=== PATIENT | male | born 1950 | race Caucasian/White ===

== ENCOUNTER 2020-03-17 13:43 | Outpatient (CLI) | payer MEDICARE, OTHER, SELFPAY ==
--- NOTE | ~2020-03-17 | CT_ITS ---
EXAMINATION: CT chest abdomen pelvis wo con DATE: 03/17/2020 14:45 INDICATION: Shortness of breath, cough, weight loss. Generalized abdominal pain. Smoker. History of COPD. History of lung and laryngeal cancer. TECHNIQUE: Computed tomography (CT) of the chest, abdomen, and pelvis was performed without intraveno us contrast. Automated exposure control and iterative reconstruction technique were employed. Exam do se: 721.17 mGy-cm total exam DLP. COMPARISON: 09/21/2018 CTA abdomen 02/15/2018 two-view chest FINDINGS: CHEST CT: Status post sternotomy. Aortic, great vessel and coronary artery calcifications. The ascending aorta measures up to approximately 4.2 cm diameter. The aortic arch and descending tho racic aorta measure 2.9 cm diameter. There is old pulmonary granulomatous disease, including calcified pulmonary, hepatic and splenic gran ulomas, calcified left hilar and mediastinal nodes. No hilar or mediastinal mass lesion or lymphadenopathy is detected. Mild right apical scarring. Mild emphysema. There is mild discoid scarring or less likely atelectasis in the left upper lobe. No pulmonary infilt rate or consolidation or suspicious pulmonary mass lesion is evident. ABDOMEN/PELVIS CT: Status post cholecystectomy. No hepatic, splenic, pancreatic, and adrenal or renal space-occupying mass lesion is evident on this limited noncontrast examination. Nonobstructing 3 mm right renal calculus. No ureteral calculus or hydroureteronephrosis. There is prominent prostate enlargement as well as some prostate calcification. There is diffuse prom inent thickening of the urinary bladder wall, likely due to prostatomegaly and associated bladder out let obstruction. The infrarenal abdominal aorta measures up to 3.7 cm diameter. There is extensive calcification of th e abdominal aorta and iliac and femoral arteries. There is prominent celiac and superior mesenteric a rtery calcification and prominent calcification of the proximal renal arteries. No intraperitoneal or retroperitoneal or pelvic mass lesion or adenopathy or ascites is evident. There is mild proximal small bowel dilatation, measuring up to 3.4 cm diameter. There is gaseous dist ention of multiple small bowel segments and some fluid levels in the mid to distal small bowel. There is a prominent amount of fecal material throughout the colon. Diffuse idiopathic skeletal hyperostosis of the thoracic spine. There is severe multilevel degenerati ve disc disease of the lumbar spine IMPRESSION: Status post sternotomy Status post cholecystectomy 4.2 cm diameter ascending aorta Mild emphysema Mild discoid atelectasis or more likely scarring Nonobstructing 3 mm right renal calculus Prostate enlargement and calcification with associated bladder wall thickening 3.7 cm infrarenal abdominal aortic aneurysm Nonspecific mild small bowel dilatation and air-fluid levels Prominent amount of fecal material throughout the colon Reviewed, dictated and finalized at [facility]. Reviewed, dictated and finalized at location B. ICAL QUALITY RN
--- NOTE | ~2020-03-17 | US_ITS ---
EXAMINATION: US venous doppler LE EXAM DATE: 03/17/2020 14:35 INDICATION: Localized left leg edema. TECHNIQUE: Multiple grayscale, color flow and Doppler images of the lower extremity deep venous syste ms bilaterally were obtained and reviewed. There is no prior study for comparison. FINDINGS: Right side: The right common femoral, femoral and profunda veins demonstrate normal color flow, respi ratory variation, augmentation and compressibility. Compressibility, color flow confirmed within the right popliteal, posterior tibial, peroneal, and greater saphenous veins. Left side: The left common femoral, femoral and profunda veins demonstrate normal color flow, respira tory variation, augmentation and compressibility. Compressibility, color flow confirmed within the l eft popliteal, posterior tibial, peroneal, and greater saphenous veins. IMPRESSION: 1. No lower extremity deep venous thrombosis bilaterally. Reviewed, dictated and finalized at location A. ORATOR OPERATOR OIL WELL
== END 2020-03-17 13:44 | disposition home or self-care (01) ==
PROVIDERS: PCP Nurse Practitioner Adult Health; Visit Provider Nurse Practitioner Adult Health
DX: R10.9 Unspecified abdominal pain (principal); R63.4 Abnormal weight loss; R60.0 Localized edema; Z90.49 Acquired absence of other specified parts of digestive tract; J43.9 Emphysema, unspecified; N20.0 Calculus of kidney; I71.4 Abdominal aortic aneurysm, without rupture; N40.0 Benign prostatic hyperplasia without lower urinary tract symptoms
CPT/HCPCS: 71250; 74176; 93971

== ENCOUNTER → 2020-08-02 05:41 | Outpatient (CLI) | payer MEDICARE, OTHER, SELFPAY ==
[2020-08-02 19:34] LABS: SARS-CoV-2 RNA PCR Negative
== END ==
PROVIDERS: PCP Nurse Practitioner Adult Health; Visit Provider Surgery
DX: Z01.812 Encounter for preprocedural laboratory examination (principal); Z20.822 Contact with and (suspected) exposure to COVID-19
CPT/HCPCS: C9803; U0003; U0005

== ENCOUNTER 2020-08-02 09:31 | Outpatient (CLI) | payer MEDICARE, OTHER, SELFPAY ==
--- NOTE | 2020-08-02 09:51 | ECG_ITS ---
Measurements Intervals [place] Rate: 71 P: 64 DE: 178 QRS: 21 QRSD: 106 T: 81 QT: 382 QTc: 416 Interpretive Statements SINUS RHYTHM ATRIAL PREMATURE COMPLEXES NONSPECIFIC T-WAVE ABNORMALITY- LAT/HIGH LAT LEADS BASELINE ARTIFACT- I, II, V5 BORDERLINE ECG Electronically Signed On 08-02-2020 11:32:56 CDT by Shady Reyes D.O.
== END 2020-08-02 09:32 | disposition home or self-care (01) ==
PROVIDERS: PCP Nurse Practitioner Adult Health; Visit Provider Anesthesiology
DX: I51.9 Heart disease, unspecified (principal); R94.31 Abnormal electrocardiogram [ECG] [EKG]
CPT/HCPCS: 93005; C9803; U0003; U0005

== ENCOUNTER 2020-08-06 01:45 | Day surgery (SDC) | payer MEDICARE, OTHER, SELFPAY ==
[2020-07-30 13:29] VITALS: BMI 22.4
--- NOTE | 2020-08-06 07:02 | WPDHPUPDATE1 ---
History and Physical Update Update Date/Time: 08/06/20 07:02 History and Physical has been reviewed, including an updated exam of the patient. There are NO changes in the patient's condition. Risks, benefits, and alternatives have been discussed and questions answered. Patient agrees to proceed with procedure.
[2020-08-06 10:27] VITALS: BP 93/53; PULSE 83; RESP 18; TEMP 37.7; O2SAT 99
[2020-08-06] MEDS: ACETAMINOPHEN 500 MG TABLET 1000 MG PO (10:55)
[2020-08-06] MEDS: KETOROLAC 15 MG/ML VIAL (*BKC) IV PUSH (11:02)
[2020-08-06] MEDS: LACTATED RINGERS 1,000 ML 30 ML IV CONT ×2 (11:03→16:23)
[2020-08-06 11:33] LABS: Hematocrit 37.3 % (42.0-52.0); Mean Corpuscular HGB Conc 34.9 g/dl (32-36); Mean Corpuscular Hemoglobin 30.8 pg (26-34); Mean Corpuscular Volume 88.4 fl (80-100); Platelet Count Result 191 k/mm3 (150-375); Red Blood Count 4.22 M/mm3 (4.6-6.20); Red Cell Distribution Width 14.3 % (11.5-14.5); White Blood Count 5.6 K/mm3 (4.5-10.0)
--- NOTE | 2020-08-06 11:35 | WPDANESEPPF ---
Anes - Initial Pre Proc Eval Procedure: Operation Date: 08/06/20 12:00 Proposed Procedures p Right Inguinal Hernia Repair - Raghav Stapleton MD Date/Time: 08/06/20 11:36 Surgeon: Raghav Stapleton MD Pre Op Diagnosis: right inguinal hernia Patient Data Age: 69 Gender: M Height: 5 ft 10 in Weight: 68.9 kg Last Vital Signs Temp 37.7 C H 08/06/20 10:27 Pulse 83 08/06/20 10:27 Resp 18 08/06/20 10:27 BP 93/53 L 08/06/20 10:27 Pulse Ox 99 08/06/20 10:27 Allergies Allergy/AdvReac Type Severity Reaction Status Date / Time atorvastatin Allergy Mild MADE ME Verified 08/06/20 10:39 SICK terbinafine Allergy Mild MADE ME Verified 08/06/20 10:39 SICK methocarbamol AdvReac Mild MADE ME Verified 08/06/20 10:39 SICK Home Medications Medication Instructions Recorded Confirmed Type acetaminophen 650 mg 650 mg PO Q12H 07/21/20 08/06/20 History tablet,extended release albuterol sulfate 90 mcg/actuation 1 inh INHALATION Q4H 07/21/20 08/06/20 History aerosol inhaler alprazolam 1 mg tablet 1 mg PO BID 07/21/20 08/06/20 History aspirin 81 mg chewable tablet 2 tablet PO DAILY 07/21/20 08/06/20 History baclofen 10 mg tablet 10 mg PO DAILY 07/21/20 08/06/20 History carvedilol 3.125 mg tablet 3.125 mg PO Q12H 07/21/20 08/06/20 History cholecalciferol (vitamin D3) 50 50 mcg PO DAILY 07/21/20 08/06/20 History mcg (2,000 unit) capsule escitalopram oxalate 20 mg tablet 20 mg PO HS 07/21/20 08/06/20 History esomeprazole magnesium 40 mg 40 mg PO DAILY 07/21/20 08/06/20 History granules delayed release for susp fluticasone fur. 100 mcg-umeclid 1 inh INHALATION DAILY 07/21/20 08/06/20 History 62.5 mcg-vilant 25 mcg inhalat.powder hydrocodone 10 mg-acetaminophen 1 tablet PO QHS PRN 07/21/20 08/06/20 History 325 mg tablet isosorbide mononitrate 60 mg 60 mg PO QAM 07/21/20 08/06/20 History tablet,extended release 24 hr levothyroxine 125 mcg capsule 125 mcg PO DAILY 07/21/20 08/06/20 History lisinopril 5 mg tablet 5 mg PO QAM 07/21/20 08/06/20 History mecobalamin (vitamin B12) 1,000 1,000 mcg PO DAILY 07/21/20 08/06/20 History mcg chewable tablet multivitamin 1 tablet PO DAILY 07/21/20 08/06/20 History nitroglycerin 400 mcg/spray 1 spray TRANSLINGUAL Q5M PRN 07/21/20 08/06/20 History translingual simvastatin 20 mg tablet 20 mg PO DAILY 07/21/20 08/06/20 History tramadol 50 mg tablet 50 mg PO Q6H PRN 07/21/20 08/06/20 History Laboratory Tests 08/06/20 11:21 WBC 5.6 K/mm3 K/mm3 (4.5-10.0) RBC 4.22 M/mm3 L M/mm3 (4.6-6.20) Hgb 13.0 g/dL L g/dL (14.0-18.0) Hct 37.3 % L % (42.0-52.0) MCV 88.4 fl fl (80-100) MCH 30.8 pg pg (26-34) MCHC 34.9 g/dl g/dl (32-36) RDW 14.3 % % (11.5-14.5) Plt Count 191 k/mm3 k/mm3 (150-375) MPV 9.0 fl fl (7.4-10.4) Patient hx anesthesia problems: none Family hx anesthesia problems: none PMFSH Past Medical History Medical History COPD (chronic obstructive pulmonary disease) GERD (gastroesophageal reflux disease) Heart disease High cholesterol History of thyroid cancer Hypertension Surgical History Surgical History History of colonoscopy History of esophagogastroduodenoscopy (EGD) History of left inguinal hernia repair [address] Dr. Stapleton Family History Family History Other Heart disease Other Family history of cardiovascular disease Social History Social History Years smoked: 40 Smoking status: Current every day smoker Tobacco type: cigarettes Second hand tobacco smoke exposure: Yes Additional smoking assessment comments: STATES 1PK/DAY/40+YRS - NOW DOWN TO 4-5 CIGARETTES/DAY Alcohol intake: former Alcohol use details: STA
--- NOTE | 2020-08-06 11:56 | SUR.PREOP ---
dr olivera aware of temp 99.9 ,ordered cbc drawn and sent.
--- NOTE | 2020-08-06 13:27 | SUR.PREOP ---
pt informed of delay of procedure.
[2020-08-06] MEDS: ceFAZolin 2 GM/D5W 50 ML 2 GM/50 ML BAG IVPB (13:47)
[2020-08-06] MEDS: BUPIVACAINE HCL 0.5% PF 30 ML VIAL 10 ML INFILTRATE (14:07)
--- NOTE | 2020-08-06 15:09 | PM.PROC ---
Procedure Note - Detailed Date of procedure: 08/06/20 Pre-op diagnosis: right inguinal hernia Right inguinal hernia Post-op diagnosis: other (Indirect hernia) Procedure performed: Repair of right inguinal hernia with 6 cm Parietex hernia mesh system Description of procedure: The patient was taken to surgery and IV sedation was administered. The right groin and genitalia were prepped and draped. Proposed incision was marked on the skin. Local was infiltrated into the skin and the deeper subcutaneous tissues. Incision was made and deepened through the subcutaneous. Crossing veins were cauterized and divided. Dissection was carried through Chris's fascia down to the external oblique aponeurosis. The aponeurosis was exposed as was the external ring. Additional local anesthesia was infiltrated deep to the aponeurosis in the area of the spermatic cord and inguinal canal contents. The aponeurosis was opened laterally and extended medially through the external ring. The leaves of the aponeurosis were dissected free from the spermatic cord. The ileoinguinal nerve was carefully preserved throughout the dissection and was left attached to the spermatic cord. The cord was then mobilized medially on a [place] drain. The cord was dissected back to the internal ring. Dissection was then carried out in the anteromedial spermatic cord. The hernia sac was found and dissected free. The sac was then dissected back to a high dissection. It was dunked into the retroperitoneum. A 6 centimeter Parietex manzanita was chosen. It was folded to form a plug. It was placed in the defect. The edges were sutured to the transversalis fascia with interrupted 3 0 Vicryl suture. The hernia defect was then partially closed with some additional 3 0 Vicryl suture. Patch was then cut to the appropriate size and placed over the inguinal canal floor. The lateral leaves were passed beyond the cord. The cord and ileoinguinal nerve were then laid over the patch. The external oblique aponeurosis was closed with interrupted 3 0 Vicryl suture. Chris's fascia was closed with interrupted 3 0 Vicryl suture. The subcutaneous was closed with interrupted 4 0 Vicryl suture. Four 0 Vicryl subcuticular skin sutures were placed. The skin was closed finally with a running 4 0 Monocryl skin suture. The wound was dressed with Exofin surgical adhesive. The patient was awakened and taken to recovery in good condition. Sponge and needle counts were correct x2. Anesthesia: MAC and local (0.5% Marcaine with Exparel) Surgeon: Raghav Stapleton MD Internet Marketing Specialist: Jimena KELLY Estimated blood loss (mL): 5 Drains: No Packing: No Pathology: none sent Complications: None Condition: stable Disposition: PACU Findings: Indirect inguinal hernia. No sliding hernia was noted.
[2020-08-06 15:10] VITALS: BP 138/70; PULSE 60; RESP 16; O2SAT 97
[2020-08-06 15:40] VITALS: BP 116/80; PULSE 58; RESP 20
[2020-08-06 16:10] VITALS: BP 114/63; PULSE 54; RESP 20
[2020-08-06] MEDS: oxyCODONE HCL (*CRX) 5 MG TAB IR PO (16:33)
[2020-08-06 16:40] VITALS: BP 122/72; PULSE 58; RESP 20
[2020-08-06 17:10] VITALS: PULSE 78; RESP 20
--- NOTE | 2020-08-06 17:20 | SUR.PHASEII ---
1715 - pt voided without difficulty
--- NOTE | 2020-08-06 18:27 | SUR.PHASEII ---
1738 - pt fall in room. dr. olivera notified. pt sent to ER
== END 2020-08-06 17:54 | disposition home or self-care (01) ==
PROVIDERS: PCP Nurse Practitioner Adult Health; Visit Provider Surgery
PROC: (CPT 49505; principal; 2020-08-06 12:00)
DX: K40.90 Unilateral inguinal hernia, without obstruction or gangrene, not specified as recurrent (principal); I11.9 Hypertensive heart disease without heart failure; E78.00 Pure hypercholesterolemia, unspecified; J44.9 Chronic obstructive pulmonary disease, unspecified; K21.9 Gastro-esophageal reflux disease without esophagitis; Z85.850 Personal history of malignant neoplasm of thyroid; F17.210 Nicotine dependence, cigarettes, uncomplicated; Z79.51 Long term (current) use of inhaled steroids; Z79.82 Long term (current) use of aspirin; Z79.891 Long term (current) use of opiate analgesic
CPT/HCPCS: 49505; 36415; 71101; 85027; 96372; 99283; A9270; C1781; C9290; J0690; J1100; J1170; J1885; J2250; J2270; J2405; J2704; J7120

== ENCOUNTER 2020-08-06 18:01 | Emergency (ER) | payer MEDICARE, OTHER, SELFPAY ==
--- NOTE | ~2020-08-06 | XR_ITS ---
EXAMINATION: [id number] INDICATION: Left chest and rib pain TECHNIQUE: A frontal view of the chest and 3 views of the left ribs were obtained. COMPARISON: None. FINDINGS: The lungs are free of acute opacities. There is no pleural effusion or pneumothorax. The he art size is normal. Median sternotomy wires and mediastinal surgical clips are seen, likely from prio r coronary artery bypass grafting. There is a minimally displaced fracture at the lateral aspect of t he left seventh rib. IMPRESSION: 1. Minimally displaced left seventh rib fracture. 2. No acute cardiopulmonary abnormality. Reviewed, dictated and finalized at location A.
[2020-08-06 18:15] VITALS: BP 173/90; PULSE 65; RESP 16; TEMP 36.6; O2SAT 98
[2020-08-06 18:22] VITALS: PULSE 66; RESP 22
[2020-08-06 18:30] VITALS: PULSE 71; RESP 29
--- NOTE | 2020-08-06 18:46 | ED.GENADULT ---
HPI - General Adult General Chief complaint: Fall Stated complaint: Fall Time Seen by Provider: 08/06/20 18:21 History of Present Illness HPI narrative: Patient is a 69-year-old male who comes to the ED today complaining of pain in left lower rib cage after a mechanical fall patient had right inguinal hernia repair earlier today. He was in the process of leaving the hospital, he was transitioning to get into his wheelchair when he slipped and fell backwards. He hit the left lower rib cage on part of the wheelchair. He did not hit his head or lose consciousness. Denies any numbness or tingling or radiating pain. The pain is made worse whenever he moves his trunk, takes deep breaths and coughs. He says his chronic shortness of breath is a little bit worse since the fall. Denies any nausea or vomiting or any other symptoms or concerns. Related Data Home Medications Medication Instructions Recorded Confirmed acetaminophen 650 mg 650 mg PO Q12H 07/21/20 08/06/20 tablet,extended release albuterol sulfate 90 mcg/actuation 1 inh INHALATION Q4H 07/21/20 08/06/20 aerosol inhaler alprazolam 1 mg tablet 1 mg PO BID 07/21/20 08/06/20 aspirin 81 mg chewable tablet 2 tablet PO DAILY 07/21/20 08/06/20 baclofen 10 mg tablet 10 mg PO DAILY 07/21/20 08/06/20 carvedilol 3.125 mg tablet 3.125 mg PO Q12H 07/21/20 08/06/20 cholecalciferol (vitamin D3) 50 50 mcg PO DAILY 07/21/20 08/06/20 mcg (2,000 unit) capsule escitalopram oxalate 20 mg tablet 20 mg PO HS 07/21/20 08/06/20 esomeprazole magnesium 40 mg 40 mg PO DAILY 07/21/20 08/06/20 granules delayed release for susp fluticasone fur. 100 mcg-umeclid 1 inh INHALATION DAILY 07/21/20 08/06/20 62.5 mcg-vilant 25 mcg inhalat.powder hydrocodone 10 mg-acetaminophen 1 tablet PO QHS PRN 07/21/20 08/06/20 325 mg tablet isosorbide mononitrate 60 mg 60 mg PO QAM 07/21/20 08/06/20 tablet,extended release 24 hr levothyroxine 125 mcg capsule 125 mcg PO DAILY 07/21/20 08/06/20 lisinopril 5 mg tablet 5 mg PO QAM 07/21/20 08/06/20 mecobalamin (vitamin B12) 1,000 1,000 mcg PO DAILY 07/21/20 08/06/20 mcg chewable tablet multivitamin 1 tablet PO DAILY 07/21/20 08/06/20 nitroglycerin 400 mcg/spray 1 spray TRANSLINGUAL Q5M PRN 07/21/20 08/06/20 translingual simvastatin 20 mg tablet 20 mg PO DAILY 07/21/20 08/06/20 tramadol 50 mg tablet 50 mg PO Q6H PRN 07/21/20 08/06/20 Allergies Allergy/AdvReac Type Severity Reaction Status Date / Time atorvastatin Allergy Mild MADE ME Verified 08/06/20 18:59 SICK terbinafine Allergy Mild MADE ME Verified 08/06/20 18:59 SICK methocarbamol AdvReac Mild MADE ME Verified 08/06/20 18:59 SICK Review of Systems Constitutional: Constitutional: Reports as per HPI, Denies fever(s), Denies night sweats and Denies weakness Cardiovascular: Cardiovascular: Denies chest pain, Denies edema, Denies leg edema, Denies dyspnea and Denies orthopnea Respiratory: Respiratory: Denies cough and Denies dyspnea Gastrointestinal: Gastrointestinal: Denies abdominal pain, Denies constipation, Denies diarrhea, Denies nausea and Denies vomiting Musculoskeletal: Musculoskeletal: Reports as per HPI Comments: See HPI for left lower rib pain Neurologic: Denies Abnormal speech present, Denies abnormal gait, Denies numbness, Denies tingling and Denies weakness Psychiatric: Psychiatric: Denies homicidal ideation and Denies suicidal ideation [facility] Past Medical History Medical History COPD (chronic obstructive pulmonary disease) GERD (gastroesophageal reflux disease) Heart disease High cholesterol History of thyroid cancer Hypertension Surgical History Surgical History History of colonoscopy History of esophagogastroduodenoscopy (EGD) History of left inguinal hernia repair 2019 Dr. Stapleton Family History Family History (Reviewed 08/06/20 @ 1
[2020-08-06 18:59] VITALS: PULSE 66; RESP 17
[2020-08-06 19:15] VITALS: BP 138/98; PULSE 75; RESP 16; O2SAT 93
[2020-08-06] MEDS: MORPHINE SULFATE (*CRX) 4 MG/ML INJ IM (19:15)
[2020-08-06 20:41] VITALS: BP 125/88; PULSE 74; RESP 20; O2SAT 98
== END 2020-08-06 20:41 | disposition home or self-care (01) ==
PROVIDERS: Emergency Provider Emergency Medicine; PCP Nurse Practitioner Adult Health
DX: S22.32XA Fracture of one rib, left side, initial encounter for closed fracture (principal); J44.9 Chronic obstructive pulmonary disease, unspecified; I11.9 Hypertensive heart disease without heart failure; K21.9 Gastro-esophageal reflux disease without esophagitis; E78.00 Pure hypercholesterolemia, unspecified; Z85.850 Personal history of malignant neoplasm of thyroid; F17.210 Nicotine dependence, cigarettes, uncomplicated; Z79.82 Long term (current) use of aspirin; Z98.890 Other specified postprocedural states; W01.198A Fall on same level from slipping, tripping and stumbling with subsequent striking against other object, initial encounter
CPT/HCPCS: 99283; 71101; 96372; J2270

== ENCOUNTER 2020-08-18 14:52 | Outpatient (CLI) | payer MEDICARE, OTHER, SELFPAY ==
--- NOTE | ~2020-08-18 | XR_ITS ---
XR forearm RT 2V DATE: 08/18/2020 15:18 INDICATION: Injury 2 weeks ago. Right wrist pain. TECHNIQUE: AP and lateral views COMPARISON: None FINDINGS: There is diffuse osteopenia. No fracture or dislocation, periosteal reaction or bone destr uction. Prominent osteoarthritis at the first carpometacarpal joint. IMPRESSION: Osteopenia No fracture or dislocation ]Osteoarthritis at first carpometacarpal joint Reviewed, dictated and finalized at location A.
--- NOTE | ~2020-08-18 | XR_ITS ---
XR wrist RT 2V DATE: 08/18/2020 15:18 INDICATION: Injury 2 weeks ago. Right wrist pain. TECHNIQUE: AP and lateral views COMPARISON: 08/18/2020 right forearm FINDINGS: Diffuse osteopenia. There is prominent osteoarthritic change at the first carpometacarpal joint. There is suspicion of distal radial metaphyseal nondisplaced fracture. Complete 4 view right wrist ra diographic examination is recommended. IMPRESSION: Nondisplaced distal radial metaphyseal fracture is suspected Full 4 view right wrist radiographic examination is recommended, with immediate radiologist review Reviewed, dictated and finalized at location A.
== END 2020-08-18 14:53 | disposition home or self-care (01) ==
PROVIDERS: PCP Nurse Practitioner Adult Health; Visit Provider Surgery
DX: S52.591A Other fractures of lower end of right radius, initial encounter for closed fracture (principal); X58.XXXA Exposure to other specified factors, initial encounter; M85.831 Other specified disorders of bone density and structure, right forearm
CPT/HCPCS: 73090; 73100

== ENCOUNTER 2020-08-21 16:33 | Outpatient (CLI) | payer MEDICARE, OTHER, SELFPAY ==
--- NOTE | ~2020-08-21 | XR_ITS ---
EXAMINATION: XR wrist RT min 3V DATE: 08/21/2020 16:53 INDICATION: Right wrist pain at the base of the thumb post fall a few weeks prior. TECHNIQUE: Posteroanterior, ulnar deviation, oblique, and lateral views of the right wrist were obtai stan. COMPARISON: 08/18/2020 FINDINGS: There is slight dorsal tilt of the distal articular surface of the radius without evident acute fract ure line which suggests this represents sequela of an old healed fracture. Alignment is otherwise nor mal. No other lesions suspicious for fracture identified. Moderate osteoarthritis at the first carpom etacarpal joint with prominent subchondral cystic change at the base of the first metacarpal. Mild os teoarthritis at the wrist, first carpometacarpal and first metacarpophalangeal joints. IMPRESSION: 1. Moderate osteoarthritis with prominent likely degenerative subchondral cystic change at the base o f the first metacarpal. No acute osseous abnormality. Reviewed, dictated and finalized at location A. IMPRESSION: 1. Moderate osteoarthritis with prominent likely degenerative subchondral cysti c change at the base of the first metacarpal. No acute osseous abnormality.
== END 2020-08-21 16:34 | disposition home or self-care (01) ==
LOC: ANHIMG 16:37
PROVIDERS: PCP Nurse Practitioner Adult Health; Visit Provider Surgery
DX: M19.031 Primary osteoarthritis, right wrist (principal)
CPT/HCPCS: 73110

== ENCOUNTER 2021-03-20 21:09 | Inpatient (IN) | payer MEDICARE, OTHER, SELFPAY ==
--- NOTE | ~2021-03-20 | CT_ITS ---
EXAMINATION: CTA chest PE protocol DATE: 03/20/2021 22:33 INDICATION: Shortness of breath and weakness TECHNIQUE: Computed tomography (CT) pulmonary angiogram of the chest was performed with 100 mL Omnipa que-350 intravenous contrast. Additional 3D reconstructions utilizing coronal maximum intensity proje ction (MIP) were performed. Automated exposure control and iterative reconstruction technique were em ployed. The dose-length product was 219.61 mGy-cm. COMPARISON: None FINDINGS: Excellent contrast opacification of the pulmonary arteries. There is mild streak artifact from dense contrast in the superior vena cava and right atrium. Mild scattered respiratory motion artifact. Over all this only mildly decreases sensitivity in some of the smaller subsegmental pulmonary arteries. No pulmonary embolism. Mild emphysema. Subtle tree-in-bud opacities in the superior segment of the righ t lower lobe consistent with endobronchial spread of disease. There is mucous plugging within several bilateral lower lobar bronchi. No pulmonary edema, pleural effusion or pneumothorax. Heart size is n ormal. Atherosclerotic coronary artery calcifications. Postoperative change of prior median sternotom y and coronary artery bypass grafting. Fusiform ascending thoracic aortic aneurysm measuring 4.2 x 4. 1 cm in maximal diameter. No aortic dissection. A few calcified mediastinal lymph nodes consistent wi th old granulomatous disease. No pathologically enlarged thoracic lymphadenopathy. Cholecystectomy cl ips at the gallbladder fossa. A few hepatic and splenic calcific lesions consistent with old granulom atous disease. Gaseous distention of the visualized transverse and sigmoid colon. There are bridging osteophytes at multiple levels in the spine, consistent with diffuse idiopathic skeletal hyperostosis (DISH). IMPRESSION: 1. No pulmonary embolism. 2. Emphysema with it is supporting the bilateral lower lobe bronchi and tree-in-bud opacities in the superior segment of the right lower lobe consistent with bronchiolitis/early pneumonia. 3. 4.2 cm ascending thoracic aortic aneurysm. Reviewed, dictated and finalized at location A. [employer] IMPRESSION: 1. No pulmonary embolism. 2. Emphysema with it is supporting the bilateral lower lobe bronchi and tree-in -bud opacities in the superior segment of the right lower lobe consistent with bronchiolitis/early pneumonia. 3. 4.2 cm ascending thoracic aortic aneurysm.
[2021-03-20 21:10] VITALS: BP 154/89; PULSE 82; RESP 18; TEMP 37; O2SAT 100
--- NOTE | 2021-03-20 21:17 | ECG_ITS ---
Measurements Intervals [place] Rate: 75 P: 72 [place]: 184 QRS: 28 QRSD: 102 T: 80 QT: 422 QTc: 472 Interpretive Statements SINUS RHYTHM FREQUENT ATRIAL PREMATURE COMPLEXES BORDERLINE T WAVE ABNORMALITY- ANTEROLAT/HIGH LAT LEADS BASELINE ARTIFACT- AVR, AVF, V1-V5 ABNORMAL ECG Electronically Signed On 03-21-2021 7:57:51 STEWARDESS SUPERVISOR by Shady Reyes D.O.
[2021-03-20 21:30] LABS: Basophils Percent Auto 0.4 % (0.2-1.2); Eosinophils Absolute Auto 0.1 K/mm3 (0-0.3); Eosinophils Percent Auto 1.1 % (0-4.4); Hematocrit 40.8 % (42.0-52.0); Hemoglobin 14.5 g/dL (14.0-18.0); Immature Granulocyte Absolute 0.01 K/mm3 (0.00-0.031); Immature Granulocyte Percent A 0.1 % (0-0.5); Lymphocytes Absolute Auto 1.25 K/mm3 (0.9-3.2); Lymphocytes Percent Auto 17.6 % (18.3-44.2); Mean Corpuscular HGB Conc 35.5 g/dl (32-36); Mean Corpuscular Hemoglobin 30.6 pg (26-34); Mean Corpuscular Volume 86.1 fl (80-100); Mean Platelet Volume 8.7 fl (7.4-10.4); Monocytes Absolute Auto 0.6 K/mm3 (0.1-0.6); Monocytes Percent Auto 8.7 % (2.6-8.5); Neutrophils Absolute Auto 5.1 K/mm3 (1.3-6.7); Neutrophils Percent Auto 72.1 % (45.5-73.1); Platelet Count Result 219 k/mm3 (150-375); Red Blood Count 4.74 M/mm3 (4.6-6.20); Red Cell Distribution Width 14.8 % (11.5-14.5); White Blood Count 7.1 K/mm3 (4.5-10.0)
--- NOTE | 2021-03-20 21:38 | ED.SOB ---
HPI - SOB/Dyspnea General Chief Complaint: Shortness of Breath/Dyspnea Stated Complaint: ?COPD Time Seen by Provider: 03/20/21 21:20 Source: patient History of Present Illness HPI Narrative: Patient Reed with shortness of breath and cough. Reports he always has shortness of breath and cough her pills worse over the past couple days. Reports he has not been using his COPD inhaler as he has been running low. Reports sensation of not getting enough air. He has not noted fevers at home he does report mild chest pain with deep inspiration but no chest pain at rest. Ports he gets short of breath with physical activity. His cough is nonproductive. Denies abdominal pain, nausea, vomiting. Does not have known sick contacts. Related Data Home Medications Medication Instructions Recorded Confirmed acetaminophen 650 mg 650 mg PO Q12H 07/21/20 09/04/20 tablet,extended release albuterol sulfate 90 mcg/actuation 1 inh INHALATION Q4H 07/21/20 09/04/20 aerosol inhaler alprazolam 1 mg tablet 1 mg PO BID 07/21/20 09/04/20 aspirin 81 mg chewable tablet 2 tablet PO DAILY 07/21/20 09/04/20 baclofen 10 mg tablet 10 mg PO DAILY 07/21/20 09/04/20 cholecalciferol (vitamin D3) 50 50 mcg PO DAILY 07/21/20 09/04/20 mcg (2,000 unit) capsule escitalopram oxalate 20 mg tablet 20 mg PO HS 07/21/20 09/04/20 esomeprazole magnesium 40 mg 40 mg PO DAILY 07/21/20 09/04/20 granules delayed release for susp fluticasone fur. 100 mcg-umeclid 1 inh INHALATION DAILY 07/21/20 09/04/20 62.5 mcg-vilant 25 mcg inhalat.powder levothyroxine 125 mcg capsule 125 mcg PO DAILY 07/21/20 09/04/20 mecobalamin (vitamin B12) 1,000 1,000 mcg PO DAILY 07/21/20 09/04/20 mcg chewable tablet multivitamin 1 tablet PO DAILY 07/21/20 09/04/20 nitroglycerin 400 mcg/spray 1 spray TRANSLINGUAL Q5M PRN 07/21/20 09/04/20 translingual simvastatin 20 mg tablet 20 mg PO DAILY 07/21/20 09/04/20 tramadol 50 mg tablet 50 mg PO Q6H PRN 07/21/20 09/04/20 Allergies Allergy/AdvReac Type Severity Reaction Status Date / Time atorvastatin Allergy Mild MADE ME Verified 03/20/21 21:17 SICK terbinafine Allergy Mild MADE ME Verified 03/20/21 21:17 SICK methocarbamol AdvReac Mild MADE ME Verified 03/20/21 21:17 SICK Review of Systems Review of Systems: CONSTITUTIONAL: Denies fever, chills, or sweats. EYES: Denies visual changes, redness, or discharge. ENT: Denies rhinorrhea, congestion, sore throat, or otalgia. CARDIOVASCULAR: Denies palpitations, or edema. RESPIRATORY: Reports shortness of breath and cough GASTROINTESTINAL: Denies abdominal pain, nausea, vomiting, or diarrhea. GENITOURINARY: Denies dysuria or hematuria. SKIN: Denies rash or itching. MUSCULOSKELETAL: Denies back pain, joint pain, or myalgia. NEUROLOGIC: Denies headache, numbness, dizziness, or weakness. PSYCHIATRIC: Denies anxiety or depression. All systems reviewed & are unremarkable except as noted in HPI and below PMFSH Past Medical History Medical History COPD (chronic obstructive pulmonary disease) GERD (gastroesophageal reflux disease) Heart disease High cholesterol History of thyroid cancer Hypertension Surgical History Surgical History H/O right inguinal hernia repair Repair of right inguinal hernia with 6 cm Parietex hernia mesh system History of colonoscopy History of esophagogastroduodenoscopy (EGD) History of left inguinal hernia repair 2019 Dr. Stapleton Family History Family History Other Heart disease Other Family history of cardiovascular disease Social History Social History Years smoked: 40 Smoking status: Current every day smoker Tobacco type: cigarettes Second hand tobacco smoke exposure: Yes Additional smoking assessment comments: STAT
[2021-03-20 21:40] LABS: Alanine Aminotransferase 22 U/L (4-50); Albumin Level 4.4 g/dL (3.5-5.1); Alkaline Phosphatase 87 U/L (38-126); Anion Gap 4 mmol/L (8-16); Aspartate Amino Transferase 31 U/L (17-59); Bilirubin,Total 0.9 mg/dL (0.2-1.3); Blood Urea Nitrogen 6 mg/dL (9-20); Calcium 9.4 mg/dL (8.4-10.2); Carbon Dioxide 31 mmol/L (22-30); Chloride 89 mmol/L (98-107); Estimated Glomerular Filt Rate > 60; Glucose 117 mg/dL (65-110); Potassium 3.6 mmol/L (3.4-5.0); Sodium 124 mmol/L (137-145)
[2021-03-20] MEDS: methylPREDNISolone SOD SUCC 125 MG VIAL IV PUSH (21:49)
[2021-03-20 22:02] VITALS: PULSE 80; RESP 15
[2021-03-20 22:02] LABS: NT Pro B Type Natriuretic Pept 96 pg/mL (5-100); Troponin I < 0.012 ng/mL (0.000-0.034)
[2021-03-20] MEDS: ALBUTEROL SULFATE NEB 2.5 MG/0.5 ML INH 5 MG INHALATION ×2 (22:02→23:01)
[2021-03-20] MEDS: IPRATROPIUM BR 0.02% INH SOLN 0.5 MG/2.5 ML VIAL INHALATION ×2 (22:02→23:01)
[2021-03-20 22:08] LABS: Alveolar/Arterial O2 Gradient 41.2 mmHg; Base Excess ABG 1.8 mEq/l (+/-2.0); Device ROOM AIR; Fractional Inspired Oxygen 21 %; HCO3 ABG 25.7 mEq/l (22.0-26.0); Modified Allen's Test Pass; Oxygen Content ABG 18.4 %vol (16.0-22.0); Oxygen Saturation ABG 93.3 % (95.0-100.0); Oxyhemoglobin 91.1 % THb (90.0-100.0); PCO2 ABG 37.7 mmHg (35.0-45.0); PO2 ABG 63.4 mmHg (80.0-100.0); PO2 FiO2 Ratio Arterial Blood 3.02 %; Site Drawn RIGHT RADIAL; Total Hemoglobin 14.4 g/dL (12.0-18.0); pH ABG 7.451 (7.350-7.450)
[2021-03-20 22:09] VITALS: PULSE 85; RESP 20
[2021-03-20] MEDS: ALBUTEROL SULFATE NEB 2.5 MG/0.5 ML INH (23:01)
[2021-03-20 23:07] VITALS: PULSE 74; RESP 16
[2021-03-20 23:12] VITALS: PULSE 73; RESP 12
[2021-03-20 23:31] VITALS: BP 125/86; PULSE 82; RESP 20; O2SAT 100
[2021-03-21] VITALS (9 sets, daily range): BP systolic 104–127; BP diastolic 63–79; PULSE 70–90; RESP 16–20; TEMP 36.6–37.1; O2SAT 94–100; BMI 22.1
[2021-03-21] MEDS: SODIUM CHLORIDE 0.9% IV 500 ML 999 ML IV CONT (00:41)
[2021-03-21] MEDS: SODIUM CHLORIDE 0.9% IV 1,000 ML 125 ML IV CONT ×3 (02:48→20:39)
[2021-03-21] MEDS: ALPRAZolam (*CRX) 0.5 MG TABLET 1 MG PO ×2 (02:48→08:18)
--- NOTE | 2021-03-21 03:10 | ADMGEN ---
This patient, Cecilio Bergeron, was admitted to Medical Room 241-01. Patient/family oriented to hospital policies and general routines including ID bracelet, bed and alarms, visiting hours, pain management, procedures, bathroom and other care routines, personal items, smoking policy, room service/diet, and visiting hours. Information on how to activate the Rapid Response Team has been discussed. Patient/Family are encouraged to report perceived risks to care and to ask questions if they do not understand what they are told or what they should do.
--- NOTE | 2021-03-21 05:25 | PM.IMHP ---
H&P: HPI History of Present Illness Date/Time: 03/21/21 05:25 Chief Complaint: Shortness of breath and weakness Narrative: 70-year-old male with past medical history of coronary artery disease status post CABG, lung cancer status post resection, thyroid cancer status post chemo and radiation and COPD with continued tobacco use who presented to the ER from home via EMS with cough and shortness of breath. He reports that he always has fluctuating symptoms of being cold and hot. Over the last 3 days he has had increasing symptoms of feeling overwhelmingly warm and having trouble breathing. It is been accompanied by increasing cough. On EMS arrival to the patient's home he was satting 88% on room air however when he arrived to the ER he is actually satting 96% on room air and has not required any oxygen since that time. He reports that usually his cough he is able to produce sputum especially if he stands up. He has developed such as dry mouth and is mucus has become so thick that he cannot cough the sputum up like he usually can. He reports that his mouth is severely dry. He does admit that he does not make food the way he should and has not been eating and drinking enough nutritious meals. He also has not been using his inhalers as directed as he has been running low on them. His shortness of breath is worse with activity. He has a sensation of not being able to get enough air. He does have some chest tightness when he tries to take a deep inspiration. He reports feeling that when he eats his stomach will get full and push up into his lungs and he has trouble breathing. He will often have to stand up to finished his his meal so he has room for the food. He reports that a couple of years ago he weighed 170 lb. When he last went to his senior administrative support a couple of months ago he weighed 152 lb which is approximately with patient is weighing currently. While in the ER the patient initially agreed to be discharged home with oral antibiotics as the patient was on room air in it was in no distress. But prior to being discharged from the ER the patient's son-in-law mention and concerned that the patient is having a hard time getting around. The patient has been progressively weaker for several months. He has frequently been cancelling physician appointments cuts he does not feel up to going. He feels unsafe at home alone even with his Life Alert button. He states does not get many visitors. He reports that he had hates to call any family members or friends to ask for assistance. The patient admits that he is depressed. The patient reports that he ambulates with a walker due to his chronic neck and back pain. Review of Systems Review of Systems: 12 systems were reviewed with pertinent positives and negatives per HPI. Except as documented in the HPI, all other systems were reviewed and are negative. [facility] Past Medical History Medical History (Updated 03/21/21 @ 07:19 by Milly Lazaro DO) Basal cell carcinoma COPD (chronic obstructive pulmonary disease) Coronary artery disease Dr. Mane GERD (gastroesophageal reflux disease) High cholesterol History of thyroid cancer Treated with chemotherapy and radiation Hypertension Hypothyroidism Lung cancer Status post right upper lobe pneumonectomy Peripheral neuropathy Surgical History Surgical History (Updated 03/21/21 @ 05:33 by Milly Lazaro DO) H/O right inguinal hernia repair (08/06/20) Repair of right inguinal hernia with 6 cm Parietex hernia mesh system History of bilateral carpal tunnel release History of colonoscopy History of coronary angioplasty History of esophagogastroduodenoscopy (EGD) 2006 History of hemorrhoidectomy History of left inguinal hernia repair (11/2018) With 8 cm of [address]ex mesh dr. Stapleton History of medial meniscus repair of right knee (~2005) History of pneumonectomy (~2014) Right upper lobe due to lung cancer History of ventral hernia repair (~06/2006) Ga
[2021-03-21] MEDS: LEVOTHYROXINE SODIUM 125 MCG TABLET PO (06:57)
[2021-03-21 07:07] LABS: Add Urine Microscopic? YES; Appearance Urine Cloudy (Clear); Bilirubin Urine Negative (Negative); Blood Urine Negative (Negative); Color Urine Yellow (Yellow); Glucose Urine UA Negative (Negative); Ketones Urine Trace mg/dL (Negative); Leukocyte Esterase Ur Negative LEU/UL (Negative); Nitrate Urine Negative (Negative); Protein Urine Negative (Negative); Specific Grav Ur 1.023 (1.001-1.035); Urobilinogen Urine Negative mg/dL (<2.0); WBC Urine 0-3 /hpf
[2021-03-21 07:20] LABS: Hematocrit 35.4 % (42.0-52.0); Hemoglobin 12.7 g/dL (14.0-18.0); Mean Corpuscular HGB Conc 35.9 g/dl (32-36); Mean Corpuscular Hemoglobin 30.6 pg (26-34); Mean Corpuscular Volume 85.3 fl (80-100); Platelet Count Result 195 k/mm3 (150-375); Red Blood Count 4.15 M/mm3 (4.6-6.20); Red Cell Distribution Width 14.8 % (11.5-14.5); White Blood Count 4.4 K/mm3 (4.5-10.0)
[2021-03-21 07:33] LABS: Anion Gap 6 mmol/L (8-16); Blood Urea Nitrogen 6 mg/dL (9-20); Carbon Dioxide 26 mmol/L (22-30); Chloride 93 mmol/L (98-107); Estimated CRCL calculation 117 ml/min; Estimated Glomerular Filt Rate > 60; Glucose 128 mg/dL (65-110); Potassium 3.5 mmol/L (3.4-5.0); Sodium 125 mmol/L (137-145)
[2021-03-21] MEDS: SIMVASTATIN 20 MG TABLET PO (08:18)
[2021-03-21] MEDS: BACLOFEN 10 MG TABLET PO (08:18)
--- NOTE | 2021-03-21 09:34 | PC.NURSE ---
[facility] called & asked re: Pt Rx for Azithromycin & Prednisone that transmitted to them last night. They requested to hold these prescriptions for now since patient is currently admitted and getting them inpatient. They will await discharge to reassess the need to fill the medications that will be ordered in the future.
--- NOTE | 2021-03-21 10:00 | PM.IMPN ---
Progress Note: A&P Assessment and Plan (1) Right lower lobe pneumonia: Code(s): J18.9 - Pneumonia, unspecified organism Status: Acute Assessment and Plan: Community acquired pneumonia likely due to most common organisms S. pneumonia, H. influenzae, M. catarrhalis, S. aureus, Klebsiella, mycoplasma, etc. Will give coverage for typical and atypical organisms augmentin (due to COPD) and azithromycin. -Augmentin 875 mg BID day 1/5 -Azithromycin 500 mg daily day 1/3 -Mucomyst for secretions at bases per RT (2) Hyponatremia: Code(s): E87.1 - Hypo-osmolality and hyponatremia Status: Acute Assessment and Plan: Likely due to pneumonia w/ no lesions noted on CTA chest. Urine sodium and osms are pending. -F/U urine studies (3) Anemia: Code(s): D64.9 - Anemia, unspecified Status: Acute Assessment and Plan: Persistent since last hospital visit. Likely due to dietary reasons. -Iron studies -Vitamin b12 and folate (4) Self-care deficit in patient living alone: Code(s): Z78.9 - Other specified health status Status: Acute Assessment and Plan: Patient has difficult time managing alone, especially with a poor diet due to lack of transportation. -Appreciate care coordination -PT/OT (5) Weakness: Code(s): R53.1 - Weakness Status: Acute Assessment and Plan: Likely due to hyponatremia as well as poor conditioning and poor diet. TSH within range and CBC w/ anemia. Low suspicion but will rule out autoimmune causes. -Creatine Kinase -DARIN -CRP -ESR -aldolase -anti Ro/SSA, anti-La/SSB, anti rodriguez, anti MUD GRINDER (6) Protein calorie malnutrition: Code(s): E46 - Unspecified protein-calorie malnutrition Status: Acute Assessment and Plan: As noted patient has difficulty accessing nutritious foods. -Dietary consult Subjective Date/time seen: 03/21/21 10:00 Date of Service 03/21/2021 Patient says he feels better overall. Denies shortness of breath or worsening difficulty breathing. Endorses some urinary hesitancy. Says he does still feel weak and has not been maintaining a good diet since his niece who used to bring him food of COVID 19 in June. He has difficulty chewing meats and says his brother mainly brings him soups. Denies financial difficulty getting groceries but says he does not have transportation. Review of Systems Constitutional: Constitutional: Denies poor appetite and Reports weakness Respiratory: Respiratory: Reports cough, Denies dyspnea and Denies wheezing Exam Narrative: GENERAL: NAD, cooperative HEENT: Normocephalic, atraumatic, anicteric, nares clear, oropharynx moist and clear, partial dentures on bottom and complete on top. NECK: Supple CV: Normal S1, S2, RRR, No MRG RESP: Rhonchi throughout. Poor air movement. No wheezes or crackles. Abdomen: Soft, non-tender, non-distended, +BS EXTREMITIES: Warm and well perfused, no clubbing, cyanosis, or edema. SKIN: warm, dry and intact. NEURO:CN 2-12 grossly intact. Objective Data Vital Signs Vital Signs: Vital Signs - 24 hr 03/20/21 21:10 03/20/21 22:02 03/20/21 22:09 Temperature 98.6 F Pulse Rate 82 80 85 Respiratory Rate 18 15 20 Blood Pressure 154/89 H Pulse Oximetry 100 03/20/21 23:07 03/20/21 23:12 03/20/21 23:31 Temperature Pulse Rate 74 73 82 Respiratory Rate 16 12 20 Blood Pressure 125/86 Pulse Oximetry 100 03/21/21 00:34 03/21/21 01:47 03/21/21 02:54 Temperature Pulse Rate 86 85 86 Respiratory Rate 18 18 18 Blood Pressure 125/79 127/78 118/75 Pulse Oximetry 94 97 100 03/21/21 03:51 Temperature 98.8 F Pulse Rate 90 Respiratory Rate 20 Blood Pressure 123/70 Pulse Oximetry 98 Intake/Output Intake/Output: Intake & Output 03/18/21 03/19/21 03/20/21 03/21/21 23:59 23:59 23:59 23:59 Intake Total 1000 Output Total 900 Balance 100 Meds/Results Medications: Ac
[2021-03-21] MEDS: AMOXICILLIN/CLAVULANATE K 875-125 MG TAB 1 TABLET PO ×2 (10:32→20:40)
[2021-03-21] MEDS: FLUTICASONE/UMECLIDIN/VILANTER 100-62.5-25 MCG ELLIPTA 1 PUFF INHALATION (10:33)
[2021-03-21] MEDS: ASPIRIN 81 MG CHEWABLE TABLET 162 MG PO (10:33)
[2021-03-21] MEDS: ALBUTEROL SULFATE NEB 2.5 MG/0.5 ML INH 5 MG INHALATION (18:04)
[2021-03-21] MEDS: IPRATROPIUM BR 0.02% INH SOLN 0.5 MG/2.5 ML VIAL INHALATION (18:04)
[2021-03-21] MEDS: ACETYLCYSTEINE 20% INHAL SOLN 800 MG/4 ML VIAL 200 MG INHALATION (18:04)
[2021-03-21 20:08] LABS: Anion Gap 2 mmol/L (8-16); Blood Urea Nitrogen 8 mg/dL (9-20); Calcium 9.3 mg/dL (8.4-10.2); Carbon Dioxide 29 mmol/L (22-30); Chloride 98 mmol/L (98-107); Estimated CRCL calculation 117 ml/min; Estimated Glomerular Filt Rate > 60; Glucose 104 mg/dL (65-110); Potassium 3.3 mmol/L (3.4-5.0); Sodium 129 mmol/L (137-145)
[2021-03-21] MEDS: AZITHROMYCIN 250 MG TABLET 500 MG PO (20:40)
[2021-03-21] MEDS: ESCITALOPRAM OXALATE 10 MG TABLET 20 MG PO (20:40)
[2021-03-22] VITALS (11 sets, daily range): BP systolic 116–134; BP diastolic 60–72; PULSE 58–76; RESP 16–22; TEMP 36.3–36.9; O2SAT 93–97
[2021-03-22] MEDS: ACETYLCYSTEINE 20% INHAL SOLN 800 MG/4 ML VIAL 200 MG INHALATION ×4 (02:01→21:43)
[2021-03-22] MEDS: ALBUTEROL SULFATE NEB 2.5 MG/0.5 ML INH 5 MG INHALATION ×3 (02:02→21:44)
[2021-03-22] MEDS: IPRATROPIUM BR 0.02% INH SOLN 0.5 MG/2.5 ML VIAL INHALATION ×3 (02:02→21:44)
[2021-03-22 06:21] LABS: Anion Gap 4 mmol/L (8-16); Blood Urea Nitrogen 9 mg/dL (9-20); CRP < 0.5 mg/dL (<1.0); Calcium 8.7 mg/dL (8.4-10.2); Carbon Dioxide 26 mmol/L (22-30); Chloride 100 mmol/L (98-107); Creatine Kinase 159 U/L (55-170); Estimated CRCL calculation 117 ml/min; Estimated Glomerular Filt Rate > 60; Glucose 95 mg/dL (65-110); Potassium 3.4 mmol/L (3.4-5.0); Sodium 130 mmol/L (137-145)
[2021-03-22] MEDS: SODIUM CHLORIDE 0.9% IV 1,000 ML 125 ML IV CONT (06:30)
[2021-03-22] MEDS: LEVOTHYROXINE SODIUM 125 MCG TABLET PO (06:30)
[2021-03-22 06:32] LABS: Iron 51 ug/dL (49-181)
[2021-03-22 06:42] LABS: Percent Iron Saturation 16 % (20-50)
[2021-03-22 07:21] LABS: Erythrocyte Sedimentation Rate 14 mm/hr (0-20)
[2021-03-22 07:32] LABS: Folic Acid 13.2 ng/mL (2.76->20); Vitamin B12 > 1000.0 pg/mL (239-931)
--- NOTE | 2021-03-22 07:47 | PM.IMPN ---
Progress Note: A&P Assessment and Plan (1) Right lower lobe pneumonia: Code(s): J18.9 - Pneumonia, unspecified organism Status: Acute Assessment and Plan: Community acquired pneumonia likely due to most common organisms S. pneumonia, H. influenzae, M. catarrhalis, S. aureus, Klebsiella, mycoplasma, etc. Will give coverage for typical and atypical organisms augmentin (due to COPD) and azithromycin. -Augmentin 875 mg BID day 2/5 -Azithromycin 500 mg daily day 2/3 -Mucomyst for secretions at bases per RT (2) Hyponatremia: Code(s): E87.1 - Hypo-osmolality and hyponatremia Status: Acute Assessment and Plan: Overall this is improving. Likely due to pneumonia vs poor nutrition. No lesions noted on CTA chest. Urine sodium 18. Urine osmolality are pending as a send out. -F/U urine studies (3) Anemia: Code(s): D64.9 - Anemia, unspecified Status: Acute Assessment and Plan: Iron studies c/w iron deficiency anemia. Folate normal and b12 elevated. -Ferrous gluconate 324 mg q24h (4) Self-care deficit in patient living alone: Code(s): Z78.9 - Other specified health status Status: Acute Assessment and Plan: Patient has difficult time managing alone, especially with a poor diet due to lack of transportation. Has been accepted for home health, which will be initiated mid week. -PT/OT (5) Weakness: Code(s): R53.1 - Weakness Status: Acute Assessment and Plan: Likely due to hyponatremia as well as poor conditioning and poor diet. TSH within range and CBC w/ anemia. Inflammatory markers normal. Autoimmune labs pending. -F/U pending autoimmune labs. (6) Protein calorie malnutrition: Code(s): E46 - Unspecified protein-calorie malnutrition Status: Acute Assessment and Plan: As noted patient has difficulty accessing nutritious foods. -Ensure with meals Subjective Date/time seen: Date of service 03/22/21 07:47 Patient expresses that he is uncomfortable as he accidentally urinated on the clothes he would need to wear when discharged. Patient says he does not want to go home today as he will have difficulty arranging transportation and getting clean clothes. Patient denies shortness of breath, chest pain or difficulty breathing. Exam Narrative: GENERAL: NAD, cooperative HEENT: Normocephalic, atraumatic, anicteric, nares clear, oropharynx moist and clear, partial dentures on bottom and complete on top. NECK: Supple CV: Normal S1, S2, RRR, No MRG RESP: Poor air movement but otherwise clear. Abdomen: Soft, non-tender, non-distended, +BS EXTREMITIES: Warm and well perfused, no clubbing, cyanosis, or edema. SKIN: warm, dry and intact. NEURO:CN 2-12 grossly intact. Objective Data Vital Signs Vital Signs: Vital Signs - 24 hr 03/21/21 14:00 03/21/21 18:07 03/21/21 18:09 Temperature 98 F Pulse Rate 70 72 Respiratory Rate 16 20 Blood Pressure 126/63 Pulse Oximetry 94 94 03/21/21 18:15 03/21/21 22:00 03/22/21 02:06 Temperature 98.3 F Pulse Rate 80 74 74 Respiratory Rate 18 16 18 Blood Pressure 104/74 Pulse Oximetry 94 Intake/Output Intake/Output: Intake & Output 03/19/21 03/20/21 03/21/21 03/22/21 23:59 23:59 23:59 23:59 Intake Total 3560 1000 Output Total 1800 550 Balance 1760 450 Meds/Results Medications: Active Medications Generic Name Dose Route Start Last Admin Trade Name Freq PRN Reason Stop Dose Admin Acetaminophen 650 mg 03/21/21 05:09 Acetaminophen 325 Mg Tablet PO Q6H PRN Fever or pain 1-3 Hydrocodone Bitart/Acetaminophen 1 tab 03/21/21 05:09 Hydrocodone/Acetaminophen (*Crx) 5-325 Mg Tablet PO Q6H PRN pain 7-10 Acetylcysteine 200 mg 03/21/21 20:00 03/22/21 02:01 Acetylcysteine 20% Inhal Soln 800 Mg/4 Ml Vial INHALATION 200 mg Q6HRT CARYL Administration Albuterol 5 mg 03/21/21 05:09 03/22/21 02:02 Al
[2021-03-22] MEDS: RANOLAZINE 500 MG TAB.ER.12H PO ×2 (08:10→21:06)
[2021-03-22] MEDS: SIMVASTATIN 20 MG TABLET PO (08:10)
[2021-03-22] MEDS: ASPIRIN 81 MG CHEWABLE TABLET 162 MG PO (08:10)
[2021-03-22] MEDS: BACLOFEN 10 MG TABLET PO (08:10)
[2021-03-22] MEDS: AMOXICILLIN/CLAVULANATE K 875-125 MG TAB 1 TABLET PO ×2 (08:10→21:06)
[2021-03-22] MEDS: HYDROcodone/acetaminophen (*CRX) 5-325 MG TABLET 1 TAB PO (08:16)
[2021-03-22] MEDS: FLUTICASONE/UMECLIDIN/VILANTER 100-62.5-25 MCG ELLIPTA 1 PUFF INHALATION (08:24)
[2021-03-22] MEDS: POTASSIUM CHLORIDE 20 MEQ PACKET (FOR LIQUID) 40 MEQ PO (11:46)
[2021-03-22 11:51] LABS: Creatinine Urine 41.9 mg/dL
[2021-03-22 11:56] LABS: Sodium Urine Random 18 meq/L
[2021-03-22] MEDS: ALPRAZolam (*CRX) 0.5 MG TABLET 1 MG PO (17:10)
[2021-03-22] MEDS: FERROUS GLUCONATE 324 MG TABLET PO (17:41)
[2021-03-22] MEDS: ESCITALOPRAM OXALATE 10 MG TABLET 20 MG PO (21:06)
[2021-03-22] MEDS: AZITHROMYCIN 250 MG TABLET 500 MG PO (21:06)
[2021-03-23] VITALS (12 sets, daily range): BP systolic 106–124; BP diastolic 65–71; PULSE 68–81; RESP 16–20; TEMP 36.6–36.8; O2SAT 95–98
[2021-03-23] MEDS: ACETYLCYSTEINE 20% INHAL SOLN 800 MG/4 ML VIAL 200 MG INHALATION ×4 (03:00→19:55)
[2021-03-23] MEDS: ALBUTEROL SULFATE NEB 2.5 MG/0.5 ML INH 5 MG INHALATION ×3 (03:30→19:55)
[2021-03-23 05:16] LABS: Anion Gap 4 mmol/L (8-16); Blood Urea Nitrogen 5 mg/dL (9-20); Calcium 8.9 mg/dL (8.4-10.2); Carbon Dioxide 29 mmol/L (22-30); Chloride 96 mmol/L (98-107); Estimated CRCL calculation 117 ml/min; Estimated Glomerular Filt Rate > 60; Glucose 98 mg/dL (65-110); Potassium 3.5 mmol/L (3.4-5.0); Sodium 129 mmol/L (137-145)
[2021-03-23] MEDS: ALPRAZolam (*CRX) 0.5 MG TABLET 1 MG PO (06:19)
[2021-03-23] MEDS: LEVOTHYROXINE SODIUM 125 MCG TABLET PO (06:19)
[2021-03-23] MEDS: SODIUM CHLORIDE 0.9% IV 1,000 ML 75 ML IV CONT (07:58)
[2021-03-23] MEDS: FLUTICASONE/UMECLIDIN/VILANTER 100-62.5-25 MCG ELLIPTA 1 PUFF INHALATION (08:01)
[2021-03-23] MEDS: RANOLAZINE 500 MG TAB.ER.12H PO ×2 (08:34→20:31)
[2021-03-23] MEDS: ASPIRIN 81 MG CHEWABLE TABLET 162 MG PO (08:34)
[2021-03-23] MEDS: BACLOFEN 10 MG TABLET PO (08:34)
[2021-03-23] MEDS: AMOXICILLIN/CLAVULANATE K 875-125 MG TAB 1 TABLET PO ×2 (08:34→20:32)
[2021-03-23] MEDS: SIMVASTATIN 20 MG TABLET PO (08:35)
[2021-03-23 13:02] LABS: Sodium 131 mmol/L (137-145)
--- NOTE | 2021-03-23 13:28 | PM.IMPN ---
Progress Note: A&P Assessment and Plan (1) Right lower lobe pneumonia: Code(s): J18.9 - Pneumonia, unspecified organism Status: Acute Assessment and Plan: Community acquired pneumonia likely due to most common organisms S. pneumonia, H. influenzae, M. catarrhalis, S. aureus, Klebsiella, mycoplasma, etc. Will give coverage for typical and atypical organisms due to COPD with Augmentin and azithromycin. -Augmentin 875 mg BID day 07/04 -Azithromycin 500 mg daily day 3 -Mucomyst for secretions at bases per RT (2) Hyponatremia: Code(s): E87.1 - Hypo-osmolality and hyponatremia Status: Acute Assessment and Plan: Sodium low at 124 on admisison but improved to 129-131 range. Likely due to pneumonia vs poor nutrition. No lesions noted on CTA chest. Urine sodium 18 with FENa 0.07% to suggest poor intake. Continue NS for 1Liter (3) Anemia: Code(s): D64.9 - Anemia, unspecified Status: Acute Assessment and Plan: Iron studies c/w iron deficiency anemia. Folate normal and b12 elevated. Contunue Ferrous gluconate 324 mg q24h (4) Self-care deficit in patient living alone: Code(s): Z78.9 - Other specified health status Status: Acute Assessment and Plan: Patient has difficult time managing alone, especially with a poor diet due to lack of transportation. Has been accepted for home health but placement being considered. Continue PT/OT (5) Weakness: Code(s): R53.1 - Weakness Status: Acute Assessment and Plan: Likely due to hyponatremia, poor oral intake and poor conditioning. B12, Folate and TSH normal. Inflammatory markers normal. Autoimmune labs pending. -F/U pending autoimmune labs. (6) Protein calorie malnutrition: Code(s): E46 - Unspecified protein-calorie malnutrition Status: Acute Assessment and Plan: As noted patient has difficulty accessing nutritious foods. -Ensure with meals (7) Tobacco abuse: Code(s): Z72.0 - Tobacco use Status: Acute Assessment and Plan: Patient was educated about the benefits of smoking cessation. (8) DVT prophylaxis: Code(s): Z29.9 - Encounter for prophylactic measures, unspecified Status: Acute Assessment and Plan: SCDs Subjective Date/time seen: 03/23/21 13:28 Interval history: 70yo male with hx of lung cancer, thyroid cancer, COPD and ongoing tobacco use here for SOB, weakness and cough. Assuming care. Chart reviewed. Patient complains of dry mouth. The dry mouth is chronic due to XRT for thyroid CA treatment. Cough is better. Up with a walker with therapy. Eating normally. No nausea vomiting. He cannot sit in a chair for prolonged periods because of chronic right hip pain from osteoarthritis. Exam Narrative: AF 97.9 124/71 80 20 95% ra Gen - NARD Lying semi recumbent in bed asleep Chest - inspiratory crackles appreciated in the right base otherwise distant. no wheezing. CV - RRR S1/S2 Abd - Soft, NT/ND, Positive BS Ext - No pedal edema Psych - Nml mood and affect Skin - Warm and dry Objective Data Vital Signs Vital Signs: Vital Signs - 24 hr 03/22/21 13:29 03/22/21 14:00 03/22/21 21:50 Temperature 97.5 F L Pulse Rate 72 58 L 69 Respiratory Rate 20 16 20 Blood Pressure 121/72 Pulse Oximetry 97 03/22/21 21:52 03/22/21 21:59 03/22/21 22:00 Temperature 97.4 F L Pulse Rate 69 71 63 Respiratory Rate 20 18 Blood Pressure 134/72 Pulse Oximetry 93 97 03/23/21 03:03 03/23/21 03:20 03/23/21 06:00 Temperature 97.9 F Pulse Rate 73 72 72 Respiratory Rate 20 20 18 Blood Pressure 124/71 Pulse Oximetry 96 03/23/21 07:55 03/23/21 08:01 03/23/21 08:06 Temperature Pulse Rate 77 77 80 Respiratory Rate 20 20 20 Blood Pressure Pulse Oximetry 95 Intake/Output Intake/Output: Intake & Output 03/20/21 03/21/21 03/22/21 03/23/21 23:59 23
[2021-03-23] MEDS: IPRATROPIUM BR 0.02% INH SOLN 0.5 MG/2.5 ML VIAL INHALATION (13:29)
[2021-03-23] MEDS: HYDROcodone/acetaminophen (*CRX) 5-325 MG TABLET 1 TAB PO (15:48)
[2021-03-23] MEDS: ESCITALOPRAM OXALATE 10 MG TABLET 20 MG PO (20:31)
[2021-03-23] MEDS: AZITHROMYCIN 250 MG TABLET 500 MG PO (20:31)
[2021-03-24] VITALS (8 sets, daily range): BP systolic 103–120; BP diastolic 60–67; PULSE 63–72; RESP 16–20; TEMP 36.1–37.1; O2SAT 93–98
[2021-03-24] MEDS: ALBUTEROL SULFATE NEB 2.5 MG/0.5 ML INH 5 MG INHALATION (02:01)
[2021-03-24] MEDS: ACETYLCYSTEINE 20% INHAL SOLN 800 MG/4 ML VIAL 200 MG INHALATION (02:02)
[2021-03-24 06:15] LABS: Anion Gap 4 mmol/L (8-16); Blood Urea Nitrogen 8 mg/dL (9-20); Carbon Dioxide 30 mmol/L (22-30); Chloride 93 mmol/L (98-107); Estimated CRCL calculation 117 ml/min; Estimated Glomerular Filt Rate > 60; Glucose 91 mg/dL (65-110); Potassium 3.8 mmol/L (3.4-5.0); Sodium 127 mmol/L (137-145)
[2021-03-24] MEDS: LEVOTHYROXINE SODIUM 125 MCG TABLET PO (06:28)
[2021-03-24] MEDS: FLUTICASONE/UMECLIDIN/VILANTER 100-62.5-25 MCG ELLIPTA 1 PUFF INHALATION (08:03)
[2021-03-24] MEDS: SIMVASTATIN 20 MG TABLET PO (08:16)
[2021-03-24] MEDS: BACLOFEN 10 MG TABLET PO (08:16)
[2021-03-24] MEDS: SODIUM CHLORIDE 500 MG TABLET PO ×2 (08:16→16:31)
[2021-03-24] MEDS: ASPIRIN 81 MG CHEWABLE TABLET 162 MG PO (08:16)
[2021-03-24] MEDS: AMOXICILLIN/CLAVULANATE K 875-125 MG TAB 1 TABLET PO ×2 (08:17→21:10)
[2021-03-24] MEDS: FERROUS GLUCONATE 324 MG TABLET PO (08:17)
[2021-03-24] MEDS: RANOLAZINE 500 MG TAB.ER.12H PO ×2 (08:17→21:10)
[2021-03-24 10:21] LABS: JO 1 Antibody <1.0
[2021-03-24] MEDS: HYDROcodone/acetaminophen (*CRX) 5-325 MG TABLET 1 TAB PO (11:37)
[2021-03-24 12:13] LABS: Sodium 127 mmol/L (137-145)
[2021-03-24] MEDS: ALPRAZolam (*CRX) 0.5 MG TABLET 1 MG PO ×2 (14:21→21:14)
--- NOTE | 2021-03-24 15:33 | PCOTNOTE ---
On 03/24/21, the student, Angela De Dios, provided care and completed [facility] documentation on this patient. I have reviewed the student's documentation and agree with the findings.
--- NOTE | 2021-03-24 15:44 | PM.IMPN ---
Progress Note: A&P Assessment and Plan (1) Right lower lobe pneumonia: Code(s): J18.9 - Pneumonia, unspecified organism Status: Acute Assessment and Plan: Community acquired pneumonia likely due to most common organisms S. pneumonia, H. influenzae, M. catarrhalis, S. aureus, Klebsiella, mycoplasma, etc. Will continue coverage for typical and atypical organisms due to COPD with Augmentin and azithromycin. Stop Mucomyst. (2) Hyponatremia: Code(s): E87.1 - Hypo-osmolality and hyponatremia Status: Acute Assessment and Plan: Sodium low at 124 on admisison but improved to 129-131 range. Likely due to pneumonia vs poor nutrition. No lesions noted on CTA chest. Urine sodium 18 with FENa 0.07% to suggest poor intake. Treated with NS as well. Na back down to 127 possibly related to the Lexapro and/or excessive free water intake. Fluid restrict. Hold Lexapro. Add NaCl tablets. (3) Anemia: Code(s): D64.9 - Anemia, unspecified Status: Acute Assessment and Plan: Iron studies c/w iron deficiency anemia. Folate normal and B12 elevated due to his supplements. Continue Ferrous gluconate 324 mg q24h (4) Self-care deficit in patient living alone: Code(s): Z78.9 - Other specified health status Status: Acute Assessment and Plan: Patient has difficulty managing alone with a poor diet due to lack of transportation. SNF placement being arranged. Continue PT/OT (5) Weakness: Code(s): R53.1 - Weakness Status: Acute Assessment and Plan: Likely due to hyponatremia, poor oral intake and poor conditioning. B12, Folate and TSH normal. Inflammatory markers normal. (6) Protein calorie malnutrition: Code(s): E46 - Unspecified protein-calorie malnutrition Status: Acute Assessment and Plan: As noted. Patient has difficulty accessing nutritious foods. Continue Ensure with meals (7) Tobacco abuse: Code(s): Z72.0 - Tobacco use Status: Acute Assessment and Plan: Patient was educated about the benefits of smoking cessation. (8) DVT prophylaxis: Code(s): Z29.9 - Encounter for prophylactic measures, unspecified Status: Acute Assessment and Plan: Lovenox Subjective Date/time seen: 03/24/21 15:44 Interval history: 70yo male with hx of lung cancer, thyroid cancer, COPD and ongoing tobacco use here for SOB, weakness and cough. Walking to the BR. Feels better. Eating okay. He has chronic thirst and drinks 3-4 20oz containers of free water per day. Exam Narrative: AF 98.1 103/60 67 18 98% ra Gen - NARD Chest - bibasilar inspiratory crackles CV - RRR S1/S2 Abd - Soft, NT/ND, Positive BS Ext - No pedal edema Psych - Nml mood and affect Skin - Warm and dry Objective Data Vital Signs Vital Signs: Vital Signs - 24 hr 03/23/21 19:57 03/23/21 20:08 03/23/21 22:00 Temperature 98.0 F Pulse Rate 68 74 72 Respiratory Rate 16 16 20 Blood Pressure 106/66 Pulse Oximetry 96 98 03/24/21 02:02 03/24/21 02:08 03/24/21 06:00 Temperature 97.0 F L Pulse Rate 66 64 68 Respiratory Rate 18 18 20 Blood Pressure 120/67 Pulse Oximetry 98 03/24/21 08:06 03/24/21 14:00 Temperature 98.1 F Pulse Rate 72 67 Respiratory Rate 16 18 Blood Pressure 103/60 Pulse Oximetry 96 98 Intake/Output Intake/Output: Intake & Output 03/21/21 03/22/21 03/23/21 03/24/21 23:59 23:59 23:59 23:59 Intake Total 3560 3502 2990 980 Output Total 1800 2650 1650 2150 Balance 5110 237 [id number] -[id number] Meds/Results Medications: Active Medications Generic Name Dose Route Start Last Admin Trade Name Crystal PRN Reason Stop Dose Admin Acetaminophen 650 mg 03/21/21 05:09 Acetaminophen 325 Mg Tablet PO Q6H PRN Fever or pain 1-3 Hydrocodone Bitart/Acetaminophen 1 tab 03/21/21 05:09 03/24/21 11:37 Hydrocodone/Acetaminophen (*Crx) 5-325 Mg Tablet PO 1 tab
[2021-03-24 16:21] LABS: Sodium 127 mmol/L (137-145)
[2021-03-24] MEDS: ENOXAPARIN 40 MG/0.4 ML SYRINGE SUB-Q (16:31)
[2021-03-24] MEDS: BENZOCAINE/MENTHOL (*BKC) 18 EA LOZENGE 1 LOZENGE PO (16:34)
[2021-03-24 17:54] LABS: SM Antibody <1.0; SM/RNP Antibody <1.0
[2021-03-24] MEDS: AZITHROMYCIN 250 MG TABLET 500 MG PO (21:10)
[2021-03-24 23:53] LABS: Sodium 129 mmol/L (137-145)
[2021-03-25 04:42] LABS: Aldolase 5.2 U/L (<=8.1)
[2021-03-25 05:01] VITALS: BP 106/67; PULSE 68; RESP 18; TEMP 36.4; O2SAT 96
[2021-03-25] MEDS: LEVOTHYROXINE SODIUM 125 MCG TABLET PO (05:31)
[2021-03-25] MEDS: HYDROcodone/acetaminophen (*CRX) 5-325 MG TABLET 1 TAB PO (05:33)
[2021-03-25 06:05] LABS: Anion Gap 6 mmol/L (8-16); Blood Urea Nitrogen 11 mg/dL (9-20); Calcium 9.2 mg/dL (8.4-10.2); Carbon Dioxide 30 mmol/L (22-30); Chloride 98 mmol/L (98-107); Estimated CRCL calculation 117 ml/min; Estimated Glomerular Filt Rate > 60; Glucose 102 mg/dL (65-110); Potassium 3.8 mmol/L (3.4-5.0); Sodium 134 mmol/L (137-145)
[2021-03-25] MEDS: FLUTICASONE/UMECLIDIN/VILANTER 100-62.5-25 MCG ELLIPTA 1 PUFF INHALATION (09:00)
[2021-03-25 09:09] VITALS: O2SAT 94
[2021-03-25] MEDS: AMOXICILLIN/CLAVULANATE K 875-125 MG TAB 1 TABLET PO (09:40)
[2021-03-25] MEDS: SODIUM CHLORIDE 500 MG TABLET PO ×2 (09:40→16:21)
[2021-03-25] MEDS: BACLOFEN 10 MG TABLET PO (09:40)
[2021-03-25] MEDS: SIMVASTATIN 20 MG TABLET PO (09:40)
[2021-03-25] MEDS: ENOXAPARIN 40 MG/0.4 ML SYRINGE SUB-Q (09:41)
[2021-03-25] MEDS: ASPIRIN 81 MG CHEWABLE TABLET 162 MG PO (09:41)
[2021-03-25] MEDS: RANOLAZINE 500 MG TAB.ER.12H PO (09:41)
[2021-03-25 09:51] LABS: Legionella pneumophila Ag Ur Not Detected (Not Detected)
[2021-03-25 11:04] LABS: EDCOVIDSCREEN Negative (Negative)
[2021-03-25 14:29] VITALS: BP 101/58; PULSE 66; RESP 16; TEMP 36.6; O2SAT 94
--- NOTE | 2021-03-25 15:23 | PM.DS ---
DS: Admitting Diagnosis Discharge Date 03/25/21 Admitting Diagnosis Shortness of breath and weakness DS: Discharge Diagnosis Discharge Diagnosis (1) Right lower lobe pneumonia: Code(s): J18.9 - Pneumonia, unspecified organism Status: Acute Assessment and Plan: Patient present with SOB. CTA Chest on admission showing no PE but with emphysema with it is supporting the bilateral lower lobe bronchi and tree-in-bud opacities in the superior segment of the right lower lobe consistent with bronchiolitis/early pneumonia c/w CAP. Treated with Solu-Medrol and nebs in the ED. Also started on Azithromycin and completed 5 days. Also started on Augmentin with course completed tonight (2) Hyponatremia: Code(s): E87.1 - Hypo-osmolality and hyponatremia Status: Acute Assessment and Plan: Sodium low at 124 on admisison but improved to 129-131 range. Likely due to pneumonia vs poor nutrition. No lesions noted on CTA chest. Urine sodium 18 with FENa 0.07% to suggest poor intake. Treated with NS with improvement but then sodium dropped again. Possibly related to the Lexapro and/or excessive free water intake. We fluid restricted, held Lexapro and added NaCl tablets. Sodium improved to 134 now. Will resume Lexapro but continue the fluid restriction. (3) Anemia: Code(s): D64.9 - Anemia, unspecified Status: Acute Assessment and Plan: Hgb normal on admission but dropped to 12.7 on recheck. Iron level and TIBC normal with TSat at 16%. Ferritin 30. Possible low iron stores related to poor oral intake. Folate normal and B12 elevated due to his supplements. Started on Ferrous gluconate (4) Self-care deficit in patient living alone: Code(s): Z78.9 - Other specified health status Status: Acute Assessment and Plan: Patient has difficulty managing alone with a poor diet due to lack of transportation. SNF placement being arranged. He worked with PT/OT (5) Weakness: Code(s): R53.1 - Weakness Status: Acute Assessment and Plan: Likely due to hyponatremia, poor oral intake and poor conditioning. B12, Folate and TSH normal. Inflammatory markers normal. (6) Protein calorie malnutrition: Code(s): E46 - Unspecified protein-calorie malnutrition Status: Acute Assessment and Plan: As noted. Patient has difficulty accessing nutritious foods. Treated with Ensure with meals (7) Tobacco abuse: Code(s): Z72.0 - Tobacco use Status: Acute Assessment and Plan: Patient was educated about the benefits of smoking cessation. (8) Thoracic aortic aneurysm: Code(s): I71.2 - Thoracic aortic aneurysm, without rupture Status: Acute Assessment and Plan: CTA chest also showed a 4.2 cm ascending thoracic aortic aneurysm. CT chest from 03/2020 showing similar findings with the ascending aorta measuring 4.2 cm diameter. No significant supervisor records change the past year. Plan for repeat image in 6-12 months. DS: Summary Hospital Course Reason for hospitalization: 70yo male with hx of lung cancer, thyroid cancer, COPD and ongoing tobacco use here for SOB, weakness and cough. Please see H&P for details Hospital Course: Please see above for details of hospital course. Status at Discharge Cognitive/behavioral status at discharge: stable Time Spent with Patient Time attestation: Total time spent providing and/or coordinating discharge services: 35 minutes Time spent: Greater than 30 minutes Exam Narrative: AF 97.9 101/58 66 16 94% ra Gen - NARD lying semi-recumbent in bed Chest - bibasilar R>L inspiratory crackles CV - RRR S1/S2 Abd - Soft, NT/ND, Positive BS Ext - No pedal edema Psych - Nml mood and affect Skin - Warm and dry DS: Data Data Completed and Pending Labs on day of discharge: Labs from last 24 hours 03/25/21 03/25/21 03/24/21 10:39 05:17 23:36 Sodium 134 L 129 L
== END 2021-03-25 17:23 | DRG 194 ==
LOC: ANHED 03-21 00:43 → ANH2MED 03-21 02:16
PROVIDERS: Family Medicine; Admitting Provider Internal Medicine; Emergency Provider Emergency Medicine; PCP Nurse Practitioner Adult Health; Visit Provider Internal Medicine
DX: J18.9 Pneumonia, unspecified organism (principal); E87.1 Hypo-osmolality and hyponatremia; E46 Unspecified protein-calorie malnutrition; Z68.22 Body mass index [BMI] 22.0-22.9, adult; Z20.822 Contact with and (suspected) exposure to COVID-19; I71.2 Thoracic aortic aneurysm, without rupture; J43.9 Emphysema, unspecified; R53.1 Weakness; D64.9 Anemia, unspecified; I10 Essential (primary) hypertension; E78.00 Pure hypercholesterolemia, unspecified; K21.9 Gastro-esophageal reflux disease without esophagitis; F17.210 Nicotine dependence, cigarettes, uncomplicated; I25.10 Atherosclerotic heart disease of native coronary artery without angina pectoris; E03.9 Hypothyroidism, unspecified; G62.9 Polyneuropathy, unspecified; Z78.9 Other specified health status; Z79.82 Long term (current) use of aspirin; Z79.899 Other long term (current) drug therapy; Z85.118 Personal history of other malignant neoplasm of bronchus and lung; Z85.850 Personal history of malignant neoplasm of thyroid; Z95.1 Presence of aortocoronary bypass graft; Z98.42 Cataract extraction status, left eye; Z98.41 Cataract extraction status, right eye; Z96.1 Presence of intraocular lens
CPT/HCPCS: 36415; 36600; 71275; 80048; 80053; 81001; 82085; 82550; 82570; 82607; 82728; 82746; 82805; 83540; 83550; 83880; 83935; 84295; 84300; 84443; 84484; 85025; 85027; 85652; 86140; 86235; 87426; 87449; 93005; 94640; 96361; 96365; 96375; 97110; 97161; 97165; 97530; 97535; 99285; A9270; C1751; C9803; G0378; J0456; J1650; J2930; J7030; J7040; Q9967

== ENCOUNTER 2021-09-16 10:42 | Emergency (ER) | payer MEDICARE, OTHER, SELFPAY ==
[2021-09-16] VITALS (7 sets, daily range): BP systolic 90–133; BP diastolic 55–86; PULSE 67–84; RESP 14–22; TEMP 36.8; O2SAT 94–100
--- NOTE | ~2021-09-16 | CT_ITS ---
EXAMINATION: CTA chest PE protocol DATE: 09/16/2021 14:27 INDICATION: PE TECHNIQUE: Computed tomography angiography (CTA) of the chest was performed with 100 mL Omnipaque-350 intravenous contrast timed to evaluate the pulmonary arteries. Coronal maximum intensity projection 3D-reconstructions were created by the technologist. The dose-length product (DLP) was 389.47 mGy-cm. Automated exposure control and iterative reconstruction technique were employed. COMPARISON: 03/20/2021. FINDINGS: Study quality: . Pulmonary arteries: No pulmonary emboli detected. Thoracic aorta: Ectasia, root dilated up to 4.3 cm and stable by my measurements, atherosclerosis. Lung parenchyma and airways: Emphysematous change. Stable benign subcentimeter right lower lobe nodul e. Thoracic inlet, axillae and chest wall: Unremarkable. Intact sternotomy wires. Mediastinum: Patulous esophagus. Heart and pericardium: Prior CABG. Coronary artery calcifications: Heavy. Pleura: Unremarkable. Upper abdomen: Cholecystectomy. Bones: No acute osseous finding. IMPRESSION: No CT evidence of acute pulmonary embolus. 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 Reviewed, dictated and finalized at location K. IMPRESSION: No CT evidence of acute pulmonary embolus. 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
--- NOTE | ~2021-09-16 | XR_ITS ---
EXAMINATION: XR chest 2V DATE: 09/16/2021 12:04 INDICATION: Shortness of breath. TECHNIQUE: Frontal and lateral views of the chest were obtained. COMPARISON: Chest CT 03/20/2021 FINDINGS: There are surgical clips from right upper lobectomy. There is mild atelectasis in left liliya hilar region. Calcified left lung nodules and calcified left hilar lymph nodes are consistent with ol d granulomatous disease. No pleural effusion or pneumothorax. The heart size is normal. Median sterno aline wires and mediastinal surgical clips are seen, likely from prior coronary artery bypass grafting . There are surgical clips in the abdomen. IMPRESSION: 1. Mild atelectasis in left perihilar region. Reviewed, dictated and finalized at location B.
--- NOTE | 2021-09-16 11:04 | ECG_ITS ---
Measurements Intervals [place] Rate: 79 P: 82 NC: 172 QRS: 18 QRSD: 101 T: 80 QT: 402 QTc: 462 Interpretive Statements SINUS RHYTHM ATRIAL PREMATURE COMPLEXES CONSIDER INFERIOR INFARCT, AGE INDETERMINATE NONSPECIFIC T-WAVE ABNORMALITY- HIGH LATERAL LEADS BASELINE ARTIFACT- II, AVR ABNORMAL ECG Electronically Signed On 09-16-2021 12:09:02 CDT by Shady Reyes D.O.
[2021-09-16 11:21] LABS: Basophils Percent Auto 0.6 % (0.2-1.2); Eosinophils Absolute Auto 0.2 K/mm3 (0-0.3); Eosinophils Percent Auto 2.2 % (0-4.4); Hematocrit 44.9 % (42.0-52.0); Hemoglobin 15.3 g/dL (14.0-18.0); Immature Granulocyte Absolute 0.02 K/mm3 (0.00-0.031); Immature Granulocyte Percent A 0.3 % (0-0.5); Lymphocytes Absolute Auto 0.73 K/mm3 (0.9-3.2); Lymphocytes Percent Auto 10.7 % (18.3-44.2); Mean Corpuscular HGB Conc 34.1 g/dl (32-36); Mean Corpuscular Hemoglobin 29.8 pg (26-34); Mean Corpuscular Volume 87.5 fl (80-100); Monocytes Absolute Auto 0.7 K/mm3 (0.1-0.6); Monocytes Percent Auto 9.8 % (2.6-8.5); Neutrophils Absolute Auto 5.2 K/mm3 (1.3-6.7); Neutrophils Percent Auto 76.4 % (45.5-73.1); Platelet Count Result 222 k/mm3 (150-375); Red Blood Count 5.13 M/mm3 (4.6-6.20); Red Cell Distribution Width 14.8 % (11.5-14.5); White Blood Count 6.8 K/mm3 (4.5-10.0)
[2021-09-16 11:33] LABS: Alanine Aminotransferase 22 U/L (6-50); Albumin Level 4.5 g/dL (3.5-5.1); Alkaline Phosphatase 93 U/L (38-126); Anion Gap 10 mmol/L (8-16); Aspartate Amino Transferase 33 U/L (17-59); Bilirubin,Total 2.1 mg/dL (0.2-1.3); Blood Urea Nitrogen 5 mg/dL (9-20); Calcium 8.8 mg/dL (8.4-10.2); Carbon Dioxide 28 mmol/L (22-30); Chloride 91 mmol/L (98-107); Estimated CRCL calculation 89 ml/min; Estimated Glomerular Filt Rate > 60; Glucose 98 mg/dL (65-110); Potassium 3.6 mmol/L (3.4-5.0); Sodium 129 mmol/L (137-145)
--- NOTE | 2021-09-16 14:19 | ED.GENADULT ---
HPI - General Adult General Chief complaint: Shortness of Breath/Dyspnea Stated complaint: dyspnea Time Seen by Provider: 09/16/21 14:07 Source: RN notes reviewed History of Present Illness HPI narrative: Patient presents emergency room from home for shortness of breath. Patient states has been feeling short of breath for the proximately the past 1 week. States has been associated with a cough that has been nonproductive. States that with this he has a very dry mouth. He denies any fevers or chills, chest pain abdominal pain nausea vomiting or any other symptoms patient states does have a history of throat cancer but is in remission currently on no chemotherapy Related Data Home Medications Medication Instructions Recorded Confirmed aspirin 81 mg chewable tablet 2 tablet PO DAILY 07/21/20 03/21/21 baclofen 10 mg tablet 10 mg PO DAILY 07/21/20 03/21/21 cholecalciferol (vitamin D3) 50 50 mcg PO DAILY 07/21/20 03/21/21 mcg (2,000 unit) capsule escitalopram oxalate 20 mg tablet 20 mg PO HS 07/21/20 03/21/21 fluticasone fur. 100 mcg-umeclid 1 inh INHALATION DAILY 07/21/20 03/21/21 62.5 mcg-vilant 25 mcg inhalat.powder levothyroxine 125 mcg capsule 125 mcg PO DAILY 07/21/20 03/21/21 mecobalamin (vitamin B12) 1,000 1,000 mcg PO DAILY 07/21/20 03/21/21 mcg chewable tablet multivitamin 1 tablet PO DAILY 07/21/20 03/21/21 nitroglycerin 400 mcg/spray 1 spray TRANSLINGUAL Q5M PRN 07/21/20 03/21/21 translingual simvastatin 20 mg tablet 20 mg PO DAILY 07/21/20 03/21/21 tramadol 50 mg tablet 50 mg PO Q6H PRN 07/21/20 03/21/21 esomeprazole magnesium 40 mg PO DAILY 03/22/21 03/22/21 ranolazine 500 mg PO Q12H 03/22/21 03/22/21 Allergies Allergy/AdvReac Type Severity Reaction Status Date / Time atorvastatin Allergy Mild MADE ME Verified 09/16/21 14:10 SICK terbinafine Allergy Mild MADE ME Verified 09/16/21 14:10 SICK methocarbamol AdvReac Mild MADE ME Verified 09/16/21 14:10 SICK Review of Systems Review of Systems: Gen.: Denies fevers or chills Eyes: Denies eye pain or visual change ENT: Denies congestion reports dry throat Respiratory: See HPI CV: Denies chest pain or palpitations GI: Denies abdominal pain nausea, emesis or diarrhea Musculoskeletal: Denies back pain or muscle pain Neuro: Denies numbness, tingling, weakness or focal weakness Skin: Denies rash Except as documented, all other systems reviewed and negative [facility] Past Medical History Medical History Basal cell carcinoma COPD (chronic obstructive pulmonary disease) Coronary artery disease Dr. Mane GERD (gastroesophageal reflux disease) High cholesterol History of thyroid cancer Treated with chemotherapy and radiation Hypertension Hypothyroidism Lung cancer Status post right upper lobe pneumonectomy Peripheral neuropathy Surgical History Surgical History (Updated 03/21/21 @ 05:33 by Milly Lazaro DO) H/O right inguinal hernia repair (08/06/20) Repair of right inguinal hernia with 6 cm Parietex hernia mesh system History of bilateral carpal tunnel release History of colonoscopy History of coronary angioplasty History of esophagogastroduodenoscopy (EGD) 2006 History of hemorrhoidectomy History of left inguinal hernia repair (11/2018) With 8 cm of Parietex mesh dr. Stapleton History of medial meniscus repair of right knee (~2005) History of pneumonectomy (~2014) Right upper lobe due to lung cancer History of ventral hernia repair (~06/2006) Gastric volvulus with ventral hernia repair Hx of CABG (~09/2002) 4 vessel CABG Hx of cholecystectomy Status post cataract extraction of both eyes with insertion of intraocular lens (~2015) Family History Family History (Updated 03/21/21 @ 05:25 by Milly Lazaro DO) Mother MVA (motor vehicle accident) Father Gunshot wound Sibling Heart disease Other Family history of cardiovascular disease Social History
[2021-09-16 14:49] LABS: INR 1.1; Prothrombin Time 13.6 Seconds (11.1-14.7)
[2021-09-16 14:50] LABS: Partial Thromboplastin Time 35.3 SECONDS (22.3-36.8)
[2021-09-16] MEDS: SODIUM CHLORIDE 0.9% IV 1,000 ML 999 ML IV CONT (14:53)
[2021-09-16 15:13] LABS: NT Pro B Type Natriuretic Pept 100 pg/mL (5-100); Troponin I < 0.012 ng/mL (0.000-0.034)
[2021-09-16 15:51] LABS: SARS-CoV-2 RNA PCR Negative
[2021-09-16] MEDS: IPRATROPIUM BR 0.02% INH SOLN 0.5 MG/2.5 ML VIAL INHALATION (16:10)
[2021-09-16] MEDS: ALBUTEROL SULFATE NEB 2.5 MG/3 ML INH 5 MG INHALATION (16:10)
== END 2021-09-16 17:40 | disposition home or self-care (01) ==
PROVIDERS: Emergency Medicine; Emergency Provider Emergency Medicine; PCP Nurse Practitioner Adult Health
DX: J44.9 Chronic obstructive pulmonary disease, unspecified (principal); J06.9 Acute upper respiratory infection, unspecified; I25.10 Atherosclerotic heart disease of native coronary artery without angina pectoris; I10 Essential (primary) hypertension; E03.9 Hypothyroidism, unspecified; F17.210 Nicotine dependence, cigarettes, uncomplicated; Z85.118 Personal history of other malignant neoplasm of bronchus and lung; Z20.822 Contact with and (suspected) exposure to COVID-19
CPT/HCPCS: 36415; 71046; 71275; 80053; 83880; 84484; 85025; 85610; 85730; 93005; 94640; 96360; 99284; C9803; J7030; Q9967; U0003; U0005

== ENCOUNTER 2022-06-23 16:21 | Emergency (ER) | payer MEDICARE, OTHER, SELFPAY ==
[2022-06-23] VITALS (11 sets, daily range): BP systolic 95–127; BP diastolic 61–95; PULSE 58–63; RESP 7–22; TEMP 36.6; O2SAT 91–96
--- NOTE | ~2022-06-23 | CT_ITS ---
EXAMINATION: CT brain wo con DATE: 06/23/2022 17:32 INDICATION: head injury . TECHNIQUE: Computed tomography (CT) of the head was performed without intravenous contrast. The mA wa s adjusted according to patient size. Iterative reconstruction technique was employed. The dose-lengt h product was 681.00 mGy-cm. COMPARISON: 05/03/2014. FINDINGS: No acute intracranial hemorrhage or extra-axial fluid collection. No hydrocephalus, mass, or herniation. No acute ischemic infarct. Unremarkable dural venous sinus attenuation. No acute osseous abnormality. Air-fluid level in the left frontal sinus, mucosal thickening in the left frontal sinus and multiple ethmoid air cells, the remaining aerated spaces are clear. Mild atrophy and moderate chronic white matter change. Atherosclerotic intracranial calcification. Fo pa[place] chronic infarct in the right sandoval radiata. Bilateral lens replacements. IMPRESSION: No acute intracranial process. Left frontal sinus findings may represent acute sinusitis in the appro priate clinical context. Reviewed, dictated and finalized at location K. D MARKETING COORDINATOR IMPRESSION: No acute intracranial process. Left frontal sinus findings may represent acute sinusitis in the appropriate clinical context.
--- NOTE | ~2022-06-23 | XR_ITS ---
EXAM: XR humerus RT, XR shoulder RT min 2V DATE: 06/23/2022 17:46 HISTORY: fall . COMPARISON: 06/23/2022, images only. FINDINGS: Fractured superior sternotomy wires. Mediastinal vascular clips. Decreased mineralization. Comminuted proximal right humeral fracture with 7 mm lateral displacement and 1 cm anterior displacem ent. No lytic or blastic lesion. Degenerative changes in the shoulder. No erosion or periosteal adelr e. Vascular calcifications. IMPRESSION: Comminuted, mildly displaced proximal right humeral fracture. Reviewed, dictated and finalized at location K. MILLING MACHINE OPERATOR IMPRESSION: Comminuted, mildly displaced proximal right humeral fracture.
[2022-06-23] MEDS: MORPHINE SULFATE (*CRX) 4 MG/ML INJ IV PUSH (17:08)
[2022-06-23] MEDS: ONDANSETRON INJ 4 MG/2 ML VIAL IV PUSH (17:08)
--- NOTE | 2022-06-23 18:49 | ED.UPPEXIN ---
HPI - Extremity Injury (Upper) General Chief Complaint: Extremity Injury, Upper Stated Complaint: R shoulder pain Time Seen by Provider: 06/23/22 16:46 Source: patient and family Mode of arrival: EMS Limitations: no limitations History of Present Illness HPI narrative: 71-year-old with a history of COPD was brought in by EMS with complaints of fall patient fell in [employer] parking lot landed on his right shoulder. He states that he might have hit his head no loss of consciousness. No other injuries MD complaint: injury to: right and shoulder Other Extremity Injury: Right: arm Other injuries: none Handedness: right Place: outdoors ([employer] parking lot) and other Severity: moderate Severity scale (1-10): 8 Relieving factors: none Exacerbating factors: movement of extremity Context: fall Associated symptoms: denies other symptoms Related Data Home Medications Medication Instructions Recorded Confirmed aspirin 81 mg chewable tablet 2 tablet PO DAILY 07/21/20 03/21/21 baclofen 10 mg tablet 10 mg PO DAILY 07/21/20 03/21/21 cholecalciferol (vitamin D3) 50 50 mcg PO DAILY 07/21/20 03/21/21 mcg (2,000 unit) capsule escitalopram oxalate 20 mg tablet 20 mg PO HS 07/21/20 03/21/21 fluticasone fur. 100 mcg-umeclid 1 inh inhalation DAILY 07/21/20 03/21/21 62.5 mcg-vilant 25 mcg inhalat.powder (Trelegy Ellipta) levothyroxine 125 mcg capsule 125 mcg PO DAILY 07/21/20 03/21/21 mecobalamin (vitamin B12) 1,000 1,000 mcg PO DAILY 07/21/20 03/21/21 mcg chewable tablet (B12 Active) multivitamin 1 tablet PO DAILY 07/21/20 03/21/21 nitroglycerin 400 mcg/spray 1 spray translingual Q5M PRN Chest 07/21/20 03/21/21 translingual Pain simvastatin 20 mg tablet 20 mg PO DAILY 07/21/20 03/21/21 tramadol 50 mg tablet 50 mg PO Q6H PRN Pain 07/21/20 03/21/21 esomeprazole magnesium 40 mg 40 mg PO DAILY 03/22/21 03/22/21 capsule,delayed release ranolazine 500 mg tablet,extended 500 mg PO Q12H 03/22/21 03/22/21 release,12 hr Allergies Allergy/AdvReac Type Severity Reaction Status Date / Time atorvastatin Allergy Mild MADE ME Verified 09/16/21 14:10 SICK terbinafine Allergy Mild MADE ME Verified 09/16/21 14:10 SICK methocarbamol AdvReac Mild MADE ME Verified 09/16/21 14:10 SICK Review of Systems Review of Systems: All systems reviewed & are unremarkable except as noted in HPI and below Constitutional: Constitutional: Reports no additional constitutional complaints Eyes: Eyes: Reports no additional eye complaints ENT: Reports system reviewed and no additional complaints, except as documented Cardiovascular: Cardiovascular: Reports no additional cardiovascular complaints Respiratory: Respiratory: Reports no additional respiratory complaints Musculoskeletal: Musculoskeletal: Reports as per HPI Neurologic: Reports system reviewed and no additional complaints, except as documented Psychiatric: Psychiatric: Reports no additional psychiatric complaints [facility] Past Medical History Medical History Basal cell carcinoma COPD (chronic obstructive pulmonary disease) Coronary artery disease Dr. Mane GERD (gastroesophageal reflux disease) High cholesterol History of thyroid cancer Treated with chemotherapy and radiation Hypertension Hypothyroidism Lung cancer Status post right upper lobe pneumonectomy Peripheral neuropathy Surgical History Surgical History (Updated 03/21/21 @ 05:33 by Milly Lazaro DO) H/O right inguinal hernia repair (08/06/20) Repair of right inguinal hernia with 6 cm Parietex hernia mesh system History of bilateral carpal tunnel release History of colonoscopy History of coronary angioplasty History of esophagogastroduodenoscopy (EGD) 2006 History of hemorrhoidectomy History of left inguinal hernia repair (11/2018) With 8 cm of Pari[address]ex mesh dr. Stapleton History of medial meniscus repair of right knee (~2005) History of pneu
== END 2022-06-23 19:53 | disposition home or self-care (01) ==
PROVIDERS: Emergency Provider Family Medicine; PCP Nurse Practitioner Adult Health
DX: S42.291A Other displaced fracture of upper end of right humerus, initial encounter for closed fracture (principal); S51.801A Unspecified open wound of right forearm, initial encounter; F17.210 Nicotine dependence, cigarettes, uncomplicated; J44.9 Chronic obstructive pulmonary disease, unspecified; I25.10 Atherosclerotic heart disease of native coronary artery without angina pectoris; K21.9 Gastro-esophageal reflux disease without esophagitis; E78.5 Hyperlipidemia, unspecified; I10 Essential (primary) hypertension; E03.9 Hypothyroidism, unspecified; Z85.118 Personal history of other malignant neoplasm of bronchus and lung; W01.0XXA Fall on same level from slipping, tripping and stumbling without subsequent striking against object, initial encounter
CPT/HCPCS: 70450; 73030; 73060; 96374; 96375; 99284; A4565; J2270; J2405

== ENCOUNTER 2022-07-01 13:34 | Inpatient (IN) | payer MEDICARE, OTHER, SELFPAY ==
[2022-07-01] VITALS (22 sets, daily range): BP systolic 92–143; BP diastolic 56–84; PULSE 60–70; RESP 14–24; TEMP 36.1–36.7; O2SAT 91–100; BMI 26.9
--- NOTE | ~2022-07-01 | XR_ITS ---
EXAMINATION: XR barium swallow modified DATE: 07/09/2022 10:53 INDICATION: Aspiration pneumonia. TECHNIQUE: The patient was given barium-containing material of multiple consistencies to swallow by t [place] speech pathologist while I performed fluoroscopy. Fluoroscopy exposure time was 2.8 minutes. The n umber of fluoroscopy images saved to the PACS was 1. Dose-area product was 2.604 Gy-cm^2. FINDINGS: There is increased oral transit time. There is reduced laryngeal elevation, reduced tongue base retra ction, and moderate to severe vallecular residue. There is laryngeal penetration with uncontrolled th in liquids. IMPRESSION: 1. Laryngeal penetration with uncontrolled thin liquids. 2. Please refer to the speech therapy report for recommendations. Reviewed, dictated and finalized at location A. PACKER
--- NOTE | ~2022-07-01 | US_ITS ---
Limited Abdominal Sonogram: Real-time sonographic imaging of the right upper quadrant was performed. Clinical History: Hyperbilirubinemia Findings: The liver appears normal with no evidence of mass lesion or bile duct dilatation. Main por pan vein demonstrates normal direction of flow. The gallbladder is absent, compatible prior cholecyst ectomy. The common bile duct measures 4 mm. The visualized pancreas, aorta, and IVC are unremarkable . There is a 9 mm coarse calcification with shadowing along the margin of the right hepatic lobe, pre dominantly interposed between the right hepatic lobe and right kidney. Impression: 9 mm shadowing presumed calcification along the margin of the right hepatic lobe. This is of uncertai n clinical significance, without definite correlate seen on prior CT scan of 07/06/2022. Dropped gallst one is a potential consideration, but there is no surrounding fluid collection. Reviewed, dictated and finalized at [facility]. Impression: 9 mm shadowing presumed calcification along the margin of the right hepatic lob e. This is of uncertain clinical significance, without definite correlate seen on prior CT scan of 07/06/2022. Dropped gallstone is a potential consideration, b ut there is no surrounding fluid collection.
--- NOTE | ~2022-07-01 | CT_ITS ---
EXAMINATION: CT brain wo con DATE: 07/01/2022 14:45 INDICATION: Head injury. TECHNIQUE: Computed tomography (CT) of the head was performed without intravenous contrast. The mA wa s adjusted according to patient size. Iterative reconstruction technique was employed. The dose-lengt h product was 605.33 mGy-cm. COMPARISON: Head CT 06/23/2022 FINDINGS: There are scattered areas of low attenuation in the cerebral white matter. There is no intr acranial hemorrhage, acute infarction, or abnormal intracranial mass lesion. The ventricles are leandro l in size. There is mild mucosal thickening in the paranasal sinuses. There are likely changes of ocu lar lens replacement surgeries. The mastoid air cells are normal. IMPRESSION: 1. Stable moderate nonspecific cerebral white matter disease, which likely represents chronic small v essel ischemic disease. Reviewed, dictated and finalized at location A. SEAM ENVELOPE MACHINE OPERATOR IMPRESSION: 1. Stable moderate nonspecific cerebral white matter disease, which likely repr esents chronic small vessel ischemic disease.
--- NOTE | ~2022-07-01 | CT_ITS ---
EXAMINATION: CT chest abdomen pelvis w con DATE: 07/01/2022 15:59 INDICATION: Shortness of breath, elevated liver enzymes TECHNIQUE: Transaxial computed tomographic images of the chest, abdomen, and pelvis were obtained aft er the administration of 100 cc of Omnipaque 350 intravenous contrast. The dose-length product (DLP) was 1101.59 mGy-cm. Automated exposure control and iterative reconstruction technique were employed. COMPARISON: 09/16/2021 FINDINGS: CHEST CT: There are airspace opacities in the upper lobes, left greater than right. There is mild dependent ate lectasis. No pleural effusion or pneumothorax. No pathologically enlarged thoracic lymph nodes are id entified. The heart size is normal. There is a comminuted and displaced fracture in the proximal neck of the right humerus. Changes of coronary artery bypass grafting are noted. There is moderate thorac ic spondylosis. ABDOMEN/PELVIS CT: The gallbladder is surgically absent. Punctate calcifications in an otherwise normal spleen likely re present healed granulomatous disease. The liver, pancreas, and adrenal glands are normal. The kidneys are unremarkable. No pathologically enlarged abdominal or pelvic lymph nodes are identified. There i s no free intraperitoneal gas. There is mild focal dilatation of the third portion of the duodenum of unclear etiology. There is a 3.2 cm fusiform infrarenal abdominal aortic aneurysm. There is mild dis tention of the urinary bladder. A large volume of stool is present in the rectum. There is severe lum bar spondylosis. IMPRESSION: 1. Minimal airspace opacities of the upper lobes, likely pneumonia. 2. Mild focal dilatation of the third portion of the duodenum of unclear etiology, likely ileus. 3. 3.2 cm fusiform infrarenal abdominal aortic aneurysm. 4. Comminuted and displaced fracture of the proximal right humerus. Reviewed, dictated and finalized at location F. MACHINE REPAIRER IMPRESSION: 1. Minimal airspace opacities of the upper lobes, likely pneumonia. 2. Mild focal dilatation of the third portion of the duodenum of unclear etiolo gy, likely ileus. 3. 3.2 cm fusiform infrarenal abdominal aortic aneurysm. 4. Comminuted and displaced fracture of the proximal right humerus.
--- NOTE | ~2022-07-01 | XR_ITS ---
EXAMINATION: XR chest 2V DATE: 07/19/2022 09:28 INDICATION: Cough TECHNIQUE: frontal and lateral views of the chest were obtained. COMPARISON: Chest radiograph dated 07/14/2022 FINDINGS: Persistent scattered bilateral patchy airspace opacities. Bilateral small pleural effusions with blun ting at the posterior sulci but not the costophrenic angles. The cardiomediastinal silhouette is norm al. Median sternotomy wires and mediastinal surgical clips are seen, likely from prior coronary arter y bypass grafting. Internal fixation of a comminuted extra articular fracture at the neck of the prox imal right humerus. Cholecystectomy clips in the right upper quadrant. IMPRESSION: 1. No significant change in patchy bilateral airspace opacities which could represent pneumonia or pu lmonary edema. 2. Small bilateral pleural effusions. Reviewed, dictated and finalized at location A. IMPRESSION: 1. No significant change in patchy bilateral airspace opacities which could rep resent pneumonia or pulmonary edema. 2. Small bilateral pleural effusions.
--- NOTE | ~2022-07-01 | XR_ITS ---
EXAMINATION: XR chest 1V portable INDICATION: Wheezing TECHNIQUE: Portable AP chest at 1917 hours COMPARISON: 07/01/2022 FINDINGS: There are airspace opacities in the left mid and upper lung zones without significant adler e. No pleural effusion or pneumothorax. The cardiomediastinal silhouette is stable. Median sternotomy wires and mediastinal surgical clips are seen, likely from prior coronary artery bypass grafting. A comminuted fracture of the proximal right humerus is noted. IMPRESSION: 1. Stable airspace opacities of the left mid and upper lung zones, consistent with pneumonia. Reviewed, dictated and finalized at location F. PICKER IMPRESSION: 1. Stable airspace opacities of the left mid and upper lung zones, consistent w ith pneumonia.
--- NOTE | ~2022-07-01 | XR_ITS ---
EXAMINATION: XR surgery orthopedic DATE: 07/12/2022 14:23 INDICATION: ORIF right humeral fracture TECHNIQUE: 3 fluoroscopic images of the proximal right humerus were obtained during procedure perform ed by Dr. Collins. Radiologist was not present for the imaging or procedure. The amount of fluoroscopy t antoinette used during this procedure was 0.5 minutes. COMPARISON: None. FINDINGS: Comminuted fracture at the surgical neck of the proximal right humerus which has been fixed with bimal g the U-shaped antegrade intramedullary pin which extends distally from the humeral head into the mid diaphysis. Alignment post fixation appears near anatomic. No other fractures identified. IMPRESSION: 1. Near-anatomic alignment post internal fixation of a comminuted surgical neck fracture of the proxi mal right humerus. See procedure note for further detail. Reviewed, dictated and finalized at location B. IMPRESSION: 1. Near-anatomic alignment post internal fixation of a comminuted surgical neck fracture of the proximal right humerus. See procedure note for further detail.
--- NOTE | ~2022-07-01 | XR_ITS ---
XR chest 1V 07/01/2022 14:54 Indication: Cough and wheezing. Recent fall. Procedure: AP view of the chest Comparison: Comparison to multiple prior studies sequentially, with oldest reviewed study dated 07/26. Findings: Status post median sternotomy for CABG. Borderline heart size. There are perihilar infiltra abram with peribronchial thickening which may represent mild edema or atypical pneumonia. There is a co mminuted displaced right humeral neck fracture. No significant effusion or pneumothorax. Impression: 1: Bilateral perihilar interstitial infiltrates with peribronchial thickening, edema versus atypical pneumonia. 2: Comminuted displaced right humeral neck fracture. Reviewed, dictated and finalized at location L. K SETTER OPERATOR Impression: 1: Bilateral perihilar interstitial infiltrates with peribronchial thickening, edema versus atypical pneumonia. 2: Comminuted displaced right humeral neck fracture.
--- NOTE | ~2022-07-01 | XR_ITS ---
EXAMINATION: XR chest 1V portable Exam Date/Time: 07/13/2022 20:50 CDT HISTORY: sob Comparison: 07/08/2022. RESULT: Lines, tubes, and devices: Median sternotomy wires. One wire is fractured and remains in stable posi tion. A left upper extremity PICC terminating in the SVC. Mediastinal surgical clips. Lungs and pleura: Improving airspace disease. Worsening diffuse reticular opacities. Cardiomediastinal silhouette: Stable. Other: No acute osseous or upper abdominal finding. IMPRESSION: Worsening reticular opacities may represent worsening interstitial edema. Improving airspace disease previously described as pneumonia.. Reviewed, dictated and finalized at location K. IMPRESSION: Worsening reticular opacities may represent worsening interstitial edema. Impro ving airspace disease previously described as pneumonia..
--- NOTE | ~2022-07-01 | CT_ITS ---
EXAMINATION: CT brain wo con DATE: 07/20/2022 14:14 INDICATION: Confusion. TECHNIQUE: Computed tomography (CT) of the head was performed without intravenous contrast. The mA wa s adjusted according to patient size. Iterative reconstruction technique was employed. The dose-lengt h product was 605.33 mGy-cm. COMPARISON: 07/01/2022. FINDINGS: No acute intracranial hemorrhage or extra-axial fluid collection. No hydrocephalus, mass, or herniation. No acute ischemic infarct. Unremarkable dural venous sinus attenuation. No acute osseous abnormality. The aerated spaces are clear. Mild atrophy and moderate chronic white matter change. Atherosclerotic intracranial calcification. Bi lateral lens replacements. IMPRESSION: No acute intracranial process. Reviewed, dictated and finalized at location K.
--- NOTE | ~2022-07-01 | XR_ITS ---
EXAMINATION: XR barium swallow modified DATE: 07/16/2022 13:54 INDICATION: Dysphagia. TECHNIQUE: The patient was given barium-containing material of multiple consistencies to swallow by t he speech pathologist while I performed fluoroscopy. Fluoroscopy exposure time was 0.7 minutes. The n umber of fluoroscopy images saved to the PACS was 1. Dose-area product was 0.747 Gy-cm^2. FINDINGS: There is reduced laryngeal elevation, reduced tongue base retraction, and mild piriform sinus residue . There is laryngeal penetration with thin liquids. IMPRESSION: 1. Laryngeal penetration with thin liquids. 2. Please refer to the speech therapy report for recommendations. Reviewed, dictated and finalized at location A.
--- NOTE | ~2022-07-01 | XR_ITS ---
EXAMINATION: XR chest 1V portable DATE: 07/08/2022 17:21 INDICATION: Congestive heart failure and pneumonia. TECHNIQUE: AP view of the chest was obtained. COMPARISON: Chest radiograph dated 07/07/2022 FINDINGS: Increase in patchy airspace opacities in the right mid and lower lung zone consistent with worsening pneumonia. No change in subtle patchy airspace opacities in the left mid and lower lung zones. No pne umothorax or pleural effusion. The cardiomediastinal silhouette is normal. Median sternotomy wires an d mediastinal surgical clips are seen, likely from prior coronary artery bypass grafting. IMPRESSION: 1. Patchy airspace opacities in the bilateral mid and lower lung zones with prominent callus signific ant interval increase on the right consistent with worsening multifocal pneumonia. Reviewed, dictated and finalized at location A. STITCHER IMPRESSION: 1. Patchy airspace opacities in the bilateral mid and lower lung zones with pro minent callus significant interval increase on the right consistent with worsen ing multifocal pneumonia.
--- NOTE | ~2022-07-01 | XR_ITS ---
EXAMINATION: XR shoulder RT min 2V INDICATION: Right shoulder pain after fall TECHNIQUE: Three views of the right shoulder are submitted. COMPARISON: 06/23/2022 FINDINGS: Again seen is a transverse neck fracture of the proximal humerus. The distal fracture fragm ent now demonstrates anterior and medial displacement with respect to the proximal humerus. No additi onal fracture is identified. There is soft tissue swelling of the shoulder. Median sternotomy wires a nd mediastinal surgical clips are seen, likely from prior coronary artery bypass grafting. IMPRESSION: 1. Interval displacement of the previously described proximal humerus fracture. Reviewed, dictated and finalized at location F. ORDER HAND
--- NOTE | ~2022-07-01 | XR_ITS ---
EXAMINATION: XR chest 1V portable DATE: 07/14/2022 13:22 INDICATION: Hypoxia TECHNIQUE: frontal view of the chest was obtained. COMPARISON: Chest radiograph dated 07/13/2022 FINDINGS: Left upper extremity peripherally inserted central venous catheter (PICC) tip at the superior cavoat rial junction. Again seen are bilateral perihilar predominant airspace opacities. No pleural effusion or pneumothorax. Borderline heart size accounting for AP technique. Median sternotomy wires and medi astinal surgical clips are seen, likely from prior coronary artery bypass grafting. Cholecystectomy clips in right upper quadrant. Small amount of residual oral contrast at the splenic flexure of the c olon. Internally fixed comminuted fracture of the proximal right humeral neck. IMPRESSION: 1. No significant change in perihilar predominant bilateral airspace opacities which could represent pneumonia or pulmonary edema. 2. Borderline heart size. Reviewed, dictated and finalized at location B.
--- NOTE | ~2022-07-01 | US_ITS ---
EXAMINATION: US abdomen limited DATE: 07/01/2022 16:55 INDICATION: Abnormal liver function tests. TECHNIQUE: Multiple grayscale and Doppler ultrasound images of the abdomen were obtained. COMPARISON: CT abdomen and pelvis 07/01/2022 FINDINGS: The visualized portion of the body of the pancreas is normal. The liver is normal without f ocal lesion. There is normal flow in main portal vein. The gallbladder is absent. The common duct is normal and measures 4 mm. IMPRESSION: 1. Normal right upper quadrant ultrasound status post cholecystectomy. Reviewed, dictated and finalized at location A. E AND LIGHTING DESIGN LECTURER
--- NOTE | ~2022-07-01 | XR_ITS ---
EXAMINATION: XR chest 1V portable DATE: 07/07/2022 03:26 INDICATION: Shortness of breath TECHNIQUE: frontal view of the chest was obtained. COMPARISON: Chest radiograph dated 07/04/2022 FINDINGS: Increasing mild patchy airspace opacities throughout the left lung and in the right lower lung zone. No pleural effusion or pneumothorax. Cardiomegaly. Median sternotomy wires and mediastinal surgical c lips are seen, likely from prior coronary artery bypass grafting. Enlargement of the central pulmonar y arteries consistent with pulmonary arterial hypertension. IMPRESSION: 1. Increasing opacity scattered throughout the left lung and in the right lower lung zone consistent with worsening pneumonia versus less likely pulmonary edema. Reviewed, dictated and finalized at location A. UNICATIONS SENIOR ASSOCIATE IMPRESSION: 1. Increasing opacity scattered throughout the left lung and in the right lower lung zone consistent with worsening pneumonia versus less likely pulmonary sandip
--- NOTE | ~2022-07-01 | XR_ITS ---
EXAMINATION: XR hip RT 2V w AP pelvis INDICATION: Right hip pain TECHNIQUE: AP view the pelvis and two views of the right hip are obtained. COMPARISON: None available FINDINGS: Bone alignment is normal. There is no fracture. Calcified atherosclerosis is noted. 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 Contrast from earlier CT opacifies the urinary bladder. IMPRESSION: 1. No acute osseous abnormality. Reviewed, dictated and finalized at location F. P FOLDING MACHINE OPERATOR
--- NOTE | ~2022-07-01 | CT_ITS ---
EXAMINATION: CT abdomen pelvis w con DATE: 07/06/2022 15:02 INDICATION: New onset anemia TECHNIQUE: Computed tomography (CT) of the abdomen and pelvis was performed with 100 CC Omnipaque 350 intravenous contrast. Automated exposure control and iterative reconstruction technique were employe d. Exam dose: 1450.48 mGy-cm total exam DLP. COMPARISON: 07/01/2022 CT chest abdomen pelvis FINDINGS: Status post sternotomy. New bilateral pleural effusions with associated mild bilateral lowe r lobe dependent atelectasis. There is edema of the chest and abdominal and pelvic finney addition to to proximal thighs. There are patchy bilateral pulmonary infiltrates which may be due to pneumonia or pulmonary edema. Heart size is within normal range. Prominent coronary calcification. No pericardial effusion. Status post cholecystectomy. Calcified hepatic and splenic granulomas. No hepatic, pancreatic, spleni c, adrenal or renal space occupying mass lesion is detected. Normal splenic size. There is an infrarenal up to 3.2 cm infrarenal fusiform abdominal aortic aneurysm. There is extensive calcification of the abdominal aorta, iliac and femoral arteries. There is calcification of the micky l arteries as well, especially on the left. Celiac and superior mesenteric artery calcifications. No intraperitoneal or retroperitoneal or pelvic mass lesion or adenopathy. Minimal ascites is noted in the abdomen around the liver, spleen, paracolic gutters and dependent pel vis. There is a Cheek catheter in the urinary bladder. The bladder is evacuated. Prostate calcifications. Air-fluid levels of the stomach, small bowel and:. No bowel obstruction, bowel wall thickening, pneum atosis or intraperitoneal free air is detected. Prominent of fecal material in the rectum and colon. Small fat-containing left inguinal hernia. Osteopenia. Prominent degenerative spurring of the thoracic spine. There is multilevel severe degener ative disc disease of the lumbar spine. IMPRESSION: Interval bilateral mild pleural effusions, mild ascites and prominent edema of the chest, abdominal a nd pelvic finney and proximal thighs since 07/01/2022 (5 days ago) Interval prominent air-fluid levels of the stomach and involving the small and large bowel, new since 5 days ago Reviewed, dictated and finalized at [facility]. Reviewed, dictated and finalized at [facility]. ACCOUNTANT IMPRESSION: Interval bilateral mild pleural effusions, mild ascites and prominent edema of the chest, abdominal and pelvic finney and proximal thighs since 07/01/2022 (5 day s ago) Interval prominent air-fluid levels of the stomach and involving the small and large bowel, new since 5 days ago
--- NOTE | 2022-07-01 14:22 | ECG_ITS ---
Measurements Intervals [place] Rate: 63 P: 74 IN: 197 QRS: 54 QRSD: 114 T: 0 QT: 436 QTc: 449 Interpretive Statements SINUS RHYTHM INTRAVENTRICULAR CONDUCTION DELAY BORDERLINE ST-T WAVE ABNORMALITY- DIFFUSE LEADS BASELINE ARTIFACT- I, II, III, AVR, AVL, AVF, V1-V4 BORDERLINE ECG COMPARED TO ECG 09/16/2021 11:11:32 INTRAVENTRICULAR CONDUCTION DELAY NOW PRESENT Electronically Signed On 07-01-2022 15:47:04 BIOMEDICAL PHOTOGRAPHER by Shady Reyes D.O.
[2022-07-01] MEDS: NALOXONE HCL 0.4 MG/ML VIAL IV PUSH (14:35)
--- NOTE | 2022-07-01 14:36 | ED.GENADULT ---
HPI - General Adult General Chief complaint: Weakness Stated complaint: falls, weakness Time Seen by Provider: 07/01/22 14:18 History of Present Illness HPI narrative: 71-year-old male with history of previous arm fracture presenting the emergency department for evaluation after being found on the ground. Patient's brother went to check on him and found the patient lying on the ground, patient states he been on the floor for approximately 9 hours. Patient's brother states that the patient does take a lot of pain medications as well, he was concerned that the patient may be abusing Xanax and Vicodin. Patient had a fall last Tuesday resulting in a fracture of the proximal humerus. Patient had a fall on Tuesday resulting in no new injury and patient had the fall today. Patient states he is a smoker and has history of COPD. Patient denies being on oxygen at home. Patient denies any new falls or injuries Related Data Home Medications Medication Instructions Recorded Confirmed aspirin 81 mg chewable tablet 2 tablet PO DAILY 07/21/20 03/21/21 baclofen 10 mg tablet 10 mg PO DAILY 07/21/20 07/01/22 cholecalciferol (vitamin D3) 50 50 mcg PO DAILY 07/21/20 03/21/21 mcg (2,000 unit) capsule escitalopram oxalate 20 mg tablet 20 mg PO HS 07/21/20 03/21/21 fluticasone fur. 100 mcg-umeclid 1 inh inhalation DAILY 07/21/20 03/21/21 62.5 mcg-vilant 25 mcg inhalat.powder (Trelegy Ellipta) levothyroxine 125 mcg capsule 125 mcg PO DAILY 07/21/20 03/21/21 mecobalamin (vitamin B12) 1,000 1,000 mcg PO DAILY 07/21/20 03/21/21 mcg chewable tablet (B12 Active) multivitamin 1 tablet PO DAILY 07/21/20 03/21/21 nitroglycerin 400 mcg/spray 1 spray translingual Q5M PRN Chest 07/21/20 03/21/21 translingual Pain simvastatin 20 mg tablet 20 mg PO DAILY 07/21/20 03/21/21 tramadol 50 mg tablet 50 mg PO Q6H PRN Pain 07/21/20 03/21/21 esomeprazole magnesium 40 mg 40 mg PO DAILY 11/21/21 11/21/21 capsule,delayed release ranolazine 500 mg tablet,extended 500 mg PO Q12H 03/22/21 03/22/21 release,12 hr Allergies Allergy/AdvReac Type Severity Reaction Status Date / Time atorvastatin Allergy Mild MADE ME Verified 09/16/21 14:10 SICK terbinafine Allergy Mild MADE ME Verified 09/16/21 14:10 SICK methocarbamol AdvReac Mild MADE ME Verified 09/16/21 14:10 SICK Review of Systems Review of Systems: CONSTITUTIONAL: Ill-appearing EYES: Denies visual changes, redness, or discharge. ENT: Denies rhinorrhea, congestion, sore throat, or otalgia. CARDIOVASCULAR: Denies chest pain, palpitations, or edema. RESPIRATORY: Cough and congestion GASTROINTESTINAL: Denies abdominal pain, nausea, vomiting, or diarrhea. GENITOURINARY: Denies dysuria or hematuria. SKIN: Ecchymosis of right shoulder and jaundice of face MUSCULOSKELETAL: Denies back pain, joint pain, or myalgia. NEUROLOGIC: Denies headache, numbness, or weakness. [facility] Past Medical History Medical History Basal cell carcinoma COPD (chronic obstructive pulmonary disease) Coronary artery disease Dr. Alhaji ALCANTAR (gastroesophageal reflux disease) High cholesterol History of thyroid cancer Treated with chemotherapy and radiation Hypertension Hypothyroidism Lung cancer Status post right upper lobe pneumonectomy Peripheral neuropathy Surgical History Surgical History H/O right inguinal hernia repair (08/06/20) Repair of right inguinal hernia with 6 cm Parietex hernia mesh system History of bilateral carpal tunnel release History of colonoscopy History of coronary angioplasty History of esophagogastroduodenoscopy (EGD) 2006 History of hemorrhoidectomy History of left inguinal hernia repair (11/2018) With 8 cm of [address]ex mesh dr. Stapleton History of medial meniscus repair of right knee (~2005) History of pneumonectomy (~2014) Right upper lobe due to lung cancer History
[2022-07-01 14:46] LABS: Basophils Percent Auto 0.3 % (0.2-1.2); Eosinophils Percent Auto 0.1 % (0-4.4); Hematocrit 25.9 % (42.0-52.0); Hemoglobin 8.8 g/dL (14.0-18.0); Immature Granulocyte Absolute 0.16 K/mm3 (0.00-0.031); Immature Granulocyte Percent A 1.7 % (0-0.5); Lymphocytes Percent Auto 4.2 % (18.3-44.2); Mean Corpuscular Hemoglobin 30.9 pg (26-34); Mean Corpuscular Volume 90.9 fl (80-100); Mean Platelet Volume 9.5 fl (7.4-10.4); Monocytes Absolute Auto 0.5 K/mm3 (0.1-0.6); Monocytes Percent Auto 5.4 % (2.6-8.5); Neutrophils Absolute Auto 8.4 K/mm3 (1.3-6.7); Neutrophils Percent Auto 88.3 % (45.5-73.1); Nucleated Red Blood Cells Absolute Auto 0.1 K/mm3 (0.0-0.012); Nucleated Red Blood Cells Perc 0.5 % (0.0-0.2); Platelet Count Result 217 k/mm3 (150-375); Red Blood Count 2.85 M/mm3 (4.6-6.20); Red Cell Distribution Width 16.5 % (11.5-14.5); White Blood Count 9.6 K/mm3 (4.5-10.0)
[2022-07-01 14:54] LABS: INR 1.1; Partial Thromboplastin Time 34.2 SECONDS (22.3-36.8); Prothrombin Time 13.3 Seconds (11.1-14.7)
[2022-07-01 14:55] LABS: Alanine Aminotransferase 61 U/L (6-50); Albumin Level 4.5 g/dL (3.5-5.1); Alkaline Phosphatase 101 U/L (38-126); Anion Gap 8 mmol/L (8-16); Aspartate Amino Transferase 197 U/L (17-59); Bilirubin,Total 2.5 mg/dL (0.2-1.3); Blood Urea Nitrogen 17 mg/dL (9-20); Calcium 8.6 mg/dL (8.4-10.2); Carbon Dioxide 32 mmol/L (22-30); Chloride 90 mmol/L (98-107); Estimated Glomerular Filt Rate > 60; Glucose 101 mg/dL (65-110); Potassium 3.8 mmol/L (3.4-5.0); Sodium 130 mmol/L (137-145)
[2022-07-01 15:09] LABS: Anisocytosis 1+ (NORMAL); Ovalocytes 1+ (NORMAL); Platelet Estimate Adequate (Adequate); Schistocytes None Seen (NORMAL); Target Cells 1+ (NORMAL)
[2022-07-01 15:45] LABS: Appearance Urine Clear (Clear); Bacteria Urine None Seen /hpf; Bilirubin Urine 1+ (Negative); Blood Urine Negative (Negative); Color Urine Dark Yellow (Yellow); Glucose Urine UA Negative (Negative); Ketones Urine Negative (Negative); Leukocyte Esterase Ur Trace LEU/UL (Negative); Nitrate Urine Negative (Negative); Non Pathogenic Casts 0-2; Protein Urine Trace mg/dL (Negative); RBC Urine 0-2 /hpf (0-2); Specific Grav Ur 1.016 (1.001-1.035); Squamous Epithelial Cell Urine None seen /hpf (Few); WBC Urine 0-5 /hpf; pH Urine 6.5 (5.0-9.0)
[2022-07-01 15:47] LABS: Add Urine Microscopic? YES
[2022-07-01 15:55] LABS: Creatine Kinase 10555 U/L (55-170)
[2022-07-01] MEDS: SODIUM CHLORIDE 0.9% IV 1,000 ML 999 ML IV CONT (16:11)
--- NOTE | 2022-07-01 16:27 | PC.NURSE ---
A relative called for an update. Confirmed with patient that we have permission to speak with relative about the patients care.
--- NOTE | 2022-07-01 17:32 | PM.IMHP ---
H&P: HPI History of Present Illness Date/Time: 07/01/22 17:32 Chief Complaint: weakness and fall Narrative: this is a 71-year-old male patient who has a history of having multiple falls. The patient was seen in the emergency room on 06/23/2022 when he fell in the parking lot at [employer] landed on his right shoulder. At the time Dr. Collins was notified of patient's injuries and the patient was recommended a sling and follow-up in the orthopedic office. The patient had a skin tear on the right arm and Steri-Strips were applied to approximate the skin tear. On that day a humerus x-ray shows comminuted mildly displaced proximal right femoral fracture. Shoulder x-ray shows comminuted mildly displaced proximal right femoral fracture. Head CT was read as no acute intracranial process.the patient lives home alone and takes care of himself. However today the patient came in to the emergency room to be evaluated after being found on the ground. The patient's brother checked on him today and found the patient lying on the ground. The patient states that he has been on the ground for approximately 9 hours. The patient has been taking multiple medications such as Xanax and Vicodin. The patient also is wheezing. The patient has a hematoma on the top of his head he has severe extensive purple bruising to the right arm and the left arm. Patient has purple bruising to his flank area as well as the right hip. His hip x-ray was read as no acute osseous abnormality. His liver enzymes were elevated and his abdominal ultrasound shows normal right upper quadrant ultrasound status post Cholecystectomy. CT of the chest abdomen and pelvis was read as1. Minimal airspace opacities of the upper lobes, likely pneumonia. 2. Mild focal dilatation of the third portion of the duodenum of unclear etiology, likely ileus. 3. 3.2 cm fusiform infrarenal abdominal aortic aneurysm. 4. Comminuted and displaced fracture of the proximal right humerus. shoulder x-ray was read as1. Minimal airspace opacities of the upper lobes, likely pneumonia. 2. Mild focal dilatation of the third portion of the duodenum of unclear etiology, likely ileus. 3. 3.2 cm fusiform infrarenal abdominal aortic aneurysm. 4. Comminuted and displaced fracture of the proximal right humerus. head CT was read as stable moderate nonspecific cerebral white matter disease which likely represents chronic small vessel ischemic disease. The patient was started on Zosyn for the possibility of aspiration pneumonia. Patient's chest x-ray was read as: Bilateral perihilar interstitial infiltrates with peribronchial thickening, edema versus atypical pneumonia. 2: Comminuted displaced right humeral neck fracture. His H&H is 8.8 and 25.9. He was previously 15.3 and 44.9 on 09/16/2021. Sodium levels 130. Total bilirubin is 2.5 AST is 197 ALT 61 and total creatinine kinase 10,555.the patient is being admitted to inpatient status on the date of service of 07/01/2022. Review of Systems Review of Systems: See HPI. The family members were answering the questions for him. All systems reviewed & are unremarkable except as noted in HPI and below Constitutional: Constitutional: Reports as per HPI and Reports no additional constitutional complaints Eyes: Eyes: Reports as per HPI and Reports no additional eye complaints ENT: Reports system reviewed and no additional complaints, except as documented and Reports Normal hearing present Cardiovascular: Cardiovascular: Reports no additional cardiovascular complaints Respiratory: Respiratory: Reports no additional respiratory complaints and Reports no additional respiratory complaints Gastrointestinal: Gastrointestinal: Reports as per HPI and Reports no additional gastrointestinal complaints Musculoskeletal: Musculoskeletal: Reports no additional musculoskeletal complaints Integumentary/Breasts: Skin/Breast: Reports system reviewed and no additional complaints, except as docu and
--- NOTE | 2022-07-01 18:40 | ADMGEN ---
This patient, Cecilio Bergeron, was admitted to IMU Room 231-01. Patient/family oriented to hospital policies and general routines including ID bracelet, bed and alarms, visiting hours, pain management, procedures, bathroom and other care routines, personal items, smoking policy, room service/diet, and visiting hours. Information on how to activate the Rapid Response Team has been discussed. Patient/Family are encouraged to report perceived risks to care and to ask questions if they do not understand what they are told or what they should do.
[2022-07-01] MEDS: SODIUM CHLORIDE 0.9% IV 1,000 ML 125 ML IV CONT (19:04)
[2022-07-01] MEDS: ALBUTEROL SULFATE NEB 2.5 MG/3 ML INH INHALATION (19:42)
[2022-07-01] MEDS: IPRATROPIUM BR 0.02% INH SOLN 0.5 MG/2.5 ML VIAL INHALATION (19:42)
[2022-07-01] MEDS: PIPERACILLIN/TAZOBACTAM SOD 4.5 GM in SODIUM CHLORIDE 0.9% IV 100 ML 200 ML IVPB (20:05)
[2022-07-01] MEDS: SCOPOLAMINE 1.5 MG PATCH TRANSDERM (20:17)
[2022-07-01 20:25] LABS: Hematocrit 22.5 % (42.0-52.0); Hemoglobin 7.4 g/dL (14.0-18.0)
[2022-07-01] MEDS: FUROSEMIDE INJ 40 MG/4 ML VIAL 20 MG IV PUSH (21:20)
[2022-07-01] MEDS: methylPREDNISolone SOD SUCC 125 MG VIAL 60 MG IV PUSH (21:21)
[2022-07-01] MEDS: SODIUM CHLORIDE 0.9% IV 250 ML 30 ML IV CONT (23:00)
[2022-07-01] MEDS: TUBING, BLOOD PLUM PUMP TUBING 1 EACH XX (23:00)
[2022-07-02] VITALS (26 sets, daily range): BP systolic 96–131; BP diastolic 52–70; PULSE 61–96; RESP 16–23; TEMP 36.5–36.8; O2SAT 86–100; BMI 27.6
[2022-07-02] MEDS: IPRATROPIUM BR 0.02% INH SOLN 0.5 MG/2.5 ML VIAL INHALATION ×4 (02:45→21:37)
[2022-07-02] MEDS: ALBUTEROL SULFATE NEB 2.5 MG/3 ML INH INHALATION ×4 (02:45→21:37)
[2022-07-02] MEDS: PIPERACILLIN/TAZOBACTAM SOD 4.5 GM in SODIUM CHLORIDE 0.9% IV 100 ML 200 ML IVPB ×4 (03:26→20:47)
[2022-07-02] MEDS: SODIUM CHLORIDE 0.9% IV 1,000 ML 125 ML IV CONT ×3 (04:00→22:14)
--- NOTE | 2022-07-02 04:38 | PC.NURSE ---
Give one time 20 Lasix IVP after second unit of blood is complete if blood pressure is 110/60 or greater per Makeda Copeland.
[2022-07-02] MEDS: FUROSEMIDE INJ 40 MG/4 ML VIAL 20 MG IV PUSH (04:53)
[2022-07-02] MEDS: methylPREDNISolone SOD SUCC 125 MG VIAL 60 MG IV PUSH ×3 (05:22→21:07)
[2022-07-02 06:30] LABS: Hematocrit 28.5 % (42.0-52.0); Hemoglobin 9.7 g/dL (14.0-18.0); Mean Corpuscular Volume 88.2 fl (80-100); Mean Platelet Volume 9.3 fl (7.4-10.4); Platelet Count Result 183 k/mm3 (150-375); Red Blood Count 3.23 M/mm3 (4.6-6.20); Red Cell Distribution Width 15.9 % (11.5-14.5); White Blood Count 7.7 K/mm3 (4.5-10.0)
[2022-07-02 06:38] LABS: Lactic Acid Reflex 0.9 mmol/L (0.7-2.0)
[2022-07-02 06:51] LABS: Alanine Aminotransferase 51 U/L (6-50); Albumin Level 3.6 g/dL (3.5-5.1); Alkaline Phosphatase 81 U/L (38-126); Anion Gap 6 mmol/L (8-16); Aspartate Amino Transferase 131 U/L (17-59); Bilirubin,Total 2.1 mg/dL (0.2-1.3); Blood Urea Nitrogen 13 mg/dL (9-20); Calcium 7.4 mg/dL (8.4-10.2); Carbon Dioxide 27 mmol/L (22-30); Chloride 95 mmol/L (98-107); Estimated CRCL calculation 120 ml/min; Estimated Glomerular Filt Rate > 60; Glucose 110 mg/dL (65-110); Lipase 23 U/L (23-300); Magnesium 1.7 mg/dL (1.6-2.3); Potassium 3.4 mmol/L (3.4-5.0); Sodium 128 mmol/L (137-145)
[2022-07-02 08:30] LABS: Band Neutrophils Percent 7 % (0-6); Lymphocytes Absolute Manual 0.15 K/mm3 (1.1-4.5); Monocytes Absolute Manual 0.15 K/mm3 (0.1-0.90); Monocytes Percent Manual 2 % (3-9); Neutrophils Absolute Manual 7.39 K/mm3 (1.3-6.7); Neutrophils Percent Manual 89 % (46-73); Total Cells Counted 100
[2022-07-02 08:31] LABS: Anisocytosis 1+ (NORMAL); Platelet Estimate Adequate (Adequate); Schistocytes 1+ (NORMAL)
--- NOTE | 2022-07-02 11:48 | PM.CNOR ---
Assessment and Plan Assessment and plan (1) Closed fracture of right proximal humerus: Qualifiers: Encounter type: initial encounter Fracture morphology: other fracture Fracture alignment: displaced Qualified Code(s): S42.291A - Other displaced fracture of upper end of right humerus, initial encounter for closed fracture Code(s): S42.201A - Unspecified fracture of upper end of right humerus, initial encounter for closed fracture Status: Acute Assessment and Plan: 71-year-old male with a displaced right proximal humerus fracture. In an ideal world this be stabilized surgically. He has a ways to go before he would be ready medically for this. I will follow along while he is in the hospital. Hopefully in the early part of this coming week he will be in good enough shape to be able to stabilize this. I will review this with the hospitalist group. Thank you for the consultation. History of Present Illness HPI Consult date: 07/02/22 Consult reason: fracture Chief complaint: Rhabdomyolysis,Pneumonia,Anemia,Shoulder Fracture Narrative: This document created with [id number] technology and is subject to internal combustion engineer irregularities. 71-year-old male who is last week fell suffering a right proximal humerus fracture. This was mildly angulated and impacted but was in decent position. He fell again apparently yesterday and was down for while. He is admited with rhabdomyolysis but also he has got displacement of the right proximal humerus fracture . In addition to the rhabdomyolysis he has got pneumonia. Review of Systems Constitutional: Constitutional: Reports no additional constitutional complaints, Denies excessive sweating and Denies fatigue PMFSH Past Medical History Medical History (Updated 07/02/22 @ 11:55 by Leonel Collins MD) Basal cell carcinoma Closed fracture of right proximal humerus COPD (chronic obstructive pulmonary disease) Coronary artery disease Dr. Mane GERD (gastroesophageal reflux disease) High cholesterol History of thyroid cancer Treated with chemotherapy and radiation Hypertension Hypothyroidism Lung cancer Status post right upper lobe pneumonectomy Peripheral neuropathy Surgical History Surgical History H/O right inguinal hernia repair (08/06/20) Repair of right inguinal hernia with 6 cm Parietex hernia mesh system History of bilateral carpal tunnel release History of colonoscopy History of coronary angioplasty History of esophagogastroduodenoscopy (EGD) 2006 History of hemorrhoidectomy History of left inguinal hernia repair (11/2018) With 8 cm of Parietex mesh dr. Stapleton History of medial meniscus repair of right knee (~2005) History of pneumonectomy (~2014) Right upper lobe due to lung cancer History of ventral hernia repair (~06/2006) Gastric volvulus with ventral hernia repair Hx of CABG (~09/2002) 4 vessel CABG Hx of cholecystectomy Status post cataract extraction of both eyes with insertion of intraocular lens (~2015) Family History Family History Mother MVA (motor vehicle accident) Father Gunshot wound Sibling Heart disease Other Family history of cardiovascular disease Social History Social History (Updated 07/01/22 @ 20:31 by Makeda Copeland NP) Social History: He lives alone. He has smoked as much as a pack of cigarettes per day since he was 20 years old. He is now down to 4-5 cigarettes a day. 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 code status full code Smoking packs per day: 1 Smoking cigarettes per day: 20.0 Years smoked: 50 Smoking pack-years: 50.00 Smoking status: Current every day smoker Tobacco type: cigarettes Second hand tobacco smoke exposure: Yes Alcohol intake: never Drinks per week
[2022-07-02] MEDS: traMADol HCL (*CRX) 50 MG TABLET PO (11:51)
[2022-07-02 12:21] LABS: Free T4 Free Thyroxine Reflex 0.17 ng/dL (0.78-2.19)
[2022-07-02 12:23] LABS: Hematocrit 28.2 % (42.0-52.0); Hemoglobin 9.5 g/dL (14.0-18.0)
[2022-07-02 13:00] LABS: Creatine Kinase 6314 U/L (55-170)
--- NOTE | 2022-07-02 13:01 | PM.IMPN ---
Progress Note: A&P Assessment and Plan (1) Rhabdomyolysis: Code(s): M62.82 - Rhabdomyolysis Status: Acute Assessment and Plan: The patient was laying on the floor in his home for approximately 9 hours. Is felt that perhaps the patient had overmedicated himself was Xanax and Vicodin. CK is 10,555. continue with IV fluids. c/w IV fluid Continue to monitor CK and renal panel the patient has multiple bruising on his right cheek both arms his upper chest right flank right hip. skin laceration of right arm (2) Pneumonia: Code(s): J18.9 - Pneumonia, unspecified organism Status: Acute Assessment and Plan: - started the patient on Zosyn for the possibility of aspiration pneumonia. - tailor antibiotics to culture and sensitivity reports. - sputum and blood cultures are pending. (3) Anemia: Code(s): D64.9 - Anemia, unspecified Status: Acute Assessment and Plan: H&H every 6 hours. His H&H initially was 8.8 and 25.9 compared with his last H&H of 15.3 and 44.9 on 09/16/2021. At this point repeat H&H is 7.42 And 2.5. patient's coags are within normal limit. Type and crossmatch for 2 units of packed red blood cells. Give Lasix in between the 2 units (4) Fracture, humerus: Code(s): S42.309A - Unspecified fracture of shaft of humerus, unspecified arm, initial encounter for closed fracture Status: Deleted Assessment and Plan: Dr. Collins has been consulted. medical management now, may need surgical treatment later f/u recommedations (5) Hyperbilirubinemia: Code(s): E80.6 - Other disorders of bilirubin metabolism Status: Acute Assessment and Plan: Related to the rhabdomyolysis (6) COPD (chronic obstructive pulmonary disease): Qualifiers: COPD type: unspecified COPD Qualified Code(s): J44.9 - Chronic obstructive pulmonary disease, unspecified Code(s): J44.9 - Chronic obstructive pulmonary disease, unspecified Status: Acute Assessment and Plan: possible COPD exacerbation due to pneumonia -continue with nebulizer treatment -continue Solu-Medrol (7) Closed fracture of right proximal humerus: Qualifiers: Encounter type: initial encounter Fracture alignment: displaced Fracture morphology: other fracture Qualified Code(s): S42.291A - Other displaced fracture of upper end of right humerus, initial encounter for closed fracture Code(s): S42.201A - Unspecified fracture of upper end of right humerus, initial encounter for closed fracture Status: Acute (8) Acute respiratory failure with hypoxemia: Code(s): J96.01 - Acute respiratory failure with hypoxia Status: Acute Assessment and Plan: resulting from COPD exacerbation and pneumonia Start O2 therapy to keep pulse ox above 92 Subjective Date/time seen: 07/02/22 13:01 Review of Systems Review of Systems: I saw the patient today, patient is lethargic, able answer questions, felt short of breath and cough Exam Narrative: GENERAL: ill-appearing in no acute distress. Well-nourished. - EYES: EOMI. Anicteric. - HENT: Moist mucous membranes. - LUNGS: Clear to auscultation bilaterally, no wheezing, rhonchi, or rales. - CARDIOVASCULAR: Regular rate and rhythm. No murmur. No JVD. - ABDOMEN: Soft, non-tender and non-distended. No palpable masses. - EXTREMITIES: No edema. Peripheral pulses 2+. tender over right upper arm - NEUROLOGIC: No focal neurological deficits. CN II-XII grossly intact. - PSYCHIATRIC: Awake, Alert and oriented x 3. Appropriate mood and affect. - SKIN: bruises ecchymosis of right chest, upper right arm and broken skin of right arm - LYMPH: No cervical lymphadenopathy. Objective Data Vital Signs Vital Signs: Vital Signs - 24 hr 07/01/22 14:13 07/01/22 14:22 07/01/22 14:29 Temperature Pulse Rate 65 64 Respiratory Rate 16 Blood Pressure 143/84 H Pulse Oximetry 9
[2022-07-02] MEDS: HYDROcodone/acetaminophen (*CRX) 5-325 MG TABLET 1 TAB PO ×2 (13:45→22:02)
[2022-07-02] MEDS: SILVERGEL (ELTA) 45 ML 1 APPLIC TOPICAL (13:45)
[2022-07-02 18:20] LABS: Hematocrit 28.1 % (42.0-52.0); Hemoglobin 9.6 g/dL (14.0-18.0)
[2022-07-03] VITALS (26 sets, daily range): BP systolic 96–140; BP diastolic 56–77; PULSE 61–81; RESP 12–20; TEMP 36.4–36.7; O2SAT 93–100
[2022-07-03] MEDS: PIPERACILLIN/TAZOBACTAM SOD 4.5 GM in SODIUM CHLORIDE 0.9% IV 100 ML 200 ML IVPB ×4 (02:33→21:00)
[2022-07-03] MEDS: ALBUTEROL SULFATE NEB 2.5 MG/3 ML INH INHALATION ×4 (02:47→22:29)
[2022-07-03] MEDS: IPRATROPIUM BR 0.02% INH SOLN 0.5 MG/2.5 ML VIAL INHALATION ×4 (02:47→22:29)
[2022-07-03 04:30] LABS: Basophils Percent Auto 0.2 % (0.2-1.2); Hematocrit 23.8 % (42.0-52.0); Hemoglobin 8.3 g/dL (14.0-18.0); Immature Granulocyte Absolute 0.41 K/mm3 (0.00-0.031); Immature Granulocyte Percent A 3.7 % (0-0.5); Lymphocytes Absolute Auto 0.54 K/mm3 (0.9-3.2); Lymphocytes Percent Auto 4.8 % (18.3-44.2); Mean Corpuscular HGB Conc 34.9 g/dl (32-36); Mean Corpuscular Hemoglobin 30.1 pg (26-34); Mean Corpuscular Volume 86.2 fl (80-100); Mean Platelet Volume 9.1 fl (7.4-10.4); Monocytes Absolute Auto 0.6 K/mm3 (0.1-0.6); Monocytes Percent Auto 4.9 % (2.6-8.5); Neutrophils Absolute Auto 9.7 K/mm3 (1.3-6.7); Neutrophils Percent Auto 86.4 % (45.5-73.1); Nucleated Red Blood Cells Absolute Auto 0.1 K/mm3 (0.0-0.012); Nucleated Red Blood Cells Perc 0.7 % (0.0-0.2); Platelet Count Result 156 k/mm3 (150-375); Red Blood Count 2.76 M/mm3 (4.6-6.20); Red Cell Distribution Width 16.5 % (11.5-14.5); White Blood Count 11.2 K/mm3 (4.5-10.0)
[2022-07-03 04:52] LABS: Alanine Aminotransferase 42 U/L (6-50); Albumin Level 3.3 g/dL (3.5-5.1); Alkaline Phosphatase 69 U/L (38-126); Anion Gap 3 mmol/L (8-16); Aspartate Amino Transferase 82 U/L (17-59); Bilirubin,Total 1.5 mg/dL (0.2-1.3); Blood Urea Nitrogen 18 mg/dL (9-20); Calcium 7.4 mg/dL (8.4-10.2); Carbon Dioxide 29 mmol/L (22-30); Chloride 96 mmol/L (98-107); Creatine Kinase 2489 U/L (55-170); Estimated CRCL calculation 102 ml/min; Estimated Glomerular Filt Rate > 60; Glucose 136 mg/dL (65-110); Potassium 3.4 mmol/L (3.4-5.0); Sodium 128 mmol/L (137-145)
[2022-07-03] MEDS: methylPREDNISolone SOD SUCC 125 MG VIAL 60 MG IV PUSH ×3 (05:28→21:01)
[2022-07-03] MEDS: SODIUM CHLORIDE 0.9% IV 1,000 ML 125 ML IV CONT (06:52)
--- NOTE | 2022-07-03 07:19 | PC.NURSE ---
Received blood culture results from lab at 0657 on 07/03/22. Results: Preliminary gram + and clusters from aerobic bottle only. No answer from hospitalist. Passed on to dayshift RN.
[2022-07-03] MEDS: SILVERGEL (ELTA) 45 ML 1 APPLIC TOPICAL (08:38)
[2022-07-03] MEDS: HYDROcodone/acetaminophen (*CRX) 5-325 MG TABLET 1 TAB PO (08:47)
--- NOTE | 2022-07-03 13:49 | PM.IMPN ---
Progress Note: A&P Assessment and Plan (1) Rhabdomyolysis: Code(s): M62.82 - Rhabdomyolysis Status: Acute Assessment and Plan: The patient was laying on the floor in his home for approximately 9 hours. Is felt that perhaps the patient had overmedicated himself was Xanax and Vicodin. CK is 10,555. continue with IV fluids. c/w IV fluid Continue to monitor CK and renal panel the patient has multiple bruising on his right cheek both arms his upper chest right flank right hip. skin laceration of right arm CPK is trending down c/w NS iv 100 ml/h (2) Pneumonia: Code(s): J18.9 - Pneumonia, unspecified organism Status: Acute Assessment and Plan: - started the patient on Zosyn for the possibility of aspiration pneumonia. - tailor antibiotics to culture and sensitivity reports. - sputum and blood cultures are pending. (3) Anemia: Code(s): D64.9 - Anemia, unspecified Status: Acute Assessment and Plan: H&H every 6 hours. His H&H initially was 8.8 and 25.9 compared with his last H&H of 15.3 and 44.9 on 09/16/2021. At this point repeat H&H is 7.42 And 2.5. patient's coags are within normal limit. Type and crossmatch for 2 units of packed red blood cells. Give Lasix in between the 2 units (4) Fracture, humerus: Code(s): S42.309A - Unspecified fracture of shaft of humerus, unspecified arm, initial encounter for closed fracture Status: Deleted Assessment and Plan: Dr. Collins has been consulted. medical management now, may need surgical treatment later f/u recommedations (5) Hyperbilirubinemia: Code(s): E80.6 - Other disorders of bilirubin metabolism Status: Acute Assessment and Plan: Related to the rhabdomyolysis (6) COPD (chronic obstructive pulmonary disease): Qualifiers: COPD type: unspecified COPD Qualified Code(s): J44.9 - Chronic obstructive pulmonary disease, unspecified Code(s): J44.9 - Chronic obstructive pulmonary disease, unspecified Status: Acute Assessment and Plan: possible COPD exacerbation due to pneumonia -continue with nebulizer treatment -continue Solu-Medrol (7) Closed fracture of right proximal humerus: Qualifiers: Encounter type: initial encounter Fracture alignment: displaced Fracture morphology: other fracture Qualified Code(s): S42.291A - Other displaced fracture of upper end of right humerus, initial encounter for closed fracture Code(s): S42.201A - Unspecified fracture of upper end of right humerus, initial encounter for closed fracture Status: Acute (8) Acute respiratory failure with hypoxemia: Code(s): J96.01 - Acute respiratory failure with hypoxia Status: Acute Assessment and Plan: resulting from COPD exacerbation and pneumonia Start O2 therapy to keep pulse ox above 92 (9) Hyponatremia: Code(s): E87.1 - Hypo-osmolality and hyponatremia Status: Acute Assessment and Plan: on NS iv s/w sodium chloride 1 g t.i.d. po f/u BMP (10) Hypothyroidism: Code(s): E03.9 - Hypothyroidism, unspecified Status: Acute Assessment and Plan: Patient has history of hypothyroidism. not on meds TSH 39, free T4 0.17 Started synthroid 1.6 microgram/kilos, 150 mcg daily po f/u TSH and T4 per PCP Subjective Date/time seen: 07/03/22 13:49 Interval history: I saw and examined patient today. Patient mental status is improving. Patient engaged conversations. Patient feels tired. Denies chest pain, shortness of breath, still has body ache. CPK is trending down, renal function is normal. Elevated TSH and low free T4 Exam Narrative: GENERAL: ill-appearing in no acute distress. Well-nourished. - EYES: EOMI. Anicteric. - HENT: Moist mucous membranes. - LUNGS: Clear to auscultation bilaterally, no wheezing, rhonchi, or rales. - CARDIOVASCULAR: Regular rate and rhythm. No murm
[2022-07-03] MEDS: LEVOTHYROXINE SODIUM 150 MCG TABLET PO (15:03)
[2022-07-03] MEDS: SIMVASTATIN 20 MG TABLET PO (15:04)
[2022-07-03] MEDS: ASPIRIN 81 MG CHEWABLE TABLET 162 MG PO (15:05)
[2022-07-03] MEDS: PANTOPRAZOLE 40 MG TABLET PO (15:06)
[2022-07-03 16:08] LABS: Hemoglobin 8.7 g/dL (14.0-18.0)
[2022-07-03 16:31] LABS: Anion Gap 2 mmol/L (8-16); Blood Urea Nitrogen 18 mg/dL (9-20); Calcium 7.8 mg/dL (8.4-10.2); Carbon Dioxide 29 mmol/L (22-30); Chloride 97 mmol/L (98-107); Estimated CRCL calculation 102 ml/min; Estimated Glomerular Filt Rate > 60; Glucose 125 mg/dL (65-110); Potassium 3.5 mmol/L (3.4-5.0); Sodium 128 mmol/L (137-145)
[2022-07-03 16:40] LABS: NT Pro B Type Natriuretic Pept 1110 pg/mL (19.9-100)
[2022-07-03] MEDS: SODIUM CHLORIDE 0.9% IV 1,000 ML 100 ML IV CONT (17:40)
[2022-07-03] MEDS: SODIUM CHLORIDE 1 GM TABLET PO (17:40)
[2022-07-03] MEDS: ESCITALOPRAM OXALATE 10 MG TABLET 20 MG PO (21:00)
[2022-07-03] MEDS: RANOLAZINE 500 MG TAB.ER.12H PO (21:00)
[2022-07-04] VITALS (22 sets, daily range): BP systolic 123–176; BP diastolic 69–82; PULSE 61–73; RESP 16–20; TEMP 36.5–36.9; O2SAT 94–98
[2022-07-04] MEDS: IPRATROPIUM BR 0.02% INH SOLN 0.5 MG/2.5 ML VIAL INHALATION ×4 (02:30→21:11)
[2022-07-04] MEDS: ALBUTEROL SULFATE NEB 2.5 MG/3 ML INH INHALATION ×3 (02:30→13:09)
[2022-07-04] MEDS: PIPERACILLIN/TAZOBACTAM SOD 4.5 GM in SODIUM CHLORIDE 0.9% IV 100 ML 200 ML IVPB ×4 (04:00→20:13)
[2022-07-04 04:56] LABS: Creatine Kinase 1065 U/L (55-170)
[2022-07-04] MEDS: HYDROcodone/acetaminophen (*CRX) 5-325 MG TABLET 1 TAB PO ×2 (04:57→20:25)
[2022-07-04] MEDS: methylPREDNISolone SOD SUCC 125 MG VIAL 60 MG IV PUSH ×3 (05:00→21:20)
[2022-07-04] MEDS: LEVOTHYROXINE SODIUM 150 MCG TABLET PO (05:56)
[2022-07-04 09:51] LABS: Hemoglobin 9.5 g/dL (14.0-18.0); Mean Corpuscular HGB Conc 33.9 g/dl (32-36); Mean Corpuscular Hemoglobin 30.5 pg (26-34); Mean Platelet Volume 8.7 fl (7.4-10.4); Platelet Count Result 153 k/mm3 (150-375); Red Blood Count 3.11 M/mm3 (4.6-6.20); Red Cell Distribution Width 17.2 % (11.5-14.5); White Blood Count 15.1 K/mm3 (4.5-10.0)
[2022-07-04 10:03] LABS: Alanine Aminotransferase 46 U/L (6-50); Albumin Level 3.8 g/dL (3.5-5.1); Alkaline Phosphatase 73 U/L (38-126); Anion Gap 2 mmol/L (8-16); Aspartate Amino Transferase 75 U/L (17-59); Bilirubin,Total 1.4 mg/dL (0.2-1.3); Blood Urea Nitrogen 19 mg/dL (9-20); Calcium 8.3 mg/dL (8.4-10.2); Carbon Dioxide 29 mmol/L (22-30); Chloride 95 mmol/L (98-107); Estimated CRCL calculation 120 ml/min; Estimated Glomerular Filt Rate > 60; Glucose 120 mg/dL (65-110); Potassium 3.7 mmol/L (3.4-5.0); Sodium 126 mmol/L (137-145)
--- NOTE | 2022-07-04 10:23 | PM.IMPN ---
Progress Note: A&P Assessment and Plan (1) Rhabdomyolysis: Code(s): M62.82 - Rhabdomyolysis Status: Acute Assessment and Plan: The patient was laying on the floor in his home for approximately 9 hours. Is felt that perhaps the patient had overmedicated himself was Xanax and Vicodin. CK 10,555 POA down to 1065 receive IV fluids. dc IV fluid today CPK is trending down, renal function is normal (2) Pneumonia: Code(s): J18.9 - Pneumonia, unspecified organism Status: Acute Assessment and Plan: - started the patient on Zosyn for the possibility of aspiration pneumonia. - tailor antibiotics to culture and sensitivity reports. - 07/01 one of the blood cultures grows Staphylococcus aureus. Repeat blood culture today Continue antibiotics (3) Anemia: Code(s): D64.9 - Anemia, unspecified Status: Acute Assessment and Plan: His H&H initially was 8.8 and 25.9 compared with his last H&H of 15.3 and 44.9 on 09/16/2021. At this point repeat H&H is 7.42 Type and crossmatch for 2 units of packed red blood cells. Hemoglobin stable now (4) Fracture, humerus: Code(s): S42.309A - Unspecified fracture of shaft of humerus, unspecified arm, initial encounter for closed fracture Status: Deleted Assessment and Plan: Dr. Collins has been consulted. medical management now, may need surgical treatment later f/u recommedations (5) Hyperbilirubinemia: Code(s): E80.6 - Other disorders of bilirubin metabolism Status: Acute Assessment and Plan: Related to the rhabdomyolysis (6) COPD (chronic obstructive pulmonary disease): Qualifiers: COPD type: unspecified COPD Qualified Code(s): J44.9 - Chronic obstructive pulmonary disease, unspecified Code(s): J44.9 - Chronic obstructive pulmonary disease, unspecified Status: Acute Assessment and Plan: possible COPD exacerbation due to pneumonia -continue with nebulizer treatment -continue Solu-Medrol (7) Closed fracture of right proximal humerus: Qualifiers: Encounter type: initial encounter Fracture morphology: other fracture Fracture alignment: displaced Qualified Code(s): S42.291A - Other displaced fracture of upper end of right humerus, initial encounter for closed fracture Code(s): S42.201A - Unspecified fracture of upper end of right humerus, initial encounter for closed fracture Status: Acute (8) Acute respiratory failure with hypoxemia: Code(s): J96.01 - Acute respiratory failure with hypoxia Status: Acute Assessment and Plan: resulting from COPD exacerbation and pneumonia Start O2 therapy to keep pulse ox above 92 (9) Hyponatremia: Code(s): E87.1 - Hypo-osmolality and hyponatremia Status: Acute Assessment and Plan: Has history chronic hyponatremia Sodium is below the baseline received NS iv s/w sodium chloride 1 g t.i.d. po f/u BMP May concern her renal consultation if hyponatremia persists (10) Hypothyroidism: Code(s): E03.9 - Hypothyroidism, unspecified Status: Acute Assessment and Plan: Patient has history of hypothyroidism. not on meds TSH 39, free T4 0.17 Started synthroid 1.6 microgram/kilos, 150 mcg daily po f/u TSH and T4 per PCP Subjective Date/time seen: 07/04/22 10:23 Interval history: I saw and examined patient today. Patient condition continued to improve today, mentally clear,, denies denies chest pain, shortness of breath, still has body ache. CPK is trending down, renal function is normal. Exam Narrative: GENERAL: ill-appearing in no acute distress. Well-nourished. - EYES: EOMI. Anicteric. - HENT: Moist mucous membranes. - LUNGS: Clear to auscultation bilaterally, no wheezing, rhonchi, or rales. - CARDIOVASCULAR: Regular rate and rhythm. No murmur. No JVD. - ABDOMEN: Soft, non-tender and non-distended. No palpable masses. - EXTREMITIE
--- NOTE | 2022-07-04 10:36 | PCPTNOTE ---
attempted evaluation, but patient with nursing confused to where he is saying he has to go to the kitchen, because he knows he is in the hospital, but it is layed out like his trailer and so he just need to go around the back wall in case someone needs to find him. Will attempt to see him when he is more alert.
[2022-07-04] MEDS: RANOLAZINE 500 MG TAB.ER.12H PO ×2 (10:44→20:13)
[2022-07-04] MEDS: SODIUM CHLORIDE 1 GM TABLET PO ×3 (10:44→17:55)
[2022-07-04] MEDS: PANTOPRAZOLE 40 MG TABLET PO (10:44)
[2022-07-04] MEDS: SIMVASTATIN 20 MG TABLET PO (10:45)
[2022-07-04] MEDS: SCOPOLAMINE 1.5 MG PATCH TRANSDERM (10:46)
[2022-07-04] MEDS: SILVERGEL (ELTA) 45 ML 1 APPLIC TOPICAL (10:46)
[2022-07-04] MEDS: ASPIRIN 81 MG CHEWABLE TABLET 162 MG PO (10:49)
--- NOTE | 2022-07-04 11:37 | PC.NURSE ---
Dr. Sanchez ordered to stop Normal Saline fluids. Confirmed order read back.
--- NOTE | 2022-07-04 19:18 | PC.NURSE ---
Contacted Dr. Lazaro regarding Patient increased work of breathing and wheezing. Stat chest xray ordered.
[2022-07-04] MEDS: ESCITALOPRAM OXALATE 10 MG TABLET 20 MG PO (20:13)
[2022-07-04] MEDS: ALBUTEROL SULFATE NEB 2.5 MG/3 ML INH 5 MG INHALATION (21:11)
[2022-07-05] VITALS (21 sets, daily range): BP systolic 112–144; BP diastolic 60–89; PULSE 71–84; RESP 18–24; TEMP 36.4–37.2; O2SAT 95–99
--- NOTE | 2022-07-05 | ECHO_ITS ---
Patient Info Name: Cecilio Bergeron Age: 71 years : 1950 Gender: Male Ht: 70 in Wt: 204 lbs BSA: 2.16 m2 HR: 77 bpm BP: 139 / 75 mmHg Exam Date: 07/05/2022 2:51 PM Exam Location: [facility] Patient Status: Inpatient Admit Date: 07/01/2022 Staff Ordering Physician: Torri Pinto MD Creative Writing Teacher: Khoa Vidal, FARZANEH, RT Attending Provider: Abby Sanchez MD Exam Type: CA echo dop color flow w con Study Info Indications - Bacteremia Complete two-dimensional, color flow and Doppler transthoracic echocardiogram is performed with contrast to opacify the left ventricle and to improve the deliniation of the left ventricle endocardial borders. Summary 1. Left ventricular chamber dimension is normal. 2. Left ventricular systolic function is normal, estimated at 50-55%. 3. There is mildly increased left ventricular wall thickness. 4. Right ventricular systolic function is normal. 5. There is trace aortic valve regurgitation. 6. There is trace mitral valve regurgitation. 7. There is trace tricuspid valve regurgitation. 8. The aortic root size at the sinus of Valsalva is dilated. 9. Reason for study was bacteremia. Cannot rule out valvular vegetations on this study. Consider ANA MARÍA if clinically appropriate. Left Ventricle Left ventricular chamber dimension is normal. Left ventricular systolic function is normal, estimated at 50-55%. There is mildly increased left ventricular wall thickness. Right Ventricle Right ventricular chamber dimension is normal. Right ventricular systolic function is normal. Left Atria Left atrial chamber dimension is normal. Right Atria Right atrial chamber dimension is normal. Atrial Septum Intact interatrial septum visualized by color flow imaging. Aortic Valve The aortic valve is not well visualized. There is no aortic valve stenosis. There is trace aortic valve regurgitation. Pulmonic Valve The pulmonic valve is not well visualized. Mitral Valve There is trace mitral valve regurgitation. Tricuspid Valve The tricuspid valve leaflets are not well visualized. There is trace tricuspid valve regurgitation. Pericardium/Pleural There is no pericardial effusion. Aorta The aortic root size at the sinus of Valsalva is dilated. Left Ventricular Outflow Tract Name Value Normal LVOT 2D LVOT Diameter 2.19 cm LVOT Doppler LVOT Peak Gradient 3 mmHg LVOT Mean Gradient 2 mmHg LVOT VTI 20.09 cm LVOT VTI/AV VTI Ratio 0.81 LVOT Stroke Volume 75.64 ml LVOT CO 5.74 l/min LVOT CI 2.66 L/min/m2 Mitral Valve Name Value Normal MV Doppler MV Decel [place] 400.48 cm/s2 MV PHT
[2022-07-05] MEDS: ALBUTEROL SULFATE NEB 2.5 MG/3 ML INH 5 MG INHALATION ×4 (02:30→21:54)
[2022-07-05] MEDS: IPRATROPIUM BR 0.02% INH SOLN 0.5 MG/2.5 ML VIAL INHALATION ×4 (02:30→21:51)
[2022-07-05] MEDS: PIPERACILLIN/TAZOBACTAM SOD 4.5 GM in SODIUM CHLORIDE 0.9% IV 100 ML 200 ML IVPB ×3 (02:40→15:37)
[2022-07-05] MEDS: methylPREDNISolone SOD SUCC 125 MG VIAL 60 MG IV PUSH ×3 (06:23→21:07)
[2022-07-05] MEDS: LEVOTHYROXINE SODIUM 150 MCG TABLET PO (06:24)
[2022-07-05] MEDS: HYDROcodone/acetaminophen (*CRX) 5-325 MG TABLET 1 TAB PO ×2 (07:19→20:41)
--- NOTE | 2022-07-05 07:59 | PM.PNORT ---
Progress Note: A&P Assessment and Plan (1) Closed fracture of right proximal humerus: Qualifiers: Encounter type: subsequent encounter Fracture morphology: other fracture Fracture alignment: displaced Code(s): S42.201A - Unspecified fracture of upper end of right humerus, initial encounter for closed fracture Status: Acute Assessment and Plan: 71-year-old male with displaced right proximal humerus fracture. It gets to the point where he could tolerate a surgical procedure may consider internal fixation. Following. Subjective Subjective Date/Time Seen: 07/05/22 07:59 Principal diagnosis: Dx: Interval history: 71-year-old male was admitted with rhabdomyolysis. He has got a displaced right proximal humerus fracture. Chart reviewed. Overall situation seems to be improving somewhat. Review of Systems Review of Systems: ROS unobtainable: Yes unobtainable due to medical condition (Is quite weak and has labored speaking) Exam Const: General: cooperative HENMT: Head: normal to inspection Ears: hearing grossly normal bilaterally Resp: Effort & Inspection: able to speak in complete sentences (Very short sentences) GI: Inspection: non-distended GI Palp: No abdominal tenderness Extrem: Other: Exam of right upper extremity shows extensive bruising which is starting to resolve a little bit. Still has large hematoma overlying the anterolateral aspect of the deltoid. Moderate amount of swelling in upper extremities, not as much in the lower extremities. Objective Data Vital Signs Vital Signs: Vital Signs - 24 hr 07/04/22 08:00 07/04/22 08:30 07/04/22 08:30 Temperature 98.5 F Pulse Rate 61 62 62 Respiratory Rate 16 18 18 Blood Pressure 176/78 H Pulse Oximetry 94 95 Oxygen Delivery Nasal Cannula Oxygen Flow Rate 2 Fraction of Inspired Oxygen 28 07/04/22 08:45 07/04/22 12:00 07/04/22 13:10 Temperature 97.7 F Pulse Rate 66 68 69 Respiratory Rate 18 20 18 Blood Pressure 153/78 H Pulse Oximetry 98 Oxygen Delivery Oxygen Flow Rate Fraction of Inspired Oxygen 07/04/22 13:23 07/04/22 16:00 07/04/22 08:00 Temperature 98.3 F Pulse Rate 68 67 Respiratory Rate 18 16 Blood Pressure 154/82 H Pulse Oximetry 97 97 Oxygen Delivery Nasal Cannula Oxygen Flow Rate 2 Fraction of Inspired Oxygen 07/04/22 12:00 07/04/22 16:00 07/04/22 08:00 Temperature Pulse Rate 66 Respiratory Rate Blood Pressure Pulse Oximetry 97 97 Oxygen Delivery Nasal Cannula Nasal Cannula Oxygen Flow Rate 2 2 Fraction of Inspired Oxygen 07/04/22 10:00 07/04/22 12:00 07/04/22 14:00 Temperature Pulse Rate 67 67 69 Respiratory Rate Blood Pressure Pulse Oximetry Oxygen Delivery Oxygen Flow Rate Fraction of Inspired Oxygen 07/04/22 16:00 07/04/22 18:00 07/04/22 20:00 Temperature 97.7 F Pulse Rate 68 71 71 Respiratory Rate 20 Blood Pressure 142/71 H Pulse Oximetry 97 Oxygen Delivery Oxygen Flow Rate Fraction of Inspired Oxygen 07/04/22 21:12 07/04/22 21:26 07/04/22 21:27 Temperature Pulse Rate 69 70 69 Respiratory Rate 20 18 Blood Pressure Pulse Oximetry 97 Oxygen Delivery Nasal Cannula Oxygen Flow Rate 2 Fraction of Inspired Oxygen 07/04/22 20:00 07/04/22 20:00 07/04/22 22:00 Temperature Pulse Rate 73 70 Respiratory Rate Blood Pressure Pulse Oximetry 97 Oxygen Delivery Nasal Cannula Oxygen Flow Rate 2 Fraction of Inspired Oxygen 07/04/22 23:07 07/05/22 02:30 07/05/22 02:40 Temperature 98.0 F Pulse Rate 72 74 73 Respiratory Rate 18 18 18 Blood Pressure 139/78 Pulse Oximetry 96 Oxygen Delivery Oxygen Flow Rate Fraction of Inspired Oxygen 07/05/22 00:00 07/05/22 00:00 07/05/22 02:00 Temperature Pulse Rate 72 75 Respiratory Rate Blood Pressure Pulse Oximetry 96 Oxygen Delivery Nasal Cannula Oxygen F
[2022-07-05] MEDS: CLINDAMYCIN 600 MG/D5W 50 ML 600 MG/50 ML PIGGYBACK 100 MG IVPB ×2 (09:34→15:37)
[2022-07-05] MEDS: ASPIRIN 81 MG CHEWABLE TABLET 162 MG PO (09:34)
[2022-07-05] MEDS: RANOLAZINE 500 MG TAB.ER.12H PO ×2 (09:34→20:41)
[2022-07-05] MEDS: SODIUM CHLORIDE 1 GM TABLET PO ×3 (09:34→17:06)
[2022-07-05] MEDS: PANTOPRAZOLE 40 MG TABLET PO (09:35)
[2022-07-05] MEDS: SIMVASTATIN 20 MG TABLET PO (09:35)
[2022-07-05] MEDS: SILVERGEL (ELTA) 45 ML 1 APPLIC TOPICAL (09:35)
[2022-07-05] MEDS: FLUTICASONE/UMECLIDIN/VILANTER 100-62.5-25 MCG ELLIPTA 1 PUFF INHALATION (09:48)
--- NOTE | 2022-07-05 10:16 | P.CONNP_ITS ---
Assessment and Plan Assessment and plan (1) Hyponatremia: Code(s): E87.1 - Hypo-osmolality and hyponatremia Status: Acute Assessment and Plan: * acute on chronic issue * baseline sodium seems to run around 129 - 134 at best * worsening noted during this hospitalization * multiple risk factors for hyponatremia: * pneumonia * lung disease (COPD) * SSRI use (lexapro) * PPI use (nexium) * pain (from recent fall/trauma/fractures) * previous aggressive IVFs (to treat rhabdo) * hypothyroidism (restarted treatment on this admission) * check SPEP. UPEP, serum/urine osmo, and urine electrolytes * hold off on checking cortisol - already on steroids * started on salt tablets already * follow trend of repeat sodium levels (2) Rhabdomyolysis: Code(s): M62.82 - Rhabdomyolysis Status: Acute Assessment and Plan: * CPK quite elevated on admission * s/p aggressive IVF resusciation * CPK better and renal function stable * follow CPK levels (3) Pneumonia: Code(s): J18.9 - Pneumonia, unspecified organism Status: Acute Assessment and Plan: * as noted by admission imaging * on antibiotics * follow culture data (4) COPD (chronic obstructive pulmonary disease): Qualifiers: COPD type: unspecified COPD Qualified Code(s): J44.9 - Chronic obstructive pulmonary disease, unspecified Code(s): J44.9 - Chronic obstructive pulmonary disease, unspecified Status: Acute Assessment and Plan: * exacerbated by #3 * on nebulizer treatments, steroids, supplemental oxygen * continues supportive therapy (5) Closed fracture of right proximal humerus: Qualifiers: Encounter type: subsequent encounter Fracture alignment: displaced Fracture morphology: other fracture Code(s): S42.201A - Unspecified fracture of upper end of right humerus, initial encounter for closed fracture Status: Acute Assessment and Plan: * displaced right proximal humerus fracture as noted by imaging * Orthopedics following * possible surgical intervention once medically optimized Will continue to follow. History of Present Illness Reason for Consult Consult date: 07/05/22 Reason for consult: hyponatremia Chief Complaint Chief complaint: Rhabdomyolysis,Pneumonia,Anemia,Shoulder Fracture History of Present Illness Narrative: The patient is a 71-year-old male with a past medical history as outli stan below who presented to [facility] Emergency Room after sustaining a fall. The patient apparently has a history of multiple falls and was recently saw at [facility] Emergency Room approximately 2 weeks ago after he sustained a fall where he landed on his right shoulder. At that time, he was arranged for outpatient follow-up with orthopedic surgeon as x-rays at that time demonstrated a mildly displaced proximal right arm fracture. His head CT at that time was negative and a sling was applied and he was discharged from the emergency room. He returned again to the emergency room a few days ago after suffering another fall. Apparently, on the day of admission, the patient's brother went to check on the patient and found him on the ground. He reported that he was on the ground for about 9 hours after he sustained a fall prior to that. It was felt that medications may have played a role with this fall as he was taking Xanax as well as Vicodin for pain control. He was subsequently brought to the ER for further assessment Workup and evaluation in the emergency
--- NOTE | 2022-07-05 10:16 | PM.CNNEP ---
Assessment and Plan Assessment and plan (1) Hyponatremia: Code(s): E87.1 - Hypo-osmolality and hyponatremia Status: Acute Assessment and Plan: acute on chronic issue baseline sodium seems to run around 129 - 134 at best worsening noted during this hospitalization multiple risk factors for hyponatremia: pneumonia lung disease (COPD) SSRI use (lexapro) PPI use (nexium) pain (from recent fall/trauma/fractures) previous aggressive IVFs (to treat rhabdo) hypothyroidism (restarted treatment on this admission) check SPEP. UPEP, serum/urine osmo, and urine electrolytes hold off on checking cortisol - already on steroids started on salt tablets already follow trend of repeat sodium levels (2) Rhabdomyolysis: Code(s): M62.82 - Rhabdomyolysis Status: Acute Assessment and Plan: CPK quite elevated on admission s/p aggressive IVF resusciation CPK better and renal function stable follow CPK levels (3) Pneumonia: Code(s): J18.9 - Pneumonia, unspecified organism Status: Acute Assessment and Plan: as noted by admission imaging on antibiotics follow culture data (4) COPD (chronic obstructive pulmonary disease): Qualifiers: COPD type: unspecified COPD Qualified Code(s): J44.9 - Chronic obstructive pulmonary disease, unspecified Code(s): J44.9 - Chronic obstructive pulmonary disease, unspecified Status: Acute Assessment and Plan: exacerbated by #3 on nebulizer treatments, steroids, supplemental oxygen continues supportive therapy (5) Closed fracture of right proximal humerus: Qualifiers: Encounter type: subsequent encounter Fracture alignment: displaced Fracture morphology: other fracture Code(s): S42.201A - Unspecified fracture of upper end of right humerus, initial encounter for closed fracture Status: Acute Assessment and Plan: displaced right proximal humerus fracture as noted by imaging Orthopedics following possible surgical intervention once medically optimized Will continue to follow. History of Present Illness Reason for Consult Consult date: 07/05/22 Reason for consult: hyponatremia Chief Complaint Chief complaint: Rhabdomyolysis,Pneumonia,Anemia,Shoulder Fracture History of Present Illness Narrative: The patient is a 71-year-old male with a past medical history as outlined below who presented to [facility] after sustaining a fall. The patient apparently has a history of multiple falls and was recently saw at [facility] approximately 2 weeks ago after he sustained a fall where he landed on his right shoulder. At that time, he was arranged for outpatient follow-up with orthopedic surgeon as x-rays at that time demonstrated a mildly displaced proximal right arm fracture. His head CT at that time was negative and a sling was applied and he was discharged from the emergency room. He returned again to the emergency room a few days ago after suffering another fall. Apparently, on the day of admission, the patient's brother went to check on the patient and found him on the ground. He reported that he was on the ground for about 9 hours after he sustained a fall prior to that. It was felt that medications may have played a role with this fall as he was taking Xanax as well as Vicodin for pain control. He was subsequently brought to the ER for further assessment Workup and evaluation in the emergency room demonstrated significant and extensive bruising to his flank area right hip, right arm, and left arm. Routine blood tests were significant for chronic hyponatremia, low hemoglobin and hematocrit, and a significantly elevated CPK level. CT scan of the chest abdomen pelvis were done given the extensive bruising which demonstrated pneumonia, commuted and displaced fracture of the proximal right humerus. His chest x-ray
--- NOTE | 2022-07-05 10:17 | PCNFU ---
Nutrition Follow-Up Complete: Mild malnutrition related to acute illness as evidenced by poor intake, reduced functional status Goal:Improved PO intake to at least 50% meals and supplements - Progressing toward goal Pt current nutrition is Regular diet. Intakes 75-95% with 1 instance of 0. Drinks Ensure Clear, will add order Nutrition recommendation: Ensure Clear BID for additional 240 kcals and 8 g protein each. Last recorded weight is 92.8 kg. Bowel Motility: No BMs recorded Labs Reviewed: Hgb 9.5, Hct 28, Na 126, Cre 0.5 Meds Noted: Solumedrol, protonix Skin: Skin tears to arms Additional Notes: Intakes have improved. Agree with current diet order. Monitor intakes, weights, labs, supplement tolerance, plan of care Follow up in 5 days
[2022-07-05 11:52] LABS: Creatine Kinase 1389 U/L (55-170)
--- NOTE | 2022-07-05 13:30 | PCPTNOTE ---
Attempted PT evaluation. The patient's RN was a lunch at time of attempted eval. The RN covering for pt's RN during lunch recommending coming back at later time due to concerns of R UE. Will follow
[2022-07-05] MEDS: PERFLUTREN LIPID MICROSPHERES 1.5 ML VIAL DILUTED TO 10 ML TOTAL VOLUME IV PUSH (14:59)
--- NOTE | 2022-07-05 14:59 | IVDEFINITY ---
Prior to administration of IV Definity the patient was educated on the risks and benefits of the imaging enhancing agent including potential adverse side effects. The patient verbalized understanding. Allergies were verified. No exclusion criteria were identified and at least one of the following inclusion criteria were met: 1) physician request, 2) patient technically difficult to image (per the [place] [employer] guidelines of two or more segments not discernable within the apical view), or 3) questionable left ventricular function. ?
--- NOTE | 2022-07-05 15:47 | PM.IMPN ---
Progress Note: A&P Assessment and Plan (1) Acute respiratory failure with hypoxemia: Code(s): J96.01 - Acute respiratory failure with hypoxia Status: Acute (2) Closed fracture of right proximal humerus: Qualifiers: Encounter type: subsequent encounter Fracture morphology: other fracture Fracture alignment: displaced Code(s): S42.201A - Unspecified fracture of upper end of right humerus, initial encounter for closed fracture Status: Acute (3) Rhabdomyolysis: Code(s): M62.82 - Rhabdomyolysis Status: Acute (4) Pneumonia: Code(s): J18.9 - Pneumonia, unspecified organism Status: Acute Plan ?71-year-old male patient who has a history of having multiple falls.? The patient was seen in the emergency room on 06/23/2022 when he fell in the parking lot at [employer] landed on his right shoulder.Patient presented again on 07/01/22 after being found down, found to have rhabdomyolysis. 1)Rhabdomyolysis: CPK still elevated Renal Function WNL C/w IV fluids 2)Hyponatremia: Renal Consult 3)MSSA Bacteremia: Switch to Unsayn Monitor Blood culture 4)?Aspiration PNA: On RA C/w Unasyn /w bronchodilators c/w solumderol 5)Right Humerus Fracture: Appreciate Ortho help Likely Surgical intervention once stable 6)DVT ppx:Hep SQ 7)Anemia:S/p 2 units of PRBC while in hospital 8)Code:Full 9)Dispo:pending improvement Time Spent With Patient Time with patient: 25 - 35 minutes Subjective Date/time seen: 07/05/22 15:47 Interval history: no acute events overnight Review of Systems Review of Systems: All systems reviewed & are unremarkable except as noted in HPI and below Exam Narrative: ?GENERAL:? ill-appearing - EYES: EOMI. Anicteric. - HENT: Moist mucous membranes. - LUNGS: Clear to auscultation bilaterally, no wheezing, rhonchi, or rales. - CARDIOVASCULAR: Regular rate and rhythm. No murmur. No JVD. - ABDOMEN: Soft, non-tender and non-distended. No palpable masses. - EXTREMITIES: No edema. Peripheral pulses 2+. tender over right? upper arm - NEUROLOGIC: No focal neurological deficits. - PSYCHIATRIC: Awake, Alert - SKIN: ? bruises ecchymosis of right chest, upper right arm and broken skin of right arm.? Ecchymosis is subsiding - LYMPH: No cervical lymphadenopathy. Objective Data Vital Signs Vital Signs: Vital Signs - 24 hr 07/04/22 16:00 07/04/22 16:00 07/04/22 16:00 Temperature 98.3 F Pulse Rate 67 68 Respiratory Rate 16 Blood Pressure 154/82 H Pulse Oximetry 97 97 Oxygen Delivery Nasal Cannula Oxygen Flow Rate 2 07/04/22 18:00 07/04/22 20:00 07/04/22 21:12 Temperature 97.7 F Pulse Rate 71 71 69 Respiratory Rate 20 20 Blood Pressure 142/71 H Pulse Oximetry 97 Oxygen Delivery Oxygen Flow Rate 07/04/22 21:26 07/04/22 21:27 07/04/22 20:00 Temperature Pulse Rate 70 69 73 Respiratory Rate 18 Blood Pressure Pulse Oximetry 97 Oxygen Delivery Nasal Cannula Oxygen Flow Rate 2 07/04/22 20:00 07/04/22 22:00 07/04/22 23:07 Temperature 98.0 F Pulse Rate 70 72 Respiratory Rate 18 Blood Pressure 139/78 Pulse Oximetry 97 96 Oxygen Delivery Nasal Cannula Oxygen Flow Rate 2 07/05/22 02:30 07/05/22 02:40 07/05/22 00:00 Temperature Pulse Rate 74 73 72 Respiratory Rate 18 18 Blood Pressure Pulse Oximetry Oxygen Delivery Oxygen Flow Rate 07/05/22 00:00 07/05/22 02:00 07/05/22 04:00 Temperature Pulse Rate 75 71 Respiratory Rate Blood Pressure Pulse Oximetry 96 Oxygen Delivery Nasal Cannula Oxygen Flow Rate 2 07/05/22 04:00 07/05/22 04:00 07/05/22 06:00 Temperature 98 F Pulse Rate 78 76 Respiratory Rate 20 Blood Pressure 139/75 Pulse Oximetry 99 96 Oxygen Delivery Nasal Cannula Oxygen Flow Rate 2 07/05/22 08:00 07/05/22 09:45 07/05/22 08:00 Temperature 98.4 F Pulse Rate 80 74 77 Respiratory Rate 22 H 18 Blood
[2022-07-05] MEDS: SODIUM CHLORIDE 0.9% IV 1,000 ML 100 ML IV CONT (17:05)
[2022-07-05 18:04] LABS: Sodium 130 mmol/L (137-145)
[2022-07-05] MEDS: HEPARIN SODIUM 5,000 UNITS/ML VIAL 5000 UNITS SUB-Q (20:40)
[2022-07-05] MEDS: ESCITALOPRAM OXALATE 10 MG TABLET 20 MG PO (20:41)
[2022-07-05] MEDS: ALPRAZolam (*CRX) 0.5 MG TABLET 1 MG PO (20:45)
[2022-07-05 21:23] LABS: Creatinine Urine 64.3 mg/dL; Total Protein Urine Random 18 mg/dL; Ur Ttl Prot Creatinine Ratio 0.28 mg/mg (0-0.20); Urea Random Urine 1060 MG/DL
[2022-07-05 21:27] LABS: Sodium Urine Random 74 meq/L
[2022-07-05 22:11] LABS: Eosinophil Urine None Seen % (None Seen); Urine Eos QC 2nd Tech Confirmed
[2022-07-06] VITALS (30 sets, daily range): BP systolic 109–152; BP diastolic 58–88; PULSE 68–86; RESP 16–24; TEMP 36.2–37; O2SAT 93–99
[2022-07-06] MEDS: AMPICILLIN SULB 3 GM/NS 100 ML 3 GM/100 ML VIAL IVPB ×7 (01:07→23:53)
[2022-07-06] MEDS: SODIUM CHLORIDE 0.9% IV 1,000 ML 100 ML IV CONT ×2 (03:44→16:25)
[2022-07-06 05:05] LABS: Anion Gap 1 mmol/L (8-16); Blood Urea Nitrogen 18 mg/dL (9-20); Calcium 7.4 mg/dL (8.4-10.2); Carbon Dioxide 31 mmol/L (22-30); Chloride 98 mmol/L (98-107); Estimated CRCL calculation 102 ml/min; Estimated Glomerular Filt Rate > 60; Glucose 101 mg/dL (65-110); Potassium 3.6 mmol/L (3.4-5.0); Sodium 130 mmol/L (137-145)
[2022-07-06] MEDS: LEVOTHYROXINE SODIUM 150 MCG TABLET PO (05:13)
[2022-07-06] MEDS: methylPREDNISolone SOD SUCC 125 MG VIAL 60 MG IV PUSH ×3 (05:13→20:54)
[2022-07-06 05:25] LABS: Creatine Kinase 2239 U/L (55-170)
[2022-07-06 06:23] LABS: Mean Corpuscular HGB Conc 33.1 g/dl (32-36); Mean Corpuscular Hemoglobin 29.9 pg (26-34); Mean Corpuscular Volume 90.2 fl (80-100); Mean Platelet Volume 9.7 fl (7.4-10.4); Platelet Count Result 124 k/mm3 (150-375); Red Blood Count 1.84 M/mm3 (4.6-6.20); Red Cell Distribution Width 17.1 % (11.5-14.5); White Blood Count 11.1 K/mm3 (4.5-10.0)
[2022-07-06 06:43] LABS: Hematocrit 16.6 % (42.0-52.0)
[2022-07-06 06:49] LABS: Hemoglobin 5.5 g/dL (14.0-18.0); Hypochromasia 2+ (NORMAL)
[2022-07-06 06:50] LABS: Anisocytosis 2+ (NORMAL); Poikilocytosis 1+ (NORMAL)
[2022-07-06 06:51] LABS: Schistocytes 1+ (NORMAL); Target Cells 1+ (NORMAL)
[2022-07-06 06:52] LABS: Band Neutrophils Percent 5 % (0-6); Lymphocytes Absolute Manual 0.44 K/mm3 (1.1-4.5); Lymphocytes Percent Manual 4 % (18-44); Metamyelocytes Percent 1 %; Monocytes Absolute Manual 0.33 K/mm3 (0.1-0.90); Monocytes Percent Manual 3 % (3-9); Neutrophils Absolute Manual 10.21 K/mm3 (1.3-6.7); Neutrophils Percent Manual 87 % (46-73); Nucleated Red Blood Cells 2 %; Smudge Cells PRESENT; Total Cells Counted 100
[2022-07-06] MEDS: IPRATROPIUM BR 0.02% INH SOLN 0.5 MG/2.5 ML VIAL INHALATION ×3 (07:11→21:11)
[2022-07-06] MEDS: ALBUTEROL SULFATE NEB 2.5 MG/3 ML INH 5 MG INHALATION ×3 (07:11→21:10)
[2022-07-06] MEDS: FLUTICASONE/UMECLIDIN/VILANTER 100-62.5-25 MCG ELLIPTA 1 PUFF INHALATION (07:11)
--- NOTE | 2022-07-06 08:19 | PCPTNOTE ---
Attempted PT evaluation, pt hemoglobin 5.5 this AM. Per RN, pt to get blood today. Will see pt when medically stable. Will follow.
[2022-07-06] MEDS: PANTOPRAZOLE 40 MG TABLET PO (08:35)
[2022-07-06] MEDS: RANOLAZINE 500 MG TAB.ER.12H PO ×2 (08:35→20:53)
[2022-07-06] MEDS: ASPIRIN 81 MG CHEWABLE TABLET 162 MG PO (08:35)
[2022-07-06] MEDS: SIMVASTATIN 20 MG TABLET PO (08:35)
[2022-07-06] MEDS: SODIUM CHLORIDE 1 GM TABLET PO ×3 (08:35→16:44)
[2022-07-06] MEDS: SILVERGEL (ELTA) 45 ML 1 APPLIC TOPICAL (08:36)
--- NOTE | 2022-07-06 09:02 | P.PNNP_ITS ---
Progress Note: A&P Assessment and Plan (1) Hyponatremia: Code(s): E87.1 - Hypo-osmolality and hyponatremia Status: Acute Assessment and Plan: * better/improving at this time * acute on chronic issue * baseline sodium seems to run around 129 - 134 at best * worsening noted during this hospitalization * multiple risk factors for hyponatremia: * pneumonia * lung disease (COPD) * SSRI use (lexapro) * PPI use (nexium) * pain (from recent fall/trauma/fractures) * hypothyroidism (restarted treatment on this admission) * cSPEP. UPEP, serum/urine osmo pending * urine electrolytes not prerenal * hold off on checking cortisol - already on steroids * on salt tablets already * follow trend of repeat sodium levels (2) Rhabdomyolysis: Code(s): M62.82 - Rhabdomyolysis Status: Acute Assessment and Plan: * CPK quite elevated on admission * continue IVF hydration * CPK better (but not normal) and renal function stable * follow/trend CPK levels (3) Anemia: Code(s): D64.9 - Anemia, unspecified Status: Acute Assessment and Plan: * significant drop in H/H this AM * PRBC transfusion ordered * GI loss versus due to trauma? * follow trend of H/H (4) Pneumonia: Code(s): J18.9 - Pneumonia, unspecified organism Status: Acute Assessment and Plan: * as noted by admission imaging * on antibiotics * follow culture data (5) COPD (chronic obstructive pulmonary disease): Qualifiers: COPD type: unspecified COPD Qualified Code(s): J44.9 - Chronic obstructive pulmonary disease, unspecified Code(s): J44.9 - Chronic obstructive pulmonary disease, unspecified Status: Acute Assessment and Plan: * exacerbated by #3 * on nebulizer treatments, steroids, supplemental oxygen * continues supportive therapy (6) Closed fracture of right proximal humerus: Qualifiers: Encounter type: subsequent encounter Fracture alignment: displaced Fracture morphology: other fracture Code(s): S42.201A - Unspecified fracture of upper end of right humerus, initial encounter for closed fracture Status: Acute Assessment and Plan: * displaced right proximal humerus fracture as noted by imaging * Orthopedics following * possible surgical intervention once medically optimized Will continue to follow. Subjective Date/time seen: 07/06/22 09:02 Restarted on IVFs due to creatinine kinase still being elevated; repeat sodium yesterday afternoon and this AM better at this time; significant drop in H/H by AM labs and PRBC transfusion ordered; still states that he just does not feel well. Exam Narrative: General: ill appearing male in NAD Heart: normal S1 and S2; no rub Lungs: clear to auscultation Abdomen: soft, nontender, nondistended, positive bowel sounds Extremities: no cyanosis or clubbing; no edema; right sling in place Skin: resolving ecchymoses on right chest and right upper arm Objective Data Vital Signs Vital Signs: Vital Signs Temp Pulse Resp BP Pulse Ox O2 Del Method O2 Flow Rate 07/06/22 09:00 97.6 F 68 22 H 135/75 97 07/06/22 08:00 98.6 F 73 16 117/71 07/06/22 07:32 68 18 07/06/22 07:11 70 16 07/06/22 05:58 82 07/06/22 04:00 97.6 F 80 20 109/59 L 97
--- NOTE | 2022-07-06 09:02 | PM.PNNEP ---
Progress Note: A&P Assessment and Plan (1) Hyponatremia: Code(s): E87.1 - Hypo-osmolality and hyponatremia Status: Acute Assessment and Plan: better/improving at this time acute on chronic issue baseline sodium seems to run around 129 - 134 at best worsening noted during this hospitalization multiple risk factors for hyponatremia: pneumonia lung disease (COPD) SSRI use (lexapro) PPI use (nexium) pain (from recent fall/trauma/fractures) hypothyroidism (restarted treatment on this admission) cSPEP. UPEP, serum/urine osmo pending urine electrolytes not prerenal hold off on checking cortisol - already on steroids on salt tablets already follow trend of repeat sodium levels (2) Rhabdomyolysis: Code(s): M62.82 - Rhabdomyolysis Status: Acute Assessment and Plan: CPK quite elevated on admission continue IVF hydration CPK better (but not normal) and renal function stable follow/trend CPK levels (3) Anemia: Code(s): D64.9 - Anemia, unspecified Status: Acute Assessment and Plan: significant drop in H/H this AM PRBC transfusion ordered GI loss versus due to trauma? follow trend of H/H (4) Pneumonia: Code(s): J18.9 - Pneumonia, unspecified organism Status: Acute Assessment and Plan: as noted by admission imaging on antibiotics follow culture data (5) COPD (chronic obstructive pulmonary disease): Qualifiers: COPD type: unspecified COPD Qualified Code(s): J44.9 - Chronic obstructive pulmonary disease, unspecified Code(s): J44.9 - Chronic obstructive pulmonary disease, unspecified Status: Acute Assessment and Plan: exacerbated by #3 on nebulizer treatments, steroids, supplemental oxygen continues supportive therapy (6) Closed fracture of right proximal humerus: Qualifiers: Encounter type: subsequent encounter Fracture alignment: displaced Fracture morphology: other fracture Code(s): S42.201A - Unspecified fracture of upper end of right humerus, initial encounter for closed fracture Status: Acute Assessment and Plan: displaced right proximal humerus fracture as noted by imaging Orthopedics following possible surgical intervention once medically optimized Will continue to follow. Subjective Date/time seen: 07/06/22 09:02 Restarted on IVFs due to creatinine kinase still being elevated; repeat sodium yesterday afternoon and this AM better at this time; significant drop in H/H by AM labs and PRBC transfusion ordered; still states that he just does not feel well. Exam Narrative: General: ill appearing male in NAD Heart: normal S1 and S2; no rub Lungs: clear to auscultation Abdomen: soft, nontender, nondistended, positive bowel sounds Extremities: no cyanosis or clubbing; no edema; right sling in place Skin: resolving ecchymoses on right chest and right upper arm Objective Data Vital Signs Vital Signs: Vital Signs Temp Pulse Resp BP Pulse Ox O2 Del Method O2 Flow Rate 07/06/22 09:00 97.6 F 68 22 H 135/75 97 07/06/22 08:00 98.6 F 73 16 117/71 07/06/22 07:32 68 18 07/06/22 07:11 70 16 07/06/22 05:58 82 07/06/22 04:00 97.6 F 80 20 109/59 L 97 07/06/22 04:00 78 20 96 Room Air 07/06/22 04:00 78 07/06/22 01:54 86 07/06/22 00:00 84 20 96 Room Air 07/06/22 00:00 84 07/05/22 23:01 97.6 F 72 20 120/60 96 07/05/22 22:00 76 07/05/22 22:01 75 20 07/05/22 21:56 96 Nasal Cannula 2 07/05/22 21:54 73 20 07/05/22 20:00 77 20 95 Room Air 07/05/22 20:00 77 07/05/22 20:00 97.9 F 84 20 144/87 H 95 07/05/22 18:00 75 07/05/22 16:00 76 07/05/22 16:00 Room Air 07/05/22 16:00 97.5 F L 74 24 H 123/70 95 07/05/22 15:20 75 18 07/05/22 15:15
[2022-07-06] MEDS: SODIUM CHLORIDE 0.9% IV 250 ML 30 ML IV CONT (11:08)
[2022-07-06] MEDS: TUBING, BLOOD PLUM PUMP TUBING 1 EACH XX ×2 (11:08→15:19)
--- NOTE | 2022-07-06 11:50 | PCOTNOTE ---
Attempted OT treatment, treatment not completed due to RN reporting patient received blood but needs hemiglobin to be rechecked prior to getting out of bed at this time, will follow.
[2022-07-06 13:13] LABS: IFOB Positive Control Positive; Immunochemical Fecal Occult Bl Negative (N)
--- NOTE | 2022-07-06 14:27 | PM.IMPN ---
Progress Note: A&P Assessment and Plan (1) Acute respiratory failure with hypoxemia: Code(s): J96.01 - Acute respiratory failure with hypoxia Status: Acute (2) Closed fracture of right proximal humerus: Qualifiers: Encounter type: subsequent encounter Fracture morphology: other fracture Fracture alignment: displaced Code(s): S42.201A - Unspecified fracture of upper end of right humerus, initial encounter for closed fracture Status: Acute (3) Rhabdomyolysis: Code(s): M62.82 - Rhabdomyolysis Status: Acute (4) Pneumonia: Code(s): J18.9 - Pneumonia, unspecified organism Status: Acute Plan ?71-year-old male patient who has a history of having multiple falls.? The patient was seen in the emergency room on 06/23/2022 when he fell in the parking lot at [email or web address] landed on his right shoulder.Patient presented again on 07/01/22 after being found down, found to have rhabdomyolysis. 1)Rhabdomyolysis: CPK still elevated Renal Function WNL C/w IV fluids 2)Hyponatremia: Renal Consult appreciated 3)MSSA Bacteremia: c/w ampicillin Monitor Blood culture 4)?Aspiration PNA: On RA C/w ampicilin /w bronchodilators c/w solumderol Yeast isolated in sputum, ?colonization 5)Right Humerus Fracture: Appreciate Ortho help Likely Surgical intervention once stable 6)Acute Anemia: ?Etiology Obtain CT abdomen/pelvis Transfuse 2 units of PRBC Obtain fecal occult blood Hold ASA, hep SQ Has recieved 2 units before 7)Acute Encephalopathy: Obtain Neuro consult 8)DVT ppx:SCD 9)Code:Full 10)Dispo:pending improvement, critically sick Time Spent With Patient Time with patient: 25 - 35 minutes Subjective Date/time seen: 07/06/22 14:27 Interval history: Drop in H/H noted Remains very confused Review of Systems Review of Systems: ROS unobtainable: Yes unobtainable due to medical condition and unobtainable due to mental status Exam Narrative: ?GENERAL:? ill-appearing - EYES: EOMI. Anicteric. - HENT: Moist mucous membranes. - LUNGS: Clear to auscultation bilaterally, no wheezing, rhonchi, or rales. - CARDIOVASCULAR: Regular rate and rhythm. No murmur. No JVD. - ABDOMEN: Soft, non-tender and non-distended. No palpable masses. - EXTREMITIES: No edema. Peripheral pulses 2+. tender over right? upper arm - NEUROLOGIC: No focal neurological deficits. - PSYCHIATRIC: Awake, Alert - SKIN: ? bruises ecchymosis of right chest, upper right arm and broken skin of right arm.? Ecchymosis is subsiding - LYMPH: No cervical lymphadenopathy. Objective Data Vital Signs Vital Signs: Vital Signs - 24 hr 07/05/22 15:15 07/05/22 15:20 07/05/22 16:00 Temperature 97.5 F L Pulse Rate 76 75 74 Respiratory Rate 18 18 24 H Blood Pressure 123/70 Pulse Oximetry 95 Oxygen Delivery Oxygen Flow Rate Fraction of Inspired Oxygen 07/05/22 16:00 07/05/22 16:00 07/05/22 18:00 Temperature Pulse Rate 76 75 Respiratory Rate Blood Pressure Pulse Oximetry Oxygen Delivery Room Air Oxygen Flow Rate Fraction of Inspired Oxygen 07/05/22 20:00 07/05/22 20:00 07/05/22 20:00 Temperature 97.9 F Pulse Rate 84 77 77 Respiratory Rate 20 20 Blood Pressure 144/87 H Pulse Oximetry 95 95 Oxygen Delivery Room Air Oxygen Flow Rate Fraction of Inspired Oxygen 07/05/22 21:54 07/05/22 21:56 07/05/22 22:01 Temperature Pulse Rate 73 75 Respiratory Rate 20 20 Blood Pressure Pulse Oximetry 96 Oxygen Delivery Nasal Cannula Oxygen Flow Rate 2 Fraction of Inspired Oxygen 07/05/22 22:00 07/05/22 23:01 07/06/22 00:00 Temperature 97.6 F Pulse Rate 76 72 84 Respiratory Rate 20 Blood Pressure 120/60 Pulse Oximetry 96 Oxygen Delivery Oxygen Flow Rate Fraction of Inspired Oxygen 07/06/22 00:00 07/06/22 01:54 07/06/22 04:00 Temperature Pulse Rate 84 86 78 Respiratory Rate 20 Blood Pressure Pu
[2022-07-06] MEDS: SODIUM CHLORIDE 0.9% IV 250 ML 30 ML (15:19)
[2022-07-06] MEDS: ESCITALOPRAM OXALATE 10 MG TABLET 20 MG PO (20:53)
[2022-07-06] MEDS: HYDROcodone/acetaminophen (*CRX) 5-325 MG TABLET 1 TAB PO (20:53)
[2022-07-06] MEDS: PANTOPRAZOLE SODIUM IV 40 MG VIAL IV PUSH (22:37)
[2022-07-07] VITALS (32 sets, daily range): BP systolic 98–154; BP diastolic 50–67; PULSE 67–107; RESP 16–107; TEMP 36.3–36.7; O2SAT 93–100
[2022-07-07] MEDS: IPRATROPIUM BR 0.02% INH SOLN 0.5 MG/2.5 ML VIAL INHALATION ×4 (02:45→21:13)
[2022-07-07] MEDS: ALBUTEROL SULFATE NEB 2.5 MG/3 ML INH 5 MG INHALATION ×4 (02:48→21:13)
[2022-07-07 03:18] LABS: pH ABG 7.108 (7.350-7.450)
[2022-07-07 03:19] LABS: Base Excess ABG -1.3 mEq/l (+/-2.0); HCO3 ABG 29.6 mEq/l (22.0-26.0); Oxygen Content ABG 13.6 %vol (16.0-22.0); Oxygen Saturation ABG 99.1 % (95.0-100.0); PCO2 ABG 95.6 mmHg (35.0-45.0); PO2 ABG 222.7 mmHg (80.0-100.0); Total Hemoglobin 9.6 g/dL (12.0-18.0)
[2022-07-07 03:20] LABS: Alveolar/Arterial O2 Gradient 394.7 mmHg; Device NON-REBREATHER MASK; Fractional Inspired Oxygen 100 %; Modified Allen's Test Unable to perform; Oxyhemoglobin 96.9 % THb (90.0-100.0); PO2 FiO2 Ratio Arterial Blood 2.23 %; Site Drawn RIGHT RADIAL
--- NOTE | 2022-07-07 03:28 | ECG_ITS ---
Measurements Intervals [place] Rate: 97 P: CO: 0 QRS: 18 QRSD: 114 T: 0 QT: 337 QTc: 428 Interpretive Statements SINUS RHYTHM ATRIAL AND VENTRICULAR PREMATURE COMPLEXES INTRAVENTRICULAR CONDUCTION DELAY NONSPECIFIC ST & T-WAVE ABNORMALITY ABNORMAL RHYTHM ECG- DIFFUSE LEADS BASELINE ARTIFACT- I, II, III, AVR, AVL, AVF, V1, V4-V6 ABNORMAL ECG COMPARED TO ECG 07/01/2022 14:17:47 ATRIAL AND VENTRICULAR PREMATURE COMPLEXES NOW PRESENT Electronically Signed On 07-08-2022 13:29:38 [employer] by Shady Reyes D.O.
[2022-07-07] MEDS: FUROSEMIDE INJ 40 MG/4 ML VIAL 60 MG IV PUSH (03:30)
[2022-07-07] MEDS: methylPREDNISolone SOD SUCC 125 MG VIAL 80 MG IV PUSH (03:30)
--- NOTE | 2022-07-07 03:42 | PM.IMPN ---
Progress Note: A&P Assessment and Plan (1) Acute respiratory failure with hypoxemia: Code(s): J96.01 - Acute respiratory failure with hypoxia Status: Acute Assessment and Plan: Acute hypoxemic hypercapnic respiratory failure multifactorial most likely related to pulmonary edema secondary to fluid overload cannot rule out underlying pneumonia IV antibiotics IV Lasix Hold IV fluid Check CBC CMP troponin EKG echo Repeat ABG after 1 hour Start BiPAP Continue tele monitor Subjective Date/time seen: 07/07/22 03:42 Interval history: Rapid response was called patient was short of breath requiring OxyMask patient had episode of hypoxia and 50s as patient removed his oxygen was short of breath patient has anasarca patient at baseline mental status according to the nurse stat chest x-ray was ordered concern for pulmonary edema concern for pneumonia ABG was ordered showed respiratory acidosis secondary to CO2 retention was given IV Lasix IV antibiotics BiPAP was started will repeat ABG in 1 hour Review of Systems Review of Systems: Lying in bed test neck has anasarca Chest bilateral wheezing crackles Abdomen nontender nondistended CVS S1 + S2 Plus three lower extremity edema Objective Data Vital Signs Vital Signs: Vital Signs - 24 hr 07/06/22 04:00 07/06/22 04:00 07/06/22 04:00 Temperature 97.6 F Pulse Rate 78 78 80 Respiratory Rate 20 20 Blood Pressure 109/59 L Pulse Oximetry 96 97 Oxygen Delivery Room Air Oxygen Flow Rate Fraction of Inspired Oxygen 07/06/22 05:58 07/06/22 07:11 07/06/22 07:32 Temperature Pulse Rate 82 70 68 Respiratory Rate 16 18 Blood Pressure Pulse Oximetry Oxygen Delivery Oxygen Flow Rate Fraction of Inspired Oxygen 07/06/22 08:00 07/06/22 09:57 07/06/22 08:00 Temperature 98.6 F 97.6 F Pulse Rate 73 68 Respiratory Rate 16 22 H Blood Pressure 117/71 135/75 Pulse Oximetry 97 Oxygen Delivery Room Air Oxygen Flow Rate Fraction of Inspired Oxygen 07/06/22 10:10 07/06/22 08:00 07/06/22 10:00 Temperature 97.7 F Pulse Rate 70 69 74 Respiratory Rate 22 H Blood Pressure 114/88 Pulse Oximetry 93 Oxygen Delivery Oxygen Flow Rate Fraction of Inspired Oxygen 07/06/22 11:10 07/06/22 12:02 07/06/22 12:10 Temperature 97.6 F 97.7 F 97.7 F Pulse Rate 69 71 71 Respiratory Rate 20 22 H 22 H Blood Pressure 124/87 144/72 H 144/72 H Pulse Oximetry 95 96 99 Oxygen Delivery Oxygen Flow Rate Fraction of Inspired Oxygen 07/06/22 12:29 07/06/22 12:00 07/06/22 12:47 Temperature 97.7 F 98.1 F Pulse Rate 69 70 Respiratory Rate 22 H 20 Blood Pressure 137/76 131/88 Pulse Oximetry 98 96 Oxygen Delivery Room Air Oxygen Flow Rate Fraction of Inspired Oxygen 07/06/22 12:00 07/06/22 13:47 07/06/22 14:05 Temperature 97.4 F L Pulse Rate 70 68 69 Respiratory Rate 20 18 Blood Pressure 144/70 H Pulse Oximetry 96 Oxygen Delivery Oxygen Flow Rate Fraction of Inspired Oxygen 07/06/22 14:25 07/06/22 14:00 07/06/22 14:47 Temperature 97.1 F L Pulse Rate 76 75 77 Respiratory Rate 18 22 H Blood Pressure 149/83 H Pulse Oximetry 95 Oxygen Delivery Oxygen Flow Rate Fraction of Inspired Oxygen 07/06/22 15:59 07/06/22 16:00 07/06/22 16:00 Temperature 97.1 F L Pulse Rate 72 72 Respiratory Rate 22 H Blood Pressure 136/82 Pulse Oximetry 96 Oxygen Delivery Room Air Oxygen Flow Rate Fraction of Inspired Oxygen 07/06/22 18:00 07/06/22 20:00 07/06/22 21:11 Temperature 98.0 F Pulse Rate 73 70 77 Respiratory Rate 20 24 H Blood Pressure 152/58 H Pulse Oximetry 99 Oxygen Delivery Oxygen Flow Rate Fraction of Inspired Oxygen 07/06/22 21:12 07/06/22 21:25 07/06/22 20:00 Temperature Pulse Rate 79 75 Respiratory Rate 22 H Blood Pressure Pulse Oximetry 96 Oxygen Delivery Nasal Cannula Oxygen Flow Rate
[2022-07-07 03:53] LABS: Hematocrit 26.2 % (42.0-52.0); Hemoglobin 8.7 g/dL (14.0-18.0); Mean Corpuscular HGB Conc 33.2 g/dl (32-36); Mean Corpuscular Hemoglobin 30.3 pg (26-34); Mean Corpuscular Volume 91.3 fl (80-100); Mean Platelet Volume 9.3 fl (7.4-10.4); Platelet Count Result 178 k/mm3 (150-375); Red Blood Count 2.87 M/mm3 (4.6-6.20); Red Cell Distribution Width 17.3 % (11.5-14.5); White Blood Count 26.5 K/mm3 (4.5-10.0)
[2022-07-07 04:10] LABS: Anion Gap 3 mmol/L (8-16); Blood Urea Nitrogen 19 mg/dL (9-20); Calcium 7.6 mg/dL (8.4-10.2); Carbon Dioxide 33 mmol/L (22-30); Chloride 93 mmol/L (98-107); Estimated CRCL calculation 78 ml/min; Estimated Glomerular Filt Rate > 60; Glucose 152 mg/dL (65-110); Potassium 3.7 mmol/L (3.4-5.0); Sodium 129 mmol/L (137-145)
[2022-07-07 04:11] LABS: Ammonia 23 umol/L (9-30)
[2022-07-07 04:19] LABS: Creatine Kinase 2699 U/L (55-170)
[2022-07-07 04:27] LABS: Glucose Point of Care 199 mg/dl (65-105)
[2022-07-07 04:28] LABS: Troponin I 0.099 ng/mL (0.000-0.034)
[2022-07-07 04:29] LABS: Anisocytosis 1+ (NORMAL); Band Neutrophils Percent 11 % (0-6); Hypersegmented Neutrophils Present; Hypochromasia 2+ (NORMAL); Lymphocytes Absolute Manual 2.12 K/mm3 (1.1-4.5); Macrocytosis 1+ (NORMAL); Metamyelocytes Percent 1 %; Microcytosis 1+ (NORMAL); Monocytes Absolute Manual 0.26 K/mm3 (0.1-0.90); Monocytes Percent Manual 1 % (3-9); Myelocytes Percent 1 %; Neutrophils Absolute Manual 23.58 K/mm3 (1.3-6.7); Neutrophils Percent Manual 78 % (46-73); Nucleated Red Blood Cells 2 %; Ovalocytes 1+ (NORMAL); Platelet Estimate Adequate (Adequate); Poikilocytosis 1+ (NORMAL); Schistocytes None Seen (NORMAL); Total Cells Counted 100
[2022-07-07 04:30] LABS: Atypical Lymphocytes Present; Burr Cells 1+ (NORMAL); Crenated RBC 1+ (NORMAL)
[2022-07-07 05:10] LABS: Alanine Aminotransferase 55 U/L (6-50); Albumin Level 3.9 g/dL (3.5-5.1); Alkaline Phosphatase 72 U/L (38-126); Aspartate Amino Transferase 96 U/L (17-59); Bilirubin,Total 1.9 mg/dL (0.2-1.3)
[2022-07-07 06:19] LABS: Base Excess ABG 4.7 mEq/l (+/-2.0); Fractional Inspired Oxygen 50 %; HCO3 ABG 30.1 mEq/l (22.0-26.0); Oxygen Content ABG 10.3 %vol (16.0-22.0); Oxygen Saturation ABG 95.2 % (95.0-100.0); PCO2 ABG 50.2 mmHg (35.0-45.0); PO2 FiO2 Ratio Arterial Blood 1.54 %; pH ABG 7.396 (7.350-7.450)
[2022-07-07] MEDS: AMPICILLIN SULB 3 GM/NS 100 ML 3 GM/100 ML VIAL IVPB ×3 (06:21→11:13)
[2022-07-07] MEDS: methylPREDNISolone SOD SUCC 125 MG VIAL 60 MG IV PUSH (06:22)
[2022-07-07 06:23] LABS: Device BIPAP; Modified Allen's Test Pass; Site Drawn RIGHT RADIAL; Total Hemoglobin 7.8 g/dL (12.0-18.0)
[2022-07-07 06:24] LABS: Expiratory Pressure 5 cmH2O; Inspiratory Pressure 15 cmH2O
[2022-07-07 07:15] LABS: Iron 143 ug/dL (49-181)
[2022-07-07 07:25] LABS: Percent Iron Saturation 38 % (20-50)
[2022-07-07 07:27] LABS: Troponin I 0.293 ng/mL (0.000-0.034)
[2022-07-07] MEDS: PANTOPRAZOLE SODIUM IV 40 MG VIAL IV PUSH ×2 (08:15→21:17)
[2022-07-07] MEDS: SCOPOLAMINE 1.5 MG PATCH TRANSDERM (08:15)
[2022-07-07] MEDS: RANOLAZINE 500 MG TAB.ER.12H PO ×2 (08:16→21:18)
[2022-07-07] MEDS: SODIUM CHLORIDE 1 GM TABLET PO ×3 (08:16→17:16)
[2022-07-07] MEDS: SIMVASTATIN 20 MG TABLET PO (08:17)
--- NOTE | 2022-07-07 08:30 | PM.IMPN ---
Progress Note: A&P Assessment and Plan (1) Acute respiratory failure with hypoxemia: Code(s): J96.01 - Acute respiratory failure with hypoxia Status: Acute (2) Closed fracture of right proximal humerus: Qualifiers: Encounter type: subsequent encounter Fracture alignment: displaced Fracture morphology: other fracture Code(s): S42.201A - Unspecified fracture of upper end of right humerus, initial encounter for closed fracture Status: Acute (3) Rhabdomyolysis: Code(s): M62.82 - Rhabdomyolysis Status: Acute (4) Pneumonia: Code(s): J18.9 - Pneumonia, unspecified organism Status: Acute Plan 71-year-old male patient who has a history of having multiple falls.? The patient was seen in the emergency room on 06/23/2022 when he fell in the parking lot at [employer] landed on his right shoulder. Patient presented again on 07/01/22 after being found down, found to have rhabdomyolysis. 1)Rhabdomyolysis: CK trending up the last few days, appreciate renal consult Renal Function WNL IVF d/c d/t anasarca w/gut edema noted on CT and resp failure o/n May need gentle IVF + IV lasix, defer to nephro for now, monitor 2)Hyponatremia: Renal Consult appreciated IVF d/c On sodium chloride tabs 1g TID 3)MSSA Bacteremia vs contaminant: 05/05 bld cx positive to MSSA Abx noted below Monitor repeat blood cultures 4)?Aspiration PNA with h/o COPD: On BIPAP, ABGs improving Worsened resp failure overnight, broadened abx to vanc + cefepime, hold off on atypical coverage for now, recheck cbc this afternoon C/w bronchodilators De-escalate steroids, completed 7 day course 07/07/22, do not suspect COPD exac at this time Yeast isolated in sputum, ?colonization, monitor, consider micafungin if decompensation on abx, hold off for now Consider pulm consult if he does not improve as expected ABGs improving 5)Right Humerus Fracture: Appreciate Ortho help Likely Surgical intervention once stable 6)Acute Anemia: ?Etiology CT abdomen/pelvis remarkable for anasarca, no source of bleeding noted Hgb resolved s/p 2 units, monitor FOBT negative Hold ASA, hep SQ Consult hematology pending 7)Acute Encephalopathy: neuro consult pending 8) Hypocalcemia: unsure of etiology, contine IVF replace calcium gluconate 1 g and recheck 9)DVT ppx:SCD 10)Code:Full 11)Dispo:pending improvement, critically ill Time Spent With Patient Time with patient: 25 - 35 minutes Subjective Date/time seen: 07/07/22 08:30 Interval history: Overnight events noted. Rapid response called due to resp failure, given lasix, IVF d/c, started on BIPAP, abx broadened. Patient comfortable on BiPAP at this time, much less confused. Review of Systems Review of Systems: ROS unobtainable: Yes unobtainable due to mental status Exam Narrative: General: No acute distress, comfortable on BiPAP, a little confused, alert HEENT: Atraumatic, normocephalic, mucous membranes dry CV: Regular rate and rhythm, S1, S2 Lungs: Coarse and diminished breath sounds throughout, no wheezes noted, crackles at bases Abdomen: Soft, nontender, nondistended Extremities: Significant bruising noted over right upper extremity, bandaged Psych: Unable to assess Objective Data Vital Signs Vital Signs: Vital Signs - 24 hr 07/06/22 09:57 07/06/22 10:10 07/06/22 10:00 Temperature 97.6 F 97.7 F Pulse Rate 68 70 74 Respiratory Rate 22 H 22 H Blood Pressure 135/75 114/88 Pulse Oximetry 97 93 Oxygen Delivery Oxygen Flow Rate Fraction of Inspired Oxygen 07/06/22 11:10 07/06/22 12:02 07/06/22 12:10 Temperature 97.6 F 97.7 F 97.7 F Pulse Rate 69 71 71 Respiratory Rate 20 22 H 22 H Blood Pressure 124/87 144/72 H 144/72 H Pulse Oximetry 95 96 99 Oxygen Delivery Oxygen Flow Rate Fraction of Inspired Oxygen 07/06/22 12:29 07/06/22 12:00 07/06/22 12:47 Temperature 97.7 F 98.1 F Pulse Rate 69 70 Respiratory Ra
--- NOTE | 2022-07-07 08:40 | PCOTNOTE ---
Attempted to see Patient at this time. Per RN, Patient having a PICC line placed right now and is BIPAP at this time. Per RN, try to check back at a later time.
[2022-07-07] MEDS: LIDOCAINE HCL 1% PF INJ 5 ML VIAL INFILTRATE (08:45)
--- NOTE | 2022-07-07 09:26 | PCPTNOTE ---
Addendum entered by Aggie Damian, PT 07/08/22 07:49: Spoke with RN about pt being able to tolerate working with PT at 0930 on 07/07/22. RN reports pt may do better in afternoon given pt started on bipap. At 1604 on 07/07/22, pt was getting bed bath with nursing staff. Original Note: Called hospitalist to confirm pt being appropriate for therapy this date. Per Dr. Patterson, pt ok to mobilize this morning.
[2022-07-07] MEDS: SILVERGEL (ELTA) 45 ML 1 APPLIC TOPICAL (10:32)
[2022-07-07 10:56] LABS: Alveolar/Arterial O2 Gradient 232.1 mmHg; Base Excess ABG 5.4 mEq/l (+/-2.0); Fractional Inspired Oxygen 50 %; HCO3 ABG 29.3 mEq/l (22.0-26.0); Modified Allen's Test Pass; Oxygen Content ABG 10.8 %vol (16.0-22.0); Oxygen Saturation ABG 96.4 % (95.0-100.0); Oxyhemoglobin 93.8 % THb (90.0-100.0); PCO2 ABG 40.4 mmHg (35.0-45.0); PO2 FiO2 Ratio Arterial Blood 1.58 %; Site Drawn LEFT RADIAL; Total Hemoglobin 8.1 g/dL (12.0-18.0); pH ABG 7.479 (7.350-7.450)
[2022-07-07 10:57] LABS: Device BIPAP; Expiratory Pressure 5 cmH2O; Inspiratory Pressure 15 cmH2O
[2022-07-07 11:07] LABS: Troponin I 0.256 ng/mL (0.000-0.034)
[2022-07-07] MEDS: CALCIUM GLUC 1,000 MG/NS 50 ML 1,000 MG/50 ML BAG 100 MG IVPB (12:02)
--- NOTE | 2022-07-07 12:28 | P.PNNP_ITS ---
Progress Note: A&P Assessment and Plan (1) Hyponatremia: Code(s): E87.1 - Hypo-osmolality and hyponatremia Status: Acute Assessment and Plan: * better/improving at this time * acute on chronic issue * baseline sodium seems to run around 129 - 134 at best * worsening noted during this hospitalization * multiple risk factors for hyponatremia: * pneumonia * lung disease (COPD) * SSRI use (lexapro) * PPI use (nexium) * pain (from recent fall/trauma/fractures) * hypothyroidism (restarted treatment on this admission) * cSPEP. UPEP, serum/urine osmo pending * urine electrolytes not prerenal * hold off on checking cortisol - already on steroids * on salt tablets already * follow trend of repeat sodium levels (2) Acute respiratory failure with hypoxemia: Code(s): J96.01 - Acute respiratory failure with hypoxia Status: Acute Assessment and Plan: * as evidence by events overnight * imaging consistent (CXR and CT scan) with fluid/volume overload * IV diureis * follow respiratory status (3) Rhabdomyolysis: Code(s): M62.82 - Rhabdomyolysis Status: Acute Assessment and Plan: * CPK quite elevated on admission * off IVF hydration due to #2 * CPK still mildly elevated but renal function stable * follow/trend CPK levels (4) Anemia: Code(s): D64.9 - Anemia, unspecified Status: Acute Assessment and Plan: * significant drop in H/H previously * s/p PRBC transfusion * GI loss versus due to trauma? * follow trend of H/H (5) Pneumonia: Code(s): J18.9 - Pneumonia, unspecified organism Status: Acute Assessment and Plan: * as noted by admission imaging * on antibiotics * follow culture data (6) COPD (chronic obstructive pulmonary disease): Qualifiers: COPD type: unspecified COPD Qualified Code(s): J44.9 - Chronic obstructive pulmonary disease, unspecified Code(s): J44.9 - Chronic obstructive pulmonary disease, unspecified Status: Acute Assessment and Plan: * exacerbated by #5 * on nebulizer treatments, steroids, supplemental oxygen * continues supportive therapy (7) Closed fracture of right proximal humerus: Qualifiers: Encounter type: subsequent encounter Fracture alignment: displaced Fracture morphology: other fracture Code(s): S42.201A - Unspecified fracture of upper end of right humerus, initial encounter for closed fracture Status: Acute Assessment and Plan: * displaced right proximal humerus fracture as noted by imaging * Orthopedics following * possible surgical intervention once medically optimized Will continue to follow. Subjective Date/time seen: 07/07/22 12:28 Events noted overnight; rapid response called worsening respiratory status/hypoxia; CXR with evidence of volume overload/pulmonary edema so IVFs stopped and given IV diuretics; started on BiPAP therapy which appears to help and respiratory status seems a bitter at this time. Exam Narrative: General: ill appearing male in NAD, on BIPAP Heart: normal S1 and S2; no rub Lungs: clear to auscultation Abdomen: soft, nontender, nondistended, positive bowel sounds Extremities: no cyanosis or clubbing; no edema; right sling in place Skin: resolving ecchymoses on right chest and right upper arm Objective Data Vital Signs Vital Signs:
--- NOTE | 2022-07-07 12:28 | PM.PNNEP ---
Progress Note: A&P Assessment and Plan (1) Hyponatremia: Code(s): E87.1 - Hypo-osmolality and hyponatremia Status: Acute Assessment and Plan: better/improving at this time acute on chronic issue baseline sodium seems to run around 129 - 134 at best worsening noted during this hospitalization multiple risk factors for hyponatremia: pneumonia lung disease (COPD) SSRI use (lexapro) PPI use (nexium) pain (from recent fall/trauma/fractures) hypothyroidism (restarted treatment on this admission) cSPEP. UPEP, serum/urine osmo pending urine electrolytes not prerenal hold off on checking cortisol - already on steroids on salt tablets already follow trend of repeat sodium levels (2) Acute respiratory failure with hypoxemia: Code(s): J96.01 - Acute respiratory failure with hypoxia Status: Acute Assessment and Plan: as evidence by events overnight imaging consistent (CXR and CT scan) with fluid/volume overload IV diureis follow respiratory status (3) Rhabdomyolysis: Code(s): M62.82 - Rhabdomyolysis Status: Acute Assessment and Plan: CPK quite elevated on admission off IVF hydration due to #2 CPK still mildly elevated but renal function stable follow/trend CPK levels (4) Anemia: Code(s): D64.9 - Anemia, unspecified Status: Acute Assessment and Plan: significant drop in H/H previously s/p PRBC transfusion GI loss versus due to trauma? follow trend of H/H (5) Pneumonia: Code(s): J18.9 - Pneumonia, unspecified organism Status: Acute Assessment and Plan: as noted by admission imaging on antibiotics follow culture data (6) COPD (chronic obstructive pulmonary disease): Qualifiers: COPD type: unspecified COPD Qualified Code(s): J44.9 - Chronic obstructive pulmonary disease, unspecified Code(s): J44.9 - Chronic obstructive pulmonary disease, unspecified Status: Acute Assessment and Plan: exacerbated by #5 on nebulizer treatments, steroids, supplemental oxygen continues supportive therapy (7) Closed fracture of right proximal humerus: Qualifiers: Encounter type: subsequent encounter Fracture alignment: displaced Fracture morphology: other fracture Code(s): S42.201A - Unspecified fracture of upper end of right humerus, initial encounter for closed fracture Status: Acute Assessment and Plan: displaced right proximal humerus fracture as noted by imaging Orthopedics following possible surgical intervention once medically optimized Will continue to follow. Subjective Date/time seen: 07/07/22 12:28 Events noted overnight; rapid response called worsening respiratory status/hypoxia; CXR with evidence of volume overload/pulmonary edema so IVFs stopped and given IV diuretics; started on BiPAP therapy which appears to help and respiratory status seems a bitter at this time. Exam Narrative: General: ill appearing male in NAD, on BIPAP Heart: normal S1 and S2; no rub Lungs: clear to auscultation Abdomen: soft, nontender, nondistended, positive bowel sounds Extremities: no cyanosis or clubbing; no edema; right sling in place Skin: resolving ecchymoses on right chest and right upper arm Objective Data Vital Signs Vital Signs: Vital Signs Temp Pulse Resp BP Pulse Ox O2 Del Method O2 Flow Rate 07/07/22 12:00 100 BiPAP 07/07/22 12:18 98.1 F 75 25 H 129/65 100 07/07/22 10:59 74 23 H 94 BiPAP 07/07/22 10:00 76 07/07/22 08:00 74 07/07/22 08:00 100 BiPAP 07/07/22 08:32 77 30 H 07/07/22 08:29 76 28 H 100 BiPAP 07/07/22 08:28 76 30 H 100 BiPAP 07/07/22 08:20 76 28 H 07/07/22 07:37 98 F 72 16 98/52 L 99 07/07/22 04:00 93 24 H 95 BiPAP 07/07/22 04:00 98 07/07/22 02:00 88 07/07/22 04:00 9
--- NOTE | 2022-07-07 12:56 | WPDNEURCNPN ---
Assessment and Plan Assessment and plan (1) Encephalopathy: Code(s): G93.40 - Encephalopathy, unspecified Status: Acute Plan encephalopathy with stormy course patient is being treated with the antibiotics will obtain the EEG and also if necessary his spinal fluid studies while he is being continued on all these medications rule out the possibility of meningitis encephalitis Consult date: 07/07/22 HPI: Cecilio Bergeron is a 71 year old male admitted to the hospital through the emergency room on July 01, 2022 for the complaints of previous upper extremity fracture when he was found on the ground at home where he had been lying at least 9 hours and with the information that he takes lot of pain medication and Xanax other medications include aspirin 81 mg baclofen 10 mg E site aloe prime 20 mg tramadol 50 mg q.6 hours p.r.n. also being allergic to atorvastatin turban of fine methocarbamol, history of COPD, coronary artery disease, hyper cholesterolemia, history of thyroid cancer which has been treated with chemotherapy and radiation treatment and also history of right upper lobe pneumonectomy for the cancer of the lung history of smoking 50 years 50 smoking pack years currently everyday smoker and drinks alcohol but last drink in August of 1984 initial vital signs in a routine lab not significant except hyponatremia investigation documented normal CT scan of the head for the bleed and tumor, displaced comminuted right humeral neck fracture focal dilatation of the 3rd portion of duodenum in addition 3.2cm fusiform infrarenal abdominal aortic aneurysm on the CT scan patient is being followed by the [facility] as well for the hyponatremia has been documented elevated CPK has been receiving cefepime 2 g IV piggyback q.8 hours in addition to vancomycin . At present being treated for the execute respiratory failure of multi factorial nature. carries the code status and neuro consult has been obtained because of the encephalopathy [facility] Past Medical History Medical History (Updated 07/07/22 @ 13:07 by Satish Byers MD) Basal cell carcinoma Closed fracture of right proximal humerus COPD (chronic obstructive pulmonary disease) Coronary artery disease Dr. Mane GERD (gastroesophageal reflux disease) High cholesterol History of thyroid cancer Treated with chemotherapy and radiation Hypertension Hypothyroidism Lung cancer Status post right upper lobe pneumonectomy Peripheral neuropathy Surgical History Surgical History H/O right inguinal hernia repair (04/07/21) Repair of right inguinal hernia with 6 cm Parietex hernia mesh system History of bilateral carpal tunnel release History of colonoscopy History of coronary angioplasty History of esophagogastroduodenoscopy (EGD) 2006 History of hemorrhoidectomy History of left inguinal hernia repair (11/2018) With 8 cm of [address]ari[address]ex mesh dr. Stapleton History of medial meniscus repair of right knee (~2005) History of pneumonectomy (~2014) Right upper lobe due to lung cancer History of ventral hernia repair (~06/2006) Gastric volvulus with ventral hernia repair Hx of CABG (~09/2002) 4 vessel CABG Hx of cholecystectomy Status post cataract extraction of both eyes with insertion of intraocular lens (~2015) Family History Family History Mother MVA (motor vehicle accident) Father Gunshot wound Sibling Heart disease Other Family history of cardiovascular disease Social History Social History (Updated 07/01/22 @ 20:31 by Makeda Copeland NP) Social History: He lives alone. He has smoked as much as a pack of cigarettes per day since he was 20 years old. He is now down to 4-5 cigarettes a day. 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 code status full code Smoking packs per d
[2022-07-07 14:58] LABS: Hematocrit 21.2 % (42.0-52.0); Hemoglobin 7.2 g/dL (14.0-18.0); Mean Corpuscular Hemoglobin 30.4 pg (26-34); Mean Corpuscular Volume 89.5 fl (80-100); Mean Platelet Volume 10.2 fl (7.4-10.4); Platelet Count Result 128 k/mm3 (150-375); Red Blood Count 2.37 M/mm3 (4.6-6.20); Red Cell Distribution Width 17.2 % (11.5-14.5); White Blood Count 22.1 K/mm3 (4.5-10.0)
[2022-07-07] MEDS: CENTRAL LINE FLUSH 10 ML IV PUSH ×2 (15:11→21:25)
[2022-07-07] MEDS: CEFEPIME 2 GM/NS 50 ML 2 GM/50 ML BAG IVPB ×2 (15:21→21:23)
[2022-07-07] MEDS: ALPRAZolam (*CRX) 0.5 MG TABLET 1 MG PO (15:26)
[2022-07-07 15:33] LABS: Band Neutrophils Percent 3 % (0-6); Lymphocytes Absolute Manual 0.22 K/mm3 (1.1-4.5); Monocytes Absolute Manual 0.44 K/mm3 (0.1-0.90); Monocytes Percent Manual 2 % (3-9); Neutrophils Absolute Manual 21.43 K/mm3 (1.3-6.7); Neutrophils Percent Manual 94 % (46-73); Nucleated Red Blood Cells 2 %; Platelet Estimate Decreased (Adequate); Total Cells Counted 100
[2022-07-07 15:34] LABS: Anisocytosis 3+ (NORMAL); Schistocytes None Seen (NORMAL)
--- NOTE | 2022-07-07 18:58 | PDONCCN ---
HPI - Date of Consult Date/Time: 07/07/22 18:58 Requesting Physician: Abby Sanchez MD Primary Care Provider: Elodia Shoemaker, DIGITAL FOR[employer]IC ANALYST - Consult Narrative Reason for consult: Leukocytosis and normocytic anemia Narrative: Cecilio Bergeron is a 71 year old male with history of coronary artery disease, thyroid cancer status post chemotherapy and radiation therapy, lung cancer status post right upper lung lobe pneumonectomy and COPD came to the hospital with generalized weakness and recurrent falls. Patient had a TR skin on the right arm. On the x-ray he was found to have mildly displaced proximal right femoral fracture. He was brought into the ER after being found on the ground. CT scan chest abdomen pelvis were performed that showed likely upper lobe pneumonia and dilation of the 3rd portion of duodenum likely I ileus. Patient was started on Zosyn for aspiration pneumonia. Labs on admission showed normal WBC count of 7.7 now is up to 22.1. Hemoglobin was 8.8 then dropped to 5.5. Patient is also mildly thrombocytopenic with platelet of [id number]. Patient has received 4 units of packed red blood cells so far. Patient was also found to have elevated CK suggesting rhabdomyolysis. He is currently being treated for MSSA bacteremia and aspiration pneumonia. Hemoccult stool was negative. Review of Systems - Review of Systems All systems reviewed & are unremarkable except as noted in HPI and bel - Neurologic Reports system reviewed and no additional complaints, except as documented, Reports hearing normal [facility] Medical History: Medical History (Last Updated 07/03/22 @ 13:53 by Abby Sacnhez MD) Basal cell carcinoma Closed fracture of right proximal humerus COPD (chronic obstructive pulmonary disease) Coronary artery disease Dr. Mane GERD (gastroesophageal reflux disease) High cholesterol History of thyroid cancer Treated with chemotherapy and radiation Hypertension Hypothyroidism Lung cancer Status post right upper lobe pneumonectomy Peripheral neuropathy Surgical History: Surgical History (Last Reviewed 07/01/22 @ 17:33 by Makeda Copeland NP) H/O right inguinal hernia repair Onset Date: 08/06/20 Repair of right inguinal hernia with 6 cm Parietex hernia mesh system History of bilateral carpal tunnel release History of colonoscopy History of coronary angioplasty History of esophagogastroduodenoscopy (EGD) 2006 History of hemorrhoidectomy History of left inguinal hernia repair Onset Date: 11/2018 With 8 cm of Parietex mesh dr. Stapleton History of medial meniscus repair of right knee Onset Date: ~2005 History of pneumonectomy Onset Date: ~2014 Right upper lobe due to lung cancer History of ventral hernia repair Onset Date: ~06/2006 Gastric volvulus with ventral hernia repair Hx of CABG Onset Date: ~09/2002 4 vessel CABG Hx of cholecystectomy Status post cataract extraction of both eyes with insertion of intraocular lens Onset Date: ~2015 Family History: Family History (Last Reviewed 07/01/22 @ 20:31 by Makeda Copeland NP) Mother MVA (motor vehicle accident) Father Gunshot wound Sibling Heart disease Other Family history of cardiovascular disease - Social History Social History: Social History (Last Updated 07/01/22 @ 20:31 by Makeda Copeland NP) Alcohol Use: Alcohol intake: never Drinks per week: 7 Alcohol use details: STATES LAST DRINK AUGUST 31, 1984 Substance Use: Substance use: never Substance use type: does not use Other substance usage details: hydrocodone, tylenol arthritis Others: Spiritual care concerns: No Living Arrangements: Living arrangements: alone Oppucation/Education: Occupation/Education: retired Smoking Status: Smoking status: Current every day smoker Tobacco type: cigarettes Second hand tobacco smoke exposure: Yes Smoking Pack-years: Smoking packs per day: 1 Smoking cigarettes
[2022-07-07 20:55] LABS: Folic Acid 9.2 ng/mL (2.76->20)
[2022-07-07] MEDS: HYDROcodone/acetaminophen (*CRX) 5-325 MG TABLET 1 TAB PO (21:18)
[2022-07-07] MEDS: ESCITALOPRAM OXALATE 10 MG TABLET 20 MG PO (21:18)
[2022-07-08] VITALS (31 sets, daily range): BP systolic 101–122; BP diastolic 48–63; PULSE 58–71; RESP 16–25; TEMP 36.1–37.4; O2SAT 91–100
[2022-07-08] MEDS: IPRATROPIUM BR 0.02% INH SOLN 0.5 MG/2.5 ML VIAL INHALATION ×4 (02:00→20:22)
[2022-07-08] MEDS: ALBUTEROL SULFATE NEB 2.5 MG/3 ML INH 5 MG INHALATION ×4 (02:00→20:21)
[2022-07-08] MEDS: CEFEPIME 2 GM/NS 50 ML 2 GM/50 ML BAG IVPB ×3 (05:20→21:39)
[2022-07-08] MEDS: LEVOTHYROXINE SODIUM 150 MCG TABLET PO (05:21)
[2022-07-08] MEDS: CENTRAL LINE FLUSH 10 ML IV PUSH ×3 (05:24→21:46)
[2022-07-08 06:57] LABS: Basophils Percent Auto 0.1 % (0.2-1.2); Immature Granulocyte Absolute 0.24 K/mm3 (0.00-0.031); Immature Granulocyte Percent A 1.5 % (0-0.5); Immature Platelet Fraction Pct 4.5 % (0.9-11.2); Lymphocytes Percent Auto 2.5 % (18.3-44.2); Mean Corpuscular HGB Conc 33.5 g/dl (32-36); Mean Corpuscular Hemoglobin 29.8 pg (26-34); Mean Corpuscular Volume 88.9 fl (80-100); Mean Platelet Volume 10.1 fl (7.4-10.4); Monocytes Absolute Auto 0.6 K/mm3 (0.1-0.6); Monocytes Percent Auto 3.8 % (2.6-8.5); Neutrophils Absolute Auto 14.6 K/mm3 (1.3-6.7); Neutrophils Percent Auto 92.1 % (45.5-73.1); Nucleated Red Blood Cells Absolute Auto 0.1 K/mm3 (0.0-0.012); Nucleated Red Blood Cells Perc 0.9 % (0.0-0.2); Platelet Count Result 104 k/mm3 (150-375); Red Blood Count 2.08 M/mm3 (4.6-6.20); Red Cell Distribution Width 16.9 % (11.5-14.5); White Blood Count 15.8 K/mm3 (4.5-10.0)
[2022-07-08 07:10] LABS: Alanine Aminotransferase 39 U/L (6-50); Albumin Level 2.5 g/dL (3.5-5.1); Alkaline Phosphatase 49 U/L (38-126); Anion Gap -3 mmol/L (8-16); Aspartate Amino Transferase 60 U/L (17-59); Bilirubin,Total 1.7 mg/dL (0.2-1.3); Blood Urea Nitrogen 17 mg/dL (9-20); Calcium 6.9 mg/dL (8.4-10.2); Carbon Dioxide 36 mmol/L (22-30); Chloride 96 mmol/L (98-107); Estimated CRCL calculation 102 ml/min; Estimated Glomerular Filt Rate > 60; Glucose 112 mg/dL (65-110); Sodium 129 mmol/L (137-145)
[2022-07-08 07:15] LABS: Hematocrit 18.5 % (42.0-52.0)
[2022-07-08 07:19] LABS: Hemoglobin 6.2 g/dL (14.0-18.0)
[2022-07-08 07:21] LABS: Anisocytosis 1+ (NORMAL); Hypochromasia 2+ (NORMAL); Macrocytosis 1+ (NORMAL)
[2022-07-08 07:25] LABS: Poikilocytosis 1+ (NORMAL)
[2022-07-08 07:26] LABS: Burr Cells 1+ (NORMAL); Schistocytes Rare (NORMAL)
[2022-07-08] MEDS: TUBING, BLOOD PLUM PUMP TUBING 1 EACH XX ×2 (08:41→13:18)
[2022-07-08] MEDS: SODIUM CHLORIDE 0.9% IV 250 ML 30 ML IV CONT (08:42)
[2022-07-08] MEDS: FLUTICASONE/UMECLIDIN/VILANTER 100-62.5-25 MCG ELLIPTA 1 PUFF INHALATION (09:06)
[2022-07-08] MEDS: PANTOPRAZOLE SODIUM IV 40 MG VIAL IV PUSH ×2 (09:18→20:34)
[2022-07-08] MEDS: SILVERGEL (ELTA) 45 ML 1 APPLIC TOPICAL (09:19)
--- NOTE | 2022-07-08 11:16 | PCPTNOTE ---
Attempted PT evaluation with approval from hospitalist given pt's current medical condition, Pt refused. Pt reporting being too tired to participate. RN aware. Will follow.
--- NOTE | 2022-07-08 11:51 | PM.PNORT ---
Progress Note: A&P Assessment and Plan (1) Closed fracture of right proximal humerus: Qualifiers: Encounter type: subsequent encounter Fracture morphology: other fracture Fracture alignment: displaced Code(s): S42.201A - Unspecified fracture of upper end of right humerus, initial encounter for closed fracture Status: Acute Plan Did discuss with the patient that we may and is treating this nonsurgically and except what ever we could get in terms of position. Following. Subjective Subjective Date/Time Seen: 07/08/22 11:51 Principal diagnosis: Dx: Interval history: 71-year-old who has got a right proximal humerus fracture. Multiple medical issues with some setbacks noted in the chart. Exam Const: General: cooperative HENMT: Head: normal to inspection Ears: hearing grossly normal bilaterally Resp: Other: Speaks but weakly Extrem: Other: Exam of right upper extremity shows extensive bruising still. Hematoma anterior deltoid not as prominent. Objective Data Vital Signs Vital Signs: Vital Signs - 24 hr 07/07/22 12:18 07/07/22 12:00 07/07/22 12:53 Temperature 98.1 F Pulse Rate 75 73 Respiratory Rate 25 H Blood Pressure 129/65 Pulse Oximetry 100 100 Oxygen Delivery BiPAP Oxygen Flow Rate Fraction of Inspired Oxygen 50 07/07/22 14:12 07/07/22 14:19 07/07/22 15:46 Temperature 97.4 F L Pulse Rate 77 77 72 Respiratory Rate 25 H 25 H 25 H Blood Pressure 119/67 Pulse Oximetry 95 98 Oxygen Delivery BiPAP Oxygen Flow Rate Fraction of Inspired Oxygen 07/07/22 15:48 07/07/22 16:00 07/07/22 16:39 Temperature Pulse Rate 74 95 Respiratory Rate 22 H Blood Pressure Pulse Oximetry 93 93 Oxygen Delivery BiPAP BiPAP Oxygen Flow Rate Fraction of Inspired Oxygen 50 07/07/22 18:06 07/07/22 20:00 07/07/22 21:14 Temperature 97.6 F Pulse Rate 69 68 73 Respiratory Rate 23 H 28 H Blood Pressure 120/55 L Pulse Oximetry 100 Oxygen Delivery Oxygen Flow Rate Fraction of Inspired Oxygen 07/07/22 21:28 07/07/22 21:31 07/07/22 22:11 Temperature Pulse Rate 73 69 70 Respiratory Rate 28 H 24 H 23 H Blood Pressure Pulse Oximetry 100 100 Oxygen Delivery BiPAP BiPAP Oxygen Flow Rate Fraction of Inspired Oxygen 07/07/22 20:00 07/07/22 23:48 07/08/22 00:00 Temperature 97.8 F Pulse Rate 69 67 67 Respiratory Rate 23 H 25 H 25 H Blood Pressure 108/50 L Pulse Oximetry 100 100 98 Oxygen Delivery BiPAP BiPAP Oxygen Flow Rate Fraction of Inspired Oxygen 45 45 07/07/22 20:00 07/07/22 22:00 07/08/22 00:00 Temperature Pulse Rate 69 74 61 Respiratory Rate Blood Pressure Pulse Oximetry Oxygen Delivery Oxygen Flow Rate Fraction of Inspired Oxygen 07/08/22 02:00 07/08/22 02:02 07/08/22 02:10 Temperature Pulse Rate 58 L 58 L 63 Respiratory Rate 22 H 22 H 22 H Blood Pressure Pulse Oximetry 99 Oxygen Delivery BiPAP Oxygen Flow Rate Fraction of Inspired Oxygen 07/08/22 02:00 07/08/22 04:00 07/08/22 04:00 Temperature Pulse Rate 64 62 64 Respiratory Rate 22 H Blood Pressure Pulse Oximetry 99 Oxygen Delivery BiPAP Oxygen Flow Rate Fraction of Inspired Oxygen 45 07/08/22 04:00 07/08/22 06:00 07/08/22 08:07 Temperature 97.7 F 96.9 F L Pulse Rate 63 62 62 Respiratory Rate 20 22 H Blood Pressure 105/56 L 104/58 L Pulse Oximetry 100 100 Oxygen Delivery Oxygen Flow Rate Fraction of Inspired Oxygen 07/08/22 09:00 07/08/22 09:05 07/08/22 09:05 Temperature 98.2 F Pulse Rate 63 63 63 Respiratory Rate 20 24 H Blood Pressure 112/61 Pulse Oximetry 91 91 Oxygen Delivery Nasal Cannula Oxygen Flow Rate 3 Fraction of Inspired Oxygen 07/08/22 09:26 07/08/22 09:29 07/08/22 10:26 Temperature 97.7 F 98.1 F Pulse Rate 60 60 65 Respiratory Rate 20 20 18 Blood Pressure 117/59 L 115/60 Pulse Oximet
--- NOTE | 2022-07-08 12:26 | P.PNNP_ITS ---
Progress Note: A&P Assessment and Plan (1) Hyponatremia: Code(s): E87.1 - Hypo-osmolality and hyponatremia Status: Acute Assessment and Plan: * better/improving at this time * acute on chronic issue * baseline sodium seems to run around 129 - 134 at best * worsening noted during this hospitalization * multiple risk factors for hyponatremia: * pneumonia * lung disease (COPD) * SSRI use (lexapro) * PPI use (nexium) * pain (from recent fall/trauma/fractures) * hypothyroidism (restarted treatment on this admission) * cSPEP. UPEP, serum/urine osmo pending * urine electrolytes not prerenal * hold off on checking cortisol - already on steroids * on salt tablets already * follow trend of repeat sodium levels (2) Acute respiratory failure with hypoxemia: Code(s): J96.01 - Acute respiratory failure with hypoxia Status: Acute Assessment and Plan: * as evidence by events overnight * imaging consistent (CXR and CT scan) with fluid/volume overload +/- pneumonia * IV diuresis as tolerated * on antibiotics * follow respiratory status (3) Rhabdomyolysis: Code(s): M62.82 - Rhabdomyolysis Status: Acute Assessment and Plan: * CPK quite elevated on admission * holding IVF hydration due to #2 * CPK still mildly elevated but renal function stable * follow/trend CPK levels (4) Anemia: Code(s): D64.9 - Anemia, unspecified Status: Acute Assessment and Plan: * significant drop in H/H previously * s/p PRBC transfusion * GI loss versus due to trauma? * follow trend of H/H (5) Pneumonia: Code(s): J18.9 - Pneumonia, unspecified organism Status: Acute Assessment and Plan: * as noted by admission imaging * on antibiotics * follow culture data (6) COPD (chronic obstructive pulmonary disease): Qualifiers: COPD type: unspecified COPD Qualified Code(s): J44.9 - Chronic obstructive pulmonary disease, unspecified Code(s): J44.9 - Chronic obstructive pulmonary disease, unspecified Status: Acute Assessment and Plan: * exacerbated by #5 * on nebulizer treatments, steroids, supplemental oxygen * continues supportive therapy (7) Closed fracture of right proximal humerus: Qualifiers: Encounter type: subsequent encounter Fracture morphology: other fracture Fracture alignment: displaced Code(s): S42.201A - Unspecified fracture of upper end of right humerus, initial encounter for closed fracture Status: Acute Assessment and Plan: * displaced right proximal humerus fracture as noted by imaging * Orthopedics following * possible surgical intervention once medically optimized Will continue to follow. Subjective Date/time seen: 07/08/22 12:26 Respiratory status seems better if not relatively stable (on/off 3L nasal cannula as well as BiPAP therapy); drop in H/H noted again by AM labs with PRBC transfusion ordered; Hem/Onc recommendations noted as well; sodium has remained relatively stable with current therapy. Exam Narrative: General: ill appearing male in NAD, on/off BIPAP Heart: normal S1 and S2; no rub Lungs: coarse breath sounds Abdomen: soft, nontender, nondistended, positive bowel sounds Extremities: no cyanosis or clubbing; no edema; right sling in place Skin: resolving ecchymoses on right chest and right upper arm Objective Data Vital Signs Vital Signs:
--- NOTE | 2022-07-08 12:26 | PM.PNNEP ---
Progress Note: A&P Assessment and Plan (1) Hyponatremia: Code(s): E87.1 - Hypo-osmolality and hyponatremia Status: Acute Assessment and Plan: better/improving at this time acute on chronic issue baseline sodium seems to run around 129 - 134 at best worsening noted during this hospitalization multiple risk factors for hyponatremia: pneumonia lung disease (COPD) SSRI use (lexapro) PPI use (nexium) pain (from recent fall/trauma/fractures) hypothyroidism (restarted treatment on this admission) cSPEP. UPEP, serum/urine osmo pending urine electrolytes not prerenal hold off on checking cortisol - already on steroids on salt tablets already follow trend of repeat sodium levels (2) Acute respiratory failure with hypoxemia: Code(s): J96.01 - Acute respiratory failure with hypoxia Status: Acute Assessment and Plan: as evidence by events overnight imaging consistent (CXR and CT scan) with fluid/volume overload +/- pneumonia IV diuresis as tolerated on antibiotics follow respiratory status (3) Rhabdomyolysis: Code(s): M62.82 - Rhabdomyolysis Status: Acute Assessment and Plan: CPK quite elevated on admission holding IVF hydration due to #2 CPK still mildly elevated but renal function stable follow/trend CPK levels (4) Anemia: Code(s): D64.9 - Anemia, unspecified Status: Acute Assessment and Plan: significant drop in H/H previously s/p PRBC transfusion GI loss versus due to trauma? follow trend of H/H (5) Pneumonia: Code(s): J18.9 - Pneumonia, unspecified organism Status: Acute Assessment and Plan: as noted by admission imaging on antibiotics follow culture data (6) COPD (chronic obstructive pulmonary disease): Qualifiers: COPD type: unspecified COPD Qualified Code(s): J44.9 - Chronic obstructive pulmonary disease, unspecified Code(s): J44.9 - Chronic obstructive pulmonary disease, unspecified Status: Acute Assessment and Plan: exacerbated by #5 on nebulizer treatments, steroids, supplemental oxygen continues supportive therapy (7) Closed fracture of right proximal humerus: Qualifiers: Encounter type: subsequent encounter Fracture morphology: other fracture Fracture alignment: displaced Code(s): S42.201A - Unspecified fracture of upper end of right humerus, initial encounter for closed fracture Status: Acute Assessment and Plan: displaced right proximal humerus fracture as noted by imaging Orthopedics following possible surgical intervention once medically optimized Will continue to follow. Subjective Date/time seen: 07/08/22 12:26 Respiratory status seems better if not relatively stable (on/off 3L nasal cannula as well as BiPAP therapy); drop in H/H noted again by AM labs with PRBC transfusion ordered; Hem/Onc recommendations noted as well; sodium has remained relatively stable with current therapy. Exam Narrative: General: ill appearing male in NAD, on/off BIPAP Heart: normal S1 and S2; no rub Lungs: coarse breath sounds Abdomen: soft, nontender, nondistended, positive bowel sounds Extremities: no cyanosis or clubbing; no edema; right sling in place Skin: resolving ecchymoses on right chest and right upper arm Objective Data Vital Signs Vital Signs: Vital Signs Temp Pulse Resp BP Pulse Ox O2 Del Method O2 Flow Rate 07/08/22 12:16 97.4 F L 62 20 104/56 L 97 07/08/22 10:26 98.1 F 65 18 115/60 100 07/08/22 09:29 60 20 07/08/22 09:26 97.7 F 60 20 117/59 L 100 07/08/22 09:05 63 24 H 07/08/22 09:05 63 91 Nasal Cannula 3 07/08/22 09:00 98.2 F 63 20 112/61 91 07/08/22 08:07 96.9 F L 62 22 H 104/58 L 100 07/08/22 06:00 62 07/08/22 04:00 97.7 F 63 20 105/56 L 100 07/08/22 04:00 64 22 H 99 BiP
[2022-07-08] MEDS: SODIUM CHLORIDE 0.9% IV 250 ML 30 ML (13:19)
--- NOTE | 2022-07-08 14:57 | PM.IMPN ---
Progress Note: A&P Assessment and Plan (1) Acute respiratory failure with hypoxemia: Code(s): J96.01 - Acute respiratory failure with hypoxia Status: Acute (2) Closed fracture of right proximal humerus: Qualifiers: Encounter type: subsequent encounter Fracture alignment: displaced Fracture morphology: other fracture Code(s): S42.201A - Unspecified fracture of upper end of right humerus, initial encounter for closed fracture Status: Acute (3) Rhabdomyolysis: Code(s): M62.82 - Rhabdomyolysis Status: Acute (4) Pneumonia: Code(s): J18.9 - Pneumonia, unspecified organism Status: Acute Plan 71-year-old male patient who has a history of having multiple falls.? The patient was seen in the emergency room on 06/23/2022 when he fell in the parking lot at [employer] landed on his right shoulder. Patient presented again on 07/01/22 after being found down, found to have rhabdomyolysis. 1)Rhabdomyolysis: Significantly improved, down to 1100 today Renal Function WNL IVF d/c d/t anasarca w/gut edema noted on CT and resp failure o/n 2)Hyponatremia: Renal Consult appreciated IVF d/c On sodium chloride tabs 1g TID 3)MSSA Bacteremia vs contaminant: 05/05 bld cx positive to MSSA Abx noted below Monitor repeat blood cultures Leuk improving 4)?Aspiration PNA with h/o COPD: Weaned off BIPAP, down to 2L nc Worsened resp failure 07/06, concerning for HAP, broadened abx to vanc + cefepime, now improving C/w bronchodilators De-escalate steroids, completed 7 day course 07/07/22, do not suspect COPD exac at this time Yeast isolated in sputum, ?colonization 5)Right Humerus Fracture: Appreciate Ortho help Plan is for OR on Tuesday if patient stable 6)Acute Anemia: ?Etiology, could be retroperitoneal bleed versus bleeding into the shoulder joint versus? CT abdomen/pelvis remarkable for anasarca, no source of bleeding noted s/p 4 units, now low again, another 2 units ordered, recheck pending FOBT negative Hold ASA, hep SQ Appreciate hem/onc consult 7)Acute Encephalopathy: Resolved 8) Hypocalcemia: Resolved 9)DVT ppx:SCD 10)Code:Full 11)Dispo:pending improvement, critically ill Subjective Date/time seen: 07/08/22 14:57 Interval history: Patient weaned to 2 L nasal cannula today off the BiPAP. No overnight events noted. No chest pain or shortness of breath. No nausea, vomiting or diarrhea. No fevers or chills. Still with shoulder pain. Review of Systems Review of Systems: 12 point review of systems was assessed and was negative except as noted in the HPI Exam Narrative: General: No acute distress, alert and oriented per baseline HEENT: Atraumatic, normocephalic, mucous membranes dry CV: Regular rate and rhythm, S1, S2 Lungs: Moderate air entry, no wheeze Abdomen: Soft, nontender, nondistended Extremities: Significant bruising noted over right upper extremity, bandaged Psych: Euthymic Objective Data Vital Signs Vital Signs: Vital Signs - 24 hr 07/07/22 15:46 07/07/22 15:48 07/07/22 16:00 Temperature 97.4 F L Pulse Rate 72 74 Respiratory Rate 25 H 22 H Blood Pressure 119/67 Pulse Oximetry 98 93 93 Oxygen Delivery BiPAP BiPAP Oxygen Flow Rate Fraction of Inspired Oxygen 50 07/07/22 16:39 07/07/22 18:06 07/07/22 20:00 Temperature 97.6 F Pulse Rate 95 69 68 Respiratory Rate 23 H Blood Pressure 120/55 L Pulse Oximetry 100 Oxygen Delivery Oxygen Flow Rate Fraction of Inspired Oxygen 07/07/22 21:14 07/07/22 21:28 07/07/22 21:31 Temperature Pulse Rate 73 73 69 Respiratory Rate 28 H 28 H 24 H Blood Pressure Pulse Oximetry 100 Oxygen Delivery BiPAP Oxygen Flow Rate Fraction of Inspired Oxygen 07/07/22 22:11 07/07/22 20:00 07/07/22 23:48 Temperature 97.8 F Pulse Rate 70 69 67 Respiratory Rate 23 H 23 H 25 H Blood Pressure 108/50 L Pulse Oximetry 100 100 100 Oxygen De
[2022-07-08 16:31] LABS: Basophils Percent Auto 0.1 % (0.2-1.2); Hematocrit 24.9 % (42.0-52.0); Hemoglobin 8.3 g/dL (14.0-18.0); Immature Granulocyte Absolute 0.34 K/mm3 (0.00-0.031); Immature Granulocyte Percent A 2.2 % (0-0.5); Lymphocytes Absolute Auto 0.32 K/mm3 (0.9-3.2); Lymphocytes Percent Auto 2.1 % (18.3-44.2); Mean Corpuscular HGB Conc 33.3 g/dl (32-36); Mean Corpuscular Hemoglobin 30.6 pg (26-34); Mean Corpuscular Volume 91.9 fl (80-100); Mean Platelet Volume 9.9 fl (7.4-10.4); Monocytes Absolute Auto 0.6 K/mm3 (0.1-0.6); Monocytes Percent Auto 3.7 % (2.6-8.5); Neutrophils Absolute Auto 14.1 K/mm3 (1.3-6.7); Neutrophils Percent Auto 91.9 % (45.5-73.1); Nucleated Red Blood Cells Absolute Auto 0.2 K/mm3 (0.0-0.012); Platelet Count Result 100 k/mm3 (150-375); Red Blood Count 2.71 M/mm3 (4.6-6.20); Red Cell Distribution Width 17.2 % (11.5-14.5); White Blood Count 15.3 K/mm3 (4.5-10.0)
[2022-07-08 16:45] LABS: Platelet Estimate Decreased (Adequate)
[2022-07-08] MEDS: SODIUM CHLORIDE 1 GM TABLET PO (16:45)
[2022-07-08] MEDS: POTASSIUM CHLORIDE 20 MEQ TABLET 40 MEQ PO (16:45)
[2022-07-08 16:46] LABS: Ovalocytes 1+ (NORMAL); Schistocytes None Seen (NORMAL)
[2022-07-08 16:47] LABS: Creatine Kinase 1119 U/L (55-170)
[2022-07-08] MEDS: HYDROmorphone HCL INJ (*CRX) 1 MG/ML SYR 0.5 MG IV PUSH (20:34)
[2022-07-08 21:23] LABS: Osmolality, Urine 643 mOsm/kg (50-1200)
[2022-07-08 21:39] LABS: Alpha 1 Globulin 0.3 g/dL (0.2-0.3); Alpha 2 Globulin 0.4 g/dL (0.5-0.9); Beta 1 Globulin 0.4 g/dL (0.4-0.6); Gamma Globulin 0.6 g/dL (0.8-1.7); Protein, Total 4.9 g/dL (6.1-8.1)
[2022-07-08] MEDS: HYDROcodone/acetaminophen (*CRX) 5-325 MG TABLET 1 TAB PO (23:40)
[2022-07-09] VITALS (24 sets, daily range): BP systolic 114–129; BP diastolic 48–67; PULSE 66–707; RESP 14–22; TEMP 36.3–37.3; O2SAT 90–100
[2022-07-09 00:28] LABS: Vancomycin Trough 6.2 ug/mL (10.0-20.0)
[2022-07-09] MEDS: ALBUTEROL SULFATE NEB 2.5 MG/3 ML INH 5 MG INHALATION ×4 (02:12→20:32)
[2022-07-09] MEDS: IPRATROPIUM BR 0.02% INH SOLN 0.5 MG/2.5 ML VIAL INHALATION ×4 (02:12→20:29)
[2022-07-09] MEDS: CEFEPIME 2 GM/NS 50 ML 2 GM/50 ML BAG IVPB ×3 (05:48→22:52)
[2022-07-09] MEDS: HYDROmorphone HCL INJ (*CRX) 1 MG/ML SYR 0.5 MG IV PUSH ×2 (05:49→10:10)
[2022-07-09] MEDS: CENTRAL LINE FLUSH 10 ML IV PUSH ×3 (05:49→22:58)
[2022-07-09 06:09] LABS: Basophils Percent Auto 0.1 % (0.2-1.2); Eosinophils Percent Auto 0.1 % (0-4.4); Hematocrit 25.3 % (42.0-52.0); Hemoglobin 8.3 g/dL (14.0-18.0); Immature Granulocyte Absolute 0.27 K/mm3 (0.00-0.031); Lymphocytes Absolute Auto 0.25 K/mm3 (0.9-3.2); Lymphocytes Percent Auto 1.8 % (18.3-44.2); Mean Corpuscular HGB Conc 32.8 g/dl (32-36); Mean Corpuscular Hemoglobin 29.6 pg (26-34); Mean Corpuscular Volume 90.4 fl (80-100); Mean Platelet Volume 10.1 fl (7.4-10.4); Monocytes Absolute Auto 0.5 K/mm3 (0.1-0.6); Monocytes Percent Auto 3.8 % (2.6-8.5); Neutrophils Absolute Auto 12.5 K/mm3 (1.3-6.7); Neutrophils Percent Auto 92.2 % (45.5-73.1); Nucleated Red Blood Cells Absolute Auto 0.1 K/mm3 (0.0-0.012); Platelet Count Result 111 k/mm3 (150-375); Red Cell Distribution Width 17.4 % (11.5-14.5); White Blood Count 13.5 K/mm3 (4.5-10.0)
[2022-07-09 06:23] LABS: Alanine Aminotransferase 38 U/L (6-50); Albumin Level 2.7 g/dL (3.5-5.1); Alkaline Phosphatase 61 U/L (38-126); Anion Gap -1 mmol/L (8-16); Aspartate Amino Transferase 52 U/L (17-59); Bilirubin,Total 1.7 mg/dL (0.2-1.3); Blood Urea Nitrogen 13 mg/dL (9-20); Calcium 7.1 mg/dL (8.4-10.2); Carbon Dioxide 36 mmol/L (22-30); Chloride 93 mmol/L (98-107); Creatine Kinase 814 U/L (55-170); Estimated CRCL calculation 120 ml/min; Estimated Glomerular Filt Rate > 60; Glucose 85 mg/dL (65-110); Potassium 3.1 mmol/L (3.4-5.0); Sodium 128 mmol/L (137-145)
[2022-07-09 06:58] LABS: Anisocytosis 1+ (NORMAL); Polychromasia 1+ (NORMAL); Schistocytes None Seen (NORMAL)
[2022-07-09] MEDS: FLUTICASONE/UMECLIDIN/VILANTER 100-62.5-25 MCG ELLIPTA 1 PUFF INHALATION (07:49)
[2022-07-09 08:20] LABS: Reference Lab Test Result 5.6
[2022-07-09 10:05] LABS: Kappa\\Lambda Light Chains 0.92 (0.26-1.65); Lambda Light Chain 7.6 mg/L (5.7-26.3)
[2022-07-09] MEDS: PANTOPRAZOLE SODIUM IV 40 MG VIAL IV PUSH ×2 (10:15→20:12)
[2022-07-09] MEDS: SILVERGEL (ELTA) 45 ML 1 APPLIC TOPICAL (10:20)
--- NOTE | 2022-07-09 10:32 | P.PNNP_ITS ---
Progress Note: A&P Assessment and Plan (1) Hyponatremia: Code(s): E87.1 - Hypo-osmolality and hyponatremia Status: Acute Assessment and Plan: * better/improving at this time * acute on chronic issue * baseline sodium seems to run around 129 - 134 at best * worsening noted during this hospitalization * multiple risk factors for hyponatremia: * pneumonia * lung disease (COPD) * SSRI use (lexapro) * PPI use (nexium) * pain (from recent fall/trauma/fractures) And narcotics * hypothyroidism (restarted treatment on this admission) * cSPEP. UPEP, serum/urine osmo pending * urine electrolytes not prerenal * hold off on checking cortisol - already on steroids * on salt tablets already and he is NPO because of swallowing. * follow trend of repeat sodium levels (2) Acute respiratory failure with hypoxemia: Code(s): J96.01 - Acute respiratory failure with hypoxia Status: Acute Assessment and Plan: * as evidence by events overnight * imaging consistent (CXR and CT scan) with fluid/volume overload +/- pneumonia * IV diuresis as tolerated * on antibiotics * follow respiratory status (3) Rhabdomyolysis: Code(s): M62.82 - Rhabdomyolysis Status: Acute Assessment and Plan: * CPK quite elevated on admission * holding IVF hydration due to #2 * CPK still mildly elevated . Way below the level where it usually involves the kidneys. CK has dropped 814 * follow/trend CPK levels (4) Anemia: Code(s): D64.9 - Anemia, unspecified Status: Acute Assessment and Plan: * significant drop in H/H previously * s/p PRBC transfusion * GI loss versus due to trauma? * hemoglobin 8.3, same as yesterday. (5) Pneumonia: Code(s): J18.9 - Pneumonia, unspecified organism Status: Acute Assessment and Plan: * as noted by admission imaging * on antibiotics * Blood cultures no growth today. Sputum shows yeast (6) COPD (chronic obstructive pulmonary disease): Qualifiers: COPD type: unspecified COPD Qualified Code(s): J44.9 - Chronic obstructive pulmonary disease, unspecified Code(s): J44.9 - Chronic obstructive pulmonary disease, unspecified Status: Acute Assessment and Plan: * exacerbated by #5 * on nebulizer treatments, steroids, supplemental oxygen * continues supportive therapy (7) Closed fracture of right proximal humerus: Qualifiers: Encounter type: subsequent encounter Fracture morphology: other fracture Fracture alignment: displaced Code(s): S42.201A - Unspecified fracture of upper end of right humerus, initial encounter for closed fracture Status: Acute Assessment and Plan: * displaced right proximal humerus fracture as noted by imaging * Orthopedics following * possible surgical intervention once medically optimized * sodium level is relatively stable in the high 120s and low 130s. Okay for surgery Will continue to follow. Subjective Date/time seen: 07/09/22 10:32 Interval history: Patient is feeling about the same. Coughing with posterior pharyngeal secretions. NPO and speech therapy is going to evaluate him. Exam Narrative: General: ill appearing male in NAD, on/off BIPAP Heart: normal S1 and S2; no rub or gallop Lungs: coarse breath sounds Abdomen: soft, nontender, nondistended, positive bowel sounds Extremities: no cyanosis or clubbing; no edema; right sling in place S
--- NOTE | 2022-07-09 10:32 | PM.PNNEP ---
Progress Note: A&P Assessment and Plan (1) Hyponatremia: Code(s): E87.1 - Hypo-osmolality and hyponatremia Status: Acute Assessment and Plan: better/improving at this time acute on chronic issue baseline sodium seems to run around 129 - 134 at best worsening noted during this hospitalization multiple risk factors for hyponatremia: pneumonia lung disease (COPD) SSRI use (lexapro) PPI use (nexium) pain (from recent fall/trauma/fractures) And narcotics hypothyroidism (restarted treatment on this admission) cSPEP. UPEP, serum/urine osmo pending urine electrolytes not prerenal hold off on checking cortisol - already on steroids on salt tablets already and he is NPO because of swallowing. follow trend of repeat sodium levels (2) Acute respiratory failure with hypoxemia: Code(s): J96.01 - Acute respiratory failure with hypoxia Status: Acute Assessment and Plan: as evidence by events overnight imaging consistent (CXR and CT scan) with fluid/volume overload +/- pneumonia IV diuresis as tolerated on antibiotics follow respiratory status (3) Rhabdomyolysis: Code(s): M62.82 - Rhabdomyolysis Status: Acute Assessment and Plan: CPK quite elevated on admission holding IVF hydration due to #2 CPK still mildly elevated . Way below the level where it usually involves the kidneys. CK has dropped 814 follow/trend CPK levels (4) Anemia: Code(s): D64.9 - Anemia, unspecified Status: Acute Assessment and Plan: significant drop in H/H previously s/p PRBC transfusion GI loss versus due to trauma? hemoglobin 8.3, same as yesterday. (5) Pneumonia: Code(s): J18.9 - Pneumonia, unspecified organism Status: Acute Assessment and Plan: as noted by admission imaging on antibiotics Blood cultures no growth today. Sputum shows yeast (6) COPD (chronic obstructive pulmonary disease): Qualifiers: COPD type: unspecified COPD Qualified Code(s): J44.9 - Chronic obstructive pulmonary disease, unspecified Code(s): J44.9 - Chronic obstructive pulmonary disease, unspecified Status: Acute Assessment and Plan: exacerbated by #5 on nebulizer treatments, steroids, supplemental oxygen continues supportive therapy (7) Closed fracture of right proximal humerus: Qualifiers: Encounter type: subsequent encounter Fracture morphology: other fracture Fracture alignment: displaced Code(s): S42.201A - Unspecified fracture of upper end of right humerus, initial encounter for closed fracture Status: Acute Assessment and Plan: displaced right proximal humerus fracture as noted by imaging Orthopedics following possible surgical intervention once medically optimized sodium level is relatively stable in the high 120s and low 130s. Okay for surgery Will continue to follow. Subjective Date/time seen: 07/09/22 10:32 Interval history: Patient is feeling about the same. Coughing with posterior pharyngeal secretions. NPO and speech therapy is going to evaluate him. Exam Narrative: General: ill appearing male in NAD, on/off BIPAP Heart: normal S1 and S2; no rub or gallop Lungs: coarse breath sounds Abdomen: soft, nontender, nondistended, positive bowel sounds Extremities: no cyanosis or clubbing; no edema; right sling in place Skin: resolving ecchymoses on right chest and right upper arm. No acute rash. Objective Data Vital Signs Vital Signs: Vital Signs - 24 hr 07/08/22 11:26 07/08/22 12:11 07/08/22 12:24 Temperature 97.4 F L 97.4 F L 97.5 F L Pulse Rate 62 62 66 Respiratory Rate 20 20 20 Blood Pressure 104/56 L 104/56 L 122/59 L Pulse Oximetry 97 97 98 Oxygen Delivery Oxygen Flow Rate Fraction of Inspired Oxygen 07/08/22 12:25 07/08/22 13:10 07/08/22 13:32 Temperature 97.5 F L 98.1 F 98 F Pu
--- NOTE | 2022-07-09 11:39 | PCNFU ---
Nutrition Follow-Up Complete: Mild malnutrition related to acute illness as evidenced by poor intake, reduced functional status Goal: Improved PO intake to at least 50% meals and supplements - Progressing toward goal Pt current nutrition is Level 5 minced & moist, thickened liquids. Nutrition recommendation: Diet as ordered. Thickened Ensure Clear TID per patient request Last recorded weight is 90 kg. Bowel Motility: Last BM _1 07/07/22 Labs Reviewed: Hgb 9.5, Hct 28, Na 126, Cre 0.5 Meds Noted: Solumedrol, Protonix Skin: Skin tear arm Additional Notes: Had MBSS this morning due to increased phlegm. Results of laryngeal penetration. Placed on moderately thick liquids with minced & moist diet. Pt prefers Ensure Clear. Intakes on previous were 0-80% Monitor intakes, weights, labs, supplement tolerance, plan of care Follow up in 3 days
--- NOTE | 2022-07-09 12:04 | PCSTNOTE ---
Please refer to the Bedside Swallow Evaluation in the EMR. Please note, silent aspiration cannot be ruled out at bedside.
--- NOTE | 2022-07-09 12:04 | PCSTNOTE ---
Please refer to the Modified Barium Swallow Evaluation in the EMR.
--- NOTE | 2022-07-09 12:43 | PM.PNORT ---
Progress Note: A&P Assessment and Plan (1) Closed fracture of right proximal humerus: Qualifiers: Encounter type: subsequent encounter Fracture morphology: other fracture Fracture alignment: displaced Code(s): S42.201A - Unspecified fracture of upper end of right humerus, initial encounter for closed fracture Status: Acute Plan 71-year-old male with a closed right proximal humerus fracture. His labs seem to be trending in the right direction so I informed him surgery Tuesday may be a possibility. We will make the final decision on this tomorrow. Time Spent With Patient Time with patient: less than 15 minutes Subjective Subjective Date/Time Seen: 07/09/22 12:43 Principal diagnosis: Right proximal humerus fracture Interval history: 71-year-old who has got a right proximal humerus fracture. Continues to have significant pain in the arm. He is using the sling for comfort. Review of Systems Review of Systems: All systems reviewed & are unremarkable except as noted in HPI and below Constitutional: Constitutional: Reports as per HPI and Reports no additional constitutional complaints Musculoskeletal: Musculoskeletal: Reports as per HPI Exam Const: General: comfortable and no acute distress HENMT: Head: normal to inspection Ears: hearing grossly normal bilaterally Resp: Effort & Inspection: able to speak in complete sentences and Actively coughing productive Skin: General skin exam: ecchymosis ( right upper extremity, hematoma right lateral deltoid) Neuro: Speech: normal speech Extrem: Other: Exam of right upper extremity shows that he is using the sling for comfort. Psych: Mental Status: mental status grossly normal Objective Data Vital Signs Vital Signs: Vital Signs - 24 hr 07/08/22 13:10 07/08/22 13:32 07/08/22 14:18 Temperature 98.1 F 98 F Pulse Rate 61 62 64 Respiratory Rate 20 22 H 20 Blood Pressure 114/58 L 117/57 L Pulse Oximetry 96 97 Oxygen Delivery Oxygen Flow Rate Fraction of Inspired Oxygen 07/08/22 14:32 07/08/22 15:32 07/08/22 15:32 Temperature 97.5 F L 97.7 F 97.7 F Pulse Rate 63 64 64 Respiratory Rate 20 20 20 Blood Pressure 117/56 L 101/63 101/63 Pulse Oximetry 98 100 100 Oxygen Delivery Oxygen Flow Rate Fraction of Inspired Oxygen 07/08/22 16:32 07/08/22 14:00 07/08/22 18:00 Temperature 98 F Pulse Rate 62 62 64 Respiratory Rate 18 Blood Pressure 122/48 L Pulse Oximetry 100 Oxygen Delivery Oxygen Flow Rate Fraction of Inspired Oxygen 07/08/22 16:00 07/08/22 16:00 07/08/22 20:24 Temperature Pulse Rate 68 71 Respiratory Rate 16 Blood Pressure Pulse Oximetry 100 Oxygen Delivery Nasal Cannula Oxygen Flow Rate 2 Fraction of Inspired Oxygen 07/08/22 20:00 07/08/22 20:00 07/08/22 22:00 Temperature 99.3 F Pulse Rate 66 65 67 Respiratory Rate 20 Blood Pressure 112/54 L Pulse Oximetry 94 Oxygen Delivery Oxygen Flow Rate Fraction of Inspired Oxygen 07/09/22 00:00 07/09/22 00:00 07/08/22 20:00 Temperature 99.1 F Pulse Rate 68 66 Respiratory Rate 22 H Blood Pressure 114/67 Pulse Oximetry 90 98 Oxygen Delivery Nasal Cannula Oxygen Flow Rate 2 Fraction of Inspired Oxygen 07/09/22 00:00 07/09/22 02:13 07/09/22 02:14 Temperature Pulse Rate 73 72 Respiratory Rate 14 Blood Pressure Pulse Oximetry 99 95 Oxygen Delivery Nasal Cannula Nasal Cannula Oxygen Flow Rate 2 2 Fraction of Inspired Oxygen 07/09/22 02:00 07/09/22 04:00 07/09/22 04:00 Temperature Pulse Rate 66 70 Respiratory Rate Blood Pressure Pulse Oximetry 99 Oxygen Delivery Nasal Cannula Oxygen Flow Rate 2 Fraction of Inspired Oxygen 07/09/22 04:00 07/09/22 06:00 07/09/22 07:27 Temperature 99 F Pulse Rate 707 H 68 75 Respiratory Rate 20 18 Blood Pressure 121/48 L Pulse Oximetry 100 92 Oxygen Delivery Nasal Cannula Ox
--- NOTE | 2022-07-09 12:46 | PM.IMPN ---
Progress Note: A&P Assessment and Plan (1) Acute respiratory failure with hypoxemia: Code(s): J96.01 - Acute respiratory failure with hypoxia Status: Acute (2) Closed fracture of right proximal humerus: Qualifiers: Encounter type: subsequent encounter Fracture alignment: displaced Fracture morphology: other fracture Code(s): S42.201A - Unspecified fracture of upper end of right humerus, initial encounter for closed fracture Status: Acute (3) Rhabdomyolysis: Code(s): M62.82 - Rhabdomyolysis Status: Acute (4) Pneumonia: Code(s): J18.9 - Pneumonia, unspecified organism Status: Acute Plan 71-year-old male patient who has a history of having multiple falls.? The patient was seen in the emergency room on 06/23/2022 when he fell in the parking lot at [employer] landed on his right shoulder. Patient presented again on 07/01/22 after being found down, found to have rhabdomyolysis. 1)Rhabdomyolysis: Essentially resolved, down to 814 today Renal Function WNL 2)Hyponatremia: Renal Consult appreciated On sodium chloride tabs 1g TID relatively stable, baseline 129-134 3)MSSA Bacteremia vs contaminant: 05/05 bld cx positive to MSSA Abx noted below Monitor repeat blood cultures Leuk improving MRSA cx negative 4)?Aspiration PNA with h/o COPD: Weaned off BIPAP, down to 2L nc Worsened resp failure 07/06, concerning for HAP, broadened abx to vanc + cefepime, now improving C/w bronchodilators De-escalate steroids, completed 7 day course 07/07/22, do not suspect COPD exac at this time Yeast isolated in sputum, ?colonization/contaminant, species identification pending, hold off on treatment at this time unless patient acutely decompensates 5)Right Humerus Fracture: Appreciate Ortho help Up to chair, in sling Plan is for OR on Tuesday if patient stable 6)Acute Anemia: ?Etiology, could be retroperitoneal bleed versus bleeding into the shoulder joint versus? CT abdomen/pelvis remarkable for anasarca, no source of bleeding noted s/p 4 units, now low again, another 2 units ordered, recheck pending FOBT negative Hold ASA, hep SQ Appreciate hem/onc consult stable today at 8.3 3/10 7)Acute Encephalopathy: Resolved 8) Hypocalcemia: Resolved 9) Hypokalemia: replace and recheck 10)DVT ppx:SCD 11)Code:Full 12)Dispo:pending improvement, critically ill Subjective Date/time seen: 07/09/22 12:46 Interval history: Patient weaned to 2 L nasal cannula. No overnight events noted. No chest pain or shortness of breath. No nausea, vomiting or diarrhea. No fevers or chills. Still with shoulder pain, improved, sitting up in chair with sling. Review of Systems Review of Systems: 12 point review of systems was assessed and was negative except as noted in the HPI Exam Narrative: General: No acute distress, alert and oriented per baseline, up to chair, eating HEENT: Atraumatic, normocephalic, mucous membranes dry CV: Regular rate and rhythm, S1, S2 Lungs: Good air entry, no wheezes or rhonchi noted, somewhat diminished at bases Abdomen: Soft, nontender, nondistended Extremities: Significant bruising noted over right upper extremity, bandaged, in sling Psych: Euthymic, appropriate affect Objective Data Vital Signs Vital Signs: Vital Signs - 24 hr 07/08/22 13:10 07/08/22 13:32 07/08/22 14:18 Temperature 98.1 F 98 F Pulse Rate 61 62 64 Respiratory Rate 20 22 H 20 Blood Pressure 114/58 L 117/57 L Pulse Oximetry 96 97 Oxygen Delivery Oxygen Flow Rate Fraction of Inspired Oxygen 07/08/22 14:32 07/08/22 15:32 07/08/22 15:32 Temperature 97.5 F L 97.7 F 97.7 F Pulse Rate 63 64 64 Respiratory Rate 20 20 20 Blood Pressure 117/56 L 101/63 101/63 Pulse Oximetry 98 100 100 Oxygen Delivery Oxygen Flow Rate Fraction of Inspired Oxygen 07/08/22 16:32 07/08/22 14:00 07/08/22 18:00 Temperature 98 F Pulse Rate 62 62 64 Respirat
[2022-07-09] MEDS: SODIUM CHLORIDE 1 GM TABLET PO ×2 (13:06→17:25)
[2022-07-09] MEDS: HYDROcodone/acetaminophen (*CRX) 5-325 MG TABLET 1 TAB PO ×2 (13:07→19:49)
[2022-07-09] MEDS: BACLOFEN 10 MG TABLET PO (13:07)
[2022-07-09] MEDS: SIMVASTATIN 20 MG TABLET PO (13:07)
[2022-07-09] MEDS: RANOLAZINE 500 MG TAB.ER.12H PO ×2 (13:08→20:13)
[2022-07-09] MEDS: POTASSIUM CHLORIDE INJ 40 MEQ in SODIUM CHLORIDE 0.9% IV 500 ML 130 MEQ IVPB (14:18)
[2022-07-09] MEDS: ESCITALOPRAM OXALATE 10 MG TABLET 20 MG PO (20:12)
[2022-07-10] VITALS (25 sets, daily range): BP systolic 122–150; BP diastolic 49–80; PULSE 65–78; RESP 18–24; TEMP 36.1–37; O2SAT 95–98
[2022-07-10 01:27] LABS: Vancomycin Trough 18.6 ug/mL (10.0-20.0)
[2022-07-10] MEDS: ALBUTEROL SULFATE NEB 2.5 MG/3 ML INH 5 MG INHALATION ×4 (01:37→21:09)
[2022-07-10 04:43] LABS: Basophils Percent Auto 0.2 % (0.2-1.2); Eosinophils Absolute Auto 0.1 K/mm3 (0-0.3); Eosinophils Percent Auto 1.2 % (0-4.4); Hematocrit 25.2 % (42.0-52.0); Hemoglobin 8.4 g/dL (14.0-18.0); Immature Granulocyte Absolute 0.19 K/mm3 (0.00-0.031); Immature Granulocyte Percent A 1.7 % (0-0.5); Lymphocytes Absolute Auto 0.22 K/mm3 (0.9-3.2); Lymphocytes Percent Auto 1.9 % (18.3-44.2); Mean Corpuscular HGB Conc 33.3 g/dl (32-36); Mean Corpuscular Hemoglobin 30.5 pg (26-34); Mean Corpuscular Volume 91.6 fl (80-100); Monocytes Absolute Auto 0.4 K/mm3 (0.1-0.6); Monocytes Percent Auto 3.4 % (2.6-8.5); Neutrophils Absolute Auto 10.4 K/mm3 (1.3-6.7); Neutrophils Percent Auto 91.6 % (45.5-73.1); Nucleated Red Blood Cells Absolute Auto 0.1 K/mm3 (0.0-0.012); Nucleated Red Blood Cells Perc 0.4 % (0.0-0.2); Platelet Count Result 111 k/mm3 (150-375); Red Blood Count 2.75 M/mm3 (4.6-6.20); Red Cell Distribution Width 18.2 % (11.5-14.5); White Blood Count 11.3 K/mm3 (4.5-10.0)
[2022-07-10 04:56] LABS: Alanine Aminotransferase 34 U/L (6-50); Albumin Level 2.7 g/dL (3.5-5.1); Alkaline Phosphatase 59 U/L (38-126); Anion Gap -2 mmol/L (8-16); Aspartate Amino Transferase 43 U/L (17-59); Bilirubin,Total 1.7 mg/dL (0.2-1.3); Blood Urea Nitrogen 10 mg/dL (9-20); Calcium 7.3 mg/dL (8.4-10.2); Carbon Dioxide 37 mmol/L (22-30); Chloride 92 mmol/L (98-107); Creatine Kinase 509 U/L (55-170); Estimated CRCL calculation 120 ml/min; Estimated Glomerular Filt Rate > 60; Glucose 132 mg/dL (65-110); Potassium 3.1 mmol/L (3.4-5.0); Sodium 127 mmol/L (137-145)
[2022-07-10] MEDS: CEFEPIME 2 GM/NS 50 ML 2 GM/50 ML BAG IVPB ×3 (05:12→21:01)
[2022-07-10] MEDS: CENTRAL LINE FLUSH 10 ML IV PUSH ×3 (05:13→20:39)
[2022-07-10] MEDS: LEVOTHYROXINE SODIUM 150 MCG TABLET PO (05:48)
[2022-07-10] MEDS: FLUTICASONE/UMECLIDIN/VILANTER 100-62.5-25 MCG ELLIPTA 1 PUFF INHALATION (08:22)
[2022-07-10] MEDS: IPRATROPIUM BR 0.02% INH SOLN 0.5 MG/2.5 ML VIAL INHALATION ×3 (08:22→21:08)
[2022-07-10] MEDS: SODIUM CHLORIDE 1 GM TABLET PO ×3 (09:52→17:29)
[2022-07-10] MEDS: RANOLAZINE 500 MG TAB.ER.12H PO ×2 (09:52→20:38)
[2022-07-10] MEDS: SIMVASTATIN 20 MG TABLET PO (09:52)
[2022-07-10] MEDS: PANTOPRAZOLE SODIUM IV 40 MG VIAL IV PUSH ×2 (09:53→20:40)
[2022-07-10] MEDS: SILVERGEL (ELTA) 45 ML 1 APPLIC TOPICAL (09:54)
--- NOTE | 2022-07-10 11:01 | P.PNNP_ITS ---
Progress Note: A&P Assessment and Plan (1) Hyponatremia: Code(s): E87.1 - Hypo-osmolality and hyponatremia Status: Acute Assessment and Plan: * better/improving at this time * acute on chronic issue * baseline sodium seems to run around 129 - 134 at best * multiple risk factors for hyponatremia: * pneumonia * lung disease (COPD) * SSRI use (lexapro) * PPI use (nexium) * pain (from recent fall/trauma/fractures) And narcotics * hypothyroidism (restarted treatment on this admission) * Serum osmolality similar to calculated. 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 * He is on thickened liquid and so free water intake is fairly low. * sodium is stable. * Okay for surgery from the sodium standpoint. (2) Acute respiratory failure with hypoxemia: Code(s): J96.01 - Acute respiratory failure with hypoxia Status: Acute Assessment and Plan: * as evidence by events overnight * imaging consistent (CXR and CT scan) with fluid/volume overload +/- pneumonia * On no diuretics right now. * on antibiotics * He looks better today. (3) Rhabdomyolysis: Code(s): M62.82 - Rhabdomyolysis Status: Acute Assessment and Plan: * CPK quite elevated on admission * holding IVF hydration due to #2 * CPK still mildly elevated . Way below the level where it usually involves the kidneys. CK has dropped Five hundred nine * check a level tomorrow (4) Anemia: Code(s): D64.9 - Anemia, unspecified Status: Acute Assessment and Plan: * significant drop in H/H previously * s/p PRBC transfusion * GI loss versus due to trauma? * hemoglobin stable the last 3 days (5) Pneumonia: Code(s): J18.9 - Pneumonia, unspecified organism Status: Acute Assessment and Plan: * as noted by admission imaging * on antibiotics * Blood cultures no growth to date. Sputum shows yeast (6) COPD (chronic obstructive pulmonary disease): Qualifiers: COPD type: unspecified COPD Qualified Code(s): J44.9 - Chronic obstructive pulmonary disease, unspecified Code(s): J44.9 - Chronic obstructive pulmonary disease, unspecified Status: Acute Assessment and Plan: * exacerbated by #5 * on nebulizer treatments, steroids, supplemental oxygen * continues supportive therapy (7) Closed fracture of right proximal humerus: Qualifiers: Encounter type: subsequent encounter Fracture morphology: other fracture Fracture alignment: displaced Code(s): S42.201A - Unspecified fracture of upper end of right humerus, initial encounter for closed fracture Status: Acute Assessment and Plan: * displaced right proximal humerus fracture as noted by imaging * Orthopedics following * possible surgical intervention once medically optimized * sodium level is relatively stable in the high 120s and low 130s. Okay for surgery Will continue to follow. Subjective Date/time seen: 07/10/22 11:01 Interval history: Patient is feeling about the same. Coughing with posterior pharyngeal secretions. he is on thickened liquids now. Exam Narrative: General: Well-developed well-nourished male NAD Heart: normal S1 and S2; no rub or gallop Lungs: coarse breath sounds bilaterally but better than yesterday
--- NOTE | 2022-07-10 11:01 | PM.PNNEP ---
Progress Note: A&P Assessment and Plan (1) Hyponatremia: Code(s): E87.1 - Hypo-osmolality and hyponatremia Status: Acute Assessment and Plan: better/improving at this time acute on chronic issue baseline sodium seems to run around 129 - 134 at best multiple risk factors for hyponatremia: pneumonia lung disease (COPD) SSRI use (lexapro) PPI use (nexium) pain (from recent fall/trauma/fractures) And narcotics hypothyroidism (restarted treatment on this admission) Serum osmolality similar to calculated. 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 He is on thickened liquid and so free water intake is fairly low. sodium is stable. Okay for surgery from the sodium standpoint. (2) Acute respiratory failure with hypoxemia: Code(s): J96.01 - Acute respiratory failure with hypoxia Status: Acute Assessment and Plan: as evidence by events overnight imaging consistent (CXR and CT scan) with fluid/volume overload +/- pneumonia On no diuretics right now. on antibiotics He looks better today. (3) Rhabdomyolysis: Code(s): M62.82 - Rhabdomyolysis Status: Acute Assessment and Plan: CPK quite elevated on admission holding IVF hydration due to #2 CPK still mildly elevated . Way below the level where it usually involves the kidneys. CK has dropped Five hundred nine check a level tomorrow (4) Anemia: Code(s): D64.9 - Anemia, unspecified Status: Acute Assessment and Plan: significant drop in H/H previously s/p PRBC transfusion GI loss versus due to trauma? hemoglobin stable the last 3 days (5) Pneumonia: Code(s): J18.9 - Pneumonia, unspecified organism Status: Acute Assessment and Plan: as noted by admission imaging on antibiotics Blood cultures no growth to date. Sputum shows yeast (6) COPD (chronic obstructive pulmonary disease): Qualifiers: COPD type: unspecified COPD Qualified Code(s): J44.9 - Chronic obstructive pulmonary disease, unspecified Code(s): J44.9 - Chronic obstructive pulmonary disease, unspecified Status: Acute Assessment and Plan: exacerbated by #5 on nebulizer treatments, steroids, supplemental oxygen continues supportive therapy (7) Closed fracture of right proximal humerus: Qualifiers: Encounter type: subsequent encounter Fracture morphology: other fracture Fracture alignment: displaced Code(s): S42.201A - Unspecified fracture of upper end of right humerus, initial encounter for closed fracture Status: Acute Assessment and Plan: displaced right proximal humerus fracture as noted by imaging Orthopedics following possible surgical intervention once medically optimized sodium level is relatively stable in the high 120s and low 130s. Okay for surgery Will continue to follow. Subjective Date/time seen: 07/10/22 11:01 Interval history: Patient is feeling about the same. Coughing with posterior pharyngeal secretions. he is on thickened liquids now. Exam Narrative: General: Well-developed well-nourished male NAD Heart: normal S1 and S2; no rub or gallop Lungs: coarse breath sounds bilaterally but better than yesterday. Abdomen: soft, nontender, nondistended, positive bowel sounds Extremities: no cyanosis or clubbing; no edema; right sling in place Skin: resolving ecchymoses on right chest and right upper arm. No acute rash. Objective Data Vital Signs Vital Signs: Vital Signs - 24 hr 07/09/22 11:59 07/09/22 12:00 07/09/22 13:39 Temperature 97.4 F L Pulse Rate 70 69 76 Respiratory Rate 20 20 Blood Pressure 118/58 L Pulse Oximetry 100 Oxygen Delivery Oxygen Flow Rate 07/09/22 14:00
--- NOTE | 2022-07-10 11:15 | PM.IMPN ---
Progress Note: A&P Assessment and Plan (1) Acute respiratory failure with hypoxemia: Code(s): J96.01 - Acute respiratory failure with hypoxia Status: Acute (2) Closed fracture of right proximal humerus: Qualifiers: Encounter type: subsequent encounter Fracture alignment: displaced Fracture morphology: other fracture Code(s): S42.201A - Unspecified fracture of upper end of right humerus, initial encounter for closed fracture Status: Acute (3) Rhabdomyolysis: Code(s): M62.82 - Rhabdomyolysis Status: Acute (4) Pneumonia: Code(s): J18.9 - Pneumonia, unspecified organism Status: Acute Plan 71-year-old male patient who has a history of having multiple falls.? The patient was seen in the emergency room on 06/23/2022 when he fell in the parking lot at [employer] landed on his right shoulder. Patient presented again on 07/01/22 after being found down, found to have rhabdomyolysis. Rhabdomyolysis: Resolved Renal Function WNL Hyponatremia: Renal Consult appreciated On sodium chloride tabs 1g TID slowly dropping, down to 127 today, baseline 129-134 MSSA Bacteremia vs contaminant: 05/05 bld cx positive to MSSA Abx noted below Monitor repeat blood cultures Leuk cont to improve MRSA cx negative ?Aspiration PNA with h/o COPD: Weaned off BIPAP, down to 2L nc Worsened resp failure 07/06, concerning for HAP, broadened abx to vanc + cefepime, now improving C/w bronchodilators De-escalate steroids, completed 7 day course 07/07/22, do not suspect COPD exac at this time Yeast isolated in sputum, ?colonization/contaminant, species identification pending, hold off on treatment at this time unless patient acutely decompensates Right Humerus Fracture: Appreciate Ortho help Up to chair, in sling Plan is for OR on Tuesday if patient stable Acute Anemia: ?Etiology, could be retroperitoneal bleed versus bleeding into the shoulder joint versus? CT abdomen/pelvis remarkable for anasarca, no source of bleeding noted s/p 4 units, now low again, another 2 units ordered, recheck pending FOBT negative Hold ASA, hep SQ Appreciate hem/onc consult stable today at 8.4 07/10 Hypertension BP reviewed 07/10, cont to monitor, slightly elevated Acute Encephalopathy: Resolved Hypocalcemia: Resolved Hypokalemia: replace and recheck DVT ppx:SCD Code:Full Dispo:pending improvement Subjective Date/time seen: 07/10/22 11:15 Interval history: Patient weaned to 2 L nasal cannula. No overnight events noted. No chest pain or shortness of breath. No nausea, vomiting or diarrhea. No fevers or chills. Shoulder pain continues, somewhat improved since yesterday. He is eager to go to the OR on Tuesday. Review of Systems Review of Systems: 12 point review of systems was assessed and was negative except as noted in the HPI Exam Narrative: General: No acute distress, alert and oriented per baseline, up to chair, eating HEENT: Atraumatic, normocephalic, mucous membranes dry CV: Regular rate and rhythm, S1, S2 Lungs: Good air entry, no wheezes or rhonchi noted, somewhat diminished at bases Abdomen: Soft, nontender, nondistended Extremities: Significant bruising noted over right upper extremity, bandaged, in sling, sitting up in bed Psych: Euthymic, appropriate affect Objective Data Vital Signs Vital Signs: Vital Signs - 24 hr 07/09/22 11:59 07/09/22 12:00 07/09/22 13:39 Temperature 97.4 F L Pulse Rate 70 69 76 Respiratory Rate 20 20 Blood Pressure 118/58 L Pulse Oximetry 100 Oxygen Delivery Oxygen Flow Rate 07/09/22 14:00 07/09/22 16:17 07/09/22 12:00 Temperature 98.1 F Pulse Rate 77 71 Respiratory Rate 20 20 Blood Pressure 129/62 Pulse Oximetry 93 99 Oxygen Delivery Nasal Cannula Oxygen Flow Rate 2 07/09/22 14:00 07/09/22 16:00 07/09/22 15:15 Temperature Pulse Rate 70 72 Respiratory Rate Blood Pressure Pulse Oxim
[2022-07-10] MEDS: SCOPOLAMINE 1.5 MG PATCH TRANSDERM (11:28)
[2022-07-10] MEDS: HYDROcodone/acetaminophen (*CRX) 5-325 MG TABLET 1 TAB PO ×2 (11:29→17:28)
--- NOTE | 2022-07-10 12:57 | PM.PNORT ---
Progress Note: A&P Assessment and Plan (1) Closed fracture of right proximal humerus: Qualifiers: Encounter type: subsequent encounter Fracture morphology: other fracture Fracture alignment: displaced Code(s): S42.201A - Unspecified fracture of upper end of right humerus, initial encounter for closed fracture Status: Acute Plan 71-year-old male with subacute right proximal humerus fracture. From medical standpoint he has improved considerably over the past several days. At this point we are planning on ORIF right proximal humerus fracture on Tuesday the . Risks and potential complications were discussed in detail and questions answered previously. With his pre surgical course I fully expect that he is going to have issues postop and we will do our best to keep him moving forward. Plan on NPO after midnight tomorrow night. Order submitted for consent. Subjective Subjective Date/Time Seen: 07/10/22 12:57 Principal diagnosis: Dx: Interval history: Right proximal humerus fracture. Medical status has improved considerably. He noted that when he saw his outside orthopedist after his original fall the plan was to let this heal which I agree with however with the new fall he has had significant displacement of the fracture so that changes the plan. Stabilization of the humerus will make it easier to care for him and for him to care for himself. He understands this. Exam Narrative: Mr. Bergeron is doing much better. Answers questions appropriately. Is still a little rattly but is able to clear the secretions with a cough. Right shoulder extensively bruised. He has pain in the upper portion of the humerus which is flail at this point. Appears to have intact motor function right upper extremity but exam obviously limited. Objective Data Vital Signs Vital Signs: Vital Signs - 24 hr 07/09/22 13:39 07/09/22 14:00 07/09/22 16:17 Temperature 98.1 F Pulse Rate 76 77 71 Respiratory Rate 20 20 20 Blood Pressure 129/62 Pulse Oximetry 93 Oxygen Delivery Oxygen Flow Rate 07/09/22 14:00 07/09/22 16:00 07/09/22 15:15 Temperature Pulse Rate 70 72 Respiratory Rate Blood Pressure Pulse Oximetry 99 Oxygen Delivery Nasal Cannula Oxygen Flow Rate 2 07/09/22 18:00 07/09/22 20:32 07/09/22 20:00 Temperature 97.9 F Pulse Rate 87 71 Respiratory Rate 20 Blood Pressure 126/62 Pulse Oximetry 99 98 Oxygen Delivery Nasal Cannula Oxygen Flow Rate 2 07/09/22 20:00 07/09/22 20:00 07/09/22 22:00 Temperature Pulse Rate 73 67 Respiratory Rate Blood Pressure Pulse Oximetry 98 Oxygen Delivery Nasal Cannula Oxygen Flow Rate 2 07/10/22 00:00 07/10/22 00:00 07/10/22 00:00 Temperature 98.5 F Pulse Rate 66 71 Respiratory Rate 20 Blood Pressure 122/66 Pulse Oximetry 97 97 Oxygen Delivery Nasal Cannula Oxygen Flow Rate 2 07/09/22 20:30 07/09/22 20:42 07/10/22 01:40 Temperature Pulse Rate 66 69 65 Respiratory Rate 20 20 20 Blood Pressure Pulse Oximetry Oxygen Delivery Oxygen Flow Rate 07/10/22 02:00 07/10/22 04:00 07/10/22 04:00 Temperature 98.6 F Pulse Rate 68 69 Respiratory Rate 18 Blood Pressure 144/62 H Pulse Oximetry 95 95 Oxygen Delivery Nasal Cannula Oxygen Flow Rate 2 07/10/22 04:00 07/10/22 06:00 07/10/22 01:52 Temperature Pulse Rate 69 69 69 Respiratory Rate 20 Blood Pressure Pulse Oximetry Oxygen Delivery Oxygen Flow Rate 07/10/22 08:11 07/10/22 08:25 07/10/22 08:25 Temperature 97.0 F L Pulse Rate 70 74 74 Respiratory Rate 20 18 20 Blood Pressure 150/49 H Pulse Oximetry 96 95 Oxygen Delivery Nasal Cannula Oxygen Flow Rate 2 07/10/22 08:47 07/10/22 08:00 07/10/22 10:00 Temperature Pulse Rate 75 73 73 Respiratory Rate 20 Blood Pressure Pulse Oximetry Oxygen Delivery Oxygen Flow Rate 07/10/22 08:00 03
[2022-07-10 15:18] LABS: Chloride Rand Ur 73 mmol/L (32-290); Chloride/Creatinine Rand Ur 135 (23-275); Creatinine Random Urine 54 mg/dL (20-320)
[2022-07-10] MEDS: POTASSIUM CHLORIDE INJ 40 MEQ in SODIUM CHLORIDE 0.9% IV 500 ML 130 MEQ IVPB (17:28)
[2022-07-10] MEDS: POTASSIUM CHLORIDE 20 MEQ TABLET 40 MEQ PO (17:29)
[2022-07-10] MEDS: ESCITALOPRAM OXALATE 10 MG TABLET 20 MG PO (20:38)
[2022-07-10 21:42] LABS: Creatinine, Random Urine 60 mg/dL (20-320); Total Protein/Creatinine Ratio 267 mg/g creat (25-148)
[2022-07-11] VITALS (23 sets, daily range): BP systolic 129–152; BP diastolic 60–85; PULSE 68–100; RESP 14–24; TEMP 36.5–36.9; O2SAT 90–100
[2022-07-11] MEDS: HYDROcodone/acetaminophen (*CRX) 5-325 MG TABLET 1 TAB PO ×2 (01:11→10:51)
[2022-07-11] MEDS: IPRATROPIUM BR 0.02% INH SOLN 0.5 MG/2.5 ML VIAL INHALATION ×3 (03:39→14:29)
[2022-07-11] MEDS: ALBUTEROL SULFATE NEB 2.5 MG/3 ML INH 5 MG INHALATION ×3 (03:40→14:32)
--- NOTE | 2022-07-11 05:10 | PC.NURSE ---
Daylight Savings Time For Daylight Savings Time Ending in the Fall - Clocks are moved back. For Daylight Savings Time Beginning in the Spring - Clocks are moved ahead. For [facility], the time of change occurs at 0200 hrs. Time is taken from the linux server administrator. This entry on the patient's chart recognizes the change in time reflected during documentation. Example: 2 entries for vital signs may be charted for 0200 hrs.
[2022-07-11] MEDS: LEVOTHYROXINE SODIUM 150 MCG TABLET PO (06:03)
[2022-07-11] MEDS: CEFEPIME 2 GM/NS 50 ML 2 GM/50 ML BAG IVPB ×3 (06:03→21:00)
[2022-07-11] MEDS: CENTRAL LINE FLUSH 10 ML IV PUSH ×3 (06:04→21:00)
[2022-07-11 06:22] LABS: Basophils Percent Auto 0.1 % (0.2-1.2); Eosinophils Absolute Auto 0.2 K/mm3 (0-0.3); Eosinophils Percent Auto 1.9 % (0-4.4); Hematocrit 24.9 % (42.0-52.0); Hemoglobin 8.1 g/dL (14.0-18.0); Immature Granulocyte Percent A 2.4 % (0-0.5); Lymphocytes Absolute Auto 0.26 K/mm3 (0.9-3.2); Lymphocytes Percent Auto 3.1 % (18.3-44.2); Mean Corpuscular HGB Conc 32.5 g/dl (32-36); Mean Corpuscular Hemoglobin 30.5 pg (26-34); Mean Corpuscular Volume 93.6 fl (80-100); Mean Platelet Volume 9.6 fl (7.4-10.4); Monocytes Absolute Auto 0.4 K/mm3 (0.1-0.6); Monocytes Percent Auto 4.8 % (2.6-8.5); Neutrophils Absolute Auto 7.3 K/mm3 (1.3-6.7); Neutrophils Percent Auto 87.7 % (45.5-73.1); Nucleated Red Blood Cells Perc 0.2 % (0.0-0.2); Platelet Count Result 109 k/mm3 (150-375); Red Blood Count 2.66 M/mm3 (4.6-6.20); Red Cell Distribution Width 18.5 % (11.5-14.5); White Blood Count 8.4 K/mm3 (4.5-10.0)
[2022-07-11 06:32] LABS: Alanine Aminotransferase 35 U/L (6-50); Albumin Level 2.6 g/dL (3.5-5.1); Alkaline Phosphatase 62 U/L (38-126); Anion Gap -3 mmol/L (8-16); Aspartate Amino Transferase 47 U/L (17-59); Bilirubin,Total 1.8 mg/dL (0.2-1.3); Blood Urea Nitrogen 8 mg/dL (9-20); Calcium 7.3 mg/dL (8.4-10.2); Carbon Dioxide 37 mmol/L (22-30); Chloride 92 mmol/L (98-107); Creatine Kinase 402 U/L (55-170); Estimated CRCL calculation 146 ml/min; Estimated Glomerular Filt Rate > 60; Glucose 89 mg/dL (65-110); Potassium 3.7 mmol/L (3.4-5.0); Sodium 126 mmol/L (137-145)
[2022-07-11 07:21] LABS: Hypochromasia 1+ (NORMAL); Poikilocytosis 1+ (NORMAL)
[2022-07-11 07:22] LABS: Anisocytosis 2+ (NORMAL); Macrocytosis 1+ (NORMAL); Ovalocytes 1+ (NORMAL); Schistocytes None Seen (NORMAL)
[2022-07-11] MEDS: FLUTICASONE/UMECLIDIN/VILANTER 100-62.5-25 MCG ELLIPTA 1 PUFF INHALATION (09:19)
--- NOTE | 2022-07-11 10:17 | P.PNNP_ITS ---
Progress Note: A&P Assessment and Plan (1) Hyponatremia: Code(s): E87.1 - Hypo-osmolality and hyponatremia Status: Acute Assessment and Plan: * better/improving at this time * acute on chronic issue * baseline sodium seems to run around 129 - 134 at best * multiple risk factors for hyponatremia: * pneumonia * lung disease (COPD) * SSRI use (lexapro) * PPI use (nexium) * pain (from recent fall/trauma/fractures) And narcotics * hypothyroidism (restarted treatment on this admission) * Serum osmolality similar to calculated. Urine osmolality is high respiratory therapy assistant with SIADH.cSPEP. UPEP Are still pending * urine electrolytes not prerenal * hold off on checking cortisol - already on steroids * on salt tablets And thickened liquids. * He was getting IV fluids but these have been discontinued. * Sodium is slightly lower today than yesterday. * Will check a sodium this afternoon. Consider a tiny dose of 3% just to keep sodium stable for surgery tomorrow. (2) Acute respiratory failure with hypoxemia: Code(s): J96.01 - Acute respiratory failure with hypoxia Status: Acute Assessment and Plan: * Improved. He is on 2L of oxygen. (3) Rhabdomyolysis: Code(s): M62.82 - Rhabdomyolysis Status: Acute Assessment and Plan: * CPK quite elevated on admission * holding IVF hydration due to #2 * CPK still mildly elevated . Way below the level where it usually involves the kidneys. CK has dropped Five hundred nine * check a level tomorrow (4) Anemia: Code(s): D64.9 - Anemia, unspecified Status: Acute Assessment and Plan: * significant drop in H/H previously * Hemoglobin has been in the low 8s for 4 days in a row. (5) Pneumonia: Code(s): J18.9 - Pneumonia, unspecified organism Status: Acute Assessment and Plan: * as noted by admission imaging * on antibiotics * Blood cultures no growth to date. Sputum shows yeast (6) COPD (chronic obstructive pulmonary disease): Qualifiers: COPD type: unspecified COPD Qualified Code(s): J44.9 - Chronic obstructive pulmonary disease, unspecified Code(s): J44.9 - Chronic obstructive pulmonary disease, unspecified Status: Acute Assessment and Plan: * exacerbated by #5 * on nebulizer treatments, steroids, supplemental oxygen * continues supportive therapy (7) Closed fracture of right proximal humerus: Qualifiers: Encounter type: subsequent encounter Fracture morphology: other fracture Fracture alignment: displaced Code(s): S42.201A - Unspecified fracture of upper end of right humerus, initial encounter for closed fracture Status: Acute Assessment and Plan: * displaced right proximal humerus fracture as noted by imaging * Orthopedics following * possible surgical intervention once medically optimized * sodium level is relatively stable in the high 120s and low 130s. Okay for surgery Subjective Date/time seen: 07/11/22 10:17 Interval history: Patient is feeling about the same. Getting a breathing treatment. Voice seems stronger.. he is on thickened liquids now. Exam Narrative: General: Well-developed well-nourished male NAD Heart: normal S1 and S2; no rub or gallop Lungs: Clear than yesterday. Abdomen: soft, nontender, nondistended, positive bowel sounds Extremities: no cyanosis or clubbing; no edema; right sling in place Ski
--- NOTE | 2022-07-11 10:17 | PM.PNNEP ---
Progress Note: A&P Assessment and Plan (1) Hyponatremia: Code(s): E87.1 - Hypo-osmolality and hyponatremia Status: Acute Assessment and Plan: better/improving at this time acute on chronic issue baseline sodium seems to run around 129 - 134 at best multiple risk factors for hyponatremia: pneumonia lung disease (COPD) SSRI use (lexapro) PPI use (nexium) pain (from recent fall/trauma/fractures) And narcotics hypothyroidism (restarted treatment on this admission) Serum osmolality similar to calculated. 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 UPEP Are still pending urine electrolytes not prerenal hold off on checking cortisol - already on steroids on salt tablets And thickened liquids. He was getting IV fluids but these have been discontinued. Sodium is slightly lower today than yesterday. Will check a sodium this afternoon. Consider a tiny dose of 3% just to keep sodium stable for surgery tomorrow. (2) Acute respiratory failure with hypoxemia: Code(s): J96.01 - Acute respiratory failure with hypoxia Status: Acute Assessment and Plan: Improved. He is on 2L of oxygen. (3) Rhabdomyolysis: Code(s): M62.82 - Rhabdomyolysis Status: Acute Assessment and Plan: CPK quite elevated on admission holding IVF hydration due to #2 CPK still mildly elevated . Way below the level where it usually involves the kidneys. CK has dropped Five hundred nine check a level tomorrow (4) Anemia: Code(s): D64.9 - Anemia, unspecified Status: Acute Assessment and Plan: significant drop in H/H previously Hemoglobin has been in the low 8s for 4 days in a row. (5) Pneumonia: Code(s): J18.9 - Pneumonia, unspecified organism Status: Acute Assessment and Plan: as noted by admission imaging on antibiotics Blood cultures no growth to date. Sputum shows yeast (6) COPD (chronic obstructive pulmonary disease): Qualifiers: COPD type: unspecified COPD Qualified Code(s): J44.9 - Chronic obstructive pulmonary disease, unspecified Code(s): J44.9 - Chronic obstructive pulmonary disease, unspecified Status: Acute Assessment and Plan: exacerbated by #5 on nebulizer treatments, steroids, supplemental oxygen continues supportive therapy (7) Closed fracture of right proximal humerus: Qualifiers: Encounter type: subsequent encounter Fracture morphology: other fracture Fracture alignment: displaced Code(s): S42.201A - Unspecified fracture of upper end of right humerus, initial encounter for closed fracture Status: Acute Assessment and Plan: displaced right proximal humerus fracture as noted by imaging Orthopedics following possible surgical intervention once medically optimized sodium level is relatively stable in the high 120s and low 130s. Okay for surgery Subjective Date/time seen: 07/11/22 10:17 Interval history: Patient is feeling about the same. Getting a breathing treatment. Voice seems stronger.. he is on thickened liquids now. Exam Narrative: General: Well-developed well-nourished male NAD Heart: normal S1 and S2; no rub or gallop Lungs: Clear than yesterday. Abdomen: soft, nontender, nondistended, positive bowel sounds Extremities: no cyanosis or clubbing; no edema; right sling in place Skin: resolving ecchymoses on right chest and right upper arm. No acute rash. Objective Data Vital Signs Vital Signs: Vital Signs - 24 hr 07/10/22 10:00 07/10/22 11:44 07/10/22 12:00 Temperature 98.6 F Pulse Rate 73 74 77 Respiratory Rate 24 H Blood Pressure 139/66 Pulse Oximetry 98 Oxygen Delivery Oxygen Flow Rate Fraction of Inspired Oxygen 07/10/22 12:00 07/10/22 14:21 07/10/22 14:44 Temperature Pulse Rate 74 74 78 Respiratory Rate 20 20 20 Blood
--- NOTE | 2022-07-11 10:26 | PM.IMPN ---
Progress Note: A&P Assessment and Plan (1) Acute respiratory failure with hypoxemia: Code(s): J96.01 - Acute respiratory failure with hypoxia Status: Acute (2) Closed fracture of right proximal humerus: Qualifiers: Encounter type: subsequent encounter Fracture alignment: displaced Fracture morphology: other fracture Code(s): S42.201A - Unspecified fracture of upper end of right humerus, initial encounter for closed fracture Status: Acute (3) Rhabdomyolysis: Code(s): M62.82 - Rhabdomyolysis Status: Acute (4) Pneumonia: Code(s): J18.9 - Pneumonia, unspecified organism Status: Acute Plan 71-year-old male patient who has a history of having multiple falls.? The patient was seen in the emergency room on 06/23/2022 when he fell in the parking lot at [email or web address] landed on his right shoulder. Patient presented again on 07/01/22 after being found down, found to have rhabdomyolysis. 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: Appreciate nephrology consultation, defer further management to their recs On sodium chloride tabs 1g TID slowly dropping, down to 126 today, baseline 129-134 recheck this afternoon and possible 3% per nephro MSSA Bacteremia vs contaminant: 05/05 bld cx positive for MSSA Abx noted below Monitor repeat blood cultures Leuk resolved at this point MRSA cx negative ?Aspiration PNA with h/o COPD: Weaned off BIPAP, down to 2L nc Zosyn given 07/01, switched to unasyn 07/05, worsened resp failure 07/06, concerning for HAP, broadened abx to vanc + cefepime, now improving, day 11 total of antibiotics, likely day 6 of appropriate antibiotic coverage, will d/c vanc 07/11, and end date for cefepime will be 07/15 to complete a 10 day course of appropriate abx therapy, possible pseudomonas since he worsened on unasyn? would avoid fluoroquinolones due to shoulder surgery and inc risk of tendon rupture C/w bronchodilators, completed 7 day course 07/07/22, do not suspect COPD exac Yeast isolated in sputum, suspect colonization, species came back Rosa albicans and tropicalis, will defer treatment at this time, no signs of fungal infection as patient is improving, no sign of abscess/empyema on CT chest Right Humerus Fracture: Appreciate Ortho help Up to chair, in sling Plan is for OR on Wednesday 07/12 if patient stable npo after midnight, hold a/c, hold off on IVF due to resp failure and hyponatremia, may get 3% NS and is being transfused 1 unit pRBCs Acute Anemia: ?Etiology, could be retroperitoneal bleed versus bleeding into the shoulder joint versus? CT abdomen/pelvis remarkable for anasarca, no source of bleeding noted s/p 6 units pRBCs total FOBT negative Hold ASA, hep SQ Appreciate hem/onc consult Monitor closely, especially post operatively, administer 1 unit preoperatively for goal of 9 prior to surgery stable today at 8.1 07/11 Hypertension BP reviewed 07/11, cont to monitor, slightly elevated, defer to outpatient management Range acceptable, 118-150/50-75 DVT ppx:SCD Code:Full Dispo:pending improvement Subjective Date/time seen: 07/11/22 10:26 Interval history: 71-year-old male with past medical history significant for COPD, history of lung cancer status post right upper lobe pneumonectomy, heart disease, thyroid cancer status post chemo and radiation, GERD is presenting with multiple falls recently resulting in rhabdomyolysis, now resolved, also found to have aspiration pneumonia that appeared to progress to a HAP, improving, anemia of unknown etiology status post 6 units this admission, stool occult negative. Additionally, patient was noted to have a displaced right humerus fracture s/p one of his falls, plan for OR 07/12 when stable from respiratory standpoint. No overnight events noted. No chest pain or shortness of breath. No nausea, vomiting or diarrhea. No fevers or chills. He continues to complain of shoulder pain, stable. Review of Systems Review of Systems: 12 poi
[2022-07-11] MEDS: SODIUM CHLORIDE 1 GM TABLET PO ×3 (10:51→18:36)
[2022-07-11] MEDS: RANOLAZINE 500 MG TAB.ER.12H PO ×2 (10:51→20:53)
[2022-07-11] MEDS: SIMVASTATIN 20 MG TABLET PO (10:51)
[2022-07-11] MEDS: PANTOPRAZOLE SODIUM IV 40 MG VIAL IV PUSH ×2 (10:52→20:53)
[2022-07-11] MEDS: SILVERGEL (ELTA) 45 ML 1 APPLIC TOPICAL (10:52)
[2022-07-11 14:14] LABS: Hematocrit 25.3 % (42.0-52.0); Hemoglobin 8.1 g/dL (14.0-18.0)
[2022-07-11] MEDS: oxyCODONE HCL (*CRX) 5 MG TAB IR PO ×2 (14:17→18:36)
[2022-07-11] MEDS: SODIUM CHLORIDE 0.9% IV 250 ML 30 ML IV CONT (14:18)
--- NOTE | 2022-07-11 15:37 | PCOTNOTE ---
Attempted to see pt for Occupational Therapy treatment. Pt is unavailable at this time due to visiting with doctor. Will continue per POC duration/frequency tomorrow.
[2022-07-11] MEDS: BACLOFEN 10 MG TABLET PO (16:17)
[2022-07-11] MEDS: TUBING, BLOOD PLUM PUMP TUBING 1 EACH XX (16:37)
[2022-07-11 16:39] LABS: Sodium 129 mmol/L (137-145)
[2022-07-11] MEDS: ESCITALOPRAM OXALATE 10 MG TABLET 20 MG PO (20:53)
--- NOTE | 2022-07-11 22:11 | PCRCNOTE ---
Window of time for administration has passed. See next scheduled administration.
[2022-07-11] MEDS: HYDROmorphone HCL INJ (*CRX) 1 MG/ML SYR 0.5 MG IV PUSH (23:02)
[2022-07-12] VITALS (26 sets, daily range): BP systolic 107–152; BP diastolic 50–82; PULSE 61–78; RESP 13–22; TEMP 36.2–37.3; O2SAT 92–100
[2022-07-12] MEDS: ALBUTEROL SULFATE NEB 2.5 MG/3 ML INH 5 MG INHALATION ×3 (02:41→18:33)
[2022-07-12] MEDS: IPRATROPIUM BR 0.02% INH SOLN 0.5 MG/2.5 ML VIAL INHALATION ×3 (02:42→18:33)
[2022-07-12] MEDS: LEVOTHYROXINE SODIUM 150 MCG TABLET PO (05:56)
[2022-07-12] MEDS: CEFEPIME 2 GM/NS 50 ML 2 GM/50 ML BAG IVPB ×3 (05:57→21:16)
[2022-07-12] MEDS: CENTRAL LINE FLUSH 10 ML IV PUSH ×3 (05:57→21:17)
[2022-07-12 06:02] LABS: Basophils Percent Auto 0.1 % (0.2-1.2); Eosinophils Absolute Auto 0.1 K/mm3 (0-0.3); Eosinophils Percent Auto 1.7 % (0-4.4); Hemoglobin 8.8 g/dL (14.0-18.0); Immature Granulocyte Absolute 0.15 K/mm3 (0.00-0.031); Immature Granulocyte Percent A 1.8 % (0-0.5); Lymphocytes Absolute Auto 0.34 K/mm3 (0.9-3.2); Lymphocytes Percent Auto 4.2 % (18.3-44.2); Mean Corpuscular HGB Conc 32.6 g/dl (32-36); Mean Corpuscular Hemoglobin 30.3 pg (26-34); Mean Corpuscular Volume 93.1 fl (80-100); Mean Platelet Volume 9.9 fl (7.4-10.4); Monocytes Absolute Auto 0.7 K/mm3 (0.1-0.6); Neutrophils Absolute Auto 6.9 K/mm3 (1.3-6.7); Neutrophils Percent Auto 84.2 % (45.5-73.1); Platelet Count Result 104 k/mm3 (150-375); Red Cell Distribution Width 18.1 % (11.5-14.5); White Blood Count 8.2 K/mm3 (4.5-10.0)
[2022-07-12 06:24] LABS: Alanine Aminotransferase 34 U/L (6-50); Albumin Level 2.6 g/dL (3.5-5.1); Alkaline Phosphatase 69 U/L (38-126); Anion Gap -2 mmol/L (8-16); Aspartate Amino Transferase 53 U/L (17-59); Bilirubin,Total 2.2 mg/dL (0.2-1.3); Blood Urea Nitrogen 9 mg/dL (9-20); Calcium 7.2 mg/dL (8.4-10.2); Carbon Dioxide 38 mmol/L (22-30); Chloride 93 mmol/L (98-107); Creatine Kinase 477 U/L (55-170); Estimated CRCL calculation 120 ml/min; Estimated Glomerular Filt Rate > 60; Glucose 84 mg/dL (65-110); Phosphorus 2.3 mg/dL (2.5-4.5); Potassium 3.8 mmol/L (3.4-5.0); Sodium 129 mmol/L (137-145)
--- NOTE | 2022-07-12 08:36 | PM.PNNEP ---
Progress Note: A&P Assessment and Plan (1) Hyponatremia: Code(s): E87.1 - Hypo-osmolality and hyponatremia Status: Acute Assessment and Plan: better/improving at this time acute on chronic issue baseline sodium seems to run around 129 - 134 at best multiple risk factors for hyponatremia: pneumonia lung disease (COPD) SSRI use (lexapro) PPI use (nexium) pain (from recent fall/trauma/fractures)? And narcotics hypothyroidism (restarted treatment on this admission) ? Serum osmolality similar to calculated.? 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 UPEP ? Are still pending urine electrolytes not prerenal hold off on checking cortisol - already on steroids on salt tablets ? And thickened liquids. ? He was getting IV fluids but these have been discontinued. sodium is stable. 129 today okay for surgery from the sodium standpoint. (2) Acute respiratory failure with hypoxemia: Code(s): J96.01 - Acute respiratory failure with hypoxia Status: Acute Assessment and Plan: off oxygen (3) Rhabdomyolysis: Code(s): M62.82 - Rhabdomyolysis Status: Acute Assessment and Plan: ck 477. (4) Anemia: Code(s): D64.9 - Anemia, unspecified Status: Acute Assessment and Plan: Hb stable in the 8s. (5) Pneumonia: Code(s): J18.9 - Pneumonia, unspecified organism Status: Acute Assessment and Plan: on atbs (6) COPD (chronic obstructive pulmonary disease): Qualifiers: COPD type: unspecified COPD Qualified Code(s): J44.9 - Chronic obstructive pulmonary disease, unspecified Code(s): J44.9 - Chronic obstructive pulmonary disease, unspecified Status: Acute Assessment and Plan: aspiration precautions off oxygen (7) Closed fracture of right proximal humerus: Qualifiers: Encounter type: subsequent encounter Fracture morphology: other fracture Fracture alignment: displaced Code(s): S42.201A - Unspecified fracture of upper end of right humerus, initial encounter for closed fracture Status: Acute Assessment and Plan: ortho following Subjective Date/time seen: 07/12/22 08:36 Interval history: patient is feeling okay Exam Narrative: WDWN in NAD skin no rash head ncat lungs clear to ausculation cor reg no rub or gallop abd BS+ nontender and soft ext no edema. Objective Data Vital Signs Vital Signs: Vital Signs - 24 hr 07/11/22 09:10 07/11/22 09:10 07/11/22 10:00 Temperature Pulse Rate 71 71 77 Respiratory Rate 18 Blood Pressure Pulse Oximetry 97 Oxygen Delivery Nasal Cannula Oxygen Flow Rate 2 Fraction of Inspired Oxygen 07/11/22 12:00 07/11/22 12:00 07/11/22 12:00 Temperature 98.2 F Pulse Rate 74 73 73 Respiratory Rate 20 16 Blood Pressure 133/66 Pulse Oximetry 100 100 Oxygen Delivery Nasal Cannula Oxygen Flow Rate 1 Fraction of Inspired Oxygen 07/11/22 14:00 07/11/22 16:40 07/11/22 16:59 Temperature 97.7 F 98.2 F Pulse Rate 100 71 70 Respiratory Rate 24 H 24 H Blood Pressure 151/73 H 143/60 H Pulse Oximetry 97 94 Oxygen Delivery Oxygen Flow Rate Fraction of Inspired Oxygen 07/11/22 09:23 07/11/22 14:29 07/11/22 14:46 Temperature Pulse Rate 71 74 74 Respiratory Rate 18 18 18 Blood Pressure Pulse Oximetry Oxygen Delivery Oxygen Flow Rate Fraction of Inspired Oxygen 07/11/22 16:00 07/11/22 17:59 07/11/22 19:28 Temperature 97.9 F 98.1 F 98.4 F Pulse Rate 77 72 73 Respiratory Rate 20 16 20 Blood Pressure 151/73 H 136/85 142/76 H Pulse Oximetry 90 93 96 Oxygen Delivery Oxygen Flow Rate Fraction of Inspired Oxygen 07/11/22 16:00 07/11/22 18:00 07/11/22 16:00 Temperature Pulse Rate 73 73 72 Respiratory Rate 20 Blood Pressure Pulse Oximetry 95 Oxygen Delivery Nasal Cannula Oxygen Flow Rate 1 Fraction of Inspir
--- NOTE | 2022-07-12 08:54 | PM.IMPN ---
Progress Note: A&P Assessment and Plan (1) Acute respiratory failure with hypoxemia: Code(s): J96.01 - Acute respiratory failure with hypoxia Status: Acute (2) Closed fracture of right proximal humerus: Qualifiers: Encounter type: subsequent encounter Fracture alignment: displaced Fracture morphology: other fracture Code(s): S42.201A - Unspecified fracture of upper end of right humerus, initial encounter for closed fracture Status: Acute (3) Rhabdomyolysis: Code(s): M62.82 - Rhabdomyolysis Status: Acute (4) Pneumonia: Code(s): J18.9 - Pneumonia, unspecified organism Status: Acute Plan 71-year-old male patient who has a history of having multiple falls.? The patient was seen in the emergency room on 06/23/2022 when he fell in the parking lot at [employer] and landed on his right shoulder. Patient presented again on 07/01/22 after being found down, noted to have rhabdomyolysis, now resolved. 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: Appreciate nephrology consultation, defer further management to their recs On sodium chloride tabs 1g TID improved to 129 today, baseline 129-134 MSSA Bacteremia vs contaminant: 05/05 bld cx positive for MSSA Abx noted below repeat bld cx neg Leuk resolved at this point MRSA cx negative ?Aspiration PNA with h/o COPD: Weaned off BIPAP, down to 2L nc Zosyn given 07/01, switched to unasyn 07/05, worsened resp failure 07/06, concerning for HAP, broadened abx to vanc + cefepime, now improving, d/c vanc 07/11 end date for cefepime will be 07/15 to complete a 10 day course of appropriate abx therapy, possible pseudomonas since he worsened on unasyn? would avoid fluoroquinolones due to shoulder surgery and inc risk of tendon rupture COPD, not in exacerbation: C/w bronchodilators, completed 7 day course 07/07/22, do not suspect COPD exac Yeast isolated in sputum, suspect colonization, species came back Rosa albicans and tropicalis, will defer treatment at this time, no signs of fungal infection as patient is improving, no sign of abscess/empyema on CT chest Right Humerus Fracture: Appreciate Ortho help Up to chair, in sling Plan is for OR Wednesday 07/12 if patient stable s/p transfusion 1 unit pRBC prior to OR Acute Anemia: ?Etiology, could be retroperitoneal bleed versus bleeding into the shoulder joint versus? CT abdomen/pelvis remarkable for anasarca, no source of bleeding noted s/p 7 units pRBCs total FOBT negative Hold ASA, hep SQ Appreciate hem/onc consult Monitor closely, especially post operatively, administer 1 unit preoperatively for goal of 9 prior to surgery hgb 8.8 07/12 Hypertension BP reviewed 07/11, cont to monitor, slightly elevated, defer to outpatient management Range acceptable, 118-150/50-75 DVT ppx:SCD Code:Full Dispo:pending improvement Subjective Date/time seen: 07/12/22 08:54 Interval history: 71-year-old male with past medical history significant for COPD, history of lung cancer status post right upper lobe pneumonectomy, heart disease, thyroid cancer status post chemo and radiation, GERD is presenting with multiple falls recently resulting in rhabdomyolysis, now resolved, also found to have aspiration pneumonia that appeared to progress to a HAP, improving, anemia of unknown etiology status post 6 units this admission, stool occult negative. Additionally, patient was noted to have a displaced right humerus fracture s/p one of his falls, plan for OR 07/12 when stable from respiratory standpoint. In the OR today Objective Data Vital Signs Vital Signs: Vital Signs - 24 hr 07/11/22 09:10 07/11/22 09:10 07/11/22 10:00 Temperature Pulse Rate 71 71 77 Respiratory Rate 18 Blood Pressure Pulse Oximetry 97 Oxygen Delivery Nasal Cannula Oxygen Flow Rate 2 Fraction of Inspired Oxygen 07/11/22 12:00 07/11/22 12:00 07/11/22 12:00 Temperature 98.2 F Pulse Rate 74 73 73 Respiratory Rate 20 16 [place]
[2022-07-12] MEDS: FLUTICASONE/UMECLIDIN/VILANTER 100-62.5-25 MCG ELLIPTA 1 PUFF INHALATION (08:56)
[2022-07-12] MEDS: SIMVASTATIN 20 MG TABLET PO (09:54)
[2022-07-12] MEDS: SILVERGEL (ELTA) 45 ML 1 APPLIC TOPICAL (09:54)
[2022-07-12] MEDS: SODIUM CHLORIDE 1 GM TABLET PO ×2 (09:54→18:21)
[2022-07-12] MEDS: PANTOPRAZOLE SODIUM IV 40 MG VIAL IV PUSH ×2 (09:54→20:51)
[2022-07-12] MEDS: RANOLAZINE 500 MG TAB.ER.12H PO ×2 (09:54→20:51)
--- NOTE | 2022-07-12 11:49 | WPDANESEPPF ---
Anes - Initial Pre Proc Eval Procedure: Operation Date: 07/12/22 14:00 Proposed Procedures p Open Reduction Internal Fixation with Patiño Staple Right Shoulder - Leonel Collins MD Date/Time: 07/12/22 11:49 Surgeon: Abby Sanchez MD Pre Op Diagnosis: Rhabdomyolysis,Pneumonia,Anemia,Shoulder Fracture Patient Data Age: 71 Gender: M Height: 1.78 m Weight: 92.9 kg Last Vital Signs Temp 36.4 C 07/12/22 08:07 Pulse 71 07/12/22 09:11 Resp 22 H 07/12/22 09:11 BP 127/64 07/12/22 08:07 Pulse Ox 94 07/12/22 09:14 O2 Del Method Nasal Cannula 07/12/22 09:14 O2 Flow Rate 3 07/12/22 09:14 FiO2 28 07/12/22 04:00 Allergies Allergy/AdvReac Type Severity Reaction Status Date / Time atorvastatin Allergy Mild MADE ME Verified 09/16/21 14:10 SICK terbinafine Allergy Mild MADE ME Verified 09/16/21 14:10 SICK methocarbamol AdvReac Mild MADE ME Verified 09/16/21 14:10 SICK Home Medications Medication Instructions Recorded Confirmed Type aspirin 81 mg chewable tablet 2 tablet PO DAILY 07/21/20 07/01/22 History baclofen 10 mg tablet 10 mg PO TID PRN Pain 07/21/20 07/02/22 History escitalopram oxalate 20 mg tablet 20 mg PO HS 07/21/20 07/01/22 History fluticasone fur. 100 mcg-umeclid 1 inh inhalation DAILY 07/21/20 07/01/22 History 62.5 mcg-vilant 25 mcg inhalat.powder (Trelegy Ellipta) nitroglycerin 400 mcg/spray 1 spray translingual Q5M PRN Chest 07/21/20 07/01/22 History translingual Pain simvastatin 20 mg tablet 20 mg PO DAILY 07/21/20 07/01/22 History esomeprazole magnesium 40 mg 40 mg PO DAILY 03/22/21 07/01/22 History capsule,delayed release ranolazine 500 mg tablet,extended 500 mg PO Q12H 03/22/21 07/01/22 History release,12 hr albuterol sulfate 90 mcg/actuation 1 inh inhalation Q4H PRN Shortness 03/25/21 07/01/22 Rx aerosol inhaler (ProAir HFA) Of Breath Or Wheezing #0 grams alprazolam 1 mg tablet (Xanax) 1 mg PO TID PRN Anxiety #10 tabs 03/25/21 07/01/22 Rx hydrocodone 5 mg-acetaminophen 325 1 tablet PO Q6H PRN pain #10 tabs 03/25/21 07/01/22 Rx mg tablet Laboratory Tests 07/11/22 07/11/22 07/11/22 13:52 13:52 16:27 WBC RBC Hgb 8.1 g/dL L g/dL (14.0-18.0) Hct 25.3 % L % (42.0-52.0) MCV MCH MCHC RDW Plt Count MPV Immature Gran % (Auto) Neut % (Auto) Lymph % (Auto) [place] % (Auto) Eos % (Auto) Baso % (Auto) Lymph # (Auto) [place] # (Auto) Eos # (Auto) Baso # (Auto) Abs Immat Gran (auto) Absolute Neuts (auto) Absolute Nucleated RBC Nucleated RBC % Sodium 129 mmol/L L mmol/L (137-145) Potassium Chloride Carbon Dioxide Anion Gap BUN Creatinine Estim Creat Clear Calc Estimated GFR Glucose Calcium Phosphorus Total Bilirubin AST ALT Alkaline Phosphatase Total Creatine Kinase Total Protein Albumin Blood Type O Positive Antibody Screen Negative Crossmatch See Detail 07/12/22 07/12/22 05:44 05:44 WBC 8.2 K/mm3 K/mm3 (4.5-10.0) RBC 2.90 M/mm3 L M/mm3 (4.6-6.20) Hgb 8.8 g/dL L g/dL (14.0-18.0) Hct 27.0 % L % (42.0-52.0) MCV 93.1 fl fl (80-100) MCH 30.3 pg pg (26-34) MCHC 32.6 g/dl g/dl (32-36) RDW 18.1 % H % (11.5-14.5) Plt Count 104 k/mm3 L k/mm3 (150-375) MPV 9.9 fl fl (7.4-10.4) Immature Gran % (Auto) 1.8 % H % (0-0.5) Neut % (Auto) 84.2 % H % (45.5-73.1) Lymph % (Auto) 4.2
[2022-07-12] MEDS: SODIUM CHLORIDE 0.9% IV 1,000 ML 30 ML IV CONT (12:30)
--- NOTE | 2022-07-12 12:30 | PCOTNOTE ---
Attempted to see patient this pm, however patient was off floor for surgery.
--- NOTE | 2022-07-12 12:58 | WPDHPUPDATE1 ---
History and Physical Update Update Date/Time: 07/12/22 12:58 History and Physical has been reviewed, including an updated exam of the patient. There are NO changes in the patient's condition. Risks, benefits, and alternatives have been discussed and questions answered. Patient agrees to proceed with procedure.
--- NOTE | 2022-07-12 13:41 | PCRCNOTE ---
1400 UPD NOT GIVEN; PT IN SURGERY
[2022-07-12] MEDS: BUPIVACAINE/EPINEPHRINE 0.25% 50 ML VIAL 7 ML INFILTRATE (13:50)
--- NOTE | 2022-07-12 14:40 | P.OP_ITS ---
Procedure Note - Detailed Date of Procedure 07/12/22 Pre-op Diagnosis displaced right proximal humeral surgical neck fracture Post-op Diagnosis Same Procedure Performed ORIF right proximal humerus fracture Surgeon Leonel Collins MD Director Strategic Account Management Juan Bhatti Anesthesia General Description of Procedure the patient was identified and proper site identified. He was taken to the operating room and after general anesthetic induction with intubation, he was transferred over to the OR table positioning him in the usual manner for fixation of a right proximal humerus fracture. Care was taken to properly pad position his torso extremities. Right upper extremity was prepped and draped free in usual sterile fashion. The fracture was examined fluoroscopically and was noted that with some traction and rotation that a reasonable reduction could be obtained. Longitudinal incision was made over the junction of the middle and anterior thirds the deltoid. Subcutaneous tissue sharply dissected down to the deltoid which was then divided for distance of about 3.5 centimeters between the anterior middle thirds exposing the proximal humerus. Most of the rotator cuff was absent. Using the tuberosity as landmark to holes were made in the greater tuberosity/articular surface junction. The Patiño staple device was then passed using fluoroscopic assistance from the proximal fragment into the distal fragment ensuring intramedullary position. This provided angular and rotational stability to the fracture site that was marked overall alignment was satisfactory. Three 2. Ethibond sutures were passed through the hole in the top portion the staple to secure it to the greater tuberosity. The deltoid was reapproximated with 2. Vicryl interrupted sutures. Subcu reapproximated with 3- 0 V lock and then 3-0 nylon horizontal mattresses. Sterile dressing was applied. At the completion of the procedure the patient's forearm was redressed as well. He tolerated the procedure well. He was awakened, extubated and then transferred to the bed take him to recovery room in stable condition. There were no known intraoperative complications. Estimated blood loss 30 milliliters. He was already receiving perioperative antibiotics. Estimated Blood Loss 30 Drains No Packing No Pathology None sent Complications No immediate complications Condition Stable Disposition PACU [facility] Billing Surgery - Charge Forward: Surgery Billing (38577 - Fracture repair; 57092 - intraoperative fluoroscopy for decision making)
--- NOTE | 2022-07-12 14:57 | SUR.OPER ---
total u/a 450ml kristin and clear via arguelles patient came with.
--- NOTE | 2022-07-12 14:59 | SUR.OPER ---
left arm kenia wrap patient arrived with remained intact.
[2022-07-12] MEDS: HYDROcodone/acetaminophen (*CRX) 5-325 MG TABLET 1 TAB PO (18:21)
[2022-07-12] MEDS: HEPARIN SODIUM 5,000 UNITS/ML VIAL 5000 UNITS SUB-Q (20:50)
[2022-07-12] MEDS: ESCITALOPRAM OXALATE 10 MG TABLET 20 MG PO (20:51)
[2022-07-13] VITALS (27 sets, daily range): BP systolic 110–148; BP diastolic 43–82; PULSE 60–80; RESP 18–22; TEMP 36–37; O2SAT 92–100
[2022-07-13] MEDS: IPRATROPIUM BR 0.02% INH SOLN 0.5 MG/2.5 ML VIAL INHALATION ×4 (02:05→20:15)
[2022-07-13] MEDS: ALBUTEROL SULFATE NEB 2.5 MG/3 ML INH 5 MG INHALATION ×4 (02:05→20:15)
[2022-07-13] MEDS: CEFEPIME 2 GM/NS 50 ML 2 GM/50 ML BAG IVPB ×3 (05:44→21:27)
[2022-07-13 05:45] LABS: Basophils Percent Auto 0.1 % (0.2-1.2); Eosinophils Percent Auto 0.1 % (0-4.4); Hematocrit 26.2 % (42.0-52.0); Hemoglobin 8.3 g/dL (14.0-18.0); Immature Granulocyte Absolute 0.14 K/mm3 (0.00-0.031); Immature Granulocyte Percent A 1.9 % (0-0.5); Lymphocytes Absolute Auto 0.55 K/mm3 (0.9-3.2); Lymphocytes Percent Auto 7.6 % (18.3-44.2); Mean Corpuscular HGB Conc 31.7 g/dl (32-36); Mean Corpuscular Hemoglobin 30.2 pg (26-34); Mean Corpuscular Volume 95.3 fl (80-100); Mean Platelet Volume 9.3 fl (7.4-10.4); Monocytes Absolute Auto 0.6 K/mm3 (0.1-0.6); Monocytes Percent Auto 8.7 % (2.6-8.5); Neutrophils Absolute Auto 5.9 K/mm3 (1.3-6.7); Neutrophils Percent Auto 81.6 % (45.5-73.1); Platelet Count Result 118 k/mm3 (150-375); Red Blood Count 2.75 M/mm3 (4.6-6.20); Red Cell Distribution Width 18.1 % (11.5-14.5); White Blood Count 7.2 K/mm3 (4.5-10.0)
[2022-07-13] MEDS: LEVOTHYROXINE SODIUM 150 MCG TABLET PO ×2 (05:45→21:28)
[2022-07-13] MEDS: CENTRAL LINE FLUSH 10 ML IV PUSH ×3 (05:45→21:29)
[2022-07-13 06:00] LABS: Alanine Aminotransferase 31 U/L (6-50); Albumin Level 2.5 g/dL (3.5-5.1); Alkaline Phosphatase 72 U/L (38-126); Anion Gap 2 mmol/L (8-16); Aspartate Amino Transferase 42 U/L (17-59); Bilirubin,Total 1.9 mg/dL (0.2-1.3); Blood Urea Nitrogen 14 mg/dL (9-20); Calcium 6.9 mg/dL (8.4-10.2); Carbon Dioxide 34 mmol/L (22-30); Chloride 95 mmol/L (98-107); Creatine Kinase 326 U/L (55-170); Estimated CRCL calculation 120 ml/min; Estimated Glomerular Filt Rate > 60; Glucose 82 mg/dL (65-110); Potassium 3.6 mmol/L (3.4-5.0); Sodium 131 mmol/L (137-145)
[2022-07-13] MEDS: FLUTICASONE/UMECLIDIN/VILANTER 100-62.5-25 MCG ELLIPTA 1 PUFF INHALATION (07:47)
[2022-07-13] MEDS: SODIUM CHLORIDE 1 GM TABLET PO ×3 (09:14→17:36)
[2022-07-13] MEDS: SILVERGEL (ELTA) 45 ML 1 APPLIC TOPICAL (09:15)
[2022-07-13] MEDS: SIMVASTATIN 20 MG TABLET PO (09:15)
[2022-07-13] MEDS: PANTOPRAZOLE SODIUM IV 40 MG VIAL IV PUSH ×2 (09:16→21:27)
[2022-07-13] MEDS: RANOLAZINE 500 MG TAB.ER.12H PO ×2 (09:16→21:28)
[2022-07-13] MEDS: SCOPOLAMINE 1.5 MG PATCH TRANSDERM (09:16)
[2022-07-13] MEDS: HEPARIN SODIUM 5,000 UNITS/ML VIAL 5000 UNITS SUB-Q ×2 (09:17→21:27)
[2022-07-13] MEDS: HYDROcodone/acetaminophen (*CRX) 5-325 MG TABLET 2 TAB PO ×2 (09:30→15:04)
--- NOTE | 2022-07-13 12:06 | PM.IMPN ---
Progress Note: A&P Assessment and Plan (1) Acute respiratory failure with hypoxemia: Code(s): J96.01 - Acute respiratory failure with hypoxia Status: Acute (2) Closed fracture of right proximal humerus: Qualifiers: Encounter type: subsequent encounter Fracture alignment: displaced Fracture morphology: other fracture Code(s): S42.201A - Unspecified fracture of upper end of right humerus, initial encounter for closed fracture Status: Acute (3) Rhabdomyolysis: Code(s): M62.82 - Rhabdomyolysis Status: Acute (4) Pneumonia: Code(s): J18.9 - Pneumonia, unspecified organism Status: Acute Plan 71-year-old male patient who has a history of having multiple falls.? The patient was seen in the emergency room on 06/23/2022 when he fell in the parking lot at [employer] and landed on his right shoulder. Patient presented again on 07/01/22 after being found down, noted to have rhabdomyolysis, now resolved. 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: Appreciate nephrology consultation, defer further management to their recs On sodium chloride tabs 1g TID improved to 131 today, baseline 129-134 MSSA Bacteremia vs contaminant: 05/05 bld cx positive for MSSA Abx noted below repeat bld cx neg Leuk resolved at this point MRSA cx negative ?Aspiration PNA with h/o COPD: Weaned off BIPAP, down to 1L nc Zosyn started 07/01, de-escalated to unasyn 07/05, worsened resp failure 07/06 concerning for HAP, broadened abx to vanc + cefepime, now improving, d/c vanc 07/11 end date for cefepime will be 07/15 to complete a 10 day course of appropriate abx therapy, possible pseudomonas since he worsened on unasyn? would avoid fluoroquinolones due to shoulder surgery and inc risk of tendon rupture COPD, not in exacerbation: C/w bronchodilators, completed 7 day course 07/07/22, do not suspect COPD exac Yeast isolated in sputum, suspect colonization, species came back Rosa albicans and tropicalis, will defer treatment at this time, no signs of fungal infection as patient is improving, no sign of abscess/empyema on CT chest Right Humerus Fracture: Appreciate Ortho help Up to chair, in sling POD#1 ORIF humerus Acute Anemia: ?Etiology, could be retroperitoneal bleed versus bleeding into the shoulder joint versus? CT abdomen/pelvis 07/06 remarkable for anasarca, no source of bleeding noted s/p 7 units pRBCs total FOBT negative Hold ASA, hep SQ until ok with surgery Appreciate hem/onc consult 07/07, flow cytometric analysis is pending, f/u outpatient Monitor closely, especially post operatively, administered 1 unit preoperatively for goal of approx 9 prior to surgery hgb 8.3 07/13 Hypertension: BP reviewed 07/13, cont to monitor, slightly elevated, defer to outpatient management Range acceptable, 118-148/50-82 Frequent falls: ?orthostatic hypotension, check orth VS qshift could also be 2/2 uncontrolled hypothyroidism cont PT/OT Hypothyroidism: elevated TSH noted, increase levothyroxine from 150 to 175 mcg and recheck in 4-6 weeks outpatient f/u FT4 + FT3 DVT ppx:SCD Code:Full Dispo:pending improvement Subjective Date/time seen: 07/13/22 12:06 Interval history: 71-year-old male with past medical history significant for COPD, history of lung cancer status post right upper lobe pneumonectomy, heart disease, thyroid cancer status post chemo and radiation, GERD is presenting with multiple falls recently resulting in rhabdomyolysis, now resolved, also found to have aspiration pneumonia that appeared to progress to a HAP, improving, anemia of unknown etiology status post 6 units this admission, stool occult negative. Additionally, patient was noted to have a displaced right humerus fracture s/p one of his falls, OR 07/12 for ORIF humerus. No overnight events noted. No chest pain or shortness of breath. No nausea, vomiting or diarrhea. No fevers or chills. Pain controlled. Friend is in
--- NOTE | 2022-07-13 15:57 | PM.PNORT ---
Progress Note: A&P Assessment and Plan (1) Closed fracture of right proximal humerus: Qualifiers: Encounter type: subsequent encounter Fracture morphology: other fracture Fracture alignment: displaced Code(s): S42.201A - Unspecified fracture of upper end of right humerus, initial encounter for closed fracture Status: Acute Plan Can start to try and mobilize. Not going to do much therapy with the right arm at this point. 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 We will have to balance fracture healing with tenriism of mobility. Following. Subjective Subjective Date/Time Seen: 07/13/22 15:57 Post Op day: 1 Principal diagnosis: Dx: ORIF right proximal humerus fracture Interval history: 71-year-old male who is postop day one ORIF right proximal humerus fracture. Is in the chair and seems to be tolerating it reasonably well. Does complain of pain in the right shoulder. Exam Const: General: cooperative, alert and awake Extrem: Other: Exam of Right shoulder shows some drainage in the dressing. No new additional bruising. Grossly motor and sensory function right upper extremity intact exam however is limited secondary to discomfort. Objective Data Vital Signs Vital Signs: Vital Signs - 24 hr 07/12/22 16:00 07/12/22 16:00 07/12/22 16:27 Temperature 97.1 F L Pulse Rate 61 61 Respiratory Rate 16 20 Blood Pressure 118/75 119/60 Pulse Oximetry 95 100 94 Oxygen Delivery Nasal Cannula Nasal Cannula Oxygen Flow Rate 2 2 Fraction of Inspired Oxygen 07/12/22 18:33 07/12/22 18:00 07/12/22 20:00 Temperature 97.7 F Pulse Rate 64 64 68 Respiratory Rate 20 20 Blood Pressure 108/50 L Pulse Oximetry 100 Oxygen Delivery Oxygen Flow Rate Fraction of Inspired Oxygen 07/12/22 23:56 07/12/22 20:00 07/12/22 20:00 Temperature 97.8 F Pulse Rate 67 71 71 Respiratory Rate 20 20 Blood Pressure 121/50 L Pulse Oximetry 93 93 Oxygen Delivery Nasal Cannula Oxygen Flow Rate 1 Fraction of Inspired Oxygen 07/12/22 22:00 07/13/22 00:00 07/13/22 00:00 Temperature Pulse Rate 64 64 64 Respiratory Rate 20 Blood Pressure Pulse Oximetry 93 Oxygen Delivery Nasal Cannula Oxygen Flow Rate 2 Fraction of Inspired Oxygen 07/13/22 02:00 07/13/22 02:05 07/13/22 02:16 Temperature Pulse Rate 64 72 75 Respiratory Rate 18 18 Blood Pressure Pulse Oximetry Oxygen Delivery Oxygen Flow Rate Fraction of Inspired Oxygen 07/13/22 04:00 07/13/22 04:00 07/13/22 05:00 Temperature 97.8 F Pulse Rate 70 70 60 Respiratory Rate 18 20 Blood Pressure 118/77 Pulse Oximetry 93 96 Oxygen Delivery Nasal Cannula Oxygen Flow Rate 1 Fraction of Inspired Oxygen 28 07/13/22 06:00 07/13/22 07:47 07/13/22 07:51 Temperature Pulse Rate 70 70 70 Respiratory Rate 20 18 Blood Pressure Pulse Oximetry 93 Oxygen Delivery Nasal Cannula Oxygen Flow Rate 1 Fraction of Inspired Oxygen 07/13/22 08:10 07/13/22 08:27 07/13/22 08:00 Temperature 98.6 F Pulse Rate 77 72 Respiratory Rate 18 20 Blood Pressure 148/82 H Pulse Oximetry 100 100 Oxygen Delivery Nasal Cannula Oxygen Flow Rate 1 Fraction of Inspired Oxygen 07/13/22 08:00 07/13/22 10:00 07/13/22 11:50 Temperature Pulse Rate 73 72 Respiratory Rate Blood Pressure Pulse Oximetry Oxygen Delivery Nasal Cannula Oxygen Flow Rate 1 Fraction of Inspired Oxygen 07/13/22 12:22 07/13/22 11:31 07/13/22 13:57 Temperature 97.3 F L Pulse Rate 71 69 Respiratory Rate 20 18 Blood Pressure 110/75 Pulse Oximetry 95 Oxygen Delivery Nasal Cannula Oxygen Flow Rate 2 Fraction of Inspired Oxygen 07/13/22 14:00 07/13/22 14:13 07/13/22 12:00 Temperature Pulse Rate 67 Respiratory Rate 18 Blood Pressure Pulse
--- NOTE | 2022-07-13 16:08 | PM.PNNEP ---
Progress Note: A&P Assessment and Plan (1) Hyponatremia: Code(s): E87.1 - Hypo-osmolality and hyponatremia Status: Acute Assessment and Plan: better/improving at this time acute on chronic issue baseline sodium seems to run around 129 - 134 at best multiple risk factors for hyponatremia: pneumonia lung disease (COPD) SSRI use (lexapro) PPI use (nexium) pain (from recent fall/trauma/fractures)? And narcotics hypothyroidism (restarted treatment on this admission) ? Serum osmolality similar to calculated.? 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 UPEP ? Are still pending urine electrolytes not prerenal hold off on checking cortisol - already on steroids on salt tablets and thickened liquids. sodium is stable. 131 today Continue same management (2) Acute respiratory failure with hypoxemia: Code(s): J96.01 - Acute respiratory failure with hypoxia Status: Acute Assessment and Plan: off oxygen (3) Rhabdomyolysis: Code(s): M62.82 - Rhabdomyolysis Status: Acute Assessment and Plan: ck 477. (4) Anemia: Code(s): D64.9 - Anemia, unspecified Status: Acute Assessment and Plan: Hb stable in the 8s. (5) Pneumonia: Code(s): J18.9 - Pneumonia, unspecified organism Status: Acute Assessment and Plan: on atbs (6) COPD (chronic obstructive pulmonary disease): Qualifiers: COPD type: unspecified COPD Qualified Code(s): J44.9 - Chronic obstructive pulmonary disease, unspecified Code(s): J44.9 - Chronic obstructive pulmonary disease, unspecified Status: Acute Assessment and Plan: aspiration precautions off oxygen (7) Closed fracture of right proximal humerus: Qualifiers: Encounter type: subsequent encounter Fracture morphology: other fracture Fracture alignment: displaced Code(s): S42.201A - Unspecified fracture of upper end of right humerus, initial encounter for closed fracture Status: Acute Assessment and Plan: ortho following status post surgery Subjective Date/time seen: 07/13/22 16:08 Interval history: Patient is lying flat in bed. Breathing comfortably. He has ice bags on his right shoulder. Exam Narrative: WDWN in NAD skin no rash head ncat lungs clear to ausculation cor reg no rub or gallop abd BS+ nontender and soft ext no edema. Ice bags on the right shoulder, status post surgery. Objective Data Vital Signs Vital Signs: Vital Signs - 24 hr 07/12/22 16:27 07/12/22 18:33 07/12/22 18:00 Temperature 97.1 F L Pulse Rate 61 64 64 Respiratory Rate 20 20 Blood Pressure 119/60 Pulse Oximetry 94 Oxygen Delivery Oxygen Flow Rate Fraction of Inspired Oxygen 07/12/22 20:00 07/12/22 23:56 07/12/22 20:00 Temperature 97.7 F 97.8 F Pulse Rate 68 67 71 Respiratory Rate 20 20 Blood Pressure 108/50 L 121/50 L Pulse Oximetry 100 93 Oxygen Delivery Oxygen Flow Rate Fraction of Inspired Oxygen 07/12/22 20:00 07/12/22 22:00 07/13/22 00:00 Temperature Pulse Rate 71 64 64 Respiratory Rate 20 Blood Pressure Pulse Oximetry 93 Oxygen Delivery Nasal Cannula Oxygen Flow Rate 1 Fraction of Inspired Oxygen 07/13/22 00:00 07/13/22 02:00 07/13/22 02:05 Temperature Pulse Rate 64 64 72 Respiratory Rate 20 18 Blood Pressure Pulse Oximetry 93 Oxygen Delivery Nasal Cannula Oxygen Flow Rate 2 Fraction of Inspired Oxygen 07/13/22 02:16 07/13/22 04:00 07/13/22 04:00 Temperature Pulse Rate 75 70 70 Respiratory Rate 18 18 Blood Pressure Pulse Oximetry 93 Oxygen Delivery Nasal Cannula Oxygen Flow Rate 1 Fraction of Inspired Oxygen 07/13/22 05:00 07/13/22 06:00 07/13/22 07:47 Temperature 97.8 F Pulse Rate 60 70 70 Respiratory Rate 20 20 Blood Pressure 118/77 Pulse Oximetry 96 Oxygen Delivery Ox
[2022-07-13] MEDS: HYDROcodone/acetaminophen (*CRX) 5-325 MG TABLET 1 TAB PO (21:00)
[2022-07-13] MEDS: ESCITALOPRAM OXALATE 10 MG TABLET 20 MG PO (21:27)
[2022-07-13] MEDS: LEVOTHYROXINE SODIUM 25 MCG TABLET PO (21:28)
--- NOTE | 2022-07-13 22:59 | PC.NURSE ---
pain med was scanned by rn but did not appear on mar as scanned when rn looked at the mar later,
[2022-07-14] VITALS (27 sets, daily range): BP systolic 102–125; BP diastolic 49–61; PULSE 65–79; RESP 18–69; TEMP 36.3–37.3; O2SAT 93–99
[2022-07-14] MEDS: ALBUTEROL SULFATE NEB 2.5 MG/3 ML INH 5 MG INHALATION ×4 (02:47→21:35)
[2022-07-14] MEDS: IPRATROPIUM BR 0.02% INH SOLN 0.5 MG/2.5 ML VIAL INHALATION ×4 (02:47→21:35)
[2022-07-14] MEDS: CEFEPIME 2 GM/NS 50 ML 2 GM/50 ML BAG IVPB ×3 (05:16→20:48)
[2022-07-14] MEDS: LEVOTHYROXINE SODIUM 25 MCG TABLET PO (05:16)
[2022-07-14] MEDS: CENTRAL LINE FLUSH 10 ML IV PUSH ×3 (05:16→20:49)
[2022-07-14] MEDS: LEVOTHYROXINE SODIUM 150 MCG TABLET PO (05:16)
[2022-07-14 05:29] LABS: Alanine Aminotransferase 32 U/L (6-50); Albumin Level 2.8 g/dL (3.5-5.1); Alkaline Phosphatase 81 U/L (38-126); Anion Gap -4 mmol/L (8-16); Aspartate Amino Transferase 49 U/L (17-59); Bilirubin,Total 2.5 mg/dL (0.2-1.3); Blood Urea Nitrogen 14 mg/dL (9-20); Calcium 7.2 mg/dL (8.4-10.2); Carbon Dioxide 39 mmol/L (22-30); Chloride 94 mmol/L (98-107); Estimated CRCL calculation 120 ml/min; Estimated Glomerular Filt Rate > 60; Glucose 85 mg/dL (65-110); Sodium 129 mmol/L (137-145)
[2022-07-14 05:30] LABS: Basophils Percent Auto 0.2 % (0.2-1.2); Eosinophils Absolute Auto 0.1 K/mm3 (0-0.3); Eosinophils Percent Auto 1.1 % (0-4.4); Hematocrit 27.6 % (42.0-52.0); Hemoglobin 8.9 g/dL (14.0-18.0); Immature Granulocyte Absolute 0.11 K/mm3 (0.00-0.031); Immature Granulocyte Percent A 1.7 % (0-0.5); Immature Platelet Fraction Pct 3.2 % (0.9-11.2); Lymphocytes Absolute Auto 0.56 K/mm3 (0.9-3.2); Lymphocytes Percent Auto 8.5 % (18.3-44.2); Mean Corpuscular HGB Conc 32.2 g/dl (32-36); Mean Corpuscular Hemoglobin 30.6 pg (26-34); Mean Corpuscular Volume 94.8 fl (80-100); Mean Platelet Volume 9.7 fl (7.4-10.4); Monocytes Absolute Auto 0.6 K/mm3 (0.1-0.6); Monocytes Percent Auto 8.8 % (2.6-8.5); Neutrophils Absolute Auto 5.2 K/mm3 (1.3-6.7); Neutrophils Percent Auto 79.7 % (45.5-73.1); Platelet Count Result 105 k/mm3 (150-375); Red Blood Count 2.91 M/mm3 (4.6-6.20); Red Cell Distribution Width 17.7 % (11.5-14.5); White Blood Count 6.6 K/mm3 (4.5-10.0)
[2022-07-14] MEDS: FLUTICASONE/UMECLIDIN/VILANTER 100-62.5-25 MCG ELLIPTA 1 PUFF INHALATION (09:16)
[2022-07-14] MEDS: SIMVASTATIN 20 MG TABLET PO (09:31)
[2022-07-14] MEDS: SILVERGEL (ELTA) 45 ML 1 APPLIC TOPICAL (09:31)
[2022-07-14] MEDS: PANTOPRAZOLE SODIUM IV 40 MG VIAL IV PUSH ×2 (09:31→20:48)
[2022-07-14] MEDS: SODIUM CHLORIDE 1 GM TABLET PO ×3 (09:31→16:57)
[2022-07-14] MEDS: RANOLAZINE 500 MG TAB.ER.12H PO ×2 (09:31→20:48)
[2022-07-14] MEDS: HEPARIN SODIUM 5,000 UNITS/ML VIAL 5000 UNITS SUB-Q ×2 (09:34→20:48)
--- NOTE | 2022-07-14 10:21 | PM.PNNEP ---
Progress Note: A&P Assessment and Plan (1) Hyponatremia: Code(s): E87.1 - Hypo-osmolality and hyponatremia Status: Acute Assessment and Plan: better/improving at this time acute on chronic issue baseline sodium seems to run around 129 - 134 at best multiple risk factors for hyponatremia: pneumonia lung disease (COPD) SSRI use (lexapro) PPI use (nexium) pain (from recent fall/trauma/fractures)? And narcotics hypothyroidism (restarted treatment on this admission) ? Serum osmolality similar to calculated.? 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 UPEP ? Are normal urine electrolytes not prerenal hold off on checking cortisol - already on steroids on salt tablets and thickened liquids. sodium is stable. 129 today Continue same management (2) Acute respiratory failure with hypoxemia: Code(s): J96.01 - Acute respiratory failure with hypoxia Status: Acute Assessment and Plan: off oxygen (3) Rhabdomyolysis: Code(s): M62.82 - Rhabdomyolysis Status: Acute Assessment and Plan: ck improved at 326 (4) Anemia: Code(s): D64.9 - Anemia, unspecified Status: Acute Assessment and Plan: Hb stable in the 8s. (5) Pneumonia: Code(s): J18.9 - Pneumonia, unspecified organism Status: Acute Assessment and Plan: on atbs (6) COPD (chronic obstructive pulmonary disease): Qualifiers: COPD type: unspecified COPD Qualified Code(s): J44.9 - Chronic obstructive pulmonary disease, unspecified Code(s): J44.9 - Chronic obstructive pulmonary disease, unspecified Status: Acute Assessment and Plan: aspiration precautions off oxygen (7) Closed fracture of right proximal humerus: Qualifiers: Encounter type: subsequent encounter Fracture morphology: other fracture Fracture alignment: displaced Code(s): S42.201A - Unspecified fracture of upper end of right humerus, initial encounter for closed fracture Status: Acute Assessment and Plan: ortho following status post surgery Subjective Date/time seen: 07/14/22 10:21 Interval history: Patient is lying flat in bed. He is comfortable. His thickened liquid breakfast is in front of him. Exam Narrative: WDWN in NAD skin no rash head ncat lungs clear bilaterally cor reg no rub or gallop abd BS+ nontender and soft ext no edema. Objective Data Vital Signs Vital Signs: Vital Signs - 24 hr 07/13/22 11:50 07/13/22 12:22 07/13/22 11:31 Temperature 97.3 F L Pulse Rate 71 Respiratory Rate 20 Blood Pressure 110/75 Pulse Oximetry 95 Oxygen Delivery Nasal Cannula Nasal Cannula Oxygen Flow Rate 1 2 Fraction of Inspired Oxygen 07/13/22 13:57 07/13/22 14:00 07/13/22 14:13 Temperature Pulse Rate 69 67 Respiratory Rate 18 18 Blood Pressure Pulse Oximetry 92 Oxygen Delivery Nasal Cannula Oxygen Flow Rate 1 Fraction of Inspired Oxygen 07/13/22 12:00 07/13/22 12:00 07/13/22 14:00 Temperature Pulse Rate 80 67 Respiratory Rate Blood Pressure Pulse Oximetry 100 Oxygen Delivery Nasal Cannula Oxygen Flow Rate 1 Fraction of Inspired Oxygen 07/13/22 15:50 07/13/22 16:00 07/13/22 18:00 Temperature 97.5 F L Pulse Rate 67 67 66 Respiratory Rate 22 H Blood Pressure 114/43 L Pulse Oximetry 93 Oxygen Delivery Oxygen Flow Rate Fraction of Inspired Oxygen 07/13/22 16:00 07/13/22 20:18 07/13/22 20:15 Temperature Pulse Rate 65 Respiratory Rate 18 Blood Pressure Pulse Oximetry 93 94 Oxygen Delivery Nasal Cannula Nasal Cannula Oxygen Flow Rate 1 2 Fraction of Inspired Oxygen 07/13/22 20:00 07/13/22 20:00 07/13/22 20:00 Temperature 97.6 F Pulse Rate 65 62 62 Respiratory Rate 20 18 Blood Pressure 119/55 L Pulse Oximetry 97 94 Oxygen Delivery Nasal Cannula Oxygen Flow Rate 3
--- NOTE | 2022-07-14 11:27 | PM.PNORT ---
Progress Note: A&P Assessment and Plan (1) Closed fracture of right proximal humerus: Qualifiers: Encounter type: subsequent encounter Fracture morphology: other fracture Fracture alignment: displaced Code(s): S42.201A - Unspecified fracture of upper end of right humerus, initial encounter for closed fracture Status: Acute Plan Remain nonweightbearing of the right upper extremity but can mobilize. Balance fracture healing with mormon of mobility. He can use the right hand to feed himself. He will need suture removal and new x-ray of the right shoulder in 2 weeks. Following. Subjective Subjective Date/Time Seen: 07/14/22 11:27 Post Op day: 2 Principal diagnosis: Dx: ORIF right proximal humerus fracture Interval history: 71-year-old male who is postop day 2 ORIF right proximal humerus fracture. Laying in bed and resting, quite tired today. He did tolerate therapy yesterday. No new complaints regarding the right shoulder, still has pain. Review of Systems Constitutional: Constitutional: Reports as per HPI and Reports no additional constitutional complaints Musculoskeletal: Musculoskeletal: Reports no additional musculoskeletal complaints and Reports as per HPI Exam Const: General: cooperative, alert and tired appearing Skin: General skin exam: ecchymosis ( Ecchymosis throughout the entire right upper extremity, unchanged) Extrem: Other: Exam of right shoulder shows non purulent drainage of the dressing. 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 Capillary refill less than 2 seconds. Objective Data Vital Signs Vital Signs: Vital Signs - 24 hr 07/13/22 11:50 07/13/22 12:22 07/13/22 11:31 Temperature 97.3 F L Pulse Rate 71 Respiratory Rate 20 Blood Pressure 110/75 Pulse Oximetry 95 Oxygen Delivery Nasal Cannula Nasal Cannula Oxygen Flow Rate 1 2 Fraction of Inspired Oxygen 07/13/22 13:57 07/13/22 14:00 07/13/22 14:13 Temperature Pulse Rate 69 67 Respiratory Rate 18 18 Blood Pressure Pulse Oximetry 92 Oxygen Delivery Nasal Cannula Oxygen Flow Rate 1 Fraction of Inspired Oxygen 07/13/22 12:00 07/13/22 12:00 07/13/22 14:00 Temperature Pulse Rate 80 67 Respiratory Rate Blood Pressure Pulse Oximetry 100 Oxygen Delivery Nasal Cannula Oxygen Flow Rate 1 Fraction of Inspired Oxygen 07/13/22 15:50 07/13/22 16:00 07/13/22 18:00 Temperature 97.5 F L Pulse Rate 67 67 66 Respiratory Rate 22 H Blood Pressure 114/43 L Pulse Oximetry 93 Oxygen Delivery Oxygen Flow Rate Fraction of Inspired Oxygen 07/13/22 16:00 07/13/22 20:18 07/13/22 20:15 Temperature Pulse Rate 65 Respiratory Rate 18 Blood Pressure Pulse Oximetry 93 94 Oxygen Delivery Nasal Cannula Nasal Cannula Oxygen Flow Rate 1 2 Fraction of Inspired Oxygen 07/13/22 20:00 07/13/22 20:00 07/13/22 20:00 Temperature 97.6 F Pulse Rate 65 62 62 Respiratory Rate 20 18 Blood Pressure 119/55 L Pulse Oximetry 97 94 Oxygen Delivery Nasal Cannula Oxygen Flow Rate 3 Fraction of Inspired Oxygen 28 07/13/22 22:00 07/13/22 23:30 07/14/22 00:00 Temperature 96.8 F L Pulse Rate 68 69 71 Respiratory Rate 20 Blood Pressure 138/52 L Pulse Oximetry 95 Oxygen Delivery Oxygen Flow Rate Fraction of Inspired Oxygen 07/14/22 00:00 07/14/22 02:50 07/14/22 02:51 Temperature Pulse Rate 69 69 69 Respiratory Rate 20 22 H 22 H Blood Pressure Pulse Oximetry 93 95 Oxygen Delivery Nasal Cannula BiPAP Oxygen Flow Rate 3 Fraction of Inspired Oxygen 28 07/13/22 20:32 07/14/22 02:00 07/14/22 02:00 Temperature Pulse Rate 69 68 68 Respiratory Rate 18 22 H Blood Pressure Pulse Oximetry 95 Oxygen Delivery BiPAP Oxygen Flow Rate Fraction of Inspired Oxygen 07/14/22 05:26 07/14/22 04:00 07/14/22 04:00 Temperature 97.8 F Pulse Rate 68 66 68 Respiratory R
--- NOTE | 2022-07-14 12:44 | PM.IMPN ---
Progress Note: A&P Assessment and Plan (1) Acute respiratory failure with hypoxemia: Code(s): J96.01 - Acute respiratory failure with hypoxia Status: Acute (2) Closed fracture of right proximal humerus: Qualifiers: Encounter type: subsequent encounter Fracture morphology: other fracture Fracture alignment: displaced Code(s): S42.201A - Unspecified fracture of upper end of right humerus, initial encounter for closed fracture Status: Acute (3) Rhabdomyolysis: Code(s): M62.82 - Rhabdomyolysis Status: Acute (4) Pneumonia: Code(s): J18.9 - Pneumonia, unspecified organism Status: Acute (5) Hypothyroidism: Code(s): E03.9 - Hypothyroidism, unspecified Status: Acute (6) Anemia: Code(s): D64.9 - Anemia, unspecified Status: Acute (7) Hyponatremia: Code(s): E87.1 - Hypo-osmolality and hyponatremia Status: Acute Plan 71-year-old male patient who has a history of having multiple falls.? The patient was seen in the emergency room on 06/23/2022 when [facility] and landed on his right shoulder sustaining a right humeral fracture. Patient presented again on 07/01/22 after being found down, noted to have rhabdomyolysis, now resolved. 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 Today, Na 129 MSSA Bacteremia: Unlikely that this is a contaminant / bld cx positive for MSSA Abx noted below repeat bld cx neg Leuk resolved MRSA cx negative Acute Respiratory Failure: Better overall. Able to wean off BIPAP Remains on 6L. Wean off O2 as tolerated Fluid in the flanks but no pedal edema. Check CXR. Aspiration PNA: Zosyn started 07/01, de-escalated to unasyn 07/05, worsened resp failure 07/06 concerning for HAP, broadened abx to vanc + cefepime, now improving, d/c vanc 07/11 End date for cefepime will be 07/15 to complete a 10 day course of appropriate abx therapy, possible pseudomonas since he worsened on unasyn? would avoid fluoroquinolones due to shoulder surgery and inc risk of tendon rupture. Remains on 6L. Wean off O2 as toelrated. COPD, not in exacerbation: C/w bronchodilators, completed 7 day course 07/07/22, do not suspect COPD exac Yeast isolated in sputum, suspect colonization, species came back Rosa albicans and tropicalis, will defer treatment at this time, no signs of fungal infection as patient is improving, no sign of abscess/empyema on CT chest Right Humerus Fracture: Appreciate Ortho help Up to chair, in sling POD ORIF humerus 07/12 Acute Anemia: Etiology probably related to the extensive bruising noted on exam. No obvious retroperitoneal bleed by CT CT abdomen/pelvis 07/06 remarkable for anasarca, no source of bleeding noted s/p 7 units pRBCs total; Last unit was 07/11 FOBT negative Holding ASA Appreciate hem/onc consult 07/07, flow cytometric analysis is negative Monitor closely Thrombocytopenia: Plt count low and up/down Monitor closely on Heparin Hypertension: Patient's blood pressure was reviewed on 07/14 Blood pressure remains well controlled. Will continue to monitor Frequent falls: ?orthostatic hypotension could also be 2/2 uncontrolled hypothyroidism cont PT/OT Hypothyroidism: elevated TSH noted, increased levothyroxine from 150 to 175 mcg. Recheck in 4-6 weeks outpatient Normally, TSH should be undetectable with hx of thyroid cancer. DVT ppx:SCD Code:Full Dispo:pending improvement Subjective Date/time seen: 07/14/22 12:44 Interval history: 71yo male with COPD, HTN, CAD, lung CA and thyroid CA here for weaknees and fall. He had fallen on 06/23 sustaining a right humeral fracture. Assuming care. Chart reviewed. Complains of right shoulder/arm pain. Currently on 6L - he does not wear O2 at home. States he was recently started on
[2022-07-14] MEDS: ESCITALOPRAM OXALATE 10 MG TABLET 20 MG PO (20:48)
[2022-07-15] VITALS (25 sets, daily range): BP systolic 107–154; BP diastolic 51–114; PULSE 64–79; RESP 18–28; TEMP 35.9–37.1; O2SAT 92–100
[2022-07-15] MEDS: ALBUTEROL SULFATE NEB 2.5 MG/3 ML INH 5 MG INHALATION ×4 (02:30→19:49)
[2022-07-15] MEDS: IPRATROPIUM BR 0.02% INH SOLN 0.5 MG/2.5 ML VIAL INHALATION ×4 (02:30→19:49)
[2022-07-15] MEDS: CENTRAL LINE FLUSH 10 ML IV PUSH ×3 (05:48→20:14)
[2022-07-15] MEDS: CEFEPIME 2 GM/NS 50 ML 2 GM/50 ML BAG IVPB (05:48)
[2022-07-15] MEDS: LEVOTHYROXINE SODIUM 150 MCG TABLET PO (05:49)
[2022-07-15] MEDS: LEVOTHYROXINE SODIUM 25 MCG TABLET PO (05:49)
[2022-07-15 06:34] LABS: Basophils Percent Auto 0.2 % (0.2-1.2); Eosinophils Percent Auto 0.7 % (0-4.4); Hematocrit 26.6 % (42.0-52.0); Hemoglobin 8.5 g/dL (14.0-18.0); Immature Granulocyte Percent A 1.6 % (0-0.5); Immature Platelet Fraction Pct 3.7 % (0.9-11.2); Lymphocytes Absolute Auto 0.42 K/mm3 (0.9-3.2); Lymphocytes Percent Auto 6.9 % (18.3-44.2); Mean Corpuscular Hemoglobin 29.8 pg (26-34); Mean Corpuscular Volume 93.3 fl (80-100); Mean Platelet Volume 9.6 fl (7.4-10.4); Monocytes Absolute Auto 0.5 K/mm3 (0.1-0.6); Monocytes Percent Auto 7.5 % (2.6-8.5); Neutrophils Absolute Auto 5.1 K/mm3 (1.3-6.7); Neutrophils Percent Auto 83.1 % (45.5-73.1); Platelet Count Result 102 k/mm3 (150-375); Red Blood Count 2.85 M/mm3 (4.6-6.20); Red Cell Distribution Width 17.8 % (11.5-14.5); White Blood Count 6.1 K/mm3 (4.5-10.0)
[2022-07-15 06:48] LABS: Alanine Aminotransferase 29 U/L (6-50); Albumin Level 2.8 g/dL (3.5-5.1); Alkaline Phosphatase 84 U/L (38-126); Anion Gap -4 mmol/L (8-16); Aspartate Amino Transferase 45 U/L (17-59); Bilirubin,Total 2.5 mg/dL (0.2-1.3); Blood Urea Nitrogen 9 mg/dL (9-20); Calcium 7.4 mg/dL (8.4-10.2); Carbon Dioxide 38 mmol/L (22-30); Chloride 92 mmol/L (98-107); Estimated CRCL calculation 146 ml/min; Estimated Glomerular Filt Rate > 60; Glucose 93 mg/dL (65-110); Magnesium 1.9 mg/dL (1.6-2.3); Phosphorus 2.4 mg/dL (2.5-4.5); Potassium 3.5 mmol/L (3.4-5.0); Sodium 126 mmol/L (137-145)
[2022-07-15] MEDS: FLUTICASONE/UMECLIDIN/VILANTER 100-62.5-25 MCG ELLIPTA 1 PUFF INHALATION (07:20)
[2022-07-15] MEDS: SIMVASTATIN 20 MG TABLET PO (10:15)
[2022-07-15] MEDS: SODIUM CHLORIDE 1 GM TABLET PO ×3 (10:19→17:03)
[2022-07-15] MEDS: PANTOPRAZOLE SODIUM IV 40 MG VIAL IV PUSH ×2 (10:22→20:13)
[2022-07-15] MEDS: RANOLAZINE 500 MG TAB.ER.12H PO ×2 (11:02→20:13)
[2022-07-15] MEDS: SILVERGEL (ELTA) 45 ML 1 APPLIC TOPICAL (11:30)
--- NOTE | 2022-07-15 12:05 | PM.PNORT ---
Progress Note: A&P Assessment and Plan (1) Closed fracture of right proximal humerus: Qualifiers: Encounter type: subsequent encounter Fracture morphology: other fracture Fracture alignment: displaced Code(s): S42.201A - Unspecified fracture of upper end of right humerus, initial encounter for closed fracture Status: Acute Plan 71-year-old male postop day three right proximal humerus fracture ORIF persistent serosanguineous drainage from the wound. Will change to a little bit bulkier dressing. Following. No change in orthopedic orders. Subjective Subjective Date/Time Seen: 07/15/22 12:05 Post Op day: 3 Principal diagnosis: Dx:Status post ORIF right proximal humerus fracture Interval history: 71-year-old male postop day three ORIF right proximal humerus fracture. Exam Const: General: cooperative, alert and awake Orientation/consciousness: patient oriented x3 Extrem: Other: Exam of Right shoulder wound shows moderate bloody drainage on the dressing. Bruising starting to resolve. No erythema. Grossly neurovascular status intact about the right shoulder. Objective Data Vital Signs Vital Signs: Vital Signs - 24 hr 07/14/22 14:00 07/14/22 14:50 07/14/22 14:53 Temperature Pulse Rate 68 68 68 Respiratory Rate 20 18 Blood Pressure Pulse Oximetry 95 Oxygen Delivery High Flow Nasal Cannula Oxygen Flow Rate 4 Fraction of Inspired Oxygen 07/14/22 15:00 07/14/22 15:58 07/14/22 16:00 Temperature 98.2 F Pulse Rate 66 66 69 Respiratory Rate 20 69 H Blood Pressure 110/49 L Pulse Oximetry 96 Oxygen Delivery Oxygen Flow Rate Fraction of Inspired Oxygen 07/14/22 16:00 07/14/22 18:00 07/14/22 16:32 Temperature Pulse Rate 69 Respiratory Rate Blood Pressure Pulse Oximetry 93 94 Oxygen Delivery High Flow Nasal Cannula High Flow Nasal Cannula Oxygen Flow Rate 6 4 Fraction of Inspired Oxygen 07/14/22 20:00 07/14/22 21:35 07/14/22 21:41 Temperature 97.9 F Pulse Rate 67 66 66 Respiratory Rate 26 H 20 Blood Pressure 125/61 Pulse Oximetry 96 95 Oxygen Delivery High Flow Nasal Cannula Oxygen Flow Rate 4 Fraction of Inspired Oxygen 07/14/22 21:48 07/14/22 20:00 07/14/22 20:00 Temperature Pulse Rate 65 68 Respiratory Rate 20 Blood Pressure Pulse Oximetry 93 Oxygen Delivery High Flow Nasal Cannula Oxygen Flow Rate 4 Fraction of Inspired Oxygen 07/15/22 00:00 07/15/22 00:00 07/15/22 02:30 Temperature Pulse Rate 64 71 Respiratory Rate 18 Blood Pressure Pulse Oximetry 94 Oxygen Delivery High Flow Nasal Cannula Oxygen Flow Rate 4 Fraction of Inspired Oxygen 07/15/22 02:18 07/15/22 02:40 07/15/22 04:00 Temperature Pulse Rate 67 69 66 Respiratory Rate 18 20 Blood Pressure Pulse Oximetry 94 97 Oxygen Delivery BiPAP BiPAP Oxygen Flow Rate Fraction of Inspired Oxygen 45 07/15/22 04:00 07/15/22 05:11 07/15/22 00:00 Temperature 97.7 F Pulse Rate 65 66 65 Respiratory Rate 18 20 Blood Pressure 136/58 L Pulse Oximetry 95 93 Oxygen Delivery BiPAP Oxygen Flow Rate Fraction of Inspired Oxygen 07/15/22 04:00 07/15/22 07:20 07/15/22 07:20 Temperature 97.6 F Pulse Rate 69 65 65 Respiratory Rate 18 18 18 Blood Pressure 138/77 Pulse Oximetry 95 92 Oxygen Delivery High Flow Nasal Cannula Oxygen Flow Rate 4 Fraction of Inspired Oxygen 07/15/22 07:30 07/15/22 08:00 07/15/22 08:00 Temperature 98.8 F 98.8 F Pulse Rate 68 68 68 Respiratory Rate 18 18 18 Blood Pressure 125/51 L 125/51 L Pulse Oximetry 94 94 Oxygen Delivery Oxygen Flow Rate Fraction of Inspired Oxygen 07/15/22 08:00 07/15/22 08:00 07/15/22 10:00 Temperature Pulse Rate 72 73 Respiratory Rate Blood Pressure Pulse Oximetry 94 Oxygen Delivery High Flow Nasal Cannula Oxygen Flow Rate 4 Fraction of Inspired Oxygen
[2022-07-15] MEDS: HYDROcodone/acetaminophen (*CRX) 5-325 MG TABLET 1 TAB PO ×2 (13:34→20:24)
--- NOTE | 2022-07-15 15:02 | PM.PNNEP ---
Progress Note: A&P Assessment and Plan (1) Hyponatremia: Code(s): E87.1 - Hypo-osmolality and hyponatremia Status: Acute Assessment and Plan: better/improving at this time acute on chronic issue baseline sodium seems to run around 129 - 134 at best multiple risk factors for hyponatremia: pneumonia lung disease (COPD) SSRI use (lexapro) PPI use (nexium) pain (from recent fall/trauma/fractures)? And narcotics hypothyroidism (restarted treatment on this admission) ? Serum osmolality similar to calculated.? Urine osmolality is high speech language pathology assistant with SIADH.cSPEP. UPEP ? Are normal urine electrolytes not prerenal hold off on checking cortisol - already on steroids on salt tablets and thickened liquids. sodium is down a little more at 126 He only had 800cc in yesterday. Recheck again tomorrow Continue same management (2) Acute respiratory failure with hypoxemia: Code(s): J96.01 - Acute respiratory failure with hypoxia Status: Acute Assessment and Plan: back on some oxygen. (3) Rhabdomyolysis: Code(s): M62.82 - Rhabdomyolysis Status: Acute Assessment and Plan: Improving (4) Anemia: Code(s): D64.9 - Anemia, unspecified Status: Acute Assessment and Plan: Hb stable in the 8s. (5) Pneumonia: Code(s): J18.9 - Pneumonia, unspecified organism Status: Acute Assessment and Plan: on atbs (6) COPD (chronic obstructive pulmonary disease): Qualifiers: COPD type: unspecified COPD Qualified Code(s): J44.9 - Chronic obstructive pulmonary disease, unspecified Code(s): J44.9 - Chronic obstructive pulmonary disease, unspecified Status: Acute Assessment and Plan: aspiration precautions (7) Closed fracture of right proximal humerus: Qualifiers: Encounter type: subsequent encounter Fracture morphology: other fracture Fracture alignment: displaced Code(s): S42.201A - Unspecified fracture of upper end of right humerus, initial encounter for closed fracture Status: Acute Assessment and Plan: ortho following status post surgery Subjective Date/time seen: 07/15/22 15:02 Interval history: Patient is lying flat in bed. he still has a cough. He is on some oxygen still. Exam Narrative: WDWN in NAD skin no rash head ncat lungs Mildly coarse upper airway noise cor reg no rub or gallop abd BS+ nontender and soft ext no edema or cyanosis. Objective Data Vital Signs Vital Signs: Vital Signs - 24 hr 07/14/22 15:58 07/14/22 16:00 07/14/22 16:00 Temperature 98.2 F Pulse Rate 66 69 Respiratory Rate 69 H Blood Pressure 110/49 L Pulse Oximetry 96 93 Oxygen Delivery High Flow Nasal Cannula Oxygen Flow Rate 6 Fraction of Inspired Oxygen 07/14/22 18:00 07/14/22 16:32 07/14/22 20:00 Temperature 97.9 F Pulse Rate 69 67 Respiratory Rate 26 H Blood Pressure 125/61 Pulse Oximetry 94 96 Oxygen Delivery High Flow Nasal Cannula Oxygen Flow Rate 4 Fraction of Inspired Oxygen 07/14/22 21:35 07/14/22 21:41 07/14/22 21:48 Temperature Pulse Rate 66 66 65 Respiratory Rate 20 20 Blood Pressure Pulse Oximetry 95 Oxygen Delivery High Flow Nasal Cannula Oxygen Flow Rate 4 Fraction of Inspired Oxygen 07/14/22 20:00 07/14/22 20:00 07/15/22 00:00 Temperature Pulse Rate 68 Respiratory Rate Blood Pressure Pulse Oximetry 93 94 Oxygen Delivery High Flow Nasal Cannula High Flow Nasal Cannula Oxygen Flow Rate 4 4 Fraction of Inspired Oxygen 07/15/22 00:00 07/15/22 02:30 07/15/22 02:18 Temperature Pulse Rate 64 71 67 Respiratory Rate 18 18 Blood Pressure Pulse Oximetry 94 Oxygen Delivery BiPAP Oxygen Flow Rate Fraction of Inspired Oxygen 07/15/22 02:40 07/15/22 04:00 07/15/22 04:00 Temperature Pulse Rate 69 66 65 Respiratory Rate
--- NOTE | 2022-07-15 15:58 | PM.IMPN ---
Progress Note: A&P Assessment and Plan (1) Acute respiratory failure with hypoxemia: Code(s): J96.01 - Acute respiratory failure with hypoxia Status: Acute (2) Closed fracture of right proximal humerus: Qualifiers: Encounter type: subsequent encounter Fracture morphology: other fracture Fracture alignment: displaced Code(s): S42.201A - Unspecified fracture of upper end of right humerus, initial encounter for closed fracture Status: Acute (3) Rhabdomyolysis: Code(s): M62.82 - Rhabdomyolysis Status: Acute (4) Pneumonia: Code(s): J18.9 - Pneumonia, unspecified organism Status: Acute (5) Hypothyroidism: Code(s): E03.9 - Hypothyroidism, unspecified Status: Acute (6) Anemia: Code(s): D64.9 - Anemia, unspecified Status: Acute (7) Hyponatremia: Code(s): E87.1 - Hypo-osmolality and hyponatremia Status: Acute Plan 71-year-old male patient who has a history of having multiple falls.? The patient was seen in the emergency room on 06/23/2022 when he fell in the parking lot at [employer] and landed on his right shoulder sustaining a right humeral fracture. Patient presented again on 07/01/22 after being found down, noted to have rhabdomyolysis. Right Humerus Fracture: Post-op ORIF R humerus fracture 07/12. Continue current wound care. Therapy ordered. 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 Currently on sodium chloride tabs 1g TID Baseline 129-134. Today, Na 126. Related to fluid overload? MSSA Bacteremia: Unlikely that this is a contaminant with 1/ bld cx positive for MSSA Abx noted below. Repeat bld cx negative. WBC normal now. MRSA cx negative. Abx have been completed. Acute Respiratory Failure: Better overall. Able to wean off BIPAP during the day. [place] related to PNA. Fluid in the flanks. BNP 1100 on admission. CXR 07/14 showing perihilar bilateral airspace opacities. O2 requirement improving and now down to 4L. Continue BiPAP at night and with naps. Wean off O2 as tolerated Lasix once. Aspiration PNA: Zosyn started 07/01, de-escalated to unasyn 07/05, worsened resp failure 07/06 concerning for HAP so broadened abx to vanc + cefepime, now improving, d/c vanc 07/11. Completed cefepime 07/15 to complete a 10 day course Wean off O2 as tolerated. Remains on 4L COPD, not in exacerbation: C/w bronchodilators, completed 7 day course 07/07/22, do not suspect COPD exac Yeast isolated in sputum, suspect colonization, species came back Rosa albicans and tropicalis, will defer treatment at this time, no signs of fungal infection as patient is improving, no sign of abscess/empyema on CT chest Acute Anemia: Etiology probably related to the extensive bruising noted on exam. No obvious retroperitoneal bleed by CT CT abdomen/pelvis 07/06 remarkable for anasarca, no source of bleeding noted s/p 7 units pRBCs total; Last unit was 07/11 FOBT negative Holding ASA Appreciate hem/onc consult 07/07, flow cytometric analysis is negative Monitor closely Thrombocytopenia: Plt count low and up/down Monitor closely on Heparin Hypertension: Patient's blood pressure was reviewed on 07/15 Blood pressure remains well controlled. Will continue to monitor Frequent falls: ?orthostatic hypotension could also be 2/2 uncontrolled hypothyroidism cont PT/OT Hypothyroidism: elevated TSH noted, increased levothyroxine from 150 to 175 mcg. Recheck in 4-6 weeks outpatient Normally, TSH should be undetectable with hx of thyroid cancer. DVT ppx:SCD Code:Full Dispo:pending improvement Subjective Date/time seen: 07/15/22 15:58 Interval history: 71yo male with COPD, HTN, CAD, lung CA and thyroid CA here for weakness and fall. He had fallen on 06/23 sustaining a right humeral fracture. Tolerated the bipap last night. Was able to get out of bed to the chair today. He feels short of arie
[2022-07-15] MEDS: FUROSEMIDE INJ 40 MG/4 ML VIAL IV PUSH (17:03)
[2022-07-15] MEDS: POTASSIUM/PHOSPHORUS/SODIUM 1.5 GM PACKET 1 PACKET PO (17:03)
[2022-07-15] MEDS: HEPARIN SODIUM 5,000 UNITS/ML VIAL 5000 UNITS SUB-Q (20:12)
[2022-07-15] MEDS: ESCITALOPRAM OXALATE 10 MG TABLET 20 MG PO (20:13)
[2022-07-15] MEDS: CENTRAL LINE FLUSH 20 ML IV PUSH (20:14)
[2022-07-16] VITALS (24 sets, daily range): BP systolic 123–193; BP diastolic 62–156; PULSE 63–94; RESP 16–22; TEMP 36.2–36.9; O2SAT 92–98
[2022-07-16] MEDS: IPRATROPIUM BR 0.02% INH SOLN 0.5 MG/2.5 ML VIAL INHALATION ×4 (02:33→20:44)
[2022-07-16] MEDS: ALBUTEROL SULFATE NEB 2.5 MG/3 ML INH 5 MG INHALATION ×4 (02:33→20:44)
[2022-07-16] MEDS: LEVOTHYROXINE SODIUM 150 MCG TABLET PO (05:41)
[2022-07-16] MEDS: LEVOTHYROXINE SODIUM 25 MCG TABLET PO (05:41)
[2022-07-16] MEDS: CENTRAL LINE FLUSH 10 ML IV PUSH ×3 (05:42→22:05)
[2022-07-16 07:17] LABS: Basophils Percent Auto 0.2 % (0.2-1.2); Eosinophils Absolute Auto 0.1 K/mm3 (0-0.3); Eosinophils Percent Auto 1.4 % (0-4.4); Hematocrit 27.1 % (42.0-52.0); Hemoglobin 8.8 g/dL (14.0-18.0); Immature Granulocyte Absolute 0.04 K/mm3 (0.00-0.031); Immature Granulocyte Percent A 0.7 % (0-0.5); Lymphocytes Absolute Auto 0.43 K/mm3 (0.9-3.2); Lymphocytes Percent Auto 7.3 % (18.3-44.2); Mean Corpuscular HGB Conc 32.5 g/dl (32-36); Mean Corpuscular Hemoglobin 30.8 pg (26-34); Mean Corpuscular Volume 94.8 fl (80-100); Mean Platelet Volume 10.1 fl (7.4-10.4); Monocytes Absolute Auto 0.3 K/mm3 (0.1-0.6); Monocytes Percent Auto 5.1 % (2.6-8.5); Neutrophils Percent Auto 85.3 % (45.5-73.1); Platelet Count Result 104 k/mm3 (150-375); Red Blood Count 2.86 M/mm3 (4.6-6.20); Red Cell Distribution Width 17.9 % (11.5-14.5); White Blood Count 5.9 K/mm3 (4.5-10.0)
[2022-07-16 07:24] LABS: Alanine Aminotransferase 30 U/L (6-50); Albumin Level 2.8 g/dL (3.5-5.1); Alkaline Phosphatase 94 U/L (38-126); Anion Gap -2 mmol/L (8-16); Aspartate Amino Transferase 41 U/L (17-59); Bilirubin,Total 3.5 mg/dL (0.2-1.3); Blood Urea Nitrogen 8 mg/dL (9-20); Calcium 7.2 mg/dL (8.4-10.2); Carbon Dioxide 39 mmol/L (22-30); Chloride 93 mmol/L (98-107); Estimated CRCL calculation 120 ml/min; Estimated Glomerular Filt Rate > 60; Glucose 104 mg/dL (65-110); Magnesium 1.8 mg/dL (1.6-2.3); Phosphorus 2.5 mg/dL (2.5-4.5); Potassium 2.9 mmol/L (3.4-5.0); Sodium 130 mmol/L (137-145)
--- NOTE | 2022-07-16 07:56 | PC.NURSE ---
K 2.9, NA 130, Mag 1.[address] Yu.
[2022-07-16] MEDS: FLUTICASONE/UMECLIDIN/VILANTER 100-62.5-25 MCG ELLIPTA 1 PUFF INHALATION (09:05)
--- NOTE | 2022-07-16 09:19 | PM.PNNEP ---
Progress Note: A&P Assessment and Plan (1) Hyponatremia: Code(s): E87.1 - Hypo-osmolality and hyponatremia Status: Acute Assessment and Plan: acute on chronic issue baseline sodium seems to run around 129 - 134 at best multiple risk factors for hyponatremia: pneumonia lung disease (COPD) SSRI use (lexapro) PPI use (nexium) pain (from recent fall/trauma/fractures)? And narcotics hypothyroidism (restarted treatment on this admission) ? Serum osmolality similar to calculated.? Urine osmolality is high diet assistant with SIADH.cSPEP. UPEP ? Are normal urine electrolytes not prerenal hold off on checking cortisol - already on steroids on salt tablets and thickened liquids. sodium is up and down. Today it is 130. No changes on approach, i.e. will continue fluid restriction. He is on some oxygen now. He did receive dose of furosemide last night will go ahead and give routine po furosemide plus salt tablets to try to get rid of the oxygen. (2) Acute respiratory failure with hypoxemia: Code(s): J96.01 - Acute respiratory failure with hypoxia Status: Acute Assessment and Plan: back on some oxygen. He receives some IV diuretics yesterday He looks a little better today. But still coughing. Will give p.o. Lasix possible tablets to diurese and hopefully the sodium low stay in the current range with the salt tablets. (3) Rhabdomyolysis: Code(s): M62.82 - Rhabdomyolysis Status: Acute Assessment and Plan: Improving (4) Anemia: Code(s): D64.9 - Anemia, unspecified Status: Acute Assessment and Plan: Hb stable in the 8s. (5) Pneumonia: Code(s): J18.9 - Pneumonia, unspecified organism Status: Acute Assessment and Plan: on atbs (6) COPD (chronic obstructive pulmonary disease): Qualifiers: COPD type: unspecified COPD Qualified Code(s): J44.9 - Chronic obstructive pulmonary disease, unspecified Code(s): J44.9 - Chronic obstructive pulmonary disease, unspecified Status: Acute Assessment and Plan: aspiration precautions (7) Closed fracture of right proximal humerus: Qualifiers: Encounter type: subsequent encounter Fracture morphology: other fracture Fracture alignment: displaced Code(s): S42.201A - Unspecified fracture of upper end of right humerus, initial encounter for closed fracture Status: Acute Assessment and Plan: ortho following status post surgery Subjective Date/time seen: 07/16/22 09:19 Interval history: Patient is lying flat in bed. he still has a cough. He is on some oxygen still. Exam Narrative: WDWN in NAD skin no rash head ncat lungs Mildly coarse upper airway noise cor reg no rub abd BS+ nontender ext no edema or cyanosis. Objective Data Vital Signs Vital Signs: Vital Signs - 24 hr 07/15/22 10:00 07/15/22 11:50 07/15/22 12:00 Temperature 98.7 F Pulse Rate 73 71 Respiratory Rate 18 Blood Pressure 126/57 L Pulse Oximetry 95 94 Oxygen Delivery High Flow Nasal Cannula Oxygen Flow Rate 4 07/15/22 12:00 07/15/22 13:10 07/15/22 13:20 Temperature Pulse Rate 74 65 67 Respiratory Rate 18 18 Blood Pressure Pulse Oximetry Oxygen Delivery Oxygen Flow Rate 07/15/22 14:00 07/15/22 16:41 07/15/22 18:20 Temperature 98.5 F 96.9 F L Pulse Rate 79 67 70 Respiratory Rate 20 22 H Blood Pressure 118/71 137/82 Pulse Oximetry 99 96 Oxygen Delivery Oxygen Flow Rate 07/15/22 16:00 07/15/22 18:21 07/15/22 18:21 Temperature Pulse Rate 69 71 Respiratory Rate Blood Pressure 107/70 154/114 H Pulse Oximetry 94 96 95 Oxygen Delivery High Flow Nasal Cannula Oxygen Flow Rate 2 07/15/22 16:00 07/15/22 18:00 07/15/22 19:49 Temperature Pulse Rate 67 68 70 Respiratory Rate Blood Pressure Pulse Oximetry 95 Oxygen Delivery High Flow Nasal
[2022-07-16] MEDS: MAGNESIUM SULF 2 GM/WATER 50ML 2 GM/50 ML BAG IVPB (09:26)
[2022-07-16] MEDS: PANTOPRAZOLE SODIUM IV 40 MG VIAL IV PUSH ×2 (09:38→22:05)
[2022-07-16] MEDS: RANOLAZINE 500 MG TAB.ER.12H PO ×2 (09:49→22:05)
[2022-07-16] MEDS: SCOPOLAMINE 1.5 MG PATCH TRANSDERM (09:54)
[2022-07-16] MEDS: SIMVASTATIN 20 MG TABLET PO (09:56)
[2022-07-16] MEDS: SODIUM CHLORIDE 1 GM TABLET PO ×4 (10:00→16:21)
--- NOTE | 2022-07-16 10:59 | PCNFU ---
Nutrition Follow-Up Complete: Mild malnutrition related to acute illness as evidenced by poor intake, reduced functional status Goal: Improved PO intake to at least 50% meals and supplements - Goal being met Pt current nutrition is Heart healthy, minced& moist, mildly thick liquids. Intakes are 50-100% Nutrition recommendation: Continue current nutrition care plan and monitoring Last recorded weight is 82.9 kg. Bowel Motility: Last BM 07/07/22. RN will address with MD Labs Reviewed: Hgb 8.8, Hct 27.1, Alb 2.8, Na 130, K+ 2.9, Cr 0.5 Meds Noted: Protonix, [place], Lasix, Zofran Skin: Skin tears Additional Notes: Intakes improving. On thickened liquids for swallowing. Progressing toward goals. Keep same goals. Agree with orders. Monitor intakes, weights, labs, supplement tolerance, plan of care Follow up in 3 days
--- NOTE | 2022-07-16 11:05 | PM.PNORT ---
Progress Note: A&P Assessment and Plan (1) Closed fracture of right proximal humerus: Qualifiers: Encounter type: subsequent encounter Fracture morphology: other fracture Fracture alignment: displaced Code(s): S42.201A - Unspecified fracture of upper end of right humerus, initial encounter for closed fracture Status: Acute Plan 71-year-old male postop day 4 right proximal humerus fracture . Serosanguineous drainage from the wound is much improved today. Continue nonweightbearing status of the right upper extremity. He will need suture removal with new x-ray of the right shoulder in 2 weeks. if this can be done at the rehab facility, they can certainly do that there. If not we will need to schedule appointment for follow-up in 2 weeks. Following. Subjective Subjective Date/Time Seen: 07/16/22 11:05 Post Op day: 4 Principal diagnosis: Status post ORIF right proximal humerus fracture Interval history: 71-year-old male postop day 4 ORIF right proximal humerus fracture. no new complaints. Still has pain into the right shoulder. He continues to use the sling without difficulty. Review of Systems Constitutional: Constitutional: Reports as per HPI and Reports no additional constitutional complaints Musculoskeletal: Musculoskeletal: Reports no additional musculoskeletal complaints and Reports as per HPI Exam Const: General: cooperative, alert and awake Orientation/consciousness: patient oriented x3 Resp: Effort & Inspection: normal respiratory effort Skin: General skin exam: ecchymosis ( Ecchymosis throughout the entire right upper extremity, Improving) Extrem: Other: Exam of the right shoulder demonstrates mild drainage through the dressing. much improved from yesterday. No erythema. 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 Neurovascular status right upper extremity intact. Psych: Mental Status: mental status grossly normal Objective Data Vital Signs Vital Signs: Vital Signs - 24 hr 07/15/22 11:50 07/15/22 12:00 07/15/22 12:00 Temperature 98.7 F Pulse Rate 71 74 Respiratory Rate 18 Blood Pressure 126/57 L Pulse Oximetry 95 94 Oxygen Delivery High Flow Nasal Cannula Oxygen Flow Rate 4 07/15/22 13:10 07/15/22 13:20 07/15/22 14:00 Temperature Pulse Rate 65 67 79 Respiratory Rate 18 18 Blood Pressure Pulse Oximetry Oxygen Delivery Oxygen Flow Rate 07/15/22 16:41 07/15/22 18:20 07/15/22 16:00 Temperature 98.5 F 96.9 F L Pulse Rate 67 70 Respiratory Rate 20 22 H Blood Pressure 118/71 137/82 Pulse Oximetry 99 96 94 Oxygen Delivery High Flow Nasal Cannula Oxygen Flow Rate 2 07/15/22 18:21 07/15/22 18:21 07/15/22 16:00 Temperature Pulse Rate 69 71 67 Respiratory Rate Blood Pressure 107/70 154/114 H Pulse Oximetry 96 95 Oxygen Delivery Oxygen Flow Rate 07/15/22 18:00 07/15/22 19:49 07/15/22 19:49 Temperature Pulse Rate 68 70 70 Respiratory Rate 28 H Blood Pressure Pulse Oximetry 95 Oxygen Delivery High Flow Nasal Cannula Oxygen Flow Rate 2 07/15/22 20:19 07/15/22 20:00 07/15/22 20:00 Temperature 97.4 F L Pulse Rate 71 67 65 Respiratory Rate 22 H 20 Blood Pressure 113/58 L Pulse Oximetry 100 Oxygen Delivery Oxygen Flow Rate 07/15/22 20:00 07/15/22 22:00 07/15/22 23:54 Temperature 96.7 F L Pulse Rate 70 69 Respiratory Rate 20 Blood Pressure 117/54 L Pulse Oximetry 95 97 Oxygen Delivery High Flow Nasal Cannula Oxygen Flow Rate 2 07/16/22 02:30 07/16/22 02:46 07/16/22 04:00 Temperature 98.4 F Pulse Rate 64 63 67 Respiratory Rate 20 20 20 Blood Pressure 123/63 Pulse Oximetry 92 Oxygen Delivery Oxygen Flow Rate 07/16/22 00:00 07/16/22 00:00 07/16/22 04:00 Temperature Pulse Rate 67 65 Respiratory Rate Blood Pressure Pulse Oximetry 95 Oxygen Delivery High Flow Nasal Cannula Oxygen Flow Ra
[2022-07-16] MEDS: SILVERGEL (ELTA) 45 ML 1 APPLIC TOPICAL (11:49)
[2022-07-16] MEDS: HYDROcodone/acetaminophen (*CRX) 5-325 MG TABLET 1 TAB PO ×3 (11:56→22:04)
[2022-07-16] MEDS: FUROSEMIDE 40 MG TABLET PO (12:08)
[2022-07-16] MEDS: HEPARIN SODIUM 5,000 UNITS/ML VIAL 5000 UNITS SUB-Q ×2 (12:12→22:05)
[2022-07-16] MEDS: POTASSIUM CHLORIDE 20 MEQ PACKET (FOR LIQUID) 40 MEQ PO ×2 (12:40→16:21)
--- NOTE | 2022-07-16 13:41 | PCPTNOTE ---
Attempted to see patient for PT, however patient was out of room for a procedure.
--- NOTE | 2022-07-16 16:58 | PM.IMPN ---
Progress Note: A&P Assessment and Plan (1) Acute respiratory failure with hypoxemia: Code(s): J96.01 - Acute respiratory failure with hypoxia Status: Acute (2) Closed fracture of right proximal humerus: Qualifiers: Encounter type: subsequent encounter Fracture alignment: displaced Fracture morphology: other fracture Code(s): S42.201A - Unspecified fracture of upper end of right humerus, initial encounter for closed fracture Status: Acute (3) Rhabdomyolysis: Code(s): M62.82 - Rhabdomyolysis Status: Acute (4) Pneumonia: Code(s): J18.9 - Pneumonia, unspecified organism Status: Acute (5) Hypothyroidism: Code(s): E03.9 - Hypothyroidism, unspecified Status: Acute (6) Anemia: Code(s): D64.9 - Anemia, unspecified Status: Acute (7) Hyponatremia: Code(s): E87.1 - Hypo-osmolality and hyponatremia Status: Acute Plan 71-year-old male patient who has a history of having multiple falls.? The patient was seen in the emergency room on 06/23/2022 when he fell in the parking lot at [employer] and landed on his right shoulder sustaining a right humeral fracture. Patient presented again on 07/01/22 after being found down, noted to have rhabdomyolysis. Odd mentation could be related to narcotics will push to have him use Tylenol more often Right Humerus Fracture: Post-op ORIF R humerus fracture 07/12. Continue current wound care. Therapy ordered. 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 Currently on sodium chloride tabs 1g TID; extra 1gm added today Baseline 129-134. Today, Na better at 130 felt related to fluid overload MSSA Bacteremia: Unlikely that this is a contaminant with 1/4 bld cx positive for MSSA Abx noted below. Repeat bld cx negative. WBC normal now. MRSA cx negative. Abx have been completed. Acute Respiratory Failure: Better overall. Able to wean off BIPAP during the day. [place] related to PNA. Fluid in the flanks. BNP 1100 on admission. CXR 07/14 showing perihilar bilateral airspace opacities. O2 requirement improving and now down to 2L. Continue BiPAP at night and with naps. Wean off O2 as tolerated Lasix started Aspiration PNA: Zosyn started 07/01, de-escalated to unasyn 07/05, worsened resp failure 07/06 concerning for HAP so broadened abx to vanc + cefepime, now improving, d/c vanc 07/11. Completed cefepime 07/15 to complete a 10 day course Wean off O2 as tolerated. Remains on 2L Repeat MBS noted. Continue thickened liquids. COPD, not in exacerbation: C/w bronchodilators, completed 7 day course 07/07/22, do not suspect COPD exac Yeast isolated in sputum, suspect colonization, species came back Roas albicans and tropicalis, will defer treatment at this time, no signs of fungal infection as patient is improving, no sign of abscess/empyema on CT chest Acute Anemia: Etiology probably related to the extensive bruising noted on exam. No obvious retroperitoneal bleed by CT CT abdomen/pelvis 07/06 remarkable for anasarca, no source of bleeding noted s/p 7 units pRBCs total; Last unit was 07/11 FOBT negative Holding ASA Appreciate hem/onc consult 07/07, flow cytometric analysis is negative Monitor closely Thrombocytopenia: Plt count low and up/down Monitor closely on Heparin Hypertension: Patient's blood pressure was reviewed on 07/16 Blood pressure remains well controlled. Will continue to monitor Frequent falls: ?orthostatic hypotension could also be 2/2 uncontrolled hypothyroidism cont PT/OT Hypothyroidism: elevated TSH noted, increased levothyroxine from 150 to 175 mcg. Recheck in 4-6 weeks outpatient Normally, TSH should be undetectable with hx of thyroid cancer. DVT ppx: Heparin Code:Full Dispo: okay for discharge to SNF when okay with others Subjective Date/time seen: 07/16/22 16:58 Interval history: 71yo male with COPD, HTN, CAD, lung
[2022-07-16] MEDS: polyethylene glycoL 3350 17 GM POWD.PACK PO (22:04)
[2022-07-16] MEDS: ESCITALOPRAM OXALATE 10 MG TABLET 20 MG PO (22:04)
[2022-07-17] VITALS (16 sets, daily range): BP systolic 129–154; BP diastolic 57–75; PULSE 62–121; RESP 16–20; TEMP 36.4–37.1; O2SAT 94–98
[2022-07-17] MEDS: ALBUTEROL SULFATE NEB 2.5 MG/3 ML INH 5 MG INHALATION ×2 (02:01→21:29)
[2022-07-17] MEDS: IPRATROPIUM BR 0.02% INH SOLN 0.5 MG/2.5 ML VIAL INHALATION ×2 (02:01→21:28)
[2022-07-17] MEDS: CENTRAL LINE FLUSH 10 ML IV PUSH ×3 (04:20→21:42)
[2022-07-17 04:35] LABS: Alanine Aminotransferase 28 U/L (6-50); Albumin Level 2.8 g/dL (3.5-5.1); Alkaline Phosphatase 92 U/L (38-126); Anion Gap -2 mmol/L (8-16); Aspartate Amino Transferase 37 U/L (17-59); Bilirubin,Total 3.1 mg/dL (0.2-1.3); Blood Urea Nitrogen 6 mg/dL (9-20); Calcium 7.1 mg/dL (8.4-10.2); Carbon Dioxide 36 mmol/L (22-30); Chloride 93 mmol/L (98-107); Estimated CRCL calculation 146 ml/min; Estimated Glomerular Filt Rate > 60; Glucose 89 mg/dL (65-110); Potassium 3.5 mmol/L (3.4-5.0); Sodium 127 mmol/L (137-145)
[2022-07-17 05:07] LABS: Basophils Percent Auto 0.3 % (0.2-1.2); Eosinophils Absolute Auto 0.1 K/mm3 (0-0.3); Eosinophils Percent Auto 1.3 % (0-4.4); Hematocrit 25.7 % (42.0-52.0); Hemoglobin 8.3 g/dL (14.0-18.0); Immature Granulocyte Absolute 0.06 K/mm3 (0.00-0.031); Immature Platelet Fraction Pct 5.1 % (0.9-11.2); Lymphocytes Absolute Auto 0.62 K/mm3 (0.9-3.2); Lymphocytes Percent Auto 10.3 % (18.3-44.2); Mean Corpuscular HGB Conc 32.3 g/dl (32-36); Mean Corpuscular Hemoglobin 30.5 pg (26-34); Mean Corpuscular Volume 94.5 fl (80-100); Mean Platelet Volume 10.4 fl (7.4-10.4); Monocytes Absolute Auto 0.4 K/mm3 (0.1-0.6); Monocytes Percent Auto 5.8 % (2.6-8.5); Neutrophils Absolute Auto 4.9 K/mm3 (1.3-6.7); Neutrophils Percent Auto 81.3 % (45.5-73.1); Platelet Count Result 82 k/mm3 (150-375); Red Blood Count 2.72 M/mm3 (4.6-6.20); Red Cell Distribution Width 18.6 % (11.5-14.5)
[2022-07-17] MEDS: ALTEPLASE 2 MG VIAL (CATHFLO) IV PUSH (05:31)
[2022-07-17] MEDS: LEVOTHYROXINE SODIUM 150 MCG TABLET PO (05:41)
[2022-07-17] MEDS: LEVOTHYROXINE SODIUM 25 MCG TABLET PO (05:41)
--- NOTE | 2022-07-17 09:20 | PM.PNNEP ---
Progress Note: A&P Assessment and Plan (1) Hyponatremia: Code(s): E87.1 - Hypo-osmolality and hyponatremia Status: Acute Assessment and Plan: Sodium level 127 today. Will continue Lasix plus salt tablet with each dose of Lasix. Discontinue the other doses. (2) Acute respiratory failure with hypoxemia: Code(s): J96.01 - Acute respiratory failure with hypoxia Status: Acute Assessment and Plan: This is looking better. He has some swelling. Continue diuretics. (3) Rhabdomyolysis: Code(s): M62.82 - Rhabdomyolysis Status: Acute Assessment and Plan: CK has been improving (4) Anemia: Code(s): D64.9 - Anemia, unspecified Status: Acute Assessment and Plan: Hemoglobin ranging in the 8s. (5) Pneumonia: Code(s): J18.9 - Pneumonia, unspecified organism Status: Acute Assessment and Plan: Antibiotics ran their course (6) COPD (chronic obstructive pulmonary disease): Qualifiers: COPD type: unspecified COPD Qualified Code(s): J44.9 - Chronic obstructive pulmonary disease, unspecified Code(s): J44.9 - Chronic obstructive pulmonary disease, unspecified Status: Acute Assessment and Plan: Compensated (7) Closed fracture of right proximal humerus: Qualifiers: Encounter type: subsequent encounter Fracture morphology: other fracture Fracture alignment: displaced Code(s): S42.201A - Unspecified fracture of upper end of right humerus, initial encounter for closed fracture Status: Acute Assessment and Plan: Status post surgery Subjective Date/time seen: 07/17/22 09:20 Interval history: Patient is a little confused. No shortness of breath. Review of Systems Cardiovascular: Cardiovascular: Reports no additional cardiovascular complaints Respiratory: Respiratory: Reports no additional respiratory complaints Gastrointestinal: Gastrointestinal: Reports no additional gastrointestinal complaints Genitourinary: Genitourinary: Reports no additional male genitourinary complaints Exam Narrative: WDWN in NAD skin no rash head ncat lungs decreased breath sounds at the bases cor reg no rub abd BS+ nontender and soft ext 1+ presacral edema. Objective Data Vital Signs Vital Signs: Vital Signs - 24 hr 07/16/22 12:00 07/16/22 14:03 07/16/22 14:20 Temperature 98.2 F Pulse Rate 68 73 69 Respiratory Rate 22 H 18 18 Blood Pressure 136/68 Pulse Oximetry 96 Oxygen Delivery Oxygen Flow Rate 07/16/22 16:00 07/16/22 12:00 07/16/22 16:00 Temperature 98.1 F Pulse Rate 66 Respiratory Rate 20 Blood Pressure 137/67 Pulse Oximetry 98 97 98 Oxygen Delivery High Flow Nasal Cannula High Flow Nasal Cannula Oxygen Flow Rate 2 2 07/16/22 10:00 07/16/22 12:00 07/16/22 14:00 Temperature Pulse Rate 71 68 75 Respiratory Rate Blood Pressure Pulse Oximetry Oxygen Delivery Oxygen Flow Rate 07/16/22 16:00 07/16/22 18:00 07/16/22 20:00 Temperature 97.2 F L Pulse Rate 69 94 66 Respiratory Rate 20 Blood Pressure 127/62 Pulse Oximetry 93 Oxygen Delivery Oxygen Flow Rate 07/16/22 20:00 07/16/22 20:02 07/16/22 20:04 Temperature Pulse Rate Respiratory Rate Blood Pressure 127/62 169/105 H 193/156 H Pulse Oximetry Oxygen Delivery Oxygen Flow Rate 07/16/22 20:00 07/16/22 22:00 07/17/22 00:00 Temperature Pulse Rate 66 67 62 Respiratory Rate Blood Pressure Pulse Oximetry Oxygen Delivery Oxygen Flow Rate 07/17/22 00:00 07/16/22 20:00 07/17/22 00:00 Temperature 97.7 F Pulse Rate 66 Respiratory Rate 16 Blood Pressure 137/75 Pulse Oximetry 96 96 96 Oxygen Delivery High Flow Nasal Cannula High Flow Nasal Cannula Oxygen Flow Rate 2 2 07/16/22 20:46 07/16/22 20:56 07/16/22 20:56 Temperature Pulse Rate 68 65 65 Respiratory Rate 16 18 16
[2022-07-17] MEDS: RANOLAZINE 500 MG TAB.ER.12H PO ×2 (09:57→21:41)
[2022-07-17] MEDS: SODIUM CHLORIDE 1 GM TABLET PO (09:57)
[2022-07-17] MEDS: polyethylene glycoL 3350 17 GM POWD.PACK PO (09:57)
[2022-07-17] MEDS: PANTOPRAZOLE SODIUM IV 40 MG VIAL IV PUSH ×2 (09:57→21:40)
[2022-07-17] MEDS: SIMVASTATIN 20 MG TABLET PO (09:57)
[2022-07-17] MEDS: FUROSEMIDE 40 MG TABLET PO (10:00)
[2022-07-17] MEDS: SILVERGEL (ELTA) 45 ML 1 APPLIC TOPICAL (10:02)
[2022-07-17 10:56] LABS: Bilirubin Indirect 2.8 mg/dL (0-1.1)
--- NOTE | 2022-07-17 12:14 | PM.PNORT ---
Progress Note: A&P Assessment and Plan (1) Closed fracture of right proximal humerus: Qualifiers: Encounter type: subsequent encounter Fracture morphology: other fracture Fracture alignment: displaced Code(s): S42.201A - Unspecified fracture of upper end of right humerus, initial encounter for closed fracture Status: Acute Assessment and Plan: 71-year-old male postop day five ORIF right proximal humerus fracture. I had her stand he is going to be discharged soon. His sutures can be removed in the nursing facility on 07/27. No change in his activity orders with respect to the right upper extremity. Will have them get humerus x-rays in a couple of weeks when the sutures are out. We will give further recommendations based on with those x-rays show. Subjective Subjective Date/Time Seen: 07/17/22 12:14 Post Op day: 5 Principal diagnosis: Dx: ORIF right proximal humerus fracture Interval history: 71-year-old male postop day five ORIF right proximal humerus fracture. Exam Const: General: cooperative, alert and awake Orientation/consciousness: patient oriented x3 HENMT: Head: normal to inspection Ears: hearing grossly normal bilaterally Resp: Effort & Inspection: able to speak in complete sentences Neuro: General: patient oriented x3 Extrem: Other: Exam of the right shoulder shows dry incision. Still has extensive bruising but is slowly resolving. Grossly motor and sensory function right upper extremity is intact. Psych: Mental Status: mental status grossly normal Objective Data Vital Signs Vital Signs: Vital Signs - 24 hr 07/16/22 14:03 07/16/22 14:20 07/16/22 16:00 Temperature 98.1 F Pulse Rate 73 69 66 Respiratory Rate 18 18 20 Blood Pressure 137/67 Pulse Oximetry 98 Oxygen Delivery Oxygen Flow Rate 07/16/22 16:00 07/16/22 14:00 07/16/22 16:00 Temperature Pulse Rate 75 69 Respiratory Rate Blood Pressure Pulse Oximetry 98 Oxygen Delivery High Flow Nasal Cannula Oxygen Flow Rate 2 07/16/22 18:00 07/16/22 20:00 07/16/22 20:00 Temperature 97.2 F L Pulse Rate 94 66 Respiratory Rate 20 Blood Pressure 127/62 127/62 Pulse Oximetry 93 Oxygen Delivery Oxygen Flow Rate 07/16/22 20:02 07/16/22 20:04 07/16/22 20:00 Temperature Pulse Rate 66 Respiratory Rate Blood Pressure 169/105 H 193/156 H Pulse Oximetry Oxygen Delivery Oxygen Flow Rate 07/16/22 22:00 07/17/22 00:00 07/17/22 00:00 Temperature 97.7 F Pulse Rate 67 62 66 Respiratory Rate 16 Blood Pressure 137/75 Pulse Oximetry 96 Oxygen Delivery Oxygen Flow Rate 07/16/22 20:00 07/17/22 00:00 07/16/22 20:46 Temperature Pulse Rate 68 Respiratory Rate 16 Blood Pressure Pulse Oximetry 96 96 Oxygen Delivery High Flow Nasal Cannula High Flow Nasal Cannula Oxygen Flow Rate 2 2 07/16/22 20:56 07/16/22 20:56 07/17/22 02:01 Temperature Pulse Rate 65 65 64 Respiratory Rate 18 16 16 Blood Pressure Pulse Oximetry 96 Oxygen Delivery High Flow Nasal Cannula Oxygen Flow Rate 2 07/17/22 02:08 07/17/22 02:00 07/17/22 04:00 Temperature 97.5 F L Pulse Rate 63 64 66 Respiratory Rate 16 18 Blood Pressure 139/63 Pulse Oximetry 94 Oxygen Delivery Oxygen Flow Rate 07/17/22 04:00 07/17/22 04:00 07/17/22 06:00 Temperature Pulse Rate 69 66 Respiratory Rate Blood Pressure Pulse Oximetry 94 Oxygen Delivery High Flow Nasal Cannula Oxygen Flow Rate 2 07/17/22 08:00 07/17/22 08:00 07/17/22 08:00 Temperature 98.2 F 98.2 F Pulse Rate 63 63 63 Respiratory Rate 20 20 20 Blood Pressure 129/57 L 129/57 L Pulse Oximetry 98 98 98 Oxygen Delivery Nasal Cannula Oxygen Flow Rate 2 07/17/22 08:00 07/17/22 11:49 07/17/22 10:00 Temperature Pulse Rate 68 63 67 Respiratory Rate 20 Blood Pressure Pulse Oximetry 98 Oxygen Delivery Nasal Cannula
--- NOTE | 2022-07-17 13:13 | PM.IMPN ---
Progress Note: A&P Assessment and Plan (1) Acute respiratory failure with hypoxemia: Code(s): J96.01 - Acute respiratory failure with hypoxia Status: Acute (2) Closed fracture of right proximal humerus: Qualifiers: Encounter type: subsequent encounter Fracture alignment: displaced Fracture morphology: other fracture Code(s): S42.201A - Unspecified fracture of upper end of right humerus, initial encounter for closed fracture Status: Acute (3) Rhabdomyolysis: Code(s): M62.82 - Rhabdomyolysis Status: Acute (4) Pneumonia: Code(s): J18.9 - Pneumonia, unspecified organism Status: Acute (5) Hypothyroidism: Code(s): E03.9 - Hypothyroidism, unspecified Status: Acute (6) Anemia: Code(s): D64.9 - Anemia, unspecified Status: Acute (7) Hyponatremia: Code(s): E87.1 - Hypo-osmolality and hyponatremia Status: Acute Plan 71-year-old male patient who has a history of having multiple falls.? The patient was seen in the emergency room on 06/23/2022 when he fell in the parking lot at [employer] and landed on his right shoulder sustaining a right humeral fracture. Patient presented again on 07/01/22 after being found down, noted to have rhabdomyolysis. Odd mentation could be related to narcotics. medications adjusted and symptoms improved. Right Humerus Fracture: Post-op ORIF R humerus fracture 07/12. Continue current wound care. Therapy ordered. 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 Currently on sodium chloride tabs 1g daily Baseline 129-134. Today, Na better at 127. Follow MSSA Bacteremia: Unlikely that this is a contaminant with 1/4 bld cx positive for MSSA Abx noted below. Repeat bld cx negative. WBC normal now. MRSA cx negative. Abx have been completed. Acute Respiratory Failure: Better overall. Able to wean off BIPAP during the day. [place] related to PNA. Fluid in the flanks. BNP 1100 on admission. CXR 07/14 showing perihilar bilateral airspace opacities. O2 requirement improving and now down to 2L. Continue BiPAP at night and with naps. Wean off O2 as tolerated Continue Lasix Aspiration PNA: Zosyn started 3/2, de-escalated to unasyn 07/05, worsened resp failure 07/06 concerning for HAP so broadened abx to vanc + cefepime, now improving, d/c vanc 07/11. Completed cefepime 07/15 to complete a 10 day course Wean off O2 as tolerated. Remains on 2L Repeat MBS noted. Continue thickened liquids. COPD, not in exacerbation: C/w bronchodilators, completed 7 day course 07/07/22, do not suspect COPD exac Yeast isolated in sputum, suspect colonization, species came back Rosa albicans and tropicalis, will defer treatment at this time, no signs of fungal infection as patient is improving, no sign of abscess/empyema on CT chest Acute Anemia: Etiology probably related to the extensive bruising noted on exam. B12 normal, not iron deficient. No obvious retroperitoneal bleed by CT CT abdomen/pelvis 07/06 remarkable for anasarca, no source of bleeding noted s/p 7 units pRBCs total; Last unit was 07/11 FOBT negative Holding ASA Appreciate hem/onc consult 07/07, flow cytometric analysis is negative Monitor closely Thrombocytopenia: Plt count low and up/down but now 82K Stop Heparin and check heparin Ab Monitor closely Hypertension: Patient's blood pressure was reviewed on 07/17 Blood pressure remains well controlled. Will continue to monitor Frequent falls: ?orthostatic hypotension could also be 2/2 uncontrolled hypothyroidism cont PT/OT Hypothyroidism: elevated TSH noted, increased levothyroxine from 150 to 175 mcg. Recheck in 4-6 weeks outpatient Normally, TSH should be undetectable with hx of thyroid cancer. DVT ppx: Heparin Code:Full Dispo: okay for discharge to SNF when okay with others Subjective Date/time seen: 07/17/22 13:13 Interval history: 71yo mal
--- NOTE | 2022-07-17 15:31 | PC.NURSE ---
This patient, Cecilio Bergeron, was transferred to [ 247] on 07/17/22 at 1531. Personal belongings sent with patient. Report given to [LUIS Rachel ]. Appropriate documentation sent with patient.
[2022-07-17] MEDS: ESCITALOPRAM OXALATE 10 MG TABLET 20 MG PO (21:41)
[2022-07-18] VITALS (22 sets, daily range): BP systolic 123–153; BP diastolic 55–107; PULSE 60–76; RESP 16–24; TEMP 36.6–37.3; O2SAT 91–98
[2022-07-18 05:28] LABS: Basophils Percent Auto 0.3 % (0.2-1.2); Eosinophils Absolute Auto 0.1 K/mm3 (0-0.3); Eosinophils Percent Auto 0.7 % (0-4.4); Hemoglobin 8.7 g/dL (14.0-18.0); Immature Granulocyte Absolute 0.08 K/mm3 (0.00-0.031); Immature Granulocyte Percent A 1.1 % (0-0.5); Immature Platelet Fraction Pct 4.7 % (0.9-11.2); Lymphocytes Absolute Auto 0.54 K/mm3 (0.9-3.2); Lymphocytes Percent Auto 7.8 % (18.3-44.2); Mean Corpuscular HGB Conc 32.2 g/dl (32-36); Mean Corpuscular Hemoglobin 30.7 pg (26-34); Mean Corpuscular Volume 95.4 fl (80-100); Mean Platelet Volume 9.5 fl (7.4-10.4); Monocytes Absolute Auto 0.5 K/mm3 (0.1-0.6); Monocytes Percent Auto 6.5 % (2.6-8.5); Neutrophils Absolute Auto 5.8 K/mm3 (1.3-6.7); Neutrophils Percent Auto 83.6 % (45.5-73.1); Platelet Count Result 112 k/mm3 (150-375); Red Blood Count 2.83 M/mm3 (4.6-6.20); Red Cell Distribution Width 18.7 % (11.5-14.5)
[2022-07-18 05:35] LABS: Alanine Aminotransferase 28 U/L (6-50); Alkaline Phosphatase 100 U/L (38-126); Anion Gap -1 mmol/L (8-16); Aspartate Amino Transferase 39 U/L (17-59); Bilirubin,Total 3.2 mg/dL (0.2-1.3); Blood Urea Nitrogen 5 mg/dL (9-20); Calcium 7.6 mg/dL (8.4-10.2); Carbon Dioxide 34 mmol/L (22-30); Chloride 96 mmol/L (98-107); Estimated CRCL calculation 146 ml/min; Estimated Glomerular Filt Rate > 60; Glucose 88 mg/dL (65-110); Potassium 3.9 mmol/L (3.4-5.0); Sodium 129 mmol/L (137-145)
[2022-07-18] MEDS: LEVOTHYROXINE SODIUM 150 MCG TABLET PO (06:26)
[2022-07-18] MEDS: CENTRAL LINE FLUSH 10 ML IV PUSH ×3 (06:26→20:37)
[2022-07-18] MEDS: LEVOTHYROXINE SODIUM 25 MCG TABLET PO (06:26)
[2022-07-18] MEDS: ALBUTEROL SULFATE NEB 2.5 MG/3 ML INH 5 MG INHALATION ×2 (08:01→14:16)
[2022-07-18] MEDS: FLUTICASONE/UMECLIDIN/VILANTER 100-62.5-25 MCG ELLIPTA 1 PUFF INHALATION (08:01)
[2022-07-18] MEDS: IPRATROPIUM BR 0.02% INH SOLN 0.5 MG/2.5 ML VIAL INHALATION ×4 (08:02→21:20)
[2022-07-18] MEDS: RANOLAZINE 500 MG TAB.ER.12H PO ×2 (08:34→20:37)
[2022-07-18] MEDS: PANTOPRAZOLE SODIUM IV 40 MG VIAL IV PUSH (08:34)
--- NOTE | 2022-07-18 08:34 | PM.PNNEP ---
Progress Note: A&P Assessment and Plan (1) Hyponatremia: Code(s): E87.1 - Hypo-osmolality and hyponatremia Status: Acute Assessment and Plan: Sodium level 129 today. Will continue Lasix plus salt tablet with each dose of Lasix. He made a lot of urine overnight. Legs look better. Before admission he was not on any diuretics. Will reduce the dose of the furosemide to20mg a day. discussed with Dr Yu yesterday (2) Acute respiratory failure with hypoxemia: Code(s): J96.01 - Acute respiratory failure with hypoxia Status: Acute Assessment and Plan: This is looking better. He has some swelling but better. Continue diuretics. (3) Rhabdomyolysis: Code(s): M62.82 - Rhabdomyolysis Status: Acute Assessment and Plan: CK has been improving (4) Anemia: Code(s): D64.9 - Anemia, unspecified Status: Acute Assessment and Plan: Hemoglobin ranging in the 8s. (5) Pneumonia: Code(s): J18.9 - Pneumonia, unspecified organism Status: Acute Assessment and Plan: Antibiotics ran their course (6) COPD (chronic obstructive pulmonary disease): Qualifiers: COPD type: unspecified COPD Qualified Code(s): J44.9 - Chronic obstructive pulmonary disease, unspecified Code(s): J44.9 - Chronic obstructive pulmonary disease, unspecified Status: Acute Assessment and Plan: Compensated (7) Closed fracture of right proximal humerus: Qualifiers: Encounter type: subsequent encounter Fracture morphology: other fracture Fracture alignment: displaced Code(s): S42.201A - Unspecified fracture of upper end of right humerus, initial encounter for closed fracture Status: Acute Assessment and Plan: Status post surgery Subjective Date/time seen: 07/18/22 08:34 Interval history: Patient is resting comfortably in bed. Cough a little bit better. No shortness of breath. Still on oxygen. O2 sat was 97% on 2L. Respiratory therapy is going to try to wean to1L. Exam Narrative: WDWN in NAD skin no rash head ncat lungs decreased breath sounds at the bases coarse breath sounds before cough, clears with the cough. cor reg no rub or gallop abd BS+ nontender and soft ext trace presacral edema. Objective Data Vital Signs Vital Signs: Vital Signs - 24 hr 07/17/22 11:49 07/17/22 10:00 07/17/22 12:00 Temperature Pulse Rate 63 67 121 H Respiratory Rate 20 Blood Pressure Pulse Oximetry 98 Oxygen Delivery Nasal Cannula Oxygen Flow Rate 2 Fraction of Inspired Oxygen 07/17/22 12:00 07/17/22 14:00 07/17/22 16:00 Temperature 98.0 F Pulse Rate 64 68 64 Respiratory Rate 20 Blood Pressure 154/66 H Pulse Oximetry 97 Oxygen Delivery Oxygen Flow Rate Fraction of Inspired Oxygen 07/17/22 16:00 07/17/22 20:11 07/17/22 21:21 Temperature 98.2 F 98.8 F Pulse Rate 64 63 72 Respiratory Rate 16 16 18 Blood Pressure 142/74 H 139/74 Pulse Oximetry 97 98 Oxygen Delivery Oxygen Flow Rate Fraction of Inspired Oxygen 07/18/22 00:30 07/17/22 20:00 07/17/22 20:00 Temperature 98.0 F Pulse Rate 65 65 64 Respiratory Rate 16 16 Blood Pressure 135/67 Pulse Oximetry 98 98 Oxygen Delivery Nasal Cannula Oxygen Flow Rate 2 Fraction of Inspired Oxygen 45 07/17/22 22:00 07/18/22 00:00 07/18/22 02:00 Temperature Pulse Rate 66 66 64 Respiratory Rate Blood Pressure Pulse Oximetry Oxygen Delivery Oxygen Flow Rate Fraction of Inspired Oxygen 07/18/22 04:00 07/18/22 05:11 07/18/22 06:00 Temperature 97.8 F Pulse Rate 69 60 64 Respiratory Rate 16 Blood Pressure 123/55 L Pulse Oximetry 97 Oxygen Delivery Oxygen Flow Rate Fraction of Inspired Oxygen 07/18/22 08:02 07/18/22 08:06 07/18/22 08:22 Temperature Pulse Rate 68 68 69 Respiratory Rate 18 18 18 Blood Pressure Pulse
[2022-07-18] MEDS: SODIUM CHLORIDE 1 GM TABLET PO (08:35)
[2022-07-18] MEDS: FUROSEMIDE 40 MG TABLET PO (08:35)
[2022-07-18] MEDS: polyethylene glycoL 3350 17 GM POWD.PACK PO (08:35)
[2022-07-18] MEDS: SIMVASTATIN 20 MG TABLET PO (08:35)
[2022-07-18] MEDS: SILVERGEL (ELTA) 45 ML 1 APPLIC TOPICAL (08:36)
[2022-07-18] MEDS: FUROSEMIDE 20 MG TABLET PO (09:42)
--- NOTE | 2022-07-18 19:10 | PM.IMPN ---
Progress Note: A&P Assessment and Plan (1) Acute respiratory failure with hypoxemia: Code(s): J96.01 - Acute respiratory failure with hypoxia Status: Acute (2) Closed fracture of right proximal humerus: Qualifiers: Encounter type: subsequent encounter Fracture morphology: other fracture Fracture alignment: displaced Code(s): S42.201A - Unspecified fracture of upper end of right humerus, initial encounter for closed fracture Status: Acute (3) Rhabdomyolysis: Code(s): M62.82 - Rhabdomyolysis Status: Acute (4) Pneumonia: Code(s): J18.9 - Pneumonia, unspecified organism Status: Acute (5) Hypothyroidism: Code(s): E03.9 - Hypothyroidism, unspecified Status: Acute (6) Anemia: Code(s): D64.9 - Anemia, unspecified Status: Acute (7) Hyponatremia: Code(s): E87.1 - Hypo-osmolality and hyponatremia Status: Acute Plan 71-year-old male patient who has a history of having multiple falls.? The patient was seen in the emergency room on 06/23/2022 after he fell in the parking lot at [employer] and landed on his right shoulder sustaining a right humeral fracture. He was discharged but presented again on 07/01/22 after being found down, noted to have rhabdomyolysis. Odd mentation could be related to narcotics. Narcotics decreased. Right Humerus Fracture: Post-op ORIF R humerus fracture 07/12. Continue current wound care. Therapy ordered. Appreciate Ortho help Up to chair, in sling. Awaiting placement Hyponatremia: Appreciate nephrology consultation. Currently on sodium chloride tabs 1g daily Baseline 129-134. Today, Na better at 129. Follow MSSA Bacteremia: Unlikely that this is a contaminant with / bld cx positive for MSSA Abx noted below. Repeat bld cx negative. WBC normal now. MRSA cx negative. Abx have been completed. Acute Respiratory Failure: Better overall. Able to wean off BIPAP during the day. [place] related to PNA. Fluid in the flanks. BNP 1100 on admission. CXR 07/14 showing perihilar bilateral airspace opacities. O2 requirement improving and now down to 1L. Continue BiPAP at night and with naps. Wean off O2 as tolerated Negative fluid balance. Continue Lasix Aspiration PNA: Zosyn started 07/01, de-escalated to unasyn 07/05, worsened resp failure 07/06 concerning for HAP so broadened abx to vanc + cefepime, now improving, d/c vanc 07/11. Completed cefepime 07/15 to complete a 10 day course Wean off O2 as tolerated. Repeat MBS noted. Continue thickened liquids. COPD, not in exacerbation: C/w bronchodilators, completed 7 day course 07/07/22, do not suspect COPD exac Yeast isolated in sputum, suspect colonization, species came back Rosa albicans and tropicalis, will defer treatment at this time, no signs of fungal infection as patient is improving, no sign of abscess/empyema on CT chest Acute Anemia: Etiology probably related to the extensive bruising noted on exam. B12 normal, not iron deficient. No obvious retroperitoneal bleed by CT CT abdomen/pelvis 07/06 remarkable for anasarca, no source of bleeding noted s/p 7 units pRBCs total; Last unit was 07/11 FOBT negative Holding ASA Appreciate hem/onc consult 07/07, flow cytometric analysis is negative Monitor closely Thrombocytopenia: Plt count low and up/down Probably chronic. Monitor closely Hypertension: Patient's blood pressure was reviewed on 07/18 Blood pressure elevated at times. Will continue to monitor Frequent falls: ?orthostatic hypotension could also be 2/2 uncontrolled hypothyroidism cont PT/OT Hypothyroidism: elevated TSH noted, increased levothyroxine from 150 to 175 mcg. Recheck in 4-6 weeks outpatient Normally, TSH should be undetectable with hx of thyroid cancer. Hyper bili Mostly indirect. Probably [place]. DVT ppx: SCDs Code:Full Dispo: okay for discharge to SNF when okay with others Subjective Date/time seen: 07/18/22 19:10 Interva
[2022-07-18] MEDS: FAMOTIDINE 20 MG TABLET PO (20:37)
[2022-07-18] MEDS: ESCITALOPRAM OXALATE 10 MG TABLET 20 MG PO (20:37)
[2022-07-18] MEDS: ALBUTEROL SULFATE NEB 2.5 MG/3 ML INH INHALATION (21:18)
[2022-07-19] VITALS (17 sets, daily range): BP systolic 111–149; BP diastolic 52–82; PULSE 62–81; RESP 12–20; TEMP 36.1–36.7; O2SAT 92–96
[2022-07-19] MEDS: ALBUTEROL SULFATE NEB 2.5 MG/3 ML INH INHALATION ×4 (03:08→20:57)
[2022-07-19] MEDS: IPRATROPIUM BR 0.02% INH SOLN 0.5 MG/2.5 ML VIAL INHALATION ×4 (03:08→20:57)
[2022-07-19] MEDS: CENTRAL LINE FLUSH 10 ML IV PUSH ×3 (05:27→20:27)
[2022-07-19] MEDS: LEVOTHYROXINE SODIUM 25 MCG TABLET PO (05:28)
[2022-07-19] MEDS: LEVOTHYROXINE SODIUM 150 MCG TABLET PO (05:28)
[2022-07-19 05:47] LABS: Alanine Aminotransferase 29 U/L (6-50); Albumin Level 3.1 g/dL (3.5-5.1); Alkaline Phosphatase 107 U/L (38-126); Anion Gap -1 mmol/L (8-16); Aspartate Amino Transferase 40 U/L (17-59); Bilirubin,Total 3.6 mg/dL (0.2-1.3); Blood Urea Nitrogen 5 mg/dL (9-20); Calcium 7.7 mg/dL (8.4-10.2); Carbon Dioxide 32 mmol/L (22-30); Chloride 96 mmol/L (98-107); Estimated CRCL calculation 146 ml/min; Estimated Glomerular Filt Rate > 60; Glucose 96 mg/dL (65-110); Potassium 3.9 mmol/L (3.4-5.0); Sodium 127 mmol/L (137-145)
[2022-07-19] MEDS: BACLOFEN 10 MG TABLET PO (06:24)
[2022-07-19] MEDS: HYDROcodone/acetaminophen (*CRX) 5-325 MG TABLET 1 TAB PO ×2 (06:24→09:03)
[2022-07-19 06:26] LABS: Basophils Percent Auto 0.2 % (0.2-1.2); Eosinophils Absolute Auto 0.1 K/mm3 (0-0.3); Eosinophils Percent Auto 0.7 % (0-4.4); Hematocrit 29.1 % (42.0-52.0); Hemoglobin 9.7 g/dL (14.0-18.0); Immature Granulocyte Absolute 0.09 K/mm3 (0.00-0.031); Immature Platelet Fraction Pct 5.1 % (0.9-11.2); Lymphocytes Absolute Auto 0.54 K/mm3 (0.9-3.2); Lymphocytes Percent Auto 6.2 % (18.3-44.2); Mean Corpuscular HGB Conc 33.3 g/dl (32-36); Mean Corpuscular Hemoglobin 31.4 pg (26-34); Mean Corpuscular Volume 94.2 fl (80-100); Mean Platelet Volume 9.9 fl (7.4-10.4); Monocytes Absolute Auto 0.7 K/mm3 (0.1-0.6); Monocytes Percent Auto 7.7 % (2.6-8.5); Neutrophils Absolute Auto 7.3 K/mm3 (1.3-6.7); Neutrophils Percent Auto 84.2 % (45.5-73.1); Platelet Count Result 124 k/mm3 (150-375); Red Blood Count 3.09 M/mm3 (4.6-6.20); Red Cell Distribution Width 19.4 % (11.5-14.5); White Blood Count 8.7 K/mm3 (4.5-10.0)
--- NOTE | 2022-07-19 08:24 | PM.IMPN ---
Progress Note: A&P Assessment and Plan (1) Acute respiratory failure with hypoxemia: Code(s): J96.01 - Acute respiratory failure with hypoxia Status: Acute (2) Closed fracture of right proximal humerus: Qualifiers: Encounter type: subsequent encounter Fracture alignment: displaced Fracture morphology: other fracture Code(s): S42.201A - Unspecified fracture of upper end of right humerus, initial encounter for closed fracture Status: Acute (3) Rhabdomyolysis: Code(s): M62.82 - Rhabdomyolysis Status: Acute (4) Pneumonia: Code(s): J18.9 - Pneumonia, unspecified organism Status: Acute (5) Hypothyroidism: Code(s): E03.9 - Hypothyroidism, unspecified Status: Acute (6) Anemia: Code(s): D64.9 - Anemia, unspecified Status: Acute (7) Hyponatremia: Code(s): E87.1 - Hypo-osmolality and hyponatremia Status: Chronic Plan 71-year-old male patient who has a history of having multiple falls.? The patient was seen in the emergency room on 06/23/2022 after he fell in the parking lot at [employer] and landed on his right shoulder sustaining a right humeral fracture. He was discharged but presented again on 07/01/22 after being found down, noted to have rhabdomyolysis. Odd mentation could be related to narcotics. Narcotics decreased but still getting [place]. Follow Right Humerus Fracture: Post-op ORIF R humerus fracture 07/12. Continue current wound care. Therapy ordered. Appreciate Ortho help Up to chair, in sling. Awaiting placement Hyponatremia: Appreciate nephrology consultation. Currently on sodium chloride tabs 1g daily Baseline 129-134. Na mostly 127-129 now. Follow MSSA Bacteremia: Unlikely that this is a contaminant with 1/4 bld cx positive for MSSA Abx started. Repeat bld cx negative. WBC normal MRSA cx negative. Abx have been completed. Acute Respiratory Failure: Better overall. Able to wean off BIPAP during the day. [place] related to PNA and/or fluid overload. He does have fluid in the flanks. BNP 1100 on admission. CXR 07/14 showing perihilar bilateral airspace opacities. O2 requirement improving and now down to 1L. Not wearing BiPAP at night. Wean off O2 as tolerated Negative fluid balance still. Continue Lasix . Check CXR. Check Apnea link. may benefit with at least O2 at night Aspiration PNA: Zosyn started 07/01, de-escalated to unasyn 07/05, worsened resp failure 07/06 concerning for HAP so broadened abx to vanc + cefepime, now improving, d/c vanc 07/11. Completed cefepime 07/15 to complete a 10 day course Wean off O2 as tolerated. Repeat MBS noted. Continue thickened liquids. Added Pulmozyme given his weak cough COPD, not in exacerbation: C/w bronchodilators, completed 7 day course 07/07/22, do not suspect COPD exac Yeast isolated in sputum, suspect colonization, species came back Rosa albicans and tropicalis, will defer treatment at this time, no signs of fungal infection as patient is improving, no sign of abscess/empyema on CT chest Acute Anemia: Etiology probably related to the extensive bruising noted on exam. B12 normal, not iron deficient. No obvious retroperitoneal bleed by CT CT abdomen/pelvis 07/06 remarkable for anasarca, no source of bleeding noted s/p 7 units pRBCs total; Last unit was 07/11 FOBT negative Appreciate hem/onc consult 07/07, flow cytometric analysis is negative ASA resumed. Monitor closely Thrombocytopenia: Plt count low and up/down Probably chronic. Monitor closely Hypertension: Patient's blood pressure was reviewed on 07/19 Blood pressure elevated at times. Will continue to monitor Frequent falls: ?orthostatic hypotension could also be 2/2 uncontrolled hypothyroidism cont PT/OT Hypothyroidism: elevated TSH noted, increased levothyroxine from 150 to 175 mcg. Recheck in 4-6 weeks outpatient Normally, TSH should be undetectable with hx of thyroid cancer. Hyper bili Mostly indirect. Probably
[2022-07-19] MEDS: FUROSEMIDE 20 MG TABLET PO (08:57)
[2022-07-19] MEDS: polyethylene glycoL 3350 17 GM POWD.PACK PO (08:57)
[2022-07-19] MEDS: FAMOTIDINE 20 MG TABLET PO ×2 (08:58→20:26)
[2022-07-19] MEDS: SODIUM CHLORIDE 1 GM TABLET PO (08:58)
[2022-07-19] MEDS: ASPIRIN 81 MG CHEWABLE TABLET PO (08:59)
[2022-07-19] MEDS: RANOLAZINE 500 MG TAB.ER.12H PO ×2 (08:59→20:26)
[2022-07-19] MEDS: SIMVASTATIN 20 MG TABLET PO (08:59)
[2022-07-19] MEDS: SILVERGEL (ELTA) 45 ML 1 APPLIC TOPICAL (09:00)
[2022-07-19] MEDS: DORNASE ALFA INH SOLN 1 MG/ML 2.5 ML AMP 2.5 MG INHALATION ×2 (09:43→20:57)
[2022-07-19] MEDS: FLUTICASONE/UMECLIDIN/VILANTER 100-62.5-25 MCG ELLIPTA 1 PUFF INHALATION (09:50)
--- NOTE | 2022-07-19 11:00 | P.PNNP_ITS ---
Progress Note: A&P Assessment and Plan (1) Hyponatremia: Code(s): E87.1 - Hypo-osmolality and hyponatremia Status: Chronic Assessment and Plan: * better/improving at this time * acute on chronic issue * baseline sodium seems to run around 129 - 134 (at best) * has been running ~ 127 - 129 during this hospitalization * worsening noted during this hospitalization * multiple risk factors for hyponatremia: * pneumonia * lung disease (COPD) * SSRI use (lexapro) * PPI use (nexium) * pain (from recent fall/trauma/fractures) * hypothyroidism (restarted treatment on this admission) * currently on furosemide + salt tabs * follow trend of repeat sodium levels (2) Acute respiratory failure with hypoxemia: Code(s): J96.01 - Acute respiratory failure with hypoxia Status: Acute Assessment and Plan: * doing better * CXR results noted -- may need to increase diuretic therapy * continue current therapy (3) Rhabdomyolysis: Code(s): M62.82 - Rhabdomyolysis Status: Acute Assessment and Plan: * resolving * last CPK 326 about a week ago (4) Anemia: Code(s): D64.9 - Anemia, unspecified Status: Acute Assessment and Plan: * improving * follow trend of H/H * s/p multiple PRBC transfusions during this hospitalization (5) Pneumonia: Code(s): J18.9 - Pneumonia, unspecified organism Status: Acute Assessment and Plan: * complete course of antibiotics * continue supportive therapy (6) Closed fracture of right proximal humerus: Qualifiers: Encounter type: subsequent encounter Fracture alignment: displaced Fracture morphology: other fracture Code(s): S42.201A - Unspecified fracture of upper end of right humerus, initial encounter for closed fracture Status: Acute Assessment and Plan: * s/p ORIF right humerus fracture on 07/12/22 * Orthopedic following Will continue to follow. Subjective Date/time seen: 07/19/22 11:00 Chart reviewed since last seen -- assuming care from Dr. Nam; sodium relatively stable at this time with current interventions; still with pain issues related to right arm but better with pain medications; respiratory status remains stable if not improving; no apparent distress at the time of my visit. Exam Narrative: General: ill appearing male in NAD Heart: normal S1 and S2; no rub Lungs: coarse breath sounds with a few wheezes Abdomen: soft, nontender, nondistended, positive bowel sounds Extremities: no cyanosis or clubbing; trace edema Skin: resolving ecchymoses Objective Data Vital Signs Vital Signs: Vital Signs Temp Pulse Resp BP Pulse Ox O2 Del Method O2 Flow Rate 07/19/22 10:10 71 18 143/78 H 96 07/19/22 10:15 149/82 H 96 07/19/22 10:10 71 18 143/78 H 96 07/19/22 09:38 81 16 07/19/22 09:44 96 Room Air 07/19/22 06:43 98.0 F 74 16 128/70 93 07/19/22 03:30 74 18 07/19/22 03:10 80 18 07/19/22 01:00 97.6 F 68 16 138/74 92 07/18/22 20:00 76 18 91 Room Air 07/18/22 21:31 76 18 07/18/22 21:21 72 18 07/18/22 20:07 67 146/67 H 07/18/22 20:06 98.4 F 67 16 146/67 H 91 07/18/22 18:00 99.1 F 70 24 H
--- NOTE | 2022-07-19 11:00 | PM.PNNEP ---
Progress Note: A&P Assessment and Plan (1) Hyponatremia: Code(s): E87.1 - Hypo-osmolality and hyponatremia Status: Chronic Assessment and Plan: better/improving at this time acute on chronic issue baseline sodium seems to run around 129 - 134 (at best) has been running ~ 127 - 129 during this hospitalization worsening noted during this hospitalization multiple risk factors for hyponatremia: pneumonia lung disease (COPD) SSRI use (lexapro) PPI use (nexium) pain (from recent fall/trauma/fractures) hypothyroidism (restarted treatment on this admission) currently on furosemide + salt tabs follow trend of repeat sodium levels (2) Acute respiratory failure with hypoxemia: Code(s): J96.01 - Acute respiratory failure with hypoxia Status: Acute Assessment and Plan: doing better CXR results noted -- may need to increase diuretic therapy continue current therapy (3) Rhabdomyolysis: Code(s): M62.82 - Rhabdomyolysis Status: Acute Assessment and Plan: resolving last CPK 326 about a week ago (4) Anemia: Code(s): D64.9 - Anemia, unspecified Status: Acute Assessment and Plan: improving follow trend of H/H s/p multiple PRBC transfusions during this hospitalization (5) Pneumonia: Code(s): J18.9 - Pneumonia, unspecified organism Status: Acute Assessment and Plan: complete course of antibiotics continue supportive therapy (6) Closed fracture of right proximal humerus: Qualifiers: Encounter type: subsequent encounter Fracture alignment: displaced Fracture morphology: other fracture Code(s): S42.201A - Unspecified fracture of upper end of right humerus, initial encounter for closed fracture Status: Acute Assessment and Plan: s/p ORIF right humerus fracture on 07/12/22 Orthopedic following Will continue to follow. Subjective Date/time seen: 07/19/22 11:00 Chart reviewed since last seen -- assuming care from Dr. Nam; sodium relatively stable at this time with current interventions; still with pain issues related to right arm but better with pain medications; respiratory status remains stable if not improving; no apparent distress at the time of my visit. Exam Narrative: General: ill appearing male in NAD Heart: normal S1 and S2; no rub Lungs: coarse breath sounds with a few wheezes Abdomen: soft, nontender, nondistended, positive bowel sounds Extremities: no cyanosis or clubbing; trace edema Skin: resolving ecchymoses Objective Data Vital Signs Vital Signs: Vital Signs Temp Pulse Resp BP Pulse Ox O2 Del Method O2 Flow Rate 07/19/22 10:10 71 18 143/78 H 96 07/19/22 10:15 149/82 H 96 07/19/22 10:10 71 18 143/78 H 96 07/19/22 09:38 81 16 07/19/22 09:44 96 Room Air 07/19/22 06:43 98.0 F 74 16 128/70 93 07/19/22 03:30 74 18 07/19/22 03:10 80 18 07/19/22 01:00 97.6 F 68 16 138/74 92 07/18/22 20:00 76 18 91 Room Air 07/18/22 21:31 76 18 07/18/22 21:21 72 18 07/18/22 20:07 67 146/67 H 07/18/22 20:06 98.4 F 67 16 146/67 H 91 07/18/22 18:00 99.1 F 70 24 H 127/67 95 07/18/22 14:31 70 18 07/18/22 14:20 67 18 96 Nasal Cannula 1 07/18/22 14:16 67 18 Intake/Output Intake/Output: Intake & Output 07/16/22 07/17/22 07/18/22 07/19/22 23:59 23:59 23:59 23:59 Intake Total 1250 755 610 390 Output Total 1625 1079 1080 3415 Jphpukt -348 -018 -3040 -1335 Meds/Results Medications: Active Medications Generic Name Dose Route Start Last Admin Trade Name Freq PRN Reason Stop Dose Admin Acetaminophen 650 mg 07/16/22 19:15 Acetaminophen 325 Mg Tablet PO Q6H PRN Pain Rated 1-6 Hydrocodone Bitart/Acetaminophen 1 tab 07/16/22 19:15 07/19/22 09:03 Hydrocodone/Acetaminophen
--- NOTE | 2022-07-19 16:07 | PM.PNORT ---
Progress Note: A&P Assessment and Plan (1) Closed fracture of right proximal humerus: Qualifiers: Encounter type: subsequent encounter Fracture morphology: other fracture Fracture alignment: displaced Code(s): S42.201A - Unspecified fracture of upper end of right humerus, initial encounter for closed fracture Status: Acute Assessment and Plan: 71-year-old male postop day 7 ORIF right proximal humerus fracture. No change in treatment plan. Sutures can be removed in the nursing facility on 07/27. Will have them get humerus x-rays once the sutures are out. We will give further recommendations based on with those x-rays show. Subjective Subjective Date/Time Seen: 07/19/22 16:07 Post Op day: 7 Principal diagnosis: ORIF right proximal humerus fracture Interval history: 71-year-old male postop day 7 ORIF right proximal humerus fracture. Still having pain in the right shoulder but mobilizing with therapy. No new issues at the incision site. Review of Systems Constitutional: Constitutional: Reports as per HPI and Reports no additional constitutional complaints Musculoskeletal: Musculoskeletal: Reports no additional musculoskeletal complaints and Reports as per HPI Exam Const: General: cooperative, alert and tired appearing Orientation/consciousness: patient oriented x3 HENMT: Head: normal to inspection Ears: hearing grossly normal bilaterally Resp: Effort & Inspection: able to speak in complete sentences Neuro: General: patient oriented x3 Extrem: Other: Exam of the right shoulder shows clean and dry incision. Still has extensive bruising to the right upper extremity. Neurovascular status right upper extremity intact. Psych: Mental Status: mental status grossly normal Objective Data Vital Signs Vital Signs: Vital Signs - 24 hr 07/18/22 18:00 07/18/22 20:06 07/18/22 20:07 Temperature 99.1 F 98.4 F Pulse Rate 70 67 67 Respiratory Rate 24 H 16 Blood Pressure 127/67 146/67 H 146/67 H Pulse Oximetry 95 91 Oxygen Delivery 07/18/22 21:21 07/18/22 21:31 07/18/22 20:00 Temperature Pulse Rate 72 76 76 Respiratory Rate 18 18 18 Blood Pressure Pulse Oximetry 91 Oxygen Delivery Room Air 07/19/22 01:00 07/19/22 03:10 07/19/22 03:30 Temperature 97.6 F Pulse Rate 68 80 74 Respiratory Rate 16 18 18 Blood Pressure 138/74 Pulse Oximetry 92 Oxygen Delivery 07/19/22 06:43 07/19/22 09:44 07/19/22 09:38 Temperature 98.0 F Pulse Rate 74 81 Respiratory Rate 16 16 Blood Pressure 128/70 Pulse Oximetry 93 96 Oxygen Delivery Room Air 07/19/22 10:10 07/19/22 10:15 07/19/22 10:10 Temperature Pulse Rate 71 71 Respiratory Rate 18 18 Blood Pressure 143/78 H 149/82 H 143/78 H Pulse Oximetry 96 96 96 Oxygen Delivery 07/19/22 12:00 07/19/22 09:45 07/19/22 09:50 Temperature 97.5 F L Pulse Rate 62 77 Respiratory Rate 12 16 Blood Pressure 111/52 L Pulse Oximetry 95 Oxygen Delivery Room Air 07/19/22 14:20 07/19/22 14:33 07/19/22 16:00 Temperature 97.5 F L Pulse Rate 81 78 66 Respiratory Rate 16 16 20 Blood Pressure 139/62 Pulse Oximetry 93 Oxygen Delivery Intake/Output Intake/Output: Intake & Output 07/16/22 07/17/22 07/18/22 07/19/22 23:59 23:59 23:59 23:59 Intake Total 1250 755 610 850 Output Total 0696 1525 5659 1725 Enrmhwi -375 -770 -3040 -875 Meds/Results Medications: Active Medications Generic Name Dose Route Start Last Admin Trade Name Freq PRN Reason Stop Dose Admin Acetaminophen 650 mg 07/16/22 19:15 Acetaminophen 325 Mg Tablet PO Q6H PRN Pain Rated 1-6 Hydrocodone Bitart/Acetaminophen 1 tab 07/16/22 19:15 07/19/22 09:03 Hydrocodone/Acetaminophen (*Crx) 5-325 Mg Tablet PO 1 tab Q3H PRN Administration Pain Rated 7-10 Albuterol 1 puff 07/03/22 13:54 Albuterol Sulfate (*Sp) Aerosol 1 Puff INHALATION Q4HRT PRN Shortness Of
[2022-07-19 16:34] LABS: NT Pro B Type Natriuretic Pept 1670 pg/mL (19.9-100)
[2022-07-19] MEDS: ESCITALOPRAM OXALATE 10 MG TABLET 20 MG PO (20:26)
[2022-07-20] VITALS (22 sets, daily range): BP systolic 103–132; BP diastolic 62–78; PULSE 62–78; RESP 16–18; TEMP 36.1–36.8; O2SAT 90–97
[2022-07-20] MEDS: ALBUTEROL SULFATE NEB 2.5 MG/3 ML INH INHALATION (02:13)
[2022-07-20] MEDS: IPRATROPIUM BR 0.02% INH SOLN 0.5 MG/2.5 ML VIAL INHALATION (02:13)
--- NOTE | 2022-07-20 04:29 | PCRCNOTE ---
Patient too confused for apnea link to be accomplished. Patient began pulling off the sticky pulse oximeter the moment it was applied. The test was terminated.
[2022-07-20 05:09] LABS: Basophils Percent Auto 0.3 % (0.2-1.2); Eosinophils Absolute Auto 0.1 K/mm3 (0-0.3); Eosinophils Percent Auto 1.4 % (0-4.4); Hematocrit 28.2 % (42.0-52.0); Hemoglobin 9.4 g/dL (14.0-18.0); Immature Granulocyte Absolute 0.07 K/mm3 (0.00-0.031); Immature Platelet Fraction Pct 5.4 % (0.9-11.2); Lymphocytes Absolute Auto 0.58 K/mm3 (0.9-3.2); Lymphocytes Percent Auto 7.9 % (18.3-44.2); Mean Corpuscular HGB Conc 33.3 g/dl (32-36); Mean Corpuscular Hemoglobin 30.8 pg (26-34); Mean Corpuscular Volume 92.5 fl (80-100); Mean Platelet Volume 10.4 fl (7.4-10.4); Monocytes Absolute Auto 0.6 K/mm3 (0.1-0.6); Monocytes Percent Auto 7.9 % (2.6-8.5); Neutrophils Percent Auto 81.5 % (45.5-73.1); Platelet Count Result 144 k/mm3 (150-375); Red Blood Count 3.05 M/mm3 (4.6-6.20); Red Cell Distribution Width 19.2 % (11.5-14.5); White Blood Count 7.4 K/mm3 (4.5-10.0)
[2022-07-20 05:14] LABS: Alanine Aminotransferase 28 U/L (6-50); Albumin Level 3.2 g/dL (3.5-5.1); Alkaline Phosphatase 108 U/L (38-126); Anion Gap 3 mmol/L (8-16); Aspartate Amino Transferase 44 U/L (17-59); Bilirubin,Total 3.8 mg/dL (0.2-1.3); Blood Urea Nitrogen 6 mg/dL (9-20); Calcium 7.7 mg/dL (8.4-10.2); Carbon Dioxide 31 mmol/L (22-30); Chloride 95 mmol/L (98-107); Estimated CRCL calculation 146 ml/min; Estimated Glomerular Filt Rate > 60; Glucose 93 mg/dL (65-110); Potassium 3.5 mmol/L (3.4-5.0); Sodium 129 mmol/L (137-145)
[2022-07-20] MEDS: CENTRAL LINE FLUSH 20 ML IV PUSH (06:26)
[2022-07-20] MEDS: LEVOTHYROXINE SODIUM 25 MCG TABLET PO (06:26)
[2022-07-20] MEDS: LEVOTHYROXINE SODIUM 150 MCG TABLET PO (06:26)
[2022-07-20] MEDS: CENTRAL LINE FLUSH 10 ML IV PUSH ×3 (06:26→21:12)
[2022-07-20] MEDS: FLUTICASONE/UMECLIDIN/VILANTER 100-62.5-25 MCG ELLIPTA 1 PUFF INHALATION (07:55)
[2022-07-20] MEDS: DORNASE ALFA INH SOLN 1 MG/ML 2.5 ML AMP 2.5 MG INHALATION ×2 (07:55→21:51)
[2022-07-20 07:56] LABS: Bilirubin Indirect 3.2 mg/dL (0-1.1)
[2022-07-20] MEDS: polyethylene glycoL 3350 17 GM POWD.PACK PO (09:18)
[2022-07-20] MEDS: FAMOTIDINE 20 MG TABLET PO ×2 (09:20→21:11)
[2022-07-20] MEDS: RANOLAZINE 500 MG TAB.ER.12H PO ×2 (09:20→21:11)
[2022-07-20] MEDS: ASPIRIN 81 MG CHEWABLE TABLET PO (09:20)
[2022-07-20] MEDS: FUROSEMIDE 20 MG TABLET PO (09:20)
[2022-07-20] MEDS: SODIUM CHLORIDE 1 GM TABLET PO (09:21)
[2022-07-20] MEDS: SIMVASTATIN 20 MG TABLET PO (09:21)
[2022-07-20] MEDS: SILVERGEL (ELTA) 45 ML 1 APPLIC TOPICAL (09:21)
--- NOTE | 2022-07-20 11:23 | P.PNNP_ITS ---
Progress Note: A&P Assessment and Plan (1) Hyponatremia: Code(s): E87.1 - Hypo-osmolality and hyponatremia Status: Chronic Assessment and Plan: * better/improving if not stable at this time * acute on chronic issue * baseline sodium seems to run around 129 - 134 (at best) * has been running ~ 127 - 129 during this hospitalization * worsening noted during earlier this hospitalization * multiple risk factors for hyponatremia: * pneumonia * lung disease (COPD) * SSRI use (lexapro) * PPI use (nexium) * pain (from recent fall/trauma/fractures) * hypothyroidism (restarted treatment on this admission) * currently on furosemide + salt tabs * follow trend of repeat sodium levels (2) Acute respiratory failure with hypoxemia: Code(s): J96.01 - Acute respiratory failure with hypoxia Status: Acute Assessment and Plan: * doing better * CXR results noted -- may need to increase diuretic therapy * continue current therapy (3) Rhabdomyolysis: Code(s): M62.82 - Rhabdomyolysis Status: Acute Assessment and Plan: * resolving * last CPK 326 about a week ago (4) Anemia: Code(s): D64.9 - Anemia, unspecified Status: Acute Assessment and Plan: * improving * follow trend of H/H * s/p multiple PRBC transfusions during this hospitalization (5) Pneumonia: Code(s): J18.9 - Pneumonia, unspecified organism Status: Acute Assessment and Plan: * complete course of antibiotics * continue supportive therapy (6) Closed fracture of right proximal humerus: Qualifiers: Encounter type: subsequent encounter Fracture alignment: displaced Fracture morphology: other fracture Code(s): S42.201A - Unspecified fracture of upper end of right humerus, initial encounter for closed fracture Status: Acute Assessment and Plan: * s/p ORIF right humerus fracture on 07/12/22 * Orthopedic following Not much else to add -- will continue to follow intermittently. Subjective Date/time seen: 07/20/22 11:23 Appears to be doing relatively well; sodium remain fairly stable at this time with current interventions; pain seems satisfactory; no issues/events overnight or earlier this AM. Exam Narrative: General: ill appearing male in NAD Heart: normal S1 and S2; no rub Lungs: coarse breath sounds with a few wheezes Abdomen: soft, nontender, nondistended, positive bowel sounds Extremities: no cyanosis or clubbing; trace edema Skin: resolving ecchymoses noted Objective Data Vital Signs Vital Signs: Vital Signs Temp Pulse Resp BP Pulse Ox O2 Del Method 07/20/22 08:05 64 18 07/20/22 07:58 90 Room Air 07/20/22 07:57 62 18 07/20/22 07:59 97.0 F L 64 18 126/66 95 07/20/22 06:05 97.4 F L 63 18 117/78 95 07/20/22 06:00 97.0 F L 64 18 126/66 95 07/20/22 03:27 97.4 F L 66 16 130/68 93 07/20/22 02:25 68 18 07/20/22 02:13 71 18 07/19/22 23:10 97.0 F L 71 16 129/71 93 07/19/22 21:11 73 18 07/19/22 21:03 69 93 Room Air 07/19/22 20:58 69 18 07/19/22 16:00 97.5 F L 66 20 139/62 93 07/19/22 14:33 78 16 07/19/22 14:20 81 16 07/19/22 12:00 97.5 F L
--- NOTE | 2022-07-20 11:23 | PM.PNNEP ---
Progress Note: A&P Assessment and Plan (1) Hyponatremia: Code(s): E87.1 - Hypo-osmolality and hyponatremia Status: Chronic Assessment and Plan: better/improving if not stable at this time acute on chronic issue baseline sodium seems to run around 129 - 134 (at best) has been running ~ 127 - 129 during this hospitalization worsening noted during earlier this hospitalization multiple risk factors for hyponatremia: pneumonia lung disease (COPD) SSRI use (lexapro) PPI use (nexium) pain (from recent fall/trauma/fractures) hypothyroidism (restarted treatment on this admission) currently on furosemide + salt tabs follow trend of repeat sodium levels (2) Acute respiratory failure with hypoxemia: Code(s): J96.01 - Acute respiratory failure with hypoxia Status: Acute Assessment and Plan: doing better CXR results noted -- may need to increase diuretic therapy continue current therapy (3) Rhabdomyolysis: Code(s): M62.82 - Rhabdomyolysis Status: Acute Assessment and Plan: resolving last CPK 326 about a week ago (4) Anemia: Code(s): D64.9 - Anemia, unspecified Status: Acute Assessment and Plan: improving follow trend of H/H s/p multiple PRBC transfusions during this hospitalization (5) Pneumonia: Code(s): J18.9 - Pneumonia, unspecified organism Status: Acute Assessment and Plan: complete course of antibiotics continue supportive therapy (6) Closed fracture of right proximal humerus: Qualifiers: Encounter type: subsequent encounter Fracture alignment: displaced Fracture morphology: other fracture Code(s): S42.201A - Unspecified fracture of upper end of right humerus, initial encounter for closed fracture Status: Acute Assessment and Plan: s/p ORIF right humerus fracture on 07/12/22 Orthopedic following Not much else to add -- will continue to follow intermittently. Subjective Date/time seen: 07/20/22 11:23 Appears to be doing relatively well; sodium remain fairly stable at this time with current interventions; pain seems satisfactory; no issues/events overnight or earlier this AM. Exam Narrative: General: ill appearing male in NAD Heart: normal S1 and S2; no rub Lungs: coarse breath sounds with a few wheezes Abdomen: soft, nontender, nondistended, positive bowel sounds Extremities: no cyanosis or clubbing; trace edema Skin: resolving ecchymoses noted Objective Data Vital Signs Vital Signs: Vital Signs Temp Pulse Resp BP Pulse Ox O2 Del Method 07/20/22 08:05 64 18 07/20/22 07:58 90 Room Air 07/20/22 07:57 62 18 07/20/22 07:59 97.0 F L 64 18 126/66 95 07/20/22 06:05 97.4 F L 63 18 117/78 95 07/20/22 06:00 97.0 F L 64 18 126/66 95 07/20/22 03:27 97.4 F L 66 16 130/68 93 07/20/22 02:25 68 18 07/20/22 02:13 71 18 07/19/22 23:10 97.0 F L 71 16 129/71 93 07/19/22 21:11 73 18 07/19/22 21:03 69 93 Room Air 07/19/22 20:58 69 18 07/19/22 16:00 97.5 F L 66 20 139/62 93 07/19/22 14:33 78 16 07/19/22 14:20 81 16 07/19/22 12:00 97.5 F L 62 12 111/52 L 95 Intake/Output Intake/Output: Intake & Output 07/17/22 07/18/22 07/19/22 07/20/22 23:59 23:59 23:59 23:59 Intake Total 360 718 7484 120 Output Total 1525 3650 2125 1050 [facility] -[phone] Meds/Results Medications: Active Medications Generic Name Dose Route Start Last Admin Trade Name Freq PRN Reason Stop Dose Admin Acetaminophen 650 mg 07/16/22 19:15 Acetaminophen 325 Mg Tablet PO Q6H PRN Pain Rated 1-6 Hydrocodone Bitart/Acetaminophen 1 tab 07/16/22 19:15 07/19/22 09:03 Hydrocodone/Acetaminophen (*Crx) 5-325 Mg Tablet PO 1 tab Q3H PRN Administration Pain Rated 7-10 Albuterol 1 puff 07/03/22 13:54
--- NOTE | 2022-07-20 11:40 | PM.IMPN ---
Progress Note: A&P Assessment and Plan (1) Acute respiratory failure with hypoxemia: Code(s): J96.01 - Acute respiratory failure with hypoxia Status: Acute (2) Closed fracture of right proximal humerus: Qualifiers: Encounter type: subsequent encounter Fracture morphology: other fracture Fracture alignment: displaced Code(s): S42.201A - Unspecified fracture of upper end of right humerus, initial encounter for closed fracture Status: Acute (3) Rhabdomyolysis: Code(s): M62.82 - Rhabdomyolysis Status: Acute (4) Pneumonia: Code(s): J18.9 - Pneumonia, unspecified organism Status: Acute (5) Hypothyroidism: Code(s): E03.9 - Hypothyroidism, unspecified Status: Acute (6) Anemia: Code(s): D64.9 - Anemia, unspecified Status: Acute (7) Hyponatremia: Code(s): E87.1 - Hypo-osmolality and hyponatremia Status: Chronic Plan 71-year-old male patient who has a history of having multiple falls.? The patient was seen in the emergency room on 06/23/2022 after he fell in the parking lot at [employer] and landed on his right shoulder sustaining a right humeral fracture. He was discharged but presented again on 07/01/22 after being found down, noted to have rhabdomyolysis. Odd mentation could be related to narcotics. Narcotics decreased but still getting Brooks. Still confused. Could be delirium from prolonged hospital course. Will stop Baclofen and Brooks now. Check CT brain. Repeat TSH to ensure this is trending down. Follow Right Humerus Fracture: Post-op ORIF R humerus fracture 07/12. Continue current wound care. Continue therapy. Appreciate Ortho input. Up to chair, in sling. Awaiting placement Hyponatremia: Appreciate nephrology consultation. Currently on sodium chloride tabs 1g daily Baseline 129-134. Na mostly 127-129 now. Follow MSSA Bacteremia: Unlikely that this is a contaminant with 1/4 bld cx positive for MSSA Abx were started. Repeat bld cx negative. WBC normal MRSA cx negative. He has completed a course of abx. WBC remains normal and no fevers off the abx Acute Respiratory Failure: Better overall. Able to wean off BIPAP during the day and now he is refusing bipap. [place] related to PNA and/or fluid overload. He does have fluid in the flanks. BNP 1100 on admission. CXR 07/14 showing perihilar bilateral airspace opacities. O2 requirement improved; able to wean to room air Negative fluid balance noted. CXR 07/19 showing patchy bilateral airspace disease. Check Apnea link tonight since not able to do last night; he may benefit with at least O2 at night. Continue oral Lasix. Check BNP. Lasix IV once. Aspiration PNA: Zosyn started 07/01, de-escalated to unasyn 07/05, worsened resp failure 07/06 concerning for HAP so broadened abx to vanc + cefepime, now improving, d/c vanc 07/11. Completed a 10 day course of cefepime on 07/15 Weaned off O2 now. Repeat MBS noted. Continue thickened liquids and advance to moderate since weak cough. Added Pulmozyme given his weak cough. Change nebs to prn to see if he can sleep better at night. COPD, not in exacerbation: Do not suspect COPD exac. Sputum negative on 07/02. Yeast isolated in sputum on 07/03. Sputum cx 07/07 also growing yeast with Rosa albicans and tropicalis. No signs of fungal infection as patient is improving and no sign of abscess/empyema on CT chest so treatment held No wheezing but weak cough. Pulmozyme and CPT to help with sputum production. Make Atrovent prn since this can be drying. Change to Xopenex since Albuterol may be contributing to his inability to sleep. Acute Anemia: B12 normal, not iron deficient. No obvious retroperitoneal bleed by CT. FOBT negative. Etiology probably related to the extensive bruising noted on exam. s/p 7 units pRBCs total; Last unit was 07/11 CT abdomen/pelvis 07/06 remarkable for anasarca, no source of bleeding noted Appreciate hem/onc consult 07/07, flow cytometric analysis is n
--- NOTE | 2022-07-20 11:41 | PCSTNOTE ---
Patient was asleep but awakened when aroused and refused therapy indicating he was not feeling up to it. Dr. Yu notified of request to downgrade to moderately thick liquids from mildly thin liquids due to wet vocal sounds and inspiration/expiration after speaking with LUIS Grajeda, who was concerned.
--- NOTE | 2022-07-20 12:13 | PCNFU ---
Nutrition Follow-Up Complete: Mild malnutrition related to acute illness as evidenced by poor intake, reduced functional status Goal:Improved PO intake to at least 50% meals and supplements Pt current nutrition is Heart healthy, level 5 minced and moist, level 2 liquids. Nutrition recommendation: Add ensure compact BID Last recorded weight is 76.6 kg. Bowel Motility: +BM 07/20 Labs Reviewed: hgb:9.4, HCT:28.2, Alb:3.2, N:129, BUN:6, Cr:0.4 Meds Noted: lasix, zofran, miralax Skin: skin tears Additional Notes: pt continues on a heart healthy minced and moist diet, level 2 liquids. Intake good, appetite good at 50-100% of meals. Pt reports he would benefit from Ensure. Agree with diet orders and supplementation. Will add Ensure compact BID. Monitor intakes, weights, labs, supplement tolerance, plan of care Follow up in 5 days
[2022-07-20 12:14] LABS: Glucose Point of Care 111 mg/dl (65-105)
[2022-07-20 12:49] LABS: NT Pro B Type Natriuretic Pept 1160 pg/mL (19.9-100)
[2022-07-20 13:30] LABS: Heparin Induced Platelet Antib Negative (Negative)
[2022-07-20] MEDS: FUROSEMIDE INJ 40 MG/4 ML VIAL 20 MG IV PUSH (13:40)
[2022-07-20] MEDS: ENOXAPARIN 40 MG/0.4 ML SYRINGE SUB-Q (13:40)
[2022-07-20] MEDS: ESCITALOPRAM OXALATE 10 MG TABLET 20 MG PO (21:11)
[2022-07-21] VITALS (11 sets, daily range): BP systolic 96–141; BP diastolic 55–97; PULSE 63–79; RESP 16–18; TEMP 36.4–36.6; O2SAT 92–97
[2022-07-21] MEDS: CENTRAL LINE FLUSH 10 ML IV PUSH ×2 (06:05→14:08)
[2022-07-21] MEDS: LEVOTHYROXINE SODIUM 150 MCG TABLET PO (06:05)
[2022-07-21] MEDS: LEVOTHYROXINE SODIUM 25 MCG TABLET PO (06:05)
[2022-07-21] MEDS: CENTRAL LINE FLUSH 20 ML IV PUSH (06:05)
[2022-07-21 06:13] LABS: Basophils Percent Auto 0.3 % (0.2-1.2); Eosinophils Absolute Auto 0.1 K/mm3 (0-0.3); Eosinophils Percent Auto 1.3 % (0-4.4); Hematocrit 29.7 % (42.0-52.0); Hemoglobin 9.8 g/dL (14.0-18.0); Immature Granulocyte Absolute 0.08 K/mm3 (0.00-0.031); Immature Granulocyte Percent A 1.2 % (0-0.5); Lymphocytes Absolute Auto 0.65 K/mm3 (0.9-3.2); Lymphocytes Percent Auto 9.4 % (18.3-44.2); Mean Corpuscular Hemoglobin 31.3 pg (26-34); Mean Corpuscular Volume 94.9 fl (80-100); Mean Platelet Volume 9.7 fl (7.4-10.4); Monocytes Absolute Auto 0.7 K/mm3 (0.1-0.6); Monocytes Percent Auto 9.9 % (2.6-8.5); Neutrophils Absolute Auto 5.4 K/mm3 (1.3-6.7); Neutrophils Percent Auto 77.9 % (45.5-73.1); Platelet Count Result 194 k/mm3 (150-375); Red Blood Count 3.13 M/mm3 (4.6-6.20); Red Cell Distribution Width 20.1 % (11.5-14.5); White Blood Count 6.9 K/mm3 (4.5-10.0)
[2022-07-21 06:30] LABS: Alanine Aminotransferase 28 U/L (6-50); Albumin Level 3.3 g/dL (3.5-5.1); Alkaline Phosphatase 114 U/L (38-126); Anion Gap 3 mmol/L (8-16); Aspartate Amino Transferase 40 U/L (17-59); Bilirubin,Total 4.1 mg/dL (0.2-1.3); Blood Urea Nitrogen 7 mg/dL (9-20); Calcium 7.6 mg/dL (8.4-10.2); Carbon Dioxide 30 mmol/L (22-30); Chloride 94 mmol/L (98-107); Estimated CRCL calculation 146 ml/min; Estimated Glomerular Filt Rate > 60; Glucose 90 mg/dL (65-110); Potassium 3.9 mmol/L (3.4-5.0); Sodium 127 mmol/L (137-145)
[2022-07-21] MEDS: DORNASE ALFA INH SOLN 1 MG/ML 2.5 ML AMP 2.5 MG INHALATION (07:38)
[2022-07-21] MEDS: FLUTICASONE/UMECLIDIN/VILANTER 100-62.5-25 MCG ELLIPTA 1 PUFF INHALATION (07:38)
[2022-07-21] MEDS: FAMOTIDINE 20 MG TABLET PO (08:27)
[2022-07-21] MEDS: FUROSEMIDE 20 MG TABLET PO (08:27)
[2022-07-21] MEDS: SODIUM CHLORIDE 1 GM TABLET PO (08:27)
[2022-07-21] MEDS: SIMVASTATIN 20 MG TABLET PO (08:28)
[2022-07-21] MEDS: ASPIRIN 81 MG CHEWABLE TABLET PO (08:28)
[2022-07-21] MEDS: polyethylene glycoL 3350 17 GM POWD.PACK PO (08:28)
[2022-07-21] MEDS: RANOLAZINE 500 MG TAB.ER.12H PO (08:28)
[2022-07-21] MEDS: ENOXAPARIN 40 MG/0.4 ML SYRINGE SUB-Q (12:15)
[2022-07-21] MEDS: SILVERGEL (ELTA) 45 ML 1 APPLIC TOPICAL (12:16)
--- NOTE | 2022-07-21 13:22 | PC.NURSE ---
On 07/21/22, the student, [Ivania Velazquez], provided care and completed [facility] documentation on this patient. I have reviewed the student's documentation and agree with the findings.
[2022-07-21] MEDS: ACETAMINOPHEN 325 MG TABLET 650 MG PO (14:29)
--- NOTE | 2022-07-21 14:49 | PM.DS ---
DS: Admitting Diagnosis Discharge Date 07/21/22 Admitting Diagnosis Multiple falls, shoulder fracture DS: Discharge Diagnosis Discharge Diagnosis (1) Acute respiratory failure with hypoxemia: Code(s): J96.01 - Acute respiratory failure with hypoxia Status: Acute (2) Closed fracture of right proximal humerus: Qualifiers: Encounter type: subsequent encounter Fracture alignment: displaced Fracture morphology: other fracture Code(s): S42.201A - Unspecified fracture of upper end of right humerus, initial encounter for closed fracture Status: Acute (3) Rhabdomyolysis: Code(s): M62.82 - Rhabdomyolysis Status: Acute (4) Pneumonia: Code(s): J18.9 - Pneumonia, unspecified organism Status: Acute (5) Hypothyroidism: Code(s): E03.9 - Hypothyroidism, unspecified Status: Acute (6) Anemia: Code(s): D64.9 - Anemia, unspecified Status: Acute (7) Hyponatremia: Code(s): E87.1 - Hypo-osmolality and hyponatremia Status: Chronic DS: Summary Hospital Course Hospital Course: 71-year-old male patient who has a history of having multiple falls.? The patient was seen in the emergency room on 06/23/2022 after he fell in the parking lot at [employer] and landed on his right shoulder sustaining a right humeral fracture. He was discharged but presented again on 07/01/22 after being found down, noted to have rhabdomyolysis. Odd mentation could be related to narcotics. Narcotics decreased but still getting Randle. Still confused. Could be delirium from prolonged hospital course. Will stop Baclofen and Randle now. Check CT brain. Repeat TSH to ensure this is trending down. Follow Right Humerus Fracture: Post-op ORIF R humerus fracture 07/12. Continue current wound care. Continue therapy. Appreciate Ortho input. Up to chair, in sling. Awaiting placement Hyponatremia: Appreciate nephrology consultation. Currently on sodium chloride tabs 1g daily Baseline 129-134. Na mostly 127-129 now. Follow MSSA Bacteremia: Unlikely that this is a contaminant with 1/4 bld cx positive for MSSA Abx were started. Repeat bld cx negative. WBC normal MRSA cx negative. He has completed a course of abx. WBC remains normal and no fevers off the abx Acute Respiratory Failure: Better overall. Able to wean off BIPAP during the day and now he is refusing bipap. [place] related to PNA and/or fluid overload. He does have fluid in the flanks. BNP 1100 on admission. CXR 07/14 showing perihilar bilateral airspace opacities. O2 requirement improved; able to wean to room air Negative fluid balance noted. CXR 07/19 showing patchy bilateral airspace disease. Check Apnea link tonight since not able to do last night; he may benefit with at least O2 at night. Continue oral Lasix. Check BNP. Lasix IV once. Aspiration PNA: Zosyn started 07/01, de-escalated to unasyn 07/05, worsened resp failure 07/06 concerning for HAP so broadened abx to vanc + cefepime, now improving, d/c vanc 07/11. Completed a 10 day course of cefepime on 07/15 Weaned off O2 now. Repeat MBS noted. Continue thickened liquids and advance to moderate since weak cough. Added Pulmozyme given his weak cough. Change nebs to prn to see if he can sleep better at night. COPD, not in exacerbation: Do not suspect COPD exac. Sputum negative on 07/02. Yeast isolated in sputum on 07/03. Sputum cx 07/07 also growing yeast with Rosa albicans and tropicalis. No signs of fungal infection as patient is improving and no sign of abscess/empyema on CT chest so treatment held No wheezing but weak cough. Pulmozyme and CPT to help with sputum production. Make Atrovent prn since this can be drying. Change to Xopenex since Albuterol may be contributing to his inability to sleep. Acute Anemia: B12 normal, not iron deficient. No obvious retroperitoneal bleed by CT. FOBT negative. Etiology probably related to the extensive bruising noted on exam. s/p 7 units pRBCs total; Last unit was 3
[2022-07-22 14:58] LABS: Platelet Ab,Indirect (IgA) NEGATIVE (NEGATIVE); Platelet Ab,Indirect (IgG) NEGATIVE (NEGATIVE); Platelet Ab,Indirect (IgM) NEGATIVE (NEGATIVE)
== END 2022-07-21 16:55 | DRG 492 ==
LOC: ANHED 15:44 → ANHIMU 17:33 → ANH2MED 07-17 15:00
PROVIDERS: Internal Medicine; Internal Medicine Hematology & Oncology; Internal Medicine Nephrology; Nurse Practitioner; Orthopaedic Surgery; Admitting Provider Hospitalist; Emergency Provider Emergency Medicine; PCP Nurse Practitioner Adult Health; Visit Provider Student in an Organized Health Care Education/Training Program
PROC: 0PSF06Z Reposition Right Humeral Shaft with Intramedullary Internal Fixation Device, Open Approach (ICD-10-PCS; principal; 2022-07-12 14:00)
DX: S42.201A Unspecified fracture of upper end of right humerus, initial encounter for closed fracture (principal); J69.0 Pneumonitis due to inhalation of food and vomit; J96.01 Acute respiratory failure with hypoxia; M62.82 Rhabdomyolysis; E87.1 Hypo-osmolality and hyponatremia; G93.40 Encephalopathy, unspecified; D64.9 Anemia, unspecified; E80.6 Other disorders of bilirubin metabolism; J44.9 Chronic obstructive pulmonary disease, unspecified; E83.51 Hypocalcemia; E03.9 Hypothyroidism, unspecified
CPT/HCPCS: 36415; 36430; 36569; 36600; 70450; 71045; 71046; 71260; 73030; 73502; 74177; 76705; 80048; 80053; 80202; 81001; 81050; 82040; 82140; 82247; 82274; 82436; 82550; 82570; 82607; 82746; 82805; 82948; 83036; 83540; 83550; 83605; 83690; 83735; 83880; 83883; 83930; 83935; 84075; 84100; 84155; 84156; 84165; 84166; 84295; 84300; 84439; 84443; 84450; 84460; 84480; 84484; 84540; 85014; 85018; 85025; 85027; 85055; 85610; 85730; 85999; 86022; 86334; 86335; 86850; 86900; 86901; 86923; 87040; 87070; 87077; 87081; 87186; 87205; 88184; 88185; 92526; 92610; 92611; 93005; 94002; 94003; 94640; 94660; 94667; 94668; 96365; 96375; 97110; 97161; 97162; 97165; 97530; 97535; 99199; 99285; A4565; A9270; C1713; C1751; C8929; C9113; J0295; J0456; J0610; J0692; J0696; J1100; J1170; J1644; J1650; J1940; J2250; J2310; J2370; J2543; J2704; J2710; J2930; J2997; J3010; J3370; J3475; J3480; J7030; J7040; J7050; P9016; Q9957; Q9967

== ENCOUNTER 2022-07-22 13:41 | Inpatient (IN) | payer MEDICARE, OTHER, SELFPAY ==
[2022-07-22] VITALS (19 sets, daily range): BP systolic 92–152; BP diastolic 63–93; PULSE 59–80; RESP 14–27; TEMP 36.4–37; O2SAT 94–100
--- NOTE | ~2022-07-22 | XR_ITS ---
EXAMINATION: XR chest 1V portable INDICATION: Shortness of breath TECHNIQUE: Portable AP chest at 1443 hours COMPARISON: 07/19/2022 FINDINGS: A right upper extremity PICC ends with its tip in the distal superior vena cava. There are stable bilateral airspace and interstitial opacities. No pleural effusion or pneumothorax. Median alison rnotomy wires and mediastinal surgical clips are seen, likely from prior coronary artery bypass graft ing. Surgical clips in the right upper quadrant are likely from prior cholecystectomy. IMPRESSION: 1. Stable diffuse lung disease, consistent with pneumonia and/or pulmonary edema. Reviewed, dictated and finalized at location L. IMPRESSION: 1. Stable diffuse lung disease, consistent with pneumonia and/or pulmonary padmini smith
--- NOTE | ~2022-07-22 | XR_ITS ---
Portable chest x-ray Comparison: 07/22/2022 Clinical History: Shortness of breath Findings: Extensive bilateral pulmonary disease, groundglass and interstitial, similar to prior exam . No pleural effusion or pneumothorax. Cardiomediastinal silhouette is stable. Bones and soft tissue s are unremarkable. Impression: Stable extensive bilateral pulmonary disease. Reviewed, dictated and finalized at location . Impression: Stable extensive bilateral pulmonary disease.
--- NOTE | ~2022-07-22 | CT_ITS ---
EXAMINATION: CTA chest PE protocol DATE: 07/23/2022 13:56 INDICATION: Shortness of breath TECHNIQUE: Computed tomography angiography (CTA) of the chest was performed with 100 mL Omnipaque-350 intravenous contrast timed to evaluate the pulmonary arteries. Coronal maximum intensity projection 3D-reconstructions were created by the technologist. The dose-length product (DLP) was 588.09 mGy-cm. Automated exposure control and iterative reconstruction technique were employed. COMPARISON: 07/01/2022 FINDINGS: The pulmonary arteries are well-opacified. No pulmonary embolism is identified. Diffuse nod ular and airspace opacities are present which have worsened since the recent comparison. There are sm all pleural effusions. No pneumothorax is identified. There is enlargement of the main and central pu lmonary arteries, consistent with pulmonary hypertension. The heart size is normal. There are changes of coronary artery bypass grafting. Bilateral hilar lymphadenopathy is likely reactive. There has be en interval stabilization of the previously described right proximal humerus fracture. There is moder ate thoracic spondylosis. IMPRESSION: 1. No pulmonary embolus identified. 2. Worsening nodular and airspace opacities of the lungs, consistent with pneumonia. Reviewed, dictated and finalized at location B. IMPRESSION: 1. No pulmonary embolus identified. 2. Worsening nodular and airspace opacities of the lungs, consistent with pneum onia.
--- NOTE | ~2022-07-22 | XR_ITS ---
Right Humerus Technique: AP and lateral views were obtained. Clinical History: Pain, history of fracture COMPARISON: 07/01/2022 Findings: There are orthopedic pins transfixing fracture of the surgical neck of the humerus. Alignme nt is markedly improved as compared to prior preoperative radiographs. No new abnormality seen otherw ise. Visualized joint spaces are grossly preserved. Soft tissues are unremarkable. Impression: Status post orthopedic fixation of surgical neck fracture of the proximal right humerus since prior e xam. Reviewed, dictated and finalized at location M. Impression: Status post orthopedic fixation of surgical neck fracture of the proximal right humerus since prior exam.
--- NOTE | ~2022-07-22 | CT_ITS ---
EXAMINATION: CT abdomen pelvis w con DATE: 07/22/2022 20:37 INDICATION: Jaundice TECHNIQUE: Computed tomography (CT) of the abdomen and pelvis was performed with 100 CC Omnipaque 350 intravenous contrast. Automated exposure control and iterative reconstruction technique were employe d. Exam dose: 895.41 mGy-cm total exam DLP. COMPARISON: 07/20/2022 right upper quadrant abdominal ultrasound examination persistent 07/06/2022 CT abdomen pelvis 07/01 CT chest abdomen pelvis 03/17/2020 CT chest abdomen pelvis FINDINGS: There is patchy infiltrate and/atelectasis in the lower lung zones, more prominent in the r ight lower lobe. Status post sternotomy. Prominent coronary artery calcifications. Heart size is normal. No pericardia l or pleural effusion. Status post cholecystectomy. This likely accounts for mild prominence of the intrahepatic bile ducts. The common bile duct appears of normal caliber. No hepatic, splenic, pancreatic mass lesion. No pancreatic duct dilatation. Normal morphology of the adrenal glands. 9 mm calcification at Morison's pouch, of uncertain significance. This was not present on 07/06/2022. No renal mass lesion or hydroureteronephrosis. Prostate enlargement and calcifications. There is moderate diffuse thickening of the urinary bladder, likely due to prostatomegaly. Infrarenal approximately 3.8 cm abdominal aortic aneurysm. There is extensive calcification as well a s ectasia of the iliac arteries and prominent femoral artery calcifications. Small fat-containing left inguinal hernia. Small fat-containing umbilical hernia. There is interval improvement of edema of the abdominal and pelvic finney since 07/06/2022. Interval res olution of bilateral pleural effusions since 07/06/2022. Severe multilevel degenerative disease of the lumbar spine. Diffuse idiopathic skeletal hyperostosis of the thoracic spine. IMPRESSION: Status post cholecystectomy, which likely accounts for mild prominence of the intrahepat ic bile ducts Improvement of edema of the abdominal and pelvic finney and proximal thighs and resolution of bilatera l mild pleural effusions since 07/06/2022 Patchy bilateral lower lung infiltrates, most prominent in the right lower lobe Reviewed, dictated and finalized at Location A. Reviewed, dictated and finalized at location A. IMPRESSION: Status post cholecystectomy, which likely accounts for mild promin ence of the intrahepatic bile ducts Improvement of edema of the abdominal and pelvic finney and proximal thighs and resolution of bilateral mild pleural effusions since 07/06/2022 Patchy bilateral lower lung infiltrates, most prominent in the right lower lobe
--- NOTE | ~2022-07-22 | CT_ITS ---
EXAMINATION:CT chest high resolution wo mi DATE: 07/26/2022 14:02 INDICATION: Acute respiratory failure. TECHNIQUE: Computed tomography (CT) of the chest was performed without intravenous contrast. Automate d exposure control and iterative reconstruction technique were employed. The dose-length product (DLP ) was 384.67 mGy-cm. COMPARISON: Chest CT 07/23/2022, 07/01/2022, 09/16/2021 FINDINGS: There is mild scarring at the lung apices. There are small pleural effusions. There are pat james airspace and groundglass opacities in the upper lobes, right lower lobe, and right middle lobe wi th architectural distortion. There is mild atelectasis in left lower lobe. There is septal thickening bilaterally. The heart size is normal. There are changes of coronary artery bypass grafting. A left upper extremity peripherally inserted central venous catheter (PICC) is seen with tip in the superior vena cava. Calcifications in the liver and spleen are consistent with old granulomatous disease. The re is a comminuted fracture of proximal right humerus with internal fixation. There is mild thoracic spondylosis. IMPRESSION: 1. Stable diffuse lung disease, likely a combination of pneumonia and mild pulmonary edema. 2. Worsened small pleural effusions. Reviewed, dictated and finalized at location A. IMPRESSION: 1. Stable diffuse lung disease, likely a combination of pneumonia and mild pulm onary edema. 2. Worsened small pleural effusions.
--- NOTE | ~2022-07-22 | XR_ITS ---
Portable chest x-ray Comparison: 07/23/2022 Clinical History: Pneumonia Findings: Extensive interstitial disease bilaterally similar to prior exam, probable mild patchy roddy und glass opacity. No pleural effusion or pneumothorax. Cardiomediastinal silhouette is stable. Bone s and soft tissues are unremarkable. Impression: Stable extensive mixed interstitial and groundglass pulmonary disease. Correlate for chronic intersti tial disease and/or superimposed acute pneumonia. Reviewed, dictated and finalized at location . Impression: Stable extensive mixed interstitial and groundglass pulmonary disease. Correlat e for chronic interstitial disease and/or superimposed acute pneumonia.
--- NOTE | 2022-07-22 13:48 | ECG_ITS ---
Measurements Intervals [place] Rate: 62 P: 66 [place]: 195 QRS: 46 QRSD: 99 T: 56 QT: 424 QTc: 433 Interpretive Statements SINUS RHYTHM CANNOT RULE OUT SEPTAL INFARCT, AGE INDETERMINATE BORDERLINE T WAVE ABNORMALITY- ANTERIOR LEADS BASELINE ARTIFACT- II, III, V4-V6 ABNORMAL ECG COMPARED TO ECG 07/07/2022 03:28:38 MYOCARDIAL INFARCT FINDING NOW PRESENT Electronically Signed On 07-22-2022 15:54:24 CDT by Shady Reyes D.O.
--- NOTE | 2022-07-22 14:03 | ED.WEAKNESS ---
HPI - Weakness General Chief complaint: Weakness Stated complaint: LETHARGY, JAUNDICE, DECREASED O2 Time Seen by Provider: 07/22/22 13:48 Source: RN notes reviewed and other (RN phone call from [facility]) Mode of arrival: EMS Limitations: altered mental status and clinical condition History of Present Illness HPI Narrative: Patient is a 71-year-old male with a history of COPD, hypertension, hypothyroidism, anemia, right humeral fracture, recent admission for pneumonia and rhabdomyolysis, returning to the emergency department from [facility] for shortness of breath, low oxygen saturations at rehab facility this morning. Per nursing staff at the facility, they told me and report that his morning oxygen level was 79% on room air. Patient was placed on 3 L oxygen via nasal cannula and monitored throughout the morning and was noted to have increasingly coarse breath sounds and difficulty breathing. Respiratory therapy did respond to the patient he was suctioned twice without much improvement in his symptoms. Patient then transferred via EMS to our facility. My Assessment: Patient is alert and oriented to person, place, and to time. He is fatigued appearing but arousable. No significant tachypnea. He is hypoxic on room air. Pt oxygen titrated to 3L NC. Pt denies pain. Pt reports difficulty breathing overnight and states he did not feel well when they discharged him to the rehabilitation facility yesterday. He reports generalized weakness. He denies chest pain. He denies fever. Pt reports feeling fatigued. I reviewed the patient's recent admission history, hospital course and discharge summary from yesterday. Related Data Home Medications Medication Instructions Recorded Confirmed aspirin 81 mg chewable tablet 2 tablet PO DAILY 07/21/20 07/01/22 baclofen 10 mg tablet 10 mg PO TID PRN Pain 07/21/20 07/02/22 escitalopram oxalate 20 mg tablet 20 mg PO HS 07/21/20 07/01/22 fluticasone fur. 100 mcg-umeclid 1 inh inhalation DAILY 07/21/20 07/01/22 62.5 mcg-vilant 25 mcg inhalat.powder (Trelegy Ellipta) nitroglycerin 400 mcg/spray 1 spray translingual Q5M PRN Chest 07/21/20 07/01/22 translingual Pain simvastatin 20 mg tablet 20 mg PO DAILY 07/21/20 07/01/22 esomeprazole magnesium 40 mg 40 mg PO DAILY 03/22/21 07/01/22 capsule,delayed release ranolazine 500 mg tablet,extended 500 mg PO Q12H 03/22/21 07/01/22 release,12 hr Allergies Allergy/AdvReac Type Severity Reaction Status Date / Time atorvastatin Allergy Mild MADE ME Verified 07/22/22 17:51 SICK terbinafine Allergy Mild MADE ME Verified 07/22/22 17:51 SICK methocarbamol AdvReac Mild MADE ME Verified 07/22/22 17:51 SICK Review of Systems Review of Systems: CONSTITUTIONAL: Denies fever CARDIOVASCULAR: Denies chest pain RESPIRATORY: Patient reports cough and shortness of breath GASTROINTESTINAL: Denies abdominal pain SKIN: Denies rash MUSCULOSKELETAL: Denies back pain NEUROLOGIC: Denies headache, reports fatigue, reports generalized weakness ROS unobtainable: Yes unobtainable due to mental status PMFSH Past Medical History Medical History Basal cell carcinoma Closed fracture of right proximal humerus ORIF July 12, 2022 with Patiño staple device COPD (chronic obstructive pulmonary disease) Coronary artery disease Dr. Alhaji ALCANTAR (gastroesophageal reflux disease) High cholesterol History of thyroid cancer Treated with chemotherapy and radiation Hypertension Hypothyroidism Lung cancer Status post right upper lobe pneumonectomy Peripheral neuropathy Surgical History Surgical History H/O right inguinal hernia repair (08/06/20) Repair of right inguinal hernia with 6 cm Parietex hernia mesh system History of bilateral carpal tunnel release History of colonoscopy History of coronary angioplasty History of esophag
[2022-07-22 14:58] LABS: Basophils Percent Auto 0.3 % (0.2-1.2); Eosinophils Absolute Auto 0.2 K/mm3 (0-0.3); Eosinophils Percent Auto 3.4 % (0-4.4); Hematocrit 32.1 % (42.0-52.0); Hemoglobin 10.4 g/dL (14.0-18.0); Immature Granulocyte Absolute 0.08 K/mm3 (0.00-0.031); Immature Granulocyte Percent A 1.4 % (0-0.5); Lymphocytes Absolute Auto 0.55 K/mm3 (0.9-3.2); Lymphocytes Percent Auto 9.4 % (18.3-44.2); Mean Corpuscular HGB Conc 32.4 g/dl (32-36); Mean Corpuscular Hemoglobin 30.7 pg (26-34); Mean Corpuscular Volume 94.7 fl (80-100); Mean Platelet Volume 9.5 fl (7.4-10.4); Monocytes Absolute Auto 0.8 K/mm3 (0.1-0.6); Monocytes Percent Auto 13.5 % (2.6-8.5); Neutrophils Absolute Auto 4.2 K/mm3 (1.3-6.7); Platelet Count Result 281 k/mm3 (150-375); Red Blood Count 3.39 M/mm3 (4.6-6.20); Red Cell Distribution Width 19.9 % (11.5-14.5); White Blood Count 5.9 K/mm3 (4.5-10.0)
[2022-07-22 15:08] LABS: Alveolar/Arterial O2 Gradient 61.6 mmHg; Base Excess ABG 3.2 mEq/l (+/-2.0); Carboxyhemoglobin 1.9 % THb (0-2.0); Fractional Inspired Oxygen 32 %; HCO3 ABG 30.2 mEq/l (22.0-26.0); Methemoglobin ABG 0.2 %THb (0-1.5); Oxygen Content ABG 15.4 %vol (16.0-22.0); Oxyhemoglobin 94.4 % THb (90.0-100.0); PO2 ABG 98.7 mmHg (80.0-100.0); PO2 FiO2 Ratio Arterial Blood 3.08 %; Reduced Hemoglobin 3.5 %THb (0-5.0); Total Hemoglobin 11.5 g/dL (12.0-18.0); pH ABG 7.334 (7.350-7.450)
[2022-07-22 15:09] LABS: Device NASAL CANNULA; Modified Allen's Test Pass; Site Drawn RIGHT RADIAL
[2022-07-22 15:10] LABS: Partial Thromboplastin Time 24.8 SECONDS (22.3-36.8)
[2022-07-22] MEDS: SODIUM CHLORIDE 0.9% IV 500 ML 999 ML IV CONT (15:16)
[2022-07-22 15:24] LABS: Lactic Acid Reflex 0.5 mmol/L (0.7-2.0)
[2022-07-22 15:33] LABS: NT Pro B Type Natriuretic Pept 580 pg/mL (19.9-100)
[2022-07-22 15:34] LABS: Influenza A QL RT-PCR Negative (Negative); Influenza B QL RT-PCR Negative (Negative); RSV RNA, RT-PCR Negative (Negative); SARS-CoV-2 RNA PCR Negative
[2022-07-22 15:38] LABS: INR 1.1; Prothrombin Time 13.9 Seconds (11.1-14.7)
[2022-07-22 16:13] LABS: Appearance Urine Clear (Clear); Bilirubin Urine Negative (Negative); Blood Urine Negative (Negative); Color Urine Yellow (Yellow); Glucose Urine UA Negative (Negative); Ketones Urine Negative (Negative); Leukocyte Esterase Ur Negative LEU/UL (Negative); Nitrate Urine Negative (Negative); Protein Urine Negative (Negative); Specific Grav Ur 1.008 (1.001-1.035)
[2022-07-22] MEDS: CEFEPIME 2 GM/NS 50 ML 2 GM/50 ML BAG IVPB ×2 (16:15→22:52)
[2022-07-22 16:26] LABS: Add Urine Microscopic? NO
[2022-07-22] MEDS: methylPREDNISolone SOD SUCC 125 MG VIAL IV PUSH (16:53)
[2022-07-22] MEDS: ALBUTEROL SULFATE NEB 2.5 MG/3 ML INH 5 MG INHALATION (16:59)
[2022-07-22] MEDS: IPRATROPIUM BR 0.02% INH SOLN 0.5 MG/2.5 ML VIAL INHALATION (16:59)
[2022-07-22 17:00] LABS: Alveolar/Arterial O2 Gradient 57.4 mmHg; Base Excess ABG 1.9 mEq/l (+/-2.0); Carboxyhemoglobin 1.6 % THb (0-2.0); Device NON-INVASIVE VENT; Fractional Inspired Oxygen 30 %; HCO3 ABG 29.1 mEq/l (22.0-26.0); Methemoglobin ABG 0.4 %THb (0-1.5); Modified Allen's Test Pass; Oxygen Content ABG 14.4 %vol (16.0-22.0); Oxygen Saturation ABG 95.6 % (95.0-100.0); Oxyhemoglobin 92.7 % THb (90.0-100.0); PO2 ABG 87.2 mmHg (80.0-100.0); PO2 FiO2 Ratio Arterial Blood 2.91 %; Reduced Hemoglobin 5.3 %THb (0-5.0); Site Drawn RIGHT RADIAL; pH ABG 7.311 (7.350-7.450)
[2022-07-22 17:01] LABS: Non-Invasive Expiratory Pressure 7 CMH2O; Non-Invasive Inspiratory Pressure 14 CMH2O; Non-Invasive Vent Rate 16 /MIN
--- NOTE | 2022-07-22 18:00 | ADMGEN ---
This patient, Cecilio Bergeron, was admitted to IMU Room 201-01. Patient/family oriented to hospital policies and general routines including ID bracelet, bed and alarms, visiting hours, pain management, procedures, bathroom and other care routines, personal items, smoking policy, room service/diet, and visiting hours. Information on how to activate the Rapid Response Team has been discussed. Patient/Family are encouraged to report perceived risks to care and to ask questions if they do not understand what they are told or what they should do.
[2022-07-22 19:10] LABS: Estimated CRCL calculation 140 ml/min; Estimated Glomerular Filt Rate > 60
[2022-07-22 19:22] LABS: Troponin I < 0.012 ng/mL (0.000-0.034)
--- NOTE | 2022-07-22 19:57 | PM.IMHP ---
H&P: HPI History of Present Illness Date/Time: 07/22/22 19:57 Chief Complaint: Weakness Narrative: This is a 71-year-old male patient has a history of hypothyroidism, COPD and hypertension. The patient was recently admitted here for right humeral fracture and was here for recent admission for pneumonia and rhabdomyolysis. The patient was admitted to rehab facility today and had been on room air. However the patient was noted to be lethargic and had a decreased O2 saturation at the facility. The patient's O2 saturation dropped down to 79%. The patient had been placed on 3 L per nasal cannula and was monitored throughout the morning. The patient had increase in coarse breath sounds and difficulty breathing. Respiratory therapy attempted to suction the patient twice without much improvement in his symptoms. EMS was then activated. His H&H is 10.4 and 32.1 which is above his baseline. ABGs pH 7.334 and repeat is 7.311. The patient was placed on a BiPAP. Troponins negative. The patient has extensive bruising to his right shoulder and sutures are intact to right shoulder status post ORIF of right humerus fracture on 07/12/2022. Abdominal pelvis CT was read astatus post cholecystectomy, which likely accounts for mild prominence of the intrahepatic bile ducts Improvement of edema of the abdominal and pelvic finney and proximal thighs and resolution of bilateral mild pleural effusions since 07/06/2022 Patchy bilateral lower lung infiltrates, most prominent in the right lower lobe Chest x-ray read as stable diffuse lung disease consistent with pneumonia and/or pulmonary edema. Head CT on 07/20/2022 was read as no acute intracranial process. The patient was given IV fluids, vancomycin, cefepime, nebulizer treatment, Solu-Medrol, and vancomycin. The patient is being patient status on the date of service of 07/23/2019 Review of Systems Review of Systems: All systems reviewed & are unremarkable except as noted in HPI and below Constitutional: Constitutional: Reports as per HPI and Reports no additional constitutional complaints Eyes: Eyes: Reports as per HPI and Reports no additional eye complaints ENT: Reports system reviewed and no additional complaints, except as documented and Reports Normal hearing present Cardiovascular: Cardiovascular: Reports no additional cardiovascular complaints Respiratory: Respiratory: Reports no additional respiratory complaints and Reports no additional respiratory complaints Gastrointestinal: Gastrointestinal: Reports as per HPI and Reports no additional gastrointestinal complaints Musculoskeletal: Musculoskeletal: Reports no additional musculoskeletal complaints Integumentary/Breasts: Skin/Breast: Reports system reviewed and no additional complaints, except as docu and Reports as per HPI Neurologic: Reports system reviewed and no additional complaints, except as documented, Reports as per HPI and Reports Normal hearing present Psychiatric: Psychiatric: Reports no additional psychiatric complaints and Reports as per HPI Endocrine: Endocrine: Reports no additional endocrine complaints Hematologic/Lymphatic: Hematologic/Lymphatic: Reports no additional hematologic/lymphatic complaints Allergic/Immunologic: Allergic/Immunologic: Reports no additional allergic/immunologic complaints [facility] Past Medical History Medical History (Updated 07/22/22 @ 18:01 by Gemini Mcguire MD) Basal cell carcinoma Closed fracture of right proximal humerus ORIF July 12, 2022 with Patiño staple device COPD (chronic obstructive pulmonary disease) Coronary artery disease Dr. Mane GERD (gastroesophageal reflux disease) High cholesterol History of thyroid cancer Treated with chemotherapy and radiation Hypertension Hypothyroidism Lung cancer Status post right upper lobe pneumonectomy Peripheral neuropathy Surgical History Surgical History (Updated 07/23/22 @ 00:25 by Makeda Copeland NP) H/O arthroscopic knee surger
[2022-07-22] MEDS: CENTRAL LINE FLUSH 10 ML IV PUSH (20:58)
[2022-07-22 21:04] LABS: Hepatitis B Surface Antigen Negative (Negative)
[2022-07-22 21:10] LABS: HAV RESULT Negative (Negative); Hepatitis B Core IgM Result Negative (Negative)
[2022-07-22 21:19] LABS: Troponin I < 0.012 ng/mL (0.000-0.034)
[2022-07-22 21:21] LABS: Hepatitis C Virus Antibody Negative (Negative)
[2022-07-23] VITALS (24 sets, daily range): BP systolic 95–154; BP diastolic 36–76; PULSE 61–95; RESP 16–24; TEMP 36.3–37.1; O2SAT 94–100; BMI 23.2
[2022-07-23] MEDS: ALBUTEROL SULFATE NEB 2.5 MG/3 ML INH INHALATION ×4 (01:12→22:00)
[2022-07-23 03:39] LABS: Alveolar/Arterial O2 Gradient 71.7 mmHg; Base Excess ABG 1.8 mEq/l (+/-2.0); Device NON-INVASIVE VENT; Fractional Inspired Oxygen 30 %; HCO3 ABG 26.8 mEq/l (22.0-26.0); Modified Allen's Test Pass; Non-Invasive Expiratory Pressure 8 CMH2O; Non-Invasive Inspiratory Pressure 16 CMH2O; Non-Invasive Vent Rate 16 /MIN; Oxygen Content ABG 15.5 %vol (16.0-22.0); Oxyhemoglobin 95.3 % THb (90.0-100.0); PCO2 ABG 43.6 mmHg (35.0-45.0); PO2 FiO2 Ratio Arterial Blood 3.03 %; Site Drawn RIGHT RADIAL; Total Hemoglobin 11.5 g/dL (12.0-18.0); pH ABG 7.406 (7.350-7.450)
[2022-07-23 04:44] LABS: Alanine Aminotransferase 28 U/L (6-50); Albumin Level 3.4 g/dL (3.5-5.1); Alkaline Phosphatase 126 U/L (38-126); Anion Gap 3 mmol/L (8-16); Aspartate Amino Transferase 36 U/L (17-59); Bilirubin,Total 3.8 mg/dL (0.2-1.3); Blood Urea Nitrogen 6 mg/dL (9-20); CRP 3.5 mg/dL (<1.0); Calcium 7.6 mg/dL (8.4-10.2); Carbon Dioxide 31 mmol/L (22-30); Chloride 95 mmol/L (98-107); Estimated CRCL calculation 146 ml/min; Estimated Glomerular Filt Rate > 60; Glucose 79 mg/dL (65-110); Potassium 3.3 mmol/L (3.4-5.0); Sodium 129 mmol/L (137-145)
[2022-07-23 04:58] LABS: Troponin I < 0.012 ng/mL (0.000-0.034)
[2022-07-23] MEDS: methylPREDNISolone SOD SUCC 125 MG VIAL 60 MG IV PUSH ×3 (05:07→21:14)
[2022-07-23] MEDS: CENTRAL LINE FLUSH 10 ML IV PUSH ×3 (05:08→21:15)
[2022-07-23] MEDS: CEFEPIME 2 GM/NS 50 ML 2 GM/50 ML BAG IVPB (05:17)
[2022-07-23] MEDS: LEVOTHYROXINE SODIUM INJ 100 MCG/5 ML VIAL 87.5 MCG IV PUSH (05:34)
[2022-07-23 06:38] LABS: Lactic Acid Reflex 1.2 mmol/L (0.7-2.0)
[2022-07-23 06:39] LABS: Alanine Aminotransferase 29 U/L (6-50); Albumin Level 3.6 g/dL (3.5-5.1); Alkaline Phosphatase 132 U/L (38-126); Anion Gap 4 mmol/L (8-16); Aspartate Amino Transferase 29 U/L (17-59); Bilirubin,Total 2.8 mg/dL (0.2-1.3); Blood Urea Nitrogen 8 mg/dL (9-20); Calcium 7.5 mg/dL (8.4-10.2); Carbon Dioxide 32 mmol/L (22-30); Chloride 96 mmol/L (98-107); Estimated CRCL calculation 120 ml/min; Estimated Glomerular Filt Rate > 60; Glucose 108 mg/dL (65-110); Lactate Dehydrogenase 568 U/L (120-246); Magnesium 2.2 mg/dL (1.6-2.3); Potassium 3.5 mmol/L (3.4-5.0); Sodium 132 mmol/L (137-145)
[2022-07-23] MEDS: FLUTICASONE/UMECLIDIN/VILANTER 100-62.5-25 MCG ELLIPTA 1 PUFF INHALATION (08:41)
[2022-07-23] MEDS: IPRATROPIUM BR 0.02% INH SOLN 0.5 MG/2.5 ML VIAL INHALATION ×4 (08:41→22:00)
[2022-07-23] MEDS: RANOLAZINE 500 MG TAB.ER.12H PO ×2 (09:06→21:14)
[2022-07-23] MEDS: PANTOPRAZOLE SODIUM IV 40 MG VIAL IV PUSH ×2 (09:06→21:14)
[2022-07-23] MEDS: SIMVASTATIN 20 MG TABLET PO (09:06)
[2022-07-23] MEDS: SODIUM CHLORIDE 1 GM TABLET PO (09:06)
[2022-07-23] MEDS: FUROSEMIDE INJ 40 MG/4 ML VIAL 20 MG IV PUSH (09:08)
--- NOTE | 2022-07-23 10:18 | PM.IMPN ---
Progress Note: A&P Assessment and Plan (1) Acute respiratory failure with hypoxemia: Code(s): J96.01 - Acute respiratory failure with hypoxia Status: Acute Assessment and Plan: On BIPAP, uncertain etiology, could be recurrent silent aspiration? PCT was 0, CXR showed some congestion but no definitive PNA, no fevers nor leuk, blood cultures pending, ABG in ER showed hypercapnia, resolved with BIPAP overnight Started on vanc + cefepime in the ER 07/22, these were discontinued 07/23 as the patient just completed a long course of abx and does not appear to infected at this time, PCT=0 on admission, monitor off abx, follow cultures Cont home oral lasix at this time ST eval pending, may need MBS, cont NPO for now Recheck ABG now that he is off BIPAP, check CTA r/o PE (2) Closed fracture of right proximal humerus: Qualifiers: Encounter type: subsequent encounter Fracture alignment: displaced Fracture morphology: other fracture Code(s): S42.201A - Unspecified fracture of upper end of right humerus, initial encounter for closed fracture Status: Acute Assessment and Plan: Post-op ORIF R humerus fracture 07/12. Continue current wound care. Continue therapy. Sutures to be removed 07/27 per ortho. [place] prn pain. (3) Hypothyroidism: Code(s): E03.9 - Hypothyroidism, unspecified Status: Acute Assessment and Plan: Elevated TSH noted on admission. Levothyroxine was increased from 150 to 175 mcg. Normally, TSH should be undetectable with hx of thyroid cancer. Recheck in 4-6 weeks outpatient (4) Anemia: Code(s): D64.9 - Anemia, unspecified Status: Acute Assessment and Plan: Etiology probably related to the extensive bruising noted on exam, resolving from last admission Improving significantly, hgb 11.7 today 07/23, received 7 units pRBCs last admission, monitor (5) Hyponatremia: Code(s): E87.1 - Hypo-osmolality and hyponatremia Status: Chronic Assessment and Plan: Currently on sodium chloride tabs 1g daily Baseline 129-134, 132 today 07/23, at baseline, continue current management (6) Hyperbilirubinemia: Code(s): E80.6 - Other disorders of bilirubin metabolism Status: Acute Assessment and Plan: Mostly indirect. RUQ showing normal liver and no masses of ductal dilitation. Normal portal flow. GB removed. There is a 9mm calcification of unclear significance Hyperbili probably [place], do not suspect insidious etiology, monitor (7) COPD (chronic obstructive pulmonary disease): Qualifiers: COPD type: unspecified COPD Qualified Code(s): J44.9 - Chronic obstructive pulmonary disease, unspecified Code(s): J44.9 - Chronic obstructive pulmonary disease, unspecified Status: Acute Assessment and Plan: Started on solumedrol + nebs for possible COPD exacerbation, repeat CXR stable, hypercapnia resolved with BIPAP, weaned to 2L nc, will obtain pulm consult due to suspected COPD hypercapnia contributing to recurrent desatting episodes Sputum negative on 07/02. Yeast isolated in sputum on 07/03. Sputum cx 07/07 also growing yeast with Rosa albicans and tropicalis. (8) Chronic narcotic dependence: Code(s): F11.20 - Opioid dependence, uncomplicated Status: Acute Assessment and Plan: could be contributing to frequent ams episodes currently on baclofen + xanax + norco, holding baclofen and xanax this admission for now, continue norco (9) Hypertension: Code(s): I10 - Essential (primary) hypertension Status: Acute Assessment and Plan: Patient's blood pressure was reviewed on 07/23 Blood pressure stable. Will continue to monitor (10) Thrombocytopenia: Code(s): D69.6 - Thrombocytopenia, unspecified Status: Acute Assessment and Plan: Resolved from last admission (11) Frequent falls: Code(s): R29.6 - Repeated fa
[2022-07-23 10:36] LABS: Basophils Percent Auto 0.2 % (0.2-1.2); Hematocrit 37.3 % (42.0-52.0); Hemoglobin 11.7 g/dL (14.0-18.0); Immature Granulocyte Absolute 0.05 K/mm3 (0.00-0.031); Immature Granulocyte Percent A 0.9 % (0-0.5); Lymphocytes Absolute Auto 0.36 K/mm3 (0.9-3.2); Lymphocytes Percent Auto 6.8 % (18.3-44.2); Mean Corpuscular HGB Conc 31.4 g/dl (32-36); Mean Corpuscular Volume 98.9 fl (80-100); Mean Platelet Volume 9.3 fl (7.4-10.4); Monocytes Absolute Auto 0.4 K/mm3 (0.1-0.6); Monocytes Percent Auto 7.8 % (2.6-8.5); Neutrophils Absolute Auto 4.5 K/mm3 (1.3-6.7); Neutrophils Percent Auto 84.3 % (45.5-73.1); Platelet Count Result 338 k/mm3 (150-375); Red Blood Count 3.77 M/mm3 (4.6-6.20); Red Cell Distribution Width 19.9 % (11.5-14.5); White Blood Count 5.3 K/mm3 (4.5-10.0)
[2022-07-23 11:10] LABS: CRP 3.1 mg/dL (<1.0)
[2022-07-23 14:38] LABS: D Dimer 2.46 ug/mL (<0.48)
--- NOTE | 2022-07-23 15:08 | PCSTNOTE ---
Please refer to the Bedside Swallow Evaluation in the EMR. Please note, silent aspiration cannot be ruled out at bedside.
[2022-07-23 16:35] LABS: Device NASAL CANNULA; HCO3 VBG 30.7 mEq/l (24.0-30.0); PCO2 VBG 41.8 mmHg (42.0-48.0); PO2 VBG 31.1 mmHg (35.0-45.0); pH VBG 7.484 (7.300-7.400)
[2022-07-23] MEDS: MICAFUNGIN SODIUM 100 MG in SODIUM CHLORIDE 0.9% IV 100 ML IVPB (17:29)
--- NOTE | 2022-07-23 20:00 | PM.CNPUL ---
History of Present Illness History of Present Illness Consult date: 07/25/22 Requesting physician: Nilsa Patterson DO Chief complaint: hypoxic hypercarbic respiratory failure,jaundice,w Narrative: NEW : Cecilio Bergeron is a 71-year-old man with multiple falls. He had a fall 06/[address] [facility], R humerus fracture, was sent home from ER. He returned July 01 with another fall and rhabdomyolysis, pneumonia in the upper lobes, was admitted July 01 through Jul 21, went to rehab. He was there only for a few days when he was transferred back to hospital with increased shortness of breath, cough, sputum production. PMH: COPD, hypertension, CAD, lung cancer 2014 with partial pneumonectomy RUL, thyroid cancer admitted for weakness and fall. DATA * 07/23/2022 CTA : ?No pulmonary embolus identified. 2. Worsening nodular and airspace opacities of the lungs, consistent with pneumonia. [facility] Past Medical History Medical History (Updated 07/23/22 @ 10:36 by Nilsa Patterson DO) Basal cell carcinoma Closed fracture of right proximal humerus ORIF July 12, 2022 with Pat[place]ño staple device COPD (chronic obstructive pulmonary disease) Coronary artery disease Dr. Mane Frequent falls GERD (gastroesophageal reflux disease) High cholesterol History of thyroid cancer Treated with chemotherapy and radiation Hypertension Hypothyroidism Lung cancer Status post right upper lobe pneumonectomy Peripheral neuropathy Thrombocytopenia Surgical History Surgical History (Updated 07/23/22 @ 00:25 by Makeda Copeland NP) H/O arthroscopic knee surgery H/O right inguinal hernia repair (08/06/20) Repair of right inguinal hernia with 6 cm Parietex hernia mesh system History of bilateral carpal tunnel release History of colonoscopy History of coronary angioplasty History of esophagogastroduodenoscopy (EGD) 2006 History of hemorrhoidectomy History of left inguinal hernia repair (11/2018) With 8 cm of [address] mesh [address]. Stapleton History of medial meniscus repair of right knee (~2005) History of pneumonectomy (~2014) Right upper lobe due to lung cancer History of ventral hernia repair (~06/2006) Gastric volvulus with ventral hernia repair Hx of CABG (~09/2002) 4 vessel CABG Hx of cholecystectomy S/P ORIF (open reduction internal fixation) fracture Right shoulder 07/12/2022 Status post cataract extraction of both eyes with insertion of intraocular lens (~2016) Family History Family History Mother MVA (motor vehicle accident) Father Gunshot wound Sibling Heart disease Other Family history of cardiovascular disease Social History Social History (Updated 07/23/22 @ 00:26 by Makeda Copeland NP) Social History: He is [facility]. He lives alone. He has smoked as much as a pack of cigarettes per day since he was 20 years old. He is now down to 4-5 cigarettes a day. 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 code status full code Smoking packs per day: 1 Smoking cigarettes per day: 20.0 Years smoked: 50 Smoking pack-years: 50.00 Smoking status: Former smoker Tobacco type: cigarettes Second hand tobacco smoke exposure: Yes Alcohol intake: former Drinks per week: 7 Alcohol use details: STATES LAST DRINK AUGUST 31, 1984 Substance use: former Substance use type: does not use Other substance usage details: hydrocodone, tylenol arthritis Lack of Transportation: No Lack of Food: Never True Current Housing: I Have Housing Concerned About Future Housing: No Difficulty Paying Gas/Electric Bills: No Difficulty Paying for Meds: No Currently Unemployed: No Education: Don't Know Difficulty w/ Childcare or Family Care: No Living arrangements: alone Occupation/Education: retired Gender identity (if verbalized by the
[2022-07-23] MEDS: ESCITALOPRAM OXALATE 10 MG TABLET 20 MG PO (21:14)
[2022-07-24] VITALS (22 sets, daily range): BP systolic 124–162; BP diastolic 59–72; PULSE 59–72; RESP 18–20; TEMP 36.4–36.9; O2SAT 92–98
[2022-07-24] MEDS: CENTRAL LINE FLUSH 10 ML IV PUSH ×3 (05:56→22:00)
[2022-07-24] MEDS: methylPREDNISolone SOD SUCC 125 MG VIAL 60 MG IV PUSH ×3 (05:56→22:00)
[2022-07-24] MEDS: LEVOTHYROXINE SODIUM 25 MCG TABLET PO (05:57)
[2022-07-24] MEDS: LEVOTHYROXINE SODIUM 150 MCG TABLET PO (05:57)
[2022-07-24] MEDS: IPRATROPIUM BR 0.02% INH SOLN 0.5 MG/2.5 ML VIAL INHALATION ×3 (08:14→21:16)
[2022-07-24] MEDS: ALBUTEROL SULFATE NEB 2.5 MG/3 ML INH INHALATION ×3 (08:15→21:16)
[2022-07-24] MEDS: MICAFUNGIN SODIUM 100 MG in SODIUM CHLORIDE 0.9% IV 100 ML IVPB (08:49)
[2022-07-24] MEDS: SIMVASTATIN 20 MG TABLET PO (08:50)
[2022-07-24] MEDS: SODIUM CHLORIDE 1 GM TABLET PO (08:50)
[2022-07-24] MEDS: PANTOPRAZOLE 40 MG TABLET PO (08:51)
[2022-07-24] MEDS: RANOLAZINE 500 MG TAB.ER.12H PO ×2 (08:51→20:43)
[2022-07-24] MEDS: FUROSEMIDE 20 MG TABLET PO (08:52)
[2022-07-24 08:57] LABS: Hematocrit 30.9 % (42.0-52.0); Immature Granulocyte Absolute 0.07 K/mm3 (0.00-0.031); Lymphocytes Absolute Auto 0.43 K/mm3 (0.9-3.2); Mean Corpuscular HGB Conc 32.4 g/dl (32-36); Mean Corpuscular Hemoglobin 30.3 pg (26-34); Mean Corpuscular Volume 93.6 fl (80-100); Mean Platelet Volume 8.8 fl (7.4-10.4); Monocytes Absolute Auto 0.4 K/mm3 (0.1-0.6); Monocytes Percent Auto 5.2 % (2.6-8.5); Neutrophils Absolute Auto 6.3 K/mm3 (1.3-6.7); Neutrophils Percent Auto 87.8 % (45.5-73.1); Platelet Count Result 376 k/mm3 (150-375); Red Cell Distribution Width 19.9 % (11.5-14.5); White Blood Count 7.2 K/mm3 (4.5-10.0)
[2022-07-24 09:19] LABS: Alanine Aminotransferase 34 U/L (6-50); Albumin Level 3.5 g/dL (3.5-5.1); Alkaline Phosphatase 132 U/L (38-126); Anion Gap 4 mmol/L (8-16); Aspartate Amino Transferase 35 U/L (17-59); Bilirubin,Total 2.1 mg/dL (0.2-1.3); Blood Urea Nitrogen 11 mg/dL (9-20); Calcium 7.7 mg/dL (8.4-10.2); Carbon Dioxide 32 mmol/L (22-30); Chloride 93 mmol/L (98-107); Estimated CRCL calculation 120 ml/min; Estimated Glomerular Filt Rate > 60; Glucose 123 mg/dL (65-110); Potassium 3.5 mmol/L (3.4-5.0); Sodium 129 mmol/L (137-145)
--- NOTE | 2022-07-24 09:34 | PM.IMPN ---
Progress Note: A&P Assessment and Plan (1) Acute respiratory failure with hypoxemia: Code(s): J96.01 - Acute respiratory failure with hypoxia Status: Acute Assessment and Plan: On BIPAP at admission, was weaned to RA and then suddenly had 79% on RA and required BIPAP support, then able to be weaned off within 12 hours, uncertain etiology, could be recurrent silent aspiration? flash pulm edema? hypercapnia? 07/22: PCT was 0, CXR showed some congestion but no definitive PNA, no fevers nor leuk, blood cultures pending, ABG in ER showed hypercapnia, resolved with BIPAP overnight 07/23: Started on vanc + cefepime in the ER 07/22, these were discontinued 07/23 as the patient just completed a long course of abx and does not appear to be infected at this time, hypoxia appears to be hypercapnic and congestion, PCT=0 on admission, monitor off abx, follow cultures, cont home oral lasix at this time, recheck VBG stable, CTA neg for PE, however, concern for PNA with worsening opacities seen, re-initiated on abx + micafungin due to worsening of presentation, vanc + imipenem + azithro + micafungin started 07/23, repeat blood cx pending, sputum cx pending (past sputum cx positive for yeast, left untreated at this time, however, will treat this time due to worsening despite adequate extended abx therapy recently) 07/24: cont current plan with abx + antifungal, follow cx, pulm consult pending, clinically improving (2) Closed fracture of right proximal humerus: Qualifiers: Encounter type: subsequent encounter Fracture alignment: displaced Fracture morphology: other fracture Code(s): S42.201A - Unspecified fracture of upper end of right humerus, initial encounter for closed fracture Status: Acute Assessment and Plan: Post-op ORIF R humerus fracture 07/12. Continue current wound care. Continue therapy. Sutures to be removed 07/27 per ortho. [place] prn pain. (3) Hypothyroidism: Code(s): E03.9 - Hypothyroidism, unspecified Status: Acute Assessment and Plan: Elevated TSH noted on admission. Levothyroxine was increased from 150 to 175 mcg. Normally, TSH should be undetectable with hx of thyroid cancer. Recheck in 4-6 weeks outpatient (4) Anemia: Code(s): D64.9 - Anemia, unspecified Status: Acute Assessment and Plan: Etiology probably related to the extensive bruising noted on exam, resolving from last admission Improving significantly, hgb 11.7 today 07/23, received 7 units pRBCs last admission, monitor (5) Hyponatremia: Code(s): E87.1 - Hypo-osmolality and hyponatremia Status: Chronic Assessment and Plan: Currently on sodium chloride tabs 1g daily Baseline 129-134, at baseline, continue current management (6) Hyperbilirubinemia: Code(s): E80.6 - Other disorders of bilirubin metabolism Status: Acute Assessment and Plan: Mostly indirect. RUQ showing normal liver and no masses of ductal dilitation. Normal portal flow. GB removed. There is a 9mm calcification of unclear significance Hyperbili probably [place], do not suspect insidious etiology, monitor (7) COPD (chronic obstructive pulmonary disease): Qualifiers: COPD type: unspecified COPD Qualified Code(s): J44.9 - Chronic obstructive pulmonary disease, unspecified Code(s): J44.9 - Chronic obstructive pulmonary disease, unspecified Status: Acute Assessment and Plan: Started on solumedrol + nebs for possible COPD exacerbation, repeat CXR stable, hypercapnia resolved with BIPAP, weaned to 2L nc, will obtain pulm consult due to suspected COPD hypercapnia contributing to recurrent desatting episodes Sputum negative on 07/02. Yeast isolated in sputum on 07/03. Sputum cx 07/07 also growing yeast with Rosa albicans and tropicalis. (8) Chronic narcotic dependence: Code(s): F11.20 - Opioid dependence, uncomplicated Status: Acute Ass
[2022-07-24] MEDS: HYDROcodone/acetaminophen (*CRX) 5-325 MG TABLET 1 TAB PO ×2 (09:39→15:50)
[2022-07-24 12:20] LABS: Vancomycin Trough 10.3 ug/mL (10.0-20.0)
[2022-07-24] MEDS: ESCITALOPRAM OXALATE 10 MG TABLET 20 MG PO (20:44)
--- NOTE | 2022-07-24 21:21 | PCRCNOTE ---
RT explained importance of wearing the bipap noc. Patient stated he does get along well with it. RT encouraged pt to try it later, pt agreed.
[2022-07-25] VITALS (23 sets, daily range): BP systolic 133–156; BP diastolic 66–88; PULSE 62–80; RESP 16–20; TEMP 36.6–37.1; O2SAT 90–97
[2022-07-25] MEDS: IPRATROPIUM BR 0.02% INH SOLN 0.5 MG/2.5 ML VIAL INHALATION ×4 (02:20→20:37)
[2022-07-25] MEDS: ALBUTEROL SULFATE NEB 2.5 MG/3 ML INH INHALATION ×4 (02:20→20:38)
[2022-07-25] MEDS: CENTRAL LINE FLUSH 10 ML IV PUSH ×3 (05:19→22:02)
[2022-07-25] MEDS: LEVOTHYROXINE SODIUM 25 MCG TABLET PO (05:19)
[2022-07-25] MEDS: methylPREDNISolone SOD SUCC 125 MG VIAL 60 MG IV PUSH ×3 (05:19→22:01)
[2022-07-25] MEDS: LEVOTHYROXINE SODIUM 150 MCG TABLET PO (05:20)
[2022-07-25 06:35] LABS: Hematocrit 31.3 % (42.0-52.0); Hemoglobin 10.1 g/dL (14.0-18.0); Immature Granulocyte Percent A 1.4 % (0-0.5); Lymphocytes Absolute Auto 0.48 K/mm3 (0.9-3.2); Lymphocytes Percent Auto 6.9 % (18.3-44.2); Mean Corpuscular HGB Conc 32.3 g/dl (32-36); Mean Corpuscular Hemoglobin 30.8 pg (26-34); Mean Corpuscular Volume 95.4 fl (80-100); Monocytes Absolute Auto 0.5 K/mm3 (0.1-0.6); Monocytes Percent Auto 7.1 % (2.6-8.5); Neutrophils Absolute Auto 5.9 K/mm3 (1.3-6.7); Neutrophils Percent Auto 84.6 % (45.5-73.1); Platelet Count Result 376 k/mm3 (150-375); Red Blood Count 3.28 M/mm3 (4.6-6.20); Red Cell Distribution Width 19.7 % (11.5-14.5); White Blood Count 6.9 K/mm3 (4.5-10.0)
[2022-07-25 07:17] LABS: Alanine Aminotransferase 32 U/L (6-50); Albumin Level 3.3 g/dL (3.5-5.1); Alkaline Phosphatase 113 U/L (38-126); Anion Gap 2 mmol/L (8-16); Aspartate Amino Transferase 34 U/L (17-59); Bilirubin,Total 1.8 mg/dL (0.2-1.3); Blood Urea Nitrogen 12 mg/dL (9-20); Calcium 7.7 mg/dL (8.4-10.2); Carbon Dioxide 32 mmol/L (22-30); Chloride 94 mmol/L (98-107); Estimated CRCL calculation 146 ml/min; Estimated Glomerular Filt Rate > 60; Glucose 118 mg/dL (65-110); Potassium 3.5 mmol/L (3.4-5.0); Sodium 128 mmol/L (137-145)
--- NOTE | 2022-07-25 07:41 | PM.IMPN ---
Progress Note: A&P Assessment and Plan (1) Acute respiratory failure with hypoxemia: Code(s): J96.01 - Acute respiratory failure with hypoxia Status: Acute Assessment and Plan: On BIPAP at admission, was weaned to RA and then suddenly had 79% on RA and required BIPAP support, then able to be weaned off within 12 hours, uncertain etiology, could be recurrent silent aspiration? flash pulm edema? hypercapnia? 07/22: PCT was 0, CXR showed some congestion but no definitive PNA, no fevers nor leuk, blood cultures pending, ABG in ER showed hypercapnia, resolved with BIPAP overnight 07/23: Started on vanc + cefepime in the ER 07/22, these were discontinued 07/23 as the patient just completed a long course of abx and does not appear to be infected at this time, hypoxia appears to be hypercapnic and congestion, PCT=0 on admission, monitor off abx, follow cultures, cont home oral lasix at this time, recheck VBG stable, CTA neg for PE, however, concern for PNA with worsening opacities seen, re-initiated on abx + micafungin due to worsening of presentation, vanc + imipenem + azithro + micafungin started 07/23, repeat blood cx pending, sputum cx pending (past sputum cx positive for yeast, left untreated at this time, however, will treat this time due to worsening despite adequate extended abx therapy recently) 07/24: Cont current plan with abx + antifungal, follow cx, pulm consult pending, clinically improving 07/25: Cont current management, improving, suspect underlying candidiasis/fungal PNA due to improvement with micafungin, anticipate de-escalating antibiotics and using diflucan at d/c, awaiting input from pulm and ID pharm (2) Closed fracture of right proximal humerus: Qualifiers: Encounter type: subsequent encounter Fracture alignment: displaced Fracture morphology: other fracture Code(s): S42.201A - Unspecified fracture of upper end of right humerus, initial encounter for closed fracture Status: Acute Assessment and Plan: Post-op ORIF R humerus fracture 07/12. Continue current wound care. Continue therapy. Sutures to be removed 07/27 per ortho. [place] prn pain. (3) Hypothyroidism: Code(s): E03.9 - Hypothyroidism, unspecified Status: Acute Assessment and Plan: Elevated TSH noted on admission. Levothyroxine was increased from 150 to 175 mcg. Normally, TSH should be undetectable with hx of thyroid cancer. Recheck in 4-6 weeks outpatient (4) Anemia: Code(s): D64.9 - Anemia, unspecified Status: Acute Assessment and Plan: Etiology probably related to the extensive bruising noted on exam, resolving from last admission Improving significantly, hgb 11.7 07/23, received 7 units pRBCs last admission, monitor (5) Hyponatremia: Code(s): E87.1 - Hypo-osmolality and hyponatremia Status: Chronic Assessment and Plan: Currently on sodium chloride tabs 1g daily Baseline 129-134, at baseline, continue current management (6) Hyperbilirubinemia: Code(s): E80.6 - Other disorders of bilirubin metabolism Status: Acute Assessment and Plan: Mostly indirect. RUQ showing normal liver and no masses of ductal dilitation. Normal portal flow. GB removed. There is a 9mm calcification of unclear significance Hyperbili probably [place], do not suspect insidious etiology, monitor (7) COPD (chronic obstructive pulmonary disease): Qualifiers: COPD type: unspecified COPD Qualified Code(s): J44.9 - Chronic obstructive pulmonary disease, unspecified Code(s): J44.9 - Chronic obstructive pulmonary disease, unspecified Status: Acute Assessment and Plan: Started on solumedrol + nebs for possible COPD exacerbation, repeat CXR stable, hypercapnia resolved with BIPAP, weaned to 2L nc, will obtain pulm consult due to suspected COPD hypercapnia contributing to recurrent desatting episodes Sputum negative on 07/02. Yeast isolated
[2022-07-25] MEDS: SODIUM CHLORIDE 1 GM TABLET PO (08:14)
[2022-07-25] MEDS: SIMVASTATIN 20 MG TABLET PO (08:14)
[2022-07-25] MEDS: FUROSEMIDE 20 MG TABLET PO (08:15)
[2022-07-25] MEDS: RANOLAZINE 500 MG TAB.ER.12H PO ×2 (08:15→20:20)
[2022-07-25] MEDS: PANTOPRAZOLE 40 MG TABLET PO (08:16)
[2022-07-25] MEDS: MICAFUNGIN SODIUM 100 MG in SODIUM CHLORIDE 0.9% IV 100 ML IVPB (08:16)
[2022-07-25] MEDS: HYDROcodone/acetaminophen (*CRX) 5-325 MG TABLET 1 TAB PO ×2 (12:56→20:28)
[2022-07-25] MEDS: ESCITALOPRAM OXALATE 10 MG TABLET 20 MG PO (20:20)
[2022-07-26] VITALS (18 sets, daily range): BP systolic 132–167; BP diastolic 68–86; PULSE 58–80; RESP 16–20; TEMP 36.4–36.8; O2SAT 94–99
[2022-07-26] MEDS: ALBUTEROL SULFATE NEB 2.5 MG/3 ML INH INHALATION ×4 (02:40→20:17)
[2022-07-26] MEDS: IPRATROPIUM BR 0.02% INH SOLN 0.5 MG/2.5 ML VIAL INHALATION ×6 (02:40→20:17)
[2022-07-26] MEDS: CENTRAL LINE FLUSH 10 ML IV PUSH ×2 (05:16→14:58)
[2022-07-26] MEDS: methylPREDNISolone SOD SUCC 125 MG VIAL 60 MG IV PUSH ×2 (05:16→14:58)
[2022-07-26] MEDS: LEVOTHYROXINE SODIUM 25 MCG TABLET PO (05:45)
[2022-07-26] MEDS: LEVOTHYROXINE SODIUM 150 MCG TABLET PO (05:45)
[2022-07-26 08:07] LABS: Alanine Aminotransferase 30 U/L (6-50); Albumin Level 3.4 g/dL (3.5-5.1); Alkaline Phosphatase 117 U/L (38-126); Anion Gap 5 mmol/L (8-16); Aspartate Amino Transferase 25 U/L (17-59); Bilirubin,Total 1.6 mg/dL (0.2-1.3); Blood Urea Nitrogen 12 mg/dL (9-20); Calcium 7.7 mg/dL (8.4-10.2); Carbon Dioxide 31 mmol/L (22-30); Chloride 93 mmol/L (98-107); Estimated CRCL calculation 120 ml/min; Estimated Glomerular Filt Rate > 60; Glucose 117 mg/dL (65-110); Potassium 3.5 mmol/L (3.4-5.0); Sodium 129 mmol/L (137-145)
[2022-07-26 08:24] LABS: Basophils Percent Auto 0.1 % (0.2-1.2); Hemoglobin 10.7 g/dL (14.0-18.0); Immature Granulocyte Absolute 0.19 K/mm3 (0.00-0.031); Immature Granulocyte Percent A 2.7 % (0-0.5); Lymphocytes Absolute Auto 0.42 K/mm3 (0.9-3.2); Lymphocytes Percent Auto 6.1 % (18.3-44.2); Mean Corpuscular HGB Conc 32.4 g/dl (32-36); Mean Corpuscular Hemoglobin 31.2 pg (26-34); Mean Corpuscular Volume 96.2 fl (80-100); Mean Platelet Volume 8.8 fl (7.4-10.4); Monocytes Absolute Auto 0.4 K/mm3 (0.1-0.6); Monocytes Percent Auto 5.8 % (2.6-8.5); Neutrophils Absolute Auto 5.9 K/mm3 (1.3-6.7); Neutrophils Percent Auto 85.3 % (45.5-73.1); Platelet Count Result 383 k/mm3 (150-375); Red Blood Count 3.43 M/mm3 (4.6-6.20); Red Cell Distribution Width 19.5 % (11.5-14.5); White Blood Count 6.9 K/mm3 (4.5-10.0)
[2022-07-26] MEDS: MICAFUNGIN SODIUM 100 MG in SODIUM CHLORIDE 0.9% IV 100 ML IVPB (08:53)
[2022-07-26] MEDS: SODIUM CHLORIDE 1 GM TABLET PO (08:54)
[2022-07-26] MEDS: FUROSEMIDE 20 MG TABLET PO (08:54)
[2022-07-26] MEDS: PANTOPRAZOLE 40 MG TABLET PO (08:54)
[2022-07-26] MEDS: SIMVASTATIN 20 MG TABLET PO (08:54)
[2022-07-26] MEDS: RANOLAZINE 500 MG TAB.ER.12H PO ×2 (08:54→20:14)
[2022-07-26 08:56] LABS: Vancomycin Trough 16.4 ug/mL (10.0-20.0)
--- NOTE | 2022-07-26 09:32 | PM.IMPN ---
Progress Note: A&P Assessment and Plan (1) Acute respiratory failure with hypoxemia: Code(s): J96.01 - Acute respiratory failure with hypoxia Status: Acute Assessment and Plan: On BIPAP at admission, was weaned to RA and then suddenly had 79% on RA and required BIPAP support, then able to be weaned off within 12 hours, uncertain etiology, could be recurrent silent aspiration? flash pulm edema? hypercapnia? 07/22: PCT was 0, CXR showed some congestion but no definitive PNA, no fevers nor leuk, blood cultures pending, ABG in ER showed hypercapnia, resolved with BIPAP overnight 07/23: Started on vanc + cefepime in the ER 07/22, these were discontinued 07/23 as the patient just completed a long course of abx and does not appear to be infected at this time, hypoxia appears to be hypercapnic and congestion, PCT=0 on admission, monitor off abx, follow cultures, cont home oral lasix at this time, recheck VBG stable Update 07/23: CTA neg for PE, however, concern for PNA with worsening opacities seen, re-initiated on abx + micafungin due to worsening of presentation, vanc + imipenem + azithro + micafungin started 07/23, repeat blood cx pending, sputum cx pending (past sputum cx positive for yeast, left untreated at this time, however, will treat this time due to worsening despite adequate extended abx therapy recently) 07/24: Cont current plan with abx + antifungal, follow cx, pulm consult pending, clinically improving 07/25: Cont current management, improving, suspect underlying candidiasis/fungal PNA due to improvement with micafungin, anticipate de-escalating antibiotics and using diflucan at d/c, awaiting input from pulm and ID pharm 07/26: Cont current management, pulm and ID pharm consults pending, vanc + cefepime 07/22, vanc + imipenem + azithro + micafungin started 07/23, d/c vanc--MRSA swab negative, recheck PCT/CRP, d/c imipenem in favor of oral augmentin, end date 07/28, d/c azithromycin--completed 5 day course, day 4 of micafungin, will transition to oral diflucan 400 mg daily to complete a 14 day course, end date 08/05, repeat CXR today 07/26 stable but severe disease, check CT hi res r/o ILD, check PCT/CRP 07/27 (2) Closed fracture of right proximal humerus: Qualifiers: Encounter type: subsequent encounter Fracture alignment: displaced Fracture morphology: other fracture Code(s): S42.201A - Unspecified fracture of upper end of right humerus, initial encounter for closed fracture Status: Acute Assessment and Plan: Post-op ORIF R humerus fracture 07/12. Continue current wound care. Continue therapy. Sutures to be removed 07/27 per ortho. [place] prn pain. (3) Hypothyroidism: Code(s): E03.9 - Hypothyroidism, unspecified Status: Acute Assessment and Plan: Elevated TSH noted on admission. Levothyroxine was increased from 150 to 175 mcg. Normally, TSH should be undetectable with hx of thyroid cancer. Recheck in 4-6 weeks outpatient (4) Anemia: Code(s): D64.9 - Anemia, unspecified Status: Acute Assessment and Plan: Etiology probably related to the extensive bruising noted on exam, resolving from last admission Improving significantly, hgb 11.7 07/23, received 7 units pRBCs last admission, monitor (5) Hyponatremia: Code(s): E87.1 - Hypo-osmolality and hyponatremia Status: Chronic Assessment and Plan: Currently on sodium chloride tabs 1g daily Baseline 129-134, at baseline, continue current management (6) Hyperbilirubinemia: Code(s): E80.6 - Other disorders of bilirubin metabolism Status: Acute Assessment and Plan: Mostly indirect. RUQ showing normal liver and no masses of ductal dilitation. Normal portal flow. GB removed. There is a 9mm calcification of unclear significance Hyperbili probably [place], do not suspect insidious etiology, monitor (7) COPD (chronic obstructive pulmonary disease): Qualifiers:
--- NOTE | 2022-07-26 09:48 | IDPHARM ---
Subjective Pharmacy was consulted by Kady Patterson regarding infectious diseases for Cecilio Bergeron. Cecilio Bergeron is a 71 year old M with concerns regarding potential rebeka pulmonary infection and pneumonia. Background The patient is currently receiving Imipenem D4, Vancomycin D5, micafungin D4 and had received cefepime for 1 day and azithromycin for 2 days. The patient's PMH includes recent admission and treatment for complicated pulmonary infection and MSSA blood stream infection earlier this month. Additionally, patient had negative MRSA nares on 07/22 and 07/22 and 07/23 blood culture sets are both no growth to date. Noted that 07/23 blood culture sets are 2 sets of aerobic bottle only, no anaerobic. Previous admission also had sputum culture 07/07 positive for 2 rebeka not glabrata species sensitive to fluconazole. Sputum culture ordered thrice this admission by consulting service - never collected. Chest CT showing nodes and worsening pneumonia on 07/23 - the day that fungal coverage was added. Noted pulmonology consulted as well. Patient does not have leukocytosis at this time and a CrCl >100 mL/min. Assessment/Recommendation/Discussion Spoke with consulting provider about this patient and the desire to finish coverage for common pathogens for pneumonia like S. pneumoniae for 7 days and noting MRSA nares as negative. De-escalate carbapenem and vancomycin to Augmentin to finish a 7 day course. Looking to treat for potential fungal infection with fluconazole 400 mg for a total course of 14 days in addition to micafungin. Fungal coverage was not provided during last admission as these are normally normal ronan in the respiratory tract, however, given symptoms will provide. Will sign off at this time, please don't hesitate to reach out or reconsult if I may further assist in any way. Thank you for the interesting consult. Uzair West, PharmD Infectious Disease/Antimicrobial Stewardship Pharmacist 07/26/22; [id number]
[2022-07-26] MEDS: FLUCONAZOLE 100 MG TABLET 400 MG PO (10:22)
[2022-07-26] MEDS: AMOXICILLIN/CLAVULANATE K 875-125 MG TAB 1 TABLET PO ×2 (11:51→20:14)
[2022-07-26] MEDS: HYDROcodone/acetaminophen (*CRX) 5-325 MG TABLET 1 TAB PO (11:55)
--- NOTE | 2022-07-26 13:55 | PM.PNPUL ---
Progress Note: A&P Assessment and Plan (1) Pneumonia: Code(s): J18.9 - Pneumonia, unspecified organism Status: Acute Assessment and Plan: 07/26 patient states that he is feeling normal now he has no cough, phlegm or hemoptysis. White blood cell count is 6.9, creatinine is 0.5, room air saturation 95%. Chest x-ray per my review demonstrates improved right lower lobe, right upper lobe and left perihilar infiltrates over the last 3 days. Patient was previously admitted from and received Zosyn, Unasyn, vancomycin and cefepime. Patient had yeast in his sputum on 07/03 and rosa albican and tropicalis on sputum from 07/07. Is difficult to determine if his nodular infiltrates are related to the Rosa that was isolated in his sputum. This would require tissue biopsy to confirm candidal pneumonia. It appears the patient has clinically responded over the last 4 days and will agree to complete a 14 day course with Diflucan for the unlikely case that this is candidal pneumonia. Plan: Agree with continuation of oral Augmentin to end on 07/28, completed 5 day course of azithromycin, today is day 4 of micafungin and will transition to oral Diflucan 400 a day to complete a 14 day course. Patient should have a repeat CT scan of the chest in 8 weeks to reassess these nodular infiltrates. (2) COPD (chronic obstructive pulmonary disease): Qualifiers: COPD type: unspecified COPD Qualified Code(s): J44.9 - Chronic obstructive pulmonary disease, unspecified Code(s): J44.9 - Chronic obstructive pulmonary disease, unspecified Status: Acute Assessment and Plan: patient has history of 50 year pack tobacco use, mild apical predominant centrilobular and paraseptal emphysema on his CT scan from 03/20/2019. I have no PFTs. patient improved with treatment for COPD exacerbation and pneumonia. Venous blood gas on 07/23 on 2 L demonstrates a pH of 7.48/42/31. He has been off BiPAP since 07/23/2022. 07/26 patient states that he is feeling normal now he has no cough, phlegm or hemoptysis. White blood cell count is 6.9, creatinine is 0.5, room air saturation 95%. He has no wheezes on exam and I will discontinue Solu-Medrol today (received 5 days). Continue albuterol and ipratropium nebulizers Q 6 hours. When patient is ready for discharge would discharge on: trelegy 100-62.5-25 at 1 puff q.day rescue albuterol 2 puffs q.4 hours p.r.n. shortness of breath or wheezing Antibiotics as above Oxygen at rest and with ambulation per home O2 assessment. Overnight oximetry on room air the night prior to discharge to assess his oxygenation at night The patient should have outpatient PFTs once he is back at his baseline to assess the severity of his COPD. Discussed with Dr. Patterson, will sign off, call with questions. Subjective Date/time seen: 07/26/22 13:55 Interval history: 07/23/22 NEW?: Cecilio Bergeron is a 71-year-old man with multiple falls.? He had a fall 06/[address] [facility], R humerus fracture, was sent home from ER. He returned July 01 with another fall and rhabdomyolysis, pneumonia in the upper lobes, was admitted July 01 through Jul 21, went to rehab. He was there only for a few days when he was transferred back to hospital with increased shortness of breath, cough, sputum production. PMH: COPD, hypertension, CAD, lung cancer 2015 with partial pneumonectomy RUL,? thyroid cancer admitted for weakness and fall. 07/26 patient states that he is feeling normal now he has no cough, phlegm or hemoptysis. White blood cell count is 6.9, creatinine is 0.5, room air saturation 95%. DATA * 07/23/2022 CTA :??No pulmonary embolus identified. 2. Worsening nodular and airspace opacities of the lungs, consistent with pneumonia. Review of Systems Constitutional: Constitutional: Reports no additional constitutional complaints Eyes: Eyes: Reports no additional eye complaints ENT: Reports s
--- NOTE | 2022-07-26 16:01 | PCOTNOTE ---
Patient refused treatment this session due to have had therapy treatment today. Feeling exhausted and requesting sevices come back in the A.M. Patient was educated on the importance of getting up several times per day. He verbalized, I really do understand and I will perform tomorrow, just don't have it today.
[2022-07-26] MEDS: ALPRAZolam (*CRX) 0.5 MG TABLET 1 MG PO (20:13)
[2022-07-26] MEDS: ESCITALOPRAM OXALATE 10 MG TABLET 20 MG PO (20:14)
--- NOTE | 2022-07-26 22:02 | PC.NURSE ---
Patient transferred to 3 Med/Surg in stable condition. Report given to receiving nurse. Personal belongings sent with patient.
[2022-07-27] VITALS (10 sets, daily range): BP systolic 138–173; BP diastolic 77–92; PULSE 53–65; RESP 14–18; TEMP 35.8–36.4; O2SAT 93–97
[2022-07-27] MEDS: CENTRAL LINE FLUSH 10 ML IV PUSH ×3 (01:37→20:43)
[2022-07-27] MEDS: methylPREDNISolone SOD SUCC 125 MG VIAL 60 MG IV PUSH ×2 (01:37→06:02)
[2022-07-27] MEDS: IPRATROPIUM BR 0.02% INH SOLN 0.5 MG/2.5 ML VIAL INHALATION ×3 (02:02→14:11)
[2022-07-27] MEDS: ALBUTEROL SULFATE NEB 2.5 MG/3 ML INH INHALATION ×3 (02:02→14:11)
[2022-07-27] MEDS: LEVOTHYROXINE SODIUM 25 MCG TABLET PO (06:02)
[2022-07-27] MEDS: LEVOTHYROXINE SODIUM 150 MCG TABLET PO (06:02)
[2022-07-27 06:17] LABS: Basophils Percent Auto 0.2 % (0.2-1.2); Hematocrit 34.4 % (42.0-52.0); Hemoglobin 11.2 g/dL (14.0-18.0); Immature Granulocyte Absolute 0.23 K/mm3 (0.00-0.031); Immature Granulocyte Percent A 3.9 % (0-0.5); Lymphocytes Percent Auto 6.7 % (18.3-44.2); Mean Corpuscular HGB Conc 32.6 g/dl (32-36); Mean Corpuscular Volume 95.3 fl (80-100); Mean Platelet Volume 8.8 fl (7.4-10.4); Monocytes Absolute Auto 0.4 K/mm3 (0.1-0.6); Neutrophils Percent Auto 83.2 % (45.5-73.1); Platelet Count Result 374 k/mm3 (150-375); Red Blood Count 3.61 M/mm3 (4.6-6.20); Red Cell Distribution Width 19.3 % (11.5-14.5)
[2022-07-27 06:37] LABS: Alanine Aminotransferase 28 U/L (6-50); Albumin Level 3.5 g/dL (3.5-5.1); Alkaline Phosphatase 114 U/L (38-126); Anion Gap 4 mmol/L (8-16); Aspartate Amino Transferase 25 U/L (17-59); Bilirubin,Total 1.6 mg/dL (0.2-1.3); Blood Urea Nitrogen 15 mg/dL (9-20); Calcium 7.9 mg/dL (8.4-10.2); Carbon Dioxide 34 mmol/L (22-30); Chloride 93 mmol/L (98-107); Estimated CRCL calculation 120 ml/min; Estimated Glomerular Filt Rate > 60; Glucose 118 mg/dL (65-110); Potassium 3.7 mmol/L (3.4-5.0); Sodium 131 mmol/L (137-145)
[2022-07-27 06:39] LABS: CRP 0.8 mg/dL (<1.0)
[2022-07-27 08:16] LABS: Procalcitonin < 0.0 ng/mL
[2022-07-27] MEDS: FUROSEMIDE 20 MG TABLET PO (09:10)
[2022-07-27] MEDS: HYDROcodone/acetaminophen (*CRX) 5-325 MG TABLET 1 TAB PO (09:10)
[2022-07-27] MEDS: FLUCONAZOLE 100 MG TABLET 400 MG PO (09:10)
[2022-07-27] MEDS: RANOLAZINE 500 MG TAB.ER.12H PO ×2 (09:11→20:42)
[2022-07-27] MEDS: AMOXICILLIN/CLAVULANATE K 875-125 MG TAB 1 TABLET PO ×2 (09:11→20:42)
[2022-07-27] MEDS: PANTOPRAZOLE 40 MG TABLET PO (09:11)
[2022-07-27] MEDS: SODIUM CHLORIDE 1 GM TABLET PO (09:11)
[2022-07-27] MEDS: SIMVASTATIN 20 MG TABLET PO (09:11)
--- NOTE | 2022-07-27 10:05 | PM.IMPN ---
Progress Note: A&P Assessment and Plan (1) Acute respiratory failure with hypoxemia: Code(s): J96.01 - Acute respiratory failure with hypoxia Status: Acute Assessment and Plan: On BIPAP at admission, was weaned to RA and then suddenly had 79% on RA and required BIPAP support, then able to be weaned off within 12 hours, uncertain etiology, could be recurrent silent aspiration? flash pulm edema? hypercapnia? 07/22: PCT was 0, CXR showed some congestion but no definitive PNA, no fevers nor leuk, blood cultures pending, ABG in ER showed hypercapnia, resolved with BIPAP overnight 07/23: Started on vanc + cefepime in the ER 07/22, these were discontinued 07/23 as the patient just completed a long course of abx and does not appear to be infected at this time, hypoxia appears to be hypercapnic and congestion, PCT=0 on admission, monitor off abx, follow cultures, cont home oral lasix at this time, recheck VBG stable Update 07/23: CTA neg for PE, however, concern for PNA with worsening opacities seen, re-initiated on abx + micafungin due to worsening of presentation, vanc + imipenem + azithro + micafungin started 07/23, repeat blood cx pending, sputum cx pending (past sputum cx positive for yeast, left untreated at this time, however, will treat this time due to worsening despite adequate extended abx therapy recently) 07/24: Cont current plan with abx + antifungal, follow cx, pulm consult pending, clinically improving 07/25: Cont current management, improving, suspect underlying candidiasis/fungal PNA due to improvement with micafungin, anticipate de-escalating antibiotics and using diflucan at d/c, awaiting input from pulm and ID pharm 07/26: Cont current management, pulm and ID pharm consults pending, vanc + cefepime 07/22, vanc + imipenem + azithro + micafungin started 07/23, d/c vanc--MRSA swab negative, recheck PCT/CRP, d/c imipenem in favor of oral augmentin, end date 07/28, d/c azithromycin--completed 5 day course, day 4 of micafungin, will transition to oral diflucan 400 mg daily to complete a 14 day course, end date 08/05, repeat CXR today 07/26 stable but severe disease, check CT hi res r/o ILD, check PCT/CRP 07/27 07/27: stable for d/c today, cont augmentin until 07/28, diflucan until 08/05, PCT + CRP much improved (2) Closed fracture of right proximal humerus: Qualifiers: Encounter type: subsequent encounter Fracture morphology: other fracture Fracture alignment: displaced Code(s): S42.201A - Unspecified fracture of upper end of right humerus, initial encounter for closed fracture Status: Acute Assessment and Plan: Post-op ORIF R humerus fracture 07/12. Continue current wound care. Continue therapy. Sutures to be removed 07/27 per ortho. [place] prn pain. (3) Hypothyroidism: Code(s): E03.9 - Hypothyroidism, unspecified Status: Acute Assessment and Plan: Elevated TSH noted on admission. Levothyroxine was increased from 150 to 175 mcg. Normally, TSH should be undetectable with hx of thyroid cancer. Recheck in 4-6 weeks outpatient (4) Anemia: Code(s): D64.9 - Anemia, unspecified Status: Acute Assessment and Plan: Etiology probably related to the extensive bruising noted on exam, resolving from last admission Improving significantly, hgb 11.7 07/23, received 7 units pRBCs last admission, monitor (5) Hyponatremia: Code(s): E87.1 - Hypo-osmolality and hyponatremia Status: Chronic Assessment and Plan: Currently on sodium chloride tabs 1g daily Baseline 129-134, at baseline, continue current management (6) Hyperbilirubinemia: Code(s): E80.6 - Other disorders of bilirubin metabolism Status: Acute Assessment and Plan: Mostly indirect. RUQ showing normal liver and no masses of ductal dilitation. Normal portal flow. GB removed. There is a 9mm calcification of unclear significance Hyperbili probably [place], do not suspect insidious
--- NOTE | 2022-07-27 10:17 | PM.DS ---
DS: Admitting Diagnosis Discharge Date 07/27/22 Admitting Diagnosis sob DS: Discharge Diagnosis Discharge Diagnosis (1) Acute respiratory failure with hypoxemia: Code(s): J96.01 - Acute respiratory failure with hypoxia Status: Acute Assessment and Plan: On BIPAP at admission, was weaned to RA and then suddenly had 79% on RA and required BIPAP support, then able to be weaned off within 12 hours, uncertain etiology, could be recurrent silent aspiration? flash pulm edema? hypercapnia? 07/22: PCT was 0, CXR showed some congestion but no definitive PNA, no fevers nor leuk, blood cultures pending, ABG in ER showed hypercapnia, resolved with BIPAP overnight 07/23: Started on vanc + cefepime in the ER 07/22, these were discontinued 07/23 as the patient just completed a long course of abx and does not appear to be infected at this time, hypoxia appears to be hypercapnic and congestion, PCT=0 on admission, monitor off abx, follow cultures, cont home oral lasix at this time, recheck VBG stable Update 07/23: CTA neg for PE, however, concern for PNA with worsening opacities seen, re-initiated on abx + micafungin due to worsening of presentation, vanc + imipenem + azithro + micafungin started 07/23, repeat blood cx pending, sputum cx pending (past sputum cx positive for yeast, left untreated at this time, however, will treat this time due to worsening despite adequate extended abx therapy recently) 07/24: Cont current plan with abx + antifungal, follow cx, pulm consult pending, clinically improving 07/25: Cont current management, improving, suspect underlying candidiasis/fungal PNA due to improvement with micafungin, anticipate de-escalating antibiotics and using diflucan at d/c, awaiting input from pulm and ID pharm 07/26: Cont current management, pulm and ID pharm consults pending, vanc + cefepime 07/22, vanc + imipenem + azithro + micafungin started 07/23, d/c vanc--MRSA swab negative, recheck PCT/CRP, d/c imipenem in favor of oral augmentin, end date 07/28, d/c azithromycin--completed 5 day course, day 4 of micafungin, will transition to oral diflucan 400 mg daily to complete a 14 day course, end date 08/05, repeat CXR today 07/26 stable but severe disease, check CT hi res r/o ILD, check PCT/CRP 07/27 07/27: stable for d/c today, cont augmentin until 07/28, diflucan until 08/05, PCT + CRP much improved (2) Closed fracture of right proximal humerus: Qualifiers: Encounter type: subsequent encounter Fracture alignment: displaced Fracture morphology: other fracture Code(s): S42.201A - Unspecified fracture of upper end of right humerus, initial encounter for closed fracture Status: Acute Assessment and Plan: Post-op ORIF R humerus fracture 07/12. Continue current wound care. Continue therapy. Sutures to be removed 07/27 per ortho. [place] prn pain. (3) Hypothyroidism: Code(s): E03.9 - Hypothyroidism, unspecified Status: Acute Assessment and Plan: Elevated TSH noted on admission. Levothyroxine was increased from 150 to 175 mcg. Normally, TSH should be undetectable with hx of thyroid cancer. Recheck in 4-6 weeks outpatient (4) Anemia: Code(s): D64.9 - Anemia, unspecified Status: Acute Assessment and Plan: Etiology probably related to the extensive bruising noted on exam, resolving from last admission Improving significantly, hgb 11.7 07/23, received 7 units pRBCs last admission, monitor (5) Hyponatremia: Code(s): E87.1 - Hypo-osmolality and hyponatremia Status: Chronic Assessment and Plan: Currently on sodium chloride tabs 1g daily Baseline 129-134, at baseline, continue current management (6) Hyperbilirubinemia: Code(s): E80.6 - Other disorders of bilirubin metabolism Status: Acute Assessment and Plan: Mostly indirect. RUQ showing normal liver and no masses of ductal dilitation. Normal portal flow. GB removed. There is a 9mm calcifica
--- NOTE | 2022-07-27 11:30 | PC.NURSE ---
patient returning to room from xray. He went down to xray about 10 minutes ago.
--- NOTE | 2022-07-27 13:44 | PM.CNOR ---
Assessment and Plan Assessment and plan (1) Closed fracture of right proximal humerus: Qualifiers: Encounter type: subsequent encounter Fracture alignment: displaced Fracture morphology: other fracture Code(s): S42.201A - Unspecified fracture of upper end of right humerus, initial encounter for closed fracture Status: Acute Plan 71-year-old male 2 weeks status post ORIF right humerus fracture. Sutures will be removed today. X-rays show the humerus in anatomic alignment with no loss of fixation of the pins. He will remain nonweightbearing of the right upper extremity for at least another 4 weeks. Plan follow-up in our office in 4 weeks, at or around August 24, 2022. He can start to do pendulum type exercises with the right upper extremity to avoid stiffness at the shoulder and elbow. Otherwise, he should remain in the sling. Continue aspirin for DVT prophylaxis. History of Present Illness HPI Consult date: 07/27/22 Consult reason: other (Two weeks status post ORIF right humerus) Chief complaint: hypoxic hypercarbic respiratory failure,jaundice,w Narrative: 71-year-old male now 2 weeks status post ORIF right humerus. Still having pain in the shoulder but has maintained his non weight-bearing status of the right upper extremity very well. He has been using the sling and started to develop some stiffness into the right elbow. Bruising of the right upper extremity remains but does appear to be improving. No drainage from the incision site. He continues to progress and work well with PT/OT. Review of Systems Constitutional: Constitutional: Reports as per HPI and Reports no additional constitutional complaints Musculoskeletal: Musculoskeletal: Reports no additional musculoskeletal complaints and Reports as per HPI [facility] Past Medical History Medical History Basal cell carcinoma Closed fracture of right proximal humerus ORIF July 12, 2022 with [place] staple device COPD (chronic obstructive pulmonary disease) Coronary artery disease Dr. Mane Frequent falls GERD (gastroesophageal reflux disease) High cholesterol History of thyroid cancer Treated with chemotherapy and radiation Hypertension Hypothyroidism Lung cancer Status post right upper lobe pneumonectomy Peripheral neuropathy Thrombocytopenia Surgical History Surgical History H/O arthroscopic knee surgery H/O right inguinal hernia repair (08/06/20) Repair of right inguinal hernia with 6 cm Parietex hernia mesh system History of bilateral carpal tunnel release History of colonoscopy History of coronary angioplasty History of esophagogastroduodenoscopy (EGD) 2006 History of hemorrhoidectomy History of left inguinal hernia repair (11/2018) With 8 cm of Pari[address]ex mesh dr. Stapleton History of medial meniscus repair of right knee (~2005) History of pneumonectomy (~2014) Right upper lobe due to lung cancer History of ventral hernia repair (~06/2006) Gastric volvulus with ventral hernia repair Hx of CABG (~09/2002) 4 vessel CABG Hx of cholecystectomy S/P ORIF (open reduction internal fixation) fracture Right shoulder 07/12/2022 Status post cataract extraction of both eyes with insertion of intraocular lens (~2015) Family History Family History Mother MVA (motor vehicle accident) Father Gunshot wound Sibling Heart disease Other Family history of cardiovascular disease Social History Social History Social History: He is currently at the [facility] facility. He lives alone. He has smoked as much as a pack of cigarettes per day since he was 20 years old. He is now down to 4-5 cigarettes a day. 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
[2022-07-27] MEDS: NEOMYCIN/POLYMYXIN/BACITRACIN OINTMENT PACKET 1 PACKET (17:07)
[2022-07-27 17:15] LABS: EDCOVIDSCREEN Negative (Negative)
[2022-07-27] MEDS: ALPRAZolam (*CRX) 0.5 MG TABLET 1 MG PO (20:42)
[2022-07-27] MEDS: ESCITALOPRAM OXALATE 10 MG TABLET 20 MG PO (20:42)
== END 2022-07-27 20:58 | DRG 193 ==
LOC: ANHED 14:44 → ANHIMU 17:23 → ANH3MEDSUR 07-26 22:12
PROVIDERS: Nurse Practitioner; Admitting Provider Chiropractor; Emergency Provider Emergency Medicine; PCP Nurse Practitioner Adult Health; Visit Provider Student in an Organized Health Care Education/Training Program
DX: J18.9 Pneumonia, unspecified organism (principal); J96.01 Acute respiratory failure with hypoxia; E87.1 Hypo-osmolality and hyponatremia; F11.20 Opioid dependence, uncomplicated; S42.201D Unspecified fracture of upper end of right humerus, subsequent encounter for fracture with routine healing; E03.9 Hypothyroidism, unspecified; D64.9 Anemia, unspecified; E80.6 Other disorders of bilirubin metabolism; I10 Essential (primary) hypertension; D69.6 Thrombocytopenia, unspecified; R29.6 Repeated falls; I25.10 Atherosclerotic heart disease of native coronary artery without angina pectoris; J43.2 Centrilobular emphysema; Z20.822 Contact with and (suspected) exposure to COVID-19; Z85.118 Personal history of other malignant neoplasm of bronchus and lung; Z87.891 Personal history of nicotine dependence; Z79.899 Other long term (current) drug therapy
CPT/HCPCS: 36415; 36600; 71045; 71250; 71275; 73060; 74177; 80053; 80074; 80202; 81003; 82375; 82565; 82803; 82805; 83050; 83605; 83615; 83735; 83880; 84145; 84443; 84484; 85025; 85380; 85610; 85730; 86140; 87040; 87081; 87426; 87637; 92526; 92610; 93005; 94002; 94003; 94640; 96361; 97110; 97162; 97165; 97530; 97535; 99285; A9270; C9113; C9803; J0456; J0692; J0743; J1940; J2248; J2930; J3370; J7040; Q9967

== ENCOUNTER 2022-12-02 01:50 | Day surgery (SDC) | payer MEDICARE, OTHER, SELFPAY ==
[2022-11-29 09:25] VITALS: BMI 22.4
--- NOTE | 2022-12-01 21:01 | PM.HPGS ---
History of Present Illness History of Present Illness Consent: Risks, benefits, and alternatives have been discussed and questions answered. Patient agrees to proceed with procedure. Chief complaint: dysphagia Narrative: Cecilio Bergeron is a 72 year old male has a history of thyroid cancer status post radiation and chemotherapy, right upper lobe lung cancer status post pneumonectomy, GERD, hyperlipidemia, hypertension, peripheral neuropathy, coronary artery disease status post 4 vessel CABG (2002), COPD, basal cell carcinoma, and ventral hernia repair and gastric volvulus repair, cholecystectomy, and multiple orthopedic surgeries.? He reports dysphagia near suprasternal notch to solids and pills the last few months.? He has had previous EGDs with dilations in the past and he states they have always help the similar dysphagia symptoms.? He states he has waited too long this time to get seen for it.? He states his mouth is constantly dry.?? Review of Systems Review of Systems: All systems reviewed & are unremarkable except as noted in HPI and below PMFSH Past Medical History Medical History Basal cell carcinoma Closed fracture of right proximal humerus ORIF July 12, 2022 with Patiño staple device COPD (chronic obstructive pulmonary disease) Coronary artery disease Dr. Mane Dysphonia Frequent falls GERD (gastroesophageal reflux disease) High cholesterol History of thyroid cancer Treated with chemotherapy and radiation Hx of adenomatous colonic polyps Hypertension Hypothyroidism Lung cancer Status post right upper lobe pneumonectomy Peripheral neuropathy Thrombocytopenia Surgical History Surgical History H/O arthroscopic knee surgery H/O right inguinal hernia repair (08/06/20) Repair of right inguinal hernia with 6 cm Parietex hernia mesh system History of bilateral carpal tunnel release History of colonoscopy History of coronary angioplasty History of esophagogastroduodenoscopy (EGD) 2006 History of hemorrhoidectomy History of left inguinal hernia repair (11/2018) With 8 cm of Parietex mesh dr. Stapleton History of medial meniscus repair of right knee (~2005) History of pneumonectomy (~2014) Right upper lobe due to lung cancer History of ventral hernia repair (~06/2006) Gastric volvulus with ventral hernia repair Hx of CABG (~09/2002) 4 vessel CABG Hx of cholecystectomy S/P ORIF (open reduction internal fixation) fracture Right shoulder 07/12/2022 Status post cataract extraction of both eyes with insertion of intraocular lens (~2016) Family History Family History Mother MVA (motor vehicle accident) Father Gunshot wound Sibling Heart disease Other Family history of cardiovascular disease Social History Social History Social History: He is currently at the [facility] facility. He lives alone. He has smoked as much as a pack of cigarettes per day since he was 20 years old. He is now down to 4-5 cigarettes a day. 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 code status full code Years smoked: 50 Smoking status: Current every day smoker Tobacco type: cigarettes Second hand tobacco smoke exposure: Yes Alcohol intake: former Drinks per week: 7 Alcohol use details: STATES LAST DRINK AUGUST 31, 1984 Substance use: never Substance use type: does not use Lack of Transportation: No Lack of Food: Never True Current Housing: I Have Housing Concerned About Future Housing: No Difficulty Paying Gas/Electric Bills: No Difficulty Paying for Meds: No Currently Unemployed: No Education: Don't Know Difficulty w/ Childcare or Family Care: No Living arrangements: alone Occup
--- NOTE | 2022-12-02 13:11 | WPDANESEPPF ---
Anes - Initial Pre Proc Eval Procedure: Operation Date: 12/02/22 14:30 Proposed Procedures p Esophagogastroduodenoscopy - Steve Julian MD Date/Time: 12/02/22 13:11 Surgeon: Steve Julian MD Pre Op Diagnosis: dysphagia Patient Data Age: 72 Gender: M Height: 1.78 m Weight: 70.9 kg Allergies Allergy/AdvReac Type Severity Reaction Status Date / Time atorvastatin AdvReac Mild MADE ME Verified 12/02/22 13:14 SICK methocarbamol AdvReac Mild MADE ME Verified 12/02/22 13:14 SICK terbinafine AdvReac Mild MADE ME Verified 12/02/22 13:14 SICK Home Medications Medication Instructions Recorded Confirmed Type aspirin 81 mg chewable tablet 2 tablet PO DAILY 07/21/20 12/02/22 History baclofen 10 mg tablet 10 mg PO TID PRN Pain 07/21/20 12/02/22 History escitalopram oxalate 20 mg tablet 20 mg PO HS 07/21/20 11/29/22 History fluticasone fur. 100 mcg-umeclid 1 inh inhalation DAILY 07/21/20 11/29/22 History 62.5 mcg-vilant 25 mcg inhalat.powder (Trelegy Ellipta) nitroglycerin 400 mcg/spray 1 spray translingual Q5M PRN Chest 07/21/20 11/29/22 History translingual Pain simvastatin 20 mg tablet 20 mg PO DAILY 07/21/20 11/29/22 History esomeprazole magnesium 40 mg 40 mg PO DAILY 03/22/21 11/29/22 History capsule,delayed release ranolazine 500 mg tablet,extended 500 mg PO Q12H 03/22/21 12/02/22 History release,12 hr albuterol sulfate 90 mcg/actuation 1 inh inhalation Q4H PRN Shortness 03/25/21 11/29/22 Rx aerosol inhaler (ProAir HFA) Of Breath Or Wheezing #0 grams hydrocodone 5 mg-acetaminophen 325 1 tablet PO Q6H PRN pain #10 tabs 03/25/21 11/29/22 Rx mg tablet alprazolam 1 mg tablet 1 mg PO DAILY 11/29/22 11/29/22 History levothyroxine 150 mcg tablet 175 mcg PO DAILY@0630 11/29/22 11/29/22 History (Synthroid) Patient hx anesthesia problems: none Family hx anesthesia problems: none Results Review: All pre-operative results and documents have been reviewed as part of the pre-operative evaluation. REPLACED BY [facility] Past Medical History Medical History (Updated 11/22/22 @ 15:48 by Cristin Armstrong APRN) Basal cell carcinoma Closed fracture of right proximal humerus ORIF July 12, 2022 with Patiño staple device COPD (chronic obstructive pulmonary disease) Coronary artery disease Dr. Mane Dysphonia Frequent falls GERD (gastroesophageal reflux disease) High cholesterol History of thyroid cancer Treated with chemotherapy and radiation Hx of adenomatous colonic polyps Hypertension Hypothyroidism Lung cancer Status post right upper lobe pneumonectomy Peripheral neuropathy Thrombocytopenia Surgical History Surgical History H/O arthroscopic knee surgery H/O right inguinal hernia repair (08/06/20) Repair of right inguinal hernia with 6 cm Parietex hernia mesh system History of bilateral carpal tunnel release History of colonoscopy History of coronary angioplasty History of esophagogastroduodenoscopy (EGD) 2006 History of hemorrhoidectomy History of left inguinal hernia repair (11/2018) With 8 cm of [address]ari[address]ex mesh dr. Stapleton History of medial meniscus repair of right knee (~2005) History of pneumonectomy (~2014) Right upper lobe due to lung cancer History of ventral hernia repair (~06/2006) Gastric volvulus with ventral hernia repair Hx of CABG (~09/2002) 4 vessel CABG Hx of cholecystectomy S/P ORIF (open reduction internal fixation) fracture Right shoulder 07/12/2022 Status post cataract extraction of both eyes with insertion of intraocular lens (~2015) Family History Family History Mother MVA (motor vehicle accident) Father Gunshot wound Sibling Heart disease Other Family history of cardiovascular disease Social History Social History Social History: He is currently at the [facility]
[2022-12-02 13:16] VITALS: BP 133/69; PULSE 63; RESP 18; TEMP 36.9; O2SAT 100
[2022-12-02] MEDS: LACTATED RINGERS 1,000 ML 150 ML IV CONT (13:27)
[2022-12-02 13:58] VITALS: BP 106/65; PULSE 57; RESP 14; O2SAT 100
[2022-12-02 14:08] VITALS: BP 105/61; PULSE 57; RESP 16; O2SAT 99
[2022-12-02 14:18] VITALS: BP 131/82; PULSE 57; RESP 16; O2SAT 98
== END 2022-12-02 14:32 | disposition home or self-care (01) ==
PROVIDERS: PCP Family Medicine; Visit Provider Internal Medicine Gastroenterology
PROC: 0DJ08ZZ Inspection of Upper Intestinal Tract, Via Natural or Artificial Opening Endoscopic (ICD-10-PCS; CPT 43235; principal; 2022-12-02 14:30)
DX: R13.10 Dysphagia, unspecified (principal); K21.00 Gastro-esophageal reflux disease with esophagitis, without bleeding; J44.9 Chronic obstructive pulmonary disease, unspecified; I25.10 Atherosclerotic heart disease of native coronary artery without angina pectoris; E78.00 Pure hypercholesterolemia, unspecified; I10 Essential (primary) hypertension; G62.9 Polyneuropathy, unspecified; E89.0 Postprocedural hypothyroidism; Z92.21 Personal history of antineoplastic chemotherapy; Z92.3 Personal history of irradiation; Z85.118 Personal history of other malignant neoplasm of bronchus and lung; Z90.2 Acquired absence of lung [part of]; Z95.1 Presence of aortocoronary bypass graft; F17.210 Nicotine dependence, cigarettes, uncomplicated; Z79.82 Long term (current) use of aspirin; Z79.51 Long term (current) use of inhaled steroids; Z79.891 Long term (current) use of opiate analgesic
CPT/HCPCS: 43450; 43239; 88305; J2704; J7120

== ENCOUNTER 2023-01-18 20:00 | Emergency (ER) | payer MEDICARE, OTHER, SELFPAY ==
[2023-01-18] VITALS (13 sets, daily range): BP systolic 98–137; BP diastolic 66–84; PULSE 67–85; RESP 14–21; TEMP 36.6; O2SAT 86–100
--- NOTE | ~2023-01-18 | CT_ITS ---
EXAMINATION: CT abdomen pelvis w con DATE: 01/18/2023 23:47 INDICATION: Rectal pain, gastrointestinal bleeding TECHNIQUE: Computed tomography (CT) of the abdomen and pelvis was performed with 100 CC Omnipaque 350 intravenous contrast. Automated exposure control and iterative reconstruction technique were employe d. Exam dose: 328.47 mGy-cm total exam DLP. COMPARISON: None. FINDINGS: There is discoid atelectasis in the posterior dependent left lung base, left lower lobe. Em physematous changes are noted. Status post sternotomy. Coronary artery calcification. Normal heart size. No pericardial or pleural effusion. Status post cholecystectomy. This likely accounts for mild prominence of the bile ducts. No hepatic, splenic, pancreatic, and adrenal or renal space-occupying mass lesion is detected with th e exception of a very small probable cysts cortical cyst of the lateral mid right kidney. 2.5 mm right hilar calcification may be arterial or a small nonobstructing right renal calculus. No u rinary tract calculus or hydroureteronephrosis is noted otherwise. There is prominent prostate enlargement and some prostate calcification. Approximately 3.5 cm infrarenal abdominal aortic aneurysm. There is extensive calcification of the ab dominal aorta and prominent calcification and ectasia of the iliac arteries. There is extensive calci fication of the femoral arteries. There is prominent calcification at the origins of the renal arteries. Calcification noted as well at the celiac and superior mesenteric arteries. No intraperitoneal or retroperitoneal or pelvic mass lesion or adenopathy or ascites is detected. Some calcification is noted at the tip of the appendix but no significant thickening of the appendice al wall or any abnormal dilatation of the appendix or periappendiceal fat stranding is noted. There a re numerous gas containing small bowel and colon segments but no small or large bowel dilatation or o bstruction or bowel wall thickening or pneumatosis or any portal venous gas or pneumoperitoneum is no nixon. Prominent spurring of the lower thoracic spine. Multilevel severe degenerative disc disease of the lumbar spine and transitional lumbosacral vertebra . There is osteopenia. IMPRESSION: Status post sternotomy Status post cholecystectomy No evidence of appendicitis or bowel obstruction Approximately 3.5 cm infrarenal abdominal aortic aneurysm. Reviewed, dictated and finalized at [facility]. Reviewed, dictated and finalized at location [facility].
--- NOTE | 2023-01-18 22:31 | ED.GENADULT ---
HPI - General Adult General Chief complaint: GI Bleed <Gómez Gutierrez PA-C - Last Filed: 01/19/23 01:36> Stated complaint: rectal bleeding <PAUL Valente Last Filed: 01/19/23 01:36> Time Seen by Provider: 01/18/23 22:12 <Gómez Gutierrez PA-C - Last Filed: 01/19/23 01:36> Source: patient <PAUL Valente Last Filed: 01/19/23 01:36> Mode of arrival: ambulatory <PAUL Valente Last Filed: 01/19/23 01:36> Limitations: no limitations <Gómez Gutierrez PA-C - Last Filed: 01/19/23 01:36> History of Present Illness HPI narrative: This is a 72-year-old male who presents to the ED with chief complaint of rectal pain and bleeding for the past week. Reports it feels like there is some swelling in the area of the rectum. Reports history of hemorrhoid surgery 1971 but today does not feel like a hemorrhoid. Reports she is having slight pain with bowel movements but just having generalized pain at the rectum at baseline. Reports seeing bright red blood in the stools and when he wipes. Denies melena. Denies vomiting or hematemesis denies abdominal pain, fevers, chills, chest pain, shortness of breath, urinary problems. <PAUL Valente Last Filed: 01/19/23 01:36> Related Data Home medications: Home Medications Medication Instructions Recorded Confirmed aspirin 81 mg chewable tablet 2 tablet PO DAILY 07/21/20 12/02/22 baclofen 10 mg tablet 10 mg PO TID PRN Pain 07/21/20 12/02/22 escitalopram oxalate 20 mg tablet 20 mg PO HS 07/21/20 11/29/22 fluticasone fur. 100 mcg-umeclid 1 inh inhalation DAILY 07/21/20 11/29/22 62.5 mcg-vilant 25 mcg inhalat.powder (Trelegy Ellipta) nitroglycerin 400 mcg/spray 1 spray translingual Q5M PRN Chest 07/21/20 11/29/22 translingual Pain simvastatin 20 mg tablet 20 mg PO DAILY 07/21/20 11/29/22 esomeprazole magnesium 40 mg 40 mg PO DAILY 03/22/21 11/29/22 capsule,delayed release ranolazine 500 mg tablet,extended 500 mg PO Q12H 03/22/21 12/02/22 release,12 hr alprazolam 1 mg tablet 1 mg PO DAILY 11/29/22 11/29/22 levothyroxine 150 mcg tablet 175 mcg PO DAILY@0630 11/29/22 11/29/22 (Synthroid) <Gómez Gutierrez PA-C - Last Filed: 01/19/23 01:36> Allergies/adverse reactions: Allergies Allergy/AdvReac Type Severity Reaction Status Date / Time atorvastatin AdvReac Mild MADE ME Verified 01/18/23 20:34 SICK methocarbamol AdvReac Mild MADE ME Verified 01/18/23 20:34 SICK terbinafine AdvReac Mild MADE ME Verified 01/18/23 20:34 SICK <Gómez Gutierrez PA-C - Last Filed: 01/19/23 01:36> Review of Systems Review of Systems: All systems as dictated in HPI <Gómez Gutierrez PA-C - Last Filed: 01/19/23 01:36> [facility] Past Medical History Medical History: Medical History Basal cell carcinoma Closed fracture of right proximal humerus ORIF July 12, 2022 with Patiño staple device COPD (chronic obstructive pulmonary disease) Coronary artery disease Dr. Mane Dysphonia Frequent falls GERD (gastroesophageal reflux disease) High cholesterol History of thyroid cancer Treated with chemotherapy and radiation Hx of adenomatous colonic polyps Hypertension Hypothyroidism Lung cancer Status post right upper lobe pneumonectomy Peripheral neuropathy Thrombocytopenia <Gómez Gutierrez PA-C - Last Filed: 01/19/23 01:36> Surgical History Surgical History: Surgical History H/O arthroscopic knee surgery H/O right inguinal hernia repair (08/06/20) Repair of right inguinal hernia with 6 cm Parietex hernia mesh system History of bilateral carpal tunnel release History of colonoscopy History of coronary angioplasty History of esophagogastroduodenoscopy (EGD) 2006 History of hemorrhoidectomy History of left inguinal hernia repair (11/2018) With 8 cm of Parietex mesh dr. Stapleton History of medial
[2023-01-18 22:55] LABS: Basophils Percent Auto 0.4 % (0.2-1.2); Eosinophils Absolute Auto 0.1 K/mm3 (0-0.3); Eosinophils Percent Auto 1.4 % (0-4.4); Hematocrit 41.3 % (42.0-52.0); Hemoglobin 13.6 g/dL (14.0-18.0); Immature Granulocyte Absolute 0.05 K/mm3 (0.00-0.031); Immature Granulocyte Percent A 0.5 % (0-0.5); Lymphocytes Absolute Auto 0.93 K/mm3 (0.9-3.2); Lymphocytes Percent Auto 9.1 % (18.3-44.2); Mean Corpuscular HGB Conc 32.9 g/dl (32-36); Mean Corpuscular Hemoglobin 30.2 pg (26-34); Mean Corpuscular Volume 91.8 fl (80-100); Mean Platelet Volume 9.8 fl (7.4-10.4); Monocytes Absolute Auto 1.2 K/mm3 (0.1-0.6); Monocytes Percent Auto 11.4 % (2.6-8.5); Neutrophils Absolute Auto 7.9 K/mm3 (1.3-6.7); Neutrophils Percent Auto 77.2 % (45.5-73.1); Platelet Count Result 199 k/mm3 (150-375); Red Cell Distribution Width 16.5 % (11.5-14.5); White Blood Count 10.2 K/mm3 (4.5-10.0)
[2023-01-18 23:07] LABS: INR 1.1; Partial Thromboplastin Time 30.8 SECONDS (22.3-36.8); Prothrombin Time 14.6 Seconds (11.1-14.7)
[2023-01-18 23:08] LABS: Alanine Aminotransferase 13 U/L (6-50); Albumin Level 3.9 g/dL (3.5-5.1); Alkaline Phosphatase 87 U/L (38-126); Anion Gap 7 mmol/L (8-16); Aspartate Amino Transferase 18 U/L (17-59); Bilirubin,Total 1.6 mg/dL (0.2-1.3); Blood Urea Nitrogen 12 mg/dL (9-20); Carbon Dioxide 29 mmol/L (22-30); Chloride 97 mmol/L (98-107); Estimated CRCL calculation 108 ml/min; Estimated Glomerular Filt Rate > 60; Glucose 95 mg/dL (65-110); Potassium 3.5 mmol/L (3.4-5.0); Sodium 133 mmol/L (137-145)
[2023-01-19 00:04] VITALS: PULSE 68; RESP 20; O2SAT 99
[2023-01-19 00:05] LABS: Appearance Urine Clear (Clear); Bilirubin Urine Negative (Negative); Blood Urine Negative (Negative); Color Urine Dark Yellow (Yellow); Glucose Urine UA Negative (Negative); Ketones Urine 1+ mg/dL (Negative); Leukocyte Esterase Ur Negative LEU/UL (Negative); Nitrate Urine Negative (Negative); Protein Urine Negative (Negative); Specific Grav Ur 1.012 (1.001-1.035); pH Urine 6.5 (5.0-9.0)
[2023-01-19 00:11] LABS: Add Urine Microscopic? NO
[2023-01-19 00:15] VITALS: PULSE 67; RESP 19; O2SAT 100
[2023-01-19 00:30] VITALS: PULSE 63; RESP 17; O2SAT 100
[2023-01-19 00:45] VITALS: PULSE 68; RESP 21; O2SAT 98
[2023-01-19 01:00] VITALS: PULSE 73; RESP 16; O2SAT 94
[2023-01-19 01:19] VITALS: BP 130/70
== END 2023-01-19 01:28 | disposition home or self-care (01) ==
PROVIDERS: Emergency Medicine; Emergency Provider Physician Assistant; PCP Family Medicine
DX: K62.5 Hemorrhage of anus and rectum (principal); J44.9 Chronic obstructive pulmonary disease, unspecified; I25.10 Atherosclerotic heart disease of native coronary artery without angina pectoris; I10 Essential (primary) hypertension; E78.00 Pure hypercholesterolemia, unspecified; E03.9 Hypothyroidism, unspecified; G62.9 Polyneuropathy, unspecified; K21.9 Gastro-esophageal reflux disease without esophagitis; F17.210 Nicotine dependence, cigarettes, uncomplicated; Z95.1 Presence of aortocoronary bypass graft; Z85.118 Personal history of other malignant neoplasm of bronchus and lung; Z85.850 Personal history of malignant neoplasm of thyroid; Z86.010 Personal history of colon polyps; Z90.2 Acquired absence of lung [part of]; Z90.49 Acquired absence of other specified parts of digestive tract; Z98.42 Cataract extraction status, left eye; Z98.41 Cataract extraction status, right eye; Z96.1 Presence of intraocular lens; Z79.82 Long term (current) use of aspirin; I71.43 Infrarenal abdominal aortic aneurysm, without rupture
CPT/HCPCS: 36415; 74177; 80053; 81003; 85025; 85610; 85730; 86850; 86900; 86901; 99284; Q9967

== ENCOUNTER 2023-02-17 16:27 | Emergency (ER) | payer MEDICARE, OTHER, SELFPAY ==
[2023-02-17] VITALS (9 sets, daily range): BP systolic 124–148; BP diastolic 66–76; PULSE 55–62; RESP 15–22; TEMP 36.6; O2SAT 96–99
--- NOTE | ~2023-02-17 | CT_ITS ---
EXAMINATION: CTA chest PE protocol DATE: 02/17/2023 20:37 INDICATION: Chest pain shortness of breath TECHNIQUE: Computed tomography angiography (CTA) of the chest was performed with 100 mL Omnipaque-350 intravenous contrast timed to evaluate the pulmonary arteries. Coronal maximum intensity projection 3D-reconstructions were created by the technologist. The dose-length product (DLP) was 386.00 mGy-cm. Automated exposure control and iterative reconstruction technique were employed. COMPARISON: 07/26/2022 FINDINGS: The pulmonary arteries are well-opacified. No pulmonary embolism is identified. There is mi ld dependent atelectasis of the lungs. Focal airspace opacities are present in the lower lobes. No pl eural effusion or pneumothorax. Changes of coronary artery bypass grafting are noted. There is a smal l amount of aspirated material in the distal trachea. Changes of right shoulder arthroplasty are note d. There is severe thoracic spondylosis. There is ectasia of the ascending aorta which measures up to 4.1 cm. Changes of cholecystectomy are noted. IMPRESSION: 1. No pulmonary embolus identified. 2. Minimal airspace opacities of the lower lobes, consistent with pneumonia. Reviewed, dictated and finalized at location [facility].
--- NOTE | ~2023-02-17 | XR_ITS ---
EXAMINATION: XR chest 2V DATE: 02/17/2023 16:54 INDICATION: Chest and left sided rib pain. Shortness of breath. TECHNIQUE: PA and lateral views of the chest were obtained. COMPARISON: Chest radiograph and CT dated 07/26/22 FINDINGS: Eventration along the right hemidiaphragm. No focal airspace opacities, pulmonary edema, pleural effu juan daniel or pneumothorax. Heart size is normal. Median sternotomy wires and mediastinal surgical clips ar e seen, likely from prior coronary artery bypass grafting. Reverse right total shoulder arthroplasty. Cholecystectomy clips in right upper quadrant. IMPRESSION: 1. No acute cardiopulmonary disease. Reviewed, dictated and finalized at location [facility].
--- NOTE | 2023-02-17 16:36 | ECG_ITS ---
Measurements Intervals [place] Rate: 55 P: 54 DE: 192 QRS: 21 QRSD: 106 T: 66 QT: 493 QTc: 475 Interpretive Statements SINUS BRADYCARDIA BASELINE ARTIFACT NONSPECIFIC T-WAVE ABNORMALITY PROLONGED QT INTERVAL ABNORMAL ECG COMPARED TO ECG 07/22/2022 14:16:15 SINUS BRADYCARDIA NOW PRESENT T-WAVE ABNORMALITY NOW PRESENT PROLONGED QT INTERVAL NOW PRESENT Electronically Signed On 02-17-2023 17:26:28 CDT by Duarte Clifton M.D.
[2023-02-17 16:52] LABS: Basophils Percent Auto 0.5 % (0.2-1.2); Eosinophils Absolute Auto 0.8 K/mm3 (0-0.3); Eosinophils Percent Auto 10.5 % (0-4.4); Hematocrit 37.3 % (42.0-52.0); Immature Granulocyte Absolute 0.03 K/mm3 (0.00-0.031); Immature Granulocyte Percent A 0.4 % (0-0.5); Lymphocytes Absolute Auto 1.43 K/mm3 (0.9-3.2); Lymphocytes Percent Auto 18.7 % (18.3-44.2); Mean Corpuscular HGB Conc 32.2 g/dl (32-36); Mean Corpuscular Hemoglobin 29.6 pg (26-34); Mean Corpuscular Volume 91.9 fl (80-100); Mean Platelet Volume 9.2 fl (7.4-10.4); Monocytes Absolute Auto 0.6 K/mm3 (0.1-0.6); Monocytes Percent Auto 8.1 % (2.6-8.5); Neutrophils Absolute Auto 4.7 K/mm3 (1.3-6.7); Neutrophils Percent Auto 61.8 % (45.5-73.1); Platelet Count Result 257 k/mm3 (150-375); Red Blood Count 4.06 M/mm3 (4.6-6.20); White Blood Count 7.6 K/mm3 (4.5-10.0)
[2023-02-17 17:02] LABS: INR 0.9
[2023-02-17 17:03] LABS: Partial Thromboplastin Time 30.6 SECONDS (22.3-36.8)
[2023-02-17 17:06] LABS: Alanine Aminotransferase 12 U/L (6-50); Albumin Level 3.8 g/dL (3.5-5.1); Alkaline Phosphatase 76 U/L (38-126); Anion Gap 3 mmol/L (8-16); Aspartate Amino Transferase 22 U/L (17-59); Bilirubin,Total 0.9 mg/dL (0.2-1.3); Blood Urea Nitrogen 8 mg/dL (9-20); Calcium 8.5 mg/dL (8.4-10.2); Carbon Dioxide 31 mmol/L (22-30); Chloride 95 mmol/L (98-107); Estimated CRCL calculation 103 ml/min; Estimated Glomerular Filt Rate > 60; Glucose 82 mg/dL (65-110); Lipase 39 U/L (23-300); Potassium 3.6 mmol/L (3.4-5.0); Sodium 129 mmol/L (137-145)
[2023-02-17 17:17] LABS: Troponin I < 0.012 ng/mL (0.000-0.034)
[2023-02-17] MEDS: MORPHINE SULFATE (*CRX) 2 MG/ML INJ IV PUSH (19:51)
--- NOTE | 2023-02-17 20:01 | ED.GENADULT ---
HPI - General Adult General Chief complaint: Chest Pain Stated complaint: rib pain Time Seen by Provider: 02/17/23 19:37 History of Present Illness HPI narrative: Patient is a 9-year-old male who presents ER with left-sided chest pain/rib pain. It occurred while he was at physical therapy. Sudden onset. He thinks it is from lifting a weight on the left side. He has pain with deep breath. No hemoptysis. No fevers chills or sweats. Recently had right shoulder surgery in the last month. He is on no blood thinners. Related Data Home Medications Medication Instructions Recorded Confirmed aspirin 81 mg chewable tablet 2 tablet PO DAILY 07/21/20 12/02/22 baclofen 10 mg tablet 10 mg PO TID PRN Pain 07/21/20 12/02/22 escitalopram oxalate 20 mg tablet 20 mg PO HS 07/21/20 11/29/22 fluticasone fur. 100 mcg-umeclid 1 inh inhalation DAILY 07/21/20 11/29/22 62.5 mcg-vilant 25 mcg inhalat.powder (Trelegy Ellipta) nitroglycerin 400 mcg/spray 1 spray translingual Q5M PRN Chest 07/21/20 11/29/22 translingual Pain simvastatin 20 mg tablet 20 mg PO DAILY 07/21/20 11/29/22 esomeprazole magnesium 40 mg 40 mg PO DAILY 03/22/21 11/29/22 capsule,delayed release ranolazine 500 mg tablet,extended 500 mg PO Q12H 03/22/21 12/02/22 release,12 hr levothyroxine 150 mcg tablet 175 mcg PO DAILY@0630 11/29/22 11/29/22 (Synthroid) Allergies Allergy/AdvReac Type Severity Reaction Status Date / Time atorvastatin AdvReac Mild MADE ME Verified 02/17/23 19:48 SICK methocarbamol AdvReac Mild MADE ME Verified 02/17/23 19:48 SICK terbinafine AdvReac Mild MADE ME Verified 02/17/23 19:48 SICK Review of Systems Review of Systems: All systems reviewed & are unremarkable except as noted in HPI and below Constitutional: Constitutional: Denies chills, Denies fatigue and Denies fever(s) ENT: Denies nasal congestion and Denies sore throat Cardiovascular: Cardiovascular: Reports chest pain, Denies rapid heart rate and Denies radiating jaw, neck or arm pain Respiratory: Respiratory: Denies cough, Denies dyspnea and Denies wheezing Comments: Pain with inspiration Gastrointestinal: Gastrointestinal: Denies abdominal pain, Denies nausea and Denies vomiting Integumentary/Breasts: Skin/Breast: Reports system reviewed and no additional complaints, except as docu [facility] Past Medical History Medical History Basal cell carcinoma Closed fracture of right proximal humerus ORIF July 12, 2022 with Patiño staple device COPD (chronic obstructive pulmonary disease) Coronary artery disease Dr. Mane Dysphonia Frequent falls GERD (gastroesophageal reflux disease) High cholesterol History of thyroid cancer Treated with chemotherapy and radiation Hx of adenomatous colonic polyps Hypertension Hypothyroidism Lung cancer Status post right upper lobe pneumonectomy Peripheral neuropathy Thrombocytopenia Surgical History Surgical History H/O arthroscopic knee surgery H/O right inguinal hernia repair (08/06/20) Repair of right inguinal hernia with 6 cm Parietex hernia mesh system History of bilateral carpal tunnel release History of colonoscopy History of coronary angioplasty History of esophagogastroduodenoscopy (EGD) 2006 History of hemorrhoidectomy History of left inguinal hernia repair (11/2018) With 8 cm of Parietex mesh dr. Stapleton History of medial meniscus repair of right knee (~2005) History of pneumonectomy (~2014) Right upper lobe due to lung cancer History of ventral hernia repair (~06/2006) Gastric volvulus with ventral hernia repair Hx of CABG (~09/2002) 4 vessel CABG Hx of cholecystectomy S/P ORIF (open reduction internal fixation) fracture Right shoulder 07/12/2022 Status post cataract extraction of both eyes with insertion of intraocular lens (~2015) Family History Family History (Reviewed 12/02
[2023-02-17 20:20] LABS: Troponin I < 0.012 ng/mL (0.000-0.034)
--- NOTE | 2023-02-17 21:27 | PC.NURSE ---
Alexandrea, from [facility] called this RN to receive an update about patient. This RN provided an update to Alexandrea about patient.
== END 2023-02-17 22:20 | disposition home or self-care (01) ==
PROVIDERS: Emergency Provider Emergency Medicine; PCP Family Medicine
DX: R07.89 Other chest pain (principal); J18.9 Pneumonia, unspecified organism; C44.91 Basal cell carcinoma of skin, unspecified; J44.9 Chronic obstructive pulmonary disease, unspecified; I25.10 Atherosclerotic heart disease of native coronary artery without angina pectoris; I10 Essential (primary) hypertension; E78.00 Pure hypercholesterolemia, unspecified; E03.9 Hypothyroidism, unspecified; G62.9 Polyneuropathy, unspecified; K21.9 Gastro-esophageal reflux disease without esophagitis; F17.210 Nicotine dependence, cigarettes, uncomplicated; Z95.1 Presence of aortocoronary bypass graft; Z85.850 Personal history of malignant neoplasm of thyroid; Z92.3 Personal history of irradiation; Z92.21 Personal history of antineoplastic chemotherapy; Z90.49 Acquired absence of other specified parts of digestive tract; Z90.2 Acquired absence of lung [part of]; Z98.42 Cataract extraction status, left eye; Z98.41 Cataract extraction status, right eye; Z96.1 Presence of intraocular lens; Z79.82 Long term (current) use of aspirin; R00.1 Bradycardia, unspecified; R94.31 Abnormal electrocardiogram [ECG] [EKG]
CPT/HCPCS: 36415; 71046; 71275; 80053; 83690; 84484; 85025; 85610; 85730; 93005; 96374; 99284; J2270; Q9967

== ENCOUNTER 2023-04-01 01:29 | Day surgery (SDC) | payer MEDICARE, OTHER, SELFPAY ==
[2023-03-16 15:37] VITALS: BMI 18.9
--- NOTE | 2023-03-30 09:04 | SUR.PREOP ---
Spoke with patient's brother regarding upcoming procedure. Reviewed preop instructions, appointment times, and procedure prep.
--- NOTE | 2023-03-31 13:28 | PM.HPGS ---
History of Present Illness History of Present Illness Consent: Risks, benefits, and alternatives have been discussed and questions answered. Patient agrees to proceed with procedure. Chief complaint: hx of colon polyps,Hemorrhage of anus and rectum Narrative: Cecilio Bergeron is a 72 year old male referred for colon cancer screening. He has had polyps removed by another physician about 6 years ago. Also he had bright red blood seen in his stools for few days in December. A CT scan what is done in the emergency room and was unremarkable. Review of Systems Review of Systems: All systems reviewed & are unremarkable except as noted in HPI and below PMFSH Past Medical History Medical History Basal cell carcinoma Closed fracture of right proximal humerus ORIF July 12, 2022 with Patiño staple device COPD (chronic obstructive pulmonary disease) Coronary artery disease Dr. Mane Dysphonia Frequent falls GERD (gastroesophageal reflux disease) High cholesterol History of thyroid cancer Treated with chemotherapy and radiation Hx of adenomatous colonic polyps Hypertension Hypothyroidism Lung cancer Status post right upper lobe pneumonectomy Lymphocytic esophagitis Nonerosive esophageal reflux disease Peripheral neuropathy Rectal bleeding Thrombocytopenia Surgical History Surgical History H/O arthroscopic knee surgery H/O right inguinal hernia repair (08/06/20) Repair of right inguinal hernia with 6 cm Parietex hernia mesh system History of bilateral carpal tunnel release History of colonoscopy History of coronary angioplasty History of esophagogastroduodenoscopy (EGD) 2006 History of hemorrhoidectomy History of left inguinal hernia repair (11/2018) With [address] mesh [address] Stapleton History of medial meniscus repair of right knee (~2005) History of pneumonectomy (~2014) Right upper lobe due to lung cancer History of ventral hernia repair (~06/2006) Gastric volvulus with ventral hernia repair Hx of CABG (~09/2002) 4 vessel CABG Hx of cholecystectomy S/P ORIF (open reduction internal fixation) fracture Right shoulder 07/12/2022 Status post cataract extraction of both eyes with insertion of intraocular lens (~2015) Status post dilation of esophageal narrowing Family History Family History Mother MVA (motor vehicle accident) Father Gunshot wound Sibling Heart disease Other Family history of cardiovascular disease Social History Social History Social History: He is currently at the [place] re[facility] facility. He lives alone. He has smoked as much as a pack of cigarettes per day since he was 20 years old. He is now down to 4-5 cigarettes a day. 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 code status full code Years smoked: 50 Smoking status: Light tobacco smoker Tobacco type: cigarettes Second hand tobacco smoke exposure: Yes Alcohol intake: former Drinks per week: 7 Alcohol use details: STATES LAST DRINK AUGUST 31, 1984 Substance use: never Substance use type: prescription drug Other substance usage details: hx of oxycodone for pain, currently hydrocodone for pain Lack of Transportation: No Lack of Food: Never True Current Housing: I Have Housing Concerned About Future Housing: No Difficulty Paying Gas/Electric Bills: No Difficulty Paying for Meds: No Currently Unemployed: No Education: Don't Know Difficulty w/ Childcare or Family Care: No Living arrangements: alone Occupation/Education: retired Gender identity (if verbalized by the patient): Male Sexual Orientation (if Verbalized by the Patient): Straight or Heterosexual Spiritual care concerns: No
[2023-04-01 06:47] VITALS: BP 119/66; PULSE 72; RESP 20; TEMP 35.9; O2SAT 93
[2023-04-01] MEDS: LACTATED RINGERS 1,000 ML 150 ML IV CONT (07:01)
--- NOTE | 2023-04-01 07:40 | WPDANESEPPF ---
Anes - Initial Pre Proc Eval Procedure: Operation Date: 04/01/23 08:00 Proposed Procedures p Colonoscopy - Steve Julian MD Date/Time: 04/01/23 07:40 Surgeon: Steve Julian MD Pre Op Diagnosis: hx of colon polyps,Hemorrhage of anus and rectum Patient Data Age: 72 Gender: M Height: 1.78 m Weight: 63.5 kg Last Vital Signs Temp 96.6 F L 04/01/23 06:47 Pulse 72 04/01/23 06:47 Resp 20 04/01/23 06:47 BP 119/66 04/01/23 06:47 Pulse Ox 93 04/01/23 06:47 O2 Del Method Room Air 04/01/23 06:47 Allergies Allergy/AdvReac Type Severity Reaction Status Date / Time atorvastatin AdvReac Mild MADE ME Verified 03/16/23 15:52 SICK methocarbamol AdvReac Mild MADE ME Verified 03/16/23 15:52 SICK terbinafine AdvReac Mild MADE ME Verified 03/16/23 15:52 SICK Home Medications Medication Instructions Recorded Confirmed Type aspirin 81 mg chewable tablet 2 tablet PO DAILY 07/21/20 03/16/23 History baclofen 10 mg tablet 10 mg PO TID PRN Pain 07/21/20 03/16/23 History escitalopram oxalate 20 mg tablet 20 mg PO HS 07/21/20 03/16/23 History fluticasone fur. 100 mcg-umeclid 1 inh inhalation DAILY 07/21/20 03/16/23 History 62.5 mcg-vilant 25 mcg inhalat.powder (Trelegy Ellipta) nitroglycerin 400 mcg/spray 1 spray translingual Q5M PRN Chest 07/21/20 03/16/23 History translingual Pain simvastatin 20 mg tablet 20 mg PO DAILY 07/21/20 03/16/23 History esomeprazole magnesium 40 mg 40 mg PO DAILY 03/22/21 03/16/23 History capsule,delayed release ranolazine 500 mg tablet,extended 500 mg PO Q12H 03/22/21 03/16/23 History release,12 hr albuterol sulfate 90 mcg/actuation 1 inh inhalation Q4H PRN Shortness 03/25/21 03/16/23 Rx aerosol inhaler (ProAir HFA) Of Breath Or Wheezing #0 grams hydrocodone 5 mg-acetaminophen 325 1 tablet PO Q6H PRN pain #10 tabs 03/25/21 03/16/23 Rx mg tablet levothyroxine 150 mcg tablet 175 mcg PO DAILY@0630 11/29/22 03/16/23 History (Synthroid) alprazolam 1 mg tablet 1 mg PO TID PRN anxiety #90 tabs 02/01/23 03/16/23 Rx Patient hx anesthesia problems: none Family hx anesthesia problems: none Results Review: All pre-operative results and documents have been reviewed as part of the pre-operative evaluation. FORMERLY [facility], [facility] Past Medical History Medical History Basal cell carcinoma Closed fracture of right proximal humerus ORIF July 12, 2022 with Patiño staple device COPD (chronic obstructive pulmonary disease) Coronary artery disease Dr. Mane Dysphonia Frequent falls GERD (gastroesophageal reflux disease) High cholesterol History of thyroid cancer Treated with chemotherapy and radiation Hx of adenomatous colonic polyps Hypertension Hypothyroidism Lung cancer Status post right upper lobe pneumonectomy Lymphocytic esophagitis Nonerosive esophageal reflux disease Peripheral neuropathy Rectal bleeding Thrombocytopenia Surgical History Surgical History H/O arthroscopic knee surgery H/O right inguinal hernia repair (08/06/20) Repair of right inguinal hernia with 6 cm Parietex hernia mesh system History of bilateral carpal tunnel release History of colonoscopy History of coronary angioplasty History of esophagogastroduodenoscopy (EGD) 2006 History of hemorrhoidectomy History of left inguinal hernia repair (11/2018) With 8 cm of Parietex mesh dr. Stapleton History of medial meniscus repair of right knee (~2005) History of pneumonectomy (~2014) Right upper lobe due to lung cancer History of ventral hernia repair (~06/2006) Gastric volvulus with ventral hernia repair Hx of CABG (~09/2002) 4 vessel CABG Hx of cholecystectomy S/P ORIF (open reduction internal fixation) fracture Right shoulder 07/12/2022 Status post cataract extraction of both eyes with insertion of intraocular lens (~2015) Status post dilation of esophageal narrowin
[2023-04-01 08:09] VITALS: BP 130/72; PULSE 62; RESP 22; O2SAT 95
[2023-04-01 08:19] VITALS: BP 149/80; PULSE 64; RESP 18; O2SAT 99
[2023-04-01 08:29] VITALS: BP 132/81; PULSE 64; RESP 20; O2SAT 99
== END 2023-04-01 08:40 | disposition home or self-care (01) ==
PROVIDERS: PCP Family Medicine; Visit Provider Internal Medicine Gastroenterology
PROC: 0DJD8ZZ Inspection of Lower Intestinal Tract, Via Natural or Artificial Opening Endoscopic (ICD-10-PCS; CPT 45378; principal; 2023-04-01 08:00)
DX: K92.1 Melena (principal); K64.8 Other hemorrhoids; I10 Essential (primary) hypertension; E03.9 Hypothyroidism, unspecified; E78.00 Pure hypercholesterolemia, unspecified; J44.9 Chronic obstructive pulmonary disease, unspecified; F17.210 Nicotine dependence, cigarettes, uncomplicated; Z79.82 Long term (current) use of aspirin; Z79.51 Long term (current) use of inhaled steroids; Z79.891 Long term (current) use of opiate analgesic; K21.9 Gastro-esophageal reflux disease without esophagitis; Z90.49 Acquired absence of other specified parts of digestive tract; Z90.2 Acquired absence of lung [part of]; Z98.890 Other specified postprocedural states; Z86.010 Personal history of colon polyps; Z85.828 Personal history of other malignant neoplasm of skin; Z86.79 Personal history of other diseases of the circulatory system; Z85.850 Personal history of malignant neoplasm of thyroid; Z85.118 Personal history of other malignant neoplasm of bronchus and lung; Z82.49 Family history of ischemic heart disease and other diseases of the circulatory system
CPT/HCPCS: 45378; J2704; J7120

== ENCOUNTER 2024-02-16 19:10 | Inpatient (IN) | payer MEDICARE, OTHER, SELFPAY ==
[2024-02-16] VITALS (12 sets, daily range): BP systolic 149–174; BP diastolic 82–96; PULSE 71–73; RESP 14–20; TEMP 36.8–36.9; O2SAT 95–100; BMI 20.3
--- NOTE | ~2024-02-16 | CT_ITS ---
CT diagnostic chest wo con Ordering provider: Torri Pinto MD History: 73 years Male with . hypoxia . Comparison: February 17, 2023 Technique: CT chest without IV contrast. Radiation reduction technique utilized. The dose-length product was 425.21 mGy-cm. FINDINGS: VISUALIZED THORACIC INLET: Normal. MEDIASTINUM: Postoperative changes in the mediastinum. Aorta/coronary arteries: Mild atheromatous disease. Ascending aorta measures 4.7 cm. Heart/other: The heart is not enlarged. Lymph nodes: No mediastinal or hilar adenopathy. Calcification the left hilum lymph nodes. Possible prevascular enlarged lymph node is seen in the area anterior to the left pulmonary artery me asuring 2.8 cm. Pericardial recess is possible. LUNGS: Left lower lobe pneumonia. Minimal pneumonia in the left upper lobe posteriorly. Minimal pneum onia in the right lower lobe medially. Underlying fibrotic changes. No pulmonary nodules or masses. N o effusions. No pneumothorax. VISUALIZED UPPER ABDOMEN: Status post cholecystectomy. Tiny stone in the right kidney. Tiny stone in the left kidney upper pole. Vascular calcifications are possible. Otherwise, the visualized upper abd omen is normal. MUSCULOSKELETAL: Soft tissues: The superficial soft tissues are normal. Bones: Age appropriate degenerative changes of the spine. Dextroscoliosis. Old healed fractures in th e left 11th and 12th ribs. IMPRESSION: 1. Ascending aorta measures 4.7 cm. 2. Pneumonia in the left lower lobe. Minimal pneumonic changes in the left upper and right lower lob es posteriorly. Reviewed, dictated and finalized at location A. IMPRESSION: 1. Ascending aorta measures 4.7 cm. 2. Pneumonia in the left lower lobe. Minimal pneumonic changes in the left upp er and right lower lobes posteriorly.
--- NOTE | ~2024-02-16 | XR_ITS ---
EXAMINATION: XR chest 1V portable DATE: 02/21/2024 06:06 INDICATION: Shortness of breath. TECHNIQUE: A single frontal view of the chest was obtained. COMPARISON: Chest single view 02/18/2024, chest CT 02/17/2024 FINDINGS: There is elevation of left hemidiaphragm. There are lucencies and interstitial opacities in the lungs, consistent with emphysema. There are airspace opacities in left mid and lower lung zones and right lower lung zone.. No pleural effusion or pneumothorax. The heart size is normal. Median alison rnotomy wires and mediastinal surgical clips are seen, likely from prior coronary artery bypass graft ing. There is a total right shoulder arthroplasty. IMPRESSION: 1. Stable airspace opacities in left mid and lower lung zones and right lower lung zone, consistent w ith pneumonia. 2. Emphysema. Reviewed, dictated and finalized at location A. IMPRESSION: 1. Stable airspace opacities in left mid and lower lung zones and right lower l jing zone, consistent with pneumonia. 2. Emphysema.
--- NOTE | ~2024-02-16 | XR_ITS ---
EXAMINATION: XR elbow LT min 3V DATE: 02/16/2024 19:52 INDICATION: Left elbow injury. TECHNIQUE: 3 views of left elbow were obtained. COMPARISON: None. FINDINGS: Alignment is normal. No fracture. Joint spaces are normal. No elbow joint effusion. There a re surgical clips in mid forearm. IMPRESSION: 1. No fracture. Reviewed, dictated and finalized at location A. IMPRESSION: 1. No fracture.
--- NOTE | ~2024-02-16 | XR_ITS ---
MODIFIED ESOPHAGRAM HISTORY: Diet modification TECHNIQUE: Modified barium esophagram was performed on 02/20/2024. I administered fluoroscopy and per formed the exam with speech pathologist. Patient was seated for lateral fluoroscopic imaging for ing estion of thin liquids, pudding, solids and quantified amounts, followed by thin liquids in uncontrol led amounts. This was recorded on tape. A single fluoroscopic spot image was also recorded. The DAP f or this procedure was 1.89 Gycm2. The amount of fluoroscopy time used during this procedure was 3.1 m inutes. FINDINGS: Oral stage: Adequate function. Pharyngeal stage: Reduced laryngeal elevation and reduced tongue base retraction. There is vallecular , piriform sinus and pharyngeal wall residue. There is laryngeal penetration with thin liquids with n o aspiration. Cervical/esophageal stage: The cricopharyngeus muscle is prominent but does not appear obstructing. V isualized portion of the more caudal cervical esophagus appears patulous which could be related to a prior nonvisualized esophageal stricture given the patient reported history of prior balloon dilation . Correlate with clinical history. IMPRESSION: Pharyngeal dysphagia with small amount of transient laryngeal penetration without aspirat ion with thin liquids. Please correlate with speech pathologist findings and specific feeding recomm endations. Reviewed, dictated and finalized at location A. IMPRESSION: Pharyngeal dysphagia with small amount of transient laryngeal penet ration without aspiration with thin liquids. Please correlate with speech path ologist findings and specific feeding recommendations.
--- NOTE | ~2024-02-16 | US_ITS ---
BILATERAL LOWER EXTREMITY VENOUS ULTRASOUND Ordering provider: Torri Pinto MD History: . hypoxia, fall . Comparison: March 17, 2020 FINDINGS: RIGHT LOWER EXTREMITY VEINS: --COMMON FEMORAL: Patent and free of thrombus. Normal compressibility, phasic flow and augmentation. --PROXIMAL SUPERFICIAL FEMORAL: Patent and free of thrombus. Normal compressibility, phasic flow and augmentation. --DISTAL SUPERFICIAL FEMORAL: Patent and free of thrombus. Normal compressibility, phasic flow and au gmentation. --POPLITEAL: Patent and free of thrombus. Normal compressibility, phasic flow and augmentation. --POSTERIOR TIBIAL: Patent and free of thrombus. Normal compressibility, phasic flow and augmentation . LEFT LOWER EXTREMITY VEINS: --COMMON FEMORAL: Patent and free of thrombus. Normal compressibility, phasic flow and augmentation. --PROXIMAL SUPERFICIAL FEMORAL: Patent and free of thrombus. Normal compressibility, phasic flow and augmentation. --DISTAL SUPERFICIAL FEMORAL: Patent and free of thrombus. Normal compressibility, phasic flow and au gmentation. --POPLITEAL: Patent and free of thrombus. Normal compressibility, phasic flow and augmentation. --POSTERIOR TIBIAL: Patent and free of thrombus. Normal compressibility, phasic flow and augmentation . IMPRESSION: Negative bilateral lower extremity venous US. No deep vein thrombosis. Reviewed, dictated and finalized at location A.
--- NOTE | ~2024-02-16 | CT_ITS ---
EXAMINATION: CT brain wo con DATE: 02/16/2024 19:40 INDICATION: Head injury. TECHNIQUE: Computed tomography (CT) of the head was performed without intravenous contrast. The mA wa s adjusted according to patient size. Iterative reconstruction technique was employed. The dose-lengt h product was 681.00 mGy-cm. COMPARISON: Head CT 07/20/2022 FINDINGS: There are scattered areas of low attenuation in the cerebral white matter. There is no intr acranial hemorrhage, acute infarction, or abnormal intracranial mass lesion. The ventricles are leandro l in size. There is mild mucosal thickening in the paranasal sinuses. There are likely changes of ocu lar lens replacement surgeries. The mastoid air cells are normal. There is mucosal thickening in the scalp on the left. IMPRESSION: 1. Moderate nonspecific cerebral white matter disease, which likely represents chronic small vessel i schemic disease. Reviewed, dictated and finalized at location A. IMPRESSION: 1. Moderate nonspecific cerebral white matter disease, which likely represents chronic small vessel ischemic disease.
--- NOTE | ~2024-02-16 | XR_ITS ---
EXAMINATION: XR chest 1V DATE: 02/16/2024 19:52 INDICATION: Shortness of breath. TECHNIQUE: A single frontal view of the chest was obtained. COMPARISON: Chest 2 views 02/17/2023, chest CT 02/17/2023 FINDINGS: There is mild atelectasis at left lung base. There is a small left pleural effusion. No pne umothorax. The heart size is normal. Median sternotomy wires and mediastinal surgical clips are seen, likely from prior coronary artery bypass grafting. There is a total right shoulder arthroplasty. IMPRESSION: 1. Small left pleural effusion. 2. Mild atelectasis at left lung base. Reviewed, dictated and finalized at location A.
--- NOTE | ~2024-02-16 | XR_ITS ---
XR chest 1V portable 02/18/2024 11:32 Indication: Difficulty breathing Procedure: AP portable chest Comparison: Comparison to multiple prior studies sequentially, with oldest reviewed study dated 07/23. Findings: Status post median sternotomy for CABG. Cardiomegaly. Asymmetric left-sided airspace diseas e, consistent with pneumonia. The lungs are hyperinflated which is consistent with, but not diagnosti c of chronic obstructive pulmonary disease. Impression: 1: Left basilar airspace disease, consistent with pneumonia. Reviewed, dictated and finalized at location B. Impression: 1: Left basilar airspace disease, consistent with pneumonia.
--- NOTE | ~2024-02-16 | XR_ITS ---
EXAMINATION: XR wrist RT min 3V DATE: 02/16/2024 19:52 INDICATION: Right wrist injury. TECHNIQUE: 3 views of right wrist were obtained. COMPARISON: Right wrist radiographs 08/21/2020 FINDINGS: There is an old healed fracture of distal radius. There is 4 degrees dorsal tilt of the dis pan articular surface. No acute fracture. There is severe osteoarthritis of first carpometacarpal lia nt. IMPRESSION: 1. Severe osteoarthritis of first carpometacarpal joint. Reviewed, dictated and finalized at location A.
--- NOTE | 2024-02-16 19:20 | ECG_ITS ---
Test Date: 2024-02-16 20:15:22 Measurements Intervals [place] Rate: 71 P: 86 [place]: 176 QRS: 37 QRSD: 92 T: 72 QT: 352 QTc: 383 Interpretive Statements SINUS RHYTHM NONSPECIFIC T-WAVE ABNORMALITY No previous ECG available for comparison Electronically Signed On 02-17-2024 13:36:06 CDT by Harika West M.D.
[2024-02-16] MEDS: SODIUM CHLORIDE 0.9% IV 1,000 ML 999 ML IV CONT (19:55)
[2024-02-16 20:14] LABS: Basophils Percent Auto 0.3 % (0.2-1.2); Eosinophils Absolute Auto 0.3 K/mm3 (0-0.3); Eosinophils Percent Auto 2.1 % (0-4.4); Hematocrit 37.2 % (42.0-52.0); Hemoglobin 12.3 g/dL (14.0-18.0); Immature Granulocyte Absolute 0.03 K/mm3 (0.00-0.031); Immature Granulocyte Percent A 0.3 % (0-0.5); Lymphocytes Absolute Auto 0.37 K/mm3 (0.9-3.2); Lymphocytes Percent Auto 3.1 % (18.3-44.2); Mean Corpuscular HGB Conc 33.1 g/dl (32-36); Mean Corpuscular Hemoglobin 28.6 pg (26-34); Mean Corpuscular Volume 86.5 fl (80-100); Mean Platelet Volume 9.6 fl (7.4-10.4); Monocytes Absolute Auto 0.5 K/mm3 (0.1-0.6); Monocytes Percent Auto 4.5 % (2.6-8.5); Neutrophils Absolute Auto 10.7 K/mm3 (1.3-6.7); Neutrophils Percent Auto 89.7 % (45.5-73.1); Platelet Count Result 223 k/mm3 (150-375); White Blood Count 11.9 K/mm3 (4.5-10.0)
--- NOTE | 2024-02-16 20:18 | ED_ITS ---
HPI - Fall General Chief Complaint: Fall Stated Complaint: FALL History of Present Illness HPI Narrative: Male who presents ER after being found down on the ground at his home. He has been on the ground for approximately 18 hours. He did strike his head. No reports of LOC. He has had a cough over last week and has been seen by his PCP. Apparently he had an elevated BNP. Patient clinically looks very dry. He has no complaints of pain. He thinks he was eating oatmeal when he fell. He was found by his brother who provided the majority of the history. Related Data Home Medications Medication Instructions Recorded Confirmed aspirin 81 mg chewable tablet 2 tablet PO DAILY 07/21/20 03/16/23 baclofen 10 mg tablet 10 mg PO TID PRN Pain 07/21/20 03/16/23 escitalopram oxalate 20 mg tablet 20 mg PO HS 07/21/20 03/16/23 fluticasone fur. 100 mcg-umeclid 1 inh inhalation DAILY 07/21/20 03/16/23 62.5 mcg-vilant 25 mcg inhalat.powder (Trelegy Ellipta) nitroglycerin 400 mcg/spray 1 spray translingual Q5M PRN Chest 07/21/20 03/16/23 translingual Pain simvastatin 20 mg tablet 20 mg PO DAILY 07/21/20 03/16/23 esomeprazole magnesium 40 mg 40 mg PO DAILY 03/22/21 03/16/23 capsule,delayed release ranolazine 500 mg tablet,extended 500 mg PO Q12H 03/22/21 03/16/23 release,12 hr levothyroxine 150 mcg tablet 175 mcg PO DAILY@0630 11/29/22 03/16/23 (Synthroid) Allergies Allergy/AdvReac Type Severity Reaction Status Date / Time atorvastatin AdvReac Mild MADE ME Verified 03/16/23 15:52 SICK methocarbamol AdvReac Mild MADE ME Verified 03/16/23 15:52 SICK terbinafine AdvReac Mild MADE ME Verified 03/16/23 15:52 SICK Review of Systems Review of Systems: ROS unobtainable: Yes unobtainable due to medical condition PMFSH Past Medical History Medical History Basal cell carcinoma Closed fracture of right proximal humerus ORIF July 12, 2022 with Patiño staple device COPD (chronic obstructive pulmonary disease) Coronary artery disease Dr. Mane Dysphonia Frequent falls GERD (gastroesophageal reflux disease) High cholesterol History of thyroid cancer Treated with chemotherapy and radiation Hx of adenomatous colonic polyps Hypertension Hypothyroidism Lung cancer Status post right upper lobe pneumonectomy Lymphocytic esophagitis Nonerosive esophageal reflux disease Peripheral neuropathy Rectal bleeding Thrombocytopenia Surgical History Surgical History H/O arthroscopic knee surgery H/O right inguinal hernia repair (08/06/20) Repair of right inguinal hernia with 6 cm Parietex hernia mesh system History of bilateral carpal tunnel release History of colonoscopy History of coronary angioplasty History of esophagogastroduodenoscopy (EGD) 2006 History of hemorrhoidectomy History of left inguinal hernia repair (11/2018) With 8 cm of [address]ex mesh dr. Stapleton History of medial meniscus repair of right knee (~2005) History of pneumonectomy (~2014) Right upper lobe due to lung cancer History of ventral hernia repair (~06/2006) Gastric volvulus with ventral hernia repair Hx of CABG (~09/2002) 4 vessel CABG Hx of cholecystectomy S/P ORIF (open reduction internal fixation) fracture Right shoulder 07/12/2022 Status post cataract extraction of both eyes with insertion of intraocular lens (~2015) Status post dilation of esophageal narrowing Family History Family History Mother MVA (motor vehicle accident) Father Gunshot wound Sibling Heart disease Other Family history of cardiovascular disease Social History Social History Social History: He is currently at the [place] [facility] facility. He lives alone. He has smoked as much as a pack of cigarettes per day since he was 20 years old. He is now down to 4-5 cigarettes a day. 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 code status full code Years smoked: 50 Smoking status: Current every day smoker Tobacco type: cigarettes Second hand tobacco smoke exposure: Yes Alcohol intake: former Drinks per week: 7 Alcohol use details: STATES LAST DRINK AUGUST 31, 1984 Substance use: never Substance use type: prescription drug Other substance usage details: hx of oxycodone for pain, currently hydrocodone for pain Do You Feel Safe in your Home?: Yes Lack of Transportation: No Lack of Food: Never True Current Housing: I Have Housing Concerned About Future Housing: No Difficulty Paying Gas/Electric Bills: No Difficulty Paying for Meds: No Currently Unemployed: No Education: Decline to Answer Difficulty w/ Childcare or Family Care: No Living arrangements: alone Occupation/Education: retired Gender identity (if verbalized by the patient): Male Sexual Orientation (if Verbalized by the Patient): Straight or Heterosexual Spiritual care concerns: No Exam Narrative: GENERAL: chronically ill-appearing, well-nourished, and in no acute distress. HEAD: Normocephalic, atraumatic. ENT: dry mucous membrane. NECK: Supple. CHEST: diffuse rales. No respiratory distress. HEART: Regular rate and rhythm. Normal peripheral pulses. ABDOMEN: Soft, nontender, nondistended. EXTREMITIES: Normal range of motion. No edema. SKIN: Warm, dry, abrasions ease her some skin tears to the right wrist and left elbow. Small abrasions over the upper inner aspect of the chest. NEURO: Alert and oriented x3. PSYCH: Normal mood and affect. Course Course Emergency Course: Admit to hospitalist service. Patient receiving IV fluid for hydration and to treat rhabdomyolysis. Vital Signs Vital signs: Vital Signs Pulse Rate 73 02/16/24 19:04 Respiratory Rate 14 02/16/24 19:04 Blood Pressure 149/96 H 02/16/24 19:04 Pulse Oximetry 98 02/16/24 19:04 Oxygen Delivery Room Air 02/16/24 19:04 Temperature 98.3 F 02/16/24 23:25 Pulse Rate 71 02/16/24 23:25 Respiratory Rate 20 02/16/24 23:25 Blood Pressure 150/84 H 02/16/24 23:25 Pulse Oximetry 95 02/16/24 23:25 Oxygen Delivery Nasal Cannula 02/16/24 22:35 Oxygen Flow Rate 3 02/16/24 22:35 MDM - Fall Lab Data 02/16/24 20:09 02/16/24 20:09 Labs: Lab Results 02/16/24 Range/Units 20:09 WBC 11.9 H (4.5-10.0) K/mm3 RBC 4.30 L (4.6-6.20) M/mm3 Hgb 12.3 L (14.0-18.0) g/dL Hct 37.2 L (42.0-52.0) % MCV 86.5 (80-100) fl MCH 28.6 (26-34) pg MCHC 33.1 (32-36) g/dl RDW 18.0 H (11.5-14.5) % Plt Count 223 (150-375) k/mm3 MPV 9.6 (7.4-10.4) fl Immature Gran % (Auto) 0.3 (0-0.5) % Neut % (Auto) 89.7 H (45.5-73.1) % Lymph % (Auto) 3.1 L (18.3-44.2) % [place] % (Auto) 4.5 (2.6-8.5) % Eos % (Auto) 2.1 (0-4.4) % Baso % (Auto) 0.3 (0.2-1.2) % Lymph # (Auto) 0.37 L (0.9-3.2) K/mm3 [place] # (Auto) 0.5 (0.1-0.6) K/mm3 Eos # (Auto) 0.3 (0-0.3) K/mm3 Baso # (Auto) 0.0 (0.0-0.1) K/mm3 Abs Immat Gran (auto) 0.03 (0.00-0.031) K/mm3 Absolute Neuts (auto) 10.7 H (1.3-6.7) K/mm3 Absolute Nucleated RBC 0.000 (0.0-0.012) K/mm3 Nucleated RBC % 0.0 (0.0-0.2) % Platelet Estimate Adequate (Adequate) Hypochromasia 1+ Anisocytosis 1+ Target Cells 1+ Ovalocytes 1+ Schistocytes None seen PT 14.8 H (11.1-14.7) Seconds INR 1.1 APTT 32.3 (22.3-36.8) Seconds Sodium 134 L (137-145) mmol/L Potassium 3.8 (3.4-5.0) mmol/L Chloride 96 L (98-107) mmol/L Carbon Dioxide 34 H (22-30) mmol/L Anion Gap 4 (4-12) mmol/L BUN 26 H D (9-20) mg/dL Creatinine 0.60 L (0.7-1.3) mg/dL Estim Creat Clear Calc 88 ml/min Estimated GFR > 60 (59 - ) Glucose 67 (65-110) mg/dL Lactic Acid 2.6 H (0.7-2.0) mmol/L Calcium 9.1 (8.4-10.2) mg/dL Total Bilirubin 1.6 H (0.2-1.3) mg/dL AST 111 H (17-59) U/L ALT 22 (6-50) U/L Alkaline Phosphatase 71 (38-126) U/L Total Creatine Kinase 5024 H (55-170) U/L Troponin I < 0.012 (0.000-0.034) ng/mL NT-Pro-B Natriuret Pep 1750 H (19.9-100) pg/mL Total Protein 8.0 (6.3-8.2) g/dL Albumin 4.0 (3.5-5.1) g/dL Influenza A (RT-PCR) Negative (Negative) Influenza B (RT-PCR) Negative (Negative) RSV (RT-PCR) Negative (Negative) SARS-CoV-2 RNA (RT-PCR) Negative (Negative) ECG Data EKG #1: ECG completion date: 02/16/24 ECG completion time: 20:15 EKG Interpretation: normal rate (71), sinus rhythm, no ectopy, non- specific ST changes, normal QRS, normal QT and NL axis Discharge Plan Discharge Clinical Impression: Rhabdomyolysis Patient Disposition: Still a Patient Condition: Improved
[2024-02-16 20:26] LABS: Lactic Acid Reflex 2.6 mmol/L (0.7-2.0)
[2024-02-16 20:30] LABS: INR 1.1; Prothrombin Time 14.8 Seconds (11.1-14.7)
[2024-02-16 20:31] LABS: Partial Thromboplastin Time 32.3 Seconds (22.3-36.8)
[2024-02-16 20:33] LABS: Alanine Aminotransferase 22 U/L (6-50); Alkaline Phosphatase 71 U/L (38-126); Anion Gap 4 mmol/L (4-12); Aspartate Amino Transferase 111 U/L (17-59); Bilirubin,Total 1.6 mg/dL (0.2-1.3); Blood Urea Nitrogen 26 mg/dL (9-20); Calcium 9.1 mg/dL (8.4-10.2); Carbon Dioxide 34 mmol/L (22-30); Chloride 96 mmol/L (98-107); Estimated CRCL calculation 88 ml/min; Estimated Glomerular Filt Rate > 60; Glucose 67 mg/dL (65-110); Potassium 3.8 mmol/L (3.4-5.0); Sodium 134 mmol/L (137-145)
[2024-02-16 20:35] LABS: Anisocytosis 1+; Hypochromasia 1+; Ovalocytes 1+; Platelet Estimate Adequate (Adequate); Target Cells 1+
[2024-02-16 20:36] LABS: Schistocytes None Seen
[2024-02-16 20:39] LABS: NT Pro B Type Natriuretic Pept 1750 pg/mL (19.9-100); Troponin I < 0.012 ng/mL (0.000-0.034)
[2024-02-16 20:49] LABS: Influenza A QL RT-PCR Negative (Negative); Influenza B QL RT-PCR Negative (Negative); RSV RNA, RT-PCR Negative (Negative); SARS-CoV-2 RNA PCR Negative (Negative)
[2024-02-16 20:50] LABS: Creatine Kinase 5024 U/L (55-170)
--- NOTE | 2024-02-16 21:37 | P.HP_ITS ---
H&P: HPI History of Present Illness Date/Time: 02/16/24 21:37 Chief Complaint: fall Narrative: This is a 73-year-old male with past medical history significant for COPD, frequent falls. Patient was brought to the emergency room after having a fall. No loss of consciousness. most of the history has been obtained from brother who is at bedside patient is distraught really unable to give much history denies any nausea, vomiting, diarrhea. Preliminary workup was significant for elevated CPK. Patient has been admitted for further evaluation management and treatment. EXAMINATION: CT brain wo con DATE: 02/16/2024 19:40 INDICATION: Head injury. TECHNIQUE: Computed tomography (CT) of the head was performed without intravenous contrast. The mA was adjusted according to patient size. Iterative reconstruction technique was employed. The dose-length product was 681.00 mGy- cm. COMPARISON: Head CT 07/20/2022 FINDINGS: There are scattered areas of low attenuation in the cerebral white matter. There is no intracranial hemorrhage, acute infarction, or abnormal intracranial mass lesion. The ventricles are normal in size. There is mild mucosal thickening in the paranasal sinuses. There are likely changes of ocular lens replacement surgeries. The mastoid air cells are normal. There is mucosal thickening in the scalp on the left. IMPRESSION: 1. Moderate nonspecific cerebral white matter disease, which likely represents chronic small vessel ischemic disease. EXAMINATION: XR chest 1V DATE: 02/16/2024 19:52 INDICATION: Shortness of breath. TECHNIQUE: A single frontal view of the chest was obtained. COMPARISON: Chest 2 views 02/17/2023, chest CT 02/17/2023 FINDINGS: There is mild atelectasis at left lung base. There is a small left pleural effusion. No pneumothorax. The heart size is normal. Median sternotomy wires and mediastinal surgical clips are seen, likely from prior coronary artery bypass grafting. There is a total right shoulder arthroplasty. IMPRESSION: 1. Small left pleural effusion. 2. Mild atelectasis at left lung base. Review of Systems Review of Systems: fall FORMERLY [facility] Past Medical History Medical History Basal cell carcinoma Closed fracture of right proximal humerus ORIF July 12, 2022 with Patiño staple device COPD (chronic obstructive pulmonary disease) Coronary artery disease Dr. Mane Dysphonia Frequent falls GERD (gastroesophageal reflux disease) High cholesterol History of thyroid cancer Treated with chemotherapy and radiation Hx of adenomatous colonic polyps Hypertension Hypothyroidism Lung cancer Status post right upper lobe pneumonectomy Lymphocytic esophagitis Nonerosive esophageal reflux disease Peripheral neuropathy Rectal bleeding Thrombocytopenia Surgical History Surgical History H/O arthroscopic knee surgery H/O right inguinal hernia repair (08/06/20) Repair of right inguinal hernia with 6 cm Parietex hernia mesh system History of bilateral carpal tunnel release History of colonoscopy History of coronary angioplasty History of esophagogastroduodenoscopy (EGD) 2006 History of hemorrhoidectomy History of left inguinal hernia repair (11/2018) With 8 cm of P[address]ex mesh dr. Stapleton History of medial meniscus repair of right knee (~2005) History of pneumonectomy (~2014) Right upper lobe due to lung cancer History of ventral hernia repair (~06/2006) Gastric volvulus with ventral hernia repair Hx of CABG (~09/2002) 4 vessel CABG Hx of cholecystectomy S/P ORIF (open reduction internal fixation) fracture Right shoulder 07/12/2022 Status post cataract extraction of both eyes with insertion of intraocular lens (~2015) Status post dilation of esophageal narrowing Family History Family History Mother MVA (motor vehicle accident) Father Gunshot wound Sibling Heart disease Other Family history of cardiovascular disease Social History Social History Social History: He is currently at the [facility] facility. He lives alone. He has smoked as much as a pack of cigarettes per day since he was 20 years old. He is now down to 4-5 cigarettes a day. 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 code status full code Years smoked: 50 Smoking status: Current every day smoker Tobacco type: cigarettes Second hand tobacco smoke exposure: Yes Alcohol intake: former Drinks per week: 7 Alcohol use details: STATES LAST DRINK AUGUST 31, 1984 Substance use: never Substance use type: prescription drug Other substance usage details: hx of oxycodone for pain, currently hydrocodone for pain Do You Feel Safe in your Home?: Yes Lack of Transportation: No Lack of Food: Never True Current Housing: I Have Housing Concerned About Future Housing: No Difficulty Paying Gas/Electric Bills: No Difficulty Paying for Meds: No Currently Unemployed: No Education: Decline to Answer Difficulty w/ Childcare or Family Care: No Living arrangements: alone Occupation/Education: retired Gender identity (if verbalized by the patient): Male Sexual Orientation (if Verbalized by the Patient): Straight or Heterosexual Spiritual care concerns: No Meds Home Medications and Allergies Home Medications Medication Instructions Recorded Confirmed Type aspirin 81 mg chewable tablet 2 tablet PO DAILY 07/21/20 02/17/24 History baclofen 10 mg tablet 5 mg PO TID PRN muscle spasms 07/21/20 02/17/24 History escitalopram oxalate 20 mg tablet 20 mg PO HS 07/21/20 02/17/24 History fluticasone fur. 100 mcg-umeclid 1 inh inhalation DAILY 07/21/20 02/17/24 History 62.5 mcg-vilant 25 mcg inhalat.powder (Trelegy Ellipta) nitroglycerin 400 mcg/spray 1 spray translingual Q5M PRN Chest 07/21/20 02/17/24 History translingual Pain simvastatin 20 mg tablet 20 mg PO DAILY 07/21/20 02/17/24 History ranolazine 500 mg tablet,extended 500 mg PO Q12H 03/22/21 02/17/24 History release,12 hr albuterol sulfate 90 mcg/actuation 1 inh inhalation Q4H PRN Shortness 03/25/21 02/17/24 Rx aerosol inhaler (ProAir HFA) Of Breath Or Wheezing #0 grams alprazolam 1 mg tablet 1 mg PO TID PRN anxiety #90 tabs 02/01/23 02/17/24 Rx Allergies Allergy/AdvReac Type Severity Reaction Status Date / Time atorvastatin AdvReac Mild MADE ME Verified 03/16/23 15:52 SICK methocarbamol AdvReac Mild MADE ME Verified 03/16/23 15:52 SICK terbinafine AdvReac Mild MADE ME Verified 03/16/23 15:52 SICK Vital Signs Vital Signs - 24 hr 02/16/24 19:04 02/16/24 20:00 02/16/24 20:15 Pulse Rate 73 71 72 Respiratory Rate 14 18 18 Blood Pressure 149/96 H 173/96 H 174/92 H Pulse Oximetry 98 97 98 Oxygen Delivery Room Air 02/16/24 20:30 02/16/24 20:45 Pulse Rate 73 72 Respiratory Rate 16 18 Blood Pressure 163/87 H 150/89 H Pulse Oximetry 97 Oxygen Delivery Exam Narrative: laying in a stretcher Const: General: comfortable, no acute distress, well developed, alert, awake and average body habitus Nutritional Appearance: thin Orientation/consc iousness: patient oriented x3 Other: patient looks older than stated age HENMT: Head: normal to inspection, normocephalic and atraumatic Ears: hearing grossly normal bilaterally Face/Nose/Sinus: normal facial exam Face and sinus: normal facial exam Eyes: General: appearance normal, both eyes and all related structures Pupils: Equal, round and reactive pupils present EOM: EOMs intact bilaterally Neck: Neck: full ROM, no lymphadenopathy and no JVD Thyroid: thyroid normal Lymphatic: no lymphadenopathy noted Resp: Effort & Inspection: normal respiratory effort and able to speak in complete sentences Auscultation: clear to auscultation bilaterally Cardio: Jugular venous distension: no JVD Rate: regular rate Rhythm: regular rhythm Heart sounds: S1 normal heart sound present and S2 normal heart sound present GI: GI Palp: Yes Soft to palpation and Yes No hepatosplenomegaly present : General: Yes deferred Skin: Rashes: no rashes Wounds: no wounds Neuro: General: patient oriented x3 and CN's II-XI intact bilaterally Cranial nerves: Yes CN's II-XII intact bilaterally and Yes Equal, round and reactive pupils present Cognition (Neuro): normal cognition Speech: normal speech Gait exam (Neuro): Unable to assess gait Motor exam (neuro): 5/5 motor strength present throughout Extrem: General: normal to inspection, full ROM, no joint enlargement and no pedal edema H&P: Results Labs Labs: Short CBC 02/16/24 Range/Units 20:09 WBC 11.9 H (4.5-10.0) K/mm3 Hgb 12.3 L (14.0-18.0) g/dL Hct 37.2 L (42.0-52.0) % Plt Count 223 (150-375) k/mm3 [facility] 02/16/24 20:09 Sodium 134 L Potassium 3.8 Chloride 96 L Carbon Dioxide 34 H BUN 26 H D Creatinine 0.60 L Glucose 67 Calcium 9.1 Cardiac Enzymes 02/16/24 Range/Units 20:09 Total Creatine Kinase 5024 H (55-170) U/L Troponin I < 0.012 (0.000-0.034) ng/mL Liver Function 02/16/24 Range/Units 20:09 Total Bilirubin 1.6 H (0.2-1.3) mg/dL AST 111 H (17-59) U/L ALT 22 (6-50) U/L Alkaline Phosphatase 71 (38-126) U/L Albumin 4.0 (3.5-5.1) g/dL Assessment and Plan Assessment and plan (1) Rhabdomyolysis: Code(s): M62.82 - Rhabdomyolysis Status: Acute Assessment and Plan: admit to IMU patient is started on IV fluids continue to monitor (2) COPD (chronic obstructive pulmonary disease): Code(s): J44.9 - Chronic obstructive pulmonary disease, unspecified Status: Acute Assessment and Plan: breathing treatments (3) Frequent falls: Code(s): R29.6 - Repeated falls Status: Acute Assessment and Plan: PT OT consult (4) Tobacco abuse: Code(s): Z72.0 - Tobacco use Status: Acute Assessment and Plan: nicotine patch as needed (5) GERD (gastroesophageal reflux disease): Code(s): K21.9 - Gastro-esophageal reflux disease without esophagitis Status: Acute Assessment and Plan: PPI Hospitalist [facility] Advance Care Plan I have confirmed that the patient's Advanced Care Plan is present, code status is documented, or surrogate decision maker is listed in patient medical record.: Yes Medication Reconciliation I have utilized all available resources to obtain, update and review the patients current medications (includes all prescriptions, OTC, herbals, brooke abis, and nutritional supplements).: Yes
[2024-02-16] MEDS: SODIUM CHLORIDE 0.9% IV 1,000 ML 125 ML IV CONT (22:04)
--- NOTE | 2024-02-16 23:03 | PC.NURSE ---
cleaned wounds and applied dressings to protect open areas. date and time added.
[2024-02-16 23:12] LABS: Reflex Lactic Acid Yes or No Add Lactic
[2024-02-16] MEDS: HYDROcodone/acetaminophen (*CRX) 5-325 MG TABLET 1 TAB PO (23:40)
--- NOTE | 2024-02-16 23:55 | ADMGEN ---
2325: This patient, Cecilio Bergeron, was admitted to IMU Room 214-01. Patient/family oriented to hospital policies and general routines including ID bracelet, bed and alarms, visiting hours, pain management, procedures, bathroom and other care routines, personal items, smoking policy, room service/diet, and visiting hours. Information on how to activate the Rapid Response Team has been discussed. Patient/Family are encouraged to report perceived risks to care and to ask questions if they do not understand what they are told or what they should do.
[2024-02-17] VITALS (25 sets, daily range): BP systolic 91–113; BP diastolic 48–60; PULSE 50–78; RESP 16–20; TEMP 36.4–36.7; O2SAT 93–100; BMI 20.3
[2024-02-17 00:14] LABS: Lactic Acid 1.6 mmol/L (0.7-2.0)
[2024-02-17] MEDS: AZITHROMYCIN 500 MG/NS 250 ML 500 MG/250 ML BAG 250 MG IVPB ×2 (01:00→23:23)
[2024-02-17] MEDS: cefTRIAXone 2 GM/NS 100 ML 2 GM/100 ML BAG IVPB (01:00)
[2024-02-17] MEDS: IPRATROPIUM 0.5 MG/ALBUTEROL SULFATE 2.5 MG AMPUL.NEB 3 ML INHALATION ×4 (03:00→20:49)
[2024-02-17] MEDS: ACETAMINOPHEN 325 MG TABLET 650 MG PO ×3 (08:52→22:05)
[2024-02-17] MEDS: SODIUM CHLORIDE 0.9% IV 1,000 ML 150 ML IV CONT ×2 (10:47→17:54)
[2024-02-17 10:55] LABS: Basophils Percent Auto 0.1 % (0.2-1.2); Eosinophils Percent Auto 0.1 % (0-4.4); Hematocrit 28.8 % (42.0-52.0); Hemoglobin 9.1 g/dL (14.0-18.0); Immature Granulocyte Absolute 0.03 K/mm3 (0.00-0.031); Immature Granulocyte Percent A 0.3 % (0-0.5); Lymphocytes Percent Auto 6.9 % (18.3-44.2); Mean Corpuscular HGB Conc 31.6 g/dl (32-36); Mean Corpuscular Hemoglobin 28.1 pg (26-34); Mean Corpuscular Volume 88.9 fl (80-100); Mean Platelet Volume 9.3 fl (7.4-10.4); Monocytes Absolute Auto 0.4 K/mm3 (0.1-0.6); Monocytes Percent Auto 4.9 % (2.6-8.5); Neutrophils Absolute Auto 7.6 K/mm3 (1.3-6.7); Neutrophils Percent Auto 87.7 % (45.5-73.1); Platelet Count Result 154 k/mm3 (150-375); Red Blood Count 3.24 M/mm3 (4.6-6.20); Red Cell Distribution Width 18.3 % (11.5-14.5); White Blood Count 8.7 K/mm3 (4.5-10.0)
[2024-02-17 11:06] LABS: Alanine Aminotransferase 16 U/L (6-50); Alkaline Phosphatase 59 U/L (38-126); Anion Gap 3 mmol/L (4-12); Aspartate Amino Transferase 65 U/L (17-59); Bilirubin,Total 0.8 mg/dL (0.2-1.3); Blood Urea Nitrogen 26 mg/dL (9-20); Calcium 8.1 mg/dL (8.4-10.2); Carbon Dioxide 31 mmol/L (22-30); Chloride 99 mmol/L (98-107); Creatine Kinase 1336 U/L (55-170); Estimated CRCL calculation 87 ml/min; Estimated Glomerular Filt Rate > 60; Glucose 77 mg/dL (65-110); Sodium 133 mmol/L (137-145)
[2024-02-17 11:09] LABS: INR 1.2; Prothrombin Time 15.6 Seconds (11.1-14.7)
[2024-02-17] MEDS: RANOLAZINE 500 MG TAB.ER.12H PO ×2 (11:50→21:43)
[2024-02-17] MEDS: SIMVASTATIN 20 MG TABLET PO (11:51)
--- NOTE | 2024-02-17 16:29 | PM.IMPN ---
Progress Note: A&P Assessment and Plan (1) Rhabdomyolysis: Code(s): M62.82 - Rhabdomyolysis Status: Acute (2) Acute hypoxic respiratory failure: Code(s): J96.01 - Acute respiratory failure with hypoxia Status: Acute (3) COPD (chronic obstructive pulmonary disease): Code(s): J44.9 - Chronic obstructive pulmonary disease, unspecified Status: Acute Plan 73-year-old male with past medical history of COPD presented with recurrent falls. Was found to have elevated CPK levels. 1. Rhabdomyolysis: Monitor CPK levels, tending down Continue with IV fluids Monitor kidney function PT/OT as tolerated Drop in hemoglobin noted, may be dilutional Will trend H&H Noted elevation in LFTs, already improving Total bilirubin has normalized 2. Acute hypoxic respiratory failure: Chest x-ray done unremarkable Continue with O2 support Obtain CT chest Will obtain BNP with set of labs Obtain echo C/w ceftriaxone and azithromycin Continue with DuoNeb, fluticasone 3. Hypokalemia: Supplement potassium 4. Code status: Full 5. . DVT prophylaxis: Heparin subQ 6. Disposition: Pending improvement Time Spent With Patient Time with patient: 15 - 25 minutes Subjective Date/time seen: 02/17/24 16:29 Interval history: Continues to be on O2 support, currently on 4 L Review of Systems Review of Systems: All systems reviewed & are unremarkable except as noted in HPI and below Exam Const: General: comfortable HENMT: Mouth: Yes moist mucous membranes Eyes: Sclera: sclerae normal Neck: Neck: supple Resp: Other: Decreased breath sounds bilaterally, no wheezing heard Cardio: Rate: regular rate Rhythm: regular rhythm GI: GI Palp: Yes Soft to palpation Skin: General skin exam: normal color Neuro: Speech: normal speech Psych: Mental Status: mental status grossly normal Objective Data Vital Signs Vital Signs: Vital Signs - 24 hr 02/16/24 19:04 02/16/24 20:00 02/16/24 20:15 Temperature Pulse Rate 73 71 72 Respiratory Rate 14 18 18 Blood Pressure 149/96 H 173/96 H 174/92 H Pulse Oximetry 98 97 98 Oxygen Delivery Room Air Oxygen Flow Rate 02/16/24 20:30 02/16/24 20:45 02/16/24 20:50 Temperature Pulse Rate 73 72 72 Respiratory Rate 16 18 18 Blood Pressure 163/87 H 150/89 H 154/93 H Pulse Oximetry 97 100 Oxygen Delivery Oxygen Flow Rate 02/16/24 21:15 02/16/24 21:45 02/16/24 22:15 Temperature 98.5 F Pulse Rate 72 73 72 Respiratory Rate 18 16 18 Blood Pressure 159/88 H 161/87 H 159/87 H Pulse Oximetry 100 98 95 Oxygen Delivery Oxygen Flow Rate 02/16/24 22:45 02/16/24 22:35 02/16/24 23:25 Temperature 98.3 F Pulse Rate 73 71 Respiratory Rate 17 20 Blood Pressure 150/82 H 150/84 H Pulse Oximetry 95 99 95 Oxygen Delivery Nasal Cannula Oxygen Flow Rate 3 02/17/24 04:00 02/17/24 04:41 02/17/24 00:00 Temperature 98.1 F Pulse Rate 61 Respiratory Rate 16 20 Blood Pressure 113/60 Pulse Oximetry 99 93 Oxygen Delivery Nasal Cannula Oxygen Flow Rate 3 02/17/24 04:00 02/17/24 00:00 02/17/24 02:00 Temperature Pulse Rate 78 65 Respiratory Rate Blood Pressure Pulse Oximetry 95 Oxygen Delivery Nasal Cannula Oxygen Flow Rate 3 02/17/24 04:00 02/17/24 06:00 02/17/24 07:26 Temperature 97.5 F L Pulse Rate 66 61 50 L Respiratory Rate 18 Blood Pressure 98/54 L Pulse Oximetry 93 Oxygen Delivery Oxygen Flow Rate 02/17/24 09:08 02/17/24 09:16 02/17/24 08:00 Temperature Pulse Rate 62 59 L 66 Respiratory Rate 20 20 Blood Pressure Pulse Oximetry Oxygen Delivery Oxygen Flow Rate 02/17/24 10:15 02/17/24 10:00 02/17/24 11:16 Temperature 98.0 F Pulse Rate 64 64 65 Respiratory Rate 18 Blood Pressure 97/52 L Pulse Oximetry 94 Oxygen Delivery Oxygen Flow Rate 02/17/24 12:00 02/17/24 14:03 02/17/24 14:03 Temperature Pulse Rate 69 62 Respiratory Rate 20 Blood Pressure Pulse Oximetry 96 Oxygen Delivery Nasal Cannula Oxygen Flow Rate 4 02/17/24 14:10 02/17/24 14:00 02/17/24 15:23 Temperature 97.6 F Pulse Rate 54 L 63 57 L Respiratory Rate 20 18 Blood Pressure 99/58 L Pulse Oximetry 97 Oxygen Delivery Oxygen Flow Rate Intake/Output Intake/Output: Intake & Output 02/14/24 02/15/24 02/16/24 02/17/24 23:59 23:59 23:59 23:59 Intake Total 1000 1830 Output Total 600 Balance 1000 1230 Meds/Results Medications: Active Medications Generic Name Dose Route Start Last Admin Trade Name Freq PRN Reason Stop Dose Admin Acetaminophen 650 mg 02/16/24 21:45 02/17/24 16:27 Acetaminophen 325 Mg Tablet PO 650 mg Q4H PRN Administration Mild Pain (1-3) or Fever Hydrocodone Bitart/Acetaminophen 1 tab 02/16/24 21:45 02/16/24 23:40 Hydrocodone/Acetaminophen (*Crx) 5-325 Mg Tablet PO 1 tab Q4H PRN Administration Pain Rated 4-6 Albuterol/Ipratropium 3 ml 02/17/24 02:00 02/17/24 14:03 Ipratropium 0.5 Mg/Albuterol Sulfate 2.5 Mg Ampul.Neb 3 Ml INHALATION 3 ml Q6HRT CARYL Administration Alprazolam 1 mg 02/17/24 10:34 Alprazolam (*Crx) 0.5 Mg Tablet PO TID PRN anxiety Escitalopram Oxalate 20 mg 02/17/24 21:00 Escitalopram Oxalate 10 Mg Tablet PO HS CARYL Fluticasone/Umeclidinium/Vilanterol 1 puff 02/17/24 10:40 Fluticasone/Umeclidin/Vilanter 100-62.5-25 Mcg Ellipta INHALATION DAILYRT CARYL Sodium Chloride 1,000 mls @ 150 mls/hr 02/16/24 21:45 02/17/24 10:47 Normal Saline Iv IV CONT 150 mls/hr .Q6H40M CARYL Administration Ceftriaxone Sodium 2 gm in 100 mls @ 200 mls/hr 02/17/24 00:00 02/17/24 05:45 Rocephin 2 Gm/Ns 100 Ml IVPB Infused Q24H CARYL Infusion Azithromycin 500 mg in 250 mls @ 250 mls/hr 02/17/24 00:00 02/17/24 05:45 Zithromax IVPB Infused Q24H CARYL Infusion Ondansetron HCl 4 mg 02/16/24 21:45 Ondansetron Inj 4 Mg/2 Ml Vial IV PUSH Q4H PRN Nausea Potassium Chloride 40 meq 02/17/24 17:00 Potassium Chloride 20 Meq Packet (For Liquid) PO 02/17/24 21:01 Q4HR CARYL Ranolazine 500 mg 02/17/24 10:40 02/17/24 11:50 Ranolazine 500 Mg Tab.Er.12h PO 500 mg Q12HR CARYL Administration Simvastatin 20 mg 02/17/24 10:40 02/17/24 11:51 Simvastatin 20 Mg Tablet PO 20 mg DAILY CARYL Administration Radiology Results: ITS Impressions Head CT 02/16/24 19:47 IMPRESSION: 1. Moderate nonspecific cerebral white matter disease, which likely represents chronic small vessel ischemic disease. Elbow X-Ray 02/16/24 19:58 IMPRESSION: 1. No fracture. Wrist X-Ray 02/16/24 19:59 IMPRESSION: 1. Severe osteoarthritis of first carpometacarpal joint. Chest X-Ray 02/16/24 20:01 IMPRESSION: 1. Small left pleural effusion. 2. Mild atelectasis at left lung base. Labs Labs: Laboratory Results - last 24 hr 02/16/24 02/16/24 02/17/24 20:09 23:51 10:46 WBC 11.9 H 8.7 RBC 4.30 L 3.24 L Hgb 12.3 L 9.1 L D Hct 37.2 L 28.8 L MCV 86.5 88.9 MCH 28.6 28.1 MCHC 33.1 31.6 L RDW 18.0 H 18.3 H Plt Count 223 154 MPV 9.6 9.3 Immature Gran % (Auto) 0.3 0.3 Neut % (Auto) 89.7 H 87.7 H Lymph % (Auto) 3.1 L 6.9 L [place] % (Auto) 4.5 4.9 Eos % (Auto) 2.1 0.1 Baso % (Auto) 0.3 0.1 L Lymph # (Auto) 0.37 L 0.60 L [place] # (Auto) 0.5 0.4 Eos # (Auto) 0.3 0.0 Baso # (Auto) 0.0 0.0 Abs Immat Gran (auto) 0.03 0.03 Absolute Neuts (auto) 10.7 H 7.6 H Absolute Nucleated RBC 0.000 0.000 Nucleated RBC % 0.0 0.0 Platelet Estimate Adequate Hypochromasia 1+ Anisocytosis 1+ Target Cells 1+ Ovalocytes 1+ Schistocytes None seen PT 14.8 H INR 1.1 APTT 32.3 Sodium 134 L 133 L Potassium 3.8 3.0 L Chloride 96 L 99 Carbon Dioxide 34 H 31 H Anion Gap 4 3 L BUN 26 H D 26 H Creatinine 0.60 L 0.60 L Estim Creat Clear Calc 88 87 Estimated GFR > 60 > 60 Glucose 67 77 Lactic Acid 2.6 H 1.6 Calcium 9.1 8.1 L Total Bilirubin 1.6 H 0.8 AST 111 H 65 H ALT 22 16 Alkaline Phosphatase 71 59 Total Creatine Kinase 5024 H 1336 H Troponin I < 0.012 NT-Pro-B Natriuret Pep 1750 H Total Protein 8.0 6.0 L Albumin 4.0 3.0 L Influenza A (RT-PCR) Negative Influenza B (RT-PCR) Negative RSV (RT-PCR) Negative SARS-CoV-2 RNA (RT-PCR) Negative 02/17/24 10:47 WBC RBC Hgb Hct MCV MCH MCHC RDW Plt Count MPV Immature Gran % (Auto) Neut % (Auto) Lymph % (Auto) [place] % (Auto) Eos % (Auto) Baso % (Auto) Lymph # (Auto) [place] # (Auto) Eos # (Auto) Baso # (Auto) Abs Immat Gran (auto) Absolute Neuts (auto) Absolute Nucleated RBC Nucleated RBC % Platelet Estimate Hypochromasia Anisocytosis Target Cells Ovalocytes Schistocytes PT 15.6 H INR 1.2 APTT Sodium Potassium Chloride Carbon Dioxide Anion Gap BUN Creatinine Estim Creat Clear Calc Estimated GFR Glucose Lactic Acid Calcium Total Bilirubin AST ALT Alkaline Phosphatase Total Creatine Kinase Troponin I NT-Pro-B Natriuret Pep Total Protein Albumin Influenza A (RT-PCR) Influenza B (RT-PCR) RSV (RT-PCR) SARS-CoV-2 RNA (RT-PCR) Quality VTE Prophylaxis VTE prophylaxis: pharmacologic ordered
[2024-02-17] MEDS: POTASSIUM CHLORIDE 20 MEQ PACKET (FOR LIQUID) 40 MEQ PO ×2 (17:05→21:43)
[2024-02-17] MEDS: FLUTICASONE/UMECLIDIN/VILANTER 100-62.5-25 MCG ELLIPTA 1 PUFF INHALATION (17:05)
[2024-02-17] MEDS: ESCITALOPRAM OXALATE 10 MG TABLET 20 MG PO (21:42)
[2024-02-17] MEDS: HEPARIN SODIUM 5,000 UNITS/ML VIAL 5000 UNITS SUB-Q (21:45)
[2024-02-17] MEDS: ALPRAZolam (*CRX) 0.5 MG TABLET 1 MG PO (22:06)
--- NOTE | 2024-02-17 23:01 | PC.NURSE ---
Pt. administered Ativan & Tylenol at 2205 due to increased anxiety, generalized pain, & insomnia. Pt. states that his arms and shoulders are causing most of his pain, but that he feels pain from laying in the hospital bed for an extended period of time.
[2024-02-18] VITALS (25 sets, daily range): BP systolic 91–125; BP diastolic 50–60; PULSE 52–70; RESP 12–20; TEMP 36.3–37.3; O2SAT 95–100
--- NOTE | 2024-02-18 | ECHO_ITS ---
Patient Info Name: Cecilio Bergeron Age: 73 years : 1950 Gender: Male Ht: 70 in Wt: 141 lbs BSA: 1.77 m2 HR: 57 bpm BP: 125 / 60 mmHg Heart Rhythm: Sinus Rhythm Technical Quality: Poor Exam Date: 02/18/2024 8:38 AM Exam Location: Echo Lab Patient Status: Inpatient Admit Date: 02/17/2024 Staff Ordering Physician: Torri Pinto MD Drug Safety Associate: Regina Lu RDCS Attending Provider: Andrea High MD Exam Type: CA echo doppler color flow Study Info Indications - hypoxia Complete two-dimensional, color flow and Doppler transthoracic echocardiogram is performed. Reason for Poor Study: poor patient cooperation Summary 1. Complete two-dimensional, color flow and Doppler transthoracic echocardiogram is performed. 2. Normal left ventricular size with normal systolic and diastolic function. 3. Incidentally noted left ventricular false cord. 4. Trivial aortic and pulmonic regurgitation neither of clinical significance. Left Ventricle Left ventricular chamber dimension is normal. Left ventricular systolic function is normal, estimated at 60-65%. The left ventricular diastolic function is normal. Right Ventricle Right ventricular chamber dimension is normal. Left Atria Left atrial chamber dimension is normal. Right Atria Right atrial chamber dimension is normal. Aortic Valve The aortic valve is normal. There is trace aortic valve regurgitation. Pulmonic Valve The pulmonic valve is normal. There is mild pulmonic regurgitation. Mitral Valve The mitral valve has normal leaflets. Tricuspid Valve The tricuspid valve leaflets are normal. Pericardium/Pleural The pericardium appears normal. Aorta The aortic root size at the sinus of Valsalva is normal. Left Ventricular Outflow Tract Name Value Normal LVOT 2D LVOT Diameter 2.1 cm LVOT Doppler LVOT Peak Gradient 4 mmHg LVOT Mean Gradient 2 mmHg LVOT VTI 22 cm LVOT VTI/AV VTI Ratio 1.1 LVOT Stroke Volume 76 ml LVOT CO 4.7 l/min LVOT CI 2.6 l/min/m2 Mitral Valve Name Value Normal MV Doppler MV Decel Rolette 349 cm/s2 MV PHT 69 ms MV Area (PHT) 3.2 cm2 4.0-5.0 MV Diastolic Function MV E Peak Velocity 83 cm/s MV A Peak Velocity 61 cm/s MV E/A 1.4 MV Decel Time 238 ms MV Annular TDI MV E/e' (Septal) 8.8 <=8.0 MV E/e' (Lateral) 8.2 <=8.0 MV E/e' (Average) 8.5 Tricuspid Valve Name Value Normal TV Regurgitation Doppler TR Peak Velocity 204 cm/s TR Peak Gradient 10 mmHg Estimated PAP/RSVP RA Pressure 10 mmHg <=5 PA Systolic Pressure 27 mmHg <36 RV Systolic Pressure 27 mmHg <36 Aortic Valve Name Value Normal AV Doppler AV Peak Velocity 110 cm/s AV Peak Gradient 5 mmHg AV Mean Gradient 3 mmHg AV VTI 20 cm AV Area (Cont Eq VTI) 3.9 cm2 >=3.0 AV Area (Cont Eq Chema) 3.0 cm2 AV Regurgitation 2D LVOT Area 3.5 cm2 Ventricles Name Value Normal LV Dimensions 2D/MM IVS Diastolic Thickness (2D) 1.2 cm 0.6-1.0 LVID Diastole (2D) 4.9 cm 4.2-5.8 LVIW Diastolic Thickness (2D) 1.2 cm 0.6-1.0 LVID Systole (2D) 3.0 cm 2.5-4.0 LVOT Diameter 2.1 cm LV Mass (2D Cubed) 225.12 g 88.00-224.00 LV Mass Index (2D Cubed) 127 g/m2 49-115 Relative Wall Thickness (2D) 0.47 LV Fractional Shortening/Ejection Fraction 2D/MM LV Fractional Shortening (2D) 39 % 25-43 LV EF (2D Teicholz) 69 % 52-72 LV Diastolic Volume (4C MOD) 134 ml LV EF (4C MOD) 66 % LV Diastolic Volume (2C MOD) 112 ml LV EF (2C MOD) 60 % LV Diastolic Volume (BP MOD) 127 ml 62-150 LV Diastolic Volume Index (BP MOD) 71 ml/m2 34-74 LV Systolic Volume (BP MOD) 47 ml 21-61 LV Systolic Volume Index (BP MOD) 26 ml/m2 11-31 LV EF (BP MOD) 63 % 52-72 LV Diastolic Length (4C) 8.5 cm LV Systolic Length (4C) 5.9 cm LV Stroke Volume (4C MOD) 88 ml Atria Name Value Normal LA Dimensions LA Volume (4C A-L) 35 ml LA Volume (BP A-L) 31 ml RA Dimensions RA Area (4C) 10.7 cm2 <=18.0 Report Signatures
[2024-02-18] MEDS: cefTRIAXone 2 GM/NS 100 ML 2 GM/100 ML BAG IVPB ×2 (00:43→23:55)
[2024-02-18] MEDS: SODIUM CHLORIDE 0.9% IV 1,000 ML 150 ML IV CONT (01:49)
[2024-02-18] MEDS: IPRATROPIUM 0.5 MG/ALBUTEROL SULFATE 2.5 MG AMPUL.NEB 3 ML INHALATION ×4 (02:43→20:02)
[2024-02-18 05:03] LABS: Basophils Percent Auto 0.1 % (0.2-1.2); Eosinophils Percent Auto 0.4 % (0-4.4); Hematocrit 25.6 % (42.0-52.0); Hemoglobin 8.2 g/dL (14.0-18.0); Immature Granulocyte Absolute 0.07 K/mm3 (0.00-0.031); Lymphocytes Absolute Auto 0.81 K/mm3 (0.9-3.2); Lymphocytes Percent Auto 11.8 % (18.3-44.2); Mean Corpuscular Hemoglobin 27.9 pg (26-34); Mean Corpuscular Volume 87.1 fl (80-100); Mean Platelet Volume 9.6 fl (7.4-10.4); Monocytes Absolute Auto 0.3 K/mm3 (0.1-0.6); Monocytes Percent Auto 4.8 % (2.6-8.5); Neutrophils Absolute Auto 5.6 K/mm3 (1.3-6.7); Neutrophils Percent Auto 81.9 % (45.5-73.1); Platelet Count Result 154 k/mm3 (150-375); Red Blood Count 2.94 M/mm3 (4.6-6.20); White Blood Count 6.8 K/mm3 (4.5-10.0)
[2024-02-18 05:20] LABS: Alanine Aminotransferase 17 U/L (6-50); Albumin Level 2.7 g/dL (3.5-5.1); Alkaline Phosphatase 53 U/L (38-126); Anion Gap 1 mmol/L (4-12); Aspartate Amino Transferase 59 U/L (17-59); Bilirubin,Total 0.5 mg/dL (0.2-1.3); Blood Urea Nitrogen 20 mg/dL (9-20); Calcium 7.7 mg/dL (8.4-10.2); Carbon Dioxide 30 mmol/L (22-30); Chloride 102 mmol/L (98-107); Creatine Kinase 799 U/L (55-170); Estimated CRCL calculation 103 ml/min; Estimated Glomerular Filt Rate > 60; Glucose 77 mg/dL (65-110); Potassium 3.7 mmol/L (3.4-5.0); Sodium 133 mmol/L (137-145)
[2024-02-18 05:28] LABS: NT Pro B Type Natriuretic Pept 544 pg/mL (19.9-100)
[2024-02-18] MEDS: FLUTICASONE/UMECLIDIN/VILANTER 100-62.5-25 MCG ELLIPTA 1 PUFF INHALATION (06:58)
[2024-02-18] MEDS: RANOLAZINE 500 MG TAB.ER.12H PO ×2 (08:20→20:33)
[2024-02-18] MEDS: SIMVASTATIN 20 MG TABLET PO (08:20)
[2024-02-18] MEDS: HEPARIN SODIUM 5,000 UNITS/ML VIAL 5000 UNITS SUB-Q ×2 (08:20→20:33)
--- NOTE | 2024-02-18 09:13 | P.PNIM_ITS ---
Progress Note: A&P Assessment and Plan (1) Rhabdomyolysis: Code(s): M62.82 - Rhabdomyolysis Status: Acute (2) Acute hypoxic respiratory failure: Code(s): J96.01 - Acute respiratory failure with hypoxia Status: Acute (3) COPD (chronic obstructive pulmonary disease): Code(s): J44.9 - Chronic obstructive pulmonary disease, unspecified Status: Acute Plan 73-year-old male with past medical history of COPD presented with recurrent falls. Was found to have elevated CPK levels. 1. Rhabdomyolysis: Monitor CPK levels,is tending down dc IV fluids Monitor kidney function PT/OT as tolerated anemia Drop in hemoglobin noted, may be dilutional Will trend H&H f/u guaic iron panel and ferritin Noted elevation in LFTs, already improving Total bilirubin has normalized Acute hypoxic respiratory failure: Chest x-ray done unremarkable Continue with O2 support CT chest : Pneumonia in the left lower lobe. Minimal pneumonic changes in the left upper and right lower lobes posteriorly. Will obtain BNP with set of labs Obtain echo C/w ceftriaxone and azithromycin Continue with DuoNeb, fluticasone Community-acquired pneumonia Patient has low-grade fever 99.1 C/w ceftriaxone and azithromycin 3. Hypokalemia: Supplement potassium 4. Code status: Full Subjective Date/time seen: 02/18/24 09:13 Interval history: I saw exam patient today, patient feels generally weak, denies and time, chest pain, dysuria Exam Narrative: GENERAL: Pleasant, in no acute distress. Well-nourished. - EYES: EOMI. Anicteric. - HENT: Moist mucous membranes. - LUNGS: Clear to auscultation bilateral ly, no wheezing, rhonchi, or rales. - CARDIOVASCULAR: Regular rate and rhyth m. No murmur. No JVD. - ABDOMEN: Soft, non-tender and non-dist ended. No palpable masses. - EXTREMITIES: No edema. Peripheral puls es 2+. Non-tender. - NEUROLOGIC: No focal neurological defi cits. CN II-XII grossly intact. General weakness - PSYCHIATRIC: Awake, Alert and oriented x 3. Appropriate mood and affect. - SKIN: No rashes or lesions. Warm. - LYMPH: No cervical lymphadenopathy. Objective Data Vital Signs Vital Signs: Vital Signs - 24 hr 02/17/24 09:16 02/17/24 10:15 02/17/24 10:00 Temperature Pulse Rate 59 L 64 64 Respiratory Rate 20 Blood Pressure Pulse Oximetry Oxygen Delivery Oxygen Flow Rate 02/17/24 11:16 02/17/24 12:00 02/17/24 14:03 Temperature 98.0 F Pulse Rate 65 69 Respiratory Rate 18 Blood Pressure 97/52 L Pulse Oximetry 94 96 Oxygen Delivery Nasal Cannula Oxygen Flow Rate 4 02/17/24 14:03 02/17/24 14:10 02/17/24 14:00 Temperature Pulse Rate 62 54 L 63 Respiratory Rate 20 20 Blood Pressure Pulse Oximetry Oxygen Delivery Oxygen Flow Rate 02/17/24 15:23 02/17/24 16:00 02/17/24 18:00 Temperature 97.6 F Pulse Rate 57 L 54 L 54 L Respiratory Rate 18 Blood Pressure 99/58 L Pulse Oximetry 97 Oxygen Delivery Oxygen Flow Rate 02/17/24 19:40 02/17/24 20:50 02/17/24 20:53 Temperature 97.9 F Pulse Rate 56 L 64 Respiratory Rate 18 20 Blood Pressure 91/48 L Pulse Oximetry 100 96 Oxygen Delivery Nasal Cannula Oxygen Flow Rate 4 02/17/24 21:02 02/17/24 20:00 02/17/24 20:00 Temperature Pulse Rate 60 54 L Respiratory Rate 20 Blood Pressure Pulse Oximetry 95 Oxygen Delivery Nasal Cannula Oxygen Flow Rate 4 02/17/24 22:00 02/18/24 00:00 02/18/24 00:00 Temperature 97.9 F Pulse Rate 53 L 54 L 55 L Respiratory Rate 18 Blood Pressure 93/50 L Pulse Oximetry 98 Oxygen Delivery Oxygen Flow Rate 02/18/24 00:00 02/18/24 02:44 02/18/24 04:00 Temperature 98 F Pulse Rate 69 57 L Respiratory Rate 20 18 Blood Pressure 125/60 Pulse Oximetry 98 99 Oxygen Delivery Nasal Cannula Oxygen Flow Rate 4 02/18/24 02:00 02/18/24 04:00 02/18/24 04:00 Temperature Pulse Rate 61 52 L Respiratory Rate Blood Pressure Pulse Oximetry 99 Oxygen Delivery Nasal Cannula Oxygen Flow Rate 4 02/18/24 06:00 02/18/24 07:00 02/18/24 07:00 Temperature Pulse Rate 58 L 60 60 Respiratory Rate 18 18 Blood Pressure Pulse Oximetry 98 Oxygen Delivery Nasal Cannula Oxygen Flow Rate 4 02/18/24 07:10 02/18/24 08:00 Temperature 99.1 F Pulse Rate 63 61 Respiratory Rate 18 16 Blood Pressure 121/56 L Pulse Oximetry 99 Oxygen Delivery Oxygen Flow Rate Intake/Output Intake/Output: Intake & Output 02/15/24 02/16/24 02/17/24 02/18/24 23:59 23:59 23:59 23:59 Intake Total 1000 3310 1910 Output Total 600 200 Balance 1000 2710 1710 Meds/Results Medications: Active Medications Generic Name Dose Route Start Last Admin Trade Name Freq PRN Reason Stop Dose Admin Acetaminophen 650 mg 02/16/24 21:45 02/17/24 22:05 Acetaminophen 325 Mg Tablet PO 650 mg Q4H PRN Administration Mild Pain (1-3) or Fever Hydrocodone Bitart/Acetaminophen 1 tab 02/16/24 21:45 02/16/24 23:40 Hydrocodone/Acetaminophen (*Crx) 5-325 Mg Tablet PO 1 tab Q4H PRN Administration Pain Rated 4-6 Albuterol/Ipratropium 3 ml 02/17/24 02:00 02/18/24 06:58 Ipratropium 0.5 Mg/Albuterol Sulfate 2.5 Mg Ampul.Neb 3 Ml INHALATION 3 ml Q6HRT CARYL Administration Alprazolam 1 mg 02/17/24 10:34 02/17/24 22:06 Alprazolam (*Crx) 0.5 Mg Tablet PO 1 mg TID PRN Administration anxiety Escitalopram Oxalate 20 mg 02/17/24 21:00 02/17/24 21:42 Escitalopram Oxalate 10 Mg Tablet PO 20 mg HS CARYL Administration Fluticasone/Umeclidinium/Vilanterol 1 puff 02/17/24 10:40 02/18/24 06:58 Fluticasone/Umeclidin/Vilanter 100-62.5-25 Mcg Ellipta INHALATION 1 puff DAILYRT CARYL Administration Heparin Sodium (Porcine) 5,000 units 02/17/24 21:00 02/18/24 08:20 Heparin Sodium 5,000 Units/Ml Vial SUB-Q 5,000 units Q12HR CARYL Administration Sodium Chloride 1,000 mls @ 150 mls/hr 02/16/24 21:45 02/18/24 01:49 Normal Saline Iv IV CONT 150 mls/hr .Q6H40M CARYL Administration Ceftriaxone Sodium 2 gm in 100 mls @ 200 mls/hr 02/17/24 00:00 02/18/24 01:20 Rocephin 2 Gm/Ns 100 Ml IVPB Infused Q24H CARYL Infusion Azithromycin 500 mg in 250 mls @ 250 mls/hr 02/17/24 00:00 02/18/24 00:42 Zithromax IVPB Infused Q24H CARYL Infusion Ondansetron HCl 4 mg 02/16/24 21:45 Ondansetron Inj 4 Mg/2 Ml Vial IV PUSH Q4H PRN Nausea Perflutren Lipid Microsphere 0 ml 02/17/24 16:29 Perflutren Lipid Microspheres 1.5 Ml Vial Diluted To 10 Ml Total Volume IV PUSH 02/20/24 16:29 ONCE PRN adequate visualization Protocol Ranolazine 500 mg 02/17/24 10:40 02/18/24 08:20 Ranolazine 500 Mg Tab.Er.12h PO 500 mg Q12HR CARYL Administration Simvastatin 20 mg 02/17/24 10:40 02/18/24 08:20 Simvastatin 20 Mg Tablet PO 20 mg DAILY CARYL Administration Radiology Results: ITS Impressions Head CT 02/16/24 19:47 IMPRESSION: 1. Moderate nonspecific cerebral white matter disease, which likely represents chronic small vessel ischemic disease. Elbow X-Ray 02/16/24 19:58 IMPRESSION: 1. No fracture. Wrist X-Ray 02/16/24 19:59 IMPRESSION: 1. Severe osteoarthritis of first carpometacarpal joint. Chest X-Ray 02/16/24 20:01 IMPRESSION: 1. Small left pleural effusion. 2. Mild atelectasis at left lung base. Chest CT 02/17/24 17:54 IMPRESSION: 1. Ascending aorta measures 4.7 cm. 2. Pneumonia in the left lower lobe. Minimal pneumonic changes in the left upper and right lower lobes posteriorly. Venous Doppler Study 02/17/24 18:24 IMPRESSION: Negative bilateral lower extremity venous US. No deep vein thrombosis. Labs Labs: Laboratory Results - last 24 hr 02/17/24 02/17/24 02/18/24 10:46 10:47 04:40 WBC 8.7 6.8 RBC 3.24 L 2.94 L Hgb 9.1 L D 8.2 L Hct 28.8 L 25.6 L MCV 88.9 87.1 MCH 28.1 27.9 MCHC 31.6 L 32.0 RDW 18.3 H 18.0 H Plt Count 154 154 MPV 9.3 9.6 Immature Gran % (Auto) 0.3 1.0 H Neut % (Auto) 87.7 H 81.9 H Lymph % (Auto) 6.9 L 11.8 L [place] % (Auto) 4.9 4.8 Eos % (Auto) 0.1 0.4 Baso % (Auto) 0.1 L 0.1 L Lymph # (Auto) 0.60 L 0.81 L [place] # (Auto) 0.4 0.3 Eos # (Auto) 0.0 0.0 Baso # (Auto) 0.0 0.0 Abs Immat Gran (auto) 0.03 0.07 H Absolute Neuts (auto) 7.6 H 5.6 Absolute Nucleated RBC 0.000 0.000 Nucleated RBC % 0.0 0.0 PT 15.6 H INR 1.2 Sodium 133 L 133 L Potassium 3.0 L 3.7 Chloride 99 102 Carbon Dioxide 31 H 30 Anion Gap 3 L 1 L BUN 26 H 20 Creatinine 0.60 L 0.50 L Estim Creat Clear Calc 87 103 Estimated GFR > 60 > 60 Glucose 77 77 Calcium 8.1 L 7.7 L Magnesium 2.0 Total Bilirubin 0.8 0.5 AST 65 H 59 ALT 16 17 Alkaline Phosphatase 59 53 Total Creatine Kinase 1336 H 799 H NT-Pro-B Natriuret Pep 544 H Total Protein 6.0 L 5.0 L Albumin 3.0 L 2.7 L
[2024-02-18] MEDS: ESCITALOPRAM OXALATE 10 MG TABLET 20 MG PO (20:33)
[2024-02-18] MEDS: AZITHROMYCIN 500 MG/NS 250 ML 500 MG/250 ML BAG 250 MG IVPB (23:57)
[2024-02-19] VITALS (21 sets, daily range): BP systolic 102–142; BP diastolic 56–77; PULSE 56–69; RESP 16–24; TEMP 36.7–37.2; O2SAT 90–98
[2024-02-19] MEDS: IPRATROPIUM 0.5 MG/ALBUTEROL SULFATE 2.5 MG AMPUL.NEB 3 ML INHALATION ×4 (02:36→20:57)
[2024-02-19 05:12] LABS: Iron 33 ug/dL (49-181)
[2024-02-19 05:21] LABS: Percent Iron Saturation 15 % (20-50)
[2024-02-19] MEDS: HEPARIN SODIUM 5,000 UNITS/ML VIAL 5000 UNITS SUB-Q ×2 (08:01→20:45)
[2024-02-19] MEDS: SIMVASTATIN 20 MG TABLET PO (08:01)
[2024-02-19] MEDS: RANOLAZINE 500 MG TAB.ER.12H PO ×2 (08:01→20:45)
--- NOTE | 2024-02-19 09:17 | PM.IMPN ---
Progress Note: A&P Assessment and Plan (1) Rhabdomyolysis: Code(s): M62.82 - Rhabdomyolysis Status: Acute (2) Acute hypoxic respiratory failure: Code(s): J96.01 - Acute respiratory failure with hypoxia Status: Acute (3) COPD (chronic obstructive pulmonary disease): Code(s): J44.9 - Chronic obstructive pulmonary disease, unspecified Status: Acute Plan 73-year-old male with past medical history of COPD presented with recurrent falls. Was found to have elevated CPK levels. 1. Rhabdomyolysis: Monitor CPK levels,is tending down dc IV fluids Monitor kidney function PT/OT as tolerated anemia Drop in hemoglobin noted, may be dilutional Will trend H&H f/u guaic iron panel iron 33 low, TIBC 221 low, saturation 15% low Start ferrous sulfate 325 mg bid po Noted elevation in LFTs, already improving Total bilirubin has normalized Acute hypoxic respiratory failure: Chest x-ray done unremarkable Continue with O2 support CT chest : Pneumonia in the left lower lobe. Minimal pneumonic changes in the left upper and right lower lobes posteriorly. Will obtain BNP with set of labs Obtain echo C/w ceftriaxone and azithromycin Continue with DuoNeb, fluticasone Community-acquired pneumonia Patient has low-grade fever 99.1 C/w ceftriaxone and azithromycin Speech eval the patient, recommend modified diet and diarrhea swallowing test 3. Hypokalemia: Supplement potassium 4. Code status: Full Consult PT OT career development specialist for evaluation and assisting placement Subjective Date/time seen: 02/19/24 09:17 Interval history: I saw exam patient today, patient feels generally weak, denies and time, chest pain, dysuria. Exam Narrative: GENERAL: Pleasant, in no acute distress. Well-nourished. - EYES: EOMI. Anicteric. - HENT: Moist mucous membranes. - LUNGS: Clear to auscultation bilaterally, no wheezing, rhonchi, or rales. - CARDIOVASCULAR: Regular rate and rhythm. No murmur. No JVD. - ABDOMEN: Soft, non-tender and non-distended. No palpable masses. - EXTREMITIES: No edema. Peripheral pulses 2+. Non-tender. - NEUROLOGIC: No focal neurological deficits. CN II-XII grossly intact. General weakness - PSYCHIATRIC: Awake, Alert and oriented x 3. Appropriate mood and affect. - SKIN: No rashes or lesions. Warm. - LYMPH: No cervical lymphadenopathy. Objective Data Vital Signs Vital Signs: Vital Signs - 24 hr 02/18/24 10:19 02/18/24 10:00 02/18/24 11:56 Temperature 98.2 F Pulse Rate 63 61 Respiratory Rate 12 Blood Pressure 106/59 L Pulse Oximetry 98 100 Oxygen Delivery Nasal Cannula Oxygen Flow Rate 4 02/18/24 12:00 02/18/24 13:00 02/18/24 13:10 Temperature Pulse Rate 65 68 67 Respiratory Rate 18 18 Blood Pressure Pulse Oximetry Oxygen Delivery Oxygen Flow Rate 02/18/24 14:00 02/18/24 15:43 02/18/24 15:44 Temperature 97.9 F Pulse Rate 62 63 Respiratory Rate 16 Blood Pressure 91/50 L Pulse Oximetry 97 Oxygen Delivery Nasal Cannula Oxygen Flow Rate 3 02/18/24 16:00 02/18/24 18:00 02/18/24 20:04 Temperature Pulse Rate 64 64 66 Respiratory Rate 18 Blood Pressure Pulse Oximetry Oxygen Delivery Oxygen Flow Rate 02/18/24 20:06 02/18/24 20:00 02/18/24 20:00 Temperature 97.4 F L Pulse Rate 65 68 Respiratory Rate 20 Blood Pressure 104/60 Pulse Oximetry 95 100 Oxygen Delivery Nasal Cannula Oxygen Flow Rate 3 02/18/24 22:00 02/18/24 20:30 02/18/24 23:43 Temperature 98.8 F Pulse Rate 67 66 Respiratory Rate 18 Blood Pressure 98/54 L Pulse Oximetry 96 96 Oxygen Delivery Nasal Cannula Oxygen Flow Rate 3 02/19/24 00:00 02/19/24 00:00 02/19/24 02:00 Temperature Pulse Rate 62 63 Respiratory Rate Blood Pressure Pulse Oximetry 93 Oxygen Delivery Nasal Cannula Oxygen Flow Rate 3 02/19/24 02:38 02/18/24 20:14 02/19/24 02:47 Temperature Pulse Rate 62 68 65 Respiratory Rate 18 18 18 Blood Pressure Pulse Oximetry Oxygen Delivery Oxygen Flow Rate 02/19/24 04:00 02/19/24 04:00 02/19/24 06:00 Temperature 98.9 F Pulse Rate 63 59 L 56 L Respiratory Rate 24 H Blood Pressure 108/56 L Pulse Oximetry 96 Oxygen Delivery Oxygen Flow Rate 02/19/24 04:00 02/19/24 07:20 02/19/24 07:20 Temperature Pulse Rate 60 Respiratory Rate 18 Blood Pressure Pulse Oximetry 95 98 Oxygen Delivery Nasal Cannula Nasal Cannula Oxygen Flow Rate 3 3 02/19/24 07:29 02/19/24 08:00 02/19/24 07:55 Temperature 98.2 F Pulse Rate 59 L 58 L Respiratory Rate 20 20 Blood Pressure 111/61 Pulse Oximetry 98 95 Oxygen Delivery Nasal Cannula Oxygen Flow Rate 2 02/19/24 08:32 Temperature Pulse Rate Respiratory Rate Blood Pressure Pulse Oximetry 93 Oxygen Delivery Nasal Cannula Oxygen Flow Rate 1 Intake/Output Intake/Output: Intake & Output 02/16/24 02/17/24 02/18/24 02/19/24 23:59 23:59 23:59 23:59 Intake Total 1000 3310 3790 1070 Output Total 600 850 Balance 1000 2710 2940 1070 Meds/Results Medications: Active Medications Generic Name Dose Route Start Last Admin Trade Name Freq PRN Reason Stop Dose Admin Acetaminophen 650 mg 02/16/24 21:45 02/17/24 22:05 Acetaminophen 325 Mg Tablet PO 650 mg Q4H PRN Administration Mild Pain (1-3) or Fever Hydrocodone Bitart/Acetaminophen 1 tab 02/16/24 21:45 02/16/24 23:40 Hydrocodone/Acetaminophen (*Crx) 5-325 Mg Tablet PO 1 tab Q4H PRN Administration Pain Rated 4-6 Albuterol/Ipratropium 3 ml 02/17/24 02:00 02/19/24 07:18 Ipratropium 0.5 Mg/Albuterol Sulfate 2.5 Mg Ampul.Neb 3 Ml INHALATION 3 ml Q6HRT CARYL Administration Alprazolam 1 mg 02/17/24 10:34 02/17/24 22:06 Alprazolam (*Crx) 0.5 Mg Tablet PO 1 mg TID PRN Administration anxiety Escitalopram Oxalate 20 mg 02/17/24 21:00 02/18/24 20:33 Escitalopram Oxalate 10 Mg Tablet PO 20 mg HS CARYL Administration Fluticasone/Umeclidinium/Vilanterol 1 puff 02/17/24 10:40 02/18/24 06:58 Fluticasone/Umeclidin/Vilanter 100-62.5-25 Mcg Ellipta INHALATION 1 puff DAILYRT CARYL Administration Heparin Sodium (Porcine) 5,000 units 02/17/24 21:00 10/20/24 08:01 Heparin Sodium 5,000 Units/Ml Vial SUB-Q 5,000 units Q12HR CARYL Administration Ceftriaxone Sodium 2 gm in 100 mls @ 200 mls/hr 02/17/24 00:00 02/19/24 00:25 Rocephin 2 Gm/Ns 100 Ml IVPB Infused Q24H CARYL Infusion Azithromycin 500 mg in 250 mls @ 250 mls/hr 02/17/24 00:00 02/19/24 01:05 Zithromax IVPB Infused Q24H CARYL Infusion Ondansetron HCl 4 mg 02/16/24 21:45 Ondansetron Inj 4 Mg/2 Ml Vial IV PUSH Q4H PRN Nausea Perflutren Lipid Microsphere 0 ml 02/17/24 16:29 Perflutren Lipid Microspheres 1.5 Ml Vial Diluted To 10 Ml Total Volume IV PUSH 02/20/24 16:29 ONCE PRN adequate visualization Protocol Ranolazine 500 mg 02/17/24 10:40 02/19/24 08:01 Ranolazine 500 Mg Tab.Er.12h PO 500 mg Q12HR CARYL Administration Simvastatin 20 mg 02/17/24 10:40 02/19/24 08:01 Simvastatin 20 Mg Tablet PO 20 mg DAILY CARYL Administration Radiology Results: ITS Impressions Head CT 02/16/24 19:47 IMPRESSION: 1. Moderate nonspecific cerebral white matter disease, which likely represents chronic small vessel ischemic disease. Elbow X-Ray 02/16/24 19:58 IMPRESSION: 1. No fracture. Wrist X-Ray 02/16/24 19:59 IMPRESSION: 1. Severe osteoarthritis of first carpometacarpal joint. Chest CT 02/17/24 17:54 IMPRESSION: 1. Ascending aorta measures 4.7 cm. 2. Pneumonia in the left lower lobe. Minimal pneumonic changes in the left upper and right lower lobes posteriorly. Venous Doppler Study 02/17/24 18:24 IMPRESSION: Negative bilateral lower extremity venous US. No deep vein thrombosis. Chest X-Ray 02/18/24 11:47 Impression: 1: Left basilar airspace disease, consistent with pneumonia. Labs Labs: Laboratory Results - last 24 hr 02/19/24 04:33 Iron 33 L TIBC 221 L % Saturation 15 L Ferritin 48.30
[2024-02-19 09:38] LABS: Basophils Percent Auto 0.2 % (0.2-1.2); Eosinophils Absolute Auto 0.1 K/mm3 (0-0.3); Eosinophils Percent Auto 1.2 % (0-4.4); Hematocrit 23.8 % (42.0-52.0); Hemoglobin 7.8 g/dL (14.0-18.0); Immature Granulocyte Absolute 0.05 K/mm3 (0.00-0.031); Immature Granulocyte Percent A 0.9 % (0-0.5); Lymphocytes Absolute Auto 0.74 K/mm3 (0.9-3.2); Lymphocytes Percent Auto 12.7 % (18.3-44.2); Mean Corpuscular HGB Conc 32.8 g/dl (32-36); Mean Corpuscular Hemoglobin 28.5 pg (26-34); Mean Corpuscular Volume 86.9 fl (80-100); Mean Platelet Volume 10.1 fl (7.4-10.4); Monocytes Absolute Auto 0.4 K/mm3 (0.1-0.6); Monocytes Percent Auto 6.7 % (2.6-8.5); Neutrophils Absolute Auto 4.6 K/mm3 (1.3-6.7); Neutrophils Percent Auto 78.3 % (45.5-73.1); Platelet Count Result 144 k/mm3 (150-375); Red Blood Count 2.74 M/mm3 (4.6-6.20); Red Cell Distribution Width 18.1 % (11.5-14.5); White Blood Count 5.8 K/mm3 (4.5-10.0)
[2024-02-19 09:49] LABS: Anion Gap 1 mmol/L (4-12); Blood Urea Nitrogen 12 mg/dL (9-20); Calcium 7.9 mg/dL (8.4-10.2); Carbon Dioxide 31 mmol/L (22-30); Chloride 98 mmol/L (98-107); Estimated CRCL calculation 110 ml/min; Estimated Glomerular Filt Rate > 60; Glucose 87 mg/dL (65-110); Potassium 3.2 mmol/L (3.4-5.0); Sodium 130 mmol/L (137-145)
[2024-02-19] MEDS: FERROUS SULFATE 325 MG TABLET DR PO (10:43)
--- NOTE | 2024-02-19 13:06 | PCSTNOTE ---
This 73 year old male patient was evaluated at bedside to ensure swallowing safety during oral intake. The pt was admitted due to a fall, but has a hx of COPD and multiple esophageal stretching procedures as reported by LUIS Allison. Pt verbalized that he has had trouble swallowing for a while now that occurs when swallowing large pills and when eating solids. The pt is missing his lower back teeth, specifically his molars which makes it hard for him to grind food into smaller pieces. The pt presents with a weak/hoarse vocal quality at baseline. An oral motor exam revealed appropriate strength, range of motion, and symmetry for oral intake. Trials of thin liquid, puree, and mixed consistencies were administered at bedside via cup edge, straw, and spoon. Solid consistency was not trialed at bedside d/t the pt stating that he does not eat solid consistencies at home because he is unable to masticate them. Oral transit was timely with no oral residue on thin liquids or puree, but pt demonstrated increased mastication and multiple swallows on the mixed consistency (fruit cocktail). The pt demonstrated a throat clear multiple times between trials and exhibited a delayed cough after a trial of thin liquid and after both trials of the mixed consistency. Laryngeal elevation appeared adequate and timely for all swallows. Please note that silent aspiration cannot be ruled out at bedside. Given the results of the bedside swallow evaluation (BSE), a Modified Barium Swallow Study (MBS) is recommended. The pt is in agreement with diet modifications (Level 5, Minced and Moist; Level 1, Thin Liquids) until further testing is done on 02/20/24 to assess swallowing safety. Pt was educated on his diet modification as well as s/s of aspiration. It is recommended that the pt receive frequent supervision during meals, sit upright during oral intake and remain upright for at least 30 minutes following oral intake, take small bites/sips, minimize distractions, alternate solids/liquids, and do a throat clear as needed. When taking pills, it is recommended that the pt receive them crushed and put into a puree. Daniel, Hospitalist, and LUIS Allison were notified of BSE results and recommendations. Further diet/tx recommendations will be made following the completion of the MBS. Thank you for this referral.
[2024-02-19] MEDS: FLUTICASONE/UMECLIDIN/VILANTER 100-62.5-25 MCG ELLIPTA 1 PUFF INHALATION (14:16)
--- NOTE | 2024-02-19 18:38 | PC.NURSE ---
Report given to Indy.
[2024-02-19] MEDS: ESCITALOPRAM OXALATE 10 MG TABLET 20 MG PO (20:45)
[2024-02-19] MEDS: HYDROcodone/acetaminophen (*CRX) 5-325 MG TABLET 1 TAB PO (20:48)
[2024-02-19] MEDS: cefTRIAXone 2 GM/NS 100 ML 2 GM/100 ML BAG IVPB (23:00)
[2024-02-19] MEDS: AZITHROMYCIN 500 MG/NS 250 ML 500 MG/250 ML BAG 250 MG IVPB (23:38)
[2024-02-20] VITALS (15 sets, daily range): BP systolic 118–188; BP diastolic 67–87; PULSE 53–70; RESP 16–20; TEMP 36.2–36.7; O2SAT 92–98
--- NOTE | 2024-02-20 | PC.NURSE ---
Spo2 on room air 86-87%. Pt reports mild SOB. 2L via NC applied, spo2 up to 92%.
[2024-02-20] MEDS: IPRATROPIUM 0.5 MG/ALBUTEROL SULFATE 2.5 MG AMPUL.NEB 3 ML INHALATION ×4 (02:54→19:16)
--- NOTE | 2024-02-20 07:52 | P.PNIM_ITS ---
Progress Note: A&P Assessment and Plan (1) Rhabdomyolysis: Code(s): M62.82 - Rhabdomyolysis Status: Acute (2) Acute hypoxic respiratory failure: Code(s): J96.01 - Acute respiratory failure with hypoxia Status: Acute (3) COPD (chronic obstructive pulmonary disease): Code(s): J44.9 - Chronic obstructive pulmonary disease, unspecified Status: Acute Plan 73-year-old male with past medical history of COPD presented with recurrent falls. Was found to have elevated CPK levels. Rhabdomyolysis: Monitor CPK levels,is tending down dc IV fluids Monitor kidney function PT/OT as tolerated Resolved Acute on chronic blood-loss anemia Hemoglobin continue to drop, upon arrival hemoglobin 12, today hemoglobin 7.8 Pending guaic iron panel iron 33 low, TIBC 221 low, saturation 15% low Start ferrous sulfate 325 mg bid po Consult GI for evaluation treatment, GI plans EGD and colonoscopy If no GI bleeding, consider to consult cardiology physician assistant Noted elevation in LFTs, already improving Total bilirubin has normalized Acute hypoxic respiratory failure, community-acquired pneumonia Continue with O2 support CT chest : Pneumonia in the left lower lobe. Minimal pneumonic changes in the left upper and right lower lobes posteriorly. Will obtain BNP with set of labs Obtain echo Patient is on ceftriaxone and azithromycin, changed to Augmentin Continue with DuoNeb, fluticasone Community-acquired pneumonia Patient has low-grade fever 99.1 C/w ceftriaxone and azithromycin Speech eval the patient, recommend modified diet and barium swallowing test today 3. Hypokalemia: Supplement potassium 4. Code status: Full Consult PT OT animal daycare provider for evaluation and assisting placement Subjective Date/time seen: 02/20/24 07:52 Interval history: I saw exam patient today, patient still has general weakness, denies nausea vomiting, abdomen pain, afebrile, blood pressure stable, labs reviewed, hemoglobin continue to drop. Hemoglobin 7.8 today, upon arrival in the ED, hemoglobin 12.0 Exam Narrative: GENERAL: Pleasant, in no acute distress. Well-nourished. - EYES: EOMI. Anicteric. - HENT: Moist mucous membranes. - LUNGS: Clear to auscultation bilateral ly, no wheezing, rhonchi, or rales. - CARDIOVASCULAR: Regular rate and rhyth m. No murmur. No JVD. - ABDOMEN: Soft, non-tender and non-dist ended. No palpable masses. - EXTREMITIES: No edema. Peripheral puls es 2+. Non-tender. - NEUROLOGIC: No focal neurological defi cits. CN II-XII grossly intact. General weakness - PSYCHIATRIC: Awake, Alert and oriented x 3. Appropriate mood and affect. - SKIN: No rashes or lesions. Warm. - LYMPH: No cervical lymphadenopathy. Objective Data Vital Signs Vital Signs: Vital Signs - 24 hr 02/19/24 08:00 02/19/24 07:55 02/19/24 08:32 Temperature 98.2 F Pulse Rate 58 L Respiratory Rate 20 Blood Pressure 111/61 Pulse Oximetry 98 95 93 Oxygen Delivery Nasal Cannula Nasal Cannula Oxygen Flow Rate 2 1 Fraction of Inspired Oxygen 02/19/24 08:00 02/19/24 10:00 02/19/24 13:23 Temperature Pulse Rate 63 61 Respiratory Rate Blood Pressure Pulse Oximetry Oxygen Delivery Room Air Oxygen Flow Rate Fraction of Inspired Oxygen 02/19/24 11:55 02/19/24 10:00 02/19/24 12:00 Temperature 98.1 F Pulse Rate 60 59 L Respiratory Rate 16 Blood Pressure 102/60 Pulse Oximetry 97 Oxygen Delivery Room Air Oxygen Flow Rate Fraction of Inspired Oxygen 02/19/24 14:16 02/19/24 14:16 02/19/24 14:26 Temperature Pulse Rate 61 62 Respiratory Rate 20 20 Blood Pressure Pulse Oximetry 95 Oxygen Delivery Room Air Oxygen Flow Rate Fraction of Inspired Oxygen 21 02/19/24 16:00 02/19/24 16:00 02/19/24 19:59 Temperature 98.3 F 98.5 F Pulse Rate 66 63 69 Respiratory Rate 20 18 Blood Pressure 122/60 142/77 H Pulse Oximetry 95 90 Oxygen Delivery Oxygen Flow Rate Fraction of Inspired Oxygen 02/19/24 20:57 02/19/24 20:57 02/19/24 21:08 Temperature Pulse Rate 64 66 Respiratory Rate 20 18 Blood Pressure Pulse Oximetry 90 Oxygen Delivery Room Air Oxygen Flow Rate Fraction of Inspired Oxygen 02/19/24 20:00 02/20/24 00:00 02/20/24 00:00 Temperature 97.9 F Pulse Rate 66 62 63 Respiratory Rate 18 Blood Pressure 126/81 Pulse Oximetry 92 Oxygen Delivery Oxygen Flow Rate Fraction of Inspired Oxygen 02/20/24 02:56 02/20/24 03:04 02/20/24 04:00 Temperature Pulse Rate 64 66 53 L Respiratory Rate 18 18 Blood Pressure Pulse Oximetry Oxygen Delivery Oxygen Flow Rate Fraction of Inspired Oxygen 02/20/24 04:00 02/20/24 06:07 Temperature 98.0 F 97.4 F L Pulse Rate 60 60 Respiratory Rate 18 18 Blood Pressure 139/72 163/79 H Pulse Oximetry 93 98 Oxygen Delivery Oxygen Flow Rate Fraction of Inspired Oxygen Intake/Output Intake/Output: Intake & Output 02/17/24 02/18/24 02/19/24 02/20/24 23:59 23:59 23:59 23:59 Intake Total 3310 3790 1770 250 Output Total 600 850 360 850 Balance 2710 2940 1410 -600 Meds/Results Medications: Active Medications Generic Name Dose Route Start Last Admin Trade Name Freq PRN Reason Stop Dose Admin Acetaminophen 650 mg 02/16/24 21:45 02/17/24 22:05 Acetaminophen 325 Mg Tablet PO 650 mg Q4H PRN Administration Mild Pain (1-3) or Fever Hydrocodone Bitart/Acetaminophen 1 tab 02/16/24 21:45 02/19/24 20:48 Hydrocodone/Acetaminophen (*Crx) 5-325 Mg Tablet PO 1 tab Q4H PRN Administration Pain Rated 4-6 Albuterol/Ipratropium 3 ml 02/17/24 02:00 02/20/24 02:54 Ipratropium 0.5 Mg/Albuterol Sulfate 2.5 Mg Ampul.Neb 3 Ml INHALATION 3 ml Q6HRT CARYL Administration Alprazolam 1 mg 02/17/24 10:34 02/17/24 22:06 Alprazolam (*Crx) 0.5 Mg Tablet PO 1 mg TID PRN Administration anxiety Escitalopram Oxalate 20 mg 02/17/24 21:00 02/19/24 20:45 Escitalopram Oxalate 10 Mg Tablet PO 20 mg HS CARYL Administration Ferrous Sulfate 325 mg 02/19/24 09:25 02/20/24 07:42 Ferrous Sulfate [address] PO Not Given BID CARYL Fluticasone/Umeclidinium/Vilanterol 1 puff 02/17/24 10:40 02/19/24 14:16 Fluticasone/Umeclidin/Vilanter 100-62.5-25 Mcg Ellipta INHALATION 1 puff DAILYRT CARYL Administration Heparin Sodium (Porcine) 5,000 units 02/17/24 21:00 02/19/24 20:45 Heparin Sodium 5,000 Units/Ml Vial SUB-Q 5,000 units Q12HR CARYL Administration Ceftriaxone Sodium 2 gm in 100 mls @ 200 mls/hr 02/17/24 00:00 02/19/24 23:37 Rocephin 2 Gm/Ns 100 Ml IVPB Infused Q24H CARYL Infusion Azithromycin 500 mg in 250 mls @ 250 mls/hr 02/17/24 00:00 02/20/24 00:38 Zithromax IVPB Infused Q24H CARYL Infusion Ondansetron HCl 4 mg 02/16/24 21:45 Ondansetron Inj 4 Mg/2 Ml Vial IV PUSH Q4H PRN Nausea Perflutren Lipid Microsphere 0 ml 02/17/24 16:29 Perflutren Lipid Microspheres 1.5 Ml Vial Diluted To 10 Ml Total Volume IV PUSH 02/20/24 16:29 ONCE PRN adequate visualization Protocol Ranolazine 500 mg 02/17/24 10:40 02/19/24 20:45 Ranolazine 500 Mg Tab.Er.12h PO 500 mg Q12HR CARYL Administration Simvastatin 20 mg 02/17/24 10:40 02/19/24 08:01 Simvastatin 20 Mg Tablet PO 20 mg DAILY CARYL Administration Radiology Results: ITS Impressions Head CT 02/16/24 19:47 IMPRESSION: 1. Moderate nonspecific cerebral white matter disease, which likely represents chronic small vessel ischemic disease. Elbow X-Ray 02/16/24 19:58 IMPRESSION: 1. No fracture. Wrist X-Ray 02/16/24 19:59 IMPRESSION: 1. Severe osteoarthritis of first carpometacarpal joint. Chest CT 02/17/24 17:54 IMPRESSION: 1. Ascending aorta measures 4.7 cm. 2. Pneumonia in the left lower lobe. Minimal pneumonic changes in the left upper and right lower lobes posteriorly. Venous Doppler Study 02/17/24 18:24 IMPRESSION: Negative bilateral lower extremity venous US. No deep vein thrombosis. Chest X-Ray 02/18/24 11:47 Impression: 1: Left basilar airspace disease, consistent with pneumonia. Labs Labs: Laboratory Results - last 24 hr 02/19/24 04:33 WBC 5.8 RBC 2.74 L Hgb 7.8 L Hct 23.8 L MCV 86.9 MCH 28.5 MCHC 32.8 RDW 18.1 H Plt Count 144 L MPV 10.1 Immature Gran % (Auto) 0.9 H Neut % (Auto) 78.3 H Lymph % (Auto) 12.7 L [place] % (Auto) 6.7 Eos % (Auto) 1.2 Baso % (Auto) 0.2 Lymph # (Auto) 0.74 L [place] # (Auto) 0.4 Eos # (Auto) 0.1 Baso # (Auto) 0.0 Abs Immat Gran (auto) 0.05 H Absolute Neuts (auto) 4.6 Absolute Nucleated RBC 0.000 Nucleated RBC % 0.0 Sodium 130 L Potassium 3.2 L Chloride 98 Carbon Dioxide 31 H Anion Gap 1 L BUN 12 D Creatinine 0.50 L Estim Creat Clear Calc 110 Estimated GFR > 60 Glucose 87 Calcium 7.9 L
[2024-02-20] MEDS: FLUTICASONE/UMECLIDIN/VILANTER 100-62.5-25 MCG ELLIPTA 1 PUFF INHALATION (08:56)
--- NOTE | 2024-02-20 09:04 | P.CONGI_ITS ---
I, Saurabh Ga MD, have provided a substantive portion of the care of this patient and discussed the patient with my Nurse Practitioner. I have reviewed any new relevant radiographic and laboratory results including medications. I agree with her documentation as noted below.?I personally performed the medical decision making and much of the history and exam for this encounter. briefly, he was admitted after found on the floor by family member, treated here for rhabdomyolysis and pneumonia, he is recovering but noted that hgb has been trending down from 12 to 8, no overt gib. Had egd in that past that showed lymphocytic esophagitis and narrowing distal esophagus, colonoscopy last year no major findings. Anemia could be multifactorial, wonder if diluted after iv fluids, etc. He is agreeable to have egd and colonoscopy to assess if gi source, if negative then will need hematology consult. Assessment and Plan Assessment and plan (1) ABLA (acute blood loss anemia): Code(s): D62 - Acute posthemorrhagic anemia Status: Acute (2) Iron deficiency: Code(s): E61.1 - Iron deficiency Status: Acute (3) Lymphocytic esophagitis: Code(s): K20.80 - Other esophagitis without bleeding Status: Acute (4) Personal history of colonic polyps: Code(s): Z86.0100 - Personal history of colon polyps, unspecified Status: Acute (5) Rhabdomyolysis: Qualifiers: Rhabdomyolysis type: non-traumatic Qualified Code(s): M62.82 - Rhabdomyolysis Code(s): M62.82 - Rhabdomyolysis Status: Acute (6) Nonerosive esophageal reflux disease: Code(s): K21.9 - Gastro-esophageal reflux disease without esophagitis Status: Acute (7) Hyponatremia: Code(s): E87.1 - Hypo-osmolality and hyponatremia Status: Acute (8) Hypokalemia: Code(s): E87.6 - Hypokalemia Status: Acute (9) Acute hypoxic respiratory failure: Code(s): J96.01 - Acute respiratory failure with hypoxia Status: Acute Plan 1) ABLA/ iron deficiency: Last EGD Nov 2022 and colonoscopy Apr 2023. Patient denies signs of active GI bleeding. 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 H/H trending down since admission with Hgb 12-->8, Hct 37-->24, MCV 87, platelets 144, INR 1.2. Iron 33, TIBC 221, iron sat 15% and ferritin 48.30. Patient on BID oral iron. * FOB pending * plan for colonoscopy and EGD tomorrow to r/o GI source of blood loss * NPO after midnight * bowel prep to start this evening * Primary care team to continue monitoring H/H and transfuse as needed to keep Hgb >7 * Hold AM dose of heparin tomorrow (02/20) 2) Lymphocytic esophagitis / acute respiratory failure secondary to pneumonia: EGD 12/02/2022 showed esophageal narrowing and dilation was performed. Patient was also noted to have NERD and lymphocytic esophagitis. patient admits to occasional difficulty swallowing. Patient admitted for pneumonia, concern for aspiration pneumonia. Barium swallow pending. 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 No Hx of topical steroid use. Vital signs stable. COVID, FLU A and B were negative. Currently on minced food diet. * Start Protonix 40 mg daily * plan for EGD tomorrow, possible dilation * further recs to follow endoscopy 3) Hyponatremia/hypokalemia: Patient with chronically low sodium since 2020. Sodium 143 on admission and now 130. Potassium 3.2. * Primary care team to continue monitoring and correct Thank you very much for allowing me to share in the care of this patient. This report may have been done utilizing a voice recognition system. Attempts have been made to correct errors. However, there may be uncorrected grammatical, spelling, and recognition errors present. GI Consult Note Consult date/time: 02/20/24 09:04 Reason for consult: NATHAN HPI: This is a 73-year-old male with history of 4 vessel CABG, cholecystectomy, frequent falls, COPD, CAD, GERD, HLD, history of thyroid cancer S/P chemotherapy and radiation, HTN, hypothyroidism, lymphocytic esophagitis, history of hemorrhoidectomy, history of gastric volvulus with ventral hernia repair. Patient presented to the emergency room 02/16/2024 after being found on the floor of his house by his brother. Patient admitted for rhabdomyolysis and pneumonia. GI consulted for anemia and concerns for GI bleed. Minimal subjective information was proved by the patient as he was getting a breathing treatment and was a poor historian. He does state that it has been augustin und 3 days since his last BM. Denies any rectal bleeding, diarrhea or melena. Denies abdominal pain, nausea, vomiting, regurgitation, or appetite loss. States that sometimes his has issues with swallowing but was unable to provide any further information. Patient unable to say if he has lost any weight recently. 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 Family Hx negative for CRC or IBD. 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 Daily cigarette smoker. ENDOSCOPY HISTORY: EGD: 12/02/[address] Julian for dysphagia Findings: Non erosive reflux disease was present at the GE junction The stomach at the body, cardia and fundus was examined and was normal with no ulcers or masses The bulb and second portion of duodenum was normal with no ulcers or masses Eosinophilic esophagitis type changes with narrowing in proximal esophagus A alves bougie dilation was performed, 48 FR A few cold forceps Bx were taken from the upper third esophagus to R/O EOE Bx results: Esophagus, proximal, biopsy: - Lymphocytic esophagitis COLONOSCOPY: 04/01/[address] Julian for blood in stool Findings: A few small size internal hemorrhoids were seen in the rectum 10 year repeat colonoscopy recommended LABS AND STOOL STUDIES: Labs 02/19/2024 showed sodium 130, potassium 3.2, BUN 12, creatinine 0.50, GFR > 60. WBC 6, HGB 8, HCT 24, MCV 87, platelets 144. Total bilirubin 0.5, AST 59, ALT 17, alkaline phosphatase 53. Calcium 7.9, magnesium 2.0, albumin 2.7, INR 1.2, total CK 799, BNP 544. Total iron 33, TIBC 221, iron saturation 15%, ferritin 48.30. COVID, FLU A and B all negative. IMAGING: CT abd/pelvis w/contrast 01/18/2023 IMPRESSION: Status post sternotomy Status post cholecystectomy No evidence of appendicitis or bowel obstruction Approximately 3.5 cm infrarenal abdominal aortic aneurysm. Abdominal ultrasound 07/20/2022 Impression: 9 mm shadowing presumed calcification along the margin of the right hepatic lobe. This is of uncertain clinical significance, without definite correlate seen on prior CT scan of 07/06/2022. Dropped gallstone is a potential consideration, but there is no surrounding fluid collection. Review of Systems Review of Systems: ROS unobtainable: Yes unobtainable due to medical condition (minimal information provided by patient ) Constitutional: Constitutional: Reports fatigue and Reports weakness ENT: Reports dysphagia (at times) Cardiovascular: Cardiovascular: Denies leg edema and Denies palpitations Respiratory: Respiratory: Reports chest congestion, Reports cough, Reports dyspnea and Reports dyspnea on exertion Gastrointestinal: Gastrointestinal: Reports as per HPI Genitourinary: Comments: arguelles to suction Neurologic: Denies Abnormal speech present [facility] Past Medical History Medical History Basal cell carcinoma Closed fracture of right proximal humerus ORIF July 12, 2022 with Patiño staple device COPD (chronic obstructive pulmonary disease) Coronary artery disease Dr. Mane Dysphonia Frequent falls GERD (gastroesophageal reflux disease) High cholesterol History of thyroid cancer Treated with chemotherapy and radiation Hx of adenomatous colonic polyps Hypertension Hypothyroidism Lung cancer Status post right upper lobe pneumonectomy Lymphocytic esophagitis Nonerosive esophageal reflux disease Peripheral neuropathy Rectal bleeding Thrombocytopenia Surgical History Surgical History H/O arthroscopic knee surgery H/O right inguinal hernia repair (08/06/20) Repair of right inguinal hernia with 6 cm Parietex hernia mesh system History of bilateral carpal tunnel release History of colonoscopy History of coronary angioplasty History of esophagogastroduodenoscopy (EGD) 2006 History of hemorrhoidectomy History of left inguinal hernia repair (11/2018) With 8 cm of [address]ari[address]ex mesh dr. Stapleton History of medial meniscus repair of right knee (~2005) History of pneumonectomy (~2014) Right upper lobe due to lung cancer History of ventral hernia repair (~06/2006) Gastric volvulus with ventral hernia repair Hx of CABG (~09/2002) 4 vessel CABG Hx of cholecystectomy S/P ORIF (open reduction internal fixation) fracture Right shoulder 07/12/2022 Status post cataract extraction of both eyes with insertion of intraocular lens (~2015) Status post dilation of esophageal narrowing Family History Family History Mother MVA (motor vehicle accident) Father Gunshot wound Sibling Heart disease Other Family history of cardiovascular disease Social History Social History Social History: [facility] He lives alone. He has smoked as much as a pack of cigarettes per day since he was 20 years old. He is now down to 4-5 cigarettes a day. 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 code status full code Years smoked: 50 Smoking status: Current every day smoker Tobacco type: cigarettes Second hand tobacco smoke exposure: Yes Alcohol intake: former Drinks per week: 7 Alcohol use details: STATES LAST DRINK AUGUST 31, 1984 Substance use: never Substance use type: prescription drug Other substance usage details: hx of oxycodone for pain, currently hydrocodone for pain Do You Feel Safe in your Home?: Yes Lack of Transportation: No Lack of Food: Never True Current Housing: I Have Housing Concerned About Future Housing: No Difficulty Paying Gas/Electric Bills: No Difficulty Paying for Meds: No Currently Unemployed: No Education: Decline to Answer Difficulty w/ Childcare or Family Care: No Living arrangements: alone Occupation/Education: retired Gender identity (if verbalized by the patient): Male Sexual Orientation (if Verbalized by the Patient): Straight or Heterosexual Spiritual care concerns: No Meds Home Medications and Allergies Home Medications Medication Instructions Recorded Confirmed Type aspirin 81 mg chewable tablet 2 tablet PO DAILY 07/21/20 02/17/24 History baclofen 10 mg tablet 5 mg PO TID PRN muscle spasms 07/21/20 02/17/24 History escitalopram oxalate 20 mg tablet 20 mg PO HS 07/21/20 02/17/24 History fluticasone fur. 100 mcg-umeclid 1 inh inhalation DAILY 07/21/20 02/17/24 History 62.5 mcg-vilant 25 mcg inhalat.powder (Trelegy Ellipta) nitroglycerin 400 mcg/spray 1 spray translingual Q5M PRN Chest 07/21/20 02/17/24 History translingual Pain simvastatin 20 mg tablet 20 mg PO DAILY 07/21/20 02/17/24 History ranolazine 500 mg tablet,extended 500 mg PO Q12H 03/22/21 02/17/24 History release,12 hr albuterol sulfate 90 mcg/actuation 1 inh inhalation Q4H PRN Shortness 03/25/21 02/17/24 Rx aerosol inhaler (ProAir HFA) Of Breath Or Wheezing #0 grams alprazolam 1 mg tablet 1 mg PO TID PRN anxiety #90 tabs 02/01/23 02/17/24 Rx Allergies Allergy/AdvReac Type Severity Reaction Status Date / Time atorvastatin AdvReac Mild MADE ME Verified 03/16/23 15:52 SICK methocarbamol AdvReac Mild MADE ME Verified 03/16/23 15:52 SICK terbinafine AdvReac Mild MADE ME Verified 03/16/23 15:52 SICK Vital Signs Vital Signs - 24 hr 02/19/24 10:00 02/19/24 13:23 02/19/24 11:55 Temperature 98.1 F Pulse Rate 61 60 Respiratory Rate 16 Blood Pressure 102/60 Pulse Oximetry 97 Oxygen Delivery Room Air Oxygen Flow Rate Fraction of Inspired Oxygen 02/19/24 10:00 02/19/24 12:00 02/19/24 14:16 Temperature Pulse Rate 59 L Respiratory Rate Blood Pressure Pulse Oximetry 95 Oxygen Delivery Room Air Room Air Oxygen Flow Rate Fraction of Inspired Oxygen 21 02/19/24 14:16 02/19/24 14:26 02/19/24 16:00 Temperature Pulse Rate 61 62 66 Respiratory Rate 20 20 Blood Pressure Pulse Oximetry Oxygen Delivery Oxygen Flow Rate Fraction of Inspired Oxygen 02/19/24 16:00 02/19/24 19:59 02/19/24 20:57 Temperature 98.3 F 98.5 F Pulse Rate 63 69 Respiratory Rate 20 18 Blood Pressure 122/60 142/77 H Pulse Oximetry 95 90 90 Oxygen Delivery Room Air Oxygen Flow Rate Fraction of Inspired Oxygen 02/19/24 20:57 02/19/24 21:08 02/19/24 20:00 Temperature Pulse Rate 64 66 66 Respiratory Rate 20 18 Blood Pressure Pulse Oximetry Oxygen Delivery Oxygen Flow Rate Fraction of Inspired Oxygen 02/20/24 00:00 02/20/24 00:00 02/20/24 02:56 Temperature 97.9 F Pulse Rate 62 63 64 Respiratory Rate 18 18 Blood Pressure 126/81 Pulse Oximetry 92 Oxygen Delivery Oxygen Flow Rate Fraction of Inspired Oxygen 02/20/24 03:04 02/20/24 04:00 02/20/24 04:00 Temperature 98.0 F Pulse Rate 66 53 L 60 Respiratory Rate 18 18 Blood Pressure 139/72 Pulse Oximetry 93 Oxygen Delivery Oxygen Flow Rate Fraction of Inspired Oxygen 02/20/24 06:07 02/20/24 08:00 02/20/24 08:43 Temperature 97.4 F L 97.9 F Pulse Rate 60 57 L Respiratory Rate 18 18 Blood Pressure 163/79 H 188/87 H Pulse Oximetry 98 93 95 Oxygen Delivery Nasal Cannula Oxygen Flow Rate 1 Fraction of Inspired Oxygen 02/20/24 08:43 02/20/24 08:56 Temperature Pulse Rate 63 66 Respiratory Rate 16 16 Blood Pressure Pulse Oximetry Oxygen Delivery Oxygen Flow Rate Fraction of Inspired Oxygen Exam Const: General: comfortable and no acute distress HENMT: Mouth: Yes moist mucous membranes Eyes: General: appearance normal, both eyes and all related structures Sclera: sclerae normal Pupils: Equal, round and reactive pupils present Neck: Neck: supple Resp: Auscultation: crackles Other: was receiving breathing treatment at time of exam Cardio: Rate: regular rate Rhythm: regular rhythm GI: Inspection: non-distended GI Palp: Yes Soft to palpation, No Firmness to palpation present (GI), No Tenderness to palpation present (GI) and No Guarding due to palpation present (GI) Auscultation: normal bowel sounds : General: Yes bladder normal to palpation Urinary Catheter: Urinary Catheter: patent and draining Skin: Lesions: lesion noted Wounds: wounds noted Other: bilateral lower arms wrapped with gauze Neuro: General: No gait normal (recent falls, patient was in bed ) Speech: No normal speech Extrem: General: normal to inspection Psych: Mental Status: mental status grossly abnormal (slow to respond to questions) Results Labs 02/19/24 04:33 02/19/24 04:33 Labs: Short CBC 02/19/24 Range/Units 04:33 WBC 5.8 (4.5-10.0) K/mm3 Hgb 7.8 L (14.0-18.0) g/dL Hct 23.8 L (42.0-52.0) % Plt Count 144 L (150-375) k/mm3 BMP 02/19/24 04:33 Sodium 130 L Potassium 3.2 L Chloride 98 Carbon Dioxide 31 H BUN 12 D Creatinine 0.50 L Glucose 87 Calcium 7.9 L
[2024-02-20] MEDS: RANOLAZINE 500 MG TAB.ER.12H PO ×2 (09:07→20:06)
[2024-02-20] MEDS: SIMVASTATIN 20 MG TABLET PO (09:07)
[2024-02-20] MEDS: FERROUS SULFATE 325 MG TABLET DR PO ×2 (09:07→17:23)
[2024-02-20] MEDS: polyethylene glycoL 3350 17 GM POWD.PACK PO (09:07)
[2024-02-20] MEDS: HEPARIN SODIUM 5,000 UNITS/ML VIAL 5000 UNITS SUB-Q ×2 (09:08→20:06)
[2024-02-20 09:20] LABS: Basophils Percent Auto 0.4 % (0.2-1.2); Eosinophils Absolute Auto 0.2 K/mm3 (0-0.3); Eosinophils Percent Auto 2.6 % (0-4.4); Hematocrit 29.1 % (42.0-52.0); Hemoglobin 9.3 g/dL (14.0-18.0); Immature Granulocyte Absolute 0.07 K/mm3 (0.00-0.031); Immature Granulocyte Percent A 1.2 % (0-0.5); Lymphocytes Absolute Auto 0.75 K/mm3 (0.9-3.2); Lymphocytes Percent Auto 13.2 % (18.3-44.2); Mean Corpuscular Hemoglobin 27.6 pg (26-34); Mean Corpuscular Volume 86.4 fl (80-100); Mean Platelet Volume 9.1 fl (7.4-10.4); Monocytes Absolute Auto 0.5 K/mm3 (0.1-0.6); Monocytes Percent Auto 9.5 % (2.6-8.5); Neutrophils Absolute Auto 4.2 K/mm3 (1.3-6.7); Neutrophils Percent Auto 73.1 % (45.5-73.1); Platelet Count Result 160 k/mm3 (150-375); Red Blood Count 3.37 M/mm3 (4.6-6.20); Red Cell Distribution Width 17.7 % (11.5-14.5); White Blood Count 5.7 K/mm3 (4.5-10.0)
[2024-02-20 09:38] LABS: Anion Gap 2 mmol/L (4-12); Blood Urea Nitrogen 7 mg/dL (9-20); Calcium 8.1 mg/dL (8.4-10.2); Carbon Dioxide 35 mmol/L (22-30); Chloride 94 mmol/L (98-107); Estimated CRCL calculation 113 ml/min; Estimated Glomerular Filt Rate > 60; Glucose 87 mg/dL (65-110); Potassium 3.4 mmol/L (3.4-5.0); Sodium 131 mmol/L (137-145)
[2024-02-20] MEDS: PANTOPRAZOLE 40 MG TABLET PO (10:00)
--- NOTE | 2024-02-20 15:00 | PCSTNOTE ---
Please refer to the Bedside Swallow Evaluation in the EMR. Please note, silent aspiration cannot be ruled out at bedside.
[2024-02-20] MEDS: BISACODYL 5 MG TABLET EC 20 MG PO (17:23)
[2024-02-20] MEDS: polyethylene glycoL 3350 238 GM BOTTLE PO (17:23)
[2024-02-20] MEDS: ESCITALOPRAM OXALATE 10 MG TABLET 20 MG PO (20:06)
[2024-02-20] MEDS: AMOXICILLIN/CLAVULANATE K 875-125 MG TAB 1 TABLET PO (20:06)
[2024-02-20] MEDS: AZITHROMYCIN 250 MG TABLET 500 MG PO (20:06)
[2024-02-20] MEDS: HYDROcodone/acetaminophen (*CRX) 5-325 MG TABLET 1 TAB PO (20:10)
[2024-02-21] VITALS (22 sets, daily range): BP systolic 107–146; BP diastolic 57–92; PULSE 60–76; RESP 14–24; TEMP 35.7–36.7; O2SAT 90–100
[2024-02-21] MEDS: MAGNESIUM CITRATE 300 ML BTL PO ×2 (01:12→06:40)
[2024-02-21] MEDS: IPRATROPIUM 0.5 MG/ALBUTEROL SULFATE 2.5 MG AMPUL.NEB 3 ML INHALATION ×4 (02:06→19:32)
[2024-02-21] MEDS: FUROSEMIDE INJ 40 MG/4 ML VIAL 20 MG IV PUSH (05:14)
[2024-02-21] MEDS: FLUTICASONE/UMECLIDIN/VILANTER 100-62.5-25 MCG ELLIPTA 1 PUFF INHALATION (07:51)
--- NOTE | 2024-02-21 08:35 | PCPTNOTE ---
Attempted to see patient for PT, however patient refused. Patient very anxious and reported he did not want to work with PT at this time. Encouraged patient for participation and gave reassurance, patient continued to refuse. RN aware.
[2024-02-21 09:07] LABS: Basophils Percent Auto 0.2 % (0.2-1.2); Eosinophils Absolute Auto 0.1 K/mm3 (0-0.3); Eosinophils Percent Auto 0.9 % (0-4.4); Hematocrit 32.3 % (42.0-52.0); Hemoglobin 10.6 g/dL (14.0-18.0); Immature Granulocyte Percent A 1.2 % (0-0.5); Lymphocytes Absolute Auto 0.59 K/mm3 (0.9-3.2); Lymphocytes Percent Auto 7.4 % (18.3-44.2); Mean Corpuscular HGB Conc 32.8 g/dl (32-36); Mean Corpuscular Hemoglobin 27.8 pg (26-34); Mean Corpuscular Volume 84.8 fl (80-100); Mean Platelet Volume 9.2 fl (7.4-10.4); Monocytes Absolute Auto 0.6 K/mm3 (0.1-0.6); Monocytes Percent Auto 7.9 % (2.6-8.5); Neutrophils Absolute Auto 6.6 K/mm3 (1.3-6.7); Neutrophils Percent Auto 82.4 % (45.5-73.1); Platelet Count Result 214 k/mm3 (150-375); Red Blood Count 3.81 M/mm3 (4.6-6.20); Red Cell Distribution Width 17.4 % (11.5-14.5)
[2024-02-21 09:39] LABS: Anion Gap 6 mmol/L (4-12); Blood Urea Nitrogen 4 mg/dL (9-20); Calcium 8.6 mg/dL (8.4-10.2); Carbon Dioxide 35 mmol/L (22-30); Chloride 91 mmol/L (98-107); Estimated CRCL calculation 96 ml/min; Estimated Glomerular Filt Rate > 60; Glucose 102 mg/dL (65-110); Sodium 132 mmol/L (137-145)
--- NOTE | 2024-02-21 10:11 | PCOTNOTE ---
The patient treatment was not able to be completed. Patient going to leave for EGD and colonoscopy. Will plan to continue treatment per plan of care.
[2024-02-21] MEDS: PANTOPRAZOLE SODIUM IV 40 MG VIAL IV PUSH (10:29)
[2024-02-21] MEDS: LACTATED RINGERS 1,000 ML 150 ML IV CONT (11:02)
--- NOTE | 2024-02-21 11:18 | P.PNAN_ITS ---
Anes - Initial Pre Proc Eval Procedure: Operation Date: 02/21/24 11:00 Proposed Procedures p Esophagogastroduodenoscopy & Colonoscopy - Saurabh Ga MD Date/Time: 02/21/24 11:18 Surgeon: Andrea High MD Pre Op Diagnosis: Rhabdomyolsis Patient Data Age: 73 Gender: M Height: 1.78 m Weight: 71 kg Last Vital Signs Temp 36.5 C 02/21/24 10:38 Pulse 65 02/21/24 10:38 Resp 14 02/21/24 10:38 BP 124/72 02/21/24 10:38 Pulse Ox 97 02/21/24 10:38 O2 Del Method Room Air 02/21/24 10:38 O2 Flow Rate 2 02/21/24 07:50 FiO2 28 02/21/24 07:50 Allergies Allergy/AdvReac Type Severity Reaction Status Date / Time atorvastatin AdvReac Mild MADE ME Verified 02/21/24 10:52 SICK methocarbamol AdvReac Mild MADE ME Verified 02/21/24 10:52 SICK terbinafine AdvReac Mild MADE ME Verified 02/21/24 10:52 SICK Home Medications Medication Instructions Recorded Confirmed Type aspirin 81 mg chewable tablet 2 tablet PO DAILY 07/21/20 02/17/24 History baclofen 10 mg tablet 5 mg PO TID PRN muscle spasms 07/21/20 02/17/24 History escitalopram oxalate 20 mg tablet 20 mg PO HS 07/21/20 02/17/24 History fluticasone fur. 100 mcg-umeclid 1 inh inhalation DAILY 07/21/20 02/17/24 History 62.5 mcg-vilant 25 mcg inhalat.powder (Trelegy Ellipta) nitroglycerin 400 mcg/spray 1 spray translingual Q5M PRN Chest 07/21/20 02/17/24 History translingual Pain simvastatin 20 mg tablet 20 mg PO DAILY 07/21/20 02/17/24 History ranolazine 500 mg tablet,extended 500 mg PO Q12H 03/22/21 02/17/24 History release,12 hr albuterol sulfate 90 mcg/actuation 1 inh inhalation Q4H PRN Shortness 03/25/21 02/17/24 Rx aerosol inhaler (ProAir HFA) Of Breath Or Wheezing #0 grams alprazolam 1 mg tablet 1 mg PO TID PRN anxiety #90 tabs 02/01/23 02/17/24 Rx Laboratory Tests 02/21/24 08:55 WBC 8.0 K/mm3 (4.5-10.0) RBC 3.81 L M/mm3 (4.6-6.20) Hgb 10.6 L g/dL (14.0-18.0) Hct 32.3 L % (42.0-52.0) MCV 84.8 fl (80-100) MCH 27.8 pg (26-34) MCHC 32.8 g/dl (32-36) RDW 17.4 H % (11.5-14.5) Plt Count 214 k/mm3 (150-375) MPV 9.2 fl (7.4-10.4) Immature Gran % (Auto) 1.2 H % (0-0.5) Neut % (Auto) 82.4 H % (45.5-73.1) Lymph % (Auto) 7.4 L % (18.3-44.2) B[place] % (Auto) 7.9 % (2.6-8.5) Eos % (Auto) 0.9 % (0-4.4) Baso % (Auto) 0.2 % (0.2-1.2) Lymph # (Auto) 0.59 L K/mm3 (0.9-3.2) Barrow # (Auto) 0.6 K/mm3 (0.1-0.6) Eos # (Auto) 0.1 K/mm3 (0-0.3) Baso # (Auto) 0.0 K/mm3 (0.0-0.1) Abs Immat Gran (auto) 0.10 H K/mm3 (0.00-0.031) Absolute Neuts (auto) 6.6 K/mm3 (1.3-6.7) Absolute Nucleated RBC 0.000 K/mm3 (0.0-0.012) Nucleated RBC % 0.0 % (0.0-0.2) Sodium 132 L mmol/L (137-145) Potassium 3.0 L mmol/L (3.4-5.0) Chloride 91 L mmol/L (98-107) Carbon Dioxide 35 H mmol/L (22-30) Anion Gap 6 mmol/L (4-12) BUN 4 L mg/dL (9-20) Creatinine 0.60 L mg/dL (0.7-1.3) Estim Creat Clear Calc 96 ml/min Estimated GFR > 60 (59 - ) Glucose 102 mg/dL (65-110) Calcium 8.6 mg/dL (8.4-10.2) Patient hx anesthesia problems: none Family hx anesthesia problems: none Results Review: All pre-operative results and documents have been reviewed as part of the pre- operative evaluation. [facility]LY [facility] Past Medical History Medical History Basal cell carcinoma Closed fracture of right proximal humerus ORIF July 12, 2022 with Patiño staple device COPD (chronic obstructive pulmonary disease) Coronary artery disease Dr. Mane Dysphonia Frequent falls GERD (gastroesophageal reflux disease) High cholesterol History of thyroid cancer Treated with chemotherapy and radiation Hx of adenomatous colonic polyps Hypertension Hypothyroidism Lung cancer Status post right upper lobe pneumonectomy Lymphocytic esophagitis Nonerosive esophageal reflux disease Peripheral neuropathy Rectal bleeding Thrombocytopenia Surgical History Surgical History H/O arthroscopic knee surgery H/O right inguinal hernia repair (08/06/20) Repair of right inguinal hernia with 6 cm Parietex hernia mesh system History of bilateral carpal tunnel release History of colonoscopy History of coronary angioplasty History of esophagogastroduodenoscopy (EGD) 2006 History of hemorrhoidectomy History of left inguinal hernia repair (11/2018) With 8 cm of [address]etex mesh dr. Staplteon History of medial meniscus repair of right knee (~2005) History of pneumonectomy (~2014) Right upper lobe due to lung cancer History of ventral hernia repair (~06/2006) Gastric volvulus with ventral hernia repair Hx of CABG (~09/2002) 4 vessel CABG Hx of cholecystectomy S/P ORIF (open reduction internal fixation) fracture Right shoulder 07/12/2022 Status post cataract extraction of both eyes with insertion of intraocular lens (~2015) Status post dilation of esophageal narrowing Family History Family History Mother MVA (motor vehicle accident) Father Gunshot wound Sibling Heart disease Other Family history of cardiovascular disease Social History Social History Social History: He is currently at the [facility] facility. He lives alone. He has smoked as much as a pack of cigarettes per day since he was 20 years old. He is now down to 4-5 cigarettes a day. 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 code status full code Years smoked: 50 Smoking status: Current every day smoker Tobacco type: cigarettes Second hand tobacco smoke exposure: Yes Alcohol intake: former Drinks per week: 7 Alcohol use details: STATES LAST DRINK AUGUST 31, 1984 Substance use: never Substance use type: prescription drug Other substance usage details: hx of oxycodone for pain, currently hydrocodone for pain Do You Feel Safe in your Home?: Yes Lack of Transportation: No Lack of Food: Never True Current Housing: I Have Housing Concerned About Future Housing: No Difficulty Paying Gas/Electric Bills: No Difficulty Paying for Meds: No Currently Unemployed: No Education: Decline to Answer Difficulty w/ Childcare or Family Care: No Living arrangements: alone Occupation/Education: retired Gender identity (if verbalized by the patient): Male Sexual Orientation (if Verbalized by the Patient): Straight or Heterosexual Spiritual care concerns: No Anes - Eval Final PreProcedure Day of Procedure 02/21/24 11:18 Patient weight: normal Heart: regular rate and rhythm Lungs: clear to auscultation Airway: Mallampati scale class III and special considerations (radiation to neck) poor opening Neurological: alert and oriented Last oral intake: >/= 8 hours ASA classification: IV Emergent: no Anesthetic plan: proceed Anesthesia type and monitoring: general GIVS and standard monitoring Results Review: All pre-operative results and documents have been reviewed as part of the pre- operative evaluation. Informed Consent: The patient's anesthetic plan and its attendant risks and benefits were discussed with the patient/family/POA. Questions were solicited and answers provided to the satisfaction of the patient/family/POA.
--- NOTE | 2024-02-21 11:36 | PM.IMHP ---
H&P: HPI History of Present Illness Date/Time: 02/21/24 11:36 Chief Complaint: Dysphagia and sudden drop of hemoglobin. Narrative: This patient has a history of lymphocytic esophagitis, status post esophageal dilatation in the past. In addition, patient has dropped his hemoglobin from 12 to 8 in the absence of overt GI bleeding. He is currently admitted for pneumonia and rhabdomyolysis and he is now here for EGD and colonoscopy. Review of Systems Review of Systems: All systems reviewed & are unremarkable except as noted in HPI and below PMFSH Past Medical History Medical History Basal cell carcinoma Closed fracture of right proximal humerus ORIF July 12, 2022 with Patiño staple device COPD (chronic obstructive pulmonary disease) Coronary artery disease Dr. Mane Dysphonia Frequent falls GERD (gastroesophageal reflux disease) High cholesterol History of thyroid cancer Treated with chemotherapy and radiation Hx of adenomatous colonic polyps Hypertension Hypothyroidism Lung cancer Status post right upper lobe pneumonectomy Lymphocytic esophagitis Nonerosive esophageal reflux disease Peripheral neuropathy Rectal bleeding Thrombocytopenia Surgical History Surgical History H/O arthroscopic knee surgery H/O right inguinal hernia repair (08/06/20) Repair of right inguinal hernia with 6 cm Parietex hernia mesh system History of bilateral carpal tunnel release History of colonoscopy History of coronary angioplasty History of esophagogastroduodenoscopy (EGD) 2006 History of hemorrhoidectomy History of left inguinal hernia repair (11/2018) With 8 [address] mesh [address] Stapleton History of medial meniscus repair of right knee (~2005) History of pneumonectomy (~2014) Right upper lobe due to lung cancer History of ventral hernia repair (~06/2006) Gastric volvulus with ventral hernia repair Hx of CABG (~09/2002) 4 vessel CABG Hx of cholecystectomy S/P ORIF (open reduction internal fixation) fracture Right shoulder 07/12/2022 Status post cataract extraction of both eyes with insertion of intraocular lens (~2015) Status post dilation of esophageal narrowing Family History Family History Mother MVA (motor vehicle accident) Father Gunshot wound Sibling Heart disease Other Family history of cardiovascular disease Social History Social History Social History: He is currently at the [facility] facility. He lives alone. He has smoked as much as a pack of cigarettes per day since he was 20 years old. He is now down to 4-5 cigarettes a day. 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 code status full code Years smoked: 50 Smoking status: Current every day smoker Tobacco type: cigarettes Second hand tobacco smoke exposure: Yes Alcohol intake: former Drinks per week: 7 Alcohol use details: STATES LAST DRINK AUGUST 31, 1984 Substance use: never Substance use type: prescription drug Other substance usage details: hx of oxycodone for pain, currently hydrocodone for pain Do You Feel Safe in your Home?: Yes Lack of Transportation: No Lack of Food: Never True Current Housing: I Have Housing Concerned About Future Housing: No Difficulty Paying Gas/Electric Bills: No Difficulty Paying for Meds: No Currently Unemployed: No Education: Decline to Answer Difficulty w/ Childcare or Family Care: No Living arrangements: alone Occupation/Education: retired Gender identity (if verbalized by the patient): Male Sexual Orientation (if Verbalized by the Patient): Straight or Heterosexual Spiritual care concerns: No Meds Home Medications and Allergies Home Medications Medication Instructions Recorded Confirmed Type aspirin 81 mg chewable tablet 2 tablet PO DAILY 07/21/20 02/17/24 History baclofen 10 mg tablet 5 mg PO TID PRN muscle spasms 07/21/20 02/17/24 History escitalopram oxalate 20 mg tablet 20 mg PO HS 07/21/20 02/17/24 History fluticasone fur. 100 mcg-umeclid 1 inh inhalation DAILY 07/21/20 02/17/24 History 62.5 mcg-vilant 25 mcg inhalat.powder (Trelegy Ellipta) nitroglycerin 400 mcg/spray 1 spray translingual Q5M PRN Chest 07/21/20 02/17/24 History translingual Pain simvastatin 20 mg tablet 20 mg PO DAILY 07/21/20 02/17/24 History ranolazine 500 mg tablet,extended 500 mg PO Q12H 03/22/21 02/17/24 History release,12 hr albuterol sulfate 90 mcg/actuation 1 inh inhalation Q4H PRN Shortness 03/25/21 02/17/24 Rx aerosol inhaler (ProAir HFA) Of Breath Or Wheezing #0 grams alprazolam 1 mg tablet 1 mg PO TID PRN anxiety #90 tabs 02/01/23 02/17/24 Rx Allergies Allergy/AdvReac Type Severity Reaction Status Date / Time atorvastatin AdvReac Mild MADE ME Verified 02/21/24 10:52 SICK methocarbamol AdvReac Mild MADE ME Verified 02/21/24 10:52 SICK terbinafine AdvReac Mild MADE ME Verified 02/21/24 10:52 SICK Vital Signs Vital Signs - 24 hr 02/20/24 12:00 02/20/24 13:30 02/20/24 13:30 Temperature 97.4 F L Pulse Rate 64 58 L Respiratory Rate 20 20 Blood Pressure 118/72 Pulse Oximetry 94 96 Oxygen Delivery Nasal Cannula Oxygen Flow Rate 1 Fraction of Inspired Oxygen 02/20/24 13:37 02/20/24 12:00 02/20/24 16:00 Temperature 97.2 F L Pulse Rate 67 67 60 Respiratory Rate 20 20 Blood Pressure 152/76 H Pulse Oximetry 98 Oxygen Delivery Oxygen Flow Rate Fraction of Inspired Oxygen 02/20/24 16:00 02/20/24 19:17 02/20/24 19:17 Temperature Pulse Rate 56 L 65 Respiratory Rate 16 Blood Pressure Pulse Oximetry 96 Oxygen Delivery Room Air Oxygen Flow Rate Fraction of Inspired Oxygen 02/20/24 19:43 02/20/24 20:00 02/20/24 20:00 Temperature 97.2 F L Pulse Rate 65 65 Respiratory Rate 18 Blood Pressure 148/67 H Pulse Oximetry 97 Oxygen Delivery Room Air Oxygen Flow Rate Fraction of Inspired Oxygen 02/21/24 00:00 02/21/24 00:00 02/21/24 02:07 Temperature 97.7 F Pulse Rate 60 61 68 Respiratory Rate 18 22 H Blood Pressure 146/85 H Pulse Oximetry 93 Oxygen Delivery Oxygen Flow Rate Fraction of Inspired Oxygen 02/20/24 19:23 02/21/24 03:33 02/21/24 04:57 Temperature 97.8 F Pulse Rate 70 65 61 Respiratory Rate 16 18 20 Blood Pressure 140/92 H 145/79 H Pulse Oximetry 91 97 Oxygen Delivery Oxygen Flow Rate Fraction of Inspired Oxygen 02/21/24 04:00 02/21/24 05:00 02/21/24 07:50 Temperature Pulse Rate 64 Respiratory Rate Blood Pressure Pulse Oximetry 92 95 Oxygen Delivery Nasal Cannula Nasal Cannula Oxygen Flow Rate 2 2 Fraction of Inspired Oxygen 28 02/21/24 07:50 02/21/24 07:59 02/21/24 10:38 Temperature 97.7 F Pulse Rate 65 63 65 Respiratory Rate 20 20 14 Blood Pressure 124/72 Pulse Oximetry 97 Oxygen Delivery Room Air Oxygen Flow Rate Fraction of Inspired Oxygen H&P: Results Labs Labs: Short CBC 02/21/24 Range/Units 08:55 WBC 8.0 (4.5-10.0) K/mm3 Hgb 10.6 L (14.0-18.0) g/dL Hct 32.3 L (42.0-52.0) % Plt Count 214 (150-375) k/mm3 [facility] 02/21/24 08:55 Sodium 132 L Potassium 3.0 L Chloride 91 L Carbon Dioxide 35 H BUN 4 L Creatinine 0.60 L Glucose 102 Calcium 8.6 Assessment and Plan Assessment and plan (1) Personal history of colonic polyps: Code(s): Z86.0100 - Personal history of colon polyps, unspecified Status: Acute (2) Lymphocytic esophagitis: Code(s): K20.80 - Other esophagitis without bleeding Status: Acute Assessment and Plan: The patient is deemed a good candidate for the procedures. Consent signed. Will proceed.
--- NOTE | 2024-02-21 11:40 | PCOTNOTE ---
Patient out of the room for an EGD. Unavailable
[2024-02-21] MEDS: BENZOCAINE (*SP) 60 ML SPRAY CAN (HURRICAINE) 1 SPRAY MUCOUS MEM (11:47)
--- NOTE | 2024-02-21 12:02 | SUR.OPER ---
EGD: [id number] COLON:
--- NOTE | 2024-02-21 12:03 | SUR.OPER ---
EGD: [id number] COLON: [id number]
[2024-02-21] MEDS: AMOXICILLIN/CLAVULANATE K 875-125 MG TAB 1 TABLET PO (13:43)
--- NOTE | 2024-02-21 14:15 | P.PNGI_ITS ---
Progress Note: A&P Assessment and Plan (1) Candidiasis of esophagus: Code(s): B37.81 - Candidal esophagitis Status: Acute Assessment and Plan: Fluconazole 50 mg b.i.d. for 14 days ordered. Normally the dose is 100 mg biD , however there were significant interactions with some other medications the patient is taking, therefore the dose was reduced 50%. Still recommend observing for EKG abnormalities. Plan There are no findings explaining significant and rapid drop in hematocrit based on these findings. Recommend consulting Hematology for alternative causes. Time Spent With Patient Time with patient: less than 15 minutes Subjective Date/time seen: 02/21/24 14:15 Interval history: patient had an EGD today showing massive candidiasis involving from vocal cords throughout the esophagus. There was also bile induced gastritis and some erosions, but no findings explaining significant drop in hemoglobin. Colonoscopy prep was suboptimal, could not assess more than 50% of the mucosa due to retained stools. Exam Const: Other: cachectic, pale Resp: Effort & Inspection: normal respiratory effort and able to speak in complete sentences Auscultation: clear to auscultation bilaterally Cardio: Rate: regular rate Rhythm: regular rhythm GI: Inspection: normal to inspection GI Palp: No No hepatosplenomegaly present Auscultation: normal bowel sounds Rectal Exam: deferred Skin: General skin exam: normal color Psych: Appearance: grossly normal Mental Status: mental status grossly normal Objective Data Vital Signs Vital Signs: Vital Signs - 24 hr 02/20/24 16:00 02/20/24 16:00 02/20/24 19:17 Temperature 97.2 F L Pulse Rate 60 56 L Respiratory Rate 20 Blood Pressure 152/76 H Pulse Oximetry 98 96 Oxygen Delivery Room Air Oxygen Flow Rate Fraction of Inspired Oxygen 02/20/24 19:17 02/20/24 19:43 02/20/24 20:00 Temperature 97.2 F L Pulse Rate 65 65 Respiratory Rate 16 18 Blood Pressure 148/67 H Pulse Oximetry 97 Oxygen Delivery Room Air Oxygen Flow Rate Fraction of Inspired Oxygen 02/20/24 20:00 02/21/24 00:00 02/21/24 00:00 Temperature 97.7 F Pulse Rate 65 60 61 Respiratory Rate 18 Blood Pressure 146/85 H Pulse Oximetry 93 Oxygen Delivery Oxygen Flow Rate Fraction of Inspired Oxygen 02/21/24 02:07 02/20/24 19:23 02/21/24 03:33 Temperature 97.8 F Pulse Rate 68 70 65 Respiratory Rate 22 H 16 18 Blood Pressure 140/92 H Pulse Oximetry 91 Oxygen Delivery Oxygen Flow Rate Fraction of Inspired Oxygen 02/21/24 04:57 02/21/24 04:00 02/21/24 05:00 Temperature Pulse Rate 61 64 Respiratory Rate 20 Blood Pressure 145/79 H Pulse Oximetry 97 92 Oxygen Delivery Nasal Cannula Oxygen Flow Rate 2 Fraction of Inspired Oxygen 02/21/24 07:50 02/21/24 07:50 02/21/24 07:59 Temperature Pulse Rate 65 63 Respiratory Rate 20 20 Blood Pressure Pulse Oximetry 95 Oxygen Delivery Nasal Cannula Oxygen Flow Rate 2 Fraction of Inspired Oxygen 28 02/21/24 10:38 02/21/24 12:30 02/21/24 12:40 Temperature 97.7 F Pulse Rate 65 75 76 Respiratory Rate 14 23 H 24 H Blood Pressure 124/72 115/75 119/57 L Pulse Oximetry 97 93 92 Oxygen Delivery Room Air Nasal Cannula Nasal Cannula Oxygen Flow Rate 4 4 Fraction of Inspired Oxygen 02/21/24 12:50 02/21/24 13:26 02/21/24 13:34 Temperature Pulse Rate 72 62 65 Respiratory Rate 15 18 18 Blood Pressure 107/74 Pulse Oximetry 100 Oxygen Delivery Nasal Cannula Oxygen Flow Rate 4 Fraction of Inspired Oxygen Intake/Output Intake/Output: Intake & Output 02/18/24 02/19/24 02/20/24 02/21/24 23:59 23:59 23:59 23:59 Intake Total 3790 1770 592 207.5 Output Total 633 833 5590 2000 Balance 2940 1410 -1328 1792.5 Meds/Results Medications: Active Medications Generic Name Dose Route Start Last Admin Trade Name Freq PRN Reason Stop Dose Admin Acetaminophen 650 mg 02/16/24 21:45 02/17/24 22:05 Acetaminophen 325 Mg Tablet PO 650 mg Q4H PRN Administration Mild Pain (1-3) or Fever Hydrocodone Bitart/Acetaminophen 1 tab 02/16/24 21:45 02/20/24 20:10 Hydrocodone/Acetaminophen (*Crx) 5-325 Mg Tablet PO 1 tab Q4H PRN Administration Pain Rated 4-6 Albuterol 1 puff 02/21/24 12:52 Albuterol Sulfate (*Sp) Aerosol 1 Puff INHALATION Q4HRT PRN Shortness Of Breath Or Wheezing Albuterol/Ipratropium 3 ml 02/17/24 02:00 02/21/24 13:26 Ipratropium 0.5 Mg/Albuterol Sulfate 2.5 Mg Ampul.Neb 3 Ml INHALATION 3 ml Q6HRT CARYL Administration Alprazolam 1 mg 02/17/24 10:34 02/17/24 22:06 Alprazolam (*Crx) 0.5 Mg Tablet PO 1 mg TID PRN Administration anxiety Aspirin 162 mg 02/22/24 09:00 Aspirin 81 Mg Chewable Tablet PO DAILY CARYL Baclofen 5 mg 02/21/24 12:52 Baclofen 5 Mg Tablet PO TID PRN muscle spasms Escitalopram Oxalate 20 mg 02/17/24 21:00 02/20/24 20:06 Escitalopram Oxalate 10 Mg Tablet PO 20 mg HS CARYL Administration Ferrous Sulfate 325 mg 02/19/24 09:25 02/21/24 09:51 Ferrous Sulfate [address] PO Not Given BID CARYL Fluticasone/Umeclidinium/Vilanterol 1 puff 02/17/24 10:40 02/21/24 07:51 Fluticasone/Umeclidin/Vilanter 100-62.5-25 Mcg Ellipta INHALATION 1 puff DAILYRT CARYL Administration Heparin Sodium (Porcine) 5,000 units 02/17/24 21:00 02/21/24 08:31 Heparin Sodium 5,000 Units/Ml Vial SUB-Q Not Given Q12HR CARYL Nitroglycerin 1 spray 02/21/24 12:52 Nitroglycerin 0.4 Mg/Dora Oral Btl (*Bkc) TRANSLINGU Q5M PRN Chest Pain Ondansetron HCl 4 mg 02/16/24 21:45 Ondansetron Inj 4 Mg/2 Ml Vial IV PUSH Q4H PRN Nausea Pantoprazole Sodium 40 mg 02/21/24 09:00 02/21/24 10:29 Pantoprazole Sodium Iv 40 Mg Vial IV PUSH 40 mg QAM CARYL Administration Polyethylene Glycol 17 gm 02/20/24 09:00 02/21/24 08:33 Polyethylene Glycol 3350 17 Gm Powd.Pack PO Not Given QAM CARYL Ranolazine 500 mg 02/17/24 10:40 02/21/24 09:49 Ranolazine 500 Mg Tab.Er.12h PO Not Given Q12HR CARYL Simvastatin 20 mg 02/17/24 10:40 02/21/24 09:49 Simvastatin 20 Mg Tablet PO Not Given DAILY [facility] Radiology Results: ITS Impressions Head CT 02/16/24 19:47 IMPRESSION: 1. Moderate nonspecific cerebral white matter disease, which likely represents chronic small vessel ischemic disease. Elbow X-Ray 02/16/24 19:58 IMPRESSION: 1. No fracture. Wrist X-Ray 02/16/24 19:59 IMPRESSION: 1. Severe osteoarthritis of first carpometacarpal joint. Chest CT 02/17/24 17:54 IMPRESSION: 1. Ascending aorta measures 4.7 cm. 2. Pneumonia in the left lower lobe. Minimal pneumonic changes in the left upper and right lower lobes posteriorly. Venous Doppler Study 02/17/24 18:24 IMPRESSION: Negative bilateral lower extremity venous US. No deep vein thrombosis. Modified Barium Swallow 02/20/24 15:09 IMPRESSION: Pharyngeal dysphagia with small amount of transient laryngeal penetration without aspiration with thin liquids. Please correlate with speech pathologist findings and specific feeding recommendations. Chest X-Ray 02/21/24 06:14 IMPRESSION: 1. Stable airspace opacities in left mid and lower lung zones and right lower lung zone, consistent with pneumonia. 2. Emphysema. Labs Labs: Laboratory Results - last 24 hr 02/21/24 08:55 WBC 8.0 RBC 3.81 L Hgb 10.6 L Hct 32.3 L MCV 84.8 MCH 27.8 MCHC 32.8 RDW 17.4 H Plt Count 214 MPV 9.2 Immature Gran % (Auto) 1.2 H Neut % (Auto) 82.4 H Lymph % (Auto) 7.4 L [place] % (Auto) 7.9 Eos % (Auto) 0.9 Baso % (Auto) 0.2 Lymph # (Auto) 0.59 L [place] # (Auto) 0.6 Eos # (Auto) 0.1 Baso # (Auto) 0.0 Abs Immat Gran (auto) 0.10 H Absolute Neuts (auto) 6.6 Absolute Nucleated RBC 0.000 Nucleated RBC % 0.0 Sodium 132 L Potassium 3.0 L Chloride 91 L Carbon Dioxide 35 H Anion Gap 6 BUN 4 L Creatinine 0.60 L Estim Creat Clear Calc 96 Estimated GFR > 60 Glucose 102 Calcium 8.6
--- NOTE | 2024-02-21 16:18 | PM.IMPN ---
Progress Note: A&P Assessment and Plan (1) Rhabdomyolysis: Qualifiers: Rhabdomyolysis type: non-traumatic Qualified Code(s): M62.82 - Rhabdomyolysis Code(s): M62.82 - Rhabdomyolysis Status: Acute (2) Acute hypoxic respiratory failure: Code(s): J96.01 - Acute respiratory failure with hypoxia Status: Acute (3) COPD (chronic obstructive pulmonary disease): Code(s): J44.9 - Chronic obstructive pulmonary disease, unspecified Status: Acute Plan 73-year-old male with past medical history of COPD presented with recurrent falls. Was found to have elevated CPK levels. Esophageal Candiasis EGD shows suspected infectious esophagitis, diffuse chronic gastritis seen in the fundus, body and antrum of the stomach. Patient underwent colonoscopy, there is a single small flat polyp was observed in the cecum. Polypectomy was performed. The rest of the colonic mucosa could not be well visualized due to poor prep. 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 possibly the candidiasis due to the steroid treatment but his HIV will be excluded Rhabdomyolysis: Monitor CPK levels,is tending down dc IV fluids Monitor kidney function PT/OT as tolerated Resolved Acute on chronic blood-loss anemia Hemoglobin continue to drop, upon arrival hemoglobin 12, today hemoglobin 7.8 Pending guaic iron panel iron 33 low, TIBC 221 low, saturation 15% low Start ferrous sulfate 325 mg bid po Consult GI for evaluation treatment, GI plans EGD and colonoscopy If no GI bleeding, consider to consult disability advocate Noted elevation in LFTs, already improving Total bilirubin has normalized Acute hypoxic respiratory failure, community-acquired pneumonia Continue with O2 support CT chest : Pneumonia in the left lower lobe. Minimal pneumonic changes in the left upper and right lower lobes posteriorly. Will obtain BNP with set of labs Obtain echo Patient is on ceftriaxone and azithromycin, changed to Augmentin Continue with DuoNeb, fluticasone Community-acquired pneumonia Patient has low-grade fever 99.1 C/w ceftriaxone and azithromycin Speech eval the patient, recommend modified diet and barium swallowing test today 3. Hypokalemia: Supplement potassium 4. Code status: Full Consult PT OT career based intervention coordinator for evaluation and assisting placement Subjective Date/time seen: 02/21/24 16:18 Interval history: Patient underwent colonoscopy, there is a single small flat polyp was observed in the cecum. Polypectomy was performed. The rest of the colonic mucosa could not be well visualized due to poor prep. Patient underwent EGD which shows suspected infectious esophagitis, diffuse chronic gastritis seen in the fundus, body and antrum of the stomach. Patient was initially consulted GI for anemia workup. As mentioned above patient underwent EGD and colonoscopy. Due to this finding the EGD patient will be started on fluconazole and also order HIV test. 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 Well-nourished. - EYES: EOMI. Anicteric. - HENT: Moist mucous membranes. - LUNGS: Clear to auscultation bilaterally, no wheezing, rhonchi, or rales. - CARDIOVASCULAR: Regular rate and rhythm. No murmur. No JVD. - ABDOMEN: Soft, non-tender and non-distended. No palpable masses. - EXTREMITIES: No edema. Peripheral pulses 2+. Non-tender. - NEUROLOGIC: No focal neurological deficits. CN II-XII grossly intact. General weakness - PSYCHIATRIC: Awake, Alert and oriented x 3. Appropriate mood and affect. - SKIN: No rashes or lesions. Warm. - LYMPH: No cervical lymphadenopathy. Const: General: comfortable, no acute distress, well developed, alert, awake, average body habitus and thin Nutritional Appearance: average body habitus and thin Orientation/consciousness: patient oriented x3 Other: patient looks older than stated age HENMT: Head: normal to inspection, normocephalic and atraumatic Ears: hearing grossly normal bilaterally Face/Nose/Sinus: normal facial exam Face and sinus: normal facial exam Mouth: Yes moist mucous membranes Eyes: General: appearance normal, both eyes and all related structures Sclera: sclerae normal Pupils: Equal, round and reactive pupils present EOM: EOMs intact bilaterally Neck: Neck: full ROM, no lymphadenopathy, supple and no JVD Thyroid: thyroid normal Lymphatic: no lymphadenopathy noted Resp: Effort & Inspection: normal respiratory effort and able to speak in complete sentences Auscultation: clear to auscultation bilaterally Other: Decreased breath sounds bilaterally, no wheezing heard Cardio: Jugular venous distension: no JVD Rate: regular rate Rhythm: regular rhythm Heart sounds: S1 normal heart sound present and S2 normal heart sound present : General: Yes deferred Skin: General skin exam: normal color Rashes: no rashes Wounds: no wounds Neuro: General: patient oriented x3, CN's II-XI intact bilaterally and Unable to assess gait Cranial nerves: Yes CN's II-XII intact bilaterally and Yes Equal, round and reactive pupils present Cognition (Neuro): normal cognition Speech: normal speech Gait exam (Neuro): Normal gait present and Unable to assess gait Motor exam (neuro): 5/5 motor strength present throughout Extrem: General: normal to inspection, full ROM, no joint enlargement and no pedal edema Psych: Mental Status: mental status grossly normal Objective Data Vital Signs Vital Signs: Vital Signs - 24 hr 02/20/24 19:17 02/20/24 19:17 02/20/24 19:43 Temperature Pulse Rate 65 Respiratory Rate 16 Blood Pressure Pulse Oximetry 96 Oxygen Delivery Room Air Room Air Oxygen Flow Rate Fraction of Inspired Oxygen 02/20/24 20:00 02/20/24 20:00 02/21/24 00:00 Temperature 97.2 F L Pulse Rate 65 65 60 Respiratory Rate 18 Blood Pressure 148/67 H Pulse Oximetry 97 Oxygen Delivery Oxygen Flow Rate Fraction of Inspired Oxygen 02/21/24 00:00 02/21/24 02:07 02/20/24 19:23 Temperature 97.7 F Pulse Rate 61 68 70 Respiratory Rate 18 22 H 16 Blood Pressure 146/85 H Pulse Oximetry 93 Oxygen Delivery Oxygen Flow Rate Fraction of Inspired Oxygen 02/21/24 03:33 02/21/24 04:57 02/21/24 04:00 Temperature 97.8 F Pulse Rate 65 61 64 Respiratory Rate 18 20 Blood Pressure 140/92 H 145/79 H Pulse Oximetry 91 97 Oxygen Delivery Oxygen Flow Rate Fraction of Inspired Oxygen 02/21/24 05:00 02/21/24 07:50 02/21/24 07:50 Temperature Pulse Rate 65 Respiratory Rate 20 Blood Pressure Pulse Oximetry 92 95 Oxygen Delivery Nasal Cannula Nasal Cannula Oxygen Flow Rate 2 2 Fraction of Inspired Oxygen 28 02/21/24 07:59 02/21/24 10:38 02/21/24 12:30 Temperature 97.7 F Pulse Rate 63 65 75 Respiratory Rate 20 14 23 H Blood Pressure 124/72 115/75 Pulse Oximetry 97 93 Oxygen Delivery Room Air Nasal Cannula Oxygen Flow Rate 4 Fraction of Inspired Oxygen 02/21/24 12:40 02/21/24 12:50 02/21/24 13:26 Temperature Pulse Rate 76 72 62 Respiratory Rate 24 H 15 18 Blood Pressure 119/57 L 107/74 Pulse Oximetry 92 100 Oxygen Delivery Nasal Cannula Nasal Cannula Oxygen Flow Rate 4 4 Fraction of Inspired Oxygen 02/21/24 13:34 02/21/24 08:00 02/21/24 02:00 Temperature 96.3 F L Pulse Rate 65 65 Respiratory Rate 18 14 Blood Pressure 146/77 H Pulse Oximetry 100 100 Oxygen Delivery Nasal Cannula Oxygen Flow Rate 2 Fraction of Inspired Oxygen Intake/Output Intake/Output: Intake & Output 02/18/24 02/19/24 02/20/24 02/21/24 23:59 23:59 23:59 23:59 Intake Total 3790 1770 592 207.5 Output Total 513 074 0842 2000 Balance 2940 2160 -9724 -4742.5 Meds/Results Medications: Active Medications Generic Name Dose Route Start Last Admin Trade Name Freq PRN Reason Stop Dose Admin Acetaminophen 650 mg 02/16/24 21:45 02/17/24 22:05 Acetaminophen 325 Mg Tablet PO 650 mg Q4H PRN Administration Mild Pain (1-3) or Fever Hydrocodone Bitart/Acetaminophen 1 tab 02/16/24 21:45 02/20/24 20:10 Hydrocodone/Acetaminophen (*Crx) 5-325 Mg Tablet PO 1 tab Q4H PRN Administration Pain Rated 4-6 Albuterol 1 puff 02/21/24 12:52 Albuterol Sulfate (*Sp) Aerosol 1 Puff INHALATION Q4HRT PRN Shortness Of Breath Or Wheezing Albuterol/Ipratropium 3 ml 02/17/24 02:00 02/21/24 13:26 Ipratropium 0.5 Mg/Albuterol Sulfate 2.5 Mg Ampul.Neb 3 Ml INHALATION 3 ml Q6HRT CARYL Administration Alprazolam 1 mg 02/17/24 10:34 02/17/24 22:06 Alprazolam (*Crx) 0.5 Mg Tablet PO 1 mg TID PRN Administration anxiety Aspirin 162 mg 02/22/24 09:00 Aspirin 81 Mg Chewable Tablet PO DAILY CARYL Baclofen 5 mg 02/21/24 12:52 Baclofen 5 Mg Tablet PO TID PRN muscle spasms Escitalopram Oxalate 20 mg 02/17/24 21:00 02/20/24 20:06 Escitalopram Oxalate 10 Mg Tablet PO 20 mg HS CARYL Administration Ferrous Sulfate 325 mg 02/19/24 09:25 02/21/24 09:51 Ferrous Sulfate [address] PO Not Given BID CARYL Fluconazole 50 mg 02/21/24 17:00 Fluconazole 50 Mg Tablet PO 03/06/24 16:59 BID CARYL Fluticasone/Umeclidinium/Vilanterol 1 puff 02/17/24 10:40 02/21/24 07:51 Fluticasone/Umeclidin/Vilanter 100-62.5-25 Mcg Ellipta INHALATION 1 puff DAILYRT CARYL Administration Heparin Sodium (Porcine) 5,000 units 02/17/24 21:00 02/21/24 08:31 Heparin Sodium 5,000 Units/Ml Vial SUB-Q Not Given Q12HR CARYL Nitroglycerin 1 spray 02/21/24 12:52 Nitroglycerin 0.4 Mg/[place] Oral Btl (*Bkc) TRANSLINGU Q5M PRN Chest Pain Ondansetron HCl 4 mg 02/16/24 21:45 Ondansetron Inj 4 Mg/2 Ml Vial IV PUSH Q4H PRN Nausea Pantoprazole Sodium 40 mg 02/21/24 09:00 02/21/24 10:29 Pantoprazole Sodium Iv 40 Mg Vial IV PUSH 40 mg QAM CARYL Administration Polyethylene Glycol 17 gm 02/20/24 09:00 02/21/24 08:33 Polyethylene Glycol 3350 17 Gm Powd.Pack PO Not Given QAM [facility] Ranolazine 500 mg 02/17/24 10:40 02/21/24 09:49 Ranolazine 500 Mg Tab.Er.12h PO Not Given Q12HR [facility] Simvastatin 20 mg 02/17/24 10:40 02/21/24 09:49 Simvastatin 20 Mg Tablet PO Not Given DAILY [facility] Radiology Results: ITS Impressions Head CT 02/16/24 19:47 IMPRESSION: 1. Moderate nonspecific cerebral white matter disease, which likely represents chronic small vessel ischemic disease. Elbow X-Ray 02/16/24 19:58 IMPRESSION: 1. No fracture. Wrist X-Ray 02/16/24 19:59 IMPRESSION: 1. Severe osteoarthritis of first carpometacarpal joint. Chest CT 02/17/24 17:54 IMPRESSION: 1. Ascending aorta measures 4.7 cm. 2. Pneumonia in the left lower lobe. Minimal pneumonic changes in the left upper and right lower lobes posteriorly. Venous Doppler Study 02/17/24 18:24 IMPRESSION: Negative bilateral lower extremity venous US. No deep vein thrombosis. Modified Barium Swallow 02/20/24 15:09 IMPRESSION: Pharyngeal dysphagia with small amount of transient laryngeal penetration without aspiration with thin liquids. Please correlate with speech pathologist findings and specific feeding recommendations. Chest X-Ray 02/21/24 06:14 IMPRESSION: 1. Stable airspace opacities in left mid and lower lung zones and right lower lung zone, consistent with pneumonia. 2. Emphysema. Labs Labs: Laboratory Results - last 24 hr 02/21/24 08:55 WBC 8.0 RBC 3.81 L Hgb 10.6 L Hct 32.3 L MCV 84.8 MCH 27.8 MCHC 32.8 RDW 17.4 H Plt Count 214 MPV 9.2 Immature Gran % (Auto) 1.2 H Neut % (Auto) 82.4 H Lymph % (Auto) 7.4 L [place] % (Auto) 7.9 Eos % (Auto) 0.9 Baso % (Auto) 0.2 Lymph # (Auto) 0.59 L [place] # (Auto) 0.6 Eos # (Auto) 0.1 Baso # (Auto) 0.0 Abs Immat Gran (auto) 0.10 H Absolute Neuts (auto) 6.6 Absolute Nucleated RBC 0.000 Nucleated RBC % 0.0 Sodium 132 L Potassium 3.0 L Chloride 91 L Carbon Dioxide 35 H Anion Gap 6 BUN 4 L Creatinine 0.60 L Estim Creat Clear Calc 96 Estimated GFR > 60 Glucose 102 Calcium 8.6 Quality VTE Prophylaxis VTE prophylaxis: pharmacologic ordered Hospitalist [facility] Advance Care Plan I have confirmed that the patient's Advanced Care Plan is present, code status is documented, or surrogate decision maker is listed in patient medical record.: Yes Medication Reconciliation I have utilized all available resources to obtain, update and review the patients current medications (includes all prescriptions, OTC, herbals, cannabis, and nutritional supplements).: Yes
[2024-02-21] MEDS: FLUCONAZOLE 50 MG TABLET PO (17:31)
[2024-02-21] MEDS: FERROUS SULFATE 325 MG TABLET DR PO (17:31)
[2024-02-21] MEDS: RANOLAZINE 500 MG TAB.ER.12H PO (19:48)
[2024-02-21] MEDS: HYDROcodone/acetaminophen (*CRX) 5-325 MG TABLET 1 TAB PO (19:48)
[2024-02-21] MEDS: ESCITALOPRAM OXALATE 10 MG TABLET 20 MG PO (19:48)
[2024-02-21] MEDS: HEPARIN SODIUM 5,000 UNITS/ML VIAL 5000 UNITS SUB-Q (19:49)
[2024-02-21 20:19] LABS: HIV 1/2 Ab P24 Ag Result Negative (Negative)
[2024-02-22] VITALS (15 sets, daily range): BP systolic 109–162; BP diastolic 43–77; PULSE 57–68; RESP 18; TEMP 35.9–36.8; O2SAT 92–100
[2024-02-22] MEDS: IPRATROPIUM 0.5 MG/ALBUTEROL SULFATE 2.5 MG AMPUL.NEB 3 ML INHALATION ×3 (02:08→13:29)
[2024-02-22 05:49] LABS: Hematocrit 29.1 % (42.0-52.0); Hemoglobin 9.7 g/dL (14.0-18.0); Mean Corpuscular HGB Conc 33.3 g/dl (32-36); Mean Corpuscular Hemoglobin 28.7 pg (26-34); Mean Corpuscular Volume 86.1 fl (80-100); Mean Platelet Volume 10.1 fl (7.4-10.4); Platelet Count Result 200 k/mm3 (150-375); Red Blood Count 3.38 M/mm3 (4.6-6.20); Red Cell Distribution Width 17.4 % (11.5-14.5); White Blood Count 11.4 K/mm3 (4.5-10.0)
[2024-02-22 06:01] LABS: Alanine Aminotransferase 23 U/L (6-50); Albumin Level 3.3 g/dL (3.5-5.1); Alkaline Phosphatase 79 U/L (38-126); Anion Gap 3 mmol/L (4-12); Aspartate Amino Transferase 44 U/L (17-59); Bilirubin,Total 0.9 mg/dL (0.2-1.3); Blood Urea Nitrogen 5 mg/dL (9-20); Calcium 8.1 mg/dL (8.4-10.2); Carbon Dioxide 37 mmol/L (22-30); Chloride 91 mmol/L (98-107); Estimated CRCL calculation 103 ml/min; Estimated Glomerular Filt Rate > 60; Glucose 93 mg/dL (65-110); Potassium 3.5 mmol/L (3.4-5.0); Sodium 131 mmol/L (137-145)
[2024-02-22] MEDS: ALPRAZolam (*CRX) 0.5 MG TABLET 1 MG PO (06:20)
[2024-02-22] MEDS: FLUTICASONE/UMECLIDIN/VILANTER 100-62.5-25 MCG ELLIPTA 1 PUFF INHALATION (07:08)
[2024-02-22] MEDS: PANTOPRAZOLE SODIUM IV 40 MG VIAL IV PUSH (09:28)
[2024-02-22] MEDS: HEPARIN SODIUM 5,000 UNITS/ML VIAL 5000 UNITS SUB-Q (09:31)
[2024-02-22] MEDS: polyethylene glycoL 3350 17 GM POWD.PACK PO (09:32)
[2024-02-22] MEDS: FLUCONAZOLE 50 MG TABLET PO ×2 (09:33→17:12)
[2024-02-22] MEDS: FERROUS SULFATE 325 MG TABLET DR PO ×2 (09:33→17:12)
[2024-02-22] MEDS: SIMVASTATIN 20 MG TABLET PO (09:33)
[2024-02-22] MEDS: RANOLAZINE 500 MG TAB.ER.12H PO (09:33)
[2024-02-22] MEDS: ASPIRIN 81 MG CHEWABLE TABLET 162 MG PO (09:36)
--- NOTE | 2024-02-22 14:15 | WPDANESPN ---
Anes - Prog Note Post-Op Date/Time: 02/22/24 14:15 Cardiovascular status: normal Respiratory status: normal Airway patency: baseline Mental status: baseline Post-Op hydration status: normal Vital Signs: Last Vital Signs Temp 35.9 C L 02/22/24 12:00 Pulse 59 L 02/22/24 13:37 Resp 18 02/22/24 13:37 BP 109/43 L 02/22/24 12:00 Pulse Ox 92 02/22/24 12:57 O2 Del Method Nasal Cannula 02/22/24 12:57 O2 Flow Rate 1 02/22/24 12:57 FiO2 28 02/21/24 07:50 Pain Score (VAS): Patient asleep, no nonverbals of pain present at this time. I/O: Intake & Output 02/21/24 02/22/24 02/22/24 23:59 07:59 15:59 Intake Total 222 240 340 Output Total 1400 1100 350 Balance -1178 -860 -10 Laboratory Tests 02/22/24 05:23 02/22/24 05:23 02/21/24 02/22/24 18:58 05:23 WBC 11.4 H RBC 3.38 L Hgb 9.7 L Hct 29.1 L MCV 86.1 MCH 28.7 MCHC 33.3 RDW 17.4 H Plt Count 200 MPV 10.1 Sodium 131 L Potassium 3.5 Chloride 91 L Carbon Dioxide 37 H Anion Gap 3 L BUN 5 L Creatinine 0.50 L Estim Creat Clear Calc 103 Estimated GFR > 60 Glucose 93 Calcium 8.1 L Total Bilirubin 0.9 AST 44 ALT 23 Alkaline Phosphatase 79 Total Protein 7.0 Albumin 3.3 L HIV 1&2 Ab/P24 Ag 4thGn Negative Microbiology 02/16/24 23:57 Blood Blood Culture - Final 02/16/24 23:51 Blood Blood Culture - Final Post-procedural complaints: none Patient Feedback: Patient satisfied with anesthetic care.
--- NOTE | 2024-02-22 14:20 | P.DS_ITS ---
DS: Admitting Diagnosis Discharge Date 02/22/2024 Admitting Diagnosis FALL DS: Discharge Diagnosis Discharge Diagnosis (1) Rhabdomyolysis: Qualifiers: Rhabdomyolysis type: non-traumatic Qualified Code(s): M62.82 - Rhabdomyolysis Code(s): M62.82 - Rhabdomyolysis Status: Acute (2) Acute hypoxic respiratory failure: Code(s): J96.01 - Acute respiratory failure with hypoxia Status: Acute (3) COPD (chronic obstructive pulmonary disease): Code(s): J44.9 - Chronic obstructive pulmonary disease, unspecified Status: Acute Plan 73-year-old male with past medical history of COPD presented with recurrent falls. Was found to have elevated CPK levels. Esophageal Candiasis EGD shows suspected infectious esophagitis, diffuse chronic gastritis seen in the fundus, body and antrum of the stomach. Patient underwent colonoscopy, there is a single small flat polyp was observed in the cecum. Polypectomy was performed. The rest of the colonic mucosa could not be well visualized due to poor prep. 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 possibly the candidiasis due to the steroid treatment but his HIV will be excluded Rhabdomyolysis: Monitor CPK levels,is tending down dc IV fluids Monitor kidney function PT/OT as tolerated Resolved Acute on chronic blood-loss anemia Hemoglobin continue to drop, upon arrival hemoglobin 12, today hemoglobin 7.8 Pending guaic iron panel iron 33 low, TIBC 221 low, saturation 15% low Start ferrous sulfate 325 mg bid po Consult GI for evaluation treatment, GI plans EGD and colonoscopy If no GI bleeding, consider to consult corporate director Noted elevation in LFTs, already improving Total bilirubin has normalized Acute hypoxic respiratory failure, community-acquired pneumonia Continue with O2 support CT chest : Pneumonia in the left lower lobe. Minimal pneumonic changes in the left upper and right lower lobes posteriorly. Will obtain BNP with set of labs Obtain echo Patient is on ceftriaxone and azithromycin, changed to Augmentin Continue with DuoNeb, fluticasone Community-acquired pneumonia Patient has low-grade fever 99.1 C/w ceftriaxone and azithromycin Speech eval the patient, recommend modified diet and barium swallowing test today DS: Summary Hospital Course Hospital Course: This is a 73-year-old male with past medical history significant for COPD, frequent falls. Patient was brought to the emergency room after having a fall. No loss of consciousness. most of the history has been obtained from brother who is at bedside patient is distraught really unable to give much history denies any nausea, vomiting, diarrhea. Preliminary workup was significant for elevated CPK. Patient has been admitted for further evaluation management and treatment. His rhabdomyolysis has been resulted due to the fall. Patient has acute on chronic blood-loss anemia hemoglobin continue to drop upon arrival the hemoglobin is stable but the hemoglobin today 7.8. Iron study shows iron 33, TIBC 221, saturation 16%. Patient started on ferrous sulfate 325 mg p.o. b.i.d.. Patient also developed a pneumonia left lower lobe and was treated with ceftriaxone and azithromycin. He completed a course of antibiotics Patient was consulted GI for anemia workup and underwent EGD and colonoscopy. Patient underwent colonoscopy, there is a single small flat polyp was observed in the cecum. Polypectomy was performed. The rest of the colonic mucosa could not be well visualized due to poor prep. Patient underwent EGD which shows suspected infectious esophagitis, diffuse chronic gastritis seen in the fundus, body and antrum of the stomach. Patient underwent EGD which shows candidiasis and started on fluconazole and also ordered HIV test which was negative. 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 Patient is currently doing well even though he has baseline dementia. Patient is discharged with a 10 days course of fluconazole 50 mg b.i.d.. Patient needs to follow up with the principal solutions architect and primary care physician. Status at Discharge Cognitive/behavioral status at discharge: Stable Time Spent with Patient Time attestation: Total time spent providing and/or coordinating discharge services: 45 minute Exam Narrative: GENERAL: Pleasant, in no acute distress. Well-nourished. - EYES: EOMI. Anicteric. - HENT: Moist mucous membranes. - LUNGS: Clear to auscultation bilateral ly, no wheezing, rhonchi, or rales. - CARDIOVASCULAR: Regular rate and rhyth m. No murmur. No JVD. - ABDOMEN: Soft, non-tender and non-dist ended. No palpable masses. - EXTREMITIES: No edema. Peripheral puls es 2+. Non-tender. - NEUROLOGIC: No focal neurological defi cits. CN II-XII grossly intact. General weakness - PSYCHIATRIC: Awake, Alert and oriented x 3. Appropriate mood and affect. - SKIN: No rashes or lesions. Warm. - LYMPH: No cervical lymphadenopathy. Const: General: comfortable, no acute distress, well developed, alert, awake, average body habitus and thin Nutritional Appearance: average body habitus and thin Orientation/consciousness: patient oriented x3 Other: patient looks older than stated age HENMT: Head: normal to inspection, normocephalic and atraumatic Ears: hearing grossly normal bilaterally Face/Nose/Sinus: normal facial exam Face and sinus: normal facial exam Mouth: Yes moist mucous membranes Eyes: General: appearance normal, both eyes and all related structures Sclera: sclerae normal Pupils: Equal, round and reactive pupils present EOM: EOMs intact bilaterally Neck: Neck: full ROM, no lymphadenopathy, supple and no JVD Thyroid: thyroid normal Lymphatic: no lymphadenopathy noted Resp: Effort & Inspection: normal respiratory effort and able to speak in complete sentences Auscultation: clear to auscultation bilaterally Other: Decreased breath sounds bilaterally, no wheezing heard Cardio: Jugular venous distension: no JVD Rate: regular rate Rhythm: regular rhythm Heart sounds: S1 normal heart sound present and S2 normal heart sound present : General: Yes deferred Skin: General skin exam: normal color Rashes: no rashes Wounds: no wounds Neuro: General: patient oriented x3, CN's II-XI intact bilaterally and Unable to assess gait Cranial nerves: Yes CN's II-XII intact bilaterally and Yes Equal, round and reactive pupils present Cognition (Neuro): normal cognition Speech: normal speech Gait exam (Neuro): Normal gait present and Unable to assess gait Motor exam (neuro): 5/5 motor strength present throughout Extrem: General: normal to inspection, full ROM, no joint enlargement and no pedal edema Psych: Mental Status: mental status grossly normal DS: Data Data Completed and Pending Completed studies during hospitalization: Pending at discharge 02/21/24 12:01 Surgical [PTH] Routine Surgical [PTH] Routine Labs on day of discharge: Labs from last 24 hours 02/22/24 02/21/24 05:23 18:58 WBC 11.4 H RBC 3.38 L Hgb 9.7 L Hct 29.1 L MCV 86.1 MCH 28.7 MCHC 33.3 RDW 17.4 H Plt Count 200 MPV 10.1 Sodium 131 L Potassium 3.5 Chloride 91 L Carbon Dioxide 37 H Anion Gap 3 L BUN 5 L Creatinine 0.50 L Estim Creat Clear Calc 103 Estimated GFR > 60 Glucose 93 Calcium 8.1 L Total Bilirubin 0.9 AST 44 ALT 23 Alkaline Phosphatase 79 Total Protein 7.0 Albumin 3.3 L HIV 1&2 Ab/P24 Ag 4thGn Negative Discharge Plan Discharge Attending physician on discharge: Brendon Douglas Consulting providers: Saurabh Ga Discharging Clinician: Brendon Douglas Anticipated Discharge Date/Time: 02/22/24 14:15 Patient Disposition: SNF Activity: as tolerated and other - see discharge instructions Diet: heart healthy and other - see discharge instructions Discharge Instructions: Fall precaution Diet: Minced and moist,Level 5 diet Please continue Fluconazole 50mg PO BID x 10 days (02/22- 03/03) Pending esophageal biopsy result. Follow up with GI Patient Instructions: Rhabdomyolysis (GEN), Dyspnea (GEN) Stand Alone Forms: General Discharge Information Follow-up/Referrals: Saurabh Ga MD [Physician] - 1 Week (Fluconazole 50 mg b.i.d. for 10 days for Candidiasis of Esophagus .Pending esophageal biopsy result.) Discharge Medications: New ferrous sulfate 325 mg (65 mg iron) Tablet,Delayed Release (Dr/Ec) 325 mg PO BID Qty: 30 0RF fluconazole [Diflucan] 100 mg Tablet 50 mg PO BID Qty: 20 0RF Continued aspirin 81 mg tablet,chewable 2 tablet PO DAILY baclofen 10 mg tablet 5 mg PO TID PRN (Reason: muscle spasms) escitalopram oxalate 20 mg tablet 20 mg PO HS nitroglycerin 400 mcg/spray spray,non-aerosol 1 spray translingual Q5M PRN (Reason: Chest Pain) Rx Instructions: do not exceed 3 doses per episode simvastatin 20 mg tablet 20 mg PO DAILY Trelegy Ellipta 100-62.5-25 mcg blister with device 1 inh inhalation DAILY ranolazine 500 mg tablet extended release 12 hr 500 mg PO Q12H ProAir HFA 90 mcg/actuation HFA aerosol inhaler 1 inh inhalation Q4H PRN (Reason: Shortness Of Breath Or Wheezing) Qty: 0 0RF alprazolam 1 mg tablet 1 mg PO TID PRN (Reason: anxiety) Qty: 90 0RF Date of admission: 02/17/24 06:55 Primary Care Provider: PHYSICIAN NOT ON STAFF,NONSTAFF Admitting Provider: Andrea High V. Attending physician on admission: Andrea High V. Condition: Stable
== END 2024-02-22 18:32 | DRG 557 ==
LOC: ANHED 20:49 → ANHIMU 22:50 → ANH2MED 02-19 19:21
PROVIDERS: Hospitalist; Internal Medicine; Internal Medicine Gastroenterology; Admitting Provider Internal Medicine; Emergency Provider Emergency Medicine; Visit Provider General Practice
PROC: 0DJ08ZZ Inspection of Upper Intestinal Tract, Via Natural or Artificial Opening Endoscopic (ICD-10-PCS; CPT 43235; principal; 2024-02-21 11:00)
DX: M62.82 Rhabdomyolysis (principal); J18.9 Pneumonia, unspecified organism; J96.01 Acute respiratory failure with hypoxia; B37.81 Candidal esophagitis; D62 Acute posthemorrhagic anemia; J44.0 Chronic obstructive pulmonary disease with (acute) lower respiratory infection; E87.1 Hypo-osmolality and hyponatremia; K20.80 Other esophagitis without bleeding; K29.50 Unspecified chronic gastritis without bleeding; E87.6 Hypokalemia; K63.5 Polyp of colon; I25.10 Atherosclerotic heart disease of native coronary artery without angina pectoris; E78.5 Hyperlipidemia, unspecified; R29.6 Repeated falls; G62.9 Polyneuropathy, unspecified; E03.9 Hypothyroidism, unspecified; F17.210 Nicotine dependence, cigarettes, uncomplicated; Z20.822 Contact with and (suspected) exposure to COVID-19; Z86.0100 Personal history of colon polyps, unspecified; Z90.49 Acquired absence of other specified parts of digestive tract; Z95.1 Presence of aortocoronary bypass graft; Z85.850 Personal history of malignant neoplasm of thyroid; Z85.828 Personal history of other malignant neoplasm of skin; Z85.118 Personal history of other malignant neoplasm of bronchus and lung; Z96.1 Presence of intraocular lens; Z98.42 Cataract extraction status, left eye; Z98.41 Cataract extraction status, right eye; Z79.82 Long term (current) use of aspirin; T38.0X5A Adverse effect of glucocorticoids and synthetic analogues, initial encounter
CPT/HCPCS: 36415; 70450; 71045; 71250; 73080; 73110; 80048; 80053; 82550; 82728; 83540; 83550; 83605; 83735; 83880; 84484; 85025; 85027; 85610; 85730; 86703; 87040; 87637; 88305; 92610; 92611; 93005; 93306; 93970; 94640; 96361; 97110; 97162; 97166; 97530; 97535; 99285; A9270; G0378; G0432; J0456; J0696; J1644; J1940; J2371; J2470; J2704; J7030; J7120

== ENCOUNTER 2024-03-01 21:11 | Emergency (ER) | payer MEDICARE, OTHER, SELFPAY ==
[2024-03-01 21:15] VITALS: BP 115/61; PULSE 61; RESP 20; TEMP 36.2; O2SAT 98
[2024-03-01 21:40] LABS: Basophils Percent Auto 0.1 % (0.2-1.2); Eosinophils Percent Auto 0.6 % (0-4.4); Hematocrit 25.1 % (42.0-52.0); Hemoglobin 8.6 g/dL (14.0-18.0); Immature Granulocyte Absolute 0.08 K/mm3 (0.00-0.031); Immature Granulocyte Percent A 1.2 % (0-0.5); Lymphocytes Absolute Auto 0.83 K/mm3 (0.9-3.2); Lymphocytes Percent Auto 12.1 % (18.3-44.2); Mean Corpuscular HGB Conc 34.3 g/dl (32-36); Mean Corpuscular Hemoglobin 28.7 pg (26-34); Mean Corpuscular Volume 83.7 fl (80-100); Mean Platelet Volume 8.8 fl (7.4-10.4); Monocytes Absolute Auto 0.6 K/mm3 (0.1-0.6); Monocytes Percent Auto 8.7 % (2.6-8.5); Neutrophils Absolute Auto 5.3 K/mm3 (1.3-6.7); Neutrophils Percent Auto 77.3 % (45.5-73.1); Platelet Count Result 246 k/mm3 (150-375); Red Cell Distribution Width 18.3 % (11.5-14.5); White Blood Count 6.9 K/mm3 (4.5-10.0)
[2024-03-01 21:50] LABS: Alanine Aminotransferase 18 U/L (6-50); Albumin Level 3.6 g/dL (3.5-5.1); Alkaline Phosphatase 103 U/L (38-126); Anion Gap 7 mmol/L (4-12); Aspartate Amino Transferase 39 U/L (17-59); Bilirubin,Total 0.9 mg/dL (0.2-1.3); Blood Urea Nitrogen 5 mg/dL (9-20); Calcium 8.1 mg/dL (8.4-10.2); Carbon Dioxide 30 mmol/L (22-30); Chloride 87 mmol/L (98-107); Estimated CRCL calculation 98 ml/min; Estimated Glomerular Filt Rate > 60; Glucose 90 mg/dL (65-110); Potassium 4.3 mmol/L (3.4-5.0); Sodium 124 mmol/L (137-145)
[2024-03-02 00:31] VITALS: BP 108/51; PULSE 117; RESP 20; TEMP 36.6
--- NOTE | 2024-03-02 01:38 | ED_ITS ---
HPI - Recheck/Abnormal Lab/Rx General Chief Complaint: Recheck/Abnormal Lab/Rx Stated Complaint: low hgb Time Seen by Provider: 03/02/24 01:37 History of Present Illness HPI narrative: Patient sent here from detention for reported low hemoglobin. Patient denies any complaints, he does not feel weak or dizzy, chest pain or shortness of breath. Has not noticed any blood in his stool. Related Data Home Medications Medication Instructions Recorded Confirmed aspirin 81 mg chewable tablet 2 tablet PO DAILY 07/21/20 02/17/24 baclofen 10 mg tablet 5 mg PO TID PRN muscle spasms 07/21/20 02/17/24 escitalopram oxalate 20 mg tablet 20 mg PO HS 07/21/20 02/17/24 fluticasone fur. 100 mcg-umeclid 1 inh inhalation DAILY 07/21/20 02/17/24 62.5 mcg-vilant 25 mcg inhalat.powder (Trelegy Ellipta) nitroglycerin 400 mcg/spray 1 spray translingual Q5M PRN Chest 07/21/20 02/17/24 translingual Pain simvastatin 20 mg tablet 20 mg PO DAILY 07/21/20 02/17/24 ranolazine 500 mg tablet,extended 500 mg PO Q12H 03/22/21 02/17/24 release,12 hr Allergies Allergy/AdvReac Type Severity Reaction Status Date / Time atorvastatin AdvReac Mild MADE ME Verified 02/21/24 10:52 SICK methocarbamol AdvReac Mild MADE ME Verified 02/21/24 10:52 SICK terbinafine AdvReac Mild MADE ME Verified 02/21/24 10:52 SICK Review of Systems Review of Systems: All systems reviewed & are unremarkable except as noted in HPI and below PMFSH Past Medical History Medical History Basal cell carcinoma Closed fracture of right proximal humerus ORIF July 12, 2022 with Patiño staple device COPD (chronic obstructive pulmonary disease) Coronary artery disease Dr. Mane Dysphonia Frequent falls GERD (gastroesophageal reflux disease) High cholesterol History of thyroid cancer Treated with chemotherapy and radiation Hx of adenomatous colonic polyps Hypertension Hypothyroidism Lung cancer Status post right upper lobe pneumonectomy Lymphocytic esophagitis Nonerosive esophageal reflux disease Peripheral neuropathy Rectal bleeding Thrombocytopenia Surgical History Surgical History H/O arthroscopic knee surgery H/O right inguinal hernia repair (08/06/20) Repair of right inguinal hernia with 6 cm Parietex hernia mesh system History of bilateral carpal tunnel release History of colonoscopy History of coronary angioplasty History of esophagogastroduodenoscopy (EGD) 2006 History of hemorrhoidectomy History of left inguinal hernia repair (11/2018) With 8 cm of Parietex mesh dr. Stapleton History of medial meniscus repair of right knee (~2005) History of pneumonectomy (~2014) Right upper lobe due to lung cancer History of ventral hernia repair (~06/2006) Gastric volvulus with ventral hernia repair Hx of CABG (~09/2002) 4 vessel CABG Hx of cholecystectomy S/P ORIF (open reduction internal fixation) fracture Right shoulder 07/12/2022 Status post cataract extraction of both eyes with insertion of intraocular lens (~2015) Status post dilation of esophageal narrowing Family History Family History Mother MVA (motor vehicle accident) Father Gunshot wound Sibling Heart disease Other Family history of cardiovascular disease Social History Social History Social History: He is currently at the [place] rehab facility. He lives alone. He has smoked as much as a pack of cigarettes per day since he was 20 years old. He is now down to 4-5 cigarettes a day. 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 code status full code Years smoked: 50 Smoking status: Current every day smoker Tobacco type: cigarettes Second hand tobacco smoke exposure: Yes Alcohol intake: former Drinks per week: 7 Alcohol use details: STATES LAST DRINK AUGUST 31, 1984 Substance use: never Substance use type: prescription drug Other substance usage details: hx of oxycodone for pain, currently hydrocodone for pain Do You Feel Safe in your Home?: Yes Lack of Transportation: No Lack of Food: Never True Current Housing: I Have Housing Concerned About Future Housing: No Difficulty Paying Gas/Electric Bills: No Difficulty Paying for Meds: No Currently Unemployed: No Education: Decline to Answer Difficulty w/ Childcare or Family Care: No Living arrangements: alone Occupation/Education: retired Gender identity (if verbalized by the patient): Male Sexual Orientation (if Verbalized by the Patient): Straight or Heterosexual Spiritual care concerns: No Exam Narrative: EXAMINATION OF ORGAN SYSTEMS/BODY AREAS: Constitutional: Vital signs per nursing GENERAL:[No acute distress, non-toxic appearing.] HEAD: Normal with no signs of head trauma. EYES: EOMI, conjunctiva normal ENT: Hearing grossly intact LUNGS: Nonlabored breathing. HEART: [Regular rate and rhythm] ABD: [Soft], [nontender to palpation] EXT: Normal range of motion SKIN: Pale NEURO: [Alert and oriented x 3. No gross focal sensory or strength deficits.] PSYCH: Normal affect Course Vital Signs Vital signs: Vital Signs Temperature 97.1 F L 03/01/24 21:15 Pulse Rate 61 03/01/24 21:15 Respiratory Rate 20 03/01/24 21:15 Blood Pressure 115/61 03/01/24 21:15 Pulse Oximetry 98 03/01/24 21:15 Oxygen Delivery Room Air 03/01/24 21:15 Temperature 97.8 F 03/02/24 00:31 Pulse Rate 117 H 03/02/24 00:31 Respiratory Rate 20 03/02/24 00:31 Blood Pressure 108/51 L 03/02/24 00:31 Pulse Oximetry 98 03/01/24 21:15 Oxygen Delivery Room Air 03/01/24 21:15 MDM - Recheck/Abnormal Lab/Rx MDM Narrative Medical decision making narrative: patient presents here several detention for low hemoglobin. It is repeated here and is normal at 8.6, I did review his EMR and noted that this is around where his baseline is. His sodium is slightly low however he has no altered mental status or anything else concerning that I feel would benefit from treatment at this time. For some reason he has been getting near daily labs(?). patient has no complaints would like to go home and I feel this is quite appropriate. Stable for discharge with return precautions. Lab Data 03/01/24 21:34 03/01/24 21:34 Labs: Lab Results 03/01/24 Range/Units 21:34 WBC 6.9 (4.5-10.0) K/mm3 RBC 3.00 L (4.6-6.20) M/mm3 Hgb 8.6 L (14.0-18.0) g/dL Hct 25.1 L (42.0-52.0) % MCV 83.7 (80-100) fl MCH 28.7 (26-34) pg MCHC 34.3 (32-36) g/dl RDW 18.3 H (11.5-14.5) % Plt Count 246 (150-375) k/mm3 MPV 8.8 (7.4-10.4) fl Immature Gran % (Auto) 1.2 H (0-0.5) % Neut % (Auto) 77.3 H (45.5-73.1) % Lymph % (Auto) 12.1 L (18.3-44.2) % [place] % (Auto) 8.7 H (2.6-8.5) % Eos % (Auto) 0.6 (0-4.4) % Baso % (Auto) 0.1 L (0.2-1.2) % Lymph # (Auto) 0.83 L (0.9-3.2) K/mm3 [place] # (Auto) 0.6 (0.1-0.6) K/mm3 Eos # (Auto) 0.0 (0-0.3) K/mm3 Baso # (Auto) 0.0 (0.0-0.1) K/mm3 Abs Immat Gran (auto) 0.08 H (0.00-0.031) K/mm3 Absolute Neuts (auto) 5.3 (1.3-6.7) K/mm3 Absolute Nucleated RBC 0.000 (0.0-0.012) K/mm3 Nucleated RBC % 0.0 (0.0-0.2) % Sodium 124 L (137-145) mmol/L Potassium 4.3 (3.4-5.0) mmol/L Chloride 87 L (98-107) mmol/L Carbon Dioxide 30 (22-30) mmol/L Anion Gap 7 (4-12) mmol/L BUN 5 L (9-20) mg/dL Creatinine 0.50 L (0.7-1.3) mg/dL Estim Creat Clear Calc 98 ml/min Estimated GFR > 60 (59 - ) Glucose 90 (65-110) mg/dL Calcium 8.1 L (8.4-10.2) mg/dL Total Bilirubin 0.9 (0.2-1.3) mg/dL AST 39 (17-59) U/L ALT 18 (6-50) U/L Alkaline Phosphatase 103 (38-126) U/L Total Protein 7.0 (6.3-8.2) g/dL Albumin 3.6 (3.5-5.1) g/dL Discharge Plan Discharge Clinical Impression: Chronic hyponatremia, Anemia Patient Disposition: NH Shelter/Asst Living Condition: Stable Instructions: Hyponatremia (ED), Anemia (ED) Additional Instructions: Please follow up with your doctor; you can always return for any further issues. Prescriptions: No Action aspirin 81 mg tablet,chewable 2 tablet PO DAILY baclofen 10 mg tablet 5 mg PO TID PRN (Reason: muscle spasms) escitalopram oxalate 20 mg tablet 20 mg PO HS nitroglycerin 400 mcg/spray spray,non-aerosol 1 spray translingual Q5M PRN (Reason: Chest Pain) Rx Instructions: do not exceed 3 doses per episode simvastatin 20 mg tablet 20 mg PO DAILY Trelegy Ellipta 100-62.5-25 mcg blister with device 1 inh inhalation DAILY ranolazine 500 mg tablet extended release 12 hr 500 mg PO Q12H ProAir HFA 90 mcg/actuation HFA aerosol inhaler 1 inh inhalation Q4H PRN (Reason: Shortness Of Breath Or Wheezing) Qty: 0 0RF ferrous sulfate 325 mg (65 mg iron) Tablet,Delayed Release (Dr/Ec) 325 mg PO BID Qty: 30 0RF fluconazole [Diflucan] 100 mg Tablet 50 mg PO BID Qty: 20 0RF alprazolam 1 mg tablet 1 mg PO TID PRN (Reason: anxiety) Qty: 90 0RF Follow-up/Referrals: PHYSICIAN NOT ON STAFF,NONSTAFF [Primary Care Provider] -
[2024-03-02 03:14] VITALS: BP 110/64; PULSE 59; RESP 18; TEMP 36.7; O2SAT 100
== END 2024-03-02 03:58 ==
LOC: ANHED 03-02 01:46
PROVIDERS: Emergency Provider Emergency Medicine
DX: E87.1 Hypo-osmolality and hyponatremia (principal); D64.9 Anemia, unspecified; Z79.82 Long term (current) use of aspirin; J44.9 Chronic obstructive pulmonary disease, unspecified; I25.10 Atherosclerotic heart disease of native coronary artery without angina pectoris; K21.9 Gastro-esophageal reflux disease without esophagitis; Z85.850 Personal history of malignant neoplasm of thyroid; Z85.118 Personal history of other malignant neoplasm of bronchus and lung; I10 Essential (primary) hypertension; E03.9 Hypothyroidism, unspecified; F17.210 Nicotine dependence, cigarettes, uncomplicated
CPT/HCPCS: 36415; 80053; 85025; 99283

== ENCOUNTER 2024-03-07 15:45 | Inpatient (IN) | payer MEDICARE, OTHER, SELFPAY ==
[2024-03-07] VITALS (11 sets, daily range): BP systolic 117–134; BP diastolic 59–86; PULSE 59–64; RESP 13–26; TEMP 36.6–36.7; O2SAT 95–100; BMI 20.2
--- NOTE | ~2024-03-07 | CT_ITS ---
History: Altered mental status PROCEDURE: CT head without contrast. COMPARISON: 02/16/2024 and 07/01/2022 TECHNIQUE: Axial imaging of the head performed from the skull base to the vertex without IV contrast. Sagittal a nd coronal reformations obtained. DLP: 605 mGy-cm FINDINGS: The ventricles are normal in size, shape and position. There is no mass, mass effect or midline shift. There is no abnormal extra-axial fluid collection or intracranial hemorrhage. Visualized paranasal sinuses are clear. The mastoid air cells are well aerated. No acute displaced fractures within the overlying cranium. Impression: No acute intracranial hemorrhage or suspicious mass effect. Reviewed, dictated and finalized at location A. HT PARAMEDIC Impression: No acute intracranial hemorrhage or suspicious mass effect.
--- NOTE | ~2024-03-07 | XR_ITS ---
EXAMINATION: XR barium swallow modified DATE: 03/10/2024 11:25 INDICATION: Dysphagia. TECHNIQUE: The patient was given barium-containing material of multiple consistencies to swallow by t [place] speech pathologist while I performed fluoroscopy. Fluoroscopy exposure time was 1.8 minutes. The n umber of fluoroscopy images saved to the PACS was 1. Dose-area product was 1.017 Gy-cm^2. FINDINGS: There is reduced laryngeal seal/lip tension. There is reduced lingual movement, reduced laryngeal george vation, reduced laryngeal adduction, reduced tongue base retraction, vallecular residue, pyriform sin us residue, and pharyngeal wall residue. There is laryngeal penetration and aspiration. IMPRESSION: 1. Aspiration. 2. Please refer to the speech therapy report for recommendations. Reviewed, dictated and finalized at location A. TIFICATION TECHNICIAN
--- NOTE | ~2024-03-07 | XR_ITS ---
Portable chest x-ray Comparison: 03/07/2024 Clinical History: Cough, shortness of breath Findings: There is mild asymmetry haziness the left lung as compared to the right, similar to prior exam. Probable underlying COPD pattern of the right lung. Probable minimal pleural effusions. Cardio mediastinal silhouette is stable, status post CABG. Bones and soft tissues are unremarkable. Impression: Minimal pleural effusions with possible asymmetric left-sided pulmonary edema versus pneumonia left l jing. Underlying COPD. Reviewed, dictated and finalized at location . IDE DELIVERER Impression: Minimal pleural effusions with possible asymmetric left-sided pulmonary edema v ersus pneumonia left lung. Underlying COPD.
--- NOTE | ~2024-03-07 | XR_ITS ---
EXAMINATION: XR chest 1V portable DATE: 03/17/2024 13:46 INDICATION: Weakness. Crackles on lung auscultation. TECHNIQUE: A single frontal view of the chest was obtained. COMPARISON: Chest single view 03/11/2024, chest CT 02/17/2024 FINDINGS: There are airspace opacities in the mid and lower lung zones. No pleural effusion or pneumo thorax. The heart size is normal. Median sternotomy wires and mediastinal surgical clips are seen, bret malcom from prior coronary artery bypass grafting. There is a total right shoulder arthroplasty. IMPRESSION: 1. Airspace opacities in the mid and lower lung zones with improvement on the left, consistent with p neumonia. Reviewed, dictated and finalized at location A. PER GUN OPERATOR IMPRESSION: 1. Airspace opacities in the mid and lower lung zones with improvement on the l eft, consistent with pneumonia.
--- NOTE | ~2024-03-07 | XR_ITS ---
CHEST RADIOGRAPH CLINICAL HISTORY: AMS, COUGH, WEAKNESS . COMPARISON: 02/21/2024 TECHNIQUE: Single portable view of the chest. FINDINGS Sternal wires and mediastinal clips are identified, the wires are midline and intact. The remainder of the cardiomediastinal silhouette is otherwise unremarkable. Hazy opacification of the left hemithorax, findings consistent with (likely) an early infiltrate bimal g with a left-sided pleural effusion. The right hemithorax is clear. Total prosthetic within the right shoulder IMPRESSION: Early left-sided infiltrate with a large left-sided pleural effusion. Reviewed, dictated and finalized at location A. MATIC DRUM SANDER
--- NOTE | 2024-03-07 15:54 | ECG_ITS ---
Test Date: 2024-03-07 16:01:55 Measurements Intervals [place] Rate: 62 P: 66 [place]: 166 QRS: 23 QRSD: 105 T: 88 QT: 431 QTc: 438 Interpretive Statements SINUS RHYTHM NONSPECIFIC ST & T-WAVE ABNORMALITY- DIFFUSE LEADS BASELINE ARTIFACT- I, II, III, AVR, AVL, AVF, V1-V6 BORDERLINE ECG Compared to ECG 02/16/2024 20:15:22 No significant changes Electronically Signed On 03-07-2024 16:13:57 PAIRER INSPECTOR by Shady Reyes D.O.
[2024-03-07 16:16] LABS: Basophils Percent Auto 0.2 % (0.2-1.2); Eosinophils Percent Auto 0.1 % (0-4.4); Hematocrit 22.8 % (42.0-52.0); Hemoglobin 7.8 g/dL (14.0-18.0); Immature Granulocyte Absolute 0.09 K/mm3 (0.00-0.031); Immature Granulocyte Percent A 1.1 % (0-0.5); Lymphocytes Absolute Auto 0.64 K/mm3 (0.9-3.2); Lymphocytes Percent Auto 7.7 % (18.3-44.2); Mean Corpuscular HGB Conc 34.2 g/dl (32-36); Mean Corpuscular Hemoglobin 28.6 pg (26-34); Mean Corpuscular Volume 83.5 fl (80-100); Mean Platelet Volume 8.6 fl (7.4-10.4); Monocytes Absolute Auto 0.8 K/mm3 (0.1-0.6); Monocytes Percent Auto 9.9 % (2.6-8.5); Neutrophils Absolute Auto 6.7 K/mm3 (1.3-6.7); Platelet Count Result 208 k/mm3 (150-375); Red Blood Count 2.73 M/mm3 (4.6-6.20); White Blood Count 8.3 K/mm3 (4.5-10.0)
[2024-03-07 16:26] LABS: Prothrombin Time 13.6 Seconds (11.1-14.7)
[2024-03-07 16:27] LABS: Partial Thromboplastin Time 39.3 Seconds (22.3-36.8)
[2024-03-07 16:28] LABS: Alanine Aminotransferase 17 U/L (6-50); Albumin Level 3.3 g/dL (3.5-5.1); Alkaline Phosphatase 109 U/L (38-126); Anion Gap 6 mmol/L (4-12); Aspartate Amino Transferase 40 U/L (17-59); Bilirubin,Total 1.1 mg/dL (0.2-1.3); Blood Urea Nitrogen 6 mg/dL (9-20); Calcium 7.7 mg/dL (8.4-10.2); Carbon Dioxide 25 mmol/L (22-30); Chloride 86 mmol/L (98-107); Estimated CRCL calculation 82 ml/min; Estimated Glomerular Filt Rate > 60; Glucose 83 mg/dL (65-110); Potassium 3.9 mmol/L (3.4-5.0); Sodium 117 mmol/L (137-145)
[2024-03-07 16:45] LABS: Add Urine Microscopic? YES; Appearance Urine Cloudy (Clear); Bacteria Urine 4+ /hpf; Bilirubin Urine Negative (Negative); Blood Urine Negative (Negative); Color Urine Yellow (Yellow); Glucose Urine UA Negative (Negative); Ketones Urine Negative (Negative); Leukocyte Esterase Ur Negative LEU/UL (Negative); Nitrate Urine Positive (Negative); Non Pathogenic Casts 0-2; Protein Urine Negative (Negative); RBC Urine 0-2 /hpf (0-2); Specific Grav Ur 1.012 (1.001-1.035); Squamous Epithelial Cell Urine None Seen /hpf (Few); WBC Urine 0-5 /hpf (0-3); pH Urine 6.5 (5.0-9.0)
--- NOTE | 2024-03-07 17:25 | ED_ITS ---
HPI - Altered Mental Status General Chief Complaint: Altered Mental Status Stated Complaint: AMS Time Seen by Provider: 03/07/24 16:27 Source: patient, EMS, RN notes reviewed and other (physician) Mode of arrival: EMS History of Present Illness HPI narrative: Patient presents from [facility] via EMS. Dr. Edita Boo had called notifying me of his arrival in advance. He had previously been admitted here and was discharged to rehab facility. He was sent to the emergency department a few days ago because he was found to have a low hemoglobin and hyponatremia on labs but in the emergency department his hemoglobin is 8.6 and sodium was 124 he was discharged back to the facility. They started him on NaCl and fluid restric tion and reintroduced his levothyroxine which had been omitted from his medication list at some point. Yesterday, his sodium was noted to be 122 and is hemoglobin 7.1 on labs. She notes that he has been more altered, having hallucinations today and hypotensive at 82/56. He is on 3 liters/minute oxygen via nasal cannula which is his baseline. Patient appears alert and oriented my exam. 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 He states his address at the time and the neighbors address. He states he is hungry, he recalls having vegetables and gravy today. Related Data Home Medications Medication Instructions Recorded Confirmed aspirin 81 mg chewable tablet 2 tablet PO DAILY 07/21/20 02/17/24 baclofen 10 mg tablet 5 mg PO TID PRN muscle spasms 07/21/20 02/17/24 escitalopram oxalate 20 mg tablet 20 mg PO HS 07/21/20 02/17/24 fluticasone fur. 100 mcg-umeclid 1 inh inhalation DAILY 07/21/20 02/17/24 62.5 mcg-vilant 25 mcg inhalat.powder (Trelegy Ellipta) nitroglycerin 400 mcg/spray 1 spray translingual Q5M PRN Chest 07/21/20 02/17/24 translingual Pain simvastatin 20 mg tablet 20 mg PO DAILY 07/21/20 02/17/24 ranolazine 500 mg tablet,extended 500 mg PO Q12H 03/22/21 02/17/24 release,12 hr Allergies Allergy/AdvReac Type Severity Reaction Status Date / Time atorvastatin AdvReac Mild MADE ME Verified 02/21/24 10:52 SICK methocarbamol AdvReac Mild MADE ME Verified 02/21/24 10:52 SICK terbinafine AdvReac Mild MADE ME Verified 02/21/24 10:52 SICK PMFSH Past Medical History Medical History Basal cell carcinoma Closed fracture of right proximal humerus ORIF July 12, 2022 with Patiño staple device COPD (chronic obstructive pulmonary disease) Coronary artery disease Dr. Mane Dysphonia Frequent falls GERD (gastroesophageal reflux disease) High cholesterol History of thyroid cancer Treated with chemotherapy and radiation Hx of adenomatous colonic polyps Hypertension Hyponatremia Hypothyroidism Lung cancer Status post right upper lobe pneumonectomy Lymphocytic esophagitis Nonerosive esophageal reflux disease Peripheral neuropathy Rectal bleeding Rhabdomyolysis Thrombocytopenia Surgical History Surgical History H/O arthroscopic knee surgery H/O right inguinal hernia repair (08/06/20) Repair of right inguinal hernia with 6 cm Parietex hernia mesh system History of bilateral carpal tunnel release History of colonoscopy History of coronary angioplasty History of esophagogastroduodenoscopy (EGD) 2006 History of hemorrhoidectomy History of left inguinal hernia repair (11/2018) With 8 cm of [address]ex mesh dr. Stapleton History of medial meniscus repair of right knee (~2005) History of pneumonectomy (~2014) Right upper lobe due to lung cancer History of ventral hernia repair (~06/2006) Gastric volvulus with ventral hernia repair Hx of CABG (~09/2002) 4 vessel CABG Hx of cholecystectomy S/P ORIF (open reduction internal fixation) fracture Right shoulder 07/12/2022 Status post cataract extraction of both eyes with insertion of intraocular lens (~2015) Status post dilation of esophageal narrowing Family History Family History Mother MVA (motor vehicle accident) Father Gunshot wound Sibling Heart disease Other Family history of cardiovascular disease Social History Social History (Updated 03/07/24 @ 17:50 by Payal Lundberg MD) Social History: He lives alone. He has smoked as much as a pack of cigarettes per day since he was 20 years old. He is now down to 4-5 cigarettes a day. 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 code status full code; JAIME is with [place] documentation and signed by 02/02/23 but not dated by patient's brother (although signed by him) Years smoked: 50 Smoking status: Current every day smoker Tobacco type: cigarettes Second hand tobacco smoke exposure: Yes Alcohol intake: former Drinks per week: 7 Alcohol use details: STATES LAST DRINK AUGUST 31, 1984 Substance use: never Substance use type: prescription drug Other substance usage details: hx of oxycodone for pain, currently hydrocodone for pain Do You Feel Safe in your Home?: Yes Lack of Transportation: No Lack of Food: Never True Current Housing: I Have Housing Concerned About Future Housing: No Difficulty Paying Gas/Electric Bills: No Difficulty Paying for Meds: No Currently Unemployed: No Education: Decline to Answer Difficulty w/ Childcare or Family Care: No Living arrangements: alone Additional living arrangements comments: [place] Occupation/Education: retired 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/education comments: [employer]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 Cachectic/thin. HEAD: Normocephalic, atraumatic. EYES: Non injected, non icteric ENT: Nares clear, no rhinorrhea or epistaxis. Dry mucous membranes NECK: Supple. CHEST: Speaking in full sentences. No respiratory distress. Coarse bilateral breath sounds through left greater than right. HEART: Regular rate and rhythm. ABDOMEN: Soft, nondistended. No tenderness to palpation. EXTREMITIES: Normal range of motion. No lower extremity edema. SKIN: Warm, dry, no rash. NEURO: No focal deficits. Alert and oriented. Talkative, engaged. PSYCH: Normal mood and affect. Course Vital Signs Vital signs: Vital Signs Temperature 98.0 F 03/07/24 15:50 Pulse Rate 61 03/07/24 15:50 Respiratory Rate 18 03/07/24 15:50 Blood Pressure 125/72 03/07/24 15:50 Pulse Oximetry 100 11/06/24 15:50 Oxygen Delivery Nasal Cannula 03/07/24 15:50 Oxygen Flow Rate 3 03/07/24 15:50 Temperature 98.0 F 03/07/24 15:50 Pulse Rate 59 L 03/07/24 19:01 Respiratory Rate 20 03/07/24 19:01 Blood Pressure 128/69 03/07/24 19:01 Pulse Oximetry 100 03/07/24 19:01 Oxygen Delivery Room Air 03/07/24 15:56 Oxygen Flow Rate 3 03/07/24 15:50 MDM - Altered Mental Status MDM Narrative Medical decision making narrative: Patient presents with altered mental status and hallucinations per facility who called report. He has had acute on chronic anemia and hyponatremia and they are concerned for worsening processes. In the emergency department they are afebrile with vital signs within normal limits (though on supplemental O2 - he is on at baseline though). Normocytic anemia but >7 without explanation /concerns for acute blood loss due to hemorrhagic process. Hyponatremia 117 today; has chronically been low but this is worse. Patient's hyponatremia has been partially workup previously it appears per brief review of the EMR. No lung nodules in the CT scan obtained in January of 2024. Patient had been diagnosed with a pneumonia though no Legionella antigen had been drawn (since 2020); will order now. Only mild elevation of BNP. Patient discussed with on-call hospitalist Dr. High. She recommends discussing patient with pickling machine operator as well as dive master. Discussed with Dr. Mccarty who agrees with 2L NS and then re-checking BMP. Attempted to consult nephrology, paged twice with no response. Talked with Dr High again who agrees to admit. Unlikely nephrology would recommend alternative regimen (e.g. doubt 3% NS is indicated given this level today is not far off from his most recent and he is not particularly altered and has not had seizures) so will place the consult without speaking with them for them to follow in the morning. IMU for frequent monitoring. Differential Diagnosis Differential diagnosis: Likely altered mental status, hypoglycemia, hyponatremia, subarachnoid hemorrhage, sepsis (/infection) and other (anemia) Lab Data Attestation: I reviewed the patient's lab results. 03/07/24 16:09 03/07/24 16:09 Labs: Lab Results 03/07/24 03/07/24 Range/Units 16:09 16:34 WBC 8.3 (4.5-10.0) K/mm3 RBC 2.73 L (4.6-6.20) M/mm3 Hgb 7.8 L (14.0-18.0) g/dL Hct 22.8 L (42.0-52.0) % MCV 83.5 (80-100) fl MCH 28.6 (26-34) pg MCHC 34.2 (32-36) g/dl RDW 18.0 H (11.5-14.5) % Plt Count 208 (150-375) k/mm3 MPV 8.6 (7.4-10.4) fl Immature Gran % (Auto) 1.1 H (0-0.5) % Neut % (Auto) 81.0 H (45.5-73.1) % Lymph % (Auto) 7.7 L (18.3-44.2) % [place] % (Auto) 9.9 H (2.6-8.5) % Eos % (Auto) 0.1 (0-4.4) % Baso % (Auto) 0.2 (0.2-1.2) % Lymph # (Auto) 0.64 L (0.9-3.2) K/mm3 [place] # (Auto) 0.8 H (0.1-0.6) K/mm3 Eos # (Auto) 0.0 (0-0.3) K/mm3 Baso # (Auto) 0.0 (0.0-0.1) K/mm3 Abs Immat Gran (auto) 0.09 H (0.00-0.031) K/mm3 Absolute Neuts (auto) 6.7 (1.3-6.7) K/mm3 Absolute Nucleated RBC 0.000 (0.0-0.012) K/mm3 Nucleated RBC % 0.0 (0.0-0.2) % PT 13.6 (11.1-14.7) Seconds INR 1.0 APTT 39.3 H (22.3-36.8) Seconds Sodium 117 L* (137-145) mmol/L Potassium 3.9 (3.4-5.0) mmol/L Chloride 86 L (98-107) mmol/L Carbon Dioxide 25 (22-30) mmol/L Anion Gap 6 (4-12) mmol/L BUN 6 L (9-20) mg/dL Creatinine 0.60 L (0.7-1.3) mg/dL Estim Creat Clear Calc 82 ml/min Estimated GFR > 60 (59 - ) Glucose 83 (65-110) mg/dL Calcium 7.7 L (8.4-10.2) mg/dL Magnesium 2.0 (1.6-2.3) mg/dL Total Bilirubin 1.1 (0.2-1.3) mg/dL AST 40 (17-59) U/L ALT 17 (6-50) U/L Alkaline Phosphatase 109 (38-126) U/L NT-Pro-B Natriuret Pep 784 H (19.9-100) pg/mL Total Protein 6.0 L (6.3-8.2) g/dL Albumin 3.3 L (3.5-5.1) g/dL TSH 60.200 H (0.465-4.680) uIU/mL Urine Color Yellow (Yellow) Urine Appearance Cloudy H (Clear) Urine pH 6.5 (5.0-9.0) Ur Specific [place] 1.012 (1.001-1.035) Urine Protein Negative (Negative) mg/dL Urine Glucose (UA) Negative (Negative) mg/dL Urine Ketones Negative (Negative) mg/dL Ur Blood (Man) Negative (Negative) Urine Nitrate Positive H (Negative) Urine Bilirubin Negative (Negative) Urine Urobilinogen 1.0 (<2.0) mg/dL Leukocyte Esterase Rfl Negative (Negative) CHERELLE/UL Urine RBC 0-2 (0-2) /hpf Urine WBC 0-5 (0-3) /hpf Ur Squamous Epith Cells None seen (Few) /hpf Urine Bacteria 4+ H /hpf Urine Casts 0-2 Ur L.pneumophila Ag Pending Imaging Data Attestation: I personally reviewed and interpreted this imaging study as follows: My impression: Large left sided infiltrate on my independent interpretation Radiologist's impression: Impressions Chest X-Ray 03/07/24 19:04 IMPRESSION: Early left-sided infiltrate with a large left-sided pleural effusion. Head CT 03/07/24 19:52 Impression: No acute intracranial hemorrhage or suspicious mass effect. ECG Data EKG #1: Attestation: I personally reviewed and interpreted this ECG as follows: ECG completion date: 03/07/24 ECG completion time: 16:01 Interpretation: Normal sinus rhythm at a rate of 62 beats per minute. [place] interval 166. QRS 1 5. QT/QTC 431/436. T-waves are flat throughout the inferior leads and also to some degree in the lateral precordial leads but no T wave inversions. Good R- wave progression across the precordial leads. Discharge Plan Discharge Clinical Impression: Altered mental status, Normocytic anemia, Hyponatremia, Bacteriuria, Pleural effusion on left Patient Disposition: Still a Patient Condition: Stable Prescriptions: No Action aspirin 81 mg tablet,chewable 2 tablet PO DAILY baclofen 10 mg tablet 5 mg PO TID PRN (Reason: muscle spasms) escitalopram oxalate 20 mg tablet 20 mg PO HS nitroglycerin 400 mcg/spray spray,non-aerosol 1 spray translingual Q5M PRN (Reason: Chest Pain) Rx Instructions: do not exceed 3 doses per episode simvastatin 20 mg tablet 20 mg PO DAILY Trelegy Ellipta 100-62.5-25 mcg blister with device 1 inh inhalation DAILY ranolazine 500 mg tablet extended release 12 hr 500 mg PO Q12H ProAir HFA 90 mcg/actuation HFA aerosol inhaler 1 inh inhalation Q4H PRN (Reason: Shortness Of Breath Or Wheezing) Qty: 0 0RF ferrous sulfate 325 mg (65 mg iron) Tablet,Delayed Release (Dr/Ec) 325 mg PO BID Qty: 30 0RF fluconazole [Diflucan] 100 mg Tablet 50 mg PO BID Qty: 20 0RF alprazolam 1 mg tablet 1 mg PO TID PRN (Reason: anxiety) Qty: 90 0RF Follow-up/Referrals: UNKNOWN,DOCTOR [Primary Care Provider] - Time of Disposition: 20:39
[2024-03-07] MEDS: SODIUM CHLORIDE 0.9% IV 1,000 ML 999 ML IV CONT ×2 (18:16→20:21)
[2024-03-07 20:06] LABS: NT Pro B Type Natriuretic Pept 784 pg/mL (19.9-100)
--- NOTE | 2024-03-07 20:36 | PM.IMHP ---
H&P: HPI History of Present Illness Date/Time: 03/07/24 20:36 Chief Complaint: abnormal lab work Narrative: This is a 73-year-old with past medical history significant for COPD/emphysema, coronary artery disease, protein calorie malnutrition, chronic hyponatremia, esophageal reflux disease, peripheral neuropathy, thrombocytopenia, lymphocytic esophagitis. Patient lives at rehabilitation facility was brought to the emergency room due to abnormal lab work patient was found to have a sodium of 117. Patient is unable to provide much history that is contributing in a meaningful way. Preliminary workup was significant for chest x-ray with left-sided infiltrate and pleural effusion a repeat chemistry panel showed sodium of 117. Patient has been admitted for further evaluation management and treatment. CHEST RADIOGRAPH CLINICAL HISTORY: AMS, COUGH, WEAKNESS . COMPARISON: 02/21/2024 TECHNIQUE: Single portable view of the chest. FINDINGS Sternal wires and mediastinal clips are identified, the wires are midline and intact. The remainder of the cardiomediastinal silhouette is otherwise unremarkable. Hazy opacification of the left hemithorax, findings consistent with (likely) an early infiltrate along with a left-sided pleural effusion. The right hemithorax is clear. Total prosthetic within the right shoulder IMPRESSION: Early left-sided infiltrate with a large left-sided pleural effusion. PROCEDURE: CT head without contrast. COMPARISON: 02/16/2024 and 07/01/2022 TECHNIQUE: Axial imaging of the head performed from the skull base to the vertex without IV contrast. Sagittal and coronal reformations obtained. DLP: 605 mGy-cm FINDINGS: The ventricles are normal in size, shape and position. There is no mass, mass effect or midline shift. There is no abnormal extra-axial fluid collection or intracranial hemorrhage. Visualized paranasal sinuses are clear. The mastoid air cells are well aerated. No acute displaced fractures within the overlying cranium. Impression: No acute intracranial hemorrhage or suspicious mass effect. Review of Systems Review of Systems: ROS unobtainable: Yes unobtainable due to mental status [facility] Past Medical History Medical History Basal cell carcinoma Closed fracture of right proximal humerus ORIF July 12, 2022 with [place]ño staple device COPD (chronic obstructive pulmonary disease) Coronary artery disease Dr. Mane Dysphonia Frequent falls GERD (gastroesophageal reflux disease) High cholesterol History of thyroid cancer Treated with chemotherapy and radiation Hx of adenomatous colonic polyps Hypertension Hyponatremia Hypothyroidism Lung cancer Status post right upper lobe pneumonectomy Lymphocytic esophagitis Nonerosive esophageal reflux disease Peripheral neuropathy Rectal bleeding Rhabdomyolysis Thrombocytopenia Surgical History Surgical History H/O arthroscopic knee surgery H/O right inguinal hernia repair (08/06/20) Repair of right inguinal hernia with 6 cm Parietex hernia mesh system History of bilateral carpal tunnel release History of colonoscopy History of coronary angioplasty History of esophagogastroduodenoscopy (EGD) 2006 History of hemorrhoidectomy History of left inguinal hernia repair (11/2018) With 8 cm of Parietex mesh dr. Stapleton History of medial meniscus repair of right knee (~2005) History of pneumonectomy (~2014) Right upper lobe due to lung cancer History of ventral hernia repair (~06/2006) Gastric volvulus with ventral hernia repair Hx of CABG (~09/2002) 4 vessel CABG Hx of cholecystectomy S/P ORIF (open reduction internal fixation) fracture Right shoulder 07/12/2022 Status post cataract extraction of both eyes with insertion of intraocular lens (~2015) Status post dilation of esophageal narrowing Family History Family History Mother MVA (motor vehicle accident) Father Gunshot wound Sibling Heart disease Other Family history of cardiovascular disease Social History Social History (Updated 03/07/24 @ 17:50 by Payal Lundberg MD) Social History: He lives alone. He has smoked as much as a pack of cigarettes per day since he was 20 years old. He is now down to 4-5 cigarettes a day. 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 code status full code; POLST is with [place] documentation and signed by 02/02/23 but not dated by patient's brother (although signed by him) Years smoked: 50 Smoking status: Current every day smoker Second hand tobacco smoke exposure: Yes Alcohol intake: former Drinks per week: 7 Alcohol use details: STATES LAST DRINK AUGUST 31, 1984 Substance use: never Substance use type: prescription drug Other substance usage details: hx of oxycodone for pain, currently hydrocodone for pain Do You Feel Safe in your Home?: Yes Lack of Transportation: No Lack of Food: Never True Current Housing: I Have Housing Concerned About Future Housing: No Difficulty Paying Gas/Electric Bills: No Difficulty Paying for Meds: No Currently Unemployed: No Education: Decline to Answer Difficulty w/ Childcare or Family Care: No Living arrangements: alone Additional living arrangements comments: [place] Occupation/Education: retired 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 100 mcg-umeclid 1 inh inhalation DAILY 07/21/20 02/17/24 History 62.5 mcg-vilant 25 mcg inhalat.powder (Trelegy Ellipta) nitroglycerin 400 mcg/spray 1 spray translingual Q5M PRN Chest 07/21/20 02/17/24 History translingual Pain simvastatin 20 mg tablet 20 mg PO DAILY 07/21/20 02/17/24 History ranolazine 500 mg tablet,extended 500 mg PO Q12H 03/22/21 02/17/24 History release,12 hr albuterol sulfate 90 mcg/actuation 1 inh inhalation Q4H PRN Shortness 03/25/21 02/17/24 Rx aerosol inhaler (ProAir HFA) Of Breath Or Wheezing #0 grams alprazolam 1 mg tablet 1 mg PO TID PRN anxiety #90 tabs 02/01/23 02/17/24 Rx ferrous sulfate 325 mg (65 mg 325 mg PO BID #30 tabs 02/22/24 Rx iron) tablet,delayed release fluconazole 100 mg tablet 50 mg PO BID #20 tabs 02/22/24 Rx (Diflucan) Allergies Allergy/AdvReac Type Severity Reaction Status Date / Time atorvastatin AdvReac Mild MADE ME Verified 02/21/24 10:52 SICK methocarbamol AdvReac Mild MADE ME Verified 02/21/24 10:52 SICK terbinafine AdvReac Mild MADE ME Verified 02/21/24 10:52 SICK Vital Signs Vital Signs - 24 hr 03/07/24 15:50 03/07/24 15:56 03/07/24 15:56 Temperature 98.0 F Pulse Rate 61 61 Respiratory Rate 18 Blood Pressure 125/72 Pulse Oximetry 100 100 Oxygen Delivery Nasal Cannula Room Air Oxygen Flow Rate 3 03/07/24 16:16 03/07/24 17:01 03/07/24 17:46 Temperature Pulse Rate 62 63 62 Respiratory Rate 18 13 25 H Blood Pressure 125/86 117/74 129/59 L Pulse Oximetry 95 95 98 Oxygen Delivery Oxygen Flow Rate 03/07/24 18:16 03/07/24 18:16 03/07/24 18:31 Temperature Pulse Rate 61 64 63 Respiratory Rate 16 21 H 26 H Blood Pressure 122/69 122/69 124/64 Pulse Oximetry 99 99 99 Oxygen Delivery Oxygen Flow Rate 03/07/24 19:01 Temperature Pulse Rate 59 L Respiratory Rate 20 Blood Pressure 128/69 Pulse Oximetry 100 Oxygen Delivery Oxygen Flow Rate Exam Narrative: lying in stretcher Const: General: comfortable, no acute distress, well developed, alert, awake, ill appearing chronically and underweight Nutritional Appearance: underweight Orientation/consciousness: oriented to person and oriented to place Other: Dry mucosa HENMT: Head: normal to inspection, normocephalic and atraumatic Ears: hearing grossly normal bilaterally Face/Nose/Sinus: normal facial exam Face and sinus: normal facial exam Eyes: General: appearance normal, both eyes and all related structures Pupils: Equal, round and reactive pupils present EOM: EOMs intact bilaterally Neck: Neck: full ROM, no lymphadenopathy and no JVD Thyroid: thyroid normal Lymphatic: no lymphadenopathy noted Resp: Effort & Inspection: normal respiratory effort, able to speak in complete sentences and no respiratory distress Auscultation: clear to auscultation bilaterally and diminished lung sounds on the left in the lower lung nye Cardio: Jugular venous distension: no JVD Rate: regular rate Rhythm: regular rhythm Heart sounds: S1 normal heart sound present and S2 normal heart sound present GI: GI Palp: Yes Soft to palpation and Yes No hepatosplenomegaly present : General: Yes deferred Skin: Rashes: no rashes Wounds: no wounds Neuro: General: oriented to person, oriented to place, no focal motor deficits, CN's II-XI intact bilaterally and Unable to assess gait Cranial nerves: Yes CN's II-XII intact bilaterally and Yes Equal, round and reactive pupils present Cognition (Neuro): normal cognition Speech: normal speech Gait exam (Neuro): Unable to assess gait Motor exam (neuro): 5/5 motor strength present throughout Extrem: General: normal to inspection, full ROM, no joint enlargement and no pedal edema H&P: Results Labs Labs: Short CBC 03/07/24 Range/Units 16:09 WBC 8.3 (4.5-10.0) K/mm3 Hgb 7.8 L (14.0-18.0) g/dL Hct 22.8 L (42.0-52.0) % Plt Count 208 (150-375) k/mm3 BMP 03/07/24 16:09 Sodium 117 L* Potassium 3.9 Chloride 86 L Carbon Dioxide 25 BUN 6 L Creatinine 0.60 L Glucose 83 Calcium 7.7 L Liver Function 03/07/24 Range/Units 16:09 Total Bilirubin 1.1 (0.2-1.3) mg/dL AST 40 (17-59) U/L ALT 17 (6-50) U/L Alkaline Phosphatase 109 (38-126) U/L Albumin 3.3 L (3.5-5.1) g/dL Urine 03/07/24 Range/Units 16:34 Urine Color Yellow (Yellow) Urine Appearance Cloudy H (Clear) Urine pH 6.5 (5.0-9.0) Ur Specific [place] 1.012 (1.001-1.035) Urine Protein Negative (Negative) mg/dL Urine Glucose (UA) Negative (Negative) mg/dL Assessment and Plan Assessment and plan (1) Hyponatremia: Code(s): E87.1 - Hypo-osmolality and hyponatremia Status: Acute Assessment and Plan: Admit to IMU likely to be multifactorial chloride is 80 patient received NS 2 L in emergency room with up trending of the sodium will continue to monitor with serial BMP (2) Pleural effusion on left: Code(s): J90 - Pleural effusion, not elsewhere classified Status: Acute Assessment and Plan: likely to be a parapneumonic effusion as patient with infiltrate will start on vancomycin Zithromax and cefepime due to recent admission as well patient living in rehabilitation center (3) Pneumonia: Code(s): J18.9 - Pneumonia, unspecified organism Status: Acute Assessment and Plan: blood cultures in progress started vancomycin cefepime and Zithromax (4) Altered mental status: Code(s): R41.82 - Altered mental status, unspecified Status: Acute Assessment and Plan: likely of endocrine metabolic etiology related to hyponatremia (5) Acute hypoxic respiratory failure: Code(s): J96.01 - Acute respiratory failure with hypoxia Status: Acute Assessment and Plan: on supplemental oxygen by nasal cannula (6) GERD (gastroesophageal reflux disease): Code(s): K21.9 - Gastro-esophageal reflux disease without esophagitis Status: Acute Assessment and Plan: PPI (7) COPD (chronic obstructive pulmonary disease): Code(s): J44.9 - Chronic obstructive pulmonary disease, unspecified Status: Acute Assessment and Plan: continue home meds not actively wheezing (8) Protein calorie malnutrition: Code(s): E46 - Unspecified protein-calorie malnutrition Status: Acute Assessment and Plan: liberalize diet (9) Tobacco dependence: Code(s): F17.200 - Nicotine dependence, unspecified, uncomplicated Status: Acute Assessment and Plan: nicotine patch as needed (10) Normocytic anemia: Code(s): D64.9 - Anemia, unspecified Status: Acute Assessment and Plan: continue to monitor Hospitalist MIPS Advance Care Plan I have confirmed that the patient's Advanced Care Plan is present, code status is documented, or surrogate decision maker is listed in patient medical record.: Yes Medication Reconciliation I have utilized all available resources to obtain, update and review the patients current medications (includes all prescriptions, OTC, herbals, cannabis, and nutritional supplements).: Yes
--- NOTE | 2024-03-07 21:18 | PC.NURSE ---
RN from [facility] updated on pt's status and that he will be admitted.
[2024-03-07 21:50] LABS: Anion Gap 4 mmol/L (4-12); Blood Urea Nitrogen 5 mg/dL (9-20); Calcium 7.2 mg/dL (8.4-10.2); Carbon Dioxide 24 mmol/L (22-30); Chloride 90 mmol/L (98-107); Estimated CRCL calculation 97 ml/min; Estimated Glomerular Filt Rate > 60; Glucose 76 mg/dL (65-110); Potassium 3.5 mmol/L (3.4-5.0); Sodium 118 mmol/L (137-145)
[2024-03-07] MEDS: AZITHROMYCIN 500 MG/NS 250 ML 500 MG/250 ML BAG 250 MG IVPB (23:13)
[2024-03-07] MEDS: CEFEPIME 1 GM/NS 50 ML 1 GM/50 ML BAG IVPB (23:15)
[2024-03-08] VITALS (17 sets, daily range): BP systolic 88–142; BP diastolic 47–69; PULSE 62–88; RESP 18–24; TEMP 36.3–36.9; O2SAT 95–100; BMI 20.2
[2024-03-08] MEDS: VANCOMYCIN 1,500 MG/NS 500 ML 1,500 MG/500 ML BAG 250 MG IVPB (00:50)
[2024-03-08 03:27] LABS: Sodium 121 mmol/L (137-145)
[2024-03-08 03:42] LABS: Estimated CRCL calculation 102 ml/min; Estimated Glomerular Filt Rate > 60
[2024-03-08 07:32] LABS: Anion Gap 7 mmol/L (4-12); Blood Urea Nitrogen 6 mg/dL (9-20); Calcium 7.8 mg/dL (8.4-10.2); Carbon Dioxide 24 mmol/L (22-30); Chloride 91 mmol/L (98-107); Estimated CRCL calculation 102 ml/min; Estimated Glomerular Filt Rate > 60; Glucose 73 mg/dL (65-110); Sodium 122 mmol/L (137-145)
[2024-03-08 08:10] LABS: MRSA (PCR) NOT DETECTED (NOT DETECTE)
--- NOTE | 2024-03-08 08:37 | PM.IMPN ---
Progress Note: A&P Assessment and Plan (1) Hyponatremia: Code(s): E87.1 - Hypo-osmolality and hyponatremia Status: Acute Assessment and Plan: likely to be multifactorial- appears to be chronic chloride is 80 patient received NS 2 L in emergency room with up trending of the sodium will continue to monitor with serial BMP (2) Pleural effusion on left: Code(s): J90 - Pleural effusion, not elsewhere classified Status: Acute Assessment and Plan: likely to be a parapneumonic effusion as patient with infiltrate will start on vancomycin Zithromax and cefepime due to recent admission as well patient living in rehabilitation center 03/08- mrsa swab neg- stop vanc- downgrade to PO zithromax-- continue cefepime iv antibiotics (3) Pneumonia: Code(s): J18.9 - Pneumonia, unspecified organism Status: Acute Assessment and Plan: blood cultures in progress started vancomycin cefepime and Zithromax see antibiotic plan above (4) Altered mental status: Code(s): R41.82 - Altered mental status, unspecified Status: Acute Assessment and Plan: likely of endocrine metabolic etiology related to hyponatremia (5) Acute hypoxic respiratory failure: Code(s): J96.01 - Acute respiratory failure with hypoxia Status: Acute Assessment and Plan: on supplemental oxygen by nasal cannula (6) GERD (gastroesophageal reflux disease): Code(s): K21.9 - Gastro-esophageal reflux disease without esophagitis Status: Acute Assessment and Plan: PPI (7) COPD (chronic obstructive pulmonary disease): Code(s): J44.9 - Chronic obstructive pulmonary disease, unspecified Status: Acute Assessment and Plan: continue home meds not actively wheezing (8) Protein calorie malnutrition: Code(s): E46 - Unspecified protein-calorie malnutrition Status: Acute Assessment and Plan: liberalize diet (9) Tobacco dependence: Code(s): F17.200 - Nicotine dependence, unspecified, uncomplicated Status: Acute Assessment and Plan: nicotine patch as needed (10) Normocytic anemia: Code(s): D64.9 - Anemia, unspecified Status: Acute Assessment and Plan: continue to monitor (11) Hypothyroidism: Code(s): E03.9 - Hypothyroidism, unspecified Status: Acute Assessment and Plan: h/o thyroid ca, s/p chemo,radiation - levothyroxine 175 mcg urrently tsh 60- repeated 58, low t4 - will increase dose to 200 mcg- will need an outpt f/u with repeated TSH in 6-8 months Time Spent With Patient Time with patient: Greater than 35 minutes Subjective Date/time seen: 03/08/24 08:37 Interval history: Retrieved from H/P: This is a 73-year-old with past medical history significant for COPD/emphysema, coronary artery disease, protein calorie malnutrition, chronic hyponatremia, esophageal reflux disease, peripheral neuropathy, thrombocytopenia, lymphocytic esophagitis. Patient lives at rehabilitation facility was brought to the emergency room due to abnormal lab work patient was found to have a sodium of 117. Patient is unable to provide much history that is contributing in a meaningful way. Preliminary workup was significant for chest x-ray with left-sided infiltrate and pleural effusion a repeat chemistry panel showed sodium of 117. Patient has been admitted for further evaluation management and treatment. 03/08- pt is seen and examined. he is confused, thinks he is at his son house, but re-directable and cooperative, Denies any pain. 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 Review of Systems Review of Systems: ROS unobtainable: Yes unobtainable due to mental status Exam Narrative: lying in stretcher Const: General: comfortable, no acute distress, well developed, alert, awake, ill appearing chronically, average body habitus and underweight Nutritional Appearance: average body habitus and underweight Orientation/consciousness: oriented to person, oriented to place and patient oriented x3 Other: Dry mucosa HENMT: Head: normal to inspection, normocephalic and atraumatic Ears: hearing grossly normal bilaterally Face/Nose/Sinus: normal facial exam Face and sinus: normal facial exam Eyes: General: appearance normal, both eyes and all related structures Pupils: Equal, round and reactive pupils present EOM: EOMs intact bilaterally Neck: Neck: full ROM, no lymphadenopathy and no JVD Thyroid: thyroid normal Lymphatic: no lymphadenopathy noted Resp: Effort & Inspection: normal respiratory effort, able to speak in complete sentences and no respiratory distress Auscultation: clear to auscultation bilaterally and diminished lung sounds on the left in the lower lung nye Cardio: Jugular venous distension: no JVD Rate: regular rate Rhythm: regular rhythm Heart sounds: S1 normal heart sound present and S2 normal heart sound present : General: Yes deferred Skin: Rashes: no rashes Wounds: no wounds Neuro: General: oriented to person, oriented to place, patient oriented x3, no focal motor deficits, CN's II-XI intact bilaterally and Unable to assess gait Cranial nerves: Yes CN's II-XII intact bilaterally and Yes Equal, round and reactive pupils present Cognition (Neuro): normal cognition Speech: normal speech Gait exam (Neuro): Normal gait present and Unable to assess gait Motor exam (neuro): 5/5 motor strength present throughout Extrem: General: normal to inspection, full ROM, no joint enlargement and no pedal edema Objective Data Vital Signs Vital Signs: Vital Signs - 24 hr 03/07/24 15:50 03/07/24 15:56 03/07/24 15:56 Temperature 98.0 F Pulse Rate 61 61 Respiratory Rate 18 Blood Pressure 125/72 Pulse Oximetry 100 100 Oxygen Delivery Nasal Cannula Room Air Oxygen Flow Rate 3 03/07/24 16:16 03/07/24 17:01 03/07/24 17:46 Temperature Pulse Rate 62 63 62 Respiratory Rate 18 13 25 H Blood Pressure 125/86 117/74 129/59 L Pulse Oximetry 95 95 98 Oxygen Delivery Oxygen Flow Rate 03/07/24 18:16 03/07/24 18:16 03/07/24 18:31 Temperature Pulse Rate 61 64 63 Respiratory Rate 16 21 H 26 H Blood Pressure 122/69 122/69 124/64 Pulse Oximetry 99 99 99 Oxygen Delivery Oxygen Flow Rate 03/07/24 19:01 03/07/24 20:52 03/07/24 21:35 Temperature 97.8 F Pulse Rate 59 L 61 61 Respiratory Rate 20 19 24 H Blood Pressure 128/69 134/68 131/71 Pulse Oximetry 100 98 100 Oxygen Delivery Oxygen Flow Rate 03/08/24 00:00 03/07/24 22:00 03/08/24 00:00 Temperature 98.5 F Pulse Rate 62 60 62 Respiratory Rate 22 H Blood Pressure 122/62 Pulse Oximetry 98 Oxygen Delivery Oxygen Flow Rate 03/08/24 00:00 03/08/24 04:00 03/08/24 02:00 Temperature Pulse Rate 67 Respiratory Rate Blood Pressure Pulse Oximetry 98 100 Oxygen Delivery Nasal Cannula Nasal Cannula Oxygen Flow Rate 2 2 03/08/24 04:00 03/08/24 06:00 03/08/24 04:00 Temperature 98.1 F Pulse Rate 65 69 66 Respiratory Rate 22 H Blood Pressure 113/66 Pulse Oximetry 100 Oxygen Delivery Oxygen Flow Rate Intake/Output Intake/Output: Intake & Output 03/05/24 03/06/24 03/07/24 03/08/24 23:59 23:59 23:59 23:59 Intake Total 2050 250 Output Total 300 600 Balance 1750 -350 Meds/Results Medications: Active Medications Generic Name Dose Route Start Last Admin Trade Name Freq PRN Reason Stop Dose Admin Acetaminophen 1,000 mg 03/07/24 21:38 Acetaminophen 500 Mg Tablet PO Q6H PRN Mild Pain (1-3) or Fever Al Hydrox/Mg Hydrox/Simethicone 30 ml 03/07/24 21:44 Mag Hydrox/Al Hydrox/Simeth 30 Ml Udc PO Q6H PRN Indigestion Azithromycin 500 mg in 250 mls @ 250 mls/hr 03/07/24 22:00 03/08/24 00:13 Zithromax IVPB Infused Q24H CARYL Infusion Cefepime HCl 1 gm in 50 mls @ 100 mls/hr 03/07/24 22:00 03/07/24 23:45 Maxipime 1 Gm/Ns 50 Ml IVPB Infused Q12H CARYL Infusion Vancomycin HCl 1,250 mg in 250 mls @ 166.667 mls/hr 03/08/24 12:00 Vancomycin 1,250 Mg/Ns 250 Ml IVPB Q12H CARYL Ondansetron HCl 4 mg 03/07/24 20:36 Ondansetron Inj 4 Mg/2 Ml Vial IV PUSH Q4H PRN Nausea Polyethylene Glycol 17 gm 03/07/24 21:44 Polyethylene Glycol 3350 17 Gm Powd.Pack PO QAM PRN Constipation Radiology Results: ITS Impressions Chest X-Ray 03/07/24 19:04 IMPRESSION: Early left-sided infiltrate with a large left-sided pleural effusion. Head CT 03/07/24 19:52 Impression: No acute intracranial hemorrhage or suspicious mass effect. Labs Labs: Laboratory Results - last 24 hr 03/07/24 03/07/24 03/07/24 16:09 16:34 21:30 WBC 8.3 RBC 2.73 L Hgb 7.8 L Hct 22.8 L MCV 83.5 MCH 28.6 MCHC 34.2 RDW 18.0 H Plt Count 208 MPV 8.6 Immature Gran % (Auto) 1.1 H Neut % (Auto) 81.0 H Lymph % (Auto) 7.7 L [place] % (Auto) 9.9 H Eos % (Auto) 0.1 Baso % (Auto) 0.2 Lymph # (Auto) 0.64 L [place] # (Auto) 0.8 H Eos # (Auto) 0.0 Baso # (Auto) 0.0 Abs Immat Gran (auto) 0.09 H Absolute Neuts (auto) 6.7 Absolute Nucleated RBC 0.000 Nucleated RBC % 0.0 PT 13.6 INR 1.0 APTT 39.3 H Sodium 117 L* 118 L* Potassium 3.9 3.5 Chloride 86 L 90 L Carbon Dioxide 25 24 Anion Gap 6 4 BUN 6 L 5 L Creatinine 0.60 L 0.50 L Estim Creat Clear Calc 82 97 Estimated GFR > 60 > 60 Glucose 83 76 Calcium 7.7 L 7.2 L Magnesium 2.0 Total Bilirubin 1.1 AST 40 ALT 17 Alkaline Phosphatase 109 NT-Pro-B Natriuret Pep 784 H Total Protein 6.0 L Albumin 3.3 L TSH 60.200 H Urine Color Yellow Urine Appearance Cloudy H Urine pH 6.5 Ur Specific [place] 1.012 Urine Protein Negative Urine Glucose (UA) Negative Urine Ketones Negative Ur Blood (Man) Negative Urine Nitrate Positive H Urine Bilirubin Negative Urine Urobilinogen 1.0 Leukocyte Esterase Rfl Negative Urine RBC 0-2 Urine WBC 0-5 Ur Squamous Epith Cells None seen Urine Bacteria 4+ H Urine Casts 0-2 Nasal MRSA (PCR) 03/08/24 03/08/24 03/08/24 02:40 06:34 07:17 WBC RBC Hgb Hct MCV MCH MCHC RDW Plt Count MPV Immature Gran % (Auto) Neut % (Auto) Lymph % (Auto) [place] % (Auto) Eos % (Auto) Baso % (Auto) Lymph # (Auto) [place] # (Auto) Eos # (Auto) Baso # (Auto) Abs Immat Gran (auto) Absolute Neuts (auto) Absolute Nucleated RBC Nucleated RBC % PT INR APTT Sodium 121 L 122 L Potassium 4.0 Chloride 91 L Carbon Dioxide 24 Anion Gap 7 BUN 6 L Creatinine 0.50 L 0.50 L Estim Creat Clear Calc 102 102 Estimated GFR > 60 > 60 Glucose 73 Calcium 7.8 L Magnesium Total Bilirubin AST ALT Alkaline Phosphatase NT-Pro-B Natriuret Pep Total Protein Albumin TSH Urine Color Urine Appearance Urine pH Ur Specific [place] Urine Protein Urine Glucose (UA) Urine Ketones Ur Blood (Man) Urine Nitrate Urine Bilirubin Urine Urobilinogen Leukocyte Esterase Rfl Urine RBC Urine WBC Ur Squamous Epith Cells Urine Bacteria Urine Casts Nasal MRSA (PCR) Not detected Quality VTE Prophylaxis VTE prophylaxis: mechanical ordered
[2024-03-08] MEDS: CEFEPIME 2 GM/NS 50 ML 2 GM/50 ML BAG IVPB ×2 (10:28→22:04)
[2024-03-08 11:27] LABS: Free T4 Free Thyroxine Reflex 0.45 ng/dL (0.78-2.19)
--- NOTE | 2024-03-08 13:25 | P.CONNP_ITS ---
History of Present Illness Reason for Consult Consult date: 03/08/24 Chief Complaint Chief complaint: Hyponatremia, Pleural effusion Review of Systems Review of Systems: As per HPI. [facility] Past Medical History Medical History Basal cell carcinoma Closed fracture of right proximal humerus ORIF July 12, 2022 with [place] staple device COPD (chronic obstructive pulmonary disease) Coronary artery disease Dr. Mane Dysphonia Frequent falls GERD (gastroesophageal reflux disease) High cholesterol History of thyroid cancer Treated with chemotherapy and radiation Hx of adenomatous colonic polyps Hypertension Hyponatremia Hypothyroidism Lung cancer Status post right upper lobe pneumonectomy Lymphocytic esophagitis Nonerosive esophageal reflux disease Peripheral neuropathy Rectal bleeding Rhabdomyolysis Thrombocytopenia Surgical History Surgical History H/O arthroscopic knee surgery H/O right inguinal hernia repair (08/06/20) Repair of right inguinal hernia with 6 cm Parietex hernia mesh system History of bilateral carpal tunnel release History of colonoscopy History of coronary angioplasty History of esophagogastroduodenoscopy (EGD) 2006 History of hemorrhoidectomy History of left inguinal hernia repair (11/2018) With 8 cm of Pari[address]ex mesh dr. Stapleton History of medial meniscus repair of right knee (~2005) History of pneumonectomy (~2014) Right upper lobe due to lung cancer History of ventral hernia repair (~06/2006) Gastric volvulus with ventral hernia repair Hx of CABG (~09/2002) 4 vessel CABG Hx of cholecystectomy S/P ORIF (open reduction internal fixation) fracture Right shoulder 07/12/2022 Status post cataract extraction of both eyes with insertion of intraocular lens (~2015) Status post dilation of esophageal narrowing Family History Family History Mother MVA (motor vehicle accident) Father Gunshot wound Sibling Heart disease Other Family history of cardiovascular disease Social History Social History (Updated 03/07/24 @ 17:50 by Payal Lundberg MD) Social History: He lives alone. He has smoked as much as a pack of cigarettes per day since he was 20 years old. He is now down to 4-5 cigarettes a day. 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 code status full code; JAIME is with MS documentation and signed by 02/02/23 but not dated by patient's brother (although signed by him) Years smoked: 50 Smoking status: Current every day smoker Second hand tobacco smoke exposure: Yes Alcohol intake: former Drinks per week: 7 Alcohol use details: STATES LAST DRINK AUGUST 31, 1984 Substance use: never Substance use type: prescription drug Other substance usage details: hx of oxycodone for pain, currently hydrocodone for pain Do You Feel Safe in your Home?: Yes Lack of Transportation: No Lack of Food: Never True Current Housing: I Have Housing Concerned About Future Housing: No Difficulty Paying Gas/Electric Bills: No Difficulty Paying for Meds: No Currently Unemployed: No Education: Decline to Answer Difficulty w/ Childcare or Family Care: No Living arrangements: alone Additional living arrangements comments: [place] Occupation/Education: retired 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/education 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 Gender identity (if verbalized by the patient): Male Sexual Orientation (if Verbalized by the Patient): Straight or Heterosexual Spiritual care concerns: No Meds Home Medications and Allergies Home Medications Medication Instructions Recorded Confirmed Type baclofen 10 mg tablet 5 mg PO TID PRN muscle spasms 07/21/20 03/08/24 History escitalopram oxalate 20 mg tablet 20 mg PO HS 07/21/20 03/08/24 History nitroglycerin 400 mcg/spray 1 spray translingual Q5M PRN Chest 07/21/20 03/08/24 History translingual Pain simvastatin 20 mg tablet 20 mg PO DAILY 07/21/20 03/08/24 History ranolazine 500 mg tablet,extended 500 mg PO Q12H 03/22/21 03/08/24 History release,12 hr alprazolam 1 mg tablet 1 mg PO TID PRN anxiety #90 tabs 02/01/23 03/08/24 Rx Mucinex 600 mg PO BID 03/08/24 03/08/24 History Niferex 1 tablet PO BID 03/08/24 03/08/24 History acetaminophen 650 mg PO Q6H PRN Pain 03/08/24 03/08/24 History albuterol sulfate See Rx Instructions .Route 03/08/24 03/08/24 History .COMPLEX PRN Shortness Of Breath benzonatate 100 mg PO TID PRN Cough 03/08/24 03/08/24 History fluticasone fur. 100 mcg-umeclid 1 inh inhalation DAILY 03/08/24 03/08/24 History 62.5 mcg-vilant 25 mcg inhalat.powder (Trelegy Ellipta) fluticasone fur. 100 mcg-umeclid 1 inh inhalation DAILY 03/08/24 03/08/24 History 62.5 mcg-vilant 25 mcg inhalat.powder (Trelegy Ellipta) ipratropium-albuterol 1 vial inhalation TID 03/08/24 03/08/24 History levothyroxine 175 mcg tablet 175 mcg PO DAILY 03/08/24 03/08/24 History omeprazole 40 mg PO BID 03/08/24 03/08/24 History potassium chloride 20 meq PO DAILY 03/08/24 03/08/24 History sodium chloride 1,000 mg PO TID 03/08/24 03/08/24 History Allergies Allergy/AdvReac Type Severity Reaction Status Date / Time atorvastatin AdvReac Mild MADE ME Verified 02/21/24 10:52 SICK methocarbamol AdvReac Mild MADE ME Verified 02/21/24 10:52 SICK terbinafine AdvReac Mild MADE ME Verified 02/21/24 10:52 SICK Vital Signs Vital Signs Temp Pulse Resp BP Pulse Ox O2 Del Method O2 Flow Rate 03/08/24 12:00 96 Nasal Cannula 2 03/08/24 12:00 97.6 F 88 22 H 88/47 L 96 03/08/24 10:00 65 03/08/24 08:00 100 Nasal Cannula 2 03/08/24 08:00 71 03/08/24 08:00 98.1 F 66 22 H 142/69 H 100 03/08/24 04:00 98.1 F 66 22 H 113/66 100 03/08/24 06:00 69 03/08/24 04:00 65 03/08/24 02:00 67 03/08/24 04:00 100 Nasal Cannula 2 03/08/24 00:00 98 Nasal Cannula 2 03/08/24 00:00 62 03/07/24 22:00 60 03/08/24 00:00 98.5 F 62 22 H 122/62 98 03/07/24 21:35 97.8 F 61 24 H 131/71 100 03/07/24 20:52 61 19 134/68 98 03/07/24 19:01 59 L 20 128/69 100 03/07/24 18:31 63 26 H 124/64 99 03/07/24 18:16 64 21 H 122/69 99 03/07/24 18:16 61 16 122/69 99 03/07/24 17:46 62 25 H 129/59 L 98 03/07/24 17:01 63 13 117/74 95 Exam Narrative: GENERAL APPEARANCE: thin and cachetic male in no acute distress HEENT: normocephalic, atraumatic, normal conjunctiva and sclera, nares patient NECK: no lymphadenopathy, thyromegaly, or JVD MOUTH: normal lips, teeth, and gums CARDIOVASCULAR: RRR, normal S1 and S2, no rub detected RESPIRATORY: coarse breath sounds ABDOMEN: soft, nontender, nondistended, positive bowel sounds present EXTREMITIES: no evidence of cyanosis, clubbing, or edema NEUROLOGICAL: alert and oriented x 3; CN II - XII intact bilaterally; no focal deficits noted Results Lab Results 03/07/24 16:09 03/08/24 16:08 Lab results: Most recent lab results Calcium 7.8 mg/dL (8.4-10.2) L 03/08/24 07:17 Magnesium 2.0 mg/dL (1.6-2.3) 03/07/24 16:09
[2024-03-08 16:18] LABS: Sodium 121 mmol/L (137-145)
[2024-03-08] MEDS: SODIUM CHLORIDE 1 GM TABLET PO (18:07)
[2024-03-08] MEDS: ALBUTEROL SULFATE NEB 2.5 MG/3 ML INH INHALATION (20:55)
[2024-03-08 21:51] LABS: Sodium 122 mmol/L (137-145)
[2024-03-08] MEDS: RANOLAZINE 500 MG TAB.ER.12H PO (22:04)
[2024-03-08] MEDS: AZITHROMYCIN 250 MG TABLET 500 MG PO (22:04)
[2024-03-08] MEDS: guaiFENesin 12 HR 600 MG TABCR PO (22:05)
[2024-03-09] VITALS (24 sets, daily range): BP systolic 93–117; BP diastolic 59–79; PULSE 59–87; RESP 18–26; TEMP 36.1–37.2; O2SAT 94–100
[2024-03-09] MEDS: SODIUM CHLORIDE 0.9% IV 1,000 ML 75 ML IV CONT (00:10)
[2024-03-09] MEDS: IPRATROPIUM 0.5 MG/ALBUTEROL SULFATE 2.5 MG AMPUL.NEB 3 ML INHALATION ×4 (02:56→20:55)
[2024-03-09 03:19] LABS: Total Protein Urine Random 14 mg/dL; Urea Random Urine 442 MG/DL
[2024-03-09 03:20] LABS: Creatinine Urine 67.7 mg/dL; Total Protein Urine Random 13 mg/dL; Ur Ttl Prot Creatinine Ratio 0.19 mg/mg (0-0.20)
[2024-03-09 04:04] LABS: Creatinine Urine 66.8 mg/dL
[2024-03-09 04:12] LABS: Sodium Urine Random 95 meq/L
[2024-03-09 05:11] LABS: Hematocrit 23.6 % (42.0-52.0); Hemoglobin 7.8 g/dL (14.0-18.0); Mean Corpuscular HGB Conc 33.1 g/dl (32-36); Mean Corpuscular Hemoglobin 28.1 pg (26-34); Mean Corpuscular Volume 84.9 fl (80-100); Mean Platelet Volume 9.2 fl (7.4-10.4); Platelet Count Result 231 k/mm3 (150-375); Red Blood Count 2.78 M/mm3 (4.6-6.20); Red Cell Distribution Width 17.8 % (11.5-14.5); White Blood Count 8.3 K/mm3 (4.5-10.0)
[2024-03-09 05:32] LABS: Anion Gap 5 mmol/L (4-12); Blood Urea Nitrogen 6 mg/dL (9-20); Carbon Dioxide 26 mmol/L (22-30); Chloride 91 mmol/L (98-107); Estimated CRCL calculation 101 ml/min; Estimated Glomerular Filt Rate > 60; Glucose 82 mg/dL (65-110); Potassium 3.4 mmol/L (3.4-5.0); Sodium 122 mmol/L (137-145)
[2024-03-09] MEDS: CEFEPIME 2 GM/NS 50 ML 2 GM/50 ML BAG IVPB ×2 (08:28→20:28)
[2024-03-09] MEDS: RANOLAZINE 500 MG TAB.ER.12H PO ×2 (08:31→20:28)
[2024-03-09] MEDS: guaiFENesin 12 HR 600 MG TABCR PO (08:31)
[2024-03-09] MEDS: SIMVASTATIN 20 MG TABLET PO (08:31)
[2024-03-09] MEDS: SODIUM CHLORIDE 1 GM TABLET PO ×3 (08:31→16:47)
[2024-03-09] MEDS: FLUTICASONE/UMECLIDIN/VILANTER 100-62.5-25 MCG ELLIPTA 1 PUFF INHALATION (08:40)
--- NOTE | 2024-03-09 09:18 | P.PNIM_ITS ---
Progress Note: A&P Assessment and Plan (1) Hyponatremia: Code(s): E87.1 - Hypo-osmolality and hyponatremia Status: Acute Assessment and Plan: likely to be multifactorial- appears to be chronic chloride is 80 patient received NS 2 L in emergency room with up trending of the sodium will continue to monitor with serial BMP -nephrology consulted- appreciate recommendations (2) Pleural effusion on left: Code(s): J90 - Pleural effusion, not elsewhere classified Status: Acute Assessment and Plan: likely to be a parapneumonic effusion as patient with infiltrate will start on vancomycin Zithromax and cefepime due to recent admission as well patient living in rehabilitation center 03/08- mrsa swab neg- stop vanc- downgrade to PO zithromax-- continue cefepime iv antibiotics 03/09- pt is very congested- unable to follow instructions and clear airway well - will order CPT -continue to encourage cought/deep breathing - pt/ot- out of bed-ambulate with assistance- pt is high fall risk (3) Pneumonia: Code(s): J18.9 - Pneumonia, unspecified organism Status: Acute Assessment and Plan: blood cultures in progress was started vancomycin cefepime and Zithromax but downgraded to cefepime and azithromycin see antibiotic plan above (4) Altered mental status: Code(s): R41.82 - Altered mental status, unspecified Status: Acute Assessment and Plan: likely of endocrine metabolic etiology related to hyponatremia (5) Acute hypoxic respiratory failure: Code(s): J96.01 - Acute respiratory failure with hypoxia Status: Acute Assessment and Plan: on supplemental oxygen by nasal cannula (6) GERD (gastroesophageal reflux disease): Code(s): K21.9 - Gastro-esophageal reflux disease without esophagitis Status: Acute Assessment and Plan: PPI (7) COPD (chronic obstructive pulmonary disease): Code(s): J44.9 - Chronic obstructive pulmonary disease, unspecified Status: Acute Assessment and Plan: continue home meds not actively wheezing - encouraged IS if able to follow instructions out of bed for meals work with pt/ot (8) Protein calorie malnutrition: Code(s): E46 - Unspecified protein-calorie malnutrition Status: Acute Assessment and Plan: liberalize diet (9) Tobacco dependence: Code(s): F17.200 - Nicotine dependence, unspecified, uncomplicated Status: Acute Assessment and Plan: nicotine patch as needed (10) Normocytic anemia: Code(s): D64.9 - Anemia, unspecified Status: Acute Assessment and Plan: continue to monitor (11) Hypothyroidism: Code(s): E03.9 - Hypothyroidism, unspecified Status: Acute Assessment and Plan: h/o thyroid ca, s/p chemo,radiation - levothyroxine 175 mcg urrently tsh 60- repeated 58, low t4 - will increase dose to 200 mcg- will need an outpt f/u with repeated TSH in 6-8 months Time Spent With Patient Time with patient: Greater than 35 minutes Subjective Date/time seen: 03/09/24 09:18 Interval history: Retrieved from H/P: This is a 73-year-old with past medical history significant for COPD/emphysema, coronary artery disease, protein calorie malnutrition, chronic hyponatremia, esophageal reflux disease, peripheral neuropathy, thrombocytopenia, lymphocytic esophagitis. Patient lives at rehabilitation facility was brought to the emergency room due to abnormal lab work patient was found to have a sodium of 117. Patient is unable to provide much history that is contributing in a meaningful way. Preliminary workup was significant for chest x-ray with left-sided infiltrate and pleural effusion a repeat chemistry panel showed sodium of 117. Patient has been admitted for further evaluation management and treatment. 03/08- pt is seen and examined. he is confused, thinks he is at his son house, but re-directable and cooperative, Denies any pain. 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 03/09- pt is seen and examined. Na stable. Nephrology following Review of Systems Review of Systems: ROS unobtainable: Yes unobtainable due to mental status Exam Narrative: lying in stretcher Const: General: comfortable, no acute distress, well developed, alert, awake, ill appearing chronically, average body habitus and underweight Nutritional Appearance: average body habitus and underweight Orientation/consciousness: oriented to person, oriented to place and patient oriented x3 Other: Dry mucosa HENMT: Head: normal to inspection, normocephalic and atraumatic Ears: hearing grossly normal bilaterally Face/Nose/Sinus: normal facial exam Face and sinus: normal facial exam Eyes: General: appearance normal, both eyes and all related structures Pupils: Equal, round and reactive pupils present EOM: EOMs intact bilaterally Neck: Neck: full ROM, no lymphadenopathy and no JVD Thyroid: thyroid normal Lymphatic: no lymphadenopathy noted Resp: Effort & Inspection: normal respiratory effort, able to speak in complete sentences and no respiratory distress Auscultation: clear to auscultation bilaterally and diminished lung sounds on the left in the lower lung nye Cardio: Jugular venous distension: no JVD Rate: regular rate Rhythm: regular rhythm Heart sounds: S1 normal heart sound present and S2 normal heart sound present : General: Yes deferred Skin: Rashes: no rashes Wounds: no wounds Neuro: General: oriented to person, oriented to place, patient oriented x3, no focal motor deficits, CN's II-XI intact bilaterally and Unable to assess gait Cranial nerves: Yes CN's II-XII intact bilaterally and Yes Equal, round and reactive pupils present Cognition (Neuro): normal cognition Speech: normal speech Gait exam (Neuro): Normal gait present and Unable to assess gait Motor exam (neuro): 5/5 motor strength present throughout Extrem: General: normal to inspection, full ROM, no joint enlargement and no pedal edema Objective Data Vital Signs Vital Signs: Vital Signs - 24 hr 03/08/24 10:00 03/08/24 12:00 03/08/24 12:00 Temperature 97.6 F Pulse Rate 65 88 Respiratory Rate 22 H Blood Pressure 88/47 L Pulse Oximetry 96 96 Oxygen Delivery Nasal Cannula Oxygen Flow Rate 2 03/08/24 12:00 03/08/24 14:00 03/08/24 16:34 Temperature Pulse Rate 66 67 Respiratory Rate Blood Pressure Pulse Oximetry 95 Oxygen Delivery Nasal Cannula Oxygen Flow Rate 2 03/08/24 16:00 03/08/24 16:00 03/08/24 16:00 Temperature 97.4 F L Pulse Rate 65 66 Respiratory Rate 24 H Blood Pressure 111/56 L Pulse Oximetry 98 100 Oxygen Delivery Nasal Cannula Oxygen Flow Rate 2 03/08/24 18:00 03/08/24 20:30 03/08/24 20:56 Temperature 97.4 F L Pulse Rate 62 71 66 Respiratory Rate 24 H 18 Blood Pressure 113/64 Pulse Oximetry 97 Oxygen Delivery Oxygen Flow Rate 03/08/24 20:00 03/08/24 20:00 03/08/24 22:00 Temperature Pulse Rate 64 66 66 Respiratory Rate 18 Blood Pressure Pulse Oximetry 97 Oxygen Delivery Nasal Cannula Oxygen Flow Rate 2 03/09/24 00:00 03/09/24 00:00 03/09/24 02:00 Temperature 97.6 F Pulse Rate 69 67 Respiratory Rate 24 H 24 H Blood Pressure 117/74 Pulse Oximetry 96 100 Oxygen Delivery Nasal Cannula Oxygen Flow Rate 2 03/09/24 02:57 03/09/24 03:07 03/08/24 21:06 Temperature Pulse Rate 71 74 68 Respiratory Rate 18 18 18 Blood Pressure Pulse Oximetry Oxygen Delivery Oxygen Flow Rate 03/09/24 04:00 03/09/24 04:00 03/09/24 04:15 Temperature 97.7 F Pulse Rate 73 70 68 Respiratory Rate 18 24 H Blood Pressure 112/62 Pulse Oximetry 96 100 Oxygen Delivery Nasal Cannula Oxygen Flow Rate 2 03/08/24 20:55 03/09/24 05:54 03/09/24 07:22 Temperature 98.9 F Pulse Rate 83 66 Respiratory Rate 18 Blood Pressure 93/63 L Pulse Oximetry 97 100 Oxygen Delivery Nasal Cannula Oxygen Flow Rate 2 Intake/Output Intake/Output: Intake & Output 03/06/24 03/07/24 03/08/24 03/09/24 23:59 23:59 23:59 23:59 Intake Total 2050 1040 Output Total 300 600 0 Balance 1750 440 0 Meds/Results Medications: Active Medications Generic Name Dose Route Start Last Admin Trade Name Freq PRN Reason Stop Dose Admin Acetaminophen 650 mg 03/08/24 11:58 Acetaminophen 325 Mg Tablet BY MOUTH Q6H PRN Pain Al Hydrox/Mg Hydrox/Simethicone 30 ml 03/07/24 21:44 Mag Hydrox/Al Hydrox/Simeth 30 Ml Udc PO Q6H PRN Indigestion Albuterol 2.5 mg 03/08/24 16:08 03/08/24 20:55 Albuterol Sulfate Neb 2.5 Mg/3 Ml Inh INHALATION 2.5 mg Q6HRT PRN Administration Shortness Of Breath Albuterol/Ipratropium 3 ml 03/08/24 20:30 03/09/24 08:18 Ipratropium 0.5 Mg/Albuterol Sulfate 2.5 Mg Ampul.Neb 3 Ml INHALATION 3 ml Q6HRT CARYL Administration Alprazolam 1 mg 03/08/24 15:44 Alprazolam (*Crx) 0.5 Mg Tablet PO TID PRN anxiety Azithromycin 500 mg 03/08/24 21:00 03/08/24 22:04 Azithromycin 250 Mg Tablet PO 03/11/24 21:01 500 mg DAILY@2100 CARYL Administration Baclofen 5 mg 03/08/24 15:44 Baclofen 5 Mg Tablet PO TID PRN muscle spasms Benzonatate 100 mg 03/08/24 11:57 Benzonatate 100 Mg Capsule PO TID PRN Cough Fluticasone/Umeclidinium/Vilanterol 1 puff 03/09/24 08:00 03/09/24 08:40 Fluticasone/Umeclidin/Vilanter 100-62.5-25 Mcg Ellipta INHALATION 1 puff DAILYRT CARYL Administration Guaifenesin 600 mg 03/08/24 21:00 03/09/24 08:31 Guaifenesin 12 Hr 600 Mg Tabcr PO 600 mg Q12HR CARYL Administration Cefepime HCl 2 gm in 50 mls @ 100 mls/hr 03/08/24 10:00 03/09/24 08:28 Maxipime 2 Gm/Ns 50 Ml IVPB 100 mls/hr Q12HR CARYL Administration Sodium Chloride 1,000 mls @ 75 mls/hr 03/08/24 23:35 03/09/24 00:10 Normal Saline Iv IV CONT 75 mls/hr .[id number] CARYL Administration Levothyroxine Sodium 150 mcg 03/09/24 06:30 03/09/24 05:54 Levothyroxine Sodium 150 Mcg Tablet PO Not Given DAILY@0630 [facility] Ondansetron HCl 4 mg 03/07/24 20:36 Ondansetron Inj 4 Mg/2 Ml Vial IV PUSH Q4H PRN Nausea Polyethylene Glycol 17 gm 03/07/24 21:44 Polyethylene Glycol 3350 17 Gm Powd.Pack PO QAM PRN Constipation Ranolazine 500 mg 03/08/24 21:00 03/09/24 08:31 Ranolazine 500 Mg Tab.Er.12h PO 500 mg Q12HR CARYL Administration Simvastatin 20 mg 03/09/24 09:00 03/09/24 08:31 Simvastatin 20 Mg Tablet PO 20 mg DAILY CARYL Administration Sodium Chloride 1 gm 03/08/24 17:00 03/09/24 08:31 Sodium Chloride 1 Gm Tablet PO 1 gm TID CARYL Administration Radiology Results: ITS Impressions Chest X-Ray 03/07/24 19:04 IMPRESSION: Early left-sided infiltrate with a large left-sided pleural effusion. Head CT 03/07/24 19:52 Impression: No acute intracranial hemorrhage or suspicious mass effect. Labs Labs: Laboratory Results - last 24 hr 03/08/24 03/08/24 03/08/24 02:37 16:08 21:36 WBC RBC Hgb Hct MCV MCH MCHC RDW Plt Count MPV Sodium 121 L 122 L Potassium Chloride Carbon Dioxide Anion Gap BUN Creatinine Estim Creat Clear Calc Estimated GFR Glucose Calcium TSH (Reflex) 58.300 H Free T4 0.45 L U Random Total Protein Ur Random Sodium Ur Random Urea Urine Creatinine Protein/Creat Ratio 2 03/09/24 03/09/24 03/09/24 03:00 03:00 03:00 WBC RBC Hgb Hct MCV MCH MCHC RDW Plt Count MPV Sodium Potassium Chloride Carbon Dioxide Anion Gap BUN Creatinine Estim Creat Clear Calc Estimated GFR Glucose Calcium TSH (Reflex) Free T4 U Random Total Protein 13 14 Ur Random Sodium 95 Ur Random Urea 442 Urine Creatinine 67.7 66.8 Protein/Creat Ratio 2 0.19 03/09/24 04:22 WBC 8.3 RBC 2.78 L Hgb 7.8 L Hct 23.6 L MCV 84.9 MCH 28.1 MCHC 33.1 RDW 17.8 H Plt Count 231 MPV 9.2 Sodium 122 L Potassium 3.4 Chloride 91 L Carbon Dioxide 26 Anion Gap 5 BUN 6 L Creatinine 0.50 L Estim Creat Clear Calc 101 Estimated GFR > 60 Glucose 82 Calcium 8.0 L TSH (Reflex) Free T4 U Random Total Protein Ur Random Sodium Ur Random Urea Urine Creatinine Protein/Creat Ratio 2 Quality VTE Prophylaxis VTE prophylaxis: mechanical ordered
--- NOTE | 2024-03-09 10:24 | P.PNNP_ITS ---
Progress Note: A&P Assessment and Plan (1) Hyponatremia: Code(s): E87.1 - Hypo-osmolality and hyponatremia Status: Chronic Assessment and Plan: * relatively stable * acute on chronic issue * baseline sodium seems to run around 129 - 134 (at best) * worsening noted on admission (with a sodium of 117) * multiple risk factors for hyponatremia: * pneumonia * underlying lung disease (COPD) * pleural effusion * SSRI use (lexapro) * PPI use (nexium) * hypothyroidism (restarted treatment on this admission) * evalution noted currently and on previous hospitalization: * CXR results noted * CT of head reviwed * urine electrolytes prerenal * TSH quite elevated - levothyroxine adjusted * cortisol okay * SPEP/UPEP in the past negative; repeat testing pending * started on furosemide in addition to home salt tabs * follow trend of repeat sodium levels (2) Pneumonia: Code(s): J18.9 - Pneumonia, unspecified organism Status: Acute Assessment and Plan: * as suggested by admission imaging * on antibiotics * follow culture data * monitor respiratory status (3) Pleural effusion on left: Code(s): J90 - Pleural effusion, not elsewhere classified Status: Acute Assessment and Plan: * as noted by admission imaging * on antibiotics * diuretic therapy may help * consider thoracentesis if persists (4) Altered mental status: Code(s): R41.82 - Altered mental status, unspecified Status: Acute Assessment and Plan: * initially though to be secondary to low sodium * appears closer to baseline at this time * follow mentation (5) COPD (chronic obstructive pulmonary disease): Code(s): J44.9 - Chronic obstructive pulmonary disease, unspecified Status: Acute Assessment and Plan: * no evidence of exacerbation * continue home medications/inhalers Will continue to follow. Subjective Date/time seen: 03/09/24 10:24 Interval history: Follow-up for acute on chronic hyponatremia. Sodium has been relatively stable in the last 24 hours but has not really improved all that much; remains asymptomatic with regard to this issue; no apparent distress noted at the time of my visit. Exam Narrative: General: ill appearing male in NAD Heart: normal S1 and S2; no rub Lungs: coarse breath sounds; decreased on the left Abdomen: soft, nontender, nondistended, positive bowel sounds Extremities: no cyanosis or clubbing; trace edema Skin: warm and dry Objective Data Vital Signs Vital Signs: Vital Signs Temp Pulse Resp BP Pulse Ox O2 Del Method O2 Flow Rate 03/09/24 10:00 65 03/09/24 08:28 68 20 03/09/24 08:18 67 20 03/09/24 08:18 97 Nasal Cannula 2 03/09/24 08:00 68 03/09/24 08:00 100 Nasal Cannula 2 03/09/24 07:22 98.9 F 66 18 93/63 L 100 03/09/24 05:54 83 03/08/24 20:55 97 Nasal Cannula 2 03/09/24 04:15 97.7 F 68 24 H 112/62 100 03/09/24 04:00 70 03/09/24 04:00 73 18 96 Nasal Cannula 2 03/08/24 21:06 68 18 03/09/24 03:07 74 18 03/09/24 02:57 71 18 03/09/24 02:00 67 03/09/24 00:00 97.6 F 24 H 117/74 100 03/09/24 00:00 69 24 H 96 Nasal Cannula 2 03/08/24 22:00 66 03/08/24 20:00 66 03/08/24 20:00 64 18 97 Nasal Cannula 2 03/08/24 20:56 66 18 03/08/24 20:30 97.4 F L 71 24 H 113/64 97 03/08/24 18:00 62 03/08/24 16:34 95 Nasal Cannula 2 Intake/Output Intake/Output: Intake & Output 03/06/24 03/07/24 03/08/24 03/09/24 23:59 23:59 23:59 23:59 Intake Total 2050 1040 410 Output Total 300 600 0 Balance 1750 440 410 Meds/Results Medications: Active Medications Generic Name Dose Route Start Last Admin Trade Name Freq PRN Reason Stop Dose Admin Acetaminophen 650 mg 03/08/24 11:58 Acetaminophen 325 Mg Tablet BY MOUTH Q6H PRN Pain Al Hydrox/Mg Hydrox/Simethicone 30 ml 03/07/24 21:44 Mag Hydrox/Al Hydrox/Simeth 30 Ml Udc PO Q6H PRN Indigestion Albuterol 2.5 mg 03/08/24 16:08 03/08/24 20:55 Albuterol Sulfate Neb 2.5 Mg/3 Ml Inh INHALATION 2.5 mg Q6HRT PRN Administration Shortness Of Breath Albuterol/Ipratropium 3 ml 03/08/24 20:30 03/09/24 14:23 Ipratropium 0.5 Mg/Albuterol Sulfate 2.5 Mg Ampul.Neb 3 Ml INHALATION 3 ml Q6HRT CARYL Administration Alprazolam 1 mg 03/08/24 15:44 Alprazolam (*Crx) 0.5 Mg Tablet PO TID PRN anxiety Azithromycin 500 mg 03/08/24 21:00 03/08/24 22:04 Azithromycin 250 Mg Tablet PO 03/11/24 21:01 500 mg DAILY@2100 [facility] Administration Baclofen 5 mg 03/08/24 15:44 Baclofen 5 Mg Tablet PO TID PRN muscle spasms Benzonatate 100 mg 03/08/24 11:57 Benzonatate 100 Mg Capsule PO TID PRN Cough Fluticasone/Umeclidinium/Vilanterol 1 puff 03/09/24 08:00 03/09/24 08:40 Fluticasone/Umeclidin/Vilanter 100-62.5-25 Mcg Ellipta INHALATION 1 puff DAILYRT CARYL Administration Furosemide 10 mg 03/09/24 13:00 03/09/24 12:33 Furosemide 10 Mg Tablet PO 10 mg TID CARYL Administration Guaifenesin 600 mg 03/08/24 21:00 03/09/24 08:31 Guaifenesin 12 Hr 600 Mg Tabcr PO 600 mg Q12HR CARYL Administration Cefepime HCl 2 gm in 50 mls @ 100 mls/hr 03/08/24 10:00 03/09/24 09:00 Maxipime 2 Gm/Ns 50 Ml IVPB Infused Q12HR [facility] Infusion Levothyroxine Sodium 150 mcg 03/09/24 06:30 03/09/24 05:54 Levothyroxine Sodium 150 Mcg Tablet PO Not Given DAILY@0630 [facility] Ondansetron HCl 4 mg 03/07/24 20:36 Ondansetron Inj 4 Mg/2 Ml Vial IV PUSH Q4H PRN Nausea Polyethylene Glycol 17 gm 03/07/24 21:44 Polyethylene Glycol 3350 17 Gm Powd.Pack PO QAM PRN Constipation Ranolazine 500 mg 03/08/24 21:00 03/09/24 08:31 Ranolazine 500 Mg Tab.Er.12h PO 500 mg Q12HR CARYL Administration Simvastatin 20 mg 03/09/24 09:00 03/09/24 08:31 Simvastatin 20 Mg Tablet PO 20 mg DAILY CARYL Administration Sodium Chloride 1 gm 03/08/24 17:00 03/09/24 12:33 Sodium Chloride 1 Gm Tablet PO 1 gm TID CARYL Administration Radiology Results: ITS Impressions Chest X-Ray 03/07/24 19:04 IMPRESSION: Early left-sided infiltrate with a large left-sided pleural effusion. Head CT 03/07/24 19:52 Impression: No acute intracranial hemorrhage or suspicious mass effect. Labs Labs: Laboratory Tests 03/09/24 04:22 03/09/24 04:22 Microbiology 03/07/24 16:34 Urine Catheterized Urine Culture - Final 03/07/24 23:14 Blood Blood Culture - Preliminary 03/07/24 23:14 Blood Blood Culture - Preliminary
[2024-03-09] MEDS: FUROSEMIDE 10 MG TABLET PO ×2 (12:33→16:47)
--- NOTE | 2024-03-09 16:15 | PCSTNOTE ---
Please refer to the Bedside Swallow Evaluation in the EMR. Please note, silent aspiration cannot be ruled out at bedside.
[2024-03-09 16:57] LABS: Sodium 123 mmol/L (137-145)
[2024-03-09] MEDS: ALPRAZolam (*CRX) 0.5 MG TABLET 1 MG PO (20:28)
[2024-03-09] MEDS: AZITHROMYCIN 250 MG TABLET 500 MG PO (20:28)
[2024-03-10] VITALS (27 sets, daily range): BP systolic 72–111; BP diastolic 49–61; PULSE 50–69; RESP 14–22; TEMP 35.7–36.7; O2SAT 92–100
--- NOTE | 2024-03-10 07:05 | P.PNIM_ITS ---
Progress Note: A&P Assessment and Plan (1) Hyponatremia: Code(s): E87.1 - Hypo-osmolality and hyponatremia Status: Acute Assessment and Plan: likely to be multifactorial- appears to be chronic chloride is 80 patient received NS 2 L in emergency room with up trending of the sodium will continue to monitor with serial BMP -nephrology consulted- appreciate recommendations 03/10- na 123 today- nephrology is following (2) Pleural effusion on left: Code(s): J90 - Pleural effusion, not elsewhere classified Status: Acute Assessment and Plan: likely to be a parapneumonic effusion as patient with infiltrate will start on vancomycin Zithromax and cefepime due to recent admission as well patient living in rehabilitation center 03/08- mrsa swab neg- stop vanc- downgrade to PO zithromax-- continue cefepime iv antibiotics 03/09- pt is very congested- unable to follow instructions and clear airway well - will order CPT -continue to encourage cought/deep breathing - pt/ot- out of bed-ambulate with assistance- pt is high fall risk (3) Pneumonia: Code(s): J18.9 - Pneumonia, unspecified organism Status: Acute Assessment and Plan: blood cultures in progress was started vancomycin cefepime and Zithromax but downgraded to cefepime and azithromycin see antibiotic plan above (4) Altered mental status: Code(s): R41.82 - Altered mental status, unspecified Status: Acute Assessment and Plan: likely of endocrine metabolic etiology related to hyponatremia speech eval is completed- recommendations reviewed and ordered for diet (5) Acute hypoxic respiratory failure: Code(s): J96.01 - Acute respiratory failure with hypoxia Status: Acute Assessment and Plan: on supplemental oxygen by nasal cannula (6) GERD (gastroesophageal reflux disease): Code(s): K21.9 - Gastro-esophageal reflux disease without esophagitis Status: Acute Assessment and Plan: PPI (7) COPD (chronic obstructive pulmonary disease): Code(s): J44.9 - Chronic obstructive pulmonary disease, unspecified Status: Acute Assessment and Plan: continue home meds not actively wheezing - encouraged IS if able to follow instructions out of bed for meals work with pt/ot (8) Protein calorie malnutrition: Code(s): E46 - Unspecified protein-calorie malnutrition Status: Acute Assessment and Plan: liberalize diet (9) Tobacco dependence: Code(s): F17.200 - Nicotine dependence, unspecified, uncomplicated Status: Acute Assessment and Plan: nicotine patch as needed (10) Normocytic anemia: Code(s): D64.9 - Anemia, unspecified Status: Acute Assessment and Plan: continue to monitor (11) Hypothyroidism: Code(s): E03.9 - Hypothyroidism, unspecified Status: Acute Assessment and Plan: h/o thyroid ca, s/p chemo,radiation - levothyroxine 175 mcg urrently tsh 60- repeated 58, low t4 - will increase dose to 200 mcg- will need an outpt f/u with repeated TSH in 6-8 months Time Spent With Patient Time with patient: Greater than 35 minutes Subjective Date/time seen: 03/10/24 07:05 Interval history: Seen and examined this am. Speech eval is completed yesterday- MBS is recommended and will be done today. Pt is very congested and has lots of secretions he is having a hard time coughing up. Unable to follow instructions well to do IS. Chest physiotherapy is ordered, PT/OT More alert today Review of Systems Review of Systems: more alert today Exam Narrative: lying in stretcher Const: General: comfortable, no acute distress, well developed, alert, awake, ill appearing chronically, average body habitus and underweight Nutritional Appearance: average body habitus and underweight Orientation/consciousness: oriented to person and oriented to place Other: Dry mucosa HENMT: Head: normal to inspection, normocephalic and atraumatic Ears: hearing grossly normal bilaterally Face/Nose/Sinus: normal facial exam Face and sinus: normal facial exam Eyes: General: appearance normal, both eyes and all related structures Pupils: Equal, round and reactive pupils present EOM: EOMs intact bilaterally Neck: Neck: full ROM, no lymphadenopathy and no JVD Thyroid: thyroid normal Lymphatic: no lymphadenopathy noted Resp: Effort & Inspection: normal respiratory effort, able to speak in co mplete sentences and no respiratory distress Auscultation: clear to auscultation bilaterally and diminished lung sounds on the left in the lower lung nye Other: coarse Cardio: Jugular venous distension: no JVD Rate: regular rate Rhythm: regular rhythm Heart sounds: S1 normal heart sound present and S2 normal heart sound present : General: Yes deferred Skin: Rashes: no rashes Wounds: no wounds Neuro: General: oriented to person, oriented to place, patient oriented x3, no focal motor deficits, CN's II-XI intact bilaterally and Unable to assess gait Cranial nerves: Yes CN's II-XII intact bilaterally and Yes Equal, round and reactive pupils present Cognition (Neuro): normal cognition Speech: normal speech Gait exam (Neuro): Normal gait present and Unable to assess gait Motor exam (neuro): 5/5 motor strength present throughout Extrem: General: normal to inspection, full ROM, no joint enlargement and no pedal edema Objective Data Vital Signs Vital Signs: Vital Signs - 24 hr 03/09/24 07:22 03/09/24 08:00 03/09/24 08:00 Temperature 98.9 F Pulse Rate 66 68 Respiratory Rate 18 Blood Pressure 93/63 L Pulse Oximetry 100 100 Oxygen Delivery Nasal Cannula Oxygen Flow Rate 2 Fraction of Inspired Oxygen 03/09/24 08:18 03/09/24 08:18 03/09/24 08:28 Temperature Pulse Rate 67 68 Respiratory Rate 20 20 Blood Pressure Pulse Oximetry 97 Oxygen Delivery Nasal Cannula Oxygen Flow Rate 2 Fraction of Inspired Oxygen 28 03/09/24 10:00 03/09/24 12:33 03/09/24 13:27 Temperature 97.9 F Pulse Rate 65 59 L Respiratory Rate 22 H Blood Pressure 100/79 Pulse Oximetry 100 Oxygen Delivery Nasal Cannula Oxygen Flow Rate 2 Fraction of Inspired Oxygen 03/09/24 12:00 03/09/24 13:39 03/09/24 14:28 Temperature Pulse Rate 63 Respiratory Rate 20 Blood Pressure Pulse Oximetry 100 Oxygen Delivery Nasal Cannula Nasal Cannula Oxygen Flow Rate 2 2 Fraction of Inspired Oxygen 03/09/24 12:00 03/09/24 14:38 03/09/24 14:00 Temperature Pulse Rate 87 66 64 Respiratory Rate 20 Blood Pressure Pulse Oximetry Oxygen Delivery Oxygen Flow Rate Fraction of Inspired Oxygen 03/09/24 16:00 03/09/24 16:00 03/09/24 16:00 Temperature 97 F L Pulse Rate 71 76 Respiratory Rate 26 H Blood Pressure 98/79 L Pulse Oximetry 100 100 Oxygen Delivery Nasal Cannula Oxygen Flow Rate 2 Fraction of Inspired Oxygen 03/09/24 18:00 03/09/24 20:00 03/09/24 20:00 Temperature 97.9 F Pulse Rate 68 66 Respiratory Rate 20 Blood Pressure 106/59 L Pulse Oximetry 100 100 Oxygen Delivery Nasal Cannula Oxygen Flow Rate 2 Fraction of Inspired Oxygen 03/09/24 21:07 03/09/24 21:10 03/09/24 20:00 Temperature Pulse Rate 67 69 Respiratory Rate 20 Blood Pressure Pulse Oximetry 100 Oxygen Delivery Nasal Cannula Oxygen Flow Rate 2 Fraction of Inspired Oxygen 03/09/24 22:00 03/10/24 00:00 03/09/24 23:00 Temperature 96.8 F L Pulse Rate 64 57 L Respiratory Rate 18 Blood Pressure 111/56 L Pulse Oximetry 94 94 Oxygen Delivery Room Air Oxygen Flow Rate Fraction of Inspired Oxygen 03/10/24 00:00 03/10/24 02:00 03/10/24 04:00 Temperature Pulse Rate 54 L 53 L 50 L Respiratory Rate Blood Pressure Pulse Oximetry Oxygen Delivery Oxygen Flow Rate Fraction of Inspired Oxygen 03/10/24 04:30 03/10/24 05:46 03/10/24 06:00 Temperature 96.3 F L Pulse Rate 53 L 52 L Respiratory Rate 14 Blood Pressure 108/57 L Pulse Oximetry 92 Oxygen Delivery Room Air Oxygen Flow Rate Fraction of Inspired Oxygen Intake/Output Intake/Output: Intake & Output 03/07/24 03/08/24 03/09/24 03/10/24 23:59 23:59 23:59 23:59 Intake Total 2050 1040 700 Output Total 300 600 400 300 Balance 1750 440 300 -300 Meds/Results Medications: Active Medications Generic Name Dose Route Start Last Admin Trade Name Freq PRN Reason Stop Dose Admin Acetaminophen 650 mg 03/08/24 11:58 Acetaminophen 325 Mg Tablet BY MOUTH Q6H PRN Pain Al Hydrox/Mg Hydrox/Simethicone 30 ml 03/07/24 21:44 Mag Hydrox/Al Hydrox/Simeth 30 Ml Udc PO Q6H PRN Indigestion Albuterol 2.5 mg 03/08/24 16:08 03/08/24 20:55 Albuterol Sulfate Neb 2.5 Mg/3 Ml Inh INHALATION 2.5 mg Q6HRT PRN Administration Shortness Of Breath Albuterol/Ipratropium 3 ml 03/08/24 20:30 03/10/24 02:22 Ipratropium 0.5 Mg/Albuterol Sulfate 2.5 Mg Ampul.Neb 3 Ml INHALATION Not Given Q6HRT [facility] Alprazolam 1 mg 03/08/24 15:44 03/09/24 20:28 Alprazolam (*Crx) 0.5 Mg Tablet PO 1 mg TID PRN Administration anxiety Azithromycin 500 mg 03/08/24 21:00 03/09/24 20:28 Azithromycin 250 Mg Tablet PO 03/11/24 21:01 500 mg DAILY@2100 [facility] Administration Baclofen 5 mg 03/08/24 15:44 Baclofen 5 Mg Tablet PO TID PRN muscle spasms Benzonatate 100 mg 03/08/24 11:57 Benzonatate 100 Mg Capsule PO TID PRN Cough Fluticasone/Umeclidinium/Vilanterol 1 puff 03/09/24 08:00 03/09/24 08:40 Fluticasone/Umeclidin/Vilanter 100-62.5-25 Mcg Ellipta INHALATION 1 puff DAILYRT [facility] Administration Furosemide 10 mg 03/09/24 13:00 03/09/24 16:47 Furosemide 10 Mg Tablet PO 10 mg TID [facility] Administration Guaifenesin 600 mg 03/08/24 21:00 03/09/24 19:27 Guaifenesin 12 Hr 600 Mg Tabcr PO Not Given Q12HR [facility] Cefepime HCl 2 gm in 50 mls @ 100 mls/hr 03/08/24 10:00 03/09/24 21:22 Maxipime 2 Gm/Ns 50 Ml IVPB Infused Q12HR [facility] Infusion Levothyroxine Sodium 150 mcg 03/09/24 06:30 03/10/24 06:16 Levothyroxine Sodium 150 Mcg Tablet PO Not Given DAILY@0630 [facility] Ondansetron HCl 4 mg 03/07/24 20:36 Ondansetron Inj 4 Mg/2 Ml Vial IV PUSH Q4H PRN Nausea Polyethylene Glycol 17 gm 03/07/24 21:44 Polyethylene Glycol 3350 17 Gm Powd.Pack PO QAM PRN Constipation Ranolazine 500 mg 03/08/24 21:00 03/09/24 20:28 Ranolazine 500 Mg Tab.Er.12h PO 500 mg Q12HR [facility] Administration Simvastatin 20 mg 03/09/24 09:00 03/09/24 08:31 Simvastatin 20 Mg Tablet PO 20 mg DAILY [facility] Administration Sodium Chloride 1 gm 03/08/24 17:00 03/09/24 16:47 Sodium Chloride 1 Gm Tablet PO 1 gm TID [facility] Administration Radiology Results: ITS Impressions Chest X-Ray 03/07/24 19:04 IMPRESSION: Early left-sided infiltrate with a large left-sided pleural effusion. Head CT 03/07/24 19:52 Impression: No acute intracranial hemorrhage or suspicious mass effect. Labs Labs: Laboratory Results - last 24 hr 03/09/24 03/09/24 04:22 16:33 Sodium 123 L Random Cortisol 20.00 Quality VTE Prophylaxis VTE prophylaxis: mechanical ordered
[2024-03-10] MEDS: IPRATROPIUM 0.5 MG/ALBUTEROL SULFATE 2.5 MG AMPUL.NEB 3 ML INHALATION ×3 (07:15→20:18)
[2024-03-10] MEDS: FLUTICASONE/UMECLIDIN/VILANTER 100-62.5-25 MCG ELLIPTA 1 PUFF INHALATION (07:15)
[2024-03-10 08:29] LABS: Hematocrit 22.8 % (42.0-52.0); Hemoglobin 7.6 g/dL (14.0-18.0); Mean Corpuscular HGB Conc 33.3 g/dl (32-36); Mean Corpuscular Hemoglobin 28.7 pg (26-34); Mean Platelet Volume 8.8 fl (7.4-10.4); Platelet Count Result 182 k/mm3 (150-375); Red Blood Count 2.65 M/mm3 (4.6-6.20); Red Cell Distribution Width 18.6 % (11.5-14.5); White Blood Count 5.4 K/mm3 (4.5-10.0)
[2024-03-10 08:54] LABS: Anion Gap 4 mmol/L (4-12); Blood Urea Nitrogen 7 mg/dL (9-20); Carbon Dioxide 28 mmol/L (22-30); Chloride 93 mmol/L (98-107); Estimated CRCL calculation 101 ml/min; Estimated Glomerular Filt Rate > 60; Glucose 79 mg/dL (65-110); Potassium 3.2 mmol/L (3.4-5.0); Sodium 125 mmol/L (137-145)
--- NOTE | 2024-03-10 10:26 | PC.NURSE ---
pt taken down for barrium swallow, morning meds held until swallow finished, pt having trouble swallowing at breakfast
[2024-03-10 10:33] LABS: Protein, Total 5.6 g/dL (6.1-8.1)
--- NOTE | 2024-03-10 10:56 | PC.NURSE ---
pt returned from [facility], will attempt to give morning meds now, okay'd with merly perdue
--- NOTE | 2024-03-10 11:29 | REHSTMBS ---
Assessment and note entered by Judit Holt, DIRECTOR OF CATERING Modified Barium Swallow Evaluation Feeding Type Recommended Oral Food Consistency Minced and Moist, Level 5 Liquid Consistency Moderately Thick (3) Treatment Recommendations Tongue Base Exercise,Vocal Fold Adduction Exer ST Clinical Summary MODIFIED BARIUM SWALLOW STUDY Patient was admitted 03/07 with left sided infiltrates, and history of COPD/emphysema, coronary artery disease, protein calorie malnutrition, chronic hyponatremia, esophageal reflux disease, peripheral neuropathy, thrombocytopenia, lymphocytic esophagitis. Patient has a history of dysphagia and a Modified Barium Swallow (MBS) study was completed at last admission, which revealed trace penetration on thin liquids. Minced and Moist Diet was recommended however eventually patient refused this consistency. He was allowed to stay on thin liquids due to only trace penetration; thickener was suggested however patient refused the thickener and refused to participate in direct Speech Therapy tasks. LUIS Quiroga, reported on 03/09/24 that she is concerned that patient is confused and has lung congestion, concerned for aspiration. During today?s assessment pt aspirated on thin liquids via straw. Mildly thickened liquids via straw still resulted in large amounts of penetration and trace aspiration. Pt demonstrated ability to clear moderately thickened liquids via straw with minimal penetration and no aspiration. Pt?s swallow when presented pudding via spoon was within normal limits. Mixed consistencies and solid consistencies resulted in extended chewing, up to at least 30 or more seconds. It should be noted that patient presented with garbled-sounding speech before and during today?s evaluation and had difficulty keeping his eyes open, requiring multiple prompts for attention, which may have impacted results of today?s evaluation. Results of today?s evaluation warrant a modified diet of Moderately thick liquids (Level 3) and Minced and Moist Diet (Level 5). Noemi Blake, Hospitalist, notified of results and recommendations. Thank you for this referral!
--- NOTE | 2024-03-10 11:30 | PC.NURSE ---
bladder scan performed by students with supervision by instructor, 200mL found in bladder at this time
[2024-03-10] MEDS: CEFEPIME 2 GM/NS 50 ML 2 GM/50 ML BAG IVPB ×2 (11:33→20:36)
[2024-03-10] MEDS: FUROSEMIDE 10 MG TABLET PO ×2 (11:38→12:20)
[2024-03-10] MEDS: SIMVASTATIN 20 MG TABLET PO (11:38)
[2024-03-10] MEDS: RANOLAZINE 500 MG TAB.ER.12H PO ×2 (12:10→20:37)
--- NOTE | 2024-03-10 14:12 | P.PNNP_ITS ---
Progress Note: A&P Assessment and Plan (1) Hyponatremia: Code(s): E87.1 - Hypo-osmolality and hyponatremia Status: Chronic Assessment and Plan: * Hyponatremia * He has chronic hyponatremia. It was a bit worse on admission. * baseline sodium seems to run around 129 - 134 (at best) * multiple risk factors for hyponatremia: * pneumonia * underlying lung disease (COPD) * pleural effusion * SSRI use (lexapro) * PPI use (nexium) * hypothyroidism (restarted treatment on this admission) * evalution noted currently and on previous hospitalization: * CXR results shows early left-sided infiltrate with a large left-sided pleural effusion * CT of head shows no intracranial hemorrhage or suspicious mass effect * urine electrolytes prerenal * TSH quite elevated - levothyroxine adjusted * cortisol okay * SPEP/UPEP in the past negative; repeat testing pending * Currently on furosemide plus salt tablets. * Sodium level improved from 05/23 yesterday morning to 125 today. (2) Pneumonia: Code(s): J18.9 - Pneumonia, unspecified organism Status: Acute Assessment and Plan: * as suggested by admission imaging * on cefepime and azithromycin * Blood cultures negative today * monitor respiratory status (3) Pleural effusion on left: Code(s): J90 - Pleural effusion, not elsewhere classified Status: Acute Assessment and Plan: * as noted by admission imaging * on antibiotics * diuretic therapy may help * consider thoracentesis if persists (4) Altered mental status: Code(s): R41.82 - Altered mental status, unspecified Status: Acute Assessment and Plan: * initially though to be secondary to low sodium * This should no longer be the case * follow mentation (5) COPD (chronic obstructive pulmonary disease): Code(s): J44.9 - Chronic obstructive pulmonary disease, unspecified Status: Acute Assessment and Plan: * no evidence of exacerbation * continue home medications/inhalers Subjective Date/time seen: 03/10/24 14:12 Interval history: Patient is weak. Exam Narrative: General: ill appearing male in NAD Heart: normal S1 and S2; no rub or gallop Lungs: coarse breath sounds; decreased on the left Abdomen: soft, nontender, nondistended, positive bowel sounds Extremities: no cyanosis or clubbing; trace edema Skin: No rash Objective Data Vital Signs Vital Signs: Vital Signs - 24 hr 03/09/24 14:28 03/09/24 14:38 03/09/24 16:00 Temperature 97 F L Pulse Rate 63 66 71 Respiratory Rate 20 20 26 H Blood Pressure 98/79 L Pulse Oximetry 100 Oxygen Delivery Oxygen Flow Rate 03/09/24 16:00 03/09/24 16:00 03/09/24 18:00 Temperature Pulse Rate 76 68 Respiratory Rate Blood Pressure Pulse Oximetry 100 Oxygen Delivery Nasal Cannula Oxygen Flow Rate 2 03/09/24 20:00 03/09/24 20:00 03/09/24 21:07 Temperature 97.9 F Pulse Rate 66 67 Respiratory Rate 20 20 Blood Pressure 106/59 L Pulse Oximetry 100 100 Oxygen Delivery Nasal Cannula Oxygen Flow Rate 2 03/09/24 21:10 03/09/24 20:00 03/09/24 22:00 Temperature Pulse Rate 69 64 Respiratory Rate Blood Pressure Pulse Oximetry 100 Oxygen Delivery Nasal Cannula Oxygen Flow Rate 2 03/10/24 00:00 03/09/24 23:00 03/10/24 00:00 Temperature 96.8 F L Pulse Rate 57 L 54 L Respiratory Rate 18 Blood Pressure 111/56 L Pulse Oximetry 94 94 Oxygen Delivery Room Air Oxygen Flow Rate 03/10/24 02:00 03/10/24 04:00 03/10/24 04:30 Temperature Pulse Rate 53 L 50 L Respiratory Rate Blood Pressure Pulse Oximetry Oxygen Delivery Room Air Oxygen Flow Rate 03/10/24 05:46 03/10/24 06:00 03/10/24 07:15 Temperature 96.3 F L Pulse Rate 53 L 52 L Respiratory Rate 14 Blood Pressure 108/57 L Pulse Oximetry 92 98 Oxygen Delivery Nasal Cannula Oxygen Flow Rate 2 03/10/24 07:15 03/10/24 07:22 03/10/24 08:12 Temperature 97.7 F Pulse Rate 50 L 60 55 L Respiratory Rate 20 20 22 H Blood Pressure 103/56 L Pulse Oximetry 97 Oxygen Delivery Oxygen Flow Rate 03/10/24 11:32 03/10/24 08:00 03/10/24 08:00 Temperature 97.6 F Pulse Rate 51 L 52 L Respiratory Rate 22 H Blood Pressure 109/61 Pulse Oximetry 96 93 Oxygen Delivery Nasal Cannula Oxygen Flow Rate 2 03/10/24 10:00 03/10/24 12:00 03/10/24 12:00 Temperature Pulse Rate 52 L 57 L Respiratory Rate Blood Pressure Pulse Oximetry 93 Oxygen Delivery Nasal Cannula Oxygen Flow Rate 2 03/10/24 14:02 03/10/24 14:08 Temperature Pulse Rate 61 69 Respiratory Rate 20 20 Blood Pressure Pulse Oximetry Oxygen Delivery Oxygen Flow Rate Intake/Output Intake/Output: Intake & Output 03/07/24 03/08/24 03/09/24 03/10/24 23:59 23:59 23:59 23:59 Intake Total 2050 1040 700 530 Output Total 300 936 770 3262 Balance 1750 440 300 -520 Meds/Results Medications: Active Medications Generic Name Dose Route Start Last Admin Trade Name Freq PRN Reason Stop Dose Admin Acetaminophen 650 mg 03/08/24 11:58 Acetaminophen 325 Mg Tablet BY MOUTH Q6H PRN Pain Al Hydrox/Mg Hydrox/Simethicone 30 ml 03/07/24 21:44 Mag Hydrox/Al Hydrox/Simeth 30 Ml Udc PO Q6H PRN Indigestion Albuterol 2.5 mg 03/08/24 16:08 03/08/24 20:55 Albuterol Sulfate Neb 2.5 Mg/3 Ml Inh INHALATION 2.5 mg Q6HRT PRN Administration Shortness Of Breath Albuterol/Ipratropium 3 ml 03/08/24 20:30 03/10/24 13:59 Ipratropium 0.5 Mg/Albuterol Sulfate 2.5 Mg Ampul.Neb 3 Ml INHALATION 3 ml Q6HRT [facility] Administration Alprazolam 1 mg 03/08/24 15:44 03/09/24 20:28 Alprazolam (*Crx) 0.5 Mg Tablet PO 1 mg TID PRN Administration anxiety Azithromycin 500 mg 03/08/24 21:00 03/09/24 20:28 Azithromycin 250 Mg Tablet PO 03/11/24 21:01 500 mg DAILY@2100 [facility] Administration Baclofen 5 mg 03/08/24 15:44 Baclofen 5 Mg Tablet PO TID PRN muscle spasms Benzonatate 100 mg 03/08/24 11:57 Benzonatate 100 Mg Capsule PO TID PRN Cough Fluticasone/Umeclidinium/Vilanterol 1 puff 03/09/24 08:00 03/10/24 07:15 Fluticasone/Umeclidin/Vilanter 100-62.5-25 Mcg Ellipta INHALATION 1 puff DAILYRT [facility] Administration Furosemide 10 mg 03/09/24 13:00 03/10/24 12:20 Furosemide 10 Mg Tablet PO 10 mg TID [facility] Administration Guaifenesin 600 mg 03/08/24 21:00 03/10/24 12:21 Guaifenesin 12 Hr 600 Mg Tabcr PO Not Given Q12HR [facility] Cefepime HCl 2 gm in 50 mls @ 100 mls/hr 03/08/24 10:00 03/10/24 12:08 Maxipime 2 Gm/Ns 50 Ml IVPB Infused Q12HR [facility] Infusion Levothyroxine Sodium 150 mcg 03/09/24 06:30 03/10/24 06:16 Levothyroxine Sodium 150 Mcg Tablet PO Not Given DAILY@0630 [facility] Ondansetron HCl 4 mg 03/07/24 20:36 Ondansetron Inj 4 Mg/2 Ml Vial IV PUSH Q4H PRN Nausea Polyethylene Glycol 17 gm 03/07/24 21:44 Polyethylene Glycol 3350 17 Gm Powd.Pack PO QAM PRN Constipation Ranolazine 500 mg 03/08/24 21:00 03/10/24 12:10 Ranolazine 500 Mg Tab.Er.12h PO 500 mg Q12HR [facility] Administration Simvastatin 20 mg 03/09/24 09:00 03/10/24 11:38 Simvastatin 20 Mg Tablet PO 20 mg DAILY [facility] Administration Sodium Chloride 1 gm 03/08/24 17:00 03/10/24 12:21 Sodium Chloride 1 Gm Tablet PO Not Given TID [facility] Radiology Results: ITS Impressions Chest X-Ray 03/07/24 19:04 IMPRESSION: Early left-sided infiltrate with a large left-sided pleural effusion. Head CT 03/07/24 19:52 Impression: No acute intracranial hemorrhage or suspicious mass effect. Modified Barium Swallow 03/10/24 11:34 IMPRESSION: 1. Aspiration. 2. Please refer to the speech therapy report for recommendations. Labs Labs: Laboratory Results - last 24 hr 03/09/24 03/09/24 03/10/24 04:22 16:33 08:01 WBC 5.4 RBC 2.65 L Hgb 7.6 L Hct 22.8 L MCV 86.0 MCH 28.7 MCHC 33.3 RDW 18.6 H Plt Count 182 MPV 8.8 Sodium 123 L 125 L Potassium 3.2 L Chloride 93 L Carbon Dioxide 28 Anion Gap 4 BUN 7 L Creatinine 0.50 L Estim Creat Clear Calc 101 Estimated GFR > 60 Glucose 79 Calcium 8.0 L Total Protein 5.6 L
[2024-03-10] MEDS: SODIUM CHLORIDE 0.9% IV 500 ML 999 ML IV CONT (16:04)
[2024-03-10] MEDS: AZITHROMYCIN 250 MG TABLET 500 MG PO (20:37)
[2024-03-10] MEDS: guaiFENesin 12 HR 600 MG TABCR PO (20:37)
[2024-03-10 21:38] LABS: Legionella pneumophila Ag Ur NOT DETECTED
[2024-03-11] VITALS (27 sets, daily range): BP systolic 90–125; BP diastolic 52–63; PULSE 51–79; RESP 18–59; TEMP 36.4–36.8; O2SAT 93–100
[2024-03-11] MEDS: IPRATROPIUM 0.5 MG/ALBUTEROL SULFATE 2.5 MG AMPUL.NEB 3 ML INHALATION ×4 (01:50→19:29)
[2024-03-11 05:18] LABS: Anion Gap 4 mmol/L (4-12); Blood Urea Nitrogen 8 mg/dL (9-20); Calcium 8.2 mg/dL (8.4-10.2); Carbon Dioxide 33 mmol/L (22-30); Chloride 91 mmol/L (98-107); Estimated CRCL calculation 98 ml/min; Estimated Glomerular Filt Rate > 60; Glucose 80 mg/dL (65-110); Potassium 3.3 mmol/L (3.4-5.0); Sodium 128 mmol/L (137-145)
[2024-03-11] MEDS: LEVOTHYROXINE SODIUM 150 MCG TABLET PO (06:42)
[2024-03-11] MEDS: FLUTICASONE/UMECLIDIN/VILANTER 100-62.5-25 MCG ELLIPTA 1 PUFF INHALATION (07:45)
[2024-03-11 08:02] LABS: Alveolar/Arterial O2 Gradient 63.3 mmHg; Base Excess ABG 4.7 mEq/l (+/-2.0); Fractional Inspired Oxygen 28 %; HCO3 ABG 29.3 mEq/l (22.0-26.0); Oxygen Saturation ABG 96.6 % (95.0-100.0); Oxyhemoglobin 95.2 % THb (90.0-100.0); PCO2 ABG 44.2 mmHg (35.0-45.0); PO2 ABG 84.2 mmHg (80.0-100.0); PO2 FiO2 Ratio Arterial Blood 3.01 %; Total Hemoglobin 8.1 g/dL (12.0-18.0)
[2024-03-11 08:05] LABS: Device NASAL CANNULA; Site Drawn LEFT BRACHIAL
--- NOTE | 2024-03-11 08:41 | P.PNIM_ITS ---
Progress Note: A&P Assessment and Plan (1) Hyponatremia: Code(s): E87.1 - Hypo-osmolality and hyponatremia Status: Acute Assessment and Plan: likely to be multifactorial- appears to be chronic chloride is 80 patient received NS 2 L in emergency room with up trending of the sodium will continue to monitor with serial BMP -nephrology consulted- appreciate recommendations 03/10- na 123 today- nephrology is following 03/11- 125 today (2) Pleural effusion on left: Code(s): J90 - Pleural effusion, not elsewhere classified Status: Acute Assessment and Plan: likely to be a parapneumonic effusion as patient with infiltrate will start on vancomycin Zithromax and cefepime due to recent admission as well patient living in rehabilitation center 03/08- mrsa swab neg- stop vanc- downgrade to PO zithromax-- continue cefepime iv antibiotics 03/09- pt is very congested- unable to follow instructions and clear airway well - will order CPT -continue to encourage cought/deep breathing - pt/ot- out of bed-ambulate with assistance - pt is high fall risk 03/11- repeated chest xray- stable (3) Pneumonia: Code(s): J18.9 - Pneumonia, unspecified organism Status: Acute Assessment and Plan: blood cultures in progress was started vancomycin cefepime and Zithromax but downgraded to cefepime and azithromycin see antibiotic plan above (4) Altered mental status: Code(s): R41.82 - Altered mental status, unspecified Status: Acute Assessment and Plan: likely of endocrine metabolic etiology speech eval is completed- recommendations reviewed and ordered for diet 03/11 improving (5) Acute hypoxic respiratory failure: Code(s): J96.01 - Acute respiratory failure with hypoxia Status: Acute Assessment and Plan: on supplemental oxygen by nasal cannula abg ordered-reviewed (6) GERD (gastroesophageal reflux disease): Code(s): K21.9 - Gastro-esophageal reflux disease without esophagitis Status: Acute Assessment and Plan: PPI (7) COPD (chronic obstructive pulmonary disease): Code(s): J44.9 - Chronic obstructive pulmonary disease, unspecified Status: Acute Assessment and Plan: continue home meds not actively wheezing - encouraged IS if able to follow instructions out of bed for meals work with pt/ot (8) Protein calorie malnutrition: Code(s): E46 - Unspecified protein-calorie malnutrition Status: Acute Assessment and Plan: liberalize diet (9) Tobacco dependence: Code(s): F17.200 - Nicotine dependence, unspecified, uncomplicated Status: Acute Assessment and Plan: nicotine patch as needed (10) Normocytic anemia: Code(s): D64.9 - Anemia, unspecified Status: Acute Assessment and Plan: continue to monitor (11) Hypothyroidism: Code(s): E03.9 - Hypothyroidism, unspecified Status: Acute Assessment and Plan: h/o thyroid ca, s/p chemo,radiation - levothyroxine 175 mcg urrently tsh 60- repeated 58, low t4 - will increase dose to 200 mcg- will need an outpt f/u with repeated TSH in 6-8 months Time Spent With Patient Time with patient: Greater than 35 minutes Subjective Date/time seen: 03/11/24 08:41 Interval history: Seen and examined this am. Was up in the chair for breakfast- did weel- chest xray repeated - duoneb is ordered. Better today, able to cough up secretions. Alert- able to state his name, and knew he was in the hospital. Review of Systems Review of Systems: more alert today, able to cough secretions up ROS unobtainable: Yes unobtainable due to mental status Exam Narrative: lying in stretcher Const: General: comfortable, no acute distress, well developed, alert, awake, ill appearing chronically and underweight Nutritional Appearance: underweight Orientation/consciousness: oriented to person and oriented to place Other: Dry mucosa HENMT: Head: normal to inspection, normocephalic and atraumatic Ears: hearing grossly normal bilaterally Face/Nose/Sinus: normal facial exam Face and sinus: normal facial exam Eyes: General: appearance normal, both eyes and all related structures Pupils: Equal, round and reactive pupils present EOM: EOMs intact bilaterally Neck: Neck: full ROM, no lymphadenopathy and no JVD Thyroid: thyroid normal Lymphatic: no lymphadenopathy noted Resp: Effort & Inspection: normal respiratory effort, able to speak in complete sentences and no respiratory distress Auscultation: clear to auscultation bilaterally and diminished lung sounds on the left in the lower lung nye Other: coarse Cardio: Jugular venous distension: no JVD Rate: regular rate Rhythm: regular rhythm Heart sounds: S1 normal heart sound present and S2 normal heart sound present : General: Yes deferred Skin: Rashes: no rashes Wounds: no wounds Neuro: General: oriented to person, oriented to place, patient oriented x3, no focal motor deficits, CN's II-XI intact bilaterally and Unable to assess gait Cranial nerves: Yes CN's II-XII intact bilaterally and Yes Equal, round and reactive pupils present Cognition (Neuro): normal cognition Speech: normal speech Gait exam (Neuro): Normal gait present and Unable to assess gait Motor exam (neuro): 5/5 motor strength present throughout Extrem: General: normal to inspection, full ROM, no joint enlargement and no pedal edema Objective Data Vital Signs Vital Signs: Vital Signs - 24 hr 03/10/24 11:32 03/10/24 10:00 03/10/24 12:00 Temperature 97.6 F Pulse Rate 51 L 52 L 57 L Respiratory Rate 22 H Blood Pressure 109/61 Pulse Oximetry 96 Oxygen Delivery Oxygen Flow Rate 03/10/24 12:00 03/10/24 14:02 03/10/24 14:08 Temperature Pulse Rate 61 69 Respiratory Rate 20 20 Blood Pressure Pulse Oximetry 93 Oxygen Delivery Nasal Cannula Oxygen Flow Rate 2 03/10/24 14:00 03/10/24 16:07 03/10/24 16:08 Temperature 97.6 F Pulse Rate 55 L 56 L Respiratory Rate 20 Blood Pressure 77/49 L 72/50 L Pulse Oximetry 96 Oxygen Delivery Oxygen Flow Rate 03/10/24 16:00 03/10/24 16:00 03/10/24 18:00 Temperature Pulse Rate 60 61 Respiratory Rate Blood Pressure Pulse Oximetry 93 Oxygen Delivery Nasal Cannula Oxygen Flow Rate 2 03/10/24 19:47 03/10/24 20:00 03/10/24 20:18 Temperature 98.1 F Pulse Rate 55 L 60 Respiratory Rate 20 20 Blood Pressure 90/54 L Pulse Oximetry 100 100 Oxygen Delivery Nasal Cannula Oxygen Flow Rate 2 03/10/24 20:21 03/10/24 20:47 03/10/24 20:00 Temperature Pulse Rate 66 Respiratory Rate Blood Pressure 91/50 L Pulse Oximetry 98 Oxygen Delivery Nasal Cannula Oxygen Flow Rate 2 03/10/24 23:33 03/10/24 23:46 03/10/24 22:00 Temperature 97.8 F Pulse Rate 60 53 L Respiratory Rate 18 Blood Pressure 98/57 L Pulse Oximetry 100 97 Oxygen Delivery Nasal Cannula Oxygen Flow Rate 2 03/11/24 00:00 03/11/24 02:00 03/11/24 01:50 Temperature Pulse Rate 51 L 56 L 57 L Respiratory Rate 20 Blood Pressure Pulse Oximetry Oxygen Delivery Oxygen Flow Rate 03/11/24 02:00 03/11/24 03:51 03/11/24 04:00 Temperature 97.6 F Pulse Rate 60 66 Respiratory Rate 20 18 Blood Pressure 102/55 L Pulse Oximetry 99 100 Oxygen Delivery Nasal Cannula Oxygen Flow Rate 2 03/11/24 04:00 03/11/24 06:00 03/11/24 07:30 Temperature 98.0 F Pulse Rate 53 L 56 L 74 Respiratory Rate 20 Blood Pressure 125/63 Pulse Oximetry 95 Oxygen Delivery Oxygen Flow Rate 03/11/24 07:51 03/11/24 07:51 03/11/24 08:08 Temperature Pulse Rate 63 61 Respiratory Rate 59 H 20 20 Blood Pressure Pulse Oximetry 93 Oxygen Delivery Nasal Cannula Oxygen Flow Rate 2 Intake/Output Intake/Output: Intake & Output 03/08/24 03/09/24 03/10/24 03/11/24 23:59 23:59 23:59 23:59 Intake Total 6973 814 8110 Output Total 519 124 2848 650 Balance 440 300 560 -650 Meds/Results Medications: Active Medications Generic Name Dose Route Start Last Admin Trade Name Freq PRN Reason Stop Dose Admin Acetaminophen 650 mg 03/08/24 11:58 Acetaminophen 325 Mg Tablet BY MOUTH Q6H PRN Pain Al Hydrox/Mg Hydrox/Simethicone 30 ml 03/07/24 21:44 Mag Hydrox/Al Hydrox/Simeth 30 Ml Udc PO Q6H PRN Indigestion Albuterol 2.5 mg 03/08/24 16:08 03/08/24 20:55 Albuterol Sulfate Neb 2.5 Mg/3 Ml Inh INHALATION 2.5 mg Q6HRT PRN Administration Shortness Of Breath Albuterol/Ipratropium 3 ml 03/08/24 20:30 03/11/24 07:45 Ipratropium 0.5 Mg/Albuterol Sulfate 2.5 Mg Ampul.Neb 3 Ml INHALATION 3 ml Q6HRT CARYL Administration Alprazolam 1 mg 03/08/24 15:44 03/09/24 20:28 Alprazolam (*Crx) 0.5 Mg Tablet PO 1 mg TID PRN Administration anxiety Azithromycin 500 mg 03/08/24 21:00 03/10/24 20:37 Azithromycin 250 Mg Tablet PO 03/11/24 21:01 500 mg DAILY@2100 CARYL Administration Baclofen 5 mg 03/08/24 15:44 Baclofen 5 Mg Tablet PO TID PRN muscle spasms Benzonatate 100 mg 03/08/24 11:57 Benzonatate 100 Mg Capsule PO TID PRN Cough Fluticasone/Umeclidinium/Vilanterol 1 puff 03/09/24 08:00 03/11/24 07:45 Fluticasone/Umeclidin/Vilanter 100-62.5-25 Mcg Ellipta INHALATION 1 puff DAILYRT CARYL Administration Furosemide 10 mg 03/09/24 13:00 03/10/24 16:05 Furosemide 10 Mg Tablet PO Not Given TID CARYL Guaifenesin 600 mg 03/08/24 21:00 03/10/24 20:37 Guaifenesin 12 Hr 600 Mg Tabcr PO 600 mg Q12HR CARYL Administration Cefepime HCl 2 gm in 50 mls @ 100 mls/hr 03/08/24 10:00 03/10/24 21:06 Maxipime 2 Gm/Ns 50 Ml IVPB Infused Q12HR [facility] Infusion Levothyroxine Sodium 150 mcg 03/09/24 06:30 03/11/24 06:42 Levothyroxine Sodium 150 Mcg Tablet PO 150 mcg DAILY@0630 CARYL Administration Ondansetron HCl 4 mg 03/07/24 20:36 Ondansetron Inj 4 Mg/2 Ml Vial IV PUSH Q4H PRN Nausea Polyethylene Glycol 17 gm 03/07/24 21:44 Polyethylene Glycol 3350 17 Gm Powd.Pack PO QAM PRN Constipation Ranolazine 500 mg 03/08/24 21:00 03/10/24 20:37 Ranolazine 500 Mg Tab.Er.12h PO 500 mg Q12HR C[facility]L Administration Simvastatin 20 mg 03/09/24 09:00 03/10/24 11:38 Simvastatin 20 Mg Tablet PO 20 mg DAILY CARYL Administration Sodium Chloride 1 gm 03/08/24 17:00 03/10/24 16:06 Sodium Chloride 1 Gm Tablet PO Not Given TID [facility] Radiology Results: ITS Impressions Head CT 03/07/24 19:52 Impression: No acute intracranial hemorrhage or suspicious mass effect. Modified Barium Swallow 03/10/24 11:34 IMPRESSION: 1. Aspiration. 2. Please refer to the speech therapy report for recommendations. Chest X-Ray 03/11/24 07:39 Impression: Minimal pleural effusions with possible asymmetric left-sided pulmonary edema versus pneumonia left lung. Underlying COPD. Labs Labs: Laboratory Results - last 24 hr 03/07/24 03/09/24 03/10/24 16:34 04:22 08:01 Puncture Site ABG pH ABG pCO2 ABG pO2 ABG PO2/FiO2 Ratio ABG HCO3 ABG O2 Saturation ABG O2 Content ABG Base Excess A-a Gradient Oxyhemoglobin Total Hemoglobin O2 Delivery Device O2 Liters/Min FiO2 Sodium 125 L Potassium 3.2 L Chloride 93 L Carbon Dioxide 28 Anion Gap 4 BUN 7 L Creatinine 0.50 L Estim Creat Clear Calc 101 Estimated GFR > 60 Glucose 79 Calcium 8.0 L Total Protein 5.6 L Ur L.pneumophila Ag Not detected 03/11/24 03/11/24 04:41 07:43 Puncture Site Left brachial ABG pH 7.440 ABG pCO2 44.2 ABG pO2 84.2 ABG PO2/FiO2 Ratio 3.01 ABG HCO3 29.3 H ABG O2 Saturation 96.6 ABG O2 Content 11.0 L ABG Base Excess 4.7 A-a Gradient 63.3 Oxyhemoglobin 95.2 Total Hemoglobin 8.1 L O2 Delivery Device Nasal cannula O2 Liters/Min 2.0 FiO2 28 Sodium 128 L Potassium 3.3 L Chloride 91 L Carbon Dioxide 33 H Anion Gap 4 BUN 8 L Creatinine 0.50 L Estim Creat Clear Calc 98 Estimated GFR > 60 Glucose 80 Calcium 8.2 L Total Protein Ur L.pneumophila Ag Quality VTE Prophylaxis VTE prophylaxis: mechanical ordered
[2024-03-11] MEDS: FUROSEMIDE 10 MG TABLET PO ×2 (09:14→16:41)
[2024-03-11] MEDS: guaiFENesin 12 HR 600 MG TABCR PO ×2 (09:14→20:55)
[2024-03-11] MEDS: SIMVASTATIN 20 MG TABLET PO (09:14)
[2024-03-11] MEDS: RANOLAZINE 500 MG TAB.ER.12H PO ×2 (09:14→20:55)
[2024-03-11] MEDS: SODIUM CHLORIDE 1 GM TABLET PO ×3 (09:14→16:41)
[2024-03-11] MEDS: CEFEPIME 2 GM/NS 50 ML 2 GM/50 ML BAG IVPB ×2 (09:15→20:55)
[2024-03-11 09:36] LABS: Hematocrit 23.8 % (42.0-52.0); Hemoglobin 7.7 g/dL (14.0-18.0); Mean Corpuscular HGB Conc 32.4 g/dl (32-36); Mean Corpuscular Hemoglobin 28.5 pg (26-34); Mean Corpuscular Volume 88.1 fl (80-100); Mean Platelet Volume 9.4 fl (7.4-10.4); Platelet Count Result 207 k/mm3 (150-375); Red Cell Distribution Width 19.3 % (11.5-14.5); White Blood Count 7.9 K/mm3 (4.5-10.0)
--- NOTE | 2024-03-11 10:45 | P.PNNP_ITS ---
Progress Note: A&P Assessment and Plan (1) Hyponatremia: Code(s): E87.1 - Hypo-osmolality and hyponatremia Status: Chronic Assessment and Plan: * Hyponatremia * He has chronic hyponatremia. It was a bit worse on admission. * baseline sodium seems to run around 129 - 134 (at best) * multiple risk factors for hyponatremia: * pneumonia * underlying lung disease (COPD) * pleural effusion * SSRI use (lexapro) * PPI use (nexium) * hypothyroidism (restarted treatment on this admission) * evalution noted currently and on previous hospitalization: * CXR results shows early left-sided infiltrate with a large left-sided pleural effusion * CT of head shows no intracranial hemorrhage or suspicious mass effect * urine electrolytes prerenal * TSH quite elevated - levothyroxine adjusted * cortisol okay * SPEP/UPEP in the past negative; repeat testing pending * Currently on furosemide plus salt tablets. * Sodium level improved from 122 to 125 yesterday morning to 128 today. (2) Pneumonia: Code(s): J18.9 - Pneumonia, unspecified organism Status: Acute Assessment and Plan: * as suggested by admission imaging * on cefepime and azithromycin * Blood cultures negative to date * monitor respiratory status (3) Pleural effusion on left: Code(s): J90 - Pleural effusion, not elsewhere classified Status: Acute Assessment and Plan: * as noted by admission imaging * on antibiotics * diuretic therapy may help (4) Altered mental status: Code(s): R41.82 - Altered mental status, unspecified Status: Acute Assessment and Plan: * initially though to be secondary to low sodium * This should no longer be the case * pt seems better today (5) COPD (chronic obstructive pulmonary disease): Code(s): J44.9 - Chronic obstructive pulmonary disease, unspecified Status: Acute Assessment and Plan: * no evidence of exacerbation * continue home medications/inhalers Subjective Date/time seen: 03/11/24 10:45 Interval history: pt feels better. no cp or sob. still has a cough. Exam Narrative: General: WD thin male in NAD Heart: normal S1 and S2; no rub or gallop Lungs: coarse breath sounds; decreased on the left Abdomen: soft, nontender, nondistended, positive bowel sounds Extremities: trace edema Skin: No rash or sq nodule Objective Data Vital Signs Vital Signs: Vital Signs - 24 hr 03/10/24 11:32 03/10/24 12:00 03/10/24 12:00 Temperature 97.6 F Pulse Rate 51 L 57 L Respiratory Rate 22 H Blood Pressure 109/61 Pulse Oximetry 96 93 Oxygen Delivery Nasal Cannula Oxygen Flow Rate 2 03/10/24 14:02 03/10/24 14:08 03/10/24 14:00 Temperature Pulse Rate 61 69 55 L Respiratory Rate 20 20 Blood Pressure Pulse Oximetry Oxygen Delivery Oxygen Flow Rate 03/10/24 16:07 03/10/24 16:08 03/10/24 16:00 Temperature 97.6 F Pulse Rate 56 L 60 Respiratory Rate 20 Blood Pressure 77/49 L 72/50 L Pulse Oximetry 96 Oxygen Delivery Oxygen Flow Rate 03/10/24 16:00 03/10/24 18:00 03/10/24 19:47 Temperature 98.1 F Pulse Rate 61 55 L Respiratory Rate 20 Blood Pressure 90/54 L Pulse Oximetry 93 100 Oxygen Delivery Nasal Cannula Oxygen Flow Rate 2 03/10/24 20:00 03/10/24 20:18 03/10/24 20:21 Temperature Pulse Rate 60 Respiratory Rate 20 Blood Pressure Pulse Oximetry 100 98 Oxygen Delivery Nasal Cannula Nasal Cannula Oxygen Flow Rate 2 2 03/10/24 20:47 03/10/24 20:00 03/10/24 23:33 Temperature Pulse Rate 66 Respiratory Rate Blood Pressure 91/50 L Pulse Oximetry 100 Oxygen Delivery Nasal Cannula Oxygen Flow Rate 2 03/10/24 23:46 03/10/24 22:00 03/11/24 00:00 Temperature 97.8 F Pulse Rate 60 53 L 51 L Respiratory Rate 18 Blood Pressure 98/57 L Pulse Oximetry 97 Oxygen Delivery Oxygen Flow Rate 03/11/24 02:00 03/11/24 01:50 03/11/24 02:00 Temperature Pulse Rate 56 L 57 L 60 Respiratory Rate 20 20 Blood Pressure Pulse Oximetry Oxygen Delivery Oxygen Flow Rate 03/11/24 03:51 03/11/24 04:00 03/11/24 04:00 Temperature 97.6 F Pulse Rate 66 53 L Respiratory Rate 18 Blood Pressure 102/55 L Pulse Oximetry 99 100 Oxygen Delivery Nasal Cannula Oxygen Flow Rate 2 03/11/24 06:00 03/11/24 07:30 03/11/24 07:51 Temperature 98.0 F Pulse Rate 56 L 74 Respiratory Rate 20 59 H Blood Pressure 125/63 Pulse Oximetry 95 93 Oxygen Delivery Nasal Cannula Oxygen Flow Rate 2 03/11/24 07:51 03/11/24 08:08 Temperature Pulse Rate 63 61 Respiratory Rate 20 20 Blood Pressure Pulse Oximetry Oxygen Delivery Oxygen Flow Rate Intake/Output Intake/Output: Intake & Output 03/08/24 03/09/24 03/10/24 03/11/24 23:59 23:59 23:59 23:59 Intake Total 7730 882 0730 770 Output Total 934 627 1204 650 Balance 440 300 560 120 Meds/Results Medications: Active Medications Generic Name Dose Route Start Last Admin Trade Name Freq PRN Reason Stop Dose Admin Acetaminophen 650 mg 03/08/24 11:58 Acetaminophen 325 Mg Tablet BY MOUTH Q6H PRN Pain Al Hydrox/Mg Hydrox/Simethicone 30 ml 03/07/24 21:44 Mag Hydrox/Al Hydrox/Simeth 30 Ml Udc PO Q6H PRN Indigestion Albuterol 2.5 mg 03/08/24 16:08 03/08/24 20:55 Albuterol Sulfate Neb 2.5 Mg/3 Ml Inh INHALATION 2.5 mg Q6HRT PRN Administration Shortness Of Breath Albuterol/Ipratropium 3 ml 03/08/24 20:30 03/11/24 07:45 Ipratropium 0.5 Mg/Albuterol Sulfate 2.5 Mg Ampul.Neb 3 Ml INHALATION 3 ml Q6HRT CARYL Administration Alprazolam 1 mg 03/08/24 15:44 03/09/24 20:28 Alprazolam (*Crx) 0.5 Mg Tablet PO 1 mg TID PRN Administration anxiety Azithromycin 500 mg 03/08/24 21:00 03/10/24 20:37 Azithromycin 250 Mg Tablet PO 03/11/24 21:01 500 mg DAILY@2100 CARYL Administration Baclofen 5 mg 03/08/24 15:44 Baclofen 5 Mg Tablet PO TID PRN muscle spasms Benzonatate 100 mg 03/08/24 11:57 Benzonatate 100 Mg Capsule PO TID PRN Cough Fluticasone/Umeclidinium/Vilanterol 1 puff 03/09/24 08:00 03/11/24 07:45 Fluticasone/Umeclidin/Vilanter 100-62.5-25 Mcg Ellipta INHALATION 1 puff DAILYRT CARYL Administration Furosemide 10 mg 03/09/24 13:00 03/11/24 09:14 Furosemide 10 Mg Tablet PO 10 mg TID CARYL Administration Guaifenesin 600 mg 03/08/24 21:00 03/11/24 09:14 Guaifenesin 12 Hr 600 Mg Tabcr PO 600 mg Q12HR CARYL Administration Cefepime HCl 2 gm in 50 mls @ 100 mls/hr 03/08/24 10:00 03/11/24 09:45 Maxipime 2 Gm/Ns 50 Ml IVPB Infused Q12HR [facility] Infusion Levothyroxine Sodium 150 mcg 03/09/24 06:30 03/11/24 06:42 Levothyroxine Sodium 150 Mcg Tablet PO 150 mcg DAILY@0630 CARYL Administration Ondansetron HCl 4 mg 03/07/24 20:36 Ondansetron Inj 4 Mg/2 Ml Vial IV PUSH Q4H PRN Nausea Polyethylene Glycol 17 gm 03/07/24 21:44 Polyethylene Glycol 3350 17 Gm Powd.Pack PO QAM PRN Constipation Potassium Chloride 20 meq 03/11/24 10:44 Potassium Chloride 20 Meq Er Tablet PO 03/11/24 10:45 ONCE ONE Ranolazine 500 mg 03/08/24 21:00 03/11/24 09:14 Ranolazine 500 Mg Tab.Er.12h PO 500 mg Q12HR CARYL Administration Simvastatin 20 mg 03/09/24 09:00 03/11/24 09:14 Simvastatin 20 Mg Tablet PO 20 mg DAILY CARYL Administration Sodium Chloride 1 gm 03/08/24 17:00 03/11/24 09:14 Sodium Chloride 1 Gm Tablet PO 1 gm TID CARYL Administration Radiology Results: ITS Impressions Head CT 03/07/24 19:52 Impression: No acute intracranial hemorrhage or suspicious mass effect. Modified Barium Swallow 03/10/24 11:34 IMPRESSION: 1. Aspiration. 2. Please refer to the speech therapy report for recommendations. Chest X-Ray 03/11/24 07:39 Impression: Minimal pleural effusions with possible asymmetric left-sided pulmonary edema versus pneumonia left lung. Underlying COPD. Labs Labs: Laboratory Results - last 24 hr 03/07/24 03/11/24 03/11/24 16:34 04:41 07:43 WBC 7.9 RBC 2.70 L Hgb 7.7 L Hct 23.8 L MCV 88.1 MCH 28.5 MCHC 32.4 RDW 19.3 H Plt Count 207 MPV 9.4 Puncture Site Left brachial ABG pH 7.440 ABG pCO2 44.2 ABG pO2 84.2 ABG PO2/FiO2 Ratio 3.01 ABG HCO3 29.3 H ABG O2 Saturation 96.6 ABG O2 Content 11.0 L ABG Base Excess 4.7 A-a Gradient 63.3 Oxyhemoglobin 95.2 Total Hemoglobin 8.1 L O2 Delivery Device Nasal cannula O2 Liters/Min 2.0 FiO2 28 Sodium 128 L Potassium 3.3 L Chloride 91 L Carbon Dioxide 33 H Anion Gap 4 BUN 8 L Creatinine 0.50 L Estim Creat Clear Calc 98 Estimated GFR > 60 Glucose 80 Calcium 8.2 L Ur L.pneumophila Ag Not detected
[2024-03-11] MEDS: POTASSIUM CHLORIDE 20 MEQ ER TABLET PO (11:31)
[2024-03-11] MEDS: AZITHROMYCIN 250 MG TABLET 500 MG PO (20:55)
[2024-03-12] VITALS (31 sets, daily range): BP systolic 92–110; BP diastolic 48–66; PULSE 58–69; RESP 16–22; TEMP 36.3–36.8; O2SAT 92–100
[2024-03-12] MEDS: IPRATROPIUM 0.5 MG/ALBUTEROL SULFATE 2.5 MG AMPUL.NEB 3 ML INHALATION ×4 (01:22→20:03)
[2024-03-12 04:15] LABS: Mean Corpuscular HGB Conc 32.4 g/dl (32-36); Mean Corpuscular Hemoglobin 27.9 pg (26-34); Mean Corpuscular Volume 86.3 fl (80-100); Mean Platelet Volume 8.4 fl (7.4-10.4); Platelet Count Result 150 k/mm3 (150-375); White Blood Count 5.3 K/mm3 (4.5-10.0)
[2024-03-12 04:22] LABS: Hemoglobin 6.7 g/dL (14.0-18.0)
[2024-03-12 04:23] LABS: Hematocrit 20.7 % (42.0-52.0)
[2024-03-12 04:26] LABS: Anion Gap 2 mmol/L (4-12); Blood Urea Nitrogen 16 mg/dL (9-20); Calcium 8.2 mg/dL (8.4-10.2); Carbon Dioxide 34 mmol/L (22-30); Chloride 93 mmol/L (98-107); Estimated CRCL calculation 98 ml/min; Estimated Glomerular Filt Rate > 60; Glucose 82 mg/dL (65-110); Potassium 3.8 mmol/L (3.4-5.0); Sodium 129 mmol/L (137-145)
[2024-03-12] MEDS: LEVOTHYROXINE SODIUM 150 MCG TABLET PO (06:50)
[2024-03-12] MEDS: FLUTICASONE/UMECLIDIN/VILANTER 100-62.5-25 MCG ELLIPTA 1 PUFF INHALATION (07:07)
[2024-03-12 07:56] LABS: Hematocrit 21.7 % (42.0-52.0)
[2024-03-12 08:45] LABS: Iron 34 ug/dL (49-181)
[2024-03-12] MEDS: RANOLAZINE 500 MG TAB.ER.12H PO ×2 (08:52→21:08)
[2024-03-12] MEDS: guaiFENesin 12 HR 600 MG TABCR PO ×2 (08:52→21:08)
[2024-03-12] MEDS: SIMVASTATIN 20 MG TABLET PO (08:52)
[2024-03-12] MEDS: SODIUM CHLORIDE 1 GM TABLET PO ×3 (08:52→16:46)
[2024-03-12] MEDS: CEFEPIME 2 GM/NS 50 ML 2 GM/50 ML BAG IVPB ×2 (08:54→21:08)
[2024-03-12 08:55] LABS: Percent Iron Saturation 12 % (20-50)
[2024-03-12] MEDS: FUROSEMIDE 10 MG TABLET PO ×2 (09:01→16:45)
--- NOTE | 2024-03-12 09:19 | P.PNIM_ITS ---
Progress Note: A&P Assessment and Plan (1) Hyponatremia: Code(s): E87.1 - Hypo-osmolality and hyponatremia Status: Acute Assessment and Plan: - likely to be multifactorial- appears to be chronic chloride is 80 patient received NS 2 L in emergency room with up trending of the sodium will continue to monitor with serial BMP -nephrology consulted- appreciate recommendations 03/10- na 123 today- nephrology is following 03/11- 125 today continue to trend and monitor (2) Pleural effusion on left: Code(s): J90 - Pleural effusion, not elsewhere classified Status: Acute Assessment and Plan: likely to be a parapneumonic effusion as patient with infiltrate will start on vancomycin Zithromax and cefepime due to recent admission as well patient living in rehabilitation center 03/08- mrsa swab neg- stop vanc- downgrade to PO zithromax-- continue cefepime iv antibiotics 03/09- pt is very congested- unable to follow instructions and clear airway well - will order CPT -continue to encourage cought/deep breathing - pt/ot- out of bed-ambulate with assistance - pt is high fall risk 03/11- repeated chest xray- stable 03/12- continue therapy (3) Pneumonia: Code(s): J18.9 - Pneumonia, unspecified organism Status: Acute Assessment and Plan: blood cultures in progress was started vancomycin cefepime and Zithromax but downgraded to cefepime and azithromycin see antibiotic plan above (4) Altered mental status: Code(s): R41.82 - Altered mental status, unspecified Status: Acute Assessment and Plan: likely of endocrine metabolic etiology speech eval is completed- recommendations reviewed and ordered for diet 03/11 improving (5) Acute hypoxic respiratory failure: Code(s): J96.01 - Acute respiratory failure with hypoxia Status: Acute Assessment and Plan: on supplemental oxygen by nasal cannula abg ordered-reviewed (6) GERD (gastroesophageal reflux disease): Code(s): K21.9 - Gastro-esophageal reflux disease without esophagitis Status: Acute Assessment and Plan: PPI (7) COPD (chronic obstructive pulmonary disease): Code(s): J44.9 - Chronic obstructive pulmonary disease, unspecified Status: Acute Assessment and Plan: continue home meds not actively wheezing - encouraged IS if able to follow instructions out of bed for meals work with pt/ot (8) Protein calorie malnutrition: Code(s): E46 - Unspecified protein-calorie malnutrition Status: Acute Assessment and Plan: liberalize diet (9) Tobacco dependence: Code(s): F17.200 - Nicotine dependence, unspecified, uncomplicated Status: Acute Assessment and Plan: nicotine patch as needed (10) Normocytic anemia: Code(s): D64.9 - Anemia, unspecified Status: Acute Assessment and Plan: continue to monitor hg dropped, repeated- 7. will order iron studies transfuse 1 unit of RPBC consent is to be signed per protocol (11) Hypothyroidism: Code(s): E03.9 - Hypothyroidism, unspecified Status: Acute Assessment and Plan: h/o thyroid ca, s/p chemo,radiation - levothyroxine 175 mcg urrently tsh 60- repeated 58, low t4 - will increase dose to 200 mcg- will need an outpt f/u with repeated TSH in 6-8 months Time Spent With Patient Time with patient: Greater than 35 minutes Subjective Date/time seen: 03/12/24 09:19 Interval history: Pt is seen and examined. More alert today, able to cough up phlegm. Review of Systems Review of Systems: more alert today, able to cough secretions up ROS unobtainable: Yes unobtainable due to mental status Exam Narrative: lying in stretcher Const: General: comfortable, no acute distress, well developed, alert, awake, ill appearing chronically, average body habitus and underweight Nutritional Appearance: average body habitus and underweight Orientation/consciousness: oriented to person, oriented to place and patient oriented x3 Other: Dry mucosa HENMT: Head: normal to inspection, normocephalic and atraumatic Ears: hearing grossly normal bilaterally Face/Nose/Sinus: normal facial exam Face and sinus: normal facial exam Eyes: General: appearance normal, both eyes and all related structures Pupils: Equal, round and reactive pupils present EOM: EOMs intact bilaterally Neck: Neck: full ROM, no lymphadenopathy and no JVD Thyroid: thyroid normal Lymphatic: no lymphadenopathy noted Resp: Effort & Inspection: normal respiratory effort, able to speak in complete sentences and no respiratory distress Auscultation: clear to auscultation bilaterally and diminished lung sounds on the left in the lower lung nye Other: coarse Cardio: Jugular venous distension: no JVD Rate: regular rate Rhythm: regular rhythm Heart sounds: S1 normal heart sound present and S2 normal heart sound present : General: Yes deferred Skin: Rashes: no rashes Wounds: no wounds Neuro: General: oriented to person, oriented to place, patient oriented x3, no focal motor deficits, CN's II-XI intact bilaterally and Unable to assess gait Cranial nerves: Yes CN's II-XII intact bilaterally and Yes Equal, round and reactive pupils present Cognition (Neuro): normal cognition Speech: normal speech Gait exam (Neuro): Normal gait present and Unable to assess gait Motor exam (neuro): 5/5 motor strength present throughout Extrem: General: normal to inspection, full ROM, no joint enlargement and no pedal edema Objective Data Vital Signs Vital Signs: Vital Signs - 24 hr 03/11/24 10:00 03/11/24 11:16 03/11/24 11:44 Temperature 97.7 F Pulse Rate 64 79 Respiratory Rate 20 Blood Pressure 90/52 L Pulse Oximetry 94 94 Oxygen Delivery Nasal Cannula Oxygen Flow Rate 1 Fraction of Inspired Oxygen 03/11/24 12:00 03/11/24 13:28 03/11/24 13:51 Temperature Pulse Rate 64 62 65 Respiratory Rate 20 20 Blood Pressure Pulse Oximetry Oxygen Delivery Oxygen Flow Rate Fraction of Inspired Oxygen 03/11/24 14:00 03/11/24 15:25 03/11/24 16:36 Temperature 98.3 F Pulse Rate 62 66 67 Respiratory Rate 20 Blood Pressure 96/58 L 103/55 L Pulse Oximetry 94 Oxygen Delivery Oxygen Flow Rate Fraction of Inspired Oxygen 03/11/24 16:00 03/11/24 16:00 03/11/24 18:00 Temperature Pulse Rate 66 66 63 Respiratory Rate 20 Blood Pressure Pulse Oximetry 94 Oxygen Delivery Nasal Cannula Oxygen Flow Rate 1 Fraction of Inspired Oxygen 28 03/11/24 19:31 03/11/24 19:32 03/11/24 19:39 Temperature Pulse Rate 63 66 Respiratory Rate 20 20 Blood Pressure Pulse Oximetry 93 Oxygen Delivery Nasal Cannula Oxygen Flow Rate 2 Fraction of Inspired Oxygen 03/11/24 19:52 03/11/24 20:00 03/11/24 20:00 Temperature 98.3 F Pulse Rate 65 65 Respiratory Rate 20 Blood Pressure 100/53 L Pulse Oximetry 99 99 Oxygen Delivery Nasal Cannula Oxygen Flow Rate 1 Fraction of Inspired Oxygen 03/11/24 22:00 03/12/24 00:05 03/12/24 00:00 Temperature 98.1 F Pulse Rate 64 63 Respiratory Rate 20 Blood Pressure 110/62 Pulse Oximetry 98 98 Oxygen Delivery Nasal Cannula Oxygen Flow Rate 1 Fraction of Inspired Oxygen 03/12/24 01:22 03/12/24 00:00 03/12/24 01:30 Temperature Pulse Rate 62 63 61 Respiratory Rate 20 20 Blood Pressure Pulse Oximetry Oxygen Delivery Oxygen Flow Rate Fraction of Inspired Oxygen 03/12/24 02:00 03/12/24 04:00 03/12/24 04:43 Temperature 98.2 F Pulse Rate 62 63 Respiratory Rate 22 H Blood Pressure 92/51 L Pulse Oximetry 99 97 Oxygen Delivery Nasal Cannula Oxygen Flow Rate 1 Fraction of Inspired Oxygen 03/12/24 06:26 03/12/24 04:00 03/12/24 06:00 Temperature Pulse Rate 62 60 Respiratory Rate Blood Pressure 96/52 L Pulse Oximetry Oxygen Delivery Oxygen Flow Rate Fraction of Inspired Oxygen 03/12/24 07:08 03/12/24 07:08 03/12/24 07:16 Temperature Pulse Rate 60 58 L Respiratory Rate 20 20 Blood Pressure Pulse Oximetry 94 Oxygen Delivery Nasal Cannula Oxygen Flow Rate 2 Fraction of Inspired Oxygen 03/12/24 08:09 Temperature 98.0 F Pulse Rate 69 Respiratory Rate 20 Blood Pressure 92/48 L Pulse Oximetry 100 Oxygen Delivery Oxygen Flow Rate Fraction of Inspired Oxygen Intake/Output Intake/Output: Intake & Output 03/09/24 03/10/24 03/11/24 03/12/24 23:59 23:59 23:59 23:59 Intake Total 700 1760 1965 Output Total 400 1200 1200 750 Balance 300 560 765 -750 Meds/Results Medications: Active Medications Generic Name Dose Route Start Last Admin Trade Name Freq PRN Reason Stop Dose Admin Acetaminophen 650 mg 03/08/24 11:58 Acetaminophen 325 Mg Tablet BY MOUTH Q6H PRN Pain Al Hydrox/Mg Hydrox/Simethicone 30 ml 03/07/24 21:44 Mag Hydrox/Al Hydrox/Simeth 30 Ml Udc PO Q6H PRN Indigestion Albuterol 2.5 mg 03/08/24 16:08 03/08/24 20:55 Albuterol Sulfate Neb 2.5 Mg/3 Ml Inh INHALATION 2.5 mg Q6HRT PRN Administration Shortness Of Breath Albuterol/Ipratropium 3 ml 03/08/24 20:30 03/12/24 07:08 Ipratropium 0.5 Mg/Albuterol Sulfate 2.5 Mg Ampul.Neb 3 Ml INHALATION 3 ml Q6HRT CARYL Administration Alprazolam 1 mg 03/08/24 15:44 03/09/24 20:28 Alprazolam (*Crx) 0.5 Mg Tablet PO 1 mg TID PRN Administration anxiety Baclofen 5 mg 03/08/24 15:44 Baclofen 5 Mg Tablet PO TID PRN muscle spasms Benzonatate 100 mg 03/08/24 11:57 Benzonatate 100 Mg Capsule PO TID PRN Cough Ferrous Sulfate 142 mg 03/12/24 17:00 Ferrous Sulfate Dried 142 Mg Tabcr PO BIDWM CARYL Fluticasone/Umeclidinium/Vilanterol 1 puff 03/09/24 08:00 03/12/24 07:07 Fluticasone/Umeclidin/Vilanter 100-62.5-25 Mcg Ellipta INHALATION 1 puff DAILYRT [facility]ARYL Administration Furosemide 10 mg 03/11/24 17:00 03/12/24 09:01 Furosemide 10 Mg Tablet PO 10 mg BID [facility] Administration Guaifenesin 600 mg 03/08/24 21:00 03/12/24 08:52 Guaifenesin 12 Hr 600 Mg Tabcr PO 600 mg Q12HR [facility]L Administration Cefepime HCl 2 gm in 50 mls @ 100 mls/hr 03/08/24 10:00 03/12/24 08:54 Maxipime 2 Gm/Ns 50 Ml IVPB 100 mls/hr Q12HR [facility]L Administration Sodium Chloride 250 mls @ 30 mls/hr 03/12/24 09:18 Normal Saline Iv IV CONT 03/12/24 17:37 .Q8H20M STA Levothyroxine Sodium 150 mcg 03/09/24 06:30 03/12/24 06:50 Levothyroxine Sodium 150 Mcg Tablet PO 150 mcg DAILY@0630 [facility] Administration Ondansetron HCl 4 mg 03/07/24 20:36 Ondansetron Inj 4 Mg/2 Ml Vial IV PUSH Q4H PRN Nausea Polyethylene Glycol 17 gm 03/07/24 21:44 Polyethylene Glycol 3350 17 Gm Powd.Pack PO QAM PRN Constipation Ranolazine 500 mg 03/08/24 21:00 03/12/24 08:52 Ranolazine 500 Mg Tab.Er.12h PO 500 mg Q12HR [facility] Administration Simvastatin 20 mg 03/09/24 09:00 03/12/24 08:52 Simvastatin 20 Mg Tablet PO 20 mg DAILY [facility] Administration Sodium Chloride 1 gm 03/08/24 17:00 03/12/24 08:52 Sodium Chloride 1 Gm Tablet PO 1 gm TID [facility] Administration Radiology Results: ITS Impressions Head CT 03/07/24 19:52 Impression: No acute intracranial hemorrhage or suspicious mass effect. Modified Barium Swallow 03/10/24 11:34 IMPRESSION: 1. Aspiration. 2. Please refer to the speech therapy report for recommendations. Chest X-Ray 03/11/24 07:39 Impression: Minimal pleural effusions with possible asymmetric left-sided pulmonary edema versus pneumonia left lung. Underlying COPD. Labs Labs: Laboratory Results - last 24 hr 03/11/24 03/12/24 03/12/24 04:41 04:04 07:43 WBC 7.9 5.3 RBC 2.70 L 2.40 L Hgb 7.7 L 6.7 L* 7.0 L Hct 23.8 L 20.7 L* 21.7 L MCV 88.1 86.3 MCH 28.5 27.9 MCHC 32.4 32.4 RDW 19.3 H 19.0 H Plt Count 207 150 MPV 9.4 8.4 Sodium 129 L Potassium 3.8 Chloride 93 L Carbon Dioxide 34 H Anion Gap 2 L BUN 16 Creatinine 0.50 L Estim Creat Clear Calc 98 Estimated GFR > 60 Glucose 82 Calcium 8.2 L Iron 34 L TIBC 284 % Saturation 12 L Blood Type O Positive Antibody Screen Negative Quality VTE Prophylaxis VTE prophylaxis: mechanical ordered
--- NOTE | 2024-03-12 09:32 | P.PNNP_ITS ---
Progress Note: A&P Assessment and Plan (1) Hyponatremia: Code(s): E87.1 - Hypo-osmolality and hyponatremia Status: Chronic Assessment and Plan: * Hyponatremia * He has chronic hyponatremia. It was a bit worse on admission. * baseline sodium seems to run around 129 - 134 (at best) * multiple risk factors for hyponatremia: * pneumonia * underlying lung disease (COPD) * pleural effusion * SSRI use (lexapro) * PPI use (nexium) * hypothyroidism (restarted treatment on this admission) * evalution noted currently and on previous hospitalization: * CXR results shows early left-sided infiltrate with a large left-sided pleural effusion * CT of head shows no intracranial hemorrhage or suspicious mass effect * urine electrolytes prerenal * TSH quite elevated - levothyroxine adjusted * cortisol okay * SPEP/UPEP in the past negative; repeat testing pending * Currently on furosemide plus salt tablets. * Sodium level improved to 129 today. He is at his baseline. (2) Pneumonia: Code(s): J18.9 - Pneumonia, unspecified organism Status: Acute Assessment and Plan: * as suggested by admission imaging * on cefepime and azithromycin * Blood cultures negative to date * monitor respiratory status (3) Pleural effusion on left: Code(s): J90 - Pleural effusion, not elsewhere classified Status: Acute Assessment and Plan: * as noted by admission imaging * on antibiotics * diuretic therapy may help (4) Altered mental status: Code(s): R41.82 - Altered mental status, unspecified Status: Acute Assessment and Plan: * Improved (5) COPD (chronic obstructive pulmonary disease): Code(s): J44.9 - Chronic obstructive pulmonary disease, unspecified Status: Acute Assessment and Plan: * no evidence of exacerbation * continue home medications/inhalers Subjective Date/time seen: 03/12/24 09:32 Interval history: patient feels okay today. He is eating some breakfast. Still coughing but not short of breath. No swelling Exam Narrative: General: WD thin male in NAD Heart: normal S1 and S2; no rub or gallop Lungs: coarse breath sounds; decreased on the left Abdomen: soft, nontender, nondistended, positive bowel sounds Extremities: trace edema Skin: No rash or sq nodule Objective Data Vital Signs Vital Signs: Vital Signs - 24 hr 03/11/24 10:00 03/11/24 11:16 03/11/24 11:44 Temperature 97.7 F Pulse Rate 64 79 Respiratory Rate 20 Blood Pressure 90/52 L Pulse Oximetry 94 94 Oxygen Delivery Nasal Cannula Oxygen Flow Rate 1 Fraction of Inspired Oxygen 03/11/24 12:00 03/11/24 13:28 03/11/24 13:51 Temperature Pulse Rate 64 62 65 Respiratory Rate 20 20 Blood Pressure Pulse Oximetry Oxygen Delivery Oxygen Flow Rate Fraction of Inspired Oxygen 03/11/24 14:00 03/11/24 15:25 03/11/24 16:36 Temperature 98.3 F Pulse Rate 62 66 67 Respiratory Rate 20 Blood Pressure 96/58 L 103/55 L Pulse Oximetry 94 Oxygen Delivery Oxygen Flow Rate Fraction of Inspired Oxygen 03/11/24 16:00 03/11/24 16:00 03/11/24 18:00 Temperature Pulse Rate 66 66 63 Respiratory Rate 20 Blood Pressure Pulse Oximetry 94 Oxygen Delivery Nasal Cannula Oxygen Flow Rate 1 Fraction of Inspired Oxygen 28 03/11/24 19:31 03/11/24 19:32 03/11/24 19:39 Temperature Pulse Rate 63 66 Respiratory Rate 20 20 Blood Pressure Pulse Oximetry 93 Oxygen Delivery Nasal Cannula Oxygen Flow Rate 2 Fraction of Inspired Oxygen 03/11/24 19:52 03/11/24 20:00 03/11/24 20:00 Temperature 98.3 F Pulse Rate 65 65 Respiratory Rate 20 Blood Pressure 100/53 L Pulse Oximetry 99 99 Oxygen Delivery Nasal Cannula Oxygen Flow Rate 1 Fraction of Inspired Oxygen 03/11/24 22:00 03/12/24 00:05 03/12/24 00:00 Temperature 98.1 F Pulse Rate 64 63 Respiratory Rate 20 Blood Pressure 110/62 Pulse Oximetry 98 98 Oxygen Delivery Nasal Cannula Oxygen Flow Rate 1 Fraction of Inspired Oxygen 03/12/24 01:22 03/12/24 00:00 03/12/24 01:30 Temperature Pulse Rate 62 63 61 Respiratory Rate 20 20 Blood Pressure Pulse Oximetry Oxygen Delivery Oxygen Flow Rate Fraction of Inspired Oxygen 03/12/24 02:00 03/12/24 04:00 03/12/24 04:43 Temperature 98.2 F Pulse Rate 62 63 Respiratory Rate 22 H Blood Pressure 92/51 L Pulse Oximetry 99 97 Oxygen Delivery Nasal Cannula Oxygen Flow Rate 1 Fraction of Inspired Oxygen 03/12/24 06:26 03/12/24 04:00 03/12/24 06:00 Temperature Pulse Rate 62 60 Respiratory Rate Blood Pressure 96/52 L Pulse Oximetry Oxygen Delivery Oxygen Flow Rate Fraction of Inspired Oxygen 03/12/24 07:08 03/12/24 07:08 03/12/24 07:16 Temperature Pulse Rate 60 58 L Respiratory Rate 20 20 Blood Pressure Pulse Oximetry 94 Oxygen Delivery Nasal Cannula Oxygen Flow Rate 2 Fraction of Inspired Oxygen 03/12/24 08:09 Temperature 98.0 F Pulse Rate 69 Respiratory Rate 20 Blood Pressure 92/48 L Pulse Oximetry 100 Oxygen Delivery Oxygen Flow Rate Fraction of Inspired Oxygen Intake/Output Intake/Output: Intake & Output 03/09/24 03/10/24 03/11/24 03/12/24 23:59 23:59 23:59 23:59 Intake Total 700 1760 1965 Output Total 400 1200 1200 750 Balance 300 560 765 -750 Meds/Results Medications: Active Medications Generic Name Dose Route Start Last Admin Trade Name Freq PRN Reason Stop Dose Admin Acetaminophen 650 mg 03/08/24 11:58 Acetaminophen 325 Mg Tablet BY MOUTH Q6H PRN Pain Al Hydrox/Mg Hydrox/Simethicone 30 ml 03/07/24 21:44 Mag Hydrox/Al Hydrox/Simeth 30 Ml Udc PO Q6H PRN Indigestion Albuterol 2.5 mg 03/08/24 16:08 03/08/24 20:55 Albuterol Sulfate Neb 2.5 Mg/3 Ml Inh INHALATION 2.5 mg Q6HRT PRN Administration Shortness Of Breath Albuterol/Ipratropium 3 ml 03/08/24 20:30 03/12/24 07:08 Ipratropium 0.5 Mg/Albuterol Sulfate 2.5 Mg Ampul.Neb 3 Ml INHALATION 3 ml Q6HRT CARYL Administration Alprazolam 1 mg 03/08/24 15:44 03/09/24 20:28 Alprazolam (*Crx) 0.5 Mg Tablet PO 1 mg TID PRN Administration anxiety Baclofen 5 mg 03/08/24 15:44 Baclofen 5 Mg Tablet PO TID PRN muscle spasms Benzonatate 100 mg 03/08/24 11:57 Benzonatate 100 Mg Capsule PO TID PRN Cough Ferrous Sulfate 142 mg 03/12/24 08:00 Ferrous Sulfate Dried 142 Mg Tabcr PO BIDWM [facility] Fluticasone/Umeclidinium/Vilanterol 1 puff 03/09/24 08:00 03/12/24 07:07 Fluticasone/Umeclidin/Vilanter 100-62.5-25 Mcg Ellipta INHALATION 1 puff DAILYRT [facility] Administration Furosemide 10 mg 03/11/24 17:00 03/12/24 09:01 Furosemide 10 Mg Tablet PO 10 mg BID [facility] Administration Guaifenesin 600 mg 03/08/24 21:00 03/12/24 08:52 Guaifenesin 12 Hr 600 Mg Tabcr PO 600 mg Q12HR [facility] Administration Cefepime HCl 2 gm in 50 mls @ 100 mls/hr 03/08/24 10:00 03/12/24 08:54 Maxipime 2 Gm/Ns 50 Ml IVPB 100 mls/hr Q12HR [facility] Administration Sodium Chloride 250 mls @ 30 mls/hr 03/12/24 09:18 Normal Saline Iv IV CONT 03/12/24 17:37 .Q8H20M STA Levothyroxine Sodium 150 mcg 03/09/24 06:30 03/12/24 06:50 Levothyroxine Sodium 150 Mcg Tablet PO 150 mcg DAILY@0630 [facility] Administration Ondansetron HCl 4 mg 03/07/24 20:36 Ondansetron Inj 4 Mg/2 Ml Vial IV PUSH Q4H PRN Nausea Polyethylene Glycol 17 gm 03/07/24 21:44 Polyethylene Glycol 3350 17 Gm Powd.Pack PO QAM PRN Constipation Ranolazine 500 mg 03/08/24 21:00 03/12/24 08:52 Ranolazine 500 Mg Tab.Er.12h PO 500 mg Q12HR [facility] Administration Simvastatin 20 mg 03/09/24 09:00 03/12/24 08:52 Simvastatin 20 Mg Tablet PO 20 mg DAILY [facility] Administration Sodium Chloride 1 gm 03/08/24 17:00 03/12/24 08:52 Sodium Chloride 1 Gm Tablet PO 1 gm TID [facility]ARYL Administration Radiology Results: ITS Impressions Head CT 03/07/24 19:52 Impression: No acute intracranial hemorrhage or suspicious mass effect. Modified Barium Swallow 03/10/24 11:34 IMPRESSION: 1. Aspiration. 2. Please refer to the speech therapy report for recommendations. Chest X-Ray 03/11/24 07:39 Impression: Minimal pleural effusions with possible asymmetric left-sided pulmonary edema versus pneumonia left lung. Underlying COPD. Labs Labs: Laboratory Results - last 24 hr 03/11/24 03/12/24 03/12/24 04:41 04:04 07:43 WBC 7.9 5.3 RBC 2.70 L 2.40 L Hgb 7.7 L 6.7 L* 7.0 L Hct 23.8 L 20.7 L* 21.7 L MCV 88.1 86.3 MCH 28.5 27.9 MCHC 32.4 32.4 RDW 19.3 H 19.0 H Plt Count 207 150 MPV 9.4 8.4 Sodium 129 L Potassium 3.8 Chloride 93 L Carbon Dioxide 34 H Anion Gap 2 L BUN 16 Creatinine 0.50 L Estim Creat Clear Calc 98 Estimated GFR > 60 Glucose 82 Calcium 8.2 L Iron 34 L TIBC 284 % Saturation 12 L Blood Type O Positive Antibody Screen Negative
[2024-03-12] MEDS: SODIUM CHLORIDE 0.9% IV 250 ML 30 ML IV CONT (09:34)
[2024-03-12] MEDS: FERROUS SULFATE DRIED 142 MG TABCR PO ×2 (09:34→16:45)
[2024-03-12] MEDS: TUBING, BLOOD PLUM PUMP TUBING 1 EACH XX (10:22)
[2024-03-12 14:54] LABS: Hematocrit 24.3 % (42.0-52.0); Hemoglobin 7.9 g/dL (14.0-18.0)
--- NOTE | 2024-03-12 17:27 | PC.NURSE ---
This patient, Cecilio Bergeron, was transferred to [ [id number]] on 03/12/24 at 1715. Personal belongings sent with patient. Report given to [ Caitlin SMITH]. Appropriate documentation sent with patient.
--- NOTE | 2024-03-12 17:31 | ADMGEN ---
This patient, Cecilio Bergeron, was admitted to Medical Room 251-01. Patient/family oriented to hospital policies and general routines including ID bracelet, bed and alarms, visiting hours, pain management, procedures, bathroom and other care routines, personal items, smoking policy, room service/diet, and visiting hours. Information on how to activate the Rapid Response Team has been discussed. Patient/Family are encouraged to report perceived risks to care and to ask questions if they do not understand what they are told or what they should do.
--- NOTE | 2024-03-12 17:31 | PC.NURSE ---
This patient, Cecilio Bergeron, was received from [ IMU] on 03/12/24 at 1731. Patient/family oriented to unit policies and routines
[2024-03-12] MEDS: polyethylene glycoL 3350 17 GM POWD.PACK PO (18:01)
[2024-03-13] VITALS (21 sets, daily range): BP systolic 110–128; BP diastolic 58–71; PULSE 53–73; RESP 16–20; TEMP 36.2–36.6; O2SAT 93–100
[2024-03-13] MEDS: IPRATROPIUM 0.5 MG/ALBUTEROL SULFATE 2.5 MG AMPUL.NEB 3 ML INHALATION ×4 (02:29→21:20)
[2024-03-13] MEDS: LEVOTHYROXINE SODIUM 150 MCG TABLET PO (06:11)
[2024-03-13 06:12] LABS: Hematocrit 26.8 % (42.0-52.0); Hemoglobin 8.6 g/dL (14.0-18.0); Mean Corpuscular HGB Conc 32.1 g/dl (32-36); Mean Corpuscular Volume 87.3 fl (80-100); Platelet Count Result 176 k/mm3 (150-375); Red Blood Count 3.07 M/mm3 (4.6-6.20); Red Cell Distribution Width 18.5 % (11.5-14.5); White Blood Count 4.9 K/mm3 (4.5-10.0)
[2024-03-13 06:23] LABS: Alanine Aminotransferase 12 U/L (6-50); Alkaline Phosphatase 105 U/L (38-126); Anion Gap 2 mmol/L (4-12); Aspartate Amino Transferase 27 U/L (17-59); Bilirubin,Total 0.8 mg/dL (0.2-1.3); Blood Urea Nitrogen 15 mg/dL (9-20); Calcium 8.3 mg/dL (8.4-10.2); Carbon Dioxide 34 mmol/L (22-30); Chloride 91 mmol/L (98-107); Estimated CRCL calculation 103 ml/min; Estimated Glomerular Filt Rate > 60; Glucose 76 mg/dL (65-110); Phosphorus 2.8 mg/dL (2.5-4.5); Potassium 4.1 mmol/L (3.4-5.0); Sodium 127 mmol/L (137-145)
--- NOTE | 2024-03-13 07:19 | P.PNIM_ITS ---
Progress Note: A&P Assessment and Plan (1) Hyponatremia: Code(s): E87.1 - Hypo-osmolality and hyponatremia Status: Acute Assessment and Plan: - likely to be multifactorial- appears to be chronic chloride is 80 patient received NS 2 L in emergency room with up trending of the sodium will continue to monitor with serial BMP -nephrology consulted- appreciate recommendations 03/10- na 123 today- nephrology is following 03/11- 125 today continue to trend and monitor 03/13- * sodium level dropped to 127. nephrology increasing lasix and salt tabs (2) Pleural effusion on left: Code(s): J90 - Pleural effusion, not elsewhere classified Status: Acute Assessment and Plan: likely to be a parapneumonic effusion as patient with infiltrate will start on vancomycin Zithromax and cefepime due to recent admission as well patient living in rehabilitation center 03/08- mrsa swab neg- stop vanc- downgrade to PO zithromax-- continue cefepime iv antibiotics 03/09- pt is very congested- unable to follow instructions and clear airway well - will order CPT -continue to encourage cought/deep breathing - pt/ot- out of bed-ambulate with assistance - pt is high fall risk 03/11- repeated chest xray- stable 03/12- continue therapy completed zithromax-will be done with cefepime within (3) Pneumonia: Code(s): J18.9 - Pneumonia, unspecified organism Status: Acute Assessment and Plan: blood cultures in progress was started vancomycin cefepime and Zithromax but downgraded to cefepime and azithromycin see antibiotic plan above (4) Altered mental status: Code(s): R41.82 - Altered mental status, unspecified Status: Acute Assessment and Plan: likely of endocrine metabolic etiology speech eval is completed- recommendations reviewed and ordered for diet 03/11 improving (5) Acute hypoxic respiratory failure: Code(s): J96.01 - Acute respiratory failure with hypoxia Status: Acute Assessment and Plan: on supplemental oxygen by nasal cannula abg ordered-reviewed (6) GERD (gastroesophageal reflux disease): Code(s): K21.9 - Gastro-esophageal reflux disease without esophagitis Status: Acute Assessment and Plan: PPI (7) COPD (chronic obstructive pulmonary disease): Code(s): J44.9 - Chronic obstructive pulmonary disease, unspecified Status: Acute Assessment and Plan: continue home meds not actively wheezing - encouraged IS if able to follow instructions out of bed for meals work with pt/ot (8) Protein calorie malnutrition: Code(s): E46 - Unspecified protein-calorie malnutrition Status: Acute Assessment and Plan: liberalize diet (9) Tobacco dependence: Code(s): F17.200 - Nicotine dependence, unspecified, uncomplicated Status: Acute Assessment and Plan: nicotine patch as needed (10) Normocytic anemia: Code(s): D64.9 - Anemia, unspecified Status: Acute Assessment and Plan: continue to monitor hg dropped, repeated- 7. will order iron studies transfuse 1 unit of RPBC consent is to be signed per protocol 11.120 iron studies done- will start on iron supplements -hg rechecked- stable this am (11) Hypothyroidism: Code(s): E03.9 - Hypothyroidism, unspecified Status: Acute Assessment and Plan: h/o thyroid ca, s/p chemo,radiation - levothyroxine 175 mcg urrently tsh 60- repeated 58, low t4 - will increase dose to 200 mcg- will need an outpt f/u with repeated TSH in 6-8 months Time Spent With Patient Time with patient: Greater than 35 minutes Subjective Date/time seen: 03/13/24 07:19 Interval history: patient feels okay today. He is eating some breakfast. No swelling. his sodium return back to his baseline. she is able to cough secretions up better. anticipate discharge tomorrow if stable overnight Review of Systems Review of Systems: more alert today, able to cough secretions up ROS unobtainable: Yes unobtainable due to mental status Exam Narrative: lying in stretcher Const: General: comfortable, no acute distress, well developed, alert, awake, ill appearing chronically, average body habitus and underweight Nutritional Appearance: average body habitus and underweight Orientation/consciousness: oriented to person, oriented to place and patient oriented x3 Other: Dry mucosa HENMT: Head: normal to inspection, normocephalic and atraumatic Ears: hearing grossly normal bilaterally Face/Nose/Sinus: normal facial exam Face and sinus: normal facial exam Eyes: General: appearance normal, both eyes and all related structures Pupils: Equal, round and reactive pupils present EOM: EOMs intact bilaterally Neck: Neck: full ROM, no lymphadenopathy and no JVD Thyroid: thyroid normal Lymphatic: no lymphadenopathy noted Resp: Effort & Inspection: normal respiratory effort, able to speak in complete sentences and no respiratory distress Auscultation: clear to auscultation bilaterally and diminished lung sounds on the left in the lower lung nye Other: coarse Cardio: Jugular venous distension: no JVD Rate: regular rate Rhythm: regular rhythm Heart sounds: S1 normal heart sound present and S2 normal heart sound present : General: Yes deferred Skin: Rashes: no rashes Wounds: no wounds Neuro: General: oriented to person, oriented to place, patient oriented x3, no focal motor deficits, CN's II-XI intact bilaterally and Unable to assess gait Cranial nerves: Yes CN's II-XII intact bilaterally and Yes Equal, round and reactive pupils present Cognition (Neuro): normal cognition Speech: normal speech Gait exam (Neuro): Normal gait present and Unable to assess gait Motor exam (neuro): 5/5 motor strength present throughout Extrem: General: normal to inspection, full ROM, no joint enlargement and no pedal edema Objective Data Vital Signs Vital Signs: Vital Signs - 24 hr 03/12/24 08:09 03/12/24 10:14 03/12/24 10:29 Temperature 98.0 F 97.8 F 97.3 F L Pulse Rate 69 63 63 Respiratory Rate 20 16 18 Blood Pressure 92/48 L 97/56 L 97/56 L Pulse Oximetry 100 93 93 Oxygen Delivery Oxygen Flow Rate 03/12/24 08:00 03/12/24 10:49 03/12/24 11:33 Temperature 97.6 F 98.2 F Pulse Rate 64 66 Respiratory Rate 16 20 Blood Pressure 97/55 L 102/66 Pulse Oximetry 100 96 95 Oxygen Delivery Nasal Cannula Oxygen Flow Rate 1 03/12/24 12:00 03/12/24 11:49 03/12/24 08:00 Temperature 98.2 F Pulse Rate 66 65 Respiratory Rate 20 Blood Pressure 102/66 Pulse Oximetry 95 95 Oxygen Delivery Room Air Oxygen Flow Rate 03/12/24 10:00 03/12/24 12:00 03/12/24 12:49 Temperature 98.2 F Pulse Rate 67 68 68 Respiratory Rate 18 Blood Pressure 103/60 Pulse Oximetry 92 Oxygen Delivery Oxygen Flow Rate 03/12/24 13:33 03/12/24 13:41 03/12/24 13:46 Temperature 98.1 F Pulse Rate 64 62 65 Respiratory Rate 20 20 20 Blood Pressure 106/58 L Pulse Oximetry 98 Oxygen Delivery Oxygen Flow Rate 03/12/24 15:26 03/12/24 16:00 03/12/24 20:04 Temperature 97.9 F Pulse Rate 69 68 63 Respiratory Rate 18 20 Blood Pressure 103/58 L Pulse Oximetry 94 Oxygen Delivery Oxygen Flow Rate 03/12/24 20:06 03/12/24 21:02 03/12/24 20:00 Temperature 98.1 F Pulse Rate 62 Respiratory Rate 16 Blood Pressure 105/62 Pulse Oximetry 92 92 Oxygen Delivery Room Air Room Air Oxygen Flow Rate 03/12/24 20:00 03/13/24 00:00 03/13/24 02:30 Temperature Pulse Rate 63 63 59 L Respiratory Rate 20 Blood Pressure Pulse Oximetry Oxygen Delivery Oxygen Flow Rate 03/12/24 20:15 03/13/24 02:39 03/13/24 04:00 Temperature Pulse Rate 63 56 L 59 L Respiratory Rate 20 19 Blood Pressure Pulse Oximetry Oxygen Delivery Oxygen Flow Rate 03/13/24 06:14 Temperature 97.8 F Pulse Rate 73 Respiratory Rate 18 Blood Pressure 110/58 L Pulse Oximetry 93 Oxygen Delivery Oxygen Flow Rate Intake/Output Intake/Output: Intake & Output 03/10/24 03/11/24 03/12/24 03/13/24 23:59 23:59 23:59 23:59 Intake Total 1760 1965 2630 240 Output Total 1200 1200 1902 1200 Balance 560 765 728 960 Meds/Results Medications: Active Medications Generic Name Dose Route Start Last Admin Trade Name Guruq PRN Reason Stop Dose Admin Acetaminophen 650 mg 03/08/24 11:58 Acetaminophen 325 Mg Tablet BY MOUTH Q6H PRN Pain Al Hydrox/Mg Hydrox/Simethicone 30 ml 03/07/24 21:44 Mag Hydrox/Al Hydrox/Simeth 30 Ml Udc PO Q6H PRN Indigestion Albuterol 2.5 mg 03/08/24 16:08 03/08/24 20:55 Albuterol Sulfate Neb 2.5 Mg/3 Ml Inh INHALATION 2.5 mg Q6HRT PRN Administration Shortness Of Breath Albuterol/Ipratropium 3 ml 03/08/24 20:30 03/13/24 02:29 Ipratropium 0.5 Mg/Albuterol Sulfate 2.5 Mg Ampul.Neb 3 Ml INHALATION 3 ml Q6HRT CARYL Administration Alprazolam 1 mg 03/08/24 15:44 03/09/24 20:28 Alprazolam (*Crx) 0.5 Mg Tablet PO 1 mg TID PRN Administration anxiety Baclofen 5 mg 03/08/24 15:44 Baclofen 5 Mg Tablet PO TID PRN muscle spasms Benzonatate 100 mg 03/08/24 11:57 Benzonatate 100 Mg Capsule PO TID PRN Cough Ferrous Sulfate 142 mg 03/12/24 08:00 03/12/24 16:45 Ferrous Sulfate Dried 142 Mg Tabcr PO 142 mg BIDWM CARYL Administration Fluticasone/Umeclidinium/Vilanterol 1 puff 03/09/24 08:00 03/12/24 07:07 Fluticasone/Umeclidin/Vilanter 100-62.5-25 Mcg Ellipta INHALATION 1 puff DAILYRT CARYL Administration Furosemide 10 mg 03/11/24 17:00 03/12/24 16:45 Furosemide 10 Mg Tablet PO 10 mg BID CARYL Administration Guaifenesin 600 mg 03/08/24 21:00 03/12/24 21:08 Guaifenesin 12 Hr 600 Mg Tabcr PO 600 mg Q12HR CARYL Administration Cefepime HCl 2 gm in 50 mls @ 100 mls/hr 03/08/24 10:00 03/12/24 21:08 Maxipime 2 Gm/Ns 50 Ml IVPB 100 mls/hr Q12HR CARYL Administration Levothyroxine Sodium 150 mcg 03/09/24 06:30 03/13/24 06:11 Levothyroxine Sodium 150 Mcg Tablet PO 150 mcg DAILY@0630 CARYL Administration Ondansetron HCl 4 mg 03/07/24 20:36 Ondansetron Inj 4 Mg/2 Ml Vial IV PUSH Q4H PRN Nausea Polyethylene Glycol 17 gm 03/07/24 21:44 03/12/24 18:01 Polyethylene Glycol 3350 17 Gm Powd.Pack PO 17 gm QAM PRN Administration Constipation Ranolazine 500 mg 03/08/24 21:00 03/12/24 21:08 Ranolazine 500 Mg Tab.Er.12h PO 500 mg Q12HR CARYL Administration Simvastatin 20 mg 03/09/24 09:00 03/12/24 08:52 Simvastatin 20 Mg Tablet PO 20 mg DAILY CARYL Administration Sodium Chloride 1 gm 03/08/24 17:00 03/12/24 16:46 Sodium Chloride 1 Gm Tablet PO 1 gm TID CARYL Administration Radiology Results: ITS Impressions Head CT 03/07/24 19:52 Impression: No acute intracranial hemorrhage or suspicious mass effect. Modified Barium Swallow 03/10/24 11:34 IMPRESSION: 1. Aspiration. 2. Please refer to the speech therapy report for recommendations. Chest X-Ray 03/11/24 07:39 Impression: Minimal pleural effusions with possible asymmetric left-sided pulmonary edema versus pneumonia left lung. Underlying COPD. Labs Labs: Laboratory Results - last 24 hr 03/12/24 03/12/24 03/13/24 07:43 14:41 05:59 WBC 4.9 RBC 3.07 L Hgb 7.0 L 7.9 L 8.6 L Hct 21.7 L 24.3 L 26.8 L MCV 87.3 MCH 28.0 MCHC 32.1 RDW 18.5 H Plt Count 176 MPV 9.0 Sodium 127 L Potassium 4.1 Chloride 91 L Carbon Dioxide 34 H Anion Gap 2 L BUN 15 Creatinine 0.50 L Estim Creat Clear Calc 103 Estimated GFR > 60 Glucose 76 Calcium 8.3 L Phosphorus 2.8 Iron 34 L TIBC 284 % Saturation 12 L Total Bilirubin 0.8 AST 27 ALT 12 Alkaline Phosphatase 105 Total Protein 6.0 L Albumin 3.0 L Blood Type O Positive Antibody Screen Negative Crossmatch See Detail Quality VTE Prophylaxis VTE prophylaxis: mechanical ordered
[2024-03-13] MEDS: FLUTICASONE/UMECLIDIN/VILANTER 100-62.5-25 MCG ELLIPTA 1 PUFF INHALATION (07:42)
--- NOTE | 2024-03-13 09:02 | P.PNNP_ITS ---
Progress Note: A&P Assessment and Plan (1) Hyponatremia: Code(s): E87.1 - Hypo-osmolality and hyponatremia Status: Chronic Assessment and Plan: * Hyponatremia * He has chronic hyponatremia. It was a bit worse on admission. * baseline sodium seems to run around 129 - 134 (at best) * multiple risk factors for hyponatremia: * pneumonia * underlying lung disease (COPD) * pleural effusion * SSRI use (lexapro) * PPI use (nexium) * hypothyroidism (restarted treatment on this admission) * evalution noted currently and on previous hospitalization: * CXR results shows early left-sided infiltrate with a large left-sided pleural effusion * CT of head shows no intracranial hemorrhage or suspicious mass effect * urine electrolytes prerenal * TSH quite elevated - levothyroxine adjusted * cortisol okay * SPEP/UPEP in the past negative; repeat testing pending * Currently on furosemide plus salt tablets. * sodium level dropped to 127. will increase lasix and salt tabs. (2) Pneumonia: Code(s): J18.9 - Pneumonia, unspecified organism Status: Acute Assessment and Plan: * as suggested by admission imaging * on cefepime and azithromycin * Blood cultures negative to date * monitor respiratory status (3) Pleural effusion on left: Code(s): J90 - Pleural effusion, not elsewhere classified Status: Acute Assessment and Plan: * as noted by admission imaging * on antibiotics * diuretic therapy may help (4) Altered mental status: Code(s): R41.82 - Altered mental status, unspecified Status: Acute Assessment and Plan: * Improved (5) COPD (chronic obstructive pulmonary disease): Code(s): J44.9 - Chronic obstructive pulmonary disease, unspecified Status: Acute Assessment and Plan: * no evidence of exacerbation * continue home medications/inhalers Subjective Date/time seen: 03/13/24 09:02 Interval history: awake. tolerating soft diet. he has a lot of liquids on his tray for breakfast. Exam Narrative: General: WD thin male in NAD Heart: normal S1 and S2; no rub Lungs: coarse breath sounds; decreased on the left Abdomen: soft, nontender, nondistended, positive bowel sounds Extremities: trace edema, no cyanosis Skin: No rash or sq nodule Objective Data Vital Signs Vital Signs: Vital Signs - 24 hr 03/12/24 10:14 03/12/24 10:29 03/12/24 10:49 Temperature 97.8 F 97.3 F L 97.6 F Pulse Rate 63 63 64 Respiratory Rate 16 18 16 Blood Pressure 97/56 L 97/56 L 97/55 L Pulse Oximetry 93 93 96 Oxygen Delivery 03/12/24 11:33 03/12/24 12:00 03/12/24 11:49 Temperature 98.2 F 98.2 F Pulse Rate 66 66 Respiratory Rate 20 20 Blood Pressure 102/66 102/66 Pulse Oximetry 95 95 95 Oxygen Delivery Room Air 03/12/24 10:00 03/12/24 12:00 03/12/24 12:49 Temperature 98.2 F Pulse Rate 67 68 68 Respiratory Rate 18 Blood Pressure 103/60 Pulse Oximetry 92 Oxygen Delivery 03/12/24 13:33 03/12/24 13:41 03/12/24 13:46 Temperature 98.1 F Pulse Rate 64 62 65 Respiratory Rate 20 20 20 Blood Pressure 106/58 L Pulse Oximetry 98 Oxygen Delivery 03/12/24 15:26 03/12/24 16:00 03/12/24 20:04 Temperature 97.9 F Pulse Rate 69 68 63 Respiratory Rate 18 20 Blood Pressure 103/58 L Pulse Oximetry 94 Oxygen Delivery 03/12/24 20:06 03/12/24 21:02 03/12/24 20:00 Temperature 98.1 F Pulse Rate 62 Respiratory Rate 16 Blood Pressure 105/62 Pulse Oximetry 92 92 Oxygen Delivery Room Air Room Air 03/12/24 20:00 03/13/24 00:00 03/13/24 02:30 Temperature Pulse Rate 63 63 59 L Respiratory Rate 20 Blood Pressure Pulse Oximetry Oxygen Delivery 03/12/24 20:15 03/13/24 02:39 03/13/24 04:00 Temperature Pulse Rate 63 56 L 59 L Respiratory Rate 20 19 Blood Pressure Pulse Oximetry Oxygen Delivery 03/13/24 06:14 03/13/24 07:33 03/13/24 07:33 Temperature 97.8 F Pulse Rate 73 56 L Respiratory Rate 18 18 Blood Pressure 110/58 L Pulse Oximetry 93 93 Oxygen Delivery Room Air 03/13/24 07:45 03/13/24 07:53 03/13/24 08:14 Temperature Pulse Rate 54 L Respiratory Rate 18 18 18 Blood Pressure Pulse Oximetry 93 93 Oxygen Delivery Room Air Room Air Intake/Output Intake/Output: Intake & Output 03/10/24 03/11/24 03/12/24 03/13/24 23:59 23:59 23:59 23:59 Intake Total 1760 1965 2630 240 Output Total 1200 1200 1902 1200 Balance 560 735 865 -444 Meds/Results Medications: Active Medications Generic Name Dose Route Start Last Admin Trade Name Freq PRN Reason Stop Dose Admin Acetaminophen 650 mg 03/08/24 11:58 Acetaminophen 325 Mg Tablet BY MOUTH Q6H PRN Pain Al Hydrox/Mg Hydrox/Simethicone 30 ml 03/07/24 21:44 Mag Hydrox/Al Hydrox/Simeth 30 Ml Udc PO Q6H PRN Indigestion Albuterol 2.5 mg 03/08/24 16:08 03/08/24 20:55 Albuterol Sulfate Neb 2.5 Mg/3 Ml Inh INHALATION 2.5 mg Q6HRT PRN Administration Shortness Of Breath Albuterol/Ipratropium 3 ml 03/08/24 20:30 03/13/24 07:33 Ipratropium 0.5 Mg/Albuterol Sulfate 2.5 Mg Ampul.Neb 3 Ml INHALATION 3 ml Q6HRT CARYL Administration Alprazolam 1 mg 03/08/24 15:44 03/09/24 20:28 Alprazolam (*Crx) 0.5 Mg Tablet PO 1 mg TID PRN Administration anxiety Baclofen 5 mg 03/08/24 15:44 Baclofen 5 Mg Tablet PO TID PRN muscle spasms Benzonatate 100 mg 03/08/24 11:57 Benzonatate 100 Mg Capsule PO TID PRN Cough Ferrous Sulfate 142 mg 03/12/24 08:00 03/12/24 16:45 Ferrous Sulfate Dried 142 Mg Tabcr PO 142 mg BIDWM CARYL Administration Fluticasone/Umeclidinium/Vilanterol 1 puff 03/09/24 08:00 03/13/24 07:42 Fluticasone/Umeclidin/Vilanter 100-62.5-25 Mcg Ellipta INHALATION 1 puff DAILYRT CARYL Administration Furosemide 10 mg 03/11/24 17:00 03/12/24 16:45 Furosemide 10 Mg Tablet PO 10 mg BID CARYL Administration Guaifenesin 600 mg 03/08/24 21:00 03/12/24 21:08 Guaifenesin 12 Hr 600 Mg Tabcr PO 600 mg Q12HR CARYL Administration Cefepime HCl 2 gm in 50 mls @ 100 mls/hr 03/08/24 10:00 03/12/24 21:08 Maxipime 2 Gm/Ns 50 Ml IVPB 03/14/24 09:29 100 mls/hr Q12HR CARYL Administration Levothyroxine Sodium 150 mcg 03/09/24 06:30 03/13/24 06:11 Levothyroxine Sodium 150 Mcg Tablet PO 150 mcg DAILY@0630 CARYL Administration Ondansetron HCl 4 mg 03/07/24 20:36 Ondansetron Inj 4 Mg/2 Ml Vial IV PUSH Q4H PRN Nausea Polyethylene Glycol 17 gm 03/07/24 21:44 03/12/24 18:01 Polyethylene Glycol 3350 17 Gm Powd.Pack PO 17 gm QAM PRN Administration Constipation Ranolazine 500 mg 03/08/24 21:00 03/12/24 21:08 Ranolazine 500 Mg Tab.Er.12h PO 500 mg Q12HR CARYL Administration Simvastatin 20 mg 03/09/24 09:00 03/12/24 08:52 Simvastatin 20 Mg Tablet PO 20 mg DAILY CARYL Administration Sodium Chloride 1 gm 03/08/24 17:00 03/12/24 16:46 Sodium Chloride 1 Gm Tablet PO 1 gm TID CARYL Administration Radiology Results: ITS Impressions Head CT 03/07/24 19:52 Impression: No acute intracranial hemorrhage or suspicious mass effect. Modified Barium Swallow 03/10/24 11:34 IMPRESSION: 1. Aspiration. 2. Please refer to the speech therapy report for recommendations. Chest X-Ray 03/11/24 07:39 Impression: Minimal pleural effusions with possible asymmetric left-sided pulmonary edema versus pneumonia left lung. Underlying COPD. Labs Labs: Laboratory Results - last 24 hr 03/12/24 03/12/24 03/13/24 07:43 14:41 05:59 WBC 4.9 RBC 3.07 L Hgb 7.9 L 8.6 L Hct 24.3 L 26.8 L MCV 87.3 MCH 28.0 MCHC 32.1 RDW 18.5 H Plt Count 176 MPV 9.0 Sodium 127 L Potassium 4.1 Chloride 91 L Carbon Dioxide 34 H Anion Gap 2 L BUN 15 Creatinine 0.50 L Estim Creat Clear Calc 103 Estimated GFR > 60 Glucose 76 Calcium 8.3 L Phosphorus 2.8 % Saturation 12 L Total Bilirubin 0.8 AST 27 ALT 12 Alkaline Phosphatase 105 Total Protein 6.0 L Albumin 3.0 L Blood Type O Positive Antibody Screen Negative Crossmatch See Detail
[2024-03-13] MEDS: CEFEPIME 2 GM/NS 50 ML 2 GM/50 ML BAG IVPB ×2 (09:26→20:19)
[2024-03-13] MEDS: RANOLAZINE 500 MG TAB.ER.12H PO ×2 (09:27→20:23)
[2024-03-13] MEDS: SIMVASTATIN 20 MG TABLET PO (09:27)
[2024-03-13] MEDS: guaiFENesin 12 HR 600 MG TABCR PO ×2 (09:29→20:22)
[2024-03-13] MEDS: FERROUS SULFATE DRIED 142 MG TABCR PO ×2 (09:29→16:38)
[2024-03-13] MEDS: FUROSEMIDE 20 MG TABLET PO ×2 (10:18→16:38)
[2024-03-13] MEDS: SODIUM CHLORIDE 1 GM TABLET 2 GM PO ×2 (10:18→16:40)
--- NOTE | 2024-03-13 10:26 | PCNFU ---
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 Pt current nutrition is Minced and Moist level 5, level 3 moderately thick liquids. Ensure compact BID, NICHOLAS BID Nutrition recommendation: continue with current plan of care Last recorded weight is 64.7 kg. Bowel Motility: +BM 03/12 Labs Reviewed: Hgb:8.6, HCT:26.8, Alb:3.0, NA:127, Cr:0.5 Meds Noted: Fe, lasix, zofran Skin: stage III to sacrum Additional Notes: Pt had an MBS, recommendations for a modified diet. Orders in place. Intake good at 50-100% most all meals. pt tolerating well. Agree with orders, encourage supplements. Monitor intake, wt, labs, skin. Follow up in 5 days.
--- NOTE | 2024-03-13 14:01 | PC.NURSE ---
On 03/13/24, the student, [Casimiro Wagner], provided care and completed [facility] documentation on this patient. I have reviewed the student's documentation and agree with the findings.
[2024-03-14] VITALS (18 sets, daily range): BP systolic 100–130; BP diastolic 57–70; PULSE 57–104; RESP 14–20; TEMP 36.5–36.9; O2SAT 63–95
[2024-03-14] MEDS: IPRATROPIUM 0.5 MG/ALBUTEROL SULFATE 2.5 MG AMPUL.NEB 3 ML INHALATION ×4 (02:30→20:25)
[2024-03-14 05:42] LABS: Hematocrit 27.6 % (42.0-52.0); Hemoglobin 9.1 g/dL (14.0-18.0); Mean Corpuscular Hemoglobin 28.3 pg (26-34); Mean Platelet Volume 9.1 fl (7.4-10.4); Platelet Count Result 184 k/mm3 (150-375); Red Blood Count 3.21 M/mm3 (4.6-6.20); Red Cell Distribution Width 17.8 % (11.5-14.5); White Blood Count 4.8 K/mm3 (4.5-10.0)
[2024-03-14 05:49] LABS: Anion Gap 1 mmol/L (4-12); Blood Urea Nitrogen 14 mg/dL (9-20); Calcium 8.1 mg/dL (8.4-10.2); Carbon Dioxide 34 mmol/L (22-30); Chloride 87 mmol/L (98-107); Estimated CRCL calculation 82 ml/min; Estimated Glomerular Filt Rate > 60; Glucose 81 mg/dL (65-110); Sodium 122 mmol/L (137-145)
[2024-03-14] MEDS: LEVOTHYROXINE SODIUM 150 MCG TABLET PO (06:14)
--- NOTE | 2024-03-14 07:14 | P.PNIM_ITS ---
Progress Note: A&P Assessment and Plan (1) Acute hypoxic respiratory failure: Code(s): J96.01 - Acute respiratory failure with hypoxia Status: Acute Assessment and Plan: On admission was requiring supplemental oxygen by nasal cannula ABG: pH 7.440, pCO2 44.2, pO2 84.2, HCO3 29.3 Resolved. Back on baseline room air. (2) Altered mental status: Code(s): R41.82 - Altered mental status, unspecified Status: Acute Assessment and Plan: Head CT: No acute intracranial hemorrhage or suspicious mass effect. Likely of endocrine metabolic etiology Speech eval is completed- recommendations reviewed and ordered for diet 03/14: improving (3) Hyponatremia: Code(s): E87.1 - Hypo-osmolality and hyponatremia Status: Acute Assessment and Plan: Chronic, baseline appears around 129-134 (at best) per nephrology - multiple risk factors * pneumonia * underlying lung disease (COPD) * pleural effusion * SSRI use (lexapro) * PPI use (nexium) * hypothyroidism (restarted treatment on this admission) - Received NS 2 L in emergency room with up trending of the sodium -Continue to monitor with serial BMP -Nephrology consulted- appreciate recommendations 03/14 sodium dropped to 122, recheck was 124 per Nephrology patient is to stay inpatient until his sodium is closer to 130. He remains on Lasix 20 mg b.i.d. and salt tab 2 g b.i.d. (4) Pneumonia: Code(s): J18.9 - Pneumonia, unspecified organism Status: Acute Assessment and Plan: CXR 03/07: Early left-sided infiltrate with a large left-sided pleural effusion. CXR 03/11: Minimal pleural effusions with possible asymmetric left-sided pulmonary edema versus pneumonia left lung. Underlying COPD. - Risk Factors: none - antibiotics: vancomycin cefepime and Zithromax but downgraded to cefepime and azithromycin, to be completed today 03/14 - Viral PCR: negative for Flu/COVID/RSV - MRSA negative - Blood cultures: Final - Negative - no supplemental O2 requirement - supportive treatment tyl and ibu prn nebs prn tesslon perles prn - trend labs - Monitor vital signs, I&Os, neuro status and patient is a fall risk - Follow WBC, serum electrolytes, temperature curves and cultures (5) Pleural effusion on left: Code(s): J90 - Pleural effusion, not elsewhere classified Status: Acute Assessment and Plan: Likely to be a parapneumonic effusion as patient with infiltrate Start on vancomycin Zithromax and cefepime due to recent admission as well patient living in rehabilitation center 03/08- mrsa swab neg- stop vanc- downgrade to PO zithromax-- continue cefepime iv antibiotics - CPT ordered - Continue to encourage cought/deep breathing - pt/ot- out of bed-ambulate with assistance - pt is high fall risk (6) Normocytic anemia: Code(s): D64.9 - Anemia, unspecified Status: Acute Assessment and Plan: Chronic, continue to monitor hgb dropped, repeated- 7. transfuse 1 unit of RPBC 03/13 iron studies done- will start on iron supplements -hg rechecked- stable this am (7) Hypothyroidism: Code(s): E03.9 - Hypothyroidism, unspecified Status: Acute Assessment and Plan: h/o thyroid ca, s/p chemo,radiation - levothyroxine 175 mcg on admission - tsh 60- repeated 58 with low t4 - will increase dose to 187.5 mcg- will need an outpt f/u with repeated TSH in 6-8 months (8) GERD (gastroesophageal reflux disease): Code(s): K21.9 - Gastro-esophageal reflux disease without esophagitis Status: Acute Assessment and Plan: PPI (9) COPD (chronic obstructive pulmonary disease): Code(s): J44.9 - Chronic obstructive pulmonary disease, unspecified Status: Acute Assessment and Plan: continue home meds not actively wheezing - encouraged IS if able to follow instructions out of bed for meals work with pt/ot (10) Protein calorie malnutrition: Code(s): E46 - Unspecified protein-calorie malnutrition Status: Acute Assessment and Plan: liberalize diet (11) Tobacco dependence: Code(s): F17.200 - Nicotine dependence, unspecified, uncomplicated Status: Acute Assessment and Plan: nicotine patch as needed Time Spent With Patient Time with patient: 25 - 35 minutes Subjective Date/time seen: 03/14/24 07:14 Interval history: Patient is pleasant sitting up in his chair comfortably. He continues to endorse a productive cough but notes that his shortness of breath is greatly improved. He has no other complaints denying chest pain, palpitations, nausea / vomiting, and abdominal pain. Patient had a drop in his sodium level again today and per Nephrology he is to remain inpatient until levels are closer to 130. Review of Systems Review of Systems: All systems reviewed & are unremarkable except as noted in HPI and below Exam Narrative: AF HR 62 R 20 SpO2 93 RA BP 111/62 General: frail male in no acute respiratory distress who is chronically ill appearing, sitting up in his chair HEENT: Normocephalic. Atraumatic. Extraocular movement intact. Sclera clear and anicteric. No facial asymmetry. Chest: Lungs are diminished to auscultation bilaterally worse on the left lower base. No wheezes or crackles. CV: Heart was regular rate and rhythm. S1/S2. No murmurs, gallops, or rubs. Abd: Abdomen was soft. Nontender. Nondistended. Positive bowel sounds. No organomegaly or masses. Ext: No clubbing, cyanosis, or edema. 2+ DP pulses bilaterally. Neuro: Patient is alert. Cranial nerves 2-12 are intact. Speech is clear. Objective Data Vital Signs Vital Signs: Vital Signs - 24 hr 03/13/24 07:33 03/13/24 07:33 03/13/24 07:45 Temperature Pulse Rate 56 L 54 L Respiratory Rate 18 18 Blood Pressure Pulse Oximetry 93 Oxygen Delivery Room Air Fraction of Inspired Oxygen 03/13/24 07:53 03/13/24 08:14 03/13/24 08:01 Temperature Pulse Rate 58 L Respiratory Rate 18 18 Blood Pressure Pulse Oximetry 93 93 Oxygen Delivery Room Air Room Air Fraction of Inspired Oxygen 03/13/24 12:04 03/13/24 14:02 03/13/24 14:30 Temperature 97.5 F L Pulse Rate 61 56 L 56 L Respiratory Rate 16 20 Blood Pressure 124/70 Pulse Oximetry 100 Oxygen Delivery Fraction of Inspired Oxygen 03/13/24 14:42 03/13/24 16:01 03/13/24 16:00 Temperature 97.2 F L Pulse Rate 53 L 58 L 58 L Respiratory Rate 20 18 Blood Pressure 128/71 Pulse Oximetry 96 Oxygen Delivery Fraction of Inspired Oxygen 03/13/24 19:45 03/13/24 20:08 03/13/24 20:00 Temperature 97.6 F Pulse Rate 58 L 60 59 L Respiratory Rate 18 16 Blood Pressure 124/67 Pulse Oximetry 96 97 Oxygen Delivery Room Air Fraction of Inspired Oxygen 28 03/13/24 21:20 03/13/24 21:30 03/14/24 00:00 Temperature Pulse Rate 58 L 59 L 60 Respiratory Rate 20 20 Blood Pressure Pulse Oximetry Oxygen Delivery Fraction of Inspired Oxygen 03/14/24 02:30 03/14/24 02:40 03/14/24 04:00 Temperature Pulse Rate 61 58 L 57 L Respiratory Rate 20 20 Blood Pressure Pulse Oximetry Oxygen Delivery Fraction of Inspired Oxygen 03/14/24 05:38 Temperature 98.4 F Pulse Rate 60 Respiratory Rate 14 Blood Pressure 130/57 L Pulse Oximetry 95 Oxygen Delivery Fraction of Inspired Oxygen Intake/Output Intake/Output: Intake & Output 03/11/24 03/12/24 03/13/24 03/14/24 23:59 23:59 23:59 23:59 Intake Total 1965 2680 1180 200 Output Total 1200 1902 3500 600 Balance 765 [phone] Meds/Results Medications: Active Medications Generic Name Dose Route Start Last Admin Trade Name Freq PRN Reason Stop Dose Admin Acetaminophen 650 mg 03/08/24 11:58 Acetaminophen 325 Mg Tablet BY MOUTH Q6H PRN Pain Al Hydrox/Mg Hydrox/Simethicone 30 ml 03/07/24 21:44 Mag Hydrox/Al Hydrox/Simeth 30 Ml Udc PO Q6H PRN Indigestion Albuterol 2.5 mg 03/08/24 16:08 03/08/24 20:55 Albuterol Sulfate Neb 2.5 Mg/3 Ml Inh INHALATION 2.5 mg Q6HRT PRN Administration Shortness Of Breath Albuterol/Ipratropium 3 ml 03/08/24 20:30 03/14/24 02:30 Ipratropium 0.5 Mg/Albuterol Sulfate 2.5 Mg Ampul.Neb 3 Ml INHALATION 3 ml Q6HRT CARYL Administration Alprazolam 1 mg 03/08/24 15:44 03/09/24 20:28 Alprazolam (*Crx) 0.5 Mg Tablet PO 1 mg TID PRN Administration anxiety Baclofen 5 mg 03/08/24 15:44 Baclofen 5 Mg Tablet PO TID PRN muscle spasms Benzonatate 100 mg 03/08/24 11:57 Benzonatate 100 Mg Capsule PO TID PRN Cough Ferrous Sulfate 142 mg 03/12/24 08:00 03/13/24 16:38 Ferrous Sulfate Dried 142 Mg Tabcr PO 142 mg BIDWM CARYL Administration Fluticasone/Umeclidinium/Vilanterol 1 puff 03/09/24 08:00 03/13/24 07:42 Fluticasone/Umeclidin/Vilanter 100-62.5-25 Mcg Ellipta INHALATION 1 puff DAILYRT CARYL Administration Furosemide 20 mg 03/13/24 09:00 03/13/24 16:38 Furosemide 20 Mg Tablet PO 20 mg BID CARYL Administration Guaifenesin 600 mg 03/08/24 21:00 03/13/24 20:22 Guaifenesin 12 Hr 600 Mg Tabcr PO 600 mg Q12HR CARYL Administration Cefepime HCl 2 gm in 50 mls @ 100 mls/hr 03/08/24 10:00 03/13/24 20:50 Maxipime 2 Gm/Ns 50 Ml IVPB 03/14/24 09:29 Infused Q12HR CARYL Infusion Levothyroxine Sodium 150 mcg 03/09/24 06:30 03/14/24 06:14 Levothyroxine Sodium 150 Mcg Tablet PO 150 mcg DAILY@0630 CARYL Administration Ondansetron HCl 4 mg 03/07/24 20:36 Ondansetron Inj 4 Mg/2 Ml Vial IV PUSH Q4H PRN Nausea Polyethylene Glycol 17 gm 03/07/24 21:44 03/12/24 18:01 Polyethylene Glycol 3350 17 Gm Powd.Pack PO 17 gm QAM PRN Administration Constipation Ranolazine 500 mg 03/08/24 21:00 03/13/24 20:23 Ranolazine 500 Mg Tab.Er.12h PO 500 mg Q12HR CARYL Administration Simvastatin 20 mg 03/09/24 09:00 03/13/24 09:27 Simvastatin 20 Mg Tablet PO 20 mg DAILY CARYL Administration Sodium Chloride 2 gm 03/13/24 09:00 03/13/24 16:40 Sodium Chloride 1 Gm Tablet PO 2 gm BID CARYL Administration Radiology Results: ITS Impressions Head CT 03/07/24 19:52 Impression: No acute intracranial hemorrhage or suspicious mass effect. Modified Barium Swallow 03/10/24 11:34 IMPRESSION: 1. Aspiration. 2. Please refer to the speech therapy report for recommendations. Chest X-Ray 03/11/24 07:39 Impression: Minimal pleural effusions with possible asymmetric left-sided pulmonary edema versus pneumonia left lung. Underlying COPD. Labs Labs: Laboratory Results - last 24 hr 03/09/24 03/14/24 04:22 05:24 WBC 4.8 RBC 3.21 L Hgb 9.1 L Hct 27.6 L MCV 86.0 MCH 28.3 MCHC 33.0 RDW 17.8 H Plt Count 184 MPV 9.1 Sodium 122 L Potassium 4.0 Chloride 87 L Carbon Dioxide 34 H Anion Gap 1 L BUN 14 Creatinine 0.60 L Estim Creat Clear Calc 82 Estimated GFR > 60 Glucose 81 Serum Osmolality 254 L Calcium 8.1 L Quality VTE Prophylaxis VTE prophylaxis: mechanical ordered
[2024-03-14] MEDS: FLUTICASONE/UMECLIDIN/VILANTER 100-62.5-25 MCG ELLIPTA 1 PUFF INHALATION (07:52)
[2024-03-14] MEDS: CEFEPIME 2 GM/NS 50 ML 2 GM/50 ML BAG IVPB (08:36)
[2024-03-14] MEDS: guaiFENesin 12 HR 600 MG TABCR PO ×2 (08:41→21:00)
[2024-03-14] MEDS: SODIUM CHLORIDE 1 GM TABLET 2 GM PO ×2 (08:41→16:29)
[2024-03-14] MEDS: FUROSEMIDE 20 MG TABLET PO ×2 (08:41→16:29)
[2024-03-14] MEDS: RANOLAZINE 500 MG TAB.ER.12H PO ×2 (08:42→21:00)
[2024-03-14] MEDS: FERROUS SULFATE DRIED 142 MG TABCR PO ×2 (08:42→16:29)
[2024-03-14] MEDS: SIMVASTATIN 20 MG TABLET PO (08:42)
[2024-03-14 10:58] LABS: Sodium 124 mmol/L (137-145)
--- NOTE | 2024-03-14 14:01 | P.PNNP_ITS ---
Progress Note: A&P Assessment and Plan (1) Hyponatremia: Code(s): E87.1 - Hypo-osmolality and hyponatremia Status: Chronic Assessment and Plan: * known chronic issue - a bit worse on admission * baseline sodium seems to run around 129 - 134 (at best) * multiple risk factors for hyponatremia: * pneumonia * underlying lung disease (COPD) * pleural effusion * SSRI use (lexapro) * PPI use (nexium) * hypothyroidism (restarted treatment on this admission) * evaluation noted currently and on previous hospitalization: * CXR results shows early left-sided infiltrate with a large left-sided pleural effusion * CT of head shows no intracranial hemorrhage or suspicious mass effect * urine electrolytes prerenal * TSH quite elevated - levothyroxine adjusted * cortisol okay * SPEP/UPEP in the past negative; repeat testing pending * currently on furosemide plus salt tablets * increased lasix and salt tabs (2) Pneumonia: Code(s): J18.9 - Pneumonia, unspecified organism Status: Acute Assessment and Plan: * as suggested by admission imaging * on cefepime and azithromycin * blood cultures negative to date * monitor respiratory status (3) Pleural effusion on left: Code(s): J90 - Pleural effusion, not elsewhere classified Status: Acute Assessment and Plan: * as noted by admission imaging * on antibiotics * diuretic therapy may help (4) Altered mental status: Code(s): R41.82 - Altered mental status, unspecified Status: Acute Assessment and Plan: * back to baseline (5) COPD (chronic obstructive pulmonary disease): Code(s): J44.9 - Chronic obstructive pulmonary disease, unspecified Status: Acute Assessment and Plan: * no evidence of exacerbation * continue home medications/inhalers Will continue to follow. Subjective Date/time seen: 03/14/24 14:01 Interval history: Follow-up for acute on chronic hyponatremia. Chart reviewed since last seen -- sodium had been improving but then dropped down again to the 122 range; remains asymptomatic with regard to this electrolyts abnormality; no apparent distress noted at the time of my visit. Exam Narrative: General: WD thin male in NAD Heart: normal S1 and S2; no rub Lungs: coarse breath sounds; decreased on the left Abdomen: soft, nontender, nondistended, positive bowel sounds Extremities: trace edema, no cyanosis Skin: warn and dry Objective Data Vital Signs Vital Signs: Vital Signs 03/13/24 04:00 03/13/24 06:14 03/13/24 07:33 Temperature 97.8 F Pulse Rate 59 L 73 56 L Respiratory Rate 18 18 Blood Pressure 110/58 L Pulse Oximetry 93 Oxygen Delivery Fraction of Inspired Oxygen 03/13/24 07:33 03/13/24 07:45 03/13/24 07:53 Temperature Pulse Rate 54 L Respiratory Rate 18 18 Blood Pressure Pulse Oximetry 93 93 Oxygen Delivery Room Air Room Air Fraction of Inspired Oxygen 03/13/24 08:14 03/13/24 08:01 03/13/24 12:04 Temperature Pulse Rate 58 L 61 Respiratory Rate 18 Blood Pressure Pulse Oximetry 93 Oxygen Delivery Room Air Fraction of Inspired Oxygen 03/13/24 14:02 03/13/24 14:30 03/13/24 14:42 Temperature 97.5 F L Pulse Rate 56 L 56 L 53 L Respiratory Rate 16 20 20 Blood Pressure 124/70 Pulse Oximetry 100 Oxygen Delivery Fraction of Inspired Oxygen 03/13/24 16:01 03/13/24 16:00 03/13/24 19:45 Temperature 97.2 F L Pulse Rate 58 L 58 L 58 L Respiratory Rate 18 18 Blood Pressure 128/71 Pulse Oximetry 96 96 Oxygen Delivery Room Air Fraction of Inspired Oxygen 28 03/13/24 20:08 03/13/24 20:00 03/13/24 21:20 Temperature 97.6 F Pulse Rate 60 59 L 58 L Respiratory Rate 16 20 Blood Pressure 124/67 Pulse Oximetry 97 Oxygen Delivery Fraction of Inspired Oxygen 03/13/24 21:30 03/14/24 00:00 03/14/24 02:30 Temperature Pulse Rate 59 L 60 61 Respiratory Rate 20 20 Blood Pressure Pulse Oximetry Oxygen Delivery Fraction of Inspired Oxygen 03/14/24 02:40 03/14/24 04:00 03/14/24 05:38 Temperature 98.4 F Pulse Rate 58 L 57 L 60 Respiratory Rate 20 14 Blood Pressure 130/57 L Pulse Oximetry 95 Oxygen Delivery Fraction of Inspired Oxygen 03/14/24 07:53 03/14/24 07:53 03/14/24 08:00 Temperature 98.0 F Pulse Rate 60 63 Respiratory Rate 20 16 Blood Pressure 111/62 Pulse Oximetry 92 63 L Oxygen Delivery Room Air Fraction of Inspired Oxygen 03/14/24 08:42 03/14/24 08:04 03/14/24 12:01 Temperature Pulse Rate 58 L 65 Respiratory Rate 16 Blood Pressure Pulse Oximetry 93 Oxygen Delivery Room Air Fraction of Inspired Oxygen 03/14/24 13:33 03/14/24 13:46 Temperature Pulse Rate 60 62 Respiratory Rate 20 20 Blood Pressure Pulse Oximetry Oxygen Delivery Fraction of Inspired Oxygen Intake/Output Intake/Output: Intake & Output 03/12/24 03/13/24 03/14/24 03/15/24 23:59 23:59 23:59 23:59 Intake Total 2680 1180 1160 1160 Output Total 1902 3500 1700 450 Balance 281 [phone] Meds/Results Medications: Active Medications Generic Name Dose Route Start Last Admin Trade Name Freq PRN Reason Stop Dose Admin Acetaminophen 650 mg 03/08/24 11:58 Acetaminophen 325 Mg Tablet BY MOUTH Q6H PRN Pain Al Hydrox/Mg Hydrox/Simethicone 30 ml 03/07/24 21:44 Mag Hydrox/Al Hydrox/Simeth 30 Ml Udc PO Q6H PRN Indigestion Albuterol 2.5 mg 03/08/24 16:08 03/08/24 20:55 Albuterol Sulfate Neb 2.5 Mg/3 Ml Inh INHALATION 2.5 mg Q6HRT PRN Administration Shortness Of Breath Albuterol/Ipratropium 3 ml 03/08/24 20:30 03/15/24 13:51 Ipratropium 0.5 Mg/Albuterol Sulfate 2.5 Mg Ampul.Neb 3 Ml INHALATION 3 ml Q6HRT CARYL Administration Alprazolam 1 mg 03/08/24 15:44 03/09/24 20:28 Alprazolam (*Crx) 0.5 Mg Tablet PO 1 mg TID PRN Administration anxiety Baclofen 5 mg 03/08/24 15:44 Baclofen 5 Mg Tablet PO TID PRN muscle spasms Benzonatate 100 mg 03/08/24 11:57 Benzonatate 100 Mg Capsule PO TID PRN Cough Ferrous Sulfate 142 mg 03/12/24 08:00 03/15/24 16:38 Ferrous Sulfate Dried 142 Mg Tabcr PO 142 mg BIDWM CARYL Administration Fluticasone/Umeclidinium/Vilanterol 1 puff 03/09/24 08:00 03/15/24 07:40 Fluticasone/Umeclidin/Vilanter 100-62.5-25 Mcg Ellipta INHALATION 1 puff DAILYRT CARYL Administration Furosemide 20 mg 03/13/24 09:00 03/15/24 16:38 Furosemide 20 Mg Tablet PO 20 mg BID CARYL Administration Guaifenesin 600 mg 03/08/24 21:00 03/15/24 08:43 Guaifenesin 12 Hr 600 Mg Tabcr PO 600 mg Q12HR CARYL Administration Levothyroxine Sodium 37.5 mcg 03/15/24 06:30 03/15/24 06:38 Levothyroxine Sodium 12.5 Mcg Tablet PO 37.5 mcg DAILY@0630 CARYL Administration Levothyroxine Sodium 150 mcg 03/15/24 06:30 03/15/24 06:37 Levothyroxine Sodium 150 Mcg Tablet PO 150 mcg DAILY@0630 CARYL Administration Ondansetron HCl 4 mg 03/07/24 20:36 Ondansetron Inj 4 Mg/2 Ml Vial IV PUSH Q4H PRN Nausea Polyethylene Glycol 17 gm 03/07/24 21:44 03/12/24 18:01 Polyethylene Glycol 3350 17 Gm Powd.Pack PO 17 gm QAM PRN Administration Constipation Ranolazine 500 mg 03/08/24 21:00 03/15/24 08:42 Ranolazine 500 Mg Tab.Er.12h PO 500 mg Q12HR CARYL Administration Simvastatin 20 mg 03/09/24 09:00 03/15/24 08:43 Simvastatin 20 Mg Tablet PO 20 mg DAILY CARYL Administration Sodium Chloride 2 gm 03/13/24 09:00 03/15/24 16:38 Sodium Chloride 1 Gm Tablet PO 2 gm BID CRAYL Administration Radiology Results: ITS Impressions Head CT 03/07/24 19:52 Impression: No acute intracranial hemorrhage or suspicious mass effect. Modified Barium Swallow 03/10/24 11:34 IMPRESSION: 1. Aspiration. 2. Please refer to the speech therapy report for recommendations. Chest X-Ray 03/11/24 07:39 Impression: Minimal pleural effusions with possible asymmetric left-sided pulmonary edema versus pneumonia left lung. Underlying COPD. Labs Labs: Laboratory Results - last 24 hr 03/14/24 08:15 WBC 5.7 Hgb 9.9 L Hct 29.8 L Plt Count 194 Sodium 122 L Potassium 4.2 Chloride 87 L Carbon Dioxide 32 H Anion Gap 3 L BUN 13 Creatinine 0.50 L Estim Creat Clear Calc 98 Estimated GFR > 60 Glucose 82 Calcium 8.3 L
[2024-03-14 16:38] LABS: Alpha 1 Globulin 0.4 g/dL (0.2-0.3); Alpha 2 Globulin 0.7 g/dL (0.5-0.9); Beta 1 Globulin 0.4 g/dL (0.4-0.6); Gamma Globulin 0.8 g/dL (0.8-1.7)
[2024-03-15] VITALS (17 sets, daily range): BP systolic 98–138; BP diastolic 55–87; PULSE 59–100; RESP 16–20; TEMP 35.9–36.9; O2SAT 93–96
[2024-03-15] MEDS: LEVOTHYROXINE SODIUM 150 MCG TABLET PO (06:37)
[2024-03-15] MEDS: LEVOTHYROXINE SODIUM 12.5 MCG TABLET 37.5 MCG PO (06:38)
[2024-03-15] MEDS: FLUTICASONE/UMECLIDIN/VILANTER 100-62.5-25 MCG ELLIPTA 1 PUFF INHALATION (07:40)
[2024-03-15] MEDS: IPRATROPIUM 0.5 MG/ALBUTEROL SULFATE 2.5 MG AMPUL.NEB 3 ML INHALATION ×3 (07:40→20:37)
[2024-03-15 08:33] LABS: Anion Gap 3 mmol/L (4-12); Blood Urea Nitrogen 13 mg/dL (9-20); Calcium 8.3 mg/dL (8.4-10.2); Carbon Dioxide 32 mmol/L (22-30); Chloride 87 mmol/L (98-107); Estimated CRCL calculation 98 ml/min; Estimated Glomerular Filt Rate > 60; Glucose 82 mg/dL (65-110); Potassium 4.2 mmol/L (3.4-5.0); Sodium 122 mmol/L (137-145)
[2024-03-15] MEDS: FUROSEMIDE 20 MG TABLET PO ×2 (08:42→16:38)
[2024-03-15] MEDS: RANOLAZINE 500 MG TAB.ER.12H PO ×2 (08:42→20:29)
[2024-03-15] MEDS: FERROUS SULFATE DRIED 142 MG TABCR PO ×2 (08:43→16:38)
[2024-03-15] MEDS: guaiFENesin 12 HR 600 MG TABCR PO ×2 (08:43→20:29)
[2024-03-15] MEDS: SODIUM CHLORIDE 1 GM TABLET 2 GM PO ×2 (08:43→16:38)
[2024-03-15] MEDS: SIMVASTATIN 20 MG TABLET PO (08:43)
--- NOTE | 2024-03-15 08:43 | P.PNIM_ITS ---
Progress Note: A&P Assessment and Plan (1) Acute hypoxic respiratory failure: Code(s): J96.01 - Acute respiratory failure with hypoxia Status: Acute Assessment and Plan: On admission was requiring supplemental oxygen by nasal cannula ABG: pH 7.440, pCO2 44.2, pO2 84.2, HCO3 29.3 Resolved. Back on baseline room air. (2) Altered mental status: Code(s): R41.82 - Altered mental status, unspecified Status: Acute Assessment and Plan: Head CT: No acute intracranial hemorrhage or suspicious mass effect. Likely of endocrine metabolic etiology Speech eval is completed- recommendations reviewed and ordered for diet 03/15: improving with AOx4 (3) Hyponatremia: Code(s): E87.1 - Hypo-osmolality and hyponatremia Status: Acute Assessment and Plan: Chronic, baseline appears around 129-134 (at best) per nephrology - multiple risk factors * pneumonia * underlying lung disease (COPD) * pleural effusion * SSRI use (lexapro) * PPI use (nexium) * hypothyroidism (restarted treatment on this admission) - Received NS 2 L in emergency room with up trending of the sodium -Continue to monitor with serial BMP -Nephrology consulted- appreciate recommendations 03/14 sodium dropped to 122, recheck was 124 per Nephrology patient is to stay inpatient until his sodium is closer to 130. He remains on Lasix 20 mg b.i.d. and salt tab 2 g b.i.d. 03/15 sodium remains low at 122 a.m. on a.m. labs discussed patient again with Nephrology and will start him on a fluid restriction of 1500 mL a day (4) Pneumonia: Code(s): J18.9 - Pneumonia, unspecified organism Status: Acute Assessment and Plan: CXR 03/07: Early left-sided infiltrate with a large left-sided pleural effusion. CXR 03/11: Minimal pleural effusions with possible asymmetric left-sided pulmonary edema versus pneumonia left lung. Underlying COPD. - Risk Factors: none - antibiotics: vancomycin cefepime and Zithromax but downgraded to cefepime and azithromycin, to be completed today 03/14 - Viral PCR: negative for Flu/COVID/RSV - MRSA negative - Blood cultures: Final - Negative - no supplemental O2 requirement - supportive treatment tyl and ibu prn nebs prn tesslon perles prn - trend labs - Monitor vital signs, I&Os, neuro status and patient is a fall risk - Follow WBC, serum electrolytes, temperature curves and cultures (5) Pleural effusion on left: Code(s): J90 - Pleural effusion, not elsewhere classified Status: Acute Assessment and Plan: Likely to be a parapneumonic effusion as patient with infiltrate Start on vancomycin Zithromax and cefepime due to recent admission as well patient living in rehabilitation center 03/08- mrsa swab neg- stop vanc- downgrade to PO zithromax-- continue cefepime iv antibiotics - CPT ordered - Continue to encourage cought/deep breathing - pt/ot- out of bed-ambulate with assistance - pt is high fall risk (6) Normocytic anemia: Code(s): D64.9 - Anemia, unspecified Status: Acute Assessment and Plan: Chronic, continue to monitor hgb dropped, repeated- 7. transfuse 1 unit of RPBC 03/13 iron studies done- will start on iron supplements -hg rechecked- stable this am (7) Hypothyroidism: Code(s): E03.9 - Hypothyroidism, unspecified Status: Acute Assessment and Plan: h/o thyroid ca, s/p chemo,radiation - levothyroxine 175 mcg on admission - tsh 60- repeated 58 with low t4 - will increase dose to 187.5 mcg- will need an outpt f/u with repeated TSH in 6-8 months (8) GERD (gastroesophageal reflux disease): Code(s): K21.9 - Gastro-esophageal reflux disease without esophagitis Status: Acute Assessment and Plan: PPI (9) COPD (chronic obstructive pulmonary disease): Code(s): J44.9 - Chronic obstructive pulmonary disease, unspecified Status: Acute Assessment and Plan: continue home meds not actively wheezing - encouraged IS if able to follow instructions out of bed for meals work with pt/ot (10) Protein calorie malnutrition: Code(s): E46 - Unspecified protein-calorie malnutrition Status: Acute Assessment and Plan: liberalize diet (11) Tobacco dependence: Code(s): F17.200 - Nicotine dependence, unspecified, uncomplicated Status: Acute Assessment and Plan: nicotine patch as needed Time Spent With Patient Time with patient: 25 - 35 minutes Subjective Date/time seen: 03/15/24 08:43 Interval history: Patient's pleasant lying comfortably in bed. he remains aox3. He has no complaints at the time denying chest pain, shortness a breath, palpitation, nausea/ vomiting and abdominal pain. Discussed patient with Nephrology as the patient continues to have hyponatremia of 122 on a.m. labs. Will start patient on fluid restriction of 1500 ml and continue to monitor. Review of Systems Review of Systems: All systems reviewed & are unremarkable except as noted in HPI and below Exam Narrative: AF HR 62 RR 16 SPO2 95 BP 123/70 General: frail male in no acute respiratory distress who is chronically ill appearing, sitting up in his chair HEENT: Normocephalic. Atraumatic. Extraocular movement intact. Sclera clear and anicteric. No facial asymmetry. Chest: Lungs are diminished to auscultation bilaterally. No wheezes or crackles. CV: Heart was regular rate and rhythm. S1/S2. No murmurs, gallops, or rubs. Abd: Abdomen was soft. Nontender. Nondistended. Positive bowel sounds. No organomegaly or masses. Ext: No clubbing, cyanosis, or edema. 2+ DP pulses bilaterally. Neuro: Patient is alert. Cranial nerves 2-12 are intact. Speech is clear. Objective Data Vital Signs Vital Signs: Vital Signs - 24 hr 03/14/24 12:01 03/14/24 13:33 03/14/24 13:46 Temperature Pulse Rate 65 60 62 Respiratory Rate 20 20 Blood Pressure Pulse Oximetry Oxygen Delivery 03/14/24 15:29 03/14/24 16:04 03/14/24 20:25 Temperature 98.1 F Pulse Rate 104 H 58 L 64 Respiratory Rate 16 20 Blood Pressure 100/60 Pulse Oximetry 93 Oxygen Delivery 03/14/24 20:38 03/14/24 20:00 03/14/24 22:18 Temperature 97.7 F Pulse Rate 65 58 L 60 Respiratory Rate 20 14 Blood Pressure 110/70 Pulse Oximetry 95 Oxygen Delivery 03/15/24 00:00 03/15/24 04:00 03/15/24 05:59 Temperature 98.0 F Pulse Rate 61 61 62 Respiratory Rate 18 Blood Pressure 138/64 Pulse Oximetry 94 Oxygen Delivery 03/15/24 07:44 03/15/24 07:44 03/15/24 07:52 Temperature Pulse Rate 67 64 Respiratory Rate 20 20 Blood Pressure Pulse Oximetry 96 Oxygen Delivery Room Air Intake/Output Intake/Output: Intake & Output 03/12/24 03/13/24 03/14/24 03/15/24 23:59 23:59 23:59 23:59 Intake Total 2680 1180 1160 200 Output Total 1902 3500 1700 Balance 623 -6564 -973 200 Meds/Results Medications: Active Medications Generic Name Dose Route Start Last Admin Trade Name Freq PRN Reason Stop Dose Admin Acetaminophen 650 mg 03/08/24 11:58 Acetaminophen 325 Mg Tablet BY MOUTH Q6H PRN Pain Al Hydrox/Mg Hydrox/Simethicone 30 ml 03/07/24 21:44 Mag Hydrox/Al Hydrox/Simeth 30 Ml Udc PO Q6H PRN Indigestion Albuterol 2.5 mg 03/08/24 16:08 03/08/24 20:55 Albuterol Sulfate Neb 2.5 Mg/3 Ml Inh INHALATION 2.5 mg Q6HRT PRN Administration Shortness Of Breath Albuterol/Ipratropium 3 ml 03/08/24 20:30 03/15/24 07:40 Ipratropium 0.5 Mg/Albuterol Sulfate 2.5 Mg Ampul.Neb 3 Ml INHALATION 3 ml Q6HRT CARYL Administration Alprazolam 1 mg 03/08/24 15:44 03/09/24 20:28 Alprazolam (*Crx) 0.5 Mg Tablet PO 1 mg TID PRN Administration anxiety Baclofen 5 mg 03/08/24 15:44 Baclofen 5 Mg Tablet PO TID PRN muscle spasms Benzonatate 100 mg 03/08/24 11:57 Benzonatate 100 Mg Capsule PO TID PRN Cough Ferrous Sulfate 142 mg 03/12/24 08:00 03/15/24 08:43 Ferrous Sulfate Dried 142 Mg Tabcr PO 142 mg BIDWM CARYL Administration Fluticasone/Umeclidinium/Vilanterol 1 puff 03/09/24 08:00 03/15/24 07:40 Fluticasone/Umeclidin/Vilanter 100-62.5-25 Mcg Ellipta INHALATION 1 puff DAILYRT CARYL Administration Furosemide 20 mg 03/13/24 09:00 03/15/24 08:42 Furosemide 20 Mg Tablet PO 20 mg BID CARYL Administration Guaifenesin 600 mg 03/08/24 21:00 03/15/24 08:43 Guaifenesin 12 Hr 600 Mg Tabcr PO 600 mg Q12HR CARYL Administration Levothyroxine Sodium 37.5 mcg 03/15/24 06:30 03/15/24 06:38 Levothyroxine Sodium 12.5 Mcg Tablet PO 37.5 mcg DAILY@0630 CARYL Administration Levothyroxine Sodium 150 mcg 03/15/24 06:30 03/15/24 06:37 Levothyroxine Sodium 150 Mcg Tablet PO 150 mcg DAILY@0630 CARYL Administration Ondansetron HCl 4 mg 03/07/24 20:36 Ondansetron Inj 4 Mg/2 Ml Vial IV PUSH Q4H PRN Nausea Polyethylene Glycol 17 gm 03/07/24 21:44 03/12/24 18:01 Polyethylene Glycol 3350 17 Gm Powd.Pack PO 17 gm QAM PRN Administration Constipation Ranolazine 500 mg 03/08/24 21:00 03/15/24 08:42 Ranolazine 500 Mg Tab.Er.12h PO 500 mg Q12HR CARYL Administration Simvastatin 20 mg 03/09/24 09:00 03/15/24 08:43 Simvastatin 20 Mg Tablet PO 20 mg DAILY CARYL Administration Sodium Chloride 2 gm 03/13/24 09:00 03/15/24 08:43 Sodium Chloride 1 Gm Tablet PO 2 gm BID CARYL Administration Radiology Results: ITS Impressions Head CT 03/07/24 19:52 Impression: No acute intracranial hemorrhage or suspicious mass effect. Modified Barium Swallow 03/10/24 11:34 IMPRESSION: 1. Aspiration. 2. Please refer to the speech therapy report for recommendations. Chest X-Ray 03/11/24 07:39 Impression: Minimal pleural effusions with possible asymmetric left-sided pulmonary edema versus pneumonia left lung. Underlying COPD. Labs Labs: Laboratory Results - last 24 hr 03/09/24 03/14/24 03/15/24 04:22 10:43 08:15 Sodium 124 L 122 L Potassium 4.2 Chloride 87 L Carbon Dioxide 32 H Anion Gap 3 L BUN 13 Creatinine 0.50 L Estim Creat Clear Calc 98 Estimated GFR > 60 Glucose 82 Calcium 8.3 L Albumin 3.0 L Kfkke-0-Gdzisnavn 0.4 H Rguga-9-Guvoeygzv 0.7 Vuno-7-Mzqnlxgu 0.4 Fcnu-2-Ksnzegwb 0.3 Gamma Globulins 0.8 PEP Interpretation See note Quality VTE Prophylaxis VTE prophylaxis: mechanical ordered
[2024-03-15 09:34] LABS: Hematocrit 29.8 % (42.0-52.0); Hemoglobin 9.9 g/dL (14.0-18.0); Mean Corpuscular HGB Conc 33.2 g/dl (32-36); Mean Corpuscular Hemoglobin 28.9 pg (26-34); Mean Corpuscular Volume 86.9 fl (80-100); Mean Platelet Volume 8.7 fl (7.4-10.4); Platelet Count Result 194 k/mm3 (150-375); Red Blood Count 3.43 M/mm3 (4.6-6.20); Red Cell Distribution Width 18.4 % (11.5-14.5); White Blood Count 5.7 K/mm3 (4.5-10.0)
--- NOTE | 2024-03-15 12:20 | P.PNNP_ITS ---
Progress Note: A&P Assessment and Plan (1) Hyponatremia: Code(s): E87.1 - Hypo-osmolality and hyponatremia Status: Chronic Assessment and Plan: * known chronic issue - a bit worse on admission * baseline sodium seems to run around 129 - 134 (at best) * multiple risk factors for hyponatremia: * pneumonia * underlying lung disease (COPD) * pleural effusion * SSRI use (lexapro) * PPI use (nexium) * hypothyroidism (restarted treatment on this admission) * evaluation noted currently and on previous hospitalization: * CXR results shows early left-sided infiltrate with a large left-sided pleural effusion * CT of head shows no intracranial hemorrhage or suspicious mass effect * urine electrolytes prerenal * TSH quite elevated - levothyroxine adjusted * cortisol okay * SPEP/UPEP in the past negative; repeat testing pending * currently on furosemide plus salt tablets * increased lasix and salt tabs * add fluid restriction (2) Pneumonia: Code(s): J18.9 - Pneumonia, unspecified organism Status: Acute Assessment and Plan: * as suggested by admission imaging * on cefepime and azithromycin * blood cultures negative to date * monitor respiratory status (3) Pleural effusion on left: Code(s): J90 - Pleural effusion, not elsewhere classified Status: Acute Assessment and Plan: * as noted by admission imaging * on antibiotics * diuretic therapy may help (4) Altered mental status: Code(s): R41.82 - Altered mental status, unspecified Status: Acute Assessment and Plan: * back to baseline (5) COPD (chronic obstructive pulmonary disease): Code(s): J44.9 - Chronic obstructive pulmonary disease, unspecified Status: Acute Assessment and Plan: * no evidence of exacerbation * continue home medications/inhalers Will continue to follow. Subjective Date/time seen: 03/15/24 12:20 Interval history: Follow-up for acute on chronic hyponatremia. Remains quite resistant to ongoing attempts to improve/stabilize his sodium levels as noted by the trend of his sodium level in the last 24 - 48 hours; no apparent distress noted; no issues/events overnight or earlier this morning. Exam Narrative: General: WD thin male in NAD Heart: normal S1 and S2; no rub Lungs: coarse breath sounds; decreased on the left Abdomen: soft, nontender, nondistended, positive bowel sounds Extremities: trace edema, no cyanosis Skin: warn and intact Objective Data Vital Signs Vital Signs: Vital Signs Temp Pulse Resp BP Pulse Ox O2 Del Method 03/15/24 12:00 97.3 F L 64 18 98/87 L 95 03/15/24 12:04 63 03/15/24 11:09 68 18 03/15/24 10:52 70 18 03/15/24 09:52 95 Room Air 03/15/24 08:01 59 L Intake/Output Intake/Output: Intake & Output 03/13/24 03/14/24 03/15/24 03/16/24 23:59 23:59 23:59 23:59 Intake Total 1180 1160 1160 340 Output Total 3500 1700 450 400 Balance -2800 -420 710 -60 Meds/Results Medications: Active Medications Generic Name Dose Route Start Last Admin Trade Name Freq PRN Reason Stop Dose Admin Acetaminophen 650 mg 03/08/24 11:58 Acetaminophen 325 Mg Tablet BY MOUTH Q6H PRN Pain Al Hydrox/Mg Hydrox/Simethicone 30 ml 03/07/24 21:44 Mag Hydrox/Al Hydrox/Simeth 30 Ml Udc PO Q6H PRN Indigestion Albuterol 2.5 mg 03/08/24 16:08 03/08/24 20:55 Albuterol Sulfate Neb 2.5 Mg/3 Ml Inh INHALATION 2.5 mg Q6HRT PRN Administration Shortness Of Breath Albuterol/Ipratropium 3 ml 03/08/24 20:30 03/16/24 07:57 Ipratropium 0.5 Mg/Albuterol Sulfate 2.5 Mg Ampul.Neb 3 Ml INHALATION 3 ml Q6HRT CARYL Administration Alprazolam 1 mg 03/08/24 15:44 03/09/24 20:28 Alprazolam (*Crx) 0.5 Mg Tablet PO 1 mg TID PRN Administration anxiety Baclofen 5 mg 03/08/24 15:44 Baclofen 5 Mg Tablet PO TID PRN muscle spasms Benzonatate 100 mg 03/08/24 11:57 Benzonatate 100 Mg Capsule PO TID PRN Cough Ferrous Sulfate 142 mg 03/12/24 08:00 03/16/24 08:15 Ferrous Sulfate Dried 142 Mg Tabcr PO 142 mg BIDWM CARYL Administration Fluticasone/Umeclidinium/Vilanterol 1 puff 03/09/24 08:00 03/15/24 07:40 Fluticasone/Umeclidin/Vilanter 100-62.5-25 Mcg Ellipta INHALATION 1 puff DAILYRT CARYL Administration Furosemide 20 mg 03/13/24 09:00 03/16/24 08:15 Furosemide 20 Mg Tablet PO 20 mg BID CARYL Administration Guaifenesin 600 mg 03/08/24 21:00 03/16/24 08:15 Guaifenesin 12 Hr 600 Mg Tabcr PO 600 mg Q12HR CARYL Administration Levothyroxine Sodium 37.5 mcg 03/15/24 06:30 03/16/24 06:37 Levothyroxine Sodium 12.5 Mcg Tablet PO 37.5 mcg DAILY@0630 CARYL Administration Levothyroxine Sodium 150 mcg 03/15/24 06:30 03/16/24 06:37 Levothyroxine Sodium 150 Mcg Tablet PO 150 mcg DAILY@0630 CARYL Administration Ondansetron HCl 4 mg 03/07/24 20:36 Ondansetron Inj 4 Mg/2 Ml Vial IV PUSH Q4H PRN Nausea Polyethylene Glycol 17 gm 03/07/24 21:44 03/12/24 18:01 Polyethylene Glycol 3350 17 Gm Powd.Pack PO 17 gm QAM PRN Administration Constipation Ranolazine 500 mg 03/08/24 21:00 03/16/24 08:15 Ranolazine 500 Mg Tab.Er.12h PO 500 mg Q12HR CARYL Administration Simvastatin 20 mg 03/09/24 09:00 03/16/24 08:15 Simvastatin 20 Mg Tablet PO 20 mg DAILY CARYL Administration Sodium Chloride 2 gm 03/13/24 09:00 03/16/24 08:15 Sodium Chloride 1 Gm Tablet PO 2 gm BID CARYL Administration Radiology Results: ITS Impressions Head CT 03/07/24 19:52 Impression: No acute intracranial hemorrhage or suspicious mass effect. Modified Barium Swallow 03/10/24 11:34 IMPRESSION: 1. Aspiration. 2. Please refer to the speech therapy report for recommendations. Chest X-Ray 03/11/24 07:39 Impression: Minimal pleural effusions with possible asymmetric left-sided pulmonary edema versus pneumonia left lung. Underlying COPD. Labs Labs: Laboratory Results - last 24 hr 03/15/24 08:15 WBC 5.7 Hgb 9.9 L Hct 29.8 L Plt Count 194 Sodium 122 L Potassium 4.2 Chloride 87 L Carbon Dioxide 32 H Anion Gap 3 L BUN 13 Creatinine 0.50 L Estim Creat Clear Calc 98 Estimated GFR > 60 Glucose 82 Calcium 8.3 L
[2024-03-16] VITALS (17 sets, daily range): BP systolic 96–106; BP diastolic 54–65; PULSE 59–95; RESP 16–20; TEMP 36.2–36.8; O2SAT 92–97
[2024-03-16] MEDS: IPRATROPIUM 0.5 MG/ALBUTEROL SULFATE 2.5 MG AMPUL.NEB 3 ML INHALATION ×4 (02:05→19:52)
[2024-03-16 06:07] LABS: Hematocrit 28.9 % (42.0-52.0); Hemoglobin 9.6 g/dL (14.0-18.0); Mean Corpuscular HGB Conc 33.2 g/dl (32-36); Mean Corpuscular Hemoglobin 28.7 pg (26-34); Mean Corpuscular Volume 86.5 fl (80-100); Mean Platelet Volume 8.5 fl (7.4-10.4); Platelet Count Result 184 k/mm3 (150-375); Red Blood Count 3.34 M/mm3 (4.6-6.20); Red Cell Distribution Width 18.2 % (11.5-14.5); White Blood Count 6.3 K/mm3 (4.5-10.0)
[2024-03-16 06:20] LABS: Alanine Aminotransferase 11 U/L (6-50); Albumin Level 3.5 g/dL (3.5-5.1); Alkaline Phosphatase 137 U/L (38-126); Anion Gap 4 mmol/L (4-12); Aspartate Amino Transferase 28 U/L (17-59); Bilirubin,Total 0.9 mg/dL (0.2-1.3); Blood Urea Nitrogen 15 mg/dL (9-20); Calcium 8.2 mg/dL (8.4-10.2); Carbon Dioxide 31 mmol/L (22-30); Chloride 89 mmol/L (98-107); Estimated CRCL calculation 83 ml/min; Estimated Glomerular Filt Rate > 60; Glucose 90 mg/dL (65-110); Potassium 3.5 mmol/L (3.4-5.0); Sodium 124 mmol/L (137-145)
[2024-03-16] MEDS: LEVOTHYROXINE SODIUM 150 MCG TABLET PO (06:37)
[2024-03-16] MEDS: LEVOTHYROXINE SODIUM 12.5 MCG TABLET 37.5 MCG PO (06:37)
--- NOTE | 2024-03-16 07:11 | P.PNIM_ITS ---
Progress Note: A&P Assessment and Plan (1) Acute hypoxic respiratory failure: Code(s): J96.01 - Acute respiratory failure with hypoxia Status: Acute Assessment and Plan: On admission was requiring supplemental oxygen by nasal cannula ABG: pH 7.440, pCO2 44.2, pO2 84.2, HCO3 29.3 Resolved. Back on baseline room air. (2) Altered mental status: Code(s): R41.82 - Altered mental status, unspecified Status: Acute Assessment and Plan: Head CT: No acute intracranial hemorrhage or suspicious mass effect. Likely of endocrine metabolic etiology Speech eval is completed- recommendations reviewed and ordered for diet Resolved. Remains AOx3 (person, place, year) (3) Hyponatremia: Code(s): E87.1 - Hypo-osmolality and hyponatremia Status: Acute Assessment and Plan: Chronic, baseline appears around 129-134 (at best) per nephrology - multiple risk factors * pneumonia * underlying lung disease (COPD) * pleural effusion * SSRI use (lexapro) * PPI use (nexium) * hypothyroidism (restarted treatment on this admission) - Received NS 2 L in emergency room with up trending of the sodium -Continue to monitor with serial BMP -Nephrology consulted- appreciate recommendations 03/14 sodium dropped to 122, recheck was 124 per Nephrology patient is to stay inpatient until his sodium is closer to 130. He remains on Lasix 20 mg b.i.d. and salt tab 2 g b.i.d. 03/15 sodium remains low at 122 a.m. on a.m. labs discussed patient again with Nephrology and will start him on a fluid restriction of 1500 mL a day 03/16 sodium sandeep to 124 on a.m. labs (4) Pneumonia: Code(s): J18.9 - Pneumonia, unspecified organism Status: Acute Assessment and Plan: CXR 03/07: Early left-sided infiltrate with a large left-sided pleural effusion. CXR 03/11: Minimal pleural effusions with possible asymmetric left-sided pulmonary edema versus pneumonia left lung. Underlying COPD. - Risk Factors: none - antibiotics: vancomycin cefepime and Zithromax but downgraded to cefepime and azithromycin, to be completed today 03/14 - Viral PCR: negative for Flu/COVID/RSV - MRSA negative - Blood cultures: Final - Negative - no supplemental O2 requirement - supportive treatment tyl and ibu prn nebs prn tesslon perles prn - trend labs - Monitor vital signs, I&Os, neuro status and patient is a fall risk - Follow WBC, serum electrolytes, temperature curves and cultures (5) Pleural effusion on left: Code(s): J90 - Pleural effusion, not elsewhere classified Status: Acute Assessment and Plan: Likely to be a parapneumonic effusion as patient with infiltrate Start on vancomycin Zithromax and cefepime due to recent admission as well patient living in rehabilitation center 03/08- mrsa swab neg- stop vanc- downgrade to PO zithromax-- continue cefepime iv antibiotics. Course completed during admission. - CPT ordered - Continue to encourage cought/deep breathing - pt/ot- out of bed-ambulate with assistance - pt is high fall risk (6) Normocytic anemia: Code(s): D64.9 - Anemia, unspecified Status: Acute Assessment and Plan: Chronic, continue to monitor hgb dropped, repeated- 7. transfuse 1 unit of RPBC 03/13 iron studies done- will start on iron supplements -hg rechecked- stable this am (7) Hypothyroidism: Code(s): E03.9 - Hypothyroidism, unspecified Status: Acute Assessment and Plan: h/o thyroid ca, s/p chemo,radiation - levothyroxine 175 mcg on admission - tsh 60- repeated 58 with low t4 - will increase dose to 187.5 mcg- will need an outpt f/u with repeated TSH in 6-8 months (8) GERD (gastroesophageal reflux disease): Code(s): K21.9 - Gastro-esophageal reflux disease without esophagitis Status: Acute Assessment and Plan: PPI (9) COPD (chronic obstructive pulmonary disease): Code(s): J44.9 - Chronic obstructive pulmonary disease, unspecified Status: Acute Assessment and Plan: continue home meds not actively wheezing - encouraged IS if able to follow instructions out of bed for meals work with pt/ot (10) Protein calorie malnutrition: Code(s): E46 - Unspecified protein-calorie malnutrition Status: Acute Assessment and Plan: liberalize diet (11) Tobacco dependence: Code(s): F17.200 - Nicotine dependence, unspecified, uncomplicated Status: Acute Assessment and Plan: nicotine patch as needed Time Spent With Patient Time with patient: 25 - 35 minutes Subjective Date/time seen: 03/16/24 07:11 Interval history: Patient is pleasant sitting up in his chair. He remains alert and oriented x3. he has no other complaints at this time denying chest pain, shortness of breath, palpitations, nausea/vomiting, and abdominal pain. His sodium has slightly improved on the fluid restriction. Will continue current treatment plan. Review of Systems Review of Systems: All systems reviewed & are unremarkable except as noted in HPI and below Exam Narrative: AF HR 88 RR 20 SpO2 95 BP 104/65 General: frail male in no acute respiratory distress who is chronically ill appearing, sitting up in his chair HEENT: Normocephalic. Atraumatic. Extraocular movement intact. Sclera clear and anicteric. Anisocoria (L>R) per patient this is chronic. No facial asymmetry. Chest: Lungs are diminished to auscultation bilaterally. No wheezes or crackles. CV: Heart was regular rate and rhythm. S1/S2. No murmurs, gallops, or rubs. Abd: Abdomen was soft. Nontender. Nondistended. Positive bowel sounds. No organomegaly or masses. Ext: No clubbing, cyanosis, or edema. 2+ DP pulses bilaterally. Neuro: Patient is alert and oriented x3 (person, place, year). Cranial nerves 2- 12 are intact. Speech is clear. Objective Data Vital Signs Vital Signs: Vital Signs - 24 hr 03/15/24 07:44 03/15/24 07:44 03/15/24 07:52 Temperature Pulse Rate 67 64 Respiratory Rate 20 20 Blood Pressure Pulse Oximetry 96 Oxygen Delivery Room Air Fraction of Inspired Oxygen 03/15/24 08:00 03/15/24 08:00 03/15/24 08:04 Temperature 96.6 F L Pulse Rate 62 64 Respiratory Rate 20 16 Blood Pressure 123/70 Pulse Oximetry 96 95 Oxygen Delivery Room Air Fraction of Inspired Oxygen 28 03/15/24 12:01 03/15/24 13:52 03/15/24 13:52 Temperature Pulse Rate 59 L 70 Respiratory Rate 18 Blood Pressure Pulse Oximetry 95 Oxygen Delivery Room Air Fraction of Inspired Oxygen 03/15/24 14:09 03/15/24 16:04 03/15/24 16:00 Temperature 97.3 F L Pulse Rate 68 63 64 Respiratory Rate 18 18 Blood Pressure 98/87 L Pulse Oximetry 95 Oxygen Delivery Fraction of Inspired Oxygen 03/15/24 20:37 03/15/24 20:40 03/15/24 20:43 Temperature Pulse Rate 67 67 69 Respiratory Rate 18 18 Blood Pressure Pulse Oximetry 93 Oxygen Delivery Room Air Fraction of Inspired Oxygen 03/15/24 20:00 03/15/24 22:01 03/16/24 00:00 Temperature 98.5 F Pulse Rate 66 100 66 Respiratory Rate 16 Blood Pressure 100/55 L Pulse Oximetry 93 Oxygen Delivery Fraction of Inspired Oxygen 03/16/24 02:05 03/16/24 02:13 03/16/24 06:32 Temperature 98.2 F Pulse Rate 65 66 67 Respiratory Rate 18 18 18 Blood Pressure 106/56 L Pulse Oximetry 92 Oxygen Delivery Fraction of Inspired Oxygen 03/16/24 04:00 Temperature Pulse Rate 68 Respiratory Rate Blood Pressure Pulse Oximetry Oxygen Delivery Fraction of Inspired Oxygen Intake/Output Intake/Output: Intake & Output 03/13/24 03/14/24 03/15/24 03/16/24 23:59 23:59 23:59 23:59 Intake Total 1180 1160 1160 100 Output Total 3500 1700 450 400 Balance -2320 -540 710 -300 Meds/Results Medications: Active Medications Generic Name Dose Route Start Last Admin Trade Name Freq PRN Reason Stop Dose Admin Acetaminophen 650 mg 03/08/24 11:58 Acetaminophen 325 Mg Tablet BY MOUTH Q6H PRN Pain Al Hydrox/Mg Hydrox/Simethicone 30 ml 03/07/24 21:44 Mag Hydrox/Al Hydrox/Simeth 30 Ml Udc PO Q6H PRN Indigestion Albuterol 2.5 mg 03/08/24 16:08 03/08/24 20:55 Albuterol Sulfate Neb 2.5 Mg/3 Ml Inh INHALATION 2.5 mg Q6HRT PRN Administration Shortness Of Breath Albuterol/Ipratropium 3 ml 03/08/24 20:30 03/16/24 02:05 Ipratropium 0.5 Mg/Albuterol Sulfate 2.5 Mg Ampul.Neb 3 Ml INHALATION 3 ml Q6HRT CARYL Administration Alprazolam 1 mg 03/08/24 15:44 03/09/24 20:28 Alprazolam (*Crx) 0.5 Mg Tablet PO 1 mg TID PRN Administration anxiety Baclofen 5 mg 03/08/24 15:44 Baclofen 5 Mg Tablet PO TID PRN muscle spasms Benzonatate 100 mg 03/08/24 11:57 Benzonatate 100 Mg Capsule PO TID PRN Cough Ferrous Sulfate 142 mg 03/12/24 08:00 03/15/24 16:38 Ferrous Sulfate Dried 142 Mg Tabcr PO 142 mg BIDWM CARYL Administration Fluticasone/Umeclidinium/Vilanterol 1 puff 03/09/24 08:00 03/15/24 07:40 Fluticasone/Umeclidin/Vilanter 100-62.5-25 Mcg Ellipta INHALATION 1 puff DAILYRT CARYL Administration Furosemide 20 mg 03/13/24 09:00 03/15/24 16:38 Furosemide 20 Mg Tablet PO 20 mg BID CARYL Administration Guaifenesin 600 mg 03/08/24 21:00 03/15/24 20:29 Guaifenesin 12 Hr 600 Mg Tabcr PO 600 mg Q12HR CARYL Administration Levothyroxine Sodium 37.5 mcg 03/15/24 06:30 03/16/24 06:37 Levothyroxine Sodium 12.5 Mcg Tablet PO 37.5 mcg DAILY@0630 CARYL Administration Levothyroxine Sodium 150 mcg 03/15/24 06:30 03/16/24 06:37 Levothyroxine Sodium 150 Mcg Tablet PO 150 mcg DAILY@0630 CARYL Administration Ondansetron HCl 4 mg 03/07/24 20:36 Ondansetron Inj 4 Mg/2 Ml Vial IV PUSH Q4H PRN Nausea Polyethylene Glycol 17 gm 03/07/24 21:44 03/12/24 18:01 Polyethylene Glycol 3350 17 Gm Powd.Pack PO 17 gm QAM PRN Administration Constipation Ranolazine 500 mg 03/08/24 21:00 03/15/24 20:29 Ranolazine 500 Mg Tab.Er.12h PO 500 mg Q12HR CARYL Administration Simvastatin 20 mg 03/09/24 09:00 03/15/24 08:43 Simvastatin 20 Mg Tablet PO 20 mg DAILY CARYL Administration Sodium Chloride 2 gm 03/13/24 09:00 03/15/24 16:38 Sodium Chloride 1 Gm Tablet PO 2 gm BID CARYL Administration Radiology Results: ITS Impressions Head CT 03/07/24 19:52 Impression: No acute intracranial hemorrhage or suspicious mass effect. Modified Barium Swallow 03/10/24 11:34 IMPRESSION: 1. Aspiration. 2. Please refer to the speech therapy report for recommendations. Chest X-Ray 03/11/24 07:39 Impression: Minimal pleural effusions with possible asymmetric left-sided pulmonary edema versus pneumonia left lung. Underlying COPD. Labs Labs: Laboratory Results - last 24 hr 03/15/24 03/16/24 08:15 05:35 WBC 5.7 6.3 RBC 3.43 L 3.34 L Hgb 9.9 L 9.6 L Hct 29.8 L 28.9 L MCV 86.9 86.5 MCH 28.9 28.7 MCHC 33.2 33.2 RDW 18.4 H 18.2 H Plt Count 194 184 MPV 8.7 8.5 Sodium 122 L 124 L Potassium 4.2 3.5 Chloride 87 L 89 L Carbon Dioxide 32 H 31 H Anion Gap 3 L 4 BUN 13 15 Creatinine 0.50 L 0.60 L Estim Creat Clear Calc 98 83 Estimated GFR > 60 > 60 Glucose 82 90 Calcium 8.3 L 8.2 L Total Bilirubin 0.9 AST 28 ALT 11 Alkaline Phosphatase 137 H Total Protein 7.0 Albumin 3.5 Quality VTE Prophylaxis VTE prophylaxis: mechanical ordered
[2024-03-16] MEDS: FUROSEMIDE 20 MG TABLET PO ×2 (08:15→17:23)
[2024-03-16] MEDS: SODIUM CHLORIDE 1 GM TABLET 2 GM PO ×2 (08:15→17:23)
[2024-03-16] MEDS: FERROUS SULFATE DRIED 142 MG TABCR PO ×2 (08:15→17:23)
[2024-03-16] MEDS: RANOLAZINE 500 MG TAB.ER.12H PO ×2 (08:15→20:07)
[2024-03-16] MEDS: SIMVASTATIN 20 MG TABLET PO (08:15)
[2024-03-16] MEDS: guaiFENesin 12 HR 600 MG TABCR PO ×2 (08:15→20:07)
--- NOTE | 2024-03-16 11:36 | P.PNNP_ITS ---
Progress Note: A&P Assessment and Plan (1) Hyponatremia: Code(s): E87.1 - Hypo-osmolality and hyponatremia Status: Chronic Assessment and Plan: * known chronic issue - a bit worse on admission * baseline sodium seems to run around 129 - 134 (at best) * multiple risk factors for hyponatremia: * pneumonia * underlying lung disease (COPD) * pleural effusion * SSRI use (lexapro) * PPI use (nexium) * hypothyroidism (restarted treatment on this admission) * evaluation noted currently and on previous hospitalization: * CXR results shows early left-sided infiltrate with a large left-sided pleural effusion * CT of head shows no intracranial hemorrhage or suspicious mass effect * urine electrolytes prerenal * TSH quite elevated - levothyroxine adjusted * cortisol okay * SPEP/UPEP in the past negative; repeat testing pending * currently on furosemide plus salt tablets * increased lasix and salt tabs * just added fluid restriction (2) Pneumonia: Code(s): J18.9 - Pneumonia, unspecified organism Status: Acute Assessment and Plan: * as suggested by admission imaging * on cefepime and azithromycin * blood cultures negative to date * monitor respiratory status (3) Pleural effusion on left: Code(s): J90 - Pleural effusion, not elsewhere classified Status: Acute Assessment and Plan: * as noted by admission imaging * on antibiotics * diuretic therapy may help (4) Altered mental status: Code(s): R41.82 - Altered mental status, unspecified Status: Acute Assessment and Plan: * back to baseline (5) COPD (chronic obstructive pulmonary disease): Code(s): J44.9 - Chronic obstructive pulmonary disease, unspecified Status: Acute Assessment and Plan: * no evidence of exacerbation * continue home medications/inhalers Will continue to follow. Subjective Date/time seen: 03/16/24 11:36 Interval history: Follow-up for acute on chronic hyponatremia. Slight improvement in sodium level with addition of fluid restriction; no other apparent issues or problems noted at this time; no acute complaints voiced. Exam Narrative: General: WD thin male in NAD Heart: normal S1 and S2; no rub Lungs: coarse breath sounds; decreased on the left Abdomen: soft, nontender, nondistended, positive bowel sounds Extremities: trace edema, no cyanosis Skin: no rash Objective Data Vital Signs Vital Signs: Vital Signs Temp Pulse Resp BP Pulse Ox O2 Del Method 11/15/24 11:00 59 L 03/16/24 08:00 61 03/16/24 08:15 Room Air 03/16/24 08:00 97.1 F L 64 18 104/65 95 03/16/24 08:12 69 20 03/16/24 07:59 67 20 03/16/24 07:59 95 Room Air 03/16/24 04:00 68 03/16/24 06:32 98.2 F 67 18 106/56 L 92 03/16/24 02:13 66 18 03/16/24 02:05 65 18 03/16/24 00:00 66 03/15/24 22:01 98.5 F 100 16 100/55 L 93 03/15/24 20:00 66 03/15/24 20:43 69 18 03/15/24 20:40 67 93 Room Air 03/15/24 20:37 67 18 Intake/Output Intake/Output: Intake & Output 03/13/24 03/14/24 03/15/24 03/16/24 23:59 23:59 23:59 23:59 Intake Total 1180 1160 1160 580 Output Total 3500 1700 450 400 Balance -2320 -540 710 180 Meds/Results Medications: Active Medications Generic Name Dose Route Start Last Admin Trade Name Freq PRN Reason Stop Dose Admin Acetaminophen 650 mg 03/08/24 11:58 Acetaminophen 325 Mg Tablet BY MOUTH Q6H PRN Pain Al Hydrox/Mg Hydrox/Simethicone 30 ml 03/07/24 21:44 Mag Hydrox/Al Hydrox/Simeth 30 Ml Udc PO Q6H PRN Indigestion Albuterol 2.5 mg 03/08/24 16:08 03/08/24 20:55 Albuterol Sulfate Neb 2.5 Mg/3 Ml Inh INHALATION 2.5 mg Q6HRT PRN Administration Shortness Of Breath Albuterol/Ipratropium 3 ml 03/08/24 20:30 03/16/24 14:00 Ipratropium 0.5 Mg/Albuterol Sulfate 2.5 Mg Ampul.Neb 3 Ml INHALATION 3 ml Q6HRT CARYL Administration Alprazolam 1 mg 03/08/24 15:44 03/09/24 20:28 Alprazolam (*Crx) 0.5 Mg Tablet PO 1 mg TID PRN Administration anxiety Baclofen 5 mg 03/08/24 15:44 Baclofen 5 Mg Tablet PO TID PRN muscle spasms Benzonatate 100 mg 03/08/24 11:57 Benzonatate 100 Mg Capsule PO TID PRN Cough Ferrous Sulfate 142 mg 03/12/24 08:00 03/16/24 17:23 Ferrous Sulfate Dried 142 Mg Tabcr PO 142 mg BIDWM CARYL Administration Fluticasone/Umeclidinium/Vilanterol 1 puff 03/09/24 08:00 03/15/24 07:40 Fluticasone/Umeclidin/Vilanter 100-62.5-25 Mcg Ellipta INHALATION 1 puff DAILYRT CARYL Administration Furosemide 20 mg 03/13/24 09:00 03/16/24 17:23 Furosemide 20 Mg Tablet PO 20 mg BID CARYL Administration Guaifenesin 600 mg 03/08/24 21:00 03/16/24 08:15 Guaifenesin 12 Hr 600 Mg Tabcr PO 600 mg Q12HR CARYL Administration Levothyroxine Sodium 37.5 mcg 03/15/24 06:30 03/16/24 06:37 Levothyroxine Sodium 12.5 Mcg Tablet PO 37.5 mcg DAILY@0630 CARYL Administration Levothyroxine Sodium 150 mcg 03/15/24 06:30 03/16/24 06:37 Levothyroxine Sodium 150 Mcg Tablet PO 150 mcg DAILY@0630 CARYL Administration Ondansetron HCl 4 mg 03/07/24 20:36 Ondansetron Inj 4 Mg/2 Ml Vial IV PUSH Q4H PRN Nausea Polyethylene Glycol 17 gm 03/07/24 21:44 03/12/24 18:01 Polyethylene Glycol 3350 17 Gm Powd.Pack PO 17 gm QAM PRN Administration Constipation Ranolazine 500 mg 03/08/24 21:00 03/16/24 08:15 Ranolazine 500 Mg Tab.Er.12h PO 500 mg Q12HR CARYL Administration Simvastatin 20 mg 03/09/24 09:00 03/16/24 08:15 Simvastatin 20 Mg Tablet PO 20 mg DAILY CARYL Administration Sodium Chloride 2 gm 03/16/24 17:00 03/16/24 17:23 Sodium Chloride 1 Gm Tablet PO 2 gm BID CARYL Administration Sodium Chloride 500 mg 03/16/24 17:00 03/16/24 17:24 Sodium Chloride 500 Mg Tablet PO 500 mg BID CARYL Administration Radiology Results: ITS Impressions Head CT 03/07/24 19:52 Impression: No acute intracranial hemorrhage or suspicious mass effect. Modified Barium Swallow 03/10/24 11:34 IMPRESSION: 1. Aspiration. 2. Please refer to the speech therapy report for recommendations. Chest X-Ray 03/11/24 07:39 Impression: Minimal pleural effusions with possible asymmetric left-sided pulmonary edema versus pneumonia left lung. Underlying COPD. Labs Labs: Laboratory Tests 03/16/24 05:35 03/16/24 05:35 Calcium 8.2 L Total Bilirubin 0.9 AST 28 ALT 11 Alkaline Phosphatase 137 H Total Protein 7.0 Albumin 3.5
--- NOTE | 2024-03-16 14:03 | PCRCNOTE ---
Pt refusing vest treatments at this time. Pt states he does not like it and it makes him nauseated. Pt is using cornet with treatments and throughout the day on own.
[2024-03-16] MEDS: SODIUM CHLORIDE 500 MG TABLET PO (17:24)
[2024-03-17] VITALS (18 sets, daily range): BP systolic 90–135; BP diastolic 52–68; PULSE 55–87; RESP 18–20; TEMP 35.7–36.8; O2SAT 93–98
[2024-03-17] MEDS: IPRATROPIUM 0.5 MG/ALBUTEROL SULFATE 2.5 MG AMPUL.NEB 3 ML INHALATION ×4 (02:58→20:18)
[2024-03-17 05:51] LABS: Hematocrit 29.8 % (42.0-52.0); Hemoglobin 9.5 g/dL (14.0-18.0); Mean Corpuscular HGB Conc 31.9 g/dl (32-36); Mean Corpuscular Hemoglobin 28.4 pg (26-34); Mean Corpuscular Volume 89.2 fl (80-100); Mean Platelet Volume 9.2 fl (7.4-10.4); Platelet Count Result 183 k/mm3 (150-375); Red Blood Count 3.34 M/mm3 (4.6-6.20); Red Cell Distribution Width 18.7 % (11.5-14.5); White Blood Count 8.6 K/mm3 (4.5-10.0)
[2024-03-17 05:59] LABS: Alanine Aminotransferase 10 U/L (6-50); Albumin Level 3.4 g/dL (3.5-5.1); Alkaline Phosphatase 118 U/L (38-126); Anion Gap 5 mmol/L (4-12); Aspartate Amino Transferase 24 U/L (17-59); Bilirubin,Total 0.6 mg/dL (0.2-1.3); Blood Urea Nitrogen 18 mg/dL (9-20); Calcium 8.3 mg/dL (8.4-10.2); Carbon Dioxide 33 mmol/L (22-30); Chloride 93 mmol/L (98-107); Estimated CRCL calculation 84 ml/min; Estimated Glomerular Filt Rate > 60; Glucose 95 mg/dL (65-110); Potassium 3.9 mmol/L (3.4-5.0); Sodium 131 mmol/L (137-145)
[2024-03-17] MEDS: LEVOTHYROXINE SODIUM 150 MCG TABLET PO (06:23)
[2024-03-17] MEDS: LEVOTHYROXINE SODIUM 12.5 MCG TABLET 37.5 MCG PO (06:23)
[2024-03-17] MEDS: FLUTICASONE/UMECLIDIN/VILANTER 100-62.5-25 MCG ELLIPTA 1 PUFF INHALATION (07:56)
[2024-03-17] MEDS: SIMVASTATIN 20 MG TABLET PO (09:08)
[2024-03-17] MEDS: guaiFENesin 12 HR 600 MG TABCR PO (09:08)
[2024-03-17] MEDS: RANOLAZINE 500 MG TAB.ER.12H PO ×2 (09:08→21:35)
[2024-03-17] MEDS: FUROSEMIDE 20 MG TABLET PO ×2 (09:08→17:18)
[2024-03-17] MEDS: FERROUS SULFATE DRIED 142 MG TABCR PO ×2 (09:09→17:18)
[2024-03-17] MEDS: SODIUM CHLORIDE 1 GM TABLET 2 GM PO ×2 (09:09→17:18)
[2024-03-17] MEDS: SODIUM CHLORIDE 500 MG TABLET PO ×2 (09:10→17:18)
[2024-03-17] MEDS: ACETAMINOPHEN 325 MG TABLET 650 MG BY MOUTH (09:11)
--- NOTE | 2024-03-17 12:43 | P.PNNP_ITS ---
Progress Note: A&P Assessment and Plan (1) Hyponatremia: Code(s): E87.1 - Hypo-osmolality and hyponatremia Status: Chronic Assessment and Plan: * known chronic issue - a bit worse on admission * baseline sodium seems to run around 129 - 134 (at best) * multiple risk factors for hyponatremia: * pneumonia * underlying lung disease (COPD) * pleural effusion * SSRI use (lexapro) * PPI use (nexium) * hypothyroidism (restarted treatment on this admission) * evaluation noted currently and on previous hospitalization: * CXR results shows early left-sided infiltrate with a large left-sided pleural effusion * CT of head shows no intracranial hemorrhage or suspicious mass effect * urine electrolytes prerenal * TSH quite elevated - levothyroxine adjusted * cortisol okay * SPEP/UPEP in the past negative; repeat testing pending * currently on furosemide 20mg twice a day plus salt tablets 1g twice and on a fluid restriction. * Sodium level up to 121 today (2) Pneumonia: Code(s): J18.9 - Pneumonia, unspecified organism Status: Acute Assessment and Plan: * as suggested by admission imaging * on cefepime and azithromycin * blood cultures negative to date * monitor respiratory status (3) Pleural effusion on left: Code(s): J90 - Pleural effusion, not elsewhere classified Status: Acute Assessment and Plan: * as noted by admission imaging * on antibiotics * diuretic therapy may help (4) Altered mental status: Code(s): R41.82 - Altered mental status, unspecified Status: Acute Assessment and Plan: * back to baseline (5) COPD (chronic obstructive pulmonary disease): Code(s): J44.9 - Chronic obstructive pulmonary disease, unspecified Status: Acute Assessment and Plan: * no evidence of exacerbation * continue home medications/inhalers Will continue to follow. Subjective Date/time seen: 03/17/24 12:43 Interval history: patient is awake. Still coughing no shortness of breath Exam Narrative: General: WD thin male in NAD Heart: normal S1 and S2; no rub or gallop Lungs: coarse breath sounds; decreased on the left Abdomen: soft, nontender, nondistended, positive bowel sounds Extremities: trace edema, no cyanosis Skin: no rash or subcu nodules Objective Data Vital Signs Vital Signs: Vital Signs - 24 hr 03/16/24 14:00 03/16/24 14:00 03/16/24 14:12 Temperature Pulse Rate 64 88 Respiratory Rate 20 20 Blood Pressure Pulse Oximetry 95 Oxygen Delivery Room Air Fraction of Inspired Oxygen 03/16/24 16:00 03/16/24 16:00 03/16/24 19:52 Temperature 97.5 F L Pulse Rate 59 L 74 95 Respiratory Rate 16 20 Blood Pressure 98/54 L Pulse Oximetry 97 Oxygen Delivery Fraction of Inspired Oxygen 03/16/24 19:55 03/16/24 20:02 03/16/24 20:00 Temperature Pulse Rate 65 65 Respiratory Rate 18 Blood Pressure Pulse Oximetry 95 Oxygen Delivery Room Air Fraction of Inspired Oxygen 03/16/24 21:05 03/17/24 00:00 03/17/24 02:58 Temperature 97.5 F L Pulse Rate 69 71 68 Respiratory Rate 18 18 Blood Pressure 96/55 L Pulse Oximetry 97 Oxygen Delivery Fraction of Inspired Oxygen 03/17/24 03:06 03/17/24 04:00 03/17/24 05:44 Temperature 97.8 F Pulse Rate 67 66 71 Respiratory Rate 20 20 Blood Pressure 135/63 Pulse Oximetry 94 Oxygen Delivery Fraction of Inspired Oxygen 03/17/24 07:46 03/17/24 07:46 03/17/24 07:56 Temperature Pulse Rate 65 68 Respiratory Rate 20 20 Blood Pressure Pulse Oximetry 96 Oxygen Delivery Room Air Fraction of Inspired Oxygen 21 03/17/24 08:25 Temperature Pulse Rate Respiratory Rate Blood Pressure Pulse Oximetry Oxygen Delivery Room Air Fraction of Inspired Oxygen Intake/Output Intake/Output: Intake & Output 03/14/24 03/15/24 03/16/24 03/17/24 23:59 23:59 23:59 23:59 Intake Total 1160 1160 580 360 Output Total 1700 450 400 300 Balance -540 710 180 60 Meds/Results Medications: Active Medications Generic Name Dose Route Start Last Admin Trade Name Freq PRN Reason Stop Dose Admin Acetaminophen 650 mg 03/08/24 11:58 03/17/24 09:11 Acetaminophen 325 Mg Tablet BY MOUTH 650 mg Q6H PRN Administration Pain Al Hydrox/Mg Hydrox/Simethicone 30 ml 03/07/24 21:44 Mag Hydrox/Al Hydrox/Simeth 30 Ml Udc PO Q6H PRN Indigestion Albuterol 2.5 mg 03/08/24 16:08 03/08/24 20:55 Albuterol Sulfate Neb 2.5 Mg/3 Ml Inh INHALATION 2.5 mg Q6HRT PRN Administration Shortness Of Breath Albuterol/Ipratropium 3 ml 03/08/24 20:30 03/17/24 07:46 Ipratropium 0.5 Mg/Albuterol Sulfate 2.5 Mg Ampul.Neb 3 Ml INHALATION 3 ml Q6HRT CARYL Administration Alprazolam 1 mg 03/08/24 15:44 03/09/24 20:28 Alprazolam (*Crx) 0.5 Mg Tablet PO 1 mg TID PRN Administration anxiety Baclofen 5 mg 03/08/24 15:44 Baclofen 5 Mg Tablet PO TID PRN muscle spasms Benzonatate 100 mg 03/08/24 11:57 Benzonatate 100 Mg Capsule PO TID PRN Cough Ferrous Sulfate 142 mg 03/12/24 08:00 03/17/24 09:09 Ferrous Sulfate Dried 142 Mg Tabcr PO 142 mg BIDWM CARYL Administration Fluticasone/Umeclidinium/Vilanterol 1 puff 03/09/24 08:00 03/17/24 07:56 Fluticasone/Umeclidin/Vilanter 100-62.5-25 Mcg Ellipta INHALATION 1 puff DAILYRT CARYL Administration Furosemide 20 mg 03/13/24 09:00 03/17/24 09:08 Furosemide 20 Mg Tablet PO 20 mg BID CARYL Administration Guaifenesin 600 mg 03/08/24 21:00 03/17/24 09:08 Guaifenesin 12 Hr 600 Mg Tabcr PO 600 mg Q12HR CARYL Administration Levothyroxine Sodium 37.5 mcg 03/15/24 06:30 03/17/24 06:23 Levothyroxine Sodium 12.5 Mcg Tablet PO 37.5 mcg DAILY@0630 [facility] Administration Levothyroxine Sodium 150 mcg 03/15/24 06:30 03/17/24 06:23 Levothyroxine Sodium 150 Mcg Tablet PO 150 mcg DAILY@0630 [facility] Administration Ondansetron HCl 4 mg 03/07/24 20:36 Ondansetron Inj 4 Mg/2 Ml Vial IV PUSH Q4H PRN Nausea Polyethylene Glycol 17 gm 03/07/24 21:44 03/12/24 18:01 Polyethylene Glycol 3350 17 Gm Powd.Pack PO 17 gm QAM PRN Administration Constipation Ranolazine 500 mg 03/08/24 21:00 03/17/24 09:08 Ranolazine 500 Mg Tab.Er.12h PO 500 mg Q12HR CARYL Administration Simvastatin 20 mg 03/09/24 09:00 03/17/24 09:08 Simvastatin 20 Mg Tablet PO 20 mg DAILY CARYL Administration Sodium Chloride 2 gm 03/16/24 17:00 03/17/24 09:09 Sodium Chloride 1 Gm Tablet PO 2 gm BID CARYL Administration Sodium Chloride 500 mg 03/16/24 17:00 03/17/24 09:10 Sodium Chloride 500 Mg Tablet PO 500 mg BID CARYL Administration Radiology Results: ITS Impressions Head CT 03/07/24 19:52 Impression: No acute intracranial hemorrhage or suspicious mass effect. Modified Barium Swallow 03/10/24 11:34 IMPRESSION: 1. Aspiration. 2. Please refer to the speech therapy report for recommendations. Chest X-Ray 03/11/24 07:39 Impression: Minimal pleural effusions with possible asymmetric left-sided pulmonary edema versus pneumonia left lung. Underlying COPD. Labs Labs: Laboratory Results - last 24 hr 03/17/24 05:40 WBC 8.6 RBC 3.34 L Hgb 9.5 L Hct 29.8 L MCV 89.2 MCH 28.4 MCHC 31.9 L RDW 18.7 H Plt Count 183 MPV 9.2 Sodium 131 L Potassium 3.9 Chloride 93 L Carbon Dioxide 33 H Anion Gap 5 BUN 18 Creatinine 0.60 L Estim Creat Clear Calc 84 Estimated GFR > 60 Glucose 95 Calcium 8.3 L Total Bilirubin 0.6 AST 24 ALT 10 Alkaline Phosphatase 118 Total Protein 7.0 Albumin 3.4 L
--- NOTE | 2024-03-17 14:08 | P.PNIM_ITS ---
Progress Note: A&P Assessment and Plan (1) Acute hypoxic respiratory failure: Code(s): J96.01 - Acute respiratory failure with hypoxia Status: Acute Assessment and Plan: On admission was requiring supplemental oxygen by nasal cannula ABG: pH 7.440, pCO2 44.2, pO2 84.2, HCO3 29.3 Resolved. Back on baseline room air. (2) Altered mental status: Code(s): R41.82 - Altered mental status, unspecified Status: Acute Assessment and Plan: Head CT: No acute intracranial hemorrhage or suspicious mass effect. Likely of endocrine metabolic etiology Speech eval is completed- recommendations reviewed and ordered for diet Resolved. Remains AOx3 (person, place, year) (3) Hyponatremia: Code(s): E87.1 - Hypo-osmolality and hyponatremia Status: Acute Assessment and Plan: Chronic, baseline appears around 129-134 (at best) per nephrology - multiple risk factors * pneumonia * underlying lung disease (COPD) * pleural effusion * SSRI use (lexapro) * PPI use (nexium) * hypothyroidism (restarted treatment on this admission) - Received NS 2 L in emergency room with up trending of the sodium -Continue to monitor with serial BMP -Nephrology consulted- appreciate recommendations 03/14 sodium dropped to 122, recheck was 124 per Nephrology patient is to stay inpatient until his sodium is closer to 130. He remains on Lasix 20 mg b.i.d. and salt tab 2 g b.i.d. 03/15 sodium remains low at 122 a.m. on a.m. labs discussed patient again with Nephrology and will start him on a fluid restriction of 1500 mL a day 03/17 sodium sandeep to 131 on a.m. labs (4) Pneumonia: Code(s): J18.9 - Pneumonia, unspecified organism Status: Acute Assessment and Plan: CXR 03/07: Early left-sided infiltrate with a large left-sided pleural effusion. CXR 03/11: Minimal pleural effusions with possible asymmetric left-sided pulmonary edema versus pneumonia left lung. Underlying COPD. - Risk Factors: none - antibiotics: vancomycin cefepime and Zithromax but downgraded to cefepime and azithromycin, to be completed today 03/14 - Viral PCR: negative for Flu/COVID/RSV - MRSA negative - Blood cultures: Final - Negative - no supplemental O2 requirement - supportive treatment tyl and ibu prn nebs prn tesslon perles prn - trend labs - Monitor vital signs, I&Os, neuro status and patient is a fall risk - Follow WBC, serum electrolytes, temperature curves and cultures (5) Pleural effusion on left: Code(s): J90 - Pleural effusion, not elsewhere classified Status: Acute Assessment and Plan: Likely to be a parapneumonic effusion as patient with infiltrate Start on vancomycin Zithromax and cefepime due to recent admission as well patient living in rehabilitation center 03/08- mrsa swab neg- stop vanc- downgrade to PO zithromax-- continue cefepime iv antibiotics. Course completed during admission. - Continue to encourage cought/deep breathing - pt/ot- out of bed-ambulate with assistance - pt is high fall risk 03/17: Patient has coarse rhonchi on auscultation with a weak cough CXR 03/17: Airspace opacities in the mid and lower lung zones with improvement on the left, consistent with pneumonia. CPT ordered Mucinex increased to 1200 BID Prednisone 40 mg x5 days (6) Normocytic anemia: Code(s): D64.9 - Anemia, unspecified Status: Acute Assessment and Plan: Chronic, continue to monitor hgb dropped, repeated- 7. transfuse 1 unit of RPBC 03/13 iron studies done- will start on iron supplements -hg rechecked- stable this am (7) Hypothyroidism: Code(s): E03.9 - Hypothyroidism, unspecified Status: Acute Assessment and Plan: h/o thyroid ca, s/p chemo,radiation - levothyroxine 175 mcg on admission - tsh 60- repeated 58 with low t4 - will increase dose to 187.5 mcg- will need an outpt f/u with repeated TSH in 6-8 months (8) GERD (gastroesophageal reflux disease): Code(s): K21.9 - Gastro-esophageal reflux disease without esophagitis Status: Acute Assessment and Plan: PPI (9) COPD (chronic obstructive pulmonary disease): Code(s): J44.9 - Chronic obstructive pulmonary disease, unspecified Status: Acute Assessment and Plan: continue home meds not actively wheezing - encouraged IS if able to follow instructions out of bed for meals work with pt/ot (10) Protein calorie malnutrition: Code(s): E46 - Unspecified protein-calorie malnutrition Status: Acute Assessment and Plan: liberalize diet (11) Tobacco dependence: Code(s): F17.200 - Nicotine dependence, unspecified, uncomplicated Status: Acute Assessment and Plan: nicotine patch as needed Time Spent With Patient Time with patient: 25 - 35 minutes Subjective Date/time seen: 03/17/24 14:08 Interval history: Patient is pleasant lying comfortably bed. He endorses a poorly productive cough and some shortness of breath. Will increase his mucinex to help breakup secretions and start on prednisone for possible bronchitis. He has no other complaints denying chest pain, palpitations, nausea/vomiting, and abdominal pain. He had an increase in his sodium today to 131. will continue current hyponatremia treatment. Review of Systems Review of Systems: All systems reviewed & are unremarkable except as noted in HPI and below Exam Narrative: AF HR 71 RR 20 SpO2 94 BP 135/63 General: frail male in no acute respiratory distress who is chronically ill ap pearing, sitting up in his chair HEENT: Normocephalic. Atraumatic. Extraocular movement intact. Sclera clear and anicteric. Anisocoria (L>R) per patient this is chronic. No facial asymmetry. Chest: Lungs are coarse rhonchi on expiration to auscultation bilaterally. No wheezes or crackles. CV: Heart was regular rate and rhythm. S1/S2. No murmurs, gallops, or rubs. Abd: Abdomen was soft. Nontender. Nondistended. Positive bowel sounds. No organomegaly or masses. Ext: No clubbing, cyanosis, or edema. 2+ DP pulses bilaterally. Neuro: Patient is alert and oriented x3 (person, place, year). Cranial nerves 2- 12 are intact. Speech is clear. Objective Data Vital Signs Vital Signs: Vital Signs - 24 hr 03/16/24 14:12 03/16/24 16:00 03/16/24 16:00 Temperature 97.5 F L Pulse Rate 88 59 L 74 Respiratory Rate 20 16 Blood Pressure 98/54 L Pulse Oximetry 97 Oxygen Delivery Fraction of Inspired Oxygen 03/16/24 19:52 03/16/24 19:55 03/16/24 20:02 Temperature Pulse Rate 95 65 Respiratory Rate 20 18 Blood Pressure Pulse Oximetry 95 Oxygen Delivery Room Air Fraction of Inspired Oxygen 03/16/24 20:00 03/16/24 21:05 03/17/24 00:00 Temperature 97.5 F L Pulse Rate 65 69 71 Respiratory Rate 18 Blood Pressure 96/55 L Pulse Oximetry 97 Oxygen Delivery Fraction of Inspired Oxygen 03/17/24 02:58 03/17/24 03:06 03/17/24 04:00 Temperature Pulse Rate 68 67 66 Respiratory Rate 18 20 Blood Pressure Pulse Oximetry Oxygen Delivery Fraction of Inspired Oxygen 03/17/24 05:44 03/17/24 07:46 03/17/24 07:46 Temperature 97.8 F Pulse Rate 71 65 Respiratory Rate 20 20 Blood Pressure 135/63 Pulse Oximetry 94 96 Oxygen Delivery Room Air Fraction of Inspired Oxygen 21 03/17/24 07:56 03/17/24 08:25 03/17/24 13:43 Temperature Pulse Rate 68 Respiratory Rate 20 Blood Pressure Pulse Oximetry 93 Oxygen Delivery Room Air Room Air Fraction of Inspired Oxygen 21 03/17/24 13:43 03/17/24 13:50 Temperature Pulse Rate 62 60 Respiratory Rate 20 20 Blood Pressure Pulse Oximetry Oxygen Delivery Fraction of Inspired Oxygen Intake/Output Intake/Output: Intake & Output 03/14/24 03/15/24 03/16/24 03/17/24 23:59 23:59 23:59 23:59 Intake Total 1160 1160 580 600 Output Total 1700 450 400 300 Balance -540 710 180 300 Meds/Results Medications: Active Medications Generic Name Dose Route Start Last Admin Trade Name Freq PRN Reason Stop Dose Admin Acetaminophen 650 mg 03/08/24 11:58 03/17/24 09:11 Acetaminophen 325 Mg Tablet BY MOUTH 650 mg Q6H PRN Administration Pain Al Hydrox/Mg Hydrox/Simethicone 30 ml 03/07/24 21:44 Mag Hydrox/Al Hydrox/Simeth 30 Ml Udc PO Q6H PRN Indigestion Albuterol 2.5 mg 03/08/24 16:08 03/08/24 20:55 Albuterol Sulfate Neb 2.5 Mg/3 Ml Inh INHALATION 2.5 mg Q6HRT PRN Administration Shortness Of Breath Albuterol/Ipratropium 3 ml 03/08/24 20:30 03/17/24 13:43 Ipratropium 0.5 Mg/Albuterol Sulfate 2.5 Mg Ampul.Neb 3 Ml INHALATION 3 ml Q6HRT CARYL Administration Alprazolam 1 mg 03/08/24 15:44 03/09/24 20:28 Alprazolam (*Crx) 0.5 Mg Tablet PO 1 mg TID PRN Administration anxiety Baclofen 5 mg 03/08/24 15:44 Baclofen 5 Mg Tablet PO TID PRN muscle spasms Benzonatate 100 mg 03/08/24 11:57 Benzonatate 100 Mg Capsule PO TID PRN Cough Ferrous Sulfate 142 mg 03/12/24 08:00 03/17/24 09:09 Ferrous Sulfate Dried 142 Mg Tabcr PO 142 mg BIDWM CARYL Administration Fluticasone/Umeclidinium/Vilanterol 1 puff 03/09/24 08:00 03/17/24 07:56 Fluticasone/Umeclidin/Vilanter 100-62.5-25 Mcg Ellipta INHALATION 1 puff DAILYRT CARYL Administration Furosemide 20 mg 03/13/24 09:00 03/17/24 09:08 Furosemide 20 Mg Tablet PO 20 mg BID CARYL Administration Guaifenesin 1,200 mg 03/17/24 21:00 Guaifenesin 12 Hr 600 Mg Tabcr PO Q12HR CARYL Levothyroxine Sodium 37.5 mcg 03/15/24 06:30 03/17/24 06:23 Levothyroxine Sodium 12.5 Mcg Tablet PO 37.5 mcg DAILY@0630 CARYL Administration Levothyroxine Sodium 150 mcg 03/15/24 06:30 03/17/24 06:23 Levothyroxine Sodium 150 Mcg Tablet PO 150 mcg DAILY@0630 CARYL Administration Ondansetron HCl 4 mg 03/07/24 20:36 Ondansetron Inj 4 Mg/2 Ml Vial IV PUSH Q4H PRN Nausea Polyethylene Glycol 17 gm 03/07/24 21:44 03/12/24 18:01 Polyethylene Glycol 3350 17 Gm Powd.Pack PO 17 gm QAM PRN Administration Constipation Ranolazine 500 mg 03/08/24 21:00 03/17/24 09:08 Ranolazine 500 Mg Tab.Er.12h PO 500 mg Q12HR CARYL Administration Simvastatin 20 mg 03/09/24 09:00 03/17/24 09:08 Simvastatin 20 Mg Tablet PO 20 mg DAILY CARYL Administration Sodium Chloride 2 gm 03/16/24 17:00 03/17/24 09:09 Sodium Chloride 1 Gm Tablet PO 2 gm BID CARYL Administration Sodium Chloride 500 mg 03/16/24 17:00 03/17/24 09:10 Sodium Chloride 500 Mg Tablet PO 500 mg BID CARYL Administration Radiology Results: ITS Impressions Head CT 03/07/24 19:52 Impression: No acute intracranial hemorrhage or suspicious mass effect. Modified Barium Swallow 03/10/24 11:34 IMPRESSION: 1. Aspiration. 2. Please refer to the speech therapy report for recommendations. Chest X-Ray 03/17/24 13:48 IMPRESSION: 1. Airspace opacities in the mid and lower lung zones with improvement on the left, consistent with pneumonia. Labs Labs: Laboratory Results - last 24 hr 03/17/24 05:40 WBC 8.6 RBC 3.34 L Hgb 9.5 L Hct 29.8 L MCV 89.2 MCH 28.4 MCHC 31.9 L RDW 18.7 H Plt Count 183 MPV 9.2 Sodium 131 L Potassium 3.9 Chloride 93 L Carbon Dioxide 33 H Anion Gap 5 BUN 18 Creatinine 0.60 L Estim Creat Clear Calc 84 Estimated GFR > 60 Glucose 95 Calcium 8.3 L Total Bilirubin 0.6 AST 24 ALT 10 Alkaline Phosphatase 118 Total Protein 7.0 Albumin 3.4 L Quality VTE Prophylaxis VTE prophylaxis: mechanical ordered
[2024-03-17] MEDS: MIDODRINE HCL 2.5 MG TABLET 5 MG PO (15:44)
[2024-03-17] MEDS: predniSONE 20 MG TABLET 40 MG PO (15:44)
[2024-03-17] MEDS: guaiFENesin 12 HR 600 MG TABCR 1200 MG PO (21:35)
[2024-03-18] VITALS (13 sets, daily range): BP systolic 113–117; BP diastolic 65–70; PULSE 58–72; RESP 18–20; TEMP 36.4–36.5; O2SAT 91–97
[2024-03-18] MEDS: IPRATROPIUM 0.5 MG/ALBUTEROL SULFATE 2.5 MG AMPUL.NEB 3 ML INHALATION ×3 (02:08→13:36)
[2024-03-18 05:27] LABS: Mean Corpuscular HGB Conc 32.1 g/dl (32-36); Mean Corpuscular Hemoglobin 28.7 pg (26-34); Mean Corpuscular Volume 89.2 fl (80-100); Mean Platelet Volume 8.8 fl (7.4-10.4); Platelet Count Result 191 k/mm3 (150-375); Red Blood Count 3.14 M/mm3 (4.6-6.20); White Blood Count 6.8 K/mm3 (4.5-10.0)
[2024-03-18 05:32] LABS: Alanine Aminotransferase 8 U/L (6-50); Albumin Level 3.4 g/dL (3.5-5.1); Alkaline Phosphatase 115 U/L (38-126); Anion Gap 3 mmol/L (4-12); Aspartate Amino Transferase 21 U/L (17-59); Bilirubin,Total 0.5 mg/dL (0.2-1.3); Blood Urea Nitrogen 20 mg/dL (9-20); Calcium 8.7 mg/dL (8.4-10.2); Carbon Dioxide 31 mmol/L (22-30); Chloride 96 mmol/L (98-107); Estimated CRCL calculation 84 ml/min; Estimated Glomerular Filt Rate > 60; Glucose 114 mg/dL (65-110); Sodium 130 mmol/L (137-145)
[2024-03-18] MEDS: LEVOTHYROXINE SODIUM 12.5 MCG TABLET 37.5 MCG PO (06:02)
[2024-03-18] MEDS: LEVOTHYROXINE SODIUM 150 MCG TABLET PO (06:03)
[2024-03-18] MEDS: FLUTICASONE/UMECLIDIN/VILANTER 100-62.5-25 MCG ELLIPTA 1 PUFF INHALATION (07:43)
[2024-03-18] MEDS: SODIUM CHLORIDE 1 GM TABLET 2 GM PO ×2 (10:02→17:16)
[2024-03-18] MEDS: SIMVASTATIN 20 MG TABLET PO (10:02)
[2024-03-18] MEDS: RANOLAZINE 500 MG TAB.ER.12H PO (10:02)
[2024-03-18] MEDS: MIDODRINE HCL 2.5 MG TABLET 5 MG PO ×3 (10:02→17:16)
[2024-03-18] MEDS: guaiFENesin 12 HR 600 MG TABCR 1200 MG PO (10:02)
[2024-03-18] MEDS: FUROSEMIDE 20 MG TABLET PO ×2 (10:02→17:16)
[2024-03-18] MEDS: predniSONE 20 MG TABLET 40 MG PO (10:02)
[2024-03-18] MEDS: SODIUM CHLORIDE 500 MG TABLET PO ×2 (10:03→17:16)
[2024-03-18] MEDS: FERROUS SULFATE DRIED 142 MG TABCR PO ×2 (10:03→17:16)
--- NOTE | 2024-03-18 10:08 | P.PNNP_ITS ---
Progress Note: A&P Assessment and Plan (1) Hyponatremia: Code(s): E87.1 - Hypo-osmolality and hyponatremia Status: Chronic Assessment and Plan: * known chronic issue - a bit worse on admission * baseline sodium seems to run around 129 - 134 (at best) * multiple risk factors for hyponatremia: * pneumonia * underlying lung disease (COPD) * pleural effusion * SSRI use (lexapro) * PPI use (nexium) * hypothyroidism (restarted treatment on this admission) * evaluation noted currently and on previous hospitalization: * CXR results shows early left-sided infiltrate with a large left-sided pleural effusion * CT of head shows no intracranial hemorrhage or suspicious mass effect * urine electrolytes prerenal * TSH quite elevated - levothyroxine adjusted * cortisol okay * SPEP/UPEP in the past negative; repeat testing pending * currently on furosemide 20mg twice a day plus salt tablets 1g twice and on a fluid restriction. * Sodium level up to 131 yesterday and 130 today. (2) Pneumonia: Code(s): J18.9 - Pneumonia, unspecified organism Status: Acute Assessment and Plan: * as suggested by admission imaging * on cefepime and azithromycin * blood cultures negative to date * monitor respiratory status (3) Pleural effusion on left: Code(s): J90 - Pleural effusion, not elsewhere classified Status: Acute Assessment and Plan: * as noted by admission imaging * on antibiotics * diuretic therapy may help (4) Altered mental status: Code(s): R41.82 - Altered mental status, unspecified Status: Acute Assessment and Plan: * back to baseline (5) COPD (chronic obstructive pulmonary disease): Code(s): J44.9 - Chronic obstructive pulmonary disease, unspecified Status: Acute Assessment and Plan: * no evidence of exacerbation * continue home medications/inhalers Will continue to follow. Subjective Date/time seen: 03/18/24 10:08 Interval history: patient is awake. Breathing okay. Still some cough. Exam Narrative: General: WD thin male in NAD Heart: normal S1 and S2; no rub or gallop Lungs: coarse breath sounds; decreased on the left Abdomen: soft, nontender, nondistended, positive bowel sounds Extremities: trace edema, no cyanosis Or clubbing Skin: no rash Objective Data Vital Signs Vital Signs: Vital Signs - 24 hr 03/17/24 13:43 03/17/24 13:43 03/17/24 13:50 Temperature Pulse Rate 62 60 Respiratory Rate 20 20 Blood Pressure Pulse Oximetry 93 Oxygen Delivery Room Air Fraction of Inspired Oxygen 21 03/17/24 15:27 03/17/24 12:00 03/17/24 16:00 Temperature 97.4 F L Pulse Rate 64 64 64 Respiratory Rate 20 Blood Pressure 90/52 L Pulse Oximetry 95 Oxygen Delivery Fraction of Inspired Oxygen 03/17/24 16:00 03/17/24 20:16 03/17/24 20:25 Temperature 96.3 F L Pulse Rate 62 66 65 Respiratory Rate 20 20 20 Blood Pressure 95/54 L Pulse Oximetry 98 Oxygen Delivery Fraction of Inspired Oxygen 03/17/24 20:27 03/17/24 21:07 03/17/24 21:35 Temperature 98.3 F Pulse Rate 87 Respiratory Rate 18 Blood Pressure 113/68 Pulse Oximetry 96 96 96 Oxygen Delivery Room Air Room Air Fraction of Inspired Oxygen 21 03/17/24 21:35 03/18/24 00:04 03/18/24 02:10 Temperature Pulse Rate 65 64 64 Respiratory Rate 20 Blood Pressure Pulse Oximetry Oxygen Delivery Fraction of Inspired Oxygen 03/18/24 02:17 03/18/24 06:04 03/18/24 04:00 Temperature 97.7 F Pulse Rate 58 L 71 72 Respiratory Rate 20 18 Blood Pressure 117/70 Pulse Oximetry 97 Oxygen Delivery Fraction of Inspired Oxygen 03/18/24 07:33 03/18/24 07:33 03/18/24 07:43 Temperature Pulse Rate 66 63 Respiratory Rate 20 20 Blood Pressure Pulse Oximetry 91 Oxygen Delivery Room Air Fraction of Inspired Oxygen 21 Intake/Output Intake/Output: Intake & Output 03/15/24 03/16/24 03/17/24 03/18/24 23:59 23:59 23:59 23:59 Intake Total 1160 580 840 240 Output Total 450 400 800 300 Balance 710 180 40 -60 Meds/Results Medications: Active Medications Generic Name Dose Route Start Last Admin Trade Name Freq PRN Reason Stop Dose Admin Acetaminophen 650 mg 03/08/24 11:58 03/17/24 09:11 Acetaminophen 325 Mg Tablet BY MOUTH 650 mg Q6H PRN Administration Pain Al Hydrox/Mg Hydrox/Simethicone 30 ml 03/07/24 21:44 Mag Hydrox/Al Hydrox/Simeth 30 Ml Udc PO Q6H PRN Indigestion Albuterol 2.5 mg 03/08/24 16:08 03/08/24 20:55 Albuterol Sulfate Neb 2.5 Mg/3 Ml Inh INHALATION 2.5 mg Q6HRT PRN Administration Shortness Of Breath Albuterol/Ipratropium 3 ml 03/08/24 20:30 03/18/24 07:33 Ipratropium 0.5 Mg/Albuterol Sulfate 2.5 Mg Ampul.Neb 3 Ml INHALATION 3 ml Q6HRT CARYL Administration Alprazolam 1 mg 03/08/24 15:44 03/09/24 20:28 Alprazolam (*Crx) 0.5 Mg Tablet PO 1 mg TID PRN Administration anxiety Baclofen 5 mg 03/08/24 15:44 Baclofen 5 Mg Tablet PO TID PRN muscle spasms Benzonatate 100 mg 03/08/24 11:57 Benzonatate 100 Mg Capsule PO TID PRN Cough Ferrous Sulfate 142 mg 03/12/24 08:00 03/18/24 10:03 Ferrous Sulfate Dried 142 Mg Tabcr PO 142 mg BIDWM CARYL Administration Fluticasone/Umeclidinium/Vilanterol 1 puff 03/09/24 08:00 03/18/24 07:43 Fluticasone/Umeclidin/Vilanter 100-62.5-25 Mcg Ellipta INHALATION 1 puff DAILYRT CARYL Administration Furosemide 20 mg 03/13/24 09:00 03/18/24 10:02 Furosemide 20 Mg Tablet PO 20 mg BID CARYL Administration Guaifenesin 1,200 mg 03/17/24 21:00 03/18/24 10:02 Guaifenesin 12 Hr 600 Mg Tabcr PO 1,200 mg Q12HR CARYL Administration Levothyroxine Sodium 37.5 mcg 03/15/24 06:30 03/18/24 06:02 Levothyroxine Sodium 12.5 Mcg Tablet PO 37.5 mcg DAILY@0630 CARYL Administration Levothyroxine Sodium 150 mcg 03/15/24 06:30 03/18/24 06:03 Levothyroxine Sodium 150 Mcg Tablet PO 150 mcg DAILY@0630 CARYL Administration Midodrine 5 mg 03/17/24 17:00 03/18/24 10:02 Midodrine Hcl 2.5 Mg Tablet PO 5 mg TID CARYL Administration Ondansetron HCl 4 mg 03/07/24 20:36 Ondansetron Inj 4 Mg/2 Ml Vial IV PUSH Q4H PRN Nausea Polyethylene Glycol 17 gm 03/07/24 21:44 03/12/24 18:01 Polyethylene Glycol 3350 17 Gm Powd.Pack PO 17 gm QAM PRN Administration Constipation Prednisone 40 mg 03/17/24 14:15 03/18/24 10:02 Prednisone 20 Mg Tablet PO 03/21/24 09:00 40 mg DAILY@0800 CARYL Administration Ranolazine 500 mg 03/08/24 21:00 03/18/24 10:02 Ranolazine 500 Mg Tab.Er.12h PO 500 mg Q12HR CARYL Administration Simvastatin 20 mg 03/09/24 09:00 03/18/24 10:02 Simvastatin 20 Mg Tablet PO 20 mg DAILY CARYL Administration Sodium Chloride 2 gm 03/16/24 17:00 03/18/24 10:02 Sodium Chloride 1 Gm Tablet PO 2 gm BID CARYL Administration Sodium Chloride 500 mg 03/16/24 17:00 03/18/24 10:03 Sodium Chloride 500 Mg Tablet PO 500 mg BID CARYL Administration Radiology Results: ITS Impressions Head CT 03/07/24 19:52 Impression: No acute intracranial hemorrhage or suspicious mass effect. Modified Barium Swallow 03/10/24 11:34 IMPRESSION: 1. Aspiration. 2. Please refer to the speech therapy report for recommendations. Chest X-Ray 03/17/24 13:48 IMPRESSION: 1. Airspace opacities in the mid and lower lung zones with improvement on the left, consistent with pneumonia. Labs Labs: Laboratory Results - last 24 hr 03/18/24 04:44 WBC 6.8 RBC 3.14 L Hgb 9.0 L Hct 28.0 L MCV 89.2 MCH 28.7 MCHC 32.1 RDW 19.0 H Plt Count 191 MPV 8.8 Sodium 130 L Potassium 4.0 Chloride 96 L Carbon Dioxide 31 H Anion Gap 3 L BUN 20 Creatinine 0.60 L Estim Creat Clear Calc 84 Estimated GFR > 60 Glucose 114 H Calcium 8.7 Total Bilirubin 0.5 AST 21 ALT 8 Alkaline Phosphatase 115 Total Protein 7.0 Albumin 3.4 L
--- NOTE | 2024-03-18 12:16 | P.DS_ITS ---
DS: Admitting Diagnosis Discharge Date 03/18/2024 Admitting Diagnosis Acute hypoxic respiratory failure altered mental status hyponatremia pneumonia pleural effusion normocytic anemia hypothyroidism GERD COPD protein calorie malnutrition tobacco dependent DS: Discharge Diagnosis Discharge Diagnosis (1) Acute hypoxic respiratory failure: Code(s): J96.01 - Acute respiratory failure with hypoxia Status: Acute (2) Altered mental status: Code(s): R41.82 - Altered mental status, unspecified Status: Acute (3) Hyponatremia: Code(s): E87.1 - Hypo-osmolality and hyponatremia Status: Acute (4) Pneumonia: Code(s): J18.9 - Pneumonia, unspecified organism Status: Acute (5) Pleural effusion on left: Code(s): J90 - Pleural effusion, not elsewhere classified Status: Acute (6) Normocytic anemia: Code(s): D64.9 - Anemia, unspecified Status: Acute (7) Hypothyroidism: Code(s): E03.9 - Hypothyroidism, unspecified Status: Acute (8) GERD (gastroesophageal reflux disease): Code(s): K21.9 - Gastro-esophageal reflux disease without esophagitis Status: Acute (9) COPD (chronic obstructive pulmonary disease): Code(s): J44.9 - Chronic obstructive pulmonary disease, unspecified Status: Acute (10) Protein calorie malnutrition: Code(s): E46 - Unspecified protein-calorie malnutrition Status: Acute (11) Tobacco dependence: Code(s): F17.200 - Nicotine dependence, unspecified, uncomplicated Status: Acute DS: Summary Hospital Course Reason for hospitalization: Acute hypoxic respiratory failure altered mental status hyponatremia pneumonia pleural effusion normocytic anemia hypothyroidism GERD COPD protein calorie malnutrition tobacco dependent Hospital Course: 73 year old male with past medical history of COPD, CAD, hypothyroidism, HTN and other comorbidities presents to the hospital for abnormal labs. Per chart review, his facility was noted that the patient was more altered at well. Head CT showed no acute intracranial hemorrhage or suspicious mass effect. The altered mental status was likely of endocrine metabolic etiology. At time of discharge patient returned to baseline AOx3. Patient was hyponatremic. Nephrology was consulted. Patient started on lasix, salt tabs and fluid restriction. Sodium has returned to baseline. Pateint required a blood transfusion. Iron panel obtained and started on supplementation. H/H remains stable. On admission was requiring supplemental oxygen likely due to ongoing pneumonia as seen on imaging. Chest XR 03/07 showed early left-sided infiltrate with a large left-sided pleural effusion. He was started on antibiotics at that time. Repeat chest XR on 03/11 showed minimal pleural effusions with possible asymmetric left-sided pulmonary edema versus pneumonia left lung. Underlying COPD. On 03/17 patient had coarse rhonchi on exam. Repeat chest XR showed airspace opacities in the mid and lower lung zones with improvement on the left, consistent with pneumonia. He completed his antibiotic course during his admission and had his mucinex dose increased to help with congestion. He was also started on a short prednisone course. During admission patient returned to baseline room air. Patients TSH levels were checked and elevated with low T4. Synthroid dose increased. At time of discharge patient had no complaints, denying chest pain, shortness of breath, nausea/vomiting and abdominal pain. patient was discharged to SNF in a stable condition. He is to follow-up with nephrology as scheduled and his PCP in 1 week. Status at Discharge Functional status at discharge: uses cane/walker Time Spent with Patient Time attestation: Total time spent providing and/or coordinating discharge services: Time spent: Greater than 30 minutes Exam Narrative: AF HR 61 RR 20 SPO2 94 BP 117/70 General: frail male in no acute respiratory distress who is chronically ill appearing, sitting up in his chair HEENT: Normocephalic. Atraumatic. Extraocular movement intact. Sclera clear and anicteric. Anisocoria (L>R) per patient this is chronic. No facial asymmetry. Chest: Lungs diminished with improved rhonchi on expiration to auscultation bilaterally. No wheezes or crackles. CV: Heart was regular rate and rhythm. S1/S2. No murmurs, gallops, or rubs. Abd: Abdomen was soft. Nontender. Nondistended. Positive bowel sounds. No organomegaly or masses. Ext: No clubbing, cyanosis, or edema. 2+ DP pulses bilaterally. Neuro: Patient is alert and oriented x3 (person, place, year). Cranial nerves 2- 12 are intact. Speech is clear. DS: Data Data Completed and Pending Completed studies during hospitalization: chest x-ray chest x-ray MBS head CT chest x-ray Labs on day of discharge: Labs from last 24 hours 03/18/24 04:44 WBC 6.8 RBC 3.14 L Hgb 9.0 L Hct 28.0 L MCV 89.2 MCH 28.7 MCHC 32.1 RDW 19.0 H Plt Count 191 MPV 8.8 Sodium 130 L Potassium 4.0 Chloride 96 L Carbon Dioxide 31 H Anion Gap 3 L BUN 20 Creatinine 0.60 L Estim Creat Clear Calc 84 Estimated GFR > 60 Glucose 114 H Calcium 8.7 Total Bilirubin 0.5 AST 21 ALT 8 Alkaline Phosphatase 115 Total Protein 7.0 Albumin 3.4 L Discharge Plan Discharge Attending physician on discharge: Brigid Rodriguez Consulting providers: Oscar Mccarty; Markel Saucedo Discharging Clinician: Nathalia Waters Anticipated Discharge Date/Time: 03/18/24 11:56 Patient Disposition: SNF Activity: as tolerated Diet: as tolerated, regular and other - see discharge instructions Discharge Instructions: Discharge disposition: Patient was admitted to the hospital for abnormal labs and altered mental status Altered mental status was likely secondary to electrolyte imbalance and infection During his admission patient mental status returned to baseline During his admission he was found to have a low sodium level and Nephrology was consulted Patient was started on several new medications to control his sodium levels Lasix 20 mg p.o. twice a day, attached is information on this medication Salt tabs 2 g via p.o. twice, attached is information on this medication Placed on a fluid restriction of 1500 mL a day Patient is to follow up with Nephrology in the office, call for an appointment During admission patient was diagnosed with pneumonia He required oxygen supplementation for short period of time but has since returned to his baseline room air He was started on antibiotics and completed his course during his hospitalization Patient continues to have congestion, started on mucinex 1200 mg twice a day and prednisone 40 mg daily. Course to be completed on 03/21. Attached is information on these medications. Patient has chronic anemia An iron panel was obtained and showed low iron levels Patient was started on iron supplementation, attached is information on this new medication Patient had an elevated TSH and low T4 His levothyroxine dosage has been increased to 187.5 mcg daily He will require a repeat TSH in a few months, this is to be ordered by patient's PCP Patient was evaluated by speech therapy Continue patient on minced and moist with thickened liquids to prevent aspiration Take medications as prescribed Encouraged to continue with yearly vaccinations Return to the emergency department if he developed sudden shortness of breath, chest pain, nausea, vomiting, upset stomach or intractable diarrhea Return to the emergency department if you develop fever greater than 101.5 Follow-up with the primary care physician within 1 weeks Thank you for [facility] for your healthcare needs Patient Instructions: Iron Supplements (By mouth), Furosemide (By mouth), Levothyroxine (By mouth), Prednisone (By mouth), Guaifenesin/Phenylephrine (By mouth), Sodium Chloride (By mouth), Heart Failure (GEN), How to Stop Smoking (DC), Hyponatremia (DC), Iron Deficiency Anemia (GEN), Community Acquired Pneumonia (DC), Fluid Restriction (DC) Patient Language: Uzbek Stand Alone Forms: General Discharge Information Follow-up/Referrals: Markel Saucedo MD [Physician] - Call for Appointment PHYSICIAN NOT ON STAFF,NONSTAFF [Primary Care Provider] - 1 Week Discharge Medications: New levothyroxine [Synthroid] 150 mcg Tablet 150 mcg PO DAILY@0630 Qty: 30 0RF levothyroxine 37.5 mcg capsule 37.5 mcg PO DAILY Qty: 30 0RF furosemide 20 mg Tablet 20 mg PO BID Qty: 60 0RF ferrous sulfate [Slow Release Iron] 142 mg (45 mg iron) Tablet Extended Relea se 142 mg PO BIDWM Qty: 60 0RF prednisone 20 mg Tablet 40 mg PO DAILY@0800 Qty: 3 0RF midodrine 2.5 mg Tablet 5 mg PO TID Qty: 90 0RF Continued baclofen 10 mg tablet 5 mg PO TID PRN (Reason: muscle spasms) escitalopram oxalate 20 mg tablet 20 mg PO HS nitroglycerin 400 mcg/spray spray,non-aerosol 1 spray translingual Q5M PRN (Reason: Chest Pain) Rx Instructions: do not exceed 3 doses per episode simvastatin 20 mg tablet 20 mg PO DAILY ranolazine 500 mg tablet extended release 12 hr 500 mg PO Q12H Trelegy Ellipta 100-62.5-25 mcg blister with device 1 inh INHALATION DAILY Trelegy Ellipta 100-62.5-25 mcg blister with device 1 inh INHALATION DAILY Mucinex 600 mg PO BID Niferex 1 tablet PO BID acetaminophen 650 mg PO Q6H PRN (Reason: Pain) albuterol sulfate See Rx Instructions .ROUTE .COMPLEX PRN (Reason: Shortness Of Breath) Rx Instructions: 2.5 mg/ 3 mL solution for nebulization Q6hr PRN benzonatate 100 mg PO TID PRN (Reason: Cough) ipratropium-albuterol 1 vial inhalation TID omeprazole 40 mg PO BID potassium chloride 20 meq PO DAILY sodium chloride 1,000 mg PO TID alprazolam 1 mg tablet 1 mg PO TID PRN (Reason: anxiety) Qty: 90 0RF Discontinued levothyroxine 175 mcg tablet 175 mcg PO DAILY Date of admission: 03/08/24 08:03 Primary Care Provider: PHYSICIAN NOT ON STAFF,NONSTAFF Admitting Provider: Andrea High V. Attending physician on admission: Nathalia Waters Condition: Stable Hospitalist MIPS Heart Failure (Exclusion) Patient has history of Heart Transplant or Left Ventricular Assistive Device?: No IF YES, STOP HERE Heart Failure (Qualifier) Patient has current or prior documentation of LVEF less than or equal to 40%, or mod/servere depressed LVSF?: No IF NO, STOP HERE
--- NOTE | 2024-03-18 17:00 | PC.NURSE ---
Made patient's brother, Linwood Bergeron, aware of patient's plan to discharge to [facility] per pt request.
== END 2024-03-18 18:45 | DRG 640 ==
LOC: ANHED 20:24 → ANHIMU 20:57 → ANH2MED 03-12 17:20
PROVIDERS: Internal Medicine Nephrology; Nurse Practitioner; Admitting Provider Internal Medicine; Emergency Provider Student in an Organized Health Care Education/Training Program; Visit Provider Student in an Organized Health Care Education/Training Program
DX: E87.1 Hypo-osmolality and hyponatremia (principal); J18.9 Pneumonia, unspecified organism; J96.01 Acute respiratory failure with hypoxia; J90 Pleural effusion, not elsewhere classified; E46 Unspecified protein-calorie malnutrition; J44.0 Chronic obstructive pulmonary disease with (acute) lower respiratory infection; I12.9 Hypertensive chronic kidney disease with stage 1 through stage 4 chronic kidney disease, or unspecified chronic kidney disease; I25.10 Atherosclerotic heart disease of native coronary artery without angina pectoris; D64.9 Anemia, unspecified; E03.9 Hypothyroidism, unspecified; E78.00 Pure hypercholesterolemia, unspecified; K21.9 Gastro-esophageal reflux disease without esophagitis; G62.9 Polyneuropathy, unspecified; R29.6 Repeated falls; F17.210 Nicotine dependence, cigarettes, uncomplicated; F10.21 Alcohol dependence, in remission; Z85.118 Personal history of other malignant neoplasm of bronchus and lung; Z95.1 Presence of aortocoronary bypass graft; Z79.82 Long term (current) use of aspirin; Z85.850 Personal history of malignant neoplasm of thyroid; Z86.0101 Personal history of adenomatous and serrated colon polyps
CPT/HCPCS: 36415; 36430; 36600; 70450; 71045; 80048; 80053; 81001; 81050; 82533; 82565; 82570; 82805; 83540; 83550; 83735; 83880; 83930; 83935; 84100; 84155; 84156; 84165; 84166; 84295; 84300; 84439; 84443; 84540; 85014; 85018; 85025; 85027; 85610; 85730; 86850; 86900; 86901; 86923; 87040; 87086; 87449; 87641; 92526; 92610; 92611; 93005; 94640; 94668; 94669; 96361; 96365; 96367; 96375; 97110; 97162; 97166; 97530; 97535; 99285; A9270; G0378; J0456; J0692; J3370; J7030; J7050; J7512; P9016

== ENCOUNTER 2024-03-25 13:12 | Inpatient (IN) | payer MEDICARE, OTHER, SELFPAY ==
[2024-03-25] VITALS (33 sets, daily range): BP systolic 110–126; BP diastolic 57–77; PULSE 50–84; RESP 15–27; TEMP 36.4; O2SAT 83–100; BMI 18.6
--- NOTE | ~2024-03-25 | XR_ITS ---
EXAMINATION: XR abdomen/kub 1V DATE: 03/30/2024 12:49 INDICATION: Abdominal pain TECHNIQUE: A supine view of the abdomen and pelvis was obtained. COMPARISON: None. FINDINGS: Percutaneous gastrostomy tube bulb projects over the body the stomach. Surgical clip projects over th e gastric body in the left upper quadrant. There is some oral contrast material the left upper quadra nt likely at the fundus of the stomach. Cholecystectomy clips in the right upper quadrant. Large amou nt of stool in the proximal colon with small amount of stool and some gas in the more distal colon. N o dilated loops of gas-filled small bowel to suggest obstruction. Atherosclerotic calcific lesion patience ng the abdominal aorta and bilateral iliac arteries. IMPRESSION: 1. Large amount of colonic stool which could be seen with constipation. No bowel obstruction. Reviewed, dictated and finalized at location A. ICES MANAGER IMPRESSION: 1. Large amount of colonic stool which could be seen with constipation. No shirin l obstruction.
--- NOTE | ~2024-03-25 | XR_ITS ---
MODIFIED ESOPHAGRAM HISTORY: Dysphagia. TECHNIQUE: Modified barium esophagram was performed on 03/27/2024. I administered fluoroscopy and per formed the exam with speech pathologist. Patient was seated for lateral fluoroscopic imaging for ing estion of thin liquids, pudding, solids and quantified amounts, followed by thin liquids in uncontrol led amounts. This was recorded on tape. A single fluoroscopic spot image was also recorded. The DAP f or this procedure was 2.988 Gycm2. The amount of fluoroscopy time used during this procedure was 4.8 minutes. FINDINGS: Oral stage: There is premature spillage into the vallecula before the swallow.. Pharyngeal stage: There is and vallecular and piriform sinus residue. There were 2 episodes of laryng eal penetration with trace silent aspiration. Cervical/esophageal stage: There was esophageal/pharyngeal backflow.. IMPRESSION: Oropharyngeal dysphagia with 2 episodes of laryngeal penetration and trace silent aspirat ion. Please correlate with speech pathologist findings and specific feeding recommendations. Reviewed, dictated and finalized at location A. E SOFTWARE DEVELOPMENT ENGINEER IMPRESSION: Oropharyngeal dysphagia with 2 episodes of laryngeal penetration an d trace silent aspiration. Please correlate with speech pathologist findings a nd specific feeding recommendations.
--- NOTE | ~2024-03-25 | XR_ITS ---
EXAMINATION: XR chest 1V portable DATE: 03/25/2024 13:55 INDICATION: Shortness of breath on BiPAP TECHNIQUE: frontal view of the chest was obtained. COMPARISON: Chest radiograph dated 03/17/2024 FINDINGS: Skinfold projects along the lateral right lung. Again seen are diffuse coarse reticular and mild airs pace opacities in both lungs now also including the previously relatively spared right upper lung zon e. No pleural effusion or pneumothorax. Heart size is normal. Median sternotomy wires and mediastinal surgical clips are seen, likely from prior coronary artery bypass grafting. Cholecystectomy clips in right upper quadrant. Reverse right total shoulder arthroplasty. IMPRESSION: 1. Persistent diffuse reticular and mild airspace opacities throughout both lungs consistent with mul tifocal pneumonia which appears to progressed in the right upper lung zone. Reviewed, dictated and finalized at location A. RUNNER IMPRESSION: 1. Persistent diffuse reticular and mild airspace opacities throughout both nory gs consistent with multifocal pneumonia which appears to progressed in the righ t upper lung zone.
--- NOTE | 2024-03-25 13:22 | ECG_ITS ---
Test Date: 2024-03-25 13:19:33 Measurements Intervals Tok Rate: 83 P: 71 DC: 170 QRS: 41 QRSD: 94 T: 19 QT: 336 QTc: 395 Interpretive Statements SINUS RHYTHM NONSPECIFIC ST-T WAVE ABNORMALITY- DIFFUSE LEADS BASELINE ARTIFACT- II, III, AVR, AVL, AVF, V3-V6 BORDERLINE ECG Compared to ECG 03/07/2024 16:01:55 NO SIGNIFICANT CHANGE Electronically Signed On 03-25-2024 18:46:05 [employer] by Shady Reyes D.O.
[2024-03-25 13:28] LABS: Alveolar/Arterial O2 Gradient 387.4 mmHg; Base Excess ABG 7.8 mEq/l (+/-2.0); Carboxyhemoglobin 1.2 % THb (0-2.0); Fractional Inspired Oxygen 75 %; HCO3 ABG 36.2 mEq/l (22.0-26.0); Methemoglobin ABG 0.1 %THb (0-1.5); Oxygen Content ABG 14.3 %vol (16.0-22.0); Oxygen Saturation ABG 91.1 % (95.0-100.0); PO2 ABG 68.4 mmHg (80.0-100.0); PO2 FiO2 Ratio Arterial Blood 0.91 %; Reduced Hemoglobin 7.7 %THb (0-5.0); Total Hemoglobin 11.1 g/dL (12.0-18.0); pH ABG 7.306 (7.350-7.450)
[2024-03-25 13:31] LABS: Device OTHER DEVICE; Modified Allen's Test Pass; PCO2 ABG 74.3 mmHg (35.0-45.0); Site Drawn LEFT RADIAL
[2024-03-25 13:49] LABS: Basophils Absolute Auto 0.1 K/mm3 (0.0-0.1); Basophils Percent Auto 0.6 % (0.2-1.2); Eosinophils Absolute Auto 0.2 K/mm3 (0-0.3); Eosinophils Percent Auto 1.9 % (0-4.4); Hematocrit 32.7 % (42.0-52.0); Immature Granulocyte Absolute 0.06 K/mm3 (0.00-0.031); Immature Granulocyte Percent A 0.7 % (0-0.5); Lymphocytes Percent Auto 11.8 % (18.3-44.2); Mean Corpuscular HGB Conc 30.6 g/dl (32-36); Mean Corpuscular Hemoglobin 28.6 pg (26-34); Mean Corpuscular Volume 93.4 fl (80-100); Mean Platelet Volume 9.1 fl (7.4-10.4); Monocytes Absolute Auto 0.8 K/mm3 (0.1-0.6); Monocytes Percent Auto 9.8 % (2.6-8.5); Neutrophils Absolute Auto 6.3 K/mm3 (1.3-6.7); Neutrophils Percent Auto 75.2 % (45.5-73.1); Platelet Count Result 304 k/mm3 (150-375); Red Cell Distribution Width 19.1 % (11.5-14.5); White Blood Count 8.4 K/mm3 (4.5-10.0)
[2024-03-25 13:58] LABS: Alanine Aminotransferase 42 U/L (6-50); Albumin Level 3.7 g/dL (3.5-5.1); Alkaline Phosphatase 131 U/L (38-126); Anion Gap 4 mmol/L (4-12); Aspartate Amino Transferase 63 U/L (17-59); Bilirubin,Total 0.9 mg/dL (0.2-1.3); Blood Urea Nitrogen 12 mg/dL (9-20); Calcium 8.6 mg/dL (8.4-10.2); Carbon Dioxide 38 mmol/L (22-30); Chloride 95 mmol/L (98-107); Estimated CRCL calculation 101 ml/min; Estimated Glomerular Filt Rate > 60; Glucose 116 mg/dL (65-110); Sodium 137 mmol/L (137-145)
--- NOTE | 2024-03-25 14:25 | P.HP_ITS ---
H&P: HPI History of Present Illness Date/Time: 03/25/24 14:25 Chief Complaint: Hypoxia. Narrative: This is a 73-year-old male with history of tobacco abuse, chronic obstructive pulmonary disease, coronary artery disease status post 4 vessel bypass, thyroid cancer now with hypothyroidism, iron deficiency anemia, and gastroesophageal reflux disease presented to the emergency room via EMS from [facility] for evalu ation of hypoxia. The patient is able to provide some history however he is on BiPAP and is a bit somnolent thus some of the following is obtained via a review of his electronic medical records. He was in the hospital earlier this month with pneumonia and was discharged a little over a week ago for rehab. Swallow study showed evidence of aspiration for which he participated in speech therapy and was discharged on a minced and moist diet with thickened liquids. It is my understanding that he has been doing okay at the rehab facility. Today he was reportedly found confused and hypoxic with an SpO2 in the 40s. He was placed on 10 L nasal cannula and EMS was summoned. No other information was provided by the transferring facility. The patient really does not remember what happened today. At the time my evaluation he is on BiPAP and is somnolent but easily arousable. He denies headache, fever, chest pain, pleuritic pain, abdominal pain, nausea, vomiting, diarrhea, dysuria, lower extremity edema, and calf pain. He does have issues with dysphagia as mentioned above but he does not recall aspirating. In the ED: SpO2 was 83% on 10 L on arrival and was placed on BiPAP right away. He has been afebrile and blood pressures are stable. Labs are significant for a WBC count of 8.4, hemoglobin 10.0, carbon dioxide 38, BUN 12, creatinine 0.50, procalcitonin 0.1. ABG showed a pH of 7.306, pCO2 74.3, PO2 68.4, HC03 36.2. Chest x-ray showed persistent diffuse reticular and mild airspace opacities throughout both lungs consistent with multifocal pneumonia which appears to have progressed in the right upper lung zone. Review of Systems Review of Systems: 12 systems were reviewed and are negativ e except for as per HPI. REPLACED BY [facility] Past Medical History Medical History Adenomatous colon polyp Basal cell carcinoma Chronic obstructive pulmonary disease Coronary artery disease F[place] falls Gastroesophageal reflux disease High cholesterol Hypertension Hyponatremia Hypothyroidism Lung cancer status post right upper lobe pneumonectomy Lymphocytic esophagitis Nonerosive esophageal reflux disease Peripheral neuropathy Rhabdomyolysis Thyroid cancer Surgical History Surgical History History of bilateral carpal tunnel release History of bilateral inguinal hernia repair History of cataract extraction with lens replacement (2015) History of cholecystectomy History of colonoscopy History of coronary angioplasty History of esophageal dilatation History of esophagogastroduodenoscopy (EGD) (2006) History of four vessel coronary artery bypass graft (09/2002) History of hemorrhoidectomy History of medial meniscus repair of right knee (2005) History of open reduction and internal fixation (ORIF) procedure (06/2022) repair right proximal humerus fracture History of pneumonectomy (2014) right upper lobe due to lung cancer History of ventral hernia repair (06/2006) gastric volvulus with ventral hernia repair Family History Family History Mother MVA (motor vehicle accident) Father Gunshot wound Sibling Heart disease Other Family history of cardiovascular disease Social History Social History (Updated 03/25/24 @ 18:36 by Ana Sanabria PA-C) Social History: Surrogate medical decision maker: Linwood Rubio ([phone]), brother. Code status: Full code. Smoking packs per day: 1 Smoking cigarettes per day: 20.0 Years smoked: 50 Smoking pack-years: 50.00 Smoking status: Current every day smoker Second hand tobacco smoke exposure: Yes Additional smoking assessment comments: has cut down to 4-6 cigarettes a day Alcohol intake: former Alcohol use details: no alcohol since August 31, 1984 Substance use: never Do You Feel Safe in your Home?: Yes Lack of Transportation: No Lack of Food: Never True Current Housing: I Have Housing Concerned About Future Housing: No Difficulty Paying Gas/Electric Bills: No Difficulty Paying for Meds: No Currently Unemployed: No Education: Decline to Answer Difficulty w/ Childcare or Family Care: No Additional living arrangements comments: Lives alone. with 2 children. Currently at [facility]. 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 Spiritual care concerns: No Meds Home Medications and Allergies Home Medications Medication Instructions Recorded Confirmed Type baclofen 10 mg tablet 5 mg PO TID PRN muscle spasms 07/21/20 03/08/24 History escitalopram oxalate 20 mg tablet 20 mg PO HS 07/21/20 03/08/24 History nitroglycerin 400 mcg/spray 1 spray translingual Q5M PRN Chest 07/21/20 03/08/24 History translingual Pain simvastatin 20 mg tablet 20 mg PO DAILY 07/21/20 03/08/24 History ranolazine 500 mg tablet,extended 500 mg PO Q12H 03/22/21 03/08/24 History release,12 hr alprazolam 1 mg tablet 1 mg PO TID PRN anxiety #90 tabs 02/01/23 03/08/24 Rx Mucinex 600 mg PO BID 03/08/24 03/08/24 History Niferex 1 tablet PO BID 03/08/24 03/08/24 History acetaminophen 650 mg PO Q6H PRN Pain 03/08/24 03/08/24 History albuterol sulfate See Rx Instructions .Route 03/08/24 03/08/24 History .COMPLEX PRN Shortness Of Breath benzonatate 100 mg PO TID PRN Cough 03/08/24 03/08/24 History fluticasone fur. 100 mcg-umeclid 1 inh inhalation DAILY 03/08/24 03/08/24 History 62.5 mcg-vilant 25 mcg inhalat.powder (Trelegy Ellipta) fluticasone fur. 100 mcg-umeclid 1 inh inhalation DAILY 03/08/24 03/08/24 History 62.5 mcg-vilant 25 mcg inhalat.powder (Trelegy Ellipta) ipratropium-albuterol 1 vial inhalation TID 03/08/24 03/08/24 History omeprazole 40 mg PO BID 03/08/24 03/08/24 History potassium chloride 20 meq PO DAILY 03/08/24 03/08/24 History sodium chloride 1,000 mg PO TID 03/08/24 03/08/24 History ferrous sulfate 142 mg (45 mg 142 mg PO BIDWM #60 tabs 03/18/24 Rx iron) tablet,extended release (Slow Release Iron) furosemide 20 mg tablet 20 mg PO BID #60 tabs 11/17/24 Rx levothyroxine 150 mcg tablet 150 mcg PO DAILY@0630 #30 tabs 03/18/24 Rx (Synthroid) levothyroxine 37.5 mcg capsule 37.5 mcg PO DAILY #30 caps 03/18/24 Rx midodrine 2.5 mg tablet 5 mg PO TID #90 tabs 03/18/24 Rx prednisone 20 mg tablet 40 mg PO DAILY@0800 #3 tabs 03/18/24 Rx Allergies Allergy/AdvReac Type Severity Reaction Status Date / Time atorvastatin AdvReac Mild MADE ME Verified 02/21/24 10:52 SICK methocarbamol AdvReac Mild MADE ME Verified 02/21/24 10:52 SICK terbinafine AdvReac Mild MADE ME Verified 02/21/24 10:52 SICK Vital Signs Vital Signs - 24 hr 03/25/24 13:14 03/25/24 13:18 Temperature 97.5 F L Pulse Rate 84 83 Respiratory Rate 20 27 H Blood Pressure 110/75 Pulse Oximetry 92 93 Oxygen Delivery BiPAP BiPAP Exam Narrative: General: Somnolent but easily arousable. Thin, frail, ill-appearing male in the semi-Raymond position in bed on BiPAP. Weight: 63.4 kg. BMI: 19.5. HEENT: Normocephalic, atraumatic. PERRL, EOMI. Sclera anicteric. Oral mucosa appears tacky through the BiPAP. Neck: Supple. No obvious JVD. Respiratory: Tolerating BiPAP. Lung sounds coarse with scattered rhonchi and are equally transmitted anteriorly and at flanks. Cardiovascular: Regular rate and rhythm with S1-S2. Gastrointestinal: Abdomen is soft, nontender, and nondistended with positive bowel sounds. Skin: Warm and dry. Generalized pallor. Legs are dry and scaly. Extremities: No cyanosis, clubbing, or edema. Radial and pedal pulses intact. No palpable knots or cords. Neurological: Alert and oriented. Cranial nerves 2-12 are grossly intact. No gross focal deficits to casual conversation. Psychiatric: He is pleasant and cooperative with appropriate mood. H&P: Results Labs Labs: Short CBC 03/25/24 Range/Units 13:44 WBC 8.4 (4.5-10.0) K/mm3 Hgb 10.0 L (14.0-18.0) g/dL Hct 32.7 L (42.0-52.0) % Plt Count 304 D (150-375) k/mm3 BMP 03/25/24 13:44 Sodium 137 Potassium 4.0 Chloride 95 L Carbon Dioxide 38 H BUN 12 D Creatinine 0.50 L Glucose 116 H Calcium 8.6 Liver Function 03/25/24 Range/Units 13:44 Total Bilirubin 0.9 (0.2-1.3) mg/dL AST 63 H (17-59) U/L ALT 42 (6-50) U/L Alkaline Phosphatase 131 H (38-126) U/L Albumin 3.7 (3.5-5.1) g/dL Imaging Chest X-Ray 03/25/24 14:02 IMPRESSION: 1. Persistent diffuse reticular and mild airspace opacities throughout both lungs consistent with multifocal pneumonia which appears to progressed in the right upper lung zone. ABG ABG results: 03/25/24 13:24 Puncture Site Left radial ABG pH 7.306 L ABG pCO2 74.3 H* ABG pO2 68.4 L ABG PO2/FiO2 Ratio 0.91 ABG HCO3 36.2 H ABG O2 Saturation 91.1 L ABG O2 Content 14.3 L ABG Base Excess 7.8 A-a Gradient 387.4 Oxyhemoglobin 91.0 Carboxyhemoglobin 1.2 Reduced Hemoglobin 7.7 H Total Hemoglobin 11.1 L O2 Delivery Device Other device O2 Liters/Min 15.0 FiO2 75 Assessment and Plan Assessment and plan (1) Acute respiratory failure with hypoxia and hypercapnia: Code(s): J96.01 - Acute respiratory failure with hypoxia; J96.02 - Acute respiratory failure with hypercapnia Status: Acute (2) Multifocal pneumonia: Code(s): J18.9 - Pneumonia, unspecified organism Status: Acute (3) Dysphagia: Code(s): R13.10 - Dysphagia, unspecified Status: Acute (4) Chronic obstructive pulmonary disease: Code(s): J44.9 - Chronic obstructive pulmonary disease, unspecified Status: Acute (5) Hypothyroidism: Code(s): E03.9 - Hypothyroidism, unspecified Status: Acute Plan The patient presented to the emergency department for evaluation after he was found to be lethargic and hypoxic as detailed in HPI. Labs, imaging, EKG, and all reports were personally reviewed. He was hypoxic and hypercarbic and was started on BiPAP upon arrival to the ED. Repeat ABG has improved significantly a nd he will remain on BiPAP this evening. It is not clear why he decompensated. A chest x-ray continues to show multifocal pneumonia, worse in the upper lung zones. Aspiration is a consideration and he has been started on Unasyn and vancomycin pending MRSA screen (he completed a course of cefepime and azithromycin during his recent hospitalization). Chest CT may be prudent to further characterize but will hold on that for now while he is on BiPAP. Respiratory panel is pending. Sputum culture ordered. Check Legionella and pneumococcal antigens as well as mycoplasma IgM. Continue scheduled updrafts. Consider steroids depending on his clinical course. There is no significant wheezing on exam to suggest COPD exacerbation. Pulmonary embolism is considered however his presentation makes that less likely. Anemia and renal function are stable on review of previous labs. His home medications will be reviewed and resumed as appropriate. Findings and treatment plan were discussed with the patient. Questions were solicited and answered to satisfaction. The patient's medical management will be taken over by the hospitalist team in a.m. Quality VTE Prophylaxis VTE prophylaxis: pharmacologic ordered Hospitalist [facility] Advance Care Plan I have confirmed that the patient's Advanced Care Plan is present, code status is documented, or surrogate decision maker is listed in patient medical record.: Yes Medication Reconciliation I have utilized all available resources to obtain, update and review the patients current medications (includes all prescriptions, OTC, herbals, cannabis, and nutritional supplements).: Yes
[2024-03-25 15:17] LABS: Alveolar/Arterial O2 Gradient 232.4 mmHg; Base Excess ABG 9.1 mEq/l (+/-2.0); Fractional Inspired Oxygen 75 %; Oxygen Content ABG 15.6 %vol (16.0-22.0); Oxygen Saturation ABG 99.5 % (95.0-100.0); Oxyhemoglobin 98.7 % THb (90.0-100.0); PO2 ABG 236.4 mmHg (80.0-100.0); PO2 FiO2 Ratio Arterial Blood 3.15 %; Total Hemoglobin 10.8 g/dL (12.0-18.0); pH ABG 7.381 (7.350-7.450)
[2024-03-25 15:18] LABS: Device NON-INVASIVE VENT; Modified Allen's Test Pass; Non-Invasive Expiratory Pressure 6 CMH2O; Non-Invasive Inspiratory Pressure 14 CMH2O; Non-Invasive Vent Rate 18 /MIN; PCO2 ABG 62.1 mmHg (35.0-45.0); Site Drawn RIGHT RADIAL
--- NOTE | 2024-03-25 15:19 | PC.NURSE ---
More alert. Resp unlabored. Skin w/d.
--- NOTE | 2024-03-25 15:45 | ED.SOB ---
HPI - SOB/Dyspnea General Chief Complaint: Shortness of Breath/Dyspnea Stated Complaint: resp distress Time Seen by Provider: 03/25/24 13:32 Source: EMS Mode of arrival: EMS Limitations: altered mental status History of Present Illness HPI Narrative: 73-year-old with a history of COPD, CAD, GERD hypertension was provided for my nurse and complaints of altered mental status patient was found to be semi responsive at the custodial He was placed on C pap brought into ER . Known history of: COPD Related Data Home oxygen amount: none Home Medications Medication Instructions Recorded Confirmed baclofen 10 mg tablet 5 mg PO TID PRN muscle spasms 07/21/20 03/08/24 escitalopram oxalate 20 mg tablet 20 mg PO HS 07/21/20 03/08/24 nitroglycerin 400 mcg/spray 1 spray translingual Q5M PRN Chest 07/21/20 03/08/24 translingual Pain simvastatin 20 mg tablet 20 mg PO DAILY 07/21/20 03/08/24 ranolazine 500 mg tablet,extended 500 mg PO Q12H 03/22/21 03/08/24 release,12 hr Mucinex 600 mg PO BID 03/08/24 03/08/24 Niferex 1 tablet PO BID 03/08/24 03/08/24 acetaminophen 650 mg PO Q6H PRN Pain 03/08/24 03/08/24 albuterol sulfate See Rx Instructions .Route 03/08/24 03/08/24 .COMPLEX PRN Shortness Of Breath benzonatate 100 mg PO TID PRN Cough 03/08/24 03/08/24 fluticasone fur. 100 mcg-umeclid 1 inh inhalation DAILY 03/08/24 03/08/24 62.5 mcg-vilant 25 mcg inhalat.powder (Trelegy Ellipta) fluticasone fur. 100 mcg-umeclid 1 inh inhalation DAILY 03/08/24 03/08/24 62.5 mcg-vilant 25 mcg inhalat.powder (Trelegy Ellipta) ipratropium-albuterol 1 vial inhalation TID 03/08/24 03/08/24 omeprazole 40 mg PO BID 03/08/24 03/08/24 potassium chloride 20 meq PO DAILY 03/08/24 03/08/24 sodium chloride 1,000 mg PO TID 03/08/24 03/08/24 Allergies Allergy/AdvReac Type Severity Reaction Status Date / Time atorvastatin AdvReac Mild MADE ME Verified 02/21/24 10:52 SICK methocarbamol AdvReac Mild MADE ME Verified 02/21/24 10:52 SICK terbinafine AdvReac Mild MADE ME Verified 02/21/24 10:52 SICK Review of Systems Review of Systems: ROS unobtainable: Yes unobtainable due to mental status PMFSH Past Medical History Medical History Adenomatous colon polyp Basal cell carcinoma Chronic obstructive pulmonary disease Coronary artery disease [place] Gastroesophageal reflux disease High cholesterol Hypertension Hyponatremia Hypothyroidism Lung cancer status post right upper lobe pneumonectomy Lymphocytic esophagitis Nonerosive esophageal reflux disease Peripheral neuropathy Rhabdomyolysis Thyroid cancer Surgical History Surgical History History of bilateral carpal tunnel release History of bilateral inguinal hernia repair History of cataract extraction with lens replacement (2015) History of cholecystectomy History of colonoscopy History of coronary angioplasty History of esophageal dilatation History of esophagogastroduodenoscopy (EGD) (2006) History of four vessel coronary artery bypass graft (09/2002) History of hemorrhoidectomy History of medial meniscus repair of right knee (2005) History of open reduction and internal fixation (ORIF) procedure (06/2022) repair right proximal humerus fracture History of pneumonectomy (2014) right upper lobe due to lung cancer History of ventral hernia repair (06/2006) gastric volvulus with ventral hernia repair Family History Family History Mother MVA (motor vehicle accident) Father Gunshot wound Sibling Heart disease Other Family history of cardiovascular disease Social History Social History Social History: He lives alone. He has smoked as much as a pack of cigarettes per day since he was 20 years old. He is now down to 4-5 cigarettes a day. 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 code status full code; POLST is with [place] documentation and signed by 02/02/23 but not dated by patient's brother (although signed by him) Years smoked: 50 Smoking status: Current every day smoker Second hand tobacco smoke exposure: Yes Alcohol intake: former Alcohol use details: no alcohol since August 31, 1984 Substance use: never Do You Feel Safe in your Home?: Yes Lack of Transportation: No Lack of Food: Never True Current Housing: I Have Housing Concerned About Future Housing: No Difficulty Paying Gas/Electric Bills: No Difficulty Paying for Meds: No Currently Unemployed: No Education: Decline to Answer Difficulty w/ Childcare or Family Care: No Living arrangements: alone Additional living arrangements comments: [place] 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 After our and have treatment he is little more alert. X-ray shows multifocal pneumonia was started on Unasyn as per the hospitalist request. Admit to the hospitalist. Vital Signs Vital signs: Vital Signs Temperature 36.4 C L 03/25/24 13:14 Pulse Rate 84 03/25/24 13:14 Respiratory Rate 20 03/25/24 13:14 Blood Pressure 110/75 03/25/24 13:14 Pulse Oximetry 92 03/25/24 13:14 Oxygen Delivery BiPAP 03/25/24 13:14 Temperature 36.4 C L 03/25/24 13:14 Pulse Rate 72 03/25/24 14:16 Respiratory Rate 19 03/25/24 14:16 Blood Pressure 123/77 03/25/24 14:16 Pulse Oximetry 100 03/25/24 14:23 Oxygen Delivery BiPAP 03/25/24 14:23 MDM - SOB/Dyspnea Differential Diagnosis Differential diagnosis: Likely acute exacerbation of chronic obstructive airways disease, congestive heart failure and community acquired pneumonia Medical Records Attestation: I reviewed the patient's medical records. Lab Data Attestation: I reviewed the patient's lab results. 03/25/24 13:44 03/25/24 13:44 Labs: Lab Results 03/25/24 03/25/24 03/25/24 Range/Units 13:24 13:41 13:44 WBC 8.4 (4.5-10.0) K/mm3 RBC 3.50 L (4.6-6.20) M/mm3 Hgb 10.0 L (14.0-18.0) g/dL Hct 32.7 L (42.0-52.0) % MCV 93.4 (80-100) fl MCH 28.6 (26-34) pg MCHC 30.6 L (32-36) g/dl RDW 19.1 H (11.5-14.5) % Plt Count 304 D (150-375) k/mm3 MPV 9.1 (7.4-10.4) fl Immature Gran % (Auto) 0.7 H (0-0.5) % Neut % (Auto) 75.2 H (45.5-73.1) % Lymph % (Auto) 11.8 L (18.3-44.2) % [place] % (Auto) 9.8 H (2.6-8.5) % Eos % (Auto) 1.9 (0-4.4) % Baso % (Auto) 0.6 (0.2-1.2) % Lymph # (Auto) 1.00 (0.9-3.2) K/mm3 [place] # (Auto) 0.8 H (0.1-0.6) K/mm3 Eos # (Auto) 0.2 (0-0.3) K/mm3 Baso # (Auto) 0.1 (0.0-0.1) K/mm3 Abs Immat Gran (auto) 0.06 H (0.00-0.031) K/mm3 Absolute Neuts (auto) 6.3 (1.3-6.7) K/mm3 Absolute Nucleated RBC 0.000 (0.0-0.012) K/mm3 Nucleated RBC % 0.0 (0.0-0.2) % Methemoglobin 0.1 (0-1.5) %THb Expiratory Pressure CMH2O Inspiratory Pressure CMH2O Sodium 137 (137-145) mmol/L Potassium 4.0 (3.4-5.0) mmol/L Chloride 95 L (98-107) mmol/L Carbon Dioxide 38 H (22-30) mmol/L Anion Gap 4 (4-12) mmol/L BUN 12 D (9-20) mg/dL Creatinine 0.50 L (0.7-1.3) mg/dL Estim Creat Clear Calc 101 ml/min Estimated GFR > 60 (59 - ) Glucose 116 H (65-110) mg/dL Calcium 8.6 (8.4-10.2) mg/dL Total Bilirubin 0.9 (0.2-1.3) mg/dL AST 63 H (17-59) U/L ALT 42 (6-50) U/L Alkaline Phosphatase 131 H (38-126) U/L Total Protein 7.0 (6.3-8.2) g/dL Albumin 3.7 (3.5-5.1) g/dL Procalcitonin Pending 03/25/24 Range/Units 15:09 WBC (4.5-10.0) K/mm3 RBC (4.6-6.20) M/mm3 Hgb (14.0-18.0) g/dL Hct (42.0-52.0) % MCV (80-100) fl MCH (26-34) pg MCHC (32-36) g/dl RDW (11.5-14.5) % Plt Count (150-375) k/mm3 MPV (7.4-10.4) fl Immature Gran % (Auto) (0-0.5) % Neut % (Auto) (45.5-73.1) % Lymph % (Auto) (18.3-44.2) % [place] % (Auto) (2.6-8.5) % Eos % (Auto) (0-4.4) % Baso % (Auto) (0.2-1.2) % Lymph # (Auto) (0.9-3.2) K/mm3 [place] # (Auto) (0.1-0.6) K/mm3 Eos # (Auto) (0-0.3) K/mm3 Baso # (Auto) (0.0-0.1) K/mm3 Abs Immat Gran (auto) (0.00-0.031) K/mm3 Absolute Neuts (auto) (1.3-6.7) K/mm3 Absolute Nucleated RBC (0.0-0.012) K/mm3 Nucleated RBC % (0.0-0.2) % Methemoglobin (0-1.5) %THb Expiratory Pressure 6 CMH2O Inspiratory Pressure 14 CMH2O Sodium (137-145) mmol/L Potassium (3.4-5.0) mmol/L Chloride (98-107) mmol/L Carbon Dioxide (22-30) mmol/L Anion Gap (4-12) mmol/L BUN (9-20) mg/dL Creatinine (0.7-1.3) mg/dL Estim Creat Clear Calc ml/min Estimated GFR (59 - ) Glucose (65-110) mg/dL Calcium (8.4-10.2) mg/dL Total Bilirubin (0.2-1.3) mg/dL AST (17-59) U/L ALT (6-50) U/L Alkaline Phosphatase (38-126) U/L Total Protein (6.3-8.2) g/dL Albumin (3.5-5.1) g/dL Procalcitonin ABG Data ABG results: 03/25/24 03/25/24 13:24 15:09 Puncture Site Left radial Right radial ABG pH 7.306 L 7.381 ABG pCO2 74.3 H* 62.1 H* ABG pO2 68.4 L 236.4 H ABG PO2/FiO2 Ratio 0.91 3.15 ABG HCO3 36.2 H 36.0 H ABG O2 Saturation 91.1 L 99.5 ABG O2 Content 14.3 L 15.6 L ABG Base Excess 7.8 9.1 A-a Gradient 387.4 232.4 Oxyhemoglobin 91.0 98.7 Carboxyhemoglobin 1.2 Reduced Hemoglobin 7.7 H Total Hemoglobin 11.1 L 10.8 L O2 Delivery Device Other device Non-invasive vent O2 Liters/Min 15.0 Not Reportable Vent Rate 18 FiO2 75 75 Imaging Data Radiologist's impression: ITS Impressions Chest X-Ray 03/25/24 14:02 IMPRESSION: 1. Persistent diffuse reticular and mild airspace opacities throughout both lungs consistent with multifocal pneumonia which appears to progressed in the right upper lung zone. ECG Data EKG #1: ECG completion date: 03/25/24 ECG completion time: 13:19 EKG Interpretation: normal rate (86), sinus rhythm, no ectopy, normal QRS, normal QT and NL axis Critical Care Time Critical Care Time Critical Care Time: Yes Total Critical Care Time: 45 Discharge Plan Discharge Clinical Impression: Acute respiratory failure with hypoxia and hypercapnia, Multifocal pneumonia Patient Disposition: Still a Patient Condition: Stable Prescriptions: No Action baclofen 10 mg tablet 5 mg PO TID PRN (Reason: muscle spasms) escitalopram oxalate 20 mg tablet 20 mg PO HS nitroglycerin 400 mcg/spray spray,non-aerosol 1 spray translingual Q5M PRN (Reason: Chest Pain) Rx Instructions: do not exceed 3 doses per episode simvastatin 20 mg tablet 20 mg PO DAILY ranolazine 500 mg tablet extended release 12 hr 500 mg PO Q12H Trelegy Ellipta 100-62.5-25 mcg blister with device 1 inh INHALATION DAILY Trelegy Ellipta 100-62.5-25 mcg blister with device 1 inh INHALATION DAILY Mucinex 600 mg PO BID Niferex 1 tablet PO BID acetaminophen 650 mg PO Q6H PRN (Reason: Pain) albuterol sulfate See Rx Instructions .ROUTE .COMPLEX PRN (Reason: Shortness Of Breath) Rx Instructions: 2.5 mg/ 3 mL solution for nebulization Q6hr PRN benzonatate 100 mg PO TID PRN (Reason: Cough) ipratropium-albuterol 1 vial inhalation TID omeprazole 40 mg PO BID potassium chloride 20 meq PO DAILY sodium chloride 1,000 mg PO TID levothyroxine [Synthroid] 150 mcg Tablet 150 mcg PO DAILY@0630 Qty: 30 0RF levothyroxine 37.5 mcg capsule 37.5 mcg PO DAILY Qty: 30 0RF furosemide 20 mg Tablet 20 mg PO BID Qty: 60 0RF ferrous sulfate [Slow Release Iron] 142 mg (45 mg iron) Tablet Extended Release 142 mg PO BIDWM Qty: 60 0RF prednisone 20 mg Tablet 40 mg PO DAILY@0800 Qty: 3 0RF midodrine 2.5 mg Tablet 5 mg PO TID Qty: 90 0RF alprazolam 1 mg tablet 1 mg PO TID PRN (Reason: anxiety) Qty: 90 0RF Follow-up/Referrals: PHYSICIAN NOT ON STAFF,NONSTAFF [Primary Care Provider] - Time of Disposition: 15:47
[2024-03-25] MEDS: AMPICILLIN SULB 3 GM/NS 100 ML 3 GM/100 ML VIAL IVPB ×2 (16:01→22:13)
[2024-03-25 16:25] LABS: Procalcitonin 0.1 ng/mL
[2024-03-25] MEDS: SODIUM CHLORIDE 0.9% IV 1,000 ML 125 ML IV CONT (20:09)
[2024-03-25] MEDS: VANCOMYCIN 1,500 MG/NS 500 ML 1,500 MG/500 ML BAG 250 MG IVPB (20:10)
[2024-03-25] MEDS: IPRATROPIUM BR 0.02% INH SOLN 0.5 MG/2.5 ML VIAL INHALATION (21:04)
[2024-03-25] MEDS: ALBUTEROL SULFATE NEB 2.5 MG/3 ML INH INHALATION (21:04)
[2024-03-25 21:17] LABS: Alveolar/Arterial O2 Gradient 132.7 mmHg; Base Excess ABG 5.7 mEq/l (+/-2.0); Carboxyhemoglobin 1.1 % THb (0-2.0); Fractional Inspired Oxygen 40 %; HCO3 ABG 32.6 mEq/l (22.0-26.0); Methemoglobin ABG 0.1 %THb (0-1.5); Modified Allen's Test Pass; Oxygen Content ABG 18.2 %vol (16.0-22.0); Oxygen Saturation ABG 96.1 % (95.0-100.0); Oxyhemoglobin 95.4 % THb (90.0-100.0); PCO2 ABG 57.7 mmHg (35.0-45.0); PO2 ABG 86.1 mmHg (80.0-100.0); PO2 FiO2 Ratio Arterial Blood 2.15 %; Reduced Hemoglobin 3.4 %THb (0-5.0); Site Drawn RIGHT RADIAL; Total Hemoglobin 13.5 g/dL (12.0-18.0)
[2024-03-25 21:18] LABS: Device BIPAP
[2024-03-25 21:19] LABS: Expiratory Pressure 6 cmH2O; Inspiratory Pressure 14 cmH2O
[2024-03-25 21:37] LABS: Influenza A QL RT-PCR Negative (Negative); Influenza B QL RT-PCR Negative (Negative); RSV RNA, RT-PCR Negative (Negative); SARS-CoV-2 RNA PCR Negative (Negative)
[2024-03-25 22:14] LABS: MRSA (PCR) NOT DETECTED (NOT DETECTE)
[2024-03-26] VITALS (24 sets, daily range): BP systolic 106–151; BP diastolic 57–78; PULSE 48–67; RESP 16–27; TEMP 36.3–36.8; O2SAT 94–100; BMI 19.0
[2024-03-26] MEDS: IPRATROPIUM BR 0.02% INH SOLN 0.5 MG/2.5 ML VIAL INHALATION ×4 (02:45→20:22)
[2024-03-26] MEDS: ALBUTEROL SULFATE NEB 2.5 MG/3 ML INH INHALATION ×4 (02:45→20:22)
[2024-03-26] MEDS: AMPICILLIN SULB 3 GM/NS 100 ML 3 GM/100 ML VIAL IVPB ×3 (05:00→17:20)
[2024-03-26 05:35] LABS: Basophils Percent Auto 0.1 % (0.2-1.2); Hematocrit 33.7 % (42.0-52.0); Hemoglobin 10.2 g/dL (14.0-18.0); Immature Granulocyte Absolute 0.07 K/mm3 (0.00-0.031); Immature Granulocyte Percent A 0.8 % (0-0.5); Lymphocytes Absolute Auto 0.32 K/mm3 (0.9-3.2); Lymphocytes Percent Auto 3.5 % (18.3-44.2); Mean Corpuscular HGB Conc 30.3 g/dl (32-36); Mean Corpuscular Hemoglobin 28.3 pg (26-34); Mean Corpuscular Volume 93.6 fl (80-100); Mean Platelet Volume 8.6 fl (7.4-10.4); Monocytes Absolute Auto 0.2 K/mm3 (0.1-0.6); Neutrophils Absolute Auto 8.6 K/mm3 (1.3-6.7); Neutrophils Percent Auto 93.6 % (45.5-73.1); Platelet Count Result 259 k/mm3 (150-375); Red Cell Distribution Width 18.9 % (11.5-14.5); White Blood Count 9.2 K/mm3 (4.5-10.0)
[2024-03-26 05:46] LABS: Anion Gap 2 mmol/L (4-12); Blood Urea Nitrogen 14 mg/dL (9-20); Carbon Dioxide 35 mmol/L (22-30); Chloride 100 mmol/L (98-107); Estimated CRCL calculation 120 ml/min; Estimated Glomerular Filt Rate > 60; Glucose 120 mg/dL (65-110); Magnesium 2.4 mg/dL (1.6-2.3); Potassium 4.4 mmol/L (3.4-5.0); Sodium 137 mmol/L (137-145)
[2024-03-26] MEDS: VANCOMYCIN 1,250 MG/NS 250 ML 1,250 MG/250 ML BAG 166.67 MG IVPB ×2 (08:13→21:17)
[2024-03-26] MEDS: ENOXAPARIN 40 MG/0.4 ML SYRINGE SUB-Q (09:00)
[2024-03-26] MEDS: COLLAGENASE OINT 30 GM TUBE 1 APPLIC TOPICAL (11:00)
--- NOTE | 2024-03-26 14:35 | PM.IMPN ---
Progress Note: A&P Assessment and Plan (1) Acute respiratory failure with hypoxia and hypercapnia: Code(s): J96.01 - Acute respiratory failure with hypoxia; J96.02 - Acute respiratory failure with hypercapnia Status: Acute Assessment and Plan: Patient returns after about [facility] the [facility] for SOB and resp distress. ABG 7. on 15L. BiPAP started. CXR showing persistent diffuse reticular and mild airspace opacities t/o both lungs with progression in the RUL Repeat ABG better. Related to bacterial PNA or more likely aspiration PNA (although unlikely for aspiration in the RUL) Continue BiPAP at night and with naps. (2) Multifocal pneumonia: Code(s): J18.9 - Pneumonia, unspecified organism Status: Acute Assessment and Plan: He completed cefepime and azithro here before discharge on 03/18 Per RN, patient was even treated with cefepime and levaquin at the [facility] prior to being re-admitted. MRSA nasal swab negative Suspect either ESBL PNA or MRSA PNA or pneumonitis from recurrent aspiration. Aspiration possible given the hx from the brother Continue Unasyn and Vanco. Order MBS and cancel bedside. NPO. May need GTube. Start IV fluids (3) Dysphagia: Code(s): R13.10 - Dysphagia, unspecified Status: Acute Assessment and Plan: Discussed with brother (SERGEY) and all questions answered. As above (4) Chronic obstructive pulmonary disease: Code(s): J44.9 - Chronic obstructive pulmonary disease, unspecified Status: Acute Assessment and Plan: Coarse BS noted. (5) Hypothyroidism: Code(s): E03.9 - Hypothyroidism, unspecified Status: Acute Assessment and Plan: Patient has a hx of thyroid CA s/p chemotherapy and XRT. TSH 58 on 03/08. Was on levothyroxine 175 mcg daily on last admission and dose was increased to 187.5 mcg daily. Will need repeat TSH in 6-8 weeks Plan DVT prophylaxis - Lovenox Code status - full Subjective Date/time seen: 03/26/24 14:35 Interval history: 73yo male with tobacco abuse, COPD, CAD s/[id number], thyroid cancer now with hypothyroidism, iron deficiency anemia, and GERD who presented to the ED via EMS from [facility] for evaluation of hypoxia. The patient was discharged here on 03/18 after finishing a round of abx (cefepime and azithromycin) but was resumed on cefepime and Levaquin in the [facility]. Patient is alert and somewhat oriented. He wore the biapap overnight. He feels SOB but no CP. he is supposed to be on honey thickened liquids but they uses nectar thick at the [facility]. Exam Narrative: AF 97.9 117/65 64 20 94% 2L Gen - NARD with bipap secured that was removed and changed to nasal cannula Chest - coarse BS bilaterally CV - S1/S2. tele showing no significant dysrhythmias Abd - Soft, NT/ND, Positive BS Ext - No pedal edema Neuro - Alert and oriented. Psych - Nml mood and affect Skin - Warm and dry Objective Data Vital Signs Vital Signs: Vital Signs - 24 hr 03/25/24 14:41 03/25/24 14:45 03/25/24 15:01 Temperature Pulse Rate 68 66 67 Respiratory Rate 18 18 18 Blood Pressure 125/72 Pulse Oximetry Oxygen Delivery Oxygen Flow Rate Fraction of Inspired Oxygen 03/25/24 15:02 03/25/24 15:42 03/25/24 15:45 Temperature Pulse Rate 66 62 64 Respiratory Rate 18 16 15 Blood Pressure Pulse Oximetry Oxygen Delivery Oxygen Flow Rate Fraction of Inspired Oxygen 03/25/24 15:46 03/25/24 16:00 03/25/24 16:01 Temperature Pulse Rate 60 65 64 Respiratory Rate 16 17 18 Blood Pressure 121/72 123/74 Pulse Oximetry Oxygen Delivery Oxygen Flow Rate Fraction of Inspired Oxygen 03/25/24 16:15 03/25/24 15:05 03/25/24 17:07 Temperature Pulse Rate 65 62 Respiratory Rate 20 18 Blood Pressure 116/65 Pulse Oximetry 100 100 100 Oxygen Delivery BiPAP BiPAP Oxygen Flow Rate Fraction of Inspired Oxygen 50 03/25/24 17:00 03/25/24 17:38 03/25/24 17:53 Temperature 97.5 F L Pulse Rate 65 68 59 L Respiratory Rate 19 21 H 21 H Blood Pressure 111/61 Pulse Oximetry 100 98 100 Oxygen Delivery BiPAP BiPAP Oxygen Flow Rate Fraction of Inspired Oxygen 03/25/24 20:00 03/25/24 20:00 03/25/24 21:05 Temperature 97.6 F Pulse Rate 63 55 L Respiratory Rate 18 18 Blood Pressure 126/60 Pulse Oximetry 98 98 Oxygen Delivery BiPAP Oxygen Flow Rate Fraction of Inspired Oxygen 40 03/25/24 21:09 03/25/24 20:00 03/25/24 22:00 Temperature Pulse Rate 55 L 60 52 L Respiratory Rate 19 Blood Pressure Pulse Oximetry 98 Oxygen Delivery BiPAP Oxygen Flow Rate Fraction of Inspired Oxygen 03/25/24 23:22 03/25/24 23:29 03/26/24 00:00 Temperature 97.6 F Pulse Rate 50 L 50 L Respiratory Rate 21 H Blood Pressure 117/57 L Pulse Oximetry 100 100 Oxygen Delivery BiPAP Oxygen Flow Rate Fraction of Inspired Oxygen 40 03/26/24 02:00 03/26/24 02:48 03/26/24 00:10 Temperature Pulse Rate 50 L 48 L 48 L Respiratory Rate 20 18 Blood Pressure Pulse Oximetry 98 Oxygen Delivery BiPAP Oxygen Flow Rate Fraction of Inspired Oxygen 03/26/24 03:16 03/26/24 03:19 03/26/24 04:00 Temperature 97.4 F L Pulse Rate 57 L Respiratory Rate 18 20 Blood Pressure 106/69 Pulse Oximetry 98 98 Oxygen Delivery BiPAP BiPAP Oxygen Flow Rate Fraction of Inspired Oxygen 40 03/26/24 04:00 03/26/24 06:00 03/26/24 07:40 Temperature Pulse Rate 57 L 55 L 59 L Respiratory Rate 27 H Blood Pressure Pulse Oximetry Oxygen Delivery Oxygen Flow Rate Fraction of Inspired Oxygen 03/26/24 07:42 03/26/24 07:53 03/26/24 07:54 Temperature 97.3 F L Pulse Rate 59 L 57 L 62 Respiratory Rate 18 20 20 Blood Pressure 151/78 H Pulse Oximetry 100 100 Oxygen Delivery BiPAP Oxygen Flow Rate Fraction of Inspired Oxygen 03/26/24 11:34 03/26/24 12:48 03/26/24 13:22 Temperature 97.9 F Pulse Rate 67 63 Respiratory Rate 18 20 Blood Pressure 117/65 Pulse Oximetry 100 94 Oxygen Delivery Nasal Cannula Oxygen Flow Rate 2 Fraction of Inspired Oxygen 03/26/24 13:38 03/26/24 08:00 03/26/24 08:00 Temperature Pulse Rate 64 61 Respiratory Rate 20 Blood Pressure Pulse Oximetry 100 Oxygen Delivery Nasal Cannula Oxygen Flow Rate 2 Fraction of Inspired Oxygen 03/25/24 19:17 Temperature Pulse Rate 59 L Respiratory Rate Blood Pressure 111/61 Pulse Oximetry 100 Oxygen Delivery Oxygen Flow Rate Fraction of Inspired Oxygen Intake/Output Intake/Output: Intake & Output 03/23/24 03/24/24 03/25/24 03/26/24 23:59 23:59 23:59 23:59 Intake Total 700 1100 Output Total 500 0 Balance 200 1100 Meds/Results Medications: Active Medications Generic Name Dose Route Start Last Admin Trade Name Freq PRN Reason Stop Dose Admin Acetaminophen 650 mg 03/25/24 15:48 Acetaminophen 325 Mg Tablet PO Q4H PRN Mild Pain (1-3) or Fever Albuterol 2.5 mg 03/25/24 20:00 03/26/24 13:22 Albuterol Sulfate Neb 2.5 Mg/3 Ml Inh INHALATION 2.5 mg Q6HRT CARYL Administration Collagenase 1 applic 03/26/24 09:00 Collagenase Oint 30 Gm Tube TOPICAL QAM CARYL Enoxaparin Sodium 40 mg 03/26/24 09:00 Enoxaparin 40 Mg/0.4 Ml Syringe SUB-Q DAILY CARYL Ampicillin Sodium/Sulbactam Sodium 3 gm in 100 mls @ 200 mls/hr 03/25/24 23:00 03/26/24 05:30 Unasyn 3 Gm/Ns 100 Ml IVPB Infused Q6HR CARYL Infusion Vancomycin HCl 1,250 mg in 250 mls @ 166.667 mls/hr 03/26/24 08:00 03/26/24 08:13 Vancomycin 1,250 Mg/Ns 250 Ml IVPB 166.67 mls/hr Q12H CARYL Administration Ipratropium [place] 0.5 mg 03/25/24 20:00 03/26/24 13:21 Ipratropium Br 0.02% Inh Soln 0.5 Mg/2.5 Ml Vial INHALATION 0.5 mg Q6HRT CARYL Administration Radiology Results: ITS Impressions Chest X-Ray 03/25/24 14:02 IMPRESSION: 1. Persistent diffuse reticular and mild airspace opacities throughout both lungs consistent with multifocal pneumonia which appears to progressed in the right upper lung zone. Labs Labs: Laboratory Results - last 24 hr 03/25/24 03/25/24 03/25/24 13:41 15:09 20:27 WBC RBC Hgb Hct MCV MCH MCHC RDW Plt Count MPV Immature Gran % (Auto) Neut % (Auto) Lymph % (Auto) [place] % (Auto) Eos % (Auto) Baso % (Auto) Lymph # (Auto) [place] # (Auto) Eos # (Auto) Baso # (Auto) Abs Immat Gran (auto) Absolute Neuts (auto) Absolute Nucleated RBC Nucleated RBC % Puncture Site Right radial ABG pH 7.381 ABG pCO2 62.1 H* ABG pO2 236.4 H ABG PO2/FiO2 Ratio 3.15 ABG HCO3 36.0 H ABG O2 Saturation 99.5 ABG O2 Content 15.6 L ABG Base Excess 9.1 A-a Gradient 232.4 Oxyhemoglobin 98.7 Carboxyhemoglobin Methemoglobin Reduced Hemoglobin Total Hemoglobin 10.8 L O2 Delivery Device Non-invasive vent O2 Liters/Min Not Reportable Vent Rate 18 FiO2 75 Expiratory Pressure 6 Inspiratory Pressure 14 Sodium Potassium Chloride Carbon Dioxide Anion Gap BUN Creatinine Estim Creat Clear Calc Estimated GFR Glucose Calcium Magnesium Procalcitonin 0.1 Nasal MRSA (PCR) Not detected Influenza A (RT-PCR) Negative Influenza B (RT-PCR) Negative RSV (RT-PCR) Negative SARS-CoV-2 RNA (RT-PCR) Negative 03/25/24 03/26/24 20:44 05:19 WBC 9.2 RBC 3.60 L Hgb 10.2 L Hct 33.7 L MCV 93.6 MCH 28.3 MCHC 30.3 L RDW 18.9 H Plt Count 259 MPV 8.6 Immature Gran % (Auto) 0.8 H Neut % (Auto) 93.6 H Lymph % (Auto) 3.5 L [place] % (Auto) 2.0 L Eos % (Auto) 0.0 Baso % (Auto) 0.1 L Lymph # (Auto) 0.32 L [place] # (Auto) 0.2 Eos # (Auto) 0.0 Baso # (Auto) 0.0 Abs Immat Gran (auto) 0.07 H Absolute Neuts (auto) 8.6 H Absolute Nucleated RBC 0.000 Nucleated RBC % 0.0 Puncture Site Right radial ABG pH 7.370 ABG pCO2 57.7 H ABG pO2 86.1 ABG PO2/FiO2 Ratio 2.15 ABG HCO3 32.6 H ABG O2 Saturation 96.1 ABG O2 Content 18.2 ABG Base Excess 5.7 A-a Gradient 132.7 Oxyhemoglobin 95.4 Carboxyhemoglobin 1.1 Methemoglobin 0.1 Reduced Hemoglobin 3.4 Total Hemoglobin 13.5 O2 Delivery Device Bipap O2 Liters/Min Computer Science Teacher Vent Rate FiO2 40 Expiratory Pressure 6 Inspiratory Pressure 14 Sodium 137 Potassium 4.4 Chloride 100 Carbon Dioxide 35 H Anion Gap 2 L BUN 14 Creatinine 0.40 L Estim Creat Clear Calc 120 Estimated GFR > 60 Glucose 120 H Calcium 8.0 L Magnesium 2.4 H Procalcitonin Nasal MRSA (PCR) Influenza A (RT-PCR) Influenza B (RT-PCR) RSV (RT-PCR) SARS-CoV-2 RNA (RT-PCR)
--- NOTE | 2024-03-26 15:03 | PCSTNOTE ---
Spoke with Dr. Yu about changing bedside swallow evaluation to modified barium swallow study as patient is already known for risk of aspiration. He agreed and order was changed. Can be completed tomorrow.
[2024-03-26] MEDS: DEXTROSE 5%/0.9% SOD CHL 1,000 ML 70 ML IV CONT (17:12)
[2024-03-27] VITALS (26 sets, daily range): BP systolic 120–147; BP diastolic 67–71; PULSE 51–62; RESP 17–28; TEMP 36.1–37.1; O2SAT 96–100
[2024-03-27 00:39] LABS: Glucose Point of Care 91 mg/dl (65-105)
[2024-03-27] MEDS: AMPICILLIN SULB 3 GM/NS 100 ML 3 GM/100 ML VIAL IVPB ×4 (01:09→18:33)
[2024-03-27] MEDS: IPRATROPIUM BR 0.02% INH SOLN 0.5 MG/2.5 ML VIAL INHALATION ×4 (01:48→20:43)
[2024-03-27] MEDS: ALBUTEROL SULFATE NEB 2.5 MG/3 ML INH INHALATION ×4 (01:49→20:43)
[2024-03-27 05:08] LABS: Alveolar/Arterial O2 Gradient 64.9 mmHg; Base Excess ABG 11.8 mEq/l (+/-2.0); Fractional Inspired Oxygen 30 %; HCO3 ABG 35.9 mEq/l (22.0-26.0); Oxygen Content ABG 10.9 %vol (16.0-22.0); Oxygen Saturation ABG 97.8 % (95.0-100.0); Oxyhemoglobin 96.4 % THb (90.0-100.0); PCO2 ABG 45.6 mmHg (35.0-45.0); PO2 ABG 95.4 mmHg (80.0-100.0); PO2 FiO2 Ratio Arterial Blood 3.18 %; Total Hemoglobin 7.9 g/dL (12.0-18.0)
[2024-03-27 05:15] LABS: Device BIPAP; Expiratory Pressure 6 cmH2O; Inspiratory Pressure 14 cmH2O; Modified Allen's Test Pass; Site Drawn RIGHT RADIAL; pH ABG 7.514 (7.350-7.450)
[2024-03-27] MEDS: DEXTROSE 5%/0.9% SOD CHL 1,000 ML 70 ML IV CONT ×2 (06:36→18:33)
[2024-03-27 06:47] LABS: Glucose Point of Care 92 mg/dl (65-105)
[2024-03-27 07:10] LABS: Hemoglobin 9.1 g/dL (14.0-18.0); Mean Corpuscular HGB Conc 30.3 g/dl (32-36); Mean Corpuscular Volume 92.3 fl (80-100); Mean Platelet Volume 8.4 fl (7.4-10.4); Platelet Count Result 246 k/mm3 (150-375); Red Blood Count 3.25 M/mm3 (4.6-6.20); Red Cell Distribution Width 18.6 % (11.5-14.5); White Blood Count 7.9 K/mm3 (4.5-10.0)
[2024-03-27 07:15] LABS: Anion Gap -3 mmol/L (4-12); Blood Urea Nitrogen 16 mg/dL (9-20); Calcium 7.9 mg/dL (8.4-10.2); Carbon Dioxide 39 mmol/L (22-30); Chloride 101 mmol/L (98-107); Estimated CRCL calculation 99 ml/min; Estimated Glomerular Filt Rate > 60; Glucose 85 mg/dL (65-110); Potassium 4.2 mmol/L (3.4-5.0); Sodium 137 mmol/L (137-145)
[2024-03-27 07:26] LABS: Vancomycin Trough 13.6 ug/mL (10.0-20.0)
[2024-03-27] MEDS: VANCOMYCIN 1,500 MG/NS 500 ML 1,500 MG/500 ML BAG 250 MG IVPB ×2 (08:12→21:17)
[2024-03-27] MEDS: ENOXAPARIN 40 MG/0.4 ML SYRINGE SUB-Q (08:13)
[2024-03-27] MEDS: COLLAGENASE OINT 30 GM TUBE 1 APPLIC TOPICAL (11:30)
--- NOTE | 2024-03-27 11:42 | REHSTMBS ---
Assessment and note entered by Zoya Martinez, FUR GRADER Modified Barium Swallow Evaluation Feeding Type Recommended Non-Oral Treatment Recommendations Laryngeal Elevation Exerc,Tongue Base Exercise, Vocal Fold Adduction Exer ST Clinical Summary Cecilio was alert and cooperative for this MBS study . He verbalized that he just wants to get something to eat and drink. He was presented with pudding, cracker coated with pudding, mildly thick liquid and thin liquid. Overall, Cecilio consistently demonstrated premature spillage for all swallows to the vallecula with limited pooling , but rather immediate flow to pyriform sinuses. Even when the pyriform sinuses were cleared with a swallow, fluid would again collect in the vallecula and eventually spilled over to pyriform sinus cavities. At two points during the study laryngeal penetration was noted with trace aspiration with no cough or clear to follow. For one instance of silent aspiration, consistency was believed to be pudding thick. At this time oral intake is not safe for patient and NPO is being recommended. Speech therapy is recommended to initiate a home program for swallow exercises in hopes to improve swallow function and strength.
[2024-03-27 12:29] LABS: Glucose Point of Care 75 mg/dl (65-105)
--- NOTE | 2024-03-27 12:47 | P.PNIM_ITS ---
Progress Note: A&P Assessment and Plan (1) Acute respiratory failure with hypoxia and hypercapnia: Code(s): J96.01 - Acute respiratory failure with hypoxia; J96.02 - Acute respiratory failure with hypercapnia Status: Acute Assessment and Plan: [facility] returns [facility] for SOB and resp distress. ABG 7./ on 15L. BiPAP started. CXR showing persistent diffuse reticular and mild airspace opacities t/o both lungs with progression in the RUL Repeat ABG better. Related to bacterial PNA or more likely aspiration PNA (although unlikely for aspiration in the RUL) Continue BiPAP at night and with naps. Wean O2 as tolerated. (2) Multifocal pneumonia: Code(s): J18.9 - Pneumonia, unspecified organism Status: Acute Assessment and Plan: He completed cefepime and azithro here before discharge on 03/18 Per RN, patient was even treated with cefepime and levaquin at the shelter prior to being re-admitted. MRSA nasal swab negative Suspect either ESBL PNA or MRSA PNA or pneumonitis from recurrent aspiration. Aspiration possible given the hx from the brother Continue Unasyn and Vanco. Consider meropenem if no improvement. Spoke with Speech therapist. MBS showing patient is aspirating and she recommends NPO. Discussed with patient about the need for GTube. Do not believe a temporary Dobhoff is warranted due to the frequent hospitalizations All questions answered. GI consult for GTube placement. Continue IV fluids (3) Dysphagia: Code(s): R13.10 - Dysphagia, unspecified Status: Acute Assessment and Plan: Discussed with brother (POA)yesterday and all questions answered. As above (4) Chronic obstructive pulmonary disease: Code(s): J44.9 - Chronic obstructive pulmonary disease, unspecified Status: Acute Assessment and Plan: Coarse BS noted. Continue Duonebs. (5) Hypothyroidism: Code(s): E03.9 - Hypothyroidism, unspecified Status: Acute Assessment and Plan: Patient has a hx of thyroid CA s/p chemotherapy and XRT. TSH 58 on 03/08. Was on levothyroxine 175 mcg daily on last admission and dose was increased to 187.5 mcg daily. Start levothyroxine IV at 100mcg. With hx of thyroid CA, TSH needs to be undetectable. Plan DVT prophylaxis - Lovenox Code status - full Subjective Date/time seen: 03/27/24 12:47 Interval history: 73yo male with tobacco abuse, COPD, CAD s/[id number], thyroid cancer now with hypothyroidism, iron deficiency anemia, and GERD who presented to the ED via EMS from [facility] for evaluation of hypoxia. The patient was discharged here on 03/18 after finishing a round of abx (cefepime and azithromycin) but was resumed on cefepime and Levaquin in the shelter. Slept poorly last night. No CP or SOB. Cough productive of clear sputum. Not on O2 at facility. Currently on 2L Exam Narrative: AF 97.0 139/67 60 24 99% 2L Gen - NARD currently in recliner Chest - coarse BS bilaterally CV - S1/S2. tele showing no significant dysrhythmias Abd - Soft, NT/ND, Positive BS Ext - No pedal edema Psych - Nml mood and affect Skin - Warm and dry Objective Data Vital Signs Vital Signs: Vital Signs - 24 hr 03/26/24 12:48 03/26/24 13:22 03/26/24 13:38 Temperature Pulse Rate 63 64 Respiratory Rate 20 20 Blood Pressure Pulse Oximetry 94 Oxygen Delivery Nasal Cannula Oxygen Flow Rate 2 03/26/24 16:00 03/26/24 16:00 03/26/24 20:23 Temperature 98.1 F Pulse Rate 65 Respiratory Rate 24 H Blood Pressure 119/64 Pulse Oximetry 97 98 97 Oxygen Delivery Nasal Cannula Nasal Cannula Oxygen Flow Rate 2 2 03/26/24 20:23 03/26/24 20:31 03/26/24 20:54 Temperature 98.3 F Pulse Rate 61 58 L 61 Respiratory Rate 16 16 22 H Blood Pressure 108/57 L Pulse Oximetry 95 Oxygen Delivery Oxygen Flow Rate 03/26/24 20:00 03/27/24 00:32 03/26/24 20:00 Temperature 98.3 F 98.2 F Pulse Rate 56 L Respiratory Rate 28 H Blood Pressure 126/69 Pulse Oximetry 99 100 Oxygen Delivery Nasal Cannula Oxygen Flow Rate 2 03/27/24 00:00 03/26/24 20:00 03/26/24 22:00 Temperature Pulse Rate 61 59 L Respiratory Rate Blood Pressure Pulse Oximetry 97 Oxygen Delivery Nasal Cannula Oxygen Flow Rate 2 03/27/24 00:00 03/27/24 01:49 03/27/24 01:52 Temperature Pulse Rate 57 L 52 L 51 L Respiratory Rate 18 20 Blood Pressure Pulse Oximetry 100 Oxygen Delivery BiPAP Oxygen Flow Rate 03/27/24 01:58 03/27/24 02:00 03/27/24 04:42 Temperature Pulse Rate 55 L 52 L 59 L Respiratory Rate 20 22 H Blood Pressure Pulse Oximetry 100 Oxygen Delivery BiPAP Oxygen Flow Rate 03/27/24 04:51 03/27/24 04:00 03/27/24 04:00 Temperature 98.8 F Pulse Rate 60 55 L Respiratory Rate 18 Blood Pressure 130/70 Pulse Oximetry 100 98 Oxygen Delivery BiPAP Oxygen Flow Rate 2 03/27/24 06:00 03/27/24 07:46 03/27/24 08:14 Temperature 98 F Pulse Rate 52 L 59 L Respiratory Rate 20 Blood Pressure 120/67 Pulse Oximetry 100 98 Oxygen Delivery Nasal Cannula Oxygen Flow Rate 2 03/27/24 08:14 03/27/24 08:43 03/27/24 11:57 Temperature 97 F L Pulse Rate 61 60 60 Respiratory Rate 20 20 24 H Blood Pressure 139/67 Pulse Oximetry 99 Oxygen Delivery Oxygen Flow Rate Intake/Output Intake/Output: Intake & Output 03/24/24 03/25/24 03/26/24 03/27/24 23:59 23:59 23:59 23:59 Intake Total 700 1703.3 1138 Output Total 718 730 0764 Balance 200 1228.3 -1162 Meds/Results Medications: Active Medications Generic Name Dose Route Start Last Admin Trade Name Freq PRN Reason Stop Dose Admin Acetaminophen 650 mg 03/25/24 15:48 Acetaminophen 325 Mg Tablet PO Q4H PRN Mild Pain (1-3) or Fever Albuterol 2.5 mg 03/25/24 20:00 03/27/24 08:13 Albuterol Sulfate Neb 2.5 Mg/3 Ml Inh INHALATION 2.5 mg Q6HRT CARYL Administration Collagenase 1 applic 03/26/24 09:00 03/27/24 11:30 Collagenase Oint 30 Gm Tube TOPICAL 1 applic QAM CARYL Administration Enoxaparin Sodium 40 mg 03/26/24 09:00 03/27/24 08:13 Enoxaparin 40 Mg/0.4 Ml Syringe SUB-Q 40 mg DAILY CARYL Administration Ampicillin Sodium/Sulbactam Sodium 3 gm in 100 mls @ 200 mls/hr 03/25/24 23:00 03/27/24 11:31 Unasyn 3 Gm/Ns 100 Ml IVPB 200 mls/hr Q6HR CARYL Administration Dextrose/Sodium Chloride 1,000 mls @ 70 mls/hr 03/26/24 15:00 03/27/24 06:36 Dextrose 5% Sodium Chloride 0.9% IV CONT 70 mls/hr .[id number] CARYL Administration Vancomycin HCl 1,500 mg in 500 mls @ 250 mls/hr 03/27/24 08:00 03/27/24 08:12 Vancomycin 1,500 Mg/Ns 500 Ml IVPB 250 mls/hr Q12H CARYL Administration Ipratropium [place] 0.5 mg 03/25/24 20:00 03/27/24 08:13 Ipratropium Br 0.02% Inh Soln 0.5 Mg/2.5 Ml Vial INHALATION 0.5 mg Q6HRT CARYL Administration Radiology Results: ITS Impressions Chest X-Ray 03/25/24 14:02 IMPRESSION: 1. Persistent diffuse reticular and mild airspace opacities throughout both lungs consistent with multifocal pneumonia which appears to progressed in the right upper lung zone. Labs Labs: Laboratory Results - last 24 hr 03/27/24 03/27/24 03/27/24 00:36 04:44 06:44 WBC RBC Hgb Hct MCV MCH MCHC RDW Plt Count MPV Puncture Site Right radial ABG pH 7.514 H* ABG pCO2 45.6 H ABG pO2 95.4 ABG PO2/FiO2 Ratio 3.18 ABG HCO3 35.9 H ABG O2 Saturation 97.8 ABG O2 Content 10.9 L ABG Base Excess 11.8 A-a Gradient 64.9 Oxyhemoglobin 96.4 Total Hemoglobin 7.9 L O2 Delivery Device Bipap O2 Liters/Min Not Reportable FiO2 30 Expiratory Pressure 6 Inspiratory Pressure 14 Sodium Potassium Chloride Carbon Dioxide Anion Gap BUN Creatinine Estim Creat Clear Calc Estimated GFR Glucose POC Capillary Glucose 91 92 Calcium Vancomycin Trough 03/27/24 03/27/24 06:58 11:52 WBC 7.9 RBC 3.25 L Hgb 9.1 L Hct 30.0 L MCV 92.3 MCH 28.0 MCHC 30.3 L RDW 18.6 H Plt Count 246 MPV 8.4 Puncture Site ABG pH ABG pCO2 ABG pO2 ABG PO2/FiO2 Ratio ABG HCO3 ABG O2 Saturation ABG O2 Content ABG Base Excess A-a Gradient Oxyhemoglobin Total Hemoglobin O2 Delivery Device O2 Liters/Min FiO2 Expiratory Pressure Inspiratory Pressure Sodium 137 Potassium 4.2 Chloride 101 Carbon Dioxide 39 H Anion Gap -3 L BUN 16 Creatinine 0.50 L Estim Creat Clear Calc 99 Estimated GFR > 60 Glucose 85 POC Capillary Glucose 75 Calcium 7.9 L Vancomycin Trough 13.6
--- NOTE | 2024-03-27 13:45 | PCDIET ---
Nutrition consult for tube feedings. Patient had MBS today recommending non oral feedings. GI has been consulted for PEG placement. Tube feeding recommendations: Jevity 1.5 at 20 ml/hr advance by 10 ml q 4 hours to goal rate of 55 ml/hr. Flush 100 ml q 4 hours. Following.
[2024-03-27 18:00] LABS: Glucose Point of Care 81 mg/dl (65-105)
[2024-03-28] VITALS (29 sets, daily range): BP systolic 100–152; BP diastolic 65–77; PULSE 57–70; RESP 18–22; TEMP 36.5–36.9; O2SAT 5–99
[2024-03-28] MEDS: AMPICILLIN SULB 3 GM/NS 100 ML 3 GM/100 ML VIAL IVPB ×5 (00:22→23:25)
[2024-03-28 00:26] LABS: Glucose Point of Care 90 mg/dl (65-105)
[2024-03-28] MEDS: ALBUTEROL SULFATE NEB 2.5 MG/3 ML INH INHALATION ×2 (02:18→07:20)
[2024-03-28] MEDS: IPRATROPIUM BR 0.02% INH SOLN 0.5 MG/2.5 ML VIAL INHALATION ×2 (02:18→07:20)
[2024-03-28 05:24] LABS: Hematocrit 30.9 % (42.0-52.0); Hemoglobin 9.8 g/dL (14.0-18.0); Mean Corpuscular HGB Conc 31.7 g/dl (32-36); Mean Corpuscular Hemoglobin 28.3 pg (26-34); Mean Corpuscular Volume 89.3 fl (80-100); Mean Platelet Volume 8.4 fl (7.4-10.4); Platelet Count Result 255 k/mm3 (150-375); Red Blood Count 3.46 M/mm3 (4.6-6.20); Red Cell Distribution Width 18.5 % (11.5-14.5); White Blood Count 5.3 K/mm3 (4.5-10.0)
[2024-03-28 05:32] LABS: Anion Gap 3 mmol/L (4-12); Blood Urea Nitrogen 8 mg/dL (9-20); Carbon Dioxide 33 mmol/L (22-30); Chloride 99 mmol/L (98-107); Estimated CRCL calculation 139 ml/min; Estimated Glomerular Filt Rate > 60; Glucose 89 mg/dL (65-110); Potassium 3.6 mmol/L (3.4-5.0); Sodium 135 mmol/L (137-145)
[2024-03-28] MEDS: LEVOTHYROXINE SODIUM INJ 100 MCG/5 ML VIAL IV PUSH (05:42)
[2024-03-28] MEDS: VANCOMYCIN 1,500 MG/NS 500 ML 1,500 MG/500 ML BAG 250 MG IVPB (08:12)
[2024-03-28] MEDS: LACTATED RINGERS 1,000 ML 150 ML IV CONT (10:47)
--- NOTE | 2024-03-28 11:06 | P.PNAN_ITS ---
Anes - Initial Pre Proc Eval Procedure: Operation Date: 03/28/24 13:30 Proposed Procedures p Percutaneous Endoscopic Gastrostomy - Dre Banegas MD Date/Time: 03/28/24 11:06 Surgeon: Amandeep Yu MD Pre Op Diagnosis: Multifocal Pneumonia/Acute on Chronic Resp Failure Patient Data Age: 73 Gender: M Height: 1.8 m Weight: 56.2 kg Last Vital Signs Temp 97.7 F 03/28/24 10:50 Pulse 64 03/28/24 10:50 Resp 20 03/28/24 10:50 BP 128/71 03/28/24 10:50 Pulse Ox 97 03/28/24 10:50 O2 Del Method Nasal Cannula 03/28/24 10:50 O2 Flow Rate 2 03/28/24 10:50 FiO2 28 03/28/24 07:20 Allergies Allergy/AdvReac Type Severity Reaction Status Date / Time atorvastatin AdvReac Mild MADE ME Verified 02/21/24 10:52 SICK methocarbamol AdvReac Mild MADE ME Verified 02/21/24 10:52 SICK terbinafine AdvReac Mild MADE ME Verified 02/21/24 10:52 SICK Home Medications Medication Instructions Recorded Confirmed Type baclofen 10 mg tablet 5 mg PO TID PRN muscle spasms 07/21/20 03/25/24 History nitroglycerin 400 mcg/spray 1 spray translingual Q5M PRN Chest 07/21/20 03/25/24 History translingual Pain simvastatin 20 mg tablet 20 mg PO DAILY 07/21/20 03/25/24 History ranolazine 500 mg tablet,extended 500 mg PO Q12H 03/22/21 03/25/24 History release,12 hr alprazolam 1 mg tablet 1 mg PO TID PRN anxiety #90 tabs 02/01/23 03/25/24 Rx Mucinex 600 mg PO BID 03/08/24 03/25/24 History acetaminophen 650 mg PO Q6H PRN Pain 03/08/24 03/25/24 History albuterol sulfate 2 puff inhalation Q4H PRN 03/08/24 03/25/24 History Shortness Of Breath benzonatate 100 mg PO Q8H PRN Cough 03/08/24 03/25/24 History fluticasone fur. 100 mcg-umeclid 1 inh inhalation DAILY 03/08/24 03/25/24 History 62.5 mcg-vilant 25 mcg inhalat.powder (Trelegy Ellipta) ipratropium-albuterol 1 vial inhalation TID 03/08/24 03/25/24 History omeprazole 40 mg PO BID 03/08/24 03/25/24 History potassium chloride 20 meq PO DAILY 03/08/24 03/25/24 History sodium chloride 1,000 mg PO TID 03/08/24 03/25/24 History levothyroxine 150 mcg tablet 150 mcg PO DAILY@0630 #30 tabs 03/18/24 03/25/24 Rx (Synthroid) levothyroxine 37.5 mcg capsule 37.5 mcg PO DAILY #30 caps 03/18/24 03/25/24 Rx Saccharomyces boulardii 250 mg 250 mg PO BID 03/25/24 03/25/24 History capsule aspirin 81 mg chewable tablet 81 mg PO DAILY 03/25/24 03/25/24 History bisacodyl 10 mg rectal suppository 10 mg RECTAL DAILY PRN Constipation 03/25/24 03/25/24 History ferrous sulfate 325 mg (65 mg 325 mg PO BID 03/25/24 03/25/24 History iron) tablet furosemide 20 mg tablet 20 mg PO DAILY 03/25/24 03/25/24 History levofloxacin 750 mg tablet 750 mg HS 03/25/24 03/25/24 History magnesium citrate (Citroma oral 300 ml PO DAILY PRN Constipation 03/25/24 03/25/24 History solution) magnesium hydroxide 400 mg/5 mL 400 mg PO DAILY PRN Constipation 03/25/24 03/25/24 History oral suspension (Milk of Magnesia) midodrine 2.5 mg tablet 2.5 mg PO TID 03/25/24 03/25/24 History multivitamin with minerals-folic 1 tablet PO DAILY 03/25/24 03/25/24 History acid 0.4 mg tablet naloxone 4 mg/actuation nasal spray 4 mg intranasal Q2M 03/25/24 03/25/24 History polysaccharide iron complex 150 mg 150 mg PO BID 03/25/24 03/25/24 History iron capsule sodium phosphates 19 gram-7 118 ml RECTAL ONCE 03/25/24 03/25/24 History gram/118 mL enema (Fleet Enema) cefepime 2 gram intravenous 2 g IV Q12H 03/26/24 03/26/24 History piggyback escitalopram oxalate 20 mg tablet 20 mg PO QHS 03/26/24 03/26/24 History Laboratory Tests 03/27/24 03/27/24 03/28/24 11:52 17:58 00:22 WBC RBC Hgb Hct MCV MCH MCHC RDW Plt Count MPV Sodium Potassium Chloride Carbon Dioxide Anion Gap BUN Creatinine Estim Creat Clear Calc Estimated GFR Glucose POC Capillary Glucose 75 mg/dl 81 mg/dl 90 mg/dl (65-105) (65-105) (65-105) Calcium 03/28/24 05:12 WBC 5.3 K/mm3 (4.5-10.0) RBC 3.46 L M/mm3 (4.6-6.20) Hgb 9.8 L g/dL (14.0-18.0) Hct 30.9 L % (42.0-52.0) MCV 89.3 fl (80-100) MCH 28.3 pg (26-34) MCHC 31.7 L g/dl (32-36) RDW 18.5 H % (11.5-14.5) Plt Count 255 k/mm3 (150-375) MPV 8.4 fl (7.4-10.4) Sodium 135 L mmol/L (137-145) Potassium 3.6 mmol/L (3.4-5.0) Chloride 99 mmol/L (98-107) Carbon Dioxide 33 H mmol/L (22-30) Anion Gap 3 L mmol/L (4-12) BUN 8 L D mg/dL (9-20) Creatinine 0.30 L mg/dL (0.7-1.3) Estim Creat Clear Calc 139 ml/min Estimated GFR > 60 (59 - ) Glucose 89 mg/dL (65-110) POC Capillary Glucose Calcium 8.0 L mg/dL (8.4-10.2) Patient hx anesthesia problems: none Family hx anesthesia problems: none Results Review: All pre-operative results and documents have been reviewed as part of the pre- operative evaluation. [facility] Past Medical History Medical History Adenomatous colon polyp Basal cell carcinoma Chronic obstructive pulmonary disease Coronary artery disease Frequent falls Gastroesophageal reflux disease High cholesterol Hypertension Hyponatremia Hypothyroidism Lung cancer status post right upper lobe pneumonectomy Lymphocytic esophagitis Nonerosive esophageal reflux disease Peripheral neuropathy Rhabdomyolysis Thyroid cancer Surgical History Surgical History History of bilateral carpal tunnel release History of bilateral inguinal hernia repair History of cataract extraction with lens replacement (2015) History of cholecystectomy History of colonoscopy History of coronary angioplasty History of esophageal dilatation History of esophagogastroduodenoscopy (EGD) (2006) History of four vessel coronary artery bypass graft (09/2002) History of hemorrhoidectomy History of medial meniscus repair of right knee (2005) History of open reduction and internal fixation (ORIF) procedure (06/2022) repair right proximal humerus fracture History of pneumonectomy (2014) right upper lobe due to lung cancer History of ventral hernia repair (06/2006) gastric volvulus with ventral hernia repair Family History Family History Mother MVA (motor vehicle accident) Father Gunshot wound Sibling Heart disease Other Family history of cardiovascular disease Social History Social History (Updated 03/25/24 @ 18:36 by Ana Sanabria PA-C) Social History: Surrogate medical decision maker: Linwood Rubio ([phone]), brother. Code status: Full code. Smoking packs per day: 1 Smoking cigarettes per day: 20.0 Years smoked: 50 Smoking pack-years: 50.00 Smoking status: Current every day smoker Second hand tobacco smoke exposure: Yes Additional smoking assessment comments: has cut down to 4-6 cigarettes a day Alcohol intake: former Alcohol use details: no alcohol since August 31, 1984 Substance use: never Do You Feel Safe in your Home?: Yes Lack of Transportation: No Lack of Food: Never True Current Housing: I Have Housing Concerned About Future Housing: No Difficulty Paying Gas/Electric Bills: No Difficulty Paying for Meds: No Currently Unemployed: No Education: Decline to Answer Difficulty w/ Childcare or Family Care: No Additional living arrangements comments: Lives alone. with 2 children. Currently at [facility]. 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 Spiritual care concerns: No Anes - Eval Final PreProcedure Day of Procedure 03/28/24 11:06 Patient weight: cachectic Heart: regular rate and rhythm Lungs: clear to auscultation Airway: Mallampati scale class II Neurological: alert and oriented Last oral intake: >/= 8 hours ASA classification: IV Emergent: no Anesthetic plan: proceed Anesthesia type and monitoring: general GIVS and standard monitoring Results Review: All pre-operative results and documents have been reviewed as part of the pre- operative evaluation. Informed Consent: The patient's anesthetic plan and its attendant risks and benefits were discussed with the patient/family/POA. Questions were solicited and answers provided to the satisfaction of the patient/family/POA.
--- NOTE | 2024-03-28 11:28 | P.PNGI_ITS ---
Progress Note: A&P Assessment and Plan (1) Dysphagia: Code(s): R13.10 - Dysphagia, unspecified Status: Acute Assessment and Plan: The patient is deemed a good candidate for the procedure. Consent signed. Wi ll proceed. Subjective Date/time seen: 03/28/24 11:28 Interval history: the patient has been unable to swallow food properly since he was discharged. He is known to have severe Rosa esophagitis, however that was already treated and symptoms of dysphagia persist. The patient is readmitted for an episode of aspiration pneumonia. He is agreeable for PEG placement according to his primary care doctor's recommendation. Review of Systems Review of Systems: All systems reviewed & are unremarkable except as noted in HPI and below Exam Const: General: cooperative Resp: Effort & Inspection: normal respiratory effort and able to speak in complete sentences Auscultation: clear to auscultation bilaterally Cardio: Rate: regular rate Rhythm: regular rhythm GI: Inspection: normal to inspection GI Palp: No No hepatosplenomegaly present Auscultation: normal bowel sounds Rectal Exam: deferred Skin: General skin exam: normal color Psych: Appearance: grossly normal Mental Status: mental status grossly normal Objective Data Vital Signs Vital Signs: Vital Signs - 24 hr 03/27/24 11:57 03/27/24 13:49 03/27/24 14:01 Temperature 97 F L Pulse Rate 60 60 62 Respiratory Rate 24 H 20 20 Blood Pressure 139/67 Pulse Oximetry 99 Oxygen Delivery Oxygen Flow Rate Fraction of Inspired Oxygen 03/27/24 16:00 03/27/24 12:00 03/27/24 14:00 Temperature 98.3 F Pulse Rate 62 61 62 Respiratory Rate 17 Blood Pressure 140/71 Pulse Oximetry 96 Oxygen Delivery Oxygen Flow Rate Fraction of Inspired Oxygen 03/27/24 20:00 03/27/24 20:44 03/27/24 20:53 Temperature 97.8 F Pulse Rate 57 L 57 L 54 L Respiratory Rate 18 20 20 Blood Pressure 147/68 H Pulse Oximetry 100 Oxygen Delivery Oxygen Flow Rate Fraction of Inspired Oxygen 03/27/24 20:00 03/27/24 20:00 03/27/24 22:00 Temperature Pulse Rate 57 L 58 L Respiratory Rate Blood Pressure Pulse Oximetry 96 Oxygen Delivery Nasal Cannula Oxygen Flow Rate 2 Fraction of Inspired Oxygen 03/27/24 23:25 03/28/24 00:41 03/28/24 00:00 Temperature 98.5 F Pulse Rate 60 57 L Respiratory Rate 23 H 18 Blood Pressure 142/72 H Pulse Oximetry 99 97 98 Oxygen Delivery BiPAP Nasal Cannula Oxygen Flow Rate 2 Fraction of Inspired Oxygen 03/28/24 00:00 03/28/24 02:00 03/28/24 02:21 Temperature Pulse Rate 57 L 58 L 58 L Respiratory Rate 20 Blood Pressure Pulse Oximetry Oxygen Delivery Oxygen Flow Rate Fraction of Inspired Oxygen 03/28/24 02:28 03/28/24 04:22 03/28/24 04:00 Temperature 98.2 F Pulse Rate 60 60 Respiratory Rate 20 18 Blood Pressure 152/75 H Pulse Oximetry 96 97 Oxygen Delivery Nasal Cannula Oxygen Flow Rate 2 Fraction of Inspired Oxygen 03/28/24 04:00 03/28/24 06:00 03/28/24 08:00 Temperature 98 F Pulse Rate 60 59 L 60 Respiratory Rate 22 H Blood Pressure 137/66 Pulse Oximetry 98 Oxygen Delivery Oxygen Flow Rate Fraction of Inspired Oxygen 03/28/24 07:20 03/28/24 07:20 03/28/24 07:33 Temperature Pulse Rate 61 58 L Respiratory Rate 20 20 Blood Pressure Pulse Oximetry 96 Oxygen Delivery Nasal Cannula Oxygen Flow Rate 2 Fraction of Inspired Oxygen 28 03/28/24 08:00 03/28/24 10:00 03/28/24 10:50 Temperature 97.7 F Pulse Rate 61 62 64 Respiratory Rate 20 Blood Pressure 128/71 Pulse Oximetry 97 Oxygen Delivery Nasal Cannula Oxygen Flow Rate 2 Fraction of Inspired Oxygen Intake/Output Intake/Output: Intake & Output 03/25/24 03/26/24 03/27/24 03/28/24 23:59 23:59 23:59 23:59 Intake Total 700 1703.3 3174.5 100 Output Total 863 843 3680 2950 Balance 200 1228.3 499.5 -2850 Meds/Results Medications: Active Medications Generic Name Dose Route Start Last Admin Trade Name Freq PRN Reason Stop Dose Admin Acetaminophen 650 mg 03/25/24 15:48 Acetaminophen 325 Mg Tablet PO Q4H PRN Mild Pain (1-3) or Fever Albuterol/Ipratropium 3 ml 03/28/24 08:00 Ipratropium 0.5 Mg/Albuterol Sulfate 2.5 Mg Ampul.Neb 3 Ml INHALATION Q6HRT CARYL Collagenase 1 applic 03/26/24 09:00 03/28/24 11:17 Collagenase Oint 30 Gm Tube TOPICAL Not Given QAM [facility] Enoxaparin Sodium 40 mg 03/26/24 09:00 03/27/24 08:13 Enoxaparin 40 Mg/0.4 Ml Syringe SUB-Q 40 mg DAILY CARYL Administration Ampicillin Sodium/Sulbactam Sodium 3 gm in 100 mls @ 200 mls/hr 03/25/24 23:00 03/28/24 05:42 Unasyn 3 Gm/Ns 100 Ml IVPB 200 mls/hr Q6HR CARYL Administration Dextrose/Sodium Chloride 1,000 mls @ 70 mls/hr 03/26/24 15:00 03/28/24 11:17 Dextrose 5% Sodium Chloride 0.9% IV CONT Not Given .[id number] CARYL Lactated Ringer's 1,000 mls @ 150 mls/hr 03/28/24 10:45 03/28/24 10:47 Lr - Lactated Ringers Iv IV CONT 150 mls/hr .[id number] CARYL Administration Levothyroxine Sodium 100 mcg 03/27/24 12:50 03/28/24 05:42 Levothyroxine Sodium Inj 100 Mcg/5 Ml Vial IV PUSH 100 mcg DAILY@0630 CARYL Administration Radiology Results: ITS Impressions Chest X-Ray 03/25/24 14:02 IMPRESSION: 1. Persistent diffuse reticular and mild airspace opacities throughout both lungs consistent with multifocal pneumonia which appears to progressed in the right upper lung zone. Modified Barium Swallow 03/27/24 13:11 IMPRESSION: Oropharyngeal dysphagia with 2 episodes of laryngeal penetration and trace silent aspiration. Please correlate with speech pathologist findings and specific feeding recommendations. Labs Labs: Laboratory Results - last 24 hr 03/27/24 03/27/24 03/28/24 11:52 17:58 00:22 WBC RBC Hgb Hct MCV MCH MCHC RDW Plt Count MPV Sodium Potassium Chloride Carbon Dioxide Anion Gap BUN Creatinine Estim Creat Clear Calc Estimated GFR Glucose POC Capillary Glucose 75 81 90 Calcium 03/28/24 05:12 WBC 5.3 RBC 3.46 L Hgb 9.8 L Hct 30.9 L MCV 89.3 MCH 28.3 MCHC 31.7 L RDW 18.5 H Plt Count 255 MPV 8.4 Sodium 135 L Potassium 3.6 Chloride 99 Carbon Dioxide 33 H Anion Gap 3 L BUN 8 L D Creatinine 0.30 L Estim Creat Clear Calc 139 Estimated GFR > 60 Glucose 89 POC Capillary Glucose Calcium 8.0 L
[2024-03-28] MEDS: LIDOCAINE HCL 1% LOCAL INJ 20 ML VIAL 3 ML INFILTRATE (11:46)
[2024-03-28 13:21] LABS: Glucose Point of Care 76 mg/dl (65-105)
[2024-03-28] MEDS: IPRATROPIUM 0.5 MG/ALBUTEROL SULFATE 2.5 MG AMPUL.NEB 3 ML INHALATION ×2 (13:21→20:45)
--- NOTE | 2024-03-28 13:26 | PCDIET ---
Tube feeding recommendations: Jevity 1.5 at 20 ml/hr advance by 10 ml q 4 hours to goal rate of 55 ml/hr. Flush 100 ml q 4 hours.
[2024-03-28] MEDS: DEXTROSE 5%/0.9% SOD CHL 1,000 ML 70 ML IV CONT (15:17)
[2024-03-28 16:52] LABS: Glucose Point of Care 84 mg/dl (65-105)
[2024-03-28] MEDS: ACETAMINOPHEN 325 MG TABLET 650 MG PO (20:31)
[2024-03-28 23:35] LABS: Glucose Point of Care 106 mg/dl (65-105)
[2024-03-29] VITALS (23 sets, daily range): BP systolic 102–115; BP diastolic 58–66; PULSE 58–101; RESP 2–22; TEMP 36.6–36.8; O2SAT 95–100
[2024-03-29] MEDS: IPRATROPIUM 0.5 MG/ALBUTEROL SULFATE 2.5 MG AMPUL.NEB 3 ML INHALATION ×4 (01:55→21:32)
[2024-03-29] MEDS: HYDROcodone/acetaminophen (*CRX) 5-325 MG TABLET 1 TAB PO ×3 (04:44→20:32)
[2024-03-29] MEDS: AMPICILLIN SULB 3 GM/NS 100 ML 3 GM/100 ML VIAL IVPB ×4 (06:24→23:43)
[2024-03-29] MEDS: LEVOTHYROXINE SODIUM INJ 100 MCG/5 ML VIAL IV PUSH (06:24)
--- NOTE | 2024-03-29 09:55 | WPDANESPN ---
Anes - Prog Note Post-Op Date/Time: 03/29/24 09:55 Cardiovascular status: normal Respiratory status: normal Airway patency: baseline Mental status: baseline Post-Op hydration status: normal Vital Signs: Last Vital Signs Temp 36.8 C 03/29/24 08:00 Pulse 60 03/29/24 08:00 Resp 20 03/29/24 08:00 BP 104/58 L 03/29/24 08:00 Pulse Ox 100 03/29/24 08:00 O2 Del Method Nasal Cannula 03/29/24 06:50 O2 Flow Rate 3 03/29/24 06:50 FiO2 28 03/28/24 07:20 Pain Score (VAS): 05/11 I/O: Intake & Output 03/28/24 03/29/24 03/29/24 23:59 07:59 15:59 Intake Total 1200 647 Output Total 2200 500 Balance -1000 147 Laboratory Tests 03/28/24 05:12 03/28/24 05:12 03/28/24 03/28/24 03/28/24 13:19 16:47 23:33 POC Capillary Glucose 76 84 106 H Post-procedural complaints: none Patient Feedback: Patient satisfied with anesthetic care.
--- NOTE | 2024-03-29 11:00 | P.PNIM_ITS ---
Progress Note: A&P Assessment and Plan (1) Acute respiratory failure with hypoxia and hypercapnia: Code(s): J96.01 - Acute respiratory failure with hypoxia; J96.02 - Acute respiratory failure with hypercapnia Status: Acute Assessment and Plan: Patient returns after about 1 week at the [facility] for SOB and resp distress. ABG 7. on 15L. BiPAP started. CXR showing persistent diffuse reticular and mild airspace opacities t/o both lungs with progression in the RUL Repeat ABG better. Related to bacterial PNA or more likely aspiration PNA (although unlikely for aspiration in the RUL) Continue BiPAP at night and with naps. Wean O2 as tolerated. 03/29/2024 Patient is currently getting better. Plan is to continue current treatment. Increase activity as tolerated. Wean off oxygen as tolerated (2) Multifocal pneumonia: Code(s): J18.9 - Pneumonia, unspecified organism Status: Acute Assessment and Plan: He completed cefepime and azithro here before discharge on 03/18 Per RN, patient was even treated with cefepime and levaquin at the [facility] prior to being re-admitted. MRSA nasal swab negative Suspect either ESBL PNA or MRSA PNA or pneumonitis from recurrent aspiration. Aspiration possible given the hx from the brother Continue Unasyn and Vanco. Consider meropenem if no improvement. Spoke with Speech therapist. MBS showing patient is aspirating and she recommends NPO. Discussed with patient about the need for GTube. Do not believe a temporary Dobhoff is warranted due to the frequent hospitalizations All questions answered. GI consult for GTube placement. Continue IV fluids 03/29/2024 Patient is gradually getting better. Peg tube is in place. Will continue current treatment. Wean off oxygen as tolerated. (3) Dysphagia: Code(s): R13.10 - Dysphagia, unspecified Status: Acute Assessment and Plan: Peg tube was inserted yesterday. It is functioning fine (4) Chronic obstructive pulmonary disease: Code(s): J44.9 - Chronic obstructive pulmonary disease, unspecified Status: Acute Assessment and Plan: Stable on current medications, will continue current treatment (5) Hypothyroidism: Code(s): E03.9 - Hypothyroidism, unspecified Status: Acute Assessment and Plan: Stable on current medications, will continue current treatment Plan DVT prophylaxis - Lovenox Code status - full Subjective Date/time seen: 03/29/24 11:00 Patient was seen during the morning rounds today. Peg tube was placed yesterday. Patient is feeling better. No shortness of breath or chest pain. No abdominal pain. Interval history: Review of Systems Review of Systems: 12 systems were reviewed and are negativ e except for as per HPI. Exam Narrative: Narrative: General: Somnole nt but easily arou sable. Thin, frail , ill-appearing ma maxine in the semi-Fow ler position in be d on BiPAP. Weight : 63.4 kg. BMI: 1 9.5. HEENT: Normo cephalic, atraumat ic. PERRL, EOMI. Sclera anicteric. Oral mucosa appear s tacky through th e BiPAP. Neck: Patel pple. No obvious J VD. Respiratory: T olerating BiPAP. L jing sounds coarse with scattered rho nchi and are equal ly transmitted ant eriorly and at fla nks. Cardiovascula r: Regular rate a nd rhythm with S1- S2. Gastrointestin al: PEG tube work ing, abdomen is so ft, nontender, and nondistended with positive bowel so unds. Skin: Warm and dry. Generaliz ed pallor. Legs ar e dry and scaly. E xtremities: No cy anosis, clubbing, or edema. Radial a nd pedal pulses in tact. No palpable knots or cords. Ne urological: Alert and oriented. Cr anial nerves 2-12 are grossly intact . No gross focal d eficits to casual conversation. Psyc hiatric: He is pl easant and coopera tive with appropri ate mood. Objective Data Vital Signs Vital Signs: Vital Signs - 24 hr 03/28/24 11:45 03/28/24 11:55 03/28/24 12:05 Temperature Pulse Rate 66 70 67 Respiratory Rate 19 18 18 Blood Pressure 112/68 100/65 123/73 Pulse Oximetry 99 97 99 Oxygen Delivery Room Air Room Air Simple Face Mask Oxygen Flow Rate 10 03/28/24 12:10 03/28/24 12:15 03/28/24 12:55 Temperature 36.7 C Pulse Rate 66 60 Respiratory Rate 20 18 Blood Pressure 118/77 129/66 Pulse Oximetry 97 5 L 98 Oxygen Delivery Simple Face Mask Nasal Cannula Oxygen Flow Rate 4 2 03/28/24 13:02 03/28/24 13:21 03/28/24 13:28 Temperature Pulse Rate 59 L 61 59 L Respiratory Rate 20 20 Blood Pressure Pulse Oximetry Oxygen Delivery Oxygen Flow Rate 03/28/24 16:00 03/28/24 16:00 03/28/24 18:00 Temperature 36.7 C Pulse Rate 67 64 67 Respiratory Rate 22 H Blood Pressure 136/75 Pulse Oximetry 92 Oxygen Delivery Oxygen Flow Rate 03/28/24 20:45 03/28/24 20:45 03/28/24 20:50 Temperature Pulse Rate 62 61 Respiratory Rate 18 18 Blood Pressure Pulse Oximetry 91 Oxygen Delivery Nasal Cannula Oxygen Flow Rate 2 03/28/24 20:00 03/28/24 20:00 03/28/24 23:36 Temperature 36.6 C 36.6 C Pulse Rate 64 64 Respiratory Rate 20 20 Blood Pressure 124/68 121/73 Pulse Oximetry 96 91 96 Oxygen Delivery Oxygen Flow Rate 2 03/29/24 00:00 03/28/24 20:00 03/28/24 22:00 Temperature Pulse Rate 63 61 Respiratory Rate Blood Pressure Pulse Oximetry 96 Oxygen Delivery Oxygen Flow Rate 2 03/29/24 00:00 03/29/24 01:55 03/29/24 04:00 Temperature Pulse Rate 62 63 Respiratory Rate 22 H Blood Pressure Pulse Oximetry 100 Oxygen Delivery Oxygen Flow Rate 2 03/29/24 04:19 03/29/24 02:00 03/29/24 04:00 Temperature 36.8 C Pulse Rate 63 62 60 Respiratory Rate 20 Blood Pressure 115/66 Pulse Oximetry 100 Oxygen Delivery Oxygen Flow Rate 03/29/24 06:00 03/29/24 06:50 03/29/24 06:50 Temperature Pulse Rate 58 L 60 60 Respiratory Rate 18 18 Blood Pressure Pulse Oximetry 98 Oxygen Delivery Nasal Cannula Oxygen Flow Rate 3 03/29/24 07:00 03/29/24 08:00 Temperature 36.8 C Pulse Rate 62 60 Respiratory Rate 18 20 Blood Pressure 104/58 L Pulse Oximetry 100 Oxygen Delivery Oxygen Flow Rate Intake/Output Intake/Output: Intake & Output 03/26/24 03/27/24 03/28/24 03/29/24 23:59 23:59 23:59 23:59 Intake Total 1703.3 3174.5 2700.0 647 Output Total 475 2675 5150 500 Balance 1228.3 499.5 -2450.0 147 Meds/Results Medications: Active Medications Generic Name Dose Route Start Last Admin Trade Name Crystal PRN Reason Stop Dose Admin Acetaminophen 650 mg 03/25/24 15:48 03/28/24 20:31 Acetaminophen 325 Mg Tablet PO 650 mg Q4H PRN Administration Mild Pain (1-3) or Fever Hydrocodone Bitart/Acetaminophen 1 tab 03/28/24 23:07 03/29/24 04:44 Hydrocodone/Acetaminophen (*Crx) 5-325 Mg Tablet PO 1 tab Q6H PRN Administration Pain rated 4-10 Albuterol/Ipratropium 3 ml 03/28/24 08:00 03/29/24 06:50 Ipratropium 0.5 Mg/Albuterol Sulfate 2.5 Mg Ampul.Neb 3 Ml INHALATION 3 ml Q6HRT CARYL Administration Collagenase 1 applic 03/26/24 09:00 03/28/24 11:17 Collagenase Oint 30 Gm Tube TOPICAL Not Given [facility] Enoxaparin Sodium 40 mg 03/26/24 09:00 03/27/24 08:13 Enoxaparin 40 Mg/0.4 Ml Syringe SUB-Q 40 mg DAILY CARYL Administration Ampicillin Sodium/Sulbactam Sodium 3 gm in 100 mls @ 200 mls/hr 03/25/24 23:00 03/29/24 06:24 Unasyn 3 Gm/Ns 100 Ml IVPB 200 mls/hr Q6HR CARYL Administration Levothyroxine Sodium 100 mcg 03/27/24 12:50 03/29/24 06:24 Levothyroxine Sodium Inj 100 Mcg/5 Ml Vial IV PUSH 100 mcg DAILY@0630 CARYL Administration Radiology Results: ITS Impressions Chest X-Ray 03/25/24 14:02 IMPRESSION: 1. Persistent diffuse reticular and mild airspace opacities throughout both lungs consistent with multifocal pneumonia which appears to progressed in the right upper lung zone. Modified Barium Swallow 03/27/24 13:11 IMPRESSION: Oropharyngeal dysphagia with 2 episodes of laryngeal penetration and trace silent aspiration. Please correlate with speech pathologist findings and specific feeding recommendations. Labs Labs: Laboratory Results - last 24 hr 03/28/24 03/28/24 03/28/24 13:19 16:47 23:33 POC Capillary Glucose 76 84 106 H Quality VTE Prophylaxis VTE prophylaxis: pharmacologic ordered
[2024-03-29 12:36] LABS: Glucose Point of Care 111 mg/dl (65-105)
[2024-03-29 17:24] LABS: Pneumococcal Antigen Urine NOT DETECTED
[2024-03-29] MEDS: COLLAGENASE OINT 30 GM TUBE 1 APPLIC TOPICAL (18:00)
[2024-03-29 18:03] LABS: Glucose Point of Care 137 mg/dl (65-105)
[2024-03-30] VITALS (25 sets, daily range): BP systolic 101–121; BP diastolic 59–64; PULSE 58–92; RESP 14–20; TEMP 36.5–36.8; O2SAT 94–100
[2024-03-30] MEDS: IPRATROPIUM 0.5 MG/ALBUTEROL SULFATE 2.5 MG AMPUL.NEB 3 ML INHALATION ×4 (03:28→21:01)
[2024-03-30] MEDS: AMPICILLIN SULB 3 GM/NS 100 ML 3 GM/100 ML VIAL IVPB ×3 (05:40→17:55)
[2024-03-30] MEDS: LEVOTHYROXINE SODIUM INJ 100 MCG/5 ML VIAL IV PUSH (05:40)
[2024-03-30 07:43] LABS: Glucose Point of Care 117 mg/dl (65-105)
[2024-03-30 08:18] LABS: Glucose Point of Care 115 mg/dl (65-105)
[2024-03-30] MEDS: HYDROcodone/acetaminophen (*CRX) 5-325 MG TABLET 1 TAB PO ×2 (08:22→20:12)
--- NOTE | 2024-03-30 11:27 | PCNFU ---
Nutrition Follow-Up Complete: Inadequate energy intake related to NPO status as evidenced by diet order and level of alertness Goal: Diet order Goal has been met. No new goal. Pt current nutrition is Jevity 1.5 at 55 ml/hr. Last recorded weight is 60.5 kg, down from 62 kg on admit. Bowel Motility: No BM reported since admit. Recommend GI stimulate. Labs Reviewed: No new labs to report. Meds Noted:Lovenox, Synthroid, [place]. Skin: unstageable pressure ulcer-sacrum. Additional Notes: Patient had PEG placed 03/27. Tube feedings of Jevity 1.5 being tolerated at 55 ml/hr. Total Nutrition: 1815 kcal/77 gm protein/ 917 ml water. Flush 100 ml q 4 hours. Recommend protein modular of [place] BID with flush for additional protein needs 2/2 to wounds. Monitor for diet order, tolerance, intake, wt, skin, labs. Follow up every Tuesday and Tuesday.
--- NOTE | 2024-03-30 11:49 | P.PNIM_ITS ---
Progress Note: A&P Assessment and Plan (1) Acute respiratory failure with hypoxia and hypercapnia: Code(s): J96.01 - Acute respiratory failure with hypoxia; J96.02 - Acute respiratory failure with hypercapnia Status: Acute Assessment and Plan: Patient returns after about 1 week at the [place] [facility] for SOB and resp distress. ABG 7. on 15L. BiPAP started. CXR showing persistent diffuse reticular and mild airspace opacities t/o both lungs with progression in the RUL Repeat ABG better. Related to bacterial PNA or more likely aspiration PNA (although unlikely for aspiration in the RUL) Continue BiPAP at night and with naps. Wean O2 as tolerated. Oxygen requirement has improved (2) Multifocal pneumonia: Code(s): J18.9 - Pneumonia, unspecified organism Status: Acute Assessment and Plan: He completed cefepime and azithro here before discharge on 03/18 Per RN, patient was even treated with cefepime and levaquin at the [place] [facility] prior to being re-admitted. MRSA nasal swab negative Suspect either ESBL PNA or MRSA PNA or pneumonitis from recurrent aspiration. Aspiration possible given the hx from the brother Continue Unasyn and Vanco. Consider meropenem if no improvement. Spoke with Speech therapist. MBS showing patient is aspirating and she recommends NPO. Discussed with patient about the need for GTube. Do not believe a temporary Dobhoff is warranted due to the frequent hospitalizations All questions answered. GI consult for GTube placement. Continue IV fluids Remains on Unasyn (3) Dysphagia: Code(s): R13.10 - Dysphagia, unspecified Status: Acute Assessment and Plan: Status post PEG tube placement 03/28/2024 tolerating tube feeds (4) Chronic obstructive pulmonary disease: Code(s): J44.9 - Chronic obstructive pulmonary disease, unspecified Status: Acute Assessment and Plan: Stable on current medications, will continue current treatment (5) Hypothyroidism: Code(s): E03.9 - Hypothyroidism, unspecified Status: Acute Assessment and Plan: History of thyroid cancer status post chemotherapy and radiation TSH 58 on 03/08. Was on levothyroxine 175 mcg daily on last admission and dose was increased to 187.5 mcg daily. Start levothyroxine IV at 100mcg. With hx of thyroid CA, TSH needs to be undetectable. Stable on current medications, will continue current treatment Plan Abdominal pain: Will be evaluated with x-ray DVT prophylaxis - Lovenox which will be resumed Code status - full Subjective Date/time seen: 03/30/24 11:49 Interval history: Complains of abdominal pain. Some nausea no vomiting. Tolerating tube feeds. G tube was placed 2 days ago. Review of Systems Review of Systems: All systems reviewed & are unremarkable except as noted in HPI and below Exam Narrative: General: Alert and oriented x3 Thin, frail, not in acute distress HEENT: Normocephalic, atraumatic. PERRL, EOMI. Sclera anicteric. Neck: Supple. No obvious JVD. Respiratory:. Lung sounds coarse with scattered rhonchi and are equally t ransmitted anteriorly and at flanks. No respiratory distress Cardiovascular: Regular rate and rhythm with S1-S2. Gastrointestinal: PEG tube in situ, abdomen is soft, tender epigastric area, and nondistended with positive bowel sounds. Skin: Warm and dry. Generalized pallor. Legs are dry and scaly. Extremities: No cyanosis, clubbing, or edema. Radial and pedal pulses intact. No palpable knots or cords. Neurological: Alert and oriented. Cranial nerves 2-12 are grossly intact. No gross focal deficits to casual conversation. Psychiatric: He is pleasant and cooperative with appropriate mood. Objective Data Vital Signs Vital Signs: Vital Signs - 24 hr 03/29/24 12:48 03/29/24 12:58 03/29/24 12:00 Temperature Pulse Rate 62 61 Respiratory Rate 18 18 Blood Pressure Pulse Oximetry 100 Oxygen Delivery Oxygen Flow Rate 2 03/29/24 16:00 03/29/24 12:00 03/29/24 12:00 Temperature 97.9 F 98 F Pulse Rate 60 101 H 62 Respiratory Rate 22 H 2 L Blood Pressure 115/66 110/66 Pulse Oximetry 100 100 Oxygen Delivery Oxygen Flow Rate 03/29/24 14:00 03/29/24 16:00 03/29/24 18:00 Temperature Pulse Rate 67 62 59 L Respiratory Rate Blood Pressure Pulse Oximetry Oxygen Delivery Oxygen Flow Rate 03/29/24 16:00 03/29/24 19:37 03/29/24 20:00 Temperature 98 F Pulse Rate 60 Respiratory Rate 18 Blood Pressure 114/65 Pulse Oximetry 100 97 97 Oxygen Delivery Oxygen Flow Rate 2 2 03/29/24 21:33 03/29/24 21:36 03/29/24 21:48 Temperature Pulse Rate 62 62 62 Respiratory Rate 18 18 Blood Pressure Pulse Oximetry 98 Oxygen Delivery Nasal Cannula Oxygen Flow Rate 2 03/29/24 23:33 03/29/24 20:00 03/29/24 22:00 Temperature 98.0 F Pulse Rate 62 60 65 Respiratory Rate 14 Blood Pressure 102/63 Pulse Oximetry 95 Oxygen Delivery Oxygen Flow Rate 03/30/24 00:00 03/30/24 00:00 03/30/24 02:00 Temperature Pulse Rate 59 L 92 Respiratory Rate Blood Pressure Pulse Oximetry 95 Oxygen Delivery Oxygen Flow Rate 2 03/30/24 03:28 03/30/24 03:37 03/30/24 04:00 Temperature Pulse Rate 61 62 Respiratory Rate 18 18 Blood Pressure Pulse Oximetry 95 Oxygen Delivery Oxygen Flow Rate 2 03/30/24 04:00 03/30/24 04:00 03/30/24 06:00 Temperature 98.0 F Pulse Rate 58 L 65 65 Respiratory Rate 14 Blood Pressure 105/59 L Pulse Oximetry 97 Oxygen Delivery Oxygen Flow Rate 03/30/24 07:59 03/30/24 08:00 03/30/24 08:12 Temperature Pulse Rate 65 62 64 Respiratory Rate 18 18 Blood Pressure Pulse Oximetry 97 Oxygen Delivery Nasal Cannula Oxygen Flow Rate 2 03/30/24 08:00 03/30/24 11:11 Temperature 98.3 F 97.7 F Pulse Rate 65 64 Respiratory Rate 20 18 Blood Pressure 121/61 101/61 Pulse Oximetry 100 98 Oxygen Delivery Oxygen Flow Rate Intake/Output Intake/Output: Intake & Output 03/27/24 03/28/24 03/29/24 03/30/24 23:59 23:59 23:59 23:59 Intake Total 3174.5 2700.0 1896 1117 Output Total 2675 5150 1400 900 Balance 499.5 -2450.0 496 217 Meds/Results Medications: Active Medications Generic Name Dose Route Start Last Admin Trade Name Freq PRN Reason Stop Dose Admin Acetaminophen 650 mg 03/25/24 15:48 03/28/24 20:31 Acetaminophen 325 Mg Tablet PO 650 mg Q4H PRN Administration Mild Pain (1-3) or Fever Hydrocodone Bitart/Acetaminophen 1 tab 03/28/24 23:07 03/30/24 08:22 Hydrocodone/Acetaminophen (*Crx) 5-325 Mg Tablet PO 1 tab Q6H PRN Administration Pain rated 4-10 Albuterol/Ipratropium 3 ml 03/28/24 08:00 03/30/24 07:58 Ipratropium 0.5 Mg/Albuterol Sulfate 2.5 Mg Ampul.Neb 3 Ml INHALATION 3 ml Q6HRT CARYL Administration Collagenase 1 applic 03/26/24 09:00 03/29/24 18:00 Collagenase Oint 30 Gm Tube TOPICAL 1 applic QAM CARYL Administration Enoxaparin Sodium 40 mg 03/26/24 09:00 03/27/24 08:13 Enoxaparin 40 Mg/0.4 Ml Syringe SUB-Q 40 mg DAILY CARYL Administration Ampicillin Sodium/Sulbactam Sodium 3 gm in 100 mls @ 200 mls/hr 03/25/24 23:00 03/30/24 05:40 Unasyn 3 Gm/Ns 100 Ml IVPB 200 mls/hr Q6HR CARYL Administration Levothyroxine Sodium 100 mcg 03/27/24 12:50 03/30/24 05:40 Levothyroxine Sodium Inj 100 Mcg/5 Ml Vial IV PUSH 100 mcg DAILY@0630 CARYL Administration Radiology Results: ITS Impressions Chest X-Ray 03/25/24 14:02 IMPRESSION: 1. Persistent diffuse reticular and mild airspace opacities throughout both lungs consistent with multifocal pneumonia which appears to progressed in the right upper lung zone. Modified Barium Swallow 03/27/24 13:11 IMPRESSION: Oropharyngeal dysphagia with 2 episodes of laryngeal penetration and trace silent aspiration. Please correlate with speech pathologist findings and specific feeding recommendations. Labs Labs: Laboratory Results - last 24 hr 03/25/24 03/29/24 03/29/24 23:09 11:35 17:29 POC Capillary Glucose 111 H 137 H Urine Pneumococcal Ag Not detected 03/29/24 03/30/24 23:23 08:07 POC Capillary Glucose 117 H 115 H Urine Pneumococcal Ag
[2024-03-30 11:52] LABS: Glucose Point of Care 137 mg/dl (65-105)
[2024-03-30 12:15] LABS: Basophils Percent Auto 0.2 % (0.2-1.2); Eosinophils Absolute Auto 0.1 K/mm3 (0-0.3); Eosinophils Percent Auto 0.6 % (0-4.4); Hematocrit 30.5 % (42.0-52.0); Hemoglobin 9.8 g/dL (14.0-18.0); Immature Granulocyte Absolute 0.04 K/mm3 (0.00-0.031); Immature Granulocyte Percent A 0.5 % (0-0.5); Lymphocytes Absolute Auto 0.59 K/mm3 (0.9-3.2); Lymphocytes Percent Auto 7.2 % (18.3-44.2); Mean Corpuscular HGB Conc 32.1 g/dl (32-36); Mean Corpuscular Hemoglobin 28.4 pg (26-34); Mean Corpuscular Volume 88.4 fl (80-100); Mean Platelet Volume 8.7 fl (7.4-10.4); Monocytes Absolute Auto 0.6 K/mm3 (0.1-0.6); Monocytes Percent Auto 7.6 % (2.6-8.5); Neutrophils Absolute Auto 6.8 K/mm3 (1.3-6.7); Neutrophils Percent Auto 83.9 % (45.5-73.1); Platelet Count Result 211 k/mm3 (150-375); Red Blood Count 3.45 M/mm3 (4.6-6.20); Red Cell Distribution Width 18.4 % (11.5-14.5); White Blood Count 8.2 K/mm3 (4.5-10.0)
[2024-03-30 12:33] LABS: Alanine Aminotransferase 26 U/L (6-50); Alkaline Phosphatase 86 U/L (38-126); Anion Gap 2 mmol/L (4-12); Aspartate Amino Transferase 21 U/L (17-59); Bilirubin,Total 0.6 mg/dL (0.2-1.3); Blood Urea Nitrogen 12 mg/dL (9-20); Calcium 8.1 mg/dL (8.4-10.2); Carbon Dioxide 37 mmol/L (22-30); Chloride 95 mmol/L (98-107); Estimated CRCL calculation 118 ml/min; Estimated Glomerular Filt Rate > 60; Glucose 118 mg/dL (65-110); Potassium 4.2 mmol/L (3.4-5.0); Sodium 134 mmol/L (137-145)
[2024-03-30] MEDS: guaiFENesin 200 MG/10 ML UDC 400 MG PO ×2 (13:27→17:55)
[2024-03-30] MEDS: MAGNESIUM HYDROXIDE SUSP 30 ML UDC FEED TUBE (13:27)
--- NOTE | 2024-03-30 13:45 | PCPTNOTE ---
Patient declined PT at this time. Patint states he is not feeling well. Patient states he is constipated and having pain in his abdomen. PT will continue to follow per plan of care.
[2024-03-30 16:44] LABS: Glucose Point of Care 99 mg/dl (65-105)
[2024-03-30] MEDS: POLYSACCHARIDE IRON COMPLEX 150 MG CAPSULE FEED TUBE (17:55)
[2024-03-30] MEDS: LANSOPRAZOLE ODT 30 MG TAB.RAP.DR FEED TUBE (17:55)
[2024-03-30] MEDS: SACCHAROMYCES BOULARDII 250 MG CAPSULE FEED TUBE (17:55)
[2024-03-30] MEDS: COLLAGENASE OINT 30 GM TUBE 1 APPLIC TOPICAL (17:56)
[2024-03-30] MEDS: ESCITALOPRAM OXALATE 10 MG TABLET 20 MG FEED TUBE (20:13)
[2024-03-30 20:33] LABS: Glucose Point of Care 100 mg/dl (65-105)
[2024-03-31] VITALS (19 sets, daily range): BP systolic 100–124; BP diastolic 60–67; PULSE 59–67; RESP 12–18; TEMP 36.6–37; O2SAT 97–100
[2024-03-31] MEDS: AMPICILLIN SULB 3 GM/NS 100 ML 3 GM/100 ML VIAL IVPB ×4 (01:06→17:33)
[2024-03-31] MEDS: IPRATROPIUM 0.5 MG/ALBUTEROL SULFATE 2.5 MG AMPUL.NEB 3 ML INHALATION ×3 (01:59→21:30)
[2024-03-31 05:26] LABS: Basophils Percent Auto 0.2 % (0.2-1.2); Eosinophils Absolute Auto 0.1 K/mm3 (0-0.3); Eosinophils Percent Auto 1.4 % (0-4.4); Hematocrit 31.8 % (42.0-52.0); Hemoglobin 9.9 g/dL (14.0-18.0); Immature Granulocyte Absolute 0.03 K/mm3 (0.00-0.031); Immature Granulocyte Percent A 0.4 % (0-0.5); Lymphocytes Absolute Auto 0.62 K/mm3 (0.9-3.2); Lymphocytes Percent Auto 7.4 % (18.3-44.2); Mean Corpuscular HGB Conc 31.1 g/dl (32-36); Mean Corpuscular Volume 90.1 fl (80-100); Mean Platelet Volume 8.7 fl (7.4-10.4); Monocytes Absolute Auto 0.6 K/mm3 (0.1-0.6); Monocytes Percent Auto 7.5 % (2.6-8.5); Neutrophils Percent Auto 83.1 % (45.5-73.1); Platelet Count Result 206 k/mm3 (150-375); Red Blood Count 3.53 M/mm3 (4.6-6.20); Red Cell Distribution Width 18.6 % (11.5-14.5); White Blood Count 8.4 K/mm3 (4.5-10.0)
[2024-03-31 05:39] LABS: Alanine Aminotransferase 25 U/L (6-50); Albumin Level 3.2 g/dL (3.5-5.1); Alkaline Phosphatase 97 U/L (38-126); Anion Gap 2 mmol/L (4-12); Aspartate Amino Transferase 23 U/L (17-59); Bilirubin,Total 0.6 mg/dL (0.2-1.3); Blood Urea Nitrogen 17 mg/dL (9-20); Calcium 8.1 mg/dL (8.4-10.2); Carbon Dioxide 34 mmol/L (22-30); Chloride 95 mmol/L (98-107); Estimated CRCL calculation 114 ml/min; Estimated Glomerular Filt Rate > 60; Glucose 102 mg/dL (65-110); Magnesium 2.3 mg/dL (1.6-2.3); Potassium 4.5 mmol/L (3.4-5.0); Sodium 131 mmol/L (137-145)
[2024-03-31] MEDS: LEVOTHYROXINE SODIUM 25 MCG TABLET FEED TUBE (06:47)
[2024-03-31] MEDS: LEVOTHYROXINE SODIUM 12.5 MCG TABLET FEED TUBE (06:47)
[2024-03-31] MEDS: LEVOTHYROXINE SODIUM 150 MCG TABLET FEED TUBE (06:47)
[2024-03-31 08:11] LABS: Glucose Point of Care 77 mg/dl (65-105)
[2024-03-31] MEDS: FLUTICASONE/UMECLIDIN/VILANTER 100-62.5-25 MCG ELLIPTA 1 PUFF INHALATION (08:28)
[2024-03-31] MEDS: guaiFENesin 200 MG/10 ML UDC 400 MG PO ×3 (09:19→17:27)
[2024-03-31] MEDS: MAGNESIUM HYDROXIDE SUSP 30 ML UDC FEED TUBE (09:19)
[2024-03-31] MEDS: polyethylene glycoL 3350 17 GM POWD.PACK FEED TUBE (09:19)
[2024-03-31] MEDS: POLYSACCHARIDE IRON COMPLEX 150 MG CAPSULE FEED TUBE ×2 (09:20→17:26)
[2024-03-31] MEDS: SACCHAROMYCES BOULARDII 250 MG CAPSULE FEED TUBE ×2 (09:20→17:26)
[2024-03-31] MEDS: ASPIRIN 81 MG CHEWABLE TABLET FEED TUBE (09:20)
[2024-03-31] MEDS: THERAPEUTIC MULTIVITAMINS/MINERALS TAB (*BKC) 1 TABLET FEED TUBE (09:20)
[2024-03-31] MEDS: SIMVASTATIN 20 MG TABLET FEED TUBE (09:20)
[2024-03-31] MEDS: LANSOPRAZOLE ODT 30 MG TAB.RAP.DR FEED TUBE ×2 (09:20→17:26)
[2024-03-31] MEDS: HYDROcodone/acetaminophen (*CRX) 5-325 MG TABLET 1 TAB PO ×2 (09:33→22:18)
--- NOTE | 2024-03-31 12:02 | PM.IMPN ---
Progress Note: A&P Assessment and Plan (1) Acute respiratory failure with hypoxia and hypercapnia: Code(s): J96.01 - Acute respiratory failure with hypoxia; J96.02 - Acute respiratory failure with hypercapnia Status: Acute Assessment and Plan: [facility] and resp distress. ABG 7. on 15L. BiPAP started. CXR showing persistent diffuse reticular and mild airspace opacities t/o both lungs with progression in the RUL Repeat ABG better. Related to bacterial PNA or more likely aspiration PNA (although unlikely for aspiration in the RUL) Continue BiPAP at night and with naps. Wean O2 as tolerated. Oxygen requirement has improved (2) Multifocal pneumonia: Code(s): J18.9 - Pneumonia, unspecified organism Status: Acute Assessment and Plan: He completed cefepime and azithro here before discharge on 03/18 Per RN, patient was even treated with cefepime and [facility]vaquin [facility] to being re-admitted. MRSA nasal swab negative Suspect either ESBL PNA or MRSA PNA or pneumonitis from recurrent aspiration. Aspiration possible given the hx from the brother Continue Unasyn and Vanco. Consider meropenem if no improvement. Spoke with Speech therapist. MBS showing patient is aspirating and she recommends NPO. Discussed with patient about the need for GTube. Do not believe a temporary Dobhoff is warranted due to the frequent hospitalizations All questions answered. GI consult for GTube placement. Continue IV fluids Remains on Unasyn (3) Dysphagia: Code(s): R13.10 - Dysphagia, unspecified Status: Acute Assessment and Plan: Status post PEG tube placement 03/28/2024 tolerating tube feeds (4) Chronic obstructive pulmonary disease: Code(s): J44.9 - Chronic obstructive pulmonary disease, unspecified Status: Acute Assessment and Plan: Stable on current medications, will continue current treatment (5) Hypothyroidism: Code(s): E03.9 - Hypothyroidism, unspecified Status: Acute Assessment and Plan: History of thyroid cancer status post chemotherapy and radiation TSH 58 on 03/08. Was on levothyroxine 175 mcg daily on last admission and dose was increased to 187.5 mcg daily. Start levothyroxine IV at 100mcg. With hx of thyroid CA, TSH needs to be undetectable. Stable on current medications, will continue current treatment Plan Abdominal pain: X-ray abdomen with findings of constipation. Started bowel regimen and now having bowel movement. Abdominal pain has improved with this. DVT prophylaxis - Lovenox which will be resumed Code status - full Subjective Date/time seen: 03/31/24 12:02 Interval history: Started having bowel movement. Belly pain has improved. Tolerating tube feeds. Breathing is improved. Review of Systems Review of Systems: All systems reviewed & are unremarkable except as noted in HPI and below Exam Narrative: General: Alert and oriented x3 Thin, frail, not in acute distress HEENT: Normocephalic, atraumatic. PERRL, EOMI. Sclera anicteric. Neck: Supple. No obvious JVD. Respiratory:. Lung sounds coarse with scattered rhonchi and are equally transmitted anteriorly and at flanks. No respiratory distress Cardiovascular: Regular rate and rhythm with S1-S2. Gastrointestinal: PEG tube in situ, abdomen is soft, mild tenderness at the G-tube site, and nondistended with positive bowel sounds. Skin: Warm and dry. Generalized pallor. Legs are dry and scaly. Extremities: No cyanosis, clubbing, or edema. Radial and pedal pulses intact. No palpable knots or cords. Neurological: Alert and oriented. Cranial nerves 2-12 are grossly intact. No gross focal deficits to casual conversation. Psychiatric: He is pleasant and cooperative with appropriate mood. Objective Data Vital Signs Vital Signs: Vital Signs - 24 hr 03/30/24 14:56 03/30/24 14:00 03/30/24 15:25 Temperature 98.2 F Pulse Rate 65 63 65 Respiratory Rate 18 20 Blood Pressure 101/60 Pulse Oximetry 94 Oxygen Delivery Oxygen Flow Rate 03/30/24 15:06 03/30/24 16:00 03/30/24 18:00 Temperature Pulse Rate 62 70 68 Respiratory Rate 18 Blood Pressure Pulse Oximetry Oxygen Delivery Oxygen Flow Rate 03/30/24 16:00 03/30/24 20:26 03/30/24 21:01 Temperature 98.0 F Pulse Rate 68 64 Respiratory Rate 20 18 Blood Pressure 104/64 Pulse Oximetry 94 99 Oxygen Delivery Oxygen Flow Rate 2 03/30/24 21:03 03/30/24 21:10 03/30/24 20:00 Temperature Pulse Rate 64 68 Respiratory Rate 18 18 Blood Pressure Pulse Oximetry 98 98 Oxygen Delivery Nasal Cannula Oxygen Flow Rate 2 2 03/30/24 20:00 03/30/24 22:00 03/30/24 23:40 Temperature 98.0 F Pulse Rate 70 63 63 Respiratory Rate 20 Blood Pressure 113/63 Pulse Oximetry 98 Oxygen Delivery Oxygen Flow Rate 03/31/24 02:01 03/31/24 02:08 03/31/24 04:10 Temperature 98.0 F Pulse Rate 63 62 66 Respiratory Rate 18 18 18 Blood Pressure 124/65 Pulse Oximetry 100 Oxygen Delivery Oxygen Flow Rate 03/31/24 00:00 03/31/24 04:00 03/31/24 00:00 Temperature Pulse Rate 62 64 Respiratory Rate Blood Pressure Pulse Oximetry 99 Oxygen Delivery Oxygen Flow Rate 2 03/31/24 04:00 03/31/24 08:00 03/31/24 06:00 Temperature 98.0 F Pulse Rate 60 61 Respiratory Rate 12 Blood Pressure 104/60 Pulse Oximetry 100 99 Oxygen Delivery Oxygen Flow Rate 2 03/31/24 09:35 03/31/24 08:35 03/31/24 08:50 Temperature Pulse Rate 66 66 66 Respiratory Rate 18 18 18 Blood Pressure Pulse Oximetry 98 Oxygen Delivery Nasal Cannula Oxygen Flow Rate 2 Intake/Output Intake/Output: Intake & Output 03/28/24 03/29/24 03/30/24 03/31/24 23:59 23:59 23:59 23:59 Intake Total 2700.0 1896 2488 100 Output Total 5150 1400 2100 600 Balance -2450.0 496 388 -500 Meds/Results Medications: Active Medications Generic Name Dose Route Start Last Admin Trade Name Freq PRN Reason Stop Dose Admin Acetaminophen 650 mg 03/30/24 11:56 Acetaminophen Elixir 325 Mg/10.15 Ml Udc FEED TUBE Q6H PRN Pain Rated 1-3 Hydrocodone Bitart/Acetaminophen 1 tab 03/28/24 23:07 03/31/24 09:33 Hydrocodone/Acetaminophen (*Crx) 5-325 Mg Tablet PO 1 tab Q6H PRN Administration Pain rated 4-10 Albuterol 2 puff 03/30/24 11:56 Albuterol Sulfate (*Sp) Aerosol 1 Puff INHALATION Q4H PRN Shortness Of Breath Albuterol/Ipratropium 3 ml 03/28/24 08:00 03/31/24 08:27 Ipratropium 0.5 Mg/Albuterol Sulfate 2.5 Mg Ampul.Neb 3 Ml INHALATION 3 ml Q6HRT CARYL Administration Alprazolam 1 mg 03/30/24 11:56 Alprazolam (*Crx) 0.5 Mg Tablet FEED TUBE TID PRN anxiety Aspirin 81 mg 03/31/24 09:00 03/31/24 09:20 Aspirin 81 Mg Chewable Tablet FEED TUBE 81 mg DAILY CARYL Administration Baclofen 5 mg 03/30/24 11:56 Baclofen 5 Mg Tablet FEED TUBE TID PRN muscle spasms Bisacodyl 10 mg 03/30/24 11:56 Bisacodyl 10 Mg Suppository RECTAL DAILY PRN Constipation Collagenase 1 applic 03/26/24 09:00 03/30/24 17:56 Collagenase Oint 30 Gm Tube TOPICAL 1 applic QAM CARYL Administration Enoxaparin Sodium 40 mg 03/26/24 09:00 03/27/24 08:13 Enoxaparin 40 Mg/0.4 Ml Syringe SUB-Q 40 mg DAILY CARYL Administration Escitalopram Oxalate 20 mg 03/30/24 21:00 03/30/24 20:13 Escitalopram Oxalate 10 Mg Tablet FEED TUBE 20 mg QHS CARYL Administration Fluticasone/Umeclidinium/Vilanterol 1 puff 03/31/24 08:00 03/31/24 08:28 Fluticasone/Umeclidin/Vilanter 100-62.5-25 Mcg Ellipta INHALATION 1 puff DAILYRT CARYL Administration Guaifenesin 400 mg 03/30/24 13:00 03/31/24 09:19 Guaifenesin 200 Mg/10 Ml Udc PO 04/02/24 17:01 400 mg TID CARYL Administration Ampicillin Sodium/Sulbactam Sodium 3 gm in 100 mls @ 200 mls/hr 03/25/24 23:00 03/31/24 06:46 Unasyn 3 Gm/Ns 100 Ml IVPB 200 mls/hr Q6HR CARYL Administration Lansoprazole 30 mg 03/30/24 17:00 03/31/24 09:20 Lansoprazole Odt 30 Mg Tab.Rap.Dr FEED TUBE 30 mg BID CARYL Administration Levothyroxine Sodium 12.5 mcg 03/31/24 06:30 03/31/24 06:47 Levothyroxine Sodium 12.5 Mcg Tablet FEED TUBE 12.5 mcg DAILY@0630 CARYL Administration Levothyroxine Sodium 150 mcg 03/31/24 06:30 03/31/24 06:47 Levothyroxine Sodium 150 Mcg Tablet FEED TUBE 150 mcg DAILY@0630 CARYL Administration Levothyroxine Sodium 25 mcg 03/31/24 06:30 03/31/24 06:47 Levothyroxine Sodium 25 Mcg Tablet FEED TUBE 25 mcg DAILY@0630 CARYL Administration Magnesium Citrate 300 ml 03/30/24 11:56 Magnesium Citrate 300 Ml Btl FEED TUBE DAILY PRN Constipation Magnesium Hydroxide 30 ml 03/30/24 11:56 03/31/24 09:19 Magnesium Hydroxide Susp 30 Ml Udc FEED TUBE 30 ml DAILY PRN Administration Constipation Multivitamins/Calcium 1 tablet 03/31/24 09:00 03/31/24 09:20 Therapeutic Multivitamins/Minerals Tab (*Bkc) FEED TUBE 1 tablet DAILY CARYL Administration Nitroglycerin 1 spray 03/30/24 12:21 Nitroglycerin 0.4 Mg/[place] Oral Btl (*Bkc) TRANSLINGU Q5M PRN Chest Pain Non-Formulary Medication 4 mg 03/30/24 12:00 03/30/24 19:51 Naloxone XX 04/29/24 11:59 Not Given Q2M CARYL Polyethylene Glycol 17 gm 03/30/24 11:55 03/31/24 09:19 Polyethylene Glycol 3350 17 Gm Powd.Pack FEED TUBE 17 gm QAM PRN Administration Constipation Polysaccharide Iron Complex 150 mg 03/30/24 17:00 03/31/24 09:20 Polysaccharide Iron Complex 150 Mg Capsule FEED TUBE 150 mg BID CARYL Administration Saccharomyces Boulardii 250 mg 03/30/24 17:00 03/31/24 09:20 Saccharomyces Boulardii 250 Mg Capsule FEED TUBE 250 mg BID CARYL Administration Simvastatin 20 mg 03/31/24 09:00 03/31/24 09:20 Simvastatin 20 Mg Tablet FEED TUBE 20 mg DAILY CARYL Administration Radiology Results: ITS Impressions Chest X-Ray 03/25/24 14:02 IMPRESSION: 1. Persistent diffuse reticular and mild airspace opacities throughout both lungs consistent with multifocal pneumonia which appears to progressed in the right upper lung zone. Modified Barium Swallow 03/27/24 13:11 IMPRESSION: Oropharyngeal dysphagia with 2 episodes of laryngeal penetration and trace silent aspiration. Please correlate with speech pathologist findings and specific feeding recommendations. Abdomen X-Ray 03/30/24 14:02 IMPRESSION: 1. Large amount of colonic stool which could be seen with constipation. No bowel obstruction. Labs Labs: Laboratory Results - last 24 hr 03/30/24 03/30/24 03/30/24 12:09 16:42 20:22 WBC 8.2 RBC 3.45 L Hgb 9.8 L Hct 30.5 L MCV 88.4 MCH 28.4 MCHC 32.1 RDW 18.4 H Plt Count 211 MPV 8.7 Immature Gran % (Auto) 0.5 Neut % (Auto) 83.9 H Lymph % (Auto) 7.2 L [place] % (Auto) 7.6 Eos % (Auto) 0.6 Baso % (Auto) 0.2 Lymph # (Auto) 0.59 L [place] # (Auto) 0.6 Eos # (Auto) 0.1 Baso # (Auto) 0.0 Abs Immat Gran (auto) 0.04 H Absolute Neuts (auto) 6.8 H Absolute Nucleated RBC 0.000 Nucleated RBC % 0.0 Sodium 134 L Potassium 4.2 Chloride 95 L Carbon Dioxide 37 H Anion Gap 2 L BUN 12 Creatinine 0.40 L Estim Creat Clear Calc 118 Estimated GFR > 60 Glucose 118 H POC Capillary Glucose 99 100 Calcium 8.1 L Magnesium 2.0 Total Bilirubin 0.6 AST 21 ALT 26 Alkaline Phosphatase 86 Total Protein 6.0 L Albumin 3.0 L 03/31/24 03/31/24 05:16 07:55 WBC 8.4 RBC 3.53 L Hgb 9.9 L Hct 31.8 L MCV 90.1 MCH 28.0 MCHC 31.1 L RDW 18.6 H Plt Count 206 MPV 8.7 Immature Gran % (Auto) 0.4 Neut % (Auto) 83.1 H Lymph % (Auto) 7.4 L [place] % (Auto) 7.5 Eos % (Auto) 1.4 Baso % (Auto) 0.2 Lymph # (Auto) 0.62 L [place] # (Auto) 0.6 Eos # (Auto) 0.1 Baso # (Auto) 0.0 Abs Immat Gran (auto) 0.03 Absolute Neuts (auto) 7.0 H Absolute Nucleated RBC 0.000 Nucleated RBC % 0.0 Sodium 131 L Potassium 4.5 Chloride 95 L Carbon Dioxide 34 H Anion Gap 2 L BUN 17 Creatinine 0.40 L Estim Creat Clear Calc 114 Estimated GFR > 60 Glucose 102 POC Capillary Glucose 77 Calcium 8.1 L Magnesium 2.3 Total Bilirubin 0.6 AST 23 ALT 25 Alkaline Phosphatase 97 Total Protein 6.0 L Albumin 3.2 L
[2024-03-31 12:39] LABS: Glucose Point of Care 93 mg/dl (65-105)
[2024-03-31 12:39] LABS: Glucose Point of Care 110 mg/dl (65-105)
[2024-03-31] MEDS: COLLAGENASE OINT 30 GM TUBE 1 APPLIC TOPICAL (13:07)
--- NOTE | 2024-03-31 15:16 | PC.NURSE ---
This patient, Cecilio Bergeron, was transferred to [facility] on 03/31/24 at 1510. Personal belongings sent with patient. Report given to Candace SMITH. Appropriate documentation sent with patient.
--- NOTE | 2024-03-31 15:46 | PCRCNOTE ---
Window of time for administration has passed. See next scheduled administration.
[2024-03-31 16:44] LABS: Glucose Point of Care 126 mg/dl (65-105)
[2024-03-31 19:54] LABS: Mycoplasma IgM Antibody Titer 96 U/mL
[2024-03-31 21:54] LABS: Legionella pneumophila Ag Ur NOT DETECTED
[2024-03-31] MEDS: ESCITALOPRAM OXALATE 10 MG TABLET 20 MG FEED TUBE (21:59)
[2024-03-31 22:50] LABS: Glucose Point of Care 108 mg/dl (65-105)
[2024-04-01] VITALS (17 sets, daily range): BP systolic 104–111; BP diastolic 59–68; PULSE 55–97; RESP 16–18; TEMP 36.7; O2SAT 95–99
[2024-04-01] MEDS: AMPICILLIN SULB 3 GM/NS 100 ML 3 GM/100 ML VIAL IVPB ×3 (00:10→11:25)
[2024-04-01] MEDS: IPRATROPIUM 0.5 MG/ALBUTEROL SULFATE 2.5 MG AMPUL.NEB 3 ML INHALATION ×4 (03:05→20:28)
[2024-04-01] MEDS: LEVOTHYROXINE SODIUM 12.5 MCG TABLET FEED TUBE (06:14)
[2024-04-01] MEDS: LEVOTHYROXINE SODIUM 150 MCG TABLET FEED TUBE (06:14)
[2024-04-01] MEDS: LEVOTHYROXINE SODIUM 25 MCG TABLET FEED TUBE (06:14)
[2024-04-01 06:39] LABS: Glucose Point of Care 123 mg/dl (65-105)
[2024-04-01 06:39] LABS: Glucose Point of Care 127 mg/dl (65-105)
[2024-04-01 06:46] LABS: Basophils Percent Auto 0.4 % (0.2-1.2); Eosinophils Absolute Auto 0.1 K/mm3 (0-0.3); Hematocrit 30.8 % (42.0-52.0); Hemoglobin 9.7 g/dL (14.0-18.0); Immature Granulocyte Absolute 0.03 K/mm3 (0.00-0.031); Immature Granulocyte Percent A 0.5 % (0-0.5); Lymphocytes Percent Auto 10.7 % (18.3-44.2); Mean Corpuscular HGB Conc 31.5 g/dl (32-36); Monocytes Absolute Auto 0.5 K/mm3 (0.1-0.6); Monocytes Percent Auto 8.2 % (2.6-8.5); Neutrophils Absolute Auto 4.4 K/mm3 (1.3-6.7); Neutrophils Percent Auto 78.2 % (45.5-73.1); Platelet Count Result 212 k/mm3 (150-375); Red Blood Count 3.46 M/mm3 (4.6-6.20); Red Cell Distribution Width 18.3 % (11.5-14.5); White Blood Count 5.6 K/mm3 (4.5-10.0)
[2024-04-01] MEDS: FLUTICASONE/UMECLIDIN/VILANTER 100-62.5-25 MCG ELLIPTA 1 PUFF INHALATION (06:55)
[2024-04-01 07:01] LABS: Alanine Aminotransferase 21 U/L (6-50); Albumin Level 3.1 g/dL (3.5-5.1); Alkaline Phosphatase 93 U/L (38-126); Anion Gap -1 mmol/L (4-12); Aspartate Amino Transferase 21 U/L (17-59); Bilirubin,Total 0.6 mg/dL (0.2-1.3); Blood Urea Nitrogen 17 mg/dL (9-20); Calcium 7.9 mg/dL (8.4-10.2); Carbon Dioxide 37 mmol/L (22-30); Chloride 93 mmol/L (98-107); Estimated CRCL calculation 118 ml/min; Estimated Glomerular Filt Rate > 60; Glucose 106 mg/dL (65-110); Magnesium 2.3 mg/dL (1.6-2.3); Potassium 4.5 mmol/L (3.4-5.0); Sodium 129 mmol/L (137-145)
[2024-04-01] MEDS: ENOXAPARIN 40 MG/0.4 ML SYRINGE SUB-Q (09:49)
[2024-04-01] MEDS: guaiFENesin 200 MG/10 ML UDC 400 MG PO ×3 (09:52→17:14)
[2024-04-01] MEDS: SACCHAROMYCES BOULARDII 250 MG CAPSULE FEED TUBE ×2 (09:53→17:15)
[2024-04-01] MEDS: POLYSACCHARIDE IRON COMPLEX 150 MG CAPSULE FEED TUBE ×2 (09:53→17:15)
[2024-04-01] MEDS: LANSOPRAZOLE ODT 30 MG TAB.RAP.DR FEED TUBE ×2 (09:54→17:15)
[2024-04-01] MEDS: SIMVASTATIN 20 MG TABLET FEED TUBE (09:54)
[2024-04-01] MEDS: THERAPEUTIC MULTIVITAMINS/MINERALS TAB (*BKC) 1 TABLET FEED TUBE (09:54)
[2024-04-01] MEDS: ASPIRIN 81 MG CHEWABLE TABLET FEED TUBE (09:54)
[2024-04-01] MEDS: COLLAGENASE OINT 30 GM TUBE 1 APPLIC TOPICAL (09:55)
[2024-04-01 11:40] LABS: Glucose Point of Care 97 mg/dl (65-105)
--- NOTE | 2024-04-01 12:10 | P.PNIM_ITS ---
Progress Note: A&P Assessment and Plan (1) Acute respiratory failure with hypoxia and hypercapnia: Code(s): J96.01 - Acute respiratory failure with hypoxia; J96.02 - Acute respiratory failure with hypercapnia Status: Acute Assessment and Plan: Patient returns after about 1 [facility] for SOB and resp distress. ABG 7. on 15L. BiPAP started. CXR showing persistent diffuse reticular and mild airspace opacities t/o both lungs with progression in the RUL Repeat ABG better. Related to bacterial PNA or more likely aspiration PNA (although unlikely for aspiration in the RUL) Continue BiPAP at night and with naps. Wean O2 as tolerated. Oxygen requirement has improved (2) Multifocal pneumonia: Code(s): J18.9 - Pneumonia, unspecified organism Status: Acute Assessment and Plan: He completed cefepime and azithro here before discharge on 03/18 Per RN, patient was even treated with cefepime and levaquin at the retirement prior to being re-admitted. MRSA nasal swab negative Suspect either ESBL PNA or MRSA PNA or pneumonitis from recurrent aspiration. Aspiration possible given the hx from the brother Continue Unasyn and Vanco. Consider meropenem if no improvement. Spoke with Speech therapist. MBS showing patient is aspirating and she recommends NPO. Discussed with patient about the need for GTube. Do not believe a temporary Dobhoff is warranted due to the frequent hospitalizations All questions answered. GI consult for GTube placement. Continue IV fluids Remains on Unasyn days 7 will switch to oral (3) Dysphagia: Code(s): R13.10 - Dysphagia, unspecified Status: Acute Assessment and Plan: Status post PEG tube placement 03/28/2024 tolerating tube feeds (4) Chronic obstructive pulmonary disease: Code(s): J44.9 - Chronic obstructive pulmonary disease, unspecified Status: Acute Assessment and Plan: Stable on current medications, will continue current treatment (5) Hypothyroidism: Code(s): E03.9 - Hypothyroidism, unspecified Status: Acute Assessment and Plan: History of thyroid cancer status post chemotherapy and radiation TSH 58 on 03/08. Was on levothyroxine 175 mcg daily on last admission and dose was increased to 187.5 mcg daily. Start levothyroxine IV at 100mcg. With hx of thyroid CA, TSH needs to be undetectable. Stable on current medications, will continue current treatment Plan Abdominal pain: X-ray abdomen with findings of constipation. Started bowel regimen and now having bowel movement. Abdominal pain has improved with this. DVT prophylaxis - Lovenox which will be resumed Code status - full Subjective Date/time seen: 04/01/24 12:10 Interval history: No overnight events. Abdominal discomfort has improved. Tolerating tube feed. Breathing has been stable. Remains on 2 L oxygen via nasal cannula. Review of Systems Review of Systems: All systems reviewed & are unremarkable except as noted in HPI and below Exam Narrative: General: Alert and oriented x3 Thin, frail, not in acute distress HEENT: Normocephalic, atraumatic. PERRL, EOMI. Sclera anicteric. Neck: Supple. No obvious JVD. Respiratory:. Lung sounds coarse with scattered rhonchi and are equally transmitted anteriorly and at flanks. No respiratory distress Cardiovascular: Regular rate and rhythm with S1-S2. Gastrointestinal: PEG tube in situ, abdomen is soft, mild tenderness at the G- tube site, and nondistended with positive bowel sounds. Skin: Warm and dry. Generalized pallor. Legs are dry and scaly. Extremities: No cyanosis, clubbing, or edema. Radial and pedal pulses intact. No palpable knots or cords. Neurological: Alert and oriented. Cranial nerves 2-12 are grossly intact. No gross focal deficits to casual conversation. Psychiatric: He is pleasant and cooperative with appropriate mood. Objective Data Vital Signs Vital Signs: Vital Signs - 24 hr 03/31/24 16:00 03/31/24 21:35 03/31/24 21:45 Temperature 97.9 F Pulse Rate 60 67 66 Respiratory Rate 14 18 Blood Pressure 105/67 Pulse Oximetry 97 Oxygen Delivery Oxygen Flow Rate 03/31/24 22:15 03/31/24 22:00 03/31/24 21:59 Temperature 98.6 F Pulse Rate 60 Respiratory Rate 18 Blood Pressure 104/60 Pulse Oximetry 98 98 98 Oxygen Delivery Nasal Cannula Oxygen Flow Rate 2 2 03/31/24 20:02 04/01/24 00:04 04/01/24 04:02 Temperature Pulse Rate 59 L 57 L 59 L Respiratory Rate Blood Pressure Pulse Oximetry Oxygen Delivery Oxygen Flow Rate 04/01/24 03:05 04/01/24 03:15 04/01/24 06:50 Temperature Pulse Rate 62 68 55 L Respiratory Rate 18 18 18 Blood Pressure Pulse Oximetry 99 Oxygen Delivery Oxygen Flow Rate 3 04/01/24 06:50 04/01/24 07:00 04/01/24 08:00 Temperature 98.1 F Pulse Rate 55 L 58 L 97 Respiratory Rate 18 18 18 Blood Pressure 108/60 Pulse Oximetry 99 Oxygen Delivery Oxygen Flow Rate 04/01/24 08:00 04/01/24 08:03 Temperature Pulse Rate 62 60 Respiratory Rate Blood Pressure Pulse Oximetry 95 Oxygen Delivery Nasal Cannula Oxygen Flow Rate 2 Intake/Output Intake/Output: Intake & Output 03/29/24 03/30/24 03/31/24 04/01/24 23:59 23:59 23:59 23:59 Intake Total 1896 2488 400 316.7 Output Total 1400 2100 950 1450 Balance 496 388 -550 -1133.3 Meds/Results Medications: Active Medications Generic Name Dose Route Start Last Admin Trade Name Freq PRN Reason Stop Dose Admin Acetaminophen 650 mg 03/30/24 11:56 Acetaminophen Elixir 325 Mg/10.15 Ml Udc FEED TUBE Q6H PRN Pain Rated 1-3 Hydrocodone Bitart/Acetaminophen 1 tab 03/28/24 23:07 03/31/24 22:18 Hydrocodone/Acetaminophen (*Crx) 5-325 Mg Tablet PO 1 tab Q6H PRN Administration Pain rated 4-10 Albuterol 2 puff 03/30/24 11:56 Albuterol Sulfate (*Sp) Aerosol 1 Puff INHALATION Q4H PRN Shortness Of Breath Albuterol/Ipratropium 3 ml 03/28/24 08:00 04/01/24 06:55 Ipratropium 0.5 Mg/Albuterol Sulfate 2.5 Mg Ampul.Neb 3 Ml INHALATION 3 ml Q6HRT CARYL Administration Alprazolam 1 mg 03/30/24 11:56 Alprazolam (*Crx) 0.5 Mg Tablet FEED TUBE TID PRN anxiety Aspirin 81 mg 03/31/24 09:00 04/01/24 09:54 Aspirin 81 Mg Chewable Tablet FEED TUBE 81 mg DAILY CARYL Administration Baclofen 5 mg 03/30/24 11:56 Baclofen 5 Mg Tablet FEED TUBE TID PRN muscle spasms Bisacodyl 10 mg 03/30/24 11:56 Bisacodyl 10 Mg Suppository RECTAL DAILY PRN Constipation Collagenase 1 applic 03/26/24 09:00 04/01/24 09:55 Collagenase Oint 30 Gm Tube TOPICAL 1 applic QAM CARYL Administration Enoxaparin Sodium 40 mg 03/26/24 09:00 04/01/24 09:49 Enoxaparin 40 Mg/0.4 Ml Syringe SUB-Q 40 mg DAILY CARYL Administration Escitalopram Oxalate 20 mg 03/30/24 21:00 03/31/24 21:59 Escitalopram Oxalate 10 Mg Tablet FEED TUBE 20 mg QHS CARYL Administration Fluticasone/Umeclidinium/Vilanterol 1 puff 03/31/24 08:00 04/01/24 06:55 Fluticasone/Umeclidin/Vilanter 100-62.5-25 Mcg Ellipta INHALATION 1 puff DAILYRT CARYL Administration Guaifenesin 400 mg 03/30/24 13:00 04/01/24 09:52 Guaifenesin 200 Mg/10 Ml Udc PO 04/02/24 17:01 400 mg TID CARYL Administration Ampicillin Sodium/Sulbactam Sodium 3 gm in 100 mls @ 200 mls/hr 03/25/24 23:00 04/01/24 11:55 Unasyn 3 Gm/Ns 100 Ml IVPB Infused Q6HR CARYL Infusion Lansoprazole 30 mg 03/30/24 17:00 04/01/24 09:54 Lansoprazole Odt 30 Mg Tab.Rap.Dr FEED TUBE 30 mg BID CARYL Administration Levothyroxine Sodium 12.5 mcg 03/31/24 06:30 04/01/24 06:14 Levothyroxine Sodium 12.5 Mcg Tablet FEED TUBE 12.5 mcg DAILY@0630 CARYL Administration Levothyroxine Sodium 150 mcg 03/31/24 06:30 04/01/24 06:14 Levothyroxine Sodium 150 Mcg Tablet FEED TUBE 150 mcg DAILY@0630 CARYL Administration Levothyroxine Sodium 25 mcg 03/31/24 06:30 04/01/24 06:14 Levothyroxine Sodium 25 Mcg Tablet FEED TUBE 25 mcg DAILY@0630 CARYL Administration Magnesium Citrate 300 ml 03/30/24 11:56 Magnesium Citrate 300 Ml Btl FEED TUBE DAILY PRN Constipation Magnesium Hydroxide 30 ml 03/30/24 11:56 03/31/24 09:19 Magnesium Hydroxide Susp 30 Ml Udc FEED TUBE 30 ml DAILY PRN Administration Constipation Miscellaneous Information 1 each 03/31/24 00:01 Naloxone Nasal [place] Nonformulary. Okay To Hold While Inpatient? XX 04/30/24 00:00 CLARIFY CARYL Multivitamins/Calcium 1 tablet 03/31/24 09:00 04/01/24 09:54 Therapeutic Multivitamins/Minerals Tab (*Bkc) FEED TUBE 1 tablet DAILY CARYL Administration Nitroglycerin 1 spray 03/30/24 12:21 Nitroglycerin 0.4 Mg/[place] Oral Btl (*Bkc) TRANSLINGU Q5M PRN Chest Pain Non-Formulary Medication 4 mg 03/31/24 12:25 Naloxone XX 04/30/24 12:24 Q2M CARYL Polyethylene Glycol 17 gm 03/30/24 11:55 03/31/24 09:19 Polyethylene Glycol 3350 17 Gm Powd.Pack FEED TUBE 17 gm QAM PRN Administration Constipation Polysaccharide Iron Complex 150 mg 03/30/24 17:00 04/01/24 09:53 Polysaccharide Iron Complex 150 Mg Capsule FEED TUBE 150 mg BID CARYL Administration Saccharomyces Boulardii 250 mg 03/30/24 17:00 04/01/24 09:53 Saccharomyces Boulardii 250 Mg Capsule FEED TUBE 250 mg BID CARYL Administration Simvastatin 20 mg 03/31/24 09:00 04/01/24 09:54 Simvastatin 20 Mg Tablet FEED TUBE 20 mg DAILY CARYL Administration Radiology Results: ITS Impressions Chest X-Ray 03/25/24 14:02 IMPRESSION: 1. Persistent diffuse reticular and mild airspace opacities throughout both lungs consistent with multifocal pneumonia which appears to progressed in the right upper lung zone. Modified Barium Swallow 03/27/24 13:11 IMPRESSION: Oropharyngeal dysphagia with 2 episodes of laryngeal penetration and trace silent aspiration. Please correlate with speech pathologist findings and specific feeding recommendations. Abdomen X-Ray 03/30/24 14:02 IMPRESSION: 1. Large amount of colonic stool which could be seen with constipation. No bowel obstruction. Labs Labs: Laboratory Results - last 24 hr 03/25/24 03/26/24 03/31/24 23:09 05:19 11:45 WBC RBC Hgb Hct MCV MCH MCHC RDW Plt Count MPV Immature Gran % (Auto) Neut % (Auto) Lymph % (Auto) [place] % (Auto) Eos % (Auto) Baso % (Auto) Lymph # (Auto) [place] # (Auto) Eos # (Auto) Baso # (Auto) Abs Immat Gran (auto) Absolute Neuts (auto) Absolute Nucleated RBC Nucleated RBC % Sodium Potassium Chloride Carbon Dioxide Anion Gap BUN Creatinine Estim Creat Clear Calc Estimated GFR Glucose POC Capillary Glucose 93 Calcium Magnesium Total Bilirubin AST ALT Alkaline Phosphatase Total Protein Albumin Ur L.pneumophila Ag Not detected Mycoplasma pneumon IgM 96 03/31/24 03/31/24 03/31/24 12:36 16:32 21:27 WBC RBC Hgb Hct MCV MCH MCHC RDW Plt Count MPV Immature Gran % (Auto) Neut % (Auto) Lymph % (Auto) [place] % (Auto) Eos % (Auto) Baso % (Auto) Lymph # (Auto) [place] # (Auto) Eos # (Auto) Baso # (Auto) Abs Immat Gran (auto) Absolute Neuts (auto) Absolute Nucleated RBC Nucleated RBC % Sodium Potassium Chloride Carbon Dioxide Anion Gap BUN Creatinine Estim Creat Clear Calc Estimated GFR Glucose POC Capillary Glucose 110 H 126 H 108 H Calcium Magnesium Total Bilirubin AST ALT Alkaline Phosphatase Total Protein Albumin Ur L.pneumophila Ag Mycoplasma pneumon IgM 04/01/24 04/01/24 04/01/24 00:34 06:31 06:36 WBC 5.6 RBC 3.46 L Hgb 9.7 L Hct 30.8 L MCV 89.0 MCH 28.0 MCHC 31.5 L RDW 18.3 H Plt Count 212 MPV 10.0 Immature Gran % (Auto) 0.5 Neut % (Auto) 78.2 H Lymph % (Auto) 10.7 L [place] % (Auto) 8.2 Eos % (Auto) 2.0 Baso % (Auto) 0.4 Lymph # (Auto) 0.60 L [place] # (Auto) 0.5 Eos # (Auto) 0.1 Baso # (Auto) 0.0 Abs Immat Gran (auto) 0.03 Absolute Neuts (auto) 4.4 Absolute Nucleated RBC 0.000 Nucleated RBC % 0.0 Sodium 129 L Potassium 4.5 Chloride 93 L Carbon Dioxide 37 H Anion Gap -1 L BUN 17 Creatinine 0.40 L Estim Creat Clear Calc 118 Estimated GFR > 60 Glucose 106 POC Capillary Glucose 127 H 123 H Calcium 7.9 L Magnesium 2.3 Total Bilirubin 0.6 AST 21 ALT 21 Alkaline Phosphatase 93 Total Protein 5.0 L Albumin 3.1 L Ur L.pneumophila Ag Mycoplasma pneumon IgM 04/01/24 11:36 WBC RBC Hgb Hct MCV MCH MCHC RDW Plt Count MPV Immature Gran % (Auto) Neut % (Auto) Lymph % (Auto) [place] % (Auto) Eos % (Auto) Baso % (Auto) Lymph # (Auto) [place] # (Auto) Eos # (Auto) Baso # (Auto) Abs Immat Gran (auto) Absolute Neuts (auto) Absolute Nucleated RBC Nucleated RBC % Sodium Potassium Chloride Carbon Dioxide Anion Gap BUN Creatinine Estim Creat Clear Calc Estimated GFR Glucose POC Capillary Glucose 97 Calcium Magnesium Total Bilirubin AST ALT Alkaline Phosphatase Total Protein Albumin Ur L.pneumophila Ag Mycoplasma pneumon IgM
[2024-04-01 17:52] LABS: Glucose Point of Care 131 mg/dl (65-105)
[2024-04-01] MEDS: AMOXICILLIN/CLAVULANATE K 875-125 MG TAB 1 TABLET FEED TUBE (22:16)
[2024-04-01] MEDS: ESCITALOPRAM OXALATE 10 MG TABLET 20 MG FEED TUBE (22:17)
[2024-04-01] MEDS: HYDROcodone/acetaminophen (*CRX) 5-325 MG TABLET 1 TAB PO (22:20)
[2024-04-02] VITALS (10 sets, daily range): BP systolic 104; BP diastolic 60; PULSE 54–70; RESP 16–20; TEMP 36.4; O2SAT 94–98
[2024-04-02] MEDS: IPRATROPIUM 0.5 MG/ALBUTEROL SULFATE 2.5 MG AMPUL.NEB 3 ML INHALATION ×3 (01:38→14:00)
[2024-04-02] MEDS: LEVOTHYROXINE SODIUM 25 MCG TABLET FEED TUBE (06:15)
[2024-04-02] MEDS: LEVOTHYROXINE SODIUM 12.5 MCG TABLET FEED TUBE (06:15)
[2024-04-02] MEDS: LEVOTHYROXINE SODIUM 150 MCG TABLET FEED TUBE (06:15)
[2024-04-02 06:47] LABS: Basophils Percent Auto 0.3 % (0.2-1.2); Eosinophils Absolute Auto 0.1 K/mm3 (0-0.3); Eosinophils Percent Auto 1.9 % (0-4.4); Hematocrit 29.9 % (42.0-52.0); Hemoglobin 9.4 g/dL (14.0-18.0); Immature Granulocyte Absolute 0.03 K/mm3 (0.00-0.031); Immature Granulocyte Percent A 0.5 % (0-0.5); Lymphocytes Absolute Auto 0.53 K/mm3 (0.9-3.2); Lymphocytes Percent Auto 8.4 % (18.3-44.2); Mean Corpuscular HGB Conc 31.4 g/dl (32-36); Mean Platelet Volume 9.9 fl (7.4-10.4); Monocytes Absolute Auto 0.5 K/mm3 (0.1-0.6); Monocytes Percent Auto 8.1 % (2.6-8.5); Neutrophils Absolute Auto 5.1 K/mm3 (1.3-6.7); Neutrophils Percent Auto 80.8 % (45.5-73.1); Platelet Count Result 232 k/mm3 (150-375); Red Blood Count 3.36 M/mm3 (4.6-6.20); Red Cell Distribution Width 18.2 % (11.5-14.5); White Blood Count 6.3 K/mm3 (4.5-10.0)
[2024-04-02 06:59] LABS: Alanine Aminotransferase 26 U/L (6-50); Albumin Level 3.4 g/dL (3.5-5.1); Alkaline Phosphatase 95 U/L (38-126); Anion Gap -2 mmol/L (4-12); Aspartate Amino Transferase 30 U/L (17-59); Bilirubin,Total 0.6 mg/dL (0.2-1.3); Blood Urea Nitrogen 16 mg/dL (9-20); Carbon Dioxide 37 mmol/L (22-30); Chloride 93 mmol/L (98-107); Estimated CRCL calculation 112 ml/min; Estimated Glomerular Filt Rate > 60; Glucose 107 mg/dL (65-110); Magnesium 2.3 mg/dL (1.6-2.3); Potassium 4.4 mmol/L (3.4-5.0); Sodium 128 mmol/L (137-145)
[2024-04-02] MEDS: guaiFENesin 200 MG/10 ML UDC 400 MG PO (08:56)
[2024-04-02] MEDS: ASPIRIN 81 MG CHEWABLE TABLET FEED TUBE (08:57)
[2024-04-02] MEDS: AMOXICILLIN/CLAVULANATE K 875-125 MG TAB 1 TABLET FEED TUBE (08:57)
[2024-04-02] MEDS: ENOXAPARIN 40 MG/0.4 ML SYRINGE SUB-Q (08:57)
[2024-04-02] MEDS: POLYSACCHARIDE IRON COMPLEX 150 MG CAPSULE FEED TUBE (08:57)
[2024-04-02] MEDS: SACCHAROMYCES BOULARDII 250 MG CAPSULE FEED TUBE (08:57)
[2024-04-02] MEDS: LANSOPRAZOLE ODT 30 MG TAB.RAP.DR FEED TUBE (08:57)
[2024-04-02] MEDS: SIMVASTATIN 20 MG TABLET FEED TUBE (08:57)
[2024-04-02] MEDS: THERAPEUTIC MULTIVITAMINS/MINERALS TAB (*BKC) 1 TABLET FEED TUBE (08:57)
[2024-04-02] MEDS: COLLAGENASE OINT 30 GM TUBE 1 APPLIC TOPICAL (08:57)
[2024-04-02] MEDS: FLUTICASONE/UMECLIDIN/VILANTER 100-62.5-25 MCG ELLIPTA 1 PUFF INHALATION (09:50)
[2024-04-02 11:32] LABS: Glucose Point of Care 125 mg/dl (65-105)
--- NOTE | 2024-04-02 12:00 | PM.DS ---
DS: Admitting Diagnosis Discharge Date 04/02/2024 Admitting Diagnosis respiratory failure DS: Discharge Diagnosis Discharge Diagnosis (1) Acute respiratory failure with hypoxia and hypercapnia: Code(s): J96.01 - Acute respiratory failure with hypoxia; J96.02 - Acute respiratory failure with hypercapnia Status: Acute (2) Multifocal pneumonia: Code(s): J18.9 - Pneumonia, unspecified organism Status: Acute (3) Dysphagia: Code(s): R13.10 - Dysphagia, unspecified Status: Acute (4) Chronic obstructive pulmonary disease: Code(s): J44.9 - Chronic obstructive pulmonary disease, unspecified Status: Acute (5) Hypothyroidism: Code(s): E03.9 - Hypothyroidism, unspecified Status: Acute DS: Summary Hospital Course Hospital Course: # Acute respiratory failure with hypoxia and hypercapnia: Patient returns after about 1 week at the [facility] for SOB and resp distress. ABG 7. on 15L. BiPAP started. CXR showing persistent diffuse reticular and mild airspace opacities t/o both lungs with progression in the RUL Repeat ABG better. Related to bacterial PNA or more likely aspiration PNA (although unlikely for aspiration in the RUL) Continue BiPAP at night and with naps. Wean O2 as tolerated. Oxygen requirement has improved and back to baseline level at 2 L oxygen via nasal cannula # Multifocal pneumonia: He completed cefepime and azithro here before discharge on 03/18 Per RN, patient was even treated with cefepime and levaquin at the [facility] prior to being re-admitted. MRSA nasal swab negative Suspect either ESBL PNA or MRSA PNA or pneumonitis from recurrent aspiration. Aspiration possible given the hx from the brother Continue Unasyn and Vanco. Consider meropenem if no improvement. Spoke with Speech therapist. MBS showing patient is aspirating and she recommends NPO. Discussed with patient about the need for GTube. Do not believe a temporary Dobhoff is warranted due to the frequent hospitalizations All questions answered. GI consult for GTube placement. Continue IV fluids Remains on Unasyn days 7 will switch to oral and will complete # Dysphagia: Status post PEG tube placement 03/28/2024 tolerating tube feeds # Chronic obstructive pulmonary disease: Stable on current medications, will continue current treatment # Hypothyroidism: History of thyroid cancer status post chemotherapy and radiation TSH 58 on 11/7. Was on levothyroxine 175 mcg daily on last admission and dose was increased to 187.5 mcg daily. Start levothyroxine IV at 100mcg. With hx of thyroid CA, TSH needs to be undetectable. Stable on current medications, will continue current treatment # Abdominal pain: X-ray abdomen with findings of constipation. Started bowel regimen and now having bowel movement. Abdominal pain has improved with this. 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 PERRL, EOMI. Sclera anicteric. Neck: Supple. No obvious JVD. Respiratory:. Lung sounds coarse with scattered rhonchi and are equally transmitted anteriorly and at flanks. No respiratory distress Cardiovascular: Regular rate and rhythm with S1-S2. Gastrointestinal: PEG tube in situ, abdomen is soft, mild tenderness at the G-tube site, and nondistended with positive bowel sounds. Skin: Warm and dry. Generalized pallor. Legs are dry and scaly. Extremities: No cyanosis, clubbing, or edema. Radial and pedal pulses intact. No palpable knots or cords. Neurological: Alert and oriented. Cranial nerves 2-12 are grossly intact. No gross focal deficits to casual conversation. Psychiatric: He is pleasant and cooperative with appropriate mood. DS: Data Data Completed and Pending Labs on day of discharge: Labs from last 24 hours 04/02/24 04/02/24 04/01/24 11:21 06:35 17:44 WBC 6.3 RBC 3.36 L Hgb 9.4 L Hct 29.9 L MCV 89.0 MCH 28.0 MCHC 31.4 L RDW 18.2 H Plt Count 232 MPV 9.9 Immature Gran % (Auto) 0.5 Neut % (Auto) 80.8 H Lymph % (Auto) 8.4 L [place] % (Auto) 8.1 Eos % (Auto) 1.9 Baso % (Auto) 0.3 Lymph # (Auto) 0.53 L [place] # (Auto) 0.5 Eos # (Auto) 0.1 Baso # (Auto) 0.0 Abs Immat Gran (auto) 0.03 Absolute Neuts (auto) 5.1 Absolute Nucleated RBC 0.000 Nucleated RBC % 0.0 Sodium 128 L Potassium 4.4 Chloride 93 L Carbon Dioxide 37 H Anion Gap -2 L BUN 16 Creatinine 0.40 L Estim Creat Clear Calc 112 Estimated GFR > 60 Glucose 107 POC Capillary Glucose 125 H 131 H Calcium 8.0 L Magnesium 2.3 Total Bilirubin 0.6 AST 30 ALT 26 Alkaline Phosphatase 95 Total Protein 6.0 L Albumin 3.4 L Imaging Radiologist's impression: ITS Impressions Chest X-Ray 03/25/24 14:02 IMPRESSION: 1. Persistent diffuse reticular and mild airspace opacities throughout both lungs consistent with multifocal pneumonia which appears to progressed in the right upper lung zone. Modified Barium Swallow 03/27/24 13:11 IMPRESSION: Oropharyngeal dysphagia with 2 episodes of laryngeal penetration and trace silent aspiration. Please correlate with speech pathologist findings and specific feeding recommendations. Abdomen X-Ray 03/30/24 14:02 IMPRESSION: 1. Large amount of colonic stool which could be seen with constipation. No bowel obstruction. Discharge Plan Discharge Attending physician on discharge: Jayesh De Discharging Clinician: Jayesh De Anticipated Discharge Date/Time: 04/02/24 12:08 Patient Disposition: SNF Activity: as tolerated Diet: tube feeding Discharge Instructions: Routine G-tube care. Tube feed Jevity 1.5 at 55 cc an hour. Water flushes 100 mL every 4 hours. [place] b.i.d. Oxygen supplementation 2 L per minute via nasal cannula Stand Alone Forms: General Discharge Information Follow-up/Referrals: PHYSICIAN NOT ON STAFF,NONSTAFF [Primary Care Provider] - 1 Week Discharge Medications: New hydrocodone-acetaminophen 5-325 mg Tablet 1 tablet feeding tube Q6H PRN (Reason: Pain rated 4-10) Qty: 10 0RF acetaminophen [[place]] 160 mg/5 mL Suspension 650 mg feeding tube Q6H PRN (Reason: Pain Rated 1-3) Qty: 120 0RF polyethylene glycol 3350 [Miralax] 17 gram Powder In Packet 17 g feeding tube QAM PRN (Reason: Constipation) Qty: 30 0RF levothyroxine 25 mcg Tablet 37.5 mcg feeding tube DAILY@0630 Qty: 45 0RF amoxicillin-pot clavulanate 875-125 mg tablet 1 tablet feeding tube Q12H Qty: 5 0RF Continued nitroglycerin 400 mcg/spray spray,non-aerosol 1 spray translingual Q5M PRN (Reason: Chest Pain) Rx Instructions: do not exceed 3 doses per episode Trelegy Ellipta 100-62.5-25 mcg blister with device 1 inh INHALATION DAILY albuterol sulfate 2 puff inhalation Q4H PRN (Reason: Shortness Of Breath) ipratropium-albuterol 1 vial inhalation TID bisacodyl 10 mg Suppository 10 mg RECTAL DAILY PRN (Reason: Constipation) Rx Instructions: give if milk of magnesia doesn't work [place] Enema 19-7 gram/118 mL Enema 118 ml RECTAL ONCE Rx Instructions: give if no results 1 day after suppository naloxone 4 mg/actuation [place],Non-Aerosol 4 mg INTRANASAL Q2M Rx Instructions: spray 1 dose into ONE nostril; alternate nostrils w each dose until help arrives Changed baclofen 10 mg tablet 5 mg feeding tube TID PRN (Reason: muscle spasms) Qty: 30 0RF simvastatin 20 mg tablet 20 mg feeding tube DAILY Qty: 30 0RF alprazolam 1 mg tablet 1 mg feeding tube TID PRN (Reason: anxiety) Qty: 90 0RF benzonatate 100 mg G-tube Q8H PRN (Reason: Cough) Qty: 20 0RF omeprazole 40 mg G-tube BID Qty: 60 0RF aspirin 81 mg Tablet,Chewable 81 mg feeding tube DAILY Qty: 30 0RF magnesium citrate [Citroma] Solution 300 ml feeding tube DAILY PRN (Reason: Constipation) Qty: 296 0RF Rx Instructions: give if no results from enema escitalopram oxalate 20 mg Tablet 20 mg feeding tube QHS Qty: 30 0RF Mucinex 600 mg G-tube BID Qty: 60 0RF Rx Instructions: Ends 04/02/24 sodium chloride 500 mg G-tube BID Qty: 60 0RF levothyroxine [Synthroid] 150 mcg Tablet 150 mcg feeding tube DAILY@0630 Qty: 30 0RF magnesium hydroxide [Milk of Magnesia] 400 mg/5 mL Suspension 400 mg feeding tube DAILY PRN (Reason: Constipation) Qty: 355 0RF Rx Instructions: give if no BM in 3 days polysaccharide iron complex 150 mg iron Capsule 150 mg feeding tube BID Qty: 60 0RF Saccharomyces boulardii 250 mg Capsule 250 mg feeding tube BID Qty: 30 0RF Rx Instructions: stop 04/03/24 Discontinued ranolazine 500 mg tablet extended release 12 hr 500 mg PO Q12H acetaminophen 650 mg PO Q6H PRN (Reason: Pain) potassium chloride 20 meq PO DAILY levothyroxine 37.5 mcg capsule 37.5 mcg PO DAILY Qty: 30 0RF ferrous sulfate 325 mg (65 mg iron) Tablet 325 mg PO BID levofloxacin 750 mg Tablet 750 mg HS multivit with min-folic acid [Adult One Daily Multivitamin] 0.4 mg Tablet 1 tablet PO DAILY midodrine 2.5 mg tablet 2.5 mg PO TID furosemide 20 mg tablet 20 mg PO DAILY cefepime 2 gram Piggyback 2 g IV Q12H Other Ambulatory Orders: Complete Blood Count with Diff (Routine) Timeframe: 1 Week Location: Determined by Patient Ordered By: Jayesh De Comprehensive Metabolic Panel (Routine) Timeframe: 1 Week Location: Determined by Patient Ordered By: Jayesh De Date of admission: 03/25/24 15:48 Primary Care Provider: PHYSICIAN NOT ON STAFF,NONSTAFF Admitting Provider: Wesley Yu Attending physician on admission: Wesley Yu Condition: Stable
[2024-04-02 12:32] LABS: Glucose Point of Care 118 mg/dl (65-105)
[2024-04-02 12:32] LABS: Glucose Point of Care 104 mg/dl (65-105)
== END 2024-04-02 15:17 | DRG 177 ==
LOC: ANHED 15:47 → ANHIMU 16:40 → ANH3MEDSUR 04-02 12:09 → ANHIMU 04-03 16:25
PROVIDERS: Internal Medicine Gastroenterology; Physician Assistant; Admitting Provider Internal Medicine; Emergency Provider Family Medicine; Visit Provider Internal Medicine
PROC: 0DH63UZ Insertion of Feeding Device into Stomach, Percutaneous Approach (ICD-10-PCS; CPT 43246; principal; 2024-03-28 13:30)
DX: J69.0 Pneumonitis due to inhalation of food and vomit (principal); J96.01 Acute respiratory failure with hypoxia; K29.51 Unspecified chronic gastritis with bleeding; J96.02 Acute respiratory failure with hypercapnia; J44.0 Chronic obstructive pulmonary disease with (acute) lower respiratory infection; R64 Cachexia; Z68.1 Body mass index [BMI] 19.9 or less, adult; J15.8 Pneumonia due to other specified bacteria; J98.4 Other disorders of lung; R13.10 Dysphagia, unspecified; E03.9 Hypothyroidism, unspecified; I25.10 Atherosclerotic heart disease of native coronary artery without angina pectoris; K21.9 Gastro-esophageal reflux disease without esophagitis; I10 Essential (primary) hypertension; G62.9 Polyneuropathy, unspecified; D50.9 Iron deficiency anemia, unspecified; K59.00 Constipation, unspecified; F17.210 Nicotine dependence, cigarettes, uncomplicated; Z20.822 Contact with and (suspected) exposure to COVID-19; Z85.828 Personal history of other malignant neoplasm of skin; Z85.850 Personal history of malignant neoplasm of thyroid; Z90.49 Acquired absence of other specified parts of digestive tract; Z96.1 Presence of intraocular lens; Z98.49 Cataract extraction status, unspecified eye; Z95.1 Presence of aortocoronary bypass graft; Z85.118 Personal history of other malignant neoplasm of bronchus and lung
CPT/HCPCS: 36415; 36600; 43246; 71045; 74018; 80048; 80053; 80202; 82375; 82805; 82948; 83050; 83735; 84145; 85018; 85025; 85027; 86738; 87040; 87070; 87205; 87449; 87637; 87641; 87899; 92526; 92611; 93005; 94002; 94003; 94640; 97110; 97161; 97530; 99291; A9270; J0295; J0650; J1650; J2003; J2704; J3370; J7030; J7042; J7120

== ENCOUNTER 2024-07-05 01:12 | Emergency (ER) | payer MEDICARE, OTHER, SELFPAY ==
--- NOTE | ~2024-07-05 | XR_ITS ---
Upright portable view of the abdomen Clinical history: G-tube replacement Findings: Percutaneous gastrostomy tube overlies the stomach, with contrast in the gastric fundus. Hadley wel gas pattern is nonspecific. No evidence for obstruction or free air. No abnormal mass lesion or c alcification is seen. Osseous structures are intact. Impression: Percutaneous gastrostomy tube in satisfactory position, contrast in the gastric fundus. Reviewed, dictated and finalized at location . LLIGENCE CONSULTANT Impression: Percutaneous gastrostomy tube in satisfactory position, contrast in the gastric fundus.
[2024-07-05 01:13] VITALS: BP 122/77; PULSE 60; RESP 19; TEMP 36.4; O2SAT 96
[2024-07-05 01:23] VITALS: BP 122/77; PULSE 60; RESP 17; TEMP 36.4; O2SAT 100
--- NOTE | 2024-07-05 01:26 | ED_ITS ---
HPI - General Adult General Chief complaint: Unspecified Stated complaint: dislodged feeding tube Time Seen by Provider: 07/05/24 01:18 Source: patient and EMS Mode of arrival: EMS Limitations: no limitations History of Present Illness HPI narrative: This is a 73 year old male that presents to the ER for dislodged G tube. Reportedly it was present around 10 PM when his previous nurse was with him. Fell out some time in the last couple of hours. Patient has no complaints. Related Data Home Medications ?Medication ?Instructions ?Recorded ?Confirmed ?Last Taken ?Type nitroglycerin 400 mcg/spray 1 spray translingual Q5M PRN Chest 07/21/20 03/25/24 Unknown History translingual Pain albuterol sulfate 2 puff inhalation Q4H PRN 03/08/24 03/25/24 Unknown History Shortness Of Breath fluticasone fur. 100 mcg-umeclid 1 inh inhalation DAILY 03/08/24 03/25/24 Unknown History 62.5 mcg-vilant 25 mcg inhalat.powder (Trelegy Ellipta) ipratropium-albuterol 1 vial inhalation TID 03/08/24 03/25/24 Unknown History bisacodyl 10 mg rectal suppository 10 mg RECTAL DAILY PRN Constipation 03/25/24 03/25/24 Unknown History naloxone 4 mg/actuation nasal spray 4 mg intranasal Q2M 03/25/24 03/25/24 Unknown History sodium phosphates 19 gram-7 118 ml RECTAL ONCE 03/25/24 03/25/24 Unknown History gram/118 mL enema (Fleet Enema) Allergies Allergy/AdvReac Type Severity Reaction Status Date / Time atorvastatin AdvReac Mild MADE ME Verified 02/21/24 10:52 SICK methocarbamol AdvReac Mild MADE ME Verified 02/21/24 10:52 SICK terbinafine AdvReac Mild MADE ME Verified 02/21/24 10:52 SICK Review of Systems Review of Systems: CONSTITUTIONAL: Denies fever GASTROINTESTINAL: Denies abdominal pain, nausea, vomiting All systems reviewed & are unremarkable except as noted in HPI and below PMFSH Past Medical History Medical History Adenomatous colon polyp Basal cell carcinoma Chronic obstructive pulmonary disease Coronary artery disease Frequent falls Gastroesophageal reflux disease High cholesterol Hypertension Hyponatremia Hypothyroidism Lung cancer status post right upper lobe pneumonectomy Lymphocytic esophagitis Nonerosive esophageal reflux disease Peripheral neuropathy Rhabdomyolysis Thyroid cancer Surgical History Surgical History History of bilateral carpal tunnel release History of bilateral inguinal hernia repair History of cataract extraction with lens replacement (2015) History of cholecystectomy History of colonoscopy History of coronary angioplasty History of esophageal dilatation History of esophagogastroduodenoscopy (EGD) (2006) History of four vessel coronary artery bypass graft (09/2002) History of hemorrhoidectomy History of medial meniscus repair of right knee (2005) History of open reduction and internal fixation (ORIF) procedure (06/2022) repair right proximal humerus fracture History of pneumonectomy (2014) right upper lobe due to lung cancer History of ventral hernia repair (06/2006) gastric volvulus with ventral hernia repair Family History Family History Mother MVA (motor vehicle accident) Father Gunshot wound Sibling Heart disease Other Family history of cardiovascular disease Social History Social History (Updated 03/25/24 @ 18:36 by Ana Sanabria PA-C) Social History: Surrogate medical decision maker: Linwood Bergeron ([phone]), brother. Code status: Full code. Smoking packs per day: 1 Smoking cigarettes per day: 20.0 Years smoked: 50 Smoking pack-years: 50.00 Smoking status: Current every day smoker Second hand tobacco smoke exposure: Yes Additional smoking assessment comments: has cut down to 4-6 cigarettes a day Alcohol intake: former Alcohol use details: no alcohol since August 31, 1984 Substance use: never Do You Feel Safe in your Home?: Yes Lack of Transportation: No Lack of Food: Never True Current Housing: I Have Housing Concerned About Future Housing: No Difficulty Paying Gas/Electric Bills: No Difficulty Paying for Meds: No Currently Unemployed: No Education: Decline to Answer Difficulty w/ Childcare or Family Care: No Additional living arrangements comments: Lives alone. with 2 children. Currently at [facility]. 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 Spiritual care concerns: No Exam Narrative: GENERAL: Elderly, well-nourished, and in no acute distress. HEAD: Normocephalic, atraumatic. EYES: EOMI. CHEST: Clear to auscultation. No respiratory distress. No wheezes rales or rhonchi HEART: Regular rate and rhythm. No murmur heard. Normal peripheral pulses. ABDOMEN: Soft, nontender, nondistended, normal active bowel sounds. EXTREMITIES: Normal range of motion. No edema. SKIN: Warm, dry, no rash. NEURO: No focal deficits. Alert and oriented x3. PSYCH: Normal mood and affect Course Vital Signs Vital signs: Vital Signs Temperature 97.6 F 07/05/24 01:13 Pulse Rate 60 07/05/24 01:13 Respiratory Rate 19 07/05/24 01:13 Blood Pressure 122/77 07/05/24 01:13 Pulse Oximetry 96 07/05/24 01:13 Oxygen Delivery Nasal Cannula 07/05/24 01:13 Oxygen Flow Rate 2 07/05/24 01:13 Temperature 97.6 F 07/05/24 01:23 Pulse Rate 60 07/05/24 01:23 Respiratory Rate 17 07/05/24 01:23 Blood Pressure 122/77 07/05/24 01:23 Pulse Oximetry 100 07/05/24 01:23 Oxygen Delivery Nasal Cannula 07/05/24 01:13 Oxygen Flow Rate 2 07/05/24 01:13 Procedures Feeding Tube Replacement Feeding Tube #1: Feeding Tube Placement Date: 07/05/24 Feeding Tube Placement Time: 01:49 Type of Tube: gastrostomy Insertion Site Prior to Procedure: clean Tube Used for Reinsertion: other (Tile) Spanish Tube Size (F): 20 Balloon size (mL): 20 Verification of Placement: gastrografin injection Tube Secured by: tape/dressing Patient Tolerated Procedure: well and no complications Medical Decision Making MDM Narrative Medical decision making narrative: Patient presents to the ER for G tube dislodgement. This was replaced without complication by Dr. Arias. X-ray confirming position. Patient has no complaints. Discharged back to facility Vital Signs Vital Signs: Vital Signs Temperature 97.6 F 07/05/24 01:13 Pulse Rate 60 07/05/24 01:13 Respiratory Rate 19 07/05/24 01:13 Blood Pressure 122/77 07/05/24 01:13 Pulse Oximetry 96 07/05/24 01:13 Oxygen Delivery Nasal Cannula 07/05/24 01:13 Oxygen Flow Rate 2 07/05/24 01:13 Temperature 97.6 F 07/05/24 01:23 Pulse Rate 60 07/05/24 01:23 Respiratory Rate 17 07/05/24 01:23 Blood Pressure 122/77 07/05/24 01:23 Pulse Oximetry 100 07/05/24 01:23 Oxygen Delivery Nasal Cannula 07/05/24 01:13 Oxygen Flow Rate 2 07/05/24 01:13 Imaging Data My impression: KUB: Gastrostomy tube present in the stomach Critical Care Time Critical Care Time Critical Care Time: No Discharge Plan Discharge Clinical Impression: Gastrostomy tube dysfunction Patient Disposition: NH Correction/Asst Living Condition: Stable Instructions: PEG (Percutaneous Endoscopic Gastrostomy) Tube Insertion (DC) Additional Instructions: Return to the ER if you experience fever, abdominal pain with nausea and vomiting, or any other symptoms that are concerning to you Follow up with your GI doctor as needed Patient Language: Hungarian Prescriptions: No Action nitroglycerin 400 mcg/spray spray,non-aerosol 1 spray translingual Q5M PRN (Reason: Chest Pain) Rx Instructions: do not exceed 3 doses per episode Trelegy Ellipta 100-62.5-25 mcg blister with device 1 inh INHALATION DAILY albuterol sulfate 2 puff inhalation Q4H PRN (Reason: Shortness Of Breath) ipratropium-albuterol 1 vial inhalation TID bisacodyl 10 mg Suppository 10 mg RECTAL DAILY PRN (Reason: Constipation) Rx Instructions: give if milk of magnesia doesn't work Fleet Enema 19-7 gram/118 mL Enema 118 ml RECTAL ONCE Rx Instructions: give if no results 1 day after suppository naloxone 4 mg/actuation [place],Non-Aerosol 4 mg INTRANASAL Q2M Rx Instructions: spray 1 dose into ONE nostril; alternate nostrils w each dose until help arrives acetaminophen [Nortemp] 160 mg/5 mL Suspension 650 mg feeding tube Q6H PRN (Reason: Pain Rated 1-3) Qty: 120 0RF polyethylene glycol 3350 [Miralax] 17 gram Powder In Packet 17 g feeding tube QAM PRN (Reason: Constipation) Qty: 30 0RF hydrocodone-acetaminophen 5-325 mg Tablet 1 tablet feeding tube Q6H PRN (Reason: Pain rated 4-10) Qty: 10 0RF levothyroxine 25 mcg Tablet 37.5 mcg feeding tube DAILY@0630 Qty: 45 0RF amoxicillin-pot clavulanate 875-125 mg tablet 1 tablet feeding tube Q12H Qty: 5 0RF polysaccharide iron complex 150 mg iron Capsule 150 mg feeding tube BID Qty: 60 0RF magnesium hydroxide [Milk of Magnesia] 400 mg/5 mL Suspension 400 mg feeding tube DAILY PRN (Reason: Constipation) Qty: 355 0RF Rx Instructions: give if no BM in 3 days baclofen 10 mg tablet 5 mg feeding tube TID PRN (Reason: muscle spasms) Qty: 30 0RF simvastatin 20 mg tablet 20 mg feeding tube DAILY Qty: 30 0RF levothyroxine [Synthroid] 150 mcg Tablet 150 mcg feeding tube DAILY@0630 Qty: 30 0RF magnesium citrate [Citroma] Solution 300 ml feeding tube DAILY PRN (Reason: Constipation) Qty: 296 0RF Rx Instructions: give if no results from enema aspirin 81 mg Tablet,Chewable 81 mg feeding tube DAILY Qty: 30 0RF escitalopram oxalate 20 mg Tablet 20 mg feeding tube QHS Qty: 30 0RF Saccharomyces boulardii 250 mg Capsule 250 mg feeding tube BID Qty: 30 0RF Rx Instructions: stop 3/24 Mucinex 600 mg G-tube BID Qty: 60 0RF Rx Instructions: Ends 12/2/24 benzonatate 100 mg G-tube Q8H PRN (Reason: Cough) Qty: 20 0RF omeprazole 40 mg G-tube BID Qty: 60 0RF sodium chloride 500 mg G-tube BID Qty: 60 0RF alprazolam 1 mg tablet 1 mg feeding tube TID PRN (Reason: anxiety) Qty: 10 0RF Follow-up/Referrals: PHYSICIAN NOT ON STAFF,NONSTAFF [Primary Care Provider] - Stand Alone Forms: Intermediate Discharge
--- OUTSIDE RECORDS SUMMARY | 2024-07-05 01:27 | XMS_ITS | Data Portability ---
Author Organization [employer] [facility], Main Office Address [address] [place] [address] Care Team Providers Care Cuff Setter Name Role Phone GCP [facility] FAX OTHER GUSTAVO GONZALEZ Primary Care Provider Assessment Encounter Date Assessment Date Assessment LastModified by Organization Details LastModified Time 02/28/2024 02/28/2024 UA C&S if indicated, labs for tomorrow, d/c arguelles catheter in am mvandorn Not available 02/29/2024 08:58:21 03/01/2024 03/01/2024 Send to ER for evaluation of worsening hyponatremia and anemia. Not available 03/05/2024 07:52:46 03/04/2024 03/04/2024 labs in am - nee d to clarify with PCP if patient is to be on synthroid as it is listed on recent medications lists but does not appear to have been given during his hospitalization nor ordered on discharge to [place] mvandorn Not available 03/08/2024 02:35:56 03/06/2024 03/06/2024 Start 1.5 L flui d restriction. Labs (CBC, BMP, CRP) on 03/08. Taper O2 to keep sat between 90-92%. Not available 03/08/2024 09:05:38 03/07/2024 03/07/2024 sending back to [facility] - called the patient's brother, Linwood, to discuss plan/need for timely w/u which is not available here. He is agreeable to transfer back to the hospital. Called [facility] and discussed case with Dr. Payal Lundberg - discussed concerns with significant hyponatremia/need for admission with further work-up related to this which is challenging in this setting. mvandorn Not available 03/08/2024 03:05:45 Plan of Treatment Reminders Order Date Submit Date Provider Last Modified By Organization Details Last Modified Time Details Appointments None record ed. Lab None record ed. Referral None record ed. Procedures None record ed. Surgeries None record ed. Imaging None record ed. Medication Orders None record ed. Patient TargetsNo targets recorded. Patient Instructions Encounter Date Encounter Id Patient Instructions Last Modified By Organization Details Last Modified Time 02/28/[id number] I spent {{ 65#}} minutes providing care to the patient today. More than 50% of that time was spent in discussing the expected course of the disease, discussing prognosis, coordinating care and counseling of the patient/family. [email or web address] Not available 03/05/2024 07:28:04 03/01/[id number] I spent {{ 38#}} minutes providing care to the patient today. More than 50% of that time was spent in discussing the expected course of the disease, discussing prognosis, coordinating care and counseling of the patient/family. Not available 03/05/2024 07:56:51 03/04/2024139847 I spent {{ 52#}} minutes providing care to the patient today. More than 50% of that time was spent in discussing the expected course of the disease, discussing prognosis, coordinating care and counseling of the patient/family. mvandorn Not available 03/08/2024 02:45:18 03/06/[id number] I spent {{ 36#}} minutes providing care to the patient today. More than 50% of that time was spent in discussing the expected course of the disease, discussing prognosis, coordinating care and counseling of the patient/family. Not available 03/08/2024 09:08:55 03/07/2024 I spent {{ 65#}} minutes providing care to the patient today. More than 50% of that time was spent in discussing the expected course of the disease, discussing prognosis, coordinating care and counseling of the patient/family. mvandorn Not available 03/08/2024 03:10:30 Reason for Referral None Reported. Results Created Date Observation Date Name Description Value Unit Range Abnormal Flag Note LastModifiedBy Organization Detail LastModifiedTime Result Notes None recorded. Procedures Surgical History Date Name Laterality Status Provider Name and Address Organization Details Recorded Time 023 [facility] [place] [facility] 02/23/2024 23:08:50 021 [facility]inal her[facility] [place] [facility] 02/23/2024 22:59:16 019 repair of inguinal hernia [facility] [place] [facility] 02/23/2024 23:02:47 016 extraction of cataract [facility] [place] [facility] 02/23/2024 23:09:50 015 completion pneumonectomy completed [facility] 02/23/2024 23:06:06 007 open repair [facility] hernia [facility] [place] [facility] 02/23/2024 23:07:09 006 arthroscopy of knee with medial meniscus repair [facility] [place] [facility] 02/23/2024 23:03:44 003 CABG [facility] [place] [facility] 02/23/2024 23:07:36 [facility] [place] [facility] 02/23/2024 22:58:25 decompression of bilateral median nerves [facility] [place] [facility] 02/23/2024 22:59:28 [facility] [place] [facility] 02/23/2024 22:59:44 hem[facility]rhoidectomy [facility] [place] [facility] 02/23/2024 23:01:47 cholecystectomy [facility] [place] [facility] 02/23/2024 23:08:07 Imaging Results None recorded. Procedure Notes None recorded. Medical Equipment None Reported. Allergies Allergen ID Allergen Name Allergen Category Reaction Reaction Severity Criticality Documentation Date Start Date Code Code System Note Provider Name and Address Organization Details Recorded Time 65617 atorvasta tin medicatio n Not available Not available Not available 02/24/2024 36812 RxNorm Not Available Not Available Not Available 98935 methocarb iona medicatio n Not available Not available Not available 02/24/2024 6845 RxNorm Not Available Not Available Not Available 34160 terbinafi ne medicatio n Not available Not available Not available 02/24/2024 52156 RxNorm Not Available Not Available Not Available Medications Name Sig Start Date Stop Date Status Note LastModified by Organization Details LastModified Time Santyl 250 unit/gram topical ointment Apply 1 applicati on every day by topical route. active Not Available Not Available No t Available levothyroxi ne 175 mcg tablet Take 1 tablet every day by oral route. active Not Available Not Available No t Available acetaminoph en 325 mg tablet Take 2 tablets every 6 hours by oral route as needed. active Not Available Not Available No t Available ipratropium 0.5 mg-albutero l 3 mg (2.5 mg base)/3 mL nebulizatio n soln Inhale 3 mL 3 times a day by nebulizat ion route. active Not Available Not Available No t Available albuterol sulfate 2.5 mg/3 mL (0.083 %) solution for nebulizatio n Inhale 3 mL every 6 hours by nebulizat ion route as needed. active Not Available Not Available No t Available alprazolam 1 mg tablet Take 1 tablet 3 times a day by oral route as needed. 2023 active Not Available Not Available Not Avai lable omeprazole 40 mg capsule,del ayed release Take 1 capsule twice a day by oral route. active Not Available Not Available No t Available benzonatate 100 mg capsule Take 1 capsule 3 times a day by oral route as needed. active Not Available Not Available No t Available simvastatin 20 mg tablet Take 1 tablet every day by oral route. active Not Available Not Available No t Available ferrous sulfate 325 mg (65 mg iron) tablet Take 1 tablet twice a day by oral route. 03/06 completed Not Available Not Available Not Available fluconazole 50 mg tablet Take 1 tablet twice a day by oral route for 10 days. 03/06 completed Stop Date: 03/04 Not Available Not Available Not Available nitroglycer in 400 mcg/spray translingua l [place] 1 spray by transling ual route as needed. active Not Available Not Available No t Available aspirin 81 mg chewable tablet Chew 2 tablets every day by oral route. 02/28 completed Not Available Not Available Not Available escitalopra m 20 mg tablet Take 1 tablet every day by oral route. active Not Available Not Available No t Available ranolazine ER 500 mg tablet,exte nded release,12 hr Take 1 tablet twice a day by oral route. active Not Available Not Available No t Available sodium chloride 1,000 mg soluble tablet Take 1 tablet by mouth three times a day. active Not Available Not Available No t Available Mucus Relief ER 600 mg tablet, extended release Take 1 tablet every 12 hours by oral route. active Not Available Not Available No t Available potassium chloride ER 20 mEq tablet,exte nded release Take 1 tablet every day by oral route. active Not Available Not Available No t Available Niferex (Sumalate-Q uatrefolic) 150 mg iron-60 mg-1 mg tablet Take 1 tablet twice a day by oral route. active Not Available Not Available No t Available Trelegy Ellipta 100 mcg-62.5 mcg-25 mcg powder for inhalation Inhale 1 puff every day by inhalatio n route. active Not Available Not Available No t Available baclofen 5 mg tablet Take 1 tablet 3 times a day by oral route as needed. active Not Available Not Available No t Available Vitals Date Recorded Body height Heart rate Body temperature Respiratory rate Oxygen saturation Oxygen saturation in Arterial blood by Pulse oximetry Inhaled oxygen flow rate Systolic blood pressure Diastolic blood pressure Provider Name and Address Organization Details Last Updated DateTime 4 177.8 cm 64 /min 98.2 [degF] 20 /min 98 % 98 % 2 L/min 100 mm[Hg] 51 mm[Hg] [place] [address] [place], [address] [place] [address] [facility] 4 08:56:24 Date Recorded Body height Heart rate Oxygen saturation Oxygen saturation in Arterial blood by Pulse oximetry Inhaled oxygen flow rate Respiratory rate Body temperature Body mass index (BMI) Body weight Systolic blood pressure Diastolic blood pressure Provider Name and Address Organization Details Last Updated DateTime 4 177.8 cm 51 /min 98 % 98 % 3 L/min 22 /min 97.8 [degF] 19.8 kg/m2 27363.7 5 g 122 mm[Hg] 69 mm[Hg] [place] [address] [place], [address], [place] [facility] 4 16:24:15 Date Recorded Body height Body mass index (BMI) Body weight Heart rate Oxygen saturation Oxygen saturation in Arterial blood by Pulse oximetry Inhaled oxygen flow rate Respiratory rate Body temperature Systolic blood pressure Diastolic blood pressure Provider Name and Address Organization Details Last Updated DateTime 4 177.8 cm 19.8 kg/m2 53089.7 5 g 64 /min 98 % 98 % 2 L/min 18 /min 97.9 [degF] 95 mm[Hg] 51 mm[Hg] [place] [address] [place], [address], [place] [facility] 4 04:14:00 Date Recorded Body height Heart rate Body temperature Respiratory rate Oxygen saturation Oxygen saturation in Arterial blood by Pulse oximetry Inhaled oxygen flow rate Body mass index (BMI) Body weight Systolic blood pressure Diastolic blood pressure Provider Name and Address Organization Details Last Updated DateTime 4 177.8 cm 60 /min 98 [degF] 22 /min 99 % 99 % 4 L/min 19.8 kg/m2 73989.7 5 g 98 mm[Hg] 51 mm[Hg] Shikha Gan, [place] [address] [place], [address], [facility] 4 09:59:08 Date Recorded Heart rate Oxygen saturation Oxygen saturation in Arterial blood by Pulse oximetry Inhaled oxygen flow rate Respiratory rate Body temperature Systolic blood pressure Diastolic blood pressure Provider Name and Address Organization Details Last Updated DateTime 4 96 /min 92 % 92 % 3 L/min 22 /min 97.8 [degF] 82 mm[Hg] 55 mm[Hg] [place] [address] [place], [address], [facility] 4 02:49:17 Social History Question Answer Notes LastModified by Organizat ion Details LastModified Time Tobacco Smoking Status Current Every Day Smoker [place], [facility] 02/23/2024 23:12:45 What Is Your Level Of Alcohol Consumption? None Information not available 02/23/2024 What Is Your Code Status? Full Code Information not available 02/23/2024 What Is Your Relationship Status? Information not available 02/23/2024 At What Age Did You Start Smoking Tobacco? 20 Information not available 02/23/2024 How Much Tobacco Do You Smoke? 1 PPD Information not available 02/23/2024 Do You Use Any Illicit Or Recreational Drugs? No Information not available 02/23/2024 How Many Years Have You Smoked Tobacco? 50 Information not available 02/23/2024 Sex: Unknown Functional Status None recorded. Mental Status None recorded. Family History Relationship Description Onset Age of this Age Resolved Age Notes LastModified by Organization Details LastModified Time Mother Motor vehicle accident sspampinato Not available 01/31 23:10:41 Father Gunshot wound sspampinato Not available 01/31 23:10:49 Unspecified Relation Heart disease Siblin g sspampinato Not available 02/23/2024 23:11:10 Unspecified Relation History of cardiovascul ar disease sspampinato Not available 23:11:25 Medical History Condition Response Coronary Artery Disease (CAD) Y Hyperlipidemia Y COPD Y Fall Y Hypothyroidism Y Cancer -- Skin Y Cancer -- Thyroid Y Fracture Y GERD / Reflux Y Neuropathy Y Cancer -- Lung Y Hypertension Y Past Encounters Encounter ID Performer Location Encounter Start Date Encounter Closed Date Diagnosis/Indication Diagnosis SNOMED-CT Code Diagnosis ICD10 Code Diagnosis Note [id number] Shikha Gan NP [address] [address] 02/24/2024 12:08:49 03/01/2024 13:49:19 Tobacco user 454973580 Z72.0 Continue to encourage cessation upon discharge. Fall W19.XXXD mechanical with head strike, no LOC, with 18 hours on ground.Fal l precaution s in place.Cont inue therapies. Rhabdomyolysis 319873816 M62.82 SEE ABOVE...Re solved. Candidiasi s of the esophagus 67108129 B37.81 Hgb dropped from 12.8 to 7.8 while inpatient. Cause unclear. EGD done for anemia on 02/[address] Dre Banegas noted Severe suspected candidiasi s esophagiti s... in the hypopharyn x, proximal esophagus, mid-esopha yaneth, and distal esophagus. Almost entire esophagus appeared coated with white exudates. Also noted gastritis with friable and erosive changes but no active bleeding or ulceration s seen. Biopsies were taken. Colonoscop y was also performed without abnormal findings except for some polyps, which were resected.H e does continue on ASA 162 mg daily -- Monitor for need to hold/reduc e baby ASA in pt with esophagiti s.He is NOT on a PPI or H2 law[place]. Monitor for need.Start ed on Iron BID.Contin ue Fluconazol e x 10 days (03/04).F/U with GI as OP. Polyp of colon 98183654 K63.5 x 1 from cecum, biopsy tubular adenoma.F/ U with GI as OP. Erosive gastritis 531489 3880 474290 K29.70 SEE ABOVE... Gastro-eso phageal reflux disease with esophagitis 189784866 K21.00 SEE ABOVE... Pressure i njury of sacral region of back 368145862 L89.159 SWM to eval & treat. Continue offloading and wound care. Hypertensive disorder 38 764920 I10 Per history. Not on medication s at present.Co ntinue to trend blood pressures, monitor lytes and renal function, and add meds as clinically indicated. Hyperlipidemia 11098147 E78.5 Per history. Continue Simvastati n.F/U with cards as OP. Coronary arteriosclerosis 71211750 I25.10 s/p CABG.Madisyn nue baby ASA (for now), Ranexa, statin and PRN Nitro.F/U with cards as OP. Abdominal aortic aneurysm 413811095 I71.40 Imaging noted AAA 4.7 cm.F/U as OP for further evaluation /treatment options. Hypothyroidism 12222720 E03.9 Per history but pt is not on treatment. Has hx of thyroid cancer so possible this has resolved. Chronic ob structive pulmonary disease 32829080 J44.9 Stable at present. Continue Trelegy and PRN Duonebs. Chronic hy poxemic respiratory failure 614887446 J96.11 Stable. Wears 2L NC as OP.Current ly without concerns. Continue COPD regimen as above. Dysphagia 03679313 R13.1 0 MBS while inpatient read pharyngea l dysphagia with small amount of transient laryngeal penetratio n without aspiration with thin liquids. He is presently on a regular diet with minced/pavan st meat and thin liquids.Me dications are crushed in pudding, except his Ranexa, with which he struggles. ST following here. Monitor closely. Chronic esophagitis 4096 33617 K20.90 SEE ABOVE... Idiopathic peripheral neuropathy 91502627 G60.9 SEE ABOVE... Osteoarthritis 661916808 M19.90 Stable. Monitor for continued need for PRN Baclofen. History of malignant neoplasm of thyroid 885217501 Z85.850 Details unclear. History of malignant neoplasm of lung 518798949 Z85.110 Details unclear. s/p RUL partial lobectomy. Pneumonia 023416003 J18. 9 LLL PNA S/P treatment while inpatient. Respirator y status appears to be at baseline. Monitor closely. Retention of urine 19444 4002 R33.9 Cause/work -up unclear. Arguelles was placed which remains.Mo nitor for ability to attempt voiding trial. Consider checking UA if was not done while inpatient. Anemia 816950324 D64.9 SEE ABOVE... Hyponatremia 43959282 E8 7.1 Continue supportive treatment at present and monitor. Hypokalemia 59815659 E87 .6 K 3.3. Add KCl 20 meq daily. This may need to be changed to powder/liq uid if pt cannot swallow. Generalize d anxiety disorder 43906174 F41.1 Stable. Continue Escitalopr am and PRN Xanax. [id number] Shikha Gan NP [address] [place] [address] [place] [address] 02/27/2024 14:15:06 03/02/2024 13:43:43 Fall W19.XXXD Mechanical with head strike, no LOC, with 18 hours on ground.Fal l precaution s in place. Despite this, fell again overnight with bilateral elbow abrasions. Continue dressings as ordered. Monitor for infection. Continue therapies. Abrasion o f skin of elbow 285442553 S50.311D S50.312D SEE ABOVE... Rhabdomyolysis 618127638 M62.82 SEE ABOVE...Re solved. Pneumonia 873545283 J18. 9 LLL PNA S/P treatment while inpatient. Respirator y status appears to be at baseline. Monitor closely. Candidiasi s of the esophagus 71933070 B37.81 Hgb dropped from 12.8 to 7.8 while inpatient. Cause unclear. EGD done for anemia on 02/[address] Dre Banegas noted Severe suspected candidiasi s esophagiti s... in the hypopharyn x, proximal esophagus, mid-esopha yaneth, and distal esophagus. Almost entire esophagus appeared coated with white exudates. Also noted gastritis with friable and erosive changes but no active bleeding or ulceration s seen. Biopsies were taken. Colonoscop y was also performed without abnormal findings except for some polyps, which were resected.H e does continue on ASA 162 mg daily -- Monitor for need to hold/reduc e baby ASA in pt with esophagiti s.He is NOT on a PPI or H2 [place]. Monitor for need.Start ed on Iron BID.Contin ue Fluconazol e x 10 days (03/04).F/U with GI as OP. Erosive gastritis 257560 5957 705456 K29.70 SEE ABOVE... Chronic esophagitis 4096 26603 K20.90 SEE ABOVE... Gastro-eso phageal reflux disease with esophagitis 926891884 K21.00 SEE ABOVE... Anemia 596612558 D64.9 SEE ABOVE... Hypokalemia 16396270 E87 .6 Improved. Continue supplement and trend level.This may need to be changed to powder/liq uid if pt cannot swallow. Hyponatremia 66138205 E8 7.1 Add NaCl TID.Repeat labs on 02/28.May need fluid restrictio n. Dysphagia 72336081 R13.1 0 MBS while inpatient read pharyngea l dysphagia with small amount of transient laryngeal penetratio n without aspiration with thin liquids. He is presently on a regular diet with minced/pavan st meat and thin liquids.Me dications are crushed in pudding, except his Ranexa, with which he struggles. ST following here. Monitor closely. Polyp of colon 72211083 K63.5 x 1 from cecum, biopsy tubular adenoma.F/ U with GI as OP. Retention of urine 54212 4002 R33.9 Cause/work -up unclear. Arguelles was placed which remains.Mo nitor for ability to attempt voiding trial. Consider checking UA if was not done while inpatient. Pressure i njury of sacral region of back 485625904 L89.159 SWM to eval & treat. Continue offloading and wound care. Hypertensive disorder 38 519831 I10 Per history. Not on medication s at present.Co ntinue to trend blood pressures, monitor lytes and renal function, and add meds as clinically indicated. Hyperlipidemia 72173620 E78.5 Per history. Continue Simvastati n.F/U with cards as OP. Coronary arteriosclerosis 97523849 I25.10 s/p CABG.Madisyn nue baby ASA (for now), Ranexa, statin and PRN Nitro.F/U with cards as OP. Abdominal aortic aneurysm 937041382 I71.40 Imaging noted AAA 4.7 cm.F/U as OP for further evaluation /treatment options. Hypothyroidism 21106801 E03.9 Per history but pt is not on treatment. Has hx of thyroid cancer so possible this has resolved. Chronic ob structive pulmonary disease 09071983 J44.9 Stable at present. Continue Trelegy and PRN Duonebs. Chronic hy poxemic respiratory failure 170061052 J96.11 Stable. Wears 2L NC as OP.Current ly without concerns. Continue COPD regimen as above. Tobacco user 444709074 Z 72.0 Continue to encourage cessation upon discharge. Generalize d anxiety disorder 75926113 F41.1 Stable. Continue Escitalopr am and PRN Xanax. Osteoarthritis 947986626 M19.90 Stable. Monitor for continued need for PRN Baclofen. Idiopathic peripheral neuropathy 33439384 G60.9 SEE ABOVE... History of malignant neoplasm of thyroid 523974711 Z85.850 Details unclear. History of malignant neoplasm of lung 545872014 Z85.110 Details unclear. s/p RUL partial lobectomy. [id number] Edita Contreras, DO [address] [address] [place] [address] 02/28/2024 14:33:39 03/12/2024 15:12:28 Fall W19.XXXD Mechanical with head strike, no LOC, with 18 hours on ground.Fal l precaution s in place. Despite this, fell again overnight with bilateral elbow abrasions. Continue dressings as ordered. Monitor for infection. Continue therapies. Abrasion o f skin of elbow 254066010 S50.311D S50.312D SEE ABOVE... Hyponatremia 22136301 E8 7.1 continue NaCl TID.Repeat labs on 02/28.May need fluid restrictio n. Pneumonia 291477887 J18. 9 LLL PNA S/P treatment while inpatient. Respirator y status appears to be at baseline. Monitor closely. Candidiasi s of the esophagus 83652100 B37.81 Hgb dropped from 12.8 to 7.8 while inpatient. Cause unclear. EGD done for anemia on 02/[address] Dre Banegas noted Severe suspected candidiasi s esophagiti s... in the hypopharyn x, proximal esophagus, mid-esopha yaneth, and distal esophagus. Almost entire esophagus appeared coated with white exudates. Also noted gastritis with friable and erosive changes but no active bleeding or ulceration s seen. Biopsies were taken. Colonoscop y was also performed without abnormal findings except for some polyps, which were resected.H e does continue on ASA 162 mg daily -- Monitor for need to hold/reduc e baby ASA in pt with esophagiti s.He is NOT on a PPI or H2 [place]. Monitor for need.Start ed on Iron BID.Contin ue Fluconazol e x 10 days (03/04).F/U with GI as OP. Erosive gastritis 057695 9188 431833 K29.70 SEE ABOVE... Chronic esophagitis 4096 67774 K20.90 SEE ABOVE... Gastro-eso phageal reflux disease with esophagitis 228916106 K21.00 SEE ABOVE... Anemia 022298341 D64.9 SEE ABOVE... Hypokalemia 58568410 E87 .6 Improved. Continue supplement and trend level.This may need to be changed to powder/liq uid if pt cannot swallow. Dysphagia 73136809 R13.1 0 MBS while inpatient read pharyngea l dysphagia with small amount of transient laryngeal penetratio n without aspiration with thin liquids. He is presently on a regular diet with minced/pavan st meat and thin liquids.Me dications are crushed in pudding, except his Ranexa, with which he struggles. ST following here. Monitor closely. Polyp of colon 09795931 K63.5 x 1 from cecum, biopsy tubular adenoma.F/ U with GI as OP. Retention of urine 05418 4002 R33.9 Cause/work -up unclear. Arguelles was placed which remains.vo iding trial in am, check UA due to leukocytos is Pressure i njury of sacral region of back 278408174 L89.159 SWM to eval & treat. Continue offloading and wound care. Hypertensive disorder 38 845296 I10 Per history. Not on medication s at presentblo od pressures have been low at times - improved with pushing fluidscont inue to trend blood pressures Hyperlipidemia 36580428 E78.5 Per history. Continue Simvastati n.F/U with cards as OP. Coronary arteriosclerosis 92006498 I25.10 s/p CABG.Madisyn nue baby ASA (for now), Ranexa, statin and PRN Nitro.F/U with cards as OP. Abdominal aortic aneurysm 632678643 I71.40 Imaging noted AAA 4.7 cm.F/U as OP for further evaluation /treatment options. Hypothyroidism 34764281 E03.9 Per history but pt is not on treatment. consider checking thyroid studies in the setting of hyponatrem ia - inpatient records are limited so not sure if these labs have recently been done Chronic ob structive pulmonary disease 05289119 J44.9 Stable at present. Continue Trelegy and PRN Duonebs. Chronic hy poxemic respiratory failure 422526967 J96.11 Stable. Wears 2L NC as OP.Current ly without concerns. Continue COPD regimen as above. Tobacco user 215112661 Z 72.0 Continue to encourage cessation upon discharge. Generalize d anxiety disorder 30001460 F41.1 Stable. Continue Escitalopr am and PRN Xanax. Osteoarthritis 366333914 M19.90 Stable. Monitor for continued need for PRN Baclofen. Idiopathic peripheral neuropathy 40775143 G60.9 SEE ABOVE... History of malignant neoplasm of thyroid 317672849 Z85.850 Details unclear. History of malignant neoplasm of lung 564551633 Z85.110 Details unclear. s/p RUL partial lobectomy. Rhabdomyolysis 372226162 M62.82 SEE ABOVE...Re solved. [id number] Shikha Gan, [place] [address] [place] [address] [place] [address] 03/01/2024 09:57:44 03/12/2024 15:28:08 Fall 7406578 W19.XXXD Mechanical with head strike, no LOC, with 18 hours on ground.Fal l precaution s in place. Despite this, fell again overnight with bilateral elbow abrasions. Continue dressings as ordered. Monitor for infection. Continue therapies. Abrasion o f skin of elbow 375863280 S50.311D S50.312D SEE ABOVE... Hyponatremia 99388522 E8 7.1 Worsening despite addition of NaCl TID.Send to ER for evaluation .May need dose reduction of Escitalopr am if hyponatrem ia otherwise is not responsive . Pneumonia 028742355 J18. 9 LLL PNA S/P treatment while inpatient. Respirator y status appears to be at baseline. Monitor closely. Candidiasi s of the esophagus 49399532 B37.81 Hgb dropped from 12.8 to 7.8 while inpatient. Cause unclear. EGD done for anemia on 02/[address] Dre Banegas noted Severe suspected candidiasi s esophagiti s... in the hypopharyn x, proximal esophagus, mid-esopha yaneth, and distal esophagus. Almost entire esophagus appeared coated with white exudates. Also noted gastritis with friable and erosive changes but no active bleeding or ulceration s seen. Biopsies were taken. Colonoscop y was also performed without abnormal findings except for some polyps, which were resected.H austin was on ASA 162 mg daily -- Have stopped due to worsening anemia and gastritis/ esophagiti s.He was not on a PPI, started here.Start ed on Iron BID.Contin ue Fluconazol e x 10 days (03/04).F/U with GI as OP. Erosive gastritis 127520 3323 317238 K29.70 SEE ABOVE... Chronic esophagitis 4096 20774 K20.90 SEE ABOVE... Gastro-eso phageal reflux disease with esophagitis 865777310 K21.00 SEE ABOVE... Anemia 356544967 D64.9 SEE ABOVE... Hypokalemia 12781129 E87 .6 Improved. Continue supplement and trend level.This may need to be changed to powder/liq uid if pt cannot swallow. Dysphagia 07168128 R13.1 0 MBS while inpatient read pharyngea l dysphagia with small amount of transient laryngeal penetratio n without aspiration with thin liquids. He is presently on a regular diet with minced/pavan st meat and thin liquids.Me dications are crushed in pudding, except his Ranexa, with which he struggles. ST following here. Monitor closely. Polyp of colon 81962803 K63.5 x 1 from cecum, biopsy tubular adenoma.F/ U with GI as OP. Retention of urine 39404 4002 R33.9 Cause/work -up unclear. Arguelles was placed, removed on 02/28.Staf f notes he has been voiding without concerns.U A on 02/28 was normal, did not meet criteria to reflex to cx. Pressure i njury of sacral region of back 476383201 L89.159 SWM to eval & treat. Continue offloading and wound care. Hypertensive disorder 38 550999 I10 Per history. Not on medication s at presentBlo od pressures have been low at times - improved with pushing fluids.Con tinue to trend blood pressures, monitor lytes and renal function, and add meds as clinically indicated. Hyperlipidemia 87126823 E78.5 Per history. Continue Simvastati n.F/U with cards as OP. Coronary arteriosclerosis 53582372 I25.10 s/p CABG.Have stopped baby ASA due to gastritis/ esophagiti s & anemia.Con tinue Ranexa, statin, and PRN Nitro.F/U with cards as OP. Abdominal aortic aneurysm 163354336 I71.40 Imaging noted AAA 4.7 cm.F/U as OP for further evaluation /treatment options. Hypothyroidism 10864270 E03.9 Per history but pt is not on treatment. Consider checking thyroid studies in the setting of hyponatrem ia. Inpatient records are limited. Chronic ob structive pulmonary disease 42465063 J44.9 Stable at present. Continue Trelegy and PRN Duonebs. Chronic hy poxemic respiratory failure 778101021 J96.11 Stable. Wears 2L NC as OP.Current ly without concerns. Continue COPD regimen as above. Tobacco user 590638494 Z 72.0 Continue to encourage cessation upon discharge. Generalize d anxiety disorder 87088438 F41.1 Stable. Continue Escitalopr am and PRN Xanax.May need dose reduction of Escitalopr am if hyponatrem ia otherwise is not responsive . Osteoarthritis 270522927 M19.90 Stable. Monitor for continued need for PRN Baclofen. Idiopathic peripheral neuropathy 96869555 G60.9 SEE ABOVE... History of malignant neoplasm of thyroid 682867864 Z85.850 Details unclear. History of malignant neoplasm of lung 350674841 Z85.110 Details unclear. s/p RUL partial lobectomy. Rhabdomyolysis 092926552 M62.82 SEE ABOVE...Re solved. [id number] Edita Contreras, [facility] [address] [place] [address] 03/04/2024 22:08:51 03/12/2024 16:01:46 Hyponatremia 50258246 E87.1 continue NaCl TIDf/u labs are ordered for am - if continued worsening, will place fluid restrictio n, consider d/c of SSRI, resume synthroid (will clarify dosing with PCP in AM) Candidiasi s of the esophagus 78540767 B37.81 Hgb dropped from 12.8 to 7.8 while inpatient. Cause unclear. EGD done for anemia on 02/[address] Dre Banegas noted Severe suspected candidiasi s esophagiti s... in the hypopharyn x, proximal esophagus, mid-esopha yaneth, and distal esophagus. Almost entire esophagus appeared coated with white exudates. Also noted gastritis with friable and erosive changes but no active bleeding or ulceration s seen. Biopsies were taken. Colonoscop y was also performed without abnormal findings except for some polyps, which were resected.Poli avila was on ASA 162 mg daily which has been stopped due to worsening anemia and gastritis/ esophagiti s.He was not on a PPI, started here.Start ed on Iron BID.he has completed Fluconazol e /U with GI as OP. Erosive gastritis 845321 4237 182309 K29.70 SEE ABOVE... Chronic esophagitis 4096 41457 K20.90 SEE ABOVE... Gastro-eso phageal reflux disease with esophagitis 805949855 K21.00 SEE ABOVE... Anemia 670156447 D64.9 SEE ABOVE... Pneumonia 693124765 J18. 9 LLL PNA S/P treatment while inpatient. Respirator y status appears to be at baseline. Monitor closely. fall W19.XXXD Mechanical with head strike, no LOC, with 18 hours on ground.Fal l precaution s in place. Despite this, he has had recurrent falls hereContin ue wound care for UE skin tears. Monitor for infection. Continue therapies. unclear if the patient has had recent Vitamin B12 or Vitamin D levels checked as we are unable to access [facility] medical records Abrasion o f skin of elbow 244158046 S50.311D S50.312D SEE ABOVE... Hypokalemia 77627982 E87 .6 Improved. Continue supplement and trend levels Dysphagia 86195790 R13.1 0 MBS while inpatient read pharyngea l dysphagia with small amount of transient laryngeal penetratio n without aspiration with thin liquids. He is presently on a regular diet with minced/pavan st meat and thin liquids.Me dications are crushed in pudding, except his Ranexa, with which he struggles. ST following here. Monitor closely. Polyp of colon 29515909 K63.5 x 1 from cecum, biopsy tubular adenoma.F/ U with GI as OP. Retention of urine 55029 4002 R33.9 Cause/work -up unclear. Arguelles was placed, removed on 02/28.Staf f notes he has been voiding without concerns.U A on 02/28 was normal, did not meet criteria to reflex to cx. Pressure i njury of sacral region of back 388066642 L89.159 SWM to eval & treat. Continue offloading and wound care. Hypertensive disorder 38 441713 I10 Per history. Not on medication s at presentBlo od pressures have been low at times - improved with pushing fluids - he has not required IV fluids although may need to consider due to hyponatrem iaContinue to trend blood pressures, monitor lytes and renal function, and add meds as clinically indicated. Hyperlipidemia 20251704 E78.5 Per history. Continue Simvastati n.F/U with cards as OP. Coronary arteriosclerosis 07569122 I25.10 s/p CABG.Have stopped baby ASA due to gastritis/ esophagiti s & anemia.Con tinue Ranexa, statin, and PRN Nitro.F/U with cards as OP. Abdominal aortic aneurysm 636851164 I71.40 Imaging noted AAA 4.7 cm.F/U as OP for further evaluation /treatment options. Hypothyroidism 30790228 E03.9 SEE ABOVE..... .will clarify with PCP and/or pharmacy in am synthroid dose and plan to resumethyr oid studies are ordered for AM Chronic ob structive pulmonary disease 90719815 J44.9 Stable at present. Continue Trelegy and PRN Duonebs. Chronic hy poxemic respiratory failure 450499465 J96.11 Stable. Wears 2L NC as OP.Current ly without concerns. Continue COPD regimen as above. Tobacco user 033172145 Z 72.0 Continue to encourage cessation upon discharge. Generalize d anxiety disorder 39423575 F41.1 Stable. Continue Escitalopr am and PRN Xanax.May need to dose reduce or d/c altogether Lexapro due to hyponatrem ia Osteoarthritis 748954335 M19.90 Stable. Monitor for continued need for PRN Baclofen. Idiopathic peripheral neuropathy 95451303 G60.9 SEE ABOVE... History of malignant neoplasm of thyroid 286115327 Z85.850 Details unclear. History of malignant neoplasm of lung 515111907 Z85.110 Details unclear. s/p RUL partial lobectomy. Rhabdomyolysis 798922807 M62.82 SEE ABOVE...Re solved. [id number] Shikha Gan NP [address] [address] 03/06/2024 08:58:29 03/08/2024 15:20:31 Hyponatremia 58400904 E87.1 Continue NaCl TID. Sent to [facility] ER on 03/01 due to worsening hyponatrem ia, however they sent him back the same day with NNO as they said his baseline Na is low 120s. However, he was 130s when at [facility] prior...St art 1.5 L fluid restrictio n.Hopefull y will see improvemen t with resumption of Levothyrox ine on 03/05.May need to reduce or stop Lexapro.La bs (CBC, BMP, CRP) on 03/08. Candidiasi s of the esophagus 09907091 B37.81 Hgb dropped from 12.8 to 7.8 while inpatient. Cause unclear. EGD done for anemia on 02/[address] Dre Banegas noted Severe suspected candidiasi s esophagiti s... in the hypopharyn x, proximal esophagus, mid-esopha yaneth, and distal esophagus. Almost entire esophagus appeared coated with white exudates. Also noted gastritis with friable and erosive changes but no active bleeding or ulceration s seen. Biopsies were taken. Colonoscop y was also performed without abnormal findings except for some polyps, which were resected.Poli avila was on ASA 162 mg daily which has been stopped due to worsening anemia and gastritis/ esophagiti s.He was not on a PPI, started here.Start ed on Iron BID.Comple nixon Fluconazol e course on 03/04.F/U with GI as OP. Erosive gastritis 070999 2206 720912 K29.70 SEE ABOVE... Chronic esophagitis 4096 99070 K20.90 SEE ABOVE... Gastro-eso phageal reflux disease with esophagitis 038564757 K21.00 SEE ABOVE... Anemia 752677703 D64.9 SEE ABOVE... Pneumonia 894411800 J18. 9 LLL PNA S/P treatment while inpatient. Respirator y status appears to be at baseline. Monitor closely. Fall W19.XXXD Mechanical with head strike, no LOC, with 18 hours on ground.Fal l precaution s in place. Despite this, he has had recurrent falls hereContin ue wound care for UE skin tears. Monitor for infection. Continue therapies. Unclear if the patient has had recent Vitamin B12 or Vitamin D levels checked as we are unable to access [facility] medical records. Consider checking while here. Abrasion o f skin of elbow 193285537 S50.311D S50.312D SEE ABOVE... Hypokalemia 18302664 E87 .6 Improved. Continue supplement and trend levels. Dysphagia 58852261 R13.1 0 MBS while inpatient read pharyngea l dysphagia with small amount of transient laryngeal penetratio n without aspiration with thin liquids. He is presently on a regular diet with minced/pavan st meat and thin liquids.Me dications are crushed in pudding, except his Ranexa.ST following here. Monitor closely. Polyp of colon 58853349 K63.5 x 1 from cecum, biopsy tubular adenoma.F/ U with GI as OP. Retention of urine 75176 4002 R33.9 Cause/work -up unclear. Arguelles was placed, removed on 02/28.Staf f notes he has been voiding without concerns.U A on 02/28 was normal, did not meet criteria to reflex to cx. Pressure i njury of sacral region of back 174543616 L89.159 SWM to eval & treat. Continue offloading and wound care. Hypertensive disorder 38 251888 I10 Per history. Not on medication s at presentBlo od pressures have been low at times - improved with pushing fluids. He has not required IV fluids although may need to consider due to hyponatrem ia.Continu e to trend blood pressures, monitor lytes and renal function, and add meds as clinically indicated. Hyperlipidemia 97295096 E78.5 Per history. Continue Simvastati n.F/U with cards as OP. Coronary arteriosclerosis 73638688 I25.10 s/p CABG.Have stopped baby ASA due to gastritis/ esophagiti s & anemia.Con tinue Ranexa, statin, and PRN Nitro.F/U with cards as OP. Abdominal aortic aneurysm 194502781 I71.40 Imaging noted AAA 4.7 cm.F/U as OP for further evaluation /treatment options. Hypothyroidism 75662562 E03.9 SEE ABOVE..... .Dr. Contreras clarified with PCP and resumed Levothyrox ine at 175 mcg daily on 03/05.Thyro id studies remain pending. Chronic ob structive pulmonary disease 29766129 J44.9 Stable at present. Continue Trelegy and PRN Duonebs. Chronic hy poxemic respiratory failure 785676059 J96.11 Stable. Wears 2L NC as OP.Current ly without concerns. Continue COPD regimen as above. Tobacco user 181269893 Z 72.0 Continue to encourage cessation upon discharge. Generalize d anxiety disorder 15577787 F41.1 Stable. Continue Escitalopr am and PRN Xanax.May need to dose reduce or d/c altogether Lexapro due to hyponatrem ia. Osteoarthritis 002515543 M19.90 Stable. Monitor for continued need for PRN Baclofen. Idiopathic peripheral neuropathy 92552290 G60.9 SEE ABOVE... History of malignant neoplasm of thyroid 234374407 Z85.850 Details unclear. History of malignant neoplasm of lung 726249244 Z85.110 Details unclear. s/p RUL partial lobectomy. Rhabdomyolysis 002933291 M62.82 SEE ABOVE...Re solved. [id number] Edita Contreras, [place] [address] [address] [place] [address] 03/07/2024 17:11:25 03/12/2024 16:32:47 Altered mental status 414083284 R41.82 likely related to hyponatrem ia although need to r/o intracrani al pathology/ infection as well Hyponatremia 93398299 E8 7.1 unclear etiology - this has been reported by patient and family as chroniche has been placed on NaCl TID, a fluid restrictio n, synthroid resumed without improvemen tneed to r/o adrenal insufficie ncy which is challengin g in this setting (cortisol ordered 03/05 remains pending)in light of abrupt change in condition, sending back to the acute setting for further evaluation /treatment /specialis t consultati on Low blood pressure 08950 003 I95.9 see above - EMS here / IV access obtained and IV fluids to start enroute to ER Health Concerns Section Related Observation LastModified by Organization Detai ls LastModified Time None Recorded Concern Status LastModified by Organization Details LastModified Time None Recorded Advance Directives Directive None Recorded Payers Encounter Date Sequence Insurance Name Policy Number Policy Sebastian Covered Member ID Sebastian Member ID Guarantor Name 02/28/2024 1 [place] Cecilio Ty Oak [id number] Cecilio Ty Oak 02/28/2024 2 [employer] (MEDICARE SUPPLEMENT) Cecilio Ty Oak [id number] Cecilio Ty Oak 03/01/2024 1 [place] Cecilio Ty Oak [id number] Cecilio Ty Oak 03/01/2024 2 [employer] (MEDICARE SUPPLEMENT) Cecilio Ty Oak [id number] Cecilio Ty Oak 03/04/2024 1 [place] Cecilio Ty Oak [id number] Cecilio Ty Oak 03/04/2024 2 [employer] (MEDICARE SUPPLEMENT) Cecilio Ty Oak [id number] Cecilio Ty Oak 03/06/2024 1 [place] Cecilio Ty Oak [id number] Cecilio Ty Oak 03/06/2024 2 [employer] (MEDICARE SUPPLEMENT) Cecilio Petersoner [id number] Cecilio Petersoner 03/07/2024 1 [place] Cecilio Bergeron [id number] Cecilio Petersoner 03/07/2024 2 [employer] (MEDICARE SUPPLEMENT) Cecilio Petersoner [id number] Cecilio Bergeron Notes Date Note Type Note Provider Name and Address Organization Details Recorded Time 02/28/2024 text/html 73-year-old cauc male with PMH of HTN, HLD, CAD s/p CABG, AAA (4.7 cm), Hypothyroidism, COPD with Chronic Hypoxemic Resp. Failure, Tobacco Use, GERD, Dysphagia, Hx of Lymphocytic Esophagitis, Peripheral Neuropathy, OA, and Hx of Thyroid & Lung Cancer s/p RUL partial lobectomy presenting to this facility for rehabilitation following hospitalization at [facility] from 02/15 to 02/22/24 for fall prolonged amount of time down with rhabdomyolysis, Pneumonia, urinary retention, dysphagia, candidal esophagitis & gastritis, debility, anemia, and chronic medical conditions. Cecilio lives by himself in a mobile home. He suffered a mechanical fall with head strike (no LOC) and was unable to get up. He lie on the ground for 18 hours before he was found by his brother. He was taken to [facility] and admitted with rhabdomyolysis and was found to have a LLL pneumonia. Hgb dropped from 12.3 as low as 7.8. EGD noted suspected severe candidiasis esophagitis and gastritis with friable and erosive changes but no active bleeding or ulcerations seen. Biopsies were taken, confirming candidal esophagitis with mild reactive changes, negative H. pylori and otherwise histologically normal. Colonoscopy was also performed without abnormal findings except for a polyp in the cecum, which was resected/biopsied. This was read as a tubular adenoma. He was also noted to have urinary retention, for which a arguelles catheter was placed and remains. He has had long-standing dysphagia since the mid-, per the patient. He has a hx of lymphocytic esophagitis and esophageal narrowing s/p dilatation in November 2022. MBS on 02/16 while inpatient read, pharyngeal dysphagia with small amount of transient laryngeal penetration without aspiration with thin liquids. He is presently on a regular diet with minced/moist meat and thin liquids. Medications are crushed in pudding, except his Ranexa, with which he struggles. He has been discharged to this facility on oral Fluconazole x 10 days. 02/24/24Terry is seated in the common area, drinking a soda. He is noted to cough after drinking it. is nearby and comes to evaluate him. He tells me he has been coughing like this since before his hospitalization and that it was not related to drinking the soda. He tells me his cough is only occasionally productive of clear/white/yellow sputum. He is alert & oriented but is not a good historian, appears to change details of his history to explain away/minimize some of his chronic issues. It appears this is in an effort to discharge home, as he tells me he doesn't think he needs to be here. Meanwhile, he also tells me he feels like shit but cannot give me specifics of what is bothering him. He tells me he needs a breathing treatment and I pass this on to nursing. His lungs are diminished with RUL (likely overlying previous lobectomy) crackles. No wheezing or respiratory concerns noted on exam. He is on 2L NC at present. VSS. Staff is otherwise without concerns. He is a full code.Cards Dr. Hanna RINCON - brother is primary contact - not on O2 at home 02/27/24Terry is resting in bed, a poor historian, reporting pain to his right shoulder, bilateral elbows, and left lateral ribs. Bilateral elbows are unable to be assessed as he has dressings in place from skin tears which required frequent bandaging and reinforcement due to bleeding through his bandages. He fell overnight and CXRs have been ordered but not yet obtained. Per nursing notes around 3:45 this morning: This nurse heard noise and guest yelling Help! and observed guest lying on his back in the hallway with walker beside him. Call light was not on but was clipped to assist rail. Guest alert with confusion per his usual LOC. Guest stated he was going to pull the fire alarm and was yelling Call the police! Staff attempted to calm and reorient guest. Guest assessed. Large skin tear to right elbow and small skin tear to left arm reopened. Arguelles catheter in place by drainage bag unhooked. Staff assisted guest up to wheelchair and back to room. Skin tears cleaned and dressings applied. Guest assisted back to bed. Bed placed in lowest position with mat on the floor. Guest continued to yell out Call the police! PRN anxiety medication given for agitation and PRN Tylenol given per standing order for c/o pain. Guest could not say if pain was new pain or chronic pain he has to shoulders due to confusion. Neuro-checks and vital signs started and ENVIRONMENTAL HEALTH PHYSICIAN sitting outside room for observation.. Nursing notes that he had a similar episode while he was inpatient. Labwork received from this morning is still pending but does note a Na level of 128. His neurological status is at baseline compared to my previous visit with him on 02/23. VSS. Staff is otherwise without concerns. 02/28/24Terry is lying in bed this afternoon. He is weak and tired - has not been up much today. He remains SOB and with an occasional cough. Arguelles remains in place. Blood pressure was low this AM but improved with pushing fluids. He has eaten 100% of his breakfast and lunch and is drinking some water when I enter the room today. Labs from yesterday: Na 126, Creatinine 0.5, WBC 11.1. UA has been ordered in response to elevated [place] [address] [place], [address], [facility] 03/05/2024 07:28:21 03/01/2024 text/html F/U Hyponatremia , anemia, fall with rhabdomyolysis, pneumonia, urinary retention, dysphagia, candidal esophagitis & gastritis, debility, and chronic medical conditions.--- 4Terry is seated in the common area, drinking a soda. He is noted to cough after drinking it. ST is nearby and comes to evaluate him. He tells me he has been coughing like this since before his hospitalization and that it was not related to drinking the soda. He tells me his cough is only occasionally productive of clear/white/yellow sputum. He is alert & oriented but is not a good historian, appears to change details of his history to explain away/minimize some of his chronic issues. It appears this is in an effort to discharge home, as he tells me he doesn't think he needs to be here. Meanwhile, he also tells me he feels like shit but cannot give me specifics of what is bothering him. He tells me he needs a breathing treatment and I pass this on to nursing. His lungs are diminished with RUL (likely overlying previous lobectomy) crackles. No wheezing or respiratory concerns noted on exam. He is on 2L NC at present. VSS. Staff is otherwise without concerns.---02/27/24 divya is resting in bed, a poor historian, reporting pain to his right shoulder, bilateral elbows, and left lateral ribs. Bilateral elbows are unable to be assessed as he has dressings in place from skin tears which required frequent bandaging and reinforcement due to bleeding through his bandages. He fell overnight and CXRs have been ordered but not yet obtained. Per nursing notes around 3:45 this morning: This nurse heard noise and guest yelling Help! and observed guest lying on his back in the hallway with walker beside him. Call light was not on but was clipped to assist rail. Guest alert with confusion per his usual LOC. Guest stated he was going to pull the fire alarm and was yelling Call the police! Staff attempted to calm and reorient guest. Guest assessed. Large skin tear to right elbow and small skin tear to left arm reopened. Arguelles catheter in place by drainage bag unhooked. Staff assisted guest up to wheelchair and back to room. Skin tears cleaned and dressings applied. Guest assisted back to bed. Bed placed in lowest position with mat on the floor. Guest continued to yell out Call the police! PRN anxiety medication given for agitation and PRN Tylenol given per standing order for c/o pain. Guest could not say if pain was new pain or chronic pain he has to shoulders due to confusion. Neuro-checks and vital signs started and ENVIRONMENTAL HEALTH PHYSICIAN sitting outside room for observation.. Nursing notes that he had a similar episode while he was inpatient. Labwork received from this morning is still pending but does note a Na level of 128. His neurological status is at baseline compared to my previous visit with him on 02/23. VSS. Staff is otherwise without concerns.---02/28/24 divya is lying in bed this afternoon. He is weak and tired - has not been up much today. He remains SOB and with an occasional cough. Arguelles remains in place. Blood pressure was low this AM but improved with pushing fluids. He has eaten 100% of his breakfast and lunch and is drinking some water when I enter the room today. Labs from yesterday: Na 126, Creatinine 0.5, WBC 11.1. UA has been ordered in response to elevated WBC count.---03/01/24Terr y is seated in the [facility], a fair historian, his largest concern is his cough. He is producing white sputum and coughing rather persistently. He notes he does not typically utilize nebulizers as OP but he has been requesting them 3-4 times a day here. He is requesting something to help with his cough. He otherwise feels that his respiratory status is stable and at baseline. We have been watching his Hgb & Na levels closely and stopped his ASA and started high-dose PPI on 02/28 due to suspicion to GI loss. He denies any melena and notes he hasn't had a BM in a few days. Labwork returns today showing that while his Hgb is holding steady between 6.9-7.1, his Na has continued to downtrend despite addition of 1g NaCl orally on 02/27. It was 127, now 124. I have consulted with Dr. Contreras and elect to send to ER for evaluation of worsening hyponatremia per nephrology as well as possible blood or iron transfusion for anemia. His arguelles catheter was removed on 02/27 and he has been voiding without concerns since. VSS except BPs have been soft. Shikha Gan, SILK PRINTER [address] [facility], [place], [address], [facility] [place] [facility] 03/05/2024 07:57:36 03/04/2024 text/html F/U Hyponatremia , anemia, fall with rhabdomyolysis, pneumonia, urinary retention, dysphagia, candidal esophagitis & gastritis, debility, and chronic medical conditions.--- 4Terry is seated in the common area, drinking a soda. He is noted to cough after drinking it. ST is nearby and comes to evaluate him. He tells me he has been coughing like this since before his hospitalization and that it was not related to drinking the soda. He tells me his cough is only occasionally productive of clear/white/yellow sputum. He is alert & oriented but is not a good historian, appears to change details of his history to explain away/minimize some of his chronic issues. It appears this is in an effort to discharge home, as he tells me he doesn't think he needs to be here. Meanwhile, he also tells me he feels like shit but cannot give me specifics of what is bothering him. He tells me he needs a breathing treatment and I pass this on to nursing. His lungs are diminished with RUL (likely overlying previous lobectomy) crackles. No wheezing or respiratory concerns noted on exam. He is on 2L NC at present. VSS. Staff is otherwise without concerns.---02/27/24T divya is resting in bed, a poor historian, reporting pain to his right shoulder, bilateral elbows, and left lateral ribs. Bilateral elbows are unable to be assessed as he has dressings in place from skin tears which required frequent bandaging and reinforcement due to bleeding through his bandages. He fell overnight and CXRs have been ordered but not yet obtained. Per nursing notes around 3:45 this morning: This nurse heard noise and guest yelling Help! and observed guest lying on his back in the hallway with walker beside him. Call light was not on but was clipped to assist rail. Guest alert with confusion per his usual LOC. Guest stated he was going to pull the fire alarm and was yelling Call the police! Staff attempted to calm and reorient guest. Guest assessed. Large skin tear to right elbow and small skin tear to left arm reopened. Arguelles catheter in place by drainage bag unhooked. Staff assisted guest up to wheelchair and back to room. Skin tears cleaned and dressings applied. Guest assisted back to bed. Bed placed in lowest position with mat on the floor. Guest continued to yell out Call the police! PRN anxiety medication given for agitation and PRN Tylenol given per standing order for c/o pain. Guest could not say if pain was new pain or chronic pain he has to shoulders due to confusion. Neuro-checks and vital signs started and ENVIRONMENTAL HEALTH PHYSICIAN sitting outside room for observation.. Nursing notes that he had a similar episode while he was inpatient. Labwork received from this morning is still pending but does note a Na level of 128. His neurological status is at baseline compared to my previous visit with him on 02/23. VSS. Staff is otherwise without concerns.---02/28/24T divya is lying in bed this afternoon. He is weak and tired - has not been up much today. He remains SOB and with an occasional cough. Arguelles remains in place. Blood pressure was low this AM but improved with pushing fluids. He has eaten 100% of his breakfast and lunch and is drinking some water when I enter the room today. Labs from yesterday: Na 126, Creatinine 0.5, WBC 11.1. UA has been ordered in response to elevated WBC count. ---03/01/24Terry is seated in the [facility] area, a fair historian, his largest concern is his cough. He is producing white sputum and coughing rather persistently. He notes he does not typically utilize nebulizers as OP but he has been requesting them 3-4 times a day here. He is requesting something to help with his cough. He otherwise feels that his respiratory status is stable and at baseline. We have been watching his Hgb & Na levels closely and stopped his ASA and started high-dose PPI on 02/28 due to suspicion to GI loss. He denies any melena and notes he hasn't had a BM in a few days. Labwork returns today showing that while his Hgb is holding steady between 6.9-7.1, his Na has continued to downtrend despite addition of 1g NaCl orally on 02/27. It was 127, now 124. I have consulted with Dr. Contreras and elect to send to ER for evaluation of worsening hyponatremia per nephrology as well as possible blood or iron transfusion for anemia. His arguelles catheter was removed on 02/27 and he has been voiding without concerns since. VSS except BPs have been soft.---03/04/24f/u with the patient this evening related to anemia and hyponatremia. He was sent to the ER 03/01 with labs at [facility] showing a Hb of 8.6 so he was returned to the facility without new orders. He had a f/u lab draw 03/02 with Hb of 8.6 and Na of 122. He has remained on NaCl TID for now. No fluid restriction due to hypotension. The patient is sitting up in his wheelchair at the bedside. Respiratory status is stable on supplemental O2. He is weak and very tired but otherwise, does not voice specific concerns. No new nursing concerns. He has not required straight catheterization since arguelles removal last [place] [address] [place], [address], [facility] [place] [facility] 03/08/2024 02:45:47 03/06/2024 text/html F/U Hyponatremia , anemia, fall with rhabdomyolysis, pneumonia, urinary retention, dysphagia, candidal esophagitis & gastritis, debility, and chronic medical conditions.--- 4Terry is seated in the common area, drinking a soda. He is noted to cough after drinking it. is nearby and comes to evaluate him. He tells me he has been coughing like this since before his hospitalization and that it was not related to drinking the soda. He tells me his cough is only occasionally productive of clear/white/yellow sputum. He is alert & oriented but is not a good historian, appears to change details of his history to explain away/minimize some of his chronic issues. It appears this is in an effort to discharge home, as he tells me he doesn't think he needs to be here. Meanwhile, he also tells me he feels like shit but cannot give me specifics of what is bothering him. He tells me he needs a breathing treatment and I pass this on to nursing. His lungs are diminished with RUL (likely overlying previous lobectomy) crackles. No wheezing or respiratory concerns noted on exam. He is on 2L NC at present. VSS. Staff is otherwise without concerns.---02/27/24T divya is resting in bed, a poor historian, reporting pain to his right shoulder, bilateral elbows, and left lateral ribs. Bilateral elbows are unable to be assessed as he has dressings in place from skin tears which required frequent bandaging and reinforcement due to bleeding through his bandages. He fell overnight and CXRs have been ordered but not yet obtained. Per nursing notes around 3:45 this morning: This nurse heard noise and guest yelling Help! and observed guest lying on his back in the hallway with walker beside him. Call light was not on but was clipped to assist rail. Guest alert with confusion per his usual LOC. Guest stated he was going to pull the fire alarm and was yelling Call the police! Staff attempted to calm and reorient guest. Guest assessed. Large skin tear to right elbow and small skin tear to left arm reopened. Arguelles catheter in place by drainage bag unhooked. Staff assisted guest up to wheelchair and back to room. Skin tears cleaned and dressings applied. Guest assisted back to bed. Bed placed in lowest position with mat on the floor. Guest continued to yell out Call the police! PRN anxiety medication given for agitation and PRN Tylenol given per standing order for c/o pain. Guest could not say if pain was new pain or chronic pain he has to shoulders due to confusion. Neuro-checks and vital signs started and ENVIRONMENTAL HEALTH PHYSICIAN sitting outside room for observation.. Nursing notes that he had a similar episode while he was inpatient. Labwork received from this morning is still pending but does note a Na level of 128. His neurological status is at baseline compared to my previous visit with him on 02/23. VSS. Staff is otherwise without concerns.---02/28/24T divya is lying in bed this afternoon. He is weak and tired - has not been up much today. He remains SOB and with an occasional cough. Arguelels remains in place. Blood pressure was low this AM but improved with pushing fluids. He has eaten 100% of his breakfast and lunch and is drinking some water when I enter the room today. Labs from yesterday: Na 126, Creatinine 0.5, WBC 11.1. UA has been ordered in response to elevated WBC count.---03/01/24Terr zane is seated in the [facility] area, a fair historian, his largest concern is his cough. He is producing white sputum and coughing rather persistently. He notes he does not typically utilize nebulizers as OP but he has been requesting them 3-4 times a day here. He is requesting something to help with his cough. He otherwise feels that his respiratory status is stable and at baseline. We have been watching his Hgb & Na levels closely and stopped his ASA and started high-dose PPI on 02/28 due to suspicion to GI loss. He denies any melena and notes he hasn't had a BM in a few days. Labwork returns today showing that while his Hgb is holding steady between 6.9-7.1, his Na has continued to downtrend despite addition of 1g NaCl orally on 02/27. It was 127, now 124. I have consulted with Dr. Contreras and elect to send to ER for evaluation of worsening hyponatremia per nephrology as well as possible blood or iron transfusion for anemia. His arguelles catheter was removed on 02/27 and he has been voiding without concerns since. VSS except BPs have been soft.---03/04/24f/u with the patient this evening related to anemia and hyponatremia. He was sent to the ER 03/01 with labs at [facility] showing a Hb of 8.6 so he was returned to the facility without new orders. He had a f/u lab draw 03/02 with Hb of 8.6 and Na of 122. He has remained on NaCl TID for now. No fluid restriction due to hypotension. The patient is sitting up in his wheelchair at the bedside. Respiratory status is stable on supplemental O2. He is weak and very tired but otherwise, does not voice specific concerns. No new nursing concerns. He has not required straight catheterization since arguelles removal last week.---03/06/24Terry is lying in bed, a fair historian, appears chronically but not acutely ill, denies concerns or pain today. He tells me he had a successful BM today and otherwise is fairing well. VSS except BPs remain soft. Staff is without concerns. Shikha Gan, [place] [address] [place], [address], [facility] [place] [facility] 03/08/2024 09:09:05 03/07/2024 text/html I am asked to se e the patient immediately upon arrival to the facility today due to AMS/hallucinations/hy potension. Nursing reports the patient has been this way since around 10 am today - lying in bed, staring at the ceiling, confused, talking non-stop and nonsensically. He has not eaten anything, not gotten up for therapy and continues to state that he is going to because people are trying to kill him. He is sitting up in his bed this afternoon, appears very frail with audible rhonchi / chest congestion with conversation and breathing. He is on supplemental O2 at 3 liters. Blood pressure is very low - 82/55. He is oriented to person only, thinks he is at [facility] and unable to tell me the correct Month or year. 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 He says he hurts all over, denies SOB or chest pain. He is mumbling continuously, telling me that there are people in his room who are trying to hurt him. Stat labs were ordered and drawn earlier today - remain pending [place] [address] [facility], [place], [address], [place] [facility] 03/08/2024 03:16:12
--- OUTSIDE RECORDS SUMMARY | 2024-07-05 01:27 | XMS_ITS | Encounter Summary ---
Author Organization [facility] Address [address] [place] [address] Care Team Providers Care Gear Machinist Name Role Phone Elodia Shoemaker APRN-HOME LENDING OFFICER Primary Care Provider + Encounter Details Date Type Department Care Team (Late st Contact Info) Description 06/08/2022 Lab Requisition [facility] [address] [place] [address] Laron Prescott MD [address] [place] [address] Social History Tobacco Use Types Packs/Day Years Used Date Smoking Tobacco: Every Day Cigarettes Smokeless Tobacco: Never Alcohol Use Standard Drinks/Week Comments Not Currently 0 (1 standard drink = 0.6 oz pur e alcohol) Sex and Gender Information Value Date Recorded Sex Assigned at Not on file Gender Identity Not on file Sexual Orientation Not on file documented as of this encounter Plan of Treatment Not on file documented as of this encounter Procedures Procedure Name Priority Date/Time Associated Diagnosis Comments DERMATOPATHOLOGY Routine 06/07/2022 3:33 AM COSTUME MAKER documented in this encounter Results * DERMATOPATHOLOGY (06/07/2022 3:33 AM COSTUME MAKER) Case Report Dermatopathology Report Case: [id number] Authorizing Provider: Laron Prescott MD Collected: 06/07/2022 03:33 AM Ordering Location: [facility] Received: 06/08/2022 01:18 PM Pathologist: Tasia Malone MD Specimen: Skin, left helix 4:36 PM [facility] Final Diagnosis Specimen A. 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 The specimen consists of a shave biopsy measuring 7x5x3, 3x3x2 mm. Jar 0. 4:36 PM [facility] Microscopic Description Specimen A. SKIN, left helix: The epidermis shows parakeratosis, full thickness disorderly maturation of keratinocytes, mitoses at different levels, and dyskeratotic cells. There is a column of marked compact hyperkeratosis. Additional deeper sections were obtained and reviewed. 4:36 PM [facility] Disclaimer An external and internal positive and negative controls are appropriate for the histochemical, immunohistochemical and immunofluorescence stain(s) in this case (if any), except where stated explicitly. The performance characteristics of the stain(s) cited in this report were developed and its performance characteristic determined by the Dermatopathology Laboratory at [facility], directed by Dr. Samy Gaspar. These tests need not be, and therefore are not, approved by the [place] Food and Drug Administration. The tests are used for clinical purposes. Billing Codes Specimen Charges Stain Charges 30714 1 4:36 PM [facility] Embedded Images 4:36 PM [facility] Pathology/Cytolo gy TISSUE SPECIMEN FROM SKIN / Unknown 06/07/2022 3:33 AM COSTUME MAKER 06/08/2022 1:18 PM COSTUME MAKER Laron Prescott MD LAB - PATHOLOGY/CYTO LOGY ORDERABLES DERMATOPATHOLOGY LABORATORY [facility] - Department of Dermatology [facility] [address] [place] [address], [address] [phone] documented in this encounter Visit Diagnoses Not on filedocumented in this encounter Care Teams Gear Machinist Relationship Specialty Start Date End Date Elodia Shoemaker APRN-COY [address] [address] PCP - General 03/16/22 documented as of this encounter
--- OUTSIDE RECORDS SUMMARY | 2024-07-05 01:27 | XMS_ITS | Clinical Summary ---
Author Organization [facility] Address [facility] [place] [address] Care Team Providers Care Mail Truck Driver Name Role Phone Elodia Shoemaker NP Primary Care Provider [phone] Allergies Active Allergy Reactions Criticality Noted Date Comments Atorvastatin Myalgias 11/01/2019 Methocarbamol Diarrhea 11/01/2019 Terbinafine Diarrhea 11/01/2019 Medications amLODIPine 2.5 MG tablet Take 2.5 mg by mouth daily. Active diclofenac epolamine 1.3 % Patch Place 1 patch onto the skin 2 (two) times daily. Active acetaminophen 325 MG tablet Take 650 mg by mouth daily. Active ipratropium-albu terol 20-100 MCG/ACT inhaler Inhale 2 puffs into the lungs 2 (two) times a day. Please provide assembled. Active ALPRAZolam 1 MG tablet Take 1 mg by mouth every 6 (six) hours as needed for Sleep. Active aspirin EC (ASPIRIN EC) 81 MG tablet Take 81 mg by mouth daily. Active baclofen 10 MG tablet Take 5 mg by mouth 3 (three) times daily. Active carvedilol 3.125 MG tablet Take 3.125 mg by mouth 2 (two) times daily. Active vitamin D3, cholecalciferol, (VITAMIN D-3) 10 MCG (400 UNIT) tablet Take 400 Units by mouth 2 (two) times a day. Active vitamin B-12 (CYANOCOBALAMIN) 1000 mcg tablet Take 2,000 mcg by mouth daily. Active diclofenac sodium 1 % gel Apply topically 4 (four) times daily. Active escitalopram 20 MG tablet Take 20 mg by mouth daily. Active esomeprazole 40 MG capsule Take 40 mg by mouth every morning before breakfast. Active HYDROcodone-acet aminophen 10-325 MG tablet Take 1 tablet by mouth every 6 (six) hours as needed for Pain. Active isosorbide mononitrate ER 60 MG 24 hr tablet Take 60 mg by mouth daily. Active levothyroxine 125 MCG tablet Take 125 mcg by mouth every morning. Active lisinopril 5 MG tablet Take 5 mg by mouth daily. Active multi vitamin/minerals tablet Take 1 tablet by mouth daily. Active nitroglycerin 0.4 MG/SPRAY spray Place 1 spray under the tongue every 5 (five) minutes as needed for Chest Pain. Active ranolazine ER (RANEXA) 500 MG 12 hr tablet Take 500 mg by mouth 2 (two) times daily. Active simvastatin 20 MG tablet Take 20 mg by mouth nightly at bedtime. Active traMADol 50 MG tablet Take 50 mg by mouth every 6 (six) hours as needed for Pain. Active Social History Tobacco Use Types Packs/Day Years Used Date Smoking Tobacco: Every Day Cigarettes Smokeless Tobacco: Never Alcohol Use Standard Drinks/Week Comments Not Currently 0 (1 standard drink = 0.6 oz pur e alcohol) AUDIT-C Answer Date Recorded Frequency of Alcohol Consumption Never 11/08/2019 Average Number of Drinks Not on file 020 Frequency of Binge Drinking Not on file 01/2020 Sex and Gender Information Value Date Recorded Sex Assigned at Not on file Legal Sex Male 6:49 PM CDT Gender Identity Not on file Sexual Orientation Not on file Last Filed Vital Signs Vital Sign Reading Time Taken Comments Blood Pressure 102/70 11/08/2019 1:25 PM CDT Pulse 62 11/08/2019 1:25 PM CDT Temperature 37.1 C (98.7 F) 11/08/2019 1:08 PM CDT Respiratory Rate 15 11/08/2019 1:25 PM CDT Oxygen Saturation 97% 11/08/2019 1:25 PM CDT Inhaled Oxygen Concentration - - Weight 74.4 kg (164 lb) 11/01/2019 2:18 PM CDT Height 177.8 cm (5' 10 ) 11/01/2019 2:18 PM CDT Body Mass Index 23.53 11/01/2019 2:18 PM CDT Plan of Treatment Health Maintenance Due Date Last Done Comments Colorectal Cancer Screening Colonoscopy (10 Years) 1950 Pneumococcal Vaccine: 65+ Ye ars (1 of 2 - PCV) 1958 Hepatitis C 1970 DTaP, Tdap and Td Vaccines ( 1 - Tdap) 11/13/1971 Annual Medicare Wellness Visit 2017 Zoster Vaccines (2 of 2) 07/12/2019 05/17/2019 COVID-19 Vaccine (1 - 2023-2 5 season) 2024 Influenza Adult (#1) 2024 05/17/2019 RSV Immunization or 60+ Years (1 - 1-dose 75+ series) 11/13/2027 Meningococcal B Vaccine Aged Out No l onger eligible based on patient's age to complete this topic Meningococcal Vaccine Aged Out No debbie saman eligible based on patient's age to complete this topic RSV Immunizations Under 20 Months Aged Out No longer eligible based on patient's age to complete this topic Insurance MEDICARE [facility] Care Teams Mail Truck Driver Relationship Specialty Start Date End Date Elodia Shoemaker NP [address] [place] [address] PCP - General NURSE PRACTITIONER 11/08/19
--- OUTSIDE RECORDS SUMMARY | 2024-07-05 01:27 | XMS_ITS | Referral Summary ---
Author Organization [facility] Address [address] [place] [address] Care Team Providers Care Universal Grinder Set Up Operator Name Role Phone Elodia Shoemaker TYESHA-FLORAL ARTIST Primary Care Provider + Source Comments [facility],non-owned Affiliates and Associated Physician Practices is amultiple site organization consisting of ambulatory clinics and hospital sitesin [place], [place], [place] and [place]. This disclosure is being madepursuant to the Care Everywhere program and may not contain all information available regarding this patient. Last updated 18.[facility] [employer] Allergies Active Allergy Reactions Criticality Noted Date Comments Atorvastatin Myalgias,Nausea and/ or Vomiting,Unknown Medium 05/11/2017 Methocarbamol Diarrhea Low 11/08/2013 Terbinafine Diarrhea,Other Low 10/24/2014 Medications * Be aware that medications may not be up to date on this document. Alwaysverify current medications with the patient. Medication Sig Dispensed Refills Start Date End Date Status acetaminophen CR (TYLENOL ARTHRITIS PAIN) 650 MG tablet Take 1 tablet by mouth once daily Active ALPRAZolam (XANAX) 1 MG tablet Take 1 tablet by mouth 3 times daily as needed 10/04/2017 Active amLODIPine (NORVASC) 2.5 MG tablet Take 2.5 mg by mouth once daily 05/25/2019 Active aspirin EC (ECOTRIN) 81 MG tablet Take 81 mg by mouth once daily 05/08/2010 Active atorvastatin (LIPITOR) 10 MG tablet Take 5 mg by mouth 3 times daily Active carvedilol (COREG) 3.125 MG tablet Take 1 tablet by mouth 2 times daily 12/09/2017 Active diclofenac (FLECTOR) 1.3 % patch Apply 1 patch to skin 2 times daily Active diclofenac sodium (VOLTAREN) 1 % gel Apply to affected area 4 times daily Active escitalopram (LEXAPRO) 20 MG tablet Take 20 mg by mouth once daily 11/10/2019 Active esomeprazole (NEXIUM) 40 MG capsule Take 40 mg by mouth once daily 11/08/2019 Active HYDROcodone-acetaminop hen (NORCO) 10-325 MG tablet Take 1 tablet by mouth every 6 hours as needed 09/16/2017 Active albuterol-ipratropium (COMBIVENT RESPIMAT) 20-100 MCG/ACT inhaler Inhale 2 puffs by mouth 2 times daily Active isosorbide mononitrate CR 24hr (IMDUR) 60 MG tablet Take 60 mg by mouth once daily 12/09/2017 Active levothyroxine (SYNTHROID) 125 MCG tablet Take 125 mcg by mouth once daily 11/21/2018 Active lisinopril (PRINIVIL;ZESTRIL) 5 MG tablet Take 5 mg by mouth once daily 11/07/2014 Active Multiple Vitamin (MULTI-VITAMIN) TABS Take 1 tablet by mouth once daily Active nitroGLYCERIN (NITROLINGUAL) 0.4 MG/SPRAY spray Dissolve 1 spray under the tongue as needed 05/28/2019 Active ranolazine ER 12hr (RANEXA) 500 MG tablet Take 500 mg by mouth 2 times daily 09/20/2019 Active simvastatin (ZOCOR) 20 MG tablet Take 1 tablet by mouth at bedtime 11/10/2019 Active traMADol (ULTRAM) 50 MG tablet Take 50 mg by mouth every 6 hours as needed 09/28/2019 Active cyanocobalamin (VITAMIN B-12) 1000 MCG tablet Take 1,000 mcg by mouth once daily Active Ergocalciferol (VITAMIN D2) 10 MCG (400 UNIT) Take 400 Units by mouth once daily Active TRELEGY ELLIPTA 100-62.5-25 MCG/INH Inhale 1 puff by mouth once daily 12/24/2019 Active linaCLOtide (LINZESS) 290 MCG capsule Take 1 capsule by mouth once daily Active ibuprofen (MOTRIN) 800 MG tablet Take 800 mg by mouth every 6 hours as needed Active Active Problems Problem Noted Date Diagnosed Date Trigeminal neuralgia 11/16/2019 Occipital neuralgia of left side 11/16/2019 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 Social History Tobacco Use Types Packs/Day Years Used Date Smoking Tobacco: Every Day Cigarettes Smokeless Tobacco: Never Tobacco Cessation:Counseling Given: No Alcohol Use Standard Drinks/Week Comments Not Currently 0 (1 standard drink = 0.6 oz pur e alcohol) Sex and Gender Information Value Date Recorded Sex Assigned at Not on file Gender Identity Not on file Sexual Orientation Not on file Last Filed Vital Signs Vital Sign Reading Time Taken Comments Blood Pressure 115/70 09/16/2020 2:19 PM CDT Pulse 83 09/16/2020 2:19 PM CDT Temperature 36.9 C (98.5 F) 09/16/2020 2:19 PM CDT Respiratory Rate 18 09/16/2020 2:19 PM CDT Oxygen Saturation 98% 09/16/2020 2:19 PM CDT Inhaled Oxygen Concentration - - Weight 68 kg (150 lb) 09/16/2020 2:19 PM CDT Height 177.8 cm (5' 10 ) 09/16/2020 2:19 PM CDT Body Mass Index 21.52 09/16/2020 2:19 PM CDT Plan of Treatment Not on file Care Teams Universal Grinder Set Up Operator Relationship Specialty Start Date End Date Elodia Shoemaker APRN-COY [address] [address] PCP - General 03/16/22
--- OUTSIDE RECORDS SUMMARY | 2024-07-05 01:27 | XMS_ITS | Clinical Summary ---
Author Organization [facility] Address [address] [place] [address] Phone Care Team Providers Care Set And Exhibit Designer Name Role Phone Elodia Shoemaker Primary Care Provider [phone] Allergies Active Allergy Reactions Criticality Noted Date Comments Atorvastatin Unknown 05/11/2017 Methocarbamol Unknown 05/11/2017 Terbinafine Unknown 05/11/2017 Medications budesonide-formo terol (SYMBICORT) 160-4.5 mcg/actuation HFA Aerosol Inhaler Take 2 Puffs by inhalation 2 times daily. Active HYDROcodone-acet aminophen (VICODIN HP) 10-300 mg Tablet Take 1 Tablet by mouth every 6 hours as needed for Pain, Moderate. Active ALPRAZolam (XANAX) 1 mg tablet Take 1 mg by mouth 3 times daily as needed for Anxiety. Active albuterol (PROVENTIL,IONA KASHMIR) 2.5 mg /3 mL (0.083 %) Solution for Nebulization Take 2.5 mg by inhalation every 6 hours as needed for Shortness of Breath. Active aspirin (ECOTRIN EC) 81 mg Tablet, Delayed Release (E.C.) Take 162 mg by mouth daily. Active esomeprazole (NexIUM) 40 mg Capsule, Delayed Release(E.C.) Take 40 mg by mouth daily before breakfast. Active escitalopram oxalate (LEXAPRO) 20 mg tablet Take 20 mg by mouth daily. Active multivitamin (DAILY-ANAND) tablet Take 1 Tablet by mouth daily. Active NITROGLYCERIN ORAL Take by mouth. Activ e ranolazine ER (RANEXA) 500 mg Extended Release 12 hour tablet Take 500 mg by mouth every 12 hours. Active simvastatin (ZOCOR) 20 mg tablet Take 20 mg by mouth late in the day. Active tiotropium (SPIRIVA) 18 mcg capsule Take 18 mcg by inhalation daily. Active baclofen (LIORESAL) 10 mg tablet Take 10 mg by mouth 3 times daily. Active lisinopril (PRINIVIL) 5 mg tablet Take 5 mg by mouth daily. Active cyanocobalamin (VITAMIN B-12) 1,000 mcg Tablet Take 1,000 mcg by mouth daily. Active traMADol (ULTRAM) 50 mg tablet Take 100 mg by mouth every 4 hours as needed for Pain. Active diclofenac sodium (PENNSAID) 20 mg/gram /actuation(2 %) solution in metered-dose pump Apply to affected area. Active Miscellaneous Medical Supply Apply bid to affected area allow 10 min to absorb Diclofenac 5%, lidocaine 5%, gabapentin 6%. 240 Each 1 11/30/19 18 Active carvedilol (COREG) 3.125 mg tablet Take 3.125 mg by mouth 2 times daily. 12/10/19 18 Active isosorbide mononitrate (IMDUR) 60 mg Extended Release 24 hour tablet Take 60 mg by mouth daily. 12/10/19 18 Active levothyroxine 125 mcg tablet Take 125 mcg by mouth daily giver. Active SUMAtriptan (IMITREX) 100 mg tablet Take 1 Tablet (100 mg) by mouth see administration instructions Take at onset of your headache. Do not take it more than twice a week.. 9 Tablet 5 04/26/20 18 Active Active Problems Problem Noted Date Diagnosed Date Empty sella 11/29/2017 Acquired hypothyroidism 11/29/2017 History of radiation exposure 11/29/2017 Family History Relation Name Status Comments Father (Age 40) gun accide nt Mother (Age 40) car accide nt Social History Tobacco Use Types Packs/Day Years Used Date Smoking Tobacco: Every Day Tobacco Cessation:Ready to Q uit: Yes; Counseling Given: Yes Alcohol Use Standard Drinks/Week Comments Yes 0 (1 standard drink = 0.6 oz pur e alcohol) Sex and Gender Information Value Date Recorded Sex Assigned at Not on file Legal Sex 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 Gender Identity Not on file Sexual Orientation Not on file Last Filed Vital Signs Vital Sign Reading Time Taken Comments Blood Pressure 130/70 01/08/2019 1:00 PM CDT Pulse 85 01/08/2019 1:00 PM CDT Temperature - - Respiratory Rate - - Oxygen Saturation 94% 05/11/2017 11:23 AM GAS MASK INSPECTOR Inhaled Oxygen Concentration - - Weight 71.8 kg (158 lb 3.2 oz) 01/08/2019 1:00 P M CDT Height 177.8 cm (5' 10 ) 01/08/2019 1:00 PM CDT Body Mass Index 22.7 01/08/2019 1:00 PM CDT Plan of Treatment Health Maintenance Due Date Last Done Comments DTAP/TDAP/TD VACCINES (1 - Tdap) 11/13/1971 PNEUMOCOCCAL VACCINE 50+ YEA RS (1 of 2 - PCV) 11/13/1971 01/29/2005 FIT-DNA Q 3 years 1997 FIT/FOBT Q 1 year 1997 Flex Sig/CT Colonography Q 5 years 1997 ZOSTER VACCINE (1 of 2) 2002 RSV VACCINE (60+ or ) (1 - Risk 60-74 years 1-dose series) 2012 INFLUENZA VACCINE (#1) 2023 6, 02/07/2015, 02/25/2014, Additional history exists COLORECTAL SCREENING 12/14/2025 12/15/2015, 12/15/19 16 Colorectal Cancer Screening 12/14/2025 Insurance MEDICARE PART A AND B [place] [facility] RX [employer] RX Member Subscriber Plan / Payer (Ef fective for All Dates) Name:Cecilio Bergeron Relation to Subscriber:Self Name:Cecilio Bergeron Payer ID:Not on file Group ID:[id number] Type:RX Medicare Part D Address: [place], [place] RX [employer] Express MEDICARE PART A AND B [facility] [address] Care Teams Set And Exhibit Designer Relationship Specialty Start Date End Date Elodia Shoemaker ANP [address] [address] PCP - General NURSE PRACTITIONER 01/28/17
--- OUTSIDE RECORDS SUMMARY | 2024-07-05 01:27 | XMS_ITS | Clinical Summary ---
Author Organization [facility] Care Team Providers Care Assistant Coach Name Role Phone Unavailable Primary Care Provider Unavailabl e Social History Tobacco Use Types Packs/Day Years Used Date Smoking Tobacco: Never Assessed Sex and Gender Information Value Date Recorded Sex Assigned at Not on file Legal Sex Male 9:51 PM CDT Gender Identity Not on file Sexual Orientation Not on file Plan of Treatment Health Maintenance Due Date Last Done Comments Hepatitis C Virus (HCV) Screening 1950 TdaP Immunization 1950 Colonoscopy 1997 Colorectal Cancer Screening 1997 Cologuard 2002 Immunochemical Fecal Occult Blood 2002 Pneumococcal Immunization (5 0+ years) (1 of 1 - PCV) 2002 Zoster Immunization (1 of 2) 2002 Influenza Immunization (#1) 2024 SARS-COV-2 Immunization (2023- season) 2024 Respiratory Syncytial Virus (RSV) Immunization (Adult) (1 - 1-dose 75+ series) 11/13/2027 Hepatitis B Immunization Aged Out No longer eligible based on patient's age to complete this topic Meningococcal Immunization (ACWY) Aged Out No longer eligible based on patient's age to complete this topic Rotavirus Immunization Aged Out No lo nger eligible based on patient's age to complete this topic
--- OUTSIDE RECORDS SUMMARY | 2024-07-05 01:27 | XMS_ITS | Encounter Summary ---
Author Organization [facility] Address [address] [place] [address] Care Team Providers Care Production Maintenance Mechanic Name Role Phone Kathya Huerta MD Primary Care Provider [phone] Elodia Shoemaker NP Primary Care Provider Encounter Details Date Type Department Care Team (Late st Contact Info) Description 11/05/2019 Prep for Procedure [facility] [place], [place] [id number] Ravinder Swan MD [address] [id number] Social History Tobacco Use Types Packs/Day Years Used Date Smoking Tobacco: Former Smokeless Tobacco: Never AUDIT-C Answer Date Recorded Frequency of Alcohol Consumption Never 11/08/2019 Average Number of Drinks Not on file 020 Frequency of Binge Drinking Not on file 01/2020 Sex and Gender Information Value Date Recorded Sex Assigned at Not on file Legal Sex Male 6:49 PM CDT Gender Identity Not on file Sexual Orientation Not on file COVID-19 Exposure Response Date Recorded In the last month, have you been in contact with someone who was confirmed or suspected to have Coronavirus / COVID-19? No / Unsure 11/08/2019 9:20 AM CDT documented as of this encounter Plan of Treatment Not on file documented as of this encounter Results * PRE-SURGICAL/PRE-PROCEDURE CORONAVIRUS (COVID 19) (11/05/2019 1:50 PM CDT) Pathologist [facility] CORONAVIRUS SARS COV 2 PCR (RESP) NOT DETECTED NOT DETECTED 11/06/2019 8:43 PM CDT [facility] Comment: A Not Detected (negative) test result for this test means that SARS- CoV-2 RNA was not present in the specimen above the limit of detection. A negative result does not rule out the possibility of COVID-19 and should not be used as the sole basis for treatment or patient management decisions. If COVID-19 is still suspected, based on exposure history together with other clinical findings, re-testing should be considered in consultation with public health authorities. Laboratory test results should always be considered in the context of clinical observations and epidemiological data in making a final diagnosis and patient management decisions. Please review the Fact Sheets and FDA authorized labeling available for health care providers and patients using the following websites: https://www.[employer]/home/Covid-19/HCP/NAAT/fact-sheet2 https://www.[employer]/home/Covid-19/Patients/NAAT/ fact-sheet2 This test has been authorized by the FDA under an Emergency Use Authorization (EUA) for use by authorized laboratories. Due to the current public health emergency, [employer] is receiving a high volume of samples from a wide variety of swabs and media for COVID-19 testing. In order to serve patients during this public health crisis, samples from appropriate clinical sources are being tested. Negative test results derived from specimens received in non-commercially manufactured viral collection and transport media, or in media and sample collection kits not yet authorized by FDA for COVID-19 testing should be cautiously evaluated and the patient potentially subjected to extra precautions such as additional clinical monitoring, including collection of an additional specimen. Methodology: Nucleic Acid Amplification Test (NAAT) includes PCR or TMA Additional information about COVID-19 can be found at the [employer] website: www.[employer]ob/Covid19. Test performed at [facility] [address] [place] [address] Director: YESI FELICIANO DO,MPH NASOPHARYNGEAL SWAB / Unknown 11/05/2019 1:50 PM CDT Ravinder Swan MD MICROBIOLOGY - GENERAL ARTEMIO LONG Final Result [facility] [address] [place] [address], documented in this encounter Visit Diagnoses Diagnosis Dysphagia- Primary Dysphagia, unspecified documented in this encounter Additional Health Concerns Infection Onset Date Last Indicated Resolved Time COVID-19 Rule Out 11/05/2019 11/05/2019 11/06/2019 8:43 PM CDT documented as of this encounter Care Teams Production Maintenance Mechanic Relationship Specialty Start Date End Date Kathya Huerta MD [address], [place] [address] PCP - General 09/28/13 11/07/19 Elodia Shoemaker NP [address] [place] [address] PCP - General NURSE PRACTITIONER 11/08/19 documented as of this encounter
--- OUTSIDE RECORDS SUMMARY | 2024-07-05 01:27 | XMS_ITS | Patient Health Summary ---
Author Organization [facility] Address [address] [place] [address] Care Team Providers Care Gerontology Aide Name Role Phone Elodia Shoemaker TYESHA-WARP TESTER Primary Care Provider + Note from [facility],non-owned Affiliates and Associated Physician Practices is amultiple site organization consisting of ambulatory clinics and hospital sitesin [place], [place], [place] and [place]. This disclosure is being madepursuant to the Care Everywhere program and may not contain all information available regarding this patient. Last updated 18.[facility] Allergies * Atorvastatin(Myalgias,Nausea and/or Vomiting,Unknown) -Medium Criticality * Methocarbamol(Diarrhea) -Low Criticality * Terbinafine(Diarrhea,Other) -Low Criticality Medications * Be aware that medications may not be up to date on this document. Alwaysverify current medications with the patient. * acetaminophen CR (TYLENOL ARTHRITIS PAIN) 650 MG tablet Take 1 tablet by mouth once daily * ALPRAZolam (XANAX) 1 MG tablet(Started 10/04/2017) Take 1 tablet by mouth 3 times daily as needed * amLODIPine (NORVASC) 2.5 MG tablet(Started 05/25/2019) Take 2.5 mg by mouth once daily * aspirin EC (ECOTRIN) 81 MG tablet(Started 05/08/2010) Take 81 mg by mouth once daily * atorvastatin (LIPITOR) 10 MG tablet Take 5 mg by mouth 3 times daily * carvedilol (COREG) 3.125 MG tablet(Started 12/09/2017) Take 1 tablet by mouth 2 times daily * diclofenac (FLECTOR) 1.3 % patch Apply 1 patch to skin 2 times daily * diclofenac sodium (VOLTAREN) 1 % gel Apply to affected area 4 times daily * escitalopram (LEXAPRO) 20 MG tablet(Started 11/10/2019) Take 20 mg by mouth once daily * esomeprazole (NEXIUM) 40 MG capsule(Started 11/08/2019) Take 40 mg by mouth once daily * HYDROcodone-acetaminophen (NORCO) 10-325 MG tablet(Started 09/16/2017) Take 1 tablet by mouth every 6 hours as needed * albuterol-ipratropium (COMBIVENT RESPIMAT) 20-100 MCG/ACT inhaler Inhale 2 puffs by mouth 2 times daily * isosorbide mononitrate CR 24hr (IMDUR) 60 MG tablet(Started 12/09/2017) Take 60 mg by mouth once daily * levothyroxine (SYNTHROID) 125 MCG tablet(Started 11/21/2018) Take 125 mcg by mouth once daily * lisinopril (PRINIVIL;ZESTRIL) 5 MG tablet(Started 11/07/2014) Take 5 mg by mouth once daily * Multiple Vitamin (MULTI-VITAMIN) TABS Take 1 tablet by mouth once daily * nitroGLYCERIN (NITROLINGUAL) 0.4 MG/SPRAY spray(Started 05/28/2019) Dissolve 1 spray under the tongue as needed * ranolazine ER 12hr (RANEXA) 500 MG tablet(Started 09/20/2019) Take 500 mg by mouth 2 times daily * simvastatin (ZOCOR) 20 MG tablet(Started 11/10/2019) Take 1 tablet by mouth at bedtime * traMADol (ULTRAM) 50 MG tablet(Started 09/28/2019) Take 50 mg by mouth every 6 hours as needed * cyanocobalamin (VITAMIN B-12) 1000 MCG tablet Take 1,000 mcg by mouth once daily * Ergocalciferol (VITAMIN D2) 10 MCG (400 UNIT) Take 400 Units by mouth once daily * TRELEGY ELLIPTA 100-62.5-25 MCG/INH(Started 12/24/2019) Inhale 1 puff by mouth once daily * linaCLOtide (LINZESS) 290 MCG capsule Take 1 capsule by mouth once daily * ibuprofen (MOTRIN) 800 MG tablet Take 800 mg by mouth every 6 hours as needed Active Problems Problem Noted Date Diagnosed Date [...] Mass Index 21.52 09/16/2020 2:19 PM CDT Procedures * DERMATOPATHOLOGY(Performed 06/07/2022) * DERMATOPATHOLOGY(Performed 03/15/2022) * PAIN MANAGEMENT PROCEDURE TIME(Performed 09/16/2020) Performed for Occipital neuralgia of left side * AMARI STAINING PATTERNS REFLEXED(Performed 02/29/2020) Performed for Blurring of visual image of left eye, Trigeminal neuralgia, Occipital neuralgia of left side * C-REACTIVE PROTEIN(Performed 02/29/2020) Performed for Blurring of visual image of left eye, Trigeminal neuralgia, Occipital neuralgia of left side * DARIN BLOOD SCREEN W/REFLEX TITER(Performed 02/29/2020) Performed for Blurring of visual image of left eye, Trigeminal neuralgia, Occipital neuralgia of left side * ERYTHROCYTE SEDIMENTATION RATE(Performed 02/29/2020) Performed for Blurring of visual image of left eye, Trigeminal neuralgia, Occipital neuralgia of left side * RAD OUTSIDE IMG IMPORT(Performed 01/17/2020) Performed for Pain * MRI IAC AND BRAIN WWO CONT(Performed 12/10/2019) Performed for Trigeminal neuralgia, Acoustic neuroma (HCC) * CREATININE BLOOD - POINT OF CARE (IP)(Performed 12/10/2019) Performed for Acoustic neuroma (HCC) * DERMATOPATHOLOGY(Performed 04/13/2017) Results * DERMATOPATHOLOGY (06/07/2022 3:33 AM PRESALES CONSULTANT) Only the most recent of3 resultswithin the time period is included. Case Report Dermatopathology Report Case: [id number] Authorizing Provider: Laron Prescott MD Collected: 06/07/2022 03:33 AM Ordering Location: [facility] DermPath Lab Received: 06/08/2022 01:18 PM Pathologist: Tasia Malone MD Specimen: Skin, left helix 4:36 PM [facility] DERMATOPATHOLOGY LABORATORY Final Diagnosis Specimen A. SKIN, left helix: SQUAMOUS CELL CARCINOMA IN SITU (HOGAN'S DISEASE) (D04.22) OVERLYING CUTANEOUS HORN (L85.8) (see microscopic description) 4:36 PM [facility] DERMATOPATHOLOGY LABORATORY Clinical History R/O SCC 4:36 PM [facility] DERMATOPATHOLOGY LABORATORY Gross Description Specimen A: Received is one formalin filled container labeled with the patient's name and designated left helix. The specimen consists of a shave biopsy measuring 7x5x3, 3x3x2 mm. Jar 0. 4:36 PM [facility] DERMATOPATHOLOGY LABORATORY Microscopic Description Specimen A. SKIN, left helix: The epidermis shows parakeratosis, full thickness disorderly maturation of keratinocytes, mitoses at different levels, and dyskeratotic cells. There is a column of marked compact hyperkeratosis. Additional deeper sections were obtained and reviewed. 4:36 PM [facility] DERMATOPATHOLOGY LABORATORY Disclaimer An external and internal positive and negative controls are appropriate for the histochemical, immunohistochemical and immunofluorescence stain(s) in this case (if any), except where stated explicitly. The performance characteristics of the stain(s) cited in this report were developed and its performance characteristic determined by the Dermatopathology Laboratory at [facility], directed by Dr. Samy Gaspar. These tests need not be, and therefore are not, approved by the [place] Food and Drug Administration. The tests are used for clinical purposes. Billing Codes Specimen Charges Stain Charges 93946 1 3 4:36 PM [facility] DERMATOPATHOLOGY LABORATORY Embedded Images 3 4:36 PM [facility] DERMATOPATHOLOGY LABORATORY Pathology/Cytolo gy TISSUE SPECIMEN FROM SKIN / Unknown 06/07/2022 3:33 AM PRESALES CONSULTANT 06/08/2022 1:18 PM PRESALES CONSULTANT Laron Prescott MD LAB - PATHOLOGY/CYTO LOGY ORDERABLES DERMATOPATHOLOGY LABORATORY [facility] - Department of Dermatology [address], [address] [phone] * PAIN MANAGEMENT PROCEDURE TIME (09/16/2020 2:39 PM CDT) Anatomical Region Laterality Modality X-Ray Angiograph y Narrative 09/16/2020 2:43 PM CDT García Valle MD 09/16/2020 2:43 PM Left sided greater and lesser occipital nerve blocks under fluoroscopy: Written and informed consent was obtained including a discussion of the risks and benefits of the procedure. Specific risks including bleeding, infection and neurologic injury. The patient was placed in the prone position. The occipital area was prepped with Betadine x3 and draped in the usual sterile fashion. Subsequently the occipital pulse was palpated on the left side. Following, after 1 cc of preservative-free 1% lidocaine by 27-gauge needle, a 27-gauge needle was utilized to infiltrate 5 cc of preservative-free 0.25% bupivacaine and 5 mg of Dexamethasone in a fanlike fashion medial to the pulsed block the greater occipital nerve on the left. The needle was then redirected lateral to the pulse on the left and another 5 cc of 0.25% bupivacaine and 5 mg Dexamethasone was injected and a fanlike fashion to block the lesser occipital nerve on the left. Prior to injection there was negative aspiration of blood or CSF on both occasions and Fluoroscopy was utilized to show the needle was in a posterior position. The needle was removed intact and hemostasis was appreciated. The patient tolerated the procedure well and was transferred home in stable condition. Estimated blood loss during procedure 0 ml. García Valle MD DIAGNOSTIC IMAGIN G ORDERABLES * (ABNORMAL) AMARI STAINING PATTERNS REFLEXED (02/29/2020 1:45 PM CDT) Homogeneous Pattern 1:160(H) [facility] INSURANCE BILL Nucleolar Pattern NOT NEEDED [facility] INSURANCE BILL Comment:Ancillary determined the test is not needed. Speckled Pattern NOT NEEDED [facility] INSURANCE BILL Comment:Ancillary determined the test is not needed. Centromere Pattern NOT NEEDED [facility] INSURANCE BILL Comment:Ancillary determined the test is not needed. Spindle Apparatus Pattern NOT NEEDED [facility] INSURANCE BILL Comment:Ancillary determined the test is not needed. Nuclear Membrane Pattern NOT NEEDED [facility] INSURANCE BILL Comment:Ancillary determined the test is not needed. Midbody Pattern NOT NEEDED [facility] INSURANCE BILL Comment:Ancillary determined the test is not needed. Nuclear Dot Pattern NOT NEEDED [facility] INSURANCE BILL Comment:Ancillary determined the test is not needed. PCNA Pattern NOT NEEDED [facility] INSURANCE BILL Comment:Ancillary determined the test is not needed. Centriole Pattern NOT NEEDED [facility] INSURANCE BILL Comment:Ancillary determined the test is not needed. Note [facility] INSURANCE BILL Comment: A positive DARIN result may occur in healthy individuals (low titer) or be associated with a variety of diseases. See interpretation chart which is not all inclusive: . Pattern Antigen Detected Suggested Disease Association Homogeneous DNA(ds,ss), SLE - High titers Nucleosomes, Histones Drug-induced SLE Speckled Sm, MEDIA CLERK, SCL-70, SLE,MCTD,PSS (diffuse form), SS-A/SS-B Sjogrens Nucleolar SCL-70, PM-1/SCL High titers Scleroderma, PM/DM Centromere Centromere PSS (limited form) w/Crest syndrome variable Nuclear Dot Sp100,[id number] Primary Biliary Cirrhosis Nuclear GP210, Primary Biliary Cirrhosis Membrane erlin A,B,C 02/29/2020 1:45 PM CDT 02/29/2020 Narrative Resulting Agency Comment Lab Testing performed at: [facility] [address] [facility] [id number] Tim Wilson MD LAB - PATHOLOGY/CYTO LOGY ORDERABLES [facility] INSURANCE BILL [address] [place] [address] * C-REACTIVE PROTEIN (02/29/2020 1:45 PM CDT) C-Reactive Protein 2 0 - 10 mg/L [facility] INSURANCE BILL Blood BLOOD SPECIMEN / Unknown 02/29/2020 1:45 PM CDT 02/29/2020 Narrative Resulting Agency Comment Lab Testing performed at: [email or web address] [place] [address] [facility] [id number] Tim Wilson MD LAB - CHEMISTRY ARTEMIO LONG Performing Organization Address [facility] Co de Phone Number [employer] INSURANCE BILL [address] [place] [address] * (ABNORMAL) DARIN BLOOD SCREEN W/REFLEX TITER (02/29/2020 1:45 PM CDT) DARIN Positive(A ) [facility] INSURANCE BILL Comment: Negative <1:80 Borderline 1:80 Positive >1:80 Blood BLOOD SPECIMEN / Unknown 02/29/2020 1:45 PM CDT 02/29/2020 Narrative Resulting Agency Comment Lab Testing performed at: [email or web address] [place] [employer] [facility] [id number] Tim Wilson MD LAB - CHEMISTRY ARTEMIO LONG Performing Organization Address [facility] Co de Phone Number [employer] INSURANCE BILL [address] [place] [address] * ERYTHROCYTE SEDIMENTATION RATE (02/29/2020 1:45 PM CDT) Erythrocyte Sedimentation Rate Westergren 3 0 - 30 mm/hr [facility] INSURANCE BILL Blood BLOOD SPECIMEN / Unknown 02/29/2020 1:45 PM CDT 02/29/2020 Narrative Resulting Agency Comment [facility] performed at: [email or web address] [employer] [facility] [id number] Tim Wilson MD LAB - HEMATOLOGY ORD ERABLES Performing Organization Address [facility]/ZIP Co de Phone Number [employer] INSURANCE BILL [address] [place] [address] * RAD OUTSIDE IMG IMPORT (01/17/2020 12:46 PM CDT) Tim Wilson MD DIAGNOSTIC IMAGING O RDERABLES [facility] RADIOLOGY [address] [id number] * MRI IAC AND BRAIN WWO CONT (12/10/2019 3:13 PM CDT) Anatomical Region Laterality Modality Head Magnetic Resonan ce 12/11/2019 10:4 4 AM CDT Impressions 12/11/2019 12:02 PM CDT Age-related changes. Edited by Temitope Jonas on 12/11/2019 11:00 AM *Reading Radiologist: Efrain White on 12/11/2019 at 12:02 PM Narrative 12/11/2019 12:02 PM CDT MRI BRAIN WITH AND WITHOUT CONTRAST, MRI IACs WITH AND WITHOUT CONTRAST. HISTORY: Left acoustic neuroma, history of lung cancer. Images are provided using T1 and T2-weighted sequences. Postcontrast enhanced images after 18 mL of Dotarem are also reviewed. The diffusion-weighted study shows no evidence for an acute infarct. No intracranial mass or hemorrhage is seen. White matter changes are apparent. There is no evidence for acoustic neuroma or other cerebellopontine angle mass. No abnormal enhancement was seen after contrast injection. Procedure Note Efrain White MD - 12/11/2019 MRI BRAIN WITH AND WITHOUT CONTRAST, MRI IACs WITH AND WITHOUT CONTRAST. HISTORY: Left acoustic neuroma, history of lung cancer. Images are provided using T1 and T2-weighted sequences. Postcontrast enhanced images after 18 mL of Dotarem are also reviewed. The diffusion-weighted study shows no evidence for an acute infarct. No intracranial mass or hemorrhage is seen. White matter changes are apparent. There is no evidence for acoustic neuroma or other cerebellopontine angle mass. No abnormal enhancement was seen after contrast injection. IMPRESSION Age-related changes. Edited by Temitope Jonas on 12/11/2019 11:00 AM *Reading Radiologist: Efrain White on 12/11/2019 at 12:02 PM Tim Wilson MD MR ORDERABLES * (ABNORMAL) CREATININE BLOOD - POINT OF CARE (IP) (12/10/2019 2:10 PM CDT) Creatinine POCT 0.45(A) 0.7 - 1.2 mg/dL [facility] POCT TESTING QC Verified Yes Yes [facility] POC T TESTING Blood BLOOD SPECIMEN / Unknown 12/10/2019 2:10 PM CDT Tim Wilson MD LAB - POINT OF CARE ORDERABLES [facility] POCT TESTING [address] [phone] Care Teams Gerontology Aide Relationship Specialty Start Date End Date Elodia Shoemaker APRN-COY [address] [address] PCP - General 03/16/22
--- OUTSIDE RECORDS SUMMARY | 2024-07-05 01:27 | XMS_ITS | Continuity of Care Document ---
Author Name Auto Generated, Auto Generated Organization [facility] Support Name Relationship Address Phone GLENDY Bergeron Emergency Contact 1 Unknown Unavail able [place] GLENDY Brother Unknown Unavailable Rubio Cecilio Financial Responsible [employer] [address] [facility] [place] [address] RubioCecilio Self [address] [facility] [place] [address] Jim Michael Emergency Contact 2 Unknown Unava ilable Michael Fernandez Son-in-Law Unknown Unavailable Summary Purpose Consult/Referral Allergies, Adverse Reactions, Alerts Type Description/Agent Code Date Allergy Active Date Allergy Inactivated Date of Last Reaction Adverse Reactions Severity Status Comments Source of Information FDB Medic ation Ingre dient methocarbamol Active Pat ient History FDB Medic ation Ingre dient terbinafine HCl Active P atient History FDB Medic ation Name Robaxin Active Patient History FDB Medic ation Ingre dient atorvastatin Active Shereen ent History Medications No Known Medications Conditions/Problems Problem/Diagnosis Awareness of Diagnosis Code (ICD-10) Onset Date (Start Date) Resolution Date (End Date) Status Source Comments ALTERED MENTAL STATUS, UNSPECIFIED R41.82 Active DO Edita Boo HYPOTENSION, UNSPECIFIED I95.9 Active DO Edita Boo DYSPHAGIA, PHARYNGEAL PHASE R13.13 Active DO Edita Boo OTHER ESOPHAGITIS WITHOUT BLEEDING K20.80 Active DO Edita Boo PERSONAL HISTORY OF COLON POLYPS, UNSPECIFIED Z86.0100 Active DO Edita Boo ACUTE POSTHEMORRHAGIC ANEMIA D62 Active DO Edita Boo RHABDOMYOLYSIS M62.82 Active DO Edita Boo ACUTE RESPIRATORY FAILURE WITH HYPOXIA J96.01 10/18/2 024 Active DO Edita Boo CHRONIC OBSTRUCTIVE PULMONARY DISEASE, UNSPECIFIED J44.9 Active DO Edita Boo HYPOTHYROIDISM, UNSPECIFIED E03.9 01/31/2023 Resolved DO Edita Boo CLINICAL PHARMACY SPECIALIST (CURRENT) USE OF ASPIRIN Z79.82 Active DO Edita Boo GASTRO-ESOPHAGEAL REFLUX DISEASE WITHOUT ESOPHAGITIS K21.9 Active DO Edita Boo PRESENCE OF ARTIFICIAL KNEE JOINT, BILATERAL Z96.653 Active DO Edita Boo Dates NOS NICOTINE DEPENDENCE, CIGARETTES, UNCOMPLICATED F17.210 Active DO Edita Boo DEPRESSION, UNSPECIFIED F32.A Active DO Edita Boo ANXIETY DISORDER, UNSPECIFIED F41.9 Active DO Edita Boo MIGRAINE, UNSPECIFIED, NOT INTRACTABLE, WITHOUT STATUS MIGRAINOSUS G43.909 Active DO Edita Boo EMPHYSEMA, UNSPECIFIED J43.9 02/17/2024 Resolved DO Edita Boo BASAL CELL CARCINOMA OF SKIN OF LEFT EAR AND EXTERNAL AURICULAR CANAL C44.219 Active DO Edita Boo UNSPECIFIED ROTATOR CUFF TEAR OR RUPTURE OF RIGHT SHOULDER, NOT SPECIFIED TRAUMATIC M75.101 Active DO Edita Boo PNEUMONIA, UNSPECIFIED ORGANISM J18.9 Active DO Edita Boo CHRONIC OBSTRUCTIVE PULMONARY DISEASE WITH (ACUTE) LOWER RESPIRATORY INFECTION J44.0 Active DO Edita Boo CANDIDAL ESOPHAGITIS B37.81 02/24/2024 Resolved DO Edita Boo HYPOKALEMIA E87.6 Active DO Edita Boo PERSONAL HISTORY OF MALIGNANT NEOPLASM OF THYROID Z85.850 Active DO Edita Boo Date NOS 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 Active DO Edita Boo Date NOS 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 Active DO Edita Boo HYPERLIPIDEMIA, UNSPECIFIED E78.5 023 Active DO Edita Boo PRESENCE OF RIGHT ARTIFICIAL SHOULDER JOINT Z96.611 023 01/31/2023 Resolved DO Edita Boo PRESENCE OF OTHER BONE AND TENDON IMPLANTS Z96.7 023 Active DO Edita Boo PERSONAL HISTORY OF (HEALED) TRAUMATIC FRACTURE Z87.81 023 DO Edita Mathur S42.291 OTHER DISPLACED FRACTURE OF UPPER END OF RIGHT HUMERUS, SUBSEQUENT ENCOUNTER FOR FRACTURE WITH NONUNION S42.291K 023 Active DO Edita Boo HYPO-OSMOLALITY AND HYPONATREMIA E87.1 021 DO Edita Mathur ACQUIRED ABSENCE OF LUNG [PART OF] Z90.2 015 DO Edita Mathur Date NOS PERSONAL HISTORY OF OTHER MALIGNANT NEOPLASM OF BRONCHUS AND LUNG Z85.118 015 DO Edita Mathur Date NOS PRESENCE OF AORTOCORONARY BYPASS GRAFT Z95.1 003 DO Edita Mathur Date NOS ALCOHOL ABUSE, IN REMISSION F10.11 985 DO Edita Mathur Procedures No Known Procedures
--- OUTSIDE RECORDS SUMMARY | 2024-07-05 01:27 | XMS_ITS | Clinical Summary ---
Author Organization [facility] [employer] Address [address] [facility] [place] [address] Care Team Providers Care Insect Control Inspector Name Role Phone Elodia Shoemaker TYESHA-RN TRANSPLANT Primary Care Provider + Source Comments [facility],non-owned Affiliates and Associated Physician Practices is amultiple site organization consisting of ambulatory clinics and hospital sitesin [place], [place], [place] and [place]. This disclosure is being madepursuant to the Care Everywhere program and may not contain all information available regarding this patient. Last updated 18.[facility] Allergies Active Allergy Reactions Criticality Noted Date [...] of left side 11/16/2019 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 Family History Medical History Relation Name Comments None Known Father None Known Mother Relation Name Status Comments Father Mother Social History Tobacco Use Types Packs/Day Years [...] 09/16/2020 2:19 PM CDT Plan of Treatment Health Maintenance Due Date Last Done Comments COLOGUARD (AGES 45-75) - COLON CA SCREENING 1952 COLON MONITORING 1952 COLONOSCOPY - COLON CA SCREENING 1952 CT COLONOGRAPHY - COLON CA SCREENING 1952 Colorectal Cancer Screening 1952 FIT - COLON CA SCREENING 1952 FLEX SIG - COLON CA SCREENING 1950 MEDICARE AWV 12 MONTHS 1952 HEPATITIS C SCREENING 11/08/1970 DTAP/TDAP/TD VACCINES (1 - Tdap) 11/13/1971 PNEUMOCOCCAL VACCINE 50+ (1 of 2 - PCV) 11/13/1971 ZOSTER VACCINE (1 of 2) 2002 AAA SCREENING 2017 COVID-19 VACCINE (1 - season) 2024 INFLUENZA VACCINE (#1) 2024 , 05/17/2019, 01/26/2018, Additional history exists DEPRESSION SCREENING 05/02/2024 Respiratory Syncytial Virus (RSV) Vaccine Pt: or over 60 yrs (1 - 1-dose 75+ series) 11/13/2027 HEPATITIS B VACCINE Aged Out No longe r eligible based on patient's age to complete this topic HIB VACCINE Aged Out No longer eligi ble based on patient's age to complete this topic HPV VACCINE Aged Out No longer eligi ble based on patient's age to complete this topic MENINGOCOCCAL (Group B) VACCINE Aged Out No longer eligible based on patient's age to complete this topic MENINGOCOCCAL VACCINE Aged Out No debbie saman eligible based on patient's age to complete this topic Care Teams Insect Control Inspector Relationship Specialty Start Date End Date Elodia Shoemaker APRN-RN TRANSPLANT [address] [employer] [address] PCP - General 03/16/22
--- OUTSIDE RECORDS SUMMARY | 2024-07-05 01:28 | XMS_ITS | Encounter Summary ---
Author Organization [facility] Care Team Providers Care Community Health Agent Name Role Phone Elodia Shoemaker NP Primary Care Provider [phone] No, Physician Primary Care Provider [phone] Dimitris Burrows Primary Care Provider + Encounter Details Date Type Department Care Team (Latest Contact Info) Description 08/26/2016 Orders Only [facility] CLINCONV ProviderSusan MD [address] [place] [id number] Social History Tobacco Use Types Packs/Day Years Used Date Smoking Tobacco: Never Assessed Alcohol Use Standard Drinks/Week Comments No 0 (1 standard drink = 0.6 oz pur e alcohol) Sex and Gender Information Value Date Recorded Sex Assigned at Not on file Legal Sex Male 3:06 AM APPOINTMENT SETTER Gender Identity Not on file Sexual Orientation Not on file documented as of this encounter Plan of Treatment Not on file documented as of this encounter Procedures Procedure Name Priority Date/Time Associated Diagnosis Comments SCAN - PATHOLOGY 09/09/2016 12:0 0 AM CDT documented in this encounter Results * SCAN - PATHOLOGY (09/09/2016 12:00 AM CDT) Narrative 09/09/2016 12:00 AM CDT Ordered by an unspecified provider. Historical Provider Final Res ult documented in this encounter Visit Diagnoses Not on filedocumented in this encounter Care Teams Community Health Agent Relationship Specialty Start Date End Date Elodia Shoemaker NP PCP - General 07/07/16 01/04/23 No, Physician PCP - General 09/08/23 09/18/23 Dimitris Burrows PA [facility] [place] [address] PCP - General Internal Medicine 09/19/23 documented as of this encounter
--- OUTSIDE RECORDS SUMMARY | 2024-07-05 01:28 | XMS_ITS ---
Author Organization [facility] Address [address] [place] [address] Care Team Providers Care Teaching Assistant Name Role Phone Dimitris Burrows Primary Care Provider + Active Problems Problem Noted Date Diagnosed Date Abnormal stress test 10/11/2019 Overview (10/11/2019): Added automatically from request for surgery [id number] Acoustic neuroma 10/27/2018 Bilateral cataracts 10/27/2018 Bone pain 10/27/2018 Carotid artery stenosis 10/27/2018 Cervical disc disorder 10/27/2018 Chronic fatigue syndrome 10/27/2018 Constipation 10/27/2018 Edema 10/27/2018 Generalized atherosclerosis 10/27/2018 Hip pain 10/27/2018 Hoarse 10/27/2018 Hypersomnia 10/27/2018 Injury of tendon of rotator cuff 10/27/2018 Lacunar infarction 10/27/2018 Lytic lesion of bone on x-ray 10/27/2018 Positive antinuclear antibody 10/27/2018 Skin nodule 10/27/2018 Spermatocele 10/27/2018 Transient cerebral ischemia 10/27/2018 Umbilical hernia 10/27/2018 Acquired hypothyroidism 11/29/2017 Empty sella 11/29/2017 History of radiation exposure 11/29/2017 Current smoker 02/20/2017 Increased body mass index (BMI) 02/16/2017 Squamous cell carcinoma of right lung 07/08/2016 Overview (03/13/2020): Status post bronchoscopy in 07/01/2016. Right upper lobe endobronchial mucosal biopsy came back positive for squamous cell cancer. Patient also has history of head and neck cancer in 2008 for which she underwent radiation and chemotherapy. Patient was referred to [facility], he saw Dr. Martinez and Dr. Kumar, underwent elective resection of central right upper lobe squamous cell carcinoma utilizing and open transaxillary thoracotomy on 09/14/2016. Final pathology demonstrates carcinoma in situ with no evidence of invasion. All regional lymph nodes were negative. 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 Bronchoscopy was performed in May 2012 which showed abnormal appearing right upper lobe mucosa. Biopsies showed carcinoma in situ. He was referred to [facility] and there was evaluated by thoracic surg History of head and neck cancer 04/08/2016 Overview (10/27/2018): Patient follows with Dr. Sandoval/ENT service He was diagnosed with head and neck cancer in 2008 and underwent radiation therapy followed by chemotherapy. He saw Dr June in past. Tobacco dependence 04/08/2016 Angina pectoris 01/27/2016 Shortness of breath at rest 01/27/2016 Bruit 10/24/2014 Osteoarthritis of lumbar spine 09/15/2014 Hypertension 07/10/2014 Fatigue 07/10/2014 Gastroesophageal reflux disease 07/10/2014 Malignant neoplasm of larynx 07/10/2014 Arthritis 07/10/2014 Benign essential hypertension 12/08/2013 Headache(784.0) 11/30/2013 Osteoarthritis of cervical spine without myelopa thy 11/30/2013 Shoulder joint pain 11/30/2013 Depressive disorder 11/08/2013 Triple vessel coronary artery disease 08/24/2012 Hypercholesterolemia 08/24/2012 Chest pain 08/15/2012 Congestive heart failure 08/15/2012 Chronic obstructive pulmonary disease 05/26/2012 Lung mass 05/18/2012 Current Treatment and Therapy Plans No current plan information found. Past Treatment and Therapy Plans No past plan information found. Lifetime Dose Tracking * Chemical Lifetime Dose Automatic Entry Manual Entr y Air kerma at the reference point (Ka,r) 704 mGy 0 mGy 704 mGy DLP 359 mGycm 359 mGycm 0 mGycm
--- OUTSIDE RECORDS SUMMARY | 2024-07-05 01:28 | XMS_ITS | Encounter Summary ---
Author Organization [facility] Address [address] [place] [address] Care Team Providers Care Engineer Second Assistant Name Role Phone Elodia Shoemaker APRN-LIGHT ARMORED VEHICLE OFFICER Primary Care Provider + Encounter Details Date Type Department Care Team (Late st Contact Info) Description 03/16/2022 Lab Requisition [facility] Care DermPath Lab [address] [place] [address] Laron Prescott MD [address] [place] [address] Social History Tobacco Use Types [...] Priority Date/Time Associated Diagnosis Comments DERMATOPATHOLOGY Routine 03/15/2022 12:0 0 AM ONLINE EDITOR documented in this encounter Results * DERMATOPATHOLOGY (03/15/2022 12:00 AM ONLINE EDITOR) Case Report Dermatopathology Report Case: [id number] Authorizing Provider: Laron Prescott MD Collected: 03/15/2022 12:00 AM Ordering Location: [facility] DermPath Lab Received: 03/16/2022 11:33 AM Pathologist: Tasia Malone MD Specimen: Skin, right amish 12:56 PM [facility] DERMATOPATHOLOGY LABORATORY Final Diagnosis Specimen A. SKIN, right amish: SQUAMOUS CELL CARCINOMA IN SITU, PRESENT AT THE BASE OF THE SPECIMEN (D04.39) (see microscopic description and comment) 12:56 PM ONLINE EDITOR DERMATOPATHOLOGY LABORATORY Clinical History R/O BCC 12:56 PM ONLINE EDITOR DERMATOPATHOLOGY LABORATORY Gross Description Specimen A: Received is one formalin filled container labeled with the patient's name and designated right amish. The specimen consists of a shave biopsy measuring [id number]. Jar 0. 12:56 PM ONLINE EDITOR DERMATOPATHOLOGY LABORATORY Microscopic Description Specimen A. SKIN, right amish: The epidermis shows parakeratosis, full thickness disorderly maturation of keratinocytes, mitoses at different levels, and dyskeratotic cells. The lesion extends to the base of the biopsy. COMMENT: An invasive squamous cell carcinoma cannot be ruled out. 12:56 PM [facility] DERMATOPATHOLOGY LABORATORY Disclaimer An external and internal positive and negative controls are appropriate for the histochemical, immunohistochemical and immunofluorescence stain(s) in this case (if any), except where stated explicitly. The performance characteristics of the stain(s) cited in this report were developed and its performance characteristic determined by the Dermatopathology Laboratory at [facility], directed by Dr. Samy Gaspar. These tests need not be, and therefore are not, approved by the [place] Food and Drug Administration. The tests are used for clinical purposes. Billing Codes Specimen Charges Stain Charges 97996 1 12:56 PM ONLINE EDITOR DERMATOPATHOLOGY LABORATORY Embedded Images 12:56 PM ONLINE EDITOR DERMATOPATHOLOGY LABORATORY Pathology/Cytolog y TISSUE SPECIMEN FROM SKIN / Unknown 03/15/2022 03/16/2022 11:33 AM ONLINE EDITOR Laron Prescott MD LAB - PATHOLOGY/CYTO LOGY ORDERABLES DERMATOPATHOLOGY LABORATORY [facility] - Department of Dermatology [facility] Specialized Medicine [address] [place] [address], [address] [phone] documented in this encounter Visit Diagnoses Not on filedocumented in this encounter Care Teams Engineer Second Assistant Relationship Specialty Start Date End Date Elodia Shoemaker APRN-COY [address] [address] PCP - General 03/16/22 documented as of this encounter
--- OUTSIDE RECORDS SUMMARY | 2024-07-05 01:28 | XMS_ITS | Encounter Summary ---
Author Organization [facility] Facility Care Team Providers Care Serger Name Role Phone Elodia Shoemaker NP Primary Care Provider [phone] Kathya Huerta MD Primary Care Provider [phone] No, Physician Primary Care Provider [phone] Dimitris Burrows Primary Care Provider + Encounter Details Date Type Department Care Team (Latest Contact Info) Description 07/01/2016 Orders Only [facility] CLINCONV Provider, MD Susan [address] [place] [address] Social History Tobacco Use Types Packs/Day Years Used Date Smoking Tobacco: Never Assessed Alcohol Use Standard Drinks/Week Comments No 0 (1 standard drink = 0.6 oz pur e alcohol) Sex and Gender Information Value Date Recorded Sex Assigned at Not on file Legal Sex Male 3:06 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 Historical Provider Final Res ult documented in this encounter Visit Diagnoses Not on filedocumented in this encounter Care Teams Serger Relationship Specialty Start Date End Date Elodia Shoemaker NP PCP - General 07/07/16 01/04/23 Kathya Huerta MD [address] [address] PCP - General 05/11/13 07/06/16 No, Physician PCP - General 09/08/23 09/18/23 Dimitris Burrows PA [facility] [place] [address] PCP - General Internal Medicine 09/19/23 documented as of this encounter
--- OUTSIDE RECORDS SUMMARY | 2024-07-05 01:28 | XMS_ITS | Referral Summary ---
Author Organization [facility] Address [address] [place] [address] Care Team Providers Care Maintenance Painter Name Role Phone Dimitris Burrows Primary Care Provider + Allergies Active Allergy Reactions Criticality Noted Date Comments Atorvastatin Muscle pain Medium 05/11/2017 Methocarbamol Diarrhea Low 11/08/2013 Terbinafine Diarrhea Low 10/24/2014 Medications ALPRAZolam (XANAX) 1 mg tablet 1 8 Active aspirin 81 mg tablet daily. 1 Active baclofen (LIORESAL) 10 mg tablet TAKE 1/2 TABLET THREE TIMES DAILY Active cyanocobalamin (Vitamin B-12) 1,000 mcg tabletIndicatio ns:Prevention of Vitamin B12 Deficiency Take 1 tablet (1,000 mcg total) by mouth Active escitalopram (LEXAPRO) 20 mg tablet Take 1 tablet (20 mg total) by mouth Active esomeprazole DR (NexIUM) 40 mg capsule Take 1 capsule (40 mg total) by mouth Active HYDROcodone-moi taminophen (NORCO) 10-325 mg per tabletIndicatio ns:Pain 0 8 Active multivitamin tabletIndicatio ns:Vitamin Deficiency Prevention Active simvastatin (ZOCOR) 20 mg tablet Take 1 tablet (20 mg total) by mouth Active acetaminophen ER (TYLENOL) 650 mg 8 hr tablet TAKE 1 TABLET 4 TIMES DAILY NEEDED. Active diclofenac sodium (VOLTAREN) 1 % gel Place on the skin as needed Active cholecalciferol (VITAMIN D-3) 2000 unit capsule Takes D3 67719 Units once a week Active nitroglycerin (nitroglycerin) 400 mcg/spray spray Place 1 spray under the tongue every 5 (five) minutes as needed for chest pain 1 Bottle 5 0 Active albuterol HFA (PROVENTIL HFA,VENTOLIN HFA,PROAIR HFA) 90 mcg/actuation inhaler Inhale 2 puffs every 6 (six) hours as needed for wheezing or shortness of breath OK TO SUBSTITUTE IF ALTERNATIVE CHEAPER 1 each 11 2 Active levothyroxine (SYNTHROID) 175 mcg tablet 4 Active fluticasone-ume clidin-vilanter (Trelegy Ellipta) 100-62.5-25 mcg inhaler Inhale 1 puff by mouth once daily 60 each 5 4 Active ranolazine ER (RANEXA) 500 mg 12 hr tablet Take 1 tablet by mouth twice daily 180 tablet 4 Active Active Problems Problem Noted Date Diagnosed Date Abnormal stress test 10/11/2019 Overview (10/11/2019): Added automatically from request for surgery [id number] Acoustic neuroma 10/27/2018 Bilateral cataracts 10/27/2018 Bone [...] radiation and chemotherapy. Patient was referred to [facility], he saw Dr. Martinez and Dr. Kumar, [...] carcinoma in situ. He was referred to [facility] and there was evaluated by thoracic surg [...] obstructive pulmonary disease 05/26/2012 Lung mass 05/18/2012 Immunizations Immunization Administration Dates Next Due Hep A, Adult 05/17/2019,10/30/2018 Hep B Vaccine 02/05/2019 Hep B, Unspecified 05/17/2019 Influenza, Quadrivalent, Spl it, Preservative Free, Intramuscular 01/26/2018,04/02/2016 Influenza, Trivalent, High D ose, Split, Preservative Free, Intramuscular 05/17/2019 Influenza, Trivalent, IM (MDV) 02/07/2015,2013,02/27/2013 Influenza, Trivalent, Preser vative Free, Intramuscular 01/30/2013 Influenza, Unspecified 09/18/2014,06/06/2013 Moderna SARS-CoV-2 Monovalen t Vaccination (12+ YRS) 02/19/2021,01/22/2021 Pneumococcal Conjugate, Unspecified 01/29/2005 Pneumococcal Polysaccharide PPV23 04/08/2016 ZOSTER Recombinant 05/17/2019 Social History Tobacco Use Types Packs/Day Years Used Date Smoking Tobacco: Every Day Cigarettes 0.2 45 Smokeless Tobacco: Never Comments:Used to smoke up to 2ppd Alcohol Use Standard Drinks/Week Comments No 0 (1 standard drink = 0.6 oz pur e alcohol) Sex and Gender Information Value Date Recorded Sex Assigned at Not on file Legal 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 Gender Identity Not on file Sexual Orientation Not on file Last Filed Vital Signs Vital Sign Reading Time Taken Comments Blood Pressure 101/64 11/01/2023 4:03 PM CDT Pulse 62 11/01/2023 4:03 PM CDT Temperature 36.5 C (97.7 F) 11/01/2023 4:03 PM CDT Respiratory Rate 18 11/01/2023 4:03 PM CDT Oxygen Saturation 96% 11/01/2023 4:03 PM CDT Inhaled Oxygen Concentration - - Weight 65.5 kg (144 lb 6.4 oz) 11/01/2023 4:03 P M CDT Height 177.8 cm (5' 10 ) 11/01/2023 4:03 PM CDT Body Mass Index 20.72 11/01/2023 4:03 PM CDT Plan of Treatment Not on file Procedures Procedure Name Priority Date/Time Associated Diagnosis Comments CT ABDOMEN PELVIS WO CONTRAST Routine 08/08/2014 2:00 PM CDT from Last 3 Months or Most Recently Relevant to Health Maintenance Results * CT Abdomen Pelvis WO Contrast (08/08/2014 2:00 PM CDT) Anatomical Region Laterality Modality Body N/A Computed Tomogra phy 08/08/2014 2:00 PM CDT Impressions 08/09/2014 5:25 AM CDT No acute findings in the abdomen pelvis. No mass lesions. No change. THIS IS AN ELECTRONICALLY VERIFIED REPORT 08/09/2014 5:21 AM: Wilson Delong M.D. Wilson Delong M.D. RW:katie 05:21 AM 05:21 AM JONAH [EOD] Narrative 08/09/2014 5:25 AM CDT EXAMINATION: CT ABDOMEN AND PELVIS WITHOUT CONTRAST HISTORY: Testicular pain COMPARISON: 03/12/2014 FINDINGS: The lung bases are unremarkable. The liver is unremarkable on this noncontrast study. Gallbladder surgically absent. The spleen and pancreas are unremarkable on this noncontrast study. The adrenal glands are normal size. Kidneys are normal size. No hydronephrosis. Right-sided 2 mm nonobstructing renal stones. The aorta is normal caliber with Moderate atheromatous calcifications. There is mild degenerative change of the spine. No evidence of bowel dilation. There are a few left colon diverticula without evidence of diverticulitis. There is a normal appendix. The small bowel is unremarkable. Urinary bladder unremarkable. No evidence of pneumoperitoneum. No ascites. Procedure Note Provider, MD Susan - 09/16/2020 EXAMINATION: CT ABDOMEN AND PELVIS WITHOUT CONTRAST HISTORY: Testicular pain COMPARISON: 03/12/2014 FINDINGS: The lung bases are unremarkable. The liver is unremarkable on this noncontrast study. Gallbladdersurgically absent. The spleen and pancreas are unremarkable on this noncontrast study. The adrenal glands are normal size. Kidneys are normal size. No hydronephrosis. Right-sided 2 mm nonobstructing renal stones. The aorta is normal caliber with Moderate atheromatous calcifications.There is mild degenerative change of the spine. No evidence of bowel dilation. There are a few left colon diverticulawithout evidence of diverticulitis. There is a normal appendix. The small bowel is unremarkable. Urinary bladder unremarkable. No evidence of pneumoperitoneum. No ascites.IMPRESSION: No acute findings in the abdomen pelvis. No mass lesions. No change. THIS IS AN ELECTRONICALLY VERIFIED REPORT 08/09/2014 5:21 AM: Wilson Delong M.D. Wilson Delong M.D. RW:katie 05:21 AM 05:21 AM JONAH [EOD] us Ian Vera MD IMG CT PROCEDURES Final Result from Last 3 Months or Most Recently Relevant to Health Maintenance Insurance MEDICARE [facility] [place] [address] [place] [address] MEDICARE [place]ICARE [place] MEDICARE [employer] [facility] Advance Directives For more information, please contact: [phone] * Full Code (Latest Code Status on File) Date Activated Date Inactivated Comments 10/26/2019 8:41 AM 01/13/2020 12:53 PM Care Teams Maintenance Painter Relationship Specialty Start Date End Date Dimitris Burrows PA [facility] [place] [address] PCP - General Internal Medicine 09/19/23
--- OUTSIDE RECORDS SUMMARY | 2024-07-05 01:28 | XMS_ITS | Encounter Summary ---
Author Organization [facility] Facility Care Team Providers Care Physician Practice Consultant Name Role Phone Elodia Shoemaker NP Primary Care Provider No, Physician Primary Care Provider [phone] Dimitris Burrows Primary Care Provider + Encounter Details Date Type Department Care Team (Latest Contact Info) Description 07/07/2016 Orders Only [facility] CLINCONV ProviderSusan MD [address] [place] [address] Social History Tobacco Use Types Packs/Day Years Used Date Smoking Tobacco: Never Assessed Alcohol Use Standard Drinks/Week Comments No 0 (1 standard drink = 0.6 oz pur e alcohol) Sex and Gender Information Value Date Recorded Sex Assigned at Not on file Legal Sex Male 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 Historical Provider Final Res ult documented in this encounter Visit Diagnoses Not on filedocumented in this encounter Care Teams Physician Practice Consultant Relationship Specialty Start Date End Date Elodia Shoemaker NP PCP - General 07/07/16 01/04/23 No, Physician PCP - General 09/08/23 09/18/23 Dimitris Burrows PA [facility] [place] [address] PCP - General Internal Medicine 09/19/23 documented as of this encounter
--- OUTSIDE RECORDS SUMMARY | 2024-07-05 01:28 | XMS_ITS | Clinical Summary ---
Author Organization [facility] Address [address] [place] [address] Care Team Providers Care Family And Divorce Legal Assistant Name Role Phone Dimitris Burrows Primary [...] (VITAMIN D-3) 2000 unit capsule Takes D3 13956 Units once a week Active nitroglycerin (nitroglycerin) [...] (10/11/2019): Added automatically from request for surgery [id number] Acoustic neuroma 10/27/2018 Bilateral cataracts 10/27/2018 Bone [...] radiation and chemotherapy. Patient was referred to [facility], he saw Dr. Martinez and Dr. Kumar, [...] carcinoma in situ. He was referred to [facility] and there was evaluated by thoracic surg [...] Pneumococcal Polysaccharide PPV23 04/08/2016 ZOSTER Recombinant 05/17/2019 Surgical History Surgery Date Site/Laterality Comments ME PERC/OPEN IMPLNT NEUROSTIM ELECTRODE SUBQ PERM Implantation Of Intraspinal Neurostimulator Permanent - (Added by TW Conv) ME HEMORRHOIDECTOMY INTERNAL RUBBER BAND LIGATIONS Hemorrhoidectomy - (Added by TW Conv) KNEE SURGERY Knee Surgery - (Added by TW Conv) CARDIAC CATHETERIZATION CORONARY ARTERY BYPASS GRAFT CORONARY ANGIOPLASTY SHOULDER SURGERY 06/02/2022 - 06/29/2022 Right Medical History Medical History Date Comments Hx Other Medical chronic fatigue Embolism (HCC) blood clots Hx Other Medical heart problems Pneumonia pneumonia Hx Other Medical hearing aids Hypertension Hypertension Depression Depression Asthma Asthma Hypothyroidism hypothyroidism Chronic obstructive pulmonar y disease (HCC) COPD Anxiety disorder Anxiety Hyperlipidemia Hyperlipidemia Personal history of other di seases of the circulatory system History of essential hyperte nsion - (Added by TW Conv) Personal history of other di seases of the musculoskeletal system and connective tissue History of osteoarthritis - (Added by TW Conv) Cancer (HCC) Family History Medical History Relation Name Comments Hypertension Brother 1 Family history of hypertension - (Added by TW Conv) Chronic Pain Brother 2 Chronic pain di sorder - (Added by TW Conv) Suicidality Father Family history of suicide - (Added by TW Conv) Suicidality Other 1 Family history of Suicide; Heart disease Other 2 Family history of Heart disease; Hypertension Other 3 Family history of hypertension - (Added by TW Conv) Heart disease Other 4 Family history of cardiac disorder - (Added by TW Conv) Depression Sister Family history of depression - (Added by TW Conv) Relation Name Status Comments Brother 1 Brother 2 Father Other 1 Other 2 Other 3 Other 4 Sister Social History Tobacco Use Types Packs/Day Years Used Date Smoking Tobacco: Every Day Cigarettes 0.2 45 Smokeless Tobacco: Never Comments:Used to smoke up to 2ppd Alcohol Use Standard Drinks/Week Comments No 0 (1 standard drink = 0.6 oz pur e alcohol) Sex and Gender Information Value Date Recorded Sex Assigned at Not on file 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 Gender Identity Not on file Sexual Orientation Not on file Obstetrics History Last Filed Vital Signs Vital Sign Reading [...] 11/01/2023 4:03 PM CDT Plan of Treatment Health Maintenance Due Date Last Done Comments Colon Cancer Screening-Colonoscopy 1950 Depression Screening 1950 Hepatitis C Screening 1950 DTaP/Tdap/Td Vaccine (1 - Tdap) 11/13/1963 Abdominal Aortic Aneurysm (A AA) Screen 2017 08/08/2014, 03/12/2014 Well Visit 65+ 2017 Zoster Vaccine (2 of 2) 07/12/2019 05/17/2019 Fall Risk Assessment 10/25/2020 10/26/2019 Pneumococcal vaccine 65+ (3 of 3 - PCV20 or PCV21) 04/08/2021 04/08/2016, 01/29/2005 Covid-19 Vaccine (3 - 2023-2 5 season) 2024 02/19/2021, 01/22/2021 Hepatitis B Screening Completed 05/17/2019, 019 Influenza Vaccine Completed 02/13/2024, , 03/04/2020, Additional history exists Procedures Procedure Name Priority Date/Time Associated Diagnosis [...] AM: Wilson Delong M.D. Wilson Delong M.D. RW:katei 05:21 AM 05:21 AM JONAH [EOD] Ian Vera MD IMG CT PROCEDURES Final Result from Last 3 Months or Most Recently Relevant to Health Maintenance Insurance [facility]IC[facility] MEDICARE [place] MEDIC[place] [facility] Advance Directives For more information, please contact: [phone] * Full Code (Latest Code Status on File) Date Activated Date Inactivated Comments 10/26/2019 8:41 AM 01/13/2020 12:53 PM Care Teams Family And Divorce Legal Assistant Relationship Specialty Start Date End Date Dimitris Burrows PA [facility] [place] [address] PCP - General Internal Medicine 09/19/23
[2024-07-05 03:50] VITALS: BP 125/77; PULSE 61; RESP 17; O2SAT 99
== END 2024-07-05 03:52 ==
PROVIDERS: Emergency Provider Physician Assistant
DX: Z43.1 Encounter for attention to gastrostomy (principal); I25.10 Atherosclerotic heart disease of native coronary artery without angina pectoris; I10 Essential (primary) hypertension; J44.9 Chronic obstructive pulmonary disease, unspecified; E78.00 Pure hypercholesterolemia, unspecified; E03.9 Hypothyroidism, unspecified; G62.9 Polyneuropathy, unspecified; K21.9 Gastro-esophageal reflux disease without esophagitis; F17.210 Nicotine dependence, cigarettes, uncomplicated; Z98.61 Coronary angioplasty status; Z95.1 Presence of aortocoronary bypass graft; Z85.850 Personal history of malignant neoplasm of thyroid; Z86.0101 Personal history of adenomatous and serrated colon polyps; Z85.118 Personal history of other malignant neoplasm of bronchus and lung; Z85.828 Personal history of other malignant neoplasm of skin; Z90.2 Acquired absence of lung [part of]; Z90.49 Acquired absence of other specified parts of digestive tract; Z98.49 Cataract extraction status, unspecified eye; Z96.1 Presence of intraocular lens; Z79.82 Long term (current) use of aspirin; Z79.899 Other long term (current) drug therapy
CPT/HCPCS: 43762; 99283

== ENCOUNTER 2024-07-09 16:23 | Emergency (ER) | payer MEDICARE, OTHER, SELFPAY ==
--- NOTE | ~2024-07-09 | XR_ITS ---
EXAM: XR abdomen gastric tube insert DATE: 07/09/2024 17:35 HISTORY: post re-insertion . COMPARISON: 07/05/2024. FINDINGS: Clear lung bases. Sternotomy wires and cholecystomy clips. G-tube, instilled contrast fill s the proximal and distal portions of the stomach extending into the first and second portions of the duodenum. No obvious contrast extravasation. Normal bowel gas pattern. Large volume of inspissated c olonic stool. Lumbar scoliosis. Lumbar degenerative disc disease. IMPRESSION: G-tube in good position, contrast in the stomach and proximal duodenum. Large volume of c olonic stool as can be seen with constipation. Reviewed, dictated and finalized at location K. IMPRESSION: G-tube in good position, contrast in the stomach and proximal duode num. Large volume of colonic stool as can be seen with constipation.
[2024-07-09 16:22] VITALS: BP 112/83; PULSE 65; RESP 14; TEMP 36.4; O2SAT 98
[2024-07-09 16:35] VITALS: RESP 14; O2SAT 100
[2024-07-09 16:44] VITALS: BP 112/83; PULSE 62; RESP 19; O2SAT 100
[2024-07-09 17:00] VITALS: PULSE 63
--- NOTE | 2024-07-09 17:10 | ED_ITS ---
HPI - General Adult General Chief complaint: Unspecified Stated complaint: pulled out g tube Time Seen by Provider: 07/09/24 16:29 History of Present Illness HPI narrative: 73-year-old male presenting to the emergency department for dislodged G-tube. G-tube is dislodged sometime last night. Was recently here several days ago for similar events, patient does not remember how is due to get dislodged, currently wearing an abdominal binder. Denies any complaints but does have a nonpro ductive cough noted on examination. Patient states he is otherwise feeling okay and denies any shortness a breath, chest pain, nausea, vomiting, abdominal pain or back pain. Related Data Home Medications ?Medication ?Instructions ?Recorded ?Confirmed ?Last Taken ?Type nitroglycerin 400 mcg/spray 1 spray translingual Q5M PRN Chest 07/21/20 03/25/24 Unknown History translingual Pain albuterol sulfate 2 puff inhalation Q4H PRN 03/08/24 03/25/24 Unknown History Shortness Of Breath fluticasone fur. 100 mcg-umeclid 1 inh inhalation DAILY 03/08/24 03/25/24 Unknown History 62.5 mcg-vilant 25 mcg inhalat.powder (Trelegy Ellipta) ipratropium-albuterol 1 vial inhalation TID 03/08/24 03/25/24 Unknown History bisacodyl 10 mg rectal suppository 10 mg RECTAL DAILY PRN Constipation 03/25/24 03/25/24 Unknown History naloxone 4 mg/actuation nasal spray 4 mg intranasal Q2M 03/25/24 03/25/24 Unknown History sodium phosphates 19 gram-7 118 ml RECTAL ONCE 03/25/24 03/25/24 Unknown History gram/118 mL enema (Fleet Enema) Allergies Allergy/AdvReac Type Severity Reaction Status Date / Time atorvastatin AdvReac Mild MADE ME Verified 07/09/24 16:37 SICK methocarbamol AdvReac Mild MADE ME Verified 07/09/24 16:37 SICK terbinafine AdvReac Mild MADE ME Verified 07/09/24 16:37 SICK Review of Systems Review of Systems: As reviewed above in HPI [facility] Past Medical History Medical History Chronic obstructive pulmonary disease Gastroesophageal reflux disease Thyroid cancer Adenomatous colon polyp Hyponatremia Rhabdomyolysis Lymphocytic esophagitis Nonerosive esophageal reflux disease Frequent falls Coronary artery disease Peripheral neuropathy Basal cell carcinoma Hypothyroidism Lung cancer status post right upper lobe pneumonectomy Hypertension High cholesterol Surgical History Surgical History History of esophageal dilatation History of cholecystectomy History of cataract extraction with lens replacement (2015) History of four vessel coronary artery bypass graft (09/2002) History of bilateral inguinal hernia repair History of open reduction and internal fixation (ORIF) procedure (06/2022) repair right proximal humerus fracture History of coronary angioplasty History of ventral hernia repair (06/2006) gastric volvulus with ventral hernia repair History of medial meniscus repair of right knee (2005) History of hemorrhoidectomy History of bilateral carpal tunnel release History of pneumonectomy (2014) right upper lobe due to lung cancer History of colonoscopy History of esophagogastroduodenoscopy (EGD) (2006) Family History Family History Mother MVA (motor vehicle accident) Father Gunshot wound Sibling Heart disease Other Family history of cardiovascular disease Social History Social History Social History: Surrogate medical decision maker: Linwood Rubio ([phone]), brother. Code status: Full code. Smoking packs per day: 1 Smoking cigarettes per day: 20.0 Years smoked: 50 Smoking pack-years: 50.00 Smoking status: Current every day smoker Second hand tobacco smoke exposure: Yes Additional smoking assessment comments: has cut down to 4-6 cigarettes a day Alcohol intake: former Alcohol use details: no alcohol since August 31, 1984 Substance use: never Do You Feel Safe in your Home?: Yes Lack of Transportation: No Lack of Food: Never True Current Housing: I Have Housing Concerned About Future Housing: No Difficulty Paying Gas/Electric Bills: No Difficulty Paying for Meds: No Currently Unemployed: No Education: Decline to Answer Difficulty w/ Childcare or Family Care: No Additional living arrangements comments: Lives alone. with 2 children. Currently at [facility]. 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 Spiritual care concerns: No Exam Narrative: GENERAL: Elderly, thin but not any acute distress. Coughing frequently, nonproductive HEAD: [Normocephalic, atraumatic.] EYES: [PERRLA and EOMI.] ENT: Nares clear, no rhinorrhea or epistaxis. Mucous membranes moist. NECK: Supple. CHEST: [Clear to auscultation. No respiratory distress.] HEART: [Regular rate and rhythm]. No murmur heard. [Normal peripheral pulses.] ABDOMEN: [Soft, nondistended], [nontender], [No rigidity or guarding] previous G-tube site without any redness, erythema, bleeding or granulation tissue. No G-tube in place. EXTREMITIES: Normal range of motion. [No edema.] SKIN: Warm, dry, no rash. NEURO: [No focal deficits]. Alert and oriented [x3.] PSYCH: [Normal mood and affect.] Course Vital Signs Vital signs: Vital Signs Temperature 36.4 C 07/09/24 16:22 Pulse Rate 65 07/09/24 16:22 Respiratory Rate 14 07/09/24 16:22 Blood Pressure 112/83 07/09/24 16:22 Pulse Oximetry 98 07/09/24 16:22 Oxygen Delivery Nasal Cannula 07/09/24 16:22 Oxygen Flow Rate 2 07/09/24 16:22 Temperature 36.4 C 07/09/24 16:22 Pulse Rate 63 07/09/24 17:00 Respiratory Rate 19 07/09/24 16:44 Blood Pressure 112/83 07/09/24 16:44 Pulse Oximetry 100 07/09/24 16:44 Oxygen Delivery Nasal Cannula 07/09/24 16:22 Oxygen Flow Rate 2 07/09/24 16:35 Procedures Feeding Tube Replacement Feeding Tube #1: Feeding Tube Placement Date: 07/09/24 Feeding Tube Placement Time: 17:13 Type of Tube: gastrostomy Insertion Site Prior to Procedure: clean Tube Used for Reinsertion: other ([employer]) Portuguese Tube Size (F): 20 Balloon size (mL): 20 Verification of Placement: gastrografin injection Tube Secured by: tape/dressing Patient Tolerated Procedure: well and no complications Medical Decision Making MDM Narrative Medical decision making narrative: 73-year-old male presenting for dislodged G-tube. Patient is not any acute dis tress. Does have a nonproductive cough frequently. COVID swabs were obtained, G-tube was inserted without difficulty, please see procedure note above. Postprocedural x-ray was obtained which shows appropriate positioning. He is safe and stable for discharge back was fully at this time. EMS transfer given patient's chronic debility. Vital Signs Vital Signs: Vital Signs Temperature 36.4 C 07/09/24 16:22 Pulse Rate 65 07/09/24 16:22 Respiratory Rate 14 07/09/24 16:22 Blood Pressure 112/83 07/09/24 16:22 Pulse Oximetry 98 07/09/24 16:22 Oxygen Delivery Nasal Cannula 07/09/24 16:22 Oxygen Flow Rate 2 07/09/24 16:22 Temperature 36.4 C 07/09/24 16:22 Pulse Rate 63 07/09/24 17:00 Respiratory Rate 19 07/09/24 16:44 Blood Pressure 112/83 07/09/24 16:44 Pulse Oximetry 100 07/09/24 16:44 Oxygen Delivery Nasal Cannula 07/09/24 16:22 Oxygen Flow Rate 2 07/09/24 16:35 Lab Data Lab results reviewed: Yes I reviewed the patient's lab results. Labs: Lab Results 07/09/24 Range/Units 16:39 Influenza A (RT-PCR) Negative (Negative) Influenza B (RT-PCR) Negative (Negative) RSV (RT-PCR) Negative (Negative) SARS-CoV-2 RNA (RT-PCR) Negative (Negative) Imaging Data Attestation: I personally reviewed and interpreted this imaging study as follows: My impression: Appropriate G-tube positioning Discharge Plan Discharge Clinical Impression: Dislodged gastrostomy tube Patient Disposition: NH Intermediate/Asst Living Condition: Stable Instructions: Antibiotic Form Additional Instructions: Your G-tube is in place, ready for immediate use. Follow-up with regular doctor. Return with any new or worsening concerns. Patient Language: Tajik Prescriptions: No Action nitroglycerin 400 mcg/spray spray,non-aerosol 1 spray translingual Q5M PRN (Reason: Chest Pain) Rx Instructions: do not exceed 3 doses per episode Trelegy Ellipta 100-62.5-25 mcg blister with device 1 inh INHALATION DAILY albuterol sulfate 2 puff inhalation Q4H PRN (Reason: Shortness Of Breath) ipratropium-albuterol 1 vial inhalation TID bisacodyl 10 mg Suppository 10 mg RECTAL DAILY PRN (Reason: Constipation) Rx Instructions: give if milk of magnesia doesn't work Fleet Enema 19-7 gram/118 mL Enema 118 ml RECTAL ONCE Rx Instructions: give if no results 1 day after suppository naloxone 4 mg/actuation [place],Non-Aerosol 4 mg INTRANASAL Q2M Rx Instructions: spray 1 dose into ONE nostril; alternate nostrils w each dose until help arrives acetaminophen [Nortemp] 160 mg/5 mL Suspension 650 mg feeding tube Q6H PRN (Reason: Pain Rated 1-3) Qty: 120 0RF polyethylene glycol 3350 [Miralax] 17 gram Powder In Packet 17 g feeding tube QAM PRN (Reason: Constipation) Qty: 30 0RF hydrocodone-acetaminophen 5-325 mg Tablet 1 tablet feeding tube Q6H PRN (Reason: Pain rated 4-10) Qty: 10 0RF levothyroxine 25 mcg Tablet 37.5 mcg feeding tube DAILY@0630 Qty: 45 0RF amoxicillin-pot clavulanate 875-125 mg tablet 1 tablet feeding tube Q12H Qty: 5 0RF polysaccharide iron complex 150 mg iron Capsule 150 mg feeding tube BID Qty: 60 0RF magnesium hydroxide [Milk of Magnesia] 400 mg/5 mL Suspension 400 mg feeding tube DAILY PRN (Reason: Constipation) Qty: 355 0RF Rx Instructions: give if no BM in 3 days baclofen 10 mg tablet 5 mg feeding tube TID PRN (Reason: muscle spasms) Qty: 30 0RF simvastatin 20 mg tablet 20 mg feeding tube DAILY Qty: 30 0RF levothyroxine [Synthroid] 150 mcg Tablet 150 mcg feeding tube DAILY@0630 Qty: 30 0RF magnesium citrate [Citroma] Solution 300 ml feeding tube DAILY PRN (Reason: Constipation) Qty: 296 0RF Rx Instructions: give if no results from enema aspirin 81 mg Tablet,Chewable 81 mg feeding tube DAILY Qty: 30 0RF escitalopram oxalate 20 mg Tablet 20 mg feeding tube QHS Qty: 30 0RF Saccharomyces boulardii 250 mg Capsule 250 mg feeding tube BID Qty: 30 0RF Rx Instructions: stop 04/03/24 Mucinex 600 mg G-tube BID Qty: 60 0RF Rx Instructions: Ends 04/02/24 benzonatate 100 mg G-tube Q8H PRN (Reason: Cough) Qty: 20 0RF omeprazole 40 mg G-tube BID Qty: 60 0RF sodium chloride 500 mg G-tube BID Qty: 60 0RF alprazolam 1 mg tablet 1 mg feeding tube TID PRN (Reason: anxiety) Qty: 10 0RF Follow-up/Referrals: PHYSICIAN NOT ON STAFF,NONSTAFF [Primary Care Provider] - Stand Alone Forms: Longterm Discharge Time of Disposition: 18:50
[2024-07-09 17:31] LABS: Influenza A QL RT-PCR Negative (Negative); Influenza B QL RT-PCR Negative (Negative); RSV RNA, RT-PCR Negative (Negative); SARS-CoV-2 RNA PCR Negative (Negative)
--- NOTE | 2024-07-09 18:48 | PC.NURSE ---
report called to hever at [facility] at this time.
--- OUTSIDE RECORDS SUMMARY | 2024-07-09 19:05 | XMS_ITS ---
Author Organization [facility] Address [address] [place], [place] [id number] Care Team Providers Care Product Communications Manager Name Role Phone Ramon Adam Unavailable Unavailable NATACHA MISTRY Unavailable [phone] Allergies No Known Allergies REASON FOR VISIT Patient presents for at-risk foot care . The patient has painful toenails and callus that cause difficulty with ambulation and shoegear. The onset is gradual Medications Medication SIG (Take, Route, Fr equency, Duration) Notes Start Date End Date Status Vicodin Active Xanax Active Lexapro Active Simvastatin Active NexIUM Active Aspirin 81 Active Albuterol Sulfate HFA Active Baclofen Active Social History Tobacco Use: Social History Observation Description Date Details (start date - stop date) Former Smoker NA - NA Tobacco Use/Smoking Question Answer Notes Tobacco use: former smoker Encounters Encounter Location Date Provider Diagnosis [facility] [place] [id number] [facility] [address] [place], [place] [id number] 10/25/2023 NATACHA MISTRY Tinea unguium B35.1 ; Pain in right toe(s) M79.674 ; Pain in left toe(s) M79.675 ; Atherosclerosis of [place] arteries of extremities with intermittent claudication, bilateral legs I70.213 and Acquired keratosis [keratoderma] palmaris et plantaris L85.1 Assessments Encounter Date Diagnosis (ICD Code) Assessment Notes Treatment Notes Treatment Clinical Notes Section Notes 10/25/2023 Tinea unguium (ICD-10 - B35.1) FUNGAL TOENAILS: Discussed various treatment options for fungal toenails including debridement, topical antifungals, oral antifungals, toenail avulsion, or toenail matrixectomy. NAIL DEBRIDEMENT: Nails 1-5 Bilateral were debrided extensively with nail nippers and emery board, reducing length and girth to pink healthy tissue with any subungual debris and necrotic tissue removed 10/25/2023 Pain in right toe(s) (ICD-10 - M79.674) 10/25/2023 Pain in left toe(s) (ICD-10 - M79.675) 10/25/2023 Atherosclerosis of [place] arteries of extremities with intermittent claudication, bilateral legs (ICD-10 - I70.213) 10/25/2023 Acquired keratosis [keratoderma] palmaris et plantaris (ICD-10 - L85.1) Hyperkeratosis: The skin was prepped with isopropyl alcohol. Using a 15-blade scalpel, the hyperkeratotic skin lesions were sharply debrided down to healthy appearing skin. Plan Of Treatment Treatment Notes Assessment Notes Tinea unguium FUNGAL TOENAILS: Discussed various treatment options for fungal toenails including debridement, topical antifungals, oral antifungals, toenail avulsion, or toenail matrixectomy. NAIL DEBRIDEMENT: Nails 1-5 Bilateral were debrided extensively with nail nippers and emery board, reducing length and girth to pink healthy tissue with any subungual debris and necrotic tissue removed Acquired keratosis [keratode rma] palmaris et plantaris Hyperkeratosis: The skin was prepped with isopropyl alcohol. Using a 15-blade scalpel, the hyperkeratotic skin lesions were sharply debrided down to healthy appearing skin. Next Appt Details Follow Up: 10-12 Weeks, Reas on: At Risk Foot care, sooner if problems arise Progress Notes * MARCYDENNISOB:1950 (72 yo M)Acc No.[id number]:10/25/2023 Patient: ALEXIA JASON Provider: Jamie Mistry DPM :1950 A ge:72 Y S ex:Male Date:10/25/2023 Address:[address] [place], [place] [id number] Subjective: * Chief Complaints: * 1 . Patient presents for at-risk foot care . The patient has painful toenails and callus that cause difficulty with ambulation and shoegear. The onset is gradual. * HPI: H PI: General care P tadeo presents to the office for at risk foot care. Patient states that their nails are thickened, elongated and painful. Patient states that it is aggravated by shoe gear. Onset is gradual. Patient denies being diabetic., Patient denies taking prescription blood thinners but does take a daily aspirin., Date last seen by Primary physician was 2 weeks ago., Initials LB. * Medical History: A joseph reflux, Cancer (type of cancer), GERD, Leg/Feet cramps, Respiratory disease, Skin Disorder, Arthritis, Skin cancer, Heart Disease, Back Trouble, Radiation therapy, Hypertension, Lung Disease. * Surgical History: s [place] surgery 06/2022, heart bypass 2002, knee replacement 2005. * Social History: T obacco Use: T obacco Use/Smoking T obacco use: f ormer smoker. D rugs/Alcohol: D o you drink alcohol?: No. * Medications: T aking Albuterol Sulfate HFA , Taking Aspirin 81 , Taking Xanax , Taking Vicodin , Taking Simvastatin , Taking Lexapro , Taking NexIUM , Taking Baclofen * Allergies: N .K.D.A. Objective: * Examination: C onstitutional: Constitutional T he patient is awake, alert, well developed, well groomed and well nourished.. D ermatologic: Skin findings: S kin is thin, atrophic and lacking pedal hair.. Hypertrophic / hyperkeratotic lesion: d istal tip of the left 3rd digit. Nail pathology: N ails 1-5 bilateral are elongated, thick, discolored, and dystrophic with subungual debris. They are painful to palpation. ? V ascular: Dorsalis pedis pulse: 0 /4, bilateral. Posterior tibial pulse: 1 /4, bilaterally. Capillary refill: g reater than 3 seconds. Edema: N o edema, bilateral. N eurologic: Gross sensation G ross sensation is intact to light touch..? M usculoskeletal: Muscle Strength M uscle strength is 5/5 in regards to dorsiflexion, plantarflexion, inversion, and eversion in bilateral lower extremities.. ? Assessment: * Assessment: 1. T inea unguium - B35.1 (Primary) 2 . P ain in right toe(s) - M79.674 3 . P ain in left toe(s) - M79.675 4 . A therosclerosis of [place] arteries of extremities with intermittent claudication, bilateral legs - I70.213 5 . A cquired keratosis [keratoderma] palmaris et plantaris - L85.1 Plan: * Treatment: 2. A cquired keratosis [keratoderma] palmaris et plantaris Notes: Hyperkeratosis: The skin was prepped with isopropyl alcohol. Using a 15-blade scalpel, the hyperkeratotic skin lesions were sharply debrided down to healthy appearing skin. * Procedure Codes: 1 1055 TRIM SKIN LESION, Modifiers: Q8 , 13579 DEBRIDE NAIL, 6 OR MORE, Modifiers: 59 , Q8 * Follow Up: 1 0-12 Weeks (Reason: At Risk Foot care, sooner if problems arise) * Billing Information: * Visit Code: * Procedure Codes: 92172 TRIM SKIN LESION. Modifiers: Q8 30154 DEBRIDE NAIL, 6 OR MORE. Modifiers: 59, Q8 * Sign off status: Completed true * Provider: Jamie Mistry DPM Date: 0 10/25/2023 Generated for Kelle Stafford/Volodymyr on: 0 07/09/2024 07:05 PM CDT History and Physical Notes * HPI (History of Present Illness) Category Sub-Category Detail Notes Category Not es HPI General care Patient presents to the office for at risk foot care. Patient states that their nails are thickened, elongated and painful. Patient states that it is aggravated by shoe gear. Onset is gradual. Patient denies being diabetic., Patient denies taking prescription blood thinners but does take a daily aspirin., Date last seen by Primary physician was 2 weeks ago., Initials LB Examination Category Sub-Category Detail Notes Category Not es Dermatologic Skin findings: Skin is thin, at rophic and lacking pedal hair. Nail pathology: Nails 1-5 bilateral are elongated, thick, discolored, and dystrophic with subungual debris. They are painful to palpation Hypertrophic / hyperkeratotic lesion: di stal tip of the left 3rd digit Neurologic Gross sensation Gross sensation is intact to light touch. Vascular Dorsalis pedis pulse: 0/4, bilateral Edema: No edema, bilateral Capillary refill: greater than 3 secon ds Posterior tibial pulse: 1/4, bilaterally Musculoskeletal Muscle Strength Muscle strength is 5/5 in regards to dorsiflexion, plantarflexion, inversion, and eversion in bilateral lower extremities. Constitutional Constitutional The patient is a wake, alert, well developed, well groomed and well nourished.
--- OUTSIDE RECORDS SUMMARY | 2024-07-09 19:06 | XMS_ITS | Encounter Summary ---
Author Organization [facility] Address [address] [place] [address] Care Team Providers Care Senior Electronics Technician Name Role Phone Elodia Shoemaker APRN-SHIPPING HAND Primary Care Provider + Encounter Details Date Type Department Care Team (Late st Contact Info) Description 06/08/2022 Lab Requisition [facility] Care DermPath Lab [address] [facility] [place] [address] Laron Prescott MD [address] [place] [address] Social History Tobacco Use Types [...] Diagnosis Comments DERMATOPATHOLOGY Routine 06/07/2022 3:33 AM INTERVENTIONAL PHYSIATRIST documented in this encounter Results * DERMATOPATHOLOGY (06/07/2022 3:33 AM INTERVENTIONAL PHYSIATRIST) Case Report Dermatopathology Report Case: [id number] Authorizing Provider: Laron Prescott MD Collected: 06/07/2022 03:33 AM Ordering Location: [facility] DermPath Lab Received: 06/08/2022 01:18 PM Pathologist: Tasia Malone MD Specimen: Skin, left helix 4:36 PM [facility] DERMATOPATHOLOGY LABORATORY Final Diagnosis Specimen A. 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 The specimen consists of a shave biopsy measuring 7x5x3, 3x3x2 mm. Jar 0. 4:36 PM [facility] DERMATOPATHOLOGY LABORATORY Microscopic Description Specimen A. SKIN, left helix: The epidermis shows parakeratosis, full thickness disorderly maturation of keratinocytes, mitoses at different levels, and dyskeratotic cells. There is a column of marked compact hyperkeratosis. Additional deeper sections were obtained and reviewed. 4:36 PM [facility] DERMATOPATHOLOGY LABORATORY Disclaimer An external and internal positive and negative controls are appropriate for the histochemical, immunohistochemical and immunofluorescence stain(s) in this case (if any), except where stated explicitly. The performance characteristics of the stain(s) cited in this report were developed and its performance characteristic determined by the Dermatopathology Laboratory at [facility], directed by Dr. Samy Gaspar. These tests need not be, and therefore are not, approved by the [place] Food and Drug Administration. The tests are used for clinical purposes. Billing Codes Specimen Charges Stain Charges 33235 1 4:36 PM [facility] DERMATOPATHOLOGY LABORATORY Embedded Images 4:36 PM [facility] DERMATOPATHOLOGY LABORATORY Pathology/Cytolo gy TISSUE SPECIMEN FROM SKIN / Unknown 06/07/2022 3:33 AM INTERVENTIONAL PHYSIATRIST 06/08/2022 1:18 PM INTERVENTIONAL PHYSIATRIST Laron Prescott MD LAB - PATHOLOGY/CYTO LOGY ORDERABLES DERMATOPATHOLOGY LABORATORY [facility] - Department of Dermatology [facility] [address] [place] [address], [address] [phone] documented in this encounter Visit Diagnoses Not on filedocumented in this encounter Care Teams Senior Electronics Technician Relationship Specialty Start Date End Date Elodia Shoemaker APRN-COY [address] [address] PCP - General 03/16/22 documented as of this encounter
--- OUTSIDE RECORDS SUMMARY | 2024-07-09 19:06 | XMS_ITS | Encounter Summary ---
Author Organization [facility] Care Team Providers Care Enrobing Machine Corder Name Role Phone Elodia Shoemaker NP Primary Care Provider [phone] Kathya Huerta MD Primary Care Provider [phone] No, Physician Primary Care Provider [phone] Dimitris Burrows Primary Care Provider + Encounter Details Date Type Department Care Team (Latest Contact Info) Description 07/01/2016 Orders Only [facility] CLINCONV Provider, MD Susan [address] [place] [id number] Social History Tobacco Use Types Packs/Day Years Used Date Smoking Tobacco: Never Assessed Alcohol Use Standard Drinks/Week Comments No 0 (1 standard drink = 0.6 oz pur e alcohol) Sex and Gender Information Value Date Recorded Sex Assigned at Not on file Legal Sex Male 3:06 AM CLINICAL SYSTEMS ANALYST Gender Identity Not on file Sexual Orientation Not on file documented as of this encounter Plan of Treatment Not on file documented as of this encounter Procedures Procedure Name Priority Date/Time Associated Diagnosis Comments SCAN - PATHOLOGY 07/01/2016 12:0 0 AM CLINICAL SYSTEMS ANALYST documented in this encounter Results * SCAN - PATHOLOGY (07/01/2016 12:00 AM CLINICAL SYSTEMS ANALYST) Narrative 07/01/2016 12:00 AM CLINICAL SYSTEMS ANALYST Ordered by an unspecified provider. Historical Provider Final Res ult documented in this encounter Visit Diagnoses Not on filedocumented in this encounter Care Teams Enrobing Machine Corder Relationship Specialty Start Date End Date Elodia Shoemaker NP PCP - General 07/07/16 01/04/23 Kathya Huerta MD [address] [address] PCP - General 05/11/13 07/06/16 No, Physician PCP - General 09/08/23 09/18/23 Dimitris Burrows PA [facility] [place] [address] PCP - General Internal Medicine 09/19/23 documented as of this encounter
--- OUTSIDE RECORDS SUMMARY | 2024-07-09 19:06 | XMS_ITS | Encounter Summary ---
Author Organization [facility] [place] [facility] Care Team Providers Care Computer Hardware Technician Name Role Phone Elodia Shoemaker NP Primary Care Provider [phone] No, Physician Primary Care Provider [phone] Dimitris Burrows Primary Care Provider + Encounter Details Date Type Department Care Team (Latest Contact Info) Description 08/26/2016 Orders Only [facility] CLINCONV ProviderSusan MD [address] [place] [address] Social History Tobacco Use Types Packs/Day Years Used Date Smoking Tobacco: Never Assessed Alcohol Use Standard Drinks/Week Comments No 0 (1 standard drink = 0.6 oz pur e alcohol) Sex and Gender Information Value Date Recorded Sex Assigned at Not on file Legal Sex Male 3:06 AM RN VISITING Gender Identity Not on file Sexual Orientation [...] on filedocumented in this encounter Care Teams Computer Hardware Technician Relationship Specialty Start Date End Date Elodia Shoemaker NP PCP - General 07/07/16 01/04/23 No, Physician PCP - General 09/08/23 09/18/23 Dimitris Burrows PA [facility] [place] [address] PCP - General Internal Medicine 09/19/23 documented as of this encounter
--- OUTSIDE RECORDS SUMMARY | 2024-07-09 19:06 | XMS_ITS | Clinical Summary ---
Author Organization [facility] Address [address] [place] [address] Phone Care Team Providers Care Morgue Technician Name Role Phone Elodia Shoemaker Primary Care Provider [phone] Allergies Active Allergy Reactions Criticality Noted Date [...] tablet Take 125 mcg by mouth daily vice principal. 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 SALES AGENT Gender Identity Not on file Sexual Orientation Not on file Last Filed Vital Signs Vital Sign Reading Time Taken Comments Blood Pressure 130/70 01/08/2019 1:00 PM CDT Pulse 85 01/08/2019 1:00 PM CDT Temperature - - Respiratory Rate - - Oxygen Saturation 94% 05/11/2017 11:23 AM OUTBOUND SALES AGENT Inhaled Oxygen Concentration - - Weight 71.8 [...] 12/14/2025 Insurance MEDICARE PART A AND B [place] [facility] [employer] Member Subscriber Plan / Payer (Ef fective for All Dates) Name:Cecilio Bergeron Relation to Subscriber:Self Name:Cecilio Bergeron Payer ID:Not on file Group ID:[id number] Type:RX Medicare Part D Address: [place] RX [employer] Express MEDICARE PART A AND B [facility] [address] Care Teams Morgue Technician Relationship Specialty Start Date End Date Elodia Shoemaker ANP [address] [address] PCP - General NURSE PRACTITIONER 01/28/17
--- OUTSIDE RECORDS SUMMARY | 2024-07-09 19:06 | XMS_ITS ---
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 Patient was referred to [facility], he saw Dr. Martinez and [...] carcinoma in situ. He was referred to [facility] and there was evaluated by [...]
--- OUTSIDE RECORDS SUMMARY | 2024-07-09 19:06 | XMS_ITS | Patient Health Record ---
Author Organization [facility] Address [address] [place], [place] [address] Care Team Providers Care Clipper Counters Name Role Phone Ramon Adam Unavailable Unavailable BEULAHEnrique NATACHA Unavailable [phone] Allergies No Known Allergies Reason For Referral No Information Medications Medication SIG (Take, Route, Fr equency, Duration) Notes Start Date End Date Status Aspirin 81 Active Xanax Active Vicodin Active Simvastatin Active Lexapro Active NexIUM Active Baclofen Active Albuterol Sulfate HFA Active Social History Tobacco Use: Social History Observation Description Date Details (start date - stop date) Former Smoker NA - NA Tobacco Use/Smoking Question Answer Notes Tobacco use: former smoker Vital Signs Weight-kg 65.77 kg 12/27/2023 Weight 145 lbs 12/27/2023 Encounters Encounter Location Date Provider Diagnosis [facility] [address] [place], [place] [id number] 08/23/2023 NATACHA SNOOK Tinea unguium B35.1 ; Pain in right toe(s) M79.674 ; Pain in left toe(s) M79.675 and Atherosclerosis of [place] arteries of extremities with intermittent claudication, bilateral legs I70.213 [facility] [address] [place], [place] [id number] 10/25/2023 NATACHA SNOOK Tinea unguium B35.1 ; Pain in right toe(s) M79.674 ; Pain in left toe(s) M79.675 ; Atherosclerosis of [place] arteries of extremities with intermittent claudication, bilateral legs I70.213 and Acquired keratosis [keratoderma] palmaris et plantaris L85.1 [facility] [place] [id number] [id number] 12/27/2023 NATACHA MISTRY Tinea unguium B35.1 ; Pain in right foot M79.671 ; Pain in left foot M79.672 ; Atherosclerosis of [place] arteries of extremities with intermittent claudication, bilateral legs I70.213 and Acquired keratosis [keratoderma] palmaris et plantaris L85.1 Assessments Encounter Date Diagnosis (ICD Code) Assessment Notes Treatment Notes Treatment Clinical Notes Section Notes 08/23/2023 Tinea unguium (ICD-10 - B35.1) FUNGAL TOENAILS: Discussed various treatment options for fungal toenails including debridement, topical antifungals, oral antifungals, toenail avulsion, or toenail matrixectomy. NAIL DEBRIDEMENT: Nails 1-5 Bilateral were debrided extensively with nail nippers and emery board, reducing length and girth to pink healthy tissue with any subungual debris and necrotic tissue removed 08/23/2023 Pain in right toe(s) (ICD-10 - M79.674) 10/25/2023 Tinea unguium (ICD-10 - B35.1) FUNGAL [...] Pain in right toe(s) (ICD-10 - M79.674) 12/27/2023 Tinea unguium (ICD-10 - B35.1) Nails 1-5 Bilateral were debrided extensively with nail nippers and emery board, reducing length and girth to pink healthy tissue with any subungual debris and necrotic tissue removed 12/27/2023 Pain in right foot (ICD-10 - M79.671) 12/27/2023 Pain in left foot (ICD-10 - M79.672) 10/25/2023 Pain in left toe(s) (ICD-10 - M79.675) 08/23/2023 Pain in left toe(s) (ICD-10 - M79.675) 08/23/2023 Atherosclerosis of [place] arteries of extremities with intermittent claudication, bilateral legs (ICD-10 - I70.213) 10/25/2023 Atherosclerosis of [place] arteries of extremities with intermittent claudication, bilateral legs (ICD-10 - I70.213) 12/27/2023 Atherosclerosis of [place] arteries of extremities with intermittent claudication, bilateral legs (ICD-10 - I70.213) 12/27/2023 Acquired keratosis [keratoderma] palmaris et plantaris (ICD-10 - L85.1) A total of 1 corns or calluses, as described in the note above, were cut and pared utilizing a #15 blade 10/25/2023 Acquired keratosis [keratoderma] palmaris et plantaris (ICD-10 - L85.1) Hyperkeratosis: The skin was prepped with isopropyl alcohol. Using a 15-blade scalpel, the hyperkeratotic skin lesions were sharply debrided down to healthy appearing skin. Plan Of Treatment No Information Insurance Providers Payer Name Payer Address Payer Phone Subscriber Number Group Number Insured Name Patient Relationship to Insured Coverage Start Date Coverage End Date Medicare Part B [facility] [address] [place] [address] [id number] ALEXIA VIDAL Self - patient is the insured [employer] [address] [place] [address] [id number] ALEXIA VIDAL Self - patient is the insured Medical (General) History Medical History History ICD Code acid reflux Cancer (type of cancer) GERD Leg/Feet cramps Respiratory disease Skin Disorder Arthritis skin cancer Heart Disease Back Trouble Radiation therapy hypertension Lung Disease Surgical History Surgery Date(Month/Year) shoulder surgery 06/2022 heart bypass 2002 knee replacement 2005
--- OUTSIDE RECORDS SUMMARY | 2024-07-09 19:06 | XMS_ITS | Encounter Summary ---
Author Organization [facility] Address [address] [facility] [place] [address] Care Team Providers Care Lab Head Name Role Phone Elodia Shoemaker APRN-TORCH STRAIGHTENER Primary Care Provider + Encounter Details Date Type Department Care Team (Late st Contact Info) Description 03/16/2022 Lab Requisition [facility] Care DermPath Lab [address] [facility] [place] [address] Laron Prescott MD [address] [place] [address] Social History Tobacco Use Types [...] Comments DERMATOPATHOLOGY Routine 03/15/2022 12:0 0 AM SUPERVISOR [employer] documented in this encounter Results * DERMATOPATHOLOGY (03/15/2022 12:00 AM SUPER[employer]OR [employer]) Case Report Dermatopathology Report Case: [id number] Authorizing Provider: Laron Prescott MD Collected: 03/15/2022 12:00 AM Ordering Location: [facility] Lab Received: 03/16/2022 11:33 AM Pathologist: Tasia Malone MD Specimen: Skin, right congregational 12:56 PM [facility] Final Diagnosis Specimen A. SKIN, right congregational: SQUAMOUS CELL CARCINOMA IN SITU, PRESENT AT THE BASE OF THE SPECIMEN (D04.39) (see microscopic description and comment) 12:56 PM [employer] DERMATOPATHOLOGY LABORATORY Clinical History R/O BCC 12:56 PM SUPER[employer] DERMATOPATHOLOGY LABORATORY Gross Description Specimen A: Received is one formalin filled container labeled with the patient's name and designated right congregational. The specimen consists of a shave biopsy measuring [id number]. Jar 0. 12:56 PM [employer] DERMATOPATHOLOGY LABORATORY Microscopic Description Specimen A. SKIN, right congregational: The epidermis shows parakeratosis, full thickness disorderly maturation of keratinocytes, mitoses at different levels, and dyskeratotic cells. The lesion extends to the base of the biopsy. COMMENT: An invasive squamous cell carcinoma cannot be ruled out. 12:56 PM [facility] Disclaimer An external and internal positive and negative controls are appropriate for the histochemical, immunohistochemical and immunofluorescence stain(s) in this case (if any), except where stated explicitly. The performance characteristics of the stain(s) cited in this report were developed and its performance characteristic determined by the Dermatopathology Laboratory at [facility], directed by Dr. Samy Gaspar. These tests need not be, and therefore are not, approved by the [place] Food and Drug Administration. The tests are used for clinical purposes. Billing Codes Specimen Charges Stain Charges 78080 1 12:56 PM [employer] DERMATOPATHOLOGY LABORATORY Embedded Images 12:56 PM SUPER[employer] DERMATOPATHOLOGY LABORATORY Pathology/Cytolog y TISSUE SPECIMEN FROM SKIN / Unknown 03/15/2022 03/16/2022 11:33 AM SUPERVISOR [employer] Laron Prescott MD LAB - PATHOLOGY/CYTO LOGY ORDERABLES DERMATOPATHOLOGY LABORATORY [facility] - Department of Dermatology [facility] [address] [place] [address], [address] [phone] documented in this encounter Visit Diagnoses Not on filedocumented in this encounter Care Teams Lab Head Relationship Specialty Start Date End Date Elodia Shoemaker APRN-COY [address] [address] PCP - General 03/16/22 documented as of this encounter
--- OUTSIDE RECORDS SUMMARY | 2024-07-09 19:06 | XMS_ITS | Encounter Summary ---
Author Organization [facility] Address [address] [place] [address] Care Team Providers Care Clicking Machine Operator Name Role Phone Kathya Huerta MD Primary Care Provider [phone] Elodia Shoemaker NP Primary Care Provider [phone] Encounter Details Date Type Department Care Team (Late st Contact Info) Description 11/05/2019 Prep for Procedure [facility] One Day [facility] [place], [place] [address] Ravinder Swan MD [address] [phone] Social History Tobacco Use Types Packs/Day Years [...] (COVID 19) (11/05/2019 1:50 PM CDT) Pathologist [facility] CORONAVIRUS SARS COV 2 PCR (RESP) NOT DETECTED NOT DETECTED 11/06/2019 8:43 PM CDT [facility] Comment: A Not Detected (negative) test result [...] providers and patients using the following websites: https://www.[facility]/home/Covid-19/HCP/NAAT/fact-sheet2 https://www.[facility]/home/Covid-19/Patients/NAAT/ fact-sheet2 This test has been authorized by the FDA under an Emergency Use Authorization (EUA) for use by authorized laboratories. Due to the current public health emergency, [facility] is receiving a high volume of samples [...] about COVID-19 can be found at the [facility] website: www.[facility]/Covid19. Test performed at [facility] [address] [place] [address] Director: YESI FELICIANO DO,MPH NASOPHARYNGEAL SWAB / Unknown 11/05/2019 1:50 PM CDT Ravinder Swan MD MICROBIOLOGY - GENERAL ARTEMIO LONG Final Result [facility] [address] [place] [address], documented in this encounter Visit Diagnoses Diagnosis Dysphagia- Primary Dysphagia, unspecified documented in this encounter Additional Health Concerns Infection Onset Date Last Indicated Resolved Time COVID-19 Rule Out 11/05/2019 11/05/2019 11/06/2019 8:43 PM CDT documented as of this encounter Care Teams Clicking Machine Operator Relationship Specialty Start Date End Date Kathya Huerta MD [address], [place] [address] PCP - General 09/28/13 11/07/19 Elodia Shoemaker NP [address] [place] [address] PCP - General NURSE PRACTITIONER 11/08/19 documented as of this encounter
--- OUTSIDE RECORDS SUMMARY | 2024-07-09 19:06 | XMS_ITS | Data Portability ---
Author Organization [facility] Tweet Category, Main Office Address [address] [place] [address] Assessment No assessment recorded. Plan of Treatment Reminders Order Date Submit Date Provider Last Modified By Organization Details Last Modified Time Details Appointments None recorded. Lab HbA1c (hemoglobin A1c), blood 2023 024 [email or web address] 2 [facility], [address] [place], [address], 4 08:37:45 HbA1c (hemoglobin A1c), [facility] [address] [place], [address], 4 09:15:48 vitamin D, 25-hydroxy, total, serum 2023 024 [email or web address] 2 [facility], [address] [place], [address], 4 08:16:00 vitamin D, 25-hydroxy, total, serum 2023 024 [email or web address] 2 [facility], [address] [place], [address], 4 08:37:47 vitamin B12 + folate, serum or blood 2023 024 [email or web address] 2 [facility], [address] [place], [address], 4 08:37:47 magnesium, serum or plasma 2023 024 [email or web address] 2 [facility], [address] [place], [address], 4 08:37:47 lipid panel, serum 2023 024 [email or web address] 2 [facility], [address] [place], [address], 4 08:37:46 CK (creatine kinase), total, serum 2023 024 [email or web address] 2 [facility], [address] [place], [address], 4 08:37:46 CBC w/ auto diff 2023 024 [email or web address] 2 [facility], [address] [place], [address], 4 08:37:46 PSA, serum or plasma 2023 024 [email or web address] 2 [facility], [address] [place], [address], 4 08:16:00 HbA1c (hemoglobin A1c), blood 2023 024 [email or web address] 2 [facility], [address] [place], [address], 4 08:15:59 TSH, serum or plasma 2023 024 [email or web address] 2 [facility], [address] [place], [address], 4 08:37:46 T4, free, serum 2023 024 [email or web address] 2 [facility], [address] [place], [address], 4 08:37:46 pro BNP (pro B-type natriuretic peptide), serum or plasma 2023 024 [email or web address] 2 [facility], [address] [place], [address], 4 08:37:45 CMP, serum or plasma 2023 024 [email or web address] 2 [facility], [address] [place], [address], 4 08:37:45 Referral otolaryngol ogist referral - Please call patient to schedule an appointment . Thank you. 2023 [email or web address] Alexandro Sandoval MD, [address], [place], [address], 09:03:07 Procedures None recorded. Surgeries None recorded. Imaging None recorded. Medication Orders promethazin e-DM 6.25 mg-15 mg/5 mL oral syrup 2023 [facility], [address] [place] [address], [address], 4 16:42:55 prednisone 20 mg tablet 2023 [facility], [address] [place] [address], [address], 4 16:42:56 alprazolam 1 mg tablet 2023 024 [facility], [facility] [place], [address], 4 16:49:13 Biotene Dry Mouth Oral Rinse mouthwash [address] [facility], [facility] [place], [address], 4 16:00:25 alprazolam 1 mg tablet [address] [facility], [facility] [place], [address], 16:00:26 Patient TargetsNo targets recorded. Patient Instructions Encounter Date Encounter Id Patient Instructions Last Modified By Organization Details Last Modified Time 09/28/2023 [id number] dementia rating scale-2* Not available 09/28/2023 16:01:28 depression screening* [email or web address] Not available 10/12/2023 16:46:41 alcohol misuse* Not availab le 10/12/2023 16:46:41 multi-dimensiona l health assessment questionnaire* Not available 09/28/2023 16:00:28 Personalized a lt Plan and Screening Recommendations Advance Directives - Do you have one? No Advance Directives - Do we have your advance directive on file in your health record? Primary Prevention/Interven tion (prevents or decreases the chance of common diseases from occurring) Smoking Risk: Non Smoker Alcohol Misuse Screening: Negative Weight: Appropriate continue your current weight loss efforts try to lose 5% of your body weight try to lose 10% of your body weight Physical activity: Need more exercise/physical activity decrease sitting time to no more than 5hr/day Nutrition: Good Average Fall Risk (screened today): Low Vaccines Pneumococcal: Ordered Recommended today Recommended today, but you have declined No further needed Influenza: Your next one in the fall of this year Chronic Disease Risks Stroke: Low Risk I have no recommendations Act francisco diagnosis, Continue current treatment plan Heart Attack: Low risk I have no recommendations Act francisco diagnosis, Continue current treatment plan Clogging of the Arteries: Low risk I have no recommendations Act francisco diagnosis, Continue current treatment plan Diabetes: Low Risk Active diagnosis, Continue current treatment plan Secondary Prevention/Interven tion (detects treatable diseases before they may cause symptoms, disability, or ) Prostate Cancer Screening: No digital rectal exam screening necessary Colon Cancer Screening: Colonoscopy No screening necessary Date Screening Last Performed: 2021 Eye Disease Screening: No Eye exam necessary Dementia Risk: Low I have no recommendations Depression Screening: Negative Active diagnosis, Continue current treatment plan Not available 09/28/2023 16:12:59 Reason for Referral Tension Worker Referral patrick Larsen Please call patient to schedule an appointment. Thank you. Referring Physician: Dimitris Burrows, Family Medicine, Encounter Date: 02/13/2024 Results Created Date Observation Date Name Description Value Unit Range Abnormal Flag Note LastModifiedBy Organization Detail LastModifiedTime 01/07/2001/06/2023 T4 FREE free T4 2.33 NG/dL 0.78-2 .19 high Not Available [facility] (Lab) [address] [place], [address], 01/06/2023 20:21:06 01/07/20 23 01/06/2023 TSH thyroid-stim ulating hormone 0.358 uIU/m L 0.465- 4.680 low Not Available [facility] (Lab) [address] [place], [address], 01/06/2023 20:32:11 01/20/20 23 01/18/2023 CT, abdom en + pelvi s, w/ contr ast No observ ation record ed. [address] [address], [place], [address], 01/19/2023 15:45:12 02/18/20 23 02/17/2023 XR, chest , 2 view No observ ation record ed. [address] [facility] [place], [address], 02/18/2023 09:46:32 02/18/20 23 02/17/2023 CT, angio gram, chest + abdom en + pelvi s, w/ contr ast No observ ation record ed. [address] [address], [place], [address], 02/18/2023 09:47:37 02/16/20 24 02/16/2024 CT, head + brain , w/o contr ast No observ ation record ed. [address], [place], [address], 02/17/2024 09:05:36 02/16/20 24 02/16/2024 XR, elbow , 2 view No observ ation record ed. [address], [place], [address], 02/17/2024 09:05:23 02/16/20 24 02/16/2024 XR, wrist , 3 or more view No observ ation record ed. [address], [place], [address], 02/17/2024 09:05:01 02/16/20 24 02/16/2024 XR, chest , 2 view No observ ation record ed. [address], [place], [address], 02/17/2024 09:04:43 Result Notes Documentation Provider Name and Address Organization Details Recorded Time Influenza (a+b) Ag, Immunofluorescence, Unspecified Specimen : flu and covid MARISOL [place] - [place] [employer] [facility] 02/17/2024 09:03:43 Problems Name Problem SNOMED Code Status Onset Date Resolution Date Notes Provider Name and Address Organization Details Recorded Time Lesion of skin of face 17158233386 6 Completed Not Available [facility] 3 08:09:05 Open wound of toe 093194737 Completed Not Available [facility] 3 08:09:06 Bone pain 00345888 Active Not Available [facility] 3 08:09:06 Acoustic neuroma 588232421 Active Not Available [facility] 3 08:09:06 Chronic obstructi ve pulmonary disease 82730760 Active Not Available [facility] 3 08:09:06 Constipat ion 53826660 Active Not Available [facility] 3 08:09:06 Anti-nucl ear factor detected 647835124 Active Not Available [facility] 3 08:09:06 Insomnia 015098769 Active Not Available [facility] 3 08:09:06 Full thickness rotator cuff tear 407859319 Active Not Available [facility] 3 08:09:06 Pain in scrotum 75750812 Completed Not Available [facility] 3 08:09:06 Abdominal pain 04648955 Completed Not Available [facility] 3 08:09:06 Headache disorder 960319188 Completed Not Available [facility] 3 08:09:06 Lacunar infarctio n 501117786 Active Not Available [facility] 3 08:09:06 Pneumonia 533616592 Completed Not Available [facility] 3 08:09:06 Gastroeso phageal reflux disease 740476518 Active Not Available [facility] 3 08:09:06 Muscle weakness 06632235 Completed Not Available [facility] 3 08:09:07 Transient cerebral ischemia 541358840 Active Not Available [facility] 3 08:09:07 Edema 741292450 Active Not Available [facility] 3 08:09:07 Shoulder joint pain 881540523 Active Not Available [facility] 3 08:09:07 Low back pain 514341049 Active Not Available [facility] 3 08:09:07 Pain in calf 296605668 Completed Not Available [facility] 3 08:09:07 Pain in thumb 899623039 Completed Not Available [facility] 3 08:09:07 Injury of tendon of the rotator cuff of shoulder 982186708 Active Not Available [facility] 3 08:09:07 Depressiv e disorder 79008275 Active Not Available [facility] 3 08:09:07 Malignant tumor of lung 046200509 Active Not Available [facility] 3 08:09:07 Malignant tumor of tongue 804965147 Active Not Available [facility] 3 08:09:07 Malignant tumor of larynx 099273223 Active Not Available [facility] 3 08:09:08 Chronic pain syndrome 490947221 Completed Not Available [facility] 3 08:09:08 Hypertens francisco disorder 22192317 Active Not Available [facility] 3 08:09:08 Osteoarth ritis 048432381 Active Not Available [facility] 3 08:09:08 Umbilical hernia 759692385 Active Not Available [facility] 3 08:09:08 Generaliz ed atheroscl erosis 51606271 Active Not Available [facility] 3 08:09:08 Onychomyc osis of toenails 792227346 Completed Not Available [facility] 3 08:09:08 Dysphagia 48115299 Completed Not Available [facility] 3 08:09:08 Hypothyro idism 46929814 Active Not Available [facility] 3 08:09:08 Disorder of rotator cuff 323006473 Active Not Available [facility] 3 08:09:09 Congestiv e heart failure 76658965 Active Not Available [facility] 3 08:09:09 Cervical disc disorder 907728125 Active Not Available [facility] 3 08:09:09 Lytic lesion of bone on X-ray 102466087 Active Not Available [facility] 3 08:09:09 Cramp in lower limb 498963827 Completed Not Available [facility] 3 08:09:09 Shoulder pain 44117453 Active Not Available [facility] 3 08:09:09 Foot pain 36433006 Completed Not Available [facility] 3 08:09:09 Anxiety 91847353 Active Not Available [facility] 3 08:09:10 Hip pain 56916204 Active Not Available [facility] 3 08:09:10 Spermatoc george 08156011 Active Not Available [facility] 3 08:09:10 Hoarse 28998582 Active Not Available [facility] 3 08:09:10 Chronic fatigue syndrome 49564342 Active Not Available [facility] 3 08:09:10 Coronary arteriosc lerosis 94519678 Active Not Available [facility] 3 08:09:10 Hyperlipi demia 39723067 Active Not Available [facility] 3 08:09:10 Pain in wrist 46916147 Active Not Available [facility] 3 08:09:11 Disorder of capillari es 55280803 Completed Not Available [facility] 3 08:09:11 Carotid artery stenosis 75780016 Active Not Available [facility] 3 08:09:11 Otitis media 03500598 Completed Not Available [facility] 3 08:09:11 Muscle pain 09030830 Completed Not Available [facility] 3 08:09:11 Hypersomn ia 65326757 Active Not Available [facility] 3 08:09:11 Palpitati ons 86503216 Completed Not Available [facility] 3 08:09:12 Chronic pain 79523498 Active Not Available [facility] 3 08:09:12 Fatigue 24432860 Active Not Available [facility] 3 08:09:12 Pain in limb 01553637 Completed Not Available [facility] 3 08:09:12 Skin nodule 74079853 Active Not Available [facility] 3 08:09:12 Bilateral cataracts 79496293 Active Not Available [facility] 3 08:09:12 Pain of right shoulder joint 88987989506 742942 Active 2022 Ramon Reeves MD [address], [place], [address] , [employer] [facility] 3 16:21:52 Abnormal gait due to impairmen t of balance 045204690 Active 2022 Ramon Reeves MD [address], [place], [address] , [employer] [facility] 3 16:22:33 Esophagea l dysphagia 06548998 Active 2022 Ramon Reeves MD [address], [place], [address] , [employer] [facility] 3 16:24:16 Cerebrova scular disease 42781832 Active 2022 Ramon Reeves MD [address], [place], [address] , [employer] [facility] 3 16:25:16 Onychomyc osis 741923535 Active 2022 Ramon Reeves MD [address], [place], [address] , [facility] 3 17:06:28 Mixed anxiety and depressiv e disorder 831462415 Active 2022 Ramon Reeves MD [address], [place], [address] , [facility] 3 17:08:19 Rectal hemorrhag e 62003589 Active 2022 Nicci Newton , LEAN LEADER null, [facility] 3 11:41:18 Hemorrhoi ds 94535096 Active 2022 Nicci Newton LEAN LEADER null, [facility] 3 11:41:50 Xerostomi a 10202082 Active 2023 LETY Padilla [address], [place], [address] , [facility] [employer] [facility] 4 15:40:22 Screening for malignant neoplasm of prostate Active 2023 LETY Padilla [address], [place], [address] , [facility] [employer] [facility] 4 15:55:08 At increased risk of nutrition al deficit 933599255 Active 2023 LETY Padilla [address], [place], [address] , [facility] 4 15:55:58 Excessive thirst 44498388 Active 2023 LETY Padilla [address], [place], [address] , [facility] 4 16:45:25 Cough 05022516 Active 2023 LETY Padilla [address], [place], [address] , [facility] [employer] 16:42:01 Vitamin D deficienc y 90862593 Active 2023 LETY Padilla [address] [place] [address], [address] , [facility] [employer] [facility] Tweet Category 4 16:46:56 Notes:Some problems listed i n Document: #[id number] could not be added to this patient's chart. Please review this document and add these problems to the patient's chart manually as needed. Problem Notes None recorded. Procedures Surgical History Date Name Laterality Status Provider Name and Address Organization Details Recorded Time Medicare Wellness CPT Code, subsequent completed Antoinette Hoskins RN [place] [employer] [facility] Tweet Category 09/28/2023 15:13:38 Imaging Results Imaging Date Name Status LastModified by Organiz ation Details LastModified Time 01/18/2023 CT, abdomen + pelvis, w/ contrast completed [email or web address], [address], 01/19/2023 15:45:12 02/17/2023 XR, chest, 2 view completed [address], [address], 02/18/2023 09:46:32 02/17/2023 CT, angiogram, chest + abdomen + pelvis, w/ contrast completed [address], [address], 02/18/2023 09:47:37 02/16/2024 CT, head + brain, w/o contrast completed [address], [address], 02/17/2024 09:05:36 02/16/2024 XR, elbow, 2 view completed [address], [address], 02/17/2024 09:05:23 02/16/2024 XR, wrist, 3 or more view completed [address] [facility] [address], [place], [address], 02/17/2024 09:05:01 02/16/2024 XR, chest, 2 view completed [address] [facility] [address], [place], [address], 02/17/2024 09:04:43 Procedure Notes None recorded. Medical Equipment None Reported. Allergies Allergen ID Allergen Name Allergen Category Reaction Reaction Severity Criticality Documentation Date Start Date Code Code System Note Provider Name and Address Organization Details Recorded Time 89259 terbinafi ne medicatio n other Not available Not available 06/30/2022 01294 RxNorm nerve s, depre ssion diarr hea Not Available [facility] 3 08:13:23 89395 Robaxin medicatio n nausea Not available Not available 06/30/2022 68393 5 RxNorm Not Available [facility] 3 08:13:23 12042 methocarb iona medicatio n Not available Not available Not available 06/30/2022 6845 RxNorm pt says that he doesn 't remem sharon. He belie ves it makes him nause ous Not Available [facility] 3 08:13:23 91171 atorvasta tin medicatio n nausea Not available Not available 06/30/2022 14653 RxNorm Not Available [facility] 3 08:13:23 26458 Zocor medicatio n Not available Not available Not available 06/30/2022 18615 3 RxNorm incre ase CK Not Available [facility] 3 08:13:23 Medications Name Sig Start Date Stop Date Status Note LastModified by Organization Details LastModified Time amoxicillin 500 mg capsule 12/14 completed Not Available Not Available Not Available furosemide 40 mg tablet active Not Available Not Available Not Available fluconazole 100 mg tablet active Not Available Not Available Not Available clotrimazol e 10 mg carmelina active Not Available Not Available Not Available silver sulfadiazin e 1 % topical cream active Not Available Not Available Not Available levothyroxi ne 175 mcg tablet Take 1 tablet by mouth once daily 2023 active Not Available Not Available Not Avai lable promethazin e-DM 6.25 mg-15 mg/5 mL oral syrup Take 5 mL every 4 hours by oral route as needed for 10 days. 2023 active Not Available Not Available Not Avai lable carvedilol 25 mg tablet active Not Available Not Available Not Available nystatin 100,000 unit/mL oral suspension TAKE 5 ML (CC) BY MOUTH 4 TIMES DAILY FOR 10 DAYS 11/03 completed Not Available Not Available Not Available carvedilol 6.25 mg tablet Take 1 tablet twice a day by oral route for 30 days. 02/05 completed Not Available Not Available Not Available prednisone 10 mg tablet TAKE 4 TABLETS BY MOUTH ONCE DAILY FOR 4 DAYS THEN 3 TABS ONCE DAILY FOR 3 DAYS THEN 2 TABS ONCE DAILY FOR 2 DAYS THEN 1 TAB ONCE DAILY 11/03 completed Not Available Not Available Not Available doxycycline hyclate 100 mg capsule TAKE 1 CAPSULE BY MOUTH TWICE DAILY FOR 10 DAYS WITH A FULL GLASS OF WATER AND FOOD 09/27 completed Not Available Not Available Not Available cefuroxime axetil 250 mg tablet 07/15 completed Not Available Not Available Not Available carvedilol 12.5 mg tablet active Not Available Not Available Not Available ketoconazol e 2 % shampoo SHAMPOO TOPICALLY TWICE A WEEK 11/03 completed Not Available Not Available Not Available clindamycin HCl 300 mg capsule 12/14 completed Not Available Not Available Not Available albuterol sulfate 2.5 mg/3 mL (0.083 %) solution for nebulizatio n 0.083 %) solution for nebulizat ion (Inhale 2 mL twice a day by inhalatio n route for 90 days active Not Available Not Available No t Available nitroglycer in 400 mcg/spray translingua l aerosol USE ONE SPRAY UNDER TONGUE NEEDED FOR CHEST PAIN active Not Available Not Available No t Available atorvastati n 10 mg tablet active Not Available Not Available Not Available azithromyci n 250 mg tablet TAKE 2 TABLETS BY MOUTH ON DAY 1, AND THEN TAKE 1 TABLET BY MOUTH ONCE A DAY ON DAY 2 THROUGH DAY 5 09/27 completed Not Available Not Available Not Available alprazolam 1 mg tablet Take 1 tablet by mouth three times daily as needed active Not Available Not Available No t Available ranitidine 300 mg tablet active Not Available Not Available Not Available sumatriptan 100 mg tablet 11/03 completed Not Available Not Available Not Available hydrocodone 5 mg-acetamin ophen 325 mg tablet TAKE 1 TO 2 TABLETS BY MOUTH EVERY 4 TO 6 HOURS NEEDED FOR PAIN 09/27 completed Not Available Not Available Not Available fluconazole 200 mg tablet active Not Available Not Available Not Available prednisone 20 mg tablet Take 2 tabs PO twice daily for 2 days; 1 tab PO twice daily for 5 days; 1/2 tab PO twice daily for 2 days; 1/2 tab PO once for 1 day. TAKE 2ND DOSE EVERYDAY AT NOON-10 DAY COURSE active Not Available Not Available No t Available fluorouraci l 5 % topical cream APPLY CREAM TOPICALLY TO SCCIS ON LEFT EAR TWICE DAILY FOR 6 WEEKS FOLLOWING MUPIROCIN CREAM. active Not Available Not Available No t Available Rocephin 1 gram solution for injection active Not Available Not Available No t Available amlodipine 2.5 mg tablet TAKE 1 TABLET BY MOUTH ONCE DAILY 11/03 completed Not Available Not Available Not Available oxcarbazepi ne 300 mg tablet TAKE ONE TABLET BY MOUTH AT BEDTIME FOR ONE WEEK THEN TAKE ONE TABLET TWICE DAILY THEREAFTE R 11/03 completed Not Available Not Available Not Available phenytoin sodium extended 100 mg capsule TAKE 1 CAPSULE BY MOUTH TWICE DAILY 11/03 completed Not Available Not Available Not Available acetaminoph en 300 mg-codeine 30 mg tablet 12/14 completed Not Available Not Available Not Available sulfamethox azole 800 mg-trimetho prim 160 mg tablet Take 1 tablet twice a day by oral route for 15 days. active Not Available Not Available No t Available hydrocodone 10 mg-acetamin ophen 325 mg tablet TAKE 1 TABLET BY MOUTH 4 TIMES DAILY FOR 30 DAYS 09/27 completed Not Available Not Available Not Available omeprazole 40 mg capsule,del ayed release Take 1 capsule every day by oral route for 30 days. active Not Available Not Available No t Available aspirin 81 mg tablet,arjun yed release Take 1 tablet every day by oral route. 2019 active Not Available Not Available Not Avai lable tramadol 50 mg tablet TAKE 1 TABLET BY MOUTH EVERY 4 HOURS 11/03 completed Not Available Not Available Not Available simvastatin 40 mg tablet TAKE ONE TABLET BY MOUTH AT BEDTIME 12/24 completed Not Available Not Available Not Available carvedilol 3.125 mg tablet TAKE 1 TABLET BY MOUTH TWICE DAILY 11/03 completed Not Available Not Available Not Available lamotrigine 25 mg tablet 02/05 completed Not Available Not Available Not Available isosorbide mononitrate ER 120 mg tablet,exte nded release 24 hr Take 1 tablet every day by oral route for 30 days. 02/05 completed Not Available Not Available Not Available potassium chloride 20 mEq/15 mL oral liquid active Not Available Not Available Not Available levothyroxi ne 75 mcg tablet active Not Available Not Available Not Available fluticasone propionate 0.005 % topical ointment 09/29 completed Not Available Not Available Not Available oxycodone-a cetaminophe n 5 mg-325 mg tablet active Not Available Not Available No t Available isosorbide mononitrate ER 60 mg tablet,exte nded release 24 hr TAKE 1 TABLET BY MOUTH ONCE DAILY 11/03 completed Not Available Not Available Not Available terbinafine HCl 250 mg tablet active Not Available Not Available Not Available methocarbam ol 750 mg tablet 11/14 completed Not Available Not Available Not Available lorazepam 2 mg tablet active Not Available Not Available No t Available baclofen 10 mg tablet TAKE 1/2 (ONE-HALF ) TABLET BY MOUTH THREE TIMES DAILY NEEDED active Not Available Not Available No t Available benzonatate 100 mg capsule TAKE 1 CAPSULE BY MOUTH THREE TIMES DAILY 11/03 completed Not Available Not Available Not Available doxycycline monohydrate 100 mg capsule TAKE 1 CAPSULE BY MOUTH TWICE DAILY FOR 7 DAYS 04/09 completed Not Available Not Available Not Available cephalexin 500 mg capsule Take 1 capsule 3 times a day by oral route. active Not Available Not Available No t Available simvastatin 20 mg tablet TAKE 1 TABLET BY MOUTH ONCE DAILY IN THE EVENING active Not Available Not Available No t Available esomeprazol e magnesium 40 mg capsule,del ayed release TAKE 1 CAPSULE BY MOUTH ONCE DAILY active Not Available Not Available No t Available levothyroxi ne 125 mcg tablet TAKE 1 TABLET BY MOUTH ONCE DAILY 02/13 completed Not Available Not Available Not Available carbamazepi ne 100 mg chewable tablet 10/03 completed Not Available Not Available Not Available levothyroxi ne 150 mcg tablet Take 1 tablet by mouth once daily active Not Available Not Available No t Available nitroglycer in 400 mcg/spray translingua l SPRAY ONE SPRAY UNDER THE TONGUE EVERY FIVE MINUTES NEEDED FOR CHEST PAIN active Not Available Not Available No t Available hydroxyzine HCl 25 mg tablet 09/29 completed Not Available Not Available Not Available lisinopril 5 mg tablet Take 1 tablet by mouth once daily active Not Available Not Available No t Available mupirocin 2 % topical ointment MIX WITH VASELINE AND APPLY TOPICALLY TO THE LEFT OUTER EAR TWICE DAILY FOR 6 WEEKS 09/27 completed Not Available Not Available Not Available furosemide 20 mg tablet Take 1 tablet by oral route for 30 days. active Not Available Not Available No t Available clobetasol 0.05 % topical ointment apply daily active Not Available Not Available No t Available levofloxaci n 500 mg tablet Take 1 tablet every 24 hours by oral route. active Not Available Not Available No t Available zolpidem 10 mg tablet TAKE ONE TABLET BY MOUTH AT BEDTIME 11/03 completed Not Available Not Available Not Available methylpredn isolone 4 mg tablets in a dose pack TAKE BY MOUTH DIRECTED ON INSIDE OF PACKAGE 04/09 completed Not Available Not Available Not Available albuterol sulfate HFA 90 mcg/actuati on aerosol inhaler INHALE 2 PUFFS BY MOUTH EVERY 6 HOURS NEEDED FOR SHORTNESS OF BREATH OR WHEEZING active Not Available Not Available No t Available cefdinir 300 mg capsule active Not Available Not Available Not Available lamotrigine 100 mg tablet 02/05 completed Not Available Not Available Not Available gentamicin 0.1 % topical ointment APPLY OINTMENT WITH VASELINE ON LEFT EAR TWICE DAILY FOR 21 DAYS 09/27 completed Not Available Not Available Not Available naproxen 500 mg tablet TAKE 1 TABLET BY MOUTH TWICE DAILY 02/05 completed Not Available Not Available Not Available Lotemax 0.5 % eye drops,suspe nsion INSTILL 1 DROP INTO AFFECTED EYE(S) 3X DAILY 2014 active Not Available Not Available Not Avai lable diazepam 5 mg tablet active Not Available Not Available No t Available metoclopram faiza 10 mg tablet active Not Available Not Available Not Available amoxicillin 875 mg-potassiu m clavulanate 125 mg tablet TAKE 1 TABLET BY MOUTH EVERY 12 HOURS 09/27 completed Not Available Not Available Not Available oxycodone 5 mg tablet 01/17 completed Not Available Not Available Not Available escitalopra m 20 mg tablet Take 1 tablet by mouth once daily active Not Available Not Available No t Available topiramate 50 mg tablet 02/05 completed Not Available Not Available Not Available Spiriva with HandiHaler 18 mcg and inhalation capsules Inhale 1 capsule every day by inhalatio n route for 90 days. 11/03 completed Not Available Not Available Not Available Constulose 10 gram/15 mL oral solution 11/03 completed Not Available Not Available Not Available ranolazine ER 500 mg tablet,exte nded release,12 hr TAKE 1 TABLET BY MOUTH TWICE DAILY active Not Available Not Available No t Available Symbicort 160 mcg-4.5 mcg/actuati on HFA aerosol inhaler Inhale 2 puffs twice a day by inhalatio n route for 90 days. 11/03 completed Not Available Not Available Not Available Besivance 0.6 % eye drops,suspe nsion Instill 1 drop 3 times a day by ophthalmi c route for 7 days. active Not Available Not Available No t Available Vicodin HP 10 mg-300 mg tablet TK ONE T PO Q SIX H 02/05 completed Not Available Not Available Not Available Linzess 290 mcg capsule 11/03 completed Not Available Not Available Not Available Prolensa 0.07 % eye drops INSTILL 1 DROP TO THE OPERATED EYE BY OPHTHALMI C ROUTE ONCE DAILY 2014 active Not Available Not Available Not Avai lable Pennsaid 20 mg/gram/act uation (2 %) topical soln in metered-dos e pump APPLY TWICE DAILY 11/03 completed Not Available Not Available Not Available Biotene Dry Mouth Oral Rinse mouthwash Take 15 mL 3 times a day by mucous route as needed for 30 days, for dry mouth. 2023 active Not Available Not Available Not Avai lable Trulance 3 mg tablet Take 1 tablet every day by oral route for 90 days. 11/03 completed Not Available Not Available Not Available Trelegy Ellipta 100 mcg-62.5 mcg-25 mcg powder for inhalation INHALE 1 PUFF BY MOUTH ONCE DAILY active Not Available Not Available No t Available baclofen 5 mg tablet active Not Available Not Available No t Available Vitals Date Recorded Body height Body mass index (BMI) Body weight Body temperature Heart rate Oxygen saturation Oxygen saturation in Arterial blood by Pulse oximetry Systolic blood pressure Diastolic blood pressure Provider Name and Address Organization Details Last Updated DateTime 3 170.18 cm 22.6 kg/m2 22260.3 g 98.2 [degF] 62 /min 97 % 97 % 110 mm[Hg] 66 mm[Hg] Nicci hall CMA [facility] [employer] [facility] 3 15:47:16 Date Recorded Body height Body mass index (BMI) Body weight Body temperature Heart rate Oxygen saturation Oxygen saturation in Arterial blood by Pulse oximetry Systolic blood pressure Diastolic blood pressure Provider Name and Address Organization Details Last Updated DateTime 3 170.18 cm 20.7 kg/m2 59934.1 9 g 97.8 [degF] 66 /min 98 % 98 % 102 mm[Hg] 56 mm[Hg] Monalisa Castro MA [facility] [employer] [facility] 3 15:52:32 Date Recorded Body height Body mass index (BMI) Body weight Body temperature Heart rate Oxygen saturation Oxygen saturation in Arterial blood by Pulse oximetry Respiratory rate Systolic blood pressure Diastolic blood pressure Provider Name and Address Organization Details Last Updated DateTime 4 170.18 cm 20.8 kg/m2 13678.7 9 g 98.2 [degF] 58 /min 98 % 98 % 16 /min 116 mm[Hg] 72 mm[Hg] Antoinette Hoskins RN [facility] [employer] [facility] 4 15:21:41 Date Recorded Pain severity - 0-10 verbal numeric rating [Score] - Reported Provider Name and Address Organization Details Last Updated DateTime 09/28/2023 0 Rosy Byrne RN [facility] [employer] [facility] 09/28/2023 15:32:10 Date Recorded Body height Body mass index (BMI) Body weight Body temperature Heart rate Oxygen saturation Oxygen saturation in Arterial blood by Pulse oximetry Systolic blood pressure Diastolic blood pressure Provider Name and Address Organization Details Last Updated DateTime 4 170.18 cm 21.6 kg/m2 93199.7 5 g 98.1 [degF] 55 /min 97 % 97 % 116 mm[Hg] 86 mm[Hg] Antoinette Hoskins RN [facility] [employer] [facility] 4 16:28:24 Social History Question Answer Notes LastModified by Organizat ion Details LastModified Time What Was The Date Of Your Most Recent Tobacco Screening? 09/28/2023 Information not available 09/28/2023 Sex: Unknown Functional Status None recorded. Mental Status None recorded. Family History Nothing Reported. Medical History No medical history recorded. Immunizations Vaccine Type Date Status Note Provider Nam e and Address Organization Details Recorded Time Influenza, split virus, quadrivalent, preservative 1 completed Nicci Newton CMA null, [facility] 01/06/2023 15:47:24 COVID-19, mRNA, LNP-S, PF, 100 mcg/0.5mL dose or 50 mcg/0.25mL dose 1 completed Nicci Newton CMA null, [facility] 01/06/2023 15:47:24 COVID-19, mRNA, LNP-S, PF, 100 mcg/0.5mL dose or 50 mcg/0.25mL dose 1 completed [facility] 15:47:24 Influenza, split virus, quadrivalent, preservative 0 completed [facility]23 15:47:24 Influenza, split virus, quadrivalent, preservative 0 completed [facility]23 15:47:24 Hep B, unspecified formulation 0 completed Not Available [facility] 06/30/2022 08:13:14 Influenza, split virus, trivalent, preservative 5 completed Not Available [facility] 06/30/2022 08:13:14 Pneumococcal Conjugate, unspecified formulation 5 completed Not Available [facility] 06/30/2022 08:13:14 Influenza, high-dose, quadrivalent, PF 0 completed Not Available [facility] 06/30/2022 08:13:14 Influenza, high-dose, trivalent, PF 0 completed Not Available [facility] 06/30/2022 08:13:15 zoster recombinant 0 completed Not Available [facility] 06/30/2022 08:13:15 Hep A, adult 0 completed Not Available [facility] 06/30/2022 08:13:15 Hep B, adult 9 completed Nicci Newton LEAN LEADER null, [facility] [employer] [facility] 01/06/2023 15:47:24 Hep A, adult 9 completed Not Available [facility] 06/30/2022 08:13:15 Influenza, split virus, quadrivalent, PF 6 completed Not Available [facility] 06/30/2022 08:13:15 Influenza, split virus, trivalent, preservative 4 completed Nicci Newton LEAN LEADER null, [facility] 01/06/2023 15:47:24 Influenza, split virus, trivalent, preservative 3 completed Nicci Newton LEAN LEADER null, [facility] 01/06/2023 15:47:24 Influenza, high-dose, trivalent, PF 4 completed LETY Padilla [address] [place] [address] Keli, [facility] [address], [place], [address], [facility] 03/08/2024 10:18:40 Past Encounters Encounter ID Performer Location Encounter Start Date Encounter Closed Date Diagnosis/Indication Diagnosis SNOMED-CT Code Diagnosis ICD10 Code Diagnosis Note [id number] Ramon Reeves MD [facility] [place] [address] [place] [address] 11/03/2022 15:34:05 11/03/2022 16:45:57 Pain of right shoulder joint 1343087217 0733440 M25.511 S/P fracture x 2 Abnormal g ait due to impairment of balance 009344871 R26.89 Hypothyroidism 07586847 E03.9 Will check thyroid fx and decide what dose of euthyrox he needs. Esophageal dysphagia 408 54409 R13.19 Cerebrovas cular disease 66985449 I67.9 [id number] Ramon Reeves MD [facility] [place] [facility] [place] [address] 12/06/2022 16:49:15 12/06/2022 17:11:41 Hypothyroidism 92703377 E03.9 Will check thyroid fx in 1 month Onychomycosis 763609766 B35.1 RTC for nail removal. 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 Continue PT [id number] LETY Padilla [facility] [place] [facility] [place] [address] 09/28/2023 15:04:11 09/28/2023 15:46:56 Adult health examination 989811579 Z00.00 Screening for disorder 495227144 Z13.9 Carotid ar roz stenosis 06933462 I65.29 Xerostomia 89095578 R68. 2 Transient cerebral ischemia 470231248 G45.9 Osteoarthritis 424367210 M19.90 Low back pain 461123466 M54.50 Lacunar infarction 71997 8000 I63.81 Insomnia 668614950 G47.0 0 Hypothyroidism 62610899 E03.9 Hypertensive disorder 38 285036 I10 Gastroesop hageal reflux disease 947243814 K21.9 Esophageal dysphagia 408 83689 R13.19 Cerebrovas cular disease 38117798 I67.9 Congestive heart failure 26993844 I50.9 Hyperlipidemia 02407463 E78.5 Screening for malignant neoplasm of prostate 709233607 Z12.5 At [facility] risk of nutritional deficit 102996380 Z91.89 Anxiety 78152297 F41.9 Excessive thirst 5758248 7 R63.1 polydipsia Long-term current use of drug therapy 466293086 Z79.541 [id number] LETY Padilla [facility] [place] [address] [facility] [place] [address] 02/13/2024 15:58:55 02/13/2024 16:54:06 Administration of influenza vaccine 70006880 Z23 Hoarse 85159310 R49.0 Hypothyroidism 04683668 E03.9 Cough 73320733 R05.9 Anxiety 76260580 F41.9 Health Concerns Section Related Observation LastModified by Organization Detai ls LastModified Time None Recorded Concern Status LastModified by Organization Details LastModified Time None Recorded Advance Directives Directive None Recorded Payers Encounter Date Sequence Insurance Name Policy Number Policy Sebastian Covered Member ID Sebastian Member ID Guarantor Name 01/06/2023 1 [place] Cecilio Searssper [id number] Cecilio Ty Chariton 01/06/2023 2 [employer] (MEDICARE SUPPLEMENT) Cecilio Ty Chariton [id number] Cecilio Ty Chariton 03/16/2023 1 [place] Cecilio Searssper [id number] Cecilio Ty Chariton 03/16/2023 2 [employer] [place] (MEDICARE SUPPLEMENT) Cecilio Ty Chariton [id number] Cecilio Ty Chariton 09/28/2023 1 [place] Cecilio Searssper [id number] Cecilio Ty Chariton 09/28/2023 2 [employer] [place] (MEDICARE SUPPLEMENT) Cecilio Ty Chariton [id number] Cecilio Ty Chariton 02/13/2024 1 [place] Cecilio Bergeron [id number] Cecilio Bergeron 02/13/2024 2 [employer] [place] (MEDICARE SUPPLEMENT) Cecilio Searssper [id number] Cecilio Searssper Notes Date Note Type Note Provider Name and Address Organization Details Recorded Time 01/06/2023 text/html Here today for right shoulder surgery is scheduled for 01/28/23. He had an echo cardiogram and nuclear stress test and is going to have cardiac clearance. No hx of problems with anesthesia.No complaints today.Needs refill of vicodin and xanax and baclofen and nexium. Ramon Reeves MD [address], [address], [place], [address], [facility] 01/07/2023 08:44:08 03/16/2023 text/html Here today for f /u of right shoulder surgery. Is in rehab now and will be going to [facility] after that. He is doing ok.Going to have colonoscopy in 04/23 Still having swallowing problems. No issues today. Ramon Reeves MD [address], [address], [place], [address], [facility] 03/16/2023 20:26:53 02/13/2024 text/html dry mouth phlegm , cough , several months LETY Padilla [address], [place], [address], [facility] 03/08/2024 10:20:55
--- OUTSIDE RECORDS SUMMARY | 2024-07-09 19:06 | XMS_ITS | Encounter Summary ---
Author Organization [facility] Facility Care Team Providers Care Death Surveys Coder Name Role Phone Elodia Shoemaker NP Primary Care Provider [phone] No, Physician Primary Care Provider Dimitris Burrows Primary Care Provider + Encounter Details Date Type Department Care Team (Latest Contact Info) Description 07/07/2016 Orders Only [facility] ProviderSusan MD [address] [place] [address] Social History Tobacco Use Types Packs/Day Years Used Date Smoking Tobacco: Never Assessed Alcohol Use Standard Drinks/Week Comments No 0 (1 standard drink = 0.6 oz pur e alcohol) Sex and Gender Information Value Date Recorded Sex Assigned at Not on file Legal Sex Male 3:06 AM DOOR ASSEMBLER Gender Identity Not on file Sexual Orientation Not on file documented as of this encounter Plan of Treatment Not on file documented as of this encounter Procedures Procedure Name Priority Date/Time Associated Diagnosis Comments SCAN - PATHOLOGY 07/07/2016 12:0 0 AM DOOR ASSEMBLER documented in this encounter Results * SCAN - PATHOLOGY (07/07/2016 12:00 AM DOOR ASSEMBLER) Narrative 07/07/2016 12:00 AM DOOR ASSEMBLER Ordered by an unspecified provider. Historical Provider Final Res ult documented in this encounter Visit Diagnoses Not on filedocumented in this encounter Care Teams Death Surveys Coder Relationship Specialty Start Date End Date Elodia Shoemaker NP PCP - General 07/07/16 01/04/23 No, Physician PCP - General 09/08/23 09/18/23 Dimitris Burrows PA [facility] [place] [address] PCP - General Internal Medicine 09/19/23 documented as of this encounter
--- OUTSIDE RECORDS SUMMARY | 2024-07-09 19:06 | XMS_ITS | Referral Summary ---
Author Organization [facility] Address [address] [facility] [place] [address] Care Team Providers Care Candy Vendor Name Role Phone Elodia Shoemaker TYESHA-CASTABLES WORKER Primary Care Provider + Source Comments [facility],non-owned Affiliates and Associated Physician Practices is amultiple site organization consisting of ambulatory clinics and hospital sitesin [place], [place], [place] and [place]. This disclosure is being madepursuant to the Care Everywhere program and may not contain all information available regarding this patient. Last updated 18.[facility] Allergies Active Allergy Reactions Criticality Noted Date [...] of Treatment Not on file Care Teams Candy Vendor Relationship Specialty Start Date End Date Elodia Shoemaker APRN-COY [address] [address] PCP - General 03/16/22
--- OUTSIDE RECORDS SUMMARY | 2024-07-09 19:06 | XMS_ITS | Continuity of Care Document ---
Author Organization [facility] Address [address] [facility] [address] [place] [address] Phone Care Team Providers Care Gamer Name Role Phone Alberto GONZALEZ, OTR/L, CHT, Arsalan Unavailable Verna vailable Procedures Procedure Date Carrying, Moving And Handling Objects-Cu rrent Carrying, Moving And Handling Objects-Go al Carrying, Moving And Handling Objects-Di scharge Wrist & Thumb Forearm based opponens Dec Advance Directives Directive Yes / No Effective Date File Name No Information Encounters Encounter Description Practice Location Reason(s) For Visit Diagnoses Date Provider Providers Copied on Encounter [facility], [address], [place], [place], [id number], tel:[phone] [place] primary osteoarth of first carpometacarp joint, l handPain in left wristEffusion, left wristStiffness of left hand, not elsewhere classifiedOther lack of coordinationMusc le weakness (generalized)Pre sence of unspecified orthopedic joint implant 8 Alberto Arriaza. [address] [facility], [address], [place], [address], [place]. tel:[phone] Referring Provider: Vick Ott, [address], [place], [address]. tel:[phone] Family History Family Member Type Diagnosis Age At Onset No Information Payers Payer name Insurance type Covered constitution party ID Authoriza tion(s) Medicare [place] MB [id number] [facility] [id number] Social History Type Description Quantity Date Captured Comments Sex Male Smoking Status No Information Chief Complaint And Reason For Visit No Information Reason For Referral Reason For Referral No Information History Of Present Illness Encounter Date Complaint History Of Prese nt Illness No Information Functional Status Date Functional Assessmen t No Information Instructions Date Instruction Additional Infor mation No Information Assessments Type Assessment Date No Information Patient Care Teams Name Effective Dates (start - stop) Status Members No Information
--- OUTSIDE RECORDS SUMMARY | 2024-07-09 19:06 | XMS_ITS | Patient Health Summary ---
Author Organization [facility] Address [address] [facility] [place] [address] Care Team Providers Care Tool Crib Manager Name Role Phone Elodia Shoemaker TYESHA-CORE STICKER Primary Care Provider + Note from [facility],non-owned Affiliates and Associated Physician Practices is amultiple site organization consisting of ambulatory clinics and hospital sitesin [place], [place], [place] and [place]. This disclosure is being madepursuant to the Care Everywhere program and may not contain all information available regarding this patient. Last updated 18.[facility] Allergies * Atorvastatin(Myalgias,Nausea and/or Vomiting,Unknown) -Medium Criticality [...] 04/13/2017) Results * DERMATOPATHOLOGY (06/07/2022 3:33 AM [facility]) Only the most recent of3 resultswithin the time period is included. Case Report Dermatopathology Report Case: [id number] Authorizing Provider: Laron Prescott MD Collected: 06/07/2022 03:33 AM Ordering Location: [facility] DermPath Lab Received: 06/08/2022 01:18 PM Pathologist: Tasia Malone MD Specimen: Skin, left helix 4:36 PM [facility] DERMATOPATHOLOGY [facility]ORAT[facility] Final Diagnosis Specimen A. 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 The specimen consists of a shave biopsy measuring 7x5x3, 3x3x2 mm. Jar 0. 4:36 PM [facility] DERMATOPATHOLOGY [facility]ORATORY Microscopic Description Specimen A. SKIN, left helix: The epidermis shows parakeratosis, full thickness disorderly maturation of keratinocytes, mitoses at different levels, and dyskeratotic cells. There is a column of marked compact hyperkeratosis. Additional deeper sections were obtained and reviewed. 4:36 PM [facility] DERMATOPATHOLOGY [facility]OR[facility] Disclaimer An external and internal positive and negative controls are appropriate for the histochemical, immunohistochemical and immunofluorescence stain(s) in this case (if any), except where stated explicitly. The performance characteristics of the stain(s) cited in this report were developed and its performance characteristic determined by the Dermatopathology Laboratory at [facility], directed by Dr. Samy Gaspar. These tests need not be, and therefore are not, approved by the [place] Food and Drug Administration. The tests are used for clinical purposes. Billing Codes Specimen Charges Stain Charges 98115 1 3 4:36 PM [facility] Embedded Images 3 4:36 PM [facility] Pathology/Cytolo gy TISSUE SPECIMEN FROM SKIN / Unknown 06/07/2022 3:33 AM [facility] 06/08/2022 1:18 PM [facility] Laron Prescott MD LAB - PATHOLOGY/CYTO LOGY ORDERABLES DERMATOPATHOLOGY LABORATORY [facility] - Department of Dermatology [address], [address] [phone] * PAIN MANAGEMENT PROCEDURE TIME (09/16/2020 2:39 [...] titers Nucleosomes, Histones Drug-induced SLE Speckled Sm, TUNNEL KILN REPAIRER, SCL-70, SLE,MCTD,PSS (diffuse form), SS-A/SS-B Sjogrens Nucleolar SCL-70, PM-1/SCL High titers Scleroderma, PM/DM Centromere Centromere PSS (limited form) w/Crest syndrome variable Nuclear Dot Sp100,[id number] Primary Biliary Cirrhosis Nuclear GP210, Primary Biliary Cirrhosis Membrane erlin A,B,C 02/29/2020 1:45 PM CDT 02/29/2020 Narrative Resulting Agency Comment Lab Testing performed at: [email or web address] [address] [id number] Tim Wilson MD LAB - PATHOLOGY/CYTO LOGY ORDERABLES [facility] INSURANCE BILL [address] [place] [address] * C-REACTIVE PROTEIN (02/29/2020 1:45 PM CDT) C-Reactive Protein 2 0 - 10 mg/L [facility] Blood BLOOD SPECIMEN / Unknown 02/29/2020 1:45 PM CDT 02/29/2020 Narrative Resulting Agency Comment Lab Testing performed at: Minka Conner [address] [id number] Tim Wilson MD LAB - CHEMISTRY ARTEMIO LONG Performing Organization Address [facility] Co de Phone Number [facility] INSURANCE BILL [address] [place] [address] * (ABNORMAL) DARIN BLOOD SCREEN W/REFLEX TITER (02/29/2020 1:45 PM CDT) DARIN Positive(A ) [facility] INSURANCE BILL Comment: Negative <1:80 Borderline 1:80 Positive >1:80 Blood BLOOD SPECIMEN / Unknown 02/29/2020 1:45 PM CDT 02/29/2020 Narrative Resulting Agency Comment Lab Testing performed at: Minka Conner [facility] [id number] Tim Wilson MD LAB - CHEMISTRY ARTEMIO LONG Performing Organization Address [facility] Co de Phone Number [facility] INSURANCE BILL [address] [place] [address] * ERYTHROCYTE SEDIMENTATION RATE (02/29/2020 1:45 PM CDT) Erythrocyte Sedimentation Rate Westergren 3 0 - 30 mm/hr [facility] INSURANCE BILL Blood BLOOD SPECIMEN / Unknown 02/29/2020 1:45 PM CDT 02/29/2020 Narrative Resulting Agency Comment [facility]: [facility] [id number] Tim Wilson MD LAB - HEMATOLOGY ORD ERABLES Performing Organization Address [facility]/ZIP Co de Phone Number [facility] INSURANCE BILL [address] [place] [address] * RAD OUTSIDE IMG IMPORT (01/17/2020 12:46 PM CDT) Tim Wilson MD DIAGNOSTIC IMAGING O RDERABLES [facility] RADIOLOGY [address] [address] * MRI IAC AND BRAIN WWO CONT [...] MD LAB - POINT OF CARE ORDERABLES [facility] POCT TESTING [address] [phone] Care Teams Tool Crib Manager Relationship Specialty Start Date End Date Elodia Shoemaker APRN-COY [address] [address] PCP - General 03/16/22
--- OUTSIDE RECORDS SUMMARY | 2024-07-09 19:06 | XMS_ITS ---
Author Organization [facility] Address [address] [place], [place] [id number] Care Team Providers Care Argon Tester Name Role Phone Ramon Adam Unavailable Unavailable NATACHA MISTRY Unavailable [phone] REASON FOR VISIT in hospital Encounters Encounter Location Date Provider Diagnosis [facility] [address] [facility] [address] [place], [place] [phone] 03/20/2024 NATACHA MISTRY Plan Of Treatment No Information Progress Notes * DENNIS BERGERONOB:1950 (73 yo M)Acc No.[id number]:03/20/2024 Patient: ALEXIA JASON Provider: Jamie Mistry DPM :1950 A ge:73 Y S ex:Male Date:03/20/2024 Address:[address] [place], [place] [id number] Subjective: * Chief Complaints: * 1 . In hospital. * Medical History: Objective: * Vitals: Assessment: Plan: * Treatment: * Billing Information: * Visit Code: * Procedure Codes: * Electronic signature of NATACHA MISTRY DPM on 07/09/2024 at 07:06 PM CDT Sign off status: Pending * Provider: Jamie Mistry DPM Date: 05/20/2023 Generated for Printi ng/Faxing/eTransmitting on: 0 07/09/2024 07:06 PM CDT
--- OUTSIDE RECORDS SUMMARY | 2024-07-09 19:06 | XMS_ITS | Clinical Summary ---
Author Organization [facility] Address [address] [place] [address] Care Team Providers Care Windows Server Specialist Name Role Phone Elodia Shoemaker TYESHA-ELECTRICIAN MAINTENANCE Primary Care Provider + Source Comments [facility],non-owned Affiliates and Associated Physician Practices is amultiple site organization consisting of ambulatory clinics and hospital sitesin [place], [place], [place] and [place]. This disclosure is being madepursuant to the Care Everywhere program and may not contain all information available regarding this patient. Last updated 18.[facility] Allergies Active Allergy Reactions Criticality Noted Date [...] age to complete this topic Care Teams Windows Server Specialist Relationship Specialty Start Date End Date Elodia Shoemaker APRN-ELECTRICIAN MAINTENANCE [address] [address] PCP - General 03/16/22
--- OUTSIDE RECORDS SUMMARY | 2024-07-09 19:06 | XMS_ITS | Clinical Summary ---
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 Patient was referred to [facility], he saw Dr. Martinez and Dr. [...] carcinoma in situ. 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 Gender Identity Not on file Sexual Orientation [...] RW:katie 05:21 AM 05:21 AM JONAH [EOD] Ian Vera MD IMG CT PROCEDURES Final Result from Last 3 Months or Most Recently Relevant to Health Maintenance Insurance MEDICARE [facility] MEDICARE [place] MEDICARE [place] [facility] Advance Directives For more information, please contact: [phone] * Full Code (Latest Code Status on File) Date Activated Date Inactivated Comments 10/26/2019 8:41 AM 01/13/2020 12:53 PM Care Teams Dental Ceramist Relationship Specialty Start Date End Date Dimitris Burrows [place] [facility] [place] [address] PCP - General Internal Medicine 09/19/23
--- OUTSIDE RECORDS SUMMARY | 2024-07-09 19:06 | XMS_ITS | Referral Summary ---
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 Patient was referred to [facility], he saw Dr. Martinez and Dr. [...] carcinoma in situ. 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 Gender Identity Not on file Sexual Orientation [...] Recently Relevant to Health Maintenance Insurance MEDICARE [facility] Member Subscriber Plan / Payer ( fective 2017-Present) Name:Cecilio Bergeron Melony Relation to Subscriber:Self Name:Cecilio Bergeron Melony Payer ID:[id number] Group ID:Not on file Type:[employer] Address: [address] [place], [place] [address], [place] [address] [place] [address] MEDICARE [place] [employer] [place] Member Subscriber Plan / Payer (Ef fective 2017-Present) Name:Cecilio Bergeron Relation to Subscriber:Self Name:Cecilio Bergeron Payer ID:[id number] Group ID:Not on file Type:[employer] Address: [address] [place] [address] MEDICARE [place] MEDICARE [employer] [facility] Member Subscriber Plan / Payer (Ef fective 2017-Present) Name:Cecilio Bergeron Relation to Subscriber:Self Name:Cecilio Bergeron Payer ID:[id number] Group ID:Not on file Type:[employer] Address: [facility] [place] [address] Advance Directives For more information, please contact: [phone] * Full Code (Latest Code Status on File) Date Activated Date Inactivated Comments 10/26/2019 8:41 AM 01/13/2020 12:53 PM Care Teams Salt Washer Harvesting Station Relationship Specialty Start Date End Date Dimitris Burrows PA [facility] [place] [address] PCP - General Internal Medicine 09/19/23
--- OUTSIDE RECORDS SUMMARY | 2024-07-09 19:06 | XMS_ITS | Clinical Summary ---
Author Organization [facility] Care Team Providers Care Jewel Bearing Polisher Name Role Phone Unavailable Primary Care Provider [...] 2002 Influenza Immunization (#1) 2024 SARS-COV-2 Immunization (2023-25 season) 2024 Respiratory Syncytial Virus (RSV) Immunization [...]
--- OUTSIDE RECORDS SUMMARY | 2024-07-09 19:06 | XMS_ITS | Clinical Summary ---
Author Organization [facility] Address [facility] [place] [address] Care Team Providers Care Planting Material Remover Name Role Phone Elodia Shoemaker NP Primary Care Provider [phone] Allergies Active Allergy Reactions Criticality Noted Date [...] age to complete this topic Insurance MEDICARE [facility] Care Teams Planting Material Remover Relationship Specialty Start Date End Date Elodia Shoemaker NP [address] [place] [address] PCP - General NURSE PRACTITIONER 11/08/19
--- OUTSIDE RECORDS SUMMARY | 2024-07-09 19:07 | XMS_ITS ---
Author Organization [facility] Address [address] [place], [place] [address] Care Team Providers Care Gis Analyst Developer Name Role Phone Ramon Adam Unavailable Unavailable NATACHA MISTRY Unavailable [phone] REASON FOR VISIT Patient presents for at-risk foot care . The patient has painful toenails and calluses that are causing difficulty with ambulation and shoegear. The onset is gradual Medications Medication SIG (Take, Route, Fr equency, Duration) Notes Start Date End Date Status Simvastatin Active Lexapro Active NexIUM Active Baclofen Active Albuterol Sulfate HFA Active Aspirin 81 Active Xanax Active Vicodin Active Vital Signs Weight 145 lbs 12/27/2023 Weight-kg 65.77 kg 12/27/2023 Encounters Encounter Location Date Provider Diagnosis [facility] [address] [facility] [address] [place], [place] [phone] 12/27/2023 NATACHA MISTRY Tinea unguium B35.1 ; Pain in right foot M79.671 ; Pain in left foot M79.672 ; Atherosclerosis of modoc arteries of extremities with intermittent claudication, bilateral legs I70.213 and Acquired keratosis [keratoderma] palmaris et plantaris L85.1 Assessments Encounter Date Diagnosis (ICD Code) Assessment Notes Treatment Notes Treatment Clinical Notes Section Notes 12/27/2023 Tinea unguium (ICD-10 - B35.1) Nails 1-5 Bilateral were debrided extensively with nail nippers and emery board, reducing length and girth to pink healthy tissue with any subungual debris and necrotic tissue removed 12/27/2023 Pain in right foot (ICD-10 - M79.671) 12/27/2023 Pain in left foot (ICD-10 - M79.672) 12/27/2023 Atherosclerosis of modoc arteries of extremities with intermittent claudication, bilateral legs (ICD-10 - I70.213) 12/27/2023 Acquired keratosis [keratoderma] palmaris et plantaris (ICD-10 - L85.1) A total of 1 corns or calluses, as described in the note above, were cut and pared utilizing a #15 blade Plan Of Treatment Treatment Notes Assessment Notes Tinea unguium Nails 1-5 Bilateral were debrided extensively with nail nippers and emery board, reducing length and girth to pink healthy tissue with any subungual debris and necrotic tissue removed Acquired keratosis [keratode rma] palmaris et plantaris A total of 1 corns or calluses, as described in the note above, were cut and pared utilizing a #15 blade Next Appt Details Follow Up: 10 - 12 weeks, Re ason: At-Risk Foot care, sooner if problems develop. Progress Notes * LIZDENNIS ELLISOB:1950 (73 yo M)Acc No.[id number]:12/27/2023 Patient: ALEXIA JASON Provider: Jamie Mistry DPM :1950 A ge:73 Y S ex:Male Date:12/27/2023 Address:[address] [place], [place] [phone] Subjective: * Chief Complaints: * 1 . Patient presents for at-risk foot care . The patient has painful toenails and calluses that are causing difficulty with ambulation and shoegear. The onset [...] a daily aspirin., Date last seen by Dr. Burrows was August 2023 ., Initialtommy HERNANDEZ. * Medical History: A joseph reflux, Cancer (type of cancer), GERD, Leg/Feet cramps, Respiratory disease, Skin Disorder, Arthritis, Skin cancer, Heart Disease, Back Trouble, Radiation therapy, Hypertension, Lung Disease. * Surgical History: s [place] surgery 06/2022, heart bypass 2002, knee replacement 2005. * Medications: T aking Albuterol Sulfate HFA , Taking Aspirin 81 , Taking Xanax , Taking Vicodin , Taking Simvastatin , Taking Lexapro , Taking NexIUM , Taking Baclofen Objective: * Vitals: W t:145lbs, Wt-k.77 kg. * Examination: P hysical Examination: General appearance: A lert, pleasant, well-nourished and in no acute distress. D ermatologic: Skin findings: S kin is thin, atrophic and lacking pedal hair. Hypertrophic / hyperkeratotic lesion: d istal tip of the left 2nd digit. Nail pathology: N ails 1, 2, 3, 4, and 5 bilateral are elongated, thick, discolored, and dystrophic with subungual debris. They are painful to palpation. ? V ascular: Dorsalis pedis pulse: 1 /4 b ilateral. Posterior tibial pulse: 0 /4 bilateral. Capillary refill: g reater than 3 seconds. Edema: N o edema bilateral. N eurologic: Gross sensation G rossly intact to light touch. There is negative Tinel's sign. M usculoskeletal: Muscle Strength M uscle strength is 5/5 in regards to dorsiflexion, plantarflexion, inversion, and eversion in bilateral lower extremities. ? Assessment: * Assessment: 1. T inea unguium - B35.1 (Primary) 2 . P ain in right foot - M79.671 3 . P ain in left foot - M79.672 4 . A therosclerosis of modoc arteries of extremities with intermittent claudication, bilateral legs - I70.213 5 . A cquired keratosis [keratoderma] palmaris et plantaris - L85.1 Plan: * Treatment: 2. A cquired keratosis [keratoderma] palmaris et plantaris Notes: A total of 1 corns or calluses, as described in the note above, were cut and pared utilizing a #15 blade * Procedure Codes: 1 1055 TRIM SKIN LESION, Modifiers: Q8 , 33783 DEBRIDE NAIL, 6 OR MORE, Modifiers: 59 , Q8 * Follow Up: 1 0 - 12 weeks (Reason: At-Risk Foot care, sooner if problems develop.) * Billing Information: * Visit Code: * Procedure Codes: 46594 TRIM SKIN LESION. Modifiers: Q8 66206 DEBRIDE NAIL, 6 OR MORE. Modifiers: 59, Q8 * Sign off status: Completed true * Provider: Jamie Mistry DPM Date: 0 12/27/2023 Generated for Kelle cochran/Jorge/Volodymyr on: 0 07/09/2024 07:06 PM CDT History and Physical Notes * [...] a daily aspirin., Date last seen by Dr. Burrows was August 2023 ., Initials JR Examination Category Sub-Category Detail Notes Category Not es Dermatologic Skin findings: Skin is thin, at rophic and lacking pedal hair Nail pathology: Nails 1, 2, 3, 4, an d 5 bilateral are elongated, thick, discolored, and dystrophic with subungual debris. They are painful to palpation Hypertrophic / hyperkeratotic lesion: di stal tip of the left 2nd digit Neurologic Gross sensation Grossly intact t o light touch. There is negative Tinel's sign Vascular Dorsalis pedis pulse: 1/4 bilateral Edema: No edema bilateral Capillary refill: greater than 3 secon ds Posterior tibial pulse: 0/4 bilateral Physical Examination General appearance: Alert, pleasant, well-nourished and in no acute distress Musculoskeletal Muscle Strength Muscle strength is 5/5 in regards to dorsiflexion, plantarflexion, inversion, and eversion in bilateral lower extremities
[2024-07-09 19:23] VITALS: BP 119/64; PULSE 64; RESP 18; O2SAT 100
== END 2024-07-09 18:40 ==
PROVIDERS: Emergency Provider Student in an Organized Health Care Education/Training Program
DX: Z43.1 Encounter for attention to gastrostomy (principal); Z20.822 Contact with and (suspected) exposure to COVID-19; J44.9 Chronic obstructive pulmonary disease, unspecified; I25.10 Atherosclerotic heart disease of native coronary artery without angina pectoris; I10 Essential (primary) hypertension; E03.9 Hypothyroidism, unspecified; E78.00 Pure hypercholesterolemia, unspecified; K21.9 Gastro-esophageal reflux disease without esophagitis; G62.9 Polyneuropathy, unspecified; F17.210 Nicotine dependence, cigarettes, uncomplicated; Z98.61 Coronary angioplasty status; Z95.1 Presence of aortocoronary bypass graft; Z85.850 Personal history of malignant neoplasm of thyroid; Z85.828 Personal history of other malignant neoplasm of skin; Z86.0101 Personal history of adenomatous and serrated colon polyps; Z85.118 Personal history of other malignant neoplasm of bronchus and lung; Z90.2 Acquired absence of lung [part of]; Z90.49 Acquired absence of other specified parts of digestive tract; Z96.1 Presence of intraocular lens; Z98.49 Cataract extraction status, unspecified eye
CPT/HCPCS: 43762; 87637; 99283

== ENCOUNTER 2024-07-11 01:31 | Emergency (ER) | payer MEDICARE, OTHER, SELFPAY ==
--- NOTE | ~2024-07-11 | XR_ITS ---
Supine and upright views of the abdomen Clinical history: G-tube placement Findings: Percutaneous gastrostomy tube overlies the stomach, with contrast opacifying the gastric bernabe men and duodenum. No abnormal extravasation of contrast evident. Bowel gas pattern is nonspecific. No evidence for obstruction or free air. No abnormal mass lesion or calcification is seen. Osseous stru ctures are intact. Impression: Percutaneous gastrostomy tube in satisfactory position. Reviewed, dictated and finalized at location . Impression: Percutaneous gastrostomy tube in satisfactory position.
[2024-07-11 01:32] VITALS: BP 110/72; PULSE 69; RESP 16; TEMP 36.8; O2SAT 94
--- OUTSIDE RECORDS SUMMARY | 2024-07-11 01:44 | XMS_ITS | Encounter Summary ---
Author Organization [facility] Address [address] [place] [address] Care Team Providers Care Shoe Folder Name Role Phone Elodia Shoemaker APRN-MANUFACTURING TEACHER Primary Care Provider + Encounter Details Date Type Department Care Team (Late st Contact Info) Description 03/16/2022 Lab Requisition [facility] [address] [place] [address] Laron Prescott MD [address] [place] [address] Social History Tobacco Use Types [...] Comments DERMATOPATHOLOGY Routine 03/15/2022 12:0 0 AM CAN CONVEYOR FEEDER documented in this encounter Results * DERMATOPATHOLOGY (03/15/2022 12:00 AM CAN CONVEYOR FEEDER) Case Report Dermatopathology Report Case: [id number] Authorizing Provider: Laron Prescott MD Collected: 03/15/2022 12:00 AM Ordering Location: [facility] Lab Received: 03/16/2022 11:33 AM Pathologist: Tasia Malone MD Specimen: Skin, right jehovah's witness 12:56 PM [facility] DERMATOPATHOLOGY LABORATORY Final Diagnosis Specimen A. SKIN, right jehovah's witness: SQUAMOUS CELL CARCINOMA IN SITU, PRESENT AT THE BASE OF THE SPECIMEN (D04.39) (see microscopic description and comment) 12:56 PM CAN CONVEYOR FEEDER DERMATOPATHOLOGY LABORATORY Clinical History R/O BCC 12:56 PM CAN CONVEYOR FEEDER DERMATOPATHOLOGY LABORATORY Gross Description Specimen A: Received is one formalin filled container labeled with the patient's name and designated right jehovah's witness. The specimen consists of a shave biopsy measuring [id number]. Jar 0. 12:56 PM CAN CONVEYOR FEEDER DERMATOPATHOLOGY LABORATORY Microscopic Description Specimen A. SKIN, right jehovah's witness: The epidermis shows parakeratosis, full thickness disorderly maturation of keratinocytes, mitoses at different levels, and dyskeratotic cells. The lesion extends to the base of the biopsy. COMMENT: An invasive squamous cell carcinoma cannot be ruled out. 12:56 PM [facility] DERMATOPATHOLOGY LABORATORY Disclaimer An external and internal positive and negative controls are appropriate for the histochemical, immunohistochemical and immunofluorescence stain(s) in this case (if any), except where stated explicitly. The performance characteristics of the stain(s) cited in this report were developed and its performance characteristic determined by the Dermatopathology Laboratory at [facility], directed by Dr. Samy Gaspar. These tests need not be, and therefore are not, approved by the [place] Food and Drug Administration. The tests are used for clinical purposes. Billing Codes Specimen Charges Stain Charges 40775 1 12:56 PM CAN CONVEYOR FEEDER DERMATOPATHOLOGY LABORATORY Embedded Images 12:56 PM CAN CONVEYOR FEEDER DERMATOPATHOLOGY LABORATORY Pathology/Cytolog y TISSUE SPECIMEN FROM SKIN / Unknown 03/15/2022 03/16/2022 11:33 AM CAN CONVEYOR FEEDER Laron Prescott MD LAB - PATHOLOGY/CYTO LOGY ORDERABLES DERMATOPATHOLOGY LABORATORY [facility] - Department of Dermatology [facility] [address] [place] [address], [address] [phone] documented in this encounter Visit Diagnoses Not on filedocumented in this encounter Care Teams Shoe Folder Relationship Specialty Start Date End Date Elodia Shoemaker APRN-COY [address] [address] PCP - General 03/16/22 documented as of this encounter
--- OUTSIDE RECORDS SUMMARY | 2024-07-11 01:44 | XMS_ITS | Clinical Summary ---
Author Organization [facility] Address [address] [place] [address] Phone Care Team Providers Care Forest Landscape Ecology Professor Name Role Phone Elodia Shoemaker Primary Care Provider [phone] Allergies Active Allergy Reactions Criticality Noted Date [...] tablet Take 125 mcg by mouth daily hydrogen plant operations manager. 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 Gender Identity Not on file Sexual Orientation Not on file Last Filed Vital Signs Vital Sign Reading Time Taken Comments Blood Pressure 130/70 01/08/2019 1:00 PM CDT Pulse 85 01/08/2019 1:00 PM CDT Temperature - - Respiratory Rate - - Oxygen Saturation 94% 05/11/2017 11:23 AM ELECTROMECHANICAL INSPECTOR Inhaled Oxygen Concentration - - Weight [...] 12/14/2025 Insurance MEDICARE PART A AND B [place] [facility] RX [employer] RX Member Subscriber Plan / Payer (Ef fective for All Dates) Name:Cecilio Bergeron Relation to Subscriber:Self Name:Cecilio Bergeron Payer ID:Not on file Group ID:[id number] Type:RX Medicare Part D Address: [place], [place] RX [employer] Express MEDICARE PART A AND B [facility] [place] [address] Care Teams Forest Landscape Ecology Professor Relationship Specialty Start Date End Date Elodia Shoemaker ANP [address] [address] PCP - General NURSE PRACTITIONER 01/28/17
--- OUTSIDE RECORDS SUMMARY | 2024-07-11 01:44 | XMS_ITS | Clinical Summary ---
Author Organization [facility] Address [facility] [place] [address] Care Team Providers Care Advanced Manager Name Role Phone Elodia Shoemaker NP Primary Care Provider [phone] Allergies Active Allergy Reactions Criticality Noted Date [...] age to complete this topic Insurance MEDICARE [facility] Care Teams Advanced Manager Relationship Specialty Start Date End Date Elodia Shoemaker NP [address] [place] [address] PCP - General NURSE PRACTITIONER 11/08/19
--- OUTSIDE RECORDS SUMMARY | 2024-07-11 01:44 | XMS_ITS | Clinical Summary ---
Author Organization [facility] Address [address] [facility] [place] [address] Care Team Providers Care Back Winder Name Role Phone Elodia Shoemaker TYESHA-GASOLINE PUMP MECHANIC Primary Care Provider + Source Comments [facility],non-owned Affiliates and Associated Physician Practices is amultiple site organization consisting of ambulatory clinics and hospital sitesin [place], [place], [place] and [place]. This disclosure is being madepursuant to the Care Everywhere program and may not contain all information available regarding this patient. Last updated 18.[facility] Allergies Active Allergy Reactions Criticality Noted Date [...] age to complete this topic Care Teams Back Winder Relationship Specialty Start Date End Date Elodia Shoemaker APRN-GASOLINE PUMP MECHANIC [address] [address] PCP - General 03/16/22
--- OUTSIDE RECORDS SUMMARY | 2024-07-11 01:44 | XMS_ITS | Data Portability ---
Author Organization [facility], Main Office Address [address] [place] [address] Assessment No assessment recorded. Plan of Treatment Reminders Order Date Submit Date Provider Last Modified By Organization Details Last Modified Time Details Appointments None recorded. Lab HbA1c (hemoglobin A1c), blood 2023 024 [email or web address] 2 [facility], [address] [place], [address], 4 08:37:45 HbA1c (hemoglobin A1c), blood 2023 [facility]24 [facility], [address] [place], [address], 4 09:15:48 vitamin D, 25-hydroxy, total, serum 2023 024 [email or web address] 2 [facility], [address] [place], [address], 4 08:16:00 vitamin D, 25-hydroxy, total, serum 2023 024 [email or web address] 2 [facility], [address] [place], [address], 4 08:37:47 vitamin B12 + folate, serum or blood 2023 024 [email or web address] 2 [facility], [address] [place], [address], 4 08:37:47 magnesium, serum or plasma 2023 024 [email or web address] 2 [facility], [address] [place], [address], 4 08:37:47 lipid panel, serum 2023 024 [email or web address] 2 [facility], [address] [place], [address], 4 08:37:46 CK (creatine kinase), total, serum 2023 024 [email or web address] 2 [facility], [address] [place], [address], 4 08:37:46 CBC w/ auto diff 2023 024 [email or web address] 2 [facility], [address] [place], [address], 4 08:37:46 PSA, serum or plasma 2023 024 [email or web address] 2 [facility], [address] [place], [address], 4 08:16:00 HbA1c (hemoglobin A1c), blood 2023 024 [email or web address] 2 [facility], [address] [place], [address], 4 08:15:59 TSH, serum or plasma 2023 024 [email or web address] 2 [facility], [address] [place], [address], 4 08:37:46 T4, free, serum 2023 024 [email or web address] 2 [facility], [address] [place], [address], 4 08:37:46 pro BNP (pro B-type natriuretic peptide), serum or plasma 2023 024 [email or web address] 2 [facility], [address] [place], [address], 4 08:37:45 CMP, serum or plasma 2023 024 [email or web address] 2 [facility], [address] [place], [address], 4 08:37:45 Referral otolaryngol ogist referral - Please call patient to schedule an appointment . Thank you. 2023 [email or web address] Alexandro Sandoval MD, [address], [place], [address], 09:03:07 Procedures None recorded. Surgeries None recorded. Imaging None recorded. Medication Orders promethazin e-DM 6.25 mg-15 mg/5 mL oral syrup 2023 [facility], [address] [place] [address], [address], 4 16:42:55 prednisone 20 mg tablet 2023 [facility], [address] [place] [address], [address], 4 16:42:56 alprazolam 1 mg tablet 2023 024 [facility], [facility] [place], [address], 4 16:49:13 Biotene Dry Mouth Oral Rinse mouthwash [address] [facility], [facility] [place], [address], 4 16:00:25 alprazolam 1 mg tablet [address] [facility], [facility] [place], [address], 16:00:26 Patient TargetsNo targets recorded. Patient Instructions Encounter Date Encounter Id Patient Instructions Last Modified By Organization Details Last Modified Time 09/28/2023 [id number] dementia rating scale-2* Not available 09/28/2023 16:01:28 depression screening* [email or web address] Not available 10/12/2023 16:46:41 alcohol misuse* [email or web address] Not availab le 10/12/2023 16:46:41 multi-dimensiona l [...] Not available 09/28/2023 16:12:59 Reason for Referral Php [employer] Web Developer Referral patrick Larsen Please call patient to schedule an appointment. Thank you. Referring Physician: Dimitris Burrows, Family Medicine, Encounter Date: 02/13/2024 Results Created Date Observation Date Name Description Value Unit Range Abnormal Flag Note LastModifiedBy Organization Detail LastModifiedTime 01/07/2001/06/2023 T4 FREE free T4 2.33 NG/dL 0.78-2 .19 high Not Available [facility] (Lab) [address] [place], [address], 01/06/2023 20:21:06 01/07/20 23 01/06/2023 TSH thyroid-stim ulating hormone 0.358 uIU/m L 0.465- 4.680 low Not Available [facility] (Lab) [address] [place], [address], 01/06/2023 20:32:11 01/20/20 23 01/18/2023 CT, abdom en + pelvi s, w/ contr ast No observ ation record ed. [address] [address], [place], [address], 01/19/2023 15:45:12 02/18/20 23 02/17/2023 XR, chest , 2 view No observ ation record ed. [address] [facility] [place], [address], 02/18/2023 09:46:32 02/18/20 23 02/17/2023 CT, angio gram, chest + abdom en + pelvi s, w/ contr ast No observ ation record ed. [address] [address], [place], [address], 02/18/2023 09:47:37 02/16/20 24 02/16/2024 CT, head + brain , w/o contr ast No observ ation record ed. [address], [place], [address], 02/17/2024 09:05:36 02/16/20 24 02/16/2024 XR, elbow , 2 view No observ ation record ed. [address], [place], [address], 02/17/2024 09:05:23 02/16/20 24 02/16/2024 XR, wrist , 3 or more view No observ ation record ed. [address], [place], [address], 02/17/2024 09:05:01 02/16/20 24 02/16/2024 XR, chest , 2 view No observ ation record ed. [address], [place], [address], 02/17/2024 09:04:43 Result Notes Documentation Provider Name and Address Organization Details Recorded Time Influenza (a+b) Ag, Immunofluorescence, Unspecified Specimen : flu and covid MARISOL [place] - Kris [employer] [facility] 02/17/2024 09:03:43 Problems Name Problem SNOMED Code Status Onset Date Resolution Date Notes Provider Name and Address Organization Details Recorded Time Lesion of skin of face 15950024337 6 Completed Not Available [facility] 3 08:09:05 Open wound of toe 885833018 Completed Not Available [facility] 3 08:09:06 Bone pain 64477378 Active Not Available [facility] 3 08:09:06 Acoustic neuroma 426742978 Active Not Available [facility] 3 08:09:06 Chronic obstructi ve pulmonary disease 82757676 Active Not Available [facility] 3 08:09:06 Constipat ion 72615865 Active Not Available [facility] 3 08:09:06 Anti-nucl ear factor detected 369062369 Active Not Available [facility] 3 08:09:06 Insomnia 943163980 Active Not Available [facility] 3 08:09:06 Full thickness rotator cuff tear 970193490 Active Not Available [facility] 3 08:09:06 Pain in scrotum 18508077 Completed Not Available [facility] 3 08:09:06 Abdominal pain 11416582 Completed Not Available [facility] 3 08:09:06 Headache disorder 628715852 Completed Not Available [facility] 3 08:09:06 Lacunar infarctio n 639642921 Active Not Available [facility] 3 08:09:06 Pneumonia 516511552 Completed Not Available [facility] 3 08:09:06 Gastroeso phageal reflux disease 504829364 Active Not Available [facility] 3 08:09:06 Muscle weakness 84045418 Completed Not Available [facility] 3 08:09:07 Transient cerebral ischemia 959765923 Active Not Available [facility] 3 08:09:07 Edema 440971165 Active Not Available [facility] 3 08:09:07 Shoulder joint pain 471676804 Active Not Available [facility] 3 08:09:07 Low back pain 911214887 Active Not Available [facility] 3 08:09:07 Pain in calf 269419235 Completed Not Available [facility] 3 08:09:07 Pain in thumb 023466897 Completed Not Available [facility] 3 08:09:07 Injury of tendon of the rotator cuff of shoulder 795975094 Active Not Available [facility] 3 08:09:07 Depressiv e disorder 02479299 Active Not Available [facility] 3 08:09:07 Malignant tumor of lung 395350639 Active Not Available [facility] 3 08:09:07 Malignant tumor of tongue 712524925 Active Not Available [facility] 3 08:09:07 Malignant tumor of larynx 768000390 Active Not Available [facility] 3 08:09:08 Chronic pain syndrome 043313506 Completed Not Available [facility] 3 08:09:08 Hypertens francisco disorder 77670499 Active Not Available [facility] 3 08:09:08 Osteoarth ritis 515513925 Active Not Available [facility] 3 08:09:08 Umbilical hernia 941252535 Active Not Available [facility] 3 08:09:08 Generaliz ed atheroscl erosis 45793853 Active Not Available [facility] 3 08:09:08 Onychomyc osis of toenails 480857929 Completed Not Available [facility] 3 08:09:08 Dysphagia 27930237 Completed Not Available [facility] 3 08:09:08 Hypothyro idism 14318708 Active Not Available [facility] 3 08:09:08 Disorder of rotator cuff 887914772 Active Not Available [facility] 3 08:09:09 Congestiv e heart failure 80919796 Active Not Available [facility] 3 08:09:09 Cervical disc disorder 111990661 Active Not Available [facility] 3 08:09:09 Lytic lesion of bone on X-ray 518191804 Active Not Available [facility] 3 08:09:09 Cramp in lower limb 286792900 Completed Not Available [facility] 3 08:09:09 Shoulder pain 67285800 Active Not Available [facility] 3 08:09:09 Foot pain 72688700 Completed Not Available [facility] 3 08:09:09 Anxiety 89876823 Active Not Available [facility] 3 08:09:10 Hip pain 91240503 Active Not Available [facility] 3 08:09:10 Spermatoc george 09832754 Active Not Available [facility] 3 08:09:10 Hoarse 70680307 Active Not Available [facility] 3 08:09:10 Chronic fatigue syndrome 53401692 Active Not Available [facility] 3 08:09:10 Coronary arteriosc lerosis 74408307 Active Not Available [facility] 3 08:09:10 Hyperlipi demia 10145069 Active Not Available [facility] 3 08:09:10 Pain in wrist 60299468 Active Not Available [facility] 3 08:09:11 Disorder of capillari es 06180383 Completed Not Available [facility] 3 08:09:11 Carotid artery stenosis 58708646 Active Not Available [facility] 3 08:09:11 Otitis media 49795990 Completed Not Available [facility] 3 08:09:11 Muscle pain 29984785 Completed Not Available [facility] 3 08:09:11 Hypersomn ia 31015064 Active Not Available [facility] 3 08:09:11 Palpitati ons 58022662 Completed Not Available [facility] 3 08:09:12 Chronic pain 33047654 Active Not Available [facility] 3 08:09:12 Fatigue 07295820 Active Not Available [facility] 3 08:09:12 Pain in limb 09396021 Completed Not Available [facility] 3 08:09:12 Skin nodule 60736771 Active Not Available [facility] 3 08:09:12 Bilateral cataracts 33645590 Active Not Available [facility] 3 08:09:12 Pain of right shoulder joint 58290611753 250600 Active 2022 Ramon Reeves MD [address], [place], [address] , [employer] [facility] 3 16:21:52 Abnormal gait due to impairmen t of balance 404112374 Active 2022 Ramon Reeves MD [address], [place], [address] , [employer] [facility] 3 16:22:33 Esophagea l dysphagia 46411311 Active 2022 Ramon Reeves MD [address], [place], [address] , [employer] [facility] 3 16:24:16 Cerebrova scular disease 10079888 Active 2022 Ramon Reeves MD [address], [place], [address] , [employer] [facility] 3 16:25:16 Onychomyc osis 914376973 Active 2022 Ramon Reeves MD [address], [place], [address] , [facility] 3 17:06:28 Mixed anxiety and depressiv e disorder 374589547 Active 2022 Ramon Reeves MD [address], [place], [address] , [facility] 3 17:08:19 Rectal hemorrhag e 93076773 Active 2022 Nicci Newton , [employer] OPERATOR null, [facility] 3 11:41:18 Hemorrhoi ds 86913639 Active 2022 Nicci Newton [employer] null, [facility] 3 11:41:50 Xerostomi a 90167740 Active 2023 LETY Padilla [address], [place], [address] , [facility] [employer] [facility] 4 15:40:22 Screening for malignant neoplasm of prostate Active 2023 LETY Padilla [address], [place], [address] , [facility] [employer] [facility] 4 15:55:08 At increased risk of nutrition al deficit 048060106 Active 2023 LETY Padilla [address], [place], [address] , [facility] 4 15:55:58 Excessive thirst 77810118 Active 2023 LETY Padilla [address], [place], [address] , [facility] 4 16:45:25 Cough 56020000 Active 2023 LETY Padilla [address], [place], [address] , [facility] [employer] [facility] 16:42:01 Vitamin D deficienc y 97176792 Active 2023 LETY Padilla [address] [place] [address], [address] , [facility] [employer] [facility] [employer] 4 16:46:56 Notes:Some problems listed i n Document: #[id number] could not be added to this patient's chart. Please review this document and add these problems to the patient's chart manually as needed. Problem Notes None recorded. Procedures Surgical History Date Name Laterality Status Provider Name and Address Organization Details Recorded Time Medicare Wellness CPT Code, subsequent completed Antoinette Hoskins RN [place] [employer] [facility] 09/28/2023 15:13:38 Imaging Results Imaging Date Name Status LastModified by Organiz ation Details LastModified Time 01/18/2023 CT, abdomen + pelvis, w/ contrast completed [email or web address], [address], 01/19/2023 15:45:12 02/17/2023 XR, chest, 2 view completed [address], [address], 02/18/2023 09:46:32 02/17/2023 CT, angiogram, chest + abdomen + pelvis, w/ contrast completed [address], [address], 02/18/2023 09:47:37 02/16/2024 CT, head + brain, w/o contrast completed [address], [address], 02/17/2024 09:05:36 02/16/2024 XR, elbow, 2 view completed [address], [address], 02/17/2024 09:05:23 02/16/2024 XR, wrist, 3 or more view completed [address] [facility] [address], [place], [address], 02/17/2024 09:05:01 02/16/2024 XR, chest, 2 view [address] [facility] [address], [place], [address], 02/17/2024 09:04:43 Procedure Notes None recorded. Medical Equipment None Reported. Allergies Allergen ID Allergen Name Allergen Category Reaction Reaction Severity Criticality Documentation Date Start Date Code Code System Note Provider Name and Address Organization Details Recorded Time 95878 terbinafi ne medicatio n other Not available Not available 06/30/2022 95584 RxNorm nerve s, depre ssion diarr hea Not Available [facility] 3 08:13:23 39559 Robaxin medicatio n nausea Not available Not available 06/30/2022 67503 5 RxNorm Not Available [facility] 3 08:13:23 81991 methocarb iona medicatio n Not available Not available Not available 06/30/2022 6845 RxNorm pt says that he doesn 't remem sharon. He belie ves it makes him nause ous Not Available [facility] 3 08:13:23 14622 atorvasta tin medicatio n nausea Not available Not available 06/30/2022 62980 RxNorm Not Available [facility] 3 08:13:23 43848 Zocor medicatio n Not available Not available Not available 06/30/2022 26218 3 RxNorm incre ase CK Not Available [facility] 3 08:13:23 Medications Name Sig Start Date [...] Updated DateTime 3 170.18 cm 22.6 kg/m2 15057.3 g 98.2 [degF] 62 /min 97 % 97 % 110 mm[Hg] 66 mm[Hg] Nicci hall CMA [facility] 3 15:47:16 Date Recorded Body height Body mass index (BMI) Body weight Body temperature Heart rate Oxygen saturation Oxygen saturation in Arterial blood by Pulse oximetry Systolic blood pressure Diastolic blood pressure Provider Name and Address Organization Details Last Updated DateTime 3 170.18 cm 20.7 kg/m2 57235.1 9 g 97.8 [degF] 66 /min 98 % 98 % 102 mm[Hg] 56 mm[Hg] Monalisa Castro MA [facility] 3 15:52:32 Date Recorded Body height Body mass index (BMI) Body weight Body temperature Heart rate Oxygen saturation Oxygen saturation in Arterial blood by Pulse oximetry Respiratory rate Systolic blood pressure Diastolic blood pressure Provider Name and Address Organization Details Last Updated DateTime 4 170.18 cm 20.8 kg/m2 47095.7 9 g 98.2 [degF] 58 /min 98 % 98 % 16 /min 116 mm[Hg] 72 mm[Hg] Antoinette Hoskins RN [facility] 4 15:21:41 Date Recorded Pain severity - 0-10 verbal numeric rating [Score] - Reported Provider Name and Address Organization Details Last Updated DateTime 09/28/2023 0 Rosy Byrne RN [facility] 09/28/2023 15:32:10 Date Recorded Body height Body mass index (BMI) Body weight Body temperature Heart rate Oxygen saturation Oxygen saturation in Arterial blood by Pulse oximetry Systolic blood pressure Diastolic blood pressure Provider Name and Address Organization Details Last Updated DateTime 4 170.18 cm 21.6 kg/m2 83532.7 5 g 98.1 [degF] 55 /min 97 % 97 % 116 mm[Hg] 86 mm[Hg] Antoinette Hoskins RN [facility] 4 16:28:24 Social History Question Answer Notes [...] preservative 1 completed Nicci Newton CMA null, [facility] 01/06/2023 15:47:24 COVID-19, mRNA, LNP-S, PF, 100 mcg/0.5mL dose or 50 mcg/0.25mL dose 1 completed Nicci Newton CMA null, [facility] 01/06/2023 15:47:24 COVID-19, mRNA, LNP-S, PF, 100 mcg/0.5mL dose or 50 mcg/0.25mL dose 1 completed [facility] 15:47:24 Influenza, split virus, quadrivalent, preservative 0 completed [facility] 01/06/2023 15:47:24 Influenza, split virus, quadrivalent, preservative 0 completed [facility] 01/06/2023 15:47:24 Hep B, unspecified formulation 0 completed Not Available [facility] 06/30/2022 08:13:14 Influenza, split virus, trivalent, preservative 5 completed Not Available [facility] 06/30/2022 08:13:14 Pneumococcal Conjugate, unspecified formulation 5 completed Not Available [facility] 06/30/2022 08:13:14 Influenza, high-dose, quadrivalent, PF 0 completed Not Available [facility] 06/30/2022 08:13:14 Influenza, high-dose, trivalent, PF 0 completed Not Available [facility] 06/30/2022 08:13:15 zoster recombinant 0 completed Not Available [facility] 06/30/2022 08:13:15 Hep A, adult 0 completed Not Available [facility] 06/30/2022 08:13:15 Hep B, adult 9 completed Nicci Newton [employer] null, [facility] 01/06/2023 15:47:24 Hep A, adult 9 completed Not Available [facility] 06/30/2022 08:13:15 Influenza, split virus, quadrivalent, PF 6 completed Not Available [facility] 06/30/2022 08:13:15 Influenza, split virus, trivalent, preservative 4 completed Nicci Newton [employer] OPER[employer] null, [facility] 01/06/2023 15:47:24 Influenza, split virus, trivalent, preservative 3 completed Nicci Newton [employer] OPERATOR null, [facility] 01/06/2023 15:47:24 Influenza, high-dose, trivalent, PF 4 completed LETY Padilla [address] [place] [address] Keli, [facility] [address], [place], [address], [facility] [employer] [facility] 03/08/2024 10:18:40 Past Encounters Encounter ID Performer Location Encounter Start Date Encounter Closed Date Diagnosis/Indication Diagnosis SNOMED-CT Code Diagnosis ICD10 Code Diagnosis Note [id number] Ramon Reeves MD [facility] [address]in [address] [place] [address] 11/03/2022 15:34:05 11/03/2022 16:45:57 Pain of right shoulder joint 5133841215 1883963 M25.511 S/P fracture x 2 Abnormal g ait due to impairment of balance 979255452 R26.89 Hypothyroidism 47034334 E03.9 Will check thyroid fx and decide what dose of euthyrox he needs. Esophageal dysphagia 408 45917 R13.19 Cerebrovas cular disease 99311382 I67.9 [id number] Ramon Reeves MD [facility] [address] [facility] [place] [address] 12/06/2022 16:49:15 12/06/2022 17:11:41 Hypothyroidism 82605366 E03.9 Will check thyroid fx in 1 month Onychomycosis 290652704 B35.1 RTC for nail removal. 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.8 [id number] Ramon Reeves MD [facility] [place] [address] [place] [address] [place] [address] 01/06/2023 15:40:29 01/06/2023 16:43:55 Pre-surgery evaluation 433405814 Z01.818 Cleared for surgery pending clearance by [facility] shoulder joint 2975428914 8399582 M25.511 S/P fracture x 2 [id number] Ramon Reeves MD [facility] Or[place] [address]ers [facility] [place] [address] 03/16/2023 15:34:43 03/16/2023 16:03:31 History of operative procedure on shoulder 474160647 Z98.890 Doing well. Continue PT [id number] LETY Padilla [facility] Orin sanders [facility] [place] [address] 09/28/2023 15:04:11 09/28/2023 15:46:56 Adult health examination 217007420 Z00.00 Screening for disorder 602061698 Z13.9 Carotid ar roz stenosis 97058911 I65.29 Xerostomia 86749993 R68. 2 Transient cerebral ischemia 750961336 G45.9 Osteoarthritis 961270339 M19.90 Low back pain 696790195 M54.50 Lacunar infarction 77648 8000 I63.81 Insomnia 082092417 G47.0 0 Hypothyroidism 00994748 E03.9 Hypertensive disorder 38 938623 I10 Gastroesop hageal reflux disease 761810310 K21.9 Esophageal dysphagia 408 00097 R13.19 Cerebrovas cular disease 44315102 I67.9 Congestive heart failure 41152850 I50.9 Hyperlipidemia 81563237 E78.5 Screening for malignant neoplasm of prostate [id number] Z12.5 At [facility] risk of nutritional deficit [id number] Z91.89 Anxiety 91815333 F41.9 Excessive thirst 8340068 7 R63.1 polydipsia Long-term current use of drug therapy [id number] Z79.477 [id number] LETY Padilla [facility] Orin sanders [address] [facility] [place] [address] 02/13/2024 15:58:55 02/13/2024 16:54:06 Administration of influenza vaccine [id number] Z23 Hoarse [id number] R49.0 Hypothyroidism 78257606 E03.9 Cough 81839596 R05.9 Anxiety 51781732 F41.9 Health Concerns Section Related Observation LastModified by Organization Detai ls LastModified Time None Recorded Concern Status LastModified by Organization Details LastModified Time None Recorded Advance Directives Directive None Recorded Payers Encounter Date Sequence Insurance Name Policy Number Policy Sebastian Covered Member ID Sebastian Member ID Guarantor Name 01/06/2023 1 [place] Cecilio Searssper [id number] Cecilio Ty Jennings 01/06/2023 2 [employer] (MEDICARE SUPPLEMENT) Cecilio Ty Jennings [id number] Cecilio Ty Jennings 03/16/2023 1 [place] Cecilio Searssper [id number] Cecilio Ty Jennings 03/16/2023 2 [employer] [place] (MEDICARE SUPPLEMENT) Cecilio Ty Jennings [id number] Cecilio Ty Jennings 09/28/2023 1 [place] Cecilio Searssper [id number] Cecilio Ty Jennings 09/28/2023 2 [employer] [place] (MEDICARE SUPPLEMENT) Cecilio Ty Jennings [id number] Cecilio Ty Jennings 02/13/2024 1 [place] Cecilio Bergeron [id number] Cecilio Bergeron 02/13/2024 2 [employer] [place] (MEDICARE SUPPLEMENT) Cecilio Searssper [id number] Cecilio Searssper Notes Date Note Type Note [...] baclofen and nexium. Ramon Reeves MD [address] [employer] [place], [address], [employer] 01/07/2023 08:44:08 03/16/2023 text/html Here today for f /u of right shoulder surgery. Is in rehab now and will be going to [facility] after that. He is doing ok.Going to have colonoscopy in 04/23 Still having swallowing problems. No issues today. Ramon Reeves MD [address], [address], [place], [address], [employer] 03/16/2023 20:26:53 02/13/2024 text/html dry mouth phlegm , cough , several months LETY Padilla [address], [place], [address], [facility] 03/08/2024 10:20:55
--- OUTSIDE RECORDS SUMMARY | 2024-07-11 01:44 | XMS_ITS | Referral Summary ---
Author Organization [facility] Address [address] [place] [address] Care Team Providers Care Account Contact Associate Name Role Phone Elodia Shoemaker TYESHA-[employer] Primary Care Provider + Source Comments [facility],non-owned Affiliates and Associated Physician Practices is amultiple site organization consisting of ambulatory clinics and hospital sitesin [place], [place], [place] and [place]. This disclosure is being madepursuant to the Care Everywhere program and may not contain all information available regarding this patient. Last updated 18.[facility] Allergies Active Allergy Reactions Criticality Noted Date [...] of Treatment Not on file Care Teams Account Contact Associate Relationship Specialty Start Date End Date Elodia Shoemaker APRN-COY [address] [address] PCP - General 03/16/22
--- OUTSIDE RECORDS SUMMARY | 2024-07-11 01:44 | XMS_ITS | Data Portability ---
Author Organization [facility], Main Office Address [address] [place] [address] Care Team Providers Care Microbiology Director Name Role Phone GCP [facility] FAX OTHER GUSTAVO GONZALEZ Primary Care [...] his hospitalization nor ordered on discharge to [facility] [email or web address] Not available 03/08/2024 02:35:56 03/06/2024 03/06/2024 Start 1.5 L flui d restriction. Labs (CBC, BMP, CRP) on 03/08. Taper O2 to keep sat between 90-92%. Not available 03/08/2024 09:05:38 03/07/2024 03/07/2024 sending back to [facility] - called the patient's brother, Linwood, to discuss plan/need for timely w/u which is not available here. He is agreeable to transfer back to the hospital. Called [facility] and discussed case with Dr. Payal [...] of the patient/family. Not available 03/05/2024 07:56:51 03/04/[id number] I spent {{ 52#}} minutes providing care to the patient today. More than 50% of that time was spent in discussing the expected course of the disease, discussing prognosis, coordinating care and counseling of the patient/family. [email or web address] Not available 03/08/2024 02:45:18 03/06/[id number] I spent {{ 36#}} minutes providing care [...] 023 open [facility] internal [facility] [place] [facility] 02/23/2024 23:08:50 021 repair of right inguinal hernia [facility] [place] [facility] 02/23/2024 22:59:16 019 repair of inguinal hernia [facility] [place] [facility] 02/23/2024 23:02:47 016 extraction of cataract completed [facility] [place] [facility] 02/23/2024 23:09:50 015 completion pneumonectomy completed [facility] 02/23/2024 23:06:06 007 open repair of [facility] hernia [facility] [place] [facility] 02/23/2024 23:07:09 006 arthroscopy of knee with medial meniscus repair [facility] [place] [facility] 02/23/2024 23:03:44 003 CABG [facility] [place] [facility] 02/23/2024 23:07:36 [facility] [place] [facility] 02/23/2024 22:58:25 decompression of bilateral median nerves [facility] [place] [facility] 02/23/2024 22:59:28 coronary angioplasty [facility] [place] [facility] 02/23/2024 22:59:44 hemorrhoidectomy [facility] [place] [facility] 02/23/2024 23:01:47 cholecystectomy [facility] [place] [facility] 02/23/2024 23:08:07 Imaging Results None recorded. Procedure Notes None recorded. Medical Equipment None Reported. Allergies Allergen ID Allergen Name Allergen Category Reaction Reaction Severity Criticality Documentation Date Start Date Code Code System Note Provider Name and Address Organization Details Recorded Time 68993 atorvasta tin medicatio n Not available Not available Not available 02/24/2024 99148 RxNorm Not Available Not Available Not Available 35947 methocarb iona medicatio n Not available Not available Not available 02/24/2024 6845 RxNorm Not Available Not Available Not Available 30000 terbinafi ne medicatio n Not available Not available Not available 02/24/2024 95551 RxNorm Not Available Not Available Not Available [...] Available nitroglycer in 400 mcg/spray translingua l [place] 1 spray by transling ual route as [...] 100 mm[Hg] 51 mm[Hg] [place] [address] [place], [address] [place] [address] [facility] 4 08:56:24 Date Recorded Body height Heart [...] L/min 22 /min 97.8 [degF] 19.8 kg/m2 25141.7 5 g 122 mm[Hg] 69 mm[Hg] [place] [address] [place], [address], [place] [facility] 4 16:24:15 Date Recorded Body height Body mass index (BMI) Body weight Heart rate Oxygen saturation Oxygen saturation in Arterial blood by Pulse oximetry Inhaled oxygen flow rate Respiratory rate Body temperature Systolic blood pressure Diastolic blood pressure Provider Name and Address Organization Details Last Updated DateTime 4 177.8 cm 19.8 kg/m2 88361.7 5 g 64 /min 98 % 98 % 2 L/min 18 /min 97.9 [degF] 95 mm[Hg] 51 mm[Hg] [place] [address] [place], [address], [place] [facility] 4 04:14:00 Date [...] % 99 % 4 L/min 19.8 kg/m2 59526.7 5 g 98 mm[Hg] 51 mm[Hg] Shikha Gan, [place] [address] [place], [address], [facility] 4 09:59:08 Date Recorded Heart rate Oxygen saturation Oxygen saturation in Arterial blood by Pulse oximetry Inhaled oxygen flow rate Respiratory rate Body temperature Systolic blood pressure Diastolic blood pressure Provider Name and Address Organization Details Last Updated DateTime 4 96 /min 92 % 92 % 3 L/min 22 /min 97.8 [degF] 82 mm[Hg] 55 mm[Hg] [place] [address] [place], [address], [facility] 4 02:49:17 Social History Question Answer Notes LastModified by Organizat ion Details LastModified Time Tobacco Smoking Status Current Every Day Smoker Bra[place], [facility] 02/23/2024 23:12:45 What Is [...] Coronary Artery Disease (CAD) Y Hyperlipidemia Y Hypothyroidism Y Fall Y COPD Y Cancer -- Skin Y Cancer -- Thyroid Y Fracture Y GERD / Reflux Y Neuropathy Y Cancer -- Lung Y Hypertension Y Past Encounters Encounter ID Performer Location Encounter Start Date Encounter Closed Date Diagnosis/Indication Diagnosis SNOMED-CT Code Diagnosis ICD10 Code Diagnosis Note [id number] Shikha Gan NP [address] [address] 02/24/2024 12:08:49 03/01/2024 13:49:19 Tobacco user 148083313 Z72.0 Continue to encourage cessation upon discharge. Fall W19.XXXD mechanical with head strike, no LOC, with 18 hours on ground.Fal l precaution s in place.Cont inue therapies. Rhabdomyolysis 996912586 M62.82 SEE ABOVE...Re solved. Candidiasi s of the esophagus 31106078 B37.81 Hgb dropped from 12.8 to 7.8 [...] with GI as OP. Polyp of colon 70914311 K63.5 x 1 from cecum, biopsy tubular adenoma.F/ U with GI as OP. Erosive gastritis 497981 2337 044894 K29.70 SEE ABOVE... Gastro-eso phageal reflux disease with esophagitis 356880776 K21.00 SEE ABOVE... Pressure i njury of sacral region of back 243074233 L89.159 SWM to eval & treat. Continue offloading and wound care. Hypertensive disorder 38 485239 I10 Per history. Not on medication s at present.Co ntinue to trend blood pressures, monitor lytes and renal function, and add meds as clinically indicated. Hyperlipidemia 39309741 E78.5 Per history. Continue Simvastati n.F/U with cards as OP. Coronary arteriosclerosis 92929992 I25.10 s/p CABG.Madisyn nue baby ASA (for now), Ranexa, statin and PRN Nitro.F/U with cards as OP. Abdominal aortic aneurysm 301171840 I71.40 Imaging noted AAA 4.7 cm.F/U as OP for further evaluation /treatment options. Hypothyroidism 73925221 E03.9 Per history but pt is not on treatment. Has hx of thyroid cancer so possible this has resolved. Chronic ob structive pulmonary disease 87545473 J44.9 Stable at present. Continue Trelegy and PRN Duonebs. Chronic hy poxemic respiratory failure 604548208 J96.11 Stable. Wears 2L NC as OP.Current ly without concerns. Continue COPD regimen as above. Dysphagia 83630891 R13.1 0 MBS while inpatient read pharyngea l dysphagia with small amount of transient laryngeal penetratio n without aspiration with thin liquids. He is presently on a regular diet with minced/pavan st meat and thin liquids.Me dications are crushed in pudding, except his Ranexa, with which he struggles. ST following here. Monitor closely. Chronic esophagitis 4096 63168 K20.90 SEE ABOVE... Idiopathic peripheral neuropathy 85445404 G60.9 SEE ABOVE... Osteoarthritis 706596873 M19.90 Stable. Monitor for continued need for PRN Baclofen. History of malignant neoplasm of thyroid 431093686 Z85.850 Details unclear. History of malignant neoplasm of lung 512002217 Z85.110 Details unclear. s/p RUL partial lobectomy. Pneumonia 951367353 J18. 9 LLL PNA S/P treatment while inpatient. Respirator y status appears to be at baseline. Monitor closely. Retention of urine 12541 4002 R33.9 Cause/work -up unclear. Arguelles was placed which remains.Mo nitor for ability to attempt voiding trial. Consider checking UA if was not done while inpatient. Anemia 483288707 D64.9 SEE ABOVE... Hyponatremia 95881119 E8 7.1 Continue supportive treatment at present and monitor. Hypokalemia 64840676 E87 .6 K 3.3. Add KCl 20 meq daily. This may need to be changed to powder/liq uid if pt cannot swallow. Generalize d anxiety disorder 12020522 F41.1 Stable. Continue Escitalopr am and PRN Xanax. [id number] Shikha Gan NP [place] [address] [place] [address] 02/27/2024 14:15:06 03/02/2024 13:43:43 Fall W19.XXXD Mechanical with head strike, no LOC, with 18 hours on ground.Fal l precaution s in place. Despite this, fell again overnight with bilateral elbow abrasions. Continue dressings as ordered. Monitor for infection. Continue therapies. Abrasion o f skin of elbow 369902191 S50.311D S50.312D SEE ABOVE... Rhabdomyolysis 238355483 M62.82 SEE ABOVE...Re solved. Pneumonia 701077221 J18. 9 LLL PNA S/P treatment while inpatient. Respirator y status appears to be at baseline. Monitor closely. Candidiasi s of the esophagus 41441076 B37.81 Hgb dropped from 12.8 to 7.8 [...] (03/04).F/U with GI as OP. Erosive gastritis 333841 5834 905070 K29.70 SEE ABOVE... Chronic esophagitis 4096 34731 K20.90 SEE ABOVE... Gastro-eso phageal reflux disease with esophagitis 241635200 K21.00 SEE ABOVE... Anemia 486136062 D64.9 SEE ABOVE... Hypokalemia 16185423 E87 .6 Improved. Continue supplement and trend level.This may need to be changed to powder/liq uid if pt cannot swallow. Hyponatremia 64547662 E8 7.1 Add NaCl TID.Repeat labs on 02/28.May need fluid restrictio n. Dysphagia 13005653 R13.1 0 MBS while inpatient read pharyngea l dysphagia with small amount of transient laryngeal penetratio n without aspiration with thin liquids. He is presently on a regular diet with minced/pavan st meat and thin liquids.Me dications are crushed in pudding, except his Ranexa, with which he struggles. ST following here. Monitor closely. Polyp of colon 85763174 K63.5 x 1 from cecum, biopsy tubular adenoma.F/ U with GI as OP. Retention of urine 89569 4002 R33.9 Cause/work -up unclear. Arguelles was placed which remains.Mo nitor for ability to attempt voiding trial. Consider checking UA if was not done while inpatient. Pressure i njury of sacral region of back 039453046 L89.159 SWM to eval & treat. Continue offloading and wound care. Hypertensive disorder 38 770585 I10 Per history. Not on medication s at present.Co ntinue to trend blood pressures, monitor lytes and renal function, and add meds as clinically indicated. Hyperlipidemia 95326778 E78.5 Per history. Continue Simvastati n.F/U with cards as OP. Coronary arteriosclerosis 06684297 I25.10 s/p CABG.Madisyn nue baby ASA (for now), Ranexa, statin and PRN Nitro.F/U with cards as OP. Abdominal aortic aneurysm 978105978 I71.40 Imaging noted AAA 4.7 cm.F/U as OP for further evaluation /treatment options. Hypothyroidism 70691997 E03.9 Per history but pt is not on treatment. Has hx of thyroid cancer so possible this has resolved. Chronic ob structive pulmonary disease 99363084 J44.9 Stable at present. Continue Trelegy and PRN Duonebs. Chronic hy poxemic respiratory failure 190138360 J96.11 Stable. Wears 2L NC as OP.Current ly without concerns. Continue COPD regimen as above. Tobacco user 281415346 Z 72.0 Continue to encourage cessation upon discharge. Generalize d anxiety disorder 04041506 F41.1 Stable. Continue Escitalopr am and PRN Xanax. Osteoarthritis 938299463 M19.90 Stable. Monitor for continued need for PRN Baclofen. Idiopathic peripheral neuropathy 62185382 G60.9 SEE ABOVE... History of malignant neoplasm of thyroid 936576271 Z85.850 Details unclear. History of malignant neoplasm of lung 610266010 Z85.110 Details unclear. s/p RUL partial lobectomy. [id number] Edita Contreras, DO [place] [address] [place] [address] 02/28/2024 14:33:39 03/12/2024 15:12:28 Fall W19.XXXD Mechanical with head strike, no LOC, with 18 hours on ground.Fal l precaution s in place. Despite this, fell again overnight with bilateral elbow abrasions. Continue dressings as ordered. Monitor for infection. Continue therapies. Abrasion o f skin of elbow 295448200 S50.311D S50.312D SEE ABOVE... Hyponatremia 54229762 E8 7.1 continue NaCl TID.Repeat labs on 02/28.May need fluid restrictio n. Pneumonia 867000435 J18. 9 LLL PNA S/P treatment while inpatient. Respirator y status appears to be at baseline. Monitor closely. Candidiasi s of the esophagus 62061194 B37.81 Hgb dropped from 12.8 to 7.8 [...] (03/04).F/U with GI as OP. Erosive gastritis 948287 6067 268412 K29.70 SEE ABOVE... Chronic esophagitis 4096 00896 K20.90 SEE ABOVE... Gastro-eso phageal reflux disease with esophagitis 766587152 K21.00 SEE ABOVE... Anemia 431543591 D64.9 SEE ABOVE... Hypokalemia 42786933 E87 .6 Improved. Continue supplement and trend level.This may need to be changed to powder/liq uid if pt cannot swallow. Dysphagia 34767139 R13.1 0 MBS while inpatient read pharyngea l dysphagia with small amount of transient laryngeal penetratio n without aspiration with thin liquids. He is presently on a regular diet with minced/pavan st meat and thin liquids.Me dications are crushed in pudding, except his Ranexa, with which he struggles. ST following here. Monitor closely. Polyp of colon 16500491 K63.5 x 1 from cecum, biopsy tubular adenoma.F/ U with GI as OP. Retention of urine 48459 4002 R33.9 Cause/work -up unclear. Arguelles was placed which remains.vo iding trial in am, check UA due to leukocytos is Pressure i njury of sacral region of back 124069301 L89.159 SWM to eval & treat. Continue offloading and wound care. Hypertensive disorder 38 454684 I10 Per history. Not on medication s at presentblo od pressures have been low at times - improved with pushing fluidscont inue to trend blood pressures Hyperlipidemia 31976188 E78.5 Per history. Continue Simvastati n.F/U with cards as OP. Coronary arteriosclerosis 15357999 I25.10 s/p CABG.Madisyn nue baby ASA (for now), Ranexa, statin and PRN Nitro.F/U with cards as OP. Abdominal aortic aneurysm 125606494 I71.40 Imaging noted AAA 4.7 cm.F/U as OP for further evaluation /treatment options. Hypothyroidism 37369316 E03.9 Per history but pt is not on treatment. consider checking thyroid studies in the setting of hyponatrem ia - inpatient records are limited so not sure if these labs have recently been done Chronic ob structive pulmonary disease 87836813 J44.9 Stable at present. Continue Trelegy and PRN Duonebs. Chronic hy poxemic respiratory failure 507649401 J96.11 Stable. Wears 2L NC as OP.Current ly without concerns. Continue COPD regimen as above. Tobacco user 175625301 Z 72.0 Continue to encourage cessation upon discharge. Generalize d anxiety disorder 68907511 F41.1 Stable. Continue Escitalopr am and PRN Xanax. Osteoarthritis 859670697 M19.90 Stable. Monitor for continued need for PRN Baclofen. Idiopathic peripheral neuropathy 15784098 G60.9 SEE ABOVE... History of malignant neoplasm of thyroid 274248996 Z85.850 Details unclear. History of malignant neoplasm of lung 075979014 Z85.110 Details unclear. s/p RUL partial lobectomy. Rhabdomyolysis 772264494 M62.82 SEE ABOVE...Re solved. [id number] Shikha Gan, [place] [address] [place] [address] 03/01/2024 09:57:44 03/12/2024 15:28:08 Fall 8732119 W19.XXXD Mechanical with head strike, no LOC, with 18 hours on ground.Fal l precaution s in place. Despite this, fell again overnight with bilateral elbow abrasions. Continue dressings as ordered. Monitor for infection. Continue therapies. Abrasion o f skin of elbow 579046473 S50.311D S50.312D SEE ABOVE... Hyponatremia 27503600 E8 7.1 Worsening despite addition of NaCl TID.Send to ER for evaluation .May need dose reduction of Escitalopr am if hyponatrem ia otherwise is not responsive . Pneumonia 061251742 J18. 9 LLL PNA S/P treatment while inpatient. Respirator y status appears to be at baseline. Monitor closely. Candidiasi s of the esophagus 80045600 B37.81 Hgb dropped from 12.8 to 7.8 [...] (03/04).F/U with GI as OP. Erosive gastritis 422144 9187 282971 K29.70 SEE ABOVE... Chronic esophagitis 4096 45226 K20.90 SEE ABOVE... Gastro-eso phageal reflux disease with esophagitis 921629274 K21.00 SEE ABOVE... Anemia 554180006 D64.9 SEE ABOVE... Hypokalemia 91840951 E87 .6 Improved. Continue supplement and trend level.This may need to be changed to powder/liq uid if pt cannot swallow. Dysphagia 58464626 R13.1 0 MBS while inpatient read pharyngea l dysphagia with small amount of transient laryngeal penetratio n without aspiration with thin liquids. He is presently on a regular diet with minced/pavan st meat and thin liquids.Me dications are crushed in pudding, except his Ranexa, with which he struggles. ST following here. Monitor closely. Polyp of colon 02280962 K63.5 x 1 from cecum, biopsy tubular adenoma.F/ U with GI as OP. Retention of urine 07482 4002 R33.9 Cause/work -up unclear. Arguelles was placed, removed on 02/28.Staf f notes he has been voiding without concerns.U A on 02/28 was normal, did not meet criteria to reflex to cx. Pressure i njury of sacral region of back 693277236 L89.159 SWM to eval & treat. Continue offloading and wound care. Hypertensive disorder 38 516176 I10 Per history. Not on medication s at presentBlo od pressures have been low at times - improved with pushing fluids.Con tinue to trend blood pressures, monitor lytes and renal function, and add meds as clinically indicated. Hyperlipidemia 70237532 E78.5 Per history. Continue Simvastati n.F/U with cards as OP. Coronary arteriosclerosis 46674690 I25.10 s/p CABG.Have stopped baby ASA due to gastritis/ esophagiti s & anemia.Con tinue Ranexa, statin, and PRN Nitro.F/U with cards as OP. Abdominal aortic aneurysm 424892697 I71.40 Imaging noted AAA 4.7 cm.F/U as OP for further evaluation /treatment options. Hypothyroidism 98168182 E03.9 Per history but pt is not on treatment. Consider checking thyroid studies in the setting of hyponatrem ia. Inpatient records are limited. Chronic ob structive pulmonary disease 08454916 J44.9 Stable at present. Continue Trelegy and PRN Duonebs. Chronic hy poxemic respiratory failure 009843906 J96.11 Stable. Wears 2L NC as OP.Current ly without concerns. Continue COPD regimen as above. Tobacco user 212378678 Z 72.0 Continue to encourage cessation upon discharge. Generalize d anxiety disorder 25125640 F41.1 Stable. Continue Escitalopr am and PRN Xanax.May need dose reduction of Escitalopr am if hyponatrem ia otherwise is not responsive . Osteoarthritis 063554931 M19.90 Stable. Monitor for continued need for PRN Baclofen. Idiopathic peripheral neuropathy 40931452 G60.9 SEE ABOVE... History of malignant neoplasm of thyroid 934322683 Z85.850 Details unclear. History of malignant neoplasm of lung 181200695 Z85.110 Details unclear. s/p RUL partial lobectomy. Rhabdomyolysis 387132819 M62.82 SEE ABOVE...Re solved. [id number] Edita Contreras, [facility] [address] [place] [address] 03/04/2024 22:08:51 03/12/2024 16:01:46 Hyponatremia 95982420 E87.1 continue NaCl TIDf/u labs are ordered for am - if continued worsening, will place fluid restrictio n, consider d/c of SSRI, resume synthroid (will clarify dosing with PCP in AM) Candidiasi s of the esophagus 94199724 B37.81 Hgb dropped from 12.8 to 7.8 [...] /U with GI as OP. Erosive gastritis 939289 4456 430361 K29.70 SEE ABOVE... Chronic esophagitis 4096 74997 K20.90 SEE ABOVE... Gastro-eso phageal reflux disease with esophagitis 986789356 K21.00 SEE ABOVE... Anemia 211893590 D64.9 SEE ABOVE... Pneumonia 194712493 J18. 9 LLL PNA S/P treatment while [...] checked as we are unable to access [facility] medical records Abrasion o f skin of elbow 298034303 S50.311D S50.312D SEE ABOVE... Hypokalemia 82077276 E87 .6 Improved. Continue supplement and trend levels Dysphagia 58951420 R13.1 0 MBS while inpatient read pharyngea l dysphagia with small amount of transient laryngeal penetratio n without aspiration with thin liquids. He is presently on a regular diet with minced/pavan st meat and thin liquids.Me dications are crushed in pudding, except his Ranexa, with which he struggles. ST following here. Monitor closely. Polyp of colon 15432462 K63.5 x 1 from cecum, biopsy tubular adenoma.F/ U with GI as OP. Retention of urine 83372 4002 R33.9 Cause/work -up unclear. Arguelles was placed, removed on 02/28.Staf f notes he has been voiding without concerns.U A on 02/28 was normal, did not meet criteria to reflex to cx. Pressure i njury of sacral region of back 116543105 L89.159 SWM to eval & treat. Continue offloading and wound care. Hypertensive disorder 38 033871 I10 Per history. Not on medication s at presentBlo od pressures have been low at times - improved with pushing fluids - he has not required IV fluids although may need to consider due to hyponatrem iaContinue to trend blood pressures, monitor lytes and renal function, and add meds as clinically indicated. Hyperlipidemia 68865683 E78.5 Per history. Continue Simvastati n.F/U with cards as OP. Coronary arteriosclerosis 62737237 I25.10 s/p CABG.Have stopped baby ASA due to gastritis/ esophagiti s & anemia.Con tinue Ranexa, statin, and PRN Nitro.F/U with cards as OP. Abdominal aortic aneurysm 578476905 I71.40 Imaging noted AAA 4.7 cm.F/U as OP for further evaluation /treatment options. Hypothyroidism 52280205 E03.9 SEE ABOVE..... .will clarify with PCP and/or pharmacy in am synthroid dose and plan to resumethyr oid studies are ordered for AM Chronic ob structive pulmonary disease 69465792 J44.9 Stable at present. Continue Trelegy and PRN Duonebs. Chronic hy poxemic respiratory failure 167927530 J96.11 Stable. Wears 2L NC as OP.Current ly without concerns. Continue COPD regimen as above. Tobacco user 668753080 Z 72.0 Continue to encourage cessation upon discharge. Generalize d anxiety disorder 96270327 F41.1 Stable. Continue Escitalopr am and PRN Xanax.May need to dose reduce or d/c altogether Lexapro due to hyponatrem ia Osteoarthritis 730300759 M19.90 Stable. Monitor for continued need for PRN Baclofen. Idiopathic peripheral neuropathy 42285589 G60.9 SEE ABOVE... History of malignant neoplasm of thyroid 962966314 Z85.850 Details unclear. History of malignant neoplasm of lung 104013561 Z85.110 Details unclear. s/p RUL partial lobectomy. Rhabdomyolysis 714131015 M62.82 SEE ABOVE...Re solved. [id number] Shikha Gan NP [address] [address] 03/06/2024 08:58:29 03/08/2024 15:20:31 Hyponatremia 72427798 E87.1 Continue NaCl TID. Sent to [facility] on 03/01 due to worsening hyponatrem ia, however they sent him back the same day with NNO as they said his baseline Na is low 120s. However, he was 130s when at [facility] prior...St art 1.5 L fluid restrictio n.Hopefull y will see improvemen t with resumption of Levothyrox ine on 03/05.May need to reduce or stop Lexapro.La bs (CBC, BMP, CRP) on 03/08. Candidiasi s of the esophagus 68353375 B37.81 Hgb dropped from 12.8 to 7.8 [...] 03/04.F/U with GI as OP. Erosive gastritis 444835 6455 964552 K29.70 SEE ABOVE... Chronic esophagitis 4096 98839 K20.90 SEE ABOVE... Gastro-eso phageal reflux disease with esophagitis 428882927 K21.00 SEE ABOVE... Anemia 933967489 D64.9 SEE ABOVE... Pneumonia 460581508 J18. 9 LLL PNA S/P treatment while [...] checked as we are unable to access [facility] medical records. Consider checking while here. Abrasion o f skin of elbow 427491917 S50.311D S50.312D SEE ABOVE... Hypokalemia 70011573 E87 .6 Improved. Continue supplement and trend levels. Dysphagia 91657289 R13.1 0 MBS while inpatient read pharyngea l dysphagia with small amount of transient laryngeal penetratio n without aspiration with thin liquids. He is presently on a regular diet with minced/pavan st meat and thin liquids.Me dications are crushed in pudding, except his Ranexa.ST following here. Monitor closely. Polyp of colon 49005952 K63.5 x 1 from cecum, biopsy tubular adenoma.F/ U with GI as OP. Retention of urine 69226 4002 R33.9 Cause/work -up unclear. Arguelles was placed, removed on 02/28.Staf f notes he has been voiding without concerns.U A on 02/28 was normal, did not meet criteria to reflex to cx. Pressure i njury of sacral region of back 357972331 L89.159 SWM to eval & treat. Continue offloading and wound care. Hypertensive disorder 38 243578 I10 Per history. Not on medication s at presentBlo od pressures have been low at times - improved with pushing fluids. He has not required IV fluids although may need to consider due to hyponatrem ia.Continu e to trend blood pressures, monitor lytes and renal function, and add meds as clinically indicated. Hyperlipidemia 46546472 E78.5 Per history. Continue Simvastati n.F/U with cards as OP. Coronary arteriosclerosis 13238448 I25.10 s/p CABG.Have stopped baby ASA due to gastritis/ esophagiti s & anemia.Con tinue Ranexa, statin, and PRN Nitro.F/U with cards as OP. Abdominal aortic aneurysm 057465235 I71.40 Imaging noted AAA 4.7 cm.F/U as OP for further evaluation /treatment options. Hypothyroidism 52642610 E03.9 SEE ABOVE..... .Dr. Contreras clarified with PCP and resumed Levothyrox ine at 175 mcg daily on 03/05.Thyro id studies remain pending. Chronic ob structive pulmonary disease 65355504 J44.9 Stable at present. Continue Trelegy and PRN Duonebs. Chronic hy poxemic respiratory failure 768877566 J96.11 Stable. Wears 2L NC as OP.Current ly without concerns. Continue COPD regimen as above. Tobacco user 333264279 Z 72.0 Continue to encourage cessation upon discharge. Generalize d anxiety disorder 06175802 F41.1 Stable. Continue Escitalopr am and PRN Xanax.May need to dose reduce or d/c altogether Lexapro due to hyponatrem ia. Osteoarthritis 839532390 M19.90 Stable. Monitor for continued need for PRN Baclofen. Idiopathic peripheral neuropathy 99838256 G60.9 SEE ABOVE... History of malignant neoplasm of thyroid 786386086 Z85.850 Details unclear. History of malignant neoplasm of lung 767021449 Z85.110 Details unclear. s/p RUL partial lobectomy. Rhabdomyolysis 078388926 M62.82 SEE ABOVE...Re solved. [id number] Edita Contreras, DO [place] [address] [place] [address] 03/07/2024 17:11:25 03/12/2024 16:32:47 Altered mental status 669516225 R41.82 likely related to hyponatrem ia although need to r/o intracrani al pathology/ infection as well Hyponatremia 70455705 E8 7.1 unclear etiology - this has [...] /specialis t consultati on Low blood pressure 48898 003 I95.9 see above - EMS here [...] Name 02/28/2024 1 [place] [id number] [place] 02/28/2024 2 [employer] (MEDICARE SUPPLEMENT) [place] [id number] Cec[place] 03/01/2024 1 [place] [id number] [place] 03/01/2024 2 [employer] [facility] [employer] (MEDICARE SUPPLEMENT) [place] [id number] Cec[place] 03/04/2024 1 [place] [id number] Cec[place] 03/04/2024 2 [employer] [facility] (MEDICARE SUPPLEMENT) [place] [id number] Cec[place] 03/06/2024 1 [place] [id number] Cec[place] 03/06/2024 2 [employer] [facility] [employer] (MEDICARE SUPPLEMENT) Cecilio [place] [id number] Cecilio [place] 03/07/2024 1 [place] Cecilio [place] [id number] Cecilio [place] 03/07/2024 2 [employer] (MEDICARE SUPPLEMENT) Cecilio [place] [id number] Cecilio Bergeron Notes Date Note Type Note [...] this facility for rehabilitation following hospitalization at [facility] from 02/15 to 02/22/24 for fall prolonged [...] by his brother. He was taken to [facility] and admitted with rhabdomyolysis and was found [...] confusion. Neuro-checks and vital signs started and DIRECTOR PRODUCT SAFETY sitting outside room for observation.. Nursing notes [...] elevated [place] [address] [place], [address], [facility] 03/05/2024 07:28:21 03/01/2024 text/html F/U [...] confusion. Neuro-checks and vital signs started and DIRECTOR PRODUCT SAFETY sitting outside room for observation.. Nursing notes [...] WBC count.---03/01/24Terr y is seated in the critical access hospital, a fair historian, his largest concern is [...] except BPs have been soft. Shikha Gan, LICENSING ENGINEER [address] [facility], [place], [address], [facility] 03/05/2024 07:57:36 03/04/2024 text/html F/U [...] confusion. Neuro-checks and vital signs started and DIRECTOR PRODUCT SAFETY sitting outside room for observation.. Nursing notes [...] WBC count. ---03/01/24Terry is [facility] the [facility], a fair historian, his largest concern [...] to the ER 03/01 with labs at [facility] showing a Hb of 8.6 so he [...] arguelles removal [place] [address] [place], [address], [facility] 03/08/2024 02:45:47 03/06/2024 text/html F/U [...] confusion. Neuro-checks and vital signs started and DIRECTOR PRODUCT SAFETY sitting outside room for observation.. Nursing notes [...] WBC count.---03/01/24Terr zane is seated in the [facility], a fair historian, his largest concern [...] to the ER 03/01 with labs at [facility] showing a Hb of 8.6 so he [...] Staff is without concerns. Shikha Gan, [place] [address] [place], [address], [facility] 03/08/2024 09:09:05 03/07/2024 text/html I [...] to person only, thinks he is at [facility] and unable to tell me the correct [...] [place] [address] [facility], [place], [address], [place] [facility] 03/08/2024 03:16:12
--- OUTSIDE RECORDS SUMMARY | 2024-07-11 01:44 | XMS_ITS | Continuity of Care Document ---
Author Organization [facility] Address [address] [place] [address] Phone Care Team Providers Care Head Counselor Name Role Phone Alberto GONZALEZ, OTR/L, CHT, [...] Diagnoses Date Provider Providers Copied on Encounter [facility], [address], [place], [place], [id number], tel:[phone] [place] Brett primary osteoarth of first carpometacarp joint, l handPain in left wristEffusion, left wristStiffness of left hand, not elsewhere classifiedOther lack of coordinationMusc le weakness (generalized)Pre sence of unspecified orthopedic joint implant 8 Alberto Arriaza. [address] [facility] [facility], [address], [place], [address], [place]. tel:[phone] Referring Provider: Vick Ott, [address], [place], [address]. tel:[phone] Family History Family Member Type Diagnosis Age At Onset No Information Payers Payer name Insurance type Covered alliance party ID Authoriza tion(s) Medicare [place] MB [id number] [facility] [id number] Social History Type Description Quantity Date Captured [...]
--- OUTSIDE RECORDS SUMMARY | 2024-07-11 01:44 | XMS_ITS | Clinical Summary ---
Author Organization [facility] Care Team Providers Care Riding Coach Name Role Phone Unavailable Primary Care [...]
--- OUTSIDE RECORDS SUMMARY | 2024-07-11 01:44 | XMS_ITS | Encounter Summary ---
Author Organization [facility] Address [address] [place] [address] Care Team Providers Care Press Operator Instant [employer] Shop Name Role Phone Kathya Huerta MD Primary Care Provider [phone] Elodia Shoemaker NP Primary Care Provider [phone] Encounter Details Date Type Department Care Team (Late st Contact Info) Description 11/05/2019 Prep for Procedure [facility] [place], [place] [address] Ravinder Swan MD [address] [phone] Social History Tobacco Use Types Packs/Day Years [...] (COVID 19) (11/05/2019 1:50 PM CDT) Pathologist [facility] CORONAVIRUS SARS COV 2 PCR (RESP) NOT DETECTED NOT DETECTED 11/06/2019 8:43 PM CDT [facility] Comment: A Not Detected (negative) test result [...] providers and patients using the following websites: https://www.[employer].Adomos/home/Covid-19/HCP/NAAT/fact-sheet2 https://www.[employer]domos/home/Covid-19/Patients/NAAT/ fact-sheet2 This test has been authorized by the FDA under an Emergency Use Authorization (EUA) for use by authorized laboratories. Due to the current public health emergency, [facility] is receiving a high volume of samples [...] about COVID-19 can be found at the [facility] website: www.fsboWOW.Adomos/Covid19. Test performed at [facility] [address] [place] [address] Director: YESI FELICIANO DO,MPH NASOPHARYNGEAL SWAB / Unknown 11/05/2019 1:50 PM CDT Ravinder Swan MD MICROBIOLOGY - GENERAL ARTEMIO LONG Final Result [facility] [address] [place] [address], documented in this encounter Visit Diagnoses Diagnosis Dysphagia- Primary Dysphagia, unspecified documented in this encounter Additional Health Concerns Infection Onset Date Last Indicated Resolved Time COVID-19 Rule Out 11/05/2019 11/05/2019 11/06/2019 8:43 PM CDT documented as of this encounter Care Teams Press Operator [employer] Relationship Specialty Start Date End Date Kathya Huerta MD [address], [place] [address] PCP - General 09/28/13 11/07/19 Elodia Shoemaker NP [address] [place] [address] PCP - General NURSE PRACTITIONER 11/08/19 documented as of this encounter
--- OUTSIDE RECORDS SUMMARY | 2024-07-11 01:44 | XMS_ITS ---
Author Organization [facility] Address [address] [place], [place] [address] Care Team Providers Care Cloth Printer Name Role Phone Ramon Adam Unavailable Unavailable NATACHA MISTRY Unavailable [phone] Allergies No Known Allergies REASON FOR VISIT [...] Location Date Provider Diagnosis [facility] [place] [address] [facility] [address] [place], [place] [phone] 10/25/2023 NATACHA MISTRY Tinea unguium B35.1 ; Pain in right toe(s) M79.674 ; Pain in left toe(s) M79.675 ; Atherosclerosis of [place] arteries of extremities with intermittent claudication, bilateral [...] toe(s) (ICD-10 - M79.675) 10/25/2023 Atherosclerosis of [place] arteries of extremities with intermittent claudication, bilateral [...] Progress Notes * MARCYDENNISOB:1950 (72 yo M)Acc No.[id number]:10/25/2023 Patient: ALEXIA JASON Provider: Jamie Mistry DPM :1950 A ge:72 Y S ex:Male Date:10/25/2023 Address:[address] [place], [place] [address] Subjective: * Chief Complaints: * 1 . [...] - M79.675 4 . A therosclerosis of sp[place] arteries of extremities with intermittent claudication, bilateral [...] 1055 TRIM SKIN LESION, Modifiers: Q8 , 88810 DEBRIDE NAIL, 6 OR MORE, Modifiers: 59 , Q8 * Follow Up: 1 0-12 Weeks (Reason: At Risk Foot care, sooner if problems arise) * Billing Information: * Visit Code: * Procedure Codes: 92043 TRIM SKIN LESION. Modifiers: Q8 02819 DEBRIDE NAIL, 6 OR MORE. Modifiers: 59, Q8 * Sign off status: Completed true * Provider: Jamie Mistry DPM Date: 0 10/25/2023 Generated for Kelle Stafford/Volodymyr on: 0 07/11/2024 01:43 AM CDT History and Physical Notes * HPI [...]
--- OUTSIDE RECORDS SUMMARY | 2024-07-11 01:44 | XMS_ITS | Encounter Summary ---
Author Organization [facility] Address [address] [place] [address] Care Team Providers Care Crematory Attendant Name Role Phone Elodia Shoemaker APRN-ADMINISTRATIVE SALES ASSISTANT Primary Care Provider + Encounter Details Date Type Department Care Team (Late st Contact Info) Description 06/08/2022 Lab Requisition [facility] [address] [place] [address] Laron Prescott MD [address] [place] [address] Social History Tobacco Use Types [...] Diagnosis Comments DERMATOPATHOLOGY Routine 06/07/2022 3:33 AM METROLOGY ENGINEER documented in this encounter Results * DERMATOPATHOLOGY (06/07/2022 3:33 AM METROLOGY ENGINEER) Case Report Dermatopathology Report Case: [id number] Authorizing Provider: Laron Prescott MD Collected: 06/07/2022 03:33 AM Ordering Location: [facility] DermPath Lab Received: 06/08/2022 01:18 PM Pathologist: Tasia Malone MD Specimen: Skin, left helix 4:36 PM [facility] DERMATOPATHOLOGY LABORATORY Final Diagnosis Specimen A. 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 The specimen consists of a shave biopsy measuring 7x5x3, 3x3x2 mm. Jar 0. 4:36 PM [facility] DERMATOPATHOLOGY LABORATORY Microscopic Description Specimen A. SKIN, left helix: The epidermis shows parakeratosis, full thickness disorderly maturation of keratinocytes, mitoses at different levels, and dyskeratotic cells. There is a column of marked compact hyperkeratosis. Additional deeper sections were obtained and reviewed. 4:36 PM [facility] DERMATOPATHOLOGY LABORATORY Disclaimer An external and internal positive and negative controls are appropriate for the histochemical, immunohistochemical and immunofluorescence stain(s) in this case (if any), except where stated explicitly. The performance characteristics of the stain(s) cited in this report were developed and its performance characteristic determined by the Dermatopathology Laboratory at [facility], directed by Dr. Samy Gaspar. These tests need not be, and therefore are not, approved by the [place] Food and Drug Administration. The tests are used for clinical purposes. Billing Codes Specimen Charges Stain Charges 77946 1 4:36 PM [facility] DERMATOPATHOLOGY LABORATORY Embedded Images 4:36 PM [facility] DERMATOPATHOLOGY LABORATORY Pathology/Cytolo gy TISSUE SPECIMEN FROM SKIN / Unknown 06/07/2022 3:33 AM METROLOGY ENGINEER 06/08/2022 1:18 PM METROLOGY ENGINEER Laron Prescott MD LAB - PATHOLOGY/CYTO LOGY ORDERABLES DERMATOPATHOLOGY LABORATORY [facility] - Department of Dermatology [facility] Specialized Medicine [address] [place] [address], [address] [phone] documented in this encounter Visit Diagnoses Not on filedocumented in this encounter Care Teams Crematory Attendant Relationship Specialty Start Date End Date Elodia Shoemaker APRN-COY [address] [address] PCP - General 03/16/22 documented as of this encounter
--- OUTSIDE RECORDS SUMMARY | 2024-07-11 01:44 | XMS_ITS | Patient Health Summary ---
Author Organization [facility] Address [address] [address] [place] [address] Care Team Providers Care Manager Of Case Management Name Role Phone Elodia Shoemaker TYESHA-BALLISTICS TESTER Primary Care Provider + Note from [facility],non-owned Affiliates and Associated Physician Practices is amultiple site organization consisting of ambulatory clinics and hospital sitesin [place], [place], [place] and [place]. This disclosure is being madepursuant to the Care Everywhere program and may not contain all information available regarding this patient. Last updated 18.[facility] Allergies * Atorvastatin(Myalgias,Nausea and/or Vomiting,Unknown) -Medium [...] 04/13/2017) Results * DERMATOPATHOLOGY (06/07/2022 3:33 AM PROFESSOR OF COMMUNICATION ARTS) Only the most recent of3 resultswithin the time period is included. Case Report Dermatopathology Report Case: [id number] Authorizing Provider: Laron Prescott MD Collected: 06/07/2022 03:33 AM Ordering Location: [facility] DermPath Lab Received: 06/08/2022 01:18 PM Pathologist: Tasia Malone MD Specimen: Skin, left helix 4:36 PM [facility] DERMATOPATHOLOGY LABORATORY Final Diagnosis Specimen A. SKIN, left helix: SQUAMOUS CELL CARCINOMA IN SITU (HOGAN'S DISEASE) (D04.22) OVERLYING CUTANEOUS HORN (L85.8) (see microscopic description) 4:36 PM [facility] DERMATOPATHOLOGY LABORATORY Clinical History R/O SCC 4:36 PM [facility] DERMATOPATHOLOGY LABORATORY Gross Description Specimen A: Received is one formalin filled container labeled with the patient's name and designated left helix. The specimen consists of a shave biopsy measuring 7x5x3, 3x3x2 mm. Jar 0. 4:36 PM [facility] DERMATOPATHOLOGY LABORATORY Microscopic Description Specimen A. SKIN, left helix: The epidermis shows parakeratosis, full thickness disorderly maturation of keratinocytes, mitoses at different levels, and dyskeratotic cells. There is a column of marked compact hyperkeratosis. Additional deeper sections were obtained and reviewed. 4:36 PM [facility] DERMATOPATHOLOGY LABORATORY Disclaimer An external and internal positive and negative controls are appropriate for the histochemical, immunohistochemical and immunofluorescence stain(s) in this case (if any), except where stated explicitly. The performance characteristics of the stain(s) cited in this report were developed and its performance characteristic determined by the Dermatopathology Laboratory at [facility], directed by Dr. Samy Gaspar. These tests need not be, and therefore are not, approved by the [place] Food and Drug Administration. The tests are used for clinical purposes. Billing Codes Specimen Charges Stain Charges 36896 1 3 4:36 PM PROFESSOR OF COMMUNICATION ARTS DERMATOPATHOLOGY LABORATORY Embedded Images 3 4:36 PM PROFESSOR [employer] COMMUNICATION ARTS DERMATOPATHOLOGY LABORATORY Pathology/Cytolo gy TISSUE SPECIMEN FROM SKIN / Unknown 06/07/2022 3:33 AM PROFESSOR OF COMMUNICATION ARTS 06/08/2022 1:18 PM PROFESSOR OF COMMUNICATION ARTS Laron Prescott MD LAB - PATHOLOGY/CYTO LOGY ORDERABLES DERMATOPATHOLOGY LABORATORY [facility] - Department of Dermatology [address], [address] [phone] * PAIN MANAGEMENT PROCEDURE TIME (09/16/2020 2:39 [...] titers Nucleosomes, Histones Drug-induced SLE Speckled Sm, ADULT EDUCATION MANAGER, SCL-70, SLE,MCTD,PSS (diffuse form), SS-A/SS-B Sjogrens Nucleolar SCL-70, PM-1/SCL High titers Scleroderma, PM/DM Centromere Centromere PSS (limited form) w/Crest syndrome variable Nuclear Dot Sp100,l85-vqwuri Primary Biliary Cirrhosis Nuclear GP210, Primary Biliary Cirrhosis Membrane erlin A,B,C 02/29/2020 1:45 PM CDT 02/29/2020 Narrative Resulting Agency Comment Lab [facility] performed at: [facility] [address] [facility] [id number] Tim Wilson MD LAB - PATHOLOGY/CYTO LOGY ORDERABLES [facility] INSURANCE BILL [address] [place] [address] * C-REACTIVE PROTEIN (02/29/2020 1:45 PM CDT) C-Reactive Protein 2 0 - 10 mg/L [facility] Blood BLOOD SPECIMEN / Unknown 02/29/2020 1:45 PM CDT 02/29/2020 Narrative Resulting Agency Comment Lab Testing performed at: [facility] [place] [address] [facility] [address] [id number] Tim Wilson MD LAB - CHEMISTRY ARTEMIO LONG Performing Organization Address [facility] Co de Phone Number [facility] INSURANCE BILL [address] [place] [address] * (ABNORMAL) DARIN BLOOD SCREEN W/REFLEX TITER (02/29/2020 1:45 PM CDT) DARIN Positive(A ) [facility] INSURANCE BILL Comment: Negative <1:80 Borderline 1:80 Positive >1:80 Blood BLOOD SPECIMEN / Unknown 02/29/2020 1:45 PM CDT 02/29/2020 Narrative Resulting Agency Comment Lab Testing performed at: [facility] [place] [facility] [id number] Tim Wilson MD LAB - CHEMISTRY ARTEMIO LONG Performing Organization Address [facility] Co de Phone Number [facility] INSURANCE BILL [address] [place] [address] * ERYTHROCYTE SEDIMENTATION RATE (02/29/2020 1:45 PM CDT) Erythrocyte Sedimentation Rate Westergren 3 0 - 30 mm/hr [facility] INSURANCE BILL Blood BLOOD SPECIMEN / Unknown 02/29/2020 1:45 PM CDT 02/29/2020 Narrative Resulting Agency Comment [facility] performed [facility]: [facility] [id number] Tim Wilson MD LAB - HEMATOLOGY ORD ERABLES Performing Organization Address [facility]/ZIP Co de Phone Number [facility] INSURANCE BILL [address] [place] [address] * RAD OUTSIDE IMG IMPORT (01/17/2020 12:46 PM CDT) Tim Wilson MD DIAGNOSTIC IMAGING O RDERABLES [facility] RADIOLOGY [address] [address] * MRI IAC AND BRAIN WWO CONT [...] MD LAB - POINT OF CARE ORDERABLES [facility] POCT TESTING [address] [phone] Care Teams Manager Of Case Management Relationship Specialty Start Date End Date Elodia Shoemaker APRN-COY [address] [address] PCP - General 03/16/22
--- OUTSIDE RECORDS SUMMARY | 2024-07-11 01:45 | XMS_ITS | Patient Health Record ---
Author Organization [facility] Address [address] [place], [place] [address] Care Team Providers Care Cantilever Crane Operator Name Role Phone Ramon Adam Unavailable Unavailable BEULAHEnrique NATACHA Unavailable [phone] Allergies No Known Allergies Reason For Referral [...] Location Date Provider Diagnosis [facility] [address] [place], [place] [id number] 08/23/2023 NATACHA SNOOK Tinea unguium B35.1 ; Pain in right toe(s) M79.674 ; Pain in left toe(s) M79.675 and Atherosclerosis of red cliff arteries of extremities with intermittent claudication, bilateral legs I70.213 [facility] [address] [place], [place] [id number] 10/25/2023 NATACHA SNOOK Tinea unguium B35.1 ; Pain in right toe(s) M79.674 ; Pain in left toe(s) M79.675 ; Atherosclerosis of red cliff arteries of extremities with intermittent claudication, bilateral legs I70.213 and Acquired keratosis [keratoderma] palmaris et plantaris L85.1 [facility] [place] [address] [id number] 12/27/2023 NATACHA MISTRY Tinea unguium B35.1 ; Pain in right foot M79.671 ; Pain in left foot M79.672 ; Atherosclerosis of red cliff arteries of extremities with intermittent claudication, bilateral [...] toe(s) (ICD-10 - M79.675) 08/23/2023 Atherosclerosis of red cliff arteries of extremities with intermittent claudication, bilateral legs (ICD-10 - I70.213) 10/25/2023 Atherosclerosis of red cliff arteries of extremities with intermittent claudication, bilateral legs (ICD-10 - I70.213) 12/27/2023 Atherosclerosis of red cliff arteries of extremities with intermittent claudication, bilateral [...] Date Coverage End Date Medicare Part B [facility] [address] [place] [address] [id number] ALEXIA VIDAL Self - patient is the insured [employer] [address] [place] [address] [id number] ALEXIA VIDAL Self - patient is the insured Medical (General) History Medical History History ICD Code acid reflux Cancer (type of cancer) GERD Leg/Feet cramps Respiratory disease Skin Disorder Arthritis skin cancer Heart Disease Back Trouble Radiation therapy hypertension Lung Disease Surgical History Surgery Date(Month/Year) shoulder surgery 06/2022 heart bypass 2002 knee replacement 2005
--- OUTSIDE RECORDS SUMMARY | 2024-07-11 01:45 | XMS_ITS ---
Author Organization [facility] Address [address] [place] [address] Care Team Providers Care [place] Nurse Name Role Phone Dimitris Burrows Primary Care Provider + Active Problems Problem Noted Date Diagnosed Date Abnormal stress test 10/11/2019 Overview (10/11/2019): Added automatically from request for surgery [id number] Acoustic neuroma 10/27/2018 Bilateral cataracts 10/27/2018 Bone [...]
--- OUTSIDE RECORDS SUMMARY | 2024-07-11 01:45 | XMS_ITS | Referral Summary ---
Author Organization [facility] Address [address] [place] [address] Care Team Providers Care Spa Director/Finance Name Role Phone Dimitris Burrows Primary Care [...] (VITAMIN D-3) 2000 unit capsule Takes D3 12036 Units once a week Active nitroglycerin (nitroglycerin) [...] (10/11/2019): Added automatically from request for surgery [id number] Acoustic neuroma 10/27/2018 Bilateral cataracts 10/27/2018 Bone [...] radiation and chemotherapy. Patient was referred to [facility], he saw Dr. Martinez and Dr. [...] carcinoma in situ. He was referred to [facility] and there was evaluated by thoracic [...] on file Legal Sex Male 3:06 AM CONSTRUCTION ANALYST Gender Identity Not on file Sexual [...] Recently Relevant to Health Maintenance Insurance MEDICARE [facility] [place] [address] [place] [address] MEDICARE [place]ICARE [place] MEDICARE [employer] [facility] Advance Directives For more information, please contact: [phone] * Full Code (Latest Code Status on File) Date Activated Date Inactivated Comments 10/26/2019 8:41 AM 01/13/2020 12:53 PM Care Teams Spa Director/Finance Relationship Specialty Start Date End Date Dimitris Burrows PA [facility] [place] [address] PCP - General Internal Medicine 09/19/23
--- OUTSIDE RECORDS SUMMARY | 2024-07-11 01:45 | XMS_ITS ---
Author Organization [facility] Address [address] [place], [place] [address] Care Team Providers Care Tool Turret Lathe Set Up Operator Name Role Phone Ramon Adam Unavailable Unavailable NATACHA MISTRY Unavailable [phone] REASON FOR VISIT Patient presents for at-risk [...] Location Date Provider Diagnosis [facility] [address] [facility] [address] [place], [place] [id number] 12/27/2023 NATACHA MISTRY Tinea unguium B35.1 ; Pain in right foot M79.671 ; Pain in left foot M79.672 ; Atherosclerosis of [place] arteries of extremities with intermittent claudication, bilateral [...] foot (ICD-10 - M79.672) 12/27/2023 Atherosclerosis of [place] arteries of extremities with intermittent claudication, bilateral [...] Notes * LIZDENNIS ELLISOB:1950 (73 yo M)Acc No.[id number]:12/27/2023 Patient: ALEXIA JASON Provider: Jamie Mistry DPM :1950 A ge:73 Y S ex:Male Date:12/27/2023 Address:[address] [place], [place] [address] Subjective: * Chief Complaints: * 1 . [...] - M79.672 4 . A therosclerosis of [place] arteries of extremities with intermittent claudication, bilateral [...] 1055 TRIM SKIN LESION, Modifiers: Q8 , 51188 DEBRIDE NAIL, 6 OR MORE, Modifiers: 59 , Q8 * Follow Up: 1 0 - 12 weeks (Reason: At-Risk Foot care, sooner if problems develop.) * Billing Information: * Visit Code: * Procedure Codes: 03967 TRIM SKIN LESION. Modifiers: Q8 46398 DEBRIDE NAIL, 6 OR MORE. Modifiers: 59, Q8 * Sign off status: Completed true * Provider: Jamie Mistry DPM Date: 0 12/27/2023 Generated for Kelle cochran/Jorge/Volodymyr on: 0 07/11/2024 01:45 AM CDT History and Physical Notes * [...]
--- OUTSIDE RECORDS SUMMARY | 2024-07-11 01:45 | XMS_ITS | Encounter Summary ---
Author Organization [facility] Facility Care Team Providers Care Bale Tie Machine Operator Name Role Phone Elodia Shoemaker NP Primary Care Provider [phone] No, Physician Primary Care Provider [phone] Dimitris Burrows Primary Care Provider + Encounter Details Date Type Department Care Team (Latest Contact Info) Description 08/26/2016 Orders Only [facility] CLINCONV ProviderSusan MD [address] [place] [address] Social History Tobacco Use Types Packs/Day Years Used Date Smoking Tobacco: Never Assessed Alcohol Use Standard Drinks/Week Comments No 0 (1 standard drink = 0.6 oz pur e alcohol) Sex and Gender Information Value Date Recorded Sex Assigned at Not on file Legal Sex Male 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
--- OUTSIDE RECORDS SUMMARY | 2024-07-11 01:45 | XMS_ITS | Clinical Summary ---
Author Organization 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 Patient was referred to [facility], he saw Dr. Martinez and Dr. [...] carcinoma in situ. 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 Gender Identity Not on file Sexual Orientation [...] Recently Relevant to Health Maintenance [place] [address] [facility] MEDICARE [facility] MEDICARE [facility] Advance Directives For more information, please contact: [phone] * Full Code (Latest Code Status on File) Date Activated Date Inactivated Comments 10/26/2019 8:41 AM 01/13/2020 12:53 PM Care Teams Institute Scientist Relationship Specialty Start Date End Date Dimitris Burrows PA [facility] [place] [address] PCP - General Internal Medicine 09/19/23
--- OUTSIDE RECORDS SUMMARY | 2024-07-11 01:45 | XMS_ITS | Encounter Summary ---
Author Organization [facility] Facility Care Team Providers Care Cinder Block Mason Name Role Phone Elodia Shoemaker NP Primary Care Provider [phone] No, Physician Primary Care Provider [phone] Dimitris Burrows Primary Care Provider + Encounter Details Date Type Department Care Team (Latest Contact Info) Description 07/07/2016 Orders Only [facility] CLINCONV ProviderSusan MD [address] [place] [address] Social History Tobacco Use Types Packs/Day Years Used Date Smoking Tobacco: Never Assessed Alcohol Use Standard Drinks/Week Comments No 0 (1 standard drink = 0.6 oz pur e alcohol) Sex and Gender Information Value Date Recorded Sex Assigned at Not on file Legal Sex Male 3:06 AM DISTRICT CUSTOMS DIRECTOR Gender Identity Not on file Sexual Orientation Not on file documented as of this encounter Plan of Treatment Not on file documented as of this encounter Procedures Procedure Name Priority Date/Time Associated Diagnosis Comments SCAN - PATHOLOGY 07/07/2016 12:0 0 AM DISTRICT CUSTOMS DIRECTOR documented in this encounter Results * SCAN - PATHOLOGY (07/07/2016 12:00 AM DISTRICT CUSTOMS DIRECTOR) Narrative 07/07/2016 12:00 AM DISTRICT CUSTOMS DIRECTOR Ordered by an unspecified provider. Historical Provider Final Res ult documented in this encounter Visit Diagnoses Not on filedocumented in this encounter Care Teams Cinder Block Mason Relationship Specialty Start Date End Date Elodia Shoemaker NP PCP - General 07/07/16 01/04/23 No, Physician PCP - General 09/08/23 09/18/23 Dimitris Burrows PA [facility] [place] [address] PCP - General Internal Medicine 09/19/23 documented as of this encounter
--- OUTSIDE RECORDS SUMMARY | 2024-07-11 01:45 | XMS_ITS ---
Author Organization [facility] Address [address] [place], [place] [address] Care Team Providers Care Hand Roller Name Role Phone Ramon Adam Unavailable Unavailable NATACHA MISTRY Unavailable [phone] REASON FOR VISIT in hospital Encounters Encounter Location Date Provider Diagnosis [facility] [address] [facility] [address] [place], [place] [id number] 03/20/2024 NATACHA MISTRY Plan Of Treatment No Information Progress Notes * DENNIS BERGERONOB:1950 (73 yo M)Acc No.[id number]:03/20/2024 Patient: ALEXIA JASON Provider: Jamie Mistry DPM :1950 A ge:73 Y S ex:Male Date:03/20/2024 Address:[address] [place], [place] [id number] Subjective: * Chief Complaints: * 1 . In hospital. * Medical History: Objective: * Vitals: Assessment: Plan: * Treatment: * Billing Information: * Visit Code: * Procedure Codes: * Electronic signature of NATACHA MISTRY DPM on 07/11/2024 at 01:44 AM CDT Sign off status: Pending * Provider: Jamie Mistry DPM Date: 05/20/2023 Generated for Printi ng/Faxing/eTransmitting on: 0 07/11/2024 01:44 AM CDT
--- OUTSIDE RECORDS SUMMARY | 2024-07-11 01:45 | XMS_ITS | Encounter Summary ---
Author Organization [facility] Facility Care Team Providers Care Tie Worker Name Role Phone Elodia Shoemaker NP Primary Care Provider [phone] Kathya Huerta MD Primary Care Provider [phone] No, Physician Primary Care Provider Dimitris Burrows Primary Care Provider + Encounter Details Date Type Department Care Team (Latest Contact Info) Description 07/01/2016 Orders Only [facility] CLINCONV Provider, MD Susan [address] [place] [address] Social History Tobacco Use Types Packs/Day Years Used Date Smoking Tobacco: Never Assessed Alcohol Use Standard Drinks/Week Comments No 0 (1 standard drink = 0.6 oz pur e alcohol) Sex and Gender Information Value Date Recorded Sex Assigned at Not on file Legal Sex Male 3:06 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 Historical Provider Final Res ult documented in this encounter Visit Diagnoses Not on filedocumented in this encounter Care Teams Tie Worker Relationship Specialty Start Date End Date Elodia Shoemaker NP PCP - General 07/07/16 01/04/23 Kathya Huerta MD [address] [address] PCP - General 05/11/13 07/06/16 No, Physician PCP - General 09/08/23 09/18/23 Dimitris Burrows PA [facility] [place] [address] PCP - General Internal Medicine 09/19/23 documented as of this encounter
--- NOTE | 2024-07-11 02:11 | ED.GENADULT ---
HPI - General Adult General Chief complaint: Unspecified Stated complaint: G-Tube pulled out Time Seen by Provider: 07/11/24 01:32 History of Present Illness HPI narrative: Patient is here today from a local half-way as he pulled out his G-tube again for the 3rd time this week. No additional concerns or symptoms. Related Data Home Medications ?Medication ?Instructions ?Recorded ?Confirmed ?Last Taken ?Type nitroglycerin 400 mcg/spray 1 spray translingual Q5M PRN Chest 07/21/20 03/25/24 Unknown History translingual Pain albuterol sulfate 2 puff inhalation Q4H PRN 03/08/24 03/25/24 Unknown History Shortness Of Breath fluticasone fur. 100 mcg-umeclid 1 inh inhalation DAILY 03/08/24 03/25/24 Unknown History 62.5 mcg-vilant 25 mcg inhalat.powder (Trelegy Ellipta) ipratropium-albuterol 1 vial inhalation TID 03/08/24 03/25/24 Unknown History bisacodyl 10 mg rectal suppository 10 mg RECTAL DAILY PRN Constipation 03/25/24 03/25/24 Unknown History naloxone 4 mg/actuation nasal spray 4 mg intranasal Q2M 03/25/24 03/25/24 Unknown History sodium phosphates 19 gram-7 118 ml RECTAL ONCE 03/25/24 03/25/24 Unknown History gram/118 mL enema (Fleet Enema) Allergies Allergy/AdvReac Type Severity Reaction Status Date / Time atorvastatin AdvReac Mild MADE ME Verified 07/09/24 16:37 SICK methocarbamol AdvReac Mild MADE ME Verified 07/09/24 16:37 SICK terbinafine AdvReac Mild MADE ME Verified 07/09/24 16:37 SICK Review of Systems Review of Systems: All systems are reviewed and are negative unless stated otherwise in the HPI. [facility] Past Medical History Medical History Chronic obstructive pulmonary disease Gastroesophageal reflux disease Thyroid cancer Adenomatous colon polyp Hyponatremia Rhabdomyolysis Lymphocytic esophagitis Nonerosive esophageal reflux disease Frequent falls Coronary artery disease Peripheral neuropathy Basal cell carcinoma Hypothyroidism Lung cancer status post right upper lobe pneumonectomy Hypertension High cholesterol Surgical History Surgical History History of esophageal dilatation History of cholecystectomy History of cataract extraction with lens replacement (2015) History of four vessel coronary artery bypass graft (09/2002) History of bilateral inguinal hernia repair History of open reduction and internal fixation (ORIF) procedure (06/2022) repair right proximal humerus fracture History of coronary angioplasty History of ventral hernia repair (06/2006) gastric volvulus with ventral hernia repair History of medial meniscus repair of right knee (2005) History of hemorrhoidectomy History of bilateral carpal tunnel release History of pneumonectomy (2014) right upper lobe due to lung cancer History of colonoscopy History of esophagogastroduodenoscopy (EGD) (2006) Family History Family History Mother MVA (motor vehicle accident) Father Gunshot wound Sibling Heart disease Other Family history of cardiovascular disease Social History Social History Social History: Surrogate medical decision maker: Linwood Cherryvale ([phone]), brother. Code status: Full code. Smoking packs per day: 1 Smoking cigarettes per day: 20.0 Years smoked: 50 Smoking pack-years: 50.00 Smoking status: Current every day smoker Second hand tobacco smoke exposure: Yes Additional smoking assessment comments: has cut down to 4-6 cigarettes a day Alcohol intake: former Alcohol use details: no alcohol since August 31, 1984 Substance use: never Do You Feel Safe in your Home?: Yes Lack of Transportation: No Lack of Food: Never True Current Housing: I Have Housing Concerned About Future Housing: No Difficulty Paying Gas/Electric Bills: No Difficulty Paying for Meds: No Currently Unemployed: No Education: Decline to Answer Difficulty w/ Childcare or Family Care: No Additional living arrangements comments: Lives alone. with 2 children. Currently at [facility]. 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 Spiritual care concerns: No Exam Narrative: General: Alert, awake, afebrile, in no acute distress. HEENT: PERRL, no rhinorrhea, no post nasal drip, oropharynx clear. Neck: Trachea midline, no JVD, no lymphadenopathy. Cardiovascular: Regular rate and rhythm, no murmurs, rubs or gallops, no peripheral edema. Respiratory: Clear to auscultation bilaterally, no tachypnea, no wheezing, no rhonchi, no rubs, no respiratory distress. Abdomen: Soft, nontender, nondistended, no rebound, no guarding, no peritoneal signs, G-tube site without any redness or erythema, no bleeding, no G-tube in place. Musculoskeletal: No joint swelling or deformity, normal muscle tone. Skin: No rashes or petechia, no signs of infection. Psychiatric: Alert and oriented, normal behavior and judgment for situation. Neurological: Alert and oriented to person, place, and time. Follows all commands. No focal deficits, speech is clear and fluent. Course Vital Signs Vital signs: Vital Signs Temperature 98.2 F 07/11/24 01:32 Pulse Rate 69 07/11/24 01:32 Respiratory Rate 16 07/11/24 01:32 Blood Pressure 110/72 07/11/24 01:32 Pulse Oximetry 94 07/11/24 01:32 Oxygen Delivery Room Air 07/11/24 01:32 Temperature 98.2 F 07/11/24 01:32 Pulse Rate 69 07/11/24 01:32 Respiratory Rate 16 07/11/24 01:32 Blood Pressure 110/72 07/11/24 01:32 Pulse Oximetry 94 07/11/24 01:32 Oxygen Delivery Room Air 07/11/24 01:32 Medical Decision Making MDM Narrative Medical decision making narrative: The patient was evaluated by myself in the emergency department. History is obtained from EMS and physical exam was performed. External medical records were reviewed at this time. Patient's G-tube was replaced, unsure of what size was placed during patient's loss hospital visit, however, from July 05, a 20 Hebrew G-tube was placed. I was unsuccessful and placing a 20 Hebrew G-tube, next smaller available size was a 16 Hebrew and I was successful in getting this G-tube in. Imaging studies obtained included abdominal x-ray which was independently interpreted by me revealing normal G-tube positioning within the stomach, which is pending final radiology interpretation. Differential diagnosis considerations include due to malfunction, G-tube dislodgement. Comorbidities impacting this visit include none. I have evaluated and discussed social determinants of health with the patient that could potentially impact subsequent diagnosis and treatment plans. On repeat assessment of the patient, reevaluation revealed that the patient is doing well and is in no acute distress. Patient symptoms have improved since he arrived to our emergency department. Repeat vital signs were all reviewed and noted to be stable. Differential diagnosis and treatment plan were discussed with the patient at bedside. Patient agrees with discussion and after shared medical decision making agrees with discharge. All questions were answered to the patient's satisfaction. Patient will follow up with his PCP in 3-5 days. Patient was provided with strict return precautions and instructed to return to the emergency department if any new or worsening symptoms develop. The patient was discharged in stable condition. Vital Signs Vital Signs: Vital Signs Temperature 98.2 F 07/11/24 01:32 Pulse Rate 69 07/11/24 01:32 Respiratory Rate 16 07/11/24 01:32 Blood Pressure 110/72 07/11/24 01:32 Pulse Oximetry 94 07/11/24 01:32 Oxygen Delivery Room Air 07/11/24 01:32 Temperature 98.2 F 07/11/24 01:32 Pulse Rate 69 07/11/24 01:32 Respiratory Rate 16 07/11/24 01:32 Blood Pressure 110/72 07/11/24 01:32 Pulse Oximetry 94 07/11/24 01:32 Oxygen Delivery Room Air 07/11/24 01:32 Discharge Plan Discharge Clinical Impression: Gastrojejunostomy tube dislodgement Patient Disposition: SNF Condition: Improved Instructions: How to Use and Care for Your PEG Tube (DC) Additional Instructions: Please follow-up with your family doctor within the next 3-5 days. Return to the emergency department if any new or worsening symptoms develop. We were unable to place a 20 Hebrew G-tube, only a 16 Hebrew. Patient Language: [place] Prescriptions: No Action nitroglycerin 400 mcg/spray spray,non-aerosol 1 spray translingual Q5M PRN (Reason: Chest Pain) Rx Instructions: do not exceed 3 doses per episode Trelegy Ellipta 100-62.5-25 mcg blister with device 1 inh INHALATION DAILY albuterol sulfate 2 puff inhalation Q4H PRN (Reason: Shortness Of Breath) ipratropium-albuterol 1 vial inhalation TID bisacodyl 10 mg Suppository 10 mg RECTAL DAILY PRN (Reason: Constipation) Rx Instructions: give if milk of magnesia doesn't work Fleet Enema 19-7 gram/118 mL Enema 118 ml RECTAL ONCE Rx Instructions: give if no results 1 day after suppository naloxone 4 mg/actuation [place],Non-Aerosol 4 mg INTRANASAL Q2M Rx Instructions: spray 1 dose into ONE nostril; alternate nostrils w each dose until help arrives acetaminophen [Nortemp] 160 mg/5 mL Suspension 650 mg feeding tube Q6H PRN (Reason: Pain Rated 1-3) Qty: 120 0RF polyethylene glycol 3350 [Miralax] 17 gram Powder In Packet 17 g feeding tube QAM PRN (Reason: Constipation) Qty: 30 0RF hydrocodone-acetaminophen 5-325 mg Tablet 1 tablet feeding tube Q6H PRN (Reason: Pain rated 4-10) Qty: 10 0RF levothyroxine 25 mcg Tablet 37.5 mcg feeding tube DAILY@0630 Qty: 45 0RF amoxicillin-pot clavulanate 875-125 mg tablet 1 tablet feeding tube Q12H Qty: 5 0RF polysaccharide iron complex 150 mg iron Capsule 150 mg feeding tube BID Qty: 60 0RF magnesium hydroxide [Milk of Magnesia] 400 mg/5 mL Suspension 400 mg feeding tube DAILY PRN (Reason: Constipation) Qty: 355 0RF Rx Instructions: give if no BM in 3 days baclofen 10 mg tablet 5 mg feeding tube TID PRN (Reason: muscle spasms) Qty: 30 0RF simvastatin 20 mg tablet 20 mg feeding tube DAILY Qty: 30 0RF levothyroxine [Synthroid] 150 mcg Tablet 150 mcg feeding tube DAILY@0630 Qty: 30 0RF magnesium citrate [Citroma] Solution 300 ml feeding tube DAILY PRN (Reason: Constipation) Qty: 296 0RF Rx Instructions: give if no results from enema aspirin 81 mg Tablet,Chewable 81 mg feeding tube DAILY Qty: 30 0RF escitalopram oxalate 20 mg Tablet 20 mg feeding tube QHS Qty: 30 0RF Saccharomyces boulardii 250 mg Capsule 250 mg feeding tube BID Qty: 30 0RF Rx Instructions: stop 04/03/24 Mucinex 600 mg G-tube BID Qty: 60 0RF Rx Instructions: Ends 24 benzonatate 100 mg G-tube Q8H PRN (Reason: Cough) Qty: 20 0RF omeprazole 40 mg G-tube BID Qty: 60 0RF sodium chloride 500 mg G-tube BID Qty: 60 0RF alprazolam 1 mg tablet 1 mg feeding tube TID PRN (Reason: anxiety) Qty: 10 0RF Follow-up/Referrals: PHYSICIAN NOT ON STAFF,NONSTAFF [Primary Care Provider] - Juliocesar Snow MD [Physician] - 3 Days Time of Disposition: 02:14
--- NOTE | 2024-07-11 02:16 | PC.NURSE ---
Martita @ [facility] called for an update.
[2024-07-11 03:55] VITALS: BP 110/76; PULSE 60; RESP 13; O2SAT 91
--- NOTE | 2024-07-11 04:07 | PC.NURSE ---
repot to bill at [facility], [facility]s contacted. eta [phone].
--- NOTE | 2024-07-11 06:34 | PC.NURSE ---
report to ems.
== END 2024-07-11 06:34 ==
PROVIDERS: Emergency Provider Emergency Medicine
DX: J44.9 Chronic obstructive pulmonary disease, unspecified (principal); I25.10 Atherosclerotic heart disease of native coronary artery without angina pectoris; I10 Essential (primary) hypertension; E78.00 Pure hypercholesterolemia, unspecified; K21.9 Gastro-esophageal reflux disease without esophagitis; G62.9 Polyneuropathy, unspecified; F17.210 Nicotine dependence, cigarettes, uncomplicated; Z95.1 Presence of aortocoronary bypass graft; Z85.828 Personal history of other malignant neoplasm of skin; Z85.118 Personal history of other malignant neoplasm of bronchus and lung; Z86.0101 Personal history of adenomatous and serrated colon polyps; Z85.850 Personal history of malignant neoplasm of thyroid; Z96.1 Presence of intraocular lens; Z98.49 Cataract extraction status, unspecified eye; Z90.2 Acquired absence of lung [part of]; Z90.49 Acquired absence of other specified parts of digestive tract; Z79.82 Long term (current) use of aspirin; Z79.899 Other long term (current) drug therapy
CPT/HCPCS: 43762; 99283

== ENCOUNTER 2024-10-14 14:56 | Emergency (ER) | payer OTHER, SELFPAY ==
--- NOTE | ~2024-10-14 | XR_ITS ---
Exam: Abdomen 1V HISTORY: gtube replacement COMPARISON: 07/11/2024 TECHNIQUE: Supine images of the lower chest and upper abdomen FINDINGS: Gastrostomy tube extends into the left upper quadrant. Oral contrast opacifies the stomach and proximal small bowel IMPRESSION: Gastrostomy tube in good position and ready for immediate use. Reviewed, dictated and finalized at location A.
--- NOTE | ~2024-10-14 | XR_ITS ---
CHEST RADIOGRAPH CLINICAL HISTORY: coarse lung sounds . COMPARISON: 03/25/2024 TECHNIQUE: Single portable view of the chest. FINDINGS Sternal wires and mediastinal clips are identified, the wires are midline and intact. The remainder of the cardiomediastinal silhouette is otherwise unremarkable. Coarse interstitial lung markings are detected bilaterally, unchanged from prior. The bilateral lung nye are otherwise clear. IMPRESSION: Coarse interstitial lung markings, without focal infiltrate or effusion. Reviewed, dictated and finalized at location A.
[2024-10-14 14:59] VITALS: BP 123/83; PULSE 65; RESP 20; TEMP 36.7; O2SAT 97
[2024-10-14 15:00] VITALS: BP 123/83; PULSE 67; RESP 18; O2SAT 100
--- NOTE | 2024-10-14 15:06 | ED.GENADULT ---
HPI - General Adult General Chief complaint: Unspecified <Anamika Freire APRN - Last Filed: 10/14/24 16:24> Stated complaint: gtube replacement <Anamika Freire APRN - Last Filed: 10/14/24 16:24> History of Present Illness HPI narrative: Patient is a 73-year-old male who presents to the ER with concerns of his G-tube fell out. According to EMS patient's G-tube fell out approximately 15 minutes prior to their arrival. Patient endorses a moderate amount of pain around the G-tube site. He denies any chest pain, shortness of breath, recent fevers, or increased coughing. According to patient's chart he has history of thyroid cancer, lung cancer, high blood pressure, COPD, and constipation. <Anamika Freire APRN - Last Filed: 10/14/24 16:24> Related Data Home medications: Home Medications ?Medication ?Instructions ?Recorded ?Confirmed ?Last Taken ?Type nitroglycerin 400 mcg/spray 1 spray translingual Q5M PRN Chest 07/21/20 03/25/24 Unknown History translingual Pain albuterol sulfate 2 puff inhalation Q4H PRN 03/08/24 03/25/24 Unknown History Shortness Of Breath fluticasone fur. 100 mcg-umeclid 1 inh inhalation DAILY 03/08/24 03/25/24 Unknown History 62.5 mcg-vilant 25 mcg inhalat.powder (Trelegy Ellipta) ipratropium-albuterol 1 vial inhalation TID 03/08/24 03/25/24 Unknown History bisacodyl 10 mg rectal suppository 10 mg RECTAL DAILY PRN Constipation 03/25/24 03/25/24 Unknown History naloxone 4 mg/actuation nasal spray 4 mg intranasal Q2M 03/25/24 03/25/24 Unknown History sodium phosphates 19 gram-7 118 ml RECTAL ONCE 03/25/24 03/25/24 Unknown History gram/118 mL enema (Fleet Enema) <Anamika Freire APRN - Last Filed: 10/14/24 16:24> Allergies/adverse reactions: Allergies Allergy/AdvReac Type Severity Reaction Status Date / Time atorvastatin AdvReac Mild MADE ME Verified 07/09/24 16:37 SICK methocarbamol AdvReac Mild MADE ME Verified 07/09/24 16:37 SICK terbinafine AdvReac Mild MADE ME Verified 07/09/24 16:37 SICK <Anamika Freire APRN - Last Filed: 10/14/24 16:24> Review of Systems Review of Systems: All systems reviewed & are unremarkable except as noted in HPI and below <Anamika Freire APRN - Last Filed: 10/14/24 16:24> PMFSH Past Medical History Medical History: Medical History Chronic obstructive pulmonary disease Gastroesophageal reflux disease Thyroid cancer Adenomatous colon polyp Hyponatremia Rhabdomyolysis Lymphocytic esophagitis Nonerosive esophageal reflux disease Frequent falls Coronary artery disease Peripheral neuropathy Basal cell carcinoma Hypothyroidism Lung cancer status post right upper lobe pneumonectomy Hypertension High cholesterol <Anamika Freire APRN - Last Filed: 10/14/24 16:24> Surgical History Surgical History: Surgical History History of esophageal dilatation History of cholecystectomy History of cataract extraction with lens replacement (2015) History of four vessel coronary artery bypass graft (09/2002) History of bilateral inguinal hernia repair History of open reduction and internal fixation (ORIF) procedure (06/2022) repair right proximal humerus fracture History of coronary angioplasty History of ventral hernia repair (06/2006) gastric volvulus with ventral hernia repair History of medial meniscus repair of right knee (2005) History of hemorrhoidectomy History of bilateral carpal tunnel release History of pneumonectomy (2014) right upper lobe due to lung cancer History of colonoscopy History of esophagogastroduodenoscopy (EGD) (2006) <Anamika Freire APRN - Last Filed: 10/14/24 16:24> Family History Family History: Family History Mother MVA (motor vehicle accident) Father Gunshot wound Sibling Heart disease Other Family history of cardiovascular disease <Anamika Freire APRN - Last Filed: 10/14/24 16:24> Social History Social History: Social History Social History: Surrogate medical decision maker: Linwood Bergeron ([phone]), brother. Code status: Full code. Smoking packs per day: 1 Smoking cigarettes per day: 20.0 Years smoked: 50 Smoking pack-years: 50.00 Smoking status: Current every day smoker Second hand tobacco smoke exposure: Yes Additional smoking assessment comments: has cut down to 4-6 cigarettes a day Alcohol intake: former Alcohol use details: no alcohol since August 31, 1984 Substance use: never Do You Feel Safe in your Home?: Yes Lack of Transportation: No Lack of Food: Never True Current Housing: I Have Housing Concerned About Future Housing: No Difficulty Paying Gas/Electric Bills: No Difficulty Paying for Meds: No Currently Unemployed: No Education: Decline to Answer Difficulty w/ Childcare or Family Care: No Additional living arrangements comments: Lives alone. with 2 children. Currently at [facility]. 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 Spiritual care concerns: No <Anamika Freire APRN - Last Filed: 10/14/24 16:24> Exam Narrative: GENERAL: Well appearing, well-nourished, non-toxic, in no acute distress. HEAD: Normocephalic, atraumatic. NECK: Supple. No adenopathy, no masses. RESPIRATORY: Airway patent, respirations nonlabored. Coarse lung sounds all lobes. Productive cough. CARDIOVASCULAR: Regular rate and rhythm without murmurs, rubs, or gallops. Peripheral pulses 2+ and equal bilaterally. ABDOMINAL: Soft, tender around gtube site, nondistended, no hepatosplenomegaly. Normoactive BS. MUSCULOSKELETAL: Moves all extremities. Strength/ROM intact without gross deformities. SKIN: Warm, dry, normal color. No rashes. NEURO: A&O X3. Speech clear. Cranial nerves II-XII intact. No ataxic movements. PSYCHIATRIC: Appropriate mood and affect. Normal interaction. <Anamika Freire APRN - Last Filed: 10/14/24 16:24> Course Vital Signs Vital signs: Vital Signs Temperature 36.7 C 10/14/24 14:59 Pulse Rate 65 10/14/24 14:59 Respiratory Rate 20 10/14/24 14:59 Blood Pressure 123/83 10/14/24 14:59 Pulse Oximetry 97 10/14/24 14:59 Oxygen Delivery Nasal Cannula 10/14/24 14:59 Oxygen Flow Rate 3 10/14/24 14:59 Temperature 36.7 C 10/14/24 15:20 Pulse Rate 65 10/14/24 16:05 Respiratory Rate 18 10/14/24 16:05 Blood Pressure 101/71 10/14/24 16:05 Pulse Oximetry 100 10/14/24 16:05 Oxygen Delivery Nasal Cannula 10/14/24 14:59 Oxygen Flow Rate 3 10/14/24 14:59 <Anamika Freire, FOOD ASSEMBLER [employer]EN - Last Filed: 10/14/24 16:24> Vital Signs Temperature 36.7 C 10/14/24 14:59 Pulse Rate 65 10/14/24 14:59 Respiratory Rate 20 10/14/24 14:59 Blood Pressure 123/83 10/14/24 14:59 Pulse Oximetry 97 10/14/24 14:59 Oxygen Delivery Nasal Cannula 10/14/24 14:59 Oxygen Flow Rate 3 10/14/24 14:59 Temperature 36.7 C 10/14/24 15:20 Pulse Rate 65 10/14/24 16:05 Respiratory Rate 18 10/14/24 16:05 Blood Pressure 101/71 10/14/24 16:05 Pulse Oximetry 100 10/14/24 16:05 Oxygen Delivery Nasal Cannula 10/14/24 14:59 Oxygen Flow Rate 3 10/14/24 14:59 <Rodney Hernandez MD - Last Filed: 10/14/24 16:24> Procedures Feeding Tube Replacement Feeding Tube #1: Feeding Tube Placement Date: 10/14/24 <Rodney Hernandez MD - Last Filed: 10/14/24 16:24> Feeding Tube Placement Time: 16:00 <Rodney Hernandez MD - Last Filed: 10/14/24 16:24> Type of Tube: gastrostomy <Rodney Hernandez MD - Last Filed: 10/14/24 16:24> Insertion Site Prior to Procedure: clean <Rodney Hernandez MD - Last Filed: 10/14/24 16:24> Tube Used for Reinsertion: other <Rodney Hernandez MD - Last Filed: 10/14/24 16:24> Divehi Tube Size (F): 16 <Rodney Hernandez MD - Last Filed: 10/14/24 16:24> Balloon size (mL): 5 <Rodney Hernandez MD - Last Filed: 10/14/24 16:24> Verification of Placement: gastrografin injection <Rodney Hernandez MD - Last Filed: 10/14/24 16:24> Tube Secured by: tape/dressing <Rodney Hernandez MD - Last Filed: 10/14/24 16:24> Patient Tolerated Procedure: well and no complications <Rodney Hernandez MD - Last Filed: 10/14/24 16:24> Medical Decision Making MDM Narrative Medical decision making narrative: Patient is a 73-year-old male who presents to the ER with concerns of his G-tube fell out. According to EMS patient's G-tube fell out approximately 15 minutes prior to their arrival. Patient endorses a moderate amount of pain around the G-tube site. He denies any chest pain, shortness of breath, recent fevers, or increased coughing. According to patient's chart he has history of thyroid cancer, lung cancer, high blood pressure, COPD, and constipation. Labs Ordered: None necessary Imaging Ordered: Abdominal G tube insertion x-ray, chest x-ray Medications Ordered: None necessary Results: Pt's chest x-ray indicates Coarse interstitial lung markings, without focal infiltrate or effusion. Pt's gtube x-ray indicates Gastrostomy tube in good position and ready for immediate use. Diagnosis: gtube replacement Patient Education/Shared MDM: Results of imaging shared with patient. Patient strongly advised to follow-up with his PCP as needed. He will be discharged home with no new prescriptions. Strict return precautions provided. Patient verbalized understanding and is in agreement with plan. Vital signs stable at time of discharge. All questions answered. <Anamika Freire APRN - Last Filed: 10/14/24 16:24> Differential Diagnosis Differential Diagnosis: G-tube dislodged, pneumonia, G-tube replacement <Anamika Freire, FOOD ASSEMBLER [employer] - Last Filed: 10/14/24 16:24> Vital Signs Vital Signs: Vital Signs Temperature 36.7 C 10/14/24 14:59 Pulse Rate 65 10/14/24 14:59 Respiratory Rate 20 10/14/24 14:59 Blood Pressure 123/83 10/14/24 14:59 Pulse Oximetry 97 10/14/24 14:59 Oxygen Delivery Nasal Cannula 10/14/24 14:59 Oxygen Flow Rate 3 10/14/24 14:59 Temperature 36.7 C 10/14/24 15:20 Pulse Rate 65 10/14/24 16:05 Respiratory Rate 18 10/14/24 16:05 Blood Pressure 101/71 10/14/24 16:05 Pulse Oximetry 100 10/14/24 16:05 Oxygen Delivery Nasal Cannula 10/14/24 14:59 Oxygen Flow Rate 3 10/14/24 14:59 <Anamika Freire, FOOD ASSEMBLER [employer] - Last Filed: 10/14/24 16:24> Vital Signs Temperature 36.7 C 10/14/24 14:59 Pulse Rate 65 10/14/24 14:59 Respiratory Rate 20 10/14/24 14:59 Blood Pressure 123/83 10/14/24 14:59 Pulse Oximetry 97 10/14/24 14:59 Oxygen Delivery Nasal Cannula 10/14/24 14:59 Oxygen Flow Rate 3 10/14/24 14:59 Temperature 36.7 C 10/14/24 15:20 Pulse Rate 65 10/14/24 16:05 Respiratory Rate 18 10/14/24 16:05 Blood Pressure 101/71 10/14/24 16:05 Pulse Oximetry 100 10/14/24 16:05 Oxygen Delivery Nasal Cannula 10/14/24 14:59 Oxygen Flow Rate 3 10/14/24 14:59 <Rodney Hernandez MD - Last Filed: 10/14/24 16:24> Imaging Data Attestation: I personally reviewed and interpreted this imaging study as follows: <Anamika Freire, FOOD ASSEMBLER [employer] - Last Filed: 10/14/24 16:24> Radiologist's impression: Impressions Chest X-Ray 10/14/24 16:03 IMPRESSION: Coarse interstitial lung markings, without focal infiltrate or effusion. Abdomen X-Ray 10/14/24 16:04 IMPRESSION: Gastrostomy tube in good position and ready for immediate use. <Anamika Freire APRN - Last Filed: 10/14/24 16:24> Discharge Plan Discharge Clinical Impression: Gastrojejunostomy tube dislodgement <Anamika Freire APRN - Last Filed: 10/14/24 16:24> Patient Disposition: NH Skilled Nursing/Asst Living <Anamika Freire APRN - Last Filed: 10/14/24 16:24> Condition: Stable <Anamika Freire APRN - Last Filed: 10/14/24 16:24> Instructions: Antibiotic Form <Anamika Freire APRN - Last Filed: 10/14/24 16:24> Additional Instructions: Please return to the ER with any worsening symptoms. Follow-up with primary care provider as needed. Take all regularly scheduled medications as prescribed. <Anamika Freire APRN - Last Filed: 10/14/24 16:24> Patient Language: Thai <Anamika Freire APRN - Last Filed: 10/14/24 16:24> Prescriptions: No Action nitroglycerin 400 mcg/spray spray,non-aerosol 1 spray translingual Q5M PRN (Reason: Chest Pain) Rx Instructions: do not exceed 3 doses per episode Trelegy Ellipta 100-62.5-25 mcg blister with device 1 inh INHALATION DAILY albuterol sulfate 2 puff inhalation Q4H PRN (Reason: Shortness Of Breath) ipratropium-albuterol 1 vial inhalation TID bisacodyl 10 mg Suppository 10 mg RECTAL DAILY PRN (Reason: Constipation) Rx Instructions: give if milk of magnesia doesn't work Fleet Enema 19-7 gram/118 mL Enema 118 ml RECTAL ONCE Rx Instructions: give if no results 1 day after suppository naloxone 4 mg/actuation Jensen,Non-Aerosol 4 mg INTRANASAL Q2M Rx Instructions: spray 1 dose into ONE nostril; alternate nostrils w each dose until help arrives acetaminophen [Nortemp] 160 mg/5 mL Suspension 650 mg feeding tube Q6H PRN (Reason: Pain Rated 1-3) Qty: 120 0RF polyethylene glycol 3350 [Miralax] 17 gram Powder In Packet 17 g feeding tube QAM PRN (Reason: Constipation) Qty: 30 0RF hydrocodone-acetaminophen 5-325 mg Tablet 1 tablet feeding tube Q6H PRN (Reason: Pain rated 4-10) Qty: 10 0RF levothyroxine 25 mcg Tablet 37.5 mcg feeding tube DAILY@0630 Qty: 45 0RF amoxicillin-pot clavulanate 875-125 mg tablet 1 tablet feeding tube Q12H Qty: 5 0RF polysaccharide iron complex 150 mg iron Capsule 150 mg feeding tube BID Qty: 60 0RF magnesium hydroxide [Milk of Magnesia] 400 mg/5 mL Suspension 400 mg feeding tube DAILY PRN (Reason: Constipation) Qty: 355 0RF Rx Instructions: give if no BM in 3 days baclofen 10 mg tablet 5 mg feeding tube TID PRN (Reason: muscle spasms) Qty: 30 0RF simvastatin 20 mg tablet 20 mg feeding tube DAILY Qty: 30 0RF levothyroxine [Synthroid] 150 mcg Tablet 150 mcg feeding tube DAILY@0630 Qty: 30 0RF magnesium citrate [Citroma] Solution 300 ml feeding tube DAILY PRN (Reason: Constipation) Qty: 296 0RF Rx Instructions: give if no results from enema aspirin 81 mg Tablet,Chewable 81 mg feeding tube DAILY Qty: 30 0RF escitalopram oxalate 20 mg Tablet 20 mg feeding tube QHS Qty: 30 0RF Saccharomyces boulardii 250 mg Capsule 250 mg feeding tube BID Qty: 30 0RF Rx Instructions: stop 04/03/24 Mucinex 600 mg G-tube BID Qty: 60 0RF Rx Instructions: Ends 24 benzonatate 100 mg G-tube Q8H PRN (Reason: Cough) Qty: 20 0RF omeprazole 40 mg G-tube BID Qty: 60 0RF sodium chloride 500 mg G-tube BID Qty: 60 0RF alprazolam 1 mg tablet 1 mg feeding tube TID PRN (Reason: anxiety) Qty: 10 0RF <Anamika Freire APRN - Last Filed: 10/14/24 16:24> Follow-up/Referrals: PHYSICIAN NOT ON STAFF,NONSTAFF [Primary Care Provider] - <Anamika Freire APRN - Last Filed: 10/14/24 16:24> Stand Alone Forms: Senior Care Discharge <Anamika Freire APRN - Last Filed: 10/14/24 16:24> Time of Disposition: 16:22 <Anamika Freire APRN - Last Filed: 10/14/24 16:24> 16:22 <Rodney Hernandez MD - Last Filed: 10/14/24 16:24>
--- OUTSIDE RECORDS SUMMARY | 2024-10-14 15:14 | XMS_ITS ---
Author Organization 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 Patient was referred to [facility], he saw Dr. Martinez and Dr. Kumar, [...] in situ. He was referred to [facility] and there was evaluated by thoracic surg [...]
--- OUTSIDE RECORDS SUMMARY | 2024-10-14 15:14 | XMS_ITS | Referral Summary ---
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 Patient was referred to [facility], he saw Dr. Martinez and Dr. [...] in situ. 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 Advance Directives For more information, please contact: [phone] * Full Code (Latest Code Status on File) Date Activated Date Inactivated Comments 10/26/2019 8:41 AM 01/13/2020 12:53 PM Care Teams Sod Cutter Relationship Specialty Start Date End Date Dimitris Burrows PA [facility] [place] [address] PCP - General Internal Medicine 09/19/23
--- OUTSIDE RECORDS SUMMARY | 2024-10-14 15:14 | XMS_ITS | Clinical Summary ---
Author Organization [facility] Address [address] [place] [address] Care Team Providers Care Qa Test Analyst Name Role Phone Elodia Shoemaker TYESHA-SURGICAL ATTENDANT Primary Care Provider + Source Comments [facility],non-owned Affiliates and Associated Physician Practices is amultiple site organization consisting of ambulatory clinics and hospital sitesin [place], [place], [place] and [place]. This disclosure is being madepursuant to the Care Everywhere program and may not contain all information available regarding this patient. Last updated 18.[facility] Allergies Active Allergy Reactions Criticality Noted Date Comments Atorvastatin Myalgias,Nausea and/ or Vomiting,Unknown Medium 05/11/2017 Methocarbamol Diarrhea Low 11/08/2013 Terbinafine Diarrhea,Other Low 10/24/2014 Medications * Be aware that medications may not be up to date on this document. Alwaysverify current medications with the patient. acetaminophen CR (TYLENOL ARTHRITIS PAIN) 650 MG tablet Take 1 tablet by mouth once daily Active ALPRAZolam (XANAX) 1 MG tablet Take 1 tablet by mouth 3 times daily as needed 8 Active amLODIPine (NORVASC) 2.5 MG tablet Take 2.5 mg by mouth once daily 0 Active aspirin EC (ECOTRIN) 81 MG tablet Take 81 mg by mouth once daily 1 Active atorvastatin (LIPITOR) 10 MG tablet Take 5 mg by mouth 3 times daily Active carvedilol (COREG) 3.125 MG tablet Take 1 tablet by mouth 2 times daily 8 Active diclofenac (FLECTOR) 1.3 % patch Apply 1 patch to skin 2 times daily Active diclofenac sodium (VOLTAREN) 1 % gel Apply to affected area 4 times daily Active escitalopram (LEXAPRO) 20 MG tablet Take 20 mg by mouth once daily 0 Active esomeprazole (NEXIUM) 40 MG capsule Take 40 mg by mouth once daily 0 Active HYDROcodone-acet aminophen (NORCO) 10-325 MG tablet Take 1 tablet by mouth every 6 hours as needed 8 Active albuterol-ipratr opium (COMBIVENT RESPIMAT) 20-100 MCG/ACT inhaler Inhale 2 puffs by mouth 2 times daily Active isosorbide mononitrate CR 24hr (IMDUR) 60 MG tablet Take 60 mg by mouth once daily 8 Active levothyroxine (SYNTHROID) 125 MCG tablet Take 125 mcg by mouth once daily 9 Active lisinopril (PRINIVIL;ZESTRI L) 5 MG tablet Take 5 mg by mouth once daily 5 Active Multiple Vitamin (MULTI-VITAMIN) TABS Take 1 tablet by mouth once daily Active nitroGLYCERIN (NITROLINGUAL) 0.4 MG/SPRAY spray Dissolve 1 spray under the tongue as needed 0 Active ranolazine ER 12hr (RANEXA) 500 MG tablet Take 500 mg by mouth 2 times daily 0 Active simvastatin (ZOCOR) 20 MG tablet Take 1 tablet by mouth at bedtime 0 Active traMADol (ULTRAM) 50 MG tablet Take 50 mg by mouth every 6 hours as needed 0 Active cyanocobalamin (VITAMIN B-12) 1000 MCG tablet Take 1,000 mcg by mouth once daily Active Ergocalciferol (VITAMIN D2) 10 MCG (400 UNIT) Take 400 Units by mouth once daily Active TRELEGY ELLIPTA 100-62.5-25 MCG/INH Inhale 1 puff by mouth once daily 0 Active linaCLOtide (LINZESS) 290 MCG capsule Take [...] at Not on file 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 Gender Identity Not on file Sexual Orientation Not on file Occupation Industry Job Start Date Job End Date Retired Not on file Not on file Not on file Last Filed Vital Signs [...] 2:19 PM CDT Height 177.8 cm (5' 10) 09/16/2020 2:19 PM CDT Body Mass Index [...] AAA SCREENING 2017 COVID-19 VACCINE (1 - 4- season) 2024 DEPRESSION SCREENING 05/02/2024 INFLUENZA VACCINE (Season Ended) 2024 03/04/2020, 05/17/2019, 01/26/2018, Additional history exists Respiratory Syncytial Virus (RSV) Vaccine Pt: or [...] complete this topic MENINGOCOCCAL (Group B) VACCINE SHARED DECISION-MAKING Aged Out No longer eligible based on patient's age to complete this topic MENINGOCOCCAL GROUPS A/C/Y/W VACCINE Aged Out No longer eligible based on patient's age to complete this topic Insurance MEDICARE [employer] [employer] [address] SELF PAY NO INSURANCE Member Subscriber Plan / Payer (Ef fective for All Dates) Name:Alexia Bergeron Member ID:Not on file Relation to Subscriber:Not on file Name:ALEXIA BERGERON Subscriber ID:Not on file (Home) Address: [address] [place] [id number] Payer ID:Not on file Group ID:Not on file Type:Self Pay Address: [place], [place] MEDICARE MEDICARE Care Teams Qa Test Analyst Relationship Specialty Start Date End Date Elodia Shoemaker APRN-CNP [address] [address] PCP - General 03/16/22
--- OUTSIDE RECORDS SUMMARY | 2024-10-14 15:14 | XMS_ITS | Clinical Summary ---
Author Organization [facility] Address [address] [place] [address] Phone Care Team Providers Care Lithopress Operator Name Role Phone Elodia Shoemaker Primary Care Provider [phone] Allergies Active Allergy Reactions Criticality Noted Date [...] tablet Take 125 mcg by mouth daily head rigger. 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 Gender Identity Not on file Sexual Orientation Not on file Last Filed Vital Signs Vital Sign Reading Time Taken Comments Blood Pressure 130/70 01/08/2019 1:00 PM CDT Pulse 85 01/08/2019 1:00 PM CDT Temperature - - Respiratory Rate - - Oxygen Saturation 94% 05/11/2017 11:23 AM CONVEYOR WORKER Inhaled Oxygen Concentration - - Weight 71.8 kg (158 lb 3.2 oz) 01/08/2019 1:00 P M CDT Height 177.8 cm (5' 10) 01/08/2019 1:00 PM CDT Body Mass Index [...] 12/14/2025 Insurance MEDICARE PART A AND B [facility] [place] [facility] RX [employer] RX Member Subscriber Plan / Payer (Ef fective for All Dates) Name:Cecilio Bergeron Relation to Subscriber:Self Name:Cecilio Bergeron Payer ID:Not on file Group ID:[id number] Type:RX Medicare Part D Address: [place] RX [employer] MEDICARE PART A AND [place] [facility] [place] [address] Care Teams Lithopress Operator Relationship Specialty Start Date End Date Elodia Shoemaker ANP [address] [phone] PCP - General NURSE PRACTITIONER 01/28/17
--- OUTSIDE RECORDS SUMMARY | 2024-10-14 15:14 | XMS_ITS ---
Author Name Auto Generated, Auto Generated Organization [facility] Address [address] [place] [address] Phone [phone] Care Team Providers Care Hedge Trimmer Name Role Phone Shikha Gan Unavailable Edita Boo Unavailable [phone] Functional Status No Results Mental Status No Results Allergies and Intolerances Name Onset Date Reaction Severity methocarbamol (Allergy) TueJan 31 16:47:00 EDT 2022 terbinafine HCl (Allergy) TueJan 31 16:34:00 ED T 2022 Robaxin (Allergy) TueJan 31 16:34:00 EDT 2022 atorvastatin (Allergy) TueJan 31 16:34:00 EDT 2 023 Encounters Program Name Primary Diagnosis Admission Date/Time Dis charge Date/Time [facility] TueFeb 21 14:00:00 EDT 2023Mar 07 10:20:00 EST 2023 Immunizations Name Dates Status TST-PPD intradermal Gin Feb 22 01:00:00 EDT 2023 Completed TST-PPD intradermal Sat Feb 24 01:00:00 EDT 2023 Completed TST-PPD intradermal Sat Mar 03 01:00:00 EDT 2023 Completed TST-PPD intradermal Gin Mar 01 01:00:00 EDT 2023 Completed Medications Medication Directions Start Date End Date levothyroxine 175 mcg tablet 1 tab TABLET Oral 1 Time Daily Indication: Thyroid TueMar 05 10:42:00 EST 2023Mar 05 10:45:00 EST 2023 levothyroxine 175 mcg tablet 1 tab TABLET Oral 1 Time Daily Indication: Thyroid TueMar 05 10:45:00 EST 2023Mar 07 01:00:00 EST 2023 ipratropium 0.5 mg-albuteroL 3 mg (2.5 mg base)/3 mL nebulization soln 1 vial AMPUL FOR NEBULIZATION (ML) Nebulization 3 Times Daily Indication: COPD TueMar 02 11:00:00 EDT 2023Mar 07 01:00:00 EST 2023 Mucus Relief ER 600 mg tablet, extended release 1 tablet TABLET, EXTENDED RELEASE 12 HR Oral 2 Times Daily Indication: Congestion TueMar 02 18:00:00 EDT 2023Mar 07:00:00 EST 2023 benzonatate 100 mg capsule 1 capsule CAP JASWANT Oral PRN 3 Times Daily Indication: Cough TueMar 02 18:00:00 EDT 2023Mar 07:00:00 EST 2023 Santyl Collagenase Ointment 30 GM apply to sacrum Topical 1 Time Daily Indication: Wound [facility] Mar 01 07:32:00 EDT 2023Mar 07 01:00:00 EST 2023 TubersoL 5 tub. unit/0.1 mL intradermal injection solution Read Results VIAL (ML) Other 1 Time Weekly for 2 Weeks Indication: . Read results between 48-72 hours after 1st and 2nd (1 week apart). If positive do chest x-ray. [facility] Mar 01 07:39:00 2023Mar 07:00:00 EST 2023 TubersoL 5 tub. unit/0.1 mL intradermal injection solution 0.1 ml VIAL (ML) Intradermal 1 Time Weekly for 2 Weeks Indication: . 1st injection on admission, then one week after. Read between 48 and 72 hours [facility] Mar 01 07:40:00 EDT 2023Mar 07:00:00 EST 2023 Niferex (Sumalate-Quatrefolic) 150 mg iron-60 mg-1 mg tablet 1 cap TABLET Oral 2 Times Daily Indication: Supplment [facility] Mar 01 13:04:00 ED2023Mar 07 01:00:00 EST 2023 omeprazole 40 mg capsule,delayed release 1 cap CAPSULE,DELAYED RELEASE (ENTERIC COATED) Oral 2 Times Daily Indication: GI bleed TueFeb 28 13:42:00 EDT 2023Mar 07 01:00:00 EST 2023 Trelegy Ellipta 100 mcg-62.5 mcg-25 mcg powder for inhalation 1 puff BLISTER, WITH INHALATION DEVICE Inhalation 1 Time Daily Indication: Asthma. Rinse mouth out after use to avoid oral thrush from developing. TueFeb 27 16:30:00 ED2023Mar 07 01:00:00 EST 2023 ALPRAZolam 1 mg tablet 1 tablet TABLET O ral PRN 3 Times Daily for 90 Days Indication: Anxiety TueFeb 27 16:30:00 EDT 2023Mar 07 01:00:00 EST 2023 acetaminophen 325 mg tablet 650 mg TABLE T Oral PRN Every 6 Hours Indication: pain TueFeb 26 06:30:00 EDT 2023Mar 07 01:00:00 EST 2023 sodium chloride 1,000 mg soluble tablet 1 tab TABLET, SOLUBLE Oral 3 Times Daily Indication: hyponatremia TueFeb 27 09:00:00 EDT 2023Mar 07 01:00:00 EST 2023 potassium chloride ER 20 mEq tablet,extended release 1 tab TABLET, EXTENDED RELEASE Oral 1 Time Daily Indication: hypokalemia TueFeb 23 09:00:00 EDT 2023Mar 07 01:00:00 EST 2023 ferrous sulfate 325 mg (65 mg iron) tablet,delayed release 1 tablet TABLET, DELAYED RELEASE (ENTERIC COATED) Oral 2 Times Daily Indication: Anemia Take with food. TueFeb 22 13:00:00 ED2023Mar 01 13:05:00 EDT 2023 albuterol sulfate 2.5 mg/3 mL (0.083 %) solution for nebulization as directed VIAL, NEBULIZER (ML) Inhalation PRN Every 6 Hours Indication: . COPD TueFeb 22 13:00:00 2023Mar 07 01:00:00 EST 2023 TubersoL 5 tub. unit/0.1 mL intradermal injection solution 0.1 ml VIAL (ML) Intradermal 1 Time Weekly for 2 Weeks Indication: . 1st injection on admission, then one week after. Read between 48 and 72 hours TueFeb 21 17:30:00 EDT 2023Mar 01 07:41:00 EDT 2023 TubersoL 5 tub. unit/0.1 mL intradermal injection solution Read Results VIAL (ML) Other 1 Time Weekly for 2 Weeks Indication: . Read results between 48-72 hours after 1st and 2nd (1 week apart). If positive do chest x-ray. TueFeb 21 17:30:00 EDT 2023Mar 01 07:40:00 EDT 2023 ferrous sulfate 325 mg (65 mg iron) tablet,delayed release 1 tablet TABLET, DELAYED RELEASE (ENTERIC COATED) Oral 2 Times Daily Indication: Anemia TueFeb 21 18:20:00 EDT 2023Feb 22 13:06:00 EDT 2023 fluconazole 50 mg tablet 1 tablet TABLET Oral 2 Times Daily for 10 Days Indication: Antifungal TueFeb 21 18:20:00 EDT 2023Feb 21 19:14:00 EDT 2023 baclofen 5 mg tablet 1 tablet TABLET Ora l PRN 3 Times Daily Indication: Muscle spams TueFeb 21 18:20:00 EDT 2023Mar 07 01:00:00 EST 2023 simvastatin 20 mg tablet 1 tablet TABLET Oral 1 Time Daily Indication: HLD TueFeb 21 18:20:00 EDT 2023Mar 07 01:00:00 EST 2023 Trelegy Ellipta 100 mcg-62.5 mcg-25 mcg powder for inhalation 1 puff BLISTER, WITH INHALATION DEVICE Inhalation 1 Time Daily Indication: Asthma TueFeb 21 18:50:00 EDT 2023Feb 27 16:51:00 EDT 2023 escitalopram 20 mg tablet 1 tablet TABLE T Oral 1 Time Daily Indication: Depression TueFeb 21 18:50:00 EDT 2023Mar 07 01:00:00 EST 2023 ranolazine ER 500 mg tablet,extended release,12 hr 1 tablet TABLET, EXTENDED RELEASE 12 HR Oral 2 Times Daily Indication: Angina TueFeb 21 18:50:00 EDT 2023Mar 07 01:00:00 EST 2023 albuterol sulfate HFA 90 mcg/actuation aerosol inhaler 1 inhalation HFA AEROSOL WITH ADAPTER (GRAM) Inhalation PRN Every 4 Hours Indication: SOB TueFeb 21 19:00:00 EDT 2023Feb 22 19:01:00 EDT 2023 ALPRAZolam 1 mg tablet 1 tablet TABLET O ral PRN 3 Times Daily Indication: Anxiety TueFeb 21 19:00:00 EDT 2023Feb 27 16:53:00 EDT 2023 fluconazole 50 mg tablet 1 tablet TABLET Oral 2 Times Daily for 10 Days Indication: Antifungal TueFeb 22 07:00:00 EDT 2023Mar 04 06:59:00 EST 2023 aspirin 81 mg chewable tablet 2 tablet TABLET,CHEWABLE Oral 1 Time Daily Indication: Heart health TueMar 01 02:00:00 EDT 2023Feb 28 13:43:00 EDT 2023 nitroglycerin 400 mcg/spray translingual 1 SPRAY SPRAY, NON-AEROSOL (GRAM) Sublingual PRN Every 5 Minutes Indication: chest pain up to 3 doses per episode TueFeb 21 02:00:00 EDT 2023Mar 07 01:00:00 EST 2023 azithromycin 250 mg tablet 250 mg TABLET Oral 1 Time Daily for 4 Days Indication: Pneumonia TueFeb 18 03:30:00 EDT 2022Feb 21 01:00:00 EDT 2022 azithromycin 250 mg tablet 500 mg TABLET Oral 1 Time Daily for 1 Day Indication: Pneumonia TueFeb 17 23:30:00 EDT 2022Feb 18 23:29:00 EDT 2022 azithromycin 250 mg tablet 250 mg TABLET Oral 1 Time Daily for 4 Days Indication: Pneumonia TueFeb 18 23:30:00 EDT 2022Feb 18 03:57:00 EDT 2022 amoxicillin 875 mg-potassium clavulanate 125 mg tablet 1 tablet TABLET Oral 2 Times Daily for 5 Days Indication: Pneumonia TueFeb 17 21:00:00 EDT 2022Feb 21 01:00:00 EDT 2022 omeprazole 40 mg capsule,delayed release 40 mg CAPSULE,DELAYED RELEASE (ENTERIC COATED) Oral 1 Time Daily Indication: GERD TueFeb 08 01:30:00 EDT 2022Feb 21 01:00:00 EDT 2022 TubersoL 5 tub. unit/0.1 mL intradermal injection solution Read Results VIAL (ML) Other 1 Time Weekly for 2 Weeks Indication: . Read results between 48-72 hours after 1st and 2nd (1 week apart). If positive do chest x-ray. TueFeb 03 09:00:00 EDT 2022Feb 17 08:59:00 EDT 2022 TubersoL 5 tub. unit/0.1 mL intradermal injection solution 0.1 ml VIAL (ML) Intradermal 1 Time Weekly for 2 Weeks Indication: . 1st injection on admission, then one week after. Read between 48 and 72 hours TueFeb 01 09:00:00 EDT 2022Feb 15 08:59:00 EDT 2022 Ventolin HFA 90 mcg/actuation aerosol inhaler 2 puffs HFA AEROSOL WITH ADAPTER (GRAM) Inhalation PRN Every 4 Hours Indication: SOB TueFeb 01 04:00:00 EDT 2022Feb 21 01:00:00 EDT 2022 ALPRAZolam 1 mg tablet 1MG TABLET Oral P RN 3 Times Daily Indication: ANXIETY TueFeb 01 09:00:00 EDT 2022Feb 21 01:00:00 EDT 2022 escitalopram 20 mg tablet 20MG TABLET Or al 1 Time Daily Indication: depression TueFeb 01 17:00:00 EDT 2022Feb 21 01:00:00 EDT 2022 acetaminophen 325 mg tablet 2 TABLETS TA BLET Oral PRN Every 4 Hours Indication: . 2 TABLETS= 650MG*DO NOT EXCEED 3GM APAP/DAY FROM ALL SOURCES* TueJan 31 16:40:00 EDT 2022Feb 21 01:00:00 EDT 2022 oxyCODONE-acetaminophen 10 mg-325 mg tablet 1 TABLET TABLET Oral PRN Every 4 Hours Indication: SEVERE PAIN *DO NOT EXCEED 3GM APAP/DAY FROM ALL SOURCES* TueJan 31 16:40:00 EDT 2022Jan 31 19:38:00 EDT 2022 oxyCODONE-acetaminophen 5 mg-325 mg tablet 1 TABLET TABLET Oral PRN Every 4 Hours Indication: MODERATE PAIN *DO NOT EXCEED 3GM APAP/DAY FROM ALL SOURCES* TueJan 31 16:40:00 EDT 2022Jan 31 19:47:00 EDT 2022 diphenhydrAMINE 50 mg/mL injection solution 25MG VIAL (ML) Intravenous PRN Every 6 Hours Indication: ITCHING/PRURITUS TueJan 31 16:40:00 EDT 2022Jan 31 20:56:00 EDT 2022 ondansetron HCL 2 mg/mL intravenous solution 2ML VIAL (ML) Intravenous PRN Every 4 Hours Indication: NAUSEA/VOMITING TueJan 31 16:40:00 EDT 2022Jan 31 19:13:00 EDT 2022 zolpidem 5 mg tablet 2.5MG TABLET Oral P RN Hour Of Sleep Indication: INSOMNIA (0.5 TABLET= 2.5MG) TueJan 31 16:40:00 EDT 2022Jan 31 20:22:00 EDT 2022 HYDROcodone 10 mg-acetaminophen 325 mg tablet 1 TABLET TABLET Oral PRN Every 4 Hours for 3 Days Indication: PAIN *DO NOT EXCEED 3GM APAP/DAY FROM ALL SOURCES* TueJan 31 16:40:00 EDT 2022Jan 31 19:38:00 EDT 2022 ALPRAZolam 1 mg tablet 1MG TABLET Oral P RN 3 Times Daily Indication: ANXIETY TueJan 31 16:40:00 EDT 2022Feb 01 17:27:00 EDT 2022 aspirin 81 mg chewable tablet 81MG TABLET,CHEWABLE Oral 1 Time Daily Indication: heart health TueJan 31 16:40:00 EDT 2022Feb 21 01:00:00 EDT 2022 baclofen 10 mg tablet 5MG TABLET Oral MN N 3 Times Daily Indication: MUSCLE SPASMS (0.5 TABLET= 5MG) TueJan 31 16:40:00 EDT 2022Feb 21 01:00:00 EDT 2022 doxycycline hyclate 100 mg capsule 100MG CAPSULE Oral 2 Times Daily for 7 Days Indication: ear infection TueJan 31 16:40:00 EDT 2022Feb 07 16:39:00 EDT 2022 escitalopram 20 mg tablet 20MG TABLET Or al 1 Time Daily Indication: depression TueJan 31 16:40:00 EDT 2022Feb 01 17:33:00 EDT 2022 esomeprazole magnesium 40 mg capsule,delayed release 40MG CAPSULE,DELAYED RELEASE (ENTERIC COATED) Oral 1 Time Daily Indication: . BEFORE BREAKFAST TueJan 31 16:40:00 EDT 2022Feb 08 01:31:00 EDT 2022 Trelegy Ellipta 100 mcg-62.5 mcg-25 mcg powder for inhalation 1 PUFF BLISTER, WITH INHALATION DEVICE Inhalation 1 Time Daily Indication: COPD TueJan 31 16:40:00 EDT 2022Feb 21 01:00:00 EDT 2022 gentamicin 0.1 % topical ointment 1 APPLICATION OINTMENT (GRAM) Topical 2 Times Daily Indication: apply to ear TueFeb 01 16:40:00 EDT 2022Feb 21 01:00:00 EDT 2022 levothyroxine 175 mcg tablet 175MCG TABLET Oral 1 Time Daily Indication: . BEFORE BREAKFAST TueJan 31 16:40:00 EDT 2022Feb 21 01:00:00 EDT 2022 ranolazine ER 500 mg tablet,extended release,12 hr 500MG TABLET, EXTENDED RELEASE 12 HR Oral Every 12 Hours Indication: chest pain TueJan 31 16:40:00 EDT 2022Feb 21 01:00:00 EDT 2022 simvastatin 20 mg tablet 20MG TABLET Ora l Hour Of Sleep Indication: hyperlipidemia TueJan 31 16:40:00 EDT 2022Feb 21 01:00:00 EDT 2022 hydrOXYzine pamoate 50 mg capsule 1 tab CAPSULE Oral PRN Every 4 Hours Indication: every 4-6 hrs prn or at bedtime TueJan 31 13:00:00 EDT 2022Feb 21 01:00:00 EDT 2022 ibuprofen 400 mg tablet 800MG TABLET Ora l 3 Times Daily Indication: MILD PAIN must take with food (2 TABLETS= 800MG) TueFeb 01 09:00:00 EDT 2022Feb 21 01:00:00 EDT 2022 oxyCODONE-acetaminophen 7.5 mg-325 mg tablet 1-2 TABS TABLET Oral PRN Every 4 Hours Indication: MODERATE PAIN *DO NOT EXCEED 3GM APAP/DAY FROM ALL SOURCES* TueJan 31 13:00:00 EDT 2022Feb 21 01:00:00 EDT 2022 Problems Active Concerns * Other displaced fracture of upper end of right humerus, subsequent encounter for fracture with nonunion* Code: * Start Date: TueJan 31 00:00:00 EDT 2022 * End Date: * Text: * Presence of aortocoronary bypass graft* Code: * Start Date: TueJan 31 00:00:00 EDT 2022 * End Date: * Text: * Presence of artificial knee joint, bilateral* Code: * Start Date: TueJan 31 00:00:00 EDT 2022 * End Date: * Text: * Acquired absence of lung [part of]* Code: * Start Date: TueJan 31 00:00:00 EDT 2022 * End Date: * Text: * Nicotine dependence, cigarettes, uncomplicated* Code: * Start Date: TueJan 31 00:00:00 EDT 2022 * End Date: * Text: * Depression, unspecified* Code: * Start Date: TueJan 31 00:00:00 EDT 2022 * End Date: * Text: * Anxiety disorder, unspecified* Code: * Start Date: TueJan 31 00:00:00 EDT 2022 * End Date: * Text: * Migraine, unspecified, not intractable, without status migrainosus* Code: * Start Date: TueJan 31 00:00:00 EDT 2022 * End Date: * Text: * Basal cell carcinoma of skin of left ear and external auricular canal* Code: * Start Date: TueJan 31 00:00:00 EDT 2022 * End Date: * Text: * Unspecified rotator cuff tear or rupture of right shoulder, not specified as traumatic* Code: * Start Date: TueJan 31 00:00:00 EDT 2022 * End Date: * Text: * Personal history of other malignant neoplasm of bronchus and lung* Code: * Start Date: TueJan 31 00:00:00 EDT 2022 * End Date: * Text: * [employer] (current) use of aspirin* Code: * Start Date: TueJan 31 00:00:00 EDT 2022 * End Date: * Text: * Gastro-esophageal reflux disease without esophagitis* Code: * Start Date: TueJan 31 00:00:00 EDT 2022 * End Date: * Text: * Rhabdomyolysis* Code: * Start Date: TueFeb 21 00:00:00 EDT 2023 * End Date: * Text: * Acute respiratory failure with hypoxia* Code: * Start Date: TueFeb 21 00:00:00 EDT 2023 * End Date: * Text: * Chronic obstructive pulmonary disease, unspecified* Code: * Start Date: TueFeb 21 00:00:00 EDT 2023 * End Date: * Text: * Other esophagitis without bleeding* Code: * Start Date: TueFeb 21 00:00:00 EDT 2023 * End Date: * Text: * Personal history of colon polyps, unspecified* Code: * Start Date: TueFeb 21 00:00:00 EDT 2023 * End Date: * Text: * Acute posthemorrhagic anemia* Code: * Start Date: TueFeb 21 00:00:00 EDT 2023 * End Date: * Text: * Pneumonia, unspecified organism* Code: * Start Date: TueFeb 21 00:00:00 EDT 2023 * End Date: * Text: * Chronic obstructive pulmonary disease with (acute) lower respiratory infection * Code: * Start Date: TueFeb 21 00:00:00 EDT 2023 * End Date: * Text: * Dysphagia, pharyngeal phase* Code: * Start Date: TueFeb 21 00:00:00 EDT 2023 * End Date: * Text: * Hypo-osmolality and hyponatremia* Code: * Start Date: TueFeb 21 00:00:00 EDT 2023 * End Date: * Text: * Hypokalemia* Code: * Start Date: TueFeb 21 00:00:00 EDT 2023 * End Date: * Text: * Personal history of malignant neoplasm of thyroid* Code: * Start Date: TueFeb 21 00:00:00 EDT 2023 * End Date: * Text: * Postprocedural hypothyroidism* Code: * Start Date: TueFeb 21 00:00:00 EDT 2023 * End Date: * Text: * Atherosclerotic heart disease of [place] coronary artery without angina pectoris* Code: * Start Date: TueFeb 21 00:00:00 EDT 2023 * End Date: * Text: * Hyperlipidemia, unspecified* Code: * Start Date: TueFeb 21 00:00:00 EDT 2023 * End Date: * Text: * Alcohol abuse, in remission* Code: * Start Date: TueFeb 21 00:00:00 EDT 2023 * End Date: * Text: * Personal history of (healed) traumatic fracture* Code: * Start Date: TueFeb 21 00:00:00 EDT 2023 * End Date: * Text: * Presence of other bone and tendon implants* Code: * Start Date: TueFeb 21 00:00:00 EDT 2023 * End Date: * Text: * Altered mental status, unspecified* Code: * Start Date: TueMar 07 00:00:00 EST 2023 * End Date: * Text: * Hypotension, unspecified* Code: * Start Date: TueMar 07 00:00:00 EST 2023 * End Date: * Text: * Estela Hernandes will be involved in discharge planning.* Code: * Start Date: TueMar 01 00:00:00 EDT 2023 * End Date: * Text: Estela Hernandes will be involved in discharge planning. * Estela Hernandes has a dx of depression and is currently on an antidepressant.* Code: * Start Date: TueMar 01 00:00:00 EDT 2023 * End Date: * Text: Estela Hernandes has a dx of depression and is currently on an antidepressant. * Estela Hernandes's mobility level is different than prior level due to current medical condition.* Code: * Start Date: TueMar 01 00:00:00 EDT 2023 * End Date: * Text: Estela Arteaga mobility level is different than prior level due to current medical condition. * KATHLE[employer]ocial Rigoberto Hernandes has family/friends who are supportive.* Code: * Start Date: TueMar 01 00:00:00 EDT 2023 * End Date: * Text: KATHLE[employer] Rigoberto Hernandes has family/friends who are supportive. * KATHLEENSocial Rigoberto Hernandes will be involved in goal development to the best of his or her ability.* Code: * Start Date: TueMar 01 00:00:00 EDT 2023 * End Date: * Text: Estela Hernandes will be involved in goal development to the best of his or her ability. * KATHLE[employer]ocial Rigoberto Hernandes's wishes will be followed (Advanced Directive/Code Status).* Code: * Start Date: TueMar 01 00:00:00 EDT 2023 * End Date: * Text: Estela Hernandes's wishes will be followed (Advanced Directive/Code Status). * [id number] Cecilio receives a therapeutic & mechanically altered diet. (12)* Code: * Start Date: TueMar 01 00:00:00 EDT 2023 * End Date: * Text: [id number] Cecilio receives a therapeutic & mechanically altered diet. (12) Resolved Concerns * Problem Emphysema, unspecified* Code: * Start Date: TueJan 31 00:00:00 EDT 2022 * End Date: TueFeb 16 00:00:00 EDT 2023 * Problem Candidal esophagitis* Code: * Start Date: TueFeb 21 00:00:00 EDT 2023 * End Date: TueFeb 23 00:00:00 EDT 2023 Vital Signs Vital Sign Measurement Date Body weight 137.60 [lb_av] TueMar 07 12:41 :00 EST 2023 Systolic Blood Pressure 141.00 mm[Hg] TueMar 07 08:51:41 EST 2023 Diastolic Blood Pressure 66.00 mm[Hg] TueMar 07 08:51:41 EST 2023 Pulse Oximetry 96.00 % TueMar 07 08:51 :41 EST 2024 Pulse Oximetry 96.00 % TueMar 07 08:51 :41 EST 4 Heart Rate 62.00 /min TueMar 07 08:51 :41 EST 2023 Body temperature 97.80 [degF] TueMar 07 08:5 1:41 EST 2024 Respiratory rate 20.00 /min TueMar 07 08:5 1:41 EST 4 Systolic Blood Pressure 112.00 mm[Hg] TueMar 07 02:15:44 EST 2023 Diastolic Blood Pressure 60.00 mm[Hg] TueMar 07 02:15:44 EST 2023 Pulse Oximetry 98.00 % TueMar 07 02:15 :44 EST 2023 Pulse Oximetry 98.00 % TueMar 07 02:15 :44 EST 2023 Heart Rate 64.00 /min TueMar 07 02:15 :44 EST 2023 Body temperature 98.20 [degF] TueMar 07 02:1 5:44 EST 4 Respiratory rate 20.00 /min TueMar 07 02:1 5:44 EST 2023 Systolic Blood Pressure 98.00 mm[Hg] TueMar 06 08:38:01 EST 2023 Diastolic Blood Pressure 51.00 mm[Hg] TueMar 06 08:38:01 EST 2023 Pulse Oximetry 99.00 % TueMar 06 08:38 :01 EST 2023 Pulse Oximetry 99.00 % TueMar 06 08:38 :01 EST 2023 Heart Rate 60.00 /min TueMar 06 08:38 :01 EST 2023 Body temperature 98.00 [degF] TueMar 06 08:3 8:01 EST 2023 Respiratory rate 22.00 /min TueMar 06 08:3 8:01 EST 2023 Systolic Blood Pressure 100.00 mm[Hg] TueMar 05 23:57:32 EST 2023 Diastolic Blood Pressure 51.00 mm[Hg] TueMar 05 23:57:32 EST 2023 Pulse Oximetry 92.00 % TueMar 05 23:57 :32 EST 2023 Pulse Oximetry 92.00 % TueMar 05 23:57 :32 EST 2023 Heart Rate 66.00 /min TueMar 05 23:57 :32 EST 2023 Body temperature 98.30 [degF] TueMar 05 23:5 7:32 EST 2023 Respiratory rate 18.00 /min TueMar 05 23:5 7:32 EST 2024 Body weight 138.00 [lb_av] TueMar 05 12:57 :39 EST 2023 Systolic Blood Pressure 107.00 mm[Hg] TueMar 05 09:59:39 EST 2023 Diastolic Blood Pressure 62.00 mm[Hg] TueMar 05 09:59:39 EST 2023 Pulse Oximetry 95.00 % TueMar 05 09:59 :39 EST 2023 Pulse Oximetry 95.00 % TueMar 05 09:59 :39 EST 2023 Heart Rate 69.00 /min TueMar 05 09:59 :39 EST 2023 Body temperature 98.00 [degF] TueMar 05 09:5 9:39 EST 2023 Respiratory rate 20.00 /min TueMar 05 09:5 9:39 EST 2023 Systolic Blood Pressure 104.00 mm[Hg] TueMar 04 23:26:52 EST 2023 Diastolic Blood Pressure 54.00 mm[Hg] TueMar 04 23:26:52 EST 2023 Pulse Oximetry 98.00 % TueMar 04 23:26 :52 EST 2023 Heart Rate 67.00 /min TueMar 04 23:26 :52 EST 2023 Body temperature 97.90 [degF] TueMar 04 23:2 6:52 EST 2023 Respiratory rate 18.00 /min TueMar 04 23:2 6:52 EST 2023 Pulse Oximetry 94.00 % TueMar 04 20:08 :44 EST 2023 Body weight 138.00 [lb_av] TueMar 04 20:05 :02 EST 2023 Systolic Blood Pressure 95.00 mm[Hg] TueMar 04 15:42:51 EST 2023 Diastolic Blood Pressure 51.00 mm[Hg] TueMar 04 15:42:51 EST 2023 Pulse Oximetry 96.00 % TueMar 04 15:42 :51 EST 2023 Pulse Oximetry 96.00 % TueMar 04 15:42 :51 EST 2023 Heart Rate 64.00 /min TueMar 04 15:42 :51 EST 2023 Body temperature 97.90 [degF] TueMar 04 15:4 2:51 EST 2023 Respiratory rate 18.00 /min TueMar 04 15:4 2:51 EST 2023 Systolic Blood Pressure 114.00 mm[Hg] TueMar 04 00:06:01 EDT 2023 Diastolic Blood Pressure 60.00 mm[Hg] TueMar 04 00:06:01 EDT 2023 Pulse Oximetry 97.00 % TueMar 04 00:06 :01 EDT 2023 Pulse Oximetry 97.00 % TueMar 04 00:06 :01 EDT 2023 Heart Rate 97.00 /min TueMar 04 00:06 :01 EDT 2023 Body temperature 98.30 [degF] TueMar 04 00:0 6:01 EDT 2023 Respiratory rate 18.00 /min TueMar 04 00:0 6:01 EDT 2023 Body weight 137.10 [lb_av] TueMar 03 12:25 :48 EDT 2023 Systolic Blood Pressure 110.00 mm[Hg] TueMar 03 10:00:32 EDT 2023 Diastolic Blood Pressure 52.00 mm[Hg] TueMar 03 10:00:32 EDT 2023 Pulse Oximetry 94.00 % TueMar 03 10:00 :32 EDT 2023 Pulse Oximetry 94.00 % TueMar 03 10:00 :32 EDT 2023 Heart Rate 78.00 /min TueMar 03 10:00 :32 EDT 2023 Body temperature 97.70 [degF] TueMar 03 10:0 0:32 EDT 2023 Respiratory rate 20.00 /min TueMar 03 10:0 0:32 EDT 4 Systolic Blood Pressure 112.00 mm[Hg] TueMar 02 23:41:53 EDT 2023 Diastolic Blood Pressure 65.00 mm[Hg] TueMar 02 23:41:53 EDT 2023 Pulse Oximetry 100.00 % TueMar 02 23:41 :53 EDT 2023 Pulse Oximetry 100.00 % TueMar 02 23:41 :53 EDT 4 Heart Rate 66.00 /min TueMar 02 23:41 :53 EDT 2023 Body temperature 98.20 [degF] TueMar 02 23:4 1:53 EDT 4 Respiratory rate 16.00 /min TueMar 02 23:4 1:53 EDT 4 Body weight 136.20 [lb_av] TueMar 02 13:53 :54 EDT 2023 Systolic Blood Pressure 112.00 mm[Hg] TueMar 02 10:07:25 EDT 2023 Diastolic Blood Pressure 79.00 mm[Hg] TueMar 02 10:07:25 EDT 2023 Pulse Oximetry 98.00 % TueMar 02 10:07 :25 EDT 2023 Pulse Oximetry 98.00 % TueMar 02 10:07 :25 EDT 2023 Heart Rate 64.00 /min TueMar 02 10:07 :25 EDT 2023 Body temperature 98.30 [degF] TueMar 02 10:0 7:25 EDT 2023 Respiratory rate 12.00 /min TueMar 02 10:0 7:25 EDT 2023 Systolic Blood Pressure 119.00 mm[Hg] TueMar 02 00:13:04 EDT 2023 Diastolic Blood Pressure 59.00 mm[Hg] TueMar 02 00:13:04 EDT 2023 Pulse Oximetry 94.00 % TueMar 02 00:13 :04 EDT 2023 Heart Rate 56.00 /min TueMar 02 00:13 :04 EDT 2023 Body temperature 98.30 [degF] TueMar 02 00:1 3:04 EDT 2023 Respiratory rate 20.00 /min TueMar 02 00:1 3:04 EDT 2023 Pulse Oximetry 94.00 % Gin Mar 01 23:10 :29 EDT 2023 Systolic Blood Pressure 122.00 mm[Hg] TueMar 01 15:27:17 EDT 2023 Diastolic Blood Pressure 69.00 mm[Hg] TueMar 01 15:27:17 EDT 2023 Pulse Oximetry 98.00 % Gin Mar 01 15:27 :17 EDT 2023 Heart Rate 51.00 /min TueMar 01 15:27 :17 EDT 2023 Body temperature 97.80 [degF] Gin Mar 01 15:2 7:17 EDT 2023 Respiratory rate 22.00 /min Gin Mar 01 15:2 7:17 EDT 2023 Body weight 138.70 [lb_av] TueMar 01 11:47 :44 EDT 2023 Pulse Oximetry 93.00 % TueMar 01 09:24 :25 EDT 2023 Systolic Blood Pressure 121.00 mm[Hg] TueMar 01 09:24:15 EDT 2023 Diastolic Blood Pressure 66.00 mm[Hg] TueMar 01 09:24:15 EDT 2023 Pulse Oximetry 93.00 % TueMar 01 09:24 :15 EDT 2023 Heart Rate 58.00 /min TueMar 01 09:24 :15 EDT 2023 Body temperature 98.00 [degF] Gin Mar 01 09:2 4:15 EDT 2023 Respiratory rate 20.00 /min Gin Oct 31 09:2 4:15 EDT 4 Systolic Blood Pressure 98.00 mm[Hg] Tue 30 22:37:02 EDT 2023 Diastolic Blood Pressure 60.00 mm[Hg] TueFeb 28 22:37:02 EDT 2023 Pulse Oximetry 98.00 % TueFeb 28 22:37 :02 EDT 2023 Heart Rate 54.00 /min TueFeb 28 22:37 :02 EDT 2023 Body temperature 98.20 [degF] TueFeb 28 22:3 7:02 EDT 2023 Respiratory rate 18.00 /min TueFeb 28 22:3 7:02 EDT 2023 Pulse Oximetry 98.00 % Tue 30 20:37 :07 EDT 2023 Systolic Blood Pressure 101.00 mm[Hg] TueFeb 28 17:31:52 EDT 2023 Diastolic Blood Pressure 50.00 mm[Hg] TueFeb 28 17:31:52 EDT 2023 Body weight 139.00 [lb_av] TueFeb 28 12:52 :44 EDT 2023 Systolic Blood Pressure 150.00 mm[Hg] TueFeb 28 08:40:15 EDT 2023 Diastolic Blood Pressure 79.00 mm[Hg] TueFeb 28 08:40:15 EDT 2023 Pulse Oximetry 92.00 % TueFeb 28 08:40 :15 EDT 2023 Pulse Oximetry 92.00 % TueFeb 28 08:40 :15 EDT 2023 Heart Rate 58.00 /min TueFeb 28 08:40 :15 EDT 2023 Body temperature 98.00 [degF] TueFeb 28 08:4 0:15 EDT 2023 Respiratory rate 20.00 /min TueFeb 28 08:4 0:15 EDT 2023 Systolic Blood Pressure 98.00 mm[Hg] TueFeb 28 00:17:00 EDT 2023 Diastolic Blood Pressure 58.00 mm[Hg] TueFeb 28 00:17:00 EDT 2023 Pulse Oximetry 98.00 % TueFeb 28 00:17 :00 EDT 2023 Pulse Oximetry 98.00 % TueFeb 28 00:17 :00 EDT 2023 Heart Rate 68.00 /min TueFeb 28 00:17 :00 EDT 2023 Body temperature 98.50 [degF] Tue 30 00:1 7:00 EDT 2023 Respiratory rate 18.00 /min TueFeb 28 00:1 7:00 EDT 2024 Systolic Blood Pressure 100.00 mm[Hg] [facility] Oct 29 10:41:43 EDT 4 Diastolic Blood Pressure 51.00 mm[Hg] [facility] Oct 29 10:41:43 EDT 2023 Pulse Oximetry 91.00 % [facility] 29 10:41 :43 EDT 4 Heart Rate 64.00 /min [facility] 29 10:41 :43 EDT 4 Body temperature 98.20 [degF] [facility] 29 10:4 1:43 EDT 2023 Respiratory rate 20.00 /min [facility] 29 10:4 1:43 EDT 2023 Pulse Oximetry 91.00 % [facility] 29 10:33 :42 EDT 4 Systolic Blood Pressure 101.00 mm[Hg] [facility] 28 23:56:10 EDT 2023 Diastolic Blood Pressure 59.00 mm[Hg] [facility] 28 23:56:10 EDT 2023 Pulse Oximetry 92.00 % [facility] 28 23:56 :10 EDT 2023 Pulse Oximetry 92.00 % [facility] 28 23:56 :10 EDT 2023 Heart Rate 68.00 /min [facility] 28 23:56 :10 EDT 2023 Body temperature 98.30 [degF] [facility] 28 23:5 6:10 EDT 4 Respiratory rate 18.00 /min [facility] 28 23:5 6:10 EDT 4 Systolic Blood Pressure 118.00 mm[Hg] [facility] 28 09:43:13 EDT 4 Diastolic Blood Pressure 71.00 mm[Hg] [facility] 28 09:43:13 EDT 4 Pulse Oximetry 99.00 % Tue [facility] 28 09:43 :13 EDT 2023 Pulse Oximetry 99.00 % [facility] 28 09:43 :13 EDT 4 Heart Rate 59.00 /min [facility] 28 09:43 :13 EDT 4 Body temperature 98.00 [degF] [facility] 28 09:4 3:13 EDT 4 Respiratory rate 20.00 /min [facility] 28 09:4 3:13 EDT 4 Systolic Blood Pressure 143.00 mm[Hg] [facility] 28 06:06:00 EDT 4 Diastolic Blood Pressure 78.00 mm[Hg] [facility] 28 06:06:00 EDT 2023 Pulse Oximetry 97.00 % [facility] 28 06:06 :00 EDT 2024 Heart Rate 68.00 /min Mon Oct 28 06:06 :00 EDT 2023 Body temperature 96.80 [degF] [facility] 06:0 6:00 EDT 2023 Respiratory rate 20.00 /min [facility] 06:0 6:00 EDT 2023 Systolic Blood Pressure 137.00 mm[Hg] [facility] Oct 27 22:12:45 EDT 2023 Diastolic Blood Pressure 69.00 mm[Hg] [facility] 27 22:12:45 EDT 2023 Pulse Oximetry 97.00 % [facility] 27 22:12 :45 EDT 2023 Pulse Oximetry 97.00 % [facility] 27 22:12 :45 EDT 4 Heart Rate 58.00 /min [facility] 27 22:12 :45 EDT 2023 Body temperature 98.20 [degF] [facility] 27 22:1 2:45 EDT 2023 Respiratory rate 18.00 /min [facility] 27 22:1 2:45 EDT 4 Body weight 139.60 [lb_av] [facility] 27 09:03 :51 EDT 2023 Systolic Blood Pressure 133.00 mm[Hg] [facility] 27 09:03:41 EDT 2023 Diastolic Blood Pressure 67.00 mm[Hg] [facility] 27 09:03:41 EDT 2023 Pulse Oximetry 94.00 % [facility] 27 09:03 :41 EDT 2023 Pulse Oximetry 94.00 % [facility] 27 09:03 :41 EDT 2023 Heart Rate 56.00 /min [facility] 27 09:03 :41 EDT 2023 Body temperature 97.80 [degF] [facility] 27 09:0 3:41 EDT 2023 Respiratory rate 20.00 /min [facility] 27 09:0 3:41 EDT 2023 Systolic Blood Pressure 116.00 mm[Hg] [facility] Oct 26 23:00:36 EDT 2023 Diastolic Blood Pressure 60.00 mm[Hg] [facility] Oct 26 23:00:36 EDT 2023 Pulse Oximetry 95.00 % [facility] Oct 26 23:00 :36 EDT 2023 Pulse Oximetry 95.00 % [facility] Oct 26 23:00 :36 EDT 2023 Heart Rate 58.00 /min [facility] Oct 26 23:00 :36 EDT 2023 Body temperature 98.20 [degF] [facility] Oct 26 23:0 0:36 EDT 4 Respiratory rate 18.00 /min Sat Oct 26 23:0 0:36 EDT 4 Body weight 140.20 [lb_av] Sat Oct 26 13:39 :26 EDT 2023 Systolic Blood Pressure 116.00 mm[Hg] Sat Oct 26 10:09:40 EDT 2023 Diastolic Blood Pressure 60.00 mm[Hg] Sat Oct 26 10:09:40 EDT 2023 Pulse Oximetry 95.00 % Sat Oct 26 10:09 :40 EDT 2023 Pulse Oximetry 95.00 % Sat Oct 26 10:09 :40 EDT 2023 Heart Rate 58.00 /min Sat Oct 26 10:09 :40 EDT 2023 Body temperature 98.20 [degF] Sat Oct 26 10:0 9:40 EDT 2023 Respiratory rate 18.00 /min Sat Oct 26 10:0 9:40 EDT 2023 Systolic Blood Pressure 107.00 mm[Hg] Sat Oct 26 00:09:40 EDT 4 Diastolic Blood Pressure 56.00 mm[Hg] Sat Oct 26 00:09:40 EDT 2023 Pulse Oximetry 98.00 % [facility] Oct 26 00:09 :40 EDT 2023 Pulse Oximetry 98.00 % [facility] Oct 26 00:09 :40 EDT 4 Heart Rate 54.00 /min Sat Oct 26 00:09 :40 EDT 2023 Body temperature 98.00 [degF] Sat Oct 26 00:0 9:40 EDT 2023 Respiratory rate 18.00 /min [facility] Oct 26 00:0 9:40 EDT 4 Body weight 143.20 [lb_av] Tue 25 18:20 :45 EDT 2023 Systolic Blood Pressure 120.00 mm[Hg] Tue 25 09:46:48 EDT 2023 Diastolic Blood Pressure 62.00 mm[Hg] TueFeb 23 09:46:48 EDT 2023 Pulse Oximetry 95.00 % Tue 25 09:46 :48 EDT 2023 Pulse Oximetry 95.00 % Tue 25 09:46 :48 EDT 2023 Heart Rate 57.00 /min TueFeb 23 09:46 :48 EDT 2023 Body temperature 98.30 [degF] Tue 25 09:4 6:48 EDT 2023 Respiratory rate 20.00 /min Tue 25 09:4 6:48 EDT 2023 Systolic Blood Pressure 102.00 mm[Hg] [facility] Oct 24 23:55:04 EDT 2023 Diastolic Blood Pressure 60.00 mm[Hg] [facility] Jan 24 23:55:04 EDT 2023 Pulse Oximetry 96.00 % [facility] Jan 24 23:55 :04 EDT 2023 Pulse Oximetry 96.00 % [facility] Jan 24 23:55 :04 EDT 2023 Heart Rate 57.00 /min [facility] Jan 24 23:55 :04 EDT 2023 Body temperature 98.30 [degF] [facility] Jan 24 23:5 5:04 EDT 2023 Respiratory rate 18.00 /min [facility] Jan 24 23:5 5:04 EDT 2023 Body Height 70.00 [in_i] Tue 24 14:54 :43 EDT 2023 Body weight 140.20 [lb_av] [facility] Feb 22 13:04 :35 EDT 2023 Systolic Blood Pressure 134.00 mm[Hg] [facility] 24 10:31:50 EDT 2023 Diastolic Blood Pressure 69.00 mm[Hg] [facility] 24 10:31:50 EDT 2023 Pulse Oximetry 92.00 % Tue 24 10:31 :50 EDT 2023 Pulse Oximetry 92.00 % [facility] 24 10:31 :50 EDT 2023 Heart Rate 71.00 /min [facility] 24 10:31 :50 EDT 2023 Body temperature 98.40 [degF] [facility] Feb 22 10:3 1:50 EDT 2023 Respiratory rate 18.00 /min [facility] 24 10:3 1:50 EDT 2023 Systolic Blood Pressure 118.00 mm[Hg] TueFeb 21 22:46:00 EDT 2023 Diastolic Blood Pressure 57.00 mm[Hg] TueFeb 21 22:46:00 EDT 2023 Pulse Oximetry 92.00 % TueFeb 21 22:46 :00 EDT 2023 Heart Rate 65.00 /min TueFeb 21 22:46 :00 EDT 2023 Body temperature 98.50 [degF] TueFeb 21 22:4 6:00 EDT 2023 Respiratory rate 20.00 /min TueFeb 21 22:4 6:00 EDT 2023 Reason for Referral Past Medical History Resolved Concerns * Problem Presence of right artificial shoulder joint* Code: * Start Date: TueJan 31 00:00:00 EDT 2022 * End Date: TueJan 31 00:00:00 EDT 2022 * Problem Emphysema, unspecified* Code: * Start Date: TueJan 31 00:00:00 EDT 2022 * End Date: TueFeb 16 00:00:00 EDT 2023 * Problem Hypothyroidism, unspecified* Code: * Start Date: TueJan 31 00:00:00 EDT 2022 * End Date: TueJan 31 00:00:00 EDT 2022
--- OUTSIDE RECORDS SUMMARY | 2024-10-14 15:14 | XMS_ITS | Data Portability ---
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 Labs (CBC, BMP, CRP) on 03/08. Taper O2 to keep sat between 90-92%. Not available 03/08/2024 09:05:38 03/07/2024 03/07/2024 sending back to [place] [facility] - called the patient's brother, Linwood, to discuss plan/need for timely w/u which is not available here. He is agreeable to transfer back to the hospital. Called [place] [facility] and discussed case with Dr. Payal [...] Details Last Modified Time 02/28/202420910804 I spent 65 minutes providing care to the patient today. More than 50% of that time was spent in discussing the expected course of the disease, discussing prognosis, coordinating care and counseling of the patient/family. [email or web address] Not available 03/05/2024 07:28:04 03/01/202420930702 I spent 38 minutes providing care to the patient today. More than 50% of that time was spent in discussing the expected course of the disease, discussing prognosis, coordinating care and counseling of the patient/family. [email or web address] Not available 03/05/2024 07:56:51 03/04/2024336004 I spent 52 minutes providing care to the patient today. More than 50% of that time was spent in discussing the expected course of the disease, discussing prognosis, coordinating care and counseling of the patient/family. [email or web address] Not available 03/08/2024 02:45:18 03/06/2024338713 I spent 36 minutes providing care to the patient today. More than 50% of that time was spent in discussing the expected course of the disease, discussing prognosis, coordinating care and counseling of the patient/family. Not available 03/08/2024 09:08:55 03/07/2024598167 I spent 65 minutes providing care to the patient today. [...] 023 [facility] [place] [facility] 02/23/2024 23:08:50 021 repair of right inguinal hernia [facility] [place] [facility] 02/23/2024 22:59:16 019 repair of inguinal hernia [facility] [place] [facility] 02/23/2024 23:02:47 016 extraction of cataract [facility] [place] [facility] 02/23/2024 23:09:50 015 completion pneumonectomy completed [facility] [place] [facility] 02/23/2024 23:06:06 007 open repair of ventral hernia [facility] [place] [facility] 02/23/2024 23:07:09 006 arthroscopy of knee with medial meniscus repair completed [facility] - [facility] 02/23/2024 23:03:44 003 CABG [facility] [place] [facility] 02/23/2024 23:07:36 [facility] [place] [facility] 02/23/2024 22:58:25 decompression of bilateral median nerves completed [facility] [place] [facility] 02/23/2024 22:59:28 percutaneous transluminal angioplasty of coronary artery using imaging guidance with contrast completed [facility] - [facility] 02/23/2024 22:59:44 hemorrhoidectomy [facility] [place] [facility] 02/23/2024 23:01:47 [facility] 02/23/2024 23:08:07 Imaging Results None recorded. Procedure Notes None recorded. Medical Equipment None Reported. Allergies Allergen ID Allergen Name Allergen Category Reaction Reaction Severity Criticality Documentation Date Start Date Code Code System Note Provider Name and Address Organization Details Recorded Time 99644 atorvasta tin medicatio n Not available Not available Not available 02/24/2024 36802 RxNorm Shikha Gan, [place] [address] [facility], [place], [address], [place] [facility] 10/25/202 4 16:07:03 31614 methocarb iona medicatio n Not available Not available Not available 02/24/2024 6845 RxNorm Shikha Malik, [place] [address] [place], [address], [facility] 4 16:07:10 86656 terbinafi ne medicatio n Not available Not available Not available 02/24/2024 44319 RxNorm Shikhagenia Gan, [place] [address] [place], [address], [facility] 4 16:07:15 Medications Name Sig Start Date Stop Date [...] Available nitroglycer in 400 mcg/spray translingua l [place] 1 spray by transling ual route as [...] Not Available No t Available Niferex (Sumalate-[facility]) 150 mg iron-60 mg-1 mg tablet Take [...] 2 L/min 100 mm[Hg] 51 mm[Hg] [place] [address] [place], [address], [place] [facility] 4 08:56:24 Date Recorded Body height Heart [...] L/min 22 /min 97.8 [degF] 19.8 kg/m2 83496.7 5 g 122 mm[Hg] 69 mm[Hg] [place] [address] [place], [address], [facility] [employer] [facility] 4 16:24:15 Date Recorded Body height Body mass index (BMI) Body weight Heart rate Oxygen saturation Oxygen saturation in Arterial blood by Pulse oximetry Inhaled oxygen flow rate Respiratory rate Body temperature Systolic blood pressure Diastolic blood pressure Provider Name and Address Organization Details Last Updated DateTime 4 177.8 cm 19.8 kg/m2 24766.7 5 g 64 /min 98 % 98 % 2 L/min 18 /min 97.9 [degF] 95 mm[Hg] 51 mm[Hg] [place] [address] [place], [address], [facility] [employer] [facility] 4 04:14:00 Date Recorded Body height Heart [...] % 99 % 4 L/min 19.8 kg/m2 22999.7 5 g 98 mm[Hg] 51 mm[Hg] [place] [address] [place], [address], [place] [facility] 4 09:59:08 Date Recorded Heart rate Oxygen saturation Oxygen saturation in Arterial blood by Pulse oximetry Inhaled oxygen flow rate Respiratory rate Body temperature Systolic blood pressure Diastolic blood pressure Provider Name and Address Organization Details Last Updated DateTime 4 96 /min 92 % 92 % 3 L/min 22 /min 97.8 [degF] 82 mm[Hg] 55 mm[Hg] [place] [address] [place], [address], [place] [facility] 02:49:17 Social History Question Answer Notes LastModified by Organizat ion Details LastModified Time Tobacco Smoking Status Current Every Day Smoker Braxton Larisa null, [place] - [facility] 02/23/2024 23:12:45 What Is Your Code Status? Full Code Information not available 02/23/2024 What Is Your Relationship Status? Information not available 02/23/2024 At What Age Did You Start Smoking Tobacco? 20 Information not available 02/23/2024 How Much Tobacco Do You Smoke? 1 PPD Information not available 02/23/2024 How Many Years Have You Smoked Tobacco? 50 Information not available 02/23/2024 Sex: Unknown Functional Status Question Answer Note LastModified by Organizat ion Details LastModified Time Do you use any illicit or recreational drugs? No Information not available 02/23/2024 What is your level of alcohol consumption? None Information not available 02/23/2024 Mental Status None recorded. Family History Relationship [...] Condition Response Coronary Artery Disease (CAD) Y Fall Y COPD Y Hypothyroidism Y Cancer -- Skin Y Cancer -- Thyroid Y Hyperlipidemia Y Fracture Y GERD / Reflux Y Neuropathy Y Cancer -- Lung Y Hypertension Y Past Encounters Encounter ID Performer Location Encounter Start Date Encounter Closed Date Diagnosis/Indication Diagnosis SNOMED-CT Code Diagnosis ICD10 Code Diagnosis Note [id number] Edita Boo [place] [address] [facility] [address] 02/24/2024 12:08:49 03/01/2024 13:49:19 Tobacco user 478396430 Z72.0 Continue to encourage cessation upon discharge. fall W19.XXXD mechanical with head strike, no LOC, with 18 hours on ground.Fal l precaution s in place.Cont inue therapies. Rhabdomyolysis 552253448 M62.82 SEE ABOVE...Re solved. Candidiasi s of the esophagus 61760871 B37.81 Hgb dropped from 12.8 to 7.8 [...] with GI as OP. Polyp of colon 87400364 K63.5 x 1 from cecum, biopsy tubular adenoma.F/ U with GI as OP. Erosive gastritis 307865 6371 636391 K29.70 SEE ABOVE... Gastro-eso phageal reflux disease with esophagitis 119654518 K21.00 SEE ABOVE... Pressure i njury of sacral region of back 347442265 L89.159 SWM to eval & treat. Continue offloading and wound care. Hypertensive disorder 38 841223 I10 Per history. Not on medication s at present.Co ntinue to trend blood pressures, monitor lytes and renal function, and add meds as clinically indicated. Hyperlipidemia 32464604 E78.5 Per history. Continue Simvastati n.F/U with cards as OP. Coronary arteriosclerosis 76143003 I25.10 s/p CABG.Madisyn nue baby ASA (for now), Ranexa, statin and PRN Nitro.F/U with cards as OP. Abdominal aortic aneurysm 649832040 I71.40 Imaging noted AAA 4.7 cm.F/U as OP for further evaluation /treatment options. Hypothyroidism 56114388 E03.9 Per history but pt is not on treatment. Has hx of thyroid cancer so possible this has resolved. Chronic ob structive pulmonary disease 32276007 J44.9 Stable at present. Continue Trelegy and PRN Duonebs. Chronic hy poxemic respiratory failure 911242667 J96.11 Stable. Wears 2L NC as OP.Current ly without concerns. Continue COPD regimen as above. Dysphagia 95713755 R13.1 0 MBS while inpatient read pharyngea l dysphagia with small amount of transient laryngeal penetratio n without aspiration with thin liquids. He is presently on a regular diet with minced/pavan st meat and thin liquids.Me dications are crushed in pudding, except his Ranexa, with which he struggles. ST following here. Monitor closely. Chronic esophagitis 4096 70041 K20.90 SEE ABOVE... Idiopathic peripheral neuropathy 37244511 G60.9 SEE ABOVE... Osteoarthritis 701447868 M19.90 Stable. Monitor for continued need for PRN Baclofen. History of malignant neoplasm of thyroid 219924303 Z85.850 Details unclear. History of malignant neoplasm of lung 909300549 Z85.110 Details unclear. s/p RUL partial lobectomy. Pneumonia 226277328 J18. 9 LLL PNA S/P treatment while inpatient. Respirator y status appears to be at baseline. Monitor closely. Retention of urine 69906 4002 R33.9 Cause/work -up unclear. Arguelles was placed which remains.Mo nitor for ability to attempt voiding trial. Consider checking UA if was not done while inpatient. Anemia 541675696 D64.9 SEE ABOVE... Hyponatremia 54122466 E8 7.1 Continue supportive treatment at present and monitor. Hypokalemia 34231592 E87 .6 K 3.3. Add KCl 20 meq daily. This may need to be changed to powder/liq uid if pt cannot swallow. Generalize d anxiety disorder 95403677 F41.1 Stable. Continue Escitalopr am and PRN Xanax. [id number] Edita Boo DO [facility] [address] [place] [address] 02/27/2024 14:15:06 03/02/2024 13:43:43 Fall 2225655 W19.XXXD Mechanical with head strike, no LOC, with 18 hours on ground.Fal l precaution s in place. Despite this, fell again overnight with bilateral elbow abrasions. Continue dressings as ordered. Monitor for infection. Continue therapies. Abrasion o f skin of elbow 802229242 S50.311D S50.312D SEE ABOVE... Rhabdomyolysis 258250025 M62.82 SEE ABOVE...Re solved. Pneumonia 471909151 J18. 9 LLL PNA S/P treatment while inpatient. Respirator y status appears to be at baseline. Monitor closely. Candidiasi s of the esophagus 09113005 B37.81 Hgb dropped from 12.8 to 7.8 [...] (03/04).F/U with GI as OP. Erosive gastritis 712168 4353 758102 K29.70 SEE ABOVE... Chronic esophagitis 4096 66492 K20.90 SEE ABOVE... Gastro-eso phageal reflux disease with esophagitis 956499851 K21.00 SEE ABOVE... Anemia 232829556 D64.9 SEE ABOVE... Hypokalemia 86881963 E87 .6 Improved. Continue supplement and trend level.This may need to be changed to powder/liq uid if pt cannot swallow. Hyponatremia 48670855 E8 7.1 Add NaCl TID.Repeat labs on 02/28.May need fluid restrictio n. Dysphagia 05660186 R13.1 0 MBS while inpatient read pharyngea l dysphagia with small amount of transient laryngeal penetratio n without aspiration with thin liquids. He is presently on a regular diet with minced/pavan st meat and thin liquids.Me dications are crushed in pudding, except his Ranexa, with which he struggles. ST following here. Monitor closely. Polyp of colon 60339142 K63.5 x 1 from cecum, biopsy tubular adenoma.F/ U with GI as OP. Retention of urine 61275 4002 R33.9 Cause/work -up unclear. Arguelles was placed which remains.Mo nitor for ability to attempt voiding trial. Consider checking UA if was not done while inpatient. Pressure i njury of sacral region of back 134407662 L89.159 SWM to eval & treat. Continue offloading and wound care. Hypertensive disorder 38 281456 I10 Per history. Not on medication s at present.Co ntinue to trend blood pressures, monitor lytes and renal function, and add meds as clinically indicated. Hyperlipidemia 35175352 E78.5 Per history. Continue Simvastati n.F/U with cards as OP. Coronary arteriosclerosis 90379245 I25.10 s/p CABG.Madisyn nue baby ASA (for now), Ranexa, statin and PRN Nitro.F/U with cards as OP. Abdominal aortic aneurysm 032248871 I71.40 Imaging noted AAA 4.7 cm.F/U as OP for further evaluation /treatment options. Hypothyroidism 48814228 E03.9 Per history but pt is not on treatment. Has hx of thyroid cancer so possible this has resolved. Chronic ob structive pulmonary disease 23909690 J44.9 Stable at present. Continue Trelegy and PRN Duonebs. Chronic hy poxemic respiratory failure 374958350 J96.11 Stable. Wears 2L NC as OP.Current ly without concerns. Continue COPD regimen as above. Tobacco user 543166780 Z 72.0 Continue to encourage cessation upon discharge. Generalize d anxiety disorder 48545806 F41.1 Stable. Continue Escitalopr am and PRN Xanax. Osteoarthritis 483303859 M19.90 Stable. Monitor for continued need for PRN Baclofen. Idiopathic peripheral neuropathy 81056893 G60.9 SEE ABOVE... History of malignant neoplasm of thyroid 226489197 Z85.850 Details unclear. History of malignant neoplasm of lung 199521288 Z85.110 Details unclear. s/p RUL partial lobectomy. [id number] Edita Ben, DO [place] [address] [place] [address] 02/28/2024 14:33:39 03/12/2024 15:12:28 Fall W19.XXXD Mechanical with head strike, no LOC, with 18 hours on ground.Fal l precaution s in place. Despite this, fell again overnight with bilateral elbow abrasions. Continue dressings as ordered. Monitor for infection. Continue therapies. Abrasion o f skin of elbow 654275772 S50.311D S50.312D SEE ABOVE... Hyponatremia 18101111 E8 7.1 continue NaCl TID.Repeat labs on 02/28.May need fluid restrictio n. Pneumonia 258117140 J18. 9 LLL PNA S/P treatment while inpatient. Respirator y status appears to be at baseline. Monitor closely. Candidiasi s of the esophagus 71928888 B37.81 Hgb dropped from 12.8 to 7.8 [...] (03/04).F/U with GI as OP. Erosive gastritis 157040 0166 858477 K29.70 SEE ABOVE... Chronic esophagitis 4096 78376 K20.90 SEE ABOVE... Gastro-eso phageal reflux disease with esophagitis 191471712 K21.00 SEE ABOVE... Anemia 491353916 D64.9 SEE ABOVE... Hypokalemia 90089994 E87 .6 Improved. Continue supplement and trend level.This may need to be changed to powder/liq uid if pt cannot swallow. Dysphagia 32915568 R13.1 0 MBS while inpatient read pharyngea l dysphagia with small amount of transient laryngeal penetratio n without aspiration with thin liquids. He is presently on a regular diet with minced/pavan st meat and thin liquids.Me dications are crushed in pudding, except his Ranexa, with which he struggles. ST following here. Monitor closely. Polyp of colon 68938371 K63.5 x 1 from cecum, biopsy tubular adenoma.F/ U with GI as OP. Retention of urine 12893 4002 R33.9 Cause/work -up unclear. Arguelles was placed which remains.vo iding trial in am, check UA due to leukocytos is Pressure i njury of sacral region of back 690555417 L89.159 SWM to eval & treat. Continue offloading and wound care. Hypertensive disorder 38 059689 I10 Per history. Not on medication s at presentblo od pressures have been low at times - improved with pushing fluidscont inue to trend blood pressures Hyperlipidemia 58525648 E78.5 Per history. Continue Simvastati n.F/U with cards as OP. Coronary arteriosclerosis 82736713 I25.10 s/p CABG.Madisyn nue baby ASA (for now), Ranexa, statin and PRN Nitro.F/U with cards as OP. Abdominal aortic aneurysm 874164500 I71.40 Imaging noted AAA 4.7 cm.F/U as OP for further evaluation /treatment options. Hypothyroidism 34829657 E03.9 Per history but pt is not on treatment. consider checking thyroid studies in the setting of hyponatrem ia - inpatient records are limited so not sure if these labs have recently been done Chronic ob structive pulmonary disease 91727560 J44.9 Stable at present. Continue Trelegy and PRN Duonebs. Chronic hy poxemic respiratory failure 697799780 J96.11 Stable. Wears 2L NC as OP.Current ly without concerns. Continue COPD regimen as above. Tobacco user 512294828 Z 72.0 Continue to encourage cessation upon discharge. Generalize d anxiety disorder 68211612 F41.1 Stable. Continue Escitalopr am and PRN Xanax. Osteoarthritis 643115227 M19.90 Stable. Monitor for continued need for PRN Baclofen. Idiopathic peripheral neuropathy 57014964 G60.9 SEE ABOVE... History of malignant neoplasm of thyroid 955489782 Z85.850 Details unclear. History of malignant neoplasm of lung 019711064 Z85.110 Details unclear. s/p RUL partial lobectomy. Rhabdomyolysis 578794230 M62.82 SEE ABOVE...Re solved. [id number] Edita Susannahstephenie, DO [facility] [address] [place] [address] 03/01/2024 09:57:44 03/12/2024 15:28:08 Fall W19.XXXD Mechanical with head strike, no LOC, with 18 hours on ground.Fal l precaution s in place. Despite this, fell again overnight with bilateral elbow abrasions. Continue dressings as ordered. Monitor for infection. Continue therapies. Abrasion o f skin of elbow 800485002 S50.311D S50.312D SEE ABOVE... Hyponatremia 97921843 E8 7.1 Worsening despite addition of NaCl TID.Send to ER for evaluation .May need dose reduction of Escitalopr am if hyponatrem ia otherwise is not responsive . Pneumonia 454199009 J18. 9 LLL PNA S/P treatment while inpatient. Respirator y status appears to be at baseline. Monitor closely. Candidiasi s of the esophagus 42438526 B37.81 Hgb dropped from 12.8 to 7.8 [...] (03/04).F/U with GI as OP. Erosive gastritis 369227 6272 831499 K29.70 SEE ABOVE... Chronic esophagitis 4096 39950 K20.90 SEE ABOVE... Gastro-eso phageal reflux disease with esophagitis 086445513 K21.00 SEE ABOVE... Anemia 296423558 D64.9 SEE ABOVE... Hypokalemia 28314354 E87 .6 Improved. Continue supplement and trend level.This may need to be changed to powder/liq uid if pt cannot swallow. Dysphagia 18715466 R13.1 0 MBS while inpatient read pharyngea l dysphagia with small amount of transient laryngeal penetratio n without aspiration with thin liquids. He is presently on a regular diet with minced/pavan st meat and thin liquids.Me dications are crushed in pudding, except his Ranexa, with which he struggles. ST following here. Monitor closely. Polyp of colon 26806694 K63.5 x 1 from cecum, biopsy tubular adenoma.F/ U with GI as OP. Retention of urine 48155 4002 R33.9 Cause/work -up unclear. Arguelles was placed, removed on 02/28.Sandra brown notes he has been voiding without concerns.U A on 02/28 was normal, did not meet criteria to reflex to cx. Pressure i njury of sacral region of back 426170312 L89.159 SWM to eval & treat. Continue offloading and wound care. Hypertensive disorder 38 430557 I10 Per history. Not on medication s at presentBlo od pressures have been low at times - improved with pushing fluids.Con tinue to trend blood pressures, monitor lytes and renal function, and add meds as clinically indicated. Hyperlipidemia 20274421 E78.5 Per history. Continue Simvastati n.F/U with cards as OP. Coronary arteriosclerosis 99518667 I25.10 s/p CABG.Have stopped baby ASA due to gastritis/ esophagiti s & anemia.Con tinue Ranexa, statin, and PRN Nitro.F/U with cards as OP. Abdominal aortic aneurysm 406708484 I71.40 Imaging noted AAA 4.7 cm.F/U as OP for further evaluation /treatment options. Hypothyroidism 94478388 E03.9 Per history but pt is not on treatment. Consider checking thyroid studies in the setting of hyponatrem ia. Inpatient records are limited. Chronic ob structive pulmonary disease 51429110 J44.9 Stable at present. Continue Trelegy and PRN Duonebs. Chronic hy poxemic respiratory failure 213306758 J96.11 Stable. Wears 2L NC as OP.Current ly without concerns. Continue COPD regimen as above. Tobacco user 497411347 Z 72.0 Continue to encourage cessation upon discharge. Generalize d anxiety disorder 76637356 F41.1 Stable. Continue Escitalopr am and PRN Xanax.May need dose reduction of Escitalopr am if hyponatrem ia otherwise is not responsive . Osteoarthritis 461566162 M19.90 Stable. Monitor for continued need for PRN Baclofen. Idiopathic peripheral neuropathy 34453004 G60.9 SEE ABOVE... History of malignant neoplasm of thyroid 015890544 Z85.850 Details unclear. History of malignant neoplasm of lung 548293115 Z85.110 Details unclear. s/p RUL partial lobectomy. Rhabdomyolysis 832899476 M62.82 SEE ABOVE...Re solved. [id number] Edita Boo DO [address] [address] 03/04/2024 22:08:51 03/12/2024 16:01:46 Hyponatremia 99376086 E87.1 continue NaCl TIDf/u labs are ordered for am - if continued worsening, will place fluid restrictio n, consider d/c of SSRI, resume synthroid (will clarify dosing with PCP in AM) Candidiasi s of the esophagus 30223216 B37.81 Hgb dropped from 12.8 to 7.8 [...] on Iron BID.he has completed Fluconazol e / with GI as OP. Erosive gastritis 077780 3377 822830 K29.70 SEE ABOVE... Chronic esophagitis 4096 00226 K20.90 SEE ABOVE... Gastro-eso phageal reflux disease with esophagitis 621620404 K21.00 SEE ABOVE... Anemia 165388389 D64.9 SEE ABOVE... Pneumonia 525808733 J18. 9 LLL PNA S/P treatment while [...] checked as we are unable to access [place] medical records Abrasion o f skin of elbow 638236869 S50.311D S50.312D SEE ABOVE... Hypokalemia 60812424 E87 .6 Improved. Continue supplement and trend levels Dysphagia 83057327 R13.1 0 MBS while inpatient read pharyngea l dysphagia with small amount of transient laryngeal penetratio n without aspiration with thin liquids. He is presently on a regular diet with minced/pavan st meat and thin liquids.Me dications are crushed in pudding, except his Ranexa, with which he struggles. ST following here. Monitor closely. Polyp of colon 93364861 K63.5 x 1 from cecum, biopsy tubular adenoma.F/ U with GI as OP. Retention of urine 81221 4002 R33.9 Cause/work -up unclear. Arguelles was placed, removed on 02/28.Staf f notes he has been voiding without concerns.U A on 02/28 was normal, did not meet criteria to reflex to cx. Pressure i njury of sacral region of back 600139718 L89.159 SWM to eval & treat. Continue offloading and wound care. Hypertensive disorder 38 325340 I10 Per history. Not on medication s at presentBlo od pressures have been low at times - improved with pushing fluids - he has not required IV fluids although may need to consider due to hyponatrem iaContinue to trend blood pressures, monitor lytes and renal function, and add meds as clinically indicated. Hyperlipidemia 13922037 E78.5 Per history. Continue Simvastati n.F/U with cards as OP. Coronary arteriosclerosis 61422053 I25.10 s/p CABG.Have stopped baby ASA due to gastritis/ esophagiti s & anemia.Con tinue Ranexa, statin, and PRN Nitro.F/U with cards as OP. Abdominal aortic aneurysm [id number] I71.40 Imaging noted AAA 4.7 cm.F/U as OP for further evaluation /treatment options. Hypothyroidism 86570033 E03.9 SEE ABOVE..... .will clarify with PCP and/or pharmacy in am synthroid dose and plan to resumethyr oid studies are ordered for AM Chronic ob structive pulmonary disease 23327076 J44.9 Stable at present. Continue Trelegy and PRN Duonebs. Chronic hy poxemic respiratory failure 357035255 J96.11 Stable. Wears 2L NC as OP.Current ly without concerns. Continue COPD regimen as above. Tobacco user 599551173 Z 72.0 Continue to encourage cessation upon discharge. Generalize d anxiety disorder 10777619 F41.1 Stable. Continue Escitalopr am and PRN Xanax.May need to dose reduce or d/c altogether Lexapro due to hyponatrem ia Osteoarthritis 797751151 M19.90 Stable. Monitor for continued need for PRN Baclofen. Idiopathic peripheral neuropathy 74720408 G60.9 SEE ABOVE... History of malignant neoplasm of thyroid 322225556 Z85.850 Details unclear. History of malignant neoplasm of lung 231803359 Z85.110 Details unclear. s/p RUL partial lobectomy. Rhabdomyolysis 483711887 M62.82 SEE ABOVE...Re solved. [id number] Edita Boo, [address] [address] 03/06/2024 08:58:29 03/08/2024 15:20:31 Hyponatremia 46863684 E87.1 Continue NaCl TID. Sent to [facility] on 03/01 due to worsening hyponatrem ia, however they sent him back the same day with NNO as they said his baseline Na is low 120s. However, he was 130s when at [place] prior...St art 1.5 L fluid restrictio n.Hopefull y will see improvemen t with resumption of Levothyrox ine on 03/05.May need to reduce or stop Lexapro.La bs (CBC, BMP, CRP) on 03/08. Candidiasi s of the esophagus 97606530 B37.81 Hgb dropped from 12.8 to 7.8 [...] 03/04.F/U with GI as OP. Erosive gastritis 923698 2349 002982 K29.70 SEE ABOVE... Chronic esophagitis 4096 05217 K20.90 SEE ABOVE... Gastro-eso phageal reflux disease with esophagitis 042455995 K21.00 SEE ABOVE... Anemia 294465138 D64.9 SEE ABOVE... Pneumonia 696515278 J18. 9 LLL PNA S/P treatment while [...] checked as we are unable to access [facility]'s medical records. Consider checking while here. Abrasion o f skin of elbow 187212389 S50.311D S50.312D SEE ABOVE... Hypokalemia 35681304 E87 .6 Improved. Continue supplement and trend levels. Dysphagia 75300799 R13.1 0 MBS while inpatient read pharyngea l dysphagia with small amount of transient laryngeal penetratio n without aspiration with thin liquids. He is presently on a regular diet with minced/pavan st meat and thin liquids.Me dications are crushed in pudding, except his Ranexa.ST following here. Monitor closely. Polyp of colon 23915861 K63.5 x 1 from cecum, biopsy tubular adenoma.F/ U with GI as OP. Retention of urine 92959 4002 R33.9 Cause/work -up unclear. Arguelles was placed, removed on 02/28.Staf f notes he has been voiding without concerns.U A on 02/28 was normal, did not meet criteria to reflex to cx. Pressure i njury of sacral region of back 257210911 L89.159 SWM to eval & treat. Continue offloading and wound care. Hypertensive disorder 38 249327 I10 Per history. Not on medication s at presentBlo od pressures have been low at times - improved with pushing fluids. He has not required IV fluids although may need to consider due to hyponatrem ia.Continu e to trend blood pressures, monitor lytes and renal function, and add meds as clinically indicated. Hyperlipidemia 78511385 E78.5 Per history. Continue Simvastati n.F/U with cards as OP. Coronary arteriosclerosis 93421903 I25.10 s/p CABG.Have stopped baby ASA due to gastritis/ esophagiti s & anemia.Con tinue Ranexa, statin, and PRN Nitro.F/U with cards as OP. Abdominal aortic aneurysm 584446612 I71.40 Imaging noted AAA 4.7 cm.F/U as OP for further evaluation /treatment options. Hypothyroidism 94628607 E03.9 SEE ABOVE..... .Dr. Boo clarified with PCP and resumed Levothyrox ine at 175 mcg daily on 03/05.Thyro id studies remain pending. Chronic ob structive pulmonary disease 85360087 J44.9 Stable at present. Continue Trelegy and PRN Duonebs. Chronic hy poxemic respiratory failure 864895563 J96.11 Stable. Wears 2L NC as OP.Current ly without concerns. Continue COPD regimen as above. Tobacco user 339382135 Z 72.0 Continue to encourage cessation upon discharge. Generalize d anxiety disorder 12643981 F41.1 Stable. Continue Escitalopr am and PRN Xanax.May need to dose reduce or d/c altogether Lexapro due to hyponatrem ia. Osteoarthritis 789213099 M19.90 Stable. Monitor for continued need for PRN Baclofen. Idiopathic peripheral neuropathy 25589701 G60.9 SEE ABOVE... History of malignant neoplasm of thyroid 963257328 Z85.850 Details unclear. History of malignant neoplasm of lung 008275717 Z85.110 Details unclear. s/p RUL partial lobectomy. Rhabdomyolysis 658323889 M62.82 SEE ABOVE...Re solved. [id number] Edita Boo, [facility] [address] [place] [address] 03/07/2024 17:11:25 03/12/2024 16:32:47 Altered mental status 556049519 R41.82 likely related to hyponatrem ia although need to r/o intracrani al pathology/ infection as well Hyponatremia 19668452 E8 7.1 unclear etiology - this has [...] /specialis t consultati on Low blood pressure 51256 003 I95.9 see above - EMS here / IV access obtained and IV fluids to start enroute to ER Health Concerns Section Related Observation LastModified by Organization Detai ls LastModified Time None Recorded Concern Status LastModified by Organization Details LastModified Time None Recorded Advance Directives Directive None Recorded Payers Insurance Date Sequence Insurance Name Policy Number Policy Sebastian Covered Member ID Sebastian Member ID Guarantor Name 03/06/2024 1 [place] Cecilio Bergeron [id number] Cecilio Bergeron 03/06/2024 2 [employer] (MEDICARE SUPPLEMENT) Cecilio Bergeron [id number] Cecilio Bergeron Notes Date Note Type Note [...] this facility for rehabilitation following hospitalization [facility] from [facility] to 02/22/24 for fall prolonged [...] by his brother. He was taken to [facility] and admitted with rhabdomyolysis and was found [...] confusion. Neuro-checks and vital signs started and EDUCATION DEPARTMENT CHAIR sitting outside room for observation.. Nursing notes that he had a similar episode while he was inpatient. Labwork received from this morning is still pending but does note a Na level of 128. His neurological status is at baseline compared to my previous visit with him on 02/23. VSS. Staff is otherwise without concerns. 02/28/24Terkaitlynn is lying in bed this afternoon. He [...] elevated [place] [address] [facility], [place], [address], [facility] 03/05/2024 07:28:21 03/01/2024 text/html F/U Hyponatremia , anemia, fall with rhabdomyolysis, pneumonia, urinary retention, dysphagia, candidal esophagitis & gastritis, debility, and chronic medical conditions.--- 4Terkaitlynn is seated in the [facility] area, drinking a soda. He is noted [...] confusion. Neuro-checks and vital signs started and EDUCATION DEPARTMENT CHAIR sitting outside room for observation.. Nursing notes [...] WBC count.---03/01/24Terr y is seated in the [facility] area, a fair historian, his largest [...] now 124. I have consulted with Dr. Boo and elect to send to ER for evaluation of worsening hyponatremia per nephrology as well as possible blood or iron transfusion for anemia. His arguelles catheter was removed on 02/27 and he has been voiding without concerns since. VSS except BPs have been soft. Shikha Gan, [place] [address] [facility], [place], [address], [facility] 03/05/2024 07:57:36 03/04/2024 text/html F/U [...] noise and guest yelling Help! and observed bairon lying on his back in the hallway [...] confusion. Neuro-checks and vital signs started and EDUCATION DEPARTMENT CHAIR sitting outside room for observation.. Nursing notes [...] ordered in response to elevated WBC count. ---10/31/24Terry is seated in the common area, a fair historian, his largest concern [...] now 124. I have consulted with Dr. Boo and elect to send to ER for [...] to the ER 03/01 with labs at [place] showing a Hb of 8.6 so he [...] catheterization since arguelles [place] [address] [facility], [place], [address], [facility] 03/08/2024 02:45:47 03/06/2024 text/html F/U [...] confusion. Neuro-checks and vital signs started and EDUCATION DEPARTMENT CHAIR sitting outside room for observation.. Nursing notes [...] WBC count.---03/01/24Terr y is seated in the [facility] area, a fair historian, his largest [...] now 124. I have consulted with Dr. Boo and elect to send to ER for [...] to the ER 03/01 with labs at [place] showing a Hb of 8.6 so he [...] remain soft. [place] [address] [place], [address], [employer] [facility] 03/08/2024 09:09:05 03/07/2024 text/html I am [...] to person only, thinks he is at [facility] and unable to tell me the correct [...] - remain [place] [address] [address], [place], [address], [facility] 03/08/2024 03:16:12
--- OUTSIDE RECORDS SUMMARY | 2024-10-14 15:14 | XMS_ITS | Encounter Summary ---
Author Organization [facility] Address [address] [place] [address] Care Team Providers Care Inspector Subassemblies Name Role Phone Elodia Shoemaker APRN-POLICY CANCELLATION CLERK Primary Care Provider + Encounter Details Date Type Department Care Team (Late st Contact Info) Description 03/16/2022 Lab Requisition [facility] Care DermPath Lab [address] [place] [address] Laron Prescott MD [address] [place] [address] Social History Tobacco Use Types Packs/Day Years Used Date Smoking Tobacco: Every Day Cigarettes Smokeless Tobacco: Never Alcohol Use Standard Drinks/Week Comments Not Currently 0 (1 standard drink = 0.6 oz pur e alcohol) Sex and Gender Information Value Date Recorded Sex Assigned at Not on file Legal Sex Male 6:19 AM PRESS BREAKER Gender Identity Not on file Sexual Orientation Not on file Occupation Industry Job Start Date Job End Date Retired Not on file Not on file Not on file documented as of this encounter Plan of Treatment Not on file documented as of this encounter Procedures Procedure Name Priority Date/Time Associated Diagnosis Comments DERMATOPATHOLOGY Routine 03/15/2022 12:0 0 AM PRESS BREAKER documented in this encounter Results * DERMATOPATHOLOGY (03/15/2022 12:00 AM PRESS BREAKER) Case Report Dermatopathology Report Case: [id number] Authorizing Provider: Laron Prescott MD Collected: 03/15/2022 12:00 AM Ordering Location: [facility] DermPath Lab Received: 03/16/2022 11:33 AM Pathologist: Tasia Malone MD Specimen: Skin, right moravian 12:56 PM [facility] DERMATOPATHOLOGY [facility]ORATORY Final Diagnosis Specimen A. SKIN, right moravian: SQUAMOUS CELL CARCINOMA IN SITU, PRESENT AT THE BASE OF THE SPECIMEN (D04.39) (see microscopic description and comment) 12:56 PM [facility] DERMATOPATHOLOGY LABORATORY at [address] PRESS BREAKER Clinical History R/O BCC 12:56 PM [facility] DERMATOPATHOLOGY [facility]OR[facility] Gross Description Specimen A: Received is one formalin filled container labeled with the patient's name and designated right moravian. The specimen consists of a shave biopsy measuring [id number]. Jar 0. 12:56 PM [facility] DERMATOPATHOLOGY [facility]ORATORY Microscopic Description Specimen A. SKIN, right moravian: The epidermis shows parakeratosis, full thickness disorderly maturation of keratinocytes, mitoses at different levels, and dyskeratotic cells. The lesion extends to the base of the biopsy. COMMENT: An invasive squamous cell carcinoma cannot be ruled out. 12:56 PM [facility] DERMATOPATHOLOGY [facility]ORATORY Disclaimer An external and internal positive and negative controls are appropriate for the histochemical, immunohistochemical and immunofluorescence stain(s) in this case (if any), except where stated explicitly. The performance characteristics of the stain(s) cited in this report were developed and its performance characteristic determined by the Dermatopathology Laboratory at [facility], directed by Dr. Samy Gaspar. These tests need not be, and therefore are not, approved by the [place] Food and Drug Administration. The tests are used for clinical purposes. Billing Codes Specimen Charges Stain Charges 43942 1 12:56 PM [facility] DERMATOPATHOLOGY [facility]ORATORY Embedded Images 12:56 PM [facility] DERMATOPATHOLOGY [facility]ORATORY Pathology/Cytolog y TISSUE SPECIMEN FROM SKIN / Unknown 03/15/2022 03/16/2022 11:33 AM PRESS BREAKER Laron Prescott MD LAB - PATHOLOGY/CYTOLOGY ORDERA BLES Final Result DERMATOPATHOLOGY LABORATORY [facility] - Department of Dermatology [facility] [address] [place] [address], [address] [place] [address], [facility] [phone] documented in this encounter Visit Diagnoses Not on filedocumented in this encounter Care Teams Inspector Subassemblies Relationship Specialty Start Date End Date Elodia Shoemaker APRN-COY [address] [address] PCP - General 03/16/22 documented as of this encounter
--- OUTSIDE RECORDS SUMMARY | 2024-10-14 15:14 | XMS_ITS ---
Author Name Auto Generated, Auto Generated Organization [facility] Address [address] [place] [address] Phone [phone] Care Team Providers Care Mineral Resources Inspector Name Role Phone Shikha Gan Unavailable Edita Boo Unavailable Functional Status No Results Mental Status No Results Allergies and Intolerances Name Onset Date Reaction Severity methocarbamol (Allergy) TueJan 31 16:47:00 EDT 2022 terbinafine HCl (Allergy) TueJan 31 16:34:00 ED T 2022 Robaxin (Allergy) TueJan 31 16:34:00 EDT 2022 atorvastatin (Allergy) TueJan 31 16:34:00 EDT 2 023 Encounters Program Name Primary Diagnosis Admission Date/Time Dis charge Date/Time Chair [facility] TueFeb 21 14:00:00 EDT [...] sacrum Topical 1 Time Daily Indication: Wound [facility] Mar 01 07:32:00 EDT 2023Mar 07 01:00:00 EST 2023 TubersoL 5 tub. unit/0.1 mL intradermal injection solution Read Results VIAL (ML) Other 1 Time Weekly for 2 Weeks Indication: . Read results between 48-72 hours after 1st and 2nd (1 week apart). If positive do chest x-ray. [facility] Mar 01 07:39:00 2023Mar 07:00:00 EST 2023 TubersoL 5 tub. unit/0.1 mL intradermal injection solution 0.1 ml VIAL (ML) Intradermal 1 Time Weekly for 2 Weeks Indication: . 1st injection on admission, then one week after. 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 (12)* Code: * Start Date: TueMar 01 00:00:00 EDT 2023 * End Date: * Text: K3925M Cecilio receives a therapeutic & mechanically altered diet. (12) * S_Social Services- Cecilio's wishes will be followed (Advanced Directive/Code Status).* Code: * Start Date: TueMar 01 00:00:00 EDT 2023 * End Date: * Text: LSS_Social Services- Cecilio's wishes will be followed (Advanced Directive/Code Status). * LSS_Social Services- Cecilio will be involved in goal development to the best of his or her ability.* Code: * Start Date: TueMar 01 00:00:00 EDT 2023 * End Date: * Text: Estela Hernandes will be involved in goal development to the best of his or her ability. * Estela Hernandes has family/friends who are supportive.* Code: * Start Date: TueMar 01 00:00:00 EDT 2023 * End Date: * Text: Estela Hernandes has family/friends who are supportive. * Estela Fultons mobility level is different than prior level due to current medical condition.* Code: * Start Date: TueMar 01 00:00:00 EDT 2023 * End Date: * Text: Estela Fultons mobility level is different than prior level due to current medical condition. * Estela Hernandes has a dx of depression and is currently on an antidepressant.* Code: * Start Date: TueMar 01 00:00:00 EDT 2023 * End Date: * Text: Estela Hernandes has a dx of depression and is currently on an antidepressant. * Estela Hernandes will be involved in discharge planning.* Code: * Start Date: TueMar 01 00:00:00 EDT 2023 * End Date: * Text: Estela Hernandes will be involved in discharge planning. Resolved Concerns * Problem Emphysema, unspecified* Code: [...] EDT 2024 Systolic Blood Pressure 100.00 mm[Hg] [facility] Oct 29 10:41:43 EDT 4 Diastolic Blood Pressure 51.00 mm[Hg] [facility] Oct 29 10:41:43 EDT 2023 Pulse Oximetry 91.00 % [facility] 29 10:41 :43 EDT 4 Heart Rate 64.00 /min [facility] 29 10:41 :43 EDT 4 Body temperature 98.20 [degF] [facility] 29 10:4 1:43 EDT 2023 Respiratory rate 20.00 /min [facility] 29 10:4 1:43 EDT 2023 Pulse Oximetry 91.00 % [facility] 29 10:33 :42 EDT 4 Systolic Blood Pressure 101.00 mm[Hg] [facility] 28 23:56:10 EDT 2023 Diastolic Blood Pressure 59.00 mm[Hg] [facility] 28 23:56:10 EDT 2023 Pulse Oximetry 92.00 % [facility] 28 23:56 :10 EDT 2023 Pulse Oximetry 92.00 % [facility] 28 23:56 :10 EDT 2023 Heart Rate 68.00 /min [facility] 28 23:56 :10 EDT 2023 Body temperature 98.30 [degF] [facility] 28 23:5 6:10 EDT 4 Respiratory rate 18.00 /min [facility] 28 23:5 6:10 EDT 4 Systolic Blood Pressure 118.00 mm[Hg] [facility] 28 09:43:13 EDT 4 Diastolic Blood Pressure 71.00 mm[Hg] [facility] 28 09:43:13 EDT 4 Pulse Oximetry 99.00 % Tue [facility] 28 09:43 :13 EDT 2023 Pulse Oximetry 99.00 % [facility] 28 09:43 :13 EDT 4 Heart Rate 59.00 /min [facility] 28 09:43 :13 EDT 4 Body temperature 98.00 [degF] [facility] 28 09:4 3:13 EDT 4 Respiratory rate 20.00 /min [facility] 28 09:4 3:13 EDT 4 Systolic Blood Pressure 143.00 mm[Hg] [facility] 28 06:06:00 EDT 4 Diastolic Blood Pressure 78.00 mm[Hg] [facility] 28 06:06:00 EDT 2023 Pulse Oximetry 97.00 % [facility] 28 06:06 :00 EDT 2024 Heart Rate 68.00 /min Mon Oct 28 06:06 :00 EDT 2023 Body temperature 96.80 [degF] [facility] 06:0 6:00 EDT 2023 Respiratory rate 20.00 /min [facility] 06:0 6:00 EDT 2023 Systolic Blood Pressure 137.00 mm[Hg] [facility] Oct 27 22:12:45 EDT 2023 Diastolic Blood Pressure 69.00 mm[Hg] [facility] 27 22:12:45 EDT 2023 Pulse Oximetry 97.00 % [facility] 27 22:12 :45 EDT 2023 Pulse Oximetry 97.00 % [facility] 27 22:12 :45 EDT 4 Heart Rate 58.00 /min [facility] 27 22:12 :45 EDT 2023 Body temperature 98.20 [degF] [facility] 27 22:1 2:45 EDT 2023 Respiratory rate 18.00 /min [facility] 27 22:1 2:45 EDT 4 Body weight 139.60 [lb_av] [facility] 27 09:03 :51 EDT 2023 Systolic Blood Pressure 133.00 mm[Hg] [facility] 27 09:03:41 EDT 2023 Diastolic Blood Pressure 67.00 mm[Hg] [facility] 27 09:03:41 EDT 2023 Pulse Oximetry 94.00 % [facility] 27 09:03 :41 EDT 2023 Pulse Oximetry 94.00 % [facility] 27 09:03 :41 EDT 2023 Heart Rate 56.00 /min [facility] 27 09:03 :41 EDT 2023 Body temperature 97.80 [degF] [facility] 27 09:0 3:41 EDT 2023 Respiratory rate 20.00 /min [facility] 27 09:0 3:41 EDT 2023 Systolic Blood Pressure 116.00 mm[Hg] [facility] Oct 26 23:00:36 EDT 2023 Diastolic Blood Pressure 60.00 mm[Hg] [facility] Oct 26 23:00:36 EDT 2023 Pulse Oximetry 95.00 % [facility] Oct 26 23:00 :36 EDT 2023 Pulse Oximetry 95.00 % [facility] Oct 26 23:00 :36 EDT 2023 Heart Rate 58.00 /min [facility] Oct 26 23:00 :36 EDT 2023 Body temperature 98.20 [degF] [facility] Oct 26 23:0 0:36 EDT 4 [...] 00:09:40 EDT 2023 Pulse Oximetry 98.00 % [facility] Oct 26 00:09 :40 EDT 2023 Pulse Oximetry 98.00 % [facility] Oct 26 00:09 :40 EDT 4 Heart Rate 54.00 /min Sat Oct 26 00:09 :40 EDT 2023 Body temperature 98.00 [degF] Sat Oct 26 00:0 9:40 EDT 2023 Respiratory rate 18.00 /min [facility] Oct 26 00:0 9:40 EDT 4 [...] EDT 2023 Systolic Blood Pressure 102.00 mm[Hg] [facility] Oct 24 23:55:04 EDT 2023 Diastolic [...]
--- OUTSIDE RECORDS SUMMARY | 2024-10-14 15:14 | XMS_ITS | Clinical Summary ---
Author Organization [facility] Care Team Providers Care Non Licensed Nuclear Plant Operator Name Role Phone Unavailable Primary Care Provider [...]
--- OUTSIDE RECORDS SUMMARY | 2024-10-14 15:14 | XMS_ITS | Clinical Summary ---
Author Organization [facility] Address [address] [place] [address] Care Team Providers Care Magnet Valve Assembler Name Role Phone Dimitris Burrows Primary Care [...] (VITAMIN D-3) 2000 unit capsule Takes D3 33255 Units once a week Active nitroglycerin (nitroglycerin) [...] (10/11/2019): Added automatically from request for surgery [id number] Acoustic neuroma 10/27/2018 Bilateral cataracts 10/27/2018 Bone [...] radiation and chemotherapy. Patient was referred to [facility], he saw Dr. Martinez and [...] carcinoma in situ. 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 Gender Identity Not on file [...] Recently Relevant to Health Maintenance Insurance MEDICARE [facility] MEDICARE [place]IC[place] [facility] Advance Directives For more information, please contact: [phone] * Full Code (Latest Code Status on File) Date Activated Date Inactivated Comments 10/26/2019 8:41 AM 01/13/2020 12:53 PM Care Teams Magnet Valve Assembler Relationship Specialty Start Date End Date Dimitris Burrows PA [facility] [place] [address] PCP - General Internal Medicine 09/19/23
--- OUTSIDE RECORDS SUMMARY | 2024-10-14 15:14 | XMS_ITS | Data Portability ---
Author Organization [facility] [employer], Main Office Address [address] [place] [address] Assessment No assessment recorded. Plan of Treatment Reminders Order Date Submit Date Provider Last Modified By Organization Details Last Modified Time Details Appointments None recorded. Lab HbA1c (hemoglobin A1c), blood 2023 024 [email or web address] [facility], [address] [place], [address], 4 08:37:45 HbA1c (hemoglobin A1c), [facility] [address] [place], [address], 4 09:15:48 vitamin D, 25-hydroxy, total, serum 2023 024 [email or web address] 2 [facility], [address] [place], [address], 4 08:16:00 vitamin D, 25-hydroxy, total, serum 2023 024 [email or web address] 2 [facility], [address] [place], [address], 4 08:37:47 vitamin B12 + folate, serum or blood 2023 024 [email or web address] 2 [facility], [address] [place], [address], 4 08:37:47 magnesium, serum or plasma 2023 024 [email or web address] 2 [facility], [address] [place], [address], 4 08:37:47 lipid panel, serum 2023 024 [email or web address] 2 [facility], [address] [place], [address], 4 08:37:46 CK (creatine kinase), total, serum 2023 024 [email or web address] 2 [facility], [address] [place], [address], 4 08:37:46 CBC w/ auto diff 2023 024 [email or web address] 2 [facility], [address] [place], [address], 4 08:37:46 PSA, serum or plasma 2023 024 [email or web address] 2 [facility], [address] [place], [address], 4 08:16:00 HbA1c (hemoglobin A1c), blood 2023 024 [email or web address] 2 [facility], [address] [place], [address], 4 08:15:59 TSH, serum or plasma 2023 024 [email or web address] 2 [facility], [address] [place], [address], 4 08:37:46 T4, free, serum 2023 024 [email or web address] 2 [facility], [address] [place], [address], 4 08:37:46 pro BNP (pro B-type natriuretic peptide), serum or plasma 2023 024 [email or web address] 2 [facility], [address] [place], [address], 4 08:37:45 CMP, serum or plasma 2023 024 [email or web address] 2 [facility], [address] [place], [address], 4 08:37:45 TSH + free T4, serum 2022 023 [email or web address] [facility], [address] [place], [address], 3 08:20:49 Referral otolaryngol ogist referral - Please call patient to schedule an appointment . Thank you. 2023 [email or web address] Alexandro Sandoval MD, [address], [place], [address], 4 09:03:07 Procedures None recorded. Surgeries None recorded. Imaging None recorded. Medication Orders promethazin e-DM 6.25 mg-15 mg/5 mL oral syrup 2023 024 [facility], [facility] [place], [address], 4 16:42:55 prednisone 20 mg tablet 2023 [facility], [facility] [place], [address], 4 16:42:56 alprazolam 1 mg tablet 2023 024 [facility], [facility] [place], [address], 4 16:49:13 Biotene Dry Mouth Oral Rinse mouthwash [email or web address] [place] [address] Pharmacy [address], [address] [place], [address], 4 16:00:25 alprazolam 1 mg tablet 2023 024 [facility] [address], [facility] [place], [address], 4 16:00:26 simvastatin 20 mg tablet 2022 023 [facility], [facility] [place], [address], 3 17:08:16 escitalopra m 20 mg tablet 2022 023 [facility], [address] [place], [address], 3 17:08:47 Patient TargetsNo targets recorded. Patient Instructions Encounter Date Encounter Id Patient Instructions Last Modified By Organization Details Last Modified Time 09/28/2023 [id number] dementia rating scale-2* Not available 09/28/2023 16:01:28 depression screening* [email or web address] Not available 10/12/2023 16:46:41 alcohol misuse* [email or web address] Not availab le 10/12/2023 16:46:41 multi-dimensiona l health assessment questionnaire* Not available 09/28/2023 16:00:28 Personalized [facility] Plan and Screening Recommendations Advance Directives - Do you have one? No I have no recommedations. Advance Directives - Do we have your advance directive on file in your health record? Primary Prevention/Interven tion (prevents or decreases the chance of common diseases from occurring) Smoking Risk: Non Smoker I have no recommedations. Alcohol Misuse Screening: Negative I have no recommedations. Weight: Appropriate try to lose 10% of your body weight Physical activity: Need more exercise/physical activity decrease sitting time to no more than 5hr/day Nutrition: Average Eat Heart Healthy Diet Fall Risk (screened today): Low I have no recommedations. Vaccines Pneumococcal: No further needed Influenza: Your next one in the fall of this year Chronic Disease Risks Stroke: Low Risk Active diagnosis, Continue current treatment plan Heart Attack: Low risk Active diagnosis, Continue current treatment plan Clogging of the Arteries: Low risk Active diagnosis, Continue current treatment plan Diabetes: Low Risk Active diagnosis, Continue current treatment plan Secondary Prevention/Interven tion (detects treatable diseases before they may cause symptoms, disability, or ) Prostate Cancer Screening: PSA recommeded today No digital rectal exam screening necessary Colon Cancer Screening: Colonoscopy No screening necessary Date Screening Last Performed: 2021 Eye Disease Screening: No Eye exam necessary Dementia Risk: Low I have no recommendations Depression Screening: Negative Active diagnosis, Continue current treatment plan Not available 09/28/2023 16:12:59 Reason for Referral Wagon [employer] Referral patrick Larsen Please call patient to schedule an appointment. Thank you. Referring Physician: Dimitris Burrows, Family Medicine, Encounter Date: 02/13/2024 Results Created Date Observation Date Name Description Value Unit Range Abnormal Flag Note LastModifiedBy Organization Detail LastModifiedTime 01/07/2001/06/2023 T4 FREE free T4 2.33 NG/dL 0.78-2 .19 high Not Available [facility] ([facility]) [address] [place], [address], 01/06/2023 20:21:06 01/07/2001/06/2023 TSH thyroid-stim ulating hormone 0.358 uIU/m L 0.465- 4.680 low Not Available [facility] (Lab) [address] [place], [address], 01/06/2023 20:32:11 01/20/2001/18/2023 CT, abdom en + pelvi s, w/ contr ast No observ ation record ed. [email or web address] [facility] [address], [address], 01/19/2023 15:45:12 02/18/20 23 02/17/2023 XR, chest , 2 view No observ ation record ed. [email or web address] [facility] [address], [place], [address], 02/18/2023 09:46:32 02/18/20 23 02/17/2023 CT, angio gram, chest + abdom en + pelvi s, w/ contr ast No observ ation record ed. [address], [place], [address], 02/18/2023 09:47:37 02/16/20 24 02/16/2024 CT, head + brain , w/o contr ast No observ ation record ed. [address], [place], [address], 02/17/2024 09:05:36 02/16/20 24 02/16/2024 XR, elbow , 2 view No observ ation record ed. [address], [place], [address], 02/17/2024 09:05:23 02/16/20 24 02/16/2024 XR, wrist , 3 or more view No observ ation record ed. [address], [place], [address], 02/17/2024 09:05:01 02/16/2002/16/2024 XR, chest , 2 view No observ ation record ed. [address], [place], [address], 02/17/2024 09:04:43 Result Notes Documentation Provider Name and Address Organization Details Recorded Time Influenza (a+b) Ag, Immunofluorescence, Unspecified Specimen : flu and covid MARISOL [place] - [facility] [employer] [facility] 02/17/2024 09:03:43 Problems Name Problem SNOMED Code Status Onset Date Resolution Date Notes Provider Name and Address Organization Details Recorded Time Lesion of skin of face 51144019304 6 Completed Not Available [facility] 3 08:09:05 Open wound of toe 779186061 Completed Not Available [facility] 3 08:09:06 Bone pain 04342575 Active Not Available [facility] 3 08:09:06 Acoustic neuroma 766645827 Active Not Available [facility] 3 08:09:06 Chronic obstructi ve pulmonary disease 40254994 Active Not Available [facility] 3 08:09:06 Constipat ion 11198477 Active Not Available [facility] 3 08:09:06 Anti-nucl ear factor detected 549998016 Active Not Available [facility] 3 08:09:06 Insomnia 260975718 Active Not Available [facility] 3 08:09:06 Full thickness rotator cuff tear 037449366 Active Not Available [facility] 3 08:09:06 Pain in scrotum 16469805 Completed Not Available [facility] 3 08:09:06 Abdominal pain 22124129 Completed Not Available [facility] 3 08:09:06 Headache disorder 572268895 Completed Not Available [facility] 3 08:09:06 Lacunar infarctio n 490711208 Active Not Available [facility] 3 08:09:06 Pneumonia 612154173 Completed Not Available [facility] 3 08:09:06 Gastroeso phageal reflux disease 250171471 Active Not Available [facility] 3 08:09:06 Muscle weakness 14591981 Completed Not Available [facility] 3 08:09:07 Transient cerebral ischemia 698474607 Active Not Available [facility] 3 08:09:07 Edema 849896816 Active Not Available [facility] 3 08:09:07 Shoulder joint pain 727682461 Active Not Available [facility] 3 08:09:07 Low back pain 453934576 Active Not Available [facility] 3 08:09:07 Pain in calf 641449820 Completed Not Available [facility] 3 08:09:07 Pain in thumb 702252571 Completed Not Available [facility] 3 08:09:07 Injury of tendon of the rotator cuff of shoulder 966502498 Active Not Available [facility] 3 08:09:07 Depressiv e disorder 87783564 Active Not Available [facility] 3 08:09:07 Malignant neoplasm of lung 313917895 Active Not Available [facility] 3 08:09:07 Malignant tumor of tongue 186562562 Active Not Available [facility] 3 08:09:07 Malignant tumor of larynx 422626478 Active Not Available [facility] 3 08:09:08 Chronic pain syndrome 934989124 Completed Not Available [facility] 3 08:09:08 Hypertens francisco disorder 83785499 Active Not Available [facility] 3 08:09:08 Osteoarth ritis 990703806 Active Not Available [facility] 3 08:09:08 Umbilical hernia 938131106 Active Not Available [facility] 3 08:09:08 Generaliz ed atheroscl erosis 49948954 Active Not Available [facility] 3 08:09:08 Onychomyc osis of toenails 918734695 Completed Not Available [facility] 3 08:09:08 Dysphagia 22753795 Completed Not Available [facility] 3 08:09:08 Hypothyro idism 35142085 Active Not Available [facility] 3 08:09:08 Disorder of rotator cuff 307892736 Active Not Available [facility] 3 08:09:09 Congestiv e heart failure 81701961 Active Not Available [facility] 3 08:09:09 Cervical disc disorder 219069763 Active Not Available [facility] 3 08:09:09 Lytic lesion of bone on X-ray 614154223 Active Not Available [facility] 3 08:09:09 Cramp in lower limb 559189330 Completed Not Available [facility] 3 08:09:09 Pain of shoulder region 38941287 Active Not Available [facility] 3 08:09:09 Foot pain 77112997 Completed Not Available [facility] 3 08:09:09 Anxiety 72771989 Active Not Available [facility] 3 08:09:10 Pain of hip region 51229596 Active Not Available [facility] 3 08:09:10 Spermatoc george 49231315 Active Not Available [facility] 3 08:09:10 Hoarse 52503355 Active Not Available [facility] 3 08:09:10 Chronic fatigue syndrome 34957911 Active Not Available [facility] 3 08:09:10 Coronary arteriosc lerosis 67052893 Active Not Available [facility] 3 08:09:10 Hyperlipi demia 68683517 Active Not Available [facility] 3 08:09:10 Pain of wrist region 97701209 Active Not Available [facility] 3 08:09:11 Disorder of capillari es 26177797 Completed Not Available [facility] 3 08:09:11 Carotid artery stenosis 96421973 Active Not Available [facility] 3 08:09:11 Otitis media 52411289 Completed Not Available [facility] 3 08:09:11 Muscle pain 12584076 Completed Not Available [facility] 3 08:09:11 Hypersomn ia 54656872 Active Not Available [facility] 3 08:09:11 Palpitati ons 38588722 Completed Not Available [facility] 3 08:09:12 Chronic pain 21528534 Active Not Available [facility] 3 08:09:12 Fatigue 98155560 Active Not Available [facility] 3 08:09:12 Pain in limb 87263944 Completed Not Available [facility] 3 08:09:12 Skin nodule 01308787 Active Not Available [facility] 3 08:09:12 Bilateral cataracts 60403058 Active Not Available [facility] 3 08:09:12 Pain of right shoulder joint 72805920632 735813 Active 2022 Ramon Reeves MD [address] [place] [address], [facility] [address], [place], [address] , [facility] 3 16:21:52 Abnormal gait due to impairmen t of balance 534510673 Active 2022 Ramon Reeves MD [address], [place], [address] , [facility] [email or web address] [facility] [employer] [facility] 3 16:22:33 Esophagea l dysphagia 01063099 Active 2022 Ramon Reeves MD [address], [place], [address] , [facility] [email or web address] [facility] [employer] [facility] 3 16:24:16 Cerebrova scular disease 17247064 Active 2022 Ramon Reeves MD [address], [address], [place], [address] , [employer] [facility] [employer] [facility] 3 16:25:16 Onychomyc osis 853187214 Active 2022 Ramon Reeves MD [address], [place], [address] , [facility] [email or web address] [facility] [employer] [facility] 3 17:06:28 Mixed anxiety and depressiv e disorder 424315942 Active 2022 Ramon Reeves MD [address], [place], [address] , [facility] [email or web address] [facility] [employer] [facility] 3 17:08:19 Rectal hemorrhag e 15633389 Active 2022 Nicci Newton COUNTER CASER null, [facility] [employer] [facility] 3 11:41:18 Hemorrhoi ds 92286623 Active 2022 Nicci Newton COUNTER CASER null, [facility] 3 11:41:50 Xerostomi a 74076226 Active 2023 LETY Padilla [address], [address], [place], [address] , [facility] [employer] [facility] 4 15:40:22 Screening for malignant neoplasm of prostate Active 2023 LETY Padilla [address], [place], [address] , [facility] [email or web address] [facility] 4 15:55:08 At increased risk of nutrition al deficit 973047482 Active 2023 LETY Padilla [address] [facility] [place] [address], [place], [address] , [facility] [email or web address] [facility] [employer] [facility] 4 15:55:58 Excessive thirst 53695999 Active [address] [facility] [place] [address], [place], [address] , [employer] [facility] [employer] [facility] 4 16:45:25 Cough 02153970 Active [address] [facility] [place] [address], [place], [address] , [employer] [facility] [employer] [facility] 4 16:42:01 Vitamin D deficienc y 67584163 Active 2023 LETY Padilla [address] [facility], [place] [address], [place], [address] , [employer] [facility] 16:46:56 Notes:Some problems listed i n Document: #[id number] could not be added to this patient's chart. Please review this document and add these problems to the patient's chart manually as needed. Problem Notes None recorded. Procedures Surgical History Date Name Laterality Status Provider Name and Address Organization Details Recorded Time 4 Medicare Wellness CPT Code, subsequent completed Antoinette Hoskins RN [facility] [employer] [facility] 09/28/2023 15:13:38 Imaging Results None recorded. Procedure Notes None recorded. Medical Equipment None Reported. Allergies Allergen ID Allergen Name Allergen Category Reaction Reaction Severity Criticality Documentation Date Start Date Code Code System Note Provider Name and Address Organization Details Recorded Time 38740 terbinafi ne medicatio n other Not available Not available 06/30/2022 51662 RxNorm nerve s, depre ssion diarr hea Not Available [facility] 3 08:13:23 19033 Robaxin medicatio n nausea Not available Not available 06/30/202260435 5 RxNorm Not Available [facility] 3 08:13:23 37713 methocarb iona medicatio n Not available Not available Not available 06/30/2022 6845 RxNorm pt says that he doesn 't remem sharon. He belie ves it makes him nause ous Not Available [facility] 3 08:13:23 59937 atorvasta tin medicatio n nausea Not available Not available 06/30/2022 56489 RxNorm Not Available [facility] 3 08:13:23 08666 Zocor medicatio n Not available Not available Not available 06/30/2022 57029 3 RxNorm incre ase CK Not Available [facility] 3 08:13:23 Medications Name Sig Start Date [...] Updated DateTime 4 170.18 cm 20.8 kg/m2 94319.7 9 g 98.2 [degF] 58 /min 98 % 98 % 16 /min 116 mm[Hg] 72 mm[Hg] Antoinette Hoskins RN [facility] [employer] [facility] 4 15:21:41 Date Recorded Body height Body mass index (BMI) Body weight Body temperature Heart rate Oxygen saturation Oxygen saturation in Arterial blood by Pulse oximetry Systolic blood pressure Diastolic blood pressure Provider Name and Address Organization Details Last Updated DateTime 3 170.18 cm 23.8 kg/m2 98554.0 4 g 97.5 [degF] 75 /min 98 % 98 % 142 mm[Hg] 80 mm[Hg] MARIAELENA Trevizo [facility] [employer] [facility] 3 16:55:55 Date Recorded Body height Body mass index (BMI) Body weight Body temperature Heart rate Oxygen saturation Oxygen saturation in Arterial blood by Pulse oximetry Systolic blood pressure Diastolic blood pressure Provider Name and Address Organization Details Last Updated DateTime 3 170.18 cm 22.6 kg/m2 53699.3 g 98.2 [degF] 62 /min 97 % 97 % 110 mm[Hg] 66 mm[Hg] Nicci hall CMA [facility] [employer] [facility] 3 15:47:16 Date Recorded Body height Body mass index (BMI) Body weight Body temperature Heart rate Oxygen saturation Oxygen saturation in Arterial blood by Pulse oximetry Systolic blood pressure Diastolic blood pressure Provider Name and Address Organization Details Last Updated DateTime 4 170.18 cm 21.6 kg/m2 60650.7 5 g 98.1 [degF] 55 /min 97 % 97 % 116 mm[Hg] 86 mm[Hg] Antoinette Hoskins RN [facility] [employer] [facility] 4 16:28:24 Date Recorded Body height Body mass index (BMI) Body weight Body temperature Heart rate Oxygen saturation Oxygen saturation in Arterial blood by Pulse oximetry Systolic blood pressure Diastolic blood pressure Provider Name and Address Organization Details Last Updated DateTime 3 170.18 cm 20.7 kg/m2 51129.1 9 g 97.8 [degF] 66 /min 98 % 98 % 102 mm[Hg] 56 mm[Hg] Monalisa Castro MA [facility] [employer] [facility] 3 15:52:32 Social History Question Answer Notes LastModified by [...] preservative 1 completed Nicci Newton CMA null, [facility] [employer] [facility] 01/06/2023 15:47:24 COVID-19, mRNA, LNP-S, PF, 100 mcg/0.5mL dose or 50 mcg/0.25mL dose 1 completed NIDIA Myles, [place] [email or web address] [facility] 01/06/2023 15:47:24 COVID-19, mRNA, LNP-S, PF, 100 mcg/0.5mL dose or 50 mcg/0.25mL dose 1 completed Nicci Newton CMA null, [employer] [facility] 01/06/2023 15:47:24 Influenza, split virus, quadrivalent, preservative 0 completed Nicci Newton CMA null, [employer] [facility] 01/06/2023 15:47:24 Influenza, split virus, quadrivalent, preservative 0 completed Nicci Newton CMA null, [facility] 01/06/2023 15:47:24 Hep B, unspecified formulation 0 completed Not Available [facility] 06/30/2022 08:13:14 Influenza, split virus, trivalent, preservative 5 completed Not Available [facility] 06/30/2022 08:13:14 Pneumococcal Conjugate, unspecified formulation 5 completed Not Available [facility] 06/30/2022 08:13:14 Influenza, high-dose, quadrivalent, PF 0 completed Not Available [facility] 06/30/2022 08:13:14 Influenza, high-dose, trivalent, PF 0 completed Not Available [facility] 06/30/2022 08:13:15 zoster recombinant 0 completed Not Available [facility] 06/30/2022 08:13:15 Hep A, adult 0 completed Not Available [facility] 06/30/2022 08:13:15 Hep B, adult 9 completed Nicci Newton CMA null, [facility] 01/06/2023 15:47:24 Hep A, adult 9 completed Not Available [facility] 06/30/2022 08:13:15 Influenza, split virus, quadrivalent, PF 6 completed Not Available [facility] 06/30/2022 08:13:15 Influenza, split virus, trivalent, preservative 4 completed Nicci Newton, COUN[employer]ER null, [facility] 01/06/2023 15:47:24 Influenza, split virus, trivalent, preservative 3 completed Nicci Newton COUNTER CASER null, [facility] 01/06/2023 15:47:24 Influenza, high-dose, trivalent, PF 4 completed LETY Padilla [facility] [address], [place] [address], [place], [address], [facility] [employer] [facility] 03/08/2024 10:18:40 Past Encounters Encounter ID Performer Location Encounter Start Date Encounter Closed Date Diagnosis/Indication Diagnosis SNOMED-CT Code Diagnosis ICD10 Code Diagnosis Note [id number] Ramon Reeves MD [facility] [address] [place] [address] 11/03/2022 15:34:05 11/03/2022 16:45:57 Pain of right shoulder joint 0586144423 5884758 M25.511 S/P fracture x 2 Abnormal g ait due to impairment of balance 226864902 R26.89 Hypothyroidism 42496312 E03.9 Will check thyroid fx and decide what dose of euthyrox he needs. Esophageal dysphagia 408 03582 R13.19 Cerebrovas cular disease 25633479 I67.9 [id number] Ramon Reeves MD [facility] Emmie gonzalez [facility] [place] [address] 12/06/2022 16:49:15 12/06/2022 17:11:41 Hypothyroidism 68689964 E03.9 Will check thyroid fx in 1 month Onychomycosis 691148885 B35.1 RTC for nail removal. Hyperlipidemia 09416902 E78.5 Mixed anxi ety and depressive disorder 063562327 F41.8 [id number] Ramon Reeves MD [facility] [address] [place] [address] 01/06/2023 15:40:29 01/06/2023 16:43:55 Pre-surgery evaluation 791305401 Z01.818 Cleared for surgery pending clearance by [facility]olog[facility] shoulder joint 7015073549 5254113 M25.511 S/P fracture x 2 [id number] Ramon Reeves MD [facility] Emmie gonzalez [facility] [place] [address] 03/16/2023 15:34:43 03/16/2023 16:03:31 History of operative procedure on shoulder 166221997 Z98.890 Doing well. Continue PT [id number] John West MD [facility] Emmie llaustin [address] [facility] [place] [address] 09/28/2023 15:04:11 09/28/2023 15:46:56 Adult health examination 245670361 Z00.00 Screening for disorder 320795380 Z13.9 Carotid ar roz stenosis 95459593 I65.29 Xerostomia 83086841 R68. 2 Transient cerebral ischemia 492654262 G45.9 Osteoarthritis 387213126 M19.90 Low back pain 830455862 M54.50 Lacunar infarction 11587 8000 I63.81 Insomnia 442410014 G47.0 0 Hypothyroidism 75253260 E03.9 Hypertensive disorder 38 282371 I10 Gastroesop hageal reflux disease 346499397 K21.9 Esophageal dysphagia 408 67615 R13.19 Cerebrovas cular disease 91803498 I67.9 Congestive heart failure 52070076 I50.9 Hyperlipidemia 74017798 E78.5 Screening for malignant neoplasm of prostate 991328189 Z12.5 At [facility] risk of nutritional deficit 801317115 Z91.89 Anxiety 72306743 F41.9 Excessive thirst 5668426 7 R63.1 polydipsia Long-term current use of drug therapy 005667023 Z79.822 [id number] John West MD [facility] Emmie gonzalez [address] [facility] [place] [address] 02/13/2024 15:58:55 02/13/2024 16:54:06 Administration of influenza vaccine 43033281 Z23 Hoarse 90679790 R49.0 Hypothyroidism 41589046 E03.9 Cough 96553639 R05.9 Anxiety 39181507 F41.9 Health Concerns Section Related Observation LastModified by Organization Detai ls LastModified Time None Recorded Concern Status LastModified by Organization Details LastModified Time None Recorded Advance Directives Directive None Recorded Payers Insurance Date Sequence Insurance Name Policy Number Policy Sebastian Covered Member ID Sebastian Member ID Guarantor Name 06/23/2024 1 [place] Cecilio Searssper [id number] Cecilio Ty Rubio 06/23/2024 2 [employer] [place] (MEDICARE SUPPLEMENT) Cecilio Searssper [id number] Cecilio Searssper Notes Date Note Type Note Provider Name and Address Organization Details Recorded Time 12/06/2022 text/html Here today after having esophagus dilated. Is taking the euthyrox 175 mcg. 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 Needs lexapro and simvastatin refilled.Has a fungal infection of left index fingernail. The nail is loose and catches on things. Wants this removed. Ramon Reeves MD [address], [facility] [address], [place], [address], [employer] 12/07/2022 06:22:20 01/06/2023 text/html Here today for right shoulder surgery is scheduled for 01/28/23. He had an echo cardiogram and nuclear stress test and is going to have cardiac clearance. No hx of problems with anesthesia.No complaints today.Needs refill of vicodin and xanax and baclofen and nexium. Ramon Reeves MD [address], [address], [place], [address], [employer] 01/07/2023 08:44:08 03/16/2023 text/html Here today for f /u of right shoulder surgery. Is in rehab now and will be going to [place] after that. He is doing ok.Going to have colonoscopy in 04/23 Still having swallowing problems. No issues today. Ramon Reeves MD [address], [facility] [address], [place], [address], [facility] [employer] [facility] 03/16/2023 20:26:53 02/13/2024 text/html dry mouth phlegm , cough , several months LETY Padilla [address], [facility] [address], [place], [address], [facility] [employer] [facility] 03/08/2024 10:20:55
--- OUTSIDE RECORDS SUMMARY | 2024-10-14 15:14 | XMS_ITS | Encounter Summary ---
Author Organization [facility] Address [address] [facility] [place] [address] Care Team Providers Care Unit Manager Name Role Phone Elodia Shoemaker APRN-INJECTION MOLDING TECHNICIAN Primary Care Provider + Encounter Details Date Type Department Care Team (Late st Contact Info) Description 06/08/[address] [facility] Care D[facility] Lab [address] [facility] [place] [address] Laron Prescott MD [address] [place] [address] Social History Tobacco Use Types Packs/Day Years Used Date Smoking Tobacco: Every Day Cigarettes Smokeless Tobacco: Never Alcohol Use Standard Drinks/Week Comments Not Currently 0 (1 standard drink = 0.6 oz pur e alcohol) Sex and Gender Information Value Date Recorded Sex Assigned at Not on file Legal Sex Male 6:19 AM RETAIL CUSTODIAL ASSOCIATE Gender Identity Not on file Sexual Orientation Not on file Occupation Industry Job Start Date Job End Date Retired Not on file Not on file Not on file documented as of this encounter Plan of Treatment Not on file documented as of this encounter Procedures Procedure Name Priority Date/Time Associated Diagnosis Comments DERMATOPATHOLOGY Routine 06/07/2022 3:33 AM RETAIL CUSTODIAL ASSOCIATE documented in this encounter Results * DERMATOPATHOLOGY (06/07/2022 3:33 AM RETAIL CUSTODIAL ASSOCIATE) Case Report Dermatopathology Report Case: [id number] Authorizing Provider: Laron Prescott MD Collected: 06/07/2022 03:33 AM Ordering Location: [facility] DermPath Lab Received: 06/08/2022 01:18 PM Pathologist: Tasia Malone MD Specimen: Skin, left helix 4:36 PM [facility] DERMATOPATHOLOGY LABORATORY Final Diagnosis Specimen A. 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 The specimen consists of a shave biopsy measuring 7x5x3, 3x3x2 mm. Jar 0. 4:36 PM [facility] DERMATOPATHOLOGY LABORATORY Microscopic Description Specimen A. SKIN, left helix: The epidermis shows parakeratosis, full thickness disorderly maturation of keratinocytes, mitoses at different levels, and dyskeratotic cells. There is a column of marked compact hyperkeratosis. Additional deeper sections were obtained and reviewed. 4:36 PM [facility] DERMATOPATHOLOGY LABORATORY Disclaimer An external and internal positive and negative controls are appropriate for the histochemical, immunohistochemical and immunofluorescence stain(s) in this case (if any), except where stated explicitly. The performance characteristics of the stain(s) cited in this report were developed and its performance characteristic determined by the Dermatopathology Laboratory at [facility], directed by Dr. Samy Gaspar. These tests need not be, and therefore are not, approved by the [place] Food and Drug Administration. The tests are used for clinical purposes. Billing Codes Specimen Charges Stain Charges 85063 1 3 4:36 PM [facility] DERMATOPATHOLOGY LABORATORY Embedded Images 4:36 PM [facility] DERMATOPATHOLOGY LABORATORY Pathology/Cytolo gy TISSUE SPECIMEN FROM SKIN / Unknown 06/07/2022 3:33 AM RETAIL CUSTODIAL ASSOCIATE 06/08/2022 1:18 PM RETAIL CUSTODIAL ASSOCIATE Laron Prescott MD LAB - PATHOLOGY/CYTOLOGY ORDERA BLES Final Result DERMATOPATHOLOGY LABORATORY [facility] - Department of Dermatology [facility] Specialized Medicine [address] [place] [address], [address] [phone] documented in this encounter Visit Diagnoses Not on filedocumented in this encounter Care Teams Unit Manager Relationship Specialty Start Date End Date Elodia Shoemaker APRN-INJECTION MOLDING TECHNICIAN [address] [address] PCP - General 03/16/22 documented as of this encounter
--- OUTSIDE RECORDS SUMMARY | 2024-10-14 15:15 | XMS_ITS | Encounter Summary ---
Author Organization [facility] Facility Care Team Providers Care Manager Air Name Role Phone Elodia Shoemaker NP Primary Care Provider [phone] No, Physician Primary Care Provider Dimitris Burrows Primary Care Provider + Encounter Details Date Type Department Care Team (Latest Contact Info) Description 08/26/2016 Orders Only [facility] ProviderSusan MD [address] [place] [address] Social History Tobacco Use Types Packs/Day Years Used Date Smoking Tobacco: Never Assessed Alcohol Use Standard Drinks/Week Comments No 0 (1 standard drink = 0.6 oz pur e alcohol) Sex and Gender Information Value Date Recorded Sex Assigned at Not on file Legal Sex Male 3:06 AM INSURANCE SALES SPECIALIST Gender Identity Not on file Sexual [...] on filedocumented in this encounter Care Teams Manager Air Relationship Specialty Start Date End Date Elodia Shoemaker NP PCP - General 07/07/16 01/04/23 No, Physician PCP - General 09/08/23 09/18/23 Dimitris Burorws PA [facility] [place] [address] PCP - General Internal Medicine 09/19/23 documented as of this encounter
--- OUTSIDE RECORDS SUMMARY | 2024-10-14 15:15 | XMS_ITS | Encounter Summary ---
Author Organization [facility] Facility Care Team Providers Care Sweeping Compound Blender Name Role Phone Elodia Shoemaker NP Primary Care Provider No, Physician Primary Care Provider [phone] Dimitris Burrows Primary Care Provider + Encounter Details Date Type Department Care Team (Latest Contact Info) Description 07/07/2016 Orders Only [facility]INCONV ProviderSusan MD [address] [place] [address] Social History Tobacco Use Types Packs/Day Years Used Date Smoking Tobacco: Never Assessed Alcohol Use Standard Drinks/Week Comments No 0 (1 standard drink = 0.6 oz pur e alcohol) Sex and Gender Information Value Date Recorded Sex Assigned at Not on file Legal Sex Male 3:06 AM ODD PIECE CHECKER Gender Identity Not on file Sexual Orientation Not on file documented as of this encounter Plan of Treatment Not on file documented as of this encounter Procedures Procedure Name Priority Date/Time Associated Diagnosis Comments SCAN - PATHOLOGY 07/07/2016 12:0 0 AM ODD PIECE CHECKER documented in this encounter Results * SCAN - PATHOLOGY (07/07/2016 12:00 AM ODD PIECE CHECKER) Narrative 07/07/2016 12:00 AM ODD PIECE CHECKER Ordered by an unspecified provider. Historical Provider Final Res ult documented in this encounter Visit Diagnoses Not on filedocumented in this encounter Care Teams Sweeping Compound Blender Relationship Specialty Start Date End Date Elodia Shoemaker NP PCP - General 07/07/16 01/04/23 No, Physician PCP - General 09/08/23 09/18/23 Dimitris Burrows PA [facility] [place] [address] PCP - General Internal Medicine 09/19/23 documented as of this encounter
--- OUTSIDE RECORDS SUMMARY | 2024-10-14 15:15 | XMS_ITS ---
Author Organization [facility] Address [address] [place], [place] [address] Care Team Providers Care Armor Officer Name Role Phone Ramon Adam Unavailable Unavailable NATACHA MISTRY Unavailable [phone] REASON FOR VISIT in hospital Encounters Encounter Location Date Provider Diagnosis [facility] [address] [facility] [address], [place] [address] 03/20/2024 NATACHA MISTRY Plan Of Treatment No Information Progress Notes * DENNIS BERGERONOB:1950 (73 yo M)Acc No.[id number]:03/20/2024 Patient: ALEXIA JASON Provider: Jamie Mistry DPM :1950 A ge:73 Y S ex:Male Date:03/20/2024 Address:[address] [place], [place] [address] Subjective: * Chief Complaints: * 1 . In hospital. * Medical History: Objective: * Vitals: Assessment: Plan: * Treatment: * Billing Information: * Visit Code: * Procedure Codes: * Electronic signature of NATACHA MISTRY DPM on 10/14/2024 at 03:14 PM CDT Sign off status: Pending * Provider: Jamie Mistry DPM Date: 05/20/2023 Generated for Printi ng/Faxing/eTransmitting on: 0 10/14/2024 03:14 PM CDT
--- OUTSIDE RECORDS SUMMARY | 2024-10-14 15:15 | XMS_ITS | Patient Health Record ---
Author Organization [facility] Address [address] [place], [place] [address] Care Team Providers Care Corrosion Control Specialist Name Role Phone Ramon Adam Unavailable Unavailable NATACHA MISTRY Unavailable [phone] Allergies No Known Allergies Reason For Referral [...] Location Date Provider Diagnosis [facility] [address] [place], [place] [address] 10/25/2023 NATACHA SNOOK Tinea unguium B35.1 ; Pain in right toe(s) M79.674 ; Pain in left toe(s) M79.675 ; Atherosclerosis of [place] arteries of extremities with intermittent claudication, bilateral legs I70.213 and Acquired keratosis [keratoderma] palmaris et plantaris L85.1 [facility] [address] [place], [place] [address] 12/27/2023 NATACHA SNOOK Tinea unguium B35.1 ; Pain in right foot M79.671 ; Pain in left foot M79.672 ; Atherosclerosis of [place] arteries of extremities with intermittent claudication, bilateral [...] - M79.675) 10/25/2023 Atherosclerosis of [place] arteries of extremities with intermittent claudication, bilateral legs (ICD-10 - I70.213) 12/27/2023 Atherosclerosis of [place] arteries of extremities with intermittent claudication, bilateral [...] Date Coverage End Date Medicare Part B [place] [address] [place]IE ACKER[place] [address] [id number] ALEXIA VIDAL Self - patient is the insured [facility] [employer] [address] [place] [place] [address] [id number] ALEXIA VIDAL Self - patient is the insured Medical (General) History Medical History History ICD Code acid reflux Cancer (type of cancer) GERD Leg/Feet cramps Respiratory disease Skin Disorder Arthritis skin cancer Heart Disease Back Trouble Radiation therapy hypertension Lung Disease Surgical History Surgery Date(Month/Year) shoulder surgery 06/2022 heart bypass 2002 knee replacement 2005
--- OUTSIDE RECORDS SUMMARY | 2024-10-14 15:15 | XMS_ITS | Patient Health Record ---
Author Organization [facility] Address [address] [facility] [address] [place], [place] [address] Care Team Providers Care Meter Installer Name Role Phone Elodia Rivero Primary Care Provider Yimi Vail Unavailable [phone] PER GARCIA MD Unavailable Unavailable ALLERGIES Allergen (clinical drug ingredient) Drug/Non Drug Allergy documented on EMR Reaction Allergy Type Onset Date Status atorvastatin atorvastatin Unknown Drug Allergy A ctive terbinafine Unknown Drug Allergy Activ e methocarbamol Robaxin Unknown Drug Allergy Act francisco REASON FOR REFERRAL No Information MEDICATIONS Medication SIG (Take, Route, Frequency, Duration) Notes Start Date End Date Status ALPRAZolam 1 mg 1 tab(s) orally 3 ti mes a day Active acetaminophen 650 mg orally every 8 hours Active Ranexa 500 mg 1 tab(s) orally 2 ti mes a day Active Voltaren Gel - for upper body joint 1% 2 g per joint apply topically to affected areas 4 times a day as needed Active levothyroxine 125 mcg (0.125 mg) 1 tab(s) orally once a day Active Nitrolingual 400 mcg spray Act francisco albuterol 2.5 mg/3 mL (0.083%) 3 mL inhaled every 6 hours Active indomethacin 50 mg orally A ctive simvastatin 20 mg 1 tab(s) orally once a day (at bedtime) Active Vitamin B2 100 mg 4 tab(s) orally once a day Active Acetaminophen-Hydrocodone Bitartrate 325 mg-10 mg 1 tab(s) orally 4 times a day for 30 days 04/16/2021 Active Pennsaid 2% 2 pumps applied topically to knees 2 times a day as needed Active multivitamin Multiple Vitamins 1 cap(s) orally once a day Active traMADol 50 mg 1 tab(s) orally ever y 4 hours for 30 days 02/03/2021 Active Lexapro 20 mg 1 tab(s) orally once a day Active Nitroglycerin Primary Pump, 48 Active Trelegy Ellipta Acti ve NexIUM 40 mg 1 cap(s) orally once a day Active isosorbide mononitrate 60 mg 1 tab(s) or ally 2 times a day Active baclofen 10 mg 1 tab(s) orally 3 ti mes a day Active aspirin 81 mg 2 tab(s) orally once a day Active lisinopril 5 mg 1 tab(s) orally once a day Active Vitamin D3 34866 intl units 1 cap(s) ora lly once a week Active carvedilol 3.125 mg 1 tab(s) orally 2 ti mes a day Active SOCIAL HISTORY Tobacco Use: Social History Observation Description Date Details (start date - stop date) Former Smoker NA - NA Sex Assigned At : Social History Observation Description Sex Assigned At Unknown Tobacco Use: Question Answer Notes Smoking Status former smoker PROBLEMS Problem Type ICD Code Onset Dates Problem Status W/U Status Risk SNOMED Code Notes Problem Smoker (F17.200) Active confirmed 30783 002 Problem Other specified arthritis, 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) Active confirmed 5780980 Problem Polyarthralgia (M25.50) Active confirmed 12404117 Problem Myalgia (M79.1) Active confirmed 828386 01 Problem Other termite exterminator (current) drug therapy (Z79.899) Active confirmed 271505473 Problem Dizziness (R42) Active confirmed 990412 003 Problem Essential (primary) hypertension (I10) Active confirmed PLAN OF TREATMENT Pending Test Test Name Order Date X ray : Spines, lumbar- outside order X ray : Hand, left 03/21/2015 X ray : Hand, right 03/21/2015 AST (SGOT) 06/21/2019 AST (SGOT) 09/27/2019 Creatinine, Serum 06/21/2019 Creatinine, Serum 09/27/2019 ALT (SGPT) 06/21/2019 ALT (SGPT) 09/27/2019 CBC With Differential/Platelet 0 CBC With Differential/Platelet 0 Sed Rate - Westergren 06/21/2019 Sed Rate - Westergren 09/27/2019 Creatinine (IH) 05/14/2015 X ray : SI joints- outside order 021 Lab slip given 06/21/2019 Lab slip given 09/27/2019 Lab slip given 05/15/2020 -Xray slip given 02/02/2021 Insurance Providers Payer Name Payer Address Payer Phone Subscriber Number Group Number Insured Name Patient Relationship to Insured Coverage Start Date Coverage End Date MEDICARE [address] [address] [place] [address] [id number] Cecilio Bergeron Self - patient is the insured 2 [employer] [facility] [id number] [place] [id number] Plan G Cecilio Bergeron Self - patient is the insured MEDICAL (GENERAL) HISTORY Medical History History ICD Code bruises easily difficulty swallowing hoarseness cataracts thyroid disease chest pain high blood pressure pneumonia swelling of ankles/feet angina hemorrhoids Lumps in testicles Kidney stones frequent urination gallstones weight loss ulcers indigestion anxiety depression Surgical History Surgery Date(Month/Year) shoulder arthroscopy 2015-July lung surgery 2016-August
--- OUTSIDE RECORDS SUMMARY | 2024-10-14 15:15 | XMS_ITS | Encounter Summary ---
Author Organization [facility] Facility Care Team Providers Care Resident Associate Name Role Phone Elodia Shoemaker NP Primary Care Provider [phone] Kathya Huerta MD Primary Care Provider [phone] No, Physician Primary Care Provider [phone] Dimtiris Burrows Primary Care Provider + Encounter Details Date Type Department Care Team (Latest Contact Info) Description 07/01/2016 Orders Only [facility] CLINCONV Provider, MD Susan [address] [place] [address] Social History Tobacco Use Types Packs/Day Years Used Date Smoking Tobacco: Never Assessed Alcohol Use Standard Drinks/Week Comments No 0 (1 standard drink = 0.6 oz pur e alcohol) Sex and Gender Information Value Date Recorded Sex Assigned at Not on file Legal Sex Male 3:06 AM CALL CENTER OPERATIONS MANAGER Gender Identity Not on file Sexual Orientation Not on file documented as of this encounter Plan of Treatment Not on file documented as of this encounter Procedures Procedure Name Priority Date/Time Associated Diagnosis Comments SCAN - PATHOLOGY 07/01/2016 12:0 0 AM CALL CENTER OPERATIONS MANAGER documented in this encounter Results * SCAN - PATHOLOGY (07/01/2016 12:00 AM CALL CENTER OPERATIONS MANAGER) Narrative 07/01/2016 12:00 AM CALL CENTER OPERATIONS MANAGER Ordered by an unspecified provider. Historical Provider Final Res ult documented in this encounter Visit Diagnoses Not on filedocumented in this encounter Care Teams Resident Associate Relationship Specialty Start Date End Date Elodia Shoemaker NP PCP - General 07/07/16 01/04/23 Kathya Huerta MD [address] [address] PCP - General 05/11/13 07/06/16 No, Physician PCP - General 09/08/23 09/18/23 Dimitris Burrows PA [facility] [place] [address] PCP - General Internal Medicine 09/19/23 documented as of this encounter
--- OUTSIDE RECORDS SUMMARY | 2024-10-14 15:15 | XMS_ITS | Continuity of Care Document ---
Author Organization [facility] Address [address] [facility] [address] [place] [address] Phone Care Team Providers Care Structural Steel Ironworker Name Role Phone Ablerto GONZALEZ, OTR/L, CHT, Arsalan Unavailable Verna vailable Procedures Procedure Date Carrying, Moving And Handling Objects-Cu rrent Carrying, Moving And Handling Objects-Go al Carrying, Moving And Handling Objects-Di scharge Wrist & Thumb Forearm based opponens Dec Advance Directives Directive Yes / No Effective Date File Name No Information Encounters Encounter Description Practice Location Reason(s) For Visit Diagnoses Date Provider Providers Copied on Encounter [facility], [address], [place], [place], [address], tel:[phone] [place] Brett primary osteoarth of first carpometacarp joint, l handPain in left wristEffusion, left wristStiffness of left hand, not elsewhere classifiedOther lack of coordinationMusc le weakness (generalized)Pre sence of unspecified orthopedic joint implant [address]. [address] [facility], [address], [place], [address], [place]. tel:[phone] Referring Provider: Vick Ott, [address], [place], [address]. tel:[phone] Family History Family Member Type Diagnosis Age At Onset No Information Payers Payer name Insurance type Covered constitution party ID Authoriza tion(s) Medicare [place] [id number] [facility] [id number] Social History Type Description Quantity Date Captured [...]
[2024-10-14 15:20] VITALS: BP 101/75; PULSE 63; RESP 18; TEMP 36.7; O2SAT 100
[2024-10-14 16:05] VITALS: BP 101/71; PULSE 65; RESP 18; O2SAT 100
== END 2024-10-14 18:23 ==
PROVIDERS: Emergency Provider Registered Nurse
DX: Z43.1 Encounter for attention to gastrostomy (principal); I10 Essential (primary) hypertension; I25.10 Atherosclerotic heart disease of native coronary artery without angina pectoris; J44.9 Chronic obstructive pulmonary disease, unspecified; G62.9 Polyneuropathy, unspecified; E78.00 Pure hypercholesterolemia, unspecified; K21.9 Gastro-esophageal reflux disease without esophagitis; Z85.118 Personal history of other malignant neoplasm of bronchus and lung; Z85.828 Personal history of other malignant neoplasm of skin; Z85.850 Personal history of malignant neoplasm of thyroid; Z86.0101 Personal history of adenomatous and serrated colon polyps; Z90.2 Acquired absence of lung [part of]; Z90.49 Acquired absence of other specified parts of digestive tract; Z96.1 Presence of intraocular lens; Z98.49 Cataract extraction status, unspecified eye; F17.210 Nicotine dependence, cigarettes, uncomplicated; Z79.82 Long term (current) use of aspirin; Z79.899 Other long term (current) drug therapy
CPT/HCPCS: 43762; 71045; 99283

== ENCOUNTER 2024-10-15 04:30 | Emergency (ER) | payer OTHER, SELFPAY ==
--- NOTE | ~2024-10-15 | XR_ITS ---
Supine and upright views of the abdomen Clinical history: G-tube replacement Findings: G tube is in satisfactory location, with contrast administered via the G-tube demonstrating opacification of the gastric lumen and duodenum. Bowel gas pattern is nonspecific. No evidence for o bstruction or free air. No abnormal mass lesion or calcification is seen. Osseous structures are inta ct. Impression: Percutaneous gastrostomy tube is appropriately located. No abnormal contrast extravasation. Reviewed, dictated and finalized at location . Impression: Percutaneous gastrostomy tube is appropriately located. No abnormal contrast ex travasation.
[2024-10-15 04:37] VITALS: BP 117/78; PULSE 81; RESP 20; TEMP 36.6; O2SAT 88
[2024-10-15 04:40] VITALS: O2SAT 95
--- NOTE | 2024-10-15 05:19 | ED_ITS ---
HPI - General Adult General Chief complaint: Unspecified Stated complaint: pulled out g tube History of Present Illness HPI narrative: Patient presents here after his G-tube came out. He is not sure how it happened. This had already happened earlier in the day and had been replaced about 12 hours ago. He thinks that it came out again about 5 hours prior to presentation here Related Data Home Medications ?Medication ?Instructions ?Recorded ?Confirmed ?Last Taken ?Type nitroglycerin 400 mcg/spray 1 spray translingual Q5M PRN Chest 07/21/20 03/25/24 Unknown History translingual Pain albuterol sulfate 2 puff inhalation Q4H PRN 03/08/24 03/25/24 Unknown History Shortness Of Breath fluticasone fur. 100 mcg-umeclid 1 inh inhalation DAILY 03/08/24 03/25/24 Unknown History 62.5 mcg-vilant 25 mcg inhalat.powder (Trelegy Ellipta) ipratropium-albuterol 1 vial inhalation TID 03/08/24 03/25/24 Unknown History bisacodyl 10 mg rectal suppository 10 mg RECTAL DAILY PRN Constipation 03/25/24 03/25/24 Unknown History naloxone 4 mg/actuation nasal spray 4 mg intranasal Q2M 03/25/24 03/25/24 Unknown History sodium phosphates 19 gram-7 118 ml RECTAL ONCE 03/25/24 03/25/24 Unknown History gram/118 mL enema (Fleet Enema) Allergies Allergy/AdvReac Type Severity Reaction Status Date / Time atorvastatin AdvReac Mild MADE ME Verified 07/09/24 16:37 SICK methocarbamol AdvReac Mild MADE ME Verified 07/09/24 16:37 SICK terbinafine AdvReac Mild MADE ME Verified 07/09/24 16:37 SICK Review of Systems Review of Systems: All systems reviewed & are unremarkable except as noted in HPI and below PMFSH Past Medical History Medical History Chronic obstructive pulmonary disease Gastroesophageal reflux disease Thyroid cancer Adenomatous colon polyp Hyponatremia Rhabdomyolysis Lymphocytic esophagitis Nonerosive esophageal reflux disease [place] Coronary artery disease Peripheral neuropathy Basal cell carcinoma Hypothyroidism Lung cancer status post right upper lobe pneumonectomy Hypertension High cholesterol Surgical History Surgical History History of esophageal dilatation History of cholecystectomy History of cataract extraction with lens replacement (2015) History of four vessel coronary artery bypass graft (09/2002) History of bilateral inguinal hernia repair History of open reduction and internal fixation (ORIF) procedure (06/2022) repair right proximal humerus fracture History of coronary angioplasty History of ventral hernia repair (06/2006) gastric volvulus with ventral hernia repair History of medial meniscus repair of right knee (2005) History of hemorrhoidectomy History of bilateral carpal tunnel release History of pneumonectomy (2014) right upper lobe due to lung cancer History of colonoscopy History of esophagogastroduodenoscopy (EGD) (2006) Family History Family History Mother MVA (motor vehicle accident) Father Gunshot wound Sibling Heart disease Other Family history of cardiovascular disease Social History Social History Social History: Surrogate medical decision maker: Linwood Bergeron ([phone]), brother. Code status: Full code. Smoking packs per day: 1 Smoking cigarettes per day: 20.0 Years smoked: 50 Smoking pack-years: 50.00 Smoking status: Current every day smoker Second hand tobacco smoke exposure: Yes Additional smoking assessment comments: has cut down to 4-6 cigarettes a day Alcohol intake: former Alcohol use details: no alcohol since August 31, 1984 Substance use: never Do You Feel Safe in your Home?: Yes Lack of Transportation: No Lack of Food: Never True Current Housing: I Have Housing Concerned About Future Housing: No Difficulty Paying Gas/Electric Bills: No Difficulty Paying for Meds: No Currently Unemployed: No Education: Decline to Answer Difficulty w/ Childcare or Family Care: No Additional living arrangements comments: Lives alone. with [address] [facility]. 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 Spiritual care concerns: No Exam Narrative: EXAMINATION OF ORGAN SYSTEMS/BODY AREAS: Constitutional: Vital signs per nursing GENERAL:[No acute distress, non-toxic appearing.] HEAD: Normal with no signs of head trauma. EYES: EOMI, conjunctiva normal ENT: Hearing grossly intact LUNGS: Some crackles all lung nye HEART: [Regular rate and rhythm] ABD: [Soft], [nontender to palpation], some friable granulation tissue around stoma site EXT: Normal range of motion SKIN: [No rashes or lesions.] NEURO: [Alert. No gross focal sensory or strength deficits.] PSYCH: Normal affect Course Vital Signs Vital signs: Vital Signs Temperature 97.8 F 10/15/24 04:37 Pulse Rate 81 10/15/24 04:37 Respiratory Rate 20 10/15/24 04:37 Blood Pressure 117/78 10/15/24 04:37 Pulse Oximetry 88 L 10/15/24 04:37 Oxygen Delivery Room Air 10/15/24 04:37 Temperature 97.8 F 10/15/24 04:37 Pulse Rate 81 10/15/24 04:37 Respiratory Rate 20 10/15/24 04:37 Blood Pressure 117/78 10/15/24 04:37 Pulse Oximetry 95 10/15/24 04:40 Oxygen Delivery Nasal Cannula 10/15/24 04:40 Oxygen Flow Rate 2 10/15/24 04:40 Procedures Feeding Tube Replacement Feeding Tube #1: Feeding Tube Placement Date: 10/15/24 Feeding Tube Placement Time: 05:28 Type of Tube: gastrostomy Insertion Site Prior to Procedure: clean Tube Used for Reinsertion: other Tamazight Tube Size (F): 16 Balloon size (mL): 5 Verification of Placement: KUB and gastrografin injection Tube Secured by: tape/dressing and other (abd binder) Patient Tolerated Procedure: well and no complications Medical Decision Making MDM Narrative Medical decision making narrative: Patient presents after his G2 came out, already had it replaced yesterday for the same thing. Sixteen Tamazight G-tube replaced by myself thankfully without significant difficulty; balloon filled with sterile water. I did test balloon beforehand to ensure that I was intact. X-ray does confirm G tube placement though slightly complicated by one done just 12 hours ago. Stable for discharge at this time with return precautions. He is on his baseline 2-3 L of oxygen. Denying any other complaints. G tube taped in place and dressing applied and I will try placing abdominal binder to help prevent it falling out within 12 hours again. Vital Signs Vital Signs: Vital Signs Temperature 97.8 F 10/15/24 04:37 Pulse Rate 81 10/15/24 04:37 Respiratory Rate 20 10/15/24 04:37 Blood Pressure 117/78 10/15/24 04:37 Pulse Oximetry 88 L 10/15/24 04:37 Oxygen Delivery Room Air 10/15/24 04:37 Temperature 97.8 F 10/15/24 04:37 Pulse Rate 81 10/15/24 04:37 Respiratory Rate 20 10/15/24 04:37 Blood Pressure 117/78 10/15/24 04:37 Pulse Oximetry 95 10/15/24 04:40 Oxygen Delivery Nasal Cannula 10/15/24 04:40 Oxygen Flow Rate 2 10/15/24 04:40 Discharge Plan Discharge Clinical Impression: Complaint associated with gastric tube Patient Disposition: NH Retirement/Asst Living Condition: Stable Instructions: How to Use and Care for Your PEG Tube (DC) Additional Instructions: Please follow up with your doctor; you can always return for any further issues. Patient Language: Upper Sorbian Prescriptions: No Action nitroglycerin 400 mcg/spray spray,non-aerosol 1 spray translingual Q5M PRN (Reason: Chest Pain) Rx Instructions: do not exceed 3 doses per episode Trelegy Ellipta 100-62.5-25 mcg blister with device 1 inh INHALATION DAILY albuterol sulfate 2 puff inhalation Q4H PRN (Reason: Shortness Of Breath) ipratropium-albuterol 1 vial inhalation TID bisacodyl 10 mg Suppository 10 mg RECTAL DAILY PRN (Reason: Constipation) Rx Instructions: give if milk of magnesia doesn't work Fleet Enema 19-7 gram/118 mL Enema 118 ml RECTAL ONCE Rx Instructions: give if no results 1 day after suppository naloxone 4 mg/actuation [place],Non-Aerosol 4 mg INTRANASAL Q2M Rx Instructions: spray 1 dose into ONE nostril; alternate nostrils w each dose until help arrives acetaminophen [Nortemp] 160 mg/5 mL Suspension 650 mg feeding tube Q6H PRN (Reason: Pain Rated 1-3) Qty: 120 0RF polyethylene glycol 3350 [Miralax] 17 gram Powder In Packet 17 g feeding tube QAM PRN (Reason: Constipation) Qty: 30 0RF hydrocodone-acetaminophen 5-325 mg Tablet 1 tablet feeding tube Q6H PRN (Reason: Pain rated 4-10) Qty: 10 0RF levothyroxine 25 mcg Tablet 37.5 mcg feeding tube DAILY@0630 Qty: 45 0RF amoxicillin-pot clavulanate 875-125 mg tablet 1 tablet feeding tube Q12H Qty: 5 0RF polysaccharide iron complex 150 mg iron Capsule 150 mg feeding tube BID Qty: 60 0RF magnesium hydroxide [Milk of Magnesia] 400 mg/5 mL Suspension 400 mg feeding tube DAILY PRN (Reason: Constipation) Qty: 355 0RF Rx Instructions: give if no BM in 3 days baclofen 10 mg tablet 5 mg feeding tube TID PRN (Reason: muscle spasms) Qty: 30 0RF simvastatin 20 mg tablet 20 mg feeding tube DAILY Qty: 30 0RF levothyroxine [Synthroid] 150 mcg Tablet 150 mcg feeding tube DAILY@0630 Qty: 30 0RF magnesium citrate [Citroma] Solution 300 ml feeding tube DAILY PRN (Reason: Constipation) Qty: 296 0RF Rx Instructions: give if no results from enema aspirin 81 mg Tablet,Chewable 81 mg feeding tube DAILY Qty: 30 0RF escitalopram oxalate 20 mg Tablet 20 mg feeding tube QHS Qty: 30 0RF Saccharomyces boulardii 250 mg Capsule 250 mg feeding tube BID Qty: 30 0RF Rx Instructions: stop 12/3/24 Mucinex 600 mg G-tube BID Qty: 60 0RF Rx Instructions: Ends 12/2/24 benzonatate 100 mg G-tube Q8H PRN (Reason: Cough) Qty: 20 0RF omeprazole 40 mg G-tube BID Qty: 60 0RF sodium chloride 500 mg G-tube BID Qty: 60 0RF alprazolam 1 mg tablet 1 mg feeding tube TID PRN (Reason: anxiety) Qty: 10 0RF Follow-up/Referrals: PHYSICIAN NOT ON STAFF,NONSTAFF [Primary Care Provider] -
--- NOTE | 2024-10-15 05:57 | PC.NURSE ---
edp dr. cesar at bedside to replace patient G tube with a 16F. this rn used gauze to the area under the g tube for comfort to the area.
[2024-10-15 06:12] VITALS: BP 147/72
--- OUTSIDE RECORDS SUMMARY | 2024-10-15 06:15 | XMS_ITS | Clinical Summary ---
Author Organization [facility] Address [address] [place] [address] Phone Care Team Providers Care Director Of Laboratory Operations Name Role Phone Elodia Shoemaker Primary Care Provider [phone] Allergies Active Allergy Reactions Criticality Noted Date [...] tablet Take 125 mcg by mouth daily driller portable. 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 Gender Identity Not on file Sexual Orientation Not on file Last Filed Vital Signs Vital Sign Reading Time Taken Comments Blood Pressure 130/70 01/08/2019 1:00 PM CDT Pulse 85 01/08/2019 1:00 PM CDT Temperature - - Respiratory Rate - - Oxygen Saturation 94% 05/11/2017 11:23 AM TRANSPORTATION MUSEUM HELPER Inhaled Oxygen Concentration - - Weight 71.8 [...] 12/14/2025 Insurance MEDICARE PART A AND B [facility] RX [employer] RX Member Subscriber Plan / Payer (Ef fective for All Dates) Name:Cecilio Bergeron Relation to Subscriber:Self Name:Cecilio Bergeron Payer ID:Not on file Group ID:[id number] Type:RX Medicare Part D Address: [place], [place] RX [employer] Express MEDICARE PART A AND B [facility] [place] [address] Care Teams Director Of Laboratory Operations Relationship Specialty Start Date End Date Elodia Shoemaker ANP [address] [address] PCP - General NURSE PRACTITIONER 01/28/17
--- OUTSIDE RECORDS SUMMARY | 2024-10-15 06:15 | XMS_ITS | Encounter Summary ---
Author Organization [facility] Address [address] [place] [address] Care Team Providers Care B2B Sales Consultant Name Role Phone Kathya Huerta MD Primary Care Provider [phone] Elodia Shoemaker NP Primary Care Provider [phone] Encounter Details Date Type Department Care Team (Late st Contact Info) Description 11/05/2019 Prep for Procedure [facility] [place], [place] [id number] Ravinder Swan MD [address] [facility] [address] [place] [phone] Social History Tobacco Use Types Packs/Day Years [...] AM CDT documented as of this encounter Functional Status documented as of this encounter Plan of Treatment Not on file documented as of this encounter Results * PRE-SURGICAL/PRE-PROCEDURE CORONAVIRUS (COVID 19) (11/05/2019 1:50 PM CDT) CORONAVIRUS SARS COV 2 PCR (RESP) NOT DETECTED NOT DETECTED 11/06/2019 8:43 PM CDT [facility] Comment: A Not Detected (negative) test [...] providers and patients using the following websites: https://www.[employer].Masala/home/Covid-19/HCP/NAAT/fact-sheet2 https://www.[employer].Masala/home/Covid-19/Patients/NAAT/ fact-sheet2 This test has been authorized by the FDA under an Emergency Use Authorization (EUA) for use by authorized laboratories. Due to the current public health emergency, [facility] is receiving a high volume of samples [...] about COVID-19 can be found at the [facility] website: www.[employer].Masala/Covid19. Test performed at [facility] [address] [place] [address] Director: YESI FELICIANO DO,MPH NASOPHARYNGEAL SWAB / Unknown 11/05/2019 1:50 PM CDT Ravinder Swan MD MICROBIOLOGY - GENERAL ARTEMIO LONG Final Result [facility] [address] [place] [address], documented in this encounter Visit Diagnoses Diagnosis Dysphagia- Primary Dysphagia, unspecified documented in this encounter Additional Health Concerns Infection Onset Date Last Indicated Resolved Time COVID-19 Rule Out 11/05/2019 11/05/2019 11/06/2019 8:43 PM CDT documented as of this encounter Care Teams B2B Sales Consultant Relationship Specialty Start Date End Date Kathya Huerta MD [address], [place] [address] PCP - General 09/28/13 11/07/19 Elodia Shoemaker NP [address] [place] [address] PCP - General NURSE PRACTITIONER 11/08/19 documented as of this encounter
--- OUTSIDE RECORDS SUMMARY | 2024-10-15 06:15 | XMS_ITS | Clinical Summary ---
Author Organization [facility] Care Team Providers Care Final Coat Sprayer Name Role Phone Unavailable Primary Care Provider [...]
--- OUTSIDE RECORDS SUMMARY | 2024-10-15 06:15 | XMS_ITS | Continuity of Care Document ---
Author Organization [facility] Address [address] [place] [address] Phone Care Team Providers Care Wigs Salesperson Name Role Phone Alberto GONZALEZ, OTR/L, CHT, [...] Diagnoses Date Provider Providers Copied on Encounter [facility], [address], [place], [place], [id number], tel:[phone] Skipwith Brett primary osteoarth of first carpometacarp joint, l handPain in left wristEffusion, left wristStiffness of left hand, not elsewhere classifiedOther lack of coordinationMusc le weakness (generalized)Pre sence of unspecified orthopedic joint implant [address]. [address] [facility], [address], [place], [address], [place]. tel:[phone] Referring Provider: Vick Ott, [address], [place], [address]. tel:[phone] Family History Family Member Type Diagnosis Age At Onset No Information Payers Payer name Insurance type Covered republican ID Authoriza tion(s) Medicare [place] MB [id number] [facility] [id number] Social History Type Description Quantity Date Captured [...]
--- OUTSIDE RECORDS SUMMARY | 2024-10-15 06:16 | XMS_ITS ---
Author Organization [facility] Address [address] [place], [place] [address] Care Team Providers Care News Broadcaster Name Role Phone Ramon Adam Unavailable Unavailable NATACHA MISTRY Unavailable [phone] REASON FOR VISIT in hospital Encounters Encounter Location Date Provider Diagnosis [facility] [address] [facility] [address] [place], [place] [id number] 03/20/2024 NATACHA MISTRY Plan Of Treatment No Information Progress Notes * DENNIS BERGERONOB:1950 (73 yo M)Acc No.[id number]:03/20/2024 Patient: ALEXIA JASON Provider: Jamie Mistry DPM :1950 A ge:73 Y S ex:Male Date:03/20/2024 Address:[address] [place], [place] [id number] Subjective: * Chief Complaints: * 1 . In hospital. * Medical History: Objective: * Vitals: Assessment: Plan: * Treatment: * Billing Information: * Visit Code: * Procedure Codes: * Electronic signature of NATACHA MISTRY DPM on 10/15/2024 at 06:16 AM CDT Sign off status: Pending * Provider: Jamie Mistry DPM Date: 05/20/2023 Generated for Printi ng/Faxing/eTransmitting on: 0 10/15/2024 06:16 AM CDT
--- OUTSIDE RECORDS SUMMARY | 2024-10-15 06:16 | XMS_ITS | Patient Health Record ---
Author Organization [facility] Address 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) Active confirmed 2466108 Problem Polyarthralgia (M25.50) Active confirmed 85663653 Problem Myalgia (M79.1) Active confirmed 360407 01 Problem 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
--- OUTSIDE RECORDS SUMMARY | 2024-10-15 06:16 | XMS_ITS ---
Author Name Auto Generated, Auto Generated Organization [facility] Address [address] [place] [address] Phone [phone] Care Team Providers Care Steam Room Attendant Name Role Phone Shikha Gan Unavailable Edita [...] Primary Diagnosis Admission Date/Time Dis charge Date/Time [facility] TueFeb 21 14:00:00 EDT [...] sacrum Topical 1 Time Daily Indication: Wound [facility] Mar 01 07:32:00 EDT 2023Mar 07 01:00:00 EST 2023 TubersoL 5 tub. unit/0.1 mL intradermal injection solution Read Results VIAL (ML) Other 1 Time Weekly for 2 Weeks Indication: . Read results between 48-72 hours after 1st and 2nd (1 week apart). If positive do chest x-ray. [facility] Mar 01 07:39:00 2023Mar 07:00:00 EST 2023 TubersoL 5 tub. unit/0.1 mL intradermal injection solution 0.1 ml VIAL (ML) Intradermal 1 Time Weekly for 2 Weeks Indication: . 1st injection on admission, then one week after. Read between 48 and 72 hours [facility] Mar 01 07:40:00 EDT 2023Mar 07:00:00 EST 2023 Niferex (Sumalate-Quatrefolic) 150 mg iron-60 mg-1 mg tablet 1 cap TABLET Oral 2 Times Daily Indication: Supplment [facility] Mar 01 13:04:00 ED2023Mar 07 01:00:00 EST [...] baclofen 10 mg tablet 5MG TABLET Oral HI N 3 Times Daily Indication: MUSCLE SPASMS [...] 2022 * End Date: * Text: * pharmacist hospital (current) use of aspirin* Code: * Start [...] * Text: * Atherosclerotic heart disease of [place] coronary artery without angina pectoris* Code: * [...] will be followed (Advanced Directive/Code Status). * M9263P Cecilio receives a therapeutic & mechanically altered diet. (12)* Code: * Start Date: TueMar 01 00:00:00 EDT 2023 * End Date: * Text: H5577A Cecilio receives a therapeutic & mechanically altered [...] EDT 2024 Systolic Blood Pressure 100.00 mm[Hg] [facility] Oct 29 10:41:43 EDT 4 Diastolic Blood Pressure 51.00 mm[Hg] [facility] Oct 29 10:41:43 EDT 2023 Pulse Oximetry 91.00 % [facility] 29 10:41 :43 EDT 4 Heart Rate 64.00 /min [facility] 29 10:41 :43 EDT 4 Body temperature 98.20 [degF] [facility] 29 10:4 1:43 EDT 2023 Respiratory rate 20.00 /min [facility] 29 10:4 1:43 EDT 2023 Pulse Oximetry 91.00 % [facility] 29 10:33 :42 EDT 4 Systolic Blood Pressure 101.00 mm[Hg] [facility] 28 23:56:10 EDT 2023 Diastolic Blood Pressure 59.00 mm[Hg] [facility] 28 23:56:10 EDT 2023 Pulse Oximetry 92.00 % [facility] 28 23:56 :10 EDT 2023 Pulse Oximetry 92.00 % [facility] 28 23:56 :10 EDT 2023 Heart Rate 68.00 /min [facility] 28 23:56 :10 EDT 2023 Body temperature 98.30 [degF] [facility] 28 23:5 6:10 EDT 4 Respiratory rate 18.00 /min [facility] 28 23:5 6:10 EDT 4 Systolic Blood Pressure 118.00 mm[Hg] [facility] 28 09:43:13 EDT 4 Diastolic Blood Pressure 71.00 mm[Hg] [facility] 28 09:43:13 EDT 4 Pulse Oximetry 99.00 % Tue [facility] 28 09:43 :13 EDT 2023 Pulse Oximetry 99.00 % [facility] 28 09:43 :13 EDT 4 Heart Rate 59.00 /min [facility] 28 09:43 :13 EDT 4 Body temperature 98.00 [degF] [facility] 28 09:4 3:13 EDT 4 Respiratory rate 20.00 /min [facility] 28 09:4 3:13 EDT 4 Systolic Blood Pressure 143.00 mm[Hg] [facility] 28 06:06:00 EDT 4 Diastolic Blood Pressure 78.00 mm[Hg] [facility] 28 06:06:00 EDT 2023 Pulse Oximetry 97.00 % [facility] 28 06:06 :00 EDT 2024 Heart Rate 68.00 /min Mon Oct 28 06:06 :00 EDT 2023 Body temperature 96.80 [degF] [facility] 06:0 6:00 EDT 2023 Respiratory rate 20.00 /min [facility] 06:0 6:00 EDT 2023 Systolic Blood Pressure 137.00 mm[Hg] [place] Oct 27 22:12:45 EDT 2023 Diastolic Blood Pressure 69.00 mm[Hg] [facility] 27 22:12:45 EDT 2023 Pulse Oximetry 97.00 % [facility] 27 22:12 :45 EDT 2023 Pulse Oximetry 97.00 % [facility] 27 22:12 :45 EDT 4 Heart Rate 58.00 /min [facility] 27 22:12 :45 EDT 2023 Body temperature 98.20 [degF] [facility] 27 22:1 2:45 EDT 2023 Respiratory rate 18.00 /min [facility] 27 22:1 2:45 EDT 4 Body weight 139.60 [lb_av] [facility] 27 09:03 :51 EDT 2023 Systolic Blood Pressure 133.00 mm[Hg] [facility] 27 09:03:41 EDT 2023 Diastolic Blood Pressure 67.00 mm[Hg] [facility] 27 09:03:41 EDT 2023 Pulse Oximetry 94.00 % [facility] 27 09:03 :41 EDT 2023 Pulse Oximetry 94.00 % [facility] 27 09:03 :41 EDT 2023 Heart Rate 56.00 /min [facility] 27 09:03 :41 EDT 2023 Body temperature 97.80 [degF] [facility] 27 09:0 3:41 EDT 2023 Respiratory rate 20.00 /min [facility] 27 09:0 3:41 EDT 2023 Systolic Blood Pressure 116.00 mm[Hg] [facility] Oct 26 23:00:36 EDT 2023 Diastolic Blood Pressure 60.00 mm[Hg] [facility] Oct 26 23:00:36 EDT 2023 Pulse Oximetry 95.00 % [facility] Oct 26 23:00 :36 EDT 2023 Pulse Oximetry 95.00 % [facility] Oct 26 23:00 :36 EDT 2023 Heart Rate 58.00 /min [facility] Oct 26 23:00 :36 EDT 2023 Body temperature 98.20 [degF] [facility] Oct 26 23:0 0:36 EDT 4 Respiratory [...] 00:09:40 EDT 2023 Pulse Oximetry 98.00 % [facility] Oct 26 00:09 :40 EDT 2023 Pulse Oximetry 98.00 % [facility] Oct 26 00:09 :40 EDT 4 Heart Rate 54.00 /min Sat Oct 26 00:09 :40 EDT 2023 Body temperature 98.00 [degF] Sat Oct 26 00:0 9:40 EDT 2023 Respiratory rate 18.00 /min [facility] Oct 26 00:0 9:40 EDT 4 Body [...] EDT 2023 Systolic Blood Pressure 102.00 mm[Hg] [facility] Oct 24 23:55:04 EDT 2023 Diastolic Blood [...]
--- OUTSIDE RECORDS SUMMARY | 2024-10-15 06:16 | XMS_ITS | Referral Summary ---
Author Organization [facility] Address [address] [place] [address] Care Team Providers Care Crnp Name Role Phone Dimitris Burrows Primary Care [...] (VITAMIN D-3) 2000 unit capsule Takes D3 33362 Units once a week Active nitroglycerin (nitroglycerin) [...] (10/11/2019): Added automatically from request for surgery [id number] Acoustic neuroma 10/27/2018 Bilateral cataracts 10/27/2018 Bone [...] radiation and chemotherapy. Patient was referred to [facility], he saw Dr. Martinez and [...] carcinoma in situ. 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 Gender Identity Not on file Sexual Orientation [...] Recently Relevant to Health Maintenance Insurance MEDICARE [employer] Address: [address] [address] [place] [address] [place] [address] MEDICARE [place]ICARE [place] MEDICARE [employer] [facility] Advance Directives For more information, please contact: [phone] * Full Code (Latest Code Status on File) Date Activated Date Inactivated Comments 10/26/2019 8:41 AM 01/13/2020 12:53 PM Care Teams Crnp Relationship Specialty Start Date End Date Dimitris Burrows PA [facility] [place] [address] PCP - General Internal Medicine 09/19/23
--- OUTSIDE RECORDS SUMMARY | 2024-10-15 06:16 | XMS_ITS | Clinical Summary ---
Author Organization [facility] [employer] Address [address] [place] [address] Care Team Providers Care Loom Cleaner Name Role Phone Elodia Shoemaker TYESHA-CATERING TRUCK OPERATOR Primary Care Provider + Source Comments [facility],non-owned Affiliates and Associated Physician Practices is amultiple site organization consisting of ambulatory clinics and hospital sitesin [place], [place], [place] and [place]. This disclosure is being madepursuant to the Care Everywhere program and may not contain all information available regarding this patient. 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 Gender Identity Not on file Sexual Orientation [...] complete this topic Insurance MEDICARE [employer] [place] [employer] [place] [address] SELF PAY NO INSURANCE Member Subscriber Plan / Payer (Ef fective for All Dates) Name:Alexia Bergeron Member ID:Not on file Relation to Subscriber:Not on file Name:ALEXIA BERGERON Subscriber ID:Not on file (Home) Address: [address] [place] [id number] Payer ID:Not on file Group ID:Not on file Type:Self Pay Address: [place], [place] MEDICARE MEDICARE Care Teams Loom Cleaner Relationship Specialty Start Date End Date Elodia Shoemaker APRN-CNP [address] [address] PCP - General 03/16/22
--- OUTSIDE RECORDS SUMMARY | 2024-10-15 06:16 | XMS_ITS | Encounter Summary ---
Author Organization [facility] Facility Care Team Providers Care Hydroponics Grower Name Role Phone Elodia Shoemaker NP Primary Care Provider [phone] No, Physician Primary Care Provider [phone] Dimitris Burrows Primary Care Provider + Encounter Details Date Type Department Care Team (Latest Contact Info) Description 07/07/2016 Orders Only [facility] CLINCONV ProviderSusan MD [address] [place] [address] Social History Tobacco Use Types Packs/Day Years Used Date Smoking Tobacco: Never Assessed Alcohol Use Standard Drinks/Week Comments No 0 (1 standard drink = 0.6 oz pur e alcohol) Sex and Gender Information Value Date Recorded Sex Assigned at Not on file Legal Sex Male 3:06 AM BUILDING PRINCIPAL Gender Identity Not on file Sexual Orientation Not on file documented as of this encounter Plan of Treatment Not on file documented as of this encounter Procedures Procedure Name Priority Date/Time Associated Diagnosis Comments SCAN - PATHOLOGY 07/07/2016 12:0 0 AM BUILDING PRINCIPAL documented in this encounter Results * SCAN - PATHOLOGY (07/07/2016 12:00 AM BUILDING PRINCIPAL) Narrative 07/07/2016 12:00 AM BUILDING PRINCIPAL Ordered by an unspecified provider. Historical Provider Final Res ult documented in this encounter Visit Diagnoses Not on filedocumented in this encounter Care Teams Hydroponics Grower Relationship Specialty Start Date End Date Elodia Shoemaker NP PCP - General 07/07/16 01/04/23 No, Physician PCP - General 09/08/23 09/18/23 Dimitris Burrows PA [facility] [place] [address] PCP - General Internal Medicine 09/19/23 documented as of this encounter
--- OUTSIDE RECORDS SUMMARY | 2024-10-15 06:16 | XMS_ITS | Clinical Summary ---
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 Patient was referred to [facility], he saw Dr. Martinez and Dr. Kumar, [...] carcinoma in situ. 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 MEDICARE [place] [place] MEDICARE [place] [facility] Advance Directives For more information, please contact: [phone] * Full Code (Latest Code Status on File) Date Activated Date Inactivated Comments 10/26/2019 8:41 AM 01/13/2020 12:53 PM Care Teams Pelletising Extruder Operator Relationship Specialty Start Date End Date Dimitris Burrows PA [facility] [place] [address] PCP - General Internal Medicine 09/19/23
--- OUTSIDE RECORDS SUMMARY | 2024-10-15 06:16 | XMS_ITS ---
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 Patient was referred to [facility], he saw Dr. Martinez and [...] carcinoma in situ. He was referred to [facility] and there was evaluated by [...]
--- OUTSIDE RECORDS SUMMARY | 2024-10-15 06:16 | XMS_ITS | Encounter Summary ---
Author Organization [facility] Address [address] [place] [address] Care Team Providers Care Covering Machine Tender Name Role Phone Elodia Shoemaker APRN-EMPLOYMENT LEGAL ASSISTANT Primary Care Provider + Encounter Details Date Type Department Care Team (Late st Contact Info) Description 06/08/2022 Lab Requisition [facility] Care DermPath Lab [address] [facility] [place] [address] Laron Prescott MD [address] [place] [address] Social History Tobacco Use Types Packs/Day Years Used Date Smoking Tobacco: Every Day Cigarettes Smokeless Tobacco: Never Alcohol Use Standard Drinks/Week Comments Not Currently 0 (1 standard drink = 0.6 oz pur e alcohol) Sex and Gender Information Value Date Recorded Sex Assigned at Not on file Legal Sex Male 6:19 AM DIAMOND DIE MAKER Gender Identity Not on file Sexual Orientation Not on file Occupation Industry Job Start Date Job End Date Retired Not on file Not on file Not on file documented as of this encounter Plan of Treatment Not on file documented as of this encounter Procedures Procedure Name Priority Date/Time Associated Diagnosis Comments DERMATOPATHOLOGY Routine 06/07/2022 3:33 AM DIAMOND DIE MAKER documented in this encounter Results * DERMATOPATHOLOGY (06/07/2022 3:33 AM DIAMOND DIE MAKER) Case Report Dermatopathology Report Case: [id number] Authorizing Provider: Laron Prescott MD Collected: 06/07/2022 03:33 AM Ordering Location: [facility] DermPath Lab Received: 06/08/2022 01:18 PM Pathologist: Tasia Malone MD Specimen: Skin, left helix 4:36 PM [facility] DERMATOPATHOLOGY LABORATORY Final Diagnosis Specimen A. 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 The specimen consists of a shave biopsy measuring 7x5x3, 3x3x2 mm. Jar 0. 4:36 PM [facility] DERMATOPATHOLOGY LABORATORY Microscopic Description Specimen A. SKIN, left helix: The epidermis shows parakeratosis, full thickness disorderly maturation of keratinocytes, mitoses at different levels, and dyskeratotic cells. There is a column of marked compact hyperkeratosis. Additional deeper sections were obtained and reviewed. 4:36 PM [facility] DERMATOPATHOLOGY LABORATORY Disclaimer An external and internal positive and negative controls are appropriate for the histochemical, immunohistochemical and immunofluorescence stain(s) in this case (if any), except where stated explicitly. The performance characteristics of the stain(s) cited in this report were developed and its performance characteristic determined by the Dermatopathology Laboratory at [facility], directed by Dr. Samy Gaspar. These tests need not be, and therefore are not, approved by the [place] Food and Drug Administration. The tests are used for clinical purposes. Billing Codes Specimen Charges Stain Charges 63702 1 3 4:36 PM [facility] DERMATOPATHOLOGY LABORATORY Embedded Images 4:36 PM [facility] DERMATOPATHOLOGY LABORATORY Pathology/Cytolo gy TISSUE SPECIMEN FROM SKIN / Unknown 06/07/2022 3:33 AM DIAMOND DIE MAKER 06/08/2022 1:18 PM DIAMOND DIE MAKER Laron Prescott MD LAB - PATHOLOGY/CYTOLOGY ORDERA BLES Final Result DERMATOPATHOLOGY LABORATORY [facility] - Department of Dermatology [facility] Specialized Medicine [address] [place] [address], [address] [phone] documented in this encounter Visit Diagnoses Not on filedocumented in this encounter Care Teams Covering Machine Tender Relationship Specialty Start Date End Date Elodia Shoemaker APRN-EMPLOYMENT LEGAL ASSISTANT [address] [address] PCP - General 03/16/22 documented as of this encounter
--- OUTSIDE RECORDS SUMMARY | 2024-10-15 06:16 | XMS_ITS | Encounter Summary ---
Author Organization [facility] Facility Care Team Providers Care Coat Fitter Name Role Phone Elodia Shoemaker NP Primary Care Provider [phone] Kathya Huerta MD Primary Care Provider [phone] No, Physician Primary Care Provider [phone] Dimitris Burrows Primary Care Provider + Encounter Details Date Type Department Care Team (Latest Contact Info) Description 07/01/2016 Orders Only [facility] CLINCONV Provider, MD Susan [address] [place] [address] Social History Tobacco Use Types Packs/Day Years Used Date Smoking Tobacco: Never Assessed Alcohol Use Standard Drinks/Week Comments No 0 (1 standard drink = 0.6 oz pur e alcohol) Sex and Gender Information Value Date Recorded Sex Assigned at Not on file Legal Sex Male 3:06 AM FLORIST MANAGER Gender Identity Not on file Sexual Orientation Not on file documented as of this encounter Plan of Treatment Not on file documented as of this encounter Procedures Procedure Name Priority Date/Time Associated Diagnosis Comments SCAN - PATHOLOGY 07/01/2016 12:0 0 AM FLORIST MANAGER documented in this encounter Results * SCAN - PATHOLOGY (07/01/2016 12:00 AM FLORIST MANAGER) Narrative 07/01/2016 12:00 AM FLORIST MANAGER Ordered by an unspecified provider. Historical Provider Final Res ult documented in this encounter Visit Diagnoses Not on filedocumented in this encounter Care Teams Coat Fitter Relationship Specialty Start Date End Date Elodia Shoemaker NP PCP - General 07/07/16 01/04/23 Kathya Huerta MD [address] [address] PCP - General 05/11/13 07/06/16 No, Physician PCP - General 09/08/23 09/18/23 Dimitris Brurows PA [facility] [address] PCP - General Internal Medicine 09/19/23 documented as of this encounter
--- OUTSIDE RECORDS SUMMARY | 2024-10-15 06:16 | XMS_ITS | Encounter Summary ---
Author Organization [facility] Address [address] [facility] [place] [address] Care Team Providers Care Bee Raiser Name Role Phone Elodia Shoemaker APRN-LINE FIXER Primary Care Provider + Encounter Details Date Type Department Care Team (Late st Contact Info) Description 03/16/2022 Lab Requisition [facility] Care DermPath Lab [address] [facility] [place] [address] Laron Prescott MD [address] [place] [address] Social History Tobacco Use Types Packs/Day Years Used Date Smoking Tobacco: Every Day Cigarettes Smokeless Tobacco: Never Alcohol Use Standard Drinks/Week Comments Not Currently 0 (1 standard drink = 0.6 oz pur e alcohol) Sex and Gender Information Value Date Recorded Sex Assigned at Not on file Legal Sex Male 6:19 AM PASSENGER RATE CLERK Gender Identity Not on file Sexual Orientation Not on file Occupation Industry Job Start Date Job End Date Retired Not on file Not on file Not on file documented as of this encounter Plan of Treatment Not on file documented as of this encounter Procedures Procedure Name Priority Date/Time Associated Diagnosis Comments DERMATOPATHOLOGY Routine 03/15/2022 12:0 0 AM PASSENGER RATE CLERK documented in this encounter Results * DERMATOPATHOLOGY (03/15/2022 12:00 AM PASSENGER RATE CLERK) Case Report Dermatopathology Report Case: [id number] Authorizing Provider: Laron Prescott MD Collected: 03/15/2022 12:00 AM Ordering Location: [facility] DermPath Lab Received: 03/16/2022 11:33 AM Pathologist: Tasia Malone MD Specimen: Skin, right taoist 12:56 PM [facility] DERMATOPATHOLOGY LABORATORY Final Diagnosis Specimen A. SKIN, right taoist: SQUAMOUS CELL CARCINOMA IN SITU, PRESENT AT THE BASE OF THE SPECIMEN (D04.39) (see microscopic description and comment) 12:56 PM [facility] DERMATOPATHOLOGY LABORATORY at [address] PASSENGER RATE CLERK Clinical History R/O BCC 12:56 PM [facility] DERMATOPATHOLOGY LABORATORY Gross Description Specimen A: Received is one formalin filled container labeled with the patient's name and designated right taoist. The specimen consists of a shave biopsy measuring 8c1x9xi. Jar 0. 12:56 PM [facility] DERMATOPATHOLOGY LABORATORY Microscopic Description Specimen A. SKIN, right taoist: The epidermis shows parakeratosis, full thickness disorderly maturation of keratinocytes, mitoses at different levels, and dyskeratotic cells. The lesion extends to the base of the biopsy. COMMENT: An invasive squamous cell carcinoma cannot be ruled out. 12:56 PM [facility] DERMATOPATHOLOGY LABORATORY Disclaimer An external and internal positive and negative controls are appropriate for the histochemical, immunohistochemical and immunofluorescence stain(s) in this case (if any), except where stated explicitly. The performance characteristics of the stain(s) cited in this report were developed and its performance characteristic determined by the Dermatopathology Laboratory at [facility], directed by Dr. Samy Gaspar. These tests need not be, and therefore are not, approved by the [place] Food and Drug Administration. The tests are used for clinical purposes. Billing Codes Specimen Charges Stain Charges 72045 1 12:56 PM [facility] DERMATOPATHOLOGY LABORATORY Embedded Images 12:56 PM [facility] DERMATOPATHOLOGY LABORATORY Pathology/Cytolog y TISSUE SPECIMEN FROM SKIN / Unknown 03/15/2022 03/16/2022 11:33 AM PASSENGER RATE CLERK Laron Prescott MD LAB - PATHOLOGY/CYTOLOGY ORDERA BLES Final Result DERMATOPATHOLOGY LABORATORY [facility] - Department of Dermatology [facility] Specialized Medicine [address] [place] [address], [address] [place] [address], [facility] [phone] documented in this encounter Visit Diagnoses Not on filedocumented in this encounter Care Teams Bee Raiser Relationship Specialty Start Date End Date Elodia Shoemaker APRN-COY [address] [address] PCP - General 03/16/22 documented as of this encounter
--- OUTSIDE RECORDS SUMMARY | 2024-10-15 06:17 | XMS_ITS | Patient Health Record ---
Author Organization [facility] Address [address] [place], [place] [address] Care Team Providers Care Notching Press Operator Name Role Phone Ramon Adam Unavailable Unavailable NATACHA MISTRY Unavailable [phone] Allergies No Known Allergies Reason For Referral [...] Location Date Provider Diagnosis [facility] [address] [place], [place] [address] 10/25/2023 NATACHA SNOOK Tinea unguium B35.1 ; Pain in right toe(s) M79.674 ; Pain in left toe(s) M79.675 ; Atherosclerosis of [place] arteries of extremities with intermittent claudication, bilateral legs I70.213 and Acquired keratosis [keratoderma] palmaris et plantaris L85.1 [facility] [address] [place], [place] [address] 12/27/2023 NATACHA SNOOK Tinea unguium B35.1 ; Pain in right foot M79.671 ; Pain in left foot M79.672 ; Atherosclerosis of [place] arteries of extremities with intermittent claudication, bilateral [...] toe(s) (ICD-10 - M79.675) 10/25/2023 Atherosclerosis of [place] arteries of extremities with intermittent claudication, bilateral legs (ICD-10 - I70.213) 12/27/2023 Atherosclerosis of [place] arteries of extremities with intermittent claudication, bilateral [...] Date Coverage End Date Medicare Part B [place] [address] MATTIE ACKERMAN [phone] [id number] ALEXIA VIDAL Self - patient is the insured [facility] [address] [place] [address] [id number] ALEXIA VIDAL Self - patient is the insured Medical (General) History Medical History History ICD Code acid reflux Cancer (type of cancer) GERD Leg/Feet cramps Respiratory disease Skin Disorder Arthritis skin cancer Heart Disease Back Trouble Radiation therapy hypertension Lung Disease Surgical History Surgery Date(Month/Year) shoulder surgery 06/2022 heart bypass 2002 knee replacement 2005
--- OUTSIDE RECORDS SUMMARY | 2024-10-15 06:17 | XMS_ITS | Encounter Summary ---
Author Organization [facility] Facility Care Team Providers Care Diamond Cutter Name Role Phone Elodia Shoemaker NP Primary Care Provider [phone] No, Physician Primary Care Provider Dimitris Burrows Primary Care Provider + Encounter Details Date Type Department Care Team (Latest Contact Info) Description 08/26/2016 Orders Only [facility] CLINCONV ProviderSusan MD [address] [place] [address] Social History Tobacco Use Types Packs/Day Years Used Date Smoking Tobacco: Never Assessed Alcohol Use Standard Drinks/Week Comments No 0 (1 standard drink = 0.6 oz pur e alcohol) Sex and Gender Information Value Date Recorded Sex Assigned at Not on file Legal 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
--- OUTSIDE RECORDS SUMMARY | 2024-10-15 06:17 | XMS_ITS ---
Author Name Auto Generated, Auto Generated Organization [facility] ices Address [address] [place] [address] Phone [phone] Care Team Providers Care Winderman Name Role Phone Shikha Gan Unavailable Edita Boo Unavailable Functional Status Mental Status Allergies and Intolerances Encounters Immunizations Medications Problems Vital Signs Reason for Referral Past Medical History
[2024-10-15 07:40] VITALS: BP 127/72; PULSE 73; RESP 18; O2SAT 97
[2024-10-15 08:30] VITALS: BP 116/76; PULSE 72; RESP 18; TEMP 36.6; O2SAT 97
== END 2024-10-15 08:35 ==
LOC: ANHED 06:13
PROVIDERS: Emergency Provider Emergency Medicine
DX: Z43.1 Encounter for attention to gastrostomy (principal); I10 Essential (primary) hypertension; I25.10 Atherosclerotic heart disease of native coronary artery without angina pectoris; J44.9 Chronic obstructive pulmonary disease, unspecified; E89.0 Postprocedural hypothyroidism; E78.00 Pure hypercholesterolemia, unspecified; K21.9 Gastro-esophageal reflux disease without esophagitis; G62.9 Polyneuropathy, unspecified; F17.210 Nicotine dependence, cigarettes, uncomplicated; Z95.1 Presence of aortocoronary bypass graft; Z85.828 Personal history of other malignant neoplasm of skin; Z86.0101 Personal history of adenomatous and serrated colon polyps; Z85.850 Personal history of malignant neoplasm of thyroid; Z85.118 Personal history of other malignant neoplasm of bronchus and lung; Z90.2 Acquired absence of lung [part of]; Z90.49 Acquired absence of other specified parts of digestive tract; Z96.1 Presence of intraocular lens; Z98.49 Cataract extraction status, unspecified eye; Z79.899 Other long term (current) drug therapy; Z79.82 Long term (current) use of aspirin
CPT/HCPCS: 43762; 99283

== ENCOUNTER 2024-10-28 18:51 | Emergency (ER) | payer OTHER, SELFPAY ==
[2024-10-28] VITALS (14 sets, daily range): BP systolic 104–129; BP diastolic 58–81; PULSE 71–90; RESP 12–22; TEMP 37.4; O2SAT 93–98
--- NOTE | ~2024-10-28 | XR_ITS ---
EXAM: XR abdomen gastric tube insert DATE: 10/28/2024 19:27 HISTORY: g tube replaced . COMPARISON: 10/14/2024. FINDINGS: Intact sternotomy wires. Surgical clips over the mid abdomen and right upper quadrant. G-t ube over the upper abdomen. Following the instillation of 50 cc Gastrografin through the G-tube, cont rast fills the stomach and proximal duodenum. No definite extravasation. Interstitial change in the l jing bases. IMPRESSION: G-tube, in good position. Reviewed, dictated and finalized at location K. IMPRESSION: G-tube, in good position.
--- NOTE | 2024-10-28 19:11 | PC.NURSE ---
Report received from LUIS De Los Santos. Assumed care of patient at this time. in room replacing G-tube.
--- NOTE | 2024-10-28 20:00 | ED_ITS ---
HPI - General Adult General Chief complaint: Unspecified Stated complaint: pulled g-tube, low o2 History of Present Illness HPI narrative: 73-year-old male presenting to the emergency department after displacing his PEG tube. Patient has a 16 [place] G-tube placed and has been recently dislodged multiple times. Patient is at his baseline mentation A&O x2. Patient is currently hospice patient [facility] at his half-way facility [facility] per his paperwork. Patient has no complaints at this time, on his baseline oxygen with no signs of injury or trauma. Related Data Home Medications ?Medication ?Instructions ?Recorded ?Confirmed ?Last Taken ?Type nitroglycerin 400 mcg/spray 1 spray translingual Q5M PRN Chest 07/21/20 03/25/24 Unknown History translingual Pain albuterol sulfate 2 puff inhalation Q4H PRN 03/08/24 03/25/24 Unknown History Shortness Of Breath fluticasone fur. 100 mcg-umeclid 1 inh inhalation DAILY 03/08/24 03/25/24 Unknown History 62.5 mcg-vilant 25 mcg inhalat.powder (Trelegy Ellipta) ipratropium-albuterol 1 vial inhalation TID 03/08/24 03/25/24 Unknown History bisacodyl 10 mg rectal suppository 10 mg RECTAL DAILY PRN Constipation 03/25/24 03/25/24 Unknown History naloxone 4 mg/actuation nasal spray 4 mg intranasal Q2M 03/25/24 03/25/24 Unknown History sodium phosphates 19 gram-7 118 ml RECTAL ONCE 03/25/24 03/25/24 Unknown History gram/118 mL enema (Fleet Enema) Allergies Allergy/AdvReac Type Severity Reaction Status Date / Time atorvastatin AdvReac Mild MADE ME Verified 07/09/24 16:37 SICK methocarbamol AdvReac Mild MADE ME Verified 07/09/24 16:37 SICK terbinafine AdvReac Mild MADE ME Verified 07/09/24 16:37 SICK Review of Systems Review of Systems: As reviewed above in HPI [facility] Past Medical History Medical History Chronic obstructive pulmonary disease Gastroesophageal reflux disease Thyroid cancer Adenomatous colon polyp Hyponatremia Rhabdomyolysis Lymphocytic esophagitis Nonerosive esophageal reflux disease [place] Coronary artery disease Peripheral neuropathy Basal cell carcinoma Hypothyroidism Lung cancer status post right upper lobe pneumonectomy Hypertension High cholesterol Surgical History Surgical History History of esophageal dilatation History of cholecystectomy History of cataract extraction with lens replacement (2015) History of four vessel coronary artery bypass graft (09/2002) History of bilateral inguinal hernia repair History of open reduction and internal fixation (ORIF) procedure (06/2022) repair right proximal humerus fracture History of coronary angioplasty History of ventral hernia repair (06/2006) gastric volvulus with ventral hernia repair History of medial meniscus repair of right knee (2005) History of hemorrhoidectomy History of bilateral carpal tunnel release History of pneumonectomy (2014) right upper lobe due to lung cancer History of colonoscopy History of esophagogastroduodenoscopy (EGD) (2006) Family History Family History Mother MVA (motor vehicle accident) Father Gunshot wound Sibling Heart disease Other Family history of cardiovascular disease Social History Social History Social History: Surrogate medical decision maker: Linwood Bergeron ([phone]), brother. Code status: Full code. Smoking packs per day: 1 Smoking cigarettes per day: 20.0 Years smoked: 50 Smoking pack-years: 50.00 Smoking status: Current every day smoker Second hand tobacco smoke exposure: Yes Additional smoking assessment comments: has cut down to 4-6 cigarettes a day Alcohol intake: former Alcohol use details: no alcohol since August 31, 1984 Substance use: never Do You Feel Safe in your Home?: Yes Lack of Transportation: No Lack of Food: Never True Current Housing: I Have Housing Concerned About Future Housing: No Difficulty Paying Gas/Electric Bills: No Difficulty Paying for Meds: No Currently Unemployed: No Education: Decline to Answer Difficulty w/ Childcare or Family Care: No Additional living arrangements comments: Lives alone. with 2 children. Currently at [facility]. 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 Spiritual care concerns: No Exam Narrative: GENERAL: Thin and frail, chronically ill-appearing but not any distress. HEAD: [Normocephalic, atraumatic.] EYES: [PERRLA and EOMI.] ENT: Nares clear, no rhinorrhea or epistaxis. Mucous membranes moist. NECK: Supple. CHEST: [Clear to auscultation. No respiratory distress.] HEART: [Regular rate and rhythm]. No murmur heard. [Normal peripheral pulses.] ABDOMEN: [Soft, nondistended], [nontender], [No rigidity or guarding] previous G-tube site without any erythema, exudates or tenderness without any G-tube present. EXTREMITIES: Normal range of motion. [No edema.] SKIN: Warm, dry, no rash. NEURO: [No focal deficits]. Alert and oriented x2, pleasant PSYCH: [Normal mood and affect.] Course Vital Signs Vital signs: Vital Signs Temperature 37.4 C 10/28/24 18:48 Pulse Rate 86 10/28/24 18:48 Respiratory Rate 20 10/28/24 18:48 Blood Pressure 128/70 10/28/24 18:48 Pulse Oximetry 94 10/28/24 18:48 Oxygen Delivery Nasal Cannula 10/28/24 18:48 Oxygen Flow Rate 3 10/28/24 18:48 Temperature 37.4 C 10/28/24 18:48 Pulse Rate 86 10/28/24 18:48 Respiratory Rate 20 10/28/24 18:48 Blood Pressure 128/70 10/28/24 18:48 Pulse Oximetry 94 10/28/24 18:48 Oxygen Delivery Nasal Cannula 10/28/24 18:48 Oxygen Flow Rate 3 10/28/24 18:48 Procedures Feeding Tube Replacement Feeding Tube #1: Feeding Tube Placement Date: 10/28/24 Feeding Tube Placement Time: 19:30 Type of Tube: gastrostomy Insertion Site Prior to Procedure: clean Tube Used for Reinsertion: other [place] Tube Size (F): 16 Balloon size (mL): 5 Verification of Placement: gastrografin injection Tube Secured by: tape/dressing Patient Tolerated Procedure: well and no complications Medical Decision Making MDM Narrative Medical decision making narrative: 73-year-old male presenting to the emergency department after displacing his PEG tube. Patient has a 16 [place] G-tube placed and has been recently dislodged multiple times. Patient is at his baseline mentation A&O x2. Patient is currently hospice patient under [facility] at his half-way facility [facility] per his paperwork. Patient has no complaints at this time, on his baseline oxygen with no signs of injury or trauma. G-tube was replaced at bedside without any difficulty. Postprocedural G-tube x- ray was obtained and appears normal. He will be discharged back to his half-way facility via EMS ambulance to continue hospice care there. Patient was comfortable with the plan and thankful. Vital Signs Vital Signs: Vital Signs Temperature 37.4 C 10/28/24 18:48 Pulse Rate 86 10/28/24 18:48 Respiratory Rate 20 10/28/24 18:48 Blood Pressure 128/70 10/28/24 18:48 Pulse Oximetry 94 10/28/24 18:48 Oxygen Delivery Nasal Cannula 10/28/24 18:48 Oxygen Flow Rate 3 10/28/24 18:48 Temperature 37.4 C 10/28/24 18:48 Pulse Rate 86 10/28/24 18:48 Respiratory Rate 20 10/28/24 18:48 Blood Pressure 128/70 10/28/24 18:48 Pulse Oximetry 94 10/28/24 18:48 Oxygen Delivery Nasal Cannula 10/28/24 18:48 Oxygen Flow Rate 3 10/28/24 18:48 Discharge Plan Discharge Clinical Impression: Malfunction of percutaneous endoscopic gastrostomy (PEG) tube Patient Disposition: NH [facility]/Asst Living Condition: Stable Instructions: Antibiotic Form Patient Language: Georgian Prescriptions: No Action nitroglycerin 400 mcg/spray spray,non-aerosol 1 spray translingual Q5M PRN (Reason: Chest Pain) Rx Instructions: do not exceed 3 doses per episode Trelegy Ellipta 100-62.5-25 mcg blister with device 1 inh INHALATION DAILY albuterol sulfate 2 puff inhalation Q4H PRN (Reason: Shortness Of Breath) ipratropium-albuterol 1 vial inhalation TID bisacodyl 10 mg Suppository 10 mg RECTAL DAILY PRN (Reason: Constipation) Rx Instructions: give if milk of magnesia doesn't work Fleet Enema 19-7 gram/118 mL Enema 118 ml RECTAL ONCE Rx Instructions: give if no results 1 day after suppository naloxone 4 mg/actuation [place],Non-Aerosol 4 mg INTRANASAL Q2M Rx Instructions: spray 1 dose into ONE nostril; alternate nostrils w each dose until help arrives acetaminophen [Nortemp] 160 mg/5 mL Suspension 650 mg feeding tube Q6H PRN (Reason: Pain Rated 1-3) Qty: 120 0RF polyethylene glycol 3350 [Miralax] 17 gram Powder In Packet 17 g feeding tube QAM PRN (Reason: Constipation) Qty: 30 0RF hydrocodone-acetaminophen 5-325 mg Tablet 1 tablet feeding tube Q6H PRN (Reason: Pain rated 4-10) Qty: 10 0RF levothyroxine 25 mcg Tablet 37.5 mcg feeding tube DAILY@0630 Qty: 45 0RF amoxicillin-pot clavulanate 875-125 mg tablet 1 tablet feeding tube Q12H Qty: 5 0RF polysaccharide iron complex 150 mg iron Capsule 150 mg feeding tube BID Qty: 60 0RF magnesium hydroxide [Milk of Magnesia] 400 mg/5 mL Suspension 400 mg feeding tube DAILY PRN (Reason: Constipation) Qty: 355 0RF Rx Instructions: give if no BM in 3 days baclofen 10 mg tablet 5 mg feeding tube TID PRN (Reason: muscle spasms) Qty: 30 0RF simvastatin 20 mg tablet 20 mg feeding tube DAILY Qty: 30 0RF levothyroxine [Synthroid] 150 mcg Tablet 150 mcg feeding tube DAILY@0630 Qty: 30 0RF magnesium citrate [Citroma] Solution 300 ml feeding tube DAILY PRN (Reason: Constipation) Qty: 296 0RF Rx Instructions: give if no results from enema aspirin 81 mg Tablet,Chewable 81 mg feeding tube DAILY Qty: 30 0RF escitalopram oxalate 20 mg Tablet 20 mg feeding tube QHS Qty: 30 0RF Saccharomyces boulardii 250 mg Capsule 250 mg feeding tube BID Qty: 30 0RF Rx Instructions: stop 12/3/24 Mucinex 600 mg G-tube BID Qty: 60 0RF Rx Instructions: Ends 12/2/24 benzonatate 100 mg G-tube Q8H PRN (Reason: Cough) Qty: 20 0RF omeprazole 40 mg G-tube BID Qty: 60 0RF sodium chloride 500 mg G-tube BID Qty: 60 0RF alprazolam 1 mg tablet 1 mg feeding tube TID PRN (Reason: anxiety) Qty: 10 0RF Follow-up/Referrals: PHYSICIAN,[employer]INE[employer] [Primary Care Provider] - Time of Disposition: 20:04
--- NOTE | 2024-10-28 20:20 | PC.NURSE ---
Attempted to call report to Jennifer, no answer and unable to leave a message. Will try again.
== END 2024-10-28 20:37 | disposition hospice, home (50) ==
PROVIDERS: Emergency Provider Student in an Organized Health Care Education/Training Program
DX: Z43.1 Encounter for attention to gastrostomy (principal); I25.10 Atherosclerotic heart disease of native coronary artery without angina pectoris; I10 Essential (primary) hypertension; J44.9 Chronic obstructive pulmonary disease, unspecified; E78.00 Pure hypercholesterolemia, unspecified; G62.9 Polyneuropathy, unspecified; K21.9 Gastro-esophageal reflux disease without esophagitis; Z99.81 Dependence on supplemental oxygen; Z98.61 Coronary angioplasty status; Z85.118 Personal history of other malignant neoplasm of bronchus and lung; Z85.828 Personal history of other malignant neoplasm of skin; Z85.850 Personal history of malignant neoplasm of thyroid; Z90.49 Acquired absence of other specified parts of digestive tract; Z96.1 Presence of intraocular lens; Z98.49 Cataract extraction status, unspecified eye; Z90.2 Acquired absence of lung [part of]; F17.210 Nicotine dependence, cigarettes, uncomplicated; Z79.899 Other long term (current) drug therapy; Z79.82 Long term (current) use of aspirin
CPT/HCPCS: 43762; 99283